=== PATIENT | female | born 1940 | race Caucasian/White ===

== ENCOUNTER 2017-06-10 15:10 | Inpatient (IN) | payer OTHER, SELFPAY ==
[2017-06-10 15:12] VITALS: BP 163/86; PULSE 65; RESP 16; TEMP 36.2; O2SAT 95; BMI 27.4
--- NOTE | 2017-06-10 16:34 | RAD_ITS ---
STUDY: X-RAY - RIGHT HAND REASON FOR EXAM: Female, 76 years old. INFECTION, DISTAL INDEX FINGER TECHNIQUE: 3 view(s) of the hand. COMPARISON: None. FINDINGS: There is prominent soft tissue swelling associated with the distal phalanx of the second digit. There is severe osteoarthritic change in association with the distal interphalangeal joint with prominent osteophytes. I do not identify underlying osseous erosion. No definitive sign of osteomyelitis. The remainder of the interphalangeal joints demonstrate diffuse joint space loss with marginal osteophytes most evident in association with the distal interphalangeal joints of the fourth and fifth digits. At the metacarpal phalangeal joints are preserved. The visualized carpus is unremarkable. The visualized radiocarpal articulation is unremarkable. Vascular calcifications are present. Bony demineralization noted. RAD/Hand Min 3 Views IMPRESSION: Severe osteoarthritic change of the distal interphalangeal joint of the second digit. I do not identify osseous erosion to suggest underlying osteomyelitis though MRI or three-phase bone scan would have greater sensitivity to detection of underlying osteomyelitis. See above. Electronically Signed: Charla Negrete MD at 17:50 EDT Tel , Service support ,
--- NOTE | 2017-06-10 16:36 | ED.VISSUMM ---
- ER Visit Summary Date of Service: 06/10/17 Chief Complaint: Finger infection History of Present Illness: The patient is a 76 F who states that 2 weeks ago she had a break in her right index fingernail. She was making the bed and caught and tore the nail. She remove the nail completely. Since that time she has been doing Betadine and water soaks. She states now the finger is swollen red warm there is a red streak going up her arm. She notes no drainage. She notes the tip is white. She went to the urgent care in the doctor there told her she may have exposed bone and sent her to the emergency room. In December of last year she had a total knee replacement by Dr. Begum. She is a diabetic and has lost several toes to staph infection. She also notes a history of MRSA, rheumatoid arthritis. Physical Examination: Afebrile vital signs are stable Gen: Well-nourished well-developed Head: Normocephalic atraumatic Eyes: Perrl EOMI ENT: TMs clear no rhinorrhea moist mucous membranes Neck: Supple no lymphadenopathy no JVD nontender CVS: Regular rate rhythm no murmurs normal S1-S2 Respiratory: No distress clear to auscultation bilaterally chest nontender Abdomen: Soft nontender nondistended normal bowel sounds no masses Back: Nontender Extremity: Right index finger is swollen. The tip of the finger is white. There is lymphangitic streaking going up the dorsum of the right forearm. There is increased warmth. There is a small eschar right at the tip of the finger. The right knee has a well-healed incision. There is no overlying erythema and the joint is nontender. Skin: Please see finger exam Neuro: alert orientated ?3 CN II-XII intact normal strength sensation reflexes gait cerebellar Psych: Normal affect normal mood Test Results: CBC with a white count 13.4. Creatinine 1.27. Blood cultures were obtained. CRP at 49.5. Wound culture and MRSA by PCR obtained from the wound. Hand films demonstrated no air or obvious osteomyelitis. Emergency Department Course and Treatment: She received a dose of IV vancomycin after cultures. I spoke with Dr. Raya for was to orthopedics covering for Dr. Begum, Dr. Jimenez for plastic surgery, Dr. Mccallum. He will be admitted to internal medicine with Dr. Jimenez consulting. Impression: 1. Right index finger diabetic infection with lymphangitis This note was generated with [employer] dictation software. It may contain incorrect words, spelling, and punctuation that were not noted in review of the chart prior to signing ED Disposition - Plan for ED Patient: Chief Complaint: Wound Referrals: Kelsy Mensah MD [Primary Care Provider] -
[2017-06-10 17:30] LABS: Absolute Lymphocyte Count 3.44 X10^3/ul (0.83-4.51); Absolute Neutrophil Count 8.4 X10^3/uL (2.0-7.7); Basophil# 0.02 X10^3/uL; Basophil% 0.1 % (0-1); Eosinophil# 0.15 X10^3/uL; Eosinophils% 1.1 % (0-5); Hematocrit 41.8 % (37-47); Hemoglobin 14.2 g/dl (12.0-15.0); Lymphocyte # 3.44 X10^3/ul (4.0); Lymphocyte % 25.7 % (19-41); Mean Corpuscular Hgb 29.7 pg (27.0-32.0); Mean Corpuscular Volume 87.4 fL (81-99); Mean Platelet Vol. 10.9 fl (6.2-12.0); Monocyte# 1.36 X10^3/uL; Monocyte% 10.1 % (0-10); Neutrophil # 8.39 X10^3/uL (2.7-7.7); Neutrophil % 62.6 % (47-70); POSITIVE COUNT NO; POSITIVE DIFFERENTIAL NO; POSITIVE MORPHOLOGY NO; Platelet Count 213 K/mm3 (150-450); RBC Distribution Width CV 14.1 % (11.6-14.6); RBC Distribution Width SD 44.9 fl (35.1-43.9); Red Blood Count 4.78 M/mm3 (4.2-5.4); White Blood Count 13.4 K/mm3 (4.4-11.0)
[2017-06-10 17:39] LABS: ALB/GLOB Ratio 0.9 RATIO (0.9-2.4); AST(SGOT) 16 U/L (15-37); Alanine Aminotransfer ALT/SGPT 18 U/L (13-56); Albumin, Serum 3.7 g/dL (3.2-5.0); Alkaline Phosphatase 73 U/L (45-117); Anion Gap 10 (5-15); BUN 20 mg/dL (7-18); BUN/Creat Ratio 15.7 RATIO (10-20); Calcium,Total 9.4 mg/dL (8.5-10.1); Chloride 104 mmol/L (98-107); Creatinine, Serum 1.27 mg/dL (0.55-1.02); EST Glomerular Filtration Rate 43 mL/min (>60); Est Glom Filt Rate - Afr Amer 53 mL/min (>60); Estimated Creatinine Clearance 33.91 ml/min; Globulin 4.3 g/dL (2.2-4.2); Glucose 134 mg/dL (74-106); Potassium 3.9 mmol/L (3.5-5.1); Sodium Level 138 mmol/L (136-145)
[2017-06-10 17:54] LABS: Erythrocyte Sedimentation Rate 45 mm/hr (0-30)
[2017-06-10 18:29] VITALS: BP 192/68; PULSE 61; RESP 14; TEMP 36.8; O2SAT 96
--- NOTE | 2017-06-10 18:29 | ED.RN ---
182-Patient and family member both state that BP elevates when in ED due to nerves and that it always comes down before she leaves. Also states normally takes Atenolol around 1700 hrs.
[2017-06-10 19:17] LABS: M R Staph aureus DNA By PCR Negative (Negative); Probe Check PASS; Staph aureus DNA By PCR NEGATIVE (Negative)
[2017-06-10 19:33] VITALS: BMI 27.5
--- NOTE | 2017-06-10 19:39 | PCM.HP.STD ---
Problem List (1) Cellulitis of right index finger Status: Acute (2) CKD (chronic kidney disease), stage III Status: Chronic (3) CAD (coronary artery disease) Status: Chronic Qualifiers: Coronary Disease-Associated Artery/Lesion type: bypass graft [place] vs. transplanted heart: [place] heart Associated angina: without angina Qualified Code(s): I25.810 - Atherosclerosis of coronary artery bypass graft(s) without angina pectoris (4) Osteoarthritis Status: Chronic Qualifiers: Osteoarthritis location: unspecified site Osteoarthritis type: primary Qualified Code(s): M19.91 - Primary osteoarthritis, unspecified site (5) Hypertension Status: Chronic (6) Peripheral arterial disease Status: Chronic (7) Type 2 diabetes mellitus Status: Chronic History of Present Illness Date of Admission: 06/10/17 Chief Complaint: Right index finger swelling and erythema The patient is a 76 year old F who approximately 10 days ago tore part of her right index finger fingernail on a bed sheet. She clipped it off but there was a wound. Patient was treating it with Betadine. Yesterday it became much more erythematous and swollen that persisted today. 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 Patient presented to the emergency room for concern for cellulitis. Patient was treated with IV vancomycin. Patient had a hand x-ray that showed severe osteoarthritis of the DIP no obvious ostium mellitus was noted. [] Past Medical History Past Medical History (Chronic Problems): Chronic Problems CKD (chronic kidney disease), stage III (Chronic) CAD (coronary artery disease) (Chronic) Osteoarthritis (Chronic) CKD (chronic kidney disease) (Chronic) History of MRSA infection (Chronic) Osteomyelitis of left foot (Chronic) Hypertension (Chronic) Peripheral arterial disease (Chronic) Type 2 diabetes mellitus (Chronic) Rheumatoid arthritis (Chronic) Allergies adhesive Allergy (Verified 12/09/16 10:08) Unknown red skin, uses paper tape and is okay with this atorvastatin calcium [From Lipitor] Allergy (Verified 12/09/16 10:08) Unknown joint pain bacitracin [From Neosporin ([id number])] Allergy (Verified 12/09/16 10:08) Unknown rash bacitracin zinc [From Neosporin ([id number])] Allergy (Verified 12/09/16 10:08) Unknown rash fenofibrate nanocrystallized [From Tricor] Allergy (Verified 12/09/16 10:08) Unknown upset gi or muscle pain fenofibrate,micronized [From Tricor] Allergy (Verified 12/09/16 10:08) Unknown flurbiprofen Allergy (Verified 12/09/16 10:08) Unknown upset stomach gemfibrozil Allergy (Verified 12/09/16 10:08) Unknown upset stomach glipizide [From Glucotrol] Allergy (Verified 12/09/16 10:08) Unknown dizzy, upset gi neomycin sulfate [From Neosporin ([id number])] Allergy (Verified 12/09/16 10:08) Unknown rash polymyxin B [From Neosporin ([id number])] Allergy (Verified 12/09/16 10:08) Unknown rash pravastatin Adverse Reaction (Verified 12/09/16 11:56) Other MUSCLE PAIN Home Medications: Ambulatory Orders Medication Instructions Recorded Amlodipine [Norvasc] 5 mg PO DAILY 08/26/15 Insulin Glargine [Lantus SoloStar 12 units SC QHS 08/26/15 Pen] Lisinopril [Zestril] 20 mg PO DAILY 08/26/15 Metformin HCl [Glucophage] 500 mg PO TIDCM 08/26/15 glyBURIDE [Micronase] 5 mg PO DAILY@0800 08/26/15 Ascorbic Acid [Vitamin C] 500 mg PO DAILY 12/09/16 Atenolol [Tenormin (beta charlie)] 50 mg PO BID 12/09/16 Cholecalciferol (Vitamin D3) 1,000 unit PO DAILY 12/09/16 [Vitamin D3] Cyanocobalamin (Vitamin B-12) 1,000 mcg PO DAILY 12/09/16 [Vitamin B-12] Multivitamin [Multiple Vitamins] 1 each PO DAILY 12/09/16 [place]-3 Fatty Acids/Fish Oil 1 each PO BID 12/09/16 [[place] 3 Fish Oil Softgel] Furosemide [Lasix] 20 mg PO QODAY 12/25/16 Acetaminophen [Tylenol] 1,000 mg PO Q8 #90 tablet 12/26/16 Aspirin 325 mg PO BIDCM #30 tablet 12/26/16 Famotidine [Pepcid] 20 mg PO DAILY #30 tablet 12/26/16 Oxycodone [Oxyir] 5 - 10 mg PO Q4H PRN PRN #80 tablet 12/26/16 Senna/Docusate Sodium [Senokot-S] 2 tablet PO BID #20 tablet 12/26/16 Surgical History: cataract, cholecystectomy, hysterectomy, total knee arthroplasty - Right, - - Foot bunion surgery bilaterally, hammertoe surgery, left carotid endarterectomy, peripheral vascular disease surgery both legs, recent left foot partial TMA. Left great toe amputation. 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 Denies: Head Aches, Sinus Congestion, Sinus Drainage Cardiovascular: Denies: Chest Pain, Palpitations Respiratory: Denies: Cough, Shortness of breath at rest, Sputum production Gastrointestinal: Denies: Abdominal Pain, Nausea, Vomiting Genitourinary: Denies: Dysuria Musculoskeletal: Denies: Joint Pain, Joint Tenderness Skin: Reports: - - Erythema and swelling of the distal right index finger., - - Redness in upper extremities more so on the right and states that she gets this when she gets her blood pressure checked. Patient states that she had a sleeve for gown her blood pressure was checked and but does get this when she does have the blood pressure checks. No itching. Neurological: Reports: - - Paresthesias in her fingers and toes chronically Psychiatric: Denies: Anxiety, Depression Endocrine: Denies: Change in Body Habitus Hematologic/ Lymphatic: Denies: Easy Bruising, Easy Bleeding, Hx of blood clot VTE Information - Inpt Only VTE Present on Admission: No VTE Pharm Prophylaxis ordered?: Yes Patient Problems: Active and Suspected Problems Cellulitis of right index finger (Acute) - Physical Exam General: Alert, Cooperative, No apparent distress HEENT: Atraumatic, Normocephalic Oral: Moist Mucosa, No Gingival or Mucosal Lesions/ Ulcerations Neck: No Nodes, Thyroid Normal Size and Texture Lungs: Clear to auscultation, Normal air movement, No rhonchi, No wheeze Cardiovascular: Regular rate, Regular Rhythm, Normal S1, Normal S2, No murmurs Abdomen: Bowel Sounds Present, Soft, Non Tender, Non-Distended, No Hepato-splenomegaly Extremities: No Calf Tenderness, Edema - The distal right index finger. Skin: - - Erythema and swelling of the distal right index finger with lymphangitis upon the volar aspects of the arm. Slight erythema on bilateral upper extremities that was almost petechial in nature. Seem to be an area of demarcation on the right upper extremity where her gown sleeve was. Patient stated that it developed after her blood pressure cuff inflated and deflated. States that she has had this before. Musculoskeletal: No Tenderness to Palpation of Joints or Extremities, No Muscle Wasting, Arthritic Changes Neurological: Sensory exam intact to light touch and pain, Coordination normal Psych/Mental Status: Normal Affect, Appropriate Vital Signs Temp Pulse Resp BP Pulse Ox 36.8 C 61 14 192/68 H 96 06/10/17 18:29 06/10/17 18:29 06/10/17 18:29 06/10/17 18:29 06/10/17 18:29 Oxygen Delivery Method Room Air Weight: 74.843 kg Body Mass Index (BMI) 27.4 Finger Stick Blood Glucose 235 Laboratory Tests Past 24 Hrs 06/10/17 06/10/17 06/10/17 17:00 17:00 17:22 WBC 13.4 H RBC 4.78 Hgb 14.2 Hct 41.8 MCV 87.4 MCH 29.7 MCHC 34.0 RDW 14.1 RDW Differential 44.9 H Plt Count 213 MPV 10.9 Immature Gran % (Auto) 0.400 Neut % (Auto) 62.6 Lymph % (Auto) 25.7 Mccormick % (Auto) 10.1 H Eos % (Auto) 1.1 Baso % (Auto) 0.1 Absolute Neuts (auto) 8.4 H Absolute Lymphs (auto) 3.44 Total Counted Not Reportable ESR 45 H Sodium 138 Potassium 3.9 Chloride 104 Carbon Dioxide 24.0 Anion Gap 10 BUN 20 H Creatinine 1.27 H Estim Creat Clear Calc 33.91 Est GFR (MDRD) Af Amer 53 L Est GFR (MDRD) Non-Af 43 L BUN/Creatinine Ratio 15.7 Glucose 134 H Calcium 9.4 Total Bilirubin 1.00 AST 16 ALT 18 Alkaline Phosphatase 73 C-React Prot Ext Range 49.50 H Total Protein 8.0 Albumin 3.7 Globulin 4.3 H Albumin/Globulin Ratio 0.9 S.aureus Protein A PCR NEGATIVE MRSA (PCR) Negative Clinical Impression(s) from Imaging Studies Hand X-Ray 06/10/17 16:34 IMPRESSION: Severe osteoarthritic change of the distal interphalangeal joint of the second digit. I do not identify osseous erosion to suggest underlying osteomyelitis though MRI or three-phase bone scan would have greater sensitivity to detection of underlying osteomyelitis. See above. Electronically Signed: Charla Negrete MD at 17:50 EDT Tel , Service support , Assessment/Plan Active and Suspected Problems Cellulitis of right index finger (Acute) 1. Right index finger cellulitis Given the rapid onset, concern is for MRSA, to which patient has had before in her toes. Patient will continue with vancomycin for now. Follow-up cultures when they come back and adjust antibiotics accordingly. Given the significant swelling the patient has a would be concerning for osteomyelitis. I recommended an MRI for the patient to identify that to see if there is osteomyelitis and if surgery would be necessary. Dr. Jimenez, of plastics, has been notified by the ER and I will see the patient in consultation. 2. Chronic kidney disease stage III: Stable at this time. Avoid nephrotoxic agents. 3. Diabetes mellitus type 2 Continue with Levemir, metformin and glyburide. Add moderate dose sliding scale as well. 4. DVT prophylaxis with low molecular weight heparin 5. Advanced care planning: Discussed the patient in regards to aggressiveness of care in regards to acute respiratory failure cardiopulmonary arrest. Patient wishes to be full CODE STATUS and is okay with mechanical ventilation. This note was generated with [employer] dictation software. It may contain incorrect words, spelling, and punctuation that were not noted in checking the note before signing. Code Visit Inpatient E&M: 76318 Init Hosp L3
[2017-06-10 19:47] VITALS: BP 167/63; PULSE 59; RESP 16; O2SAT 97
--- NOTE | 2017-06-10 19:49 | HP.PCM_ITS ---
Problem List (1) Cellulitis of right index finger Status: Acute (2) CKD (chronic kidney disease), stage III Status: Chronic (3) CAD (coronary artery disease) Status: Chronic Qualifiers: Coronary Disease-Associated Artery/Lesion type: bypass graft [place] vs. transplanted heart: [place] heart Associated angina: without angina Qualified Code(s): I25.810 - Atherosclerosis of coronary artery bypass graft(s) without angina pectoris (4) Osteoarthritis Status: Chronic Qualifiers: Osteoarthritis location: unspecified site Osteoarthritis type: primary Qualified Code(s): M19.91 - Primary osteoarthritis, unspecified site (5) Hypertension Status: Chronic (6) Peripheral arterial disease Status: Chronic (7) Type 2 diabetes mellitus Status: Chronic History of Present Illness Date of Admission: 06/10/17 Chief Complaint: Right index finger swelling and erythema The patient is a 76 year old F who approximately 10 days ago tore part of her right index finger fingernail on a bed sheet. She clipped it off but there was a wound. Patient was treating it with Betadine. Yesterday it became much more erythematous and swollen that persisted today. 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 Patient presented to the emergency room for concern for cellulitis. Patient was treated with IV vancomycin. Patient had a hand x-ray that showed severe osteoarthritis of the DIP no obvious ostium mellitus was noted. [] Past Medical History Past Medical History (Chronic Problems): Chronic Problems CKD (chronic kidney disease), stage III (Chronic) CAD (coronary artery disease) (Chronic) Osteoarthritis (Chronic) CKD (chronic kidney disease) (Chronic) History of MRSA infection (Chronic) Osteomyelitis of left foot (Chronic) Hypertension (Chronic) Peripheral arterial disease (Chronic) Type 2 diabetes mellitus (Chronic) Rheumatoid arthritis (Chronic) Allergies adhesive Allergy (Verified 12/09/16 10:08) Unknown red skin, uses paper tape and is okay with this atorvastatin calcium [From Lipitor] Allergy (Verified 12/09/16 10:08) Unknown joint pain bacitracin [From Neosporin ([id number])] Allergy (Verified 12/09/16 10:08) Unknown rash bacitracin zinc [From Neosporin ([id number])] Allergy (Verified 12/09/16 10: 08) Unknown rash fenofibrate nanocrystallized [From Tricor] Allergy (Verified 12/09/16 10:08) Unknown upset gi or muscle pain fenofibrate,micronized [From Tricor] Allergy (Verified 12/09/16 10:08) Unknown flurbiprofen Allergy (Verified 12/09/16 10:08) Unknown upset stomach gemfibrozil Allergy (Verified 12/09/16 10:08) Unknown upset stomach glipizide [From Glucotrol] Allergy (Verified 12/09/16 10:08) Unknown dizzy, upset gi neomycin sulfate [From Neosporin ([id number])] Allergy (Verified 12/09/16 10: 08) Unknown rash polymyxin B [From Neosporin ([id number])] Allergy (Verified 12/09/16 10:08) Unknown rash pravastatin Adverse Reaction (Verified 12/09/16 11:56) Other MUSCLE PAIN Home Medications: Ambulatory Orders Medication Instructions Recorded Amlodipine [Norvasc] 5 mg PO DAILY 08/26/15 Insulin Glargine [Lantus SoloStar 12 units SC QHS 08/26/15 Pen] Lisinopril [Zestril] 20 mg PO DAILY 08/26/15 Metformin HCl [Glucophage] 500 mg PO TIDCM 08/26/15 glyBURIDE [Micronase] 5 mg PO DAILY@0800 08/26/15 Ascorbic Acid [Vitamin C] 500 mg PO DAILY 12/09/16 Atenolol [Tenormin (beta charlie)] 50 mg PO BID 12/09/16 Cholecalciferol (Vitamin D3) 1,000 unit PO DAILY 12/09/16 [Vitamin D3] Cyanocobalamin (Vitamin B-12) 1,000 mcg PO DAILY 12/09/16 [Vitamin B-12] Multivitamin [Multiple Vitamins] 1 each PO DAILY 12/09/16 [place]-3 Fatty Acids/Fish Oil 1 each PO BID 12/09/16 [[place] 3 Fish Oil Softgel] Furosemide [Lasix] 20 mg PO QODAY 12/25/16 Acetaminophen [Tylenol] 1,000 mg PO Q8 #90 tablet 12/26/16 Aspirin 325 mg PO BIDCM #30 tablet 12/26/16 Famotidine [Pepcid] 20 mg PO DAILY #30 tablet 12/26/16 Oxycodone [Oxyir] 5 - 10 mg PO Q4H PRN PRN #80 tablet 12/26/16 Senna/Docusate Sodium [Senokot-S] 2 tablet PO BID #20 tablet 12/26/16 Surgical History: cataract, cholecystectomy, hysterectomy, total knee arthroplasty - Right, - - Foot bunion surgery bilaterally, hammertoe surgery, left carotid endarterectomy, peripheral vascular disease surgery both legs, recent left foot partial TMA. Left great toe amputation. Right third toe amputation Psychiatric History: No pertinent psych hx [employer] History: No pertinent [employer]RA[employer] history Lives: With Family Smoking Status: Never smoker Tobacco Use: Non-smoker Alcohol: None Drugs: None - *Family History Maternal History Items: No pertinent history Paternal History Items: No pertinent history Sibling History Items: No pertinent history Review of Systems Constitutional: Denies: Chills, Fever, Weight Change Eyes: Denies: Blurred vision, Double vision HEENT: Reports: Hearing Changes - Hard of hearing out of the left ear. Denies: Head Aches, Sinus Congestion, Sinus Drainage Cardiovascular: Denies: Chest Pain, Palpitations Respiratory: Denies: Cough, Shortness of breath at rest, Sputum production Gastrointestinal: Denies: Abdominal Pain, Nausea, Vomiting Genitourinary: Denies: Dysuria Musculoskeletal: Denies: Joint Pain, Joint Tenderness Skin: Reports: - - Erythema and swelling of the distal right index finger., - - Redness in upper extremities more so on the right and states that she gets this when she gets her blood pressure checked. Patient states that she had a sleeve for gown her blood pressure was checked and but does get this when she does have the blood pressure checks. No itching. Neurological: Reports: - - Paresthesias in her fingers and toes chronically Psychiatric: Denies: Anxiety, Depression Endocrine: Denies: Change in Body Habitus Hematologic/ Lymphatic: Denies: Easy Bruising, Easy Bleeding, Hx of blood clot VTE Information - Inpt Only VTE Present on Admission: No VTE Pharm Prophylaxis ordered?: Yes Patient Problems: Active and Suspected Problems Cellulitis of right index finger (Acute) - Physical Exam General: Alert, Cooperative, No apparent distress HEENT: Atraumatic, Normocephalic Oral: Moist Mucosa, No Gingival or Mucosal Lesions/ Ulcerations Neck: No Nodes, Thyroid Normal Size and Texture Lungs: Clear to auscultation, Normal air movement, No rhonchi, No wheeze Cardiovascular: Regular rate, Regular Rhythm, Normal S1, Normal S2, No murmurs Abdomen: Bowel Sounds Present, Soft, Non Tender, Non-Distended, No Hepato- splenomegaly Extremities: No Calf Tenderness, Edema - The distal right index finger. Skin: - - Erythema and swelling of the distal right index finger with lymphangitis upon the volar aspects of the arm. Slight erythema on bilateral upper extremities that was almost petechial in nature. Seem to be an area of demarcation on the right upper extremity where her gown sleeve was. Patient stated that it developed after her blood pressure cuff inflated and deflated. States that she has had this before. Musculoskeletal: No Tenderness to Palpation of Joints or Extremities, No Muscle Wasting, Arthritic Changes Neurological: Sensory exam intact to light touch and pain, Coordination normal Psych/Mental Status: Normal Affect, Appropriate Vital Signs Temp Pulse Resp BP Pulse Ox 36.8 C 61 14 192/68 H 96 06/10/17 18:29 06/10/17 18:29 06/10/17 18:29 06/10/17 18:29 06/10/17 18:29 Oxygen Delivery Method Room Air Weight: 74.843 kg Body Mass Index (BMI) 27.4 Finger Stick Blood Glucose 235 Laboratory Tests Past 24 Hrs 06/10/17 06/10/17 06/10/17 17:00 17:00 17:22 WBC 13.4 H RBC 4.78 Hgb 14.2 Hct 41.8 MCV 87.4 MCH 29.7 MCHC 34.0 RDW 14.1 RDW Differential 44.9 H Plt Count 213 MPV 10.9 Immature Gran % (Auto) 0.400 Neut % (Auto) 62.6 Lymph % (Auto) 25.7 Dunn % (Auto) 10.1 H Eos % (Auto) 1.1 Baso % (Auto) 0.1 Absolute Neuts (auto) 8.4 H Absolute Lymphs (auto) 3.44 Total Counted Not Reportable ESR 45 H Sodium 138 Potassium 3.9 Chloride 104 Carbon Dioxide 24.0 Anion Gap 10 BUN 20 H Creatinine 1.27 H Estim Creat Clear Calc 33.91 Est GFR (MDRD) Af Amer 53 L Est GFR (MDRD) Non-Af 43 L BUN/Creatinine Ratio 15.7 Glucose 134 H Calcium 9.4 Total Bilirubin 1.00 AST 16 ALT 18 Alkaline Phosphatase 73 C-React Prot Ext Range 49.50 H Total Protein 8.0 Albumin 3.7 Globulin 4.3 H Albumin/Globulin Ratio 0.9 S.aureus Protein A PCR NEGATIVE MRSA (PCR) Negative Clinical Impression(s) from Imaging Studies Hand X-Ray 06/10/17 16:34 IMPRESSION: Severe osteoarthritic change of the distal interphalangeal joint of the second digit. I do not identify osseous erosion to suggest underlying osteomyelitis though MRI or three-phase bone scan would have greater sensitivity to detection of underlying osteomyelitis. See above. Electronically Signed: Charla Negrete MD at 17:50 EDT Tel , Service support , Assessment/Plan Active and Suspected Problems Cellulitis of right index finger (Acute) 1. Right index finger cellulitis * Given the rapid onset, concern is for MRSA, to which patient has had before in her toes. * Patient will continue with vancomycin for now. Follow-up cultures when they come back and adjust antibiotics accordingly. * Given the significant swelling the patient has a would be concerning for osteomyelitis. I recommended an MRI for the patient to identify that to see if there is osteomyelitis and if surgery would be necessary. * Dr. Jimenez, of plastics, has been notified by the ER and I will see the patient in consultation. 2. Chronic kidney disease stage III: * Stable at this time. Avoid nephrotoxic agents. 3. Diabetes mellitus type 2 * Continue with Levemir, metformin and glyburide. * Add moderate dose sliding scale as well. 4. DVT prophylaxis with low molecular weight heparin 5. Advanced care planning: Discussed the patient in regards to aggressiveness of care in regards to acute respiratory failure cardiopulmonary arrest. Patient wishes to be full CODE STATUS and is okay with mechanical ventilation. This note was generated with [employer] dictation software. It may contain incorrect words, spelling, and punctuation that were not noted in checking the note before signing. Code Visit Inpatient E&M: 62675 Init Hosp L3
[2017-06-10 19:57] VITALS: BMI 27.3
[2017-06-10 20:00] VITALS: BP 182/69; PULSE 60; RESP 16; TEMP 36.5; O2SAT 95
[2017-06-10] MEDS: Atenolol 50 MG Tablet PO (22:50)
[2017-06-10 23:28] VITALS: PULSE 60; RESP 16; O2SAT 95
[2017-06-10 23:45] LABS: Bedside Glucose 273 mg/dL (70-110)
[2017-06-11] VITALS (7 sets, daily range): BP systolic 152–180; BP diastolic 60–106; PULSE 57–61; RESP 16–18; TEMP 36.6–36.8; O2SAT 94–97; BMI 27.3
[2017-06-11] MEDS: Lisinopril 20 MG Tablet PO (05:39)
[2017-06-11] MEDS: amLODIPine 5 MG Tablet PO (05:40)
[2017-06-11] MEDS: Atenolol 50 MG Tablet PO ×2 (05:40→22:22)
[2017-06-11 06:01] LABS: Absolute Lymphocyte Count 2.25 X10^3/ul (0.83-4.51); Absolute Neutrophil Count 5.6 X10^3/uL (2.0-7.7); Basophil# 0.03 X10^3/uL; Basophil% 0.3 % (0-1); Eosinophil# 0.23 X10^3/uL; Eosinophils% 2.4 % (0-5); Hematocrit 38.3 % (37-47); Hemoglobin 13.4 g/dl (12.0-15.0); Lymphocyte # 2.25 X10^3/ul (4.0); Lymphocyte % 23.9 % (19-41); Mean Corpuscular Hgb 30.5 pg (27.0-32.0); Mean Platelet Vol. 10.8 fl (6.2-12.0); Monocyte% 13.8 % (0-10); Neutrophil # 5.55 X10^3/uL (2.7-7.7); Neutrophil % 59.2 % (47-70); Platelet Count 205 K/mm3 (150-450); RBC Distribution Width CV 13.9 % (11.6-14.6); RBC Distribution Width SD 43.7 fl (35.1-43.9); White Blood Count 9.4 K/mm3 (4.4-11.0)
[2017-06-11 06:05] LABS: POSITIVE COUNT NO; POSITIVE DIFFERENTIAL NO; POSITIVE MORPHOLOGY NO
[2017-06-11 06:46] LABS: Bedside Glucose 110 mg/dL (70-110)
--- NOTE | 2017-06-11 07:08 | MRI_ITS ---
STUDY: MRI RIGHT HAND REASON FOR EXAM: Female, 76 years old. RIGHT INDEX FINGER CELLULITIS; SWELLING/REDNESS DISTAL FINGER; TORE FINGERNAIL APPROX 10 DAYS AGO TECHNIQUE: Standardized fat and water weighted pulse sequences were obtained in all 3 orthogonal planes. LOC RIGHT COR T1 COR STIR SAG T2 Ax T1 Screen Save AX STIR COMPARISON: Plain film exam June 10, 2017 FINDINGS: Attention was made to the second digit. As previously noted there is severe osteoarthritic change in association with the distal interphalangeal joint of the first digit. On MRI it appears that there is decreased signal intensity within the bone marrow of the distal phalanx of this digit with increased signal intensity on STIR imaging. There appears diffuse soft tissue swelling. I also note that there is abnormal signal intensity seen in association with the distal phalanx of the fourth digit also noted is decreased in signal intensity on T1-weighted imaging and increased signal intensity on T2-weighted imaging. There appears diffuse soft tissue swelling. There is no evidence of a soft tissue abscess. The remainder the digits demonstrate normal bone marrow signal intensity though diffuse osteoarthritic changes are present with articular surface osteophytes in association with the interphalangeal joints. There also appears a small degenerative subchondral cyst of the head of the first metacarpal. MRI/Upper Ext/No Jt/ wo IMPRESSION: There are bone marrow changes seen associated with the distal phalanx of the second and fourth digits that are compatible with underlying osteomyelitis. Electronically Signed: Charla Negrete MD at 14:29 EDT Tel , Service support ,
[2017-06-11 08:30] LABS: Hemoglobin A1c 7.4 % (4.2-6.3)
[2017-06-11 09:27] LABS: Anion Gap 8 (5-15); BUN 18 mg/dL (7-18); BUN/Creat Ratio 14.5 RATIO (10-20); Calcium,Total 9.2 mg/dL (8.5-10.1); Chloride 106 mmol/L (98-107); Creatinine, Serum 1.24 mg/dL (0.55-1.02); EST Glomerular Filtration Rate 45 mL/min (>60); Est Glom Filt Rate - Afr Amer 54 mL/min (>60); Estimated Creatinine Clearance 34.73 ml/min; Glucose 147 mg/dL (74-106); Potassium 4.5 mmol/L (3.5-5.1); Prealbumin 20.1 mg/dL (20.0-40.0); Sodium Level 136 mmol/L (136-145)
--- NOTE | 2017-06-11 10:14 | PCM.RX.CS ---
Consult Pharmacy has been consulted to manage selected antiobiotic: Vancomycin Type of Consult: New start Suspected Infection: Skin/Soft tissue Prior Doses of Antibiotics Received/Current Regimen: Medications Vancomycin HCl (Vancomycin) 1,000 mg in 200 mls @ 200 mls/hr IV X1 ONE Stop: 06/10/17 17:59 Last Admin: 06/10/17 17:42 Dose: 200 mls/hr Labs: Sodium 136 mmol/L (136-145) 06/11/17 08:48 Potassium 4.5 mmol/L (3.5-5.1) 06/11/17 08:48 Chloride 106 mmol/L (98-107) 06/11/17 08:48 Carbon Dioxide 22.0 mmol/L (21.0-32.0) 06/11/17 08:48 Anion Gap 8 (5-15) 06/11/17 08:48 BUN 18 mg/dL (7-18) 06/11/17 08:48 Creatinine 1.24 mg/dL (0.55-1.02) H 06/11/17 08:48 Est GFR (MDRD) Af Amer 54 mL/min (>60) L 06/11/17 08:48 Est GFR (MDRD) Non-Af 45 mL/min (>60) L 06/11/17 08:48 BUN/Creatinine Ratio 14.5 RATIO (10-20) 06/11/17 08:48 Glucose 147 mg/dL (74-106) H 06/11/17 08:48 Weight used for dosin kg Estimated Creatinine Clearance: 35 mL/min Goal Trough: 10-15 mcg/mL Pharmacy Plan for Drug Dosing: Patient received vancomycin 1000mg IV x1, recommend to continue 1000mg IV q24h. Check prior to 4th dose. Pharmacy Service will continue to monitor and adjust dosing as required. Follow-Up Labs: Trough Vancomycin Labs to be done on [date and time ordered]: 06/13/17 @ 1300
[2017-06-11] MEDS: Senna/Docusate Sodium 1 Tablet 2 TABLET PO ×2 (11:52→22:22)
[2017-06-11] MEDS: Cyanocobalamin 500 MCG Tablet 1000 MCG PO (11:53)
[2017-06-11] MEDS: Ascorbic Acid 500 MG Tablet PO (11:53)
[2017-06-11] MEDS: Multivitamins,Therapeutic Tablet 1 TABLET PO (11:53)
[2017-06-11] MEDS: Enoxaparin 40 MG/0.4 ML Syringe SC (11:56)
[2017-06-11] MEDS: Famotidine 20 MG Tablet PO (11:56)
[2017-06-11] MEDS: Aspirin 325 MG Tablet PO ×2 (11:56→17:24)
--- NOTE | 2017-06-11 11:57 | CASEMGMT ---
RN CHAYO Face to Face with patient for initial transition planning/care coordination assessment. RN CM introduced self and role at [facility]. Patient lyingin bed, alert and oriented, family at bedside. Patient willing to participate in assessment and is able to answer all questions appropriately. Care providers, pharmacy, and demographics verified. See link attached. Patient wishes to discharge home, denies need for home health at this time. Patient states she has no further needs or concerns at this time. CM to follow for discharge planning needs that may arise. Disposition Plan: Patient to discharge home with family support and follow-up plans in place.
[2017-06-11 12:05] LABS: Bedside Glucose 221 mg/dL (70-110)
--- NOTE | 2017-06-11 13:58 | PCM.CONS.GEN ---
Reason for Consult Date of Consultation: 06/11/17 Reason for Consultation: Nonhealing infected diabetic ulcer right index finger tip. REFERRING PHYSICIAN: Dr. Bales. DATA GOVERNANCE CONSULTANT: Dr. Jimenez. History of Present Illness: The patient is a 76 year old F who tore part of her right index finger fingernail on a bed sheet about 2 weeks ago. She clipped it off but there was a wound. Patient was treating it with Betadine. Yesterday it became much more erythematous and swollen that persisted today and she came to the ED for evaluation. 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 In the ED the patient was treated with IV vancomycin. It was noted she had an ulceration at the tip of her right index finger. She is right hand dominant. Patient had a hand x-ray that showed severe osteoarthritis of the DIP and no obvious osteomyelitis was noted. MRI was done which was suspicious for osteomyelitis. I was asked to evaluate this patient for surgical options for treatment. Past Medical History Past Medical History (Chronic Problems): Chronic Problems (Last Updated 06/18/17 @ 11:03 by Rhoda Resendez) CKD (chronic kidney disease), stage III (Chronic) CAD (coronary artery disease) (Chronic) Osteoarthritis (Chronic) CKD (chronic kidney disease) (Chronic) History of MRSA infection (Chronic) Osteomyelitis of left foot (Chronic) Hypertension (Chronic) Peripheral arterial disease (Chronic) Type 2 diabetes mellitus (Chronic) Rheumatoid arthritis (Chronic) Allergies adhesive Allergy (Verified 12/09/16 10:08) Unknown red skin, uses paper tape and is okay with this atorvastatin calcium [From Lipitor] Allergy (Verified 12/09/16 10:08) Unknown joint pain bacitracin [From Neosporin ([id number])] Allergy (Verified 12/09/16 10:08) Unknown rash bacitracin zinc [From Neosporin ([id number])] Allergy (Verified 12/09/16 10:08) Unknown rash fenofibrate nanocrystallized [From Tricor] Allergy (Verified 12/09/16 10:08) Unknown upset gi or muscle pain fenofibrate,micronized [From Tricor] Allergy (Verified 12/09/16 10:08) Unknown flurbiprofen Allergy (Verified 12/09/16 10:08) Unknown upset stomach gemfibrozil Allergy (Verified 12/09/16 10:08) Unknown upset stomach glipizide [From Glucotrol] Allergy (Verified 12/09/16 10:08) Unknown dizzy, upset gi neomycin sulfate [From Neosporin ([id number])] Allergy (Verified 12/09/16 10:08) Unknown rash polymyxin B [From Neosporin ([id number])] Allergy (Verified 12/09/16 10:08) Unknown rash pravastatin Adverse Reaction (Verified 12/09/16 11:56) Other MUSCLE PAIN Current Medications Acetaminophen (Tylenol) 1,000 mg PO Q8H PRN PRN Amlodipine Besylate (Norvasc) 5 mg PO DAILY [facility] Ascorbic Acid (Vitamin C) 500 mg PO DAILY [facility] Aspirin (Aspirin) 325 mg PO BIDCM [facility] Atenolol (Tenormin (Beta Joselito)) 50 mg PO BID [facility] Cholecalciferol (Vitamin D) 1,000 unit PO DAILY [facility] Cyanocobalamin (Vitamin B12) 1,000 mcg PO DAILY [facility] Enoxaparin Sodium (Lovenox) 40 mg SC DAILY@1000 [facility] Famotidine (Pepcid) 20 mg PO DAILY [facility] Furosemide (Lasix) 20 mg PO QODAY [facility] Glucagon () 1 mg IM .X1 PRN Glyburide (Micronase) 5 mg PO DAILY@0800 [facility] Vancomycin HCl (Vancomycin) 1,000 mg in 200 mls @ 200 mls/hr IV Q24H [facility] Insulin Aspart (Novolog Flexpen (Bkc)) 0 units SC TIDAC [facility] Insulin Detemir (Levemir (Bkc)) 12 units SC QHS [facility] Lisinopril (Zestril) 20 mg PO DAILY [facility] Magnesium Hydroxide (Milk Of Magnesia) 30 ml PO DAILY PRN Metformin HCl (Glucophage) 500 mg PO TIDCM [facility] Multivitamins (Multivitamin) 1 tablet PO DAILY@0800 [facility] Ondansetron HCl (Zofran) 4 mg IV Q8H PRN Oxycodone HCl (Oxyir) 5 mg PO Q4H PRN Senna/Docusate Sodium (Senokot-S, Shakira-Colace) 2 tablet PO BID [facility] PAST MEDICAL HISTORY Chronic kidney disease. CAD. Osteoarthritis. MRSA. Osteomyelitis left foot. Hypertension. PAD. Diabetes mellitus. 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 Home Medications: Ambulatory Orders Medication Instructions Recorded Insulin Glargine [Lantus SoloStar 12 units SC QHS 08/26/15 Pen] Lisinopril [Zestril] 20 mg PO DAILY 08/26/15 Metformin HCl [Glucophage] 500 mg PO TIDCM 08/26/15 glyBURIDE [Micronase] 5 mg PO DAILY@0800 08/26/15 Ascorbic Acid [Vitamin C] 500 mg PO DAILY 12/09/16 Atenolol [Tenormin (beta joselito)] 50 mg PO BID 12/09/16 Cholecalciferol (Vitamin D3) 1,000 unit PO DAILY 12/09/16 [Vitamin D3] Cyanocobalamin (Vitamin B-12) 1,000 mcg PO DAILY 12/09/16 [Vitamin B-12] Multivitamin [Multiple Vitamins] 1 ea PO DAILY 12/09/16 [place]-3 Fatty Acids/Fish Oil 1 ea PO BID 12/09/16 [[place] 3 Fish Oil Softgel] Furosemide [Lasix] 20 mg PO QODAY 12/25/16 Acetaminophen [Tylenol] 1,000 mg PO Q8H PRN PRN 06/10/17 Aspirin 81 mg PO 06/11/17 Amlodipine [Norvasc] 10 mg PO DAILY #30 tab 06/13/17 Amoxicillin/Potassium Clav 1 ea PO BID #10 tab 06/13/17 [Augmentin 875-125 Tablet] Doxycycline 100 mg PO BID #10 cap 06/13/17 Oxycodone HCl/Acetaminophen 1 - 2 tab PO 4X/DAY PRN PRN 5 Days 06/13/17 [Percocet 5/325] #40 tab Surgical History: appendectomy, cataract, cholecystectomy, coronary bypass surgery, hysterectomy - with BSO., total knee arthroplasty - Right, tonsillectomy, - - Foot bunion surgery bilaterally, hammertoe surgery, left carotid endarterectomy, peripheral vascular disease surgery both legs with stent on the right. Left great toe amputation. Right third toe amputation. Psychiatric History: No pertinent psych hx USER SUPPORT SPECIALIST History: No pertinent USER SUPPORT SPECIALIST history Lives: With Family Smoking Status: Never smoker Tobacco Use: Non-smoker Alcohol: None Drugs: None - *Family History Maternal History Items: No pertinent history Paternal History Items: No pertinent history Sibling History Items: No pertinent history Review of Systems Comment: Constitutional: Denies: Chills, Fever, Weight Change. Eyes: Denies: Blurred vision, Double vision. 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 Denies: Head Aches, Sinus Congestion, Sinus Drainage. Cardiovascular: Denies: Chest Pain, Palpitations. Respiratory: Denies: Cough, Shortness of breath at rest, Sputum production. Gastrointestinal: Denies: Abdominal Pain, Nausea, Vomiting. Genitourinary: Denies: Dysuria. Musculoskeletal: Denies: Joint Pain, Joint Tenderness. Skin: Reports: - - Erythema and swelling of the distal right index finger., - - Redness in upper extremities more so on the right and states that she gets this when she gets her blood pressure checked. Patient states that she had a sleeve for gown her blood pressure was checked and but does get this when she does have the blood pressure checks. No itching. Neurological: Reports: - - Paresthesias in her fingers and toes chronically. Psychiatric: Denies: Anxiety, Depression. Endocrine: Denies: Change in Body Habitus. Hematologic/ Lymphatic: Denies: Easy Bruising, Easy Bleeding, Hx of blood clot - Physical Exam General: Alert, Cooperative. HEENT: PERRL. EOMI. Oral: Moist Mucosa. Neck: Throat is clear. supple and nontender. No cervical adenopathy. Lungs: Clear to auscultation. Cardiovascular: Regular rate, Regular Rhythm. Abdomen: Soft, Non-Distended. Extremities: No clubbing and no cyanosis. Some swelling at distal tip right index finger. Skin: - - There is an ulceration at tip of right index finger that palpates down to the bone. Nail plate is deformed. Mild tenderness. No purulent drainage noted. The DIP joint is swollen from this localized infection and underlying arthritis. Range of motion intact and nontender. Fingers are warm with good capillary refill. Radial pulses are palpable. No axillary adenopathy. Neurological: CN II - XII grossly intact. Psych/Mental Status: Normal Affect, Appropriate Vital Signs Temp Pulse Resp BP Pulse Ox 97.8 F 57 L 18 160/75 H 94 06/11/17 11:42 06/11/17 11:44 06/11/17 11:42 06/11/17 11:42 06/11/17 11:42 Oxygen Delivery Method Room Air Weight: 164 lb 7.437 oz Body Mass Index (BMI) 27.3 Intake and Output for Last 24 Hours 06/09/17 06/10/17 06/11/17 23:59 23:59 23:59 Intake Total 1200 / 1200 Output Total 750 / 750 Balance 450 / 450 Laboratory Tests Past 24 Hrs 06/11/17 06/11/17 06/11/17 05:28 05:28 08:48 WBC 9.4 RBC 4.40 Hgb 13.4 Hct 38.3 MCV 87.0 MCH 30.5 MCHC 35.0 RDW 13.9 RDW Differential 43.7 Plt Count 205 MPV 10.8 Immature Gran % (Auto) 0.400 Neut % (Auto) 59.2 Lymph % (Auto) 23.9 [place] % (Auto) 13.8 H Eos % (Auto) 2.4 Baso % (Auto) 0.3 Absolute Neuts (auto) 5.6 Absolute Lymphs (auto) 2.25 Total Counted Not Reportable Sodium 136 Potassium 4.5 Chloride 106 Carbon Dioxide 22.0 Anion Gap 8 BUN 18 Creatinine 1.24 H Estim Creat Clear Calc 34.73 Est GFR (MDRD) Af Amer 54 L Est GFR (MDRD) Non-Af 45 L BUN/Creatinine Ratio 14.5 Glucose 147 H Hemoglobin A1c 7.4 H Calcium 9.2 Prealbumin 20.1 POC Glucose 06/11/17 06/11/17 06/10/17 11:47 06:39 22:44 POC Glucose 221 H 110 273 H Diagnostic Data Hand X-Ray 06/10/17 16:34 IMPRESSION: Severe osteoarthritic change of the distal interphalangeal joint of the second digit. I do not identify osseous erosion to suggest underlying osteomyelitis though MRI or three-phase bone scan would have greater sensitivity to detection of underlying osteomyelitis. See above. Electronically Signed: Charla Negrete MD at 17:50 EDT Tel , Service support , Upper Extremity MRI 06/11/17 07:08 IMPRESSION: There are bone marrow changes seen associated with the distal phalanx of the second and fourth digits that are compatible with underlying osteomyelitis. Electronically Signed: Charla Negrete MD at 14:29 EDT Tel , Service support , Assessment/Plan 1. Nonhealing infected diabetic ulcer right index finger tip. 2. Cellulitis right index finger. 3. Osteomyelitis distal phalanx right index finger tip. 4. Diabetes mellitus. 5. History of MRSA. Patient has a nonhealing infected diabetic ulcer right index finger tip. There is increased pain and swelling at the finger tip with vascular changes. The ulcer palpates down to the bone. MRI is suspicious for osteomyelitis. She is currently on Vancomycin. Will add Zosyn until cultures are available from surgery since diabetics can have polymicrobial organism infections. Patient needs operative debridement. Anticipate loss of some distal phalanx bone with the debridement. The surrounding skin is firm and calloused and white indicative of some vascular issues. Trying to save the tip will have increased risk of wound healing problems. Also she has history of arthritis with swollen DIP joint. Trying to preserve length necessitates a two stage operation such as a thenar flap or a cross finger flap. Problem with these flaps is increased risk of further stiffness to the finger after the second stage division and inset of the flap. The thenar flap has a higher risk than the cross finger flap. Patient is not interested in a stiff finger and is more interested in function and not preserving length. Amputation was discussed as a possibility depending on what is found at the time of surgery. 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 At the time of surgery, soft tissue and bone will be sent to Pathology to evaluate for carcinoma as well as for osteomyelitis and to Microbiology for culture. A positive culture may necessitate antibiotic modification. Patient was informed of the risks and complications of the procedure including alternatives to surgery. These were discussed with her personally. She voices understanding and wishes to proceed. Some of the risks and complications that were discussed included but were not inclusive of failure to diagnose including symptom relief, pain, infection, numbness, stiffness, loss of digit, RSD, need for further surgery, contracture, and wound healing problems. Code Visit Charges CPT - 71174 ICD-10 - E11.622, L03.011, M86.141, Z86.14
--- NOTE | 2017-06-11 14:01 | CON.PCM_ITS ---
Reason for Consult Date of Consultation: 06/11/17 Reason for Consultation: Nonhealing infected diabetic ulcer right index finger tip. REFERRING PHYSICIAN: Dr. Bales. DIRECTOR OF FRONT OFFICE: Dr. Jimenez. History of Present Illness: The patient is a 76 year old F who tore part of her right index finger fingernail on a bed sheet about 2 weeks ago. She clipped it off but there was a wound. Patient was treating it with Betadine. Yesterday it became much more erythematous and swollen that persisted today and she came to the ED for evaluation. 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 In the ED the patient was treated with IV vancomycin. It was noted she had an ulceration at the tip of her right index finger. She is right hand dominant. Patient had a hand x-ray that showed severe osteoarthritis of the DIP and no obvious osteomyelitis was noted. MRI was done which was suspicious for osteomyelitis. I was asked to evaluate this patient for surgical options for treatment. Past Medical History Past Medical History (Chronic Problems): Chronic Problems (Last Updated 06/18/17 @ 11:03 by Rhoda Resendez) CKD (chronic kidney disease), stage III (Chronic) CAD (coronary artery disease) (Chronic) Osteoarthritis (Chronic) CKD (chronic kidney disease) (Chronic) History of MRSA infection (Chronic) Osteomyelitis of left foot (Chronic) Hypertension (Chronic) Peripheral arterial disease (Chronic) Type 2 diabetes mellitus (Chronic) Rheumatoid arthritis (Chronic) Allergies adhesive Allergy (Verified 12/09/16 10:08) Unknown red skin, uses paper tape and is okay with this atorvastatin calcium [From Lipitor] Allergy (Verified 12/09/16 10:08) Unknown joint pain bacitracin [From Neosporin ([id number])] Allergy (Verified 12/09/16 10:08) Unknown rash bacitracin zinc [From Neosporin ([id number])] Allergy (Verified 12/09/16 10: 08) Unknown rash fenofibrate nanocrystallized [From Tricor] Allergy (Verified 12/09/16 10:08) Unknown upset gi or muscle pain fenofibrate,micronized [From Tricor] Allergy (Verified 12/09/16 10:08) Unknown flurbiprofen Allergy (Verified 12/09/16 10:08) Unknown upset stomach gemfibrozil Allergy (Verified 12/09/16 10:08) Unknown upset stomach glipizide [From Glucotrol] Allergy (Verified 12/09/16 10:08) Unknown dizzy, upset gi neomycin sulfate [From Neosporin ([id number])] Allergy (Verified 12/09/16 10: 08) Unknown rash polymyxin B [From Neosporin ([id number])] Allergy (Verified 12/09/16 10:08) Unknown rash pravastatin Adverse Reaction (Verified 12/09/16 11:56) Other MUSCLE PAIN Current Medications Acetaminophen (Tylenol) 1,000 mg PO Q8H PRN PRN Amlodipine Besylate (Norvasc) 5 mg PO DAILY [facility] Ascorbic Acid (Vitamin C) 500 mg PO DAILY [facility] Aspirin (Aspirin) 325 mg PO BIDCM [facility] Atenolol (Tenormin (Beta Joselito)) 50 mg PO BID [facility] Cholecalciferol (Vitamin D) 1,000 unit PO DAILY [facility] Cyanocobalamin (Vitamin B12) 1,000 mcg PO DAILY [facility] Enoxaparin Sodium (Lovenox) 40 mg SC DAILY@1000 [facility] Famotidine (Pepcid) 20 mg PO DAILY [facility] Furosemide (Lasix) 20 mg PO QODAY [facility] Glucagon () 1 mg IM .X1 PRN Glyburide (Micronase) 5 mg PO DAILY@0800 [facility] Vancomycin HCl (Vancomycin) 1,000 mg in 200 mls @ 200 mls/hr IV Q24H [facility] Insulin Aspart (Novolog Flexpen ([facility])) 0 units SC TIDAC [facility] Insulin Detemir (Levemir ([facility])) 12 units SC QHS [facility] Lisinopril (Zestril) 20 mg PO DAILY [facility] Magnesium Hydroxide (Milk Of Magnesia) 30 ml PO DAILY PRN Metformin HCl (Glucophage) 500 mg PO TIDCM [facility] Multivitamins (Multivitamin) 1 tablet PO DAILY@0800 [facility] Ondansetron HCl (Zofran) 4 mg IV Q8H PRN Oxycodone HCl (Oxyir) 5 mg PO Q4H PRN Senna/Docusate Sodium (Senokot-S, Shakira-Colace) 2 tablet PO BID [facility] PAST MEDICAL HISTORY Chronic kidney disease. CAD. Osteoarthritis. MRSA. Osteomyelitis left foot. Hypertension. PAD. Diabetes mellitus. 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 Home Medications: Ambulatory Orders Medication Instructions Recorded Insulin Glargine [Lantus SoloStar 12 units SC QHS 08/26/15 Pen] Lisinopril [Zestril] 20 mg PO DAILY 08/26/15 Metformin HCl [Glucophage] 500 mg PO TIDCM 08/26/15 glyBURIDE [Micronase] 5 mg PO DAILY@0800 08/26/15 Ascorbic Acid [Vitamin C] 500 mg PO DAILY 12/09/16 Atenolol [Tenormin (beta joselito)] 50 mg PO BID 12/09/16 Cholecalciferol (Vitamin D3) 1,000 unit PO DAILY 12/09/16 [Vitamin D3] Cyanocobalamin (Vitamin B-12) 1,000 mcg PO DAILY 12/09/16 [Vitamin B-12] Multivitamin [Multiple Vitamins] 1 ea PO DAILY 12/09/16 [place]-3 Fatty Acids/Fish Oil 1 ea PO BID 12/09/16 [[place] 3 Fish Oil Softgel] Furosemide [Lasix] 20 mg PO QODAY 12/25/16 Acetaminophen [Tylenol] 1,000 mg PO Q8H PRN PRN 06/10/17 Aspirin 81 mg PO 06/11/17 Amlodipine [Norvasc] 10 mg PO DAILY #30 tab 06/13/17 Amoxicillin/Potassium Clav 1 ea PO BID #10 tab 06/13/17 [Augmentin 875-125 Tablet] Doxycycline 100 mg PO BID #10 cap 06/13/17 Oxycodone HCl/Acetaminophen 1 - 2 tab PO 4X/DAY PRN PRN 5 Days 06/13/17 [Percocet 5/325] #40 tab Surgical History: appendectomy, cataract, cholecystectomy, coronary bypass surgery, hysterectomy - with BSO., total knee arthroplasty - Right, tonsillectomy, - - Foot bunion surgery bilaterally, hammertoe surgery, left carotid endarterectomy, peripheral vascular disease surgery both legs with stent on the right. Left great toe amputation. Right third toe amputation. 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 Eyes: Denies: Blurred vision, Double vision. 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 Denies: Head Aches, Sinus Congestion, Sinus Drainage. Cardiovascular: Denies: Chest Pain, Palpitations. Respiratory: Denies: Cough, Shortness of breath at rest, Sputum production. Gastrointestinal : Denies: Abdominal Pain, Nausea, Vomiting. Genitourinary: Denies: Dysuria. Musculoskeletal: Denies: Joint Pain, Joint Tenderness. Skin: Reports: - - Erythema and swelling of the distal right index finger., - - Redness in upper extremities more so on the right and states that she gets this when she gets her blood pressure checked. Patient states that she had a sleeve for gown her blood pressure was checked and but does get this when she does have the blood pressure checks. No itching. Neurological: Reports: - - Paresthesias in her fingers and toes chronically. Psychiatric: Denies: Anxiety, Depression. Endocrine: Denies: Change in Body Habitus. Hematologic/ Lymphatic: Denies: Easy Bruising, Easy Bleeding, Hx of blood clot - Physical Exam General: Alert, Cooperative. HEENT: PERRL. EOMI. Oral: Moist Mucosa. Neck: Throat is clear. supple and nontender. No cervical adenopathy. Lungs: Clear to auscultation. Cardiovascular: Regular rate, Regular Rhythm. Abdomen: Soft, Non-Distended. Extremities: No clubbing and no cyanosis. Some swelling at distal tip right index finger. Skin: - - There is an ulceration at tip of right index finger that palpates down to the bone. Nail plate is deformed. Mild tenderness. No purulent drainage noted. The DIP joint is swollen from this localized infection and underlying arthritis. Range of motion intact and nontender. Fingers are warm with good capillary refill. Radial pulses are palpable. No axillary adenopathy. Neurological: CN II - XII grossly intact. Psych/Mental Status: Normal Affect, Appropriate Vital Signs Temp Pulse Resp BP Pulse Ox 97.8 F 57 L 18 160/75 H 94 06/11/17 11:42 06/11/17 11:44 06/11/17 11:42 06/11/17 11:42 06/11/17 11:42 Oxygen Delivery Method Room Air Weight: 164 lb 7.437 oz Body Mass Index (BMI) 27.3 Intake and Output for Last 24 Hours 06/09/17 06/10/17 06/11/17 23:59 23:59 23:59 Intake Total 1200 / 1200 Output Total 750 / 750 Balance 450 / 450 Laboratory Tests Past 24 Hrs 06/11/17 06/11/17 06/11/17 05:28 05:28 08:48 WBC 9.4 RBC 4.40 Hgb 13.4 Hct 38.3 MCV 87.0 MCH 30.5 MCHC 35.0 RDW 13.9 RDW Differential 43.7 Plt Count 205 MPV 10.8 Immature Gran % (Auto) 0.400 Neut % (Auto) 59.2 Lymph % (Auto) 23.9 [place] % (Auto) 13.8 H Eos % (Auto) 2.4 Baso % (Auto) 0.3 Absolute Neuts (auto) 5.6 Absolute Lymphs (auto) 2.25 Total Counted Not Reportable Sodium 136 Potassium 4.5 Chloride 106 Carbon Dioxide 22.0 Anion Gap 8 BUN 18 Creatinine 1.24 H Estim Creat Clear Calc 34.73 Est GFR (MDRD) Af Amer 54 L Est GFR (MDRD) Non-Af 45 L BUN/Creatinine Ratio 14.5 Glucose 147 H Hemoglobin A1c 7.4 H Calcium 9.2 Prealbumin 20.1 POC Glucose 06/11/17 06/11/17 06/10/17 11:47 06:39 22:44 POC Glucose 221 H 110 273 H Diagnostic Data Hand X-Ray 06/10/17 16:34 IMPRESSION: Severe osteoarthritic change of the distal interphalangeal joint of the second digit. I do not identify osseous erosion to suggest underlying osteomyelitis though MRI or three-phase bone scan would have greater sensitivity to detection of underlying osteomyelitis. See above. Electronically Signed: Charla Negrete MD at 17:50 EDT Tel , Service support , Upper Extremity MRI 06/11/17 07:08 IMPRESSION: There are bone marrow changes seen associated with the distal phalanx of the second and fourth digits that are compatible with underlying osteomyelitis. Electronically Signed: Charla Negrete MD at 14:29 EDT Tel , Service support , Assessment/Plan 1. Nonhealing infected diabetic ulcer right index finger tip. 2. Cellulitis right index finger. 3. Osteomyelitis distal phalanx right index finger tip. 4. Diabetes mellitus. 5. History of MRSA. Patient has a nonhealing infected diabetic ulcer right index finger tip. There is increased pain and swelling at the finger tip with vascular changes. The ulcer palpates down to the bone. MRI is suspicious for osteomyelitis. She is currently on Vancomycin. Will add Zosyn until cultures are available from surgery since diabetics can have polymicrobial organism infections. Patient needs operative debridement. Anticipate loss of some distal phalanx bone with the debridement. The surrounding skin is firm and calloused and white indicative of some vascular issues. Trying to save the tip will have increased risk of wound healing problems. Also she has history of arthritis with swollen DIP joint. Trying to preserve length necessitates a two stage operation such as a thenar flap or a cross finger flap. Problem with these flaps is increased risk of further stiffness to the finger after the second stage division and inset of the flap. The thenar flap has a higher risk than the cross finger flap. Patient is not interested in a stiff finger and is more interested in function and not preserving length. Amputation was discussed as a possibility depending on what is found at the time of surgery. 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 At the time of surgery, soft tissue and bone will be sent to Pathology to evaluate for carcinoma as well as for osteomyelitis and to Microbiology for culture. A positive culture may necessitate antibiotic modification. Patient was informed of the risks and complications of the procedure including alternatives to surgery. These were discussed with her personally. She voices understanding and wishes to proceed. Some of the risks and complications that were discussed included but were not inclusive of failure to diagnose including symptom relief, pain, infection, numbness, stiffness, loss of digit, RSD, need for further surgery, contracture, and wound healing problems. Code Visit Charges CPT - 41911 ICD-10 - E11.622, L03.011, M86.141, Z86.14
[2017-06-11] MEDS: 0.9% NaCl Peripheral Flush Adult/Peds IV (14:20)
--- NOTE | 2017-06-11 16:11 | CHAPLAIN ---
Type of Pastoral Visit _x__ Initial Visit ___ Follow-up Visit ___ On-call Visit ___ General Patient Visit ___ Spiritual Assessment ___ Family Conference ___ Bereavement ___ Rapid Response ___ Code Blue ___ Other (describe below) Pastoral Care Referral From _x__ Patient ___ Family ___ Nurse ___ Physician ___ Machine Shop Helper ___ Osteopathic Physician ___ Other (describe below) Sacrament/Intervention _x__ Active listening ___ Anointing ___ Confucianist ___ Bereavement ___ Communion ___ Trish exploration ___ _x__ Life review _x__ Prayer ___ Reconciliation ___ Sacrament of Sick _x__ Supportive presence ___ Wedding ___ Other (describe below) Pastoral Comments
--- NOTE | 2017-06-11 16:39 | NURSING ---
Verified and reviewed all charting of alma sutton
--- NOTE | 2017-06-11 17:46 | PCM.PN.HOSP ---
Patient Problems: Active and Suspected Problems Cellulitis of right index finger (Acute) Subjective: Patient was seen and examined. Denied any fever or chills. Right index finger was dressed. MRI of the finger shows bony changes suggestive of underlying osteomyelitis. Objective: Physical Exam General: Alert, Cooperative, No apparent distress HEENT: Atraumatic, Normocephalic Oral: Moist Mucosa, No Gingival or Mucosal Lesions/ Ulcerations Neck: No Nodes, Thyroid Normal Size and Texture Lungs: Clear to auscultation, Normal air movement, No rhonchi, No wheeze Cardiovascular: Regular rate, Regular Rhythm, Normal S1, Normal S2, No murmurs Abdomen: Bowel Sounds Present, Soft, Non Tender, Non-Distended, No Hepato-splenomegaly Extremities: No Calf Tenderness, Edema - The distal right index finger. Skin: - - Erythema and swelling of the distal right index finger with lymphangitis upon the volar aspects of the arm. Slight erythema on right upper extremities that was almost petechial in nature. Musculoskeletal: No Tenderness to Palpation of Joints or Extremities, No Muscle Wasting, Arthritic Changes Neurological: Sensory exam intact to light touch and pain, Coordination normal Psych/Mental Status: Normal Affect, Appropriate Vitals/I&O's: Vital Signs Temp Pulse Resp BP Pulse Ox 98 F 61 16 152/60 H 97 06/11/17 14:28 06/11/17 14:28 06/11/17 14:28 06/11/17 14:28 06/11/17 14:28 Oxygen Delivery Method Room Air Weight: 74.6 kg Body Mass Index (BMI) 27.3 Intake and Output for Last 24 Hours 06/09/17 06/10/17 06/11/17 23:59 23:59 23:59 Intake Total 1600 / 1600 Output Total 750 / 750 Balance 850 / 850 Laboratory Results 06/10/17 22:44: POC Glucose 273 H 06/11/17 05:28: WBC 9.4, RBC 4.40, Hgb 13.4, Hct 38.3, MCV 87.0, MCH 30.5, MCHC 35.0, RDW 13.9, RDW Differential 43.7, Plt Count 205, MPV 10.8, Immature Gran % (Auto) 0.400, Neut % (Auto) 59.2, Lymph % (Auto) 23.9, [place] % (Auto) 13.8 H, Eos % (Auto) 2.4, Baso % (Auto) 0.3, Absolute Neuts (auto) 5.6, Absolute Lymphs (auto) 2.25, Total Counted Not Reportable 06/11/17 05:28: Hemoglobin A1c 7.4 H 06/11/17 06:39: POC Glucose 110 06/11/17 08:48: Sodium 136, Potassium 4.5, Chloride 106, Carbon Dioxide 22.0, Anion Gap 8, BUN 18, Creatinine 1.24 H, Estim Creat Clear Calc 34.73, Est GFR (MDRD) Af Amer 54 L, Est GFR (MDRD) Non-Af 45 L, BUN/Creatinine Ratio 14.5, Glucose 147 H, Calcium 9.2, Prealbumin 20.1 06/11/17 11:47: POC Glucose 221 H Current Medications Acetaminophen (Tylenol) 1,000 mg PO Q8H PRN PRN Amlodipine Besylate (Norvasc) 5 mg PO DAILY [facility] Last Admin: 06/11/17 05:40 Dose: 5 mg Ascorbic Acid (Vitamin C) 500 mg PO DAILY [facility] Last Admin: 06/11/17 11:53 Dose: 500 mg Aspirin (Aspirin) 325 mg PO BIDCM [facility] Last Admin: 06/11/17 17:24 Dose: 325 mg Atenolol (Tenormin (Beta Joselito)) 50 mg PO BID [facility] Last Admin: 06/11/17 05:40 Dose: 50 mg Cholecalciferol (Vitamin D) 1,000 unit PO DAILY [facility] Last Admin: 06/11/17 11:52 Dose: 1,000 unit Cyanocobalamin (Vitamin B12) 1,000 mcg PO DAILY [facility] Last Admin: 06/11/17 11:53 Dose: 1,000 mcg Dextrose (D50w Syringe) 0 gm IV X1 PRN; Protocol PRN Reason: Hypoglycemia Enoxaparin Sodium (Lovenox) 40 mg SC DAILY@1000 [facility] Last Admin: 06/11/17 11:56 Dose: 40 mg Famotidine (Pepcid) 20 mg PO DAILY [facility] Last Admin: 06/11/17 11:56 Dose: 20 mg Furosemide (Lasix) 20 mg PO QODAY [facility] Glucagon () 1 mg IM .X1 PRN PRN Reason: Hypoglycemia Glyburide (Micronase) 5 mg PO DAILY@0800 [facility] Last Admin: 06/11/17 11:55 Dose: 5 mg Sodium Chloride () 250 mls @ 15 mls/hr IV .[id number] PRN PRN Reason: SALINE FLUSH Vancomycin HCl (Vancomycin) 1,000 mg in 200 mls @ 200 mls/hr IV Q24H [facility] Last Admin: 06/11/17 14:17 Dose: 200 mls/hr Insulin Aspart (Novolog Flexpen ([facility])) 0 units SC TIDAC [facility] PRN Reason: Protocol Last Admin: 06/11/17 17:24 Dose: 1 units Insulin Detemir (Levemir ([facility])) 12 units SC QHS [facility] Last Admin: 06/10/17 23:06 Dose: 12 u Lisinopril (Zestril) 20 mg PO DAILY [facility] Last Admin: 06/11/17 05:39 Dose: 20 mg Magnesium Hydroxide (Milk Of Magnesia) 30 ml PO DAILY PRN PRN PRN Reason: Constipation Metformin HCl (Glucophage) 500 mg PO TIDCM [facility] Last Admin: 06/11/17 17:24 Dose: 500 mg Multivitamins (Multivitamin) 1 tablet PO DAILY@0800 [facility] Last Admin: 06/11/17 11:53 Dose: 1 tablet Ondansetron HCl (Zofran) 4 mg IV Q8H PRN PRN PRN Reason: Nausea Oxycodone HCl (Oxyir) 5 mg PO Q4H PRN PRN PRN Reason: PAIN Senna/Docusate Sodium (Senokot-S, Shakira-Colace) 2 tablet PO BID [facility] Last Admin: 06/11/17 11:52 Dose: 2 tablet Sodium Chloride () 5 - 30 ml IV UD PRN PRN Reason: SALINE FLUSH Last Admin: 06/11/17 14:20 Dose: 10 ml Medical Necessity - Tobacco Use Smoking Status: Never smoker Tobacco Use: Non-smoker Assessment/Plan Active and Suspected Problems Cellulitis of right index finger (Acute) 76-year-old female with past medical history of hypertension, DM, type 2 admitted with right finger cellulitis 1. Right index finger ulcer/cellulitis, with osteomyelitis seen on MRI, on IV vancomycin, will get ID involved, plastic surgery Dr. Jimenez following; discussed with Dr. Jimenez - will send to OR for distal phalangeal amputation, 2. Hypertension, fairly uncontrolled, will continue home regimen 3. Type 2DM, HbA1c is 7.4, BS are fairly controlled, will continue home insulin regimen 4. DVT PPx - Lovenox SC Code Visit Inpatient E&M: 83981 Subs Hosp L2
--- NOTE | 2017-06-11 17:58 | PN_ITS ---
Patient Problems: Active and Suspected Problems Cellulitis of right index finger (Acute) Subjective: Patient was seen and examined. Denied any fever or chills. Right index finger was dressed. MRI of the finger shows bony changes suggestive of underlying osteomyelitis. Objective: Physical Exam General: Alert, Cooperative, No apparent distress HEENT: Atraumatic, Normocephalic Oral: Moist Mucosa, No Gingival or Mucosal Lesions/ Ulcerations Neck: No Nodes, Thyroid Normal Size and Texture Lungs: Clear to auscultation, Normal air movement, No rhonchi, No wheeze Cardiovascular: Regular rate, Regular Rhythm, Normal S1, Normal S2, No murmurs Abdomen: Bowel Sounds Present, Soft, Non Tender, Non-Distended, No Hepato- splenomegaly Extremities: No Calf Tenderness, Edema - The distal right index finger. Skin: - - Erythema and swelling of the distal right index finger with lymphangitis upon the volar aspects of the arm. Slight erythema on right upper extremities that was almost petechial in nature. Musculoskeletal: No Tenderness to Palpation of Joints or Extremities, No Muscle Wasting, Arthritic Changes Neurological: Sensory exam intact to light touch and pain, Coordination normal Psych/Mental Status: Normal Affect, Appropriate Vitals/I&O's: Vital Signs Temp Pulse Resp BP Pulse Ox 98 F 61 16 152/60 H 97 06/11/17 14:28 06/11/17 14:28 06/11/17 14:28 06/11/17 14:28 06/11/17 14:28 Oxygen Delivery Method Room Air Weight: 74.6 kg Body Mass Index (BMI) 27.3 Intake and Output for Last 24 Hours 06/09/17 06/10/17 06/11/17 23:59 23:59 23:59 Intake Total 1600 / 1600 Output Total 750 / 750 Balance 850 / 850 Laboratory Results 06/10/17 22:44: POC Glucose 273 H 06/11/17 05:28: WBC 9.4, RBC 4.40, Hgb 13.4, Hct 38.3, MCV 87.0, MCH 30.5, MCHC 35.0, RDW 13.9, RDW Differential 43.7, Plt Count 205, MPV 10.8, Immature Gran % (Auto) 0.400, Neut % (Auto) 59.2, Lymph % (Auto) 23.9, [place] % (Auto) 13.8 H, Eos % (Auto) 2.4, Baso % (Auto) 0.3, Absolute Neuts (auto) 5.6, Absolute Lymphs (auto) 2.25, Total Counted Not Reportable 06/11/17 05:28: Hemoglobin A1c 7.4 H 06/11/17 06:39: POC Glucose 110 06/11/17 08:48: Sodium 136, Potassium 4.5, Chloride 106, Carbon Dioxide 22.0, Anion Gap 8, BUN 18, Creatinine 1.24 H, Estim Creat Clear Calc 34.73, Est GFR ( MDRD) Af Amer 54 L, Est GFR (MDRD) Non-Af 45 L, BUN/Creatinine Ratio 14.5, Glucose 147 H, Calcium 9.2, Prealbumin 20.1 06/11/17 11:47: POC Glucose 221 H Current Medications Acetaminophen (Tylenol) 1,000 mg PO Q8H PRN PRN Amlodipine Besylate (Norvasc) 5 mg PO DAILY [facility] Last Admin: 06/11/17 05:40 Dose: 5 mg Ascorbic Acid (Vitamin C) 500 mg PO DAILY [facility] Last Admin: 06/11/17 11:53 Dose: 500 mg Aspirin (Aspirin) 325 mg PO BIDCM [facility] Last Admin: 06/11/17 17:24 Dose: 325 mg Atenolol (Tenormin (Beta Joselito)) 50 mg PO BID [facility] Last Admin: 06/11/17 05:40 Dose: 50 mg Cholecalciferol (Vitamin D) 1,000 unit PO DAILY [facility] Last Admin: 06/11/17 11:52 Dose: 1,000 unit Cyanocobalamin (Vitamin B12) 1,000 mcg PO DAILY [facility] Last Admin: 06/11/17 11:53 Dose: 1,000 mcg Dextrose (D50w Syringe) 0 gm IV X1 PRN; Protocol PRN Reason: Hypoglycemia Enoxaparin Sodium (Lovenox) 40 mg SC DAILY@1000 [facility] Last Admin: 06/11/17 11:56 Dose: 40 mg Famotidine (Pepcid) 20 mg PO DAILY [facility] Last Admin: 06/11/17 11:56 Dose: 20 mg Furosemide (Lasix) 20 mg PO QODAY [facility] Glucagon () 1 mg IM .X1 PRN PRN Reason: Hypoglycemia Glyburide (Micronase) 5 mg PO DAILY@0800 [facility] Last Admin: 06/11/17 11:55 Dose: 5 mg Sodium Chloride () 250 mls @ 15 mls/hr IV .[id number] PRN PRN Reason: SALINE FLUSH Vancomycin HCl (Vancomycin) 1,000 mg in 200 mls @ 200 mls/hr IV Q24H [facility] Last Admin: 06/11/17 14:17 Dose: 200 mls/hr Insulin Aspart (Novolog Flexpen ([facility])) 0 units SC TIDAC [facility] PRN Reason: Protocol Last Admin: 06/11/17 17:24 Dose: 1 units Insulin Detemir (Levemir ([facility])) 12 units SC QHS [facility] Last Admin: 06/10/17 23:06 Dose: 12 u Lisinopril (Zestril) 20 mg PO DAILY [facility] Last Admin: 06/11/17 05:39 Dose: 20 mg Magnesium Hydroxide (Milk Of Magnesia) 30 ml PO DAILY PRN PRN PRN Reason: Constipation Metformin HCl (Glucophage) 500 mg PO TIDCM [facility] Last Admin: 06/11/17 17:24 Dose: 500 mg Multivitamins (Multivitamin) 1 tablet PO DAILY@0800 [facility] Last Admin: 06/11/17 11:53 Dose: 1 tablet Ondansetron HCl (Zofran) 4 mg IV Q8H PRN PRN PRN Reason: Nausea Oxycodone HCl (Oxyir) 5 mg PO Q4H PRN PRN PRN Reason: PAIN Senna/Docusate Sodium (Senokot-S, Shakira-Colace) 2 tablet PO BID [facility] Last Admin: 06/11/17 11:52 Dose: 2 tablet Sodium Chloride () 5 - 30 ml IV UD PRN PRN Reason: SALINE FLUSH Last Admin: 06/11/17 14:20 Dose: 10 ml Medical Necessity - Tobacco Use Smoking Status: Never smoker Tobacco Use: Non-smoker Assessment/Plan Active and Suspected Problems Cellulitis of right index finger (Acute) 76-year-old female with past medical history of hypertension, DM, type 2 admitted with right finger cellulitis 1. Right index finger ulcer/cellulitis, with osteomyelitis seen on MRI, on IV vancomycin, will get ID involved, plastic surgery Dr. Jimenez following; discussed with Dr. Jimenez - will send to OR for distal phalangeal amputation, 2. Hypertension, fairly uncontrolled, will continue home regimen 3. Type 2DM, HbA1c is 7.4, BS are fairly controlled, will continue home insulin regimen 4. DVT PPx - Lovenox SC Code Visit Inpatient E&M: 84198 Subs Hosp L2
[2017-06-11 18:06] LABS: Bedside Glucose 189 mg/dL (70-110)
[2017-06-11 22:46] LABS: Bedside Glucose 128 mg/dL (70-110)
--- NOTE | 2017-06-12 | BON_PTH ---
PATIENT: DARREN SANDOVAL LOC: MS3 U#:[id number] AGE/SX: 76/F ROOM: MS311 RE06/10/[address]: Dr. Anabela Butcher MD : [id number] BED: 1 DIS: 06/13/2017 SPEC #: [id number] RECD: 06/12/17 13:03 STATUS: CHLOE RELynette #: [id number] MARIA ELENA: 06/12/17 00:[address]: Anabela Butcher DEPT: SURGICAL PATHOLOGY RECD BY: Garrick Cadroza ENTERED: 06/12/17 13:04 SP TYPE: Bone OTHR DR: MD Dr. Dipak Cuevas DO Dr. James A Slaby, MD Dr. Robert Leininger, MD Tissues: A - Finger, NOS B - Finger, NOS Procedures: Decalcification bone/plaque Surgery Specimen Level III Surgery Specimen Level IV HEADER OPERATION: Surgical preparation right index fingertip with excision PRE-OP DIAGNOSIS: Nonhealing infected diabetic ulcer, right index fingertip with osteomyelitis TISSUE SUBMITTED: A ? Debrided bone, right index finger, B ? Debrided tissue, right index finger MICROSCOPIC DIAGNOSIS A. Debrided bone, right index finger: A piece of bone, negative for acute osteomyelitis. B. Right index finger, amputation: Focal ulceration and acute and chronic inflammation, granulation tissue reaction. Underlying bone with acute osteomyelitis. YUAN:delisa 06/17/17 MICROSCOPIC DESCRIPTION Slides are reviewed. GROSS DESCRIPTION A - Received in fixative is one container labeled with the patient's name and designated debrided bone, right index finger. The specimen consists of a piece of bone measuring 1.5 x 0.6 x 0.5 cm. The entire specimen is submitted in one cassette after decalcification. The specimen will be bisected at the time of embedding. B - Received in fixative is one container labeled with the patient's name and designated debrided tissue, right index finger. The specimen consists of a portion of finger measuring 1.5 x 2 x 1.7 cm. An ulcer is noted at the tip of the finger. The resection margin is inked. Materials Scientist sections are submitted in two cassettes as follows: 1 ? bone after decalcification, 2 - ulcerated area. / YUAN:delisa 06/12/17 TC:2 CPT: 03494, 26124, 14253 x2
[2017-06-12 04:00] VITALS: BP 174/64; PULSE 61; RESP 16; RESP 18; TEMP 36.8; O2SAT 97
--- NOTE | 2017-06-12 05:49 | EKGRS_ITS ---
Test Reason : AM EKG Blood Pressure : / mmHG Vent. Rate : 057 BPM Atrial Rate : 057 BPM P-R Int : 184 ms QRS Dur : 082 ms QT Int : 426 ms P-R-T Axes : 085 043 078 degrees QTc Int : 414 ms Sinus bradycardia Otherwise normal ECG When compared with ECG of 09-DEC-2016 09:57, No significant change was found Confirmed by SARA HUTTON, PERCY ([id number]), news editor ROSS ULRICH ([id number]) on 06/23/2017 2:07:36 PM Referred By: JAC Confirmed By:PERCY RUIZ MD
[2017-06-12 06:51] LABS: Bedside Glucose 132 mg/dL (70-110)
[2017-06-12 07:15] VITALS: BP 208/73; PULSE 56; RESP 16; TEMP 36.4; O2SAT 97
[2017-06-12] MEDS: amLODIPine 5 MG Tablet PO (07:19)
[2017-06-12] MEDS: Atenolol 50 MG Tablet PO ×2 (07:19→21:28)
[2017-06-12] MEDS: Lisinopril 20 MG Tablet PO (07:20)
--- NOTE | 2017-06-12 08:21 | NURSING ---
PT LEFT FOR OR. FAMILY SENT TO WAITING ROOM. REPORT CALLED TO AC.
[2017-06-12] MEDS: Piperacil/Tazobactam 3.375 GM/50 ML ML IV ×3 (09:48→21:29)
[2017-06-12] MEDS: Mupirocin Ointment 22gm Tube 1 APPLIC (10:23)
--- NOTE | 2017-06-12 10:30 | PCM.IMDPSTOP ---
Immediate Post-Op Note Date of Procedure: 06/12/17 Primary Surgeon/Physician: Pepe Jimenez automotive parts interpreter: None Pre-Operative Diagnosis: 1. Nonhealing infected diabetic ulcer right index finger tip. 2. Cellulitis right index finger. 3. Osteomyelitis distal phalanx right index finger tip. 4. Diabetes mellitus. 5. History of MRSA. Post-Operative Diagnosis: Same. Surgery/Procedure Performed:: Surgical preparation right index finger tip with excisional debridement nonhealing infected diabetic ulcer with partial ostectomy for osteomyelitis and amputation through middle phalanx. Description of Surgical Findings:: The patient is a 76 year old F who tore part of her right index finger fingernail on a bed sheet about 2 weeks ago. She clipped it off but there was a wound. Patient was treating it with Betadine. Yesterday it became much more erythematous and swollen that persisted today and she came to the ED for evaluation. 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 In the ED the patient was treated with IV vancomycin. It was noted she had an ulceration at the tip of her right index finger. She is right hand dominant. Patient had a hand x-ray that showed severe osteoarthritis of the DIP and no obvious osteomyelitis was noted. MRI was done which was suspicious for osteomyelitis. Today the patient underwent surgical preparation right index finger tip with excisional debridement nonhealing infected diabetic ulcer with partial ostectomy for osteomyelitis and amputation through middle phalanx. Total tourniquet time - 36 minutes. Estimated Blood Loss: 2 ml. Specimen's removed: 1. Nonhealing infected diabetic ulcer right index finger tip soft tissue to Pathology and Microbiology. 2. Nonhealing infected diabetic ulcer right index finger tip distal phalanx bone to Pathology and Microbiology. Drains: None. Type of Anesthesia:: Local - Marcaine digital metacarpal block per anesthesia. - Admit VTE Documentation VTE Present on Admission: No VTE Mechan Device Prophylaxis: SCD's VTE Pharm Prophylaxis ordered?: Yes
--- NOTE | 2017-06-12 10:36 | PCM.RX.CS ---
Consult Pharmacy has been consulted to manage selected antiobiotic: Vancomycin Type of Consult: Follow-up Suspected Infection: Osteomyelitis Prior Doses of Antibiotics Received/Current Regimen: Medications Vancomycin HCl (Vancomycin) 1,000 mg in 200 mls @ 200 mls/hr IV Q24H [facility] Last Admin: 06/11/17 14:17 Dose: 200 mls/hr Labs: Sodium 136 mmol/L (136-145) 06/11/17 08:48 Potassium 4.5 mmol/L (3.5-5.1) 06/11/17 08:48 Chloride 106 mmol/L (98-107) 06/11/17 08:48 Carbon Dioxide 22.0 mmol/L (21.0-32.0) 06/11/17 08:48 Anion Gap 8 (5-15) 06/11/17 08:48 BUN 18 mg/dL (7-18) 06/11/17 08:48 Creatinine 1.24 mg/dL (0.55-1.02) H 06/11/17 08:48 Est GFR (MDRD) Af Amer 54 mL/min (>60) L 06/11/17 08:48 Est GFR (MDRD) Non-Af 45 mL/min (>60) L 06/11/17 08:48 BUN/Creatinine Ratio 14.5 RATIO (10-20) 06/11/17 08:48 Glucose 147 mg/dL (74-106) H 06/11/17 08:48 Weight used for dosin kg Estimated Creatinine Clearance: 35 mL/min Goal Trough: 15-20 mcg/mL Pharmacy Plan for Drug Dosing: Recommend increased goal trough range for osteomyelitis on MRI. Increase vancomycin 1250mg IV q24h, check trough Friday. Pharmacy Service will continue to monitor and adjust dosing as required. Follow-Up Labs: Trough Vancomycin - 06/14/17 @ 1200
[2017-06-12 11:21] VITALS: BP 165/65; PULSE 55; RESP 16; TEMP 36.1; O2SAT 96
--- NOTE | 2017-06-12 11:31 | PCM.HP.ID ---
Problem List (1) Acute osteomyelitis of right hand including fingers Status: Acute Comment: right index finger tip Reason for Consult: osteo Consulted by: Dr. Butcher History of Present Illness: The patient is a 76 year old F with DM and peripheral neuropathy who presented to ED yesterday with 2 weeks of progressive R 2nd digit ulceration, redness, clear drainage, and swelling. She tore her nail changing a bedsheet at home which started this. No fever, no home abx. Has remote h/o MRSA. Came to ED, started on zosyn, seen by Dr. Jimenez, MRI done, zosyn added, taken to OR this AM for partial amputation. Feeling ok, no pain. Full ROS performed and neg except as noted above. - Medical History Past Medical History (Chronic Problems): Chronic Problems CKD (chronic kidney disease), stage III (Chronic) CAD (coronary artery disease) (Chronic) Osteoarthritis (Chronic) CKD (chronic kidney disease) (Chronic) History of MRSA infection (Chronic) Osteomyelitis of left foot (Chronic) Hypertension (Chronic) Peripheral arterial disease (Chronic) Type 2 diabetes mellitus (Chronic) Rheumatoid arthritis (Chronic) Allergies/Adverse Reactions: Allergies adhesive Allergy (Verified 12/09/16 10:08) Unknown red skin, uses paper tape and is okay with this atorvastatin calcium [From Lipitor] Allergy (Verified 12/09/16 10:08) Unknown joint pain bacitracin [From Neosporin ([id number])] Allergy (Verified 12/09/16 10:08) Unknown rash bacitracin zinc [From Neosporin ([id number])] Allergy (Verified 12/09/16 10:08) Unknown rash fenofibrate nanocrystallized [From Tricor] Allergy (Verified 12/09/16 10:08) Unknown upset gi or muscle pain fenofibrate,micronized [From Tricor] Allergy (Verified 12/09/16 10:08) Unknown flurbiprofen Allergy (Verified 12/09/16 10:08) Unknown upset stomach gemfibrozil Allergy (Verified 12/09/16 10:08) Unknown upset stomach glipizide [From Glucotrol] Allergy (Verified 12/09/16 10:08) Unknown dizzy, upset gi neomycin sulfate [From Neosporin ([id number]-[id number])] Allergy (Verified 12/09/16 10:08) Unknown rash polymyxin B [From Neosporin ([id number]-[id number])] Allergy (Verified 12/09/16 10:08) Unknown rash pravastatin Adverse Reaction (Verified 12/09/16 11:56) Other MUSCLE PAIN Home Medications: Ambulatory Orders Medication Instructions Recorded Amlodipine [Norvasc] 5 mg PO DAILY 08/26/15 Insulin Glargine [Lantus SoloStar 12 units SC QHS 08/26/15 Pen] Lisinopril [Zestril] 20 mg PO DAILY 08/26/15 Metformin HCl [Glucophage] 500 mg PO TIDCM 08/26/15 glyBURIDE [Micronase] 5 mg PO DAILY@0800 08/26/15 Ascorbic Acid [Vitamin C] 500 mg PO DAILY 12/09/16 Atenolol [Tenormin (beta charlie)] 50 mg PO BID 12/09/16 Cholecalciferol (Vitamin D3) 1,000 unit PO DAILY 12/09/16 [Vitamin D3] Cyanocobalamin (Vitamin B-12) 1,000 mcg PO DAILY 12/09/16 [Vitamin B-12] Multivitamin [Multiple Vitamins] 1 each PO DAILY 12/09/16 [place]-3 Fatty Acids/Fish Oil 1 each PO BID 12/09/16 [[place] 3 Fish Oil Softgel] Furosemide [Lasix] 20 mg PO QODAY 12/25/16 Acetaminophen [Tylenol] 1,000 mg PO Q8H PRN PRN 06/10/17 Aspirin 81 mg PO 06/11/17 - Social History Tobacco Use: non-smoker Vital Signs Temp Pulse Resp BP Pulse Ox 97 F L 55 L 16 165/65 H 96 06/12/17 11:21 06/12/17 11:21 06/12/17 11:21 06/12/17 11:21 06/12/17 11:21 Oxygen Delivery Method Room Air Weight: 74.6 kg Body Mass Index (BMI) 27.3 - Other Studies Radiology: [] reviewed Other Studies: [] Route of nutrition/ use of supplements: [] Nutritional Intake: [] IV Site: [] Mosher Catheter: [] - Physical Exam General: Alert, Oriented x3, Cooperative, No apparent distress HEENT: Atraumatic, PERRLA, EOMI Neck: Supple, No Nodes Lungs: Clear to auscultation, Normal air movement Cardiovascular: Regular rate, Regular Rhythm Abdomen: Soft, Non Tender, Non-Distended Extremities: No edema Skin: Ulcer/ Wound - R 2nd finger wrapped IV Site: Peripheral, without redness Neurological: Cranial nerves II-XII grossly intact - Assessment/Plan Antibiotics: [] Assessment/Plan: [] Active and Suspected Problems Acute osteomyelitis of right hand including fingers (Acute) right index finger tip Diabetes with skin ulcer (Acute) nonhealing infected diabetic ulcer right index finger tip Cellulitis of right index finger (Acute) R 2nd finger osteo - now s/p 06/[address] Jimenez. Agree with broad coverage with vanc/zosyn. If surg cx and bx show clear margins, she will be candidate for short course of po abx at discharge. Thank you, will follow.
--- NOTE | 2017-06-12 11:37 | CON.PCM_ITS ---
Problem List (1) Acute osteomyelitis of right hand including fingers Status: Acute Comment: right index finger tip Reason for Consult: osteo Consulted by: Dr. Butcher History of Present Illness: The patient is a 76 year old F with DM and peripheral neuropathy who presented to ED yesterday with 2 weeks of progressive R 2nd digit ulceration, redness, clear drainage, and swelling. She tore her nail changing a bedsheet at home which started this. No fever, no home abx. Has remote h/o MRSA. Came to ED, started on zosyn, seen by Dr. Jimenez, MRI done, zosyn added, taken to OR this AM for partial amputation. Feeling ok, no pain. Full ROS performed and neg except as noted above. - Medical History Past Medical History (Chronic Problems): Chronic Problems CKD (chronic kidney disease), stage III (Chronic) CAD (coronary artery disease) (Chronic) Osteoarthritis (Chronic) CKD (chronic kidney disease) (Chronic) History of MRSA infection (Chronic) Osteomyelitis of left foot (Chronic) Hypertension (Chronic) Peripheral arterial disease (Chronic) Type 2 diabetes mellitus (Chronic) Rheumatoid arthritis (Chronic) Allergies/Adverse Reactions: Allergies adhesive Allergy (Verified 12/09/16 10:08) Unknown red skin, uses paper tape and is okay with this atorvastatin calcium [From Lipitor] Allergy (Verified 12/09/16 10:08) Unknown joint pain bacitracin [From Neosporin (sni-pab-fhljt)] Allergy (Verified 12/09/16 10:08) Unknown rash bacitracin zinc [From Neosporin ([id number]-quu-[id number])] Allergy (Verified 12/09/16 10: 08) Unknown rash fenofibrate nanocrystallized [From Tricor] Allergy (Verified 12/09/16 10:08) Unknown upset gi or muscle pain fenofibrate,micronized [From Tricor] Allergy (Verified 12/09/16 10:08) Unknown flurbiprofen Allergy (Verified 12/09/16 10:08) Unknown upset stomach gemfibrozil Allergy (Verified 12/09/16 10:08) Unknown upset stomach glipizide [From Glucotrol] Allergy (Verified 12/09/16 10:08) Unknown dizzy, upset gi neomycin sulfate [From Neosporin ([id number]-lto-[id number])] Allergy (Verified 12/09/16 10: 08) Unknown rash polymyxin B [From Neosporin ([id number]-hskzu)] Allergy (Verified 12/09/16 10:08) Unknown rash pravastatin Adverse Reaction (Verified 12/09/16 11:56) Other MUSCLE PAIN Home Medications: Ambulatory Orders Medication Instructions Recorded Amlodipine [Norvasc] 5 mg PO DAILY 08/26/15 Insulin Glargine [Lantus SoloStar 12 units SC QHS 08/26/15 Pen] Lisinopril [Zestril] 20 mg PO DAILY 08/26/15 Metformin HCl [Glucophage] 500 mg PO TIDCM 08/26/15 glyBURIDE [Micronase] 5 mg PO DAILY@0800 08/26/15 Ascorbic Acid [Vitamin C] 500 mg PO DAILY 12/09/16 Atenolol [Tenormin (beta charlie)] 50 mg PO BID 12/09/16 Cholecalciferol (Vitamin D3) 1,000 unit PO DAILY 12/09/16 [Vitamin D3] Cyanocobalamin (Vitamin B-12) 1,000 mcg PO DAILY 12/09/16 [Vitamin B-12] Multivitamin [Multiple Vitamins] 1 each PO DAILY 12/09/16 [place] Fatty Acids/Fish Oil 1 each PO BID 12/09/16 [[place] 3 Fish Oil Softgel] Furosemide [Lasix] 20 mg PO QODAY 12/25/16 Acetaminophen [Tylenol] 1,000 mg PO Q8H PRN PRN 06/10/17 Aspirin 81 mg PO 06/11/17 - Social History Tobacco Use: non-smoker Vital Signs Temp Pulse Resp BP Pulse Ox 97 F L 55 L 16 165/65 H 96 06/12/17 11:21 06/12/17 11:21 06/12/17 11:21 06/12/17 11:21 06/12/17 11:21 Oxygen Delivery Method Room Air Weight: 74.6 kg Body Mass Index (BMI) 27.3 - Other Studies Radiology: [] reviewed Other Studies: [] Route of nutrition/ use of supplements: [] Nutritional Intake: [] IV Site: [] Mosher Catheter: [] - Physical Exam General: Alert, Oriented x3, Cooperative, No apparent distress HEENT: Atraumatic, PERRLA, EOMI Neck: Supple, No Nodes Lungs: Clear to auscultation, Normal air movement Cardiovascular: Regular rate, Regular Rhythm Abdomen: Soft, Non Tender, Non-Distended Extremities: No edema Skin: Ulcer/ Wound - R 2nd finger wrapped IV Site: Peripheral, without redness Neurological: Cranial nerves II-XII grossly intact - Assessment/Plan Antibiotics: [] Assessment/Plan: [] Active and Suspected Problems Acute osteomyelitis of right hand including fingers (Acute) right index finger tip Diabetes with skin ulcer (Acute) nonhealing infected diabetic ulcer right index finger tip Cellulitis of right index finger (Acute) R 2nd finger osteo - now s/p 06/[address] Jimenez. Agree with broad coverage with vanc/zosyn. If surg cx and bx show clear margins, she will be candidate for short course of po abx at discharge. Thank you, will follow.
[2017-06-12 12:01] LABS: Bedside Glucose 116 mg/dL (70-110)
[2017-06-12] MEDS: Furosemide 20 MG Tablet PO (12:30)
[2017-06-12] MEDS: Multivitamins,Therapeutic Tablet 1 TABLET PO (12:30)
[2017-06-12] MEDS: Famotidine 20 MG Tablet PO (12:30)
[2017-06-12] MEDS: Senna/Docusate Sodium 1 Tablet 2 TABLET PO (12:31)
[2017-06-12] MEDS: Aspirin 325 MG Tablet PO ×2 (12:31→16:52)
[2017-06-12] MEDS: Ascorbic Acid 500 MG Tablet PO (12:32)
[2017-06-12] MEDS: Cyanocobalamin 500 MCG Tablet 1000 MCG PO (12:32)
[2017-06-12] MEDS: Enoxaparin 40 MG/0.4 ML Syringe SC (12:38)
[2017-06-12 14:15] VITALS: BP 171/81; PULSE 58; RESP 16; TEMP 36.9; O2SAT 98
--- NOTE | 2017-06-12 14:36 | PCM.PN.HOSP ---
Patient Problems: Active and Suspected Problems Acute osteomyelitis of right hand including fingers (Acute) right index finger tip Diabetes with skin ulcer (Acute) nonhealing infected diabetic ulcer right index finger tip Cellulitis of right index finger (Acute) Subjective: Patient was seen and examined. She had right distal index finger amputation done today. Denies fever or chills or SOB. Appreciate plastic surgery and ID consult and recommendations to care. Objective: Physical Exam General: Alert, Cooperative, No apparent distress HEENT: Atraumatic, Normocephalic Oral: Moist Mucosa, No Gingival or Mucosal Lesions/ Ulcerations Neck: No Nodes, Thyroid Normal Size and Texture Lungs: Clear to auscultation, Normal air movement, No rhonchi, No wheeze Cardiovascular: Regular rate, Regular Rhythm, Normal S1, Normal S2, No murmurs Abdomen: Bowel Sounds Present, Soft, Non Tender, Non-Distended, No Hepato-splenomegaly Extremities: No Calf Tenderness, Edema - The distal right index finger. Skin: - - Erythema and swelling of the distal right index finger with lymphangitis upon the volar aspects of the arm. Slight erythema on right upper extremities that was almost petechial in nature. Musculoskeletal: No Tenderness to Palpation of Joints or Extremities, No Muscle Wasting, Arthritic Changes Neurological: Sensory exam intact to light touch and pain, Coordination normal Psych/Mental Status: Normal Affect, Appropriate Vitals/I&O's: Vital Signs Temp Pulse Resp BP Pulse Ox 98.4 F 58 L 16 171/81 H 98 06/12/17 14:15 06/12/17 14:15 06/12/17 14:15 06/12/17 14:15 06/12/17 14:15 Oxygen Delivery Method Room Air Weight: 74.6 kg Body Mass Index (BMI) 27.3 Intake and Output for Last 24 Hours 06/10/17 06/11/17 06/12/17 23:59 23:59 23:59 Intake Total 1600 / 1600 750 / 750 Output Total 750 / 750 1600 / 1600 Balance 850 / 850 -850 / -850 Laboratory Results 06/11/17 17:17: POC Glucose 189 H 06/11/17 22:21: POC Glucose 128 H 06/12/17 06:43: POC Glucose 132 H 06/12/17 11:20: POC Glucose 116 H Current Medications Acetaminophen (Tylenol) 1,000 mg PO Q8H PRN PRN Amlodipine Besylate (Norvasc) 10 mg PO DAILY [facility] Ascorbic Acid (Vitamin C) 500 mg PO DAILY [facility] Last Admin: 06/12/17 12:32 Dose: 500 mg Aspirin (Aspirin) 325 mg PO BIDCM [facility] Last Admin: 06/12/17 12:31 Dose: 325 mg Atenolol (Tenormin (Beta Joselito)) 50 mg PO BID [facility] Last Admin: 06/12/17 07:19 Dose: 50 mg Cholecalciferol (Vitamin D) 1,000 unit PO DAILY [facility] Last Admin: 06/12/17 12:32 Dose: 1,000 unit Cyanocobalamin (Vitamin B12) 1,000 mcg PO DAILY [facility] Last Admin: 06/12/17 12:32 Dose: 1,000 mcg Dextrose (D50w Syringe) 0 gm IV X1 PRN; Protocol PRN Reason: Hypoglycemia Enoxaparin Sodium (Lovenox) 40 mg SC DAILY@1000 [facility] Last Admin: 06/12/17 12:38 Dose: 40 mg Famotidine (Pepcid) 20 mg PO DAILY [facility] Last Admin: 06/12/17 12:30 Dose: 20 mg Furosemide (Lasix) 20 mg PO QODAY [facility] Last Admin: 06/12/17 12:30 Dose: 20 mg Glucagon () 1 mg IM .X1 PRN PRN Reason: Hypoglycemia Glyburide (Micronase) 5 mg PO DAILY@0800 [facility] Last Admin: 06/12/17 12:31 Dose: 5 mg Sodium Chloride () 250 mls @ 15 mls/hr IV .[id number] PRN PRN Reason: SALINE FLUSH Vancomycin HCl 1,250 mg/ (Sodium Chloride) 275 mls @ 183.333 mls/hr IV Q24H [facility] Last Admin: 06/12/17 13:13 Dose: 183.333 mls/hr Piperacillin Sod/Tazobactam Sod (Zosyn) 3.375 gm in 50 mls @ 12.5 mls/hr IV Q8 [facility] Insulin Aspart (Novolog Flexpen (Bkc)) 0 units SC TIDAC [facility] PRN Reason: Protocol Last Admin: 06/12/17 12:32 Dose: Not Given Insulin Detemir (Levemir (Bkc)) 12 units SC QHS [facility] Last Admin: 06/11/17 22:23 Dose: 12 u Lisinopril (Zestril) 20 mg PO DAILY [facility] Last Admin: 06/12/17 07:20 Dose: 20 mg Magnesium Hydroxide (Milk Of Magnesia) 30 ml PO DAILY PRN PRN PRN Reason: Constipation Metformin HCl (Glucophage) 500 mg PO TIDCM [facility] Last Admin: 06/12/17 12:31 Dose: 500 mg Multivitamins (Multivitamin) 1 tablet PO DAILY@0800 [facility] Last Admin: 06/12/17 12:30 Dose: 1 tablet Ondansetron HCl (Zofran) 4 mg IV Q8H PRN PRN PRN Reason: Nausea Oxycodone HCl (Oxyir) 5 mg PO Q4H PRN PRN PRN Reason: PAIN Senna/Docusate Sodium (Senokot-S, Shakira-Colace) 2 tablet PO BID [facility] Last Admin: 06/12/17 12:31 Dose: 2 tablet Sodium Chloride () 5 - 30 ml IV UD PRN PRN Reason: SALINE FLUSH Last Admin: 06/11/17 14:20 Dose: 10 ml Medical Necessity - Tobacco Use Smoking Status: Never smoker Tobacco Use: Non-smoker Assessment/Plan Active and Suspected Problems Acute osteomyelitis of right hand including fingers (Acute) right index finger tip Diabetes with skin ulcer (Acute) nonhealing infected diabetic ulcer right index finger tip Cellulitis of right index finger (Acute) 76-year-old female with past medical history of hypertension, DM, type 2 admitted with right finger cellulitis 1. Right index finger ulcer/osteomyelitis/cellulitis, s/p distal phalangeal amputation, pain is controlled, on IV vancomycin and Zosyn, will continue on same medication, follow-up on pathology. 2. Hypertension, fairly uncontrolled, increase amlodipine to 10 mg p.o. daily, lisinopril 20 mg p.o. daily, atenolol 50 mg p.o. twice daily, continue to monitor vitals closely. 3. Type 2DM, HbA1c is 7.4, BS are fairly controlled, glyburide, metformin, Levemir and insulin sliding scale as well as Accu-Cheks. 4. DVT PPx - Lovenox SC Code Visit Inpatient E&M: 13640 Subs Hosp L2
--- NOTE | 2017-06-12 14:42 | PN_ITS ---
Patient Problems: Active and Suspected Problems Acute osteomyelitis of right hand including fingers (Acute) right index finger tip Diabetes with skin ulcer (Acute) nonhealing infected diabetic ulcer right index finger tip Cellulitis of right index finger (Acute) Subjective: Patient was seen and examined. She had right distal index finger amputation done today. Denies fever or chills or SOB. Appreciate plastic surgery and ID consult and recommendations to care. Objective: Physical Exam General: Alert, Cooperative, No apparent distress HEENT: Atraumatic, Normocephalic Oral: Moist Mucosa, No Gingival or Mucosal Lesions/ Ulcerations Neck: No Nodes, Thyroid Normal Size and Texture Lungs: Clear to auscultation, Normal air movement, No rhonchi, No wheeze Cardiovascular: Regular rate, Regular Rhythm, Normal S1, Normal S2, No murmurs Abdomen: Bowel Sounds Present, Soft, Non Tender, Non-Distended, No Hepato- splenomegaly Extremities: No Calf Tenderness, Edema - The distal right index finger. Skin: - - Erythema and swelling of the distal right index finger with lymphangitis upon the volar aspects of the arm. Slight erythema on right upper extremities that was almost petechial in nature. Musculoskeletal: No Tenderness to Palpation of Joints or Extremities, No Muscle Wasting, Arthritic Changes Neurological: Sensory exam intact to light touch and pain, Coordination normal Psych/Mental Status: Normal Affect, Appropriate Vitals/I&O's: Vital Signs Temp Pulse Resp BP Pulse Ox 98.4 F 58 L 16 171/81 H 98 06/12/17 14:15 06/12/17 14:15 06/12/17 14:15 06/12/17 14:15 06/12/17 14:15 Oxygen Delivery Method Room Air Weight: 74.6 kg Body Mass Index (BMI) 27.3 Intake and Output for Last 24 Hours 06/10/17 06/11/17 06/12/17 23:59 23:59 23:59 Intake Total 1600 / 1600 750 / 750 Output Total 750 / 750 1600 / 1600 Balance 850 / 850 -850 / -850 Laboratory Results 06/11/17 17:17: POC Glucose 189 H 06/11/17 22:21: POC Glucose 128 H 06/12/17 06:43: POC Glucose 132 H 06/12/17 11:20: POC Glucose 116 H Current Medications Acetaminophen (Tylenol) 1,000 mg PO Q8H PRN PRN Amlodipine Besylate (Norvasc) 10 mg PO DAILY [facility] Ascorbic Acid (Vitamin C) 500 mg PO DAILY [facility] Last Admin: 06/12/17 12:32 Dose: 500 mg Aspirin (Aspirin) 325 mg PO BIDCM [facility] Last Admin: 06/12/17 12:31 Dose: 325 mg Atenolol (Tenormin (Beta Joselito)) 50 mg PO BID [facility] Last Admin: 06/12/17 07:19 Dose: 50 mg Cholecalciferol (Vitamin D) 1,000 unit PO DAILY [facility] Last Admin: 06/12/17 12:32 Dose: 1,000 unit Cyanocobalamin (Vitamin B12) 1,000 mcg PO DAILY [facility] Last Admin: 06/12/17 12:32 Dose: 1,000 mcg Dextrose (D50w Syringe) 0 gm IV X1 PRN; Protocol PRN Reason: Hypoglycemia Enoxaparin Sodium (Lovenox) 40 mg SC DAILY@1000 [facility] Last Admin: 06/12/17 12:38 Dose: 40 mg Famotidine (Pepcid) 20 mg PO DAILY [facility] Last Admin: 06/12/17 12:30 Dose: 20 mg Furosemide (Lasix) 20 mg PO QODAY [facility] Last Admin: 06/12/17 12:30 Dose: 20 mg Glucagon () 1 mg IM .X1 PRN PRN Reason: Hypoglycemia Glyburide (Micronase) 5 mg PO DAILY@0800 [facility] Last Admin: 06/12/17 12:31 Dose: 5 mg Sodium Chloride () 250 mls @ 15 mls/hr IV .[id number] PRN PRN Reason: SALINE FLUSH Vancomycin HCl 1,250 mg/ (Sodium Chloride) 275 mls @ 183.333 mls/hr IV Q24H [facility] Last Admin: 06/12/17 13:13 Dose: 183.333 mls/hr Piperacillin Sod/Tazobactam Sod (Zosyn) 3.375 gm in 50 mls @ 12.5 mls/hr IV Q8 [facility] Insulin Aspart (Novolog Flexpen (Bkc)) 0 units SC TIDAC [facility] PRN Reason: Protocol Last Admin: 06/12/17 12:32 Dose: Not Given Insulin Detemir (Levemir (Bkc)) 12 units SC QHS [facility] Last Admin: 06/11/17 22:23 Dose: 12 u Lisinopril (Zestril) 20 mg PO DAILY [facility] Last Admin: 06/12/17 07:20 Dose: 20 mg Magnesium Hydroxide (Milk Of Magnesia) 30 ml PO DAILY PRN PRN PRN Reason: Constipation Metformin HCl (Glucophage) 500 mg PO TIDCM [facility] Last Admin: 06/12/17 12:31 Dose: 500 mg Multivitamins (Multivitamin) 1 tablet PO DAILY@0800 [facility] Last Admin: 06/12/17 12:30 Dose: 1 tablet Ondansetron HCl (Zofran) 4 mg IV Q8H PRN PRN PRN Reason: Nausea Oxycodone HCl (Oxyir) 5 mg PO Q4H PRN PRN PRN Reason: PAIN Senna/Docusate Sodium (Senokot-S, Shakira-Colace) 2 tablet PO BID [facility] Last Admin: 06/12/17 12:31 Dose: 2 tablet Sodium Chloride () 5 - 30 ml IV UD PRN PRN Reason: SALINE FLUSH Last Admin: 06/11/17 14:20 Dose: 10 ml Medical Necessity - Tobacco Use Smoking Status: Never smoker Tobacco Use: Non-smoker Assessment/Plan Active and Suspected Problems Acute osteomyelitis of right hand including fingers (Acute) right index finger tip Diabetes with skin ulcer (Acute) nonhealing infected diabetic ulcer right index finger tip Cellulitis of right index finger (Acute) 76-year-old female with past medical history of hypertension, DM, type 2 admitted with right finger cellulitis 1. Right index finger ulcer/osteomyelitis/cellulitis, s/p distal phalangeal amputation, pain is controlled, on IV vancomycin and Zosyn, will continue on same medication, follow-up on pathology. 2. Hypertension, fairly uncontrolled, increase amlodipine to 10 mg p.o. daily, lisinopril 20 mg p.o. daily, atenolol 50 mg p.o. twice daily, continue to monitor vitals closely. 3. Type 2DM, HbA1c is 7.4, BS are fairly controlled, glyburide, metformin, Levemir and insulin sliding scale as well as Accu-Cheks. 4. DVT PPx - Lovenox SC Code Visit Inpatient E&M: 26678 Subs Hosp L2
[2017-06-12] MEDS: oxyCODONE 5 MG Tablet PO ×2 (15:13→21:34)
[2017-06-12 16:30] LABS: Bedside Glucose 212 mg/dL (70-110)
[2017-06-12 20:00] VITALS: PULSE 56; RESP 16
[2017-06-12 20:15] VITALS: BP 152/74; PULSE 56; RESP 16; TEMP 36.6; O2SAT 96
[2017-06-12 22:01] LABS: Bedside Glucose 149 mg/dL (70-110)
[2017-06-13 02:00] VITALS: PULSE 53; RESP 16
[2017-06-13 06:35] LABS: Hematocrit 41.7 % (37-47); Hemoglobin 14.3 g/dl (12.0-15.0); Mean Corp Hgb Conc 34.3 g/gl (32-36); Mean Corpuscular Volume 87.4 fL (81-99); Mean Platelet Vol. 10.6 fl (6.2-12.0); Platelet Count 232 K/mm3 (150-450); RBC Distribution Width CV 14.1 % (11.6-14.6); RBC Distribution Width SD 44.8 fl (35.1-43.9); Red Blood Count 4.77 M/mm3 (4.2-5.4); White Blood Count 11.2 K/mm3 (4.4-11.0)
[2017-06-13 06:37] LABS: Scan Indicated on CBC? Y/N NO
[2017-06-13 06:43] LABS: Anion Gap 10 (5-15); BUN 22 mg/dL (7-18); Calcium,Total 8.8 mg/dL (8.5-10.1); Chloride 106 mmol/L (98-107); Creatinine, Serum 1.47 mg/dL (0.55-1.02); EST Glomerular Filtration Rate 37 mL/min (>60); Est Glom Filt Rate - Afr Amer 44 mL/min (>60); Glucose 95 mg/dL (74-106); Potassium 4.1 mmol/L (3.5-5.1); Sodium Level 139 mmol/L (136-145)
[2017-06-13 06:52] LABS: Erythrocyte Sedimentation Rate 34 mm/hr (0-30)
[2017-06-13 07:26] LABS: Bedside Glucose 110 mg/dL (70-110)
[2017-06-13 07:27] LABS: Hemoglobin A1c 7.1 % (4.2-6.3)
[2017-06-13] MEDS: Piperacil/Tazobactam 3.375 GM/50 ML ML IV (08:31)
[2017-06-13] MEDS: Famotidine 20 MG Tablet PO (08:31)
[2017-06-13] MEDS: Multivitamins,Therapeutic Tablet 1 TABLET PO (08:32)
[2017-06-13] MEDS: Lisinopril 20 MG Tablet PO (08:32)
[2017-06-13] MEDS: Aspirin 325 MG Tablet PO (08:32)
[2017-06-13] MEDS: Ascorbic Acid 500 MG Tablet PO (08:33)
[2017-06-13] MEDS: Atenolol 50 MG Tablet PO (08:33)
[2017-06-13] MEDS: Cyanocobalamin 500 MCG Tablet 1000 MCG PO (08:33)
[2017-06-13] MEDS: Enoxaparin 40 MG/0.4 ML Syringe SC (08:33)
[2017-06-13] MEDS: Senna/Docusate Sodium 1 Tablet 2 TABLET PO (08:34)
[2017-06-13] MEDS: amLODIPine 10 MG Tablet PO (08:35)
[2017-06-13 08:37] VITALS: BP 125/63; PULSE 55; RESP 16; TEMP 36.3; O2SAT 92
[2017-06-13] MEDS: 0.9% Normal Saline 1,000 ML 100 ML IV (11:10)
[2017-06-13 11:13] VITALS: BP 189/76; PULSE 61; RESP 16; TEMP 36.7; O2SAT 95
[2017-06-13 11:20] LABS: Bedside Glucose 251 mg/dL (70-110)
--- NOTE | 2017-06-13 11:45 | PCM.PN.ID ---
Patient Problems: Active and Suspected Problems Acute osteomyelitis of right hand including fingers (Acute) right index finger tip Diabetes with skin ulcer (Acute) nonhealing infected diabetic ulcer right index finger tip Cellulitis of right index finger (Acute) Subjective: Feeling great, wants to go home, no pain in finger. No fever, no n/v/d. - Physical Exam General: Alert, Cooperative Lungs: Clear to auscultation, Normal air movement Cardiovascular: Regular rate, Regular Rhythm Abdomen: Soft, Non Tender, Non-Distended Skin: Incision - wrapped Vital Signs Temp Pulse Resp BP Pulse Ox 98.1 F 61 16 189/76 H 95 06/13/17 11:13 06/13/17 11:13 06/13/17 11:13 06/13/17 11:13 06/13/17 11:13 Oxygen Delivery Method Room Air Weight: 74.6 kg Body Mass Index (BMI) 27.3 Intake and Output for Last 24 Hours 06/11/17 06/12/17 06/13/17 23:59 23:59 23:59 Intake Total 1600 / 1600 1150 / 1150 1795 / 1795 Output Total 750 / 750 2100 / 2100 1200 / 1200 Balance 850 / 850 -950 / -950 595 / 595 Microbiology Past 72 Hours 06/12/17 Unknown Gram Stain - Final Tissue - Finger Wound Culture - Preliminary Streptococcus group B 06/12/17 Unknown Gram Stain - Final Bone - Right Hand Wound Culture - Preliminary Streptococcus group B Laboratory Tests Past 24 Hrs 06/13/17 06/13/17 06/13/17 06:15 06:15 06:15 WBC 11.2 H RBC 4.77 Hgb 14.3 Hct 41.7 MCV 87.4 MCH 30.0 MCHC 34.3 RDW 14.1 RDW Differential 44.8 H Plt Count 232 MPV 10.6 ESR 34 H Sodium 139 Potassium 4.1 Chloride 106 Carbon Dioxide 23.0 Anion Gap 10 BUN 22 H Creatinine 1.47 H Estim Creat Clear Calc 29.30 Est GFR (MDRD) Af Amer 44 L Est GFR (MDRD) Non-Af 37 L BUN/Creatinine Ratio 15.0 Glucose 95 Hemoglobin A1c 7.1 H Calcium 8.8 C-React Prot Ext Range 20.80 H POC Glucose 06/13/17 06/13/17 06/12/17 11:08 07:00 21:26 POC Glucose 251 H 110 149 H 03/22/18 03/22/18 16:24 11:20 POC Glucose 212 H 116 H Medical Necessity - Tobacco Use Smoking Status: Never smoker Tobacco Use: Non-smoker Route of nutrition/ use of supplements: [] Nutritional Intake: [] IV Site: [] Mosher Catheter: [] - Assessment/Plan Antibiotics: [] Assessment/Plan: [] Active and Suspected Problems Acute osteomyelitis of right hand including fingers (Acute) right index finger tip Diabetes with skin ulcer (Acute) nonhealing infected diabetic ulcer right index finger tip Cellulitis of right index finger (Acute) R 2nd finger osteo - now s/p 06/[address] iJmenez. On broad coverage with vanc/zosyn. Cxs remain neg so far. If she is discharged before cultures are finalized, would recommend her leaving on po doxy 100mg bid and po augmentin 875mg bid for 5 more days. If cxs turn (+), will adjust abx and duration. D/w Dr. Butcher, will follow.
--- NOTE | 2017-06-13 11:55 | OP.PCM_ITS ---
Report of Operation Date of Procedure: 06/12/17 Pre-Operative Diagnosis: 1. Nonhealing infected diabetic ulcer right index finger tip. 2. Cellulitis right index finger. 3. Osteomyelitis distal phalanx right index finger tip. 4. Diabetes mellitus. 5. History of MRSA. Post-Operative Diagnosis: Same. Surgery/Procedure Performed:: Surgical preparation right index finger tip with excisional debridement nonhealing infected diabetic ulcer with partial ostectomy for osteomyelitis and amputation through middle phalanx. Description of Surgical Findings:: The patient is a 76 year old F who tore part of her right index finger fingernail on a bed sheet about 2 weeks ago. She clipped it off but there was a wound. Patient was treating it with Betadine. Yesterday it became much more erythematous and swollen that persisted today and she came to the ED for evaluation. 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 In the ED the patient was treated with IV vancomycin. It was noted she had an ulceration at the tip of her right index finger. She is right hand dominant. Patient had a hand x-ray that showed severe osteoarthritis of the DIP and no obvious osteomyelitis was noted. MRI was done which was suspicious for osteomyelitis. Patient was informed of the risks and complications of the procedure including alternatives to surgery. These were discussed with her personally. She voices understanding and wishes to proceed. Some of the risks and complications that were discussed included but were not inclusive of failure to diagnose including symptom relief, pain, infection, numbness, stiffness, loss of digit, RSD, need for further surgery, contracture, and wound healing problems. Total tourniquet time - 36 minutes. finance mgr: None Type of Anesthesia:: Local - Marcaine digital metacarpal block per anesthesia. Specimen's removed: 1. Nonhealing infected diabetic ulcer right index finger tip soft tissue to Pathology and Microbiology. 2. Nonhealing infected diabetic ulcer right index finger tip distal phalanx bone to Pathology and Microbiology. Drains: None. Estimated Blood Loss (mL): 2 ml. Description of Procedure: In the preop area, anesthesia performed a local digital metacarpal block to her right index finger using Marcaine. Patient was then taken to OR in supine position. Her right hand was prepped and draped in the usual fashion. SCD's were placed for DVT prophylaxis. Perioperative antibiotics were given intravenously. A tourniquet was placed at the base of the right index finger. Using loupe magnification, I probed the ulceration and it extended down to the distal phalanx bone. A partial ostectomy of the distal phalanx was done using a rongeur. Half the bone was sent to Pathology for analysis to evaluate for osteomyelitis. Half the bone was sent to Microbiology for culture. I also debrided the soft tissue ulcer with a scalpel. Half the soft tissue was sent to Microbiology for culture. The rest of the ulcer will be sent with the amputated stump to Pathology. It was decided to proceed with an amputation since most of the distal phalanx bone was involved with the infection and the debridement and the skin of the tip of the finger did not look very viable. Therefore markings were made anteriorly and posteriorly at the level of the middle phalanx. The posterior skin flap was longer to advance anteriorly onto the dorsum of the finger. Because of the severity of her arthritis and the swelling seen at the DIP joint, it was felt a safer level for the amputation would be into the distal aspect of the middle phalanx. Incisions were made down through the extensor tendon dorsally and the flexor tendon volarly until the bone was seen. I freed up the soft tissue off the bone with a periosteal elevator. I then removed the remaining distal phalangeal base to expose the articular surface of the middle phalanx. The articular surface was not very smooth indicative of arthritic changes. I freed up more of the soft tissue off the bone proximally on the middle phalanx in preparation for the osteotomy. Using an oscillating saw, I excised the distal portion of the middle phalanx including the articular surface as the amputation was through the middle phalanx. I used a rasp to smooth out the bony edges. I dissected out the radial and ulnar digital nerves and placed them on stretch. I excised them as the nerves retracted more proximally to minimize neuroma formation at the stump. The wound was irrigated with saline. The posterior skin flap was advanced anteriorly onto the dorsum and secured in multiple layers with 5-0 Monocryl interrupted sutures for the deep dermis. The skin was aproximated with 5-0 Nylon simple interrupted and vertical mattress interrupted sutures. The tourniquet was released afte 36 minutes. No vascular compromise was noted on the skin flaps. Antibiotic ointment was applied to the incision followed by xeroform gauze and 2x2 gauze and secured with a 2 inch taisha wrap. Patient tolerated the procedure well and was sent to PACU in satisfactory condition. Since this surgery required no IV sedation, she was quickly sent back upstairs for further postop care. I anticipate discharge from the hospital tomorrow on oral antibiotics. When the cultures are available, antibiotic modification may be necessary. Will leave the dressing on until seen in the office in a week. Will remove the sutures in 2-3 weeks. After discharge, will encourage range of motion exercises to minimize stiffness. If stiffness occurs, will need to be evaluated at OT for range of motion exercises, strengthening, and edema management. Grafts/Implants Used: None. - Complications None. - Admit VTE Documentation VTE Present on Admission: No VTE Mechan Device Prophylaxis: SCD's VTE Pharm Prophylaxis ordered?: Yes Code Visit Surgery Charges CPT - 49263 ICD-10 - E11.622, L03.011, M86.141, Z86.14
--- NOTE | 2017-06-13 12:05 | PCM.PN.SRG ---
Subjective: Postop #1 Patient is resting comfortably. - Physical Exam General: Alert, Oriented x3 HEENT: PERRLA, EOMI Neck: Supple Lungs: Clear to auscultation Cardiovascular: Regular rate, Regular Rhythm Abdomen: Soft, Non-Distended Skin: - - right index finger dressing is dry. Mild tenderness. Will change the dressing in the office. She will wear a plastic bag over the right hand when showering. Neurological: Cranial nerves II-XII grossly intact Psych/Mental Status: Normal Affect, Appropriate Vital Signs Temp Pulse Resp BP Pulse Ox 98.1 F 61 16 189/76 H 95 06/13/17 11:13 06/13/17 11:13 06/13/17 11:13 06/13/17 11:13 06/13/17 11:13 Oxygen Delivery Method Room Air Weight: 164 lb 7.437 oz Body Mass Index (BMI) 27.3 Intake and Output for Last 24 Hours 06/11/17 06/12/17 06/13/17 23:59 23:59 23:59 Intake Total 1600 / 1600 1150 / 1150 1795 / 1795 Output Total 750 / 750 2100 / 2100 1200 / 1200 Balance 850 / 850 -950 / -950 595 / 595 Microbiology Past 72 Hours 06/12/17 Unknown Gram Stain - Final Tissue - Finger Wound Culture - Preliminary Streptococcus group B 06/12/17 Unknown Gram Stain - Final Bone - Right Hand Wound Culture - Preliminary Streptococcus group B Pathology - pending. Laboratory Tests Past 24 Hrs 06/13/17 06/13/17 06/13/17 06:15 06:15 06:15 WBC 11.2 H RBC 4.77 Hgb 14.3 Hct 41.7 MCV 87.4 MCH 30.0 MCHC 34.3 RDW 14.1 RDW Differential 44.8 H Plt Count 232 MPV 10.6 ESR 34 H Sodium 139 Potassium 4.1 Chloride 106 Carbon Dioxide 23.0 Anion Gap 10 BUN 22 H Creatinine 1.47 H Estim Creat Clear Calc 29.30 Est GFR (MDRD) Af Amer 44 L Est GFR (MDRD) Non-Af 37 L BUN/Creatinine Ratio 15.0 Glucose 95 Hemoglobin A1c 7.1 H Calcium 8.8 C-React Prot Ext Range 20.80 H POC Glucose 06/13/17 06/13/17 06/12/17 11:08 07:00 21:26 POC Glucose 251 H 110 149 H 06/12/17 16:24 POC Glucose 212 H Medical Necessity - Tobacco Use Smoking Status: Never smoker Tobacco Use: Non-smoker Assessment/Plan 1. Nonhealing infected diabetic ulcer right index finger tip. 2. Cellulitis right index finger. 3. Osteomyelitis distal phalanx right index finger tip. 4. Diabetes mellitus. 5. History of MRSA. 6. s/p surgical preparation right index finger tip with excisional debridement nonhealing infected diabetic ulcer with partial ostectomy for osteomyelitis and amputation through middle phalanx. Dressing is dry. She has manageable tenderness. She is anxious to go home. Operative culture shows Streptococcus group B in both the soft tissue and bone. She will be discharged on Doxycycline and Augmentin. Pathology is pending. She will wear a plastic bag over the right hand when showering. She will keep her right hand elevated. Wrote a script for Percocet for pain (40 tabs). Followup office in one week. Will remove the sutures in 2-3 weeks. After dressing removed in the office, will encourage range of motion exercises to minimize stiffness. Depending on her degree of stiffness in her right hand will determine if OT is necessary for range of motion exercises, strengthening and edema management.
--- NOTE | 2017-06-13 12:37 | PCM.DC ---
- Discharge Diagnoses Current Active Problems: Current Active and Chronic Problems Acute osteomyelitis of right hand including fingers (Acute) right index finger tip Diabetes with skin ulcer (Acute) nonhealing infected diabetic ulcer right index finger tip Cellulitis of right index finger (Acute) CKD (chronic kidney disease), stage III (Chronic) CAD (coronary artery disease) (Chronic) Osteoarthritis (Chronic) Reason(s) for Visit for Discharge Instructions: Right index finger swelling and redness You will use the following diet at home:: Calorie/Carbohydrate Controlled (specify 1200, 1400, etc), Cardiac Your food should be the consistency of: Regular Your liquids should be the consistency of: Regular/Thin Discharge Activity: Return to Normal Activity Allergies/Adverse Reactions: Allergies adhesive Allergy (Verified 12/09/16 10:08) Unknown red skin, uses paper tape and is okay with this atorvastatin calcium [From Lipitor] Allergy (Verified 12/09/16 10:08) Unknown joint pain bacitracin [From Neosporin ([id number])] Allergy (Verified 12/09/16 10:08) Unknown rash bacitracin zinc [From Neosporin ([id number])] Allergy (Verified 12/09/16 10:08) Unknown rash fenofibrate nanocrystallized [From Tricor] Allergy (Verified 12/09/16 10:08) Unknown upset gi or muscle pain fenofibrate,micronized [From Tricor] Allergy (Verified 12/09/16 10:08) Unknown flurbiprofen Allergy (Verified 12/09/16 10:08) Unknown upset stomach gemfibrozil Allergy (Verified 12/09/16 10:08) Unknown upset stomach glipizide [From Glucotrol] Allergy (Verified 12/09/16 10:08) Unknown dizzy, upset gi neomycin sulfate [From Neosporin ([id number]-[id number])] Allergy (Verified 12/09/16 10:08) Unknown rash polymyxin B [From Neosporin (wui-pyv-[id number])] Allergy (Verified 12/09/16 10:08) Unknown rash pravastatin Adverse Reaction (Verified 12/09/16 11:56) Other MUSCLE PAIN Medications to take at Discharge Insulin Glargine [Lantus SoloStar Pen] 12 units SC QHS 08/26/15 Lisinopril [Zestril] 20 mg PO DAILY 08/26/15 Metformin HCl [Glucophage] 500 mg PO TIDCM 08/26/15 glyBURIDE [Micronase] 5 mg PO DAILY@0800 08/26/15 Ascorbic Acid [Vitamin C] 500 mg PO DAILY 12/09/16 Atenolol [Tenormin (beta charlie)] 50 mg PO BID 12/09/16 Cholecalciferol (Vitamin D3) [Vitamin D3] 1,000 unit PO DAILY 12/09/16 Cyanocobalamin (Vitamin B-12) [Vitamin B-12] 1,000 mcg PO DAILY 12/09/16 Multivitamin [Multiple Vitamins] 1 each PO DAILY 12/09/16 [place]-3 Fatty Acids/Fish Oil [[place] 3 Fish Oil Softgel] 1 each PO BID 12/09/16 Furosemide [Lasix] 20 mg PO QODAY 12/25/16 Acetaminophen [Tylenol] 1,000 mg PO Q8H PRN PRN 06/10/17 Aspirin 81 mg PO 06/11/17 Amlodipine [Norvasc] 10 mg PO DAILY #30 tab 06/13/17 Amoxicillin/Potassium Clav [Augmentin 875-125 Tablet] 1 ea PO BID #10 tab 06/13/17 Doxycycline 100 mg PO BID #10 cap 06/13/17 Oxycodone HCl/Acetaminophen [Percocet 5/325] 1 - 2 tab PO 4X/DAY PRN PRN 5 Days #40 tab 06/13/17 The following prescriptions were given: Amlodipine [Norvasc] 10 mg PO DAILY #30 tab Oxycodone HCl/Acetaminophen [Percocet 5/325] 1 - 2 tab PO 4X/DAY PRN PRN 5 Days #40 tab PRN Reason: Pain Amoxicillin/Potassium Clav [Augmentin 875-125 Tablet] 1 ea PO BID #10 tab Doxycycline 100 mg PO BID #10 cap Primary Care Physician: Kelsy Mensah MD [Primary Care Provider] - Please follow up with your Primary Care Physician in: within 2 weeks Please Follow Up With: Pepe Jimenez MD When: in 1 week Please Follow Up With: Loki Rico MD When: within 2 weeks Proposed Discharge Date: 06/13/17
--- NOTE | 2017-06-13 12:41 | DCINST_ITS ---
- Discharge Diagnoses Current Active Problems: Current Active and Chronic Problems Acute osteomyelitis of right hand including fingers (Acute) right index finger tip Diabetes with skin ulcer (Acute) nonhealing infected diabetic ulcer right index finger tip Cellulitis of right index finger (Acute) CKD (chronic kidney disease), stage III (Chronic) CAD (coronary artery disease) (Chronic) Osteoarthritis (Chronic) Reason(s) for Visit for Discharge Instructions: Right index finger swelling and redness You will use the following diet at home:: Calorie/Carbohydrate Controlled ( specify 1200, 1400, etc), Cardiac Your food should be the consistency of: Regular Your liquids should be the consistency of: Regular/Thin Discharge Activity: Return to Normal Activity Allergies/Adverse Reactions: Allergies adhesive Allergy (Verified 12/09/16 10:08) Unknown red skin, uses paper tape and is okay with this atorvastatin calcium [From Lipitor] Allergy (Verified 12/09/16 10:08) Unknown joint pain bacitracin [From Neosporin (ars-fwf-ekxwc)] Allergy (Verified 12/09/16 10:08) Unknown rash bacitracin zinc [From Neosporin (czi-qmr-sscax)] Allergy (Verified 12/09/16 10: 08) Unknown rash fenofibrate nanocrystallized [From Tricor] Allergy (Verified 12/09/16 10:08) Unknown upset gi or muscle pain fenofibrate,micronized [From Tricor] Allergy (Verified 12/09/16 10:08) Unknown flurbiprofen Allergy (Verified 12/09/16 10:08) Unknown upset stomach gemfibrozil Allergy (Verified 12/09/16 10:08) Unknown upset stomach glipizide [From Glucotrol] Allergy (Verified 12/09/16 10:08) Unknown dizzy, upset gi neomycin sulfate [From Neosporin (vfj-vke-jqmoc)] Allergy (Verified 12/09/16 10: 08) Unknown rash polymyxin B [From Neosporin ([id number]-eub-kxbij)] Allergy (Verified 12/09/16 10:08) Unknown rash pravastatin Adverse Reaction (Verified 12/09/16 11:56) Other MUSCLE PAIN Medications to take at Discharge Insulin Glargine [Lantus SoloStar Pen] 12 units SC QHS 08/26/15 Lisinopril [Zestril] 20 mg PO DAILY 08/26/15 Metformin HCl [Glucophage] 500 mg PO TIDCM 08/26/15 glyBURIDE [Micronase] 5 mg PO DAILY@0800 08/26/15 Ascorbic Acid [Vitamin C] 500 mg PO DAILY 12/09/16 Atenolol [Tenormin (beta charlie)] 50 mg PO BID 12/09/16 Cholecalciferol (Vitamin D3) [Vitamin D3] 1,000 unit PO DAILY 12/09/16 Cyanocobalamin (Vitamin B-12) [Vitamin B-12] 1,000 mcg PO DAILY 12/09/16 Multivitamin [Multiple Vitamins] 1 each PO DAILY 12/09/16 [place]-3 Fatty Acids/Fish Oil [[place] 3 Fish Oil Softgel] 1 each PO BID 12/09/16 Furosemide [Lasix] 20 mg PO QODAY 12/25/16 Acetaminophen [Tylenol] 1,000 mg PO Q8H PRN PRN 06/10/17 Aspirin 81 mg PO 06/11/17 Amlodipine [Norvasc] 10 mg PO DAILY #30 tab 06/13/17 Amoxicillin/Potassium Clav [Augmentin 875-125 Tablet] 1 ea PO BID #10 tab Doxycycline 100 mg PO BID #10 cap 06/13/17 Oxycodone HCl/Acetaminophen [Percocet 5/325] 1 - 2 tab PO 4X/DAY PRN PRN 5 Days #40 tab 06/13/17 The following prescriptions were given: Amlodipine [Norvasc] 10 mg PO DAILY #30 tab Oxycodone HCl/Acetaminophen [Percocet 5/325] 1 - 2 tab PO 4X/DAY PRN PRN 5 Days #40 tab PRN Reason: Pain Amoxicillin/Potassium Clav [Augmentin 875-125 Tablet] 1 ea PO BID #10 tab Doxycycline 100 mg PO BID #10 cap Primary Care Physician: Kelsy Mensah MD [Primary Care Provider] - Please follow up with your Primary Care Physician in: within 2 weeks Please Follow Up With: Pepe Jimenez MD When: in 1 week Please Follow Up With: Loki Rico MD When: within 2 weeks Proposed Discharge Date: 06/13/17
--- NOTE | 2017-06-13 12:41 | PCM.DC.SUM ---
Discharge Date and Diagnosis Date of Admission: 06/10/17 Date of Discharge: 06/13/17 - Primary Discharge Diagnosis Active and Suspected Problems Acute osteomyelitis of right hand including fingers (Acute) right index finger tip Diabetes with skin ulcer (Acute) nonhealing infected diabetic ulcer right index finger tip Cellulitis of right index finger (Acute) - Secondary Discharge Diagnosis Chronic Problems CKD (chronic kidney disease), stage III (Chronic) CAD (coronary artery disease) (Chronic) Osteoarthritis (Chronic) CKD (chronic kidney disease) (Chronic) History of MRSA infection (Chronic) Osteomyelitis of left foot (Chronic) Hypertension (Chronic) Peripheral arterial disease (Chronic) Type 2 diabetes mellitus (Chronic) Rheumatoid arthritis (Chronic) Hospital Course and Treatment Imaging Results: Clinical Impression(s) from Imaging Studies Hand X-Ray 06/10/17 16:34 IMPRESSION: Severe osteoarthritic change of the distal interphalangeal joint of the second digit. I do not identify osseous erosion to suggest underlying osteomyelitis though MRI or three-phase bone scan would have greater sensitivity to detection of underlying osteomyelitis. See above. Electronically Signed: Charla Negrete MD at 17:50 EDT Tel , Service support , Upper Extremity MRI 06/11/17 07:08 IMPRESSION: There are bone marrow changes seen associated with the distal phalanx of the second and fourth digits that are compatible with underlying osteomyelitis. Electronically Signed: Charla Negrete MD at 14:29 EDT Tel , Service support , Operations: None, - - Transmetatarsal amputation of the left great toe Procedures: None Summary of Care Provided: 76-year-old female with past medical history of hypertension, DM, type 2 admitted with right finger cellulitis 1. Right index finger ulcer/osteomyelitis/cellulitis, MRI positive for distal phalangeal osteomyelitis, s/p distal phalangeal amputation, pain was controlled, managed initially on IV vancomycin and Zosyn, discharged on doxycycline and augmentin. Bone culture grew streptococcus agalactiae and staphylococcus. 2. Hypertension, was initially uncontrolled, amlodipine increased to 10 mg p.o. daily, continued on lisinopril 20 mg p.o. daily, atenolol 50 mg p.o. twice daily, 3. Type 2DM, HbA1c is 7.4, BS controlled on glyburide, metformin, Levemir and insulin sliding scale as well as Accu-Cheks. Discharge Diet: No Restrictions Discharge Activity: Return to Normal Activity Home Medications: Medications to take at Discharge Insulin Glargine [Lantus SoloStar Pen] 12 units SC QHS 08/26/15 Lisinopril [Zestril] 20 mg PO DAILY 08/26/15 Metformin HCl [Glucophage] 500 mg PO TIDCM 08/26/15 glyBURIDE [Micronase] 5 mg PO DAILY@0800 08/26/15 Ascorbic Acid [Vitamin C] 500 mg PO DAILY 12/09/16 Atenolol [Tenormin (beta charlie)] 50 mg PO BID 12/09/16 Cholecalciferol (Vitamin D3) [Vitamin D3] 1,000 unit PO DAILY 12/09/16 Cyanocobalamin (Vitamin B-12) [Vitamin B-12] 1,000 mcg PO DAILY 12/09/16 Multivitamin [Multiple Vitamins] 1 each PO DAILY 12/09/16 [place]-3 Fatty Acids/Fish Oil [[place] 3 Fish Oil Softgel] 1 each PO BID 12/09/16 Furosemide [Lasix] 20 mg PO QODAY 12/25/16 Acetaminophen [Tylenol] 1,000 mg PO Q8H PRN PRN 06/10/17 Aspirin 81 mg PO 06/11/17 Amlodipine [Norvasc] 10 mg PO DAILY #30 tab 06/13/17 Amoxicillin/Potassium Clav [Augmentin 875-125 Tablet] 1 ea PO BID #10 tab 06/13/17 Doxycycline 100 mg PO BID #10 cap 06/13/17 Oxycodone HCl/Acetaminophen [Percocet 5/325] 1 - 2 tab PO 4X/DAY PRN PRN 5 Days #40 tab 06/13/17 Following Prescrptions Were Given to Patient: Amlodipine [Norvasc] 10 mg PO DAILY #30 tab Oxycodone HCl/Acetaminophen [Percocet 5/325] 1 - 2 tab PO 4X/DAY PRN PRN 5 Days #40 tab PRN Reason: Pain Amoxicillin/Potassium Clav [Augmentin 875-125 Tablet] 1 ea PO BID #10 tab Doxycycline 100 mg PO BID #10 cap Primary Care Physician: Kelsy Mensah MD [Primary Care Provider] - Please follow up with your Primary Care Physician in: within 2 weeks Please Follow Up With: Pepe Jimenez MD When: in 1 week Please Follow Up With: Loki Rico MD When: within 2 weeks Disposition: Home Minutes spent on discharge:: 25 Patient Condition:: Stable Medical Necessity - Tobacco Use Smoking Status: Never smoker Tobacco Use: Non-smoker Meaningful Use Info Meaningful Use Diagnoses (Choose all that apply): None applicable Code Visit Inpatient E&M: 99525 Disch Hosp
== END 2017-06-13 13:39 | disposition home or self-care (01) | DRG 988 ==
LOC: ED 16:58 → MS3 19:42
PROVIDERS: Surgery; Emergency Provider Emergency Medicine; Family Provider Internal Medicine; PCP Internal Medicine; Visit Provider Internal Medicine
PROC: 0X6N0Z2 Detachment at Right Index Finger, Mid, Open Approach (ICD-10-PCS; principal; 2017-06-12 08:45)
DX: E11.69 Type 2 diabetes mellitus with other specified complication (principal); M86.141 Other acute osteomyelitis, right hand; L98.499 Non-pressure chronic ulcer of skin of other sites with unspecified severity; E11.22 Type 2 diabetes mellitus with diabetic chronic kidney disease; E11.622 Type 2 diabetes mellitus with other skin ulcer; B95.8 Unspecified staphylococcus as the cause of diseases classified elsewhere; L03.011 Cellulitis of right finger; M06.9 Rheumatoid arthritis, unspecified; N18.3 Chronic kidney disease, stage 3 (moderate); B95.1 Streptococcus, group B, as the cause of diseases classified elsewhere; Z79.4 Long term (current) use of insulin; Z86.14 Personal history of Methicillin resistant Staphylococcus aureus infection; I25.10 Atherosclerotic heart disease of native coronary artery without angina pectoris; Z89.412 Acquired absence of left great toe; Z89.421 Acquired absence of other right toe(s); I12.9 Hypertensive chronic kidney disease with stage 1 through stage 4 chronic kidney disease, or unspecified chronic kidney disease; Z79.899 Other long term (current) drug therapy; I73.9 Peripheral vascular disease, unspecified; S61.310A Laceration without foreign body of right index finger with damage to nail, initial encounter; X58.XXXA Exposure to other specified factors, initial encounter; Y92.009 Unspecified place in unspecified non-institutional (private) residence as the place of occurrence of the external cause
CPT/HCPCS: 36415; 73130; 73218; 80048; 80053; 82962; 83036; 84134; 85025; 85027; 85652; 86140; 87040; 87070; 87075; 87076; 87077; 87102; 87186; 87205; 87206; 87640; 88304; 88305; 88311; 93005; 99284; J7030; J7040; J7050; A4216

== ENCOUNTER → 2017-06-23 09:04 | Outpatient (CLI) | payer OTHER, SELFPAY ==
[2017-06-23 10:14] LABS: Absolute Neutrophil Count 8.5 X10^3/uL (2.0-7.7); Basophil# 0.06 X10^3/uL; Basophil% 0.4 % (0-1); Eosinophil# 0.32 X10^3/uL; Eosinophils% 2.1 % (0-5); Hematocrit 41.5 % (37-47); Hemoglobin 14.2 g/dl (12.0-15.0); Lymphocyte % 30.2 % (19-41); Mean Corp Hgb Conc 34.2 g/gl (32-36); Mean Corpuscular Hgb 30.1 pg (27.0-32.0); Mean Corpuscular Volume 88.1 fL (81-99); Mean Platelet Vol. 10.8 fl (6.2-12.0); Monocyte# 1.34 X10^3/uL; Neutrophil # 8.52 X10^3/uL (2.7-7.7); Neutrophil % 57.2 % (47-70); Platelet Count 300 K/mm3 (150-450); RBC Distribution Width CV 14.5 % (11.6-14.6); RBC Distribution Width SD 46.4 fl (35.1-43.9); Red Blood Count 4.71 M/mm3 (4.2-5.4); White Blood Count 14.9 K/mm3 (4.4-11.0)
[2017-06-23 10:20] LABS: POSITIVE COUNT NO; POSITIVE DIFFERENTIAL NO; POSITIVE MORPHOLOGY NO
[2017-06-23 10:39] LABS: Anion Gap 11 (5-15); BUN 25 mg/dL (7-18); BUN/Creat Ratio 20.8 RATIO (10-20); Calcium,Total 9.2 mg/dL (8.5-10.1); Chloride 108 mmol/L (98-107); EST Glomerular Filtration Rate 46 mL/min (>60); Est Glom Filt Rate - Afr Amer 56 mL/min (>60); Glucose 118 mg/dL (74-106); Potassium 4.7 mmol/L (3.5-5.1); Sodium Level 139 mmol/L (136-145)
== END ==
PROVIDERS: Family Provider Internal Medicine; PCP Internal Medicine; Visit Provider Internal Medicine
DX: N18.9 Chronic kidney disease, unspecified (principal); M86.9 Osteomyelitis, unspecified
CPT/HCPCS: 36415; 80048; 85025

== ENCOUNTER → 2017-11-04 17:48 | Outpatient (CLI) | payer OTHER, SELFPAY ==
[2017-11-04 21:38] LABS: M R Staph aureus DNA By PCR Negative (Negative); Probe Check PASS; Staph aureus DNA By PCR NEGATIVE (Negative)
== END ==
PROVIDERS: Family Provider Internal Medicine; PCP Internal Medicine; Visit Provider Podiatrist
DX: L03.032 Cellulitis of left toe (principal)
CPT/HCPCS: 87070; 87077; 87186; 87205; 87640

== ENCOUNTER 2017-12-05 18:01 | Inpatient (IN) | payer OTHER, SELFPAY ==
[2017-12-05 18:02] VITALS: BP 152/75; PULSE 62; RESP 18; TEMP 37.1; O2SAT 96; BMI 29.0
--- NOTE | 2017-12-05 18:28 | CT_ITS ---
STUDY: CT ABDOMEN AND PELVIS WITH CONTRAST REASON FOR EXAM: Female, 76 years old. Lower abdominal pain. RADIATION DOSAGE (If Supplied By Facility): CTDIvol = ( 18.08 ) mGy, DLP = ( 973.02 ) mGycm TECHNIQUE: Transaxial images were obtained from the dome of the diaphragm to the symphysis pubis without oral contrast. 100 ml of Isovue 300 contrast was administered. Sagittal and coronal images were reconstructed. Individualized dose optimization techniques were used for this CT. COMPARISON: August 26, 2015 FINDINGS: The visualized lung bases are unremarkable. There are coronary artery calcifications present. There is free fluid within the upper abdomen most pronounced within the right upper quadrant. Normal liver. There is non-visualization of the gallbladder, which may be secondary to either contraction or a prior cholecystectomy. Normal spleen. Normal pancreas. Normal bilateral adrenal glands. Normal right kidney. There is left renal atrophy again visualized. There are left renal cysts present. Normal visualized stomach. Normal small intestine. There are multiple colonic diverticula consistent with diverticulosis, most pronounced within the descending and sigmoid colon. There is circumferential wall thickening of the sigmoid colon that is grossly stable since the prior examination and appears to be secondary to its incompletely distended state. There is non-visualization of the appendix. There is diffuse atherosclerotic calcification of the abdominal aorta, without a demonstrated aneurysm. Normal inferior vena cava. Normal retroperitoneum. Normal urinary bladder. There is mild edema within the omentum. There is a small umbilical hernia containing fat. There are diffuse degenerative changes of the visualized lumbar spine. There is a stable grade 1 anterior spondylolisthesis of L4 on L5. CT/Abdomen/Pelvis W IV Cont ONLY IMPRESSION: Colonic diverticulosis. Mild ascites. Atherosclerosis. Degenerative changes. Electronically Signed: Merle Benito MD at 19:40 EDT Tel , Service support ,
[2017-12-05] MEDS: 0.9% Normal Saline 1,000 ML 1000 ML IV (18:31)
--- NOTE | 2017-12-05 18:33 | ED.DCSUM_ITS ---
- ER Visit Summary Date of Service: 12/05/17 Chief Complaint: Abdominal pain with nausea vomiting History of Present Illness: The patient is a 76 F history of insulin-dependent diabetes, coronary disease and diverticulitis. Status post appendectomy, cholecystectomy, hysterectomy and prior four-way bypass. Patient states yesterday she had onset of lower abdominal pain with nausea vomiting. No diarrhea. No dysuria. Low-grade fever at home of 100.3. She is able to keep fluids down. She believes this to be diverticulitis again. Physical Examination: Vital signs stable. Afebrile. She does not look septic or toxic. She does not look significantly dehydrated. H EENT exam unremarkable. Neck nontender. Lungs clear to auscultation bilaterally. Heart regular rhythm no murmur. Abdomen soft nondistended normal bowel sounds no peritoneal signs. She does have bilateral lower quadrant tenderness. She has an umbilical hernia that easily reduces and is not tender. There are no signs of obstruction. She is moving both lower extremities. Back exam nontender. Neurologically she is awake alert. Following commands. Moving all 4 extremities. Test Results: 700. Normal hemoglobin. No bands. Electrolytes show sodium 132. Gap of 10. BUN 27 creatinine 1.36. Has had renal insufficiency in the past. UA normal. CT abdomen and pelvis done with IV contrast only shows colonic diverticulosis. Mild ascites. An umbilical hernia which is seen on exam. And degenerative lumbar arthritis. The do not describe any diverticulitis per the radiologist. There is no perforation. Emergency Department Course and Treatment: Treated with IV fluids, Zofran. She did not want any pain medications at this time. Screening labs along with a CT abdomen and pelvis with IV contrast to be obtained. Treatment Plan: Repeat exam patient feels better with IV fluids. She still has bilateral lower quadrant tenderness. She denies and her female friend at bedside described all of her test results. In light that she is older and has such a high white count. And has continued abdominal pain I do feel she needs to be admitted. She is comfortable with that plan. Currently she has no signs of mesenteric ischemia. I spoke to the hospitalist who is down the ER and will admit her. Disposition: admission Impression: Acute abdominal pain of uncertain etiology Leukocytosis Acute nausea and vomiting History of insulin-dependent diabetes History of prior CABG This note was generated with [employer] software. It may contain incorrect words, spelling, and punctuation that were not noted in review of the chart prior to signing ED Disposition - Plan for ED Patient: Chief Complaint: Nausea/Vomiting Referrals: Kelsy Mensah MD [Primary Care Provider] -
[2017-12-05] MEDS: Ondansetron 4 MG/2 ML Vial IV (18:36)
[2017-12-05] MEDS: Morphine 4 MG/ML Syringe IV (18:36)
[2017-12-05 18:38] LABS: Bacteria 0 SEEN /hpf (None Seen); Mucous, Urine 0 SEEN /hpf (<or=2+)
[2017-12-05 18:43] LABS: Color, Urine Yellow (Yellow); Glucose, Dipstick 100 mg/dl (Normal); Ketone-Dipstick Negative (Negative); Leukocyte Esterase-Dipstick 100 /ul (Negative); Nitrite-Dipstick Negative (Negative); Occult Blood-Urine 10 /ul (Negative); Protein-Dipstick 30 mg/dl (Negative); Specific Gravity, Urine 1.015 (1.002-1.030); Urine Bilirubin Dipstick Negative (Negative); Urine Clarity Clear (Clear); Urine Urobilinogen Normal (Normal)
[2017-12-05 18:58] LABS: Anion Gap 10 (5-15); BUN 27 mg/dL (7-18); BUN/Creat Ratio 19.9 RATIO (10-20); Chloride 99 mmol/L (98-107); Creatinine, Serum 1.36 mg/dL (0.55-1.02); EST Glomerular Filtration Rate 40 mL/min (>60); Est Glom Filt Rate - Afr Amer 49 mL/min (>60); Estimated Creatinine Clearance 30.39 ml/min; Glucose 245 mg/dL (74-106); Potassium 4.2 mmol/L (3.5-5.1); Sodium Level 132 mmol/L (136-145)
[2017-12-05 19:01] LABS: Red Blood Cells-Urine 0-5 SEEN /hpf (0-5); White Blood Cells 0-5 SEEN /hpf (0-5)
[2017-12-05 19:02] LABS: Squamous Epithelial Cells - UA 0-5 SEEN /hpf (5-10)
[2017-12-05 19:08] LABS: Absolute Neutrophil Count 21.8 X10^3/uL (2.0-7.7); Basophil# 0.02 X10^3/uL; Basophil% 0.1 % (0-1); Eosinophil# 0.01 X10^3/uL; Hemoglobin 14.2 g/dl (12.0-15.0); Lymphocyte % 10.8 % (19-41); Mean Corp Hgb Conc 35.5 g/gl (32-36); Mean Corpuscular Hgb 31.2 pg (27.0-32.0); Mean Corpuscular Volume 87.9 fL (81-99); Mean Platelet Vol. 10.6 fl (6.2-12.0); Monocyte# 2.81 X10^3/uL; Monocyte% 10.1 % (0-10); Neutrophil # 21.75 X10^3/uL (2.7-7.7); Neutrophil % 78.5 % (47-70); Platelet Count 239 K/mm3 (150-450); RBC Distribution Width CV 13.3 % (11.6-14.6); RBC Distribution Width SD 42.5 fl (35.1-43.9); Red Blood Count 4.55 M/mm3 (4.2-5.4); White Blood Count 27.7 K/mm3 (4.4-11.0)
[2017-12-05 19:41] LABS: Differential Indicated SCAN CRITERIA MET; POSITIVE COUNT NO; POSITIVE DIFFERENTIAL YES; POSITIVE MORPHOLOGY YES
--- NOTE | 2017-12-05 21:54 | HP.PCM_ITS ---
Problem List (1) Infectious colitis Status: Acute (2) CKD (chronic kidney disease), stage III Status: Chronic (3) Hypertension Status: Chronic History of Present Illness Date of Admission: 12/05/17 Chief Complaint: Abdominal pain, nausea and vomiting ?1 day. The patient is a 76 year old F with a significant history of hypertension, diabetes, osteomyelitis with amputation of the distal parts of right second finger; CAD status post quadruple CABG;previous diverticulitis, appendectomy, hysterectomy, cholecystectomy, who presents with Abdominal pain, nausea, vomiting, anorexia ?1 day. Abdominal pain is predominantly located at her entire lower abdomen with some mild radiation upwards. She rates her pain as 7- 8 on a scale of 1-10. She denies any diarrhea. Patient reports that she is unable to keep anything down except yogurt. She reports a low-grade temperature of 100.3. Past Medical History Past Medical History (Chronic Problems): Chronic Problems (Last Reviewed 12/06/17 @ 03:31 by Wilder Lee MD) CKD (chronic kidney disease), stage III (Chronic) CAD (coronary artery disease) (Chronic) Osteoarthritis (Chronic) CKD (chronic kidney disease) (Chronic) History of MRSA infection (Chronic) Osteomyelitis of left foot (Chronic) Hypertension (Chronic) Peripheral arterial disease (Chronic) Type 2 diabetes mellitus (Chronic) Rheumatoid arthritis (Chronic) Medical History: Medical History (Last Reviewed 12/06/17 @ 03:31 by Wilder Lee MD) Arthritis M19.90 Breast lump in female N63.0 Cataracts, bilateral H26.9 Diabetes E11.9 Gallstones K80.20 Heart failure I50.9 Osteoarthritis M19.90 High blood pressure I10 Allergies adhesive Allergy (Verified 12/05/17 18:04) Unknown red skin, uses paper tape and is okay with this atorvastatin calcium [From Lipitor] Allergy (Verified 12/05/17 18:04) Unknown joint pain bacitracin [From Neosporin ([id number])] Allergy (Verified 12/05/17 18:04) Unknown rash bacitracin zinc [From Neosporin ([id number])] Allergy (Verified 12/05/17 18: 04) Unknown rash fenofibrate nanocrystallized [From Tricor] Allergy (Verified 12/05/17 18:04) Unknown upset gi or muscle pain fenofibrate,micronized [From Tricor] Allergy (Verified 12/05/17 18:04) Unknown flurbiprofen Allergy (Verified 12/05/17 18:04) Unknown upset stomach gemfibrozil Allergy (Verified 12/05/17 18:04) Unknown upset stomach glipizide [From Glucotrol] Allergy (Verified 12/05/17 18:04) Unknown dizzy, upset gi metronidazole Allergy (Verified 12/05/17 18:04) ALLERGY neomycin sulfate [From Neosporin ([id number])] Allergy (Verified 12/05/17 18: 04) Unknown rash polymyxin B [From Neosporin ([id number])] Allergy (Verified 12/05/17 18:04) Unknown rash prednisolone acetate, micronized Allergy (Verified 12/05/17 18:04) ALLERGY simvastatin Allergy (Verified 12/05/17 18:04) ALLERGY tramadol [From Ultram] Allergy (Verified 12/05/17 18:04) ALLERGY pravastatin Adverse Reaction (Verified 12/05/17 18:04) Other MUSCLE PAIN Home Medications: Ambulatory Orders Medication Instructions Recorded Insulin Glargine [Lantus SoloStar 10 - 12 units SC QHS 08/26/15 Pen] Metformin HCl [Glucophage] 500 mg PO TIDCM 08/26/15 glyBURIDE [Micronase] 5 mg PO DAILY@0800 08/26/15 Ascorbic Acid [Vitamin C] 500 mg PO DAILY 12/09/16 Atenolol [Tenormin (beta charlie)] 50 mg PO BID 12/09/16 Cholecalciferol (Vitamin D3) 1,000 unit PO DAILY 12/09/16 [Vitamin D3] Cyanocobalamin (Vitamin B-12) 1,000 mcg PO DAILY 12/09/16 [Vitamin B-12] Multivitamin [Multiple Vitamins] 1 ea PO DAILY 12/09/16 [place]-3 Fatty Acids/Fish Oil 1 cap PO BID 12/09/16 [[place] 3 Fish Oil Softgel] Furosemide [Lasix] 20 mg PO QODAY 12/25/16 Acetaminophen [Tylenol] 1,000 mg PO Q8H PRN PRN 06/10/17 Aspirin 81 mg PO DAILY 06/11/17 Amlodipine [Norvasc] 10 mg PO DAILY #30 tab 06/13/17 Lisinopril 20 mg PO DAILY 12/05/17 Surgical History: Surgical History (Last Reviewed 12/06/17 @ 03:31 by Wilder Lee MD) History of cholecystectomy Z90.49 History of heart bypass surgery Z95.1 History of knee replacement Z96.659 Surgical History: appendectomy, cataract, cholecystectomy, coronary bypass surgery, hysterectomy - with BSO., total knee arthroplasty - Right, tonsillectomy, - - Foot bunion surgery bilaterally, hammertoe surgery, left carotid endarterectomy, peripheral vascular disease surgery both legs with stent on the right. Left great toe amputation. Right third toe amputation. 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 Lives: Spouse/ Significant Other Smoking Status: Never smoker - *Family History Maternal Family History: Family History (Last Updated 06/18/17 @ 11:08 by Rhoda Resendez) Mother Diabetes Father Hypertension CVA (cerebral vascular accident) Brother Lung cancer Sister Breast cancer COPD (chronic obstructive pulmonary disease) History Items: No pertinent history Paternal Family History: Family History (Last Updated 06/18/17 @ 11:08 by Rhoda Resendez) Mother Diabetes Father Hypertension CVA (cerebral vascular accident) Brother Lung cancer Sister Breast cancer COPD (chronic obstructive pulmonary disease) History Items: No pertinent history Sibling Family History: Family History (Last Updated 06/18/17 @ 11:08 by Rhoda Resendez) Mother Diabetes Father Hypertension CVA (cerebral vascular accident) Brother Lung cancer Sister Breast cancer COPD (chronic obstructive pulmonary disease) History Items: No pertinent history Review of Systems Constitutional: Reports: Fever HEENT: Denies: Head Aches, Sinus Congestion, Sinus Drainage Cardiovascular: Denies: Chest Pain, Palpitations Gastrointestinal: Reports: Abdominal Pain, Nausea, Vomiting Genitourinary: Denies: Dysuria Musculoskeletal: Denies: Joint Pain, Joint Tenderness Skin: Denies: Rash, Wounds Neurological: Denies: Numbness, Tingling, Focal weakness Psychiatric: Denies: Anxiety, Depression, Homicidal Ideations, Suicidal Ideations Hematologic/ Lymphatic: Reports: Adenopathy VTE Information - Inpt Only VTE Present on Admission: No VTE Mechan Device Prophylaxis: None VTE Pharm Prophylaxis ordered?: Yes Patient Problems: Active and Suspected Problems (Last Reviewed 12/06/17 @ 03:31 by Wilder Lee MD) Infectious colitis (Acute) - Physical Exam General: Alert, Oriented x3, Cooperative HEENT: Atraumatic, PERRLA, EOMI, Normocephalic Neck: Supple, No JVD, Negative Carotid Bruits Lungs: Clear to auscultation, Normal air movement Cardiovascular: Regular rate, No murmurs Abdomen: Bowel Sounds Present, Soft, Tender - Tender lower abdomen., Hernia - Umbilical Extremities: No edema, Capillary Refill Less than 3 Seconds Skin: No rashes, No breakdown Musculoskeletal: No Tenderness to Palpation of Joints or Extremities Neurological: Cranial nerves II-XII grossly intact Psych/Mental Status: Normal Affect, Appropriate Vital Signs Temp Pulse Resp BP Pulse Ox 98.7 F 62 18 152/75 H 96 12/05/17 18:02 12/05/17 18:02 12/05/17 18:02 12/05/17 18:02 12/05/17 18:02 Oxygen Delivery Method Room Air Weight: 76.793 kg Body Mass Index (BMI) 29.0 Finger Stick Blood Glucose 235 Laboratory Tests Past 24 Hrs 12/05/17 12/05/17 12/05/17 18:30 18:30 18:35 WBC 27.7 H RBC 4.55 Hgb 14.2 Hct 40.0 MCV 87.9 MCH 31.2 MCHC 35.5 RDW 13.3 RDW Differential 42.5 Plt Count 239 MPV 10.6 Immature Gran % (Auto) 0.500 Neut % (Auto) 78.5 H Lymph % (Auto) 10.8 L [place] % (Auto) 10.1 H Eos % (Auto) 0.0 Baso % (Auto) 0.1 Absolute Neuts (auto) 21.8 H Absolute Lymphs (auto) 3.00 Total Counted Not Reportable Differential Comment Diff Path Review May foll Sodium 132 L Potassium 4.2 Chloride 99 Carbon Dioxide 23.0 Anion Gap 10 BUN 27 H Creatinine 1.36 H Estim Creat Clear Calc 30.39 Est GFR (MDRD) Af Amer 49 L Est GFR (MDRD) Non-Af 40 L BUN/Creatinine Ratio 19.9 Glucose 245 H Calcium 9.0 Urine Color Yellow Urine Clarity Clear Urine pH 5.0 Ur Specific [place] 1.015 Urine Protein 30 H Urine Glucose (UA) 100 H Urine Ketones Negative Urine Occult Blood 10 H Urine Nitrite Negative Urine Bilirubin Negative Urine Urobilinogen Normal Ur Leukocyte Esterase 100 H Urine RBC 0-5 SEEN Urine WBC 0-5 SEEN Ur Squamous Epith Cells 0-5 SEEN Urine Bacteria 0 SEEN Urine Mucus 0 SEEN Assessment/Plan All Active Problems (Last Reviewed 12/06/17 @ 03:31 by Wilder Lee MD) Infectious colitis (Acute) Acute osteomyelitis of right hand including fingers (Acute) Diabetes with skin ulcer (Acute) Cellulitis of right index finger (Acute) The patient is a 76 year old F with a significant history of hypertension, diabetes, osteomyelitis with amputation of the distal parts of right second finger; CAD status post quadruple CABG;previous diverticulitis, appendectomy, hysterectomy, cholecystectomy, who presents with Abdominal pain, nausea; vomiting; anorexia, fever and found to have leukocytosis. Probable infectious colitis. Abdominal and pelvic CT does not show diverticulitis. However it shows a colonic diverticulosis. With abdominal symptoms elevated white count is likely the patient is having infectious colitis. The patient is allergic to metronidazole. Invanz started. We will trend white count and BMP. Supportive treatment with IV fluids, antiemetics, and IV narcotics. We will start patient on clear liquids. Please advance as tolerated. Hypertension Blood pressure was within goal at the time of admission. Lisinopril and amlodipine continued Labetalol as needed. Diabetes mellitus Blood glucose not within goal at a time of admission On home metformin; held for risk of lactic acidosis Glyburide; held due to unpredictability in acute setting; especially as patient is on clear liquids Long acting insulin continued Placed on correction scale. DVT prophylaxis with subcutaneous heparin. Code Visit Inpatient E&M: 11690 Init Hosp L3
[2017-12-05 21:57] VITALS: BP 172/61; PULSE 60; RESP 14; O2SAT 90
[2017-12-05 23:25] VITALS: BMI 28.9
[2017-12-05 23:31] VITALS: BP 169/39; PULSE 62; RESP 18; TEMP 37; O2SAT 93
[2017-12-05 23:35] VITALS: O2SAT 88
[2017-12-05 23:38] VITALS: BMI 28.9
[2017-12-05 23:56] LABS: Bedside Glucose 199 mg/dL (70-110)
[2017-12-06] VITALS (10 sets, daily range): BP systolic 142–166; BP diastolic 37–61; PULSE 60–63; RESP 16–20; TEMP 36.8–37.2; O2SAT 88–96
[2017-12-06] MEDS: Morphine 2 MG/ML Syringe IV ×2 (00:23→06:43)
[2017-12-06] MEDS: 0.9% Normal Saline 1,000 ML 75 ML IV (01:06)
[2017-12-06] MEDS: Insulin Lispro 100 UNIT/ML INSULN.PEN SQ ×4 (06:29→21:42)
[2017-12-06 06:51] LABS: Bedside Glucose 182 mg/dL (70-110)
[2017-12-06 07:10] LABS: Absolute Lymphocyte Count 1.74 X10^3/ul (0.83-4.51); Absolute Neutrophil Count 18.6 X10^3/uL (2.0-7.7); Basophil# 0.02 X10^3/uL; Basophil% 0.1 % (0-1); Eosinophil# 0.01 X10^3/uL; Hematocrit 36.3 % (37-47); Hemoglobin 12.6 g/dl (12.0-15.0); Lymphocyte # 1.74 X10^3/ul (4.0); Lymphocyte % 7.6 % (19-41); Mean Corp Hgb Conc 34.7 g/gl (32-36); Mean Corpuscular Hgb 31.3 pg (27.0-32.0); Mean Corpuscular Volume 90.1 fL (81-99); Mean Platelet Vol. 10.9 fl (6.2-12.0); Monocyte# 2.29 X10^3/uL; Monocyte% 10.1 % (0-10); Neutrophil # 18.62 X10^3/uL (2.7-7.7); Neutrophil % 81.8 % (47-70); Platelet Count 173 K/mm3 (150-450); RBC Distribution Width CV 13.4 % (11.6-14.6); Red Blood Count 4.03 M/mm3 (4.2-5.4); White Blood Count 22.8 K/mm3 (4.4-11.0)
[2017-12-06 07:12] LABS: Differential Indicated SCAN CRITERIA MET; POSITIVE COUNT NO; POSITIVE DIFFERENTIAL YES; POSITIVE MORPHOLOGY NO
[2017-12-06 07:29] LABS: Anion Gap 8 (5-15); BUN 23 mg/dL (7-18); Calcium,Total 7.9 mg/dL (8.5-10.1); Chloride 101 mmol/L (98-107); Creatinine, Serum 1.15 mg/dL (0.55-1.02); EST Glomerular Filtration Rate 49 mL/min (>60); Est Glom Filt Rate - Afr Amer 59 mL/min (>60); Estimated Creatinine Clearance 35.94 ml/min; Glucose 180 mg/dL (74-106); Potassium 4.1 mmol/L (3.5-5.1); Sodium Level 133 mmol/L (136-145)
[2017-12-06 08:33] LABS: Differential Comment SCANNED
[2017-12-06] MEDS: Lisinopril 20 MG Tablet PO (08:41)
[2017-12-06] MEDS: Aspirin 81 MG TAB.CHEW PO (08:41)
[2017-12-06] MEDS: amLODIPine 10 MG Tablet PO (08:41)
[2017-12-06] MEDS: Heparin Injection (Vial) 5,000 UNIT/ML VIAL 5000 UNIT SC ×2 (08:41→21:41)
[2017-12-06] MEDS: Atenolol 50 MG Tablet PO ×2 (08:41→21:43)
[2017-12-06 11:35] LABS: Bedside Glucose 265 mg/dL (70-110)
[2017-12-06] MEDS: Ondansetron 4 MG/2 ML Vial IV (13:56)
[2017-12-06] MEDS: 0.9% NaCl Peripheral Flush Adult/Peds IV (13:57)
[2017-12-06 14:21] LABS: Lactic Acid 1.8 mmol/L (0.4-2.0)
--- NOTE | 2017-12-06 15:40 | PCM.PN.HOSP ---
Patient Problems: Active and Suspected Problems (Last Reviewed 12/06/17 @ 03:31 by Wilder Lee MD) Infectious colitis (Acute) Subjective: f/u for severe non specific abdominal symptoms patient seen an examined Still having abdominal pain Vitals/I&O's: Vital Signs Temp Pulse Resp BP Pulse Ox 98.4 F 60 18 147/46 H 93 12/06/17 14:25 12/06/17 15:20 12/06/17 14:25 12/06/17 14:25 12/06/17 15:38 Oxygen Flow Rate (L/min) 1 Oxygen Delivery Method Room Air Weight: 76.385 kg Body Mass Index (BMI) 28.9 Intake and Output for Last 24 Hours 12/04/17 12/05/17 12/06/17 23:59 23:59 23:59 Intake Total 982 / 982 Output Total 200 / 200 Balance 782 / 782 General: Alert, Oriented x3, Cooperative, Lethargic, - - mildly ill looking and in some distress Neck: Supple Lungs: - - non labored Abdomen: Bowel Sounds Present, Soft, Obese, - - mild vague tenderness Skin: No rashes Neurological: Cranial nerves II-XII grossly intact, Neuro grossly intact Psych/Mental Status: Normal Affect Laboratory Results 12/05/17 23:47: POC Glucose 199 H 12/06/17 06:15: WBC 22.8 H, RBC 4.03 L, Hgb 12.6, Hct 36.3 L, MCV 90.1, MCH 31.3, MCHC 34.7, RDW 13.4, RDW Differential 44.0 H, Plt Count 173, MPV 10.9, Immature Gran % (Auto) 0.400, Neut % (Auto) 81.8 H, Lymph % (Auto) 7.6 L, [place] % (Auto) 10.1 H, Eos % (Auto) 0.0, Baso % (Auto) 0.1, Absolute Neuts (auto) 18.6 H, Absolute Lymphs (auto) 1.74, Total Counted Not Reportable, Differential Comment SCANNED 12/06/17 06:15: Sodium 133 L, Potassium 4.1, Chloride 101, Carbon Dioxide 24.0, Anion Gap 8, BUN 23 H, Creatinine 1.15 H, Estim Creat Clear Calc 35.94, Est GFR (MDRD) Af Amer 59 L, Est GFR (MDRD) Non-Af 49 L, BUN/Creatinine Ratio 20.0, Glucose 180 H, Calcium 7.9 L 12/06/17 06:26: POC Glucose 182 H 12/06/17 11:26: POC Glucose 265 H 12/06/17 12:45: Lactic Acid 1.8 Current Medications Acetaminophen (Tylenol) 1,000 mg PO Q8H PRN PRN PRN Reason: PAIN Amlodipine Besylate (Norvasc) 10 mg PO DAILY [facility] Last Admin: 12/06/17 08:41 Dose: 10 mg Aspirin (Aspirin, Baby) 81 mg PO DAILYCM [facility] Last Admin: 12/06/17 08:41 Dose: 81 mg Atenolol (Tenormin (Beta Joselito)) 50 mg PO BID [facility] Last Admin: 12/06/17 08:41 Dose: 50 mg Dextrose (D50w Syringe) 0 gm IV X1 PRN; Protocol PRN Reason: Hypoglycemia Glucagon () 1 mg IM .X1 PRN PRN Reason: Hypoglycemia Heparin Sodium (Porcine) (Heparin Na) 5,000 unit SC Q12 [facility] Last Admin: 12/06/17 08:41 Dose: 5,000 unit Sodium Chloride () 250 mls @ 15 mls/hr IV .[id number] PRN PRN Reason: SALINE FLUSH Cefotetan Disodium 2 gm/ (Dextrose) 100 mls @ 200 mls/hr IV Q12 [facility] Last Admin: 12/06/17 10:09 Dose: 200 mls/hr Insulin Glargine (Lantus (Bkc)) 10 units SC QHS [facility] Last Admin: 12/06/17 01:05 Dose: 10 u Insulin Human Lispro (Humalog Kwikpen (Bkc)) 0 unit SQ ACHS [facility] PRN Reason: Protocol Last Admin: 12/06/17 11:28 Dose: 6 u Labetalol HCl (Trandate) 10 mg IV Q4H PRN PRN PRN Reason: SBP > 160 Last Admin: 12/06/17 04:15 Dose: 10 mg Lisinopril (Zestril) 20 mg PO DAILY [facility] Last Admin: 12/06/17 08:41 Dose: 20 mg Magnesium Hydroxide (Milk Of Magnesia) 30 ml PO DAILY PRN PRN PRN Reason: Constipation Metformin HCl (Glucophage) 500 mg PO BIDCM [facility] Morphine Sulfate () 1 - 2 mg IV Q4H PRN PRN PRN Reason: PAIN Last Admin: 12/06/17 06:43 Dose: 2 mg Nutritional Formula (Lactose Free) (Ensure Enlive) 120 ml PO 4X/DAY [facility] Last Admin: 12/06/17 14:41 Dose: Not Given Ondansetron HCl (Zofran) 4 mg IV Q6H PRN PRN PRN Reason: NAUSEA Last Admin: 12/06/17 13:56 Dose: 4 mg Sodium Chloride () 5 - 30 ml IV UD PRN PRN Reason: SALINE FLUSH Last Admin: 12/06/17 13:57 Dose: 10 ml Zolpidem Tartrate (Ambien (Generic)) 5 mg PO QHS PRN PRN PRN Reason: INSOMNIA Medical Necessity - Tobacco Use Smoking Status: Never smoker Assessment/Plan All Active Problems (Last Reviewed 12/06/17 @ 03:31 by Wilder Lee MD) Infectious colitis (Acute) Acute osteomyelitis of right hand including fingers (Acute) Diabetes with skin ulcer (Acute) Cellulitis of right index finger (Acute) 1. Abdominal pain with nausea. uncertain of cause of symptoms. CT abdomen and pelvis personally viewed. marked calcific atherosclerotic disease of the mesenteric branches of the abdominal aorta noted. Raises suspicion of acute or acute on chronic mesenteric ischemia. Will just keep on Clear liquids and check lactic acid levels 2. HTN. Fair control at this time. Will continue antihypertensives 3. DM2. Will resume metformin but hold glyburide. Code Visit Inpatient E&M: 07737 Subs Hosp L3
--- NOTE | 2017-12-06 15:47 | PN_ITS ---
Patient Problems: Active and Suspected Problems (Last Reviewed 12/06/17 @ 03:31 by Wilder Lee MD) Infectious colitis (Acute) Subjective: f/u for severe non specific abdominal symptoms patient seen an examined Still having abdominal pain Vitals/I&O's: Vital Signs Temp Pulse Resp BP Pulse Ox 98.4 F 60 18 147/46 H 93 12/06/17 14:25 12/06/17 15:20 12/06/17 14:25 12/06/17 14:25 12/06/17 15:38 Oxygen Flow Rate (L/min) 1 Oxygen Delivery Method Room Air Weight: 76.385 kg Body Mass Index (BMI) 28.9 Intake and Output for Last 24 Hours 12/04/17 12/05/17 12/06/17 23:59 23:59 23:59 Intake Total 982 / 982 Output Total 200 / 200 Balance 782 / 782 General: Alert, Oriented x3, Cooperative, Lethargic, - - mildly ill looking and in some distress Neck: Supple Lungs: - - non labored Abdomen: Bowel Sounds Present, Soft, Obese, - - mild vague tenderness Skin: No rashes Neurological: Cranial nerves II-XII grossly intact, Neuro grossly intact Psych/Mental Status: Normal Affect Laboratory Results 12/05/17 23:47: POC Glucose 199 H 12/06/17 06:15: WBC 22.8 H, RBC 4.03 L, Hgb 12.6, Hct 36.3 L, MCV 90.1, MCH 31.3 , MCHC 34.7, RDW 13.4, RDW Differential 44.0 H, Plt Count 173, MPV 10.9, Immature Gran % (Auto) 0.400, Neut % (Auto) 81.8 H, Lymph % (Auto) 7.6 L, [place] % (Auto) 10.1 H, Eos % (Auto) 0.0, Baso % (Auto) 0.1, Absolute Neuts (auto) 18.6 H, Absolute Lymphs (auto) 1.74, Total Counted Not Reportable, Differential Comment SCANNED 12/06/17 06:15: Sodium 133 L, Potassium 4.1, Chloride 101, Carbon Dioxide 24.0, Anion Gap 8, BUN 23 H, Creatinine 1.15 H, Estim Creat Clear Calc 35.94, Est GFR (MDRD) Af Amer 59 L, Est GFR (MDRD) Non-Af 49 L, BUN/Creatinine Ratio 20.0, Glucose 180 H, Calcium 7.9 L 12/06/17 06:26: POC Glucose 182 H 12/06/17 11:26: POC Glucose 265 H 12/06/17 12:45: Lactic Acid 1.8 Current Medications Acetaminophen (Tylenol) 1,000 mg PO Q8H PRN PRN PRN Reason: PAIN Amlodipine Besylate (Norvasc) 10 mg PO DAILY [facility] Last Admin: 12/06/17 08:41 Dose: 10 mg Aspirin (Aspirin, Baby) 81 mg PO DAILYCM [facility] Last Admin: 12/06/17 08:41 Dose: 81 mg Atenolol (Tenormin (Beta Joselito)) 50 mg PO BID [facility] Last Admin: 12/06/17 08:41 Dose: 50 mg Dextrose (D50w Syringe) 0 gm IV X1 PRN; Protocol PRN Reason: Hypoglycemia Glucagon () 1 mg IM .X1 PRN PRN Reason: Hypoglycemia Heparin Sodium (Porcine) (Heparin Na) 5,000 unit SC Q12 [facility] Last Admin: 12/06/17 08:41 Dose: 5,000 unit Sodium Chloride () 250 mls @ 15 mls/hr IV .[id number] PRN PRN Reason: SALINE FLUSH Cefotetan Disodium 2 gm/ (Dextrose) 100 mls @ 200 mls/hr IV Q12 [facility] Last Admin: 12/06/17 10:09 Dose: 200 mls/hr Insulin Glargine (Lantus (Bkc)) 10 units SC QHS [facility] Last Admin: 12/06/17 01:05 Dose: 10 u Insulin Human Lispro (Humalog Kwikpen (Bkc)) 0 unit SQ ACHS [facility] PRN Reason: Protocol Last Admin: 12/06/17 11:28 Dose: 6 u Labetalol HCl (Trandate) 10 mg IV Q4H PRN PRN PRN Reason: SBP > 160 Last Admin: 12/06/17 04:15 Dose: 10 mg Lisinopril (Zestril) 20 mg PO DAILY [facility] Last Admin: 12/06/17 08:41 Dose: 20 mg Magnesium Hydroxide (Milk Of Magnesia) 30 ml PO DAILY PRN PRN PRN Reason: Constipation Metformin HCl (Glucophage) 500 mg PO BIDCM [facility] Morphine Sulfate () 1 - 2 mg IV Q4H PRN PRN PRN Reason: PAIN Last Admin: 12/06/17 06:43 Dose: 2 mg Nutritional Formula (Lactose Free) (Ensure Enlive) 120 ml PO 4X/DAY [facility] Last Admin: 12/06/17 14:41 Dose: Not Given Ondansetron HCl (Zofran) 4 mg IV Q6H PRN PRN PRN Reason: NAUSEA Last Admin: 12/06/17 13:56 Dose: 4 mg Sodium Chloride () 5 - 30 ml IV UD PRN PRN Reason: SALINE FLUSH Last Admin: 12/06/17 13:57 Dose: 10 ml Zolpidem Tartrate (Ambien (Generic)) 5 mg PO QHS PRN PRN PRN Reason: INSOMNIA Medical Necessity - Tobacco Use Smoking Status: Never smoker Assessment/Plan All Active Problems (Last Reviewed 12/06/17 @ 03:31 by Wilder Lee MD) Infectious colitis (Acute) Acute osteomyelitis of right hand including fingers (Acute) Diabetes with skin ulcer (Acute) Cellulitis of right index finger (Acute) 1. Abdominal pain with nausea. uncertain of cause of symptoms. CT abdomen and pelvis personally viewed. marked calcific atherosclerotic disease of the mesenteric branches of the abdominal aorta noted. Raises suspicion of acute or acute on chronic mesenteric ischemia. Will just keep on Clear liquids and check lactic acid levels 2. HTN. Fair control at this time. Will continue antihypertensives 3. DM2. Will resume metformin but hold glyburide. Code Visit Inpatient E&M: 12265 Subs Hosp L3
--- NOTE | 2017-12-06 16:35 | CASEMGMT ---
SEE RN CHAYO ASSESS LINK: D/C PLAN: HOME Intro role to FLOR DOMINGO. Pt resting in bed, awake/alert, and willing to participate in assessment. Pt states she is independent @ home with all ADL's. Pt reports she uses a cane when ambulating long distances only. Pt denies having any questions or needs at this time. Confirmed PCP and pharmacy. Pt states wishes to return home and denies any need for HHC. CM to continue to follow for any discharge planning needs that may arise. Bettina BSN FLOR CM
[2017-12-06 17:21] LABS: Bedside Glucose 212 mg/dL (70-110)
[2017-12-06 21:51] LABS: Bedside Glucose 207 mg/dL (70-110)
[2017-12-07] MEDS: Morphine 2 MG/ML Syringe IV (01:28)
[2017-12-07] MEDS: 0.9% NaCl Peripheral Flush Adult/Peds IV ×5 (01:28→21:16)
[2017-12-07 01:55] VITALS: BP 154/51; PULSE 60; RESP 16; TEMP 36.9; O2SAT 94
[2017-12-07 06:23] LABS: Absolute Lymphocyte Count 1.78 X10^3/ul (0.83-4.51); Absolute Neutrophil Count 17.9 X10^3/uL (2.0-7.7); Basophil# 0.02 X10^3/uL; Basophil% 0.1 % (0-1); Eosinophil# 0.03 X10^3/uL; Eosinophils% 0.1 % (0-5); Hematocrit 35.9 % (37-47); Hemoglobin 12.4 g/dl (12.0-15.0); Lymphocyte # 1.78 X10^3/ul (4.0); Mean Corp Hgb Conc 34.5 g/gl (32-36); Mean Corpuscular Hgb 30.6 pg (27.0-32.0); Mean Corpuscular Volume 88.6 fL (81-99); Mean Platelet Vol. 10.8 fl (6.2-12.0); Monocyte# 2.37 X10^3/uL; Monocyte% 10.6 % (0-10); Neutrophil # 17.91 X10^3/uL (2.7-7.7); Neutrophil % 80.5 % (47-70); Platelet Count 188 K/mm3 (150-450); RBC Distribution Width SD 41.8 fl (35.1-43.9); Red Blood Count 4.05 M/mm3 (4.2-5.4); White Blood Count 22.3 K/mm3 (4.4-11.0)
[2017-12-07 06:29] LABS: Differential Indicated SCAN CRITERIA MET; POSITIVE COUNT NO; POSITIVE DIFFERENTIAL YES; POSITIVE MORPHOLOGY NO
[2017-12-07] MEDS: Insulin Lispro 100 UNIT/ML INSULN.PEN SQ ×3 (06:29→21:22)
[2017-12-07 06:35] LABS: Bedside Glucose 153 mg/dL (70-110)
[2017-12-07 07:54] VITALS: O2SAT 94
[2017-12-07] MEDS: Atenolol 50 MG Tablet PO ×2 (08:10→21:18)
[2017-12-07] MEDS: Lisinopril 20 MG Tablet PO (08:11)
[2017-12-07] MEDS: amLODIPine 10 MG Tablet PO (08:11)
[2017-12-07] MEDS: Heparin Injection (Vial) 5,000 UNIT/ML VIAL 5000 UNIT SC ×2 (08:12→21:17)
[2017-12-07] MEDS: Aspirin 81 MG TAB.CHEW PO (08:12)
[2017-12-07 08:15] VITALS: BP 143/49; PULSE 59; RESP 16; TEMP 36.9; O2SAT 93
[2017-12-07] MEDS: Ondansetron 4 MG/2 ML Vial IV ×2 (12:01→20:07)
[2017-12-07 12:05] LABS: Bedside Glucose 177 mg/dL (70-110)
[2017-12-07 15:10] VITALS: BP 154/48; PULSE 63; RESP 18; TEMP 37.1; O2SAT 93
[2017-12-07] MEDS: Acetaminophen 500 MG Tablet 1000 MG PO (15:14)
--- NOTE | 2017-12-07 15:25 | PCM.PN.HOSP ---
Patient Problems: Active and Suspected Problems (Last Reviewed 12/06/17 @ 03:31 by Wilder Lee MD) Infectious colitis (Acute) Subjective: f/u for unexplained abdominal symptoms Patient seen and examined No real or substantial improvement in symptoms Vitals/I&O's: Vital Signs Temp Pulse Resp BP Pulse Ox 98.8 F 63 18 154/48 H 93 12/07/17 15:10 12/07/17 15:10 12/07/17 15:10 12/07/17 15:10 12/07/17 15:10 Oxygen Flow Rate (L/min) 1 Oxygen Delivery Method Room Air Weight: 76.385 kg Body Mass Index (BMI) 28.9 Intake and Output for Last 24 Hours 12/05/17 12/06/17 12/07/17 23:59 23:59 23:59 Intake Total 982 / 982 805 / 805 Output Total 350 / 350 1325 / 1325 Balance 632 / 632 -520 / -520 General: Alert, Oriented x3, Cooperative, - - mildly ill looking and in mild painful distress HEENT: Atraumatic Oral: Moist Mucosa Neck: Supple Lungs: Clear to auscultation Cardiovascular: Regular rate Abdomen: Obese, Tender Neurological: Cranial nerves II-XII grossly intact, Neuro grossly intact Laboratory Results 12/06/17 17:10: POC Glucose 212 H 12/06/17 21:40: POC Glucose 207 H 12/07/17 05:50: WBC 22.3 H, RBC 4.05 L, Hgb 12.4, Hct 35.9 L, MCV 88.6, MCH 30.6, MCHC 34.5, RDW 13.0, RDW Differential 41.8, Plt Count 188, MPV 10.8, Immature Gran % (Auto) 0.700, Neut % (Auto) 80.5 H, Lymph % (Auto) 8.0 L, Jenkins % (Auto) 10.6 H, Eos % (Auto) 0.1, Baso % (Auto) 0.1, Absolute Neuts (auto) 17.9 H, Absolute Lymphs (auto) 1.78, Total Counted Not Reportable, Diff Path Review July12/07/17 06:27: POC Glucose 153 H 12/07/17 11:53: POC Glucose 177 H Current Medications Acetaminophen (Tylenol) 1,000 mg PO Q8H PRN PRN PRN Reason: PAIN Last Admin: 12/07/17 15:14 Dose: 1,000 mg Amlodipine Besylate (Norvasc) 10 mg PO DAILY [facility] Last Admin: 12/07/17 08:11 Dose: 10 mg Aspirin (Aspirin, Baby) 81 mg PO DAILYCM [facility] Last Admin: 12/07/17 08:12 Dose: 81 mg Atenolol (Tenormin (Beta Joselito)) 50 mg PO BID [facility] Last Admin: 12/07/17 08:10 Dose: 50 mg Dextrose (D50w Syringe) 0 gm IV X1 PRN; Protocol PRN Reason: Hypoglycemia Glucagon () 1 mg IM .X1 PRN PRN Reason: Hypoglycemia Heparin Sodium (Porcine) (Heparin Na) 5,000 unit SC Q12 [facility] Last Admin: 12/07/17 08:12 Dose: 5,000 unit Sodium Chloride () 250 mls @ 15 mls/hr IV .[id number] PRN PRN Reason: SALINE FLUSH Cefotetan Disodium 2 gm/ (Dextrose) 100 mls @ 200 mls/hr IV Q12 [facility] Last Admin: 12/07/17 09:31 Dose: 200 mls/hr Insulin Glargine (Lantus (Bkc)) 10 units SC QHS [facility] Last Admin: 12/06/17 21:42 Dose: 10 u Insulin Human Lispro (Humalog Kwikpen (Bkc)) 0 unit SQ ACHS [facility] PRN Reason: Protocol Last Admin: 12/07/17 11:54 Dose: 2 u Labetalol HCl (Trandate) 10 mg IV Q4H PRN PRN PRN Reason: SBP > 160 Last Admin: 12/06/17 04:15 Dose: 10 mg Lisinopril (Zestril) 20 mg PO DAILY [facility] Last Admin: 12/07/17 08:11 Dose: 20 mg Magnesium Hydroxide (Milk Of Magnesia) 30 ml PO DAILY PRN PRN PRN Reason: Constipation [facility]) [facility] Last Admin: 12/07/17 08:11 Dose: 500 mg Morphine Sulfate () 1 - 2 mg IV Q4H PRN PRN PRN Reason: PAIN Last Admin: 12/07/17 01:28 Dose: 2 mg Nutritional Formula (Lactose Free) (Glucerna Shake) 120 ml PO 4X/DAY [facility] Last Admin: 12/07/17 14:42 Dose: Not Given Ondansetron HCl (Zofran) 4 mg IV Q6H PRN PRN PRN Reason: NAUSEA Last Admin: 12/07/17 12:01 Dose: 4 mg Sodium Chloride () 5 - 30 ml IV UD PRN PRN Reason: SALINE FLUSH Last Admin: 12/07/17 12:01 Dose: 10 ml Zolpidem Tartrate (Ambien (Generic)) 5 mg PO QHS PRN PRN PRN Reason: INSOMNIA Medical Necessity - Tobacco Use Smoking Status: Never smoker Assessment/Plan All Active Problems (Last Reviewed 12/06/17 @ 03:31 by Wilder Lee MD) Infectious colitis (Acute) Acute osteomyelitis of right hand including fingers (Acute) Diabetes with skin ulcer (Acute) Cellulitis of right index finger (Acute) 1. Abdominal pain with nausea. uncertain of cause of symptoms. CT abdomen and pelvis personally viewed. Marked calcific atherosclerotic disease of the mesenteric branches of the abdominal aorta noted. Raises suspicion of acute or acute on chronic mesenteric ischemia. Lactic acid level normal If no improvement in symptoms then go ahead and do CTA of abdomen and pelvis to evaluate patency of mesenteric vessels 2. HTN. Fair control at this time. Will continue antihypertensives 3. DM2. Fair control. Will continue to hold glyburide until oral intake improves. 4. CAD s/p CABG x 4. Stable. Will continue secondary CVD prophylaxis Code Visit Inpatient E&M: 55259 Subs Hosp L2
--- NOTE | 2017-12-07 15:29 | PN_ITS ---
Patient Problems: Active and Suspected Problems (Last Reviewed 12/06/17 @ 03:31 by Wilder Lee MD) Infectious colitis (Acute) Subjective: f/u for unexplained abdominal symptoms Patient seen and examined No real or substantial improvement in symptoms Vitals/I&O's: Vital Signs Temp Pulse Resp BP Pulse Ox 98.8 F 63 18 154/48 H 93 12/07/17 15:10 12/07/17 15:10 12/07/17 15:10 12/07/17 15:10 12/07/17 15:10 Oxygen Flow Rate (L/min) 1 Oxygen Delivery Method Room Air Weight: 76.385 kg Body Mass Index (BMI) 28.9 Intake and Output for Last 24 Hours 12/05/17 12/06/17 12/07/17 23:59 23:59 23:59 Intake Total 982 / 982 805 / 805 Output Total 350 / 350 1325 / 1325 Balance 632 / 632 -520 / -520 General: Alert, Oriented x3, Cooperative, - - mildly ill looking and in mild painful distress HEENT: Atraumatic Oral: Moist Mucosa Neck: Supple Lungs: Clear to auscultation Cardiovascular: Regular rate Abdomen: Obese, Tender Neurological: Cranial nerves II-XII grossly intact, Neuro grossly intact Laboratory Results 12/06/17 17:10: POC Glucose 212 H 12/06/17 21:40: POC Glucose 207 H 12/07/17 05:50: WBC 22.3 H, RBC 4.05 L, Hgb 12.4, Hct 35.9 L, MCV 88.6, MCH 30.6 , MCHC 34.5, RDW 13.0, RDW Differential 41.8, Plt Count 188, MPV 10.8, Immature Gran % (Auto) 0.700, Neut % (Auto) 80.5 H, Lymph % (Auto) 8.0 L, Trimble % (Auto) 10.6 H, Eos % (Auto) 0.1, Baso % (Auto) 0.1, Absolute Neuts (auto) 17.9 H, Absolute Lymphs (auto) 1.78, Total Counted Not Reportable, Diff Path Review July12/07/17 06:27: POC Glucose 153 H 12/07/17 11:53: POC Glucose 177 H Current Medications Acetaminophen (Tylenol) 1,000 mg PO Q8H PRN PRN PRN Reason: PAIN Last Admin: 12/07/17 15:14 Dose: 1,000 mg Amlodipine Besylate (Norvasc) 10 mg PO DAILY [facility] Last Admin: 12/07/17 08:11 Dose: 10 mg Aspirin (Aspirin, Baby) 81 mg PO DAILYCM [facility] Last Admin: 12/07/17 08:12 Dose: 81 mg Atenolol (Tenormin (Beta Joselito)) 50 mg PO BID [facility] Last Admin: 12/07/17 08:10 Dose: 50 mg Dextrose (D50w Syringe) 0 gm IV X1 PRN; Protocol PRN Reason: Hypoglycemia Glucagon () 1 mg IM .X1 PRN PRN Reason: Hypoglycemia Heparin Sodium (Porcine) (Heparin Na) 5,000 unit SC Q12 [facility] Last Admin: 12/07/17 08:12 Dose: 5,000 unit Sodium Chloride () 250 mls @ 15 mls/hr IV .[id number] PRN PRN Reason: SALINE FLUSH Cefotetan Disodium 2 gm/ (Dextrose) 100 mls @ 200 mls/hr IV Q12 [facility] Last Admin: 12/07/17 09:31 Dose: 200 mls/hr Insulin Glargine (Lantus (Bkc)) 10 units SC QHS [facility] Last Admin: 12/06/17 21:42 Dose: 10 u Insulin Human Lispro (Humalog Kwikpen (Bkc)) 0 unit SQ ACHS [facility] PRN Reason: Protocol Last Admin: 12/07/17 11:54 Dose: 2 u Labetalol HCl (Trandate) 10 mg IV Q4H PRN PRN PRN Reason: SBP > 160 Last Admin: 12/06/17 04:15 Dose: 10 mg Lisinopril (Zestril) 20 mg PO DAILY [facility] Last Admin: 12/07/17 08:11 Dose: 20 mg Magnesium Hydroxide (Milk Of Magnesia) 30 ml PO DAILY PRN PRN PRN Reason: Constipation [facility] Last Admin: 12/07/17 08:11 Dose: 500 mg Morphine Sulfate () 1 - 2 mg IV Q4H PRN PRN PRN Reason: PAIN Last Admin: 12/07/17 01:28 Dose: 2 mg Nutritional Formula (Lactose Free) (Glucerna Shake) 120 ml PO 4X/DAY [facility] Last Admin: 12/07/17 14:42 Dose: Not Given Ondansetron HCl (Zofran) 4 mg IV Q6H PRN PRN PRN Reason: NAUSEA Last Admin: 12/07/17 12:01 Dose: 4 mg Sodium Chloride () 5 - 30 ml IV UD PRN PRN Reason: SALINE FLUSH Last Admin: 12/07/17 12:01 Dose: 10 ml Zolpidem Tartrate (Ambien (Generic)) 5 mg PO QHS PRN PRN PRN Reason: INSOMNIA Medical Necessity - Tobacco Use Smoking Status: Never smoker Assessment/Plan All Active Problems (Last Reviewed 12/06/17 @ 03:31 by Wilder Lee MD) Infectious colitis (Acute) Acute osteomyelitis of right hand including fingers (Acute) Diabetes with skin ulcer (Acute) Cellulitis of right index finger (Acute) 1. Abdominal pain with nausea. uncertain of cause of symptoms. CT abdomen and pelvis personally viewed. Marked calcific atherosclerotic disease of the mesenteric branches of the abdominal aorta noted. Raises suspicion of acute or acute on chronic mesenteric ischemia. Lactic acid level normal If no improvement in symptoms then go ahead and do CTA of abdomen and pelvis to evaluate patency of mesenteric vessels 2. HTN. Fair control at this time. Will continue antihypertensives 3. DM2. Fair control. Will continue to hold glyburide until oral intake improves. 4. CAD s/p CABG x 4. Stable. Will continue secondary CVD prophylaxis Code Visit Inpatient E&M: 60391 Subs Hosp L2
[2017-12-07 16:36] LABS: Bedside Glucose 149 mg/dL (70-110)
[2017-12-07 20:18] VITALS: BP 149/64; PULSE 65; RESP 16; TEMP 37.1; O2SAT 93
[2017-12-07] MEDS: Zolpidem Tartrate 5 MG Tablet PO (21:16)
[2017-12-07] MEDS: Glucerna Shake 120 ML LIQUID PO (21:16)
[2017-12-07 21:36] LABS: Bedside Glucose 168 mg/dL (70-110)
[2017-12-08 02:05] VITALS: BP 142/48; PULSE 63; RESP 16; TEMP 36.8; O2SAT 93
[2017-12-08] MEDS: Acetaminophen 500 MG Tablet 1000 MG PO ×2 (02:09→12:11)
[2017-12-08 06:26] LABS: Bedside Glucose 141 mg/dL (70-110)
--- NOTE | 2017-12-08 08:11 | CT_ITS ---
STUDY: CTA OF THE ABDOMINAL AORTA. REASON FOR EXAM: Female, 76 years old. Abdominal pain. Examination was obtained to rule out mesenteric ischemic colitis. RADIATION DOSAGE (If Supplied By Facility): CTDIvol = ( 27.20 ) mGy, DLP = ( 947.55 ) mGycm TECHNIQUE: Axial CT angiography multi-detector data acquisition was obtained from the dome of the liver to the symphysis pubis following intravenous administration of 100 ml of Isovue 370 contrast. Axial images and MIP images were reconstructed from the axial data set. Post-processing of the angiographic images was performed, with multiplanar reformation and 3D reconstruction. Individualized dose optimization techniques were used for this CT. TECHNICAL QUALITY: Good COMPARISON: None. Descriptors of Narrowing: None (0%) Mild (< 50%) Moderate (50-70%) Severe (70-90%) Subtotal/Total Occlusion (90-100%) Non-Evaluable (technically non-diagnostic FINDINGS: There is small left pleural effusion with bibasilar atelectasis and/or infiltrates. Coronary artery calcification. There is evidence of peripancreatic fluid and increased markings in the surrounding fat. Fluid is seen in the deep mesenteric root. This also evidence of a left perinephric stranding and small amount of left perinephric fluid collection. Findings are suggestive of acute pancreatitis. Stable atrophy of the left kidney with a left renal cyst. Enlargement of the left adrenal gland. Abdominal aorta: Atherosclerotic calcification of the abdominal aorta. There is no evidence of aneurysm formation. Celiac and superior mesenteric arteries: Calcific plaque at the origin of the celiac artery with tight stenosis just distal to its origin. Tight stenosis of the superior mesenteric artery origin. Calcification of the splenic artery. Inferior mesenteric artery: Nonvisualized. Right renal artery(arteries): Atherosclerotic plaque at the origin of the right renal artery. Left renal artery(arteries): Atherosclerotic plaque at the origin of the left renal artery. CT/CT ANGIO ABD&PEL W/O&W/DYE IMPRESSION: Small left pleural effusion with bibasilar infiltrates and/or atelectasis worse on the left side. Findings suggestive of acute pancreatitis. Enlargement of the left adrenal gland. Atrophy of left kidney. Atherosclerotic changes of the abdominal aorta and the major visceral branches without evidence of mesenteric ischemia at this time. Electronically Signed: Cuco Manuel MD at 9:32 EDT Tel [phone], Service support ,
[2017-12-08] MEDS: amLODIPine 10 MG Tablet PO (09:18)
[2017-12-08] MEDS: Atenolol 50 MG Tablet PO ×2 (09:18→21:38)
[2017-12-08] MEDS: Aspirin 81 MG TAB.CHEW PO (09:18)
[2017-12-08] MEDS: Lisinopril 20 MG Tablet PO (09:18)
[2017-12-08 09:19] VITALS: BP 141/75; PULSE 61; RESP 18; TEMP 37.2; O2SAT 93
[2017-12-08] MEDS: 0.9% NaCl Peripheral Flush Adult/Peds IV ×2 (10:45→19:52)
[2017-12-08] MEDS: Glucerna Shake 120 ML LIQUID PO (10:47)
[2017-12-08] MEDS: Heparin Injection (Vial) 5,000 UNIT/ML VIAL 5000 UNIT SC (10:49)
[2017-12-08] MEDS: Ondansetron 4 MG/2 ML Vial IV ×2 (12:05→19:52)
[2017-12-08] MEDS: Insulin Lispro 100 UNIT/ML INSULN.PEN SQ ×3 (12:06→21:40)
[2017-12-08 12:31] LABS: Bedside Glucose 199 mg/dL (70-110)
[2017-12-08 12:50] VITALS: O2SAT 92
[2017-12-08 14:43] LABS: Pathologist Review Reviewed
[2017-12-08 14:45] LABS: Pathologist Review Reviewed
--- NOTE | 2017-12-08 15:46 | CHAPLAIN ---
Type of Pastoral Visit _x__ Initial Visit ___ Follow-up Visit ___ On-call Visit ___ General Patient Visit ___ Spiritual Assessment ___ Family Conference ___ Bereavement ___ Rapid Response ___ Code Blue ___ Other (describe below) Pastoral Care Referral From _x__ Patient ___ Family ___ Nurse ___ Physician ___ Control Cabinet Assembler ___ Freezing Machine Operator ___ Other (describe below) Sacrament/Intervention _x__ Active listening ___ Anointing ___ Protestant ___ Bereavement ___ Communion ___ Trish exploration ___ ___ Life review _x__ Prayer ___ Reconciliation ___ Sacrament of Sick ___ Supportive presence ___ Wedding ___ Other (describe below) Pastoral Comments
--- NOTE | 2017-12-08 16:20 | PCM.PN.HOSP ---
Patient Problems: Active and Suspected Problems (Last Reviewed 12/06/17 @ 03:31 by Wilder Lee MD) Infectious colitis (Acute) Subjective: f/u for abdominal pain D/w Dr. Bro for radiology regarding CT findings Patient seen and examined Still feels poorly and abdomen still hurting and still having significant nausea Daughter in the room, met with her and updated Vitals/I&O's: Vital Signs Temp Pulse Resp BP Pulse Ox 99.0 F 61 18 141/75 H 93 12/08/17 09:19 12/08/17 09:19 12/08/17 09:19 12/08/17 09:19 12/08/17 09:19 Oxygen Flow Rate (L/min) 1 Oxygen Delivery Method Room Air Weight: 76.385 kg Body Mass Index (BMI) 28.9 Intake and Output for Last 24 Hours 12/06/17 12/07/17 12/08/17 23:59 23:59 23:59 Intake Total 982 / 982 1844 / 1844 585 / 585 Output Total 350 / 350 2825 / 2825 1400 / 1400 Balance 632 / 632 -981 / -981 -815 / -815 General: Alert, Oriented x3, Cooperative, - - ill looking and in some dsitress HEENT: Atraumatic Oral: Moist Mucosa Neck: Supple Lungs: Clear to auscultation - but diminihed in the bases Cardiovascular: Regular rate, Regular Rhythm, Normal S1, Normal S2, No murmurs, No Ectopic Activity Abdomen: Tender - tenderness in the epigastrium Skin: No rashes Neurological: Cranial nerves II-XII grossly intact, Neuro grossly intact Psych/Mental Status: Normal Affect, Anxious, Alert and oriented to time, place, person, mood and affect Microbiology Past 72 Hours 12/06/17 01:16 Blood Culture (Wb) - Anticubital Right Blood Culture - Preliminary No growth in 48 hours. Laboratory Results 12/07/17 05:50: Diff Path Review Reviewed 12/07/17 16:28: POC Glucose 149 H 12/07/17 21:20: POC Glucose 168 H 12/08/17 06:21: POC Glucose 141 H 12/08/17 12:02: POC Glucose 199 H 12/08/17 15:58: Amylase Pending, Lipase Pending Current Medications Amlodipine Besylate (Norvasc) 10 mg PO DAILY [facility] Last Admin: 12/08/17 09:18 Dose: 10 mg Aspirin (Aspirin, Baby) 81 mg PO DAILYCM [facility] Last Admin: 12/08/17 09:18 Dose: 81 mg Atenolol (Tenormin (Beta Joselito)) 50 mg PO BID [facility] Last Admin: 12/08/17 09:18 Dose: 50 mg Dextrose (D50w Syringe) 0 gm IV X1 PRN; Protocol PRN Reason: Hypoglycemia Glucagon () 1 mg IM .X1 PRN PRN Reason: Hypoglycemia Sodium Chloride () 250 mls @ 15 mls/hr IV .[id number] PRN PRN Reason: SALINE FLUSH Lisinopril (Zestril) 20 mg PO DAILY [facility] Last Admin: 12/08/17 09:18 Dose: 20 mg Magnesium Hydroxide (Milk Of Magnesia) 30 ml PO DAILY PRN PRN PRN Reason: Constipation Ondansetron HCl (Zofran) 4 mg IV Q6H PRN PRN PRN Reason: NAUSEA Last Admin: 12/08/17 12:05 Dose: 4 mg Sodium Chloride () 5 - 30 ml IV UD PRN PRN Reason: SALINE FLUSH Last Admin: 12/08/17 10:45 Dose: 10 ml Zolpidem Tartrate (Ambien (Generic)) 5 mg PO QHS PRN PRN PRN Reason: INSOMNIA Last Admin: 12/07/17 21:16 Dose: 5 mg Medical Necessity - Tobacco Use Smoking Status: Never smoker Assessment/Plan All Active Problems (Last Reviewed 12/06/17 @ 03:31 by Wilder Lee MD) Infectious colitis (Acute) Acute osteomyelitis of right hand including fingers (Acute) Diabetes with skin ulcer (Acute) Cellulitis of right index finger (Acute) 1. Abdominal pain with nausea. Still unable to tolerate orally. CTA showed pancreatic inflammation and peripancreatic fluid. Significant stenosis of the celiac and SMA at their origins but adequate reconstitution of flow distally. D/W Dr. Bro, unlikely to be the cause of her symptoms. Most likely just the Acute Pancreatitis. Lipase never checked. Will order now and treat for Acute pancreatitis. Strict NPO, IVF, antiemetics, analgesics. 2. HTN. Fair control at this time. Will continue antihypertensives 3. DM2. Fair control. Pt will be kept NPO and so will start on D5NS for maintenance. Hold metformin, continue Lantus at slightly higher dose and tehn SSI for coverage while NPO 4. Very diffuse and significant atherosclerotic cardiovascular disease with CAD s/p CABG x 4, carotid artery stenosis s/ endarterectomy, PAD and mesenteric disease as well. Stable. Seems not to be on statin due to allergy. May have to be revisited by her PCP/real estate developer 43 minutes spent in face to face encounter, meeting with family to update and answer questions, reviewing labs and CT data and images and meeting face to face with radiologist to discuss CT Code Visit Inpatient E&M: [id number] Subs Hosp L3
--- NOTE | 2017-12-08 16:26 | PN_ITS ---
Patient Problems: Active and Suspected Problems (Last Reviewed 12/06/17 @ 03:31 by Wilder Lee MD) Infectious colitis (Acute) Subjective: f/u for abdominal pain D/w Dr. Bro for radiology regarding CT findings Patient seen and examined Still feels poorly and abdomen still hurting and still having significant nausea Daughter in the room, met with her and updated Vitals/I&O's: Vital Signs Temp Pulse Resp BP Pulse Ox 99.0 F 61 18 141/75 H 93 12/08/17 09:19 12/08/17 09:19 12/08/17 09:19 12/08/17 09:19 12/08/17 09:19 Oxygen Flow Rate (L/min) 1 Oxygen Delivery Method Room Air Weight: 76.385 kg Body Mass Index (BMI) 28.9 Intake and Output for Last 24 Hours 12/06/17 12/07/17 12/08/17 23:59 23:59 23:59 Intake Total 982 / 982 1844 / 1844 585 / 585 Output Total 350 / 350 2825 / 2825 1400 / 1400 Balance 632 / 632 -981 / -981 -815 / -815 General: Alert, Oriented x3, Cooperative, - - ill looking and in some dsitress HEENT: Atraumatic Oral: Moist Mucosa Neck: Supple Lungs: Clear to auscultation - but diminihed in the bases Cardiovascular: Regular rate, Regular Rhythm, Normal S1, Normal S2, No murmurs, No Ectopic Activity Abdomen: Tender - tenderness in the epigastrium Skin: No rashes Neurological: Cranial nerves II-XII grossly intact, Neuro grossly intact Psych/Mental Status: Normal Affect, Anxious, Alert and oriented to time, place, person, mood and affect Microbiology Past 72 Hours 12/06/17 01:16 Blood Culture (Wb) - Anticubital Right Blood Culture - Preliminary No growth in 48 hours. Laboratory Results 12/07/17 05:50: Diff Path Review Reviewed 12/07/17 16:28: POC Glucose 149 H 12/07/17 21:20: POC Glucose 168 H 12/08/17 06:21: POC Glucose 141 H 12/08/17 12:02: POC Glucose 199 H 12/08/17 15:58: Amylase Pending, Lipase Pending Current Medications Amlodipine Besylate (Norvasc) 10 mg PO DAILY [facility] Last Admin: 12/08/17 09:18 Dose: 10 mg Aspirin (Aspirin, Baby) 81 mg PO DAILYCM [facility] Last Admin: 12/08/17 09:18 Dose: 81 mg Atenolol (Tenormin (Beta Joselito)) 50 mg PO BID [facility] Last Admin: 12/08/17 09:18 Dose: 50 mg Dextrose (D50w Syringe) 0 gm IV X1 PRN; Protocol PRN Reason: Hypoglycemia Glucagon () 1 mg IM .X1 PRN PRN Reason: Hypoglycemia Sodium Chloride () 250 mls @ 15 mls/hr IV .[id number] PRN PRN Reason: SALINE FLUSH Lisinopril (Zestril) 20 mg PO DAILY [facility] Last Admin: 12/08/17 09:18 Dose: 20 mg Magnesium Hydroxide (Milk Of Magnesia) 30 ml PO DAILY PRN PRN PRN Reason: Constipation Ondansetron HCl (Zofran) 4 mg IV Q6H PRN PRN PRN Reason: NAUSEA Last Admin: 12/08/17 12:05 Dose: 4 mg Sodium Chloride () 5 - 30 ml IV UD PRN PRN Reason: SALINE FLUSH Last Admin: 12/08/17 10:45 Dose: 10 ml Zolpidem Tartrate (Ambien (Generic)) 5 mg PO QHS PRN PRN PRN Reason: INSOMNIA Last Admin: 12/07/17 21:16 Dose: 5 mg Medical Necessity - Tobacco Use Smoking Status: Never smoker Assessment/Plan All Active Problems (Last Reviewed 12/06/17 @ 03:31 by Wilder Lee MD) Infectious colitis (Acute) Acute osteomyelitis of right hand including fingers (Acute) Diabetes with skin ulcer (Acute) Cellulitis of right index finger (Acute) 1. Abdominal pain with nausea. Still unable to tolerate orally. CTA showed pancreatic inflammation and peripancreatic fluid. Significant stenosis of the celiac and SMA at their origins but adequate reconstitution of flow distally. D/ W Dr. Bro, unlikely to be the cause of her symptoms. Most likely just the Acute Pancreatitis. Lipase never checked. Will order now and treat for Acute pancreatitis. Strict NPO, IVF, antiemetics, analgesics. 2. HTN. Fair control at this time. Will continue antihypertensives 3. DM2. Fair control. Pt will be kept NPO and so will start on D5NS for maintenance. Hold metformin, continue Lantus at slightly higher dose and tehn SSI for coverage while NPO 4. Very diffuse and significant atherosclerotic cardiovascular disease with CAD s/p CABG x 4, carotid artery stenosis s/ endarterectomy, PAD and mesenteric disease as well. Stable. Seems not to be on statin due to allergy. May have to be revisited by her PCP/buffer machine 43 minutes spent in face to face encounter, meeting with family to update and answer questions, reviewing labs and CT data and images and meeting face to face with radiologist to discuss CT Code Visit Inpatient E&M: [id number] Subs Hosp L3
[2017-12-08 16:45] LABS: Amylase 44 U/L (25-115); Lipase 200 U/L (73-393)
[2017-12-08 16:46] VITALS: BP 155/46; PULSE 62; RESP 18; TEMP 37.2; O2SAT 92
[2017-12-08 18:51] LABS: Bedside Glucose 212 mg/dL (70-110)
[2017-12-08 21:45] LABS: Bedside Glucose 261 mg/dL (70-110)
[2017-12-08] MEDS: Morphine 2 MG/ML Syringe IV (21:47)
[2017-12-08 22:45] VITALS: BP 153/64; PULSE 64; RESP 18; TEMP 37.1; O2SAT 94
[2017-12-09 04:45] VITALS: BP 155/67; PULSE 69; RESP 18; TEMP 37.4; O2SAT 94
[2017-12-09 06:08] LABS: Absolute Lymphocyte Count 1.77 X10^3/ul (0.83-4.51); Absolute Neutrophil Count 17.5 X10^3/uL (2.0-7.7); Basophil# 0.02 X10^3/uL; Basophil% 0.1 % (0-1); Eosinophil# 0.04 X10^3/uL; Eosinophils% 0.2 % (0-5); Hematocrit 34.2 % (37-47); Hemoglobin 11.5 g/dl (12.0-15.0); Lymphocyte # 1.77 X10^3/ul (4.0); Lymphocyte % 7.9 % (19-41); Mean Corp Hgb Conc 33.6 g/gl (32-36); Mean Corpuscular Hgb 29.8 pg (27.0-32.0); Mean Corpuscular Volume 88.6 fL (81-99); Mean Platelet Vol. 10.7 fl (6.2-12.0); Monocyte# 2.94 X10^3/uL; Monocyte% 13.1 % (0-10); Neutrophil # 17.45 X10^3/uL (2.7-7.7); Neutrophil % 77.8 % (47-70); Platelet Count 204 K/mm3 (150-450); RBC Distribution Width CV 13.5 % (11.6-14.6); RBC Distribution Width SD 42.7 fl (35.1-43.9); Red Blood Count 3.86 M/mm3 (4.2-5.4); White Blood Count 22.4 K/mm3 (4.4-11.0)
[2017-12-09 06:09] LABS: Differential Indicated SCAN CRITERIA MET; POSITIVE COUNT NO; POSITIVE DIFFERENTIAL YES; POSITIVE MORPHOLOGY NO
[2017-12-09 06:25] LABS: ALB/GLOB Ratio 0.6 RATIO (0.9-2.4); AST(SGOT) 72 U/L (15-37); Alanine Aminotransfer ALT/SGPT 58 U/L (13-56); Albumin, Serum 2.2 g/dL (3.2-5.0); Alkaline Phosphatase 142 U/L (45-117); Anion Gap 9 (5-15); BUN 16 mg/dL (7-18); Calcium,Total 8.2 mg/dL (8.5-10.1); Chloride 104 mmol/L (98-107); Creatinine, Serum 1.23 mg/dL (0.55-1.02); EST Glomerular Filtration Rate 45 mL/min (>60); Est Glom Filt Rate - Afr Amer 55 mL/min (>60); Globulin 3.8 g/dL (2.2-4.2); Glucose 164 mg/dL (74-106); Potassium 4.3 mmol/L (3.5-5.1); Sodium Level 135 mmol/L (136-145)
[2017-12-09 06:26] LABS: Bedside Glucose 172 mg/dL (70-110)
[2017-12-09 06:44] LABS: Platelet Estimate ADEQUATE (ADEQ); Red Cell Morphology NORM C+C NORMAL (NORM C&C)
[2017-12-09 07:45] VITALS: O2SAT 92
[2017-12-09 08:49] VITALS: BP 121/60; PULSE 61; RESP 18; TEMP 37.1; O2SAT 95
[2017-12-09] MEDS: Enoxaparin 40 MG/0.4 ML Syringe SC (08:57)
[2017-12-09] MEDS: amLODIPine 10 MG Tablet PO (08:58)
[2017-12-09] MEDS: Atenolol 50 MG Tablet PO ×2 (08:58→21:07)
[2017-12-09] MEDS: Lisinopril 20 MG Tablet PO (08:58)
[2017-12-09 11:51] LABS: Bedside Glucose 143 mg/dL (70-110)
[2017-12-09 13:39] LABS: Pathologist Review Reviewed
--- NOTE | 2017-12-09 15:45 | RAD_ITS ---
STUDY: X-RAY CHEST REASON FOR EXAM: Female, 76 years old. Shortness of breath. TECHNIQUE: Single AP portable view of the chest. COMPARISON: Comparison is made with prior study dated August 26, 2015. FINDINGS: There is evidence of vascular congestion and mild CHF. Blunting of both costophrenic angles. Sternal cerclage wires and vascular clips are present from a prior sternotomy and coronary artery bypass graft procedure (CABG). Borderline cardiomegaly. Normal mediastinum and pavel. Normal visualized pulmonary arteries. There is atherosclerotic calcification of the aortic arch with tortuosity. There are diffuse degenerative changes of the visualized thoracic spine. Normal visualized ribs, clavicles, and shoulders. There is no demonstrated abnormality of the visualized soft tissue structures of the upper abdomen. RAD/Chest 1 View (Portable) IMPRESSION: Borderline cardiomegaly and CHF. Electronically Signed: Cuco Manuel MD at 16:04 EDT Tel [phone], Service support ,
[2017-12-09 15:49] VITALS: BP 142/54; PULSE 68; RESP 20; TEMP 37.1; O2SAT 93
--- NOTE | 2017-12-09 16:38 | PCM.CONS.GEN ---
Reason for Consult Date of Consultation: 12/09/17 History of Present Illness: The patient is a 76 year old F admitted 12/05 due to nausea and vomiting. Patient states the nausea and vomiting started at noon then continued and by Friday she did have abdominal pain patient states due to all the nausea and vomiting. Patient states prior to she was eating normally no issues with food no fear of food or any abdominal pain after eating. She was having normal bowel function denies any diarrhea prior to coming in. Patient was treated for possible colitis with meropenem and cefoxitin while she has been in the hospital however her white blood cell count has remained in the 20s unchanged essentially. Patient CT abdomen and pelvis did not show any active colitis showed some diverticulosis and some mild ascites on admit. 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 Patient currently denies any nausea or and has had no further vomiting since she has been admitted. She just states that her abdomen is sore when asked about abdominal pain. She did have some reflux after being started on the IV medication denies any reflux. Past Medical History Past Medical History (Chronic Problems): Chronic Problems (Last Reviewed 12/06/17 @ 03:31 by Wilder Lee MD) CKD (chronic kidney disease), stage III (Chronic) CAD (coronary artery disease) (Chronic) Osteoarthritis (Chronic) CKD (chronic kidney disease) (Chronic) History of MRSA infection (Chronic) Osteomyelitis of left foot (Chronic) Hypertension (Chronic) Peripheral arterial disease (Chronic) Type 2 diabetes mellitus (Chronic) Rheumatoid arthritis (Chronic) Medical History: Medical History (Last Reviewed 12/06/17 @ 03:31 by Wilder Lee MD) Arthritis M19.90 Breast lump in female N63.0 Cataracts, bilateral H26.9 Diabetes E11.9 Gallstones K80.20 Heart failure I50.9 Osteoarthritis M19.90 High blood pressure I10 Allergies adhesive Allergy (Verified 12/05/17 18:04) Unknown red skin, uses paper tape and is okay with this atorvastatin calcium [From Lipitor] Allergy (Verified 12/05/17 18:04) Unknown joint pain bacitracin [From Neosporin ([id number])] Allergy (Verified 12/05/17 18:04) Unknown rash bacitracin zinc [From Neosporin ([id number])] Allergy (Verified 12/05/17 18:04) Unknown rash fenofibrate nanocrystallized [From Tricor] Allergy (Verified 12/05/17 18:04) Unknown upset gi or muscle pain fenofibrate,micronized [From Tricor] Allergy (Verified 12/05/17 18:04) Unknown flurbiprofen Allergy (Verified 12/05/17 18:04) Unknown upset stomach gemfibrozil Allergy (Verified 12/05/17 18:04) Unknown upset stomach glipizide [From Glucotrol] Allergy (Verified 12/05/17 18:04) Unknown dizzy, upset gi metronidazole Allergy (Verified 12/05/17 18:04) ALLERGY neomycin sulfate [From Neosporin ([id number])] Allergy (Verified 12/05/17 18:04) Unknown rash polymyxin B [From Neosporin ([id number])] Allergy (Verified 12/05/17 18:04) Unknown rash prednisolone acetate, micronized Allergy (Verified 12/05/17 18:04) ALLERGY simvastatin Allergy (Verified 12/05/17 18:04) ALLERGY tramadol [From Ultram] Allergy (Verified 12/05/17 18:04) ALLERGY pravastatin Adverse Reaction (Verified 12/05/17 18:04) Other MUSCLE PAIN Home Medications: Ambulatory Orders Medication Instructions Recorded Insulin Glargine [Lantus SoloStar 10 - 12 units SC QHS 08/26/15 Pen] Metformin HCl [Glucophage] 500 mg PO TIDCM 08/26/15 glyBURIDE [Micronase] 5 mg PO DAILY@0800 08/26/15 Ascorbic Acid [Vitamin C] 500 mg PO DAILY 12/09/16 Atenolol [Tenormin (beta charlie)] 50 mg PO BID 12/09/16 Cholecalciferol (Vitamin D3) 1,000 unit PO DAILY 12/09/16 [Vitamin D3] Cyanocobalamin (Vitamin B-12) 1,000 mcg PO DAILY 12/09/16 [Vitamin B-12] Multivitamin [Multiple Vitamins] 1 ea PO DAILY 12/09/16 [place]-3 Fatty Acids/Fish Oil 1 cap PO BID 12/09/16 [[place] 3 Fish Oil Softgel] Furosemide [Lasix] 20 mg PO QODAY 12/25/16 Acetaminophen [Tylenol] 1,000 mg PO Q8H PRN PRN 06/10/17 Aspirin 81 mg PO DAILY 06/11/17 Amlodipine [Norvasc] 10 mg PO DAILY #30 tab 06/13/17 Lisinopril 20 mg PO DAILY 12/05/17 Surgical History: Surgical History (Last Reviewed 12/06/17 @ 03:31 by Wilder Lee MD) History of cholecystectomy Z90.49 History of heart bypass surgery Z95.1 History of knee replacement Z96.659 Surgical History: appendectomy, cataract, cholecystectomy - open, coronary bypass surgery, hysterectomy - with BSO., total knee arthroplasty - Right, tonsillectomy, - - Foot bunion surgery bilaterally, hammertoe surgery, left carotid endarterectomy, peripheral vascular disease surgery both legs with stent on the right. Left great toe amputation. Right third toe amputation. Psychiatric History: No pertinent psych hx [employer] History: No pertinent [employer] history Lives: Spouse/ Significant Other Smoking Status: Never smoker - *Family History Maternal Family History: Family History (Last Updated 06/18/17 @ 11:08 by Rhoda Resendez) Mother Diabetes Father Hypertension CVA (cerebral vascular accident) Brother Lung cancer Sister Breast cancer COPD (chronic obstructive pulmonary disease) History Items: No pertinent history Paternal Family History: Family History (Last Updated 06/18/17 @ 11:08 by Rhoda Resendez) Mother Diabetes Father Hypertension CVA (cerebral vascular accident) Brother Lung cancer Sister Breast cancer COPD (chronic obstructive pulmonary disease) History Items: No pertinent history Sibling Family History: Family History (Last Updated 06/18/17 @ 11:08 by Rhoda Resendez) Mother Diabetes Father Hypertension CVA (cerebral vascular accident) Brother Lung cancer Sister Breast cancer COPD (chronic obstructive pulmonary disease) History Items: No pertinent history Review of Systems Constitutional: Denies: Anorexia, Chills HEENT: Denies: Difficulty Swallowing Cardiovascular: Denies: Chest Pain Respiratory: Denies: Shortness of Breath Gastrointestinal: Reports: Diarrhea. Denies: Nausea, Vomiting Genitourinary: Denies: Dysuria Skin: Denies: Rash Neurological: Denies: Numbness Psychiatric: Denies: Depression Hematologic/ Lymphatic: Denies: Easy Bruising, Easy Bleeding Patient Problems: Active and Suspected Problems (Last Reviewed 12/06/17 @ 03:31 by Wilder Lee MD) Infectious colitis (Acute) - Physical Exam General: Alert, Oriented x3, Cooperative, No apparent distress Cardiovascular: Regular rate Abdomen: Soft, Non Tender - c/o soreness but no change with palpation, Distended - mild Extremities: No clubbing, No cyanosis Skin: No rashes, No breakdown Neurological: Cranial nerves II-XII grossly intact Psych/Mental Status: Normal Affect Vital Signs Temp Pulse Resp BP Pulse Ox 98.7 F 68 20 H 142/54 H 93 12/09/17 15:49 12/09/17 15:49 12/09/17 15:49 12/09/17 15:49 12/09/17 15:49 Oxygen Flow Rate (L/min) 3 Oxygen Delivery Method Nasal Cannula Weight: 168 lb 6.401 oz Body Mass Index (BMI) 28.9 Intake and Output for Last 24 Hours 12/07/17 12/08/17 12/09/17 23:59 23:59 23:59 Intake Total 1844 / 1844 1199 / 1199 1950 / 1950 Output Total 2825 / 2825 2200 / 2200 900 / 900 Balance -981 / -981 -1001 / -1001 1050 / 1050 Microbiology Past 72 Hours 12/06/17 01:16 Blood Culture - Preliminary Blood Culture (Wb) - Anticubital Right No growth in 48 hours. Laboratory Tests Past 24 Hrs 12/08/17 12/09/17 12/09/17 15:58 05:30 05:35 WBC 22.4 H RBC 3.86 L Hgb 11.5 L Hct 34.2 L MCV 88.6 MCH 29.8 MCHC 33.6 RDW 13.5 RDW Differential 42.7 Plt Count 204 MPV 10.7 Immature Gran % (Auto) 0.900 Neut % (Auto) 77.8 H Lymph % (Auto) 7.9 L [place] % (Auto) 13.1 H Eos % (Auto) 0.2 Baso % (Auto) 0.1 Absolute Neuts (auto) 17.5 H Absolute Lymphs (auto) 1.77 Total Counted Not Reportable Differential Comment SEE COMMENT Diff Path Review Reviewed Platelet Estimate ADEQUATE RBC Morphology NORM C+C Sodium 135 L Potassium 4.3 Chloride 104 Carbon Dioxide 22.0 Anion Gap 9 BUN 16 Creatinine 1.23 H Estim Creat Clear Calc 33.60 Est GFR (MDRD) Af Amer 55 L Est GFR (MDRD) Non-Af 45 L BUN/Creatinine Ratio 13.0 Glucose 164 H Calcium 8.2 L Total Bilirubin 1.10 H AST 72 H ALT 58 H Alkaline Phosphatase 142 H Total Protein 6.0 L Albumin 2.2 L Globulin 3.8 Albumin/Globulin Ratio 0.6 L Amylase 44 Lipase 200 POC Glucose 12/09/17 12/09/17 12/08/17 11:45 06:19 21:37 POC Glucose 143 H 172 H 261 H 12/08/17 16:41 POC Glucose 212 H Assessment/Plan All Active Problems (Last Reviewed 12/06/17 @ 03:31 by Wilder Lee MD) Infectious colitis (Acute) Acute osteomyelitis of right hand including fingers (Acute) Diabetes with skin ulcer (Acute) Cellulitis of right index finger (Acute) 76-year-old female with leukocytosis, admitted for nausea and vomiting 1. Reviewed the CT abdomen and pelvis with her daughters as well as the CTA of the abdomen and pelvis. No acute surgical issues in combination with her abdominal exam is benign she does have an umbilical hernia which is easily reducible denies any pain on palpation just soreness that she complains of even prior to palpation. Patient currently denies any nausea vomiting did tolerate her clear diet. Unknown etiology of her leukocytosis-patient's white blood cell count has basically been unchanged even on cefotetan and until yesterday morning. Patient's liver function enzymes are mildly elevated will recheck in a.m. s/p open cholecystectomy >30 years ago. Chest x-ray was ordered due to her new increasing shortness of breath. Discussed with Dr. Santiago, he plans to consult ID. Tammie Orosco M.D. Pager: [phone] [facility] [address] [place] [address], Outpatient Pavilion, [address] [place] [address] Office: [phone] Code Visit Inpatient E&M: 14967 Init Hosp L1
[2017-12-09] MEDS: Insulin Lispro 100 UNIT/ML INSULN.PEN SQ ×2 (16:40→21:07)
--- NOTE | 2017-12-09 16:44 | CON.PCM_ITS ---
Reason for Consult Date of Consultation: 12/09/17 History of Present Illness: The patient is a 76 year old F admitted 12/05 due to nausea and vomiting. Patient states the nausea and vomiting started at noon then continued and by Friday she did have abdominal pain patient states due to all the nausea and vomiting. Patient states prior to she was eating normally no issues with food no fear of food or any abdominal pain after eating. She was having normal bowel function denies any diarrhea prior to coming in. Patient was treated for possible colitis with meropenem and cefoxitin while she has been in the hospital however her white blood cell count has remained in the 20s unchanged essentially. Patient CT abdomen and pelvis did not show any active colitis showed some diverticulosis and some mild ascites on admit. 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 Patient currently denies any nausea or and has had no further vomiting since she has been admitted. She just states that her abdomen is sore when asked about abdominal pain. She did have some reflux after being started on the IV medication denies any reflux. Past Medical History Past Medical History (Chronic Problems): Chronic Problems (Last Reviewed 12/06/17 @ 03:31 by Wilder Lee MD) CKD (chronic kidney disease), stage III (Chronic) CAD (coronary artery disease) (Chronic) Osteoarthritis (Chronic) CKD (chronic kidney disease) (Chronic) History of MRSA infection (Chronic) Osteomyelitis of left foot (Chronic) Hypertension (Chronic) Peripheral arterial disease (Chronic) Type 2 diabetes mellitus (Chronic) Rheumatoid arthritis (Chronic) Medical History: Medical History (Last Reviewed 12/06/17 @ 03:31 by Wilder Lee MD) Arthritis M19.90 Breast lump in female N63.0 Cataracts, bilateral H26.9 Diabetes E11.9 Gallstones K80.20 Heart failure I50.9 Osteoarthritis M19.90 High blood pressure I10 Allergies adhesive Allergy (Verified 12/05/17 18:04) Unknown red skin, uses paper tape and is okay with this atorvastatin calcium [From Lipitor] Allergy (Verified 12/05/17 18:04) Unknown joint pain bacitracin [From Neosporin ([id number])] Allergy (Verified 12/05/17 18:04) Unknown rash bacitracin zinc [From Neosporin ([id number])] Allergy (Verified 12/05/17 18: 04) Unknown rash fenofibrate nanocrystallized [From Tricor] Allergy (Verified 12/05/17 18:04) Unknown upset gi or muscle pain fenofibrate,micronized [From Tricor] Allergy (Verified 12/05/17 18:04) Unknown flurbiprofen Allergy (Verified 12/05/17 18:04) Unknown upset stomach gemfibrozil Allergy (Verified 12/05/17 18:04) Unknown upset stomach glipizide [From Glucotrol] Allergy (Verified 12/05/17 18:04) Unknown dizzy, upset gi metronidazole Allergy (Verified 12/05/17 18:04) ALLERGY neomycin sulfate [From Neosporin ([id number])] Allergy (Verified 12/05/17 18: 04) Unknown rash polymyxin B [From Neosporin ([id number])] Allergy (Verified 12/05/17 18:04) Unknown rash prednisolone acetate, micronized Allergy (Verified 12/05/17 18:04) ALLERGY simvastatin Allergy (Verified 12/05/17 18:04) ALLERGY tramadol [From Ultram] Allergy (Verified 12/05/17 18:04) ALLERGY pravastatin Adverse Reaction (Verified 12/05/17 18:04) Other MUSCLE PAIN Home Medications: Ambulatory Orders Medication Instructions Recorded Insulin Glargine [Lantus SoloStar 10 - 12 units SC QHS 08/26/15 Pen] Metformin HCl [Glucophage] 500 mg PO TIDCM 08/26/15 glyBURIDE [Micronase] 5 mg PO DAILY@0800 08/26/15 Ascorbic Acid [Vitamin C] 500 mg PO DAILY 12/09/16 Atenolol [Tenormin (beta charlie)] 50 mg PO BID 12/09/16 Cholecalciferol (Vitamin D3) 1,000 unit PO DAILY 12/09/16 [Vitamin D3] Cyanocobalamin (Vitamin B-12) 1,000 mcg PO DAILY 12/09/16 [Vitamin B-12] Multivitamin [Multiple Vitamins] 1 ea PO DAILY 12/09/16 [place]-3 Fatty Acids/Fish Oil 1 cap PO BID 12/09/16 [[place] 3 Fish Oil Softgel] Furosemide [Lasix] 20 mg PO QODAY 12/25/16 Acetaminophen [Tylenol] 1,000 mg PO Q8H PRN PRN 06/10/17 Aspirin 81 mg PO DAILY 06/11/17 Amlodipine [Norvasc] 10 mg PO DAILY #30 tab 06/13/17 Lisinopril 20 mg PO DAILY 12/05/17 Surgical History: Surgical History (Last Reviewed 12/06/17 @ 03:31 by Wilder Lee MD) History of cholecystectomy Z90.49 History of heart bypass surgery Z95.1 History of knee replacement Z96.659 Surgical History: appendectomy, cataract, cholecystectomy - open, coronary bypass surgery, hysterectomy - with BSO., total knee arthroplasty - Right, tonsillectomy, - - Foot bunion surgery bilaterally, hammertoe surgery, left carotid endarterectomy, peripheral vascular disease surgery both legs with stent on the right. Left great toe amputation. Right third toe amputation. Psychiatric History: No pertinent psych hx [employer] History: No pertinent [employer] WORK[employer] history Lives: Spouse/ Significant Other Smoking Status: Never smoker - *Family History Maternal Family History: Family History (Last Updated 06/18/17 @ 11:08 by Rhoda Resendez) Mother Diabetes Father Hypertension CVA (cerebral vascular accident) Brother Lung cancer Sister Breast cancer COPD (chronic obstructive pulmonary disease) History Items: No pertinent history Paternal Family History: Family History (Last Updated 06/18/17 @ 11:08 by Rhoda Resendez) Mother Diabetes Father Hypertension CVA (cerebral vascular accident) Brother Lung cancer Sister Breast cancer COPD (chronic obstructive pulmonary disease) History Items: No pertinent history Sibling Family History: Family History (Last Updated 06/18/17 @ 11:08 by Rhoda Resendez) Mother Diabetes Father Hypertension CVA (cerebral vascular accident) Brother Lung cancer Sister Breast cancer COPD (chronic obstructive pulmonary disease) History Items: No pertinent history Review of Systems Constitutional: Denies: Anorexia, Chills HEENT: Denies: Difficulty Swallowing Cardiovascular: Denies: Chest Pain Respiratory: Denies: Shortness of Breath Gastrointestinal: Reports: Diarrhea. Denies: Nausea, Vomiting Genitourinary: Denies: Dysuria Skin: Denies: Rash Neurological: Denies: Numbness Psychiatric: Denies: Depression Hematologic/ Lymphatic: Denies: Easy Bruising, Easy Bleeding Patient Problems: Active and Suspected Problems (Last Reviewed 12/06/17 @ 03:31 by Wilder Lee MD) Infectious colitis (Acute) - Physical Exam General: Alert, Oriented x3, Cooperative, No apparent distress Cardiovascular: Regular rate Abdomen: Soft, Non Tender - c/o soreness but no change with palpation, Distended - mild Extremities: No clubbing, No cyanosis Skin: No rashes, No breakdown Neurological: Cranial nerves II-XII grossly intact Psych/Mental Status: Normal Affect Vital Signs Temp Pulse Resp BP Pulse Ox 98.7 F 68 20 H 142/54 H 93 12/09/17 15:49 12/09/17 15:49 12/09/17 15:49 12/09/17 15:49 12/09/17 15:49 Oxygen Flow Rate (L/min) 3 Oxygen Delivery Method Nasal Cannula Weight: 168 lb 6.401 oz Body Mass Index (BMI) 28.9 Intake and Output for Last 24 Hours 12/07/17 12/08/17 12/09/17 23:59 23:59 23:59 Intake Total 1844 / 1844 1199 / 1199 1950 / 1950 Output Total 2825 / 2825 2200 / 2200 900 / 900 Balance -981 / -981 -1001 / -1001 1050 / 1050 Microbiology Past 72 Hours 12/06/17 01:16 Blood Culture - Preliminary Blood Culture (Wb) - Anticubital Right No growth in 48 hours. Laboratory Tests Past 24 Hrs 12/08/17 12/09/17 12/09/17 15:58 05:30 05:35 WBC 22.4 H RBC 3.86 L Hgb 11.5 L Hct 34.2 L MCV 88.6 MCH 29.8 MCHC 33.6 RDW 13.5 RDW Differential 42.7 Plt Count 204 MPV 10.7 Immature Gran % (Auto) 0.900 Neut % (Auto) 77.8 H Lymph % (Auto) 7.9 L [place] % (Auto) 13.1 H Eos % (Auto) 0.2 Baso % (Auto) 0.1 Absolute Neuts (auto) 17.5 H Absolute Lymphs (auto) 1.77 Total Counted Not Reportable Differential Comment SEE COMMENT Diff Path Review Reviewed Platelet Estimate ADEQUATE RBC Morphology NORM C+C Sodium 135 L Potassium 4.3 Chloride 104 Carbon Dioxide 22.0 Anion Gap 9 BUN 16 Creatinine 1.23 H Estim Creat Clear Calc 33.60 Est GFR (MDRD) Af Amer 55 L Est GFR (MDRD) Non-Af 45 L BUN/Creatinine Ratio 13.0 Glucose 164 H Calcium 8.2 L Total Bilirubin 1.10 H AST 72 H ALT 58 H Alkaline Phosphatase 142 H Total Protein 6.0 L Albumin 2.2 L Globulin 3.8 Albumin/Globulin Ratio 0.6 L Amylase 44 Lipase 200 POC Glucose 12/09/17 12/09/17 12/08/17 11:45 06:19 21:37 POC Glucose 143 H 172 H 261 H 12/08/17 16:41 POC Glucose 212 H Assessment/Plan All Active Problems (Last Reviewed 12/06/17 @ 03:31 by Wilder Lee MD) Infectious colitis (Acute) Acute osteomyelitis of right hand including fingers (Acute) Diabetes with skin ulcer (Acute) Cellulitis of right index finger (Acute) 76-year-old female with leukocytosis, admitted for nausea and vomiting 1. Reviewed the CT abdomen and pelvis with her daughters as well as the CTA of the abdomen and pelvis. No acute surgical issues in combination with her abdominal exam is benign she does have an umbilical hernia which is easily reducible denies any pain on palpation just soreness that she complains of even prior to palpation. Patient currently denies any nausea vomiting did tolerate her clear diet. Unknown etiology of her leukocytosis-patient's white blood cell count has basically been unchanged even on cefotetan and until yesterday morning. Patient 's liver function enzymes are mildly elevated will recheck in a.m. s/p open cholecystectomy >30 years ago. Chest x-ray was ordered due to her new increasing shortness of breath. Discussed with Dr. Santiago, he plans to consult ID. Tammie Orosco M.D. Pager: [phone] [facility] [address] [place] [address], Outpatient Pavilion, [address] [place] [address] Office: [phone] Code Visit Inpatient E&M: 31859 Init Hosp L1
[2017-12-09 16:45] LABS: Bedside Glucose 165 mg/dL (70-110)
[2017-12-09 17:21] LABS: BNP,B-Type NATRIURETIC PEPTIDE 754.6 pg/mL (0-100)
[2017-12-09] MEDS: Furosemide 40 MG/4 ML Vial IV (17:27)
--- NOTE | 2017-12-09 17:58 | PCM.PROGNOTE ---
Patient Problems: Active and Suspected Problems (Last Reviewed 12/06/17 @ 03:31 by Wilder Lee MD) Infectious colitis (Acute) Subjective: Patient was seen and examined today, I reviewed her chart thoroughly and I do not feel she has infectious colitis. I do not understand why the patient's white blood cell count is elevated, I had general surgery see her and they do not feel the patient has colitis or any intra-abdominal infectious process at this time. I will have infectious diseases see the patient tomorrow, general surgery requested the patient be kept on clear liquids for now, she has been complaining of some nausea but overall was able to take clear liquids today without difficulty. Performed a chest x-ray on the patient today which showed evidence of congestive heart failure, patient's beta natruretic peptide was elevated at 754. I decided to give the patient 1 dose of IV Lasix 40 mg, patient is not receiving any IV fluids at this time and I will reassess her tomorrow based on her urine output from the Lasix. Patient is currently not on any antibiotics. - Physical Exam General: Alert, Oriented x3, Cooperative, No apparent distress, Well developed, Well nourished HEENT: Atraumatic, PERRLA, EOMI, Normocephalic Oral: Moist Mucosa Neck: Supple, No Nuchal Rigidity, Trachea Midline, Thyroid Normal Size and Texture Lungs: Clear to auscultation, No rhonchi, No wheeze, Diminished Cardiovascular: Regular rate, Regular Rhythm, Normal S1, Normal S2, No murmurs, No Ectopic Activity, PMI Normal, No rub noted, No Gallop Abdomen: Bowel Sounds Present, Soft, Non Tender, Non-Distended, No hernias noted Extremities: No clubbing, No cyanosis, Capillary Refill Less than 3 Seconds Skin: No rashes, No breakdown Musculoskeletal: No Tenderness to Palpation of Joints or Extremities Neurological: Cranial nerves II-XII grossly intact, Neuro grossly intact, Sensory exam intact to light touch and pain, Coordination normal Psych/Mental Status: Normal Affect, Appropriate, Alert and oriented to time, place, person, mood and affect Vital Signs Temp Pulse Resp BP Pulse Ox 98.7 F 68 20 H 142/54 H 93 12/09/17 15:49 12/09/17 15:49 12/09/17 15:49 12/09/17 15:49 12/09/17 15:49 Oxygen Flow Rate (L/min) 3 Oxygen Delivery Method Nasal Cannula Weight: 76.385 kg Body Mass Index (BMI) 28.9 Intake and Output for Last 24 Hours 12/07/17 12/08/17 12/09/17 23:59 23:59 23:59 Intake Total 1844 / 1844 1199 / 1199 2430 / 2430 Output Total 2825 / 2825 2200 / 2200 900 / 900 Balance -981 / -981 -1001 / -1001 1530 / 1530 Microbiology Past 72 Hours 12/06/17 01:16 Blood Culture - Preliminary Blood Culture (Wb) - Anticubital Right No growth in 48 hours. Laboratory Tests Past 24 Hrs 12/09/17 12/09/17 12/09/17 05:30 05:35 16:31 WBC 22.4 H RBC 3.86 L Hgb 11.5 L Hct 34.2 L MCV 88.6 MCH 29.8 MCHC 33.6 RDW 13.5 RDW Differential 42.7 Plt Count 204 MPV 10.7 Immature Gran % (Auto) 0.900 Neut % (Auto) 77.8 H Lymph % (Auto) 7.9 L [place] % (Auto) 13.1 H Eos % (Auto) 0.2 Baso % (Auto) 0.1 Absolute Neuts (auto) 17.5 H Absolute Lymphs (auto) 1.77 Total Counted Not Reportable Differential Comment SEE COMMENT Diff Path Review Reviewed Platelet Estimate ADEQUATE RBC Morphology NORM C+C Sodium 135 L Potassium 4.3 Chloride 104 Carbon Dioxide 22.0 Anion Gap 9 BUN 16 Creatinine 1.23 H Estim Creat Clear Calc 33.60 Est GFR (MDRD) Af Amer 55 L Est GFR (MDRD) Non-Af 45 L BUN/Creatinine Ratio 13.0 Glucose 164 H Calcium 8.2 L Total Bilirubin 1.10 H AST 72 H ALT 58 H Alkaline Phosphatase 142 H B-Natriuretic Peptide 754.6 H Total Protein 6.0 L Albumin 2.2 L Globulin 3.8 Albumin/Globulin Ratio 0.6 L POC Glucose 12/09/17 12/09/17 12/09/17 16:38 11:45 06:19 POC Glucose 165 H 143 H 172 H 12/08/17 12/08/17 21:37 16:41 POC Glucose 261 H 212 H Medical Necessity - Tobacco Use Smoking Status: Never smoker Assessment/Plan All Active Problems (Last Reviewed 12/06/17 @ 03:31 by Wilder Lee MD) Infectious colitis (Acute) Acute osteomyelitis of right hand including fingers (Acute) Diabetes with skin ulcer (Acute) Cellulitis of right index finger (Acute) #1 leukocytosis-etiology unclear at this point, I will keep the patient off IV antibiotics for now and have infectious diseases see the patient tomorrow #2 nausea and vomiting-possibly secondary to viral gastroenteritis, this has resolved at this point #3 acute congestive heart failure-type unknown, I will order an echocardiogram with the patient tomorrow, patient had received vigorous fluid administration after she was admitted to the hospital this admission, she is no longer receiving any IV fluids. According to the patient's family, patient takes oral Lasix at home is been off of Lasix since admission. #4 type 2 diabetes #5 hypertension #6 hypoxia-secondary to acute congestive heart failure-type unknown, monitor O2 sat, IV Lasix given today I do not believe patient had evidence of pancreatitis during this hospital admission. Code Visit Inpatient E&M: 65171 Subs Hosp L2
[2017-12-09 20:30] VITALS: BP 159/67; PULSE 74; RESP 20; TEMP 36.7; O2SAT 94
[2017-12-09 21:21] LABS: Bedside Glucose 185 mg/dL (70-110)
[2017-12-10] VITALS (7 sets, daily range): BP systolic 132–163; BP diastolic 35–98; PULSE 62–79; RESP 18–20; TEMP 36.6–37.1; O2SAT 81–98
--- NOTE | 2017-12-10 05:55 | ECHOD_ITS ---
Reason For Study: CHF Procedure This was a 2D Doppler, Color Flow transthoracic echocardiogram. Exam performed portable in patient room. Left Ventricle Normal size and thickness. The estimated ejection fraction is 65 %. Stage 2 diastolic dysfunction. No regional wall motion abnormalities noted. Right Ventricle Normal size and thickness. Normal systolic function. Atria The left atrium is mildly enlarged. Normal right atrium. Normal atrial septum. Mitral Valve Mild diffuse mitral valve thickening. Moderate mitral annular calcification extending into the posterior leaflet. Mild (1+) mitral valve insufficiency. Tricuspid Valve Normal tricuspid valve. Mild (1+) tricuspid valve insufficiency. Right ventricular systolic pressure estimated to be 50 mmHg. Moderate pulmonary hypertension. Aortic Valve Trisinus/trileaflet aortic valve. Moderate focal aortic valve thickening. Mild diffuse aortic valve thickening. Moderate restriction of the aortic valve. Mild to moderate aortic stenosis. Peak aortic valve gradient 32 mmHg. Mean aortic valve gradient 18 mmHg. Calculated aortic valve area (continuity equation) is 1.3 cm2. Pulmonic Valve Normal pulmonic valve. Great Vessels Normal aortic root. Mild atherosclerosis of the aortic arch. Normal inferior vena cava. Inferior vena cava collapse with sniff. Pericardium/Pleural No pericardial effusion. MMode/2D Measurements & Calculations LVIDd: 3.5 cm IVSd: 1.1 cm LVOT diam: 2.1 cm LVIDs: 2.5 cm LVPWd: 1.1 cm LVOT area: 3.5 cm2 RVDd: 3.5 cm FS: 29.6 % LA dimension: 4.5 cm LAV(MOD-bp): 80.7 ml LA A4 area: 23.3 cm2 LAV(MOD-bp) Indexed: 44.4 ml/m2 LAV(MOD-sp2): 77.0 ml LAV(MOD-sp4): 77.3 ml RA A4 area: 17.8 cm2 Doppler Measurements & Calculations MV E max elías: 161.9 cm/sec Lat Peak E' Elías: 11.3 cm/sec Med Peak E' Elías: 6.5 cm/sec MV A max elías: 62.4 cm/sec E/E' lat: 14.3 E/E' med: 24.8 MV E/A: 2.6 Ao V2 max: 283.5 cm/sec LV V1 max: 108.8 cm/sec SV(LVOT): 97.1 ml Ao max P.2 mmHg LV V1 max P.7 mmHg Ao V2 mean: 204.6 cm/sec LV V1 mean P.0 mmHg Ao mean P.2 mmHg LV V1 mean: 84.4 cm/sec Ao V2 VTI: 65.0 cm LV V1 VTI: 28.1 cm SANA(I,D): 1.5 cm2 SANA(V,D): 1.3 cm2 PA V2 max: 88.4 cm/sec TR max elías: 302.9 cm/sec TR max P.5 mmHg Interpretation Summary The estimated ejection fraction is 65 %. Stage 2 diastolic dysfunction. The left atrium is mildly enlarged. Mild (1+) mitral valve insufficiency. Mild (1+) tricuspid valve insufficiency. Right ventricular systolic pressure estimated to be 50 mmHg. Moderate pulmonary hypertension. Mild to moderate aortic stenosis with immobile non coronary cusp. There is no comparison study available. Ordering Physician: Blas Pagan Referring Physician: Kelsy Mensah Performed By: Merry Edwards, ALAN, RVT
[2017-12-10 06:15] LABS: Absolute Lymphocyte Count 1.91 X10^3/ul (0.83-4.51); Absolute Neutrophil Count 13.9 X10^3/uL (2.0-7.7); Basophil# 0.04 X10^3/uL; Basophil% 0.2 % (0-1); Eosinophil# 0.14 X10^3/uL; Eosinophils% 0.8 % (0-5); Hematocrit 32.6 % (37-47); Hemoglobin 11.2 g/dl (12.0-15.0); Lymphocyte # 1.91 X10^3/ul (4.0); Lymphocyte % 10.3 % (19-41); Mean Corp Hgb Conc 34.4 g/gl (32-36); Mean Corpuscular Hgb 30.5 pg (27.0-32.0); Mean Corpuscular Volume 88.8 fL (81-99); Mean Platelet Vol. 10.6 fl (6.2-12.0); Monocyte# 2.25 X10^3/uL; Monocyte% 12.2 % (0-10); Neutrophil # 13.89 X10^3/uL (2.7-7.7); Platelet Count 206 K/mm3 (150-450); RBC Distribution Width CV 13.7 % (11.6-14.6); RBC Distribution Width SD 42.6 fl (35.1-43.9); Red Blood Count 3.67 M/mm3 (4.2-5.4); White Blood Count 18.5 K/mm3 (4.4-11.0)
[2017-12-10 06:18] LABS: Differential Indicated SCAN CRITERIA MET; POSITIVE COUNT NO; POSITIVE DIFFERENTIAL YES; POSITIVE MORPHOLOGY NO
[2017-12-10 06:23] LABS: AST(SGOT) 42 U/L (15-37); Alanine Aminotransfer ALT/SGPT 53 U/L (13-56); Alkaline Phosphatase 140 U/L (45-117); Bilirubin, Direct 0.48 mg/dL (0.00-0.30); Globulin 3.9 g/dL (2.2-4.2); Protein, Total 5.9 g/dL (6.4-8.2)
[2017-12-10 06:51] LABS: Bedside Glucose 128 mg/dL (70-110)
--- NOTE | 2017-12-10 09:29 | PCM.PN.SRG ---
Patient Problems: Active and Suspected Problems (Last Reviewed 12/06/17 @ 03:31 by Wilder Lee MD) Infectious colitis (Acute) Subjective: Patient denies abdominal pain complains of just soreness but has been tolerating clears yesterday denies any nausea or vomiting does complain of diarrhea still which started yesterday after being on antibiotics for about 3 days. Patient did inform me that 26 years after having her open cholecystectomy she did have to go to [facility] for an ERCP due to abdominal pain and jaundice however she denies any similar pain to that episode prior to coming in or in the hospital - Physical Exam General: Alert, Oriented x3, Cooperative, No apparent distress Cardiovascular: Regular rate Abdomen: Soft, Non Tender, Non-Distended, Hernia - Umbilical hernia easily reducible Vital Signs Temp Pulse Resp BP Pulse Ox 97.8 F 79 18 163/54 H 95 12/10/17 09:19 12/10/17 09:19 12/10/17 09:19 12/10/17 09:19 12/10/17 09:19 Oxygen Flow Rate (L/min) 3 Oxygen Delivery Method Nasal Cannula Weight: 168 lb 6.401 oz Body Mass Index (BMI) 28.9 Intake and Output for Last 24 Hours 12/08/17 12/09/17 12/10/17 23:59 23:59 23:59 Intake Total 1199 / 1199 2430 / 2430 250 / 250 Output Total 2200 / 2200 1200 / 1200 750 / 750 Balance -1001 / -1001 1230 / 1230 -500 / -500 Microbiology Past 72 Hours 12/06/17 01:16 Blood Culture - Preliminary Blood Culture (Wb) - Anticubital Right No growth in 48 hours. Laboratory Tests Past 24 Hrs 12/09/17 12/09/17 12/10/17 05:30 16:31 05:05 WBC 18.5 H RBC 3.67 L Hgb 11.2 L Hct 32.6 L MCV 88.8 MCH 30.5 MCHC 34.4 RDW 13.7 RDW Differential 42.6 Plt Count 206 MPV 10.6 Immature Gran % (Auto) 1.500 H Neut % (Auto) 75.0 H Lymph % (Auto) 10.3 L [place] % (Auto) 12.2 H Eos % (Auto) 0.8 Baso % (Auto) 0.2 Absolute Neuts (auto) 13.9 H Absolute Lymphs (auto) 1.91 Total Counted Not Reportable Diff Path Review Reviewed July Total Bilirubin Direct Bilirubin AST ALT Alkaline Phosphatase C-React Prot Ext Range B-Natriuretic Peptide 754.6 H Total Protein Albumin Globulin 12/10/17 05:05 WBC RBC Hgb Hct MCV MCH MCHC RDW RDW Differential Plt Count MPV Immature Gran % (Auto) Neut % (Auto) Lymph % (Auto) [place] % (Auto) Eos % (Auto) Baso % (Auto) Absolute Neuts (auto) Absolute Lymphs (auto) Total Counted Diff Path Review Total Bilirubin 1.30 H Direct Bilirubin 0.48 H AST 42 H ALT 53 Alkaline Phosphatase 140 H C-React Prot Ext Range 226.00 H B-Natriuretic Peptide Total Protein 5.9 L Albumin 2.0 L Globulin 3.9 POC Glucose 12/10/17 12/09/17 12/09/17 06:44 21:05 16:38 POC Glucose 128 H 185 H 165 H 12/09/17 11:45 POC Glucose 143 H Medical Necessity - Tobacco Use Smoking Status: Never smoker Assessment/Plan All Active Problems (Last Reviewed 12/06/17 @ 03:31 by Wilder Lee MD) Infectious colitis (Acute) Acute osteomyelitis of right hand including fingers (Acute) Diabetes with skin ulcer (Acute) Cellulitis of right index finger (Acute) 76-year-old female with leukocytosis, admitted for nausea and vomiting, elevated liver functions 1. Still no clear etiology of patient's leukocytosis or nausea and vomiting prior to coming in. Yesterday her liver functions were mildly elevated today the bilirubin is up slightly however the other LFTs are decreased. On her CT it does appear like she does have a dilated common bile duct which could be due to simply having her gallbladder out years ago; however there is no obvious filling defects seen on CT. Currently her liver functions are for the most part improving and she also denies any abdominal pain or nausea and vomiting currently. Also patient states that when she first came in she had nausea and vomiting on and was not until Friday after a lot of vomiting he did she have any abdominal pain. Will continue to monitor the liver functions okay to advance to a full liquid diet. Did also discuss with Dr. Thompson in case she would possibly need an ERCP. Do not think the MRCP would be of much use currently has even if it is negative we would continue to just watch her liver functions. Discussed with Dr. Jack Orosco M.D. Pager: [phone] [facility] [address] [place] [address], [facility], [address] [place] [address] Office: [phone] Code Visit Inpatient E&M: 12471 Subs Hosp L1
--- NOTE | 2017-12-10 09:34 | PN.SURG_ITS ---
Patient Problems: Active and Suspected Problems (Last Reviewed 12/06/17 @ 03:31 by Wilder Lee MD) Infectious colitis (Acute) Subjective: Patient denies abdominal pain complains of just soreness but has been tolerating clears yesterday denies any nausea or vomiting does complain of diarrhea still which started yesterday after being on antibiotics for about 3 days. Patient did inform me that 26 years after having her open cholecystectomy she did have to go to [facility] for an ERCP due to abdominal pain and jaundice however she denies any similar pain to that episode prior to coming in or in the hospital - Physical Exam General: Alert, Oriented x3, Cooperative, No apparent distress Cardiovascular: Regular rate Abdomen: Soft, Non Tender, Non-Distended, Hernia - Umbilical hernia easily reducible Vital Signs Temp Pulse Resp BP Pulse Ox 97.8 F 79 18 163/54 H 95 12/10/17 09:19 12/10/17 09:19 12/10/17 09:19 12/10/17 09:19 12/10/17 09:19 Oxygen Flow Rate (L/min) 3 Oxygen Delivery Method Nasal Cannula Weight: 168 lb 6.401 oz Body Mass Index (BMI) 28.9 Intake and Output for Last 24 Hours 12/08/17 12/09/17 12/10/17 23:59 23:59 23:59 Intake Total 1199 / 1199 2430 / 2430 250 / 250 Output Total 2200 / 2200 1200 / 1200 750 / 750 Balance -1001 / -1001 1230 / 1230 -500 / -500 Microbiology Past 72 Hours 12/06/17 01:16 Blood Culture - Preliminary Blood Culture (Wb) - Anticubital Right No growth in 48 hours. Laboratory Tests Past 24 Hrs 12/09/17 12/09/17 12/10/17 05:30 16:31 05:05 WBC 18.5 H RBC 3.67 L Hgb 11.2 L Hct 32.6 L MCV 88.8 MCH 30.5 MCHC 34.4 RDW 13.7 RDW Differential 42.6 Plt Count 206 MPV 10.6 Immature Gran % (Auto) 1.500 H Neut % (Auto) 75.0 H Lymph % (Auto) 10.3 L [place] % (Auto) 12.2 H Eos % (Auto) 0.8 Baso % (Auto) 0.2 Absolute Neuts (auto) 13.9 H Absolute Lymphs (auto) 1.91 Total Counted Not Reportable Diff Path Review Reviewed July Total Bilirubin Direct Bilirubin AST ALT Alkaline Phosphatase C-React Prot Ext Range B-Natriuretic Peptide 754.6 H Total Protein Albumin Globulin 12/10/17 05:05 WBC RBC Hgb Hct MCV MCH MCHC RDW RDW Differential Plt Count MPV Immature Gran % (Auto) Neut % (Auto) Lymph % (Auto) [place] % (Auto) Eos % (Auto) Baso % (Auto) Absolute Neuts (auto) Absolute Lymphs (auto) Total Counted Diff Path Review Total Bilirubin 1.30 H Direct Bilirubin 0.48 H AST 42 H ALT 53 Alkaline Phosphatase 140 H C-React Prot Ext Range 226.00 H B-Natriuretic Peptide Total Protein 5.9 L Albumin 2.0 L Globulin 3.9 POC Glucose 12/10/17 12/09/17 12/09/17 06:44 21:05 16:38 POC Glucose 128 H 185 H 165 H 12/09/17 11:45 POC Glucose 143 H Medical Necessity - Tobacco Use Smoking Status: Never smoker Assessment/Plan All Active Problems (Last Reviewed 12/06/17 @ 03:31 by Wilder Lee MD) Infectious colitis (Acute) Acute osteomyelitis of right hand including fingers (Acute) Diabetes with skin ulcer (Acute) Cellulitis of right index finger (Acute) 76-year-old female with leukocytosis, admitted for nausea and vomiting, elevated liver functions 1. Still no clear etiology of patient's leukocytosis or nausea and vomiting prior to coming in. Yesterday her liver functions were mildly elevated today the bilirubin is up slightly however the other LFTs are decreased. On her CT it does appear like she does have a dilated common bile duct which could be due to simply having her gallbladder out years ago; however there is no obvious filling defects seen on CT. Currently her liver functions are for the most part improving and she also denies any abdominal pain or nausea and vomiting currently. Also patient states that when she first came in she had nausea and vomiting on and was not until Friday after a lot of vomiting he did she have any abdominal pain. Will continue to monitor the liver functions okay to advance to a full liquid diet. Did also discuss with Dr. Thompson in case she would possibly need an ERCP. Do not think the MRCP would be of much use currently has even if it is negative we would continue to just watch her liver functions. Discussed with Dr. Jack Orosco M.D. Pager: [phone] [facility] [address] [place] [address], [facility], [address] [place] [address] Office: [phone] Code Visit Inpatient E&M: 40369 Subs Hosp L1
[2017-12-10] MEDS: Enoxaparin 40 MG/0.4 ML Syringe SC (10:07)
[2017-12-10] MEDS: amLODIPine 10 MG Tablet PO (10:08)
[2017-12-10] MEDS: Atenolol 50 MG Tablet PO ×2 (10:08→22:09)
[2017-12-10] MEDS: Lisinopril 20 MG Tablet PO (10:08)
[2017-12-10] MEDS: Insulin Lispro 100 UNIT/ML INSULN.PEN SQ ×3 (11:28→22:07)
--- NOTE | 2017-12-10 11:31 | PCM.HP.ID ---
Problem List (1) Infectious colitis Status: Acute Reason for Consult: n/v Consulted by: Dr. Pagan History of Present Illness: The patient is a 76 year old F with recent hand infection who presented 12/05 to ED with acute onset n/v and lower abd cramping pain, no fever or chills. Multiple episodes of emesis. No sick contacts. Some clear sputum. No myalgias. Came to ED, CT done, started on ertapenem then cefotetan for ? colitis. Abx stopped 12/08, feeling better, abd mildly sore still from prior emesis. No issues with hands. Full ROS performed and neg except as noted above. - Medical History Past Medical History (Chronic Problems): Chronic Problems (Last Reviewed 12/06/17 @ 03:31 by Wilder Lee MD) CKD (chronic kidney disease), stage III (Chronic) CAD (coronary artery disease) (Chronic) Osteoarthritis (Chronic) CKD (chronic kidney disease) (Chronic) History of MRSA infection (Chronic) Osteomyelitis of left foot (Chronic) Hypertension (Chronic) Peripheral arterial disease (Chronic) Type 2 diabetes mellitus (Chronic) Rheumatoid arthritis (Chronic) Allergies/Adverse Reactions: Allergies adhesive Allergy (Verified 12/05/17 18:04) Unknown red skin, uses paper tape and is okay with this atorvastatin calcium [From Lipitor] Allergy (Verified 12/05/17 18:04) Unknown joint pain bacitracin [From Neosporin ([id number])] Allergy (Verified 12/05/17 18:04) Unknown rash bacitracin zinc [From Neosporin ([id number])] Allergy (Verified 12/05/17 18:04) Unknown rash fenofibrate nanocrystallized [From Tricor] Allergy (Verified 12/05/17 18:04) Unknown upset gi or muscle pain fenofibrate,micronized [From Tricor] Allergy (Verified 12/05/17 18:04) Unknown flurbiprofen Allergy (Verified 12/05/17 18:04) Unknown upset stomach gemfibrozil Allergy (Verified 12/05/17 18:04) Unknown upset stomach glipizide [From Glucotrol] Allergy (Verified 12/05/17 18:04) Unknown dizzy, upset gi metronidazole Allergy (Verified 12/05/17 18:04) ALLERGY neomycin sulfate [From Neosporin ([id number])] Allergy (Verified 12/05/17 18:04) Unknown rash polymyxin B [From Neosporin ([id number])] Allergy (Verified 12/05/17 18:04) Unknown rash prednisolone acetate, micronized Allergy (Verified 12/05/17 18:04) ALLERGY simvastatin Allergy (Verified 12/05/17 18:04) ALLERGY tramadol [From Ultram] Allergy (Verified 12/05/17 18:04) ALLERGY pravastatin Adverse Reaction (Verified 12/05/17 18:04) Other MUSCLE PAIN Home Medications: Ambulatory Orders Medication Instructions Recorded Insulin Glargine [Lantus SoloStar 10 - 12 units SC QHS 08/26/15 Pen] Metformin HCl [Glucophage] 500 mg PO TIDCM 08/26/15 glyBURIDE [Micronase] 5 mg PO DAILY@0800 08/26/15 Ascorbic Acid [Vitamin C] 500 mg PO DAILY 12/09/16 Atenolol [Tenormin (beta charlie)] 50 mg PO BID 12/09/16 Cholecalciferol (Vitamin D3) 1,000 unit PO DAILY 12/09/16 [Vitamin D3] Cyanocobalamin (Vitamin B-12) 1,000 mcg PO DAILY 12/09/16 [Vitamin B-12] Multivitamin [Multiple Vitamins] 1 ea PO DAILY 12/09/16 [place]-3 Fatty Acids/Fish Oil 1 cap PO BID 12/09/16 [[place] 3 Fish Oil Softgel] Furosemide [Lasix] 20 mg PO QODAY 12/25/16 Acetaminophen [Tylenol] 1,000 mg PO Q8H PRN PRN 06/10/17 Aspirin 81 mg PO DAILY 06/11/17 Amlodipine [Norvasc] 10 mg PO DAILY #30 tab 06/13/17 Lisinopril 20 mg PO DAILY 12/05/17 - Social History Tobacco Use: non-smoker Vital Signs Temp Pulse Resp BP Pulse Ox 97.8 F 79 18 163/54 H 95 12/10/17 09:19 18 09:19 18 09:19 12/10/17 09:19 12/10/17 09:19 Oxygen Flow Rate (L/min) 1 Oxygen Delivery Method Nasal Cannula Weight: 76.385 kg Body Mass Index (BMI) 28.9 Microbiology Past 72 Hours 09/15/18 01:16 Blood Culture - Preliminary Blood Culture (Wb) - Anticubital Right No growth in 48 hours. Laboratory Tests Past 24 Hrs 12/09/17 12/09/17 12/10/17 05:30 16:31 05:05 WBC 18.5 H RBC 3.67 L Hgb 11.2 L Hct 32.6 L MCV 88.8 MCH 30.5 MCHC 34.4 RDW 13.7 RDW Differential 42.6 Plt Count 206 MPV 10.6 Immature Gran % (Auto) 1.500 H Neut % (Auto) 75.0 H Lymph % (Auto) 10.3 L [place] % (Auto) 12.2 H Eos % (Auto) 0.8 Baso % (Auto) 0.2 Absolute Neuts (auto) 13.9 H Absolute Lymphs (auto) 1.91 Total Counted Not Reportable Diff Path Review Reviewed July Total Bilirubin Direct Bilirubin AST ALT Alkaline Phosphatase C-React Prot Ext Range B-Natriuretic Peptide 754.6 H Total Protein Albumin Globulin 12/10/17 05:05 WBC RBC Hgb Hct MCV MCH MCHC RDW RDW Differential Plt Count MPV Immature Gran % (Auto) Neut % (Auto) Lymph % (Auto) [place] % (Auto) Eos % (Auto) Baso % (Auto) Absolute Neuts (auto) Absolute Lymphs (auto) Total Counted Diff Path Review Total Bilirubin 1.30 H Direct Bilirubin 0.48 H AST 42 H ALT 53 Alkaline Phosphatase 140 H C-React Prot Ext Range 226.00 H B-Natriuretic Peptide Total Protein 5.9 L Albumin 2.0 L Globulin 3.9 - Other Studies Radiology: [] reviewed Other Studies: [] Route of nutrition/ use of supplements: [] Nutritional Intake: [] IV Site: [] Mosher Catheter: [] - Physical Exam General: Alert, Oriented x3, Cooperative, No apparent distress HEENT: Atraumatic, PERRLA, EOMI Neck: Supple, No Nodes Lungs: Clear to auscultation, Normal air movement Cardiovascular: Regular rate, Regular Rhythm, Murmur Abdomen: Soft, Non Tender, Non-Distended Extremities: No edema Skin: No rashes IV Site: Peripheral, without redness Musculoskeletal: No Tenderness to Palpation of Joints or Extremities Neurological: Cranial nerves II-XII grossly intact - Assessment/Plan Antibiotics: [] Assessment/Plan: [] Active and Suspected Problems (Last Reviewed 12/06/17 @ 03:31 by Wilder Lee MD) Infectious colitis (Acute) acute gastroenteritis - improved off of abx. No sign of abscess or colitis on CTs. Mild elevated LFTs, improving. Surgery following. Suspect viral cause. Wbc improving. Will follow, thank you.
[2017-12-10 11:35] LABS: Bedside Glucose 242 mg/dL (70-110)
--- NOTE | 2017-12-10 11:35 | CON.PCM_ITS ---
Problem List (1) Infectious colitis Status: Acute Reason for Consult: n/v Consulted by: Dr. Pagan History of Present Illness: The patient is a 76 year old F with recent hand infection who presented 12/05 to ED with acute onset n/v and lower abd cramping pain, no fever or chills. Multiple episodes of emesis. No sick contacts. Some clear sputum. No myalgias. Came to ED, CT done, started on ertapenem then cefotetan for ? colitis. Abx stopped 12/08, feeling better, abd mildly sore still from prior emesis. No issues with hands. Full ROS performed and neg except as noted above. - Medical History Past Medical History (Chronic Problems): Chronic Problems (Last Reviewed 12/06/17 @ 03:31 by Wilder Lee MD) CKD (chronic kidney disease), stage III (Chronic) CAD (coronary artery disease) (Chronic) Osteoarthritis (Chronic) CKD (chronic kidney disease) (Chronic) History of MRSA infection (Chronic) Osteomyelitis of left foot (Chronic) Hypertension (Chronic) Peripheral arterial disease (Chronic) Type 2 diabetes mellitus (Chronic) Rheumatoid arthritis (Chronic) Allergies/Adverse Reactions: Allergies adhesive Allergy (Verified 12/05/17 18:04) Unknown red skin, uses paper tape and is okay with this atorvastatin calcium [From Lipitor] Allergy (Verified 12/05/17 18:04) Unknown joint pain bacitracin [From Neosporin ([id number])] Allergy (Verified 12/05/17 18:04) Unknown rash bacitracin zinc [From Neosporin ([id number])] Allergy (Verified 12/05/17 18: 04) Unknown rash fenofibrate nanocrystallized [From Tricor] Allergy (Verified 12/05/17 18:04) Unknown upset gi or muscle pain fenofibrate,micronized [From Tricor] Allergy (Verified 12/05/17 18:04) Unknown flurbiprofen Allergy (Verified 12/05/17 18:04) Unknown upset stomach gemfibrozil Allergy (Verified 12/05/17 18:04) Unknown upset stomach glipizide [From Glucotrol] Allergy (Verified 12/05/17 18:04) Unknown dizzy, upset gi metronidazole Allergy (Verified 12/05/17 18:04) ALLERGY neomycin sulfate [From Neosporin ([id number]-hgj-gyqit)] Allergy (Verified 12/05/17 18: 04) Unknown rash polymyxin B [From Neosporin (gjw-gnc-[id number])] Allergy (Verified 12/05/17 18:04) Unknown rash prednisolone acetate, micronized Allergy (Verified 12/05/17 18:04) ALLERGY simvastatin Allergy (Verified 12/05/17 18:04) ALLERGY tramadol [From Ultram] Allergy (Verified 12/05/17 18:04) ALLERGY pravastatin Adverse Reaction (Verified 12/05/17 18:04) Other MUSCLE PAIN Home Medications: Ambulatory Orders Medication Instructions Recorded Insulin Glargine [Lantus SoloStar 10 - 12 units SC QHS 08/26/15 Pen] Metformin HCl [Glucophage] 500 mg PO TIDCM 08/26/15 glyBURIDE [Micronase] 5 mg PO DAILY@0800 08/26/15 Ascorbic Acid [Vitamin C] 500 mg PO DAILY 12/09/16 Atenolol [Tenormin (beta charlie)] 50 mg PO BID 12/09/16 Cholecalciferol (Vitamin D3) 1,000 unit PO DAILY 12/09/16 [Vitamin D3] Cyanocobalamin (Vitamin B-12) 1,000 mcg PO DAILY 12/09/16 [Vitamin B-12] Multivitamin [Multiple Vitamins] 1 ea PO DAILY 12/09/16 [place]-3 Fatty Acids/Fish Oil 1 cap PO BID 12/09/16 [[place] 3 Fish Oil Softgel] Furosemide [Lasix] 20 mg PO QODAY 12/25/16 Acetaminophen [Tylenol] 1,000 mg PO Q8H PRN PRN 06/10/17 Aspirin 81 mg PO DAILY 06/11/17 Amlodipine [Norvasc] 10 mg PO DAILY #30 tab 06/13/17 Lisinopril 20 mg PO DAILY 12/05/17 - Social History Tobacco Use: non-smoker Vital Signs Temp Pulse Resp BP Pulse Ox 97.8 F 79 18 163/54 H 95 12/10/17 09:19 18 09:19 18 09:19 12/10/17 09:19 12/10/17 09:19 Oxygen Flow Rate (L/min) 1 Oxygen Delivery Method Nasal Cannula Weight: 76.385 kg Body Mass Index (BMI) 28.9 Microbiology Past 72 Hours 09/15/18 01:16 Blood Culture - Preliminary Blood Culture (Wb) - Anticubital Right No growth in 48 hours. Laboratory Tests Past 24 Hrs 12/09/17 12/09/17 12/10/17 05:30 16:31 05:05 WBC 18.5 H RBC 3.67 L Hgb 11.2 L Hct 32.6 L MCV 88.8 MCH 30.5 MCHC 34.4 RDW 13.7 RDW Differential 42.6 Plt Count 206 MPV 10.6 Immature Gran % (Auto) 1.500 H Neut % (Auto) 75.0 H Lymph % (Auto) 10.3 L [place] % (Auto) 12.2 H Eos % (Auto) 0.8 Baso % (Auto) 0.2 Absolute Neuts (auto) 13.9 H Absolute Lymphs (auto) 1.91 Total Counted Not Reportable Diff Path Review Reviewed July Total Bilirubin Direct Bilirubin AST ALT Alkaline Phosphatase C-React Prot Ext Range B-Natriuretic Peptide 754.6 H Total Protein Albumin Globulin 12/10/17 05:05 WBC RBC Hgb Hct MCV MCH MCHC RDW RDW Differential Plt Count MPV Immature Gran % (Auto) Neut % (Auto) Lymph % (Auto) At[place] % (Auto) Eos % (Auto) Baso % (Auto) Absolute Neuts (auto) Absolute Lymphs (auto) Total Counted Diff Path Review Total Bilirubin 1.30 H Direct Bilirubin 0.48 H AST 42 H ALT 53 Alkaline Phosphatase 140 H C-React Prot Ext Range 226.00 H B-Natriuretic Peptide Total Protein 5.9 L Albumin 2.0 L Globulin 3.9 - Other Studies Radiology: [] reviewed Other Studies: [] Route of nutrition/ use of supplements: [] Nutritional Intake: [] IV Site: [] Mosher Catheter: [] - Physical Exam General: Alert, Oriented x3, Cooperative, No apparent distress HEENT: Atraumatic, PERRLA, EOMI Neck: Supple, No Nodes Lungs: Clear to auscultation, Normal air movement Cardiovascular: Regular rate, Regular Rhythm, Murmur Abdomen: Soft, Non Tender, Non-Distended Extremities: No edema Skin: No rashes IV Site: Peripheral, without redness Musculoskeletal: No Tenderness to Palpation of Joints or Extremities Neurological: Cranial nerves II-XII grossly intact - Assessment/Plan Antibiotics: [] Assessment/Plan: [] Active and Suspected Problems (Last Reviewed 12/06/17 @ 03:31 by Wilder Lee MD) Infectious colitis (Acute) acute gastroenteritis - improved off of abx. No sign of abscess or colitis on CTs. Mild elevated LFTs, improving. Surgery following. Suspect viral cause. Wbc improving. Will follow, thank you.
[2017-12-10] MEDS: Furosemide 40 MG/4 ML Vial IV (12:57)
[2017-12-10] MEDS: 0.9% NaCl Peripheral Flush Adult/Peds IV (12:57)
[2017-12-10 13:51] LABS: Pathologist Review Reviewed
--- NOTE | 2017-12-10 14:38 | RAD_ITS ---
STUDY: X-RAY CHEST REASON FOR EXAM: Female, 76 years old. Shortness of breath, dyspnea TECHNIQUE: Single frontal view COMPARISON: December 09, 2017 FINDINGS: Stable sternotomy wires. The lungs are expanded. Mild axial prominence bilaterally. Mildly prominent size heart. Normal mediastinum and pavel. Slightly prominent central pulmonary arteries. Normal visualized aortic arch and descending thoracic aorta. Degenerative changes of the visualized thoracic spine. Normal visualized ribs, clavicles, and shoulders. There is no demonstrated abnormality of the visualized soft tissue structures of the upper abdomen. RAD/Chest 1 View (Portable) IMPRESSION: Mild cardiomegaly and central pulmonary vascular prominence. Interstitial prominence bilaterally. No significant interval changes. Electronically Signed: Jerzy Loera DO at 18:24 EDT Tel [phone], Service support ,
--- NOTE | 2017-12-10 18:33 | PN_ITS ---
Patient Problems: Active and Suspected Problems (Last Reviewed 12/06/17 @ 03:31 by Wilder Lee MD) Infectious colitis (Acute) Subjective: Patient seen and examined today, her white blood cell count has dropped to 18, 500 today. Infectious diseases saw the patient does not feel that she has an infectious process that requires antibiotic coverage. They feel that the patient probably had gastroenteritis. Patient's echocardiogram today showed evidence of pulmonary hypertension with preserved ejection fraction, I gave the patient another dose of IV Lasix today and I have placed her on Lasix 40 mg daily starting tomorrow. - Physical Exam General: Alert, Oriented x3, Cooperative, No apparent distress, Well developed HEENT: Atraumatic, PERRLA, EOMI, Normocephalic Oral: Moist Mucosa Neck: Supple, No Nuchal Rigidity, Trachea Midline, Thyroid Normal Size and Texture Lungs: Normal air movement, Diminished, Rales - Scattered inspiratory rales are noted at the bases bilaterally Cardiovascular: Regular rate, Regular Rhythm, Normal S1, Normal S2, No murmurs, No Ectopic Activity, PMI Normal, No rub noted, No Gallop Abdomen: Bowel Sounds Present, Soft, Non Tender, Non-Distended Extremities: No clubbing, No cyanosis, No edema, Capillary Refill Less than 3 Seconds Skin: No rashes, No breakdown Musculoskeletal: No Tenderness to Palpation of Joints or Extremities Neurological: Cranial nerves II-XII grossly intact, Neuro grossly intact, Sensory exam intact to light touch and pain, Coordination normal Psych/Mental Status: Normal Affect, Appropriate, Alert and oriented to time, place, person, mood and affect Vital Signs Temp Pulse Resp BP Pulse Ox 98.8 F 68 20 H 151/98 H 93 12/10/17 14:43 12/10/17 14:43 12/10/17 14:43 12/10/17 14:43 12/10/17 14:43 Oxygen Flow Rate (L/min) [ 2 AMBULATION with Oxygen] Oxygen Flow Rate (L/min) 1 Oxygen Delivery Method Room Air Weight: 76.385 kg Body Mass Index (BMI) 28.9 Intake and Output for Last 24 Hours 12/08/17 12/09/17 12/10/17 23:59 23:59 23:59 Intake Total 1199 / 1199 2430 / 2430 950 / 950 Output Total 2200 / 2200 1200 / 1200 2450 / 2450 Balance -1001 / -1001 1230 / 1230 -1500 / -1500 Microbiology Past 72 Hours 12/06/17 01:16 Blood Culture - Preliminary Blood Culture (Wb) - Anticubital Right No growth in 48 hours. Laboratory Tests Past 24 Hrs 12/10/17 12/10/17 05:05 05:05 WBC 18.5 H RBC 3.67 L Hgb 11.2 L Hct 32.6 L MCV 88.8 MCH 30.5 MCHC 34.4 RDW 13.7 RDW Differential 42.6 Plt Count 206 MPV 10.6 Immature Gran % (Auto) 1.500 H Neut % (Auto) 75.0 H Lymph % (Auto) 10.3 L [place] % (Auto) 12.2 H Eos % (Auto) 0.8 Baso % (Auto) 0.2 Absolute Neuts (auto) 13.9 H Absolute Lymphs (auto) 1.91 Total Counted Not Reportable Diff Path Review Reviewed Total Bilirubin 1.30 H Direct Bilirubin 0.48 H AST 42 H ALT 53 Alkaline Phosphatase 140 H C-React Prot Ext Range 226.00 H Total Protein 5.9 L Albumin 2.0 L Globulin 3.9 POC Glucose 12/10/17 12/10/17 12/09/17 11:26 06:44 21:05 POC Glucose 242 H 128 H 185 H Medical Necessity - Tobacco Use Smoking Status: Never smoker Assessment/Plan All Active Problems (Last Reviewed 12/06/17 @ 03:31 by Wilder Lee MD) Infectious colitis (Acute) Acute osteomyelitis of right hand including fingers (Acute) Diabetes with skin ulcer (Acute) Cellulitis of right index finger (Acute) #1 leukocytosis-secondary to gastroenteritis, resolving, CBC will be repeated tomorrow #2 nausea and vomiting-possibly secondary to viral gastroenteritis, this has resolved at this point #3 acute congestive heart [id number] will be placed on Lasix starting tomorrow, an additional dose of IV Lasix was given today #4 type 2 diabetes #5 hypertension #6 hypoxia-secondary to acute diastolic congestive heart failure, this appears to be resolving at this time #7 pulmonary hypertension-patient will be placed on oral Lasix starting tomorrow I do not believe patient had evidence of pancreatitis during this hospital admission. Code Visit Inpatient E&M: 26305 Subs Hosp L2
[2017-12-10 19:01] LABS: Bedside Glucose 175 mg/dL (70-110)
[2017-12-10 22:15] LABS: Bedside Glucose 233 mg/dL (70-110)
[2017-12-11 01:16] LABS: Bedside Glucose 152 mg/dL (70-110)
[2017-12-11 03:20] VITALS: BP 138/52; PULSE 53; RESP 20; TEMP 37.3; O2SAT 96
[2017-12-11 06:45] LABS: Bedside Glucose 143 mg/dL (70-110)
[2017-12-11 07:11] LABS: Hematocrit 32.3 % (37-47); Hemoglobin 11.1 g/dl (12.0-15.0); Mean Corp Hgb Conc 34.4 g/gl (32-36); Mean Corpuscular Hgb 30.2 pg (27.0-32.0); Mean Platelet Vol. 10.3 fl (6.2-12.0); Platelet Count 229 K/mm3 (150-450); RBC Distribution Width CV 13.5 % (11.6-14.6); RBC Distribution Width SD 42.5 fl (35.1-43.9); Red Blood Count 3.67 M/mm3 (4.2-5.4); White Blood Count 14.9 K/mm3 (4.4-11.0)
[2017-12-11 07:14] LABS: Differential Indicated MANUAL DIFF; POSITIVE COUNT YES; POSITIVE DIFFERENTIAL YES; POSITIVE MORPHOLOGY YES
[2017-12-11 07:26] LABS: Anion Gap 10 (5-15); BUN 22 mg/dL (7-18); BUN/Creat Ratio 20.8 RATIO (10-20); Calcium,Total 8.6 mg/dL (8.5-10.1); Chloride 102 mmol/L (98-107); Creatinine, Serum 1.06 mg/dL (0.55-1.02); EST Glomerular Filtration Rate 53 mL/min (>60); Est Glom Filt Rate - Afr Amer 65 mL/min (>60); Estimated Creatinine Clearance 38.99 ml/min; Glucose 138 mg/dL (74-106); Potassium 3.7 mmol/L (3.5-5.1); Sodium Level 136 mmol/L (136-145)
[2017-12-11 07:56] LABS: Eosinophil 1 % (0-5); Lymphocyte 13 % (19-41); Monocyte 17 % (0-10); Neutrophil-Segmented 69 % (47-70); Platelet Estimate ADEQUATE (ADEQ); Total Cells Counted 100 (MANUAL DIFF)
[2017-12-11 07:57] LABS: Red Cell Morphology NORM C+C NORMAL (NORM C&C)
[2017-12-11 07:58] LABS: Absolute Lymphocyte Count 1.94 X10^3/ul (0.83-4.51); Absolute Neutrophil Count 10.3 X10^3/uL (2.0-7.7); Lymphocyte # 1.94 X10^3/ul (4.0)
[2017-12-11 09:31] VITALS: O2SAT 84; O2SAT 92; O2SAT 96
--- NOTE | 2017-12-11 09:35 | PN.SURG_ITS ---
Patient Problems: Active and Suspected Problems (Last Reviewed 12/06/17 @ 03:31 by Wilder Lee MD) Infectious colitis (Acute) Subjective: Patient denies abdominal pain, tolerating regular diet denies any nausea or vomiting - Physical Exam General: Alert, Oriented x3, Cooperative, No apparent distress Abdomen: Soft, Non Tender, Non-Distended, Hernia - Umbilical hernia easily reducible Vital Signs Temp Pulse Resp BP Pulse Ox 99.2 F H 53 L 20 H 138/52 H 96 12/11/17 03:20 12/11/17 03:20 12/11/17 03:20 12/11/17 03:20 12/11/17 03:20 Oxygen Flow Rate (L/min) [ 2 AMBULATION with Oxygen] Oxygen Flow Rate (L/min) 3 Oxygen Delivery Method Nasal Cannula Weight: 168 lb 6.401 oz Body Mass Index (BMI) 28.9 Intake and Output for Last 24 Hours 12/09/17 12/10/17 12/11/17 23:59 23:59 23:59 Intake Total 2430 / 2430 1050 / 1050 50 / 50 Output Total 1200 / 1200 2750 / 2750 550 / 550 Balance 1230 / 1230 -1700 / -1700 -500 / -500 Microbiology Past 72 Hours 12/06/17 01:16 Blood Culture - Final Blood Culture (Wb) - Anticubital Right No growth in 5 days. Laboratory Tests Past 24 Hrs 12/10/17 12/11/17 12/11/17 05:05 06:25 06:25 WBC 14.9 H RBC 3.67 L Hgb 11.1 L Hct 32.3 L MCV 88.0 MCH 30.2 MCHC 34.4 RDW 13.5 RDW Differential 42.5 Plt Count 229 MPV 10.3 Neut % (Auto) Not Reportable Absolute Neuts (auto) 10.3 H Absolute Lymphs (auto) 1.94 Total Counted 100 Neutrophils % (Manual) 69 Lymphocytes % (Manual) 13 L Monocytes % (Manual) 17 H Eosinophils % (Manual) 1 Diff Path Review Reviewed July foll Platelet Estimate ADEQUATE RBC Morphology NORM C+C Sodium 136 Potassium 3.7 Chloride 102 Carbon Dioxide 24.0 Anion Gap 10 BUN 22 H Creatinine 1.06 H Estim Creat Clear Calc 38.99 Est GFR (MDRD) Af Amer 65 Est GFR (MDRD) Non-Af 53 L BUN/Creatinine Ratio 20.8 H Glucose 138 H Calcium 8.6 Total Bilirubin Direct Bilirubin AST ALT Alkaline Phosphatase Total Protein Albumin 12/11/17 06:25 WBC RBC Hgb Hct MCV MCH MCHC RDW RDW Differential Plt Count MPV Neut % (Auto) Absolute Neuts (auto) Absolute Lymphs (auto) Total Counted Neutrophils % (Manual) Lymphocytes % (Manual) Monocytes % (Manual) Eosinophils % (Manual) Diff Path Review Platelet Estimate RBC Morphology Sodium Potassium Chloride Carbon Dioxide Anion Gap BUN Creatinine Estim Creat Clear Calc Est GFR (MDRD) Af Amer Est GFR (MDRD) Non-Af BUN/Creatinine Ratio Glucose Calcium Total Bilirubin Pending Direct Bilirubin Pending AST Pending ALT Pending Alkaline Phosphatase Pending Total Protein Pending Albumin Pending POC Glucose 12/11/17 12/11/17 12/10/17 06:42 01:11 22:05 POC Glucose 143 H 152 H 233 H 12/10/17 12/10/17 16:55 11:26 POC Glucose 175 H 242 H Medical Necessity - Tobacco Use Smoking Status: Never smoker Assessment/Plan All Active Problems (Last Reviewed 12/06/17 @ 03:31 by Wilder Lee MD) Infectious colitis (Acute) Acute osteomyelitis of right hand including fingers (Acute) Diabetes with skin ulcer (Acute) Cellulitis of right index finger (Acute) 76-year-old female with leukocytosis, admitted for nausea and vomiting 1. Patient tolerating regular diet. ID consulted believes this is due to a viral gastroenteritis which has resolved. Patient's leukocytosis also resolving down to 14 today. We will recheck liver functions; however no plans for any surgical intervention. Tammie Orosco M.D. Pager: [phone] [facility] [address] [place] [address], [facility] [address] [place] [address] Office: [phone] Code Visit Inpatient E&M: 47979 Subs Hosp L1
[2017-12-11 09:40] LABS: AST(SGOT) 36 U/L (15-37); Alanine Aminotransfer ALT/SGPT 44 U/L (13-56); Alkaline Phosphatase 149 U/L (45-117); Bilirubin, Direct 0.46 mg/dL (0.00-0.30); Globulin 3.9 g/dL (2.2-4.2); Protein, Total 5.9 g/dL (6.4-8.2)
[2017-12-11 09:43] VITALS: PULSE 63
[2017-12-11 09:49] VITALS: BP 141/40; PULSE 67; RESP 20; TEMP 36.7; O2SAT 96
[2017-12-11] MEDS: Furosemide 40 MG Tablet PO (09:51)
[2017-12-11] MEDS: Enoxaparin 40 MG/0.4 ML Syringe SC (09:51)
[2017-12-11] MEDS: Atenolol 50 MG Tablet PO (09:51)
[2017-12-11] MEDS: amLODIPine 10 MG Tablet PO (09:51)
[2017-12-11] MEDS: Lisinopril 20 MG Tablet PO (09:52)
--- NOTE | 2017-12-11 11:08 | PCM.PN.ID ---
Patient Problems: Active and Suspected Problems (Last Reviewed 12/06/17 @ 03:31 by Wilder Lee MD) Infectious colitis (Acute) Subjective: Feeling better, no n/v/d or abd pain. No fever. - Physical Exam General: Alert, Cooperative, No apparent distress Lungs: Clear to auscultation, Normal air movement Cardiovascular: Regular rate, Regular Rhythm Abdomen: Soft, Non Tender, Non-Distended Skin: No rashes Vital Signs Temp Pulse Resp BP Pulse Ox 98.0 F 67 20 H 141/40 H 96 12/11/17 09:49 12/11/17 09:49 12/11/17 09:49 12/11/17 09:49 12/11/17 09:49 Oxygen Flow Rate (L/min) [ 2 AMBULATION with Oxygen] Oxygen Flow Rate (L/min) 2 Oxygen Delivery Method Nasal Cannula Weight: 76.385 kg Body Mass Index (BMI) 28.9 Intake and Output for Last 24 Hours 12/09/17 12/10/17 12/11/17 23:59 23:59 23:59 Intake Total 2430 / 2430 1050 / 1050 50 / 50 Output Total 1200 / 1200 2750 / 2750 550 / 550 Balance 1230 / 1230 -1700 / -1700 -500 / -500 Microbiology Past 72 Hours 12/06/17 01:16 Blood Culture - Final Blood Culture (Wb) - Anticubital Right No growth in 5 days. Laboratory Tests Past 24 Hrs 12/10/17 12/11/17 12/11/17 05:05 06:25 06:25 WBC 14.9 H RBC 3.67 L Hgb 11.1 L Hct 32.3 L MCV 88.0 MCH 30.2 MCHC 34.4 RDW 13.5 RDW Differential 42.5 Plt Count 229 MPV 10.3 Neut % (Auto) Not Reportable Absolute Neuts (auto) 10.3 H Absolute Lymphs (auto) 1.94 Total Counted 100 Neutrophils % (Manual) 69 Lymphocytes % (Manual) 13 L Monocytes % (Manual) 17 H Eosinophils % (Manual) 1 Diff Path Review Reviewed July foll Platelet Estimate ADEQUATE RBC Morphology NORM C+C Sodium 136 Potassium 3.7 Chloride 102 Carbon Dioxide 24.0 Anion Gap 10 BUN 22 H Creatinine 1.06 H Estim Creat Clear Calc 38.99 Est GFR (MDRD) Af Amer 65 Est GFR (MDRD) Non-Af 53 L BUN/Creatinine Ratio 20.8 H Glucose 138 H Calcium 8.6 Total Bilirubin Direct Bilirubin AST ALT Alkaline Phosphatase Total Protein Albumin Globulin 12/11/17 06:25 WBC RBC Hgb Hct MCV MCH MCHC RDW RDW Differential Plt Count MPV Neut % (Auto) Absolute Neuts (auto) Absolute Lymphs (auto) Total Counted Neutrophils % (Manual) Lymphocytes % (Manual) Monocytes % (Manual) Eosinophils % (Manual) Diff Path Review Platelet Estimate RBC Morphology Sodium Potassium Chloride Carbon Dioxide Anion Gap BUN Creatinine Estim Creat Clear Calc Est GFR (MDRD) Af Amer Est GFR (MDRD) Non-Af BUN/Creatinine Ratio Glucose Calcium Total Bilirubin 1.30 H Direct Bilirubin 0.46 H AST 36 ALT 44 Alkaline Phosphatase 149 H Total Protein 5.9 L Albumin 2.0 L Globulin 3.9 POC Glucose 12/11/17 12/11/17 12/10/17 06:42 01:11 22:05 POC Glucose 143 H 152 H 233 H 12/10/17 12/10/17 16:55 11:26 POC Glucose 175 H 242 H Medical Necessity - Tobacco Use Smoking Status: Never smoker Route of nutrition/ use of supplements: [] Nutritional Intake: [] IV Site: [] Mosher Catheter: [] - Assessment/Plan Antibiotics: [] Assessment/Plan: [] Active and Suspected Problems (Last Reviewed 12/06/17 @ 03:31 by Wilder Lee MD) Infectious colitis (Acute) acute gastroenteritis - improved off of abx. No sign of abscess or colitis on CTs. Mild elevated LFTs, improving. Surgery following. Suspect viral cause. Wbc improving. Ok for d/c home. Will follow
[2017-12-11] MEDS: Insulin Lispro 100 UNIT/ML INSULN.PEN SQ (11:47)
[2017-12-11 11:56] LABS: Bedside Glucose 291 mg/dL (70-110)
[2017-12-11 12:36] LABS: Pathologist Review Reviewed
--- NOTE | 2017-12-11 13:40 | CASEMGMT ---
Addendum entered by Marcelina Burrows 12/11/17 13:52: Phone call to pt's daughter, Kaitlyn Walton, per pt's request. Kaitlyn made aware that [facility] [place] needs called for payment set-up and also a time will need to be arranged with them for oxygen set-up at home. Original Note: Walking O2 test completed and pt requiring Oxygen on discharge. Script obtained from Dr Pagan. Pt states does not have a preference of DME company. Pt is [place] and states she does not have electricity @ home. Will require Liquid O2 tanks. [facility] [place] contacted and states they are available to deliver Liquid stationary tank to pt's home today 12/11/17 and will deliver liquid portable tank to pt's room today prior to discharge. O2 script, demographic sheet, Home O2 qualification Documentation all faxed to [facility] [place] @ [phone]. Erica @ [facility] [place] confirmed she did receive the faxes. Pt made aware she is to contact [facility] [place] for payment and to arrange time of oxygen set-up @ home. CM to follow for further discharge planning needs that may arise. Bettina BSN RN CM
[2017-12-11 14:54] VITALS: BP 149/55; PULSE 72; RESP 18; TEMP 36.7; O2SAT 93
--- NOTE | 2017-12-11 15:15 | PCM.DC ---
- Discharge Diagnoses Current Active Problems: Current Active and Chronic Problems (Last Reviewed 12/06/17 @ 03:31 by Wilder Lee MD) Infectious colitis (Acute) You will use the following diet at home:: Calorie/Carbohydrate Controlled (specify 1200, 1400, etc) - 1800 mandi Your food should be the consistency of: Regular Your liquids should be the consistency of: Regular/Thin Discharge Activity: Return to Normal Activity Weight Bearing Status: Full weight bearing Allergies/Adverse Reactions: Allergies adhesive Allergy (Verified 12/05/17 18:04) Unknown red skin, uses paper tape and is okay with this atorvastatin calcium [From Lipitor] Allergy (Verified 12/05/17 18:04) Unknown joint pain bacitracin [From Neosporin ([id number])] Allergy (Verified 12/05/17 18:04) Unknown rash bacitracin zinc [From Neosporin ([id number])] Allergy (Verified 12/05/17 18:04) Unknown rash fenofibrate nanocrystallized [From Tricor] Allergy (Verified 12/05/17 18:04) Unknown upset gi or muscle pain fenofibrate,micronized [From Tricor] Allergy (Verified 12/05/17 18:04) Unknown flurbiprofen Allergy (Verified 12/05/17 18:04) Unknown upset stomach gemfibrozil Allergy (Verified 12/05/17 18:04) Unknown upset stomach glipizide [From Glucotrol] Allergy (Verified 12/05/17 18:04) Unknown dizzy, upset gi metronidazole Allergy (Verified 12/05/17 18:04) ALLERGY neomycin sulfate [From Neosporin ([id number]-lez-shkyb)] Allergy (Verified 12/05/17 18:04) Unknown rash polymyxin B [From Neosporin ([id number]-[id number]-ejlss)] Allergy (Verified 12/05/17 18:04) Unknown rash prednisolone acetate, micronized Allergy (Verified 12/05/17 18:04) ALLERGY simvastatin Allergy (Verified 12/05/17 18:04) ALLERGY tramadol [From Ultram] Allergy (Verified 12/05/17 18:04) ALLERGY pravastatin Adverse Reaction (Verified 12/05/17 18:04) Other MUSCLE PAIN Medications to take at Discharge Insulin Glargine [Lantus SoloStar Pen] 10 - 12 units SC QHS 08/26/15 Metformin HCl [Glucophage] 500 mg PO TIDCM 08/26/15 glyBURIDE [Micronase] 5 mg PO DAILY@0800 08/26/15 Ascorbic Acid [Vitamin C] 500 mg PO DAILY 12/09/16 Atenolol [Tenormin (beta charlie)] 50 mg PO BID 12/09/16 Cholecalciferol (Vitamin D3) [Vitamin D3] 1,000 unit PO DAILY 12/09/16 Cyanocobalamin (Vitamin B-12) [Vitamin B-12] 1,000 mcg PO DAILY 12/09/16 Multivitamin [Multiple Vitamins] 1 ea PO DAILY 12/09/16 [place]-3 Fatty Acids/Fish Oil [[place] 3 Fish Oil Softgel] 1 cap PO BID 12/09/16 Acetaminophen [Tylenol] 1,000 mg PO Q8H PRN PRN 06/10/17 Aspirin 81 mg PO DAILY 06/11/17 Amlodipine [Norvasc] 10 mg PO DAILY #30 tab 06/13/17 Lisinopril 20 mg PO DAILY 12/05/17 Furosemide [Lasix] 40 mg PO DAILY #30 tab 12/11/17 The following prescriptions were given: Furosemide [Lasix] 40 mg PO DAILY #30 tab Primary Care Physician: Kelsy Mensah MD [Primary Care Provider] - Please follow up with your Primary Care Physician in: in 2-3 weeks Test Results: Test results from this visit will be discussed in further detail at your follow-up appointment, if applicable. Please Follow Up With: Lokesh Gutierrez MD When: in 2 weeks
--- NOTE | 2017-12-11 15:15 | CASEMGMT ---
RN CM NOTE: Pt's daughter, Kaitlyn, here to see pt. Kaitlyn stated she spoke w/[employer], payment was completed, and stated she will be calling [employer] this afternoon/evening to let them know what time pt will be arriving home so they can come out to set up the Home Oxygen tank. Bettina MALONEYN RN CM
--- NOTE | 2017-12-12 17:23 | CASEMGMT ---
FLOR DOMINGO Discharge Follow-up Phone Call: SHAHAB: Dorene Strata: 4 Call Date: 12/12/17 Discharge Date: 12/11/17 Time of Call: 1720 Duration: 3 min Admitting Diagnosis: Acute Colitis FLOR DOMINGO completed follow-up phone call after recent hospitalization. Patient states she is doing somewhat better. Patient states she picked up her prescription without any problems. Patient states she has no questions regarding discharge instruction or follow-up plans. Patient states that her oxygen was delivered with no problems and she has been wearing her oxygen when she sleeping. FLOR DOMINGO reviewed home oxygen qualification testing and patient oxygen level decreased with ambulation. FLOR DOMINGO instructed the patient to make sure she wears her oxygen at 2 lpm while ambulating. Patient voiced understanding.
--- NOTE | 2017-12-14 11:36 | PCM.DC.SUM ---
Discharge Date and Diagnosis Date of Admission: 12/05/17 Date of Discharge: 12/11/17 - Primary Discharge Diagnosis #1 leukocytosis-secondary to gastroenteritis #2 nausea and vomiting-possibly secondary to viral gastroenteritis #3 acute congestive heart failure-diastolic #4 type 2 diabetes #5 hypertension #6 hypoxia-secondary to acute diastolic congestive heart failure #7 pulmonary hypertension I do not believe patient had evidence of pancreatitis during this hospital admission. - Secondary Discharge Diagnosis Chronic Problems (Last Reviewed 12/06/17 @ 03:31 by Wilder Lee MD) CKD (chronic kidney disease), stage III (Chronic) CAD (coronary artery disease) (Chronic) Osteoarthritis (Chronic) CKD (chronic kidney disease) (Chronic) History of MRSA infection (Chronic) Osteomyelitis of left foot (Chronic) Hypertension (Chronic) Peripheral arterial disease (Chronic) Type 2 diabetes mellitus (Chronic) Rheumatoid arthritis (Chronic) Hospital Course and Treatment Operations: None, - - Transmetatarsal amputation of the left great toe Procedures: 2-D Echocardiogram Summary of Care Provided: The patient is a 76 year old F was seen in the emergency room it [facility] with chief complaint of generalized abdominal pain with nausea and vomiting. Workup in the emergency room showed a sodium of 132, BUN of 27, creatinine of 1.36, CT of the abdomen and pelvis was done with IV contrast that showed only colonic diverticulosis and mild ascites with an umbilical hernia. Patient was treated with IV fluids in the emergency room and antiemetics. She was admitted to [place] [address], it was felt by the admitting hospitalist that the patient could have colitis and she was placed on IV antibiotics. This examiner did not think she had colitis and antibiotics were stopped and her white count was followed. Patient did have some hypoxia, it was felt that she had vigorous fluid administration during her hospitalization and that caused some fluid overload. Echocardiogram was obtained which showed a normal EF and it was felt that the patient had a element of diastolic congestive heart failure. She was treated with IV Lasix and improved. She was seen in consultation by infectious diseases who felt that the patient probably had a viral gastroenteritis, patient's white count trended down during her hospitalization. At the time of her discharge on 12/11/17, patient's pulse ox at rest was 92% but dropped to 88% at ambulation. It was felt she needed oxygen at 2 L/min while ambulating, she was expected to use the oxygen during ambulation and was able to use the oxygen. On 12/11/17, patient was seen and examined and felt to be in stable condition for discharge home Discharge Activity: Return to Normal Activity Weight Bearing Status: Full weight bearing Home Medications: Medications to take at Discharge Insulin Glargine [Lantus SoloStar Pen] 10 - 12 units SC QHS 08/26/15 Metformin HCl [Glucophage] 500 mg PO TIDCM 08/26/15 glyBURIDE [Micronase] 5 mg PO DAILY@0800 08/26/15 Ascorbic Acid [Vitamin C] 500 mg PO DAILY 12/09/16 Atenolol [Tenormin (beta charlie)] 50 mg PO BID 12/09/16 Cholecalciferol (Vitamin D3) [Vitamin D3] 1,000 unit PO DAILY 12/09/16 Cyanocobalamin (Vitamin B-12) [Vitamin B-12] 1,000 mcg PO DAILY 12/09/16 Multivitamin [Multiple Vitamins] 1 ea PO DAILY 12/09/16 [place]-3 Fatty Acids/Fish Oil [[place] 3 Fish Oil Softgel] 1 cap PO BID 12/09/16 Acetaminophen [Tylenol] 1,000 mg PO Q8H PRN PRN 06/10/17 Aspirin 81 mg PO DAILY 06/11/17 Amlodipine [Norvasc] 10 mg PO DAILY #30 tab 06/13/17 Lisinopril 20 mg PO DAILY 12/05/17 Furosemide [Lasix] 40 mg PO DAILY #30 tab 12/11/17 Following Prescrptions Were Given to Patient: Furosemide [Lasix] 40 mg PO DAILY #30 tab Primary Care Physician: Kelsy Mensah MD [Primary Care Provider] - Please follow up with your Primary Care Physician in: in 2-3 weeks Please Follow Up With: Lokesh Gutierrze MD When: in 2 weeks Disposition: Home Minutes spent on discharge:: 32 Patient Condition:: Stable Medical Necessity - Tobacco Use Smoking Status: Never smoker Meaningful Use Info Meaningful Use Diagnoses (Choose all that apply): CHF - CHF TRACY/ARB ordered at discharge?: Yes Documented LVEF (%): 65 Code Visit Inpatient E&M: 88885 Disch Hosp
--- NOTE | 2017-12-14 11:40 | DS.PCM_ITS ---
Discharge Date and Diagnosis Date of Admission: 12/05/17 Date of Discharge: 12/11/17 - Primary Discharge Diagnosis #1 leukocytosis-secondary to gastroenteritis #2 nausea and vomiting-possibly secondary to viral gastroenteritis #3 acute congestive heart failure-diastolic #4 type 2 diabetes #5 hypertension #6 hypoxia-secondary to acute diastolic congestive heart failure #7 pulmonary hypertension I do not believe patient had evidence of pancreatitis during this hospital admission. 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 Workup in the emergency room showed a sodium of 132, BUN of 27, creatinine of 1.36, CT of the abdomen and pelvis was done with IV contrast that showed only colonic diverticulosis and mild ascites with an umbilical hernia. Patient was treated with IV fluids in the emergency room and antiemetics. She was admitted to [place] [address], it was felt by the admitting hospitalist that the patient could have colitis and she was placed on IV antibiotics. This examiner did not think she had colitis and antibiotics were stopped and her white count was followed. Patient did have some hypoxia, it was felt that she had vigorous fluid administration during her hospitalization and that caused some fluid overload. Echocardiogram was obtained which showed a normal EF and it was felt that the patient had a element of diastolic congestive heart failure. She was treated with IV Lasix and improved. She was seen in consultation by infectious diseases who felt that the patient probably had a viral gastroenteritis, patient's white count trended down during her hospitalization. At the time of her discharge on 12/11/17, patient's pulse ox at rest was 92% but dropped to 88% at ambulation. It was felt she needed oxygen at 2 L/min while ambulating, she was expected to use the oxygen during ambulation and was able to use the oxygen. On 12/11/17, patient was seen and examined and felt to be in stable condition for discharge home Discharge Activity: Return to Normal Activity Weight Bearing Status: Full weight bearing Home Medications: Medications to take at Discharge Insulin Glargine [Lantus SoloStar Pen] 10 - 12 units SC QHS 08/26/15 Metformin HCl [Glucophage] 500 mg PO TIDCM 08/26/15 glyBURIDE [Micronase] 5 mg PO DAILY@0800 08/26/15 Ascorbic Acid [Vitamin C] 500 mg PO DAILY 12/09/16 Atenolol [Tenormin (beta charlie)] 50 mg PO BID 12/09/16 Cholecalciferol (Vitamin D3) [Vitamin D3] 1,000 unit PO DAILY 12/09/16 Cyanocobalamin (Vitamin B-12) [Vitamin B-12] 1,000 mcg PO DAILY 12/09/16 Multivitamin [Multiple Vitamins] 1 ea PO DAILY 12/09/16 [place]-3 Fatty Acids/Fish Oil [[place] 3 Fish Oil Softgel] 1 cap PO BID 12/09/16 Acetaminophen [Tylenol] 1,000 mg PO Q8H PRN PRN 06/10/17 Aspirin 81 mg PO DAILY 06/11/17 Amlodipine [Norvasc] 10 mg PO DAILY #30 tab 06/13/17 Lisinopril 20 mg PO DAILY 12/05/17 Furosemide [Lasix] 40 mg PO DAILY #30 tab 12/11/17 Following Prescrptions Were Given to Patient: Furosemide [Lasix] 40 mg PO DAILY #30 tab Primary Care Physician: Kelsy Mensah MD [Primary Care Provider] - Please follow up with your Primary Care Physician in: in 2-3 weeks Please Follow Up With: Lokesh Gutierrez MD When: in 2 weeks Disposition: Home Minutes spent on discharge:: 32 Patient Condition:: Stable Medical Necessity - Tobacco Use Smoking Status: Never smoker Meaningful Use Info Meaningful Use Diagnoses (Choose all that apply): CHF - CHF TRACY/ARB ordered at discharge?: Yes Documented LVEF (%): 65 Code Visit Inpatient E&M: 75303 Disch Hosp
== END 2017-12-11 17:05 | disposition home or self-care (01) | DRG 391 ==
LOC: ED 18:53 → MS2 23:11
PROVIDERS: Internal Medicine; Surgery; Admitting Provider Hospitalist; Emergency Provider Emergency Medicine; Family Provider Internal Medicine; PCP Internal Medicine; Visit Provider Internal Medicine
DX: A08.4 Viral intestinal infection, unspecified (principal); I50.31 Acute diastolic (congestive) heart failure; I13.0 Hypertensive heart and chronic kidney disease with heart failure and stage 1 through stage 4 chronic kidney disease, or unspecified chronic kidney disease; I27.20 Pulmonary hypertension, unspecified; E11.22 Type 2 diabetes mellitus with diabetic chronic kidney disease; N18.3 Chronic kidney disease, stage 3 (moderate); I25.10 Atherosclerotic heart disease of native coronary artery without angina pectoris; M19.90 Unspecified osteoarthritis, unspecified site; Z86.14 Personal history of Methicillin resistant Staphylococcus aureus infection; M06.9 Rheumatoid arthritis, unspecified; Z79.84 Long term (current) use of oral hypoglycemic drugs; Z95.1 Presence of aortocoronary bypass graft; Z89.412 Acquired absence of left great toe; Z89.421 Acquired absence of other right toe(s); E11.51 Type 2 diabetes mellitus with diabetic peripheral angiopathy without gangrene; I73.9 Peripheral vascular disease, unspecified; R09.02 Hypoxemia
CPT/HCPCS: 36415; 71045; 74174; 74177; 80048; 80053; 80076; 81001; 82150; 82962; 83605; 83690; 83880; 85025; 86140; 87040; 93306; 97162; 97166; 97530; 97802; 99282; J7030; Q9967; A4216; J1940; J2405

== ENCOUNTER → 2017-12-19 17:20 | Outpatient (CLI) | payer OTHER, SELFPAY | PROVIDERS: Referring Provider Podiatrist; Visit Provider Podiatrist | DX: L03.032 Cellulitis of left toe (principal) | CPT/HCPCS: 87070; 87205 ==

== ENCOUNTER 2020-03-01 22:22 | Inpatient (IN) | payer OTHER, SELFPAY ==
[2020-03-01 22:22] VITALS: BP 160/74; PULSE 65; RESP 18; TEMP 36.6; O2SAT 95; O2SAT 96; BMI 27.4
--- NOTE | 2020-03-01 23:39 | ED.VIS.GEN ---
History of Present Illness Chief Complaint: Wound Informant: Patient Onset: Today Narrative: Patient is a history of diabetic neuropathy. She states tonight when she took her socks and shoes off she noted a wound to her lateral right ankle had not previously been noted. She states that she is a hard time healing any wounds and has had osteomyelitis in the past. She reports a temperature of 100.1 tonight. She denies cough or congestion. She denies vomiting or diarrhea. - Past Medical History (1) CAD (coronary artery disease) Status: Chronic (2) Hypertension Status: Chronic (3) Osteoarthritis Status: Chronic (4) Rheumatoid arthritis Status: Chronic (5) Type 2 diabetes mellitus Status: Chronic Past Medical History - Allergies and Home Meds Allergies/Adverse Reactions: Allergies adhesive Allergy (Verified 12/05/17 18:04) Unknown red skin, uses paper tape and is okay with this atorvastatin calcium [From Lipitor] Allergy (Verified 12/05/17 18:04) Unknown joint pain bacitracin [From Neosporin ([id number])] Allergy (Verified 12/05/17 18:04) Unknown rash bacitracin zinc [From Neosporin ([id number])] Allergy (Verified 12/05/17 18:04) Unknown rash fenofibrate nanocrystallized [From Tricor] Allergy (Verified 12/05/17 18:04) Unknown upset gi or muscle pain fenofibrate,micronized [From Tricor] Allergy (Verified 12/05/17 18:04) Unknown flurbiprofen Allergy (Verified 12/05/17 18:04) Unknown upset stomach gemfibrozil Allergy (Verified 12/05/17 18:04) Unknown upset stomach glipizide [From Glucotrol] Allergy (Verified 12/05/17 18:04) Unknown dizzy, upset gi metronidazole Allergy (Verified 12/05/17 18:04) ALLERGY neomycin sulfate [From Neosporin ([id number])] Allergy (Verified 12/05/17 18:04) Unknown rash polymyxin B [From Neosporin ([id number])] Allergy (Verified 12/05/17 18:04) Unknown rash prednisolone acetate, micronized Allergy (Verified 12/05/17 18:04) ALLERGY simvastatin Allergy (Verified 12/05/17 18:04) ALLERGY tramadol [From Ultram] Allergy (Verified 12/05/17 18:04) ALLERGY pravastatin Adverse Reaction (Verified 12/05/17 18:04) Other MUSCLE PAIN Primary Care Physician: Kelsy Mensah MD [Primary Care Provider] - Prior records reviewed: Yes Surgical History: appendectomy, cataract, cholecystectomy, coronary bypass surgery, hysterectomy, total knee arthroplasty, tonsillectomy, - Smoking Status: Never smoker - Family History Maternal Family History: Family History (Last Updated 06/18/17 @ 11:08 by Rhoda Resendez) Mother Diabetes Father Hypertension CVA (cerebral vascular accident) Brother Lung cancer Sister Breast cancer COPD (chronic obstructive pulmonary disease) Family History: Reports: No pertinent history Paternal Family History: Family History (Last Updated 06/18/17 @ 11:08 by Rhoda Resendez) Mother Diabetes Father Hypertension CVA (cerebral vascular accident) Brother Lung cancer Sister Breast cancer COPD (chronic obstructive pulmonary disease) Family History: Reports: No pertinent history Sibling Family History: Family History (Last Updated 06/18/17 @ 11:08 by Rhoda Resendez) Mother Diabetes Father Hypertension CVA (cerebral vascular accident) Brother Lung cancer Sister Breast cancer COPD (chronic obstructive pulmonary disease) Family History: Reports: No pertinent history Review of Systems General: Reports: Fever - Temperature 100.1 ENT: Denies: Bilateral ear pain Cardiovascular: Denies: Chest pain Respiratory: Denies: Dyspnea, Cough Gastrointestinal: Denies: Abdominal pain Musculoskeletal: Denies: Extremity Pain Skin: Reports: Wounds Hematologic: Denies: Easy bruising, Easy bleeding Allergy: Denies: Uticaria Physical Exam Vital Signs/Narrative: Vital Signs Temp Pulse Resp BP Pulse Ox 03/01/20 22:22 97.8 F 65 18 160/74 H 96 Inital Vital Signs reviewed: Yes General: Well nourished, Well developed Head: Normocephalic ENT: Moist mucous membranes Neck: Supple Cardiovascular: Regular rate, Regular rhythm Respiratory: No distress, CTA bilaterally Abdomen: Soft, Nontender Extremities: - - Patient is a 2 cm diameter ulcer over the lateral malleolus of the right ankle. There is also a 1/2 x 1 cm superficial wound to the proximal fifth metatarsal on the right foot. Mild erythema surrounds the wound of the lateral malleolus. Neurological: Alert, Oriented x3 Psychological: Normal affect Diagnostic/Tx/Re-eval Impressions Ankle X-Ray 03/02/20 00:00 IMPRESSION: Soft tissue swelling overlying the lateral malleolus region. No subcutaneous emphysema. No osseous erosions. Electronically Signed: Niko Hernadez, at 0:57 EST Tel , Service support , Foot X-Ray 03/02/20 00:00 IMPRESSION: No acute fracture or osseous erosion. Electronically Signed: Niko Hernadez, at 1:00 EST Tel , Service support , 03/02/20 00:00 Ankle min 3 Views [RAD] Stat Foot min 3 Views [RAD] Stat Laboratory Results 03/01/20 03/01/20 03/01/20 23:50 23:50 23:50 WBC 12.4 H RBC 4.47 Hgb 13.0 Hct 38.7 MCV 86.6 MCH 29.1 MCHC 33.6 RDW Std Deviation 42.5 RDW Coeff of Monique 13.4 Plt Count 202 MPV 10.6 Immature Gran % (Auto) 1.400 H Neut % (Auto) 61.5 Lymph % (Auto) 17.1 L [place] % (Auto) 18.4 H Eos % (Auto) 1.3 Baso % (Auto) 0.3 Absolute Neuts (auto) 7.7 Absolute Lymphs (auto) 2.12 Nucleated RBC % 0 Differential Comment SCANNED Diff Path Review May foll Sodium 138 Potassium 3.8 Chloride 105 Carbon Dioxide 24.0 Anion Gap 9 BUN 26 H Creatinine 1.32 H Estim Creat Clear Calc 31.10 Est GFR (MDRD) Af Amer 50 L Est GFR (MDRD) Non-Af 41 L BUN/Creatinine Ratio 19.7 Glucose 179 H Lactic Acid 1.7 Calcium 9.1 - Medical Decision Making Blood work is reviewed with the patient. White count is mildly elevated. She has mild chronic renal failure. X-rays per my interpretation reveal no osseous involvement but multiple chronic arthritic changes. Radiologist interpretation is reviewed. Patient is given vancomycin and Zosyn. In light of the size of her diabetic ulcer as well as the mild surrounding cellulitis and her history of difficulty healing these wounds I will recommend hospitalization overnight for IV antibiotics. I suspect podiatry will see her tomorrow to make any further recommendations. ED Disposition - Plan for ED Patient: Disposition: Acute Care Hospital [facility] Diagnosis: Diabetic ankle ulcer, Cellulitis Referrals: Kelsy Mensah MD [Primary Care Provider] -
[2020-03-02] VITALS (10 sets, daily range): BP systolic 146–174; BP diastolic 48–69; PULSE 62–68; RESP 15–20; TEMP 36.9–37.3; O2SAT 86–95; BMI 27.1
--- NOTE | 2020-03-02 | RAD_ITS ---
STUDY: X-RAY - RIGHT FOOT CLINICAL: Female, 79 years old. STATES SHE JUST NOTICED A SORE ON HER RT ANKLE (AREA OF LATERAL MALLEOLUS) -- AREA MARKED ON AP ANKLE VIEW -- PATIENT IS DIABETIC TECHNIQUE: 3 view(s) of the foot. COMPARISON: None. FINDINGS: No acute fracture or osseous erosion. There is hallux valgus. Status post amputation of the distal third toe at the metatarsal phalangeal joint. There is degenerative changes of the midfoot and ankle joint. The soft tissue structures are unremarkable. Questionable dislocation at the second metatarsophalangeal joint. Clinically correlate. RAD/Foot min 3 Views IMPRESSION: No acute fracture or osseous erosion. Electronically Signed: Niko Hernadez, at 1:00 EST Tel , Service support ,
--- NOTE | 2020-03-02 | RAD_ITS ---
STUDY: X-RAY - RIGHT ANKLE REASON FOR EXAM: Female, 79 years old. STATES SHE JUST NOTICED A SORE ON HER RT ANKLE (AREA OF LATERAL MALLEOLUS) -- AREA MARKED ON AP ANKLE VIEW -- PATIENT IS DIABETIC TECHNIQUE: 3 view(s) of the ankle. COMPARISON: None. FINDINGS: There is soft tissue swelling overlying the lateral malleolus. No subcutaneous emphysema visualized. Degenerative changes of the ankle joint. No acute fracture or osseous erosion visualized. There is pes planus. The soft tissue structures are unremarkable. RAD/Ankle min 3 Views IMPRESSION: Soft tissue swelling overlying the lateral malleolus region. No subcutaneous emphysema. No osseous erosions. Electronically Signed: Niko Hernadez, at 0:57 EST Tel , Service support ,
[2020-03-02 00:04] LABS: Absolute Lymphocyte Count 2.12 X10^3/uL (0.83-4.51); Absolute Neutrophil Count 7.7 X10^3/uL (2.0-7.7); Basophil# 0.04 X10^3/uL; Basophil% 0.3 % (0-1); Eosinophil# 0.16 X10^3/uL; Eosinophils% 1.3 % (0-5); Hematocrit 38.7 % (37-47); Lymphocyte # 2.12 X10^3/ul (4.0); Lymphocyte % 17.1 % (19-41); Mean Corp Hgb Conc 33.6 g/dL (32-36); Mean Corpuscular Hgb 29.1 pg (27.0-32.0); Mean Corpuscular Volume 86.6 fL (81-99); Mean Platelet Vol. 10.6 fl (6.2-12.0); Monocyte# 2.29 X10^3/uL; Monocyte% 18.4 % (0-10); NRBC Flagged by Analyzer 0 % (0-5); Neutrophil # 7.65 X10^3/uL (2.7-7.7); Neutrophil % 61.5 % (47-70); POSITIVE DIFFERENTIAL YES; Platelet Count 202 K/mm3 (150-450); RBC Distribution Width CV 13.4 % (11.6-14.6); RBC Distribution Width SD 42.5 fl (35.1-43.9); Red Blood Count 4.47 M/mm3 (4.2-5.4); White Blood Count 12.4 K/mm3 (4.4-11.0)
[2020-03-02 00:15] LABS: Differential Indicated SCAN CRITERIA MET
[2020-03-02 00:21] LABS: Anion Gap 9 (5-15); BUN 26 mg/dL (7-18); BUN/Creat Ratio 19.7 RATIO (10-20); Calcium,Total 9.1 mg/dL (8.5-10.1); Chloride 105 mmol/L (98-107); Creatinine, Serum 1.32 mg/dL (0.55-1.02); EST Glomerular Filtration Rate 41 mL/min (>60); Est Glom Filt Rate - Afr Amer 50 mL/min (>60); Glucose 179 mg/dL (74-106); Potassium 3.8 mmol/L (3.5-5.1); Sodium Level 138 mmol/L (136-145)
[2020-03-02 00:23] LABS: Lactic Acid 1.7 mmol/L (0.4-1.9)
[2020-03-02 00:46] LABS: Differential Comment SCANNED
[2020-03-02] MEDS: Vancomycin IV 1,000 MG/200 ML BAG 200 MG IV (01:03)
--- NOTE | 2020-03-02 02:05 | HP.PCM_ITS ---
Problem List (1) Infectious colitis Status: Inactive (2) Diabetic ankle ulcer Status: Acute (3) Cellulitis Status: Acute (4) Acute osteomyelitis of right hand including fingers Status: Inactive Comment: right index finger tip (5) Diabetes with skin ulcer Status: Inactive Comment: nonhealing infected diabetic ulcer right index finger tip (6) Cellulitis of right index finger Status: Inactive (7) CKD (chronic kidney disease), stage III Status: Chronic (8) CAD (coronary artery disease) Status: Chronic Qualifiers: Coronary Disease-Associated Artery/Lesion type: bypass graft [place] vs. transplanted heart: [place] heart Associated angina: without angina Qualified Code(s): I25.810 - Atherosclerosis of coronary artery bypass graft(s) without angina pectoris (9) Osteoarthritis Status: Chronic Qualifiers: Osteoarthritis location: unspecified site Osteoarthritis type: primary Qualified Code(s): M19.91 - Primary osteoarthritis, unspecified site (10) CKD (chronic kidney disease) Status: Chronic (11) History of MRSA infection Status: Chronic (12) Osteomyelitis of left foot Status: Chronic (13) Hypertension Status: Chronic (14) Peripheral arterial disease Status: Chronic (15) Type 2 diabetes mellitus Status: Chronic (16) Rheumatoid arthritis Status: Chronic History of Present Illness Date of Admission: 03/02/20 Chief Complaint: Ulcer of right ankle The patient is a 79 year old F with a significant history of diabetes; with diabetic nephropathy; diabetic neuropathy; osteomyelitis; MRSA and amputation of fingers who presents to the emergency department with an ulcer on her right ankle. Reportedly she just saw the ulcer few hours before presentation. She reports soreness at the ulcer; as well as swelling and redness around the ulcer. She reported a temperature of 100.1 Fahrenheit at home. In the past patient had osteomyelitis. Past Medical History Past Medical History (Chronic Problems): Chronic Problems (Last Reviewed 03/02/20 @ 02:[address] Wilder Lee MD) CKD (chronic kidney disease), stage III (Chronic) CAD (coronary artery disease) (Chronic) Osteoarthritis (Chronic) CKD (chronic kidney disease) (Chronic) History of MRSA infection (Chronic) Osteomyelitis of left foot (Chronic) Hypertension (Chronic) Peripheral arterial disease (Chronic) Type 2 diabetes mellitus (Chronic) Rheumatoid arthritis (Chronic) Medical History: Medical History (Last Reviewed 03/02/20 @ 02:[address] Wilder Lee MD) Arthritis M19.90 Breast lump in female N63.0 Cataracts, bilateral H26.9 Diabetes E11.9 Gallstones K80.20 Heart failure I50.9 Osteoarthritis M19.90 High blood pressure I10 Allergies adhesive Allergy (Verified 12/05/17 18:04) Unknown red skin, uses paper tape and is okay with this atorvastatin calcium [From Lipitor] Allergy (Verified 12/05/17 18:04) Unknown joint pain bacitracin [From Neosporin ([id number])] Allergy (Verified 12/05/17 18:04) Unknown rash bacitracin zinc [From Neosporin ([id number])] Allergy (Verified 12/05/17 18:04) Unknown rash fenofibrate nanocrystallized [From Tricor] Allergy (Verified 12/05/17 18:04) Unknown upset gi or muscle pain fenofibrate,micronized [From Tricor] Allergy (Verified 12/05/17 18:04) Unknown flurbiprofen Allergy (Verified 12/05/17 18:04) Unknown upset stomach gemfibrozil Allergy (Verified 12/05/17 18:04) Unknown upset stomach glipizide [From Glucotrol] Allergy (Verified 12/05/17 18:04) Unknown dizzy, upset gi metronidazole Allergy (Verified 12/05/17 18:04) ALLERGY neomycin sulfate [From Neosporin ([id number])] Allergy (Verified 12/05/17 18:04) Unknown rash polymyxin B [From Neosporin ([id number])] Allergy (Verified 12/05/17 18:04) Unknown rash prednisolone acetate, micronized Allergy (Verified 12/05/17 18:04) ALLERGY simvastatin Allergy (Verified 12/05/17 18:04) ALLERGY tramadol [From Ultram] Allergy (Verified 12/05/17 18:04) ALLERGY pravastatin Adverse Reaction (Verified 12/05/17 18:04) Other MUSCLE PAIN Home Medications: Ambulatory Orders Medication Instructions Recorded Insulin Glargine [Lantus SoloStar 10 units SC QHS 08/26/15 Pen] glyBURIDE [Micronase] 5 mg PO DAILY@0800 08/26/15 metFORMIN HCl [Glucophage] 500 mg PO TIDCM 08/26/15 Ascorbic Acid [Vitamin C] 500 mg PO DAILY 12/09/16 Atenolol [Tenormin (beta charlie)] 50 mg PO BID 12/09/16 Cholecalciferol (Vitamin D3) 1,000 unit PO DAILY 12/09/16 [Vitamin D3] Cyanocobalamin (Vitamin B-12) 1,000 mcg PO DAILY 12/09/16 [Vitamin B-12] Multivitamin [Multiple Vitamins] 1 ea PO DAILY 12/09/16 Boring-3 Fatty Acids/Fish Oil 1 cap PO BID 12/09/16 [Boring 3 Fish Oil Softgel] Acetaminophen [Tylenol] 1,000 mg PO Q8H PRN PRN 06/10/17 Aspirin 81 mg PO DAILY 06/11/17 Amlodipine [Norvasc] 10 mg PO DAILY #30 tab 06/13/17 Lisinopril 20 mg PO DAILY 12/05/17 Magnesium Oxide [Magox 400] 400 mg PO DAILY 03/01/20 Surgical History: Surgical History (Last Reviewed 03/02/20 @ 02:[address] Wilder Lee MD) History of cholecystectomy Z90.49 History of heart bypass surgery Z95.1 History of knee replacement Z96.659 Surgical History: appendectomy, cataract, cholecystectomy, coronary bypass surgery, hysterectomy, total knee arthroplasty, tonsillectomy, - Psychiatric History: No pertinent psych hx [employer] SAL[employer] History: No pertinent [employer] history Smoking Status: Never smoker - *Family History Maternal Family History: Family History (Last Reviewed 03/02/20 @ 02:[address] Wilder Lee MD) Mother Diabetes Father Hypertension CVA (cerebral vascular accident) Brother Lung cancer Sister Breast cancer COPD (chronic obstructive pulmonary disease) History Items: No pertinent history Paternal Family History: Family History (Last Reviewed 03/02/20 @ 02:[address] Wilder Lee MD) Mother Diabetes Father Hypertension CVA (cerebral vascular accident) Brother Lung cancer Sister Breast cancer COPD (chronic obstructive pulmonary disease) History Items: No pertinent history Sibling Family History: Family History (Last Reviewed 03/02/20 @ 02:[address] Wilder Lee MD) Mother Diabetes Father Hypertension CVA (cerebral vascular accident) Brother Lung cancer Sister Breast cancer COPD (chronic obstructive pulmonary disease) History Items: No pertinent history Review of Systems Constitutional: Reports: Fever. Denies: Chills, Weight Change HEENT: Denies: Head Aches, Sinus Congestion, Sinus Drainage Cardiovascular: Denies: Chest Pain, Palpitations Respiratory: Denies: Cough, Shortness of breath at rest, Sputum production Gastrointestinal: Denies: Abdominal Pain, Nausea, Vomiting Genitourinary: Denies: Dysuria Musculoskeletal: Denies: Joint Pain, Joint Tenderness Skin: Reports: Wounds - Right ankle. Denies: Rash Neurological: Denies: Numbness, Tingling, Focal weakness Psychiatric: Reports: Anxiety. Denies: Depression, Homicidal Ideations, Suicidal Ideations Hematologic/ Lymphatic: Denies: Easy Bruising, Easy Bleeding VTE Information - Inpt Only VTE Present on Admission: No VTE Mechan Device Prophylaxis: SCD's VTE Pharm Prophylaxis ordered?: No Patient Problems: Active and Suspected Problems (Last Reviewed 03/02/20 @ 02:[address] Wilder Lee MD) Diabetic ankle ulcer (Acute) Cellulitis (Acute) - Physical Exam Vitals/I&O's: Vital Signs Temp Pulse Resp BP Pulse Ox 97.8 F 65 18 160/74 H 96 03/01/20 22:22 03/01/20 22:22 03/01/20 22:22 03/01/20 22:22 03/01/20 22:22 Oxygen Delivery Method Room Air Weight: 74.843 kg Body Mass Index (BMI) 27.4 Finger Stick Blood Glucose 235 Intake and Output for Last 24 Hours 02/29/20 03/01/20 03/02/20 23:59 23:59 23:59 Intake Total 100 / 100 Balance 100 / 100 General: Alert, Oriented x3, Cooperative HEENT: Atraumatic, PERRLA, EOMI, Normocephalic Neck: Supple, No JVD, Negative Carotid Bruits Lungs: Clear to auscultation, Normal air movement Cardiovascular: Regular rate, Normal S1, Normal S2, No murmurs Abdomen: Bowel Sounds Present, Soft, Non Tender Extremities: Capillary Refill Less than 3 Seconds, Edema - Edema of right foot and right lower leg. Skin: Ulcer/ Wound - Right ankle with eschar, - - Surrounding erythema of right ankle wound. Musculoskeletal: No Tenderness to Palpation of Joints or Extremities Neurological: Cranial nerves II-XII grossly intact Psych/Mental Status: Normal Affect, Appropriate Laboratory Results 03/01/20 23:50: WBC 12.4 H, RBC 4.47, Hgb 13.0, Hct 38.7, MCV 86.6, MCH 29.1, MCHC 33.6, RDW Std Deviation 42.5, RDW Coeff of Monique 13.4, Plt Count 202, MPV 10.6, Immature Gran % (Auto) 1.400 H, Neut % (Auto) 61.5, Lymph % (Auto) 17.1 L, [place] % (Auto) 18.4 H, Eos % (Auto) 1.3, Baso % (Auto) 0.3, Absolute Neuts (auto) 7.7, Absolute Lymphs (auto) 2.12, Nucleated RBC % 0, Differential Comment MISHA Flores, Diff Path Review July03/01/20 23:50: Sodium 138, Potassium 3.8, Chloride 105, Carbon Dioxide 24.0, Anion Gap 9, BUN 26 H, Creatinine 1.32 H, Estim Creat Clear Calc 31.10, Est GFR (MDRD) Af Amer 50 L, Est GFR (MDRD) Non-Af 41 L, BUN/Creatinine Ratio 19.7, Glucose 179 H, Calcium 9.1 03/01/20 23:50: Lactic Acid 1.7 Assessment/Plan All Active Problems (Last Reviewed 03/02/20 @ 02:[address] Wilder Lee MD) Diabetic ankle ulcer (Acute) Cellulitis (Acute) Infection of diabetic foot ulcer and surrounding cellulitis Vancomycin and Zosyn were given at emergency department. Vancomycin and Zosyn ordered inpatient. Trend CBC and BMP. Consult podiatry. Keep patient n.p.o. While n.p.o. gentle normal saline hydration ordered. ESR and CRP were ordered returned elevated. We will get a follow-up MRI to rule out osteomyelitis Hold aspirin for now. Tylenol for fever. Diabetes mellitus with nephropathy and neuropathy Blood glucose was elevated on presentation. Basal insulin continued. While n.p.o. hold glyburide. Hold metformin the hospital setting. Accu-Chek every 6 hours with correction scale insulin ordered. CKD stage III Likely diabetes contributing. Stable Trend BMP. Hypertension Blood pressure is elevated Amlodipine and lisinopril continued. Atenolol continued. Hydralazine as needed ordered. CAD status post CABG Stable. Aspirin held secondary patient being a surgical candidate. Lisinopril and atenolol continued. DVT prophylaxis SCD for now. No chemical thromboprophylaxis in the setting of possible surgical intervention. Inpatient E&M: 23257 Init Hosp L3
[2020-03-02] MEDS: 0.9% Normal Saline 1,000 ML 75 ML IV (02:27)
[2020-03-02 03:03] LABS: Erythrocyte Sedimentation Rate 56 mm/hr (0-30)
--- NOTE | 2020-03-02 03:10 | MRI_ITS ---
STUDY: MRI RIGHT ANKLE WITHOUT CONTRAST REASON FOR EXAM: Right ankle ulcer, swelling, redness, osteomyelitis. TECHNIQUE: Standardized fat and water weighted pulse sequences were obtained in all 3 orthogonal planes. COMPARISON: Radiographs 03/02/2020. FINDINGS: There is a septated fluid collection deep to the ulcer at the lateral aspect of the ankle (T2 coronal images 16-23) measuring 3.5 x 4.2 cm (AP x length), either soft tissue abscess or ganglion cyst. There is edema in the subcutis adipose space. Normal posterior tibialis tendon. There is a small volume of fluid in the proximal flexor digitorum longus tendon sheath (inversion recovery sagittal image 19). The flexor digitorum longus tendon is morphologically normal. There is a small volume of fluid in the flexor hallucis longus tendon sheath, distal to the sustentaculum ema (inversion recovery sagittal image 18). There is fluid in the retromalleolar and submalleolar peroneal tendon sheath (inversion recovery sagittal images 7-9). The peroneus longus and brevis tendons are morphologically normal. Normal tibialis anterior tendon. Normal extensor hallucis longus tendon. Normal extensor digitorum longus tendons. Normal Achilles tendon and teno-osseous insertion. Normal plantar fascia. There is a plantar calcaneal enthesophyte. There is atrophy with fat replacement of the intrinsic muscles of the rearfoot and midfoot consistent with peripheral neuropathy. Normal distal tibiofibular syndesmotic ligamentous complex. Normal lateral ligamentous complex. There is edema in the sinus tarsi (inversion recovery sagittal images 13, 14). There is bone edema in the medial malleolus and medial talus at the attachment sites of the deltoid ligament with enthesopathy (T2 coronal images 14, 15) without demonstrated deltoid ligament tear. There is neuropathic osteoarthropathy of the hindfoot, midfoot and tarsometatarsal articulations (T1 sagittal images 9-21) with prominent cysts in the calcaneus, mild cystic change of the plantar aspect of the talar body and mild bone edema. There is bone edema in the peripheral aspect of the lateral malleolus (T2 coronal images 17-19) with mild decreased T1 bone marrow signal (T1 axial images 19, 20). MRI/Lower Ext Joint Only (Routine) IMPRESSION: Bone edema in the peripheral aspect of the lateral malleolus with mild decreased T1 bone marrow signal, possibly representing osteomyelitis. Septated fluid collection deep to the ulcer at the lateral aspect of the ankle, either soft tissue abscess or ganglion cyst. 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 Flexor digitorum longus, flexor hallucis longus and peroneal tenosynovitis. Electronically Signed: Severiano Costello MD at 10:04 EST Tel , Service support ,
--- NOTE | 2020-03-02 03:54 | PCM.RX.CS ---
Consult Pharmacy has been consulted to manage selected antiobiotic: Vancomycin Type of Consult: New start Suspected Infection: Skin/Soft tissue Prior Doses of Antibiotics Received/Current Regimen: Medications Medications Vancomycin HCl (Vancomycin) 1,000 mg in 200 mls @ 200 mls/hr IV Q24H [place] to start 03/03/20 0100 Discontinued Medications Vancomycin HCl (Vancomycin) 1,000 mg in 200 mls @ 200 mls/hr IV X1 ONE Stop: 03/02/20 00:44 Last Admin: 03/02/20 02:15 Dose: Infused Documented by: Labs: Sodium 138 mmol/L (136-145) 03/01/20 23:50 Potassium 3.8 mmol/L (3.5-5.1) 03/01/20 23:50 Chloride 105 mmol/L (98-107) 03/01/20 23:50 Carbon Dioxide 24.0 mmol/L (21.0-32.0) 03/01/20 23:50 Anion Gap 9 (5-15) 03/01/20 23:50 BUN 26 mg/dL (7-18) H 03/01/20 23:50 Creatinine 1.32 mg/dL (0.55-1.02) H 03/01/20 23:50 Est GFR (MDRD) Af Amer 50 mL/min (>60) L 03/01/20 23:50 Est GFR (MDRD) Non-Af 41 mL/min (>60) L 03/01/20 23:50 BUN/Creatinine Ratio 19.7 RATIO (10-20) 03/01/20 23:50 Glucose 179 mg/dL (74-106) H 03/01/20 23:50 Weight used for dosin.9 kg Estimated Creatinine Clearance: 31ml/min Goal Trough: 15-20 mcg/mL Pharmacy Plan for Drug Dosing: Pharmacy Service will continue to monitor and adjust dosing as required. Follow-Up Labs: Trough Vancomycin - Draw 30 minutes before 3rd dose due Labs to be done on [date and time ordered]: 03/04/20 0030
[2020-03-02 05:55] LABS: Bedside Glucose 190 mg/dL (70-110)
--- NOTE | 2020-03-02 07:44 | PCS.PANDOC ---
PANDEMIC DOCUMENTATION INITIATED: Date: 03/02/2020 Time: 2842
[2020-03-02 07:52] LABS: Absolute Lymphocyte Count 1.32 X10^3/uL (0.83-4.51); Absolute Neutrophil Count 5.7 X10^3/uL (2.0-7.7); Basophil# 0.04 X10^3/uL; Basophil% 0.5 % (0-1); Eosinophil# 0.14 X10^3/uL; Eosinophils% 1.6 % (0-5); Hematocrit 36.2 % (37-47); Hemoglobin 12.1 g/dL (12.0-15.0); Lymphocyte # 1.32 X10^3/ul (4.0); Mean Corp Hgb Conc 33.4 g/dL (32-36); Mean Corpuscular Hgb 28.9 pg (27.0-32.0); Mean Corpuscular Volume 86.4 fL (81-99); Mean Platelet Vol. 10.7 fl (6.2-12.0); Monocyte# 1.61 X10^3/uL; Monocyte% 18.3 % (0-10); NRBC Flagged by Analyzer 0 % (0-5); Neutrophil # 5.66 X10^3/uL (2.7-7.7); Neutrophil % 64.1 % (47-70); POSITIVE DIFFERENTIAL YES; Platelet Count 200 K/mm3 (150-450); RBC Distribution Width CV 13.4 % (11.6-14.6); RBC Distribution Width SD 42.5 fl (35.1-43.9); Red Blood Count 4.19 M/mm3 (4.2-5.4); White Blood Count 8.8 K/mm3 (4.4-11.0)
[2020-03-02 07:54] LABS: Differential Indicated SCAN CRITERIA MET
--- NOTE | 2020-03-02 08:12 | NURSING ---
pt transported off unit via bed for MRI at this time
[2020-03-02 08:16] LABS: Anion Gap 7 (5-15); BUN 21 mg/dL (7-18); BUN/Creat Ratio 18.1 RATIO (10-20); Calcium,Total 8.7 mg/dL (8.5-10.1); Chloride 107 mmol/L (98-107); Creatinine, Serum 1.16 mg/dL (0.55-1.02); EST Glomerular Filtration Rate 48 mL/min (>60); Est Glom Filt Rate - Afr Amer 58 mL/min (>60); Estimated Creatinine Clearance 35.39 ml/min; Glucose 154 mg/dL (74-106); Potassium 3.8 mmol/L (3.5-5.1); Sodium Level 138 mmol/L (136-145)
[2020-03-02] MEDS: Multivitamins,Therapeutic Tablet 1 TABLET PO (09:55)
[2020-03-02] MEDS: Ascorbic Acid 500 MG Tablet PO (09:55)
[2020-03-02] MEDS: Atenolol 50 MG Tablet PO ×2 (09:55→20:46)
[2020-03-02] MEDS: 0.9% Saline Lock 10 ML Syringe IV (09:55)
[2020-03-02] MEDS: Lisinopril 20 MG Tablet PO (09:55)
[2020-03-02] MEDS: Cyanocobalamin 500 MCG Tablet 1000 MCG PO (09:56)
[2020-03-02] MEDS: amLODIPine 10 MG Tablet PO (09:56)
--- NOTE | 2020-03-02 11:10 | CYST_PTH ---
PATIENT: DARREN SANDOVAL LOC: 3 U#:[id number] AGE/SX: 79/F ROOM: MS317 RE03/02/[address]: Dr. Bin Fields MD : 1940 BED: 1 DIS: 03/04/2020 SPEC #: [id number] RECD: 03/02/20 11:25 STATUS: CHLOE RELynette #: [id number] MARIA ELENA: 03/02/20 11:[address]: Ema Chao DEPT: SURGICAL PATHOLOGY RECD BY: Dorita Rosario ENTERED: 03/02/20 13:09 SP TYPE: Cyst OTHR DR: MD Dr. Bin Cuevas MD Dr. Joseph Agyepong, MD Dr. Kelly Kubiak, DPM Dr. Loki Rico MD Tissues: CYST Procedures: Surgery Specimen Level III Comments: @ Ordering doctor for SUIII edited from to @ by MEET at 03/02/20 1407 @ Submitting doctor edited from to @ by RGOOD at 03/02/20 1407 HEADER OPERATION: Bedside incision and drainage right ankle PRE-OP DIAGNOSIS: Abscess vs cyst right ankle TISSUE SUBMITTED: Ganglion cyst right lateral ankle MICROSCOPIC DIAGNOSIS Ganglion cyst contents, removal: Abundant mucofibrinoid material. Fragments of superficial hyperkeratotic skin. See comment. MACI:delisa 03/03/20 COMMENT Clinical correlation is suggested. MICROSCOPIC DESCRIPTION Slides are reviewed. GROSS DESCRIPTION Received in fixative is one container labeled with the patient's name and designated right ankle. The specimen consists of a piece of thick mucoidy fluid measuring 3.5 x 1.5 x 0.5 cm. Also present in the container is a piece of almazan soft tissue measuring 1 x 0.2 x 0.1 cm. Seed Technician portion of the mucoidy glistening tissue and entire soft tissue is submitted in one cassette. / SJ:delisa 03/02/20 TC:5 CPT: 53793
--- NOTE | 2020-03-02 11:13 | CON.PCM_ITS ---
Problem List (1) Diabetic ankle ulcer Status: Acute (2) Cellulitis Status: Acute (3) Diabetes with skin ulcer Status: Inactive Comment: nonhealing infected diabetic ulcer right index finger tip (4) Peripheral arterial disease Status: Chronic Reason for Consult Date of Consultation: 03/02/20 Reason for Consultation: right ankle wound History of Present Illness: The patient is a 79 year old F who presented to the emergency room overnight for discoloration ulcer and blood noted to the lateral side of her right ankle. Patient states she is diabetic and has not had infections in the past and was concerned. Patient has severe neuropathy and has no feeling in her feet or a nkles. Patient has Charcot deformity and has diabetic shoes with inserts to help with the deformity. The deformity is manageable. Patient also has chronic edema and did not notice any significant change in the size of her foot and ankle recently. Patient states that this happened last night she checks her feet daily at night and it was not there the day previously. Patient denies any nausea fever vomiting chills chest pain shortness of breath elevation in blood glucose. Patient is also hard of hearing. [] Past Medical History Past Medical History (Chronic Problems): Chronic Problems (Last Reviewed 03/02/20 @ 02:[address] Wilder Lee MD) CKD (chronic kidney disease), stage III (Chronic) CAD (coronary artery disease) (Chronic) Osteoarthritis (Chronic) CKD (chronic kidney disease) (Chronic) History of MRSA infection (Chronic) Osteomyelitis of left foot (Chronic) Hypertension (Chronic) Peripheral arterial disease (Chronic) Type 2 diabetes mellitus (Chronic) Rheumatoid arthritis (Chronic) Medical History: Medical History (Last Reviewed 03/02/20 @ 02:[address] Wilder Lee MD) Arthritis M19.90 Breast lump in female N63.0 Cataracts, bilateral H26.9 Diabetes E11.9 Gallstones K80.20 Heart failure I50.9 Osteoarthritis M19.90 High blood pressure I10 Allergies adhesive Allergy (Verified 12/05/17 18:04) Unknown red skin, uses paper tape and is okay with this atorvastatin calcium [From Lipitor] Allergy (Verified 12/05/17 18:04) Unknown joint pain bacitracin [From Neosporin ([id number])] Allergy (Verified 12/05/17 18:04) Unknown rash bacitracin zinc [From Neosporin ([id number])] Allergy (Verified 12/05/17 18:04) Unknown rash fenofibrate nanocrystallized [From Tricor] Allergy (Verified 12/05/17 18:04) Unknown upset gi or muscle pain fenofibrate,micronized [From Tricor] Allergy (Verified 12/05/17 18:04) Unknown flurbiprofen Allergy (Verified 12/05/17 18:04) Unknown upset stomach gemfibrozil Allergy (Verified 12/05/17 18:04) Unknown upset stomach glipizide [From Glucotrol] Allergy (Verified 12/05/17 18:04) Unknown dizzy, upset gi metronidazole Allergy (Verified 12/05/17 18:04) ALLERGY neomycin sulfate [From Neosporin ([id number])] Allergy (Verified 12/05/17 18:04) Unknown rash polymyxin B [From Neosporin ([id number]-qik-puhel)] Allergy (Verified 12/05/17 18:04) Unknown rash prednisolone acetate, micronized Allergy (Verified 12/05/17 18:04) ALLERGY simvastatin Allergy (Verified 12/05/17 18:04) ALLERGY tramadol [From Ultram] Allergy (Verified 12/05/17 18:04) ALLERGY pravastatin Adverse Reaction (Verified 12/05/17 18:04) Other MUSCLE PAIN Home Medications: Ambulatory Orders Medication Instructions Recorded Insulin Glargine [Lantus SoloStar 10 units SC QHS 08/26/15 Pen] glyBURIDE [Micronase] 5 mg PO DAILY@0800 08/26/15 metFORMIN HCl [Glucophage] 500 mg PO TIDCM 08/26/15 Ascorbic Acid [Vitamin C] 500 mg PO DAILY 12/09/16 Atenolol [Tenormin (beta charlie)] 50 mg PO BID 12/09/16 Cholecalciferol (Vitamin D3) 1,000 unit PO DAILY 12/09/16 [Vitamin D3] Cyanocobalamin (Vitamin B-12) 1,000 mcg PO DAILY 12/09/16 [Vitamin B-12] Multivitamin [Multiple Vitamins] 1 ea PO DAILY 12/09/16 [place]-3 Fatty Acids/Fish Oil 1 cap PO BID 12/09/16 [[place] 3 Fish Oil Softgel] Acetaminophen [Tylenol] 1,000 mg PO Q8H PRN PRN 06/10/17 Aspirin 81 mg PO DAILY 06/11/17 Amlodipine [Norvasc] 10 mg PO DAILY #30 tab 06/13/17 Lisinopril 20 mg PO DAILY 12/05/17 Magnesium Oxide [Magox 400] 400 mg PO DAILY 03/01/20 Surgical History: Surgical History (Last Reviewed 03/02/20 @ 02:[address] 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 Wilder Lee MD) Mother Diabetes Father Hypertension CVA (cerebral vascular accident) Brother Lung cancer Sister Breast cancer COPD (chronic obstructive pulmonary disease) History Items: No pertinent history Paternal Family History: Family History (Last Reviewed 03/02/20 @ 02:[address] Wilder Lee MD) Mother Diabetes Father Hypertension CVA (cerebral vascular accident) Brother Lung cancer Sister Breast cancer COPD (chronic obstructive pulmonary disease) History Items: No pertinent history Sibling Family History: Family History (Last Reviewed 03/02/20 @ 02:[address] Wilder Lee MD) Mother Diabetes Father Hypertension CVA (cerebral vascular accident) Brother Lung cancer Sister Breast cancer COPD (chronic obstructive pulmonary disease) History Items: No pertinent history Review of Systems Constitutional: Denies: Chills, Fever HEENT: Reports: Difficulty Hearing Cardiovascular: Reports: Edema. Denies: Chest Pain Respiratory: Denies: Shortness of Breath Musculoskeletal: Reports: - - no pain, charcot foot deformity noted, right 3rd toe amputation Skin: Reports: Wounds - right lateral ankle Neurological: Reports: Numbness, Tingling Patient Problems: Active and Suspected Problems (Last Reviewed 03/02/20 @ 02:[address] Wilder Lee MD) Diabetic ankle ulcer (Acute) Cellulitis (Acute) - Physical Exam Vitals/I&O's: Vital Signs Temp Pulse Resp BP Pulse Ox 99.0 F 65 18 174/49 H 93 03/02/20 08:00 03/02/20 08:00 03/02/20 08:00 03/02/20 08:00 03/02/20 08:00 Oxygen Delivery Method Room Air Weight: 73.936 kg Body Mass Index (BMI) 27.1 Finger Stick Blood Glucose 235 Intake and Output for Last 24 Hours 02/29/20 03/01/20 03/02/20 23:59 23:59 23:59 Intake Total 717.50 / 717.50 Balance 717.50 / 717.50 General: Alert, Oriented x3 HEENT: Atraumatic Extremities: No clubbing, No cyanosis, Capillary Refill Less than 3 Seconds, No Calf Tenderness, Edema - Chronic, Peripheral Pulses Normal, - Skin: Ulcer/ Wound - Right lateral ankle at the level of the malleoli with bloody necrotic tissue overlay. Upon debridement copious amounts of gelatinous fluid and blood consistent with ganglion cyst was expressed, stab incision is approximately 1 cm surrounding tissue is thin and preulcerative which is 3-1/2 x 4 cm, - - Callus tissue noted to plantar lateral aspect of right fifth metatarsal base Musculoskeletal: No Tenderness to Palpation of Joints or Extremities, - - right: charcot Foot deformity, third toe amputation Neurological: - - Absent sensation to light touch and pain to bilateral feet secondary to patient's neuropathy Psych/Mental Status: Normal Affect, Appropriate Laboratory Results 03/01/20 23:50: WBC 12.4 H, RBC 4.47, Hgb 13.0, Hct 38.7, MCV 86.6, MCH 29.1, MCHC 33.6, RDW Std Deviation 42.5, RDW Coeff of Monique 13.4, Plt Count 202, MPV 10.6, Immature Gran % (Auto) 1.400 H, Neut % (Auto) 61.5, Lymph % (Auto) 17.1 L, [place] % (Auto) 18.4 H, Eos % (Auto) 1.3, Baso % (Auto) 0.3, Absolute Neuts (auto) 7.7, Absolute Lymphs (auto) 2.12, Nucleated RBC % 0, Differential Comment SCANNED, Diff Path Review July03/01/20 23:50: Sodium 138, Potassium 3.8, Chloride 105, Carbon Dioxide 24.0, Anion Gap 9, BUN 26 H, Creatinine 1.32 H, Estim Creat Clear Calc 31.10, Est GFR (MDRD) Af Amer 50 L, Est GFR (MDRD) Non-Af 41 L, BUN/Creatinine Ratio 19.7, Glucose 179 H, Calcium 9.1 03/01/20 23:50: Lactic Acid 1.7 03/01/20 23:50: ESR 56 H 03/01/20 23:50: C-React Prot Ext Range 155.00 H 03/02/20 05:50: POC Glucose 190 H 03/02/20 07:42: WBC 8.8, RBC 4.19 L, Hgb 12.1, Hct 36.2 L, MCV 86.4, MCH 28.9, MCHC 33.4, RDW Std Deviation 42.5, RDW Coeff of Monique 13.4, Plt Count 200, MPV 10.7, Immature Gran % (Auto) 0.500, Neut % (Auto) 64.1, Lymph % (Auto) 15.0 L, [place] % (Auto) 18.3 H, Eos % (Auto) 1.6, Baso % (Auto) 0.5, Absolute Neuts (auto) 5.7, Absolute Lymphs (auto) 1.32, Nucleated RBC % 0, Differential Comment COMMENT 03/02/20 07:42: Sodium 138, Potassium 3.8, Chloride 107, Carbon Dioxide 24.0, Anion Gap 7, BUN 21 H, Creatinine 1.16 H, Estim Creat Clear Calc 35.39, Est GFR (MDRD) Af Amer 58 L, Est GFR (MDRD) Non-Af 48 L, BUN/Creatinine Ratio 18.1, Glucose 154 H, Calcium 8.7 Current Medications Acetaminophen (Acetaminophen 500 Mg Tablet) 1,000 mg PO Q8H PRN PRN PRN Reason: Pain Score 1-10 Amlodipine Besylate (Amlodipine 10 Mg Tablet) 10 mg PO DAILY [facility] Last Admin: 03/02/20 09:56 Dose: 10 mg Documented by: Ascorbic Acid (Ascorbic Acid 500 Mg Tablet) 500 mg PO DAILY [facility] Last Admin: 03/02/20 09:55 Dose: 500 mg Documented by: Atenolol (Atenolol 50 Mg Tablet) 50 mg PO BID [facility] Last Admin: 03/02/20 09:55 Dose: 50 mg Documented by: Cholecalciferol (Cholecalciferol (Vit D3) 1,000 Unit (25mcg)) 1,000 unit PO DAILY [facility] Last Admin: 03/02/20 09:56 Dose: 1,000 unit Documented by: Cyanocobalamin (Cyanocobalamin 500 Mcg Tablet) 1,000 mcg PO DAILY [facility] Last Admin: 03/02/20 09:56 Dose: 1,000 mcg Documented by: Dextrose (Dextrose 50%-Water 25 Gm/50 Ml Disp.Syrin) 0 gm IV X1 PRN; Protocol PRN Reason: Hypoglycemia Glucagon (Glucagon 1 Mg/Ml Syringe) 1 mg IM .X1 PRN PRN Reason: Hypoglycemia Hydralazine HCl (Hydralazine 20 Mg/Ml Vial) 5 mg IV Q4H PRN PRN PRN Reason: SBP more than 160 or DBP more than 120 Sodium Chloride () 1,000 mls @ 75 mls/hr IV .[id number] [facility] Stop: 03/02/20 15:29 Last Infusion: 03/02/20 08:00 Dose: 0 mls/hr Documented by: Vancomycin IV Pharmacy to Dose (1 ea/ Sodium Chloride) 500 mls @ 250 mls/hr IV X1 PRN; Protocol PRN Reason: Rx to Dose Piperacillin Sod/Tazobactam (Sod 3.375 gm/ Sodium Chloride) 50 mls @ 12.5 mls/hr IV Q8 [facility] Last Infusion: 03/02/20 09:54 Dose: 12.5 mls/hr Documented by: Vancomycin HCl (Vancomycin) 1,000 mg in 200 mls @ 200 mls/hr IV Q24H [facility] Insulin Glargine (Insulin Glargine 100 Units/Ml Pen) 10 units SC QHS [facility] Insulin Human Lispro (Insulin Lispro 100 Unit/Ml Insuln.Pen) 0 unit SC Q6 [facility]; Protocol Last Admin: 03/02/20 05:55 Dose: Not Given Documented by: Lisinopril (Lisinopril 20 Mg Tablet) 20 mg PO DAILY [facility] Last Admin: 03/02/20 09:55 Dose: 20 mg Documented by: Magnesium Chloride (Magnesium Chloride 64 Mg Delay Rel.Tablet) 128 mg PO DAILY [facility] Last Admin: 03/02/20 10:00 Dose: Not Given Documented by: Melatonin (Melatonin 3 Mg Tablet) 3 mg PO QHS PRN PRN PRN Reason: INSOMNIA Multivitamins (Multivitamins,Therapeutic Tablet) 1 tablet PO DAILYCM [facility] Last Admin: 03/02/20 09:55 Dose: 1 tablet Documented by: Ondansetron HCl (Ondansetron 4 Mg/2 Ml Vial) 4 mg IV Q8H PRN PRN PRN Reason: NAUSEA/VOMITING Senna/Docusate Sodium (Senna/Docusate Sodium 1 Tablet) 2 tablet PO BID PRN PRN PRN Reason: Constipation Sodium Chloride (0.9% Saline Lock 10 Ml Syringe) 10 - 40 ml IV UD PRN PRN Reason: SALINE FLUSH Last Admin: 03/02/20 09:55 Dose: 10 ml Documented by: Assessment/Plan All Active Problems (Last Reviewed 03/02/20 @ 02:[address] Wilder Lee MD) Diabetic ankle ulcer (Acute) Cellulitis (Acute) Right ankle ulcer Ganglion cyst right lateral ankle Cellulitis right lower extremity Charcot foot deformity right foot Diabetes with neuropathy Patient seen and examined at bedside Patient was noted to have fluctuant mass over the lateral aspect of her right ankle with surrounding erythema Patient states that this has been there within the last 24 hours Patient denies any pain if she has complete neuropathy to her feet and ankles MRI was reviewed showing possible cyst or abscess to the lateral right ankle as well as a deltoid tear calcaneal cyst and decreased signal at the peripheral lateral malleolus X-ray was also reviewed showing soft tissue swelling and and Charcot deformity Labs were reviewed showing initial leukocytosis upon admission which has since resolved Bedside I&D was performed after verbal consent was obtained from the patient. This was done with sharp excisional nonselective debridement of the right lateral ankle with a 15 blade into the tissue of fat without incident. I removed devitalized tissue as well as copious amounts of gelatinous fluid consis tent with a ganglion cyst with noted sanguinous drainage. There was no pus expressed. Did not probe to bone. This was tolerated by the patient due to patient's neuropathy postoperative debridement measurements are 1 cm x 0.3 cm x 2.5 cm Site was dressed with 1/4 inch packing, Aquacel silver, 4 x 4's ABD Kerlix and Colten wrap This will need to be continued daily Specimens were sent from the procedure including wound swabs for aerobic and anaerobic as well as the gelatinous fluid pathology. Will follow results Discussed with the patient that it will be importance to relieve pressure from this area. Patient states that she typically sleeps on her right side. I would discouraged her from sleeping this way and if it is unavoidable to consider getting a donut pad to offload the area when on her side. Discussed that the pressure will slow down the healing Patient states that she bleeds easily will need to watch to make sure no hematoma develops into the void from the cyst deficit Weightbearing as tolerated Thank you for the consult Please call if any questions or concerns arise
--- NOTE | 2020-03-02 11:20 | CASEMGMT ---
FLOR DOMINGO Face to Face with patient for initial transition planning/care coordination assessment. RN CM introduced self and role at [facility]. Patient lying in bed, alert and oriented. Patient willing to participate in assessment and is able to answer all questions appropriately. Care providers, pharmacy, and demographics verified. Patient wishes to discharge home, denies need for home health at this time and states daughter can assist with dressing changes. Patient states he has no further needs or concerns at this time. CM to follow for discharge planning needs that may arise. PCP: [place] Specialists: none Preferred Pharmacy: [facility] Insurance: [facility] [place] Prescription Benefit: none Living Will/HPOA: none LNOK: , daughter Living Arrangements: Patient lives with in a single story home with no steps to enter the home. Patient states that her daughter lives across the street and can assist with care. Transportation: [facility] Van or Driving service DME/HHC: Patient states she has shower chair, raised toilet, cane, walker, grab bars, and wheelchair at home. Patient states she also has a glucometer. Disposition Plan: Patient to discharge home with family support and follow-up plans in place. Bridgett FERRERA, RN, CM
[2020-03-02 11:35] LABS: Bedside Glucose 149 mg/dL (70-110)
--- NOTE | 2020-03-02 11:47 | PCM.DC.POD ---
Discharge Activity: Return to Normal Activity Weight Bearing Status: Weight bearing as tolerated Keep extremity elevated above heart level: Left Leg, Right Leg, - - To assist with swelling Call your doctor if your incision/area has: Sudden Increased Bleeding, Increased Pain/ Swelling, Increased Redness, Foul Smelling Discharge Call your doctor if you observe: Fever of 101 or Higher, Shortness of breath, Dizziness, Fainting spells, Uncontrolled pain Change Dressing in (Days):: 1 - Daily dressing changes Additional Dressing/Incision Instructions:: Change quarter inch packing daily covering with Aquacel Ag, 4 x 4's ABDs Kerlix and Colten wrap Allergies/Adverse Reactions: Allergies adhesive Allergy (Verified 12/05/17 18:04) Unknown red skin, uses paper tape and is okay with this atorvastatin calcium [From Lipitor] Allergy (Verified 12/05/17 18:04) Unknown joint pain bacitracin [From Neosporin ([id number])] Allergy (Verified 12/05/17 18:04) Unknown rash bacitracin zinc [From Neosporin ([id number]-aqr-[id number])] Allergy (Verified 12/05/17 18:04) Unknown rash fenofibrate nanocrystallized [From Tricor] Allergy (Verified 12/05/17 18:04) Unknown upset gi or muscle pain fenofibrate,micronized [From Tricor] Allergy (Verified 12/05/17 18:04) Unknown flurbiprofen Allergy (Verified 12/05/17 18:04) Unknown upset stomach gemfibrozil Allergy (Verified 12/05/17 18:04) Unknown upset stomach glipizide [From Glucotrol] Allergy (Verified 12/05/17 18:04) Unknown dizzy, upset gi metronidazole Allergy (Verified 12/05/17 18:04) ALLERGY neomycin sulfate [From Neosporin ([id number])] Allergy (Verified 12/05/17 18:04) Unknown rash polymyxin B [From Neosporin ([id number]-aly-olybb)] Allergy (Verified 12/05/17 18:04) Unknown rash prednisolone acetate, micronized Allergy (Verified 12/05/17 18:04) ALLERGY simvastatin Allergy (Verified 12/05/17 18:04) ALLERGY tramadol [From Ultram] Allergy (Verified 12/05/17 18:04) ALLERGY pravastatin Adverse Reaction (Verified 12/05/17 18:04) Other MUSCLE PAIN Medications to take at Discharge Insulin Glargine [Lantus SoloStar Pen] 10 units SC QHS 08/26/15 glyBURIDE [Micronase] 5 mg PO DAILY@0800 08/26/15 metFORMIN HCl [Glucophage] 500 mg PO TIDCM 08/26/15 Ascorbic Acid [Vitamin C] 500 mg PO DAILY 12/09/16 Atenolol [Tenormin (beta charlie)] 50 mg PO BID 12/09/16 Cholecalciferol (Vitamin D3) [Vitamin D3] 1,000 unit PO DAILY 12/09/16 Cyanocobalamin (Vitamin B-12) [Vitamin B-12] 1,000 mcg PO DAILY 12/09/16 Multivitamin [Multiple Vitamins] 1 ea PO DAILY 12/09/16 [place]-3 Fatty Acids/Fish Oil [[place] 3 Fish Oil Softgel] 1 cap PO BID 12/09/16 Acetaminophen [Tylenol] 1,000 mg PO Q8H PRN PRN 06/10/17 Aspirin 81 mg PO DAILY 06/11/17 Amlodipine [Norvasc] 10 mg PO DAILY #30 tab 06/13/17 Lisinopril 20 mg PO DAILY 12/05/17 Magnesium Oxide [Magox 400] 400 mg PO DAILY 03/01/20 Primary Care Physician: Kelsy Mensah MD [Primary Care Provider] - Test Results: Test results from this visit will be discussed in further detail at your follow-up appointment, if applicable. Please Follow Up With: Ema Chao DPM When: 1 week after discharge
[2020-03-02 12:09] LABS: Pathologist Review Reviewed
--- NOTE | 2020-03-02 12:46 | PN_ITS ---
<Jeovanny Breaux - Last Filed: 03/02/20 12:46> Patient Problems: Active and Suspected Problems (Last Reviewed 03/02/20 @ 02:[address] Wilder Lee MD) Diabetic ankle ulcer (Acute) Cellulitis (Acute) Reason for Visit: Right ankle nonhealing wound Subjective: No pain at the affected area. Pt has significant neuropathy in her feet and feels very little. She denies any inciting trauma. She states she did not know there was any issue until yesterday when she saw blood on her sock. She states she checks her feet daily. She has no fever/chills. She has no nausea/vomiting/diarrhea. 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 Vitals/I&O's: Vital Signs Temp Pulse Resp BP Pulse Ox 99.0 F 65 18 174/49 H 93 03/02/20 08:00 03/02/20 08:00 03/02/20 08:00 03/02/20 08:00 03/02/20 08:00 Oxygen Delivery Method Room Air Weight: 163 lb Body Mass Index (BMI) 27.1 Finger Stick Blood Glucose 235 Intake and Output for Last 24 Hours 02/29/20 03/01/20 03/02/20 23:59 23:59 23:59 Intake Total 717.50 / 717.50 Output Total 250 / 250 Balance 467.50 / 467.50 General: Alert, Oriented x3, Cooperative HEENT: Atraumatic, PERRLA, EOMI, Normocephalic Neck: Supple, No JVD, Negative Carotid Bruits Lungs: Clear to auscultation, Normal air movement Cardiovascular: Regular rate, No murmurs Abdomen: Bowel Sounds Present, Soft, Non Tender Extremities: No edema, Capillary Refill Less than 3 Seconds Skin: No rashes, No breakdown, Ulcer/ Wound - right lateral ankle, black eschar, no drainage. surrounding erythema, warmth, non tender. Musculoskeletal: No Tenderness to Palpation of Joints or Extremities Neurological: Cranial nerves II-XII grossly intact Psych/Mental Status: Normal Affect, Appropriate, Alert and oriented to time, place, person, mood and affect Laboratory Results 03/01/20 23:50: WBC 12.4 H, RBC 4.47, Hgb 13.0, Hct 38.7, MCV 86.6, MCH 29.1, MCHC 33.6, RDW Std Deviation 42.5, RDW Coeff of Monique 13.4, Plt Count 202, MPV 10.6, Immature Gran % (Auto) 1.400 H, Neut % (Auto) 61.5, Lymph % (Auto) 17.1 L, [place] % (Auto) 18.4 H, Eos % (Auto) 1.3, Baso % (Auto) 0.3, Absolute Neuts (auto) 7.7, Absolute Lymphs (auto) 2.12, Nucleated RBC % 0, Differential Comment SCANNED, Diff Path Review Reviewed 03/01/20 23:50: Sodium 138, Potassium 3.8, Chloride 105, Carbon Dioxide 24.0, Anion Gap 9, BUN 26 H, Creatinine 1.32 H, Estim Creat Clear Calc 31.10, Est GFR (MDRD) Af Amer 50 L, Est GFR (MDRD) Non-Af 41 L, BUN/Creatinine Ratio 19.7, Glucose 179 H, Calcium 9.1 03/01/20 23:50: Lactic Acid 1.7 03/01/20 23:50: ESR 56 H 03/01/20 23:50: C-React Prot Ext Range 155.00 H 03/02/20 05:50: POC Glucose 190 H 03/02/20 07:42: WBC 8.8, RBC 4.19 L, Hgb 12.1, Hct 36.2 L, MCV 86.4, MCH 28.9, MCHC 33.4, RDW Std Deviation 42.5, RDW Coeff of Monique 13.4, Plt Count 200, MPV 10.7, Immature Gran % (Auto) 0.500, Neut % (Auto) 64.1, Lymph % (Auto) 15.0 L, [place] % (Auto) 18.3 H, Eos % (Auto) 1.6, Baso % (Auto) 0.5, Absolute Neuts (auto) 5.7, Absolute Lymphs (auto) 1.32, Nucleated RBC % 0, Differential Comment COMMENT 03/02/20 07:42: Sodium 138, Potassium 3.8, Chloride 107, Carbon Dioxide 24.0, Anion Gap 7, BUN 21 H, Creatinine 1.16 H, Estim Creat Clear Calc 35.39, Est GFR (MDRD) Af Amer 58 L, Est GFR (MDRD) Non-Af 48 L, BUN/Creatinine Ratio 18.1, Glucose 154 H, Calcium 8.7 03/02/20 11:26: POC Glucose 149 H Current Medications Acetaminophen (Acetaminophen 500 Mg Tablet) 1,000 mg PO Q8H PRN PRN PRN Reason: Pain Score 1-10 Amlodipine Besylate (Amlodipine 10 Mg Tablet) 10 mg PO DAILY [facility] Last Admin: 03/02/20 09:56 Dose: 10 mg Documented by: Ascorbic Acid (Ascorbic Acid 500 Mg Tablet) 500 mg PO DAILY [facility] Last Admin: 03/02/20 09:55 Dose: 500 mg Documented by: Atenolol (Atenolol 50 Mg Tablet) 50 mg PO BID [facility] Last Admin: 03/02/20 09:55 Dose: 50 mg Documented by: Cholecalciferol (Cholecalciferol (Vit D3) 1,000 Unit (25mcg)) 1,000 unit PO DAILY [facility] Last Admin: 03/02/20 09:56 Dose: 1,000 unit Documented by: Cyanocobalamin (Cyanocobalamin 500 Mcg Tablet) 1,000 mcg PO DAILY [facility] Last Admin: 03/02/20 09:56 Dose: 1,000 mcg Documented by: Dextrose (Dextrose 50%-Water 25 Gm/50 Ml Disp.Syrin) 0 gm IV X1 PRN; Protocol PRN Reason: Hypoglycemia Glucagon (Glucagon 1 Mg/Ml Syringe) 1 mg IM .X1 PRN PRN Reason: Hypoglycemia Hydralazine HCl (Hydralazine 20 Mg/Ml Vial) 5 mg IV Q4H PRN PRN PRN Reason: SBP more than 160 or DBP more than 120 Sodium Chloride () 1,000 mls @ 75 mls/hr IV .[id number] [facility] Stop: 03/02/20 15:29 Last Infusion: 03/02/20 08:00 Dose: 0 mls/hr Documented by: Vancomycin IV Pharmacy to Dose (1 ea/ Sodium Chloride) 500 mls @ 250 mls/hr IV X1 PRN; Protocol PRN Reason: Rx to Dose Piperacillin Sod/Tazobactam (Sod 3.375 gm/ Sodium Chloride) 50 mls @ 12.5 mls/hr IV Q8 [facility] Last Infusion: 03/02/20 09:54 Dose: 12.5 mls/hr Documented by: Vancomycin HCl (Vancomycin) 1,000 mg in 200 mls @ 200 mls/hr IV Q24H [facility] Insulin Glargine (Insulin Glargine 100 Units/Ml Pen) 10 units SC QHS [facility] Insulin Human Lispro (Insulin Lispro 100 Unit/Ml Insuln.Pen) 0 unit SC ACHS [facility]; Protocol Lisinopril (Lisinopril 20 Mg Tablet) 20 mg PO DAILY [facility] Last Admin: 03/02/20 09:55 Dose: 20 mg Documented by: Magnesium Chloride (Magnesium Chloride 64 Mg Delay Rel.Tablet) 128 mg PO DAILY [facility] Last Admin: 03/02/20 10:00 Dose: Not Given Documented by: Melatonin (Melatonin 3 Mg Tablet) 3 mg PO QHS PRN PRN PRN Reason: INSOMNIA Multivitamins (Multivitamins,Therapeutic Tablet) 1 tablet PO DAILYCM [facility] Last Admin: 03/02/20 09:55 Dose: 1 tablet Documented by: Ondansetron HCl (Ondansetron 4 Mg/2 Ml Vial) 4 mg IV Q8H PRN PRN PRN Reason: NAUSEA/VOMITING Senna/Docusate Sodium (Senna/Docusate Sodium 1 Tablet) 2 tablet PO BID PRN PRN PRN Reason: Constipation Sodium Chloride (0.9% Saline Lock 10 Ml Syringe) 10 - 40 ml IV UD PRN PRN Reason: SALINE FLUSH Last Admin: 03/02/20 09:55 Dose: 10 ml Documented by: Medical Necessity - Tobacco Use Smoking Status: Never smoker Assessment/Plan All Active Problems (Last Reviewed 03/02/20 @ 02:[address] Wilder Lee MD) Diabetic ankle ulcer (Acute) Cellulitis (Acute) 1. Suspected osteo right ankle - podiatry following - bedside debridement today. MRI shows possible osteo. Consult to ID. Multiple organisms in the past. Continue Vanc/Zosyn. Afebrile, leukocytosis resolved. ESR 56, CRP 155. -Complicated by DMt2, and PAD hx. -LA negative. -Blood cx pending. -wound cx pending. 2. DMt2 - held metformin, continue insulin lantus / SSI. 3. HTN - poorly controlled. 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 This patient was seen by Jeovanny Breaux PA-C under the supervision of Dr. Fields <[email or web address] E - Last Filed: 03/02/20 13:36> Vitals/I&O's: Vital Signs Temp Pulse Resp BP Pulse Ox 99.0 F 65 18 174/49 H 93 03/02/20 08:00 03/02/20 08:00 03/02/20 08:00 03/02/20 08:00 03/02/20 08:00 Oxygen Delivery Method Room Air Weight: 163 lb Body Mass Index (BMI) 27.1 Finger Stick Blood Glucose 235 Intake and Output for Last 24 Hours 02/29/20 03/01/20 03/02/20 23:59 23:59 23:59 Intake Total 717.50 / 717.50 Output Total 250 / 250 Balance 467.50 / 467.50 Laboratory Results 03/01/20 23:50: WBC 12.4 H, RBC 4.47, Hgb 13.0, Hct 38.7, MCV 86.6, MCH 29.1, MCHC 33.6, RDW Std Deviation 42.5, RDW Coeff of Monique 13.4, Plt Count 202, MPV 10.6, Immature Gran % (Auto) 1.400 H, Neut % (Auto) 61.5, Lymph % (Auto) 17.1 L, [place] % (Auto) 18.4 H, Eos % (Auto) 1.3, Baso % (Auto) 0.3, Absolute Neuts (auto) 7.7, Absolute Lymphs (auto) 2.12, Nucleated RBC % 0, Differential Comment SCANNED, Diff Path Review Reviewed 03/01/20 23:50: Sodium 138, Potassium 3.8, Chloride 105, Carbon Dioxide 24.0, Anion Gap 9, BUN 26 H, Creatinine 1.32 H, Estim Creat Clear Calc 31.10, Est GFR (MDRD) Af Amer 50 L, Est GFR (MDRD) Non-Af 41 L, BUN/Creatinine Ratio 19.7, Glucose 179 H, Calcium 9.1 03/01/20 23:50: Lactic Acid 1.7 03/01/20 23:50: ESR 56 H 03/01/20 23:50: C-React Prot Ext Range 155.00 H 03/02/20 05:50: POC Glucose 190 H 03/02/20 07:42: WBC 8.8, RBC 4.19 L, Hgb 12.1, Hct 36.2 L, MCV 86.4, MCH 28.9, MCHC 33.4, RDW Std Deviation 42.5, RDW Coeff of Monique 13.4, Plt Count 200, MPV 10.7, Immature Gran % (Auto) 0.500, Neut % (Auto) 64.1, Lymph % (Auto) 15.0 L, [place] % (Auto) 18.3 H, Eos % (Auto) 1.6, Baso % (Auto) 0.5, Absolute Neuts (auto) 5.7, Absolute Lymphs (auto) 1.32, Nucleated RBC % 0, Differential Comment COMMENT 03/02/20 07:42: Sodium 138, Potassium 3.8, Chloride 107, Carbon Dioxide 24.0, Anion Gap 7, BUN 21 H, Creatinine 1.16 H, Estim Creat Clear Calc 35.39, Est GFR (MDRD) Af Amer 58 L, Est GFR (MDRD) Non-Af 48 L, BUN/Creatinine Ratio 18.1, Glucose 154 H, Calcium 8.7 03/02/20 11:26: POC Glucose 149 H Current Medications Acetaminophen (Acetaminophen 500 Mg Tablet) 1,000 mg PO Q8H PRN PRN PRN Reason: Pain Score 1-10 Last Admin: 03/02/20 13:14 Dose: 1,000 mg Documented by: Amlodipine Besylate (Amlodipine 10 Mg Tablet) 10 mg PO DAILY [facility] Last Admin: 03/02/20 09:56 Dose: 10 mg Documented by: Ascorbic Acid (Ascorbic Acid 500 Mg Tablet) 500 mg PO DAILY [facility] Last Admin: 03/02/20 09:55 Dose: 500 mg Documented by: Atenolol (Atenolol 50 Mg Tablet) 50 mg PO BID [facility] Last Admin: 03/02/20 09:55 Dose: 50 mg Documented by: Cholecalciferol (Cholecalciferol (Vit D3) 1,000 Unit (25mcg)) 1,000 unit PO DAILY [facility] Last Admin: 03/02/20 09:56 Dose: 1,000 unit Documented by: Cyanocobalamin (Cyanocobalamin 500 Mcg Tablet) 1,000 mcg PO DAILY [facility] Last Admin: 03/02/20 09:56 Dose: 1,000 mcg Documented by: Dextrose (Dextrose 50%-Water 25 Gm/50 Ml Disp.Syrin) 0 gm IV X1 PRN; Protocol PRN Reason: Hypoglycemia Glucagon (Glucagon 1 Mg/Ml Syringe) 1 mg IM .X1 PRN PRN Reason: Hypoglycemia Heparin Sodium (Porcine) (Heparin Injection (Vial) 5,000 Unit/Ml Vial) 5,000 unit SC Q12 [facility] Hydralazine HCl (Hydralazine 20 Mg/Ml Vial) 5 mg IV Q4H PRN PRN PRN Reason: SBP more than 160 or DBP more than 120 Vancomycin IV Pharmacy to Dose (1 ea/ Sodium Chloride) 500 mls @ 250 mls/hr IV X1 PRN; Protocol PRN Reason: Rx to Dose Piperacillin Sod/Tazobactam (Sod 3.375 gm/ Sodium Chloride) 50 mls @ 12.5 mls/hr IV Q8 [facility] Last Infusion: 03/02/20 09:54 Dose: 12.5 mls/hr Documented by: Vancomycin HCl (Vancomycin) 1,000 mg in 200 mls @ 200 mls/hr IV Q24H [facility] Insulin Glargine (Insulin Glargine 100 Units/Ml Pen) 10 units SC QHS [facility] Insulin Human Lispro (Insulin Lispro 100 Unit/Ml Insuln.Pen) 0 unit SC ACHS [facility]; Protocol Lisinopril (Lisinopril 20 Mg Tablet) 40 mg PO DAILY [facility] Magnesium Chloride (Magnesium Chloride 64 Mg Delay Rel.Tablet) 128 mg PO DAILY [facility] Last Admin: 03/02/20 10:00 Dose: Not Given Documented by: Melatonin (Melatonin 3 Mg Tablet) 3 mg PO QHS PRN PRN PRN Reason: INSOMNIA [facility]ivit[facility] ([facility]) [facility] Last Admin: 03/02/20 09:55 Dose: 1 tablet Documented by: Ondansetron HCl (Ondansetron 4 Mg/2 Ml Vial) 4 mg IV Q8H PRN PRN PRN Reason: NAUSEA/VOMITING Senna/Docusate Sodium (Senna/Docusate Sodium 1 Tablet) 2 tablet PO BID PRN PRN PRN Reason: Constipation Sodium Chloride (0.9% Saline Lock 10 Ml Syringe) 10 - 40 ml IV UD PRN PRN Reason: SALINE FLUSH Last Admin: 03/02/20 09:55 Dose: 10 ml Documented by: Assessment/Plan Hospitalist note: I am seeing this patient in conjunction with eJovanny Breaux. I independently seen and examined the patient. Progress note above, laboratory data and imaging studies reviewed and I concur with above treatment plan. Today, patient denied any pain of her right ankle. Denied fever or chills. Blood pressure slight elevated, other vital signs were stable. - Physical Exam General: Alert, Oriented x3, Cooperative, No apparent distress. HEENT: Atraumatic, PERRLA, EOMI. Neck: Supple, No JVD, Negative Carotid Bruits, Trachea Midline, Thyroid Normal. Lungs: Clear to auscultation, Normal air movement, No rhonchi, No wheeze, No rales. Cardiovascular: Regular rate, Regular Rhythm, Normal S1, Normal S2, PMI Normal. Abdomen: Bowel Sounds Present, Soft, Non Tender, Non-Distended, No Hepato- splenomegaly. Extremities: No clubbing, No cyanosis, No edema Skin: No rashes. Right ankle: Blackish care on the lateral aspect of the right ankle, dry, surrounded by mild erythema, no drainage. Neurological: Cranial nerves are intact, neuro grossly intact Assessment and plan: #1 suspected osteomyelitis of the right lateral ankle/cellulitis: Status post bedside debridement. MRI reviewed, possible osteomyelitis. She is on IV vancomycin and Zosyn. She has been afebrile, leukocytosis resolved. Blood and wound cultures pending. Podiatry medicine evaluated the patient recommended no plan for intervention source at this time apart from bedside debridement. Infectious disease consulted. Plan to continue same treatment. #2 other chronic medical problems: Stable, continue current medications as above. This note was generated with [employer] dictation software. It may contain incorrect words, spelling, and punctuation that were not noted in checking the note before signing. Inpatient E&M: 43766 Subs Hosp L2
[2020-03-02] MEDS: Acetaminophen 500 MG Tablet 1000 MG PO (13:14)
[2020-03-02] MEDS: Furosemide 20 MG Tablet PO (15:03)
--- NOTE | 2020-03-02 16:05 | RAD_ITS ---
STUDY: X-RAY CHEST REASON FOR EXAM: Female, 79 years old. Shortness of breath. TECHNIQUE: Single AP portable view of the chest. COMPARISON: Chest, 12/10/2017. FINDINGS: The lungs are well expanded and there is vague ground glass infiltrate in the left perihilar region. The lungs are otherwise unchanged There is no demonstrated pleural abnormality. Sternal cerclage wires are present from a prior sternotomy. The heart is borderline enlarged. Normal mediastinum and pavel. Normal visualized pulmonary arteries. There is atherosclerotic calcification of the aortic arch with tortuosity. No visualized osseous changes. There is no demonstrated abnormality of the visualized soft tissue structures of the upper abdomen. RAD/Chest 1 View (Portable) IMPRESSION: 1. Question left perihilar infiltrate. 2. Borderline cardiomegaly with evidence of median sternotomy. This is unchanged. Electronically Signed: Kalia Rosado DO at 16:47 EST Tel [phone], Service support ,
[2020-03-02] MEDS: Furosemide 40 MG/4 ML Vial IV (16:42)
[2020-03-02 16:55] LABS: BNP,B-Type NATRIURETIC PEPTIDE 675.2 pg/mL (0-100)
[2020-03-02 17:01] LABS: Bedside Glucose 228 mg/dL (70-110)
[2020-03-02] MEDS: Insulin Lispro 100 UNIT/ML INSULN.PEN SC ×2 (17:01→22:05)
[2020-03-02] MEDS: Heparin Injection (Vial) 5,000 UNIT/ML VIAL 5000 UNIT SC (20:45)
[2020-03-02 22:11] LABS: Bedside Glucose 383 mg/dL (70-110)
[2020-03-03] VITALS (8 sets, daily range): BP systolic 154–159; BP diastolic 55–61; PULSE 57–69; RESP 18; TEMP 36.3–37.8; O2SAT 86–94
[2020-03-03] MEDS: Vancomycin IV 1,000 MG/200 ML BAG 200 MG IV (01:21)
[2020-03-03] MEDS: Acetaminophen 500 MG Tablet 1000 MG PO (01:23)
[2020-03-03] MEDS: Insulin Lispro 100 UNIT/ML INSULN.PEN SC ×4 (06:37→20:59)
[2020-03-03 06:41] LABS: Bedside Glucose 223 mg/dL (70-110)
[2020-03-03 07:10] LABS: Absolute Lymphocyte Count 2.02 X10^3/uL (0.83-4.51); Absolute Neutrophil Count 7.3 X10^3/uL (2.0-7.7); Basophil# 0.06 X10^3/uL; Basophil% 0.5 % (0-1); Eosinophil# 0.17 X10^3/uL; Eosinophils% 1.5 % (0-5); Hematocrit 38.7 % (37-47); Hemoglobin 13.1 g/dL (12.0-15.0); Lymphocyte # 2.02 X10^3/ul (4.0); Lymphocyte % 18.1 % (19-41); Mean Corp Hgb Conc 33.9 g/dL (32-36); Mean Corpuscular Hgb 29.4 pg (27.0-32.0); Mean Corpuscular Volume 86.8 fL (81-99); Mean Platelet Vol. 10.5 fl (6.2-12.0); Monocyte# 1.51 X10^3/uL; Monocyte% 13.5 % (0-10); NRBC Flagged by Analyzer 0 % (0-5); Neutrophil # 7.32 X10^3/uL (2.7-7.7); Neutrophil % 65.7 % (47-70); POSITIVE DIFFERENTIAL YES; Platelet Count 219 K/mm3 (150-450); RBC Distribution Width CV 13.2 % (11.6-14.6); RBC Distribution Width SD 41.4 fl (35.1-43.9); Red Blood Count 4.46 M/mm3 (4.2-5.4); White Blood Count 11.2 K/mm3 (4.4-11.0)
[2020-03-03 07:14] LABS: Differential Indicated SCAN CRITERIA MET
[2020-03-03 07:35] LABS: Anion Gap 7 (5-15); BUN 24 mg/dL (7-18); Calcium,Total 8.8 mg/dL (8.5-10.1); Chloride 106 mmol/L (98-107); EST Glomerular Filtration Rate 36 mL/min (>60); Est Glom Filt Rate - Afr Amer 43 mL/min (>60); Estimated Creatinine Clearance 27.37 ml/min; Glucose 217 mg/dL (74-106); Potassium 3.6 mmol/L (3.5-5.1); Sodium Level 138 mmol/L (136-145)
[2020-03-03 07:44] LABS: Differential Comment SCANNED
[2020-03-03] MEDS: Ascorbic Acid 500 MG Tablet PO (09:00)
[2020-03-03] MEDS: Heparin Injection (Vial) 5,000 UNIT/ML VIAL 5000 UNIT SC ×2 (09:00→20:59)
[2020-03-03] MEDS: Atenolol 50 MG Tablet PO ×2 (09:00→20:58)
[2020-03-03] MEDS: Magnesium Chloride 64 MG Delay Rel.Tablet 128 MG PO (09:00)
[2020-03-03] MEDS: amLODIPine 10 MG Tablet PO (09:00)
[2020-03-03] MEDS: Multivitamins,Therapeutic Tablet 1 TABLET PO (09:00)
[2020-03-03] MEDS: Cyanocobalamin 500 MCG Tablet 1000 MCG PO (09:00)
[2020-03-03] MEDS: Lisinopril 40 MG Tablet PO (09:00)
[2020-03-03] MEDS: Furosemide 40 MG/4 ML Vial IV (09:01)
[2020-03-03 10:55] LABS: Bedside Glucose 211 mg/dL (70-110)
--- NOTE | 2020-03-03 12:39 | PN_ITS ---
Patient Problems: Active and Suspected Problems (Last Reviewed 03/02/20 @ 02:[address] Wilder Lee MD) Diabetic ankle ulcer (Acute) Cellulitis (Acute) Subjective: Patient seen and examined bedside. Patient resting comfortably brushing her hair. Patient denies any N/F/V/C/CP/SOB. Patient states her ankle feels better. - Physical Exam Vitals/I&O's: Vital Signs Temp Pulse Resp BP Pulse Ox 97.4 F L 61 18 156/57 H 94 03/03/20 08:53 03/03/20 08:53 03/03/20 08:53 03/03/20 08:53 03/03/20 08:53 Oxygen Flow Rate (L/min) 2 Oxygen Delivery Method Nasal Cannula Weight: 73.936 kg Body Mass Index (BMI) 27.1 Finger Stick Blood Glucose 235 Intake and Output for Last 24 Hours 03/01/20 03/02/20 03/03/20 23:59 23:59 23:59 Intake Total 1066.25 / 1316.25 550 / 550 Output Total 950 / 2800 2250 / 2250 Balance 116.25 / -1483.75 -1700 / -1700 General: Alert, Oriented x3 HEENT: Atraumatic Extremities: No clubbing, No cyanosis, Capillary Refill Less than 3 Seconds, No Calf Tenderness, Diminished Peripheral Pulses, Edema - chronic, right worse than left Skin: Ulcer/ Wound - right lateral wound, predebridement measures 1.0x0.3x1cm, post debridement 2x2x1.1cm. Tendon exposed. Doesn't probe to bone, probes to capsule. Mild serous drainage. No purulence. Erythema resolved. No pain to palpation. 50/50 fibrous/granular. Patient has chronic edema b/l LE Musculoskeletal: No Tenderness to Palpation of Joints or Extremities Neurological: - - absent light touch sensation Psych/Mental Status: Normal Affect, Appropriate, Alert and oriented to time, place, person, mood and affect Microbiology Past 72 Hours 03/02/20 11:00 Cyst - Ankle Gram Stain - Final Laboratory Results 03/02/20 07:42: B-Natriuretic Peptide 675.2 H 03/02/20 16:46: POC Glucose 228 H 03/02/20 22:02: POC Glucose 383 H 03/03/20 06:36: POC Glucose 223 H 03/03/20 06:58: WBC 11.2 H, RBC 4.46, Hgb 13.1, Hct 38.7, MCV 86.8, MCH 29.4, MCHC 33.9, RDW Std Deviation 41.4, RDW Coeff of Monique 13.2, Plt Count 219, MPV 10.5, Immature Gran % (Auto) 0.700, Neut % (Auto) 65.7, Lymph % (Auto) 18.1 L, [place] % (Auto) 13.5 H, Eos % (Auto) 1.5, Baso % (Auto) 0.5, Absolute Neuts (auto) 7.3, Absolute Lymphs (auto) 2.02, Nucleated RBC % 0, Differential Comment SCANNED, Diff Path Review July03/03/20 06:58: Sodium 138, Potassium 3.6, Chloride 106, Carbon Dioxide 25.0, Anion Gap 7, BUN 24 H, Creatinine 1.50 H, Estim Creat Clear Calc 27.37, Est GFR (MDRD) Af Amer 43 L, Est GFR (MDRD) Non-Af 36 L, BUN/Creatinine Ratio 16.0, Glucose 217 H, Calcium 8.8 03/03/20 10:50: POC Glucose 211 H Current Medications Acetaminophen (Acetaminophen 500 Mg Tablet) 1,000 mg PO Q8H PRN PRN PRN Reason: Pain Score 1-10 Last Admin: 03/03/20 01:23 Dose: 1,000 mg Documented by: Amlodipine Besylate (Amlodipine 10 Mg Tablet) 10 mg PO DAILY [facility] Last Admin: 03/03/20 09:00 Dose: 10 mg Documented by: Ascorbic Acid (Ascorbic Acid 500 Mg Tablet) 500 mg PO DAILY [facility] Last Admin: 03/03/20 09:00 Dose: 500 mg Documented by: Atenolol (Atenolol 50 Mg Tablet) 50 mg PO BID [facility] Last Admin: 03/03/20 09:00 Dose: 50 mg Documented by: Cholecalciferol (Cholecalciferol (Vit D3) 1,000 Unit (25mcg)) 1,000 unit PO DAILY [facility] Last Admin: 03/03/20 09:00 Dose: 1,000 unit Documented by: Cyanocobalamin (Cyanocobalamin 500 Mcg Tablet) 1,000 mcg PO DAILY [facility] Last Admin: 03/03/20 09:00 Dose: 1,000 mcg Documented by: Dextrose (Dextrose 50%-Water 25 Gm/50 Ml Disp.Syrin) 0 gm IV X1 PRN; Protocol PRN Reason: Hypoglycemia Furosemide (Furosemide 40 Mg/4 Ml Vial) 40 mg IV BID@1000,1800 [facility] Last Admin: 03/03/20 09:01 Dose: 40 mg Documented by: Glucagon (Glucagon 1 Mg/Ml Syringe) 1 mg IM .X1 PRN PRN Reason: Hypoglycemia Heparin Sodium (Porcine) (Heparin Injection (Vial) 5,000 Unit/Ml Vial) 5,000 unit SC Q12 [facility] Last Admin: 03/03/20 09:00 Dose: 5,000 unit Documented by: Hydralazine HCl (Hydralazine 20 Mg/Ml Vial) 5 mg IV Q4H PRN PRN PRN Reason: SBP more than 160 or DBP more than 120 Vancomycin IV Pharmacy to Dose (1 ea/ Sodium Chloride) 500 mls @ 250 mls/hr IV X1 PRN; Protocol PRN Reason: Rx to Dose Piperacillin Sod/Tazobactam (Sod 3.375 gm/ Sodium Chloride) 50 mls @ 12.5 mls/hr IV Q8 [facility] Last Infusion: 03/03/20 10:33 Dose: Infused Documented by: Vancomycin HCl (Vancomycin) 1,000 mg in 200 mls @ 200 mls/hr IV Q24H [facility] Last Infusion: 03/03/20 02:21 Dose: Infused Documented by: Insulin Glargine (Insulin Glargine 100 Units/Ml Pen) 10 units SC QHS [facility] Last Admin: 03/02/20 22:03 Dose: 10 u Documented by: Insulin Human Lispro (Insulin Lispro 100 Unit/Ml Insuln.Pen) 0 unit SC ACHS [facility]; Protocol Last Admin: 03/03/20 11:52 Dose: 2 units Documented by: Lisinopril (Lisinopril 40 Mg Tablet) 40 mg PO DAILY [facility] Last Admin: 03/03/20 09:00 Dose: 40 mg Documented by: Magnesium Chloride (Magnesium Chloride 64 Mg Delay Rel.Tablet) 128 mg PO DAILY [facility] Last Admin: 03/03/20 09:00 Dose: 128 mg Documented by: Melatonin (Melatonin 3 Mg Tablet) 3 mg PO QHS PRN PRN PRN Reason: INSOMNIA Multivitamins (Multivitamins,Therapeutic Tablet) 1 tablet PO DAILYCM [facility] Last Admin: 03/03/20 09:00 Dose: 1 tablet Documented by: Ondansetron HCl (Ondansetron 4 Mg/2 Ml Vial) 4 mg IV Q8H PRN PRN PRN Reason: NAUSEA/VOMITING Senna/Docusate Sodium (Senna/Docusate Sodium 1 Tablet) 2 tablet PO BID PRN PRN PRN Reason: Constipation Sodium Chloride (0.9% Saline Lock 10 Ml Syringe) 10 - 40 ml IV UD PRN PRN Reason: SALINE FLUSH Last Admin: 03/02/20 09:55 Dose: 10 ml Documented by: Medical Necessity - Tobacco Use Smoking Status: Never smoker Assessment/Plan All Active Problems (Last Reviewed 03/02/20 @ 02:[address] Wilder Lee MD) Diabetic ankle ulcer (Acute) Cellulitis (Acute) Right ankle ulcer Ganglion cyst right lateral ankle Cellulitis right lower extremity Charcot foot deformity right foot Diabetes with neuropathy Patient seen and examined at bedside Patient was noted to have fluctuant mass over the lateral aspect of her right ankle with surrounding erythema Patient states that this has been there within the last 24 hours Patient denies any pain if she has complete neuropathy to her feet and ankles MRI was reviewed showing possible cyst or abscess to the lateral right ankle as well as a deltoid tear calcaneal cyst and decreased signal at the peripheral lateral malleolus X-ray was also reviewed showing soft tissue swelling and and Charcot deformity Labs were reviewed showing initial leukocytosis upon admission which has since resolved Sharp excisional nonselective debridement of right lateral ankle into the level of fat was performed with a #15 blade, pick ups and currette. I removed fibrous, devitalized biolfim and slough. This was tolerated due to patient's neuropathy. This was done without incident. Tendons are visible. Measurements in objective. Continue daily dressing changes Site was dressed with 1/4 inch plain packing, Aquacel silver, 4 x 4's ABD Kerlix and Colten wrap. Colten should go from toes to knee to help with edema Wound doesn't probe to bone and no abscess seen, wound goes to capsule, wound palpated through capsule feels hard, low suspicion of OM Will follow results from bedside procedure Discussed with the patient that it will be importance to relieve pressure from this area. Patient states that she typically sleeps on her right side. I would discouraged her from sleeping this way and if it is unavoidable to consider getting a donut pad to offload the area when on her side. Discussed that the pressure will slow down the healing Patient states that she bleeds easily will need to watch to make sure no hematoma develops into the void from the cyst deficit Weightbearing as tolerated, would recommend decreasing activity level to allow better healing Ok to DC per podiatry Please call if any questions or concerns arise
--- NOTE | 2020-03-03 14:40 | PN_ITS ---
Patient Problems: Active and Suspected Problems (Last Reviewed 03/02/20 @ 02:[address] Wilder Lee MD) Diabetic ankle ulcer (Acute) Cellulitis (Acute) Subjective: Chief complaint: Follow-up after admission for diabetic right ankle ulcer, low suspicion for osteomyelitis, hypoxia. Patient seen and examined. No acute events overnight. She was put on oxygen since yesterday evening and now, she is on 3 L. She denied worsening shortness of breath than usual. She mentioned that at 1 time about 1 year ago, she was given oxygen to go with from the hospital but she used it only once or twice. She denied any worsening shortness of breath he denied cough or sputum production. She was taken off oxygen and her oxygen dropped down to 86%. She was given IV Lasix for possible volume overload. Chest x-ray done and read as questionable left behind infiltrate which I doubt. Patient has been afebrile, blood pressure and heart rate are stable, pulse ox is 94% on 2 L now. - Physical Exam Vitals/I&O's: Vital Signs Temp Pulse Resp BP Pulse Ox 98.5 F 67 18 158/55 H 94 03/03/20 14:34 03/03/20 14:34 03/03/20 14:34 03/03/20 14:34 03/03/20 14:34 Oxygen Flow Rate (L/min) 2 Oxygen Delivery Method Nasal Cannula Weight: 163 lb 0.016 oz Body Mass Index (BMI) 27.1 Finger Stick Blood Glucose 235 Intake and Output for Last 24 Hours 03/01/20 03/02/20 03/03/20 23:59 23:59 23:59 Intake Total 1066.25 / 1316.25 550 / 550 Output Total 950 / 2800 2250 / 2250 Balance 116.25 / -1483.75 -1700 / -1700 General: Alert, Oriented x3, Cooperative, No apparent distress HEENT: Atraumatic, PERRLA, EOMI, Normocephalic Oral: Moist Mucosa, No Gingival or Mucosal Lesions/ Ulcerations Neck: Supple, No JVD, Negative Carotid Bruits, Trachea Midline, Thyroid Normal Size and Texture Lungs: No rhonchi, No wheeze, No rales, Diminished, - - Decreased breath sounds bilateral, otherwise clear. Cardiovascular: Regular rate, Regular Rhythm, Normal S1, Normal S2, PMI Normal Abdomen: Bowel Sounds Present, Soft, Non Tender, Non-Distended, No Hepato- splenomegaly Extremities: No clubbing, No cyanosis, No edema Skin: No rashes, Ulcer/ Wound Lymphatic: No Cervical, Supraclavicular, or Inguinal Adenopathy Neurological: Cranial nerves II-XII grossly intact, Neuro grossly intact Psych/Mental Status: Normal Affect, Appropriate, Alert and oriented to time, place, person, mood and affect Microbiology Past 72 Hours 03/02/20 11:00 Cyst - Ankle Gram Stain - Final 03/02/20 11:00 Cyst - Ankle Wound Culture - Preliminary Staphylococcus aureus Streptococcus agalactiae (B) Laboratory Results 03/02/20 07:42: B-Natriuretic Peptide 675.2 H 03/02/20 16:46: POC Glucose 228 H 03/02/20 22:02: POC Glucose 383 H 03/03/20 06:36: POC Glucose 223 H 03/03/20 06:58: WBC 11.2 H, RBC 4.46, Hgb 13.1, Hct 38.7, MCV 86.8, MCH 29.4, MCHC 33.9, RDW Std Deviation 41.4, RDW Coeff of Monique 13.2, Plt Count 219, MPV 10.5, Immature Gran % (Auto) 0.700, Neut % (Auto) 65.7, Lymph % (Auto) 18.1 L, [place] % (Auto) 13.5 H, Eos % (Auto) 1.5, Baso % (Auto) 0.5, Absolute Neuts (auto) 7.3, Absolute Lymphs (auto) 2.02, Nucleated RBC % 0, Differential Comment SCANNED, Diff Path Review July03/03/20 06:58: Sodium 138, Potassium 3.6, Chloride 106, Carbon Dioxide 25.0, Anion Gap 7, BUN 24 H, Creatinine 1.50 H, Estim Creat Clear Calc 27.37, Est GFR (MDRD) Af Amer 43 L, Est GFR (MDRD) Non-Af 36 L, BUN/Creatinine Ratio 16.0, Glucose 217 H, Calcium 8.8 03/03/20 10:50: POC Glucose 211 H Current Medications Acetaminophen (Acetaminophen 500 Mg Tablet) 1,000 mg PO Q8H PRN PRN PRN Reason: Pain Score 1-10 Last Admin: 03/03/20 01:23 Dose: 1,000 mg Documented by: Amlodipine Besylate (Amlodipine 10 Mg Tablet) 10 mg PO DAILY [facility] Last Admin: 03/03/20 09:00 Dose: 10 mg Documented by: Ascorbic Acid (Ascorbic Acid 500 Mg Tablet) 500 mg PO DAILY [facility] Last Admin: 03/03/20 09:00 Dose: 500 mg Documented by: Atenolol (Atenolol 50 Mg Tablet) 50 mg PO BID [facility] Last Admin: 03/03/20 09:00 Dose: 50 mg Documented by: Cholecalciferol (Cholecalciferol (Vit D3) 1,000 Unit (25mcg)) 1,000 unit PO DAILY [facility] Last Admin: 03/03/20 09:00 Dose: 1,000 unit Documented by: Cyanocobalamin (Cyanocobalamin 500 Mcg Tablet) 1,000 mcg PO DAILY [facility] Last Admin: 03/03/20 09:00 Dose: 1,000 mcg Documented by: Dextrose (Dextrose 50%-Water 25 Gm/50 Ml Disp.Syrin) 0 gm IV X1 PRN; Protocol PRN Reason: Hypoglycemia Furosemide (Furosemide 40 Mg/4 Ml Vial) 40 mg IV BID@1000,1800 [facility] Last Admin: 03/03/20 09:01 Dose: 40 mg Documented by: Glucagon (Glucagon 1 Mg/Ml Syringe) 1 mg IM .X1 PRN PRN Reason: Hypoglycemia Heparin Sodium (Porcine) (Heparin Injection (Vial) 5,000 Unit/Ml Vial) 5,000 unit SC Q12 [facility] Last Admin: 03/03/20 09:00 Dose: 5,000 unit Documented by: Hydralazine HCl (Hydralazine 20 Mg/Ml Vial) 5 mg IV Q4H PRN PRN PRN Reason: SBP more than 160 or DBP more than 120 Insulin Glargine (Insulin Glargine 100 Units/Ml Pen) 10 units SC QHS [facility] Last Admin: 03/02/20 22:03 Dose: 10 u Documented by: Insulin Human Lispro (Insulin Lispro 100 Unit/Ml Insuln.Pen) 0 unit SC ACHS [facility]; Protocol Last Admin: 03/03/20 11:52 Dose: 2 units Documented by: Lisinopril (Lisinopril 40 Mg Tablet) 40 mg PO DAILY [facility] Last Admin: 03/03/20 09:00 Dose: 40 mg Documented by: Magnesium Chloride (Magnesium Chloride 64 Mg Delay Rel.Tablet) 128 mg PO DAILY [facility] Last Admin: 03/03/20 09:00 Dose: 128 mg Documented by: Melatonin (Melatonin 3 Mg Tablet) 3 mg PO QHS PRN PRN PRN Reason: INSOMNIA Multivitamins (Multivitamins,Therapeutic Tablet) 1 tablet PO DAILYCM [facility] Last Admin: 03/03/20 09:00 Dose: 1 tablet Documented by: Ondansetron HCl (Ondansetron 4 Mg/2 Ml Vial) 4 mg IV Q8H PRN PRN PRN Reason: NAUSEA/VOMITING Senna/Docusate Sodium (Senna/Docusate Sodium 1 Tablet) 2 tablet PO BID PRN PRN PRN Reason: Constipation Sodium Chloride (0.9% Saline Lock 10 Ml Syringe) 10 - 40 ml IV UD PRN PRN Reason: SALINE FLUSH Last Admin: 03/02/20 09:55 Dose: 10 ml Documented by: Medical Necessity - Tobacco Use Smoking Status: Never smoker Assessment/Plan All Active Problems (Last Reviewed 03/02/20 @ 02:[address] Wilder Lee MD) Diabetic ankle ulcer (Acute) Cellulitis (Acute) This is a 79 years old female patient presented to the emergency room because of right ankle wound and she was admitted for possible osteomyelitis and she developed hypoxia. #1 diabetic right lateral ankle ulcer with possible surrounding mild cellulitis/low suspicion for osteomyelitis: Status post bedside debridement. MRI reviewed, possible osteomyelitis. She is on IV vancomycin and Zosyn. She has been afebrile, leukocytosis resolved. Wound culture revealed staph aureus, final is pending. Blood cultures pending. Podiatry medicine and infectious disease on the case. Her vital signs are stable, afebrile. Decision was made to stop the antibiotic as per ID. Plan to monitor, anticipate discharge home tomorrow. #2 hypoxia: Overnight, patient required oxygen although she denied worsening shortness of breath. Now, she is on 2 L. Chest x-ray revealed questionable right behind infiltrate which I doubt, I doubt pneumonia. Patient denied cough or sputum production. She received couple dose of IV Lasix for possible volume overload. Plan: Repeat chest x-ray tomorrow, wean off oxygen as tolerated, repeat CBC and BMP tomorrow morning, encourage incentive spirometer. #3 type 2 diabetes mellitus: Blood sugar has been fluctuating. She is on Lantus, sliding scale, glyburide held. #4 stage III chronic kidney disease: Baseline creatinine has been around 1.2 to 1.5 mg/dL. Creatinine went up to 1.5 today, it was 1.1 yesterday. This is because of IV Lasix. Plan to stop IV Lasix, repeat BMP tomorrow morning. #5 hypertension: Blood pressures in the higher side, patient is anxious being in the hospital. Continue with Norvasc, lisinopril and atenolol, p.o. Lasix. Hydralazine as needed #6 peripheral vascular disease: Continue aspirin. #7 DVT prophylaxis: Subcu heparin. This note was generated with [employer] dictation software. It may contain incorrect words, spelling, and punctuation that were not noted in checking the note before signing. Inpatient E&M: 38909 Subs Hosp L2
--- NOTE | 2020-03-03 15:56 | PCM.HP.ID ---
Problem List (1) Diabetic ankle ulcer Status: Acute Reason for Consult: osteo Consulted by: Dr. Fields History of Present Illness: The patient is a 79 year old F with DM, presented with several days R ankle wound with some redness and swelling. No fever, no recent abx. Came to ED, imaging done, started on vanc/zosyn, seen by podiatry and debridement done. Feeling ok today. Full ROS performed and neg except as noted above. - Medical History Past Medical History (Chronic Problems): Chronic Problems (Last Reviewed 03/02/20 @ 02:[address] Wilder Lee MD) CKD (chronic kidney disease), stage III (Chronic) CAD (coronary artery disease) (Chronic) Osteoarthritis (Chronic) CKD (chronic kidney disease) (Chronic) History of MRSA infection (Chronic) Osteomyelitis of left foot (Chronic) Hypertension (Chronic) Peripheral arterial disease (Chronic) Type 2 diabetes mellitus (Chronic) Rheumatoid arthritis (Chronic) Allergies/Adverse Reactions: Allergies adhesive Allergy (Verified 12/05/17 18:04) Unknown red skin, uses paper tape and is okay with this atorvastatin calcium [From Lipitor] Allergy (Verified 12/05/17 18:04) Unknown joint pain bacitracin [From Neosporin ([id number])] Allergy (Verified 12/05/17 18:04) Unknown rash bacitracin zinc [From Neosporin ([id number])] Allergy (Verified 12/05/17 18:04) Unknown rash fenofibrate nanocrystallized [From Tricor] Allergy (Verified 12/05/17 18:04) Unknown upset gi or muscle pain fenofibrate,micronized [From Tricor] Allergy (Verified 12/05/17 18:04) Unknown flurbiprofen Allergy (Verified 12/05/17 18:04) Unknown upset stomach gemfibrozil Allergy (Verified 12/05/17 18:04) Unknown upset stomach glipizide [From Glucotrol] Allergy (Verified 12/05/17 18:04) Unknown dizzy, upset gi metronidazole Allergy (Verified 12/05/17 18:04) ALLERGY neomycin sulfate [From Neosporin ([id number])] Allergy (Verified 12/05/17 18:04) Unknown rash polymyxin B [From Neosporin ([id number])] Allergy (Verified 12/05/17 18:04) Unknown rash prednisolone acetate, micronized Allergy (Verified 12/05/17 18:04) ALLERGY simvastatin Allergy (Verified 12/05/17 18:04) ALLERGY tramadol [From Ultram] Allergy (Verified 12/05/17 18:04) ALLERGY pravastatin Adverse Reaction (Verified 12/05/17 18:04) Other MUSCLE PAIN Home Medications: Ambulatory Orders Medication Instructions Recorded Insulin Glargine [Lantus SoloStar 10 units SC QHS 08/26/15 Pen] glyBURIDE [Micronase] 5 mg PO DAILY@0800 08/26/15 metFORMIN HCl [Glucophage] 500 mg PO TIDCM 08/26/15 Ascorbic Acid [Vitamin C] 500 mg PO DAILY 12/09/16 Atenolol [Tenormin (beta charlie)] 50 mg PO BID 12/09/16 Cholecalciferol (Vitamin D3) 1,000 unit PO DAILY 12/09/16 [Vitamin D3] Cyanocobalamin (Vitamin B-12) 1,000 mcg PO DAILY 12/09/16 [Vitamin B-12] Multivitamin [Multiple Vitamins] 1 ea PO DAILY 12/09/16 [place]-3 Fatty Acids/Fish Oil 1 cap PO BID 12/09/16 [[place] 3 Fish Oil Softgel] Acetaminophen [Tylenol] 1,000 mg PO Q8H PRN PRN 06/10/17 Aspirin 81 mg PO DAILY 06/11/17 Amlodipine [Norvasc] 10 mg PO DAILY #30 tab 06/13/17 Lisinopril 20 mg PO DAILY 12/05/17 Magnesium Oxide [Magox 400] 400 mg PO DAILY 03/01/20 Furosemide [Lasix] 20 mg PO QODAY 03/02/20 - Social History Tobacco Use: non-smoker Vital Signs Temp Pulse Resp BP Pulse Ox 98.5 F 67 18 158/55 H 94 03/03/20 14:34 03/03/20 14:34 03/03/20 14:34 03/03/20 14:34 03/03/20 14:34 Oxygen Flow Rate (L/min) 2 Oxygen Delivery Method Nasal Cannula Weight: 73.936 kg Body Mass Index (BMI) 27.1 Finger Stick Blood Glucose 235 Microbiology Past 72 Hours 03/02/20 11:00 Gram Stain - Final Cyst - Ankle Wound Culture - Preliminary Staphylococcus aureus Streptococcus agalactiae (B) Laboratory Tests Past 24 Hrs 03/02/20 03/03/20 03/03/20 07:42 06:58 06:58 WBC 11.2 H RBC 4.46 Hgb 13.1 Hct 38.7 MCV 86.8 MCH 29.4 MCHC 33.9 RDW Std Deviation 41.4 RDW Coeff of Monique 13.2 Plt Count 219 MPV 10.5 Immature Gran % (Auto) 0.700 Neut % (Auto) 65.7 Lymph % (Auto) 18.1 L [place] % (Auto) 13.5 H Eos % (Auto) 1.5 Baso % (Auto) 0.5 Absolute Neuts (auto) 7.3 Absolute Lymphs (auto) 2.02 Nucleated RBC % 0 Differential Comment SCANNED Diff Path Review May foll Sodium 138 Potassium 3.6 Chloride 106 Carbon Dioxide 25.0 Anion Gap 7 BUN 24 H Creatinine 1.50 H Estim Creat Clear Calc 27.37 Est GFR (MDRD) Af Amer 43 L Est GFR (MDRD) Non-Af 36 L BUN/Creatinine Ratio 16.0 Glucose 217 H Calcium 8.8 B-Natriuretic Peptide 675.2 H - Other Studies Radiology: [] reviewed Other Studies: [] Route of nutrition/ use of supplements: [] Nutritional Intake: [] IV Site: [] Mosher Catheter: [] - Physical Exam General: Alert, Oriented x3, Cooperative, No apparent distress HEENT: Atraumatic, PERRLA, EOMI Neck: Supple, No Nodes Lungs: Clear to auscultation, Normal air movement Cardiovascular: Regular rate, Regular Rhythm Abdomen: Soft, Non Tender, Non-Distended Extremities: No edema Skin: Ulcer/ Wound - R ankle wrapped IV Site: Peripheral, without redness Musculoskeletal: No Tenderness to Palpation of Joints or Extremities Neurological: Cranial nerves II-XII grossly intact - Assessment/Plan Antibiotics: [] Assessment/Plan: [] Active and Suspected Problems (Last Reviewed 03/02/20 @ 02:[address] Wilder Lee MD) Diabetic ankle ulcer (Acute) Cellulitis (Acute) R ankle ulcer with suspected cyst - I&D done by Dr. Chao 03/03. Wound cx now with some staph aureus and strep. No deeper involvement seen. Will stop iv abx. Start po doxy and keflex, plan on discharge on 5 more days. Will follow as needed, thank you, d/w Dr. Fields
[2020-03-03 16:50] LABS: Bedside Glucose 319 mg/dL (70-110)
[2020-03-03] MEDS: Furosemide 20 MG Tablet PO (17:49)
[2020-03-03] MEDS: Doxycycline 100 MG CAPSULE PO (20:58)
[2020-03-03] MEDS: Cephalexin 500 MG Capsule PO (20:58)
[2020-03-03 21:26] LABS: Bedside Glucose 331 mg/dL (70-110)
[2020-03-04 04:21] VITALS: BP 135/53; PULSE 55; RESP 18; TEMP 36.9; O2SAT 96
--- NOTE | 2020-03-04 05:48 | RAD_ITS ---
STUDY: X-RAY CHEST REASON FOR EXAM: Female, 79 years old. hypoxia TECHNIQUE: PA and lateral views of the chest. COMPARISON: 03/02/2020 FINDINGS: Sternal wires and mediastinal surgical clips compatible with prior CABG. There are coarsened interstitial lung markings. Diminished asymmetric opacity adjacent to the left hilum as on the prior study. There is no demonstrated pleural abnormality. Normal size heart. Normal mediastinum and pavel. Normal visualized pulmonary arteries. There is atherosclerotic calcification of the aortic arch with tortuosity. There is demineralization of the osseous structures. Normal visualized ribs, clavicles, and shoulders. There is no demonstrated abnormality of the visualized soft tissue structures of the upper abdomen. RAD/Chest PA and Lateral IMPRESSION: 1. Resolution of left perihilar infiltrate. 2. Suspect chronic interstitial fibrotic changes. Electronically Signed: Cristobal Krishna MD ([place]) at 14:42 EST , Service support ,
[2020-03-04] MEDS: Insulin Lispro 100 UNIT/ML INSULN.PEN SC ×2 (06:22→11:55)
[2020-03-04 06:40] LABS: Bedside Glucose 165 mg/dL (70-110)
[2020-03-04 07:15] VITALS: O2SAT 94
[2020-03-04 08:07] LABS: Absolute Lymphocyte Count 1.87 X10^3/uL (0.83-4.51); Absolute Neutrophil Count 7.3 X10^3/uL (2.0-7.7); Basophil# 0.06 X10^3/uL; Basophil% 0.5 % (0-1); Eosinophil# 0.29 X10^3/uL; Eosinophils% 2.6 % (0-5); Hematocrit 36.3 % (37-47); Hemoglobin 12.3 g/dL (12.0-15.0); Lymphocyte # 1.87 X10^3/ul (4.0); Lymphocyte % 16.9 % (19-41); Mean Corp Hgb Conc 33.9 g/dL (32-36); Mean Corpuscular Hgb 29.2 pg (27.0-32.0); Mean Corpuscular Volume 86.2 fL (81-99); Mean Platelet Vol. 10.7 fl (6.2-12.0); Monocyte# 1.49 X10^3/uL; Monocyte% 13.4 % (0-10); NRBC Flagged by Analyzer 0 % (0-5); Neutrophil # 7.27 X10^3/uL (2.7-7.7); Neutrophil % 65.6 % (47-70); Platelet Count 235 K/mm3 (150-450); RBC Distribution Width CV 13.2 % (11.6-14.6); RBC Distribution Width SD 41.6 fl (35.1-43.9); Red Blood Count 4.21 M/mm3 (4.2-5.4); White Blood Count 11.1 K/mm3 (4.4-11.0)
[2020-03-04 08:31] LABS: Anion Gap 8 (5-15); BUN 42 mg/dL (7-18); BUN/Creat Ratio 32.3 RATIO (10-20); Calcium,Total 8.6 mg/dL (8.5-10.1); Chloride 104 mmol/L (98-107); EST Glomerular Filtration Rate 42 mL/min (>60); Est Glom Filt Rate - Afr Amer 51 mL/min (>60); Estimated Creatinine Clearance 31.58 ml/min; Glucose 160 mg/dL (74-106); Potassium 3.6 mmol/L (3.5-5.1); Sodium Level 137 mmol/L (136-145)
--- NOTE | 2020-03-04 09:01 | PN_ITS ---
Patient Problems: Active and Suspected Problems (Last Reviewed 03/02/20 @ 02:[address] Wilder Lee MD) Diabetic ankle ulcer (Acute) Cellulitis (Acute) - Physical Exam Vitals/I&O's: Vital Signs Temp Pulse Resp BP Pulse Ox 98.4 F 55 L 18 135/53 H 94 03/04/20 04:21 03/04/20 04:21 03/04/20 04:21 03/04/20 04:21 03/04/20 07:15 Oxygen Flow Rate (L/min) 2 Oxygen Delivery Method Nasal Cannula Weight: 73.936 kg Body Mass Index (BMI) 27.1 Finger Stick Blood Glucose 235 Intake and Output for Last 24 Hours 03/02/20 03/03/20 03/04/20 23:59 23:59 23:59 Intake Total 1066.25 / 1316.25 550 / 550 Output Total 950 / 2800 2250 / 2250 250 / 250 Balance 116.25 / -1483.75 -1700 / -1700 -250 / -250 General: Alert, Oriented x3, Cooperative HEENT: Atraumatic Extremities: No clubbing, No cyanosis, Capillary Refill Less than 3 Seconds, No Calf Tenderness, Diminished Peripheral Pulses, Edema Skin: Ulcer/ Wound - Wound to right lateral ankle at level of malleoli, down to tendon and capsule, no purulence expressed, periwound erythema and edema noted but patient has chronic edema as well, mild serous drainage decreased from yesterday, fibrous tissue noted, Musculoskeletal: No Tenderness to Palpation of Joints or Extremities Neurological: - - Absent light touch sensation Psych/Mental Status: Normal Affect, Appropriate Microbiology Past 72 Hours 03/02/20 00:00 Blood Culture (Wb) - No Site/Description Given Blood Culture - Preliminary No growth in 48 hours. 03/01/20 23:50 Blood Culture (Wb) - No Site/Description Given Blood Culture - Preliminary No growth in 48 hours. 03/02/20 11:00 Cyst - Ankle Gram Stain - Final 03/02/20 11:00 Cyst - Ankle Wound Culture - Preliminary Staphylococcus aureus Streptococcus agalactiae (B) Laboratory Results 03/03/20 10:50: POC Glucose 211 H 03/03/20 16:42: POC Glucose 319 H 03/03/20 20:54: POC Glucose 331 H 03/04/20 06:20: POC Glucose 165 H 03/04/20 07:50: WBC 11.1 H, RBC 4.21, Hgb 12.3, Hct 36.3 L, MCV 86.2, MCH 29.2, MCHC 33.9, RDW Std Deviation 41.6, RDW Coeff of Monique 13.2, Plt Count 235, MPV 10.7, Immature Gran % (Auto) 1.000 H, Neut % (Auto) 65.6, Lymph % (Auto) 16.9 L, [place] % (Auto) 13.4 H, Eos % (Auto) 2.6, Baso % (Auto) 0.5, Absolute Neuts (auto) 7.3, Absolute Lymphs (auto) 1.87, Nucleated RBC % 0 03/04/20 07:50: Sodium 137, Potassium 3.6, Chloride 104, Carbon Dioxide 25.0, Anion Gap 8, BUN 42 H, Creatinine 1.30 H, Estim Creat Clear Calc 31.58, Est GFR (MDRD) Af Amer 51 L, Est GFR (MDRD) Non-Af 42 L, BUN/Creatinine Ratio 32.3 H, Glucose 160 H, Calcium 8.6 Current Medications Acetaminophen (Acetaminophen 500 Mg Tablet) 1,000 mg PO Q8H PRN PRN PRN Reason: Pain Score 1-10 Last Admin: 03/03/20 01:23 Dose: 1,000 mg Documented by: Amlodipine Besylate (Amlodipine 10 Mg Tablet) 10 mg PO DAILY [facility] Last Admin: 03/03/20 09:00 Dose: 10 mg Documented by: Ascorbic Acid (Ascorbic Acid 500 Mg Tablet) 500 mg PO DAILY [facility] Last Admin: 03/03/20 09:00 Dose: 500 mg Documented by: Atenolol (Atenolol 50 Mg Tablet) 50 mg PO BID [facility] Last Admin: 03/03/20 20:58 Dose: 50 mg Documented by: Cephalexin (Cephalexin 500 Mg Capsule) 500 mg PO Q12 [facility] Last Admin: 03/03/20 20:58 Dose: 500 mg Documented by: Cholecalciferol (Cholecalciferol (Vit D3) 1,000 Unit (25mcg)) 1,000 unit PO DAILY [facility] Last Admin: 03/03/20 09:00 Dose: 1,000 unit Documented by: Cyanocobalamin (Cyanocobalamin 500 Mcg Tablet) 1,000 mcg PO DAILY [facility] Last Admin: 03/03/20 09:00 Dose: 1,000 mcg Documented by: Dextrose (Dextrose 50%-Water 25 Gm/50 Ml Disp.Syrin) 0 gm IV X1 PRN; Protocol PRN Reason: Hypoglycemia Doxycycline Monohydrate (Doxycycline 100 Mg Capsule) 100 mg PO BID [facility] Last Admin: 03/03/20 20:58 Dose: 100 mg Documented by: Furosemide (Furosemide 40 Mg Tablet) 40 mg PO DAILY [facility] Glucagon (Glucagon 1 Mg/Ml Syringe) 1 mg IM .X1 PRN PRN Reason: Hypoglycemia Heparin Sodium (Porcine) (Heparin Injection (Vial) 5,000 Unit/Ml Vial) 5,000 unit SC Q12 [facility] Last Admin: 03/03/20 20:59 Dose: 5,000 unit Documented by: Hydralazine HCl (Hydralazine 20 Mg/Ml Vial) 5 mg IV Q4H PRN PRN PRN Reason: SBP more than 160 or DBP more than 120 Insulin Glargine (Insulin Glargine 100 Units/Ml Pen) 10 units SC QHS [facility] Last Admin: 03/03/20 20:59 Dose: 10 u Documented by: Insulin Human Lispro (Insulin Lispro 100 Unit/Ml Insuln.Pen) 0 unit SC ACHS [facility]; Protocol Last Admin: 03/04/20 06:22 Dose: 1 units Documented by: Lisinopril (Lisinopril 40 Mg Tablet) 40 mg PO DAILY [facility] Last Admin: 03/03/20 09:00 Dose: 40 mg Documented by: Magnesium Chloride (Magnesium Chloride 64 Mg Delay Rel.Tablet) 128 mg PO DAILY [facility] Last Admin: 03/03/20 09:00 Dose: 128 mg Documented by: Multivitamins ([facility]it[facility],Therapeutic Tablet) [facility] Last Admin: 03/03/20 09:00 Dose: 1 tablet Documented by: Ondansetron HCl (Ondansetron 4 Mg/2 Ml Vial) 4 mg IV Q8H PRN PRN PRN Reason: NAUSEA/VOMITING Senna/Docusate Sodium (Senna/Docusate Sodium 1 Tablet) 2 tablet PO BID PRN PRN PRN Reason: Constipation Sodium Chloride (0.9% Saline Lock 10 Ml Syringe) 10 - 40 ml IV UD PRN PRN Reason: SALINE FLUSH Last Admin: 03/02/20 09:55 Dose: 10 ml Documented by: Zolpidem Tartrate (Zolpidem Tartrate 5 Mg Tablet) 5 mg PO QHS PRN PRN PRN Reason: INSOMNIA Medical Necessity - Tobacco Use Smoking Status: Never smoker Assessment/Plan All Active Problems (Last Reviewed 03/02/20 @ 02:[address] Wilder Lee MD) Diabetic ankle ulcer (Acute) Cellulitis (Acute) Right ankle ulcer Ganglion cyst right lateral ankle Cellulitis right lower extremity Charcot foot deformity right foot Diabetes with neuropathy Patient seen and examined at bedside Patient denies any pain if she has complete neuropathy to her feet and ankles MRI was reviewed showing possible cyst or abscess to the lateral right ankle as well as a deltoid tear calcaneal cyst and decreased signal at the peripheral lateral malleolus X-ray was also reviewed showing soft tissue swelling and and Charcot deformity Labs were reviewed showing initial leukocytosis upon admission which has since resolved Continue daily dressing changes Site was dressed with wet 1/4 inch plain packing, Aquacel silver, 4 x 4's ABD Kerlix and Colten wrap. Colten should go from toes to knee to help with edema Patient states that she has many different compression options at home including custom made compression socks for her chronic edema but she does not wear them often. Discussed with the patient importance of controlling the swelling to help wound healing Discussed with patient the importance of relieving the pressure off of the wound site, proper nutrition, blood sugar control to help facilitate wound healing. Discussed that patient should follow-up regularly for wound evaluations and debridements Wound doesn't probe to bone and no abscess seen, wound goes to capsule with tendons exposed, wound palpated through capsule feels hard, low suspicion of OM Staph and strep growing from cyst cultures, follow ID recommendations for discharge antibiotics Discussed with the patient that it will be importance to relieve pressure from this area. Patient states that she typically sleeps on her right side. I would discouraged her from sleeping this way and if it is unavoidable to consider getting a donut pad to offload the area when on her side. Discussed that the pressure will slow down the healing Patient states that she bleeds easily will need to watch to make sure no hematoma develops into the void from the cyst deficit Weightbearing as tolerated, would recommend decreasing activity level to allow better healing. Discussed with the patient that movement at the ankle will stress the ulcer site and delay healing Ok to DC per podiatry Patient states that her daughter is coming at 2:00 today in order to learn how to do proper wound care. Patient should follow up in office with Dr. Chao in 1 week Please call if any questions or concerns arise
[2020-03-04] MEDS: Multivitamins,Therapeutic Tablet 1 TABLET PO (09:14)
[2020-03-04 09:15] VITALS: BP 143/70; PULSE 61; RESP 18; TEMP 36.6; O2SAT 95
--- NOTE | 2020-03-04 10:22 | PCM.DC ---
- Discharge Diagnoses Current Active Problems: Current Active and Chronic Problems (Last Reviewed 03/02/20 @ 02:[address] Wilder Lee MD) Diabetic ankle ulcer (Acute) Cellulitis (Acute) CKD (chronic kidney disease), stage III (Chronic) CAD (coronary artery disease) (Chronic) Osteoarthritis (Chronic) CKD (chronic kidney disease) (Chronic) History of MRSA infection (Chronic) Osteomyelitis of left foot (Chronic) Hypertension (Chronic) Peripheral arterial disease (Chronic) Type 2 diabetes mellitus (Chronic) Rheumatoid arthritis (Chronic) You will use the following diet at home:: Calorie/Carbohydrate Controlled (specify 1200, 1400, etc) - 1800 mandi., Cardiac Your food should be the consistency of: Regular Discharge Activity: Return to Normal Activity Weight Bearing Status: Weight bearing as tolerated Keep extremity elevated above heart level: Left Leg, Right Leg, - - To assist with swelling Call your doctor if your incision/area has: Sudden Increased Bleeding, Increased Pain/ Swelling, Increased Redness, Foul Smelling Discharge Call your doctor if you observe: Fever of 101 or Higher, Shortness of breath, Dizziness, Fainting spells, Chest pain, Increased palpitations (irregular heartbeat), Uncontrolled pain Change Dressing in (Days):: 1 - Daily dressing changes Additional Dressing/Incision Instructions:: Change quarter inch packing daily covering with Aquacel Ag, 4 x 4's ABDs Kerlix and Colten wrap Instructions: Using Oxygen at Home Allergies/Adverse Reactions: Allergies adhesive Allergy (Verified 12/05/17 18:04) Unknown red skin, uses paper tape and is okay with this atorvastatin calcium [From Lipitor] Allergy (Verified 12/05/17 18:04) Unknown joint pain bacitracin [From Neosporin ([id number])] Allergy (Verified 12/05/17 18:04) Unknown rash bacitracin zinc [From Neosporin ([id number])] Allergy (Verified 12/05/17 18:04) Unknown rash fenofibrate nanocrystallized [From Tricor] Allergy (Verified 12/05/17 18:04) Unknown upset gi or muscle pain fenofibrate,micronized [From Tricor] Allergy (Verified 12/05/17 18:04) Unknown flurbiprofen Allergy (Verified 12/05/17 18:04) Unknown upset stomach gemfibrozil Allergy (Verified 12/05/17 18:04) Unknown upset stomach glipizide [From Glucotrol] Allergy (Verified 12/05/17 18:04) Unknown dizzy, upset gi metronidazole Allergy (Verified 12/05/17 18:04) ALLERGY neomycin sulfate [From Neosporin ([id number])] Allergy (Verified 12/05/17 18:04) Unknown rash polymyxin B [From Neosporin ([id number])] Allergy (Verified 12/05/17 18:04) Unknown rash prednisolone acetate, micronized Allergy (Verified 12/05/17 18:04) ALLERGY simvastatin Allergy (Verified 12/05/17 18:04) ALLERGY tramadol [From Ultram] Allergy (Verified 12/05/17 18:04) ALLERGY pravastatin Adverse Reaction (Verified 12/05/17 18:04) Other MUSCLE PAIN Medications to take at Discharge Insulin Glargine [Lantus SoloStar Pen] 10 units SC QHS 08/26/15 glyBURIDE [Micronase] 5 mg PO DAILY@0800 08/26/15 metFORMIN HCl [Glucophage] 500 mg PO TIDCM 08/26/15 Ascorbic Acid [Vitamin C] 500 mg PO DAILY 12/09/16 Atenolol [Tenormin (beta charlie)] 50 mg PO BID 12/09/16 Cholecalciferol (Vitamin D3) [Vitamin D3] 1,000 unit PO DAILY 12/09/16 Cyanocobalamin (Vitamin B-12) [Vitamin B-12] 1,000 mcg PO DAILY 12/09/16 Multivitamin [Multiple Vitamins] 1 ea PO DAILY 12/09/16 [place]-3 Fatty Acids/Fish Oil [[place] 3 Fish Oil Softgel] 1 cap PO BID 12/09/16 Acetaminophen [Tylenol] 1,000 mg PO Q8H PRN PRN 06/10/17 Aspirin 81 mg PO DAILY 06/11/17 Amlodipine [Norvasc] 10 mg PO DAILY #30 tab 06/13/17 Lisinopril 20 mg PO DAILY 12/05/17 Magnesium Oxide [Magox 400] 400 mg PO DAILY 03/01/20 Furosemide [Lasix] 20 mg PO QODAY 03/02/20 Cephalexin [Keflex] 500 mg PO Q12 #10 cap 03/03/20 Doxycycline 100 mg PO BID #10 cap 03/03/20 The following prescriptions were given: Doxycycline 100 mg PO BID #10 cap Transmission Status: Received by [id number] Cephalexin [Keflex] 500 mg PO Q12 #10 cap Transmission Status: Received by [id number] Primary Care Physician: Kelsy Mensah MD [Primary Care Provider] - Please follow up with your Primary Care Physician in: 1-2 weeks. Test Results: Test results from this visit will be discussed in further detail at your follow-up appointment, if applicable. Please Follow Up With: Ema Chao DPM When: 1 week after discharge
[2020-03-04] MEDS: Magnesium Chloride 64 MG Delay Rel.Tablet 128 MG PO (10:44)
[2020-03-04] MEDS: Doxycycline 100 MG CAPSULE PO (10:44)
[2020-03-04] MEDS: Lisinopril 40 MG Tablet PO (10:44)
[2020-03-04] MEDS: Heparin Injection (Vial) 5,000 UNIT/ML VIAL 5000 UNIT SC (10:44)
[2020-03-04] MEDS: Atenolol 50 MG Tablet PO (10:45)
[2020-03-04] MEDS: Cephalexin 500 MG Capsule PO (10:45)
[2020-03-04] MEDS: Furosemide 40 MG Tablet PO (10:45)
[2020-03-04] MEDS: Ascorbic Acid 500 MG Tablet PO (10:45)
[2020-03-04] MEDS: amLODIPine 10 MG Tablet PO (10:45)
[2020-03-04] MEDS: Cyanocobalamin 500 MCG Tablet 1000 MCG PO (10:45)
[2020-03-04 10:50] VITALS: PULSE 72; O2SAT 96
--- NOTE | 2020-03-04 11:44 | CASEMGMT ---
RN CM Note: call received from Charge nurse re: patient needing home oxygen. Testing not completed yet. Script and packet/green sheet to [facility] for completion with [facility] once testing is completed. Perry MALONEYN RN ACM
--- NOTE | 2020-03-04 12:04 | PCM.DC.SUM ---
Discharge Date and Diagnosis - Problem List Patient Problems: Active and Suspected Problems (Last Reviewed 03/02/20 @ 02:[address] Wilder Lee MD) Diabetic ankle ulcer (Acute) Cellulitis (Acute) Date of Admission: 03/02/20 Date of Discharge: 03/04/20 - Primary Discharge Diagnosis Acute Problems: Active Problems (Last Reviewed 03/02/20 @ 02:[address] Wilder Lee MD) #1 diabetic right lateral ankle ulcer with surrounding mild cellulitis, low suspicion for osteomyelitis, status post bedside debridement. #2 hypoxia, requiring home oxygen. - Secondary Discharge Diagnosis Chronic Problems: Chronic Problems (Last Reviewed 03/02/20 @ 02:[address] Wilder Lee MD) CKD (chronic kidney disease), stage III (Chronic) CAD (coronary artery disease) (Chronic) Osteoarthritis (Chronic) CKD (chronic kidney disease) (Chronic) History of MRSA infection (Chronic) Osteomyelitis of left foot (Chronic) Hypertension (Chronic) Peripheral arterial disease (Chronic) Type 2 diabetes mellitus (Chronic) Rheumatoid arthritis (Chronic) Hospital Course and Treatment Imaging Results: 03/04/20 05:48 CXR [Chest PA and Lateral] [RAD] AM (NON MEDS) Clinical Impression(s) from Imaging Studies Ankle X-Ray 03/02/20 00:00 IMPRESSION: Soft tissue swelling overlying the lateral malleolus region. No subcutaneous emphysema. No osseous erosions. Electronically Signed: Niko Hernadez, at 0:57 EST Tel , Service support , Foot X-Ray 03/02/20 00:00 IMPRESSION: No acute fracture or osseous erosion. Electronically Signed: Niko Hernadez, at 1:00 EST Tel , Service support , Lower Extremity MRI 03/02/20 03:10 IMPRESSION: Bone edema in the peripheral aspect of the lateral malleolus with mild decreased T1 bone marrow signal, possibly representing osteomyelitis. Septated fluid collection deep to the ulcer at the lateral aspect of the ankle, either soft tissue abscess or ganglion cyst. 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 Flexor digitorum longus, flexor hallucis longus and peroneal tenosynovitis. Electronically Signed: Severiano Costello MD at 10:04 EST Tel , Service support , Chest X-Ray 03/02/20 16:05 IMPRESSION: 1. Question left perihilar infiltrate. 2. Borderline cardiomegaly with evidence of median sternotomy. This is unchanged. Electronically Signed: Kalia Rosado DO at 16:47 EST Tel [phone], Service support , Chest X-Ray 03/04/20 05:48 IMPRESSION: 1. Resolution of left perihilar infiltrate. 2. Suspect chronic interstitial fibrotic changes. Electronically Signed: Cristobal Krishna MD ([place]) at 14:42 EST , Service support , Dr. Chao, podiatry medicine. Dr. Rico, infectious disease. Operations: None, - Procedures: - - Bedside debridement of right ankle ulcer. Summary of Care Provided: Patient seen and examined on the day of discharge and appeared to be stable to be discharged home. She denied any worsening shortness of breath though she required oxygen of 2 L. She denied cough or sputum production. She denied fever or chills. Her vital signs are stable. The patient is a 79 year old F presented to the emergency room because of right ankle wound with black eschar, was admitted for evaluation and treatment. She was found to have acute diabetic right lateral ankle ulcer with mild surrounding cellulitis. There was a suspicion that she may have osteomyelitis as well. Patient was treated with IV vancomycin and Zosyn. Podiatry medicine consulted and bedside debridement was performed. MRI of the right foot revealed possible osteomyelitis of the peripheral aspect of the lateral malleolus. Podiatry medicine stated that suspicion of osteomyelitis is very low and there is no indication for surgery at this time. Her routine blood work was unremarkable, there was no significant leukocytosis. ESR and CRP was elevated. Blood culture showed no growth in 48 hours. Wound culture revealed rare staph aureus and Streptococcus agalactiae. Patient remained afebrile throughout the hospital stay. Infectious disease consulted and agreed that patient does not need any surgery at this time. Patient was started on p.o. doxycycline and Keflex. She developed mild hypoxia. First chest x-ray showed questionable left perihilar infiltrate. Patient had no fever, no cough or sputum production. She received 1 dose of IV Lasix. Repeat chest x-ray revealed resolution of the left perihilar haziness which rules out pneumonia. Patient stated that she was given oxygen to go home with around 1 year ago when she was admitted to a different hospital. Her pulse oximeter went down to 87% on room air at rest and she did qualify for home oxygen to be able to ambulate around her house and do her daily activities. Pneumonia ruled out. Patient discharged home in a stable condition, discharged on Keflex and doxycycline for 4 days after discharge, discharged on home oxygen at 2 L, plan is to follow-up with podiatry medicine in 1 week and follow-up with PCP in 1 to 2 weeks. Patient Problems: Active and Suspected Problems (Last Reviewed 03/02/20 @ 02:[address] Wilder Lee MD) Diabetic ankle ulcer (Acute) Cellulitis (Acute) - Physical Exam Vitals/I&O's: Vital Signs Temp Pulse Resp BP Pulse Ox 97.8 F 61 18 143/70 H 95 03/04/20 09:15 03/04/20 09:15 03/04/20 09:15 03/04/20 09:15 03/04/20 09:15 Oxygen Flow Rate (L/min) 2 Oxygen Delivery Method Nasal Cannula Weight: 163 lb 0.016 oz Body Mass Index (BMI) 27.1 Finger Stick Blood Glucose 235 Intake and Output for Last 24 Hours 03/02/20 03/03/20 03/04/20 23:59 23:59 23:59 Intake Total 1066.25 / 1316.25 550 / 550 Output Total 950 / 2800 2250 / 2250 250 / 250 Balance 116.25 / -1483.75 -1700 / -1700 -250 / -250 General: Alert, Oriented x3, Cooperative, No apparent distress HEENT: Atraumatic, PERRLA, EOMI, Normocephalic Oral: Moist Mucosa, No Gingival or Mucosal Lesions/ Ulcerations Neck: Supple, No JVD, Negative Carotid Bruits, Trachea Midline, Thyroid Normal Size and Texture Lungs: Clear to auscultation, Normal air movement, No rhonchi, No wheeze, No rales Cardiovascular: Regular rate, Regular Rhythm, Normal S1, Normal S2, PMI Normal Abdomen: Bowel Sounds Present, Soft, Non Tender, Non-Distended, No Hepato-splenomegaly Extremities: No clubbing, No cyanosis, No edema Skin: No rashes, No breakdown Lymphatic: No Cervical, Supraclavicular, or Inguinal Adenopathy Neurological: Cranial nerves II-XII grossly intact, Neuro grossly intact Psych/Mental Status: Normal Affect, Appropriate Microbiology Past 72 Hours 03/02/20 11:00 Cyst - Ankle Gram Stain - Final 03/02/20 11:00 Cyst - Ankle Wound Culture - Preliminary Staphylococcus aureus Streptococcus agalactiae (B) Gram positive organism 03/02/20 11:00 Cyst - Ankle Anaerobic Culture - Preliminary Checking for anaerobes, further studies to follow. 03/02/20 00:00 Blood Culture (Wb) - No Site/Description Given Blood Culture - Preliminary No growth in 48 hours. 03/01/20 23:50 Blood Culture (Wb) - No Site/Description Given Blood Culture - Preliminary No growth in 48 hours. Laboratory Results 03/03/20 16:42: POC Glucose 319 H 03/03/20 20:54: POC Glucose 331 H 03/04/20 06:20: POC Glucose 165 H 03/04/20 07:50: WBC 11.1 H, RBC 4.21, Hgb 12.3, Hct 36.3 L, MCV 86.2, MCH 29.2, MCHC 33.9, RDW Std Deviation 41.6, RDW Coeff of Monique 13.2, Plt Count 235, MPV 10.7, Immature Gran % (Auto) 1.000 H, Neut % (Auto) 65.6, Lymph % (Auto) 16.9 L, [place] % (Auto) 13.4 H, Eos % (Auto) 2.6, Baso % (Auto) 0.5, Absolute Neuts (auto) 7.3, Absolute Lymphs (auto) 1.87, Nucleated RBC % 0 03/04/20 07:50: Sodium 137, Potassium 3.6, Chloride 104, Carbon Dioxide 25.0, Anion Gap 8, BUN 42 H, Creatinine 1.30 H, Estim Creat Clear Calc 31.58, Est GFR (MDRD) Af Amer 51 L, Est GFR (MDRD) Non-Af 42 L, BUN/Creatinine Ratio 32.3 H, Glucose 160 H, Calcium 8.6 Current Medications Acetaminophen (Acetaminophen 500 Mg Tablet) 1,000 mg PO Q8H PRN PRN PRN Reason: Pain Score 1-10 Last Admin: 03/03/20 01:23 Dose: 1,000 mg Documented by: Amlodipine Besylate (Amlodipine 10 Mg Tablet) 10 mg PO DAILY [facility] Last Admin: 03/04/20 10:45 Dose: 10 mg Documented by: Ascorbic Acid (Ascorbic Acid 500 Mg Tablet) 500 mg PO DAILY [facility] Last Admin: 03/04/20 10:45 Dose: 500 mg Documented by: Atenolol (Atenolol 50 Mg Tablet) 50 mg PO BID [facility] Last Admin: 03/04/20 10:45 Dose: 50 mg Documented by: Cephalexin (Cephalexin 500 Mg Capsule) 500 mg PO Q12 [facility] Last Admin: 03/04/20 10:45 Dose: 500 mg Documented by: Cholecalciferol (Cholecalciferol (Vit D3) 1,000 Unit (25mcg)) 1,000 unit PO DAILY [facility] Last Admin: 03/04/20 10:45 Dose: 1,000 unit Documented by: Cyanocobalamin (Cyanocobalamin 500 Mcg Tablet) 1,000 mcg PO DAILY [facility] Last Admin: 03/04/20 10:45 Dose: 1,000 mcg Documented by: Dextrose (Dextrose 50%-Water 25 Gm/50 Ml Disp.Syrin) 0 gm IV X1 PRN; Protocol PRN Reason: Hypoglycemia Doxycycline Monohydrate (Doxycycline 100 Mg Capsule) 100 mg PO BID [facility] Last Admin: 03/04/20 10:44 Dose: 100 mg Documented by: Furosemide (Furosemide 40 Mg Tablet) 40 mg PO DAILY [facility] Last Admin: 03/04/20 10:45 Dose: 40 mg Documented by: Glucagon (Glucagon 1 Mg/Ml Syringe) 1 mg IM .X1 PRN PRN Reason: Hypoglycemia Heparin Sodium (Porcine) (Heparin Injection (Vial) 5,000 Unit/Ml Vial) 5,000 unit SC Q12 [facility] Last Admin: 03/04/20 10:44 Dose: 5,000 unit Documented by: Hydralazine HCl (Hydralazine 20 Mg/Ml Vial) 5 mg IV Q4H PRN PRN PRN Reason: SBP more than 160 or DBP more than 120 Insulin Glargine (Insulin Glargine 100 Units/Ml Pen) 10 units SC QHS [facility] Last Admin: 03/03/20 20:59 Dose: 10 u Documented by: Insulin Human Lispro (Insulin Lispro 100 Unit/Ml Insuln.Pen) 0 unit SC ACHS [facility]; Protocol Last Admin: 03/04/20 11:55 Dose: 6 units Documented by: Lisinopril (Lisinopril 40 Mg Tablet) 40 mg PO DAILY [facility] Last Admin: 03/04/20 10:44 Dose: 40 mg Documented by: Magnesium Chloride (Magnesium Chloride 64 Mg Delay Rel.Tablet) 128 mg PO DAILY [facility] Last Admin: 03/04/20 10:44 Dose: 128 mg Documented by: Multivitamins ([facility],Therapeutic Tablet) [facility] Last Admin: 03/04/20 09:14 Dose: 1 tablet Documented by: Ondansetron HCl (Ondansetron 4 Mg/2 Ml Vial) 4 mg IV Q8H PRN PRN PRN Reason: NAUSEA/VOMITING Senna/Docusate Sodium (Senna/Docusate Sodium 1 Tablet) 2 tablet PO BID PRN PRN PRN Reason: Constipation Sodium Chloride (0.9% Saline Lock 10 Ml Syringe) 10 - 40 ml IV UD PRN PRN Reason: SALINE FLUSH Last Admin: 03/02/20 09:55 Dose: 10 ml Documented by: Zolpidem Tartrate (Zolpidem Tartrate 5 Mg Tablet) 5 mg PO QHS PRN PRN PRN Reason: INSOMNIA Discharge Activity: Return to Normal Activity Weight Bearing Status: Weight bearing as tolerated Keep extremity elevated above heart level: Left Leg, Right Leg, - - To assist with swelling Call your doctor if your incision/area has: Sudden Increased Bleeding, Increased Pain/ Swelling, Increased Redness, Foul Smelling Discharge Call your doctor if you observe: Fever of 101 or Higher, Shortness of breath, Dizziness, Fainting spells, Chest pain, Increased palpitations (irregular heartbeat), Uncontrolled pain Change Dressing in (Days):: 1 - Daily dressing changes Additional Dressing/Incision Instructions:: Change quarter inch packing daily covering with Aquacel Ag, 4 x 4's ABDs Kerlix and Colten wrap Home Medications: Medications to take at Discharge Insulin Glargine [Lantus SoloStar Pen] 10 units SC QHS 08/26/15 glyBURIDE [Micronase] 5 mg PO DAILY@0800 08/26/15 metFORMIN HCl [Glucophage] 500 mg PO TIDCM 08/26/15 Ascorbic Acid [Vitamin C] 500 mg PO DAILY 12/09/16 Atenolol [Tenormin (beta charlie)] 50 mg PO BID 12/09/16 Cholecalciferol (Vitamin D3) [Vitamin D3] 1,000 unit PO DAILY 12/09/16 Cyanocobalamin (Vitamin B-12) [Vitamin B-12] 1,000 mcg PO DAILY 12/09/16 Multivitamin [Multiple Vitamins] 1 ea PO DAILY 12/09/16 [place]-3 Fatty Acids/Fish Oil [[place] 3 Fish Oil Softgel] 1 cap PO BID 12/09/16 Acetaminophen [Tylenol] 1,000 mg PO Q8H PRN PRN 06/10/17 Aspirin 81 mg PO DAILY 06/11/17 Amlodipine [Norvasc] 10 mg PO DAILY #30 tab 06/13/17 Lisinopril 20 mg PO DAILY 12/05/17 Magnesium Oxide [Magox 400] 400 mg PO DAILY 03/01/20 Furosemide [Lasix] 20 mg PO QODAY 03/02/20 Cephalexin [Keflex] 500 mg PO Q12 #10 cap 03/03/20 Doxycycline 100 mg PO BID #10 cap 03/03/20 Following Prescriptions Were Given to Patient: Doxycycline 100 mg PO BID #10 cap [facility] Cephalexin [Keflex] 500 mg PO Q12 #10 cap [facility] Primary Care Physician: Kelsy Mensah MD [Primary Care Provider] - Please follow up with your Primary Care Physician in: 1-2 weeks. Please Follow Up With: Ema Chao DPM When: 1 week after discharge Patient Instructions: Using Oxygen at Home Disposition: Home Minutes spent on discharge:: 28 Patient Condition:: Stable Medical Necessity - Tobacco Use Smoking Status: Never smoker Meaningful Use Info Meaningful Use Diagnoses (Choose all that apply): None applicable Inpatient E&M: 51056 Disch Hosp
[2020-03-04 12:06] LABS: Bedside Glucose 356 mg/dL (70-110)
--- NOTE | 2020-03-04 13:10 | CASEMGMT ---
RN CM Note: Script and clinicals for oxygen completed. Awaiting oxygen testing when nursing stated patient is refusing home oxygen. Information left with charge nurse in case pt changed her mind. Perry FERRERA RN ACM
[2020-03-04 14:20] VITALS: BP 130/55; PULSE 67; RESP 18; TEMP 36.6; O2SAT 94
[2020-03-06 13:18] LABS: Pathologist Review Reviewed
--- NOTE | 2020-03-06 15:23 | CASEMGMT ---
RN CM Discharge Follow-up Phone Call: SHAHAB: Alisson Strata: 3 Call Date: 03/06/20 Discharge Date: 03/04/20 Time of Call: 1523 Duration: 1 min Admitting Diagnosis: Diabetic ulcer infection with cellulitis RN CM attempted to complete follow-up phone call after recent hospitalization. No answer, voice message left with return contact information.
== END 2020-03-04 16:00 | disposition home or self-care (01) | DRG 623 ==
LOC: ED 03-02 01:05 → MS3 03-02 01:37
PROVIDERS: Physician Assistant; Admitting Provider Hospitalist; Emergency Provider Emergency Medicine; PCP Internal Medicine; Referring Provider Hospitalist; Visit Provider Hospitalist
DX: E11.622 Type 2 diabetes mellitus with other skin ulcer (principal); L03.115 Cellulitis of right lower limb; I13.0 Hypertensive heart and chronic kidney disease with heart failure and stage 1 through stage 4 chronic kidney disease, or unspecified chronic kidney disease; L97.318 Non-pressure chronic ulcer of right ankle with other specified severity; M67.471 Ganglion, right ankle and foot; R09.02 Hypoxemia; E11.610 Type 2 diabetes mellitus with diabetic neuropathic arthropathy; E11.40 Type 2 diabetes mellitus with diabetic neuropathy, unspecified; I25.10 Atherosclerotic heart disease of native coronary artery without angina pectoris; M06.9 Rheumatoid arthritis, unspecified; M19.91 Primary osteoarthritis, unspecified site; Z95.1 Presence of aortocoronary bypass graft; Z86.14 Personal history of Methicillin resistant Staphylococcus aureus infection; Z79.4 Long term (current) use of insulin; Z79.82 Long term (current) use of aspirin; N18.30 Chronic kidney disease, stage 3 unspecified; E11.22 Type 2 diabetes mellitus with diabetic chronic kidney disease; I50.9 Heart failure, unspecified; E11.51 Type 2 diabetes mellitus with diabetic peripheral angiopathy without gangrene; Z87.19 Personal history of other diseases of the digestive system; Z79.899 Other long term (current) drug therapy
CPT/HCPCS: 36415; 71045; 71046; 73610; 73630; 73721; 80048; 82962; 83605; 83880; 85025; 85652; 86140; 87040; 87070; 87075; 87077; 87186; 87205; 88304; 99284; J7030; J7040; A4216; J1940

== ENCOUNTER 2020-07-05 14:12 | Emergency (ER) | payer OTHER, SELFPAY ==
[2020-03-02 02:57] VITALS: BMI 27.1
[2020-07-05 14:13] VITALS: BP 144/56; PULSE 59; RESP 14; TEMP 36.8; O2SAT 96; BMI 26.6
[2020-07-05 14:37] VITALS: BP 144/56; PULSE 59; RESP 14; TEMP 36.8; O2SAT 96
[2020-07-05 15:14] LABS: Absolute Lymphocyte Count 2.39 X10^3/uL (0.83-4.51); Absolute Neutrophil Count 7.1 X10^3/uL (2.0-7.7); Basophil# 0.06 X10^3/uL; Basophil% 0.5 % (0-1); Eosinophil# 0.22 X10^3/uL; Hematocrit 43.3 % (37-47); Hemoglobin 14.5 g/dL (12.0-15.0); Lymphocyte # 2.39 X10^3/ul (0.83-4.51); Lymphocyte % 21.8 % (19-41); Mean Corp Hgb Conc 33.5 g/dL (32-36); Mean Corpuscular Hgb 29.9 pg (27.0-32.0); Mean Corpuscular Volume 89.3 fL (81-99); Mean Platelet Vol. 10.2 fl (6.2-12.0); Monocyte# 1.15 X10^3/uL; Monocyte% 10.5 % (0-10); NRBC Flagged by Analyzer 0 % (0-5); Neutrophil # 7.07 X10^3/uL (2.7-7.7); Neutrophil % 64.7 % (47-70); Platelet Count 274 K/mm3 (150-450); RBC Distribution Width CV 13.2 % (11.6-14.6); Red Blood Count 4.85 M/mm3 (4.2-5.4)
[2020-07-05 15:30] LABS: Anion Gap 8 (5-15); BUN 25 mg/dL (7-18); BUN/Creat Ratio 15.4 RATIO (10-20); Calcium,Total 9.8 mg/dL (8.5-10.1); Chloride 104 mmol/L (98-107); Creatinine, Serum 1.62 mg/dL (0.55-1.02); EST Glomerular Filtration Rate 33 mL/min (>60); Est Glom Filt Rate - Afr Amer 39 mL/min (>60); Estimated Creatinine Clearance 24.32 ml/min; Glucose 255 mg/dL (74-106); Sodium Level 137 mmol/L (136-145)
--- NOTE | 2020-07-05 16:05 | RAD_ITS ---
STUDY: X-RAY - LEFT HAND REASON FOR EXAM: Female, 79 years old.infection/blister to left thumb foreign body TECHNIQUE: 3 view(s) of the hand. COMPARISON: None. FINDINGS: The head/tuft of the distal phalanx of the thumb has been moderately eroded compatible with osteomyelitis. The surrounding soft tissues are moderately swollen. Intraosseous cyst seen in the head of the metacarpal bone of the thumb. No visualized acute fracture. No radiopaque foreign body is seen. Mild to moderate degenerative narrowing and associated changes are present in the IP joints. Atherosclerotic calcifications are present. The bony structures are mildly demineralized. Mild soft tissue swelling is present. Normal radiocarpal articulation. Normal distal radioulnar joint. Normal visualized carpal bones. Normal carpal articulations Normal carpometacarpal articulation of the thumb. RAD/Hand Min 3 Views IMPRESSION: 1. The head/tuft of the distal phalanx of the thumb has been moderately eroded compatible with osteomyelitis. Electronically Signed: Nabor Mancilla MD at 16:21 EDT , Service support ,
[2020-07-05] MEDS: Vancomycin IV 1,000 MG/200 ML BAG 200 MG IV (16:14)
[2020-07-05 16:15] VITALS: BP 159/56; PULSE 58; RESP 18; O2SAT 100
--- NOTE | 2020-07-05 17:16 | ED.DCSUM_ITS ---
- ER Visit Summary Date of Service: 07/05/20 Chief Complaint: [Redness and swelling to left thumb] History of Present Illness: The patient is a 79 F [does the emergency department with redness and swelling to her left thumb. Patient states that she had a burn to the thumb about 2 weeks ago where she burned it on a frying grier. Patient states she initially had a blister but did not think much of it and felt everything was healing well until yesterday. Patient states there was a scab that fell off and she noticed some redness and increased swelling to the finger. She was seen by primary care physician today who ordered an x-ray of the finger and started on Keflex. Patient was called with the results of her x-ray and told that she had osteomyelitis and needed to be seen in the emergency department. Patient denies any fevers or chills or sweats. Patient has history of prior osteomyelitis to the right index finger that required amputation of the distal phalanx about 3 or 4 years ago. Patient is a diabetic and history of hypertension as well as chronic kidney disease and rheumatoid arthritis.] Physical Examination: HEENT-PERRLA, EOMI. Cranial nerves II through XII grossly intact. TMs clear. Mucous membranes moist. No adenopathy. Cardiovascular-regular rate and rhythm without murmur or ectopy Lungs-clear to auscultation, chest wall stable without crepitus or subcu emphysema Abdomen-normoactive bowel sounds, soft, nontender, no rebound or rigidity, no peritoneal signs. Extremities-intact ?4, normal range of motion, normal pulses. Left thumb- patient does have small area of macerated skin over the pulp of the distal phalanx. No abscess or fluctuance noted. No purulent drainage noted. There is some faint erythema to the dorsum of the distal phalanx. Patient has good range of motion flexion extension of the DIP. She does have some generalized edema and swelling of the thumb. No lymphangitic streaking noted.] Test Results: [CBC with differential obtained showed a white count of 11.0, hemoglobin 14.5, hematocrit 43, placed 274. Chemistries unremarkable. BUN 25 and creatinine 1.62. X-ray of the left 3 views obtained showed irregularity of the tuft of the distal phalanx of the thumb consistent with osteomyelitis when interpreted by myself. Radiology in agreement.] Emergency Department Course and Treatment: [IV line established on arrival. Patient was given vancomycin and Unasyn. I discussed case with orthopedic surgeon on-call who recommended consultation with infectious disease specialist as well as hand surgery. I discussed case with Dr. Holcomb who recommended doxycycline and Keflex and follow-up with his office. I will also attempt to contact who has seen the patient for the prior osteomyelitis episode where she had the distal phalanx amputated of the right index finger. I will also attempt again referral for her to [facility] center for evaluation as it is unclear if will be available to see her.] Treatment Plan: [Patient will be referred to infectious disease as well as hand surgery and will be started on Keflex and doxycycline.] Disposition: [Discharged home in stable condition] Impression: [Osteomyelitis of the distal phalanx of the left thumb] This note was generated with [employer] dictation software. It may contain incorrect words, spelling, and punctuation that were not noted in review of the chart prior to signing ED Disposition - Plan for ED Patient: Referrals: Kelsy Mensah MD [Primary Care Provider] -
--- NOTE | 2020-07-05 17:21 | DCINST.ED_ITS ---
ED Disposition - Plan for ED Patient: Instructions: Osteomyelitis Prescriptions: Doxycycline 100 mg PO BID #20 capsule Transmission Status: Pending to [facility] Referrals: Kelsy Mensah MD [Primary Care Provider] - Pepe Jimenez MD [STAFF PHYSICIAN] - 1-2 Days if not improving Loki Rico MD [STAFF PHYSICIAN] - 3-5 Days
[2020-07-05 17:53] VITALS: RESP 16
== END 2020-07-05 17:54 | disposition home or self-care (01) ==
LOC: ED 14:40
PROVIDERS: Emergency Provider Emergency Medicine; PCP Internal Medicine
DX: M86.9 Osteomyelitis, unspecified (principal); T23.012A Burn of unspecified degree of left thumb (nail), initial encounter; X15.8XXA Contact with other hot household appliances, initial encounter; Y93.9 Activity, unspecified; Y92.9 Unspecified place or not applicable; E11.22 Type 2 diabetes mellitus with diabetic chronic kidney disease; I12.9 Hypertensive chronic kidney disease with stage 1 through stage 4 chronic kidney disease, or unspecified chronic kidney disease; M06.9 Rheumatoid arthritis, unspecified; N18.9 Chronic kidney disease, unspecified; Z79.82 Long term (current) use of aspirin; Z79.4 Long term (current) use of insulin; Z79.899 Other long term (current) drug therapy
CPT/HCPCS: 73130; 80048; 85025; 96365; 96368; 99283; J7050; A4216; J0295

== ENCOUNTER → 2020-08-02 | Outpatient (CLI) | payer OTHER, SELFPAY ==
[2020-07-05 14:13] VITALS: BMI 26.6
[2020-08-02 21:20] LABS: M R Staph aureus DNA By PCR Negative (Negative); Probe Check PASS; Staph aureus DNA By PCR NEGATIVE (Negative)
== END | disposition home or self-care (01) ==
PROVIDERS: PCP Internal Medicine; Referring Provider Podiatrist Foot & Ankle Surgery; Visit Provider Podiatrist Foot & Ankle Surgery
DX: L97.519 Non-pressure chronic ulcer of other part of right foot with unspecified severity (principal); L03.90 Cellulitis, unspecified
CPT/HCPCS: 87070; 87077; 87186; 87205; 87640

== ENCOUNTER 2020-09-29 10:23 | Inpatient (IN) | payer OTHER, SELFPAY ==
[2020-09-29 10:25] VITALS: BP 144/60; PULSE 56; RESP 14; TEMP 36.1; O2SAT 97; BMI 25.7
--- NOTE | 2020-09-29 11:09 | EDS_ITS ---
HPI History of Present Illness Chief Complaint: Abscess Informant: patient Narrative Narrative: 79-year-old female sent to the emergency room out of concern for osteomyelitis by her director process improvement Dr. Chao. Patient has a history of peripheral artery disease, diabetes, chronic kidney disease, Charcot foot. She has recently been treated with doxycycline and amoxicillin. The amoxicillin course was not completed by the patient. Patient denies any fevers. She was evaluated in the office today and they noted some exposed bone and sent her to the hospital for further care and admission. [facility] Medical History Arthritis Breast lump in female Cataracts, bilateral Diabetes Gallstones Heart failure High blood pressure Osteoarthritis Home Medications glyburide 5 mg PO DAILY@0800 08/26/15 [History Last Taken 12/05/17] metformin 500 mg PO TIDCM 08/26/15 [History Last Taken 12/05/17] ascorbic acid (vitamin C) 500 mg PO DAILY 12/09/16 [History Last Taken 12/05/17] atenolol 50 mg PO BID 12/09/16 [History Last Taken 12/05/17] cholecalciferol (vitamin D3) 1,000 unit PO DAILY 12/09/16 [History Last Taken 12/05/17] cyanocobalamin (vitamin B-12) 1,000 mcg PO DAILY 12/09/16 [History Last Taken 12/05/17] multivitamin 1 ea PO DAILY 12/09/16 [History Last Taken 12/05/17] omega-3 fatty acids-fish oil 1 cap PO TID 12/09/16 [History Last Taken 12/05/17] aspirin 81 mg PO DAILY 06/11/17 [History Last Taken 12/05/17] amlodipine 10 mg PO DAILY #30 tab 06/13/17 [Rx Last Taken 12/05/17] lisinopril 20 mg PO DAILY 12/05/17 [History Last Taken 12/05/17] magnesium oxide 400 mg PO DAILY 03/01/20 [History Last Taken Unknown] furosemide 20 mg PO DAILY 03/02/20 [History Last Taken 02/29/20] amoxicillin-pot clavulanate 2 tab PO BID 09/29/20 [History Last Taken Unknown] Allergy/AdvReac Type Severity Reaction Status Date / Time adhesive Allergy Unknown Verified 09/29/20 10:25 atorvastatin calcium Allergy Unknown Verified 09/29/20 10:25 [From Lipitor] bacitracin Allergy Unknown Verified 09/29/20 10:25 [From Neosporin ([id number])] bacitracin zinc Allergy Unknown Verified 09/29/20 10:25 [From Neosporin ([id number])] fenofibrate nanocrystallized Allergy Unknown Verified 09/29/20 10:25 [From Tricor] fenofibrate,micronized Allergy Unknown Verified 09/29/20 10:25 [From Tricor] flurbiprofen Allergy Unknown Verified 09/29/20 10:25 gemfibrozil Allergy Unknown Verified 09/29/20 10:25 glipizide [From Glucotrol] Allergy Unknown Verified 09/29/20 10:25 metronidazole Allergy ALLERGY Verified 09/29/20 10:25 neomycin sulfate Allergy Unknown Verified 09/29/20 10:25 [From Neosporin ([id number])] polymyxin B Allergy Unknown Verified 09/29/20 10:25 [From Neosporin ([id number])] prednisolone acetate, Allergy ALLERGY Verified 09/29/20 10:25 micronized simvastatin Allergy ALLERGY Verified 09/29/20 10:25 tramadol [From Ultram] Allergy ALLERGY Verified 09/29/20 10:25 pravastatin AdvReac Other Verified 09/29/20 10:25 Family History Mother Diabetes Father Hypertension CVA (cerebral vascular accident) Brother Lung cancer Sister Breast cancer COPD (chronic obstructive pulmonary disease) Surgical History History of cholecystectomy History of heart bypass surgery History of knee replacement Social History Smoking Status: Never smoker additional social history: USES ASPIRIN ROS ROS ED Constitutional Constitutional ED: Denies chills or weight loss Eyes Eyes: Denies change in vision or diplopia ENT ENT ED: Denies ear pain, rhinorrhea or sore throat Cardiovascular Cardiovascular: Denies chest pain, orthopnea, palpitations or racing heartbeat Respiratory/Chest Respiratory/Chest: Denies cough, dyspnea or orthopnea Gastrointestinal Gastrointestinal: Denies abdominal pain, diarrhea, nausea or vomiting Genitourinary Genitourinary ED: Denies dysuria, hematuria or urinary frequency Musculoskeletal Musculoskeletal: Denies arthralgias or myalgias Integumentary Reports other Details: Chronic wound right ankle new wound right great toe ; Denies abscess or rash Neurologic Neurologic: Denies headache(s) or weakness Psychiatric Psychiatric: Denies anxiety, depression, suicidal ideation or suicidal thoughts Endocrine Endocrinology: Denies polydipsia, polyphagia or polyuria Allergic/Immunologic Allergic/Immunologic ED: Denies mouth swelling, tongue swelling or urticaria EXAM Physical Exam Const Vital Signs: 09/29/20 10:25 Temperature 96.9 F L Temperature Source Temporal Pulse Rate 56 L Respiratory Rate 14 Blood Pressure 144/60 H Blood Pressure Mean 88 Pulse Ox 97 Oxygen Delivery Method Room Air Positive well nourished and well developed General Appearance ED: well developed; Negative for pallor HEENT Reports normocephalic, head/scalp atraumatic and moist mucous membranes Eyes PERRL and EOMs intact bilaterally Neck no lymphadenopathy, supple and no JVD Resp normal respiratory effort and clear to auscultation bilaterally Cardio regular rate, regular rhythm and no murmurs GI normal to inspection, nondistended, normoactive bowel sounds and non-tender Palpation: soft Back/Spine no CVA tenderness and normal ROM Extremity General Extremety ED: Negative for edema or tenderness General Extremity: Negative for edema Neuro oriented x3 and CN's II-XII intact bilaterally Sensorium / Orientation: alert Motor Exam: strength 5/5 throughout Psych mental status grossly normal Mood & Affect: Negative for depressed or tearful Skin Skin Narrative: There is a right lateral ankle wound down to subcutaneous tissue. Measuring approximately 3-1/2 cm. The right great toe demonstrates wound with exposed bone. Wounds are fairly dry. General Skin Exam: Negative for jaundice or pallor MDM MDM MDM Narrative Medical decision making narrative: Anaerobic and aerobic cultures were obtained from both wounds. Blood cultures were obtained. Patient received vancomycin and Zosyn. My interpretation of the plain films of the foot is soft tissue swelling. Charcot foot changes. My interpretation of the plain films of the ankle is ulceration of the lateral malleolus. There is erosive changes along the medial malleolus. Basic blood work showed a white count of 13. Normal lactic acid. Patient received vancomycin and Zosyn. I spoke with the hospitalist who will be admitting. Lab Data Labs: Laboratory Results - last 24 hr 09/29/20 09/29/20 09/29/20 11:15 11:15 11:15 WBC 13.0 H RBC 4.72 Hgb 13.9 Hct 42.1 MCV 89.2 MCH 29.4 MCHC 33.0 RDW Std Deviation 42.4 RDW Coeff of Monique 12.8 Plt Count 264 MPV 10.5 Immature Gran % (Auto) 0.700 Neut % (Auto) 64.4 Lymph % (Auto) 23.0 [place] % (Auto) 10.1 H Eos % (Auto) 1.2 Baso % (Auto) 0.6 Absolute Neuts (auto) 8.4 H Absolute Lymphs (auto) 2.99 Nucleated RBC % 0 PT 12.8 INR 1.0 APTT 41.2 H Sodium 136 Potassium 3.9 Chloride 104 Carbon Dioxide 26.0 Anion Gap 6 BUN 21 H Creatinine 1.13 H Estim Creat Clear Calc 34.86 Est GFR (MDRD) Af Amer 60 Est GFR (MDRD) Non-Af 49 L BUN/Creatinine Ratio 18.6 Glucose 113 H Lactic Acid Calcium 9.5 Total Bilirubin 0.90 AST 16 ALT 14 Alkaline Phosphatase 71 Total Protein 8.0 Albumin 3.4 Globulin 4.6 H Albumin/Globulin Ratio 0.7 L 09/29/20 11:15 WBC RBC Hgb Hct MCV MCH MCHC RDW Std Deviation RDW Coeff of Monique Plt Count MPV Immature Gran % (Auto) Neut % (Auto) Lymph % (Auto) [place] % (Auto) Eos % (Auto) Baso % (Auto) Absolute Neuts (auto) Absolute Lymphs (auto) Nucleated RBC % PT INR APTT Sodium Potassium Chloride Carbon Dioxide Anion Gap BUN Creatinine Estim Creat Clear Calc Est GFR (MDRD) Af Amer Est GFR (MDRD) Non-Af BUN/Creatinine Ratio Glucose Lactic Acid 1.7 Calcium Total Bilirubin AST ALT Alkaline Phosphatase Total Protein Albumin Globulin Albumin/Globulin Ratio Radiography Diagnostic Testing: Radiology Impression Ankle X-Ray 09/29/20 12:20 IMPRESSION: Soft tissue swelling with ulceration overlying the lateral malleolus. Findings in keeping with Charcot''s deformity of the hindfoot and midfoot. Erosive changes along the medial malleolus. Osteomyelitis should BE pulled out. Electronically Signed: Cuco Manuel MD at 12:54 EDT , Service support , Foot X-Ray 09/29/20 12:20 IMPRESSION: Diffuse soft tissue swelling. Charcot''s deformity of the hindfoot and midfoot. Amputation of the third toe. Electronically Signed: Cuco Manuel MD at 12:56 EDT , Service support , Discharge Plan Dx/Rx/DC Orders Clinical Impression: Diabetic foot ulcer, Peripheral arterial disease, Diabetic ankle ulcer Disposition [facility]
[2020-09-29 11:46] LABS: Prothrombin Time (Protime)PT. 12.8 SECONDS (11.7-14.9)
[2020-09-29 11:47] LABS: Partial Thromboplast Time 41.2 Seconds (24.1-36.2)
[2020-09-29 11:50] LABS: Absolute Lymphocyte Count 2.99 X10^3/uL (0.83-4.51); Absolute Neutrophil Count 8.4 X10^3/uL (2.0-7.7); Basophil# 0.08 X10^3/uL; Basophil% 0.6 % (0-1); Eosinophil# 0.16 X10^3/uL; Eosinophils% 1.2 % (0-5); Hematocrit 42.1 % (37-47); Hemoglobin 13.9 g/dL (12.0-15.0); Lymphocyte # 2.99 X10^3/ul (0.83-4.51); Mean Corpuscular Hgb 29.4 pg (27.0-32.0); Mean Corpuscular Volume 89.2 fL (81-99); Mean Platelet Vol. 10.5 fl (6.2-12.0); Monocyte# 1.31 X10^3/uL; Monocyte% 10.1 % (0-10); NRBC Flagged by Analyzer 0 % (0-5); Neutrophil # 8.35 X10^3/uL (2.7-7.7); Neutrophil % 64.4 % (47-70); Platelet Count 264 K/mm3 (150-450); RBC Distribution Width CV 12.8 % (11.6-14.6); RBC Distribution Width SD 42.4 fl (35.1-43.9); Red Blood Count 4.72 M/mm3 (4.2-5.4)
[2020-09-29 11:55] LABS: ALB/GLOB Ratio 0.7 RATIO (0.9-2.4); AST(SGOT) 16 U/L (15-37); Alanine Aminotransfer ALT/SGPT 14 U/L (13-56); Albumin, Serum 3.4 g/dL (3.2-5.0); Alkaline Phosphatase 71 U/L (45-117); Anion Gap 6 (5-15); BUN 21 mg/dL (7-18); BUN/Creat Ratio 18.6 RATIO (10-20); Calcium,Total 9.5 mg/dL (8.5-10.1); Chloride 104 mmol/L (98-107); Creatinine, Serum 1.13 mg/dL (0.55-1.02); EST Glomerular Filtration Rate 49 mL/min (>60); Est Glom Filt Rate - Afr Amer 60 mL/min (>60); Estimated Creatinine Clearance 34.86 ml/min; Globulin 4.6 g/dL (2.2-4.2); Glucose 113 mg/dL (74-106); Potassium 3.9 mmol/L (3.5-5.1); Sodium Level 136 mmol/L (136-145)
[2020-09-29 12:02] LABS: Lactic Acid 1.7 mmol/L (0.4-1.9)
--- NOTE | 2020-09-29 12:20 | RAD_ITS ---
STUDY: X-RAY - RIGHT ANKLE REASON FOR EXAM: Female, 79 years old. Infection TECHNIQUE: 3 view(s) of the ankle. COMPARISON: None. FINDINGS: Erosive changes are seen along the medial malleolus. Diffuse soft tissue swelling with the ulcerated lesion overlying the distal lateral malleolus. Degenerative changes of the distal tibial talar joint. This evidence of a Charcot deformity of the hindfoot and midfoot with disruption of the tarsal articulation and sclerosis. Plantar spurs. RAD/Ankle min 3 Views IMPRESSION: Soft tissue swelling with ulceration overlying the lateral malleolus. Findings in keeping with Charcot''s deformity of the hindfoot and midfoot. Erosive changes along the medial malleolus. Osteomyelitis should BE pulled out. Electronically Signed: Cuco Manuel MD at 12:54 EDT , Service support ,
--- NOTE | 2020-09-29 12:20 | RAD_ITS ---
STUDY: X-RAY - RIGHT FOOT CLINICAL: Female, 79 years old. Infection TECHNIQUE: 3 view(s) of the foot. COMPARISON: Comparison is made with prior study dated 03/02/2020. FINDINGS: There is evidence of a Charcot''s deformity of the hindfoot and midfoot with the sclerosis and destruction of the tarsal articulations. There is demineralization of the metatarsi. Prior amputation of the third toe. There is degenerative arthrosis of the metatarsophalangeal joint of the hallux with a hallux valgus deformity. Prior bunionectomy. Normal second through fifth metatarsophalangeal joints. Normal interphalangeal joints and phalanges of the lesser toes. Diffuse soft tissue swelling. RAD/Foot min 3 Views IMPRESSION: Diffuse soft tissue swelling. Charcot''s deformity of the hindfoot and midfoot. Amputation of the third toe. Electronically Signed: Cuco Manuel MD at 12:56 EDT , Service support ,
--- NOTE | 2020-09-29 13:18 | PCM.HP.STD ---
HPI - General General Date of Admission: 09/29/20 HPI Narrative DARREN SANDOVAL, is a 79 F who presents from [facility] this office secondary to exposed bone in the area of cellulitis on the right. She does have a history of Charcot foot secondary diabetes and was being managed on doxycycline and amoxicillin for her current diabetic foot ulcer. She did complete the doxycycline but did not complete the amoxicillin secondary to upset stomach. She remains afebrile however there was concern for osteomyelitis given the exposed bone and therefore she was sent into the hospital for further IV antibiotics as well as an MRI for further clarification of diagnosis. She did have a creatinine of 1.13 which is around baseline. She has white count of 13 but no other sirs criteria. [facility] Medical History (Updated 09/29/20 @ 14:30 by Julieth Guidry) Arthritis Breast lump in female Cataracts, bilateral Diabetes Diverticulosis Gallstones Heart failure High blood pressure Kidney stones Non-smoker Osteoarthritis Home Medications glyburide 5 mg PO DAILY@0800 08/26/15 [History Last Taken 09/29/20] metformin 500 mg PO TIDCM 08/26/15 [History Last Taken 09/29/20] ascorbic acid (vitamin C) 500 mg PO DAILY 12/09/16 [History Last Taken 09/29/20] atenolol 50 mg PO BID 12/09/16 [History Last Taken 09/29/20] cholecalciferol (vitamin D3) 1,000 unit PO DAILY 12/09/16 [History Last Taken 09/29/20] cyanocobalamin (vitamin B-12) 1,000 mcg PO DAILY 12/09/16 [History Last Taken 09/29/20] multivitamin 1 ea PO DAILY 12/09/16 [History Last Taken 09/29/20] omega-3 fatty acids-fish oil 1 cap PO TID 12/09/16 [History Last Taken 09/29/20] aspirin 81 mg PO DAILY 06/11/17 [History Last Taken 09/29/20] lisinopril 20 mg PO DAILY 12/05/17 [History Last Taken 09/29/20] magnesium oxide 400 mg PO DAILY 03/01/20 [History Last Taken 09/29/20] furosemide 20 mg PO DAILY 03/02/20 [History Last Taken 09/29/20] amlodipine 10 mg PO DAILY 09/29/20 [History Last Taken 09/29/20] Allergy/AdvReac Type Severity Reaction Status Date / Time adhesive Allergy Unknown Verified 09/29/20 10:25 atorvastatin calcium Allergy Unknown Verified 09/29/20 10:25 [From Lipitor] bacitracin Allergy Unknown Verified 09/29/20 10:25 [From Neosporin ([id number])] bacitracin zinc Allergy Unknown Verified 09/29/20 10:25 [From Neosporin ([id number])] fenofibrate nanocrystallized Allergy Unknown Verified 09/29/20 10:25 [From Tricor] fenofibrate,micronized Allergy Unknown Verified 09/29/20 10:25 [From Tricor] flurbiprofen Allergy Unknown Verified 09/29/20 10:25 gemfibrozil Allergy Unknown Verified 09/29/20 10:25 glipizide [From Glucotrol] Allergy Unknown Verified 09/29/20 10:25 metronidazole Allergy ALLERGY Verified 09/29/20 10:25 neomycin sulfate Allergy Unknown Verified 09/29/20 10:25 [From Neosporin ([id number])] polymyxin B Allergy Unknown Verified 09/29/20 10:25 [From Neosporin ([id number])] prednisolone acetate, Allergy ALLERGY Verified 09/29/20 10:25 micronized simvastatin Allergy ALLERGY Verified 09/29/20 10:25 tramadol [From Ultram] Allergy ALLERGY Verified 09/29/20 10:25 pravastatin AdvReac Other Verified 09/29/20 10:25 Family History Mother Diabetes Father Hypertension CVA (cerebral vascular accident) Brother Lung cancer Sister Breast cancer COPD (chronic obstructive pulmonary disease) Surgical History History of cholecystectomy History of heart bypass surgery History of knee replacement Social History Smoking Status: Never smoker additional social history: USES ASPIRIN ROS Constitutional Constitutional: Denies chills, fatigue, fever(s) or malaise Eyes Eyes: Denies blurry vision ENT HEENT: Denies headache(s) or nasal discharge Cardiovascular Cardiovascular: Denies chest pain, dyspnea on exertion or syncope Respiratory/Chest Respiratory/Chest: Denies cough, shortness of breath at rest or shortness of breath with exertion Gastrointestinal Gastrointestinal: Denies constipation, diarrhea, nausea or vomiting Genitourinary Genitourinary: Denies dysuria Integumentary Integumentary: Reports erythema Neurologic Neurologic: Denies focal weakness, numbness or tremor(s) Psychiatric Psychiatric: Denies anxiety or depression Vital Signs Vital Signs Vital Signs: 09/29/20 10:25 Temperature 96.9 F L Temperature Source Temporal Pulse Rate 56 L Respiratory Rate 14 Blood Pressure 144/60 H Blood Pressure Mean 88 Pulse Ox 97 Oxygen Delivery Method Room Air Weight Weight: 150 lb Body Mass Index (BMI) 25.7 Physical Exam Const alert, oriented x3 and no apparent distress General Appearance: cooperative HEENT normocephalic and moist oral mucous membranes Eyes PERRL, EOMs intact bilaterally and conjunctivae normal Neck supple and no JVD Resp normal respiratory effort, no retractions, no use of accessory muscles and clear to auscultation bilaterally Auscultation: Negative for crackles, rales, rhonchi or wheezes Cardio regular rate, regular rhythm, S1 normal heart sound, S2 normal heart sound and no murmurs GI soft to palpation, non-tender and non-distended; Negative for hepatosplenomegaly Extremity no clubbing, cyanosis or edema Skin Skin Narrative: 3cm right lateral ankle wound with exposed subcutaneous tissue, and right great toe ulcer with exposed bone Neuro no focal motor deficits and no sensory deficits noted Psych affect normal Appearance: appropriate Results Lab / Micro Data Result Diagrams: 09/29/20 11:15 09/29/20 11:15 Labs: Laboratory Results - last 24 hr 09/29/20 09/29/20 09/29/20 11:15 11:15 11:15 WBC 13.0 H RBC 4.72 Hgb 13.9 Hct 42.1 MCV 89.2 MCH 29.4 MCHC 33.0 RDW Std Deviation 42.4 RDW Coeff of Monique 12.8 Plt Count 264 MPV 10.5 Immature Gran % (Auto) 0.700 Neut % (Auto) 64.4 Lymph % (Auto) 23.0 [place] % (Auto) 10.1 H Eos % (Auto) 1.2 Baso % (Auto) 0.6 Absolute Neuts (auto) 8.4 H Absolute Lymphs (auto) 2.99 Nucleated RBC % 0 PT 12.8 INR 1.0 APTT 41.2 H Sodium 136 Potassium 3.9 Chloride 104 Carbon Dioxide 26.0 Anion Gap 6 BUN 21 H Creatinine 1.13 H Estim Creat Clear Calc 34.86 Est GFR (MDRD) Af Amer 60 Est GFR (MDRD) Non-Af 49 L BUN/Creatinine Ratio 18.6 Glucose 113 H Lactic Acid Calcium 9.5 Total Bilirubin 0.90 AST 16 ALT 14 Alkaline Phosphatase 71 Total Protein 8.0 Albumin 3.4 Globulin 4.6 H Albumin/Globulin Ratio 0.7 L 09/29/20 11:15 WBC RBC Hgb Hct MCV MCH MCHC RDW Std Deviation RDW Coeff of Monique Plt Count MPV Immature Gran % (Auto) Neut % (Auto) Lymph % (Auto) [place] % (Auto) Eos % (Auto) Baso % (Auto) Absolute Neuts (auto) Absolute Lymphs (auto) Nucleated RBC % PT INR APTT Sodium Potassium Chloride Carbon Dioxide Anion Gap BUN Creatinine Estim Creat Clear Calc Est GFR (MDRD) Af Amer Est GFR (MDRD) Non-Af BUN/Creatinine Ratio Glucose Lactic Acid 1.7 Calcium Total Bilirubin AST ALT Alkaline Phosphatase Total Protein Albumin Globulin Albumin/Globulin Ratio Radiology Impression Ankle X-Ray 09/29/20 12:20 IMPRESSION: Soft tissue swelling with ulceration overlying the lateral malleolus. Findings in keeping with Charcot''s deformity of the hindfoot and midfoot. Erosive changes along the medial malleolus. Osteomyelitis should BE pulled out. Electronically Signed: Cuco Manuel MD at 12:54 EDT , Service support , Foot X-Ray 09/29/20 12:20 IMPRESSION: Diffuse soft tissue swelling. Charcot''s deformity of the hindfoot and midfoot. Amputation of the third toe. Electronically Signed: Cuco Manuel MD at 12:56 EDT , Service support , Assessment & Plan Assessment/Plan (1) Diabetic ankle ulcer: (2) Diabetic foot ulcer: (3) Type 2 diabetes mellitus: PLAN: 1. Diabetic foot and ankle ulcer/Charcot foot/type 2 diabetes/CKD 3a -Consult podiatry -Continue the Vanco and Zosyn -Obtain MRI for evaluation for osteomyelitis if present may need to consult infectious disease for long-term antibiotics versus surgery -We will continue sliding scale insulin and make adjustments as necessary, Accu-Cheks AC at bedtime 2. HTN/HLD/CAD status post CABG -We will continue with her home blood pressure medications -We will continue with her Lasix and her lisinopril -She is allergic to statins and will hold her aspirin in preparation for surgery DVT: SCDs Charges/Coding Visit Charges Inpatient E&M: 04935 Init Hosp L2
[2020-09-29 13:47] VITALS: BP 186/65; PULSE 63; RESP 18; TEMP 36.3; O2SAT 95
--- NOTE | 2020-09-29 13:55 | ART_ITS ---
Reason For Study: Ulcer Procedure A bilateral lower extremity continuous wave Doppler with analog waveform analysis,segmental pressures,and ankle brachial indexes without exercise. Left Segmental Pressures Left brachial= 189mmHg. Left posterior tibial artery = 103mmHg. Left dorsalis pedis artery = 127mmHg. Right Segmental Pressures Right brachial= 198mmHg. Right posterior tibial artery = 83mmHg. Indices The right ankle brachial index by the posterior tibial artery is 0.42. The left ankle brachial index by the posterior tibial artery is 0.52. The left ankle brachial index by the dorsalis pedis is 0.64. VL/Lower Ext Art Exam w/o Exercis Interpretation Summary Technically limited examination. Bandages prohibited right dorsalis pedis arter y waveforms and pressure. No toe pressures were obtained. Current right great toe wound and his tory of left great toe amputation Abnormal right posterior tibial resting ankle-brachial index of 0.42. Doppler w aveform is biphasic. This is consistent with moderately severe to severe arterial occlusive disease Left lower extremity demonstrates a PT and DP ankle-brachial index of 0.52 on 0 .64 with biphasic left posterior tibial and dorsalis pedis Doppler waveforms consistent with mode rately severe arterial occlusive disease Ordering Physician: Moriah Bernal Referring Physician: Kelsy Mensah Performed By: Margarita Chacon RDCS/RVT
--- NOTE | 2020-09-29 13:56 | MRI_ITS ---
STUDY: MRI RIGHT ANKLE WITH AND WITHOUT CONTRAST REASON FOR EXAM: Female, 79 years old. RT ANKLE OSTEOMYELITIS TECHNIQUE: Standarized fat and water weighted pulse sequences were obtained in all 3 orthogonal plane pre and post intravenous administration of IV 15 cc dotarem. COMPARISON: None. FINDINGS: Diffuse skin thickening and edema of the subcutaneous kidneys fat consistent with passive congestion or cellulitis. No loculated fluid collection to suggest abscess. Severe muscular atrophy. There is tenosynovitis of the posterior tibialis tendon sheath with an intrinsic normal tendon. There is tenosynovitis of the flexor digitorum longus tendon sheath, without a tendinosis or tendon tear. There is tenosynovitis of the flexor hallucis longus tendon sheath, with pooling of fluid in the [place] of [place], which may be acting as an entrapping lesion upon the plantar cutaneous nerves. There is a tenosynovitis of the peroneal tendons without a demonstrated tendon tear. Normal tibialis anterior tendon. Normal extensor hallucis longus tendon. Normal extensor digitorum longus tendons. Normal Achilles tendon and teno-osseous insertion. Normal plantar fascia. Normal plantar calcaneal tubercles. Normal intrinsic muscles of the rearfoot. Normal distal tibiofibular syndesmotic ligamentous complex. Normal lateral ligamentous complex. Normal subtalar ligaments and sinus tarsi. Normal deltoid ligamentous complexes. Normal plantar calcaneonavicular (spring) ligament. Severe tibiotalar joint arthrosis with large erosions and stress reaction. Normal talar dome. Severe posterior subtalar joint arthrosis with large erosions and stress reaction. Normal talonavicular articulation. Normal calcaneocuboid articulation. Severe midfoot arthrosis. 2.5 cm cyst of the body the calcaneus. There is no abnormal contrast enhancement. MRI/Lower Ext Joint Only W/WO Cont IMPRESSION: 1. Passive congestion or cellulitis but no abscess. No osteomyelitis. 2. Severe muscular atrophy. 3. Flexor tendon and peroneal tendon tenosynovitis. 4. Severe tibiotalar, posterior subtalar, and midfoot arthrosis with erosions and stress reaction. 5. 2.5 cm cyst of the calcaneus. Electronically Signed: Roel Perez MD at 20:15 EDT Tel , Service support ,
--- NOTE | 2020-09-29 13:56 | MRI_ITS ---
STUDY: MRI RIGHT FOREFOOT WITH AND WITHOUT CONTRAST REASON FOR EXAM: Female, 79 years old. RT FOOT OSTEOMYELITIS TECHNIQUE: Standardized fat and water weighted pulse sequences were obtained in all 3 orthogonal planes, post contrast administration. IV 15 cc dotarem was administered for the contrast portion of the examination. COMPARISON: None. FINDINGS: There is degenerative arthrosis of the metatarsophalangel joint of the hallux. Normal tibial and fibular sesamoids, with normal sesamoids-first metatarsal articulations. Normal interphalangeal joint of the hallux. Normal proximal and distal phalanges of the great toe. Normal medial and lateral heads of the flexor hallucis brevis tendons. Normal flexor and extensor hallucis longus tendons. Normal second through fifth metatarsophalangeal (MTP) joints. Normal interphalangeal joints of the second through fifth toes. Normal proximal, middle and distal phalanges of the second through fifth toes. Status post amputation of the third digit. Normal flexor and extensor tendons of the second through fifth toes. Normal first through fourth intermetatarsal spaces. Normal visualized metatarsi. There is diffuse atrophy of the intrinsic muscles of the forefoot consisten twith a peripheral neuropathy. Dorsal dorsal skin thickening and edema of the subcutaneous fat possibly from passive congestion or cellulitis but no loculated fluid collection to suggest abscess. MRI/Lower Ext No Joint W/WO Cont IMPRESSION: Passive congestion or cellulitis but no abscess or osteomyelitis per Electronically Signed: Roel Perez MD at 20:20 EDT Tel , Service support ,
[2020-09-29 14:20] VITALS: BMI 25.0
--- NOTE | 2020-09-29 15:13 | PCM.RX.CS ---
Consult Pharmacy has been consulted to manage selected antiobiotic: Vancomycin Type of Consult: New start Suspected Infection: Osteomyelitis Prior Doses of Antibiotics Received/Current Regimen: Medications Vancomycin HCl (Vancomycin) 1,000 mg in 200 mls @ 200 mls/hr IV Q24H EMORY to begin 09/30/20 1200 Discontinued Medications Vancomycin HCl 1,750 mg/ (Sodium Chloride) 535 mls @ 250 mls/hr IV X1 ONE Stop: 09/29/20 13:08 Last Admin: 09/29/20 12:31 Dose: 250 mls/hr Documented by: Labs: Sodium 136 mmol/L (136-145) 09/29/20 11:15 Potassium 3.9 mmol/L (3.5-5.1) 09/29/20 11:15 Chloride 104 mmol/L (98-107) 09/29/20 11:15 Carbon Dioxide 26.0 mmol/L (21.0-32.0) 09/29/20 11:15 Anion Gap 6 (5-15) 09/29/20 11:15 BUN 21 mg/dL (7-18) H 09/29/20 11:15 Creatinine 1.13 mg/dL (0.55-1.02) H 09/29/20 11:15 Est GFR (MDRD) Af Amer 60 mL/min (>60) 09/29/20 11:15 Est GFR (MDRD) Non-Af 49 mL/min (>60) L 09/29/20 11:15 BUN/Creatinine Ratio 18.6 RATIO (10-20) 09/29/20 11:15 Glucose 113 mg/dL (74-106) H 09/29/20 11:15 Microbiology: Microbiology 09/29/20 11:00 Wound - Ankle Gram Stain - Final 09/29/20 11:00 Wound - Toe Gram Stain - Final Weight used for dosin.1 kg Estimated Creatinine Clearance: 34.86 Goal Trough: 15-20 mcg/mL Pharmacy Plan for Drug Dosing: Pharmacy Service will continue to monitor and adjust dosing as required. Follow-Up Labs: Trough Vancomycin - draw before 3rd dose Labs to be done on [date and time ordered]: 10/01/20 4176
--- NOTE | 2020-09-29 15:46 | ADUL_ITS ---
Reason For Study: PVD, Ulcer Right Velocities Ext. Iliac Artery, dist = 97 cm./sec. Common Femoral Artery, mid = 100 cm./sec. Supf Femoral Artery, prox = 99 cm./sec. Supf Femoral Artery, mid = 159 cm./sec. Supf Femoral Artery, dist. = 102 cm./sec. Profunda Femoral Artery = 80 cm./sec. Popliteal Artery, prox. = 78 cm./sec. Popliteal Artery, mid = 84 cm./sec. Popliteal Artery, dist = 225 cm./sec. Post. Tibial Artery, prox = 19 cm./sec. Post. Tibial Artery, mid = 25 cm./sec. Post. Tibial Artery, dist = 35 cm./sec. Ant. Tibial Artery, prox = 89 cm./sec. Ant. Tibial Artery, mid = 188 cm./sec. Ant. Tibial Artery, dist = 493 cm./sec. No flow noted Rt PeroA. Procedure Exam performed portable in patient room. VL/US Art Duplex Unilat Lower Ext Interpretation Summary Calcific plaque right mid superficial femoral artery with less than 50% stenosi s. Calcific plaque right distal popliteal artery with greater than 50% stenosis Notably diminished flow right posterior tibial artery Greater than 50% stenosis right mid anterior tibial artery Abnormal elevated distal right anterior tibial artery flow consistent with last re stenosis No flow noted within the right peroneal artery Ordering Physician: Moriah Bernal Referring Physician: Kelsy Mensah Performed By: Margarita hCacon RDCS, RVT
--- NOTE | 2020-09-29 16:21 | PCM.CONS.GEN ---
Assessment & Plan Assessment/Plan (1) Ulcer of right lower extremity with muscle involvement without evidence of necrosis: (2) Ulcer of right foot with necrosis of bone: (3) Cellulitis of right lower limb: (4) Type 2 diabetes mellitus with diabetic polyneuropathy: (5) Other specified peripheral vascular diseases: PLAN: I reviewed and discussed her case today. Clinical documentation from Dr. Chao was [facility]. She already had ulcer debridements performed. She appears to have deep tissue exposure in her ulcer sites with delayed healing and now worsening cellulitis clinical appearance. There is concern for osteomyelitis. Her case is complicated with diabetes, peripheral vascular disease, and chronic kidney disease. The following work up and care recommendations were made: Dressing: Hydrogel and Adaptic to hallux and ankle ulcer sites daily Wash: Soap and water Offload: She already has a surgical shoe that does not apply pressure to the ulcer sites. Vascular: She had abnormal noninvasive vascular studies performed in 2012 and she reports she had lower extremity vascular intervention by Dr. Wilson at [facility] many years ago. I recommend getting some updated vascular studies and GERMAN, PVR, and systolic toe pressures were ordered in addition to arterial duplex Doppler of the right lower extremity. Updated vascular referral will be considered and is likely. Infection: She is afebrile at the time of admission and does have leukocytosis (white blood cell count 13). Sepsis is not apparent at this time. ESR and CRP pending. Cellulitis is also clinically apparent. She was started on renally dosed vancomycin and Zosyn. Wound culture was obtained in clinic and this is pending; mrsa pcr was added in addition to aerobic and anearobic testing. Blood cultures were obtained and this is pending. Imaging: X-rays (3 views of both the ankle and foot) were reviewed with decreased bone density to all osseous structures including the distal phalanx of the hallux could suggest osteomyelitis. There is no soft tissue emphysema or foreign body fractures or dislocations. Additional ankle and foot MRIs were ordered to confirm diagnosis of osteomyelitis which will guide antibiotic for surgical treatment options. This patient is currently opposed to amputation. Pain: Pain medication will be ordered Host factors: Her comorbidities are complicating his case. This patient is at risk for limb loss. A1C pending. I recommend nutritional optimization including Maciej to optimize healing. Medical management per hospitalist is greatly appreciated. I answered all the patient's questions. I answered her family members questions. I will follow her closely while in house. Please do not hesitate to call if you have any questions. Moriah Bernal DPM, [facility] [phone] HPI Consult Data Date of Consult: 09/29/20 HPI Narrative Reason for Consultation: Right ankle and toe ulcer with worsening infection HPI Narrative: DARREN SANDOVAL, is a 79 F presents to the emergency room for worsening right ankle and great toe ulcer. She was previously treated in the outpatient setting with Dr. Chao. She has failed outpatient care including amoxicillin and doxycycline. She is not able to tolerate the amoxicillin due to reported stomach irritation. She has worsening redness and pain. She relates the ankle ulcer has been present since March 2020 and her family member reports that her toe ulcer has been present for approximately 6 weeks. She denies recent injury. She denies claudication however does not walk an extended duration. She has loss of sensation that is consistent with neuropathy and this has been long-term.It is noted she also has a history of right midfoot charcot. [facility] Medical History (Updated 09/29/20 @ 16:[address] Moriah Bernal DPM) Arthritis Breast lump in female Cataracts, bilateral Diabetes Diverticulosis Gallstones Heart failure High blood pressure Kidney stones Non-smoker Osteoarthritis Home Medications glyburide 5 mg PO DAILY@0800 08/26/15 [History Last Taken 09/29/20] metformin 500 mg PO TIDCM 08/26/15 [History Last Taken 09/29/20] ascorbic acid (vitamin C) 500 mg PO DAILY 12/09/16 [History Last Taken 09/29/20] atenolol 50 mg PO BID 12/09/16 [History Last Taken 09/29/20] cholecalciferol (vitamin D3) 1,000 unit PO DAILY 12/09/16 [History Last Taken 09/29/20] cyanocobalamin (vitamin B-12) 1,000 mcg PO DAILY 12/09/16 [History Last Taken 09/29/20] multivitamin 1 ea PO DAILY 12/09/16 [History Last Taken 09/29/20] omega-3 fatty acids-fish oil 1 cap PO TID 12/09/16 [History Last Taken 09/29/20] aspirin 81 mg PO DAILY 06/11/17 [History Last Taken 09/29/20] lisinopril 20 mg PO DAILY 12/05/17 [History Last Taken 09/29/20] magnesium oxide 400 mg PO DAILY 03/01/20 [History Last Taken 09/29/20] furosemide 20 mg PO DAILY 03/02/20 [History Last Taken 09/29/20] amlodipine 10 mg PO DAILY 09/29/20 [History Last Taken 09/29/20] Allergy/AdvReac Type Severity Reaction Status Date / Time adhesive Allergy Unknown Verified 09/29/20 10:25 atorvastatin calcium Allergy Unknown Verified 09/29/20 10:25 [From Lipitor] bacitracin Allergy Unknown Verified 09/29/20 10:25 [From Neosporin ([id number])] bacitracin zinc Allergy Unknown Verified 09/29/20 10:25 [From Neosporin ([id number])] fenofibrate nanocrystallized Allergy Unknown Verified 09/29/20 10:25 [From Tricor] fenofibrate,micronized Allergy Unknown Verified 09/29/20 10:25 [From Tricor] flurbiprofen Allergy Unknown Verified 09/29/20 10:25 gemfibrozil Allergy Unknown Verified 09/29/20 10:25 glipizide [From Glucotrol] Allergy Unknown Verified 09/29/20 10:25 metronidazole Allergy ALLERGY Verified 09/29/20 10:25 neomycin sulfate Allergy Unknown Verified 09/29/20 10:25 [From Neosporin ([id number])] polymyxin B Allergy Unknown Verified 09/29/20 10:25 [From Neosporin ([id number])] prednisolone acetate, Allergy ALLERGY Verified 09/29/20 10:25 micronized simvastatin Allergy ALLERGY Verified 09/29/20 10:25 tramadol [From Ultram] Allergy ALLERGY Verified 09/29/20 10:25 pravastatin AdvReac Other Verified 09/29/20 10:25 Family History Mother Diabetes Father Hypertension CVA (cerebral vascular accident) Brother Lung cancer Sister Breast cancer COPD (chronic obstructive pulmonary disease) Surgical History History of cholecystectomy History of heart bypass surgery History of knee replacement Social History Smoking Status: Never smoker additional social history: USES ASPIRIN ROS Constitutional Constitutional: Denies chills, fatigue or fever(s) ENT HEENT: Reports abnormal hearing Cardiovascular Cardiovascular: Denies abdominal pain Respiratory/Chest Respiratory/Chest: Denies cough Gastrointestinal Gastrointestinal: Denies diarrhea or vomiting Musculoskeletal Musculoskeletal: Reports difficulty walking and extremity pain Integumentary Integumentary: Reports dry skin and wounds Neurologic Neurologic: Reports numbness Psychiatric Psychiatric: Denies depression Physical Exam Const alert and oriented x3 General Appearance: cooperative HEENT normocephalic Extremity Extremity Narrative: No calf tenderness Diminished pulses Muscle wasting noted rocker bottome right foot consistent with prior charcot without laxity or calor or crepitus no bogginess or fluctuance on palpation adjacent to ulcer sites right third toe amputation left hallux/first ray resection/amputation General Extremity: edema and no tenderness to palpation of joints or extremities; Negative for cyanosis Skin Skin Narrative: no purulence, no streaking, no odor. Erythema to right hallux and visualized bone in the wound bed dorsally. Deep tissue exposed to the right lateral ankle ulcer site also including exposed peroneal tendon General Skin Exam: erythema Neuro Neuro Narrative: lack of normal epicritic sensation via light touch is consistent with neuropathy status Psych cooperative and affect normal Lab / Micro Data Result Diagrams: 09/29/20 11:15 09/29/20 11:15 Labs: Laboratory Results - last 24 hr 09/29/20 09/29/20 09/29/20 11:15 11:15 11:15 WBC 13.0 H RBC 4.72 Hgb 13.9 Hct 42.1 MCV 89.2 MCH 29.4 MCHC 33.0 RDW Std Deviation 42.4 RDW Coeff of Monique 12.8 Plt Count 264 MPV 10.5 Immature Gran % (Auto) 0.700 Neut % (Auto) 64.4 Lymph % (Auto) 23.0 [place] % (Auto) 10.1 H Eos % (Auto) 1.2 Baso % (Auto) 0.6 Absolute Neuts (auto) 8.4 H Absolute Lymphs (auto) 2.99 Nucleated RBC % 0 PT 12.8 INR 1.0 APTT 41.2 H Sodium 136 Potassium 3.9 Chloride 104 Carbon Dioxide 26.0 Anion Gap 6 BUN 21 H Creatinine 1.13 H Estim Creat Clear Calc 34.86 Est GFR (MDRD) Af Amer 60 Est GFR (MDRD) Non-Af 49 L BUN/Creatinine Ratio 18.6 Glucose 113 H Lactic Acid Calcium 9.5 Total Bilirubin 0.90 AST 16 ALT 14 Alkaline Phosphatase 71 Total Protein 8.0 Albumin 3.4 Globulin 4.6 H Albumin/Globulin Ratio 0.7 L 09/29/20 11:15 WBC RBC Hgb Hct MCV MCH MCHC RDW Std Deviation RDW Coeff of Monique Plt Count MPV Immature Gran % (Auto) Neut % (Auto) Lymph % (Auto) [place] % (Auto) Eos % (Auto) Baso % (Auto) Absolute Neuts (auto) Absolute Lymphs (auto) Nucleated RBC % PT INR APTT Sodium Potassium Chloride Carbon Dioxide Anion Gap BUN Creatinine Estim Creat Clear Calc Est GFR (MDRD) Af Amer Est GFR (MDRD) Non-Af BUN/Creatinine Ratio Glucose Lactic Acid 1.7 Calcium Total Bilirubin AST ALT Alkaline Phosphatase Total Protein Albumin Globulin Albumin/Globulin Ratio Micro: Microbiology 09/29/20 11:00 Gram Stain - Final Wound - Ankle 09/29/20 11:00 Gram Stain - Final Wound - Toe Radiology Impression Ankle X-Ray 09/29/20 12:20 IMPRESSION: Soft tissue swelling with ulceration overlying the lateral malleolus. Findings in keeping with Charcot''s deformity of the hindfoot and midfoot. Erosive changes along the medial malleolus. Osteomyelitis should BE pulled out. Electronically Signed: Cuco Manuel MD at 12:54 EDT , Service support , Foot X-Ray 09/29/20 12:20 IMPRESSION: Diffuse soft tissue swelling. Charcot''s deformity of the hindfoot and midfoot. Amputation of the third toe. Electronically Signed: Cuco Manuel MD at 12:56 EDT , Service support ,
[2020-09-29 16:46] VITALS: BP 165/58; PULSE 60; RESP 16; TEMP 36.6; O2SAT 97
[2020-09-29 17:25] LABS: Bedside Glucose 186 mg/dL (70-110)
[2020-09-29] MEDS: Glucerna Shake 120 ML LIQUID PO (17:25)
[2020-09-29] MEDS: Insulin Lispro 100 UNIT/ML INSULN.PEN SC ×2 (17:26→21:44)
[2020-09-29 17:57] LABS: Erythrocyte Sedimentation Rate 51 mm/hr (0-30)
[2020-09-29 18:45] LABS: Hemoglobin A1c 5.7 % (3.8-5.6)
[2020-09-29 21:24] VITALS: BP 159/65; PULSE 71; RESP 18; TEMP 37.4; O2SAT 92
[2020-09-29] MEDS: MELATONIN 3 MG TABLET PO (21:46)
[2020-09-29] MEDS: Atenolol 50 MG Tablet PO (21:47)
[2020-09-29] MEDS: Acetaminophen 325 MG Tablet 650 MG PO (21:50)
[2020-09-29 22:00] LABS: Bedside Glucose 187 mg/dL (70-110)
[2020-09-29 22:15] LABS: M R Staph aureus DNA By PCR POSITIVE (Negative); Probe Check PASS; Staph aureus DNA By PCR POSITIVE (Negative)
[2020-09-29 22:16] LABS: M R Staph aureus DNA By PCR POSITIVE (Negative); Probe Check PASS; Staph aureus DNA By PCR POSITIVE (Negative)
[2020-09-30 03:51] VITALS: BP 119/65; PULSE 55; RESP 16; TEMP 36.9; O2SAT 92
[2020-09-30 06:00] LABS: Absolute Lymphocyte Count 1.02 X10^3/uL (0.83-4.51); Absolute Neutrophil Count 7.2 X10^3/uL (2.0-7.7); Basophil# 0.05 X10^3/uL; Basophil% 0.5 % (0-1); Eosinophil# 0.28 X10^3/uL; Eosinophils% 2.9 % (0-5); Hemoglobin 11.8 g/dL (12.0-15.0); Lymphocyte # 1.02 X10^3/ul (0.83-4.51); Lymphocyte % 10.7 % (19-41); Mean Corp Hgb Conc 32.8 g/dL (32-36); Mean Corpuscular Hgb 29.6 pg (27.0-32.0); Mean Corpuscular Volume 90.2 fL (81-99); Mean Platelet Vol. 10.6 fl (6.2-12.0); Monocyte# 0.99 X10^3/uL; Monocyte% 10.3 % (0-10); NRBC Flagged by Analyzer 0 % (0-5); Neutrophil # 7.17 X10^3/uL (2.7-7.7); Platelet Count 209 K/mm3 (150-450); RBC Distribution Width CV 12.9 % (11.6-14.6); RBC Distribution Width SD 42.8 fl (35.1-43.9); Red Blood Count 3.99 M/mm3 (4.2-5.4); White Blood Count 9.6 K/mm3 (4.4-11.0)
[2020-09-30 06:31] LABS: Bedside Glucose 86 mg/dL (70-110)
[2020-09-30 06:39] LABS: Anion Gap 6 (5-15); BUN 25 mg/dL (7-18); BUN/Creat Ratio 20.2 RATIO (10-20); Calcium,Total 8.7 mg/dL (8.5-10.1); Chloride 109 mmol/L (98-107); Creatinine, Serum 1.24 mg/dL (0.55-1.02); EST Glomerular Filtration Rate 44 mL/min (>60); Est Glom Filt Rate - Afr Amer 54 mL/min (>60); Estimated Creatinine Clearance 31.77 ml/min; Glucose 81 mg/dL (74-106); Potassium 4.1 mmol/L (3.5-5.1); Sodium Level 139 mmol/L (136-145)
--- NOTE | 2020-09-30 08:45 | CASEMGMT ---
FLOR DOMINGO Face to Face with patient for initial transition planning/care coordination assessment. RN CM introduced self and role at [facility]. Patient lying in bed, alert and oriented. Patient willing to participate in assessment and is able to answer all questions appropriately. Care providers, pharmacy, and demographics verified. Patient wishes to discharge home, possible HHC for wound care and IV ATBs. Patient states she has no further needs or concerns at this time. CM to follow for discharge planning needs that may arise. PCP: Makenna Specialists: Jeremie Medeiros [facility]: [facility] [employer] or [facility] retail Insurance: [facility] Prescription Benefit: none Living Will/HPOA: none LNOK: and daughter Living Arrangements: Patient lives with , daughter lives across the street. Patient lives in a 1 story home with no steps to enter. Patient states she is independent for self care but daughter helps at time. Daughter assists with wound care. Transportation: [facility] van or daughter DME/HHC: Patient states she has shower chair, raised toilet, cane, walker, and wheelchair at home. Patient states she has previously had [facility] HHC for IV ATBs Disposition Plan: Patient to discharge home with family support and follow-up plans in place. Will monitor for need for HHC at discharge. Brdigett FERRERA, RN, CM
--- NOTE | 2020-09-30 09:30 | PN_ITS ---
Subjective Subjective This 79-year-old female seen bedside for right hallux and ankle ulcers that are chronic in nature. She had MRI completed and not vascular studies completed yet. She denies fever, chill, nausea, vomiting. Her pain is controlled. She reports less redness and swelling this morning. Objective Data Objective Data Vital Signs: Vital Signs Temp Pulse Resp BP Pulse Ox 98.4 F 55 L 16 119/65 92 09/30/20 03:51 09/30/20 03:51 09/30/20 03:51 09/30/20 03:51 09/30/20 03:51 Oxygen Delivery Method Room Air Weight: 66.1 kg Body Mass Index (BMI) 25.0 Intake & Output: Intake and Output for Last 24 Hours 09/28/20 09/29/20 09/30/20 23:59 23:59 23:59 Intake Total 585.0 / 1055.0 520.25 / 520.25 Balance 585.0 / 1055.0 520.25 / 520.25 Lab / Micro Data Result Diagrams: 09/30/20 05:15 09/30/20 05:15 Labs: Laboratory Results - last 24 hr 09/29/20 09/29/20 09/29/20 11:00 11:00 11:15 WBC 13.0 H RBC 4.72 Hgb 13.9 Hct 42.1 MCV 89.2 MCH 29.4 MCHC 33.0 RDW Std Deviation 42.4 RDW Coeff of Monique 12.8 Plt Count 264 MPV 10.5 Immature Gran % (Auto) 0.700 Neut % (Auto) 64.4 Lymph % (Auto) 23.0 Bartholomew % (Auto) 10.1 H Eos % (Auto) 1.2 Baso % (Auto) 0.6 Absolute Neuts (auto) 8.4 H Absolute Lymphs (auto) 2.99 Nucleated RBC % 0 ESR PT INR APTT Sodium Potassium Chloride Carbon Dioxide Anion Gap BUN Creatinine Estim Creat Clear Calc Est GFR (MDRD) Af Amer Est GFR (MDRD) Non-Af BUN/Creatinine Ratio Glucose Hemoglobin A1c Lactic Acid Calcium Total Bilirubin AST ALT Alkaline Phosphatase C-React Prot Ext Range Total Protein Albumin Globulin Albumin/Globulin Ratio S.aureus Protein A PCR POSITIVE H POSITIVE H MRSA (PCR) POSITIVE H POSITIVE H POC Glucose 09/29/20 09/29/20 09/29/20 11:15 11:15 11:15 WBC RBC Hgb Hct MCV MCH MCHC RDW Std Deviation RDW Coeff of Monique Plt Count MPV Immature Gran % (Auto) Neut % (Auto) Lymph % (Auto) Bartholomew % (Auto) Eos % (Auto) Baso % (Auto) Absolute Neuts (auto) Absolute Lymphs (auto) Nucleated RBC % ESR PT 12.8 INR 1.0 APTT 41.2 H Sodium 136 Potassium 3.9 Chloride 104 Carbon Dioxide 26.0 Anion Gap 6 BUN 21 H Creatinine 1.13 H Estim Creat Clear Calc 34.86 Est GFR (MDRD) Af Amer 60 Est GFR (MDRD) Non-Af 49 L BUN/Creatinine Ratio 18.6 Glucose 113 H Hemoglobin A1c Lactic Acid 1.7 Calcium 9.5 Total Bilirubin 0.90 AST 16 ALT 14 Alkaline Phosphatase 71 C-React Prot Ext Range Total Protein 8.0 Albumin 3.4 Globulin 4.6 H Albumin/Globulin Ratio 0.7 L S.aureus Protein A PCR MRSA (PCR) POC Glucose 09/29/20 09/29/20 09/29/20 11:15 11:15 11:15 WBC RBC Hgb Hct MCV MCH MCHC RDW Std Deviation RDW Coeff of Monique Plt Count MPV Immature Gran % (Auto) Neut % (Auto) Lymph % (Auto) Bartholomew % (Auto) Eos % (Auto) Baso % (Auto) Absolute Neuts (auto) Absolute Lymphs (auto) Nucleated RBC % ESR 51 H PT INR APTT Sodium Potassium Chloride Carbon Dioxide Anion Gap BUN Creatinine Estim Creat Clear Calc Est GFR (MDRD) Af Amer Est GFR (MDRD) Non-Af BUN/Creatinine Ratio Glucose Hemoglobin A1c 5.7 H Lactic Acid Calcium Total Bilirubin AST ALT Alkaline Phosphatase C-React Prot Ext Range 41.20 H Total Protein Albumin Globulin Albumin/Globulin Ratio S.aureus Protein A PCR MRSA (PCR) POC Glucose 09/29/20 09/29/20 09/30/20 16:41 21:43 05:15 WBC 9.6 RBC 3.99 L Hgb 11.8 L Hct 36.0 L MCV 90.2 MCH 29.6 MCHC 32.8 RDW Std Deviation 42.8 RDW Coeff of Monique 12.9 Plt Count 209 MPV 10.6 Immature Gran % (Auto) 0.600 Neut % (Auto) 75.0 H Lymph % (Auto) 10.7 L Bartholomew % (Auto) 10.3 H Eos % (Auto) 2.9 Baso % (Auto) 0.5 Absolute Neuts (auto) 7.2 Absolute Lymphs (auto) 1.02 Nucleated RBC % 0 ESR PT INR APTT Sodium Potassium Chloride Carbon Dioxide Anion Gap BUN Creatinine Estim Creat Clear Calc Est GFR (MDRD) Af Amer Est GFR (MDRD) Non-Af BUN/Creatinine Ratio Glucose Hemoglobin A1c Lactic Acid Calcium Total Bilirubin AST ALT Alkaline Phosphatase C-React Prot Ext Range Total Protein Albumin Globulin Albumin/Globulin Ratio S.aureus Protein A PCR MRSA (PCR) POC Glucose 186 H 187 H 09/30/20 09/30/20 05:15 06:24 WBC RBC Hgb Hct MCV MCH MCHC RDW Std Deviation RDW Coeff of Monique Plt Count MPV Immature Gran % (Auto) Neut % (Auto) Lymph % (Auto) Bartholomew % (Auto) Eos % (Auto) Baso % (Auto) Absolute Neuts (auto) Absolute Lymphs (auto) Nucleated RBC % ESR PT INR APTT Sodium 139 Potassium 4.1 Chloride 109 H Carbon Dioxide 24.0 Anion Gap 6 BUN 25 H Creatinine 1.24 H Estim Creat Clear Calc 31.77 Est GFR (MDRD) Af Amer 54 L Est GFR (MDRD) Non-Af 44 L BUN/Creatinine Ratio 20.2 H Glucose 81 Hemoglobin A1c Lactic Acid Calcium 8.7 Total Bilirubin AST ALT Alkaline Phosphatase C-React Prot Ext Range Total Protein Albumin Globulin Albumin/Globulin Ratio S.aureus Protein A PCR MRSA (PCR) POC Glucose 86 Micro: Microbiology 09/29/20 11:00 Wound - Ankle Gram Stain - Final 09/29/20 11:00 Wound - Toe Gram Stain - Final Radiography Diagnostic Testing: Radiology Impression Ankle X-Ray 09/29/20 12:20 IMPRESSION: Soft tissue swelling with ulceration overlying the lateral malleolus. Findings in keeping with Charcot''s deformity of the hindfoot and midfoot. Erosive changes along the medial malleolus. Osteomyelitis should BE pulled out. Electronically Signed: Cuco Manuel MD at 12:54 EDT , Service support , Foot X-Ray 09/29/20 12:20 IMPRESSION: Diffuse soft tissue swelling. Charcot''s deformity of the hindfoot and midfoot. Amputation of the third toe. Electronically Signed: Cuco Manuel MD at 12:56 EDT , Service support , Lower Extremity MRI 09/29/20 13:56 IMPRESSION: Passive congestion or cellulitis but no abscess or osteomyelitis per Electronically Signed: Roel Perez MD at 20:20 EDT Tel , Service support , Lower Extremity MRI 09/29/20 13:56 IMPRESSION: 1. Passive congestion or cellulitis but no abscess. No osteomyelitis. 2. Severe muscular atrophy. 3. Flexor tendon and peroneal tendon tenosynovitis. 4. Severe tibiotalar, posterior subtalar, and midfoot arthrosis with erosions and stress reaction. 5. 2.5 cm cyst of the calcaneus. Electronically Signed: Roel Perez MD at 20:15 EDT Tel , Service support , Physical Exam Const alert and oriented x3 General Appearance: cooperative HEENT normocephalic Extremity Extremity Narrative: No calf tenderness Diminished pulses Muscle wasting noted rocker bottom right foot consistent with prior charcot without laxity or calor or crepitus no bogginess or fluctuance on palpation adjacent to ulcer sites right third toe amputation General Extremity: edema and no tenderness to palpation of joints or extremities; Negative for cyanosis Skin Skin Narrative: no purulence, no streaking, no odor. Decreased erythema and edema. Mild serosanguineous drainage noted on dressings. Neuro Neuro Narrative: lack of normal epicritic sensation via light touch is consistent with neuropathy status Psych cooperative and affect normal Assessment & Plan Assessment/Plan (1) Ulcer of right lower extremity with muscle involvement without evidence of necrosis: (2) Ulcer of right foot with necrosis of bone: (3) Cellulitis of right lower limb: (4) Type 2 diabetes mellitus with diabetic polyneuropathy: (5) Other specified peripheral vascular diseases: PLAN: I reviewed and discussed her case today. Her diagnostic data was reviewed. The following work up and care recommendations were made: Dressing:Adaptic to hallux and ankle ulcer sites daily. This was changed this m [email or web address]. Offload: She already has a surgical shoe that does not apply pressure to the ulcer sites. Vascular: She had abnormal noninvasive vascular studies performed in 2013 and she reports she had lower extremity vascular intervention by Dr. Wilson at [facility] many years ago. I recommend updated vascular studies and GERMAN, PVR, and systolic toe pressures were ordered in addition to arterial duplex Doppler of the right lower extremity. Updated vascular referral will be considered and is likely. Infection: She is afebrile at the time of admission and white blood cell count decreased to 9. MRSA PCR positive to both sites/ulcers. She was started on renally dosed vancomycin and Zosyn. Wound culture was obtained in clinic and this is pendingBlood cultures were obtained and this is pending. Imaging: X-rays (3 views of both the ankle and foot) were reviewed with decreased bone density to all osseous structures including the distal phalanx of the hallux could suggest osteomyelitis. There is no soft tissue emphysema or foreign body fractures or dislocations. Additional ankle and foot MRIs were ordered and it does not appear abscess or osteomyelitis is present. Pain: Pain medication will be ordered Host factors: Her comorbidities are complicating his case. This patient is at risk for limb loss. I recommend nutritional optimization including Maciej to optimize healing. Medical management per hospitalist is greatly appreciated. I answered all the patient's questions. I will follow her closely while in house. Please do not hesitate to call if you have any questions. Discussed case with Dr. Lei. Moriah Bernal DPM, [facility] [phone]
[2020-09-30] MEDS: amLODIPine 10 MG Tablet PO (09:39)
[2020-09-30] MEDS: Atenolol 50 MG Tablet PO ×2 (09:39→21:07)
[2020-09-30] MEDS: Furosemide 20 MG Tablet PO (09:39)
[2020-09-30] MEDS: Lisinopril 20 MG Tablet PO (09:39)
[2020-09-30] MEDS: Ascorbic Acid 500 MG Tablet PO (09:40)
[2020-09-30] MEDS: Glucerna Shake 120 ML LIQUID PO ×3 (09:45→17:15)
[2020-09-30 09:46] VITALS: BP 135/48; PULSE 66; RESP 18; TEMP 36.7; O2SAT 96
--- NOTE | 2020-09-30 09:58 | NURSING ---
Dr. Jerry in room at this time performing dressing change.
--- NOTE | 2020-09-30 10:19 | PN.HOSP_ITS ---
Subjective Subjective Doing well, no issues overnight. Denies any extremity pain. Unfortunately we will have to wait to monitor he had vascular studies as they were not able to be completed yesterday, MRSA screen is positive Objective Data Objective Data Vital Signs: Vital Signs Temp Pulse Resp BP Pulse Ox 98.1 F 66 18 135/48 H 96 09/30/20 09:46 09/30/20 09:46 09/30/20 09:46 09/30/20 09:46 09/30/20 09:46 Oxygen Delivery Method Room Air Weight: 145 lb 11.609 oz Body Mass Index (BMI) 25.0 Intake & Output: Intake and Output for Last 24 Hours 09/29/20 09/30/20 10/01/20 03:59 03:59 03:59 Intake Total 1105.0 / 1105.0 0.25 / 0.25 Balance 1105.0 / 1105.0 0.25 / 0.25 Lab / Micro Data Result Diagrams: 09/30/20 05:15 09/30/20 05:15 Labs: Laboratory Results - last 24 hr 09/29/20 09/29/20 09/29/20 11:00 11:00 11:15 WBC 13.0 H RBC 4.72 Hgb 13.9 Hct 42.1 MCV 89.2 MCH 29.4 MCHC 33.0 RDW Std Deviation 42.4 RDW Coeff of Monique 12.8 Plt Count 264 MPV 10.5 Immature Gran % (Auto) 0.700 Neut % (Auto) 64.4 Lymph % (Auto) 23.0 [place] % (Auto) 10.1 H Eos % (Auto) 1.2 Baso % (Auto) 0.6 Absolute Neuts (auto) 8.4 H Absolute Lymphs (auto) 2.99 Nucleated RBC % 0 ESR PT INR APTT Sodium Potassium Chloride Carbon Dioxide Anion Gap BUN Creatinine Estim Creat Clear Calc Est GFR (MDRD) Af Amer Est GFR (MDRD) Non-Af BUN/Creatinine Ratio Glucose Hemoglobin A1c Lactic Acid Calcium Total Bilirubin AST ALT Alkaline Phosphatase C-React Prot Ext Range Total Protein Albumin Globulin Albumin/Globulin Ratio S.aureus Protein A PCR POSITIVE H POSITIVE H MRSA (PCR) POSITIVE H POSITIVE H POC Glucose 09/29/20 09/29/20 09/29/20 11:15 11:15 11:15 WBC RBC Hgb Hct MCV MCH MCHC RDW Std Deviation RDW Coeff of Monique Plt Count MPV Immature Gran % (Auto) Neut % (Auto) Lymph % (Auto) [place] % (Auto) Eos % (Auto) Baso % (Auto) Absolute Neuts (auto) Absolute Lymphs (auto) Nucleated RBC % ESR PT 12.8 INR 1.0 APTT 41.2 H Sodium 136 Potassium 3.9 Chloride 104 Carbon Dioxide 26.0 Anion Gap 6 BUN 21 H Creatinine 1.13 H Estim Creat Clear Calc 34.86 Est GFR (MDRD) Af Amer 60 Est GFR (MDRD) Non-Af 49 L BUN/Creatinine Ratio 18.6 Glucose 113 H Hemoglobin A1c Lactic Acid 1.7 Calcium 9.5 Total Bilirubin 0.90 AST 16 ALT 14 Alkaline Phosphatase 71 C-React Prot Ext Range Total Protein 8.0 Albumin 3.4 Globulin 4.6 H Albumin/Globulin Ratio 0.7 L S.aureus Protein A PCR MRSA (PCR) POC Glucose 09/29/20 09/29/20 09/29/20 11:15 11:15 11:15 WBC RBC Hgb Hct MCV MCH MCHC RDW Std Deviation RDW Coeff of Monique Plt Count MPV Immature Gran % (Auto) Neut % (Auto) Lymph % (Auto) [place] % (Auto) Eos % (Auto) Baso % (Auto) Absolute Neuts (auto) Absolute Lymphs (auto) Nucleated RBC % ESR 51 H PT INR APTT Sodium Potassium Chloride Carbon Dioxide Anion Gap BUN Creatinine Estim Creat Clear Calc Est GFR (MDRD) Af Amer Est GFR (MDRD) Non-Af BUN/Creatinine Ratio Glucose Hemoglobin A1c 5.7 H Lactic Acid Calcium Total Bilirubin AST ALT Alkaline Phosphatase C-React Prot Ext Range 41.20 H Total Protein Albumin Globulin Albumin/Globulin Ratio S.aureus Protein A PCR MRSA (PCR) POC Glucose 09/29/20 09/29/20 09/30/20 16:41 21:43 05:15 WBC 9.6 RBC 3.99 L Hgb 11.8 L Hct 36.0 L MCV 90.2 MCH 29.6 MCHC 32.8 RDW Std Deviation 42.8 RDW Coeff of Monique 12.9 Plt Count 209 MPV 10.6 Immature Gran % (Auto) 0.600 Neut % (Auto) 75.0 H Lymph % (Auto) 10.7 L [place] % (Auto) 10.3 H Eos % (Auto) 2.9 Baso % (Auto) 0.5 Absolute Neuts (auto) 7.2 Absolute Lymphs (auto) 1.02 Nucleated RBC % 0 ESR PT INR APTT Sodium Potassium Chloride Carbon Dioxide Anion Gap BUN Creatinine Estim Creat Clear Calc Est GFR (MDRD) Af Amer Est GFR (MDRD) Non-Af BUN/Creatinine Ratio Glucose Hemoglobin A1c Lactic Acid Calcium Total Bilirubin AST ALT Alkaline Phosphatase C-React Prot Ext Range Total Protein Albumin Globulin Albumin/Globulin Ratio S.aureus Protein A PCR MRSA (PCR) POC Glucose 186 H 187 H 09/30/20 09/30/20 05:15 06:24 WBC RBC Hgb Hct MCV MCH MCHC RDW Std Deviation RDW Coeff of Monique Plt Count MPV Immature Gran % (Auto) Neut % (Auto) Lymph % (Auto) [place] % (Auto) Eos % (Auto) Baso % (Auto) Absolute Neuts (auto) Absolute Lymphs (auto) Nucleated RBC % ESR PT INR APTT Sodium 139 Potassium 4.1 Chloride 109 H Carbon Dioxide 24.0 Anion Gap 6 BUN 25 H Creatinine 1.24 H Estim Creat Clear Calc 31.77 Est GFR (MDRD) Af Amer 54 L Est GFR (MDRD) Non-Af 44 L BUN/Creatinine Ratio 20.2 H Glucose 81 Hemoglobin A1c Lactic Acid Calcium 8.7 Total Bilirubin AST ALT Alkaline Phosphatase C-React Prot Ext Range Total Protein Albumin Globulin Albumin/Globulin Ratio S.aureus Protein A PCR MRSA (PCR) POC Glucose 86 Micro: Microbiology 09/29/20 11:00 Wound - Ankle Gram Stain - Final 09/29/20 11:00 Wound - Toe Gram Stain - Final Radiography Diagnostic Testing: Radiology Impression Ankle X-Ray 09/29/20 12:20 IMPRESSION: Soft tissue swelling with ulceration overlying the lateral malleolus. Findings in keeping with Charcot''s deformity of the hindfoot and midfoot. Erosive changes along the medial malleolus. Osteomyelitis should BE pulled out. Electronically Signed: Cuco Manuel MD at 12:54 EDT , Service support , Foot X-Ray 09/29/20 12:20 IMPRESSION: Diffuse soft tissue swelling. Charcot''s deformity of the hindfoot and midfoot. Amputation of the third toe. Electronically Signed: Cuco Manuel MD at 12:56 EDT , Service support , Lower Extremity MRI 09/29/20 13:56 IMPRESSION: Passive congestion or cellulitis but no abscess or osteomyelitis per Electronically Signed: Roel Perez MD at 20:20 EDT Tel , Service support , Lower Extremity MRI 09/29/20 13:56 IMPRESSION: 1. Passive congestion or cellulitis but no abscess. No osteomyelitis. 2. Severe muscular atrophy. 3. Flexor tendon and peroneal tendon tenosynovitis. 4. Severe tibiotalar, posterior subtalar, and midfoot arthrosis with erosions and stress reaction. 5. 2.5 cm cyst of the calcaneus. Electronically Signed: Roel Perez MD at 20:15 EDT Tel , Service support , Physical Exam Const alert, oriented x3 and no apparent distress General Appearance: cooperative HEENT normocephalic and moist oral mucous membranes Eyes PERRL, EOMs intact bilaterally and conjunctivae normal Neck supple and no JVD Resp normal respiratory effort, no retractions, no use of accessory muscles and clear to auscultation bilaterally Auscultation: Negative for crackles, rales, rhonchi or wheezes Cardio regular rate, regular rhythm, S1 normal heart sound, S2 normal heart sound and no murmurs GI soft to palpation, non-tender and non-distended; Negative for hepatosplenomegaly Extremity no clubbing, cyanosis or edema Skin no rashes or lesions noted Skin Narrative: 3cm right lateral ankle wound with exposed subcutaneous tissue, and right great toe ulcer with exposed bone Neuro no focal motor deficits and no sensory deficits noted Psych affect normal Appearance: appropriate Assessment & Plan Assessment/Plan (1) Diabetic ankle ulcer: (2) Diabetic foot ulcer: (3) Type 2 diabetes mellitus: PLAN: 1. Diabetic foot and ankle ulcer/Charcot foot/type 2 diabetes/CKD 3a -Consult podiatry -Continue the Vanco and Zosyn, cultures pending -MRI is negative for osteomyelitis in either the ankle or the toe -We will continue sliding scale insulin and make adjustments as necessary, Accu- Cheks AC at bedtime 2. HTN/HLD/CAD status post CABG -We will continue with her home blood pressure medications -We will continue with her Lasix and her lisinopril -She is allergic to statins and will hold her aspirin in preparation for surgery DVT: SCDs Charges/Coding Visit Charges Inpatient E&M: 71504 Subs Hosp L2
[2020-09-30] MEDS: Vancomycin IV 1,000 MG/200 ML BAG 200 MG IV (11:58)
[2020-09-30] MEDS: Insulin Lispro 100 UNIT/ML INSULN.PEN SC ×2 (12:07→21:10)
[2020-09-30] MEDS: Aspirin 81 MG TAB.CHEW PO (12:08)
[2020-09-30 12:16] LABS: Bedside Glucose 230 mg/dL (70-110)
[2020-09-30 15:24] VITALS: BP 145/51; PULSE 63; RESP 16; TEMP 37.4; O2SAT 95
[2020-09-30 17:21] LABS: Bedside Glucose 149 mg/dL (70-110)
[2020-09-30 20:03] VITALS: BP 151/50; PULSE 66; RESP 16; TEMP 36.9; O2SAT 94
[2020-09-30] MEDS: MELATONIN 3 MG TABLET PO (21:07)
[2020-09-30] MEDS: Acetaminophen 325 MG Tablet 650 MG PO (21:07)
[2020-09-30 21:21] LABS: Bedside Glucose 241 mg/dL (70-110)
[2020-10-01 02:18] VITALS: BP 148/56; PULSE 56; RESP 16; TEMP 36.6; O2SAT 93
[2020-10-01] MEDS: Insulin Lispro 100 UNIT/ML INSULN.PEN SC ×4 (06:30→21:09)
[2020-10-01 06:35] LABS: Bedside Glucose 173 mg/dL (70-110)
[2020-10-01 06:40] LABS: Anion Gap 9 (5-15); BUN 34 mg/dL (7-18); BUN/Creat Ratio 21.2 RATIO (10-20); Calcium,Total 8.7 mg/dL (8.5-10.1); Chloride 108 mmol/L (98-107); EST Glomerular Filtration Rate 33 mL/min (>60); Est Glom Filt Rate - Afr Amer 40 mL/min (>60); Estimated Creatinine Clearance 24.62 ml/min; Glucose 157 mg/dL (74-106); Potassium 3.9 mmol/L (3.5-5.1); Sodium Level 139 mmol/L (136-145)
--- NOTE | 2020-10-01 07:33 | PCM.PROGNOTE ---
Subjective Subjective This 79-year-old female seen bedside for right hallux and ankle ulcers that are chronic in nature. She denies foot pain. She denies fever, chill, nausea, vomiting. She denies limb redness. Objective Data Objective Data Vital Signs: Vital Signs Temp Pulse Resp BP Pulse Ox 97.9 F 56 L 16 148/56 H 93 10/01/20 02:18 10/01/20 02:18 10/01/20 02:18 10/01/20 02:18 10/01/20 02:18 Oxygen Delivery Method Room Air Weight: 66.1 kg Body Mass Index (BMI) 25.0 Intake & Output: Intake and Output for Last 24 Hours 09/29/20 09/30/20 10/01/20 23:59 23:59 23:59 Intake Total 585.0 / 1055.0 1661.75 / 1961.75 665.5 / 665.5 Output Total 700 / 1200 850 / 850 Balance 585.0 / 1055.0 961.75 / 761.75 -184.5 / -184.5 Lab / Micro Data Result Diagrams: 09/30/20 05:15 10/01/20 05:11 Labs: Laboratory Results - last 24 hr 09/30/20 09/30/20 09/30/20 12:06 17:12 21:10 Sodium Potassium Chloride Carbon Dioxide Anion Gap BUN Creatinine Estim Creat Clear Calc Est GFR (MDRD) Af Amer Est GFR (MDRD) Non-Af BUN/Creatinine Ratio Glucose Calcium POC Glucose 230 H 149 H 241 H 10/01/20 10/01/20 05:11 06:29 Sodium 139 Potassium 3.9 Chloride 108 H Carbon Dioxide 22.0 Anion Gap 9 BUN 34 H Creatinine 1.60 H Estim Creat Clear Calc 24.62 Est GFR (MDRD) Af Amer 40 L Est GFR (MDRD) Non-Af 33 L BUN/Creatinine Ratio 21.2 H Glucose 157 H Calcium 8.7 POC Glucose 173 H Micro: Microbiology 09/29/20 11:00 Wound - Toe Gram Stain - Final 09/29/20 11:00 Wound - Toe Wound Culture - Preliminary Staphylococcus aureus 09/29/20 11:00 Wound - Ankle Gram Stain - Final 09/29/20 11:00 Wound - Ankle Wound Culture - Preliminary Staphylococcus aureus Physical Exam Const alert and oriented x3 General Appearance: cooperative HEENT normocephalic Extremity Extremity Narrative: No calf tenderness Diminished pulses Muscle wasting noted rocker bottom right foot consistent with prior charcot without laxity or calor or crepitus no bogginess or fluctuance on palpation adjacent to ulcer sites right third toe amputation decreased right limb lower edema right lower extremity compartments are soft to palpate General Extremity: edema and no tenderness to palpation of joints or extremities; Negative for cyanosis Skin Skin Narrative: no purulence, no streaking, no odor. resolved erythema and edema. Mild serosanguineous drainage noted on dressings. General Skin Exam: erythema Neuro Neuro Narrative: lack of normal epicritic sensation via light touch is consistent with neuropathy status Psych cooperative and affect normal Assessment & Plan Assessment/Plan (1) Ulcer of right lower extremity with muscle involvement without evidence of necrosis: (2) Ulcer of right foot with necrosis of bone: (3) Cellulitis of right lower limb: (4) Type 2 diabetes mellitus with diabetic polyneuropathy: (5) Other specified peripheral vascular diseases: PLAN: I reviewed and discussed her case today. Her diagnostic data was reviewed. She is afebrile and vitals are stable. The following work up and care recommendations were made: Dressing:Adaptic to hallux and ankle ulcer sites daily. This was changed this morning. Offload: She already has a surgical shoe that does not apply pressure to the ulcer sites. Vascular: She had abnormal noninvasive vascular studies performed in 2012 and she reports she had lower extremity vascular intervention by Dr. Wilson at [facility] many years ago. I recommend updated vascular studies and GERMAN, PVR, and systolic toe pressures were ordered in addition to arterial duplex Doppler of the right lower extremity. Updated vascular referral will be considered and is likely. Infection: She is afebrile at the time of admission and white blood cell count decreased and pending this AM, ESR 51, CRP 41.2. MRSA PCR positive to both sites/ulcers. She was started on renally dosed vancomycin and Zosyn. Wound culture was obtained in clinic and this is pending. Blood cultures were obtained and this is pending. Imaging: X-rays (3 views of both the ankle and foot) were reviewed with decreased bone density to all osseous structures including the distal phalanx of the hallux could suggest osteomyelitis. There is no soft tissue emphysema or foreign body fractures or dislocations. Additional ankle and foot MRIs were ordered and it does not appear abscess or osteomyelitis is present. Pain: Pain medication will be ordered Host factors: Her comorbidities are complicating his case. A1C noted at 5.7%. This patient is at risk for limb loss. I recommend nutritional optimization including Maciej to optimize healing. Medical management per hospitalist is greatly appreciated. I answered all the patient's questions. I will follow her closely while in house. Please do not hesitate to call if you have any questions. Moriah Bernal DPM, [facility] [phone]
[2020-10-01 08:15] VITALS: BP 147/49; PULSE 64; RESP 18; TEMP 36.6; O2SAT 96
[2020-10-01] MEDS: Glucerna Shake 120 ML LIQUID PO ×3 (08:34→17:12)
[2020-10-01] MEDS: 0.9% Normal Saline 1,000 ML 75 ML IV ×2 (08:34→21:06)
[2020-10-01] MEDS: Furosemide 20 MG Tablet PO (08:35)
[2020-10-01] MEDS: Aspirin 81 MG TAB.CHEW PO (08:35)
[2020-10-01] MEDS: Ascorbic Acid 500 MG Tablet PO (08:36)
--- NOTE | 2020-10-01 09:53 | PN.HOSP_ITS ---
Subjective Subjective No issues overnight, doing well. Objective Data Objective Data Vital Signs: Vital Signs Temp Pulse Resp BP Pulse Ox 98 F 64 18 147/49 H 96 10/01/20 08:15 10/01/20 08:15 10/01/20 08:15 10/01/20 08:15 10/01/20 08:15 Oxygen Delivery Method Room Air Weight: 145 lb 11.609 oz Body Mass Index (BMI) 25.0 Intake & Output: Intake and Output for Last 24 Hours 09/30/20 10/01/20 10/02/20 03:59 03:59 03:59 Intake Total 1105.0 / 1105.0 1491.75 / 1491.75 315.5 / 315.5 Output Total 1200 / 1200 350 / 350 Balance 1105.0 / 1105.0 291.75 / 291.75 -34.5 / -34.5 Lab / Micro Data Result Diagrams: 09/30/20 05:15 10/01/20 05:11 Labs: Laboratory Results - last 24 hr 09/30/20 09/30/20 09/30/20 12:06 17:12 21:10 Sodium Potassium Chloride Carbon Dioxide Anion Gap BUN Creatinine Estim Creat Clear Calc Est GFR (MDRD) Af Amer Est GFR (MDRD) Non-Af BUN/Creatinine Ratio Glucose Calcium POC Glucose 230 H 149 H 241 H 10/01/20 10/01/20 05:11 06:29 Sodium 139 Potassium 3.9 Chloride 108 H Carbon Dioxide 22.0 Anion Gap 9 BUN 34 H Creatinine 1.60 H Estim Creat Clear Calc 24.62 Est GFR (MDRD) Af Amer 40 L Est GFR (MDRD) Non-Af 33 L BUN/Creatinine Ratio 21.2 H Glucose 157 H Calcium 8.7 POC Glucose 173 H Micro: Microbiology 09/29/20 11:00 Wound - Toe Gram Stain - Final 09/29/20 11:00 Wound - Toe Wound Culture - Final Meth. resistant Staph. aureus 09/29/20 11:00 Wound - Ankle Gram Stain - Final 09/29/20 11:00 Wound - Ankle Wound Culture - Preliminary Meth. resistant Staph. aureus GPC Poss Enterococcus sp 09/29/20 11:15 Blood Culture (Wb) - Anticubital Left Blood Culture - Preliminary No growth in 48 hours. 09/29/20 11:35 Blood Culture (Wb) - Anticubital Right Blood Culture - Preliminary No growth in 48 hours. Physical Exam Const alert, oriented x3 and no apparent distress General Appearance: cooperative HEENT normocephalic and moist oral mucous membranes Eyes PERRL, EOMs intact bilaterally and conjunctivae normal Neck supple and no JVD Resp normal respiratory effort, no retractions, no use of accessory muscles and clear to auscultation bilaterally Auscultation: Negative for crackles, rales, rhonchi or wheezes Cardio regular rate, regular rhythm, S1 normal heart sound, S2 normal heart sound and no murmurs GI soft to palpation, non-tender and non-distended; Negative for hepatosplenomegaly Extremity no clubbing, cyanosis or edema Skin no rashes or lesions noted Skin Narrative: 3cm right lateral ankle wound with exposed subcutaneous tissue, and right great toe ulcer with exposed bone Neuro no focal motor deficits and no sensory deficits noted Psych affect normal Appearance: appropriate Assessment & Plan Assessment/Plan (1) Diabetic ankle ulcer: (2) Diabetic foot ulcer: (3) Type 2 diabetes mellitus: PLAN: 1. Diabetic foot and ankle ulcer/Charcot foot/type 2 diabetes/CKD 3a -Consult podiatry -Continue the Vanco and Zosyn, cultures pending -MRI is negative for osteomyelitis in either the ankle or the toe -We will continue sliding scale insulin and make adjustments as necessary, Accu- Cheks AC at bedtime 2. HTN/HLD/CAD status post CABG -We will continue with her home blood pressure medications -We will continue with her lisinopril, and will hold her Lasix today and start her on some IV fluids secondary to a rise in her creatinine -She is allergic to statins and will hold her aspirin in preparation for surgery DVT: SCDs Charges/Coding Visit Charges Inpatient E&M: 69686 Subs Hosp L2
[2020-10-01] MEDS: Lisinopril 20 MG Tablet PO (11:21)
[2020-10-01] MEDS: Atenolol 50 MG Tablet PO ×2 (11:21→20:22)
[2020-10-01] MEDS: amLODIPine 10 MG Tablet PO (11:21)
[2020-10-01 11:30] LABS: Bedside Glucose 322 mg/dL (70-110)
--- NOTE | 2020-10-01 13:40 | NURSING ---
This Nurse is aware of Vanco Trough and that it is 17.0 which is high. Not going to give Vancomycin IV at this time.
[2020-10-01 14:50] VITALS: BP 137/52; PULSE 61; RESP 18; TEMP 37.2; O2SAT 95
--- NOTE | 2020-10-01 14:58 | PCM.RX.CS ---
Consult Pharmacy has been consulted to manage selected antiobiotic: Vancomycin Type of Consult: Follow-up Prior Doses of Antibiotics Received/Current Regimen: Medications Vancomycin HCl (Vancomycin) 1,000 mg in 200 mls @ 200 mls/hr IV Q24H EMORY Last Admin: 09/30/20 13:01 Dose: Infused Documented by: Labs: Sodium 139 mmol/L (136-145) 10/01/20 05:11 Potassium 3.9 mmol/L (3.5-5.1) 10/01/20 05:11 Chloride 108 mmol/L (98-107) H 10/01/20 05:11 Carbon Dioxide 22.0 mmol/L (21.0-32.0) 10/01/20 05:11 Anion Gap 9 (5-15) 10/01/20 05:11 BUN 34 mg/dL (7-18) H 10/01/20 05:11 Creatinine 1.60 mg/dL (0.55-1.02) H 10/01/20 05:11 Est GFR (MDRD) Af Amer 40 mL/min (>60) L 10/01/20 05:11 Est GFR (MDRD) Non-Af 33 mL/min (>60) L 10/01/20 05:11 BUN/Creatinine Ratio 21.2 RATIO (10-20) H 10/01/20 05:11 Glucose 157 mg/dL (74-106) H 10/01/20 05:11 Vancomycin Trough 17.0 ug/mL (5.0-15.0) H 10/01/20 11:45 Microbiology: Microbiology 09/29/20 11:00 Wound - Toe Gram Stain - Final 09/29/20 11:00 Wound - Toe Wound Culture - Final Meth. resistant Staph. aureus 09/29/20 11:00 Wound - Ankle Gram Stain - Final 09/29/20 11:00 Wound - Ankle Wound Culture - Preliminary Meth. resistant Staph. aureus GPC Poss Enterococcus sp 09/29/20 11:15 Blood Culture (Wb) - Anticubital Left Blood Culture - Preliminary No growth in 48 hours. 09/29/20 11:35 Blood Culture (Wb) - Anticubital Right Blood Culture - Preliminary No growth in 48 hours. Goal Trough: 15-20 mcg/mL Pharmacy Plan for Drug Dosing: Trough within goal. Trough level is fairly high for just a couple of doses and SCr elevated from baseline so recommend to check after 2 more doses. Pharmacy Service will continue to monitor and adjust dosing as required. Follow-Up Labs: Trough Vancomycin - 10/03 @ 1138
[2020-10-01 17:21] LABS: Bedside Glucose 222 mg/dL (70-110)
[2020-10-01] MEDS: Vancomycin IV 1,000 MG/200 ML BAG 200 MG IV (18:43)
[2020-10-01 20:11] VITALS: BP 157/62; PULSE 60; RESP 16; TEMP 37.3; O2SAT 93
[2020-10-01] MEDS: Docusate Sodium 100 MG Capsule PO (21:09)
[2020-10-01] MEDS: MELATONIN 3 MG TABLET PO (21:12)
[2020-10-01] MEDS: Acetaminophen 325 MG Tablet 650 MG PO (21:12)
[2020-10-01 21:15] LABS: Bedside Glucose 255 mg/dL (70-110)
[2020-10-02 02:47] VITALS: BP 151/51; PULSE 55; RESP 16; TEMP 36.6; O2SAT 94
[2020-10-02 06:13] LABS: Anion Gap 8 (5-15); BUN 33 mg/dL (7-18); BUN/Creat Ratio 23.2 RATIO (10-20); Calcium,Total 8.5 mg/dL (8.5-10.1); Chloride 110 mmol/L (98-107); Creatinine, Serum 1.42 mg/dL (0.55-1.02); EST Glomerular Filtration Rate 38 mL/min (>60); Est Glom Filt Rate - Afr Amer 46 mL/min (>60); Estimated Creatinine Clearance 27.74 ml/min; Glucose 173 mg/dL (74-106); Potassium 4.5 mmol/L (3.5-5.1); Sodium Level 135 mmol/L (136-145)
[2020-10-02] MEDS: Insulin Lispro 100 UNIT/ML INSULN.PEN SC ×4 (06:35→22:13)
[2020-10-02 06:40] LABS: Bedside Glucose 177 mg/dL (70-110)
[2020-10-02 08:44] VITALS: BP 166/64; PULSE 56; RESP 16; TEMP 36.6; O2SAT 96
[2020-10-02] MEDS: Atenolol 50 MG Tablet PO ×2 (08:56→22:17)
[2020-10-02] MEDS: Lisinopril 20 MG Tablet PO (08:57)
[2020-10-02] MEDS: Aspirin 81 MG TAB.CHEW PO (08:57)
[2020-10-02] MEDS: amLODIPine 10 MG Tablet PO (08:57)
[2020-10-02] MEDS: Docusate Sodium 100 MG Capsule PO ×2 (08:57→22:17)
[2020-10-02] MEDS: Glucerna Shake 120 ML LIQUID PO ×2 (08:57→12:22)
[2020-10-02] MEDS: Ascorbic Acid 500 MG Tablet PO (09:01)
--- NOTE | 2020-10-02 11:25 | PN.HOSP_ITS ---
Subjective Subjective Well, awaiting vascular studies. She is growing MRSA and Enterococcus, will consult infectious disease for antibiotic recommendations. Objective Data Objective Data Vital Signs: Vital Signs Temp Pulse Resp BP Pulse Ox 97.8 F 56 L 16 166/64 H 96 10/02/20 08:44 10/02/20 08:44 10/02/20 08:44 10/02/20 08:44 10/02/20 08:44 Oxygen Delivery Method Room Air Weight: 145 lb 11.609 oz Body Mass Index (BMI) 25.0 Intake & Output: Intake and Output for Last 24 Hours 10/01/20 10/02/20 10/03/20 03:59 03:59 03:59 Intake Total 1491.75 / 1491.75 2610.50 / 2610.50 350 / 350 Output Total 1200 / 1200 2700 / 2700 800 / 800 Balance 291.75 / 291.75 -89.50 / -89.50 -450 / -450 Lab / Micro Data Result Diagrams: 09/30/20 05:15 10/02/20 05:22 Labs: Laboratory Results - last 24 hr 10/01/20 11:19: POC Glucose 322 H 10/01/20 11:45: Vancomycin Trough 17.0 H 10/01/20 17:07: POC Glucose 222 H 10/01/20 21:05: POC Glucose 255 H 10/02/20 05:22: Sodium 135 L, Potassium 4.5, Chloride 110 H, Carbon Dioxide 17.0 L, Anion Gap 8, BUN 33 H, Creatinine 1.42 H, Estim Creat Clear Calc 27.74, Est GFR (MDRD) Af Amer 46 L, Est GFR (MDRD) Non-Af 38 L, BUN/Creatinine Ratio 23.2 H , Glucose 173 H, Calcium 8.5 10/02/20 06:34: POC Glucose 177 H Micro: Microbiology 09/29/20 11:00 Wound - Ankle Gram Stain - Final 09/29/20 11:00 Wound - Ankle Wound Culture - Final Meth. resistant Staph. aureus Enterococcus faecalis 09/29/20 11:00 Wound - Toe Gram Stain - Final 09/29/20 11:00 Wound - Toe Wound Culture - Final Meth. resistant Staph. aureus 09/29/20 11:15 Blood Culture (Wb) - Anticubital Left Blood Culture - Preliminary No growth in 48 hours. 09/29/20 11:35 Blood Culture (Wb) - Anticubital Right Blood Culture - Preliminary No growth in 48 hours. Physical Exam Const alert, oriented x3 and no apparent distress General Appearance: cooperative HEENT normocephalic and moist oral mucous membranes Eyes PERRL, EOMs intact bilaterally and conjunctivae normal Neck supple and no JVD Resp normal respiratory effort, no retractions, no use of accessory muscles and clear to auscultation bilaterally Auscultation: Negative for crackles, rales, rhonchi or wheezes Cardio regular rate, regular rhythm, S1 normal heart sound, S2 normal heart sound and no murmurs GI soft to palpation, non-tender and non-distended; Negative for hepatosplenomegaly Extremity no clubbing, cyanosis or edema Skin no rashes or lesions noted Skin Narrative: 3cm right lateral ankle wound with exposed subcutaneous tissue, and right great toe ulcer with exposed bone Neuro no focal motor deficits and no sensory deficits noted Psych affect normal Appearance: appropriate Assessment & Plan Assessment/Plan (1) Diabetic ankle ulcer: (2) Diabetic foot ulcer: (3) Type 2 diabetes mellitus: PLAN: 1. Diabetic foot and ankle ulcer/Charcot foot/type 2 diabetes/CKD 3a -Consult podiatry -Continue the Vanco, Culture is with MRSA and Enterococcus sensitive to ampicillin -Consult ID for antibiotic recommendations -MRI is negative for osteomyelitis in either the ankle or the toe -We will continue sliding scale insulin and make adjustments as necessary, Accu- Cheks AC at bedtime 2. HTN/HLD/CAD status post CABG -We will continue with her home blood pressure medications -We will continue with her lisinopril, and will hold her Lasix today and start her on some IV fluids secondary to a rise in her creatinine -She is allergic to statins and will hold her aspirin in preparation for surgery DVT: SCDs Charges/Coding Visit Charges Inpatient E&M: 48422 Subs Hosp L2
--- NOTE | 2020-10-02 11:37 | PN_ITS ---
Subjective Subjective Patient was seen this morning for follow up on right foot/ankle ulcerations. Patient resting in bed. Had lower extremity vascular studies today. No new complaints. Objective Data Objective Data Vital Signs: Vital Signs Temp Pulse Resp BP Pulse Ox 97.8 F 56 L 16 166/64 H 96 10/02/20 08:44 10/02/20 08:44 10/02/20 08:44 10/02/20 08:44 10/02/20 08:44 Oxygen Delivery Method Room Air Weight: 66.1 kg Body Mass Index (BMI) 25.0 Intake & Output: Intake and Output for Last 24 Hours 09/30/20 10/01/20 10/02/20 23:59 23:59 23:59 Intake Total 1661.75 / 1961.75 2610.50 / 2910.50 700 / 700 Output Total 700 / 1200 2250 / 3200 1750 / 1750 Balance 961.75 / 761.75 360.50 / -289.50 -1050 / -1050 Lab / Micro Data Result Diagrams: 09/30/20 05:15 10/02/20 05:22 Labs: Laboratory Results - last 24 hr 10/01/20 11:45: Vancomycin Trough 17.0 H 10/01/20 17:07: POC Glucose 222 H 10/01/20 21:05: POC Glucose 255 H 10/02/20 05:22: Sodium 135 L, Potassium 4.5, Chloride 110 H, Carbon Dioxide 17.0 L, Anion Gap 8, BUN 33 H, Creatinine 1.42 H, Estim Creat Clear Calc 27.74, Est GFR (MDRD) Af Amer 46 L, Est GFR (MDRD) Non-Af 38 L, BUN/Creatinine Ratio 23.2 H , Glucose 173 H, Calcium 8.5 10/02/20 06:34: POC Glucose 177 H Micro: Microbiology 09/29/20 11:00 Wound - Ankle Gram Stain - Final 09/29/20 11:00 Wound - Ankle Wound Culture - Final Meth. resistant Staph. aureus Enterococcus faecalis 09/29/20 11:00 Wound - Toe Gram Stain - Final 09/29/20 11:00 Wound - Toe Wound Culture - Final Meth. resistant Staph. aureus 09/29/20 11:15 Blood Culture (Wb) - Anticubital Left Blood Culture - Preliminary No growth in 48 hours. 09/29/20 11:35 Blood Culture (Wb) - Anticubital Right Blood Culture - Preliminary No growth in 48 hours. Physical Exam Const alert and oriented x3 General Appearance: cooperative HEENT normocephalic Extremity Extremity Narrative: Right foot/ankle: Ulceration to the lateral ankle and also to the dorsal 1st toe, down to subcutaneous tissue, there is significantly less erythema and cellulitis resolving well, there is some granular tissue to lateral malleolus ulcer with some dry fibrotic tissue, there is dry fibrotic/eschar to the dorsal right 1st toe ulcer site, there is no probe to bone, no purulence, no fluctuance, no crepitus, no maloder, no streaking, no visible abscess present. There are no open lesions to the left foot or ankle. There is a very small dry superficial blister to the plantar left foot sub 2nd met head with no evidence of infection. No POP or pain on ROM to the foot or ankle bilateral. Contracture of lesser toes- chronic. Skin General Skin Exam: erythema Neuro Neuro Narrative: significantly decreased sensation to feet bilateral. Psych cooperative and affect normal Assessment & Plan Assessment/Plan (1) Ulcer of right lower extremity with muscle involvement without evidence of necrosis: (2) Ulcer of right foot with necrosis of bone: (3) Cellulitis of right lower limb: (4) Type 2 diabetes mellitus with diabetic polyneuropathy: (5) Other specified peripheral vascular diseases: PLAN: Re-evaluation performed. Ulcerations to right foot/ankle stable at this time, cellulitis improving. MRI negative for osteomyelitis. Cultures reviewed and patient on antibiotic therapy - wound cultures with MRSA and entercoccus faecalis, blood cultures with no growth so far - patient on IV vancomycin - ID specialist will be consulted. Dressing: Adaptic to hallux and ankle ulcer sites daily. This was changed this morning. Keep ulcerations offloaded at all times: She already has a surgical shoe that does not apply pressure to the ulcer sites. Ordered offloading foam boots for patient to wear when at rest. Vascular: Updated vascular studies of the lower extremities obtained today - PAD noted and vascular specialist, Dr. Wilson will be consulted today. Nutritional optimization including Maciej to optimize healing has been recommended. Medical management per hospitalist is greatly appreciated. Also of note there is a small superficial dry blister sub left 2nd met head with no open lesion or evidence of infection - at this time recommended she use her offloading diabetic shoe and insert (keep offloaded at all times) and this be monitored closely for any open lesion or signs/symptom of infection. Podiatry will continue to follow.
[2020-10-02 12:31] LABS: Bedside Glucose 286 mg/dL (70-110)
--- NOTE | 2020-10-02 13:27 | PCM.CONS.GEN ---
Assessment & Plan Assessment/Plan (1) Cellulitis of right lower limb: PLAN: Infected DM ulcer. D/w Dr. Walton and reviewed notes, no clear evidence of exposed bone, but tendon is exposed. Wound cx with mrsa and enterococcus. Vascular has been consulted. Cont vanc for now. Plan on 2 week course po linezolid 600mg bid at discharge. Goal will be for 4 weeks of abx total for this. ID followup in 2 weeks. Will follow, thank you, d/w Dr. Lei (2) Type 2 diabetes mellitus with diabetic polyneuropathy: (3) Other specified peripheral vascular diseases: HPI Consult Data Date of Consult: 10/02/20 HPI Narrative HPI Narrative: DARREN SANDOVAL, is a 79 F with PAD and DM neuropathy, presented with worsening R foot/ankle ulcers. [facility] Recently on doxy and amoxicillin but could not tolerate amox due to upset stomach. Reports foot ulcers since March. No fever, some redness and drainage. No pain in foot. Came to ED, admitted on vanc/zosyn, abx now narrowed to vanc. Feeling better. Has not gotten covid vaccine. Full ROS performed and neg except as noted above. [facility] Medical History (Updated 09/29/20 @ 16:[address] Moriah Bernal, EU[facility]) Arthritis Breast lump in female Cataracts, bilateral Diabetes Diverticulosis Gallstones Heart failure High blood pressure Kidney stones Non-smoker Osteoarthritis Home Medications glyburide 5 mg PO DAILY@0800 08/26/15 [History Last Taken 09/29/20] metformin 500 mg PO TIDCM 08/26/15 [History Last Taken 09/29/20] ascorbic acid (vitamin C) 500 mg PO DAILY 12/09/16 [History Last Taken 09/29/20] atenolol 50 mg PO BID 12/09/16 [History Last Taken 09/29/20] cholecalciferol (vitamin D3) 1,000 unit PO DAILY 12/09/16 [History Last Taken 09/29/20] cyanocobalamin (vitamin B-12) 1,000 mcg PO DAILY 12/09/16 [History Last Taken 09/29/20] multivitamin 1 ea PO DAILY 12/09/16 [History Last Taken 09/29/20] omega-3 fatty acids-fish oil 1 cap PO TID 12/09/16 [History Last Taken 09/29/20] aspirin 81 mg PO DAILY 06/11/17 [History Last Taken 09/29/20] lisinopril 20 mg PO DAILY 12/05/17 [History Last Taken 09/29/20] magnesium oxide 400 mg PO DAILY 03/01/20 [History Last Taken 09/29/20] furosemide 20 mg PO DAILY 03/02/20 [History Last Taken 09/29/20] amlodipine 10 mg PO DAILY 09/29/20 [History Last Taken 09/29/20] Allergy/AdvReac Type Severity Reaction Status Date / Time adhesive Allergy Unknown Verified 09/29/20 10:25 atorvastatin calcium Allergy Unknown Verified 09/29/20 10:25 [From Lipitor] bacitracin Allergy Unknown Verified 09/29/20 10:25 [From Neosporin ([id number])] bacitracin zinc Allergy Unknown Verified 09/29/20 10:25 [From Neosporin ([id number])] fenofibrate nanocrystallized Allergy Unknown Verified 09/29/20 10:25 [From Tricor] fenofibrate,micronized Allergy Unknown Verified 09/29/20 10:25 [From Tricor] flurbiprofen Allergy Unknown Verified 09/29/20 10:25 gemfibrozil Allergy Unknown Verified 09/29/20 10:25 glipizide [From Glucotrol] Allergy Unknown Verified 09/29/20 10:25 metronidazole Allergy ALLERGY Verified 09/29/20 10:25 neomycin sulfate Allergy Unknown Verified 09/29/20 10:25 [From Neosporin ([id number])] polymyxin B Allergy Unknown Verified 09/29/20 10:25 [From Neosporin ([id number])] prednisolone acetate, Allergy ALLERGY Verified 09/29/20 10:25 micronized simvastatin Allergy ALLERGY Verified 09/29/20 10:25 tramadol [From Ultram] Allergy ALLERGY Verified 09/29/20 10:25 pravastatin AdvReac Other Verified 09/29/20 10:25 Family History Mother Diabetes Father Hypertension CVA (cerebral vascular accident) Brother Lung cancer Sister Breast cancer COPD (chronic obstructive pulmonary disease) Surgical History History of cholecystectomy History of heart bypass surgery History of knee replacement Social History Smoking Status: Never smoker additional social history: USES ASPIRIN Physical Exam Const alert, oriented x3 and no apparent distress General Appearance: cooperative HEENT normocephalic and head/scalp atraumatic Eyes PERRL and EOMs intact bilaterally Neck supple and No nodes Resp normal air movement and clear to auscultation bilaterally Cardio regular rate and regular rhythm GI normal to inspection, nondistended, normoactive bowel sounds Extremity General Extremity: edema Skin Skin Narrative: RLE wrapped Neuro CN's II-XII intact bilaterally Lab / Micro Data Result Diagrams: 09/30/20 05:15 10/02/20 05:22 Labs: Laboratory Results - last 24 hr 10/01/20 17:07: POC Glucose 222 H 10/01/20 21:05: POC Glucose 255 H 10/02/20 05:22: Sodium 135 L, Potassium 4.5, Chloride 110 H, Carbon Dioxide 17.0 L, Anion Gap 8, BUN 33 H, Creatinine 1.42 H, Estim Creat Clear Calc 27.74, Est GFR (MDRD) Af Amer 46 L, Est GFR (MDRD) Non-Af 38 L, BUN/Creatinine Ratio 23.2 H, Glucose 173 H, Calcium 8.5 10/02/20 06:34: POC Glucose 177 H 10/02/20 12:11: POC Glucose 286 H Micro: Microbiology 09/29/20 11:00 Wound - Ankle Gram Stain - Final 09/29/20 11:00 Wound - Ankle Wound Culture - Final Meth. resistant Staph. aureus Enterococcus faecalis 09/29/20 11:00 Wound - Ankle Anaerobic Culture - Preliminary Checking for anaerobes, further studies to follow. 09/29/20 11:00 Wound - Toe Gram Stain - Final 09/29/20 11:00 Wound - Toe Wound Culture - Final Meth. resistant Staph. aureus 09/29/20 11:00 Wound - Toe Anaerobic Culture - Final No anaerobic bacteria isolated.
--- NOTE | 2020-10-02 13:43 | CON.PCM_ITS ---
Assessment & Plan Assessment/Plan (1) Peripheral arterial disease: PLAN: Will discuss patient with Dr. Wilson. An abdominal pelvic arteriogram with right lower extremity intervention was discussed with the patient. She is agreeable to proceed with the proposed procedure if indicated. Patient has had the opportunity to ask and have questions answered. Patient verbally understands and agrees with the plan. Patient is aware that the procedure may or may not be performed during this hospitalization. She is ambulatory with a walker which will aid in recovery following her procedure. She also has a history of chronic renal disease which will also be taken into consideration during the procedure. She is on Metformin as an outpatient. Thank you for allowing us to participate in this patient's care. HPI Consult Data Date of Consult: 10/02/20 HPI Narrative HPI Narrative: DARREN SANDOVAL, is a 79 F who presents with two non-healing right foot wounds. Patient states her right ankle/foot started swelling in February 2020. She was hospitalized at that time and given IV antibiotic for cellulitis. She had also noted ankle seepage around February which developed into a lateral ankle and dorsal 1st toe wound. She has been following with foot and ankle specialist here in [place]. She notes her two daughters have been changing her dressings daily. Her last appointment with her paid search manager, Dr. Chao, was last Friday. She was sent from their office to the [place] ED with concern of osteomyelitis. She has failed outpatient antibiotic treatment with doxycycline and amoxicillin. Patient stated she never took the amoxicillin due to stomach irritation. Her culture in the hospital demonstrates MRSA and enterococcus faecalis. Patient is on Vanco IV. Infectious disease is being consulted. Patient denies any bleeding from her wounds. She notes they area dry wounds. Patient has a history of multiple amputations. She had a left great toe amputation, 3rd toe on the right foot amputation, and partial right amputation of right index finger. Patient has a history of PAD, diabetes, HTN, CKD III, Charcot foot, hyperlipidemia. She notes her diabetes is well controlled. Her last Hgb A1C was 6.0 on 08/02/20. She notes her last cholesterol level was around the same time. Her LDL was elevated however the remaining of her cholesterol was normal. She was attempted to be placed on a statin medication however she could not tolerate due to muscle aches. She notes being on an 81 mg ASA. She is able to walk on flat ground as long as possible without any claudication symptoms. She notes her arthritis typically stops her from walking. She notes history of CABG x 4 in 2016 at [facility]. She does not currently have a gas appliance installer as Dr. Gutierrez has retired and she has not established with another gas appliance installer. She denies previous myocardial infarction, chest pain, shortness or breath. She is not a smoker. She denies previous personal history of COVID or being around any family with COVID. She has not had her vaccination. She is well known to Dr. Wilson. He has completed bilateral lower extremity angioplasty in 2012 and 2013. Left carotid endarterectomy in 2013. Previous colonoscopy for diverticulitis in 2014. Left breast biopsy previously in 2011, which had a benign outcome. Patient's previous right lower extremity arteriogram was on 07/06/[address] Shahrzad trevino which demonstrated multisegmental arterial occlusive disease. Intervention was performed on the right anterior tibial with a 3 x 210 mm NanoCross angioplasty. Successful inline flow via right tibialis anterior with now resumption of palpable right dorsalis pedis pulse. Occluded right peroneal and posterior tibial were noted. Patient also had a left lower extremity arteriogram on 09/20/[address] Wilson. Findings included multisegmental disease with occlusion of the left posterior tibial artery, segmental occlusion of stenosis left anterior tibial artery and severe stenosis and short segment occlusion left peroneal artery. A left anterior tibial 3 x 80 mm and 3.5 x 210 mm NanoCross angioplasty and a left peroneal 3 x 80 mm and 3.5 x 210 mm NanoCross angioplasty was performed. Patient had vascular studies today which demonstrated right PT 0.42 and left PT 0.52 compared to her previous study in 2013 which demonstrated right PT 1.10 and left PT 1.02. Dr. Mensah is the patient's PCP. [facility] Medical History (Updated 09/29/20 @ 16:[address] Moriah Bernal DPM) Arthritis Breast lump in female Cataracts, bilateral Diabetes Diverticulosis Gallstones Heart failure High blood pressure Kidney stones Non-smoker Osteoarthritis Home Medications glyburide 5 mg PO DAILY@0800 08/26/15 [History Last Taken 09/29/20] metformin 500 mg PO TIDCM 08/26/15 [History Last Taken 09/29/20] ascorbic acid (vitamin C) 500 mg PO DAILY 12/09/16 [History Last Taken 09/29/20] atenolol 50 mg PO BID 12/09/16 [History Last Taken 09/29/20] cholecalciferol (vitamin D3) 1,000 unit PO DAILY 12/09/16 [History Last Taken 09/29/20] cyanocobalamin (vitamin B-12) 1,000 mcg PO DAILY 12/09/16 [History Last Taken 09/29/20] multivitamin 1 ea PO DAILY 12/09/16 [History Last Taken 09/29/20] omega-3 fatty acids-fish oil 1 cap PO TID 12/09/16 [History Last Taken 09/29/20] aspirin 81 mg PO DAILY 06/11/17 [History Last Taken 09/29/20] lisinopril 20 mg PO DAILY 12/05/17 [History Last Taken 09/29/20] magnesium oxide 400 mg PO DAILY 03/01/20 [History Last Taken 09/29/20] furosemide 20 mg PO DAILY 03/02/20 [History Last Taken 09/29/20] amlodipine 10 mg PO DAILY 09/29/20 [History Last Taken 09/29/20] Allergy/AdvReac Type Severity Reaction Status Date / Time adhesive Allergy Unknown Verified 09/29/20 10:25 atorvastatin calcium Allergy Unknown Verified 09/29/20 10:25 [From Lipitor] bacitracin Allergy Unknown Verified 09/29/20 10:25 [From Neosporin ([id number])] bacitracin zinc Allergy Unknown Verified 09/29/20 10:25 [From Neosporin ([id number])] fenofibrate nanocrystallized Allergy Unknown Verified 09/29/20 10:25 [From Tricor] fenofibrate,micronized Allergy Unknown Verified 09/29/20 10:25 [From Tricor] flurbiprofen Allergy Unknown Verified 09/29/20 10:25 gemfibrozil Allergy Unknown Verified 09/29/20 10:25 glipizide [From Glucotrol] Allergy Unknown Verified 09/29/20 10:25 metronidazole Allergy ALLERGY Verified 09/29/20 10:25 neomycin sulfate Allergy Unknown Verified 09/29/20 10:25 [From Neosporin ([id number])] polymyxin B Allergy Unknown Verified 09/29/20 10:25 [From Neosporin ([id number])] prednisolone acetate, Allergy ALLERGY Verified 09/29/20 10:25 micronized simvastatin Allergy ALLERGY Verified 09/29/20 10:25 tramadol [From Ultram] Allergy ALLERGY Verified 09/29/20 10:25 pravastatin AdvReac Other Verified 09/29/20 10:25 Family History Mother Diabetes Father Hypertension CVA (cerebral vascular accident) Brother Lung cancer Sister Breast cancer COPD (chronic obstructive pulmonary disease) Surgical History History of cholecystectomy History of heart bypass surgery History of knee replacement Social History Smoking Status: Never smoker additional social history: USES ASPIRIN ROS Constitutional Constitutional: Reports systems reviewed and no addt'l complaints, except as documented Eyes Eyes: Reports systems reviewed and no addt'l complaints, except as documented ENT HEENT: Reports systems reviewed and no addt'l complaints, except as documented Cardiovascular Cardiovascular: Reports systems reviewed and no addt'l complaints, except as documented Respiratory/Chest Respiratory/Chest: Reports systems reviewed and no addt'l complaints, except as documented Gastrointestinal Gastrointestinal: Reports constipation and weight changes Genitourinary Genitourinary: Reports systems reviewed and no addt'l complaints, except as documented Musculoskeletal Musculoskeletal: Reports systems reviewed and no addt'l complaints, except as documented Integumentary Integumentary: Reports systems reviewed and no addt'l complaints, except as documented Neurologic Neurologic: Reports systems reviewed and no addt'l complaints, except as documented Psychiatric Psychiatric: Reports systems reviewed and no addt'l complaints, except as documented Endocrine Endocrinology: Reports systems reviewed and no addt'l complaints, except as documented Hematologic/Lymphatic Hematologic/Lymphatic: Reports systems reviewed and no addt'l complaints, except as documented Allergic/Immunologic Allergic/Immunologic: Reports systems reviewed and no addt'l complaints, except as documented Physical Exam Const General Appearance: cooperative, comfortable, well kempt and well developed HEENT normocephalic and head/scalp atraumatic Eyes PERRL and EOMs intact bilaterally Neck full ROM and no lymphadenopathy Lymph Lymphatic: no lymphadenopathy noted Chest inspection of chest normal Resp normal respiratory effort, normal air movement and clear to auscultation bilaterally Cardio regular rate and regular rhythm Bruits: Negative for carotid bruit or femoral bruit GI non-tender and non-distended Auscultation: normoactive bowel sounds Palpation: soft and hernia umbilical (easily reducible ) no CVA tenderness Back/Spine normal ROM and normal to inspection Extremity Peripheral Pulses: Yes brachial pulses present bilateral 2+, radial pulses present bilateral 2+, femoral pulses present bilateral 2+, popliteal pulses present bilateral 2+, posterior tibial pulses present bilateral (0) and dorsalis pedis pulses present bilateral (0) Skin Wound Narrative: Right foot- wrapped with Kerlix. Right lateral ulcer, dry wound. Dorsum of first toe with dry wound. Erythema noted of the foot. No active bleeding noted. No erythema spreading up the leg. Lab / Micro Data Result Diagrams: 09/30/20 05:15 10/02/20 05:22 Labs: Laboratory Results - last 24 hr 10/01/20 17:07: POC Glucose 222 H 10/01/20 21:05: POC Glucose 255 H 10/02/20 05:22: Sodium 135 L, Potassium 4.5, Chloride 110 H, Carbon Dioxide 17.0 L, Anion Gap 8, BUN 33 H, Creatinine 1.42 H, Estim Creat Clear Calc 27.74, Est GFR (MDRD) Af Amer 46 L, Est GFR (MDRD) Non-Af 38 L, BUN/Creatinine Ratio 23.2 H , Glucose 173 H, Calcium 8.5 10/02/20 06:34: POC Glucose 177 H 10/02/20 12:11: POC Glucose 286 H Micro: Microbiology 09/29/20 11:00 Wound - Ankle Gram Stain - Final 09/29/20 11:00 Wound - Ankle Wound Culture - Final Meth. resistant Staph. aureus Enterococcus faecalis 09/29/20 11:00 Wound - Ankle Anaerobic Culture - Preliminary Checking for anaerobes, further studies to follow. 09/29/20 11:00 Wound - Toe Gram Stain - Final 09/29/20 11:00 Wound - Toe Wound Culture - Final Meth. resistant Staph. aureus 09/29/20 11:00 Wound - Toe Anaerobic Culture - Final No anaerobic bacteria isolated. Charges/Coding Visit Charges Office Visits / Consults: 67861 IP Consult L3
--- NOTE | 2020-10-02 14:11 | CASEMGMT ---
FLOR DOMINGO NOTE: Per Dr Rico, plan for pt to d/c home on Linezolid 600 mg po BID x 2 wks. Call placed to Nolan @ [facility]. Fisher will be $60.56. FLOR DOMINGO to room to discuss discharge planning. Pt made aware of cost of Linezolid and states this is affordable. Pt's daughter, Kaitlyn, is at bedside. Discussed dressing changes and option of HHC. Pt/dtr both decline need for HHC, as Kaitlyn states she has been doing dressing changes for pt for about 7 months and states is willing/able to continue to do this. Pt also has several other family members who are supportive and able to help as needed. They deny other needs/concerns re: discharge planning at this time. Pt also screened with [facility] Palliative Care Screening Tool at this time for strata 3, pt did not meet criteria. Bettina FERRERA RN CM
[2020-10-02 14:45] VITALS: BP 164/57; PULSE 59; RESP 16; TEMP 37.2; O2SAT 95
[2020-10-02] MEDS: Vancomycin IV 1,000 MG/200 ML BAG 200 MG IV (14:58)
[2020-10-02 17:06] LABS: Bedside Glucose 345 mg/dL (70-110)
[2020-10-02] MEDS: 0.9% Normal Saline 1,000 ML 75 ML IV (17:45)
[2020-10-02 22:08] VITALS: BP 161/65; PULSE 61; RESP 17; TEMP 36.7; O2SAT 94
[2020-10-02] MEDS: Acetaminophen 325 MG Tablet 650 MG PO (22:17)
[2020-10-02 22:21] LABS: Bedside Glucose 277 mg/dL (70-110)
[2020-10-03 02:25] VITALS: BP 162/66; PULSE 56; RESP 16; TEMP 36.7; O2SAT 95
[2020-10-03] MEDS: 0.9% Normal Saline 1,000 ML 75 ML IV (06:26)
[2020-10-03] MEDS: Insulin Lispro 100 UNIT/ML INSULN.PEN SC ×2 (06:29→11:24)
[2020-10-03 06:35] LABS: Bedside Glucose 220 mg/dL (70-110)
[2020-10-03 07:11] LABS: Anion Gap 7 (5-15); BUN 23 mg/dL (7-18); BUN/Creat Ratio 21.7 RATIO (10-20); Calcium,Total 8.7 mg/dL (8.5-10.1); Chloride 109 mmol/L (98-107); Creatinine, Serum 1.06 mg/dL (0.55-1.02); EST Glomerular Filtration Rate 53 mL/min (>60); Est Glom Filt Rate - Afr Amer 64 mL/min (>60); Estimated Creatinine Clearance 37.16 ml/min; Glucose 209 mg/dL (74-106); Potassium 4.1 mmol/L (3.5-5.1); Sodium Level 139 mmol/L (136-145)
[2020-10-03] MEDS: Aspirin 81 MG TAB.CHEW PO (08:52)
[2020-10-03] MEDS: Glucerna Shake 120 ML LIQUID PO ×2 (08:52→11:24)
[2020-10-03] MEDS: Docusate Sodium 100 MG Capsule PO (08:53)
[2020-10-03] MEDS: Atenolol 50 MG Tablet PO (08:53)
[2020-10-03] MEDS: Lisinopril 20 MG Tablet PO (08:53)
[2020-10-03] MEDS: amLODIPine 10 MG Tablet PO (08:53)
[2020-10-03] MEDS: Ascorbic Acid 500 MG Tablet PO (08:53)
--- NOTE | 2020-10-03 09:22 | NURSING ---
wound photo: right lateral ankle
--- NOTE | 2020-10-03 09:22 | NURSING ---
wound photo: right great toe
[2020-10-03 09:41] VITALS: BP 168/64; PULSE 60; RESP 18; TEMP 36.7; O2SAT 94
--- NOTE | 2020-10-03 10:36 | PN.SURG_ITS ---
Subjective Subjective Evaluated patient resting comfortably in bed. She denies any concerns at this time. Objective Data Objective Data Vital Signs: Vital Signs Temp Pulse Resp BP Pulse Ox 98.1 F 60 18 168/64 H 94 10/03/20 09:41 10/03/20 09:41 10/03/20 09:41 10/03/20 09:41 10/03/20 09:41 Oxygen Delivery Method Room Air Weight: 145 lb 11.609 oz Body Mass Index (BMI) 25.0 Intake & Output: Intake and Output for Last 24 Hours 10/01/20 10/02/20 10/03/20 23:59 23:59 23:59 Intake Total 2610.50 / 2910.50 2531.75 / 2531.75 1901.25 / 1901.25 Output Total 2250 / 3200 3200 / 3200 1999 / 1999 Balance 360.50 / -289.50 -668.25 / -668.25 -98.75 / -98.75 Lab / Micro Data Result Diagrams: 09/30/20 05:15 10/03/20 06:00 Labs: Laboratory Results - last 24 hr 10/02/20 12:11: POC Glucose 286 H 10/02/20 16:56: POC Glucose 345 H 10/02/20 22:12: POC Glucose 277 H 10/03/20 06:00: Sodium 139, Potassium 4.1, Chloride 109 H, Carbon Dioxide 23.0, Anion Gap 7, BUN 23 H, Creatinine 1.06 H, Estim Creat Clear Calc 37.16, Est GFR (MDRD) Af Amer 64, Est GFR (MDRD) Non-Af 53 L, BUN/Creatinine Ratio 21.7 H, Glucose 209 H, Calcium 8.7 10/03/20 06:28: POC Glucose 220 H Micro: Microbiology 09/29/20 11:00 Wound - Ankle Gram Stain - Final 09/29/20 11:00 Wound - Ankle Wound Culture - Final Meth. resistant Staph. aureus Enterococcus faecalis 09/29/20 11:00 Wound - Ankle Anaerobic Culture - Final No anaerobic bacteria isolated. 09/29/20 11:00 Wound - Toe Gram Stain - Final 09/29/20 11:00 Wound - Toe Wound Culture - Final Meth. resistant Staph. aureus 09/29/20 11:00 Wound - Toe Anaerobic Culture - Final No anaerobic bacteria isolated. 09/29/20 11:15 Blood Culture (Wb) - Anticubital Left Blood Culture - Preliminary No growth in 48 hours. 09/29/20 11:35 Blood Culture (Wb) - Anticubital Right Blood Culture - Preliminary No growth in 48 hours. Radiography Diagnostic Testing: Radiology Impression Extremity Arterial Study 09/29/20 13:55 Interpretation Summary Technically limited examination. Bandages prohibited right dorsalis pedis artery waveforms and pressure. No toe pressures were obtained. Current right great toe wound and history of left great toe amputation Abnormal right posterior tibial resting ankle-brachial index of 0.42. Doppler waveform is biphasic. 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 Calcific plaque right distal popliteal artery with greater than 50% stenosis Notably diminished flow right posterior tibial artery Greater than 50% stenosis right mid anterior tibial artery Abnormal elevated distal right anterior tibial artery flow consistent with severe stenosis No flow noted within the right peroneal artery Ordering Physician: Moriah Bernal Referring Physician: Kelsy Mensah Performed By: Margarita Chacon, ALAN, RVT Assessment & Plan Assessment/Plan (1) Peripheral arterial disease: PLAN: Patient is planning to be discharged today Dr. Wilson will plan to perform an abdominal pelvic arteriogram with right lower extremity intervention on , 10/05 at 10:30 AM. Patient to arrive at 9:00 AM for the procedure. Patient has had the opportunity to ask and have questions answered. Patient verbally understands and agrees with the plan. Charges/Coding Visit Charges Inpatient E&M: 84057 Init Hosp L1
--- NOTE | 2020-10-03 11:10 | PCM.DC ---
Discharge Instructions Diet Discharge Diet: 1800 Calorie Control Diet Activity Discharge Activity: Use Walker Weight Bearing Status: Partial weight bearing (use walker) Follow Up Care Test Results: Test results from this visit will be discussed in further detail at your follow-up appointment, if applicable. Discharge Plan Admission Admit Date/Time: 09/29/20 13:14 Primary Reason for Your Visit: cellulitis right foot Attending Provider: Blas Pagan Primary Care Provider: Kelsy Mensah Consulting Providers: Moriah Bernal ; Loki Rico ; Loki Wilson Instructions Additional Instructions / Restrictions: Wash foot with soap and water; do not soak. Change dressing daily to right great toe and ankle ulcer with hydrogel and adaptic. Continue to wear right foot surgical shoe. Resume Lantus 10 units SQ daily-monitor blood sugars closely Discharge Orders/Prescriptions Prescriptions: New linezolid [Zyvox] 600 mg tablet 600 mg PO BID Qty: 28 RF: 0 Continued metformin 500 MG tablet 500 mg PO TIDCM RF: 0 glyburide 5 MG tablet 5 mg PO DAILY@0800 RF: 0 multivitamin 1 EACH tablet 1 ea PO DAILY RF: 0 cyanocobalamin (vitamin B-12) 1,000 MCG tablet 1,000 mcg PO DAILY RF: 0 ascorbic acid (vitamin C) 500 MG tablet 500 mg PO DAILY RF: 0 atenolol 50 MG tablet 50 mg PO BID RF: 0 cholecalciferol (vitamin D3) 1,000 UNIT capsule 1,000 unit PO DAILY RF: 0 omega-3 fatty acids-fish oil 1 EACH capsule,delayed release(DR/EC) 1 cap PO TID RF: 0 aspirin 81 MG tablet,chewable 81 mg PO DAILY RF: 0 lisinopril 20 MG tablet 20 mg PO DAILY RF: 0 magnesium oxide 400 MG tablet 400 mg PO DAILY RF: 0 furosemide 20 MG tablet 20 mg PO DAILY RF: 0 amlodipine 10 MG tablet 10 mg PO DAILY RF: 0 Referrals / Follow Up: Kelsy Mensah MD [Primary Care Provider] - Within 1 Month Ema Chao DPM [STAFF PHYSICIAN] - ([facility] Chao. Call to schedule [phone]. You need an appointment this Friday) Loki Rico MD [STAFF PHYSICIAN] - Within 2 Weeks Disposition Disposition (needs filled in before D/C Order can be placed): Home, Self Care
[2020-10-03] MEDS: Vancomycin IV 1,000 MG/200 ML BAG 200 MG IV (11:16)
[2020-10-03 11:33] VITALS: BP 131/79; PULSE 72; RESP 18; TEMP 36.6; O2SAT 94
[2020-10-03 13:31] LABS: Bedside Glucose 424 mg/dL (70-110)
[2020-10-03 13:31] LABS: Bedside Glucose 431 mg/dL (70-110)
--- NOTE | 2020-10-03 14:08 | PHA.DC.MC ---
Pharmacy Service has performed discharge medication reconciliation and counseling for this patient. 1. LINEZOLID 600MG PO BID X 14 DAYS The patient's discharge medication list was reviewed for discrepancies and discrepancies were resolved. Home Medications glyburide 5 mg PO DAILY@0800 08/26/15 metformin 500 mg PO TIDCM 08/26/15 ascorbic acid (vitamin C) 500 mg PO DAILY 12/09/16 atenolol 50 mg PO BID 12/09/16 cholecalciferol (vitamin D3) 1,000 unit PO DAILY 12/09/16 cyanocobalamin (vitamin B-12) 1,000 mcg PO DAILY 12/09/16 multivitamin 1 ea PO DAILY 12/09/16 omega-3 fatty acids-fish oil 1 cap PO TID 12/09/16 aspirin 81 mg PO DAILY 06/11/17 lisinopril 20 mg PO DAILY 12/05/17 magnesium oxide 400 mg PO DAILY 03/01/20 furosemide 20 mg PO DAILY 03/02/20 amlodipine 10 mg PO DAILY 09/29/20 linezolid [Zyvox] 600 mg PO BID #28 tab 10/02/20 The patient was counseled on the following discharge medications and changes in medications for homegoing were reviewed. The Reason for Use, instructions for use, and potential side effects were reviewed for all new medications. The patient's questions regarding all of their medications were answered. The patient was able to verbally demonstrate an understanding of their discharge medications.
--- NOTE | 2020-10-04 14:58 | CASEMGMT ---
FLOR DOMINGO Discharge Follow-up Phone Call: SHAHAB: Dorene Strata: 3 Call Date: 10/04/20 Discharge Date: 10/03/20 Time of Call: 1455 Duration: 3 min Admitting Diagnosis: Osteomyelitis FLOR DOMINGO completed the follow-up phone call after recent hospitalization. Patient states she is doing well and daughter assisting with care. Patient had no questions regarding discharge instructions. Patient was able to fill prescriptions without any issues. Patient has follow-up appts scheduled. Patient had no further questions or concerns at this time.
--- NOTE | 2020-10-05 08:28 | PCM.DC.SUM ---
Providers Date of Admission: 09/29/20 Date of Discharge: 10/03/20 Primary Care Physician: Dr. Kelsy Mensah MD Consultations 09/29/20 15:46 Consult: Onc/Wound/recyclable materials sorter Routine Comment: 09/29/20 17:26 Consult: Podiatry Routine Consulting Provider: Moriah Bernal Reason for Consult: right foot infection EMERGENT Consult: No MD Notified: Yes Date Notified: 09/29/20 Time Notified: 17:27 Method of Notification: Verbal 10/02/20 10:24 Consult: Infectious Disease Routine Consulting Provider: Loki Rico Reason for Consult: MRSA dm ulcer no osteo EMERGENT Consult: Yes MD Notified: Yes Date Notified: 10/02/20 Time Notified: 10:24 Method of Notification: Answering Service 10/02/20 11:57 Consult: Vascular Surgery Routine Consulting Provider: Loki Wilson Reason for Consult: peripheral vascular disease / non healing ulcers EMERGENT Consult: No MD Notified: Yes Date Notified: 10/02/20 Time Notified: 11:58 Method of Notification: Verbal- spoke with OR derek Reason For Visit: OSTEOMYELITIS AND EXPOSED BONE WITH INFECTION Diagnosis Discharge Diagnosis (1) Peripheral arterial disease: Status: Chronic Code(s): I73.9 - Peripheral vascular disease, unspecified Plan: Discharged diagnosis: #1 cellulitis of the right foot from MRSA and Enterococcus #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 #4 essential hypertension #5 coronary artery disease #6 peripheral vascular disease secondary to type 2 diabetes Medications at Discharge Home Medications glyburide 5 mg PO DAILY@0800 08/26/15 metformin 500 mg PO TIDCM 08/26/15 ascorbic acid (vitamin C) 500 mg PO DAILY 12/09/16 atenolol 50 mg PO BID 12/09/16 cholecalciferol (vitamin D3) 1,000 unit PO DAILY 12/09/16 cyanocobalamin (vitamin B-12) 1,000 mcg PO DAILY 12/09/16 multivitamin 1 ea PO DAILY 12/09/16 omega-3 fatty acids-fish oil 1 cap PO TID 12/09/16 aspirin 81 mg PO DAILY 06/11/17 lisinopril 20 mg PO DAILY 12/05/17 magnesium oxide 400 mg PO DAILY 03/01/20 furosemide 20 mg PO DAILY 03/02/20 amlodipine 10 mg PO DAILY 09/29/20 linezolid [Zyvox] 600 mg PO BID #28 tab 10/02/20 Hospital Course Operations None Procedures None Summary of Care Provided Minutes Spent on Discharge: 31 Hospital Course: This 79-year-old white female was seen in the emergency room at [facility] after being sent in by her call worker due to concerns of right foot cellulitis and exposed bone over the patient's right great toe. 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 Patient was admitted to [place] [address] for cellulitis of the right foot with concerns of osteomyelitis, she was seen in consultation by podiatry, general surgery, and infectious diseases. Cultures of the right foot wound grew out MRSA and Enterococcus, MRI of the foot which was obtained did not show evidence of osteomyelitis however. Patient improved during her hospital stay, she was seen by PT and OT. On 10/03/2020, patient was seen and examined: On examination she appeared in good health and spirits, she does not appear to be in any distress. Vital signs as documented. Skin warm and dry and without overt rashes. Neck without JVD, thyroid appears normal, trachea is midline, neck is supple. Lungs clear, normal air movement was noted. Heart exam notable for regular rhythm, normal sounds and absence of murmurs, rubs or gallops. Abdomen unremarkable and without evidence of organomegaly, masses, or abdominal aortic enlargement, bowel sounds are present in all 4 quadrants, no abdominal tenderness was noted. Extremities-patient's right lower leg was wrapped with surgical dressing, this was not removed for examination of the right foot and ankle area, no cyanosis was noted, no clubbing was noted. Neuro: Cranial nerves II through XII are grossly intact, no focal motor deficits were noted, sensation to light touch and pinprick is intact, motor exam 5/5 throughout. Psych: Patient is alert and oriented x3, she does not appear anxious or depressed, she does not appear agitated. On 10/03/2020, patient was seen and examined and felt to be stable for discharge home. Weight / BMI Weight Weight: 66.1 kg Body Mass Index (BMI) 25.0 ABG / Lab / Microbiology Data Result Diagrams: 09/30/20 05:15 10/03/20 06:00 Microbiology: Microbiology 09/29/20 11:35 Blood Culture (Wb) - Anticubital Right Blood Culture - Final No growth in 5 days. 09/29/20 11:15 Blood Culture (Wb) - Anticubital Left Blood Culture - Final No growth in 5 days. 09/29/20 11:00 Wound - Ankle Gram Stain - Final 09/29/20 11:00 Wound - Ankle Wound Culture - Final Meth. resistant Staph. aureus Enterococcus faecalis 09/29/20 11:00 Wound - Ankle Anaerobic Culture - Final No anaerobic bacteria isolated. 09/29/20 11:00 Wound - Toe Gram Stain - Final 09/29/20 11:00 Wound - Toe Wound Culture - Final Meth. resistant Staph. aureus 09/29/20 11:00 Wound - Toe Anaerobic Culture - Final No anaerobic bacteria isolated. D/C Instructions Discharge Diet: 1800 Calorie Control Diet Weight Bearing Status: Partial weight bearing (use walker) Meaningful Use Info Meaningful Use Diagnoses (Choose all that apply): None applicable Discharge Plan Admission Admit Date/Time: 09/29/20 13:14 Primary Reason for Your Visit: cellulitis right foot Attending Provider: Blas Pagan Primary Care Provider: Kelsy Mensah Consulting Providers: Moriah Bernal ; Loki Rico ; Loki Wilson Instructions Additional Instructions / Restrictions: Wash foot with soap and water; do not soak. Change dressing daily to right great toe and ankle ulcer with hydrogel and adaptic. Continue to wear right foot surgical shoe. Resume Lantus 10 units SQ daily-monitor blood sugars closely Discharge Orders/Prescriptions Prescriptions: New linezolid [Zyvox] 600 mg tablet 600 mg PO BID Qty: 28 RF: 0 Continued metformin 500 MG tablet 500 mg PO TIDCM RF: 0 glyburide 5 MG tablet 5 mg PO DAILY@0800 RF: 0 multivitamin 1 EACH tablet 1 ea PO DAILY RF: 0 cyanocobalamin (vitamin B-12) 1,000 MCG tablet 1,000 mcg PO DAILY RF: 0 ascorbic acid (vitamin C) 500 MG tablet 500 mg PO DAILY RF: 0 atenolol 50 MG tablet 50 mg PO BID RF: 0 cholecalciferol (vitamin D3) 1,000 UNIT capsule 1,000 unit PO DAILY RF: 0 omega-3 fatty acids-fish oil 1 EACH capsule,delayed release(DR/EC) 1 cap PO TID RF: 0 aspirin 81 MG tablet,chewable 81 mg PO DAILY RF: 0 lisinopril 20 MG tablet 20 mg PO DAILY RF: 0 magnesium oxide 400 MG tablet 400 mg PO DAILY RF: 0 furosemide 20 MG tablet 20 mg PO DAILY RF: 0 amlodipine 10 MG tablet 10 mg PO DAILY RF: 0 Referrals / Follow Up: Kelsy Mensah MD [Primary Care Provider] - Within 1 Month (YOU ALREADY HAVE APPOINTMENT SCHEDULED OCTOBER 20 2020 WITH DOCTOR [facility]. YOU ARE TO KEEP THIS APPOINTMENT.) Ema Chao DPM [STAFF PHYSICIAN] - ([facility] with Dr[facility] Chao. [facility] CALL THE PATIENT TO SCHEDULE APPOINTMENT.) Loki Rico MD [STAFF PHYSICIAN] - Within 2 Weeks Disposition Disposition (needs filled in before D/C Order can be placed): Home, Self Care Charges/Coding Visit Charges Inpatient E&M: 64836 Disch Hosp
== END 2020-10-03 14:40 | disposition home or self-care (01) | DRG 638 ==
LOC: ED 11:29 → MS3 13:21
PROVIDERS: Podiatrist; Admitting Provider Family Medicine; Emergency Provider Emergency Medicine; PCP Internal Medicine; Visit Provider Internal Medicine
DX: E11.621 Type 2 diabetes mellitus with foot ulcer (principal); L03.115 Cellulitis of right lower limb; L97.915 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 without evidence of necrosis; L97.514 Non-pressure chronic ulcer of other part of right foot with necrosis of bone; S90.425A Blister (nonthermal), left lesser toe(s), initial encounter; X58.XXXA Exposure to other specified factors, initial encounter; B95.62 Methicillin resistant Staphylococcus aureus infection as the cause of diseases classified elsewhere; B95.2 Enterococcus as the cause of diseases classified elsewhere; Z79.899 Other long term (current) drug therapy; E11.22 Type 2 diabetes mellitus with diabetic chronic kidney disease; I12.9 Hypertensive chronic kidney disease with stage 1 through stage 4 chronic kidney disease, or unspecified chronic kidney disease; N18.31 Chronic kidney disease, stage 3a; E11.42 Type 2 diabetes mellitus with diabetic polyneuropathy; E11.610 Type 2 diabetes mellitus with diabetic neuropathic arthropathy; E11.51 Type 2 diabetes mellitus with diabetic peripheral angiopathy without gangrene; E11.69 Type 2 diabetes mellitus with other specified complication; E78.5 Hyperlipidemia, unspecified; I25.10 Atherosclerotic heart disease of native coronary artery without angina pectoris; M19.90 Unspecified osteoarthritis, unspecified site; Z86.73 Personal history of transient ischemic attack (TIA), and cerebral infarction without residual deficits; E11.36 Type 2 diabetes mellitus with diabetic cataract; Z87.19 Personal history of other diseases of the digestive system; Z87.442 Personal history of urinary calculi; Z79.84 Long term (current) use of oral hypoglycemic drugs; Z79.82 Long term (current) use of aspirin; Z95.1 Presence of aortocoronary bypass graft; Z89.412 Acquired absence of left great toe; Z89.421 Acquired absence of other right toe(s); Z89.021 Acquired absence of right finger(s)
CPT/HCPCS: 36415; 73610; 73630; 73720; 73723; 80048; 80053; 80202; 82962; 83036; 83605; 85025; 85610; 85652; 85730; 86140; 87040; 87070; 87075; 87077; 87186; 87205; 87640; 93923; 93926; 97162; 97166; 97802; 99284; A9575; J7030; J7040; J7050; A4216

== ENCOUNTER 2020-10-05 08:11 | Day surgery (SDC) | payer SELFPAY, OTHER ==
--- NOTE | 2020-10-05 10:59 | PCM.HP.BLA ---
History and Physical Date of Admission: 10/05/20 Assessment & Plan Assessment/Plan (1) Peripheral arterial disease: PLAN: Will discuss patient with Dr. Wilson. An abdominal pelvic arteriogram with right lower extremity intervention was discussed with the patient. She is agreeable to proceed with the proposed procedure if indicated. Patient has had the opportunity to ask and have questions answered. Patient verbally understands and agrees with the plan. Patient is aware that the procedure may or may not be performed during this hospitalization. She is ambulatory with a walker which will aid in recovery following her procedure. She also has a history of chronic renal disease which will also be taken into consideration during the procedure. She is on Metformin as an outpatient. Thank you for allowing us to participate in this patient's care. HPI Consult Data Date of Consult: 10/02/20 HPI Narrative HPI Narrative: DARREN SANDOVAL, is a 79 F who presents with two non-healing right foot wounds. Patient states her right ankle/foot started swelling in February 2020. She was hospitalized at that time and given IV antibiotic for cellulitis. She had also noted ankle seepage around February which developed into a lateral ankle and dorsal 1st toe wound. She has been following with foot and ankle specialist here in [place]. She notes her two daughters have been changing her dressings daily. Her last appointment with her box inspector, Dr. Chao, was last Friday. She was sent from their office to the [place] ED with concern of osteomyelitis. She has failed outpatient antibiotic treatment with doxycycline and amoxicillin. Patient stated she never took the amoxicillin due to stomach irritation. Her culture in the hospital demonstrates MRSA and enterococcus faecalis. Patient is on Vanco IV. Infectious disease is being consulted. Patient denies any bleeding from her wounds. She notes they area dry wounds. Patient has a history of multiple amputations. She had a left great toe amputation, 3rd toe on the right foot amputation, and partial right amputation of right index finger. Patient has a history of PAD, diabetes, HTN, CKD III, Charcot foot, hyperlipidemia. She notes her diabetes is well controlled. Her last Hgb A1C was 6.0 on 08/02/20. She notes her last cholesterol level was around the same time. Her LDL was elevated however the remaining of her cholesterol was normal. She was attempted to be placed on a statin medication however she could not tolerate due to muscle aches. She notes being on an 81 mg ASA. She is able to walk on flat ground as long as possible without any claudication symptoms. She notes her arthritis typically stops her from walking. She notes history of CABG x 4 in 2016 at [facility]. She does not currently have a metal sander and finisher as Dr. Gutierrez has retired and she has not established with another metal sander and finisher. She denies previous myocardial infarction, chest pain, shortness or breath. She is not a smoker. She denies previous personal history of COVID or being around any family with COVID. She has not had her vaccination. She is well known to Dr. Wilson. He has completed bilateral lower extremity angioplasty in 2012 and 2013. Left carotid endarterectomy in 2013. Previous colonoscopy for diverticulitis in 2014. Left breast biopsy previously in 2011, which had a benign outcome. Patient's previous right lower extremity arteriogram was on 07/06/[address] Wilson which demonstrated multisegmental arterial occlusive disease. Intervention was performed on the right anterior tibial with a 3 x 210 mm NanoCross angioplasty. Successful inline flow via right tibialis anterior with now resumption of palpable right dorsalis pedis pulse. Occluded right peroneal and posterior tibial were noted. Patient also had a left lower extremity arteriogram on 09/20/[address] Wilson. Findings included multisegmental disease with occlusion of the left posterior tibial artery, segmental occlusion of stenosis left anterior tibial artery and severe stenosis and short segment occlusion left peroneal artery. A left anterior tibial 3 x 80 mm and 3.5 x 210 mm NanoCross angioplasty and a left peroneal 3 x 80 mm and 3.5 x 210 mm NanoCross angioplasty was performed. Patient had vascular studies today which demonstrated right PT 0.42 and left PT 0.52 compared to her previous study in 2013 which demonstrated right PT 1.10 and left PT 1.02. Dr. Mensah is the patient's PCP. [facility] Medical History (Updated 09/29/20 @ 16:[address] Moriah Bernal, EUSEBIO) Arthritis Breast lump in female Cataracts, bilateral Diabetes Diverticulosis Gallstones Heart failure High blood pressure Kidney stones Non-smoker Osteoarthritis Home Medications glyburide 5 mg PO DAILY@0800 08/26/15 [History Last Taken 09/29/20] metformin 500 mg PO TIDCM 06/04/16 [History Last Taken 09/29/20] ascorbic acid (vitamin C) 500 mg PO DAILY 12/09/16 [History Last Taken 09/29/20] atenolol 50 mg PO BID 12/09/16 [History Last Taken 09/29/20] cholecalciferol (vitamin D3) 1,000 unit PO DAILY 12/09/16 [History Last Taken 09/29/20] cyanocobalamin (vitamin B-12) 1,000 mcg PO DAILY 12/09/16 [History Last Taken 09/29/20] multivitamin 1 ea PO DAILY 12/09/16 [History Last Taken 09/29/20] omega-3 fatty acids-fish oil 1 cap PO TID 12/09/16 [History Last Taken 09/29/20] aspirin 81 mg PO DAILY 06/11/17 [History Last Taken 09/29/20] lisinopril 20 mg PO DAILY 12/05/17 [History Last Taken 09/29/20] magnesium oxide 400 mg PO DAILY 03/01/20 [History Last Taken 09/29/20] furosemide 20 mg PO DAILY 03/02/20 [History Last Taken 09/29/20] amlodipine 10 mg PO DAILY 09/29/20 [History Last Taken 09/29/20] Allergy/AdvReac Type Severity Reaction Status Date / Time adhesive Allergy Unknown Verified 09/29/20 10:25 atorvastatin calcium Allergy Unknown Verified 09/29/20 10:25 [From Lipitor] bacitracin Allergy Unknown Verified 09/29/20 10:25 [From Neosporin ([id number])] bacitracin zinc Allergy Unknown Verified 09/29/20 10:25 [From Neosporin ([id number])] fenofibrate nanocrystallized Allergy Unknown Verified 09/29/20 10:25 [From Tricor] fenofibrate,micronized Allergy Unknown Verified 09/29/20 10:25 [From Tricor] flurbiprofen Allergy Unknown Verified 09/29/20 10:25 gemfibrozil Allergy Unknown Verified 09/29/20 10:25 glipizide [From Glucotrol] Allergy Unknown Verified 09/29/20 10:25 metronidazole Allergy ALLERGY Verified 09/29/20 10:25 neomycin sulfate Allergy Unknown Verified 09/29/20 10:25 [From Neosporin ([id number])] polymyxin B Allergy Unknown Verified 09/29/20 10:25 [From Neosporin ([id number])] prednisolone acetate, Allergy ALLERGY Verified 09/29/20 10:25 micronized simvastatin Allergy ALLERGY Verified 09/29/20 10:25 tramadol [From Ultram] Allergy ALLERGY Verified 09/29/20 10:25 pravastatin AdvReac Other Verified 09/29/20 10:25 Family History Mother Diabetes Father Hypertension CVA (cerebral vascular accident) Brother Lung cancer Sister Breast cancer COPD (chronic obstructive pulmonary disease) Surgical History History of cholecystectomy History of heart bypass surgery History of knee replacement Social History Smoking Status: Never smoker additional social history: USES ASPIRIN ROS Constitutional Constitutional: Reports systems reviewed and no addt'l complaints, except as documented Eyes Eyes: Reports systems reviewed and no addt'l complaints, except as documented ENT HEENT: Reports systems reviewed and no addt'l complaints, except as documented Cardiovascular Cardiovascular: Reports systems reviewed and no addt'l complaints, except as documented Respiratory/Chest Respiratory/Chest: Reports systems reviewed and no addt'l complaints, except as documented Gastrointestinal Gastrointestinal: Reports constipation and weight changes Genitourinary Genitourinary: Reports systems reviewed and no addt'l complaints, except as documented Musculoskeletal Musculoskeletal: Reports systems reviewed and no addt'l complaints, except as documented Integumentary Integumentary: Reports systems reviewed and no addt'l complaints, except as documented Neurologic Neurologic: Reports systems reviewed and no addt'l complaints, except as documented Psychiatric Psychiatric: Reports systems reviewed and no addt'l complaints, except as documented Endocrine Endocrinology: Reports systems reviewed and no addt'l complaints, except as documented Hematologic/Lymphatic Hematologic/Lymphatic: Reports systems reviewed and no addt'l complaints, except as documented Allergic/Immunologic Allergic/Immunologic: Reports systems reviewed and no addt'l complaints, except as documented Physical Exam Const General Appearance: cooperative, comfortable, well kempt and well developed HEENT normocephalic and head/scalp atraumatic Eyes PERRL and EOMs intact bilaterally Neck full ROM and no lymphadenopathy Lymph Lymphatic: no lymphadenopathy noted Chest inspection of chest normal Resp normal respiratory effort, normal air movement and clear to auscultation bilaterally Cardio regular rate and regular rhythm Bruits: Negative for carotid bruit or femoral bruit GI non-tender and non-distended Auscultation: normoactive bowel sounds Palpation: soft and hernia umbilical (easily reducible ) no CVA tenderness Back/Spine normal ROM and normal to inspection Extremity Peripheral Pulses: Yes brachial pulses present bilateral 2+, radial pulses present bilateral 2+, femoral pulses present bilateral 2+, popliteal pulses present bilateral 2+, posterior tibial pulses present bilateral (0) and dorsalis pedis pulses present bilateral (0) Skin Wound Narrative: Right foot- wrapped with Kerlix. Right lateral ulcer, dry wound. Dorsum of first toe with dry wound. Erythema noted of the foot. No active bleeding noted. No erythema spreading up the leg. Lab / Micro Data Result Diagrams: 09/30/20 05:15 document embedded image 10/02/20 05:22 document embedded image Labs:Laboratory Results - last 24 hr 10/01/20 17:07: POC Glucose 222 H 10/01/20 21:05: POC Glucose 255 H 10/02/20 05:22: Sodium 135 L, Potassium 4.5, Chloride 110 H, Carbon Dioxide 17.0 L, Anion Gap 8, BUN 33 H, Creatinine 1.42 H, Estim Creat Clear Calc 27.74, Est GFR (MDRD) Af Amer 46 L, Est GFR (MDRD) Non-Af 38 L, BUN/Creatinine Ratio 23.2 H, Glucose 173 H, Calcium 8.5 10/02/20 06:34: POC Glucose 177 H 10/02/20 12:11: POC Glucose 286 H Micro:Microbiology 09/29/20 11:00 Wound - Ankle Gram Stain - Final 09/29/20 11:00 Wound - Ankle Wound Culture - Final Meth. resistant Staph. aureus Enterococcus faecalis 09/29/20 11:00 Wound - Ankle Anaerobic Culture - Preliminary Checking for anaerobes, further studies to follow. 09/29/20 11:00 Wound - Toe Gram Stain - Final 09/29/20 11:00 Wound - Toe Wound Culture - Final Meth. resistant Staph. aureus 09/29/20 11:00 Wound - Toe Anaerobic Culture - Final No anaerobic bacteria isolated. Charges/Coding Visit Charges Office Visits / Consults: 82189 IP Consult L3 10/02/20 0253 <Electronically signed by Cristina ECHEVERRIA PA-C> Cosigner Signature (if applicable): CC: EUSEBIO Bernal; Dr. Kelsy Mensah MD; Dr. Loki Wilson MD; Dr. Loki Rico MD ~Signed ADDENDUM by Dr. Loki Wilson MD on 10/02/20 at 1809 Addendum I concur with the evaluation and assessment performed by Cristina Puri PA-C. The patient suggest to me that she previously has had a stent placed in her lower extremity. I do not see evidence of that on my previous interventions. As noted my most recent invention with her right lower extremity was July 06, 2012. I gained access that time to the left common femoral artery and then performed a contralateral right lower extremity arteriogram. There was clinically stent occlusive disease of the infrageniculate area on the right with occlusion of the right peroneal and posterior tibial and severe disease of the right anterior tibial artery. I was able to place a Balkan sheath and then a glide catheter and a commuter pilot 150 wire. The glide catheter was removed and a quick cross catheter was placed. I was then able to place a 3 x 210 mm Emily cross balloon. Fortunately at the end the procedure she had a 2+ palpable right dorsalis pedis pulse. I suspect that she needs a similar intervention. My recorded history she has been having troubles for I guess the past 7 or 8 months. By report her right foot cellulitis is responding to conservative treatment. With that in mind I will need to discuss with my director of entertainment possible options. At the moment it does not appear that the Friday that we would have time. I do appreciate the opportunity of assisting with her surgical care and see how we can assist her. Loki Wilson M.D., F.A.C.S. I have re-examined the patient. There are no clinical changes since date of exam.
--- NOTE | 2020-10-05 12:57 | OP.PCM_ITS ---
Problems Associated Problem List Diagnoses (1) Other specified peripheral vascular diseases: (2) Cellulitis of right lower limb: (3) Ulcer of right foot with necrosis of bone: Report of Operation Date of Procedure: 10/05/20 Pre-Operative Diagnosis: Peripheral arterial occlusive disease with ischemic right foot Post-Operative Diagnosis: Same plus segmental stenosis right anterior tibial artery with occlusion of the right peroneal and posterior tibial arteries Surgery/Procedure Performed:: Abdominal pelvic right lower extremity arteriogram with right anterior tibial 2 to 2.5 mm tapered 210 mm Emily cross balloon and 3 x 120 mm Emily cross balloon angioplasty Description of Surgical Findings:: Timeout and informed consent was obtained. 79-year-old female was taken to the special procedures lab and placed upon the table. Bilateral groins were sterilely prepped and draped. Under ultrasound guidance the left common femoral artery was identified. Under ultrasound guidance 2% lidocaine was instilled and under ultrasound guidance a micropuncture needle was inserted micropuncture wire inserted and a micropuncture sheath inserted. 035 J-wire was used to exchanged out for a 5 Chinese sheath. Using an 035 angled Glidewire a universal flush catheter was placed in the abdominal aorta and AP aortogram was obtained. Then using the Glidewire access was gained to the proximal right superficial femoral artery and static views of the right lower extremity were obtained. I then exchanged out for a stiff Glidewire. The flush catheter was removed. The 5 Chinese short sheath was removed and a 5 Chinese 80 cm sheath was placed. Then I used the floppy Glidewire and 4 Chinese glide cath and attempt to access the orifice of the anterior tibial which I was able to do but I could not get the Glidewire to advance so then exchanged out for a pilot control operator 150 wire and used a 035 quick cross catheter and was able to gain access to the right anterior tibial artery with the a pilot control operator wire. The quick cross catheter was removed and I placed a 2.5 to 2 mm tapered 210 mm Emily cross balloon. There was placed all the way down to the ankle mortise and balloon angioplasty up to 14 jennie pressure the entire length of the right anterior tibial artery was performed. I then remove that balloon and reinserted a 3 x 120 mm Emily cross balloon and performed repeat angioplasty of the anterior tibial. Final hand-injection now demonstrated dramatic improvement in 3 critical areas of stenosis involving the anterior tibial now with free flow down to the foot. No apparent complications. It is of note that once the long sheath was inserted the patient received 7000's of heparin then based upon ACT measurements during the procedure she received another 1000 units. At the completion of the case the sheath was withdrawn a short 5 Chinese sheath were inserted. A minx device for a 5 mm sheath was then applied pressure was held but that seemed to fail and she seemed to have bleeding so simple direct pressure was held on the 5 Chinese puncture site. Counts correct blood loss minimal she tolerated procedure well the right lower extremity appeared to be viable at the completion. There appeared to be a Doppler DP signal. Images demonstrate patent abdominal aorta bilateral common iliacs bilateral external iliacs the right superficial femoral space and the right popliteal is blocked by right total knee that appears to be easily patent. The right posterior tibial and peroneal are occluded. The right anterior tibial had severe stenosis at its origin with in the proximal third and at the distal third. Subsequent to the angioplasty there is now straight intact inline flow throughout the right anterior tibial. Impression successfully treated clinically significant stenoses x3 of the right anterior tibial. Inline flow to the proximal foot achieved. Loki Wilson M.D., F.A.C.S. Surgeon: Loki Wilson Type of Anesthesia: IV Sedation and Local
--- NOTE | 2020-10-05 15:28 | PCM.PN.SRG ---
Subjective Subjective No particular complaints. States that the right toe is becoming sore suggesting that is getting more blood flow Objective Data Objective Data Vital Signs: Weight: 146 lb Body Mass Index (BMI) 25.0 Physical Exam Extremity Extremity Narrative: 2+ palpable right dorsalis pedis pulse. Left groin supple and nontender Assessment & Plan Assessment/Plan (1) Peripheral arterial disease: PLAN: Good progress. I anticipate discharge after appropriate bedrest. Loki Wilson M.D., F.A.C.S.
[2020-10-05 15:30] VITALS: BP 156/74; PULSE 54; RESP 18; TEMP 36.7; O2SAT 96
[2020-10-05] MEDS: 0.9% Normal Saline 1,000 ML 100 ML IV (15:53)
[2020-10-05] MEDS: Acetaminophen 325 MG Tablet PO (16:22)
[2020-10-05 16:26] VITALS: BP 161/76; PULSE 55; RESP 18; TEMP 36.3; O2SAT 94
[2020-10-05 17:30] VITALS: BP 145/65; PULSE 56; RESP 18; TEMP 36.4; O2SAT 94
[2020-10-05 18:22] VITALS: BP 142/66; PULSE 58; RESP 18; TEMP 36.4; O2SAT 95
== END 2020-10-05 15:28 | disposition home or self-care (01) ==
LOC: CLSP 08:13 → PCU 15:09
PROVIDERS: PCP Internal Medicine; Referring Provider Surgery; Visit Provider Surgery
DX: E11.51 Type 2 diabetes mellitus with diabetic peripheral angiopathy without gangrene (principal); E11.621 Type 2 diabetes mellitus with foot ulcer; L97.514 Non-pressure chronic ulcer of other part of right foot with necrosis of bone; E11.22 Type 2 diabetes mellitus with diabetic chronic kidney disease; I13.0 Hypertensive heart and chronic kidney disease with heart failure and stage 1 through stage 4 chronic kidney disease, or unspecified chronic kidney disease; N18.30 Chronic kidney disease, stage 3 unspecified; I50.9 Heart failure, unspecified; L03.115 Cellulitis of right lower limb; E11.610 Type 2 diabetes mellitus with diabetic neuropathic arthropathy; M19.90 Unspecified osteoarthritis, unspecified site; E78.5 Hyperlipidemia, unspecified; Z87.19 Personal history of other diseases of the digestive system; Z87.442 Personal history of urinary calculi; Z79.82 Long term (current) use of aspirin; Z79.84 Long term (current) use of oral hypoglycemic drugs; Z79.899 Other long term (current) drug therapy
CPT/HCPCS: 36200; 36245; 37228; 75625; 75710; 76937; 99152; 99153; C1760; J7030; J7040; C1725; C1769; C1887; C1894

== ENCOUNTER 2020-10-17 10:45 | Outpatient (RCR) | payer OTHER, SELFPAY ==
[2020-10-11 14:18] VITALS: BP 178/58; PULSE 61; RESP 16; BMI 24.9
--- NOTE | 2020-10-11 15:29 | PN.PCM_ITS ---
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 She was recently seen at [facility] with a hospitalization for cellulitis further disease work-up. She was discharged on 10-05-20. She had subsequent imaging that ruled out osteomyelitis and it was identified that she had pronounced peripheral vascular disease. Since her discharge home she has had vascular intervention and spiritism by Dr. Wilson. Has been changing the dressing with hydrogel and Adaptic. She denies odor or redness. She denies fever, chill, nausea, vomiting, diarrhea. Objective Data Objective Data Vital Signs: Vital Signs Pulse Resp BP 61 16 178/58 H 10/11/20 14:18 10/11/20 14:18 10/11/20 14:18 Oxygen Delivery Method Room Air Weight: 65.771 kg Body Mass Index (BMI) 24.9 Physical Exam Const alert and oriented x3 General Appearance: cooperative HEENT normocephalic Extremity Extremity Narrative: Right foot/ankle: Ulceration to the lateral ankle and also to the dorsal 1st toe, down to subcutaneous tissue and bone at hallux site (white and firm). no purulence, no fluctuance, no crepitus, no maloder, no strea juliet, no visible abscess present, no erythema noted. Contracture of lesser toes- chronic. Diminished palpable pulses. No bogginess or fluctuance to the right lower extremity. Skin General Skin Exam: erythema Neuro Neuro Narrative: significantly decreased sensation to feet bilateral. Psych cooperative and affect normal Debridement Note Debridement Note Post-Debridement Measurements and Additional Note: Post-Debridement Measurements/Treatment IRLANDA - Nurse 1 - General Ulcer Assessment Start: 10/11/20 13:57 Freq: Status: Active Protocol: MISSY Activity Type Activity Date Activity User E-Sign Co-Sign Detail Recorded Client Recorded Date Recorded By Document 10/11/20 14:18 [facility] [id number] 10/11/20 14:34 [facility] 10/11/20 14:18 - Today's Visit Information Type of service Initial Visit Arrival Mode Wheelchair Transfer Assistance Other Transfer Assist (Other) [email or web address] Accompanied by daughter Patient Identification Verified (Name & Yes ) Patient Requires Transmission-Based No Precautions Height and Weight Height 5 ft 4 in Weight 65.771 kg Weight in Pounds 145.0 lbs Weight Measurement Method Estimated by Patient Body Mass Index (BMI) 24.9 BMI Classification Normal BSA - Shana 1.71 Vital Signs Pulse Rate (60-100) 61 Pulse Location Monitor Respiratory Rate (12-18) 16 Respiratory rate source Observation Oxygen Delivery Method Room Air Blood Pressure (90/60-120/80) 178/58 H Blood Pressure Mean (mm Hg) 98 Source Monitor Position Sitting Blood Pressure Location Right Arm History Since Last Visit- (Skip if this is Patient's initial visit) Left Footwear Surgical Shoe with pressure relief insole Right Footwear Surgical Shoe with pressure relief insole Pain Scale: 0-10 Numeric Is Patient Pain Free? Yes Communication Assessment Preferred language Scottish Deliverer Pharmacy Required No Able to Read Yes Able to Write Yes Communication Tools None Right Hearing Abillity Hard of Hearing Left Hearing Abillity Hard of Hearing Visual Assistive Devices Glasses Teaching Assessment Preferences Verbal,Written, Audio/Visual, Demonstration Barriers to Learning Hearing Impairment Readiness To Learn Excellent Willingness to Engage in Self Management High Activies Readiness to Engage in Self Management High Activities Anxiety Level Calm Cooperation Cooperative Perception Coherent Interest in Health Problem Asks Questions Education Importance Acknowledges Need Does Patient Smoke tobacco or other No substances Smoking Status Never smoker Is Patient Diabetic Yes Functional Assessment Recent Decline in Ability to Perform Denies Any Declines 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 Cultural/Yazdanism Needs that may affect Yes: jailene Treatment Plan Teaching: Wound Center *Welcome to the Wound Center -Person Taught Patient,Family -Teaching Method Demonstration -Response to teaching Verbalize understanding Welcome to the Wound Care Center English FOURNIER - Nurse 1 - General Ulcer Measurement Start: 10/11/20 13:57 Freq: Status: Active Protocol: Activity Type Activity Date Activity User E-Sign Co-Sign Detail Recorded Client Recorded Date Recorded By Document 10/11/20 14:18 [facility] [id number] 10/11/20 14:34 [facility] 10/11/20 14:18 Wound Center Nurse 1 #2- R LAT ANKLE -Combined with other wound No -Current Size (cm) - Length 2 -Current Size (cm) - Width 2.6 -Current Size (cm) - Depth 0.4 -Total Square Cm 5.2 -Date of Last Picture (Recall this 10/11/20 field) -Photo Taken Yes -Epithelialization None Present -Tunneling No -Undermining/Tunneling No -Circular Undermining No -Exudate Amt Small -Exudate Type Serosanguineous -Wound Margin Thickened & Rolled Under -Granulation Amt Small (1-33%) -Granulation Quality Red -Slough/Fibrin Yes -Necrosis Amt Large (67-100%) -Necrotic Tissue Type Adherent Slough -Texture (Shakira-wound Skin Appearance) Assessed, Scarring -Moisture (Shakira-wound Skin Appearance) Assessed,Dry/ Scaly -Color (Shakira-wound Skin Appearance) Assessed -Temperature (Shakira-wound Skin No Abnormality Appearance) (Pt Warm) -Tenderness on Palpation (Shakira-wound No Skin Appearance) -Ulcer Cleansing SOAPY WATER -Foul Odor after Cleansing No -Anesthetic Used 5% Lidocaine Gel #1- R HALLUX CLUSTER -Combined with other wound No -Current Size (cm) - Length 4.5 -Current Size (cm) - Width 1.3 -Current Size (cm) - Depth 0.2 -Total Square Cm 5.85 -Date of Last Picture (Recall this 10/11/20 field) -Photo Taken Yes -Epithelialization None Present -Tunneling No -Undermining/Tunneling No -Circular Undermining No -Exudate Amt Medium -Exudate Type Serosanguineous -Wound Margin Distinct, Outline Attached -Granulation Amt Medium (34-66%) -Granulation Quality Red -Slough/Fibrin Yes -Necrosis Amt Medium (34-66%) -Necrotic Tissue Type Eschar -Texture (Shakira-wound Skin Appearance) Assessed, Scarring -Moisture (Shakira-wound Skin Appearance) Assessed -Color (Shakira-wound Skin Appearance) Assessed -Temperature (Shakira-wound Skin No Abnormality Appearance) (Pt Warm) -Tenderness on Palpation (Shakira-wound No Skin Appearance) -Ulcer Cleansing SOAPY WATER -Foul Odor after Cleansing No -Anesthetic Used 5% Lidocaine Gel Lower Limb Edema Present Yes Right Calf (cm) 32.9 Right Ankle (cm) 24 Left Calf (cm) 34.3 Left Ankle (cm) 21.9 WC - Nurse 2 - General Ulcer CM Notes Start: 10/11/20 13:57 Freq: Status: Active Protocol: Activity Type Activity Date Activity User E-Sign Co-Sign Detail Recorded Client Recorded Date Recorded By Document 10/11/20 14:56 JF [id number] 10/11/20 15:02 JF 10/11/20 14:56 Wound Center Nurse 2 #2- R LAT ANKLE -Time 14:56 -Correct Patient Yes -Correct Side, Site, Position Yes -Correct Procedure Yes -Procedure Performed Yes -Type of Procedure Debridement -Clinical Debridement Subcutaneous -Tissue Removed Subcutaneous -Post Debridement (cm) - Length 2 -Post Debridement (cm) - Width 2.7 -Post Debridement (cm) - Depth 0.4 -Total Square (Post) (cm) 5.4 -Area of Debridement (cm) - Length 2 -Area of Debridement (cm) - Width 2.7 -Total Square (Area) (cm) 5.4 -Tunneling No -Undermining/Tunneling No -Circular Undermining No -Wound/Ulcer Outcome Not Healed -Ulcer Cleansing Rinsed/ Irrigated with Saline -Foul Odor after Cleansing No -Bioengineered Tissue No -Bleeding Controlled with Pressure -Offloading Yes -Type of Offloading Surgical Shoe -Treatment Response Procedure Tolerated Well -Debridement - Subq, 1st 20sq cm Yes #1- R HALLUX CLUSTER -Time 14:57 -Correct Patient Yes -Correct Side, Site, Position Yes -Correct Procedure Yes -Procedure Performed Yes -Type of Procedure Debridement -Clinical Debridement Subcutaneous -Tissue Removed Subcutaneous -Post Debridement (cm) - Length 4.5 -Post Debridement (cm) - Width 1.4 -Post Debridement (cm) - Depth 0.2 -Total Square (Post) (cm) 6.30 -Area of Debridement (cm) - Length 4.5 -Area of Debridement (cm) - Width 1.4 -Total Square (Area) (cm) 6.30 -Tunneling No -Undermining/Tunneling No -Circular Undermining No -Wound/Ulcer Outcome Not Healed -Ulcer Cleansing Rinsed/ Irrigated with Saline -Foul Odor after Cleansing No -Bioengineered Tissue No -Bleeding Controlled with Pressure -Offloading Yes -Type of Offloading Surgical Shoe -Treatment Response Procedure Tolerated Well -Debridement - Subq, 1st 20sq cm No Pain Scale: 0-10 Numeric Is Patient Pain Free? Yes WC - Nurse 3 - General Ulcer D/C NN Start: 10/11/20 13:57 Freq: Status: Active Protocol: Activity Type Activity Date Activity User E-Sign Co-Sign Detail Recorded Client Recorded Date Recorded By Document 10/11/20 15:12 MT [id number] 10/11/20 15:14 MT Edit Result 10/11/20 15:12 MT (1) [id number] 10/11/20 15:14 MT (1) #2- R LAT ANKLE - Other Dressing ADAPTIC => ADAPTIC,COLTEN 10/11/20 15:12 Wound Care Nurse 3 #2- R LAT ANKLE -Ulcer Cleansing Rinsed/ Irrigated with Saline -Foul Odor after Cleansing No -Primary Dressing Applied C Hydrogel ($) -Other Dressing ADAPTIC,COLTEN -Primary Dressing Covered/Secured with Dry Gauze,Dry Gauze & Roll Gauze,Secured with Tape #1- R HALLUX CLUSTER -Ulcer Cleansing Rinsed/ Irrigated with Saline -Foul Odor after Cleansing No -Primary Dressing Applied C Hydrogel ($) -Primary Dressing Covered/Secured with Dry Gauze & Roll Gauze, Secured with Tape -Other Covering ADAPTIC Wound debrided: right lower extremity distal hallux and lateral ankle Wound Grade/Stage: 2 Type of Debridement: Excisional debridement Anesthesia Used: 4% Lidocaine Solution Depth: in the subcutaneous layer Percentage of wound debrided: 100 Instrument Used: #15 blade Tissue Removed: fibrous, devitalized subcutaneous, biofilm, slough Severity: Fat Layer Exposed Amount of bleeding with debridement: Mild Bleeding Controlled with: Pressure Patient tolerated procedure: Patient tolerated procedure well Assessment/Plan Assessment/Plan (1) Type 2 diabetes mellitus with diabetic polyneuropathy: CODE(S): E11.42 - Type 2 diabetes mellitus with diabetic polyneuropathy (2) Other specified peripheral vascular diseases: CODE(S): I73.89 - Other specified peripheral vascular diseases (3) Ulcer of right lower extremity with muscle involvement without evidence of necrosis: CODE(S): L97.915 - 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 without evidence of necrosis (4) Ulcer of right foot with bone involvement without evidence of necrosis: CODE(S): L97.516 - Non-pressure chronic ulcer of other part of right foot with bone involvement without evidence of necrosis (5) Unspecified protein-calorie malnutrition: CODE(S): E46 - Unspecified protein-calorie malnutrition (6) Delayed wound healing: CODE(S): T14.8XXD - Other injury of unspecified body region, subsequent encounter PLAN: I reviewed and discussed her case today. Chart review from her most recent hospital admission, recent surgical intervention, diagnostic data were reviewed. Debridement was performed today as noted in the clinical panel to all of the ulcer sites. The following work up and care recommendations were made: Dressing: To change dressing daily with hydrogel. Wash: Soap and water Tissue growth optimization: I recommend application of a wound advanced healing product such as epi fix. The benefits, indications and anticipated management were reviewed. This is medically necessary for limb salvage and would be expected to speed up the healing process. It is noted she is currently on the shade and will take this information back to the group to see if she can get this approved. If she is not able to proceed forward with this I would consider Santyl application. Offload: To continue with offloading surgical shoe Vascular: She has impaired vascular status and had vascular surgery intervention on 10-05-[address] Wilson as the following: Abdominal right lower extremity arteriogram with right anterior tibial balloon angioplasty with improved perfusion. To follow-up as scheduled. Edema: It is okay to wear an Colten wrap and intermittently elevate Infection: Her cellulitis has resolved. She had an MRI performed on 09-29-20 which did not confirm diagnosis of osteomyelitis. She was seen by infectious disease specialist, Dr. Rico during her last hospital admission and there was a goal set for 4 weeks of linezolid. She will follow-up in the outpatient setting. Her prior cultures demonstrated MRSA and Enterococcus faecalis. During her last hospital admission her blood cultures were negative. Serial labs will be followed. Pain: This is controlled today. Host factors: Her comorbidities are noted and this may contribute to delayed healing. I recommend nutritional supplementation with Maciej to optimize healing. She understands she is still at risk for limb loss and delays in healing. I answered all the patient's questions. To return to the wound healing center in 1-2 weeks, or call sooner if the patient has any questions or concerns. Note: Yub speech recognition pocketed spring machine operator software was used to create portions of this document. Sound-alike and misspelled words, as well as other pocketed spring machine operator errors may be contained in the documentation. The medical decision making level is low. There is noted low risk of morbidity after considering this treatment plan and diagnostic data. The medical decision making level is limited based on data including the review of prior external notes, review of a prior test, or ordering a test. The problems addressed require a low medical decision making level which includes two or more minor problems, a stable chronic illness, or an acute uncomplicated illness or injury.
[2020-10-17 11:04] VITALS: BP 152/65; PULSE 67; RESP 18; TEMP 36.3; BMI 24.9
--- NOTE | 2020-10-17 12:16 | PN.PCM_ITS ---
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 She was recently seen at [facility] with a hospitalization for cellulitis further disease work-up. She was discharged on 10-05-20. She had subsequent imaging that ruled out osteomyelitis and it was identified that she had pronounced peripheral vascular disease. Since her discharge home she has had vascular intervention and voodoo by Dr. Wilson. Has been changing the dressing with hydrogel and Adaptic. She denies odor or redness. She denies fever, chill, nausea, vomiting, diarrhea. Progress of Wound: Stable with continued distal phalanx bone exposure to hallux Subjective Subjective Patient seen and examined resting comfortably. Patient denies any new pedal complaints. Patient denies any nausea, fever, chills, chest pain, shortness of breath, cough, streaking, purulence, vomiting. Objective Data Objective Data Vital Signs: Vital Signs Temp Pulse Resp BP 97.3 F L 67 18 152/65 H 10/17/20 11:04 10/17/20 11:04 10/17/20 11:04 10/17/20 11:04 Oxygen Delivery Method Room Air Weight: 65.771 kg Body Mass Index (BMI) 24.9 Physical Exam Extremity Extremity Narrative: Right foot/ankle: Ulceration to the lateral ankle and also to the dorsal 1st toe, down to subcutaneous tissue and bone at hallux site (white and firm) and done to muscle lateral ankle. no purulence, no fluctuance, no crepitus, no maloder, no streaking, no visible abscess present, no erythema noted. Contracture of lesser toes- chronic. Callus noted to tuft of left second toe palpable DP and PT pulses bilateral. No bogginess or fluctuance to the right lower extremity. Has planus with some rocker-bottom type foot changes noted. Neuro Neuro Narrative: significantly decreased sensation to feet bilateral. Debridement Note Debridement Note Post-Debridement Measurements and Additional Note: Post-Debridement Measurements/Treatment IRLANDA - Nurse 1 - General Ulcer Assessment Start: 10/11/20 13:57 Freq: Status: Active Protocol: LOWEXT Activity Type Activity Date Activity User E-Sign Co-Sign Detail Recorded Client Recorded Date Recorded By Document 10/11/20 14:18 [facility] [id number] 10/11/20 14:34 [facility] Document 10/17/20 11:04 DL Desktop 10/17/20 11:11 DL 10/11/20 10/17/20 14:18 11:04 WC - Today's Visit Information Type of service Initial Visit Follow-up Visit (Physician/CIVIL ENGINEERING PROFESSIONAL ) Arrival Mode Wheelchair Ambulatory Transfer Assistance Other None Transfer Assist (Other) [email or web address] Accompanied by daughter Patient Identification Verified (Name & Yes Yes ) Patient Requires Transmission-Based No No Precautions Finger Stick Blood Sugar(mg/dl) (if 68 indicated): Blood Sugar Stated by Patient Height and Weight Height 5 ft 4 in Weight 65.771 kg Weight in Pounds 145.0 lbs Weight Measurement Method Estimated by Patient Body Mass Index (BMI) 24.9 24.9 BMI Classification Normal Normal BSA - Shana 1.71 Temperature (97.8 F-99.1 F) 97.3 F L Temperature Source Temporal Vital Signs Pulse Rate (60-100) 61 67 Pulse Location Monitor Monitor Respiratory Rate (12-18) 16 18 Respiratory rate source Observation Observation Oxygen Delivery Method Room Air Blood Pressure (90/60-120/80) 178/58 H 152/65 H Blood Pressure Mean (mm Hg) 98 94 Source Monitor Monitor Position Sitting Blood Pressure Location Right Arm Have you changed medications since your No last visit? Any new allergies or adverse reactions No Had a fall/change in ADL's that may No increase risk of falls Signs or symptoms of abuse and/or No neglect since last visit Have you been in the hospital since your No last visit? Has dressing in place as prescribed Yes Has compression in place as prescribed Yes Has offloadiing in place as prescribed Yes Experienced any changes in pain level or No management History Since Last Visit- (Skip if this is Patient's initial visit) Left Footwear Surgical Shoe Surgical Shoe with pressure with pressure relief insole relief insole Right Footwear Surgical Shoe Surgical Shoe with pressure with pressure relief insole relief insole Pain Scale: 0-10 Numeric Is Patient Pain Free? Yes Yes Communication Assessment Preferred language [place] Loss Prevention Manager Required No Able to Read Yes Able to Write Yes Communication Tools None Right Hearing Abillity Hard of Hearing Left Hearing Abillity Hard of Hearing Visual Assistive Devices Glasses Teaching Assessment Preferences Verbal,Written, Audio/Visual, Demonstration Barriers to Learning Hearing Impairment Readiness To Learn Excellent Willingness to Engage in Self Management High Activies Readiness to Engage in Self Management High Activities Anxiety Level Calm Cooperation Cooperative Perception Coherent Interest in Health Problem Asks Questions Education Importance Acknowledges Need Does Patient Smoke tobacco or other No substances Smoking Status Never smoker Is Patient Diabetic Yes Functional Assessment Recent Decline in Ability to Perform Denies Any Declines Culture/Sikhism/Curriculum Consultant Cultural/Sikhism Needs that may affect Yes: jailene Treatment Plan Teaching: Wound Center *Welcome to the Wound Center -Person Taught Patient,Family -Teaching Method Demonstration -Response to teaching Verbalize understanding Welcome to the Wound Care Center [place] WC - Nurse 1 - General Ulcer Measurement Start: 10/11/20 13:57 Freq: Status: Active Protocol: Activity Type Activity Date Activity User E-Sign Co-Sign Detail Recorded Client Recorded Date Recorded By Document 10/11/20 14:18 [facility] [id number] 10/11/20 14:34 [facility] Document 10/17/20 11:04 DL Desktop 10/17/20 11:11 DL 10/11/20 10/17/20 14:18 11:04 Wound Center Nurse 1 #2- R LAT ANKLE -Combined with other wound No -Current Size (cm) - Length 2 2.2 -Current Size (cm) - Width 2.6 2.7 -Current Size (cm) - Depth 0.4 0.3 -Total Square Cm 5.2 5.94 -Date of Last Picture (Recall this 10/11/20 field) -Photo Taken Yes No -Epithelialization None Present -Tunneling No -Undermining/Tunneling No -Circular Undermining No -Exudate Amt Small Medium -Exudate Type Serosanguineous Serosanguineous -Wound Margin Thickened & Distinct, Rolled Under Outline Attached -Granulation Amt Small (1-33%) Small (1-33%) -Granulation Quality Red [place] -Slough/Fibrin Yes -Necrosis Amt Large (67-100%) Large (67-100%) -Necrotic Tissue Type Adherent Slough Eschar -Structure Exposed N/A -Texture (Shakira-wound Skin Appearance) Assessed, Scarring Scarring -Moisture (Shakira-wound Skin Appearance) Assessed,Dry/ No Abnormality Scaly -Color (Shakira-wound Skin Appearance) Assessed Rubor -Temperature (Shakira-wound Skin No Abnormality No Abnormality Appearance) (Pt Warm) (Pt Warm) -Tenderness on Palpation (Shakira-wound No Skin Appearance) -Ulcer Cleansing SOAPY WATER Wound Cleanser -Foul Odor after Cleansing No No -Anesthetic Used 5% Lidocaine 4% Lidocaine Gel Solution #1- R HALLUX CLUSTER -Combined with other wound No -Current Size (cm) - Length 4.5 2 -Current Size (cm) - Width 1.3 2 -Current Size (cm) - Depth 0.2 0.3 -Total Square Cm 5.85 4 -Date of Last Picture (Recall this 10/11/20 field) -Photo Taken Yes No -Epithelialization None Present -Tunneling No -Undermining/Tunneling No -Circular Undermining No -Exudate Amt Medium Medium -Exudate Type Serosanguineous Serosanguineous -Wound Margin Distinct, Distinct, Outline Outline Attached Attached -Granulation Amt Medium (34-66%) Small (1-33%) -Granulation Quality Red -Slough/Fibrin Yes -Necrosis Amt Medium (34-66%) Large (67-100%) -Necrotic Tissue Type Eschar Adherent Slough -Structure Exposed Bone,N/A -Texture (Shakira-wound Skin Appearance) Assessed, Scarring Scarring -Moisture (Shakria-wound Skin Appearance) Assessed Dry/Scaly -Color (Shakira-wound Skin Appearance) Assessed No Abnormality -Temperature (Shakira-wound Skin No Abnormality No Abnormality Appearance) (Pt Warm) (Pt Warm) -Tenderness on Palpation (Shakira-wound No No Skin Appearance) -Ulcer Cleansing SOAPY WATER Wound Cleanser -Foul Odor after Cleansing No No -Anesthetic Used 5% Lidocaine 4% Lidocaine Gel Solution Lower Limb Edema Present Yes Right Calf (cm) 32.9 Right Ankle (cm) 24 Left Calf (cm) 34.3 Left Ankle (cm) 21.9 WC - Nurse 2 - General Ulcer CM Notes Start: 10/11/20 13:57 Freq: Status: Active Protocol: Activity Type Activity Date Activity User E-Sign Co-Sign Detail Recorded Client Recorded Date Recorded By Document 10/11/20 14:56 [facility] [id number] 10/11/20 15:02 JF Document 10/17/20 11:31 [facility] [id number] 10/17/20 11:38 JF Edit Result 10/17/20 11:31 JF (1) [id number] 10/17/20 11:50 JF (1) #2- R LAT ANKLE - Clinical Debridement Subcutaneous => Muscle / Fascia - Tissue Removed Subcutaneous => Muscle - Debridement - Subq, 1st 20sq cm Yes => No - Debridement - Muscle / Fascia, 1st => Yes 20sq cm #1- R HALLUX CLUSTER - Clinical Debridement Subcutaneous => Muscle / Fascia - Tissue Removed Subcutaneous => Muscle - Debridement - Muscle / Fascia, 1st => No 20sq cm 10/11/20 10/17/20 14:56 11:31 Wound Center Nurse 2 #2- R LAT ANKLE -Time 14:56 11:32 -Correct Patient Yes Yes -Correct Side, Site, Position Yes Yes -Correct Procedure Yes Yes -Procedure Performed Yes Yes -Type of Procedure Debridement Debridement -Clinical Debridement Subcutaneous Muscle / Fascia -Tissue Removed Subcutaneous Muscle -Post Debridement (cm) - Length 2 2.5 -Post Debridement (cm) - Width 2.7 2.5 -Post Debridement (cm) - Depth 0.4 0.2 -Total Square (Post) (cm) 5.4 6.25 -Area of Debridement (cm) - Length 2 2.5 -Area of Debridement (cm) - Width 2.7 2.5 -Total Square (Area) (cm) 5.4 6.25 -Tunneling No No -Undermining/Tunneling No No -Circular Undermining No No -Wound/Ulcer Outcome Not Healed Not Healed -Ulcer Cleansing Rinsed/ Rinsed/ Irrigated with Irrigated with Saline Saline -Foul Odor after Cleansing No No -Bioengineered Tissue No No -Bleeding Controlled with Pressure Pressure -Offloading Yes Yes -Type of Offloading Surgical Shoe Surgical Shoe -Treatment Response Procedure Procedure Tolerated Well Tolerated Well -Debridement - Subq, 1st 20sq cm Yes No -Debridement - Muscle / Fascia, 1st Yes 20sq cm #1- R HALLUX CLUSTER -Time 14:57 11:32 -Correct Patient Yes Yes -Correct Side, Site, Position Yes Yes -Correct Procedure Yes Yes -Procedure Performed Yes Yes -Type of Procedure Debridement Debridement -Clinical Debridement Subcutaneous Muscle / Fascia -Tissue Removed Subcutaneous Muscle -Post Debridement (cm) - Length 4.5 1.7 -Post Debridement (cm) - Width 1.4 1.5 -Post Debridement (cm) - Depth 0.2 0.3 -Total Square (Post) (cm) 6.30 2.55 -Area of Debridement (cm) - Length 4.5 1.7 -Area of Debridement (cm) - Width 1.4 1.5 -Total Square (Area) (cm) 6.30 2.55 -Tunneling No No -Undermining/Tunneling No No -Circular Undermining No No -Wound/Ulcer Outcome Not Healed Not Healed -Ulcer Cleansing Rinsed/ Rinsed/ Irrigated with Irrigated with Saline Saline -Foul Odor after Cleansing No No -Bioengineered Tissue No No -Bleeding Controlled with Pressure Pressure -Offloading Yes Yes -Type of Offloading Surgical Shoe Surgical Shoe -Treatment Response Procedure Procedure Tolerated Well Tolerated Well -Debridement - Subq, 1st 20sq cm No No -Debridement - Muscle / Fascia, 1st No 20sq cm Pain Scale: 0-10 Numeric Is Patient Pain Free? Yes Yes - Nurse 3 - General Ulcer D/C NN Start: 10/11/20 13:57 Freq: Status: Active Protocol: Activity Type Activity Date Activity User E-Sign Co-Sign Detail Recorded Client Recorded Date Recorded By Document 10/11/20 15:12 MT [id number] 10/11/20 15:14 MT Edit Result 10/11/20 15:12 MT (1) [id number] 10/11/20 15:14 MT Document 10/17/20 11:38 JF [id number] 10/17/20 11:39 JF (1) #2- R LAT ANKLE - Other Dressing ADAPTIC => ADAPTIC,COLTEN 10/11/20 10/17/20 15:12 11:38 Wound Care Nurse 3 #2- R LAT ANKLE -Ulcer Cleansing Rinsed/ Rinsed/ Irrigated with Irrigated with Saline Saline -Foul Odor after Cleansing No No -Primary Dressing Applied C Hydrogel ($) C Hydrogel ($), NonAdherent Contact Layer -Other Dressing ADAPTIC,COLTEN -Primary Dressing Covered/Secured with Dry Gauze,Dry Dry Gauze & Gauze & Roll Roll Gauze, Gauze,Secured Secured with with Tape Tape #1- R HALLUX CLUSTER -Ulcer Cleansing Rinsed/ Rinsed/ Irrigated with Irrigated with Saline Saline -Foul Odor after Cleansing No No -Primary Dressing Applied C Hydrogel ($) C Hydrogel ($), NonAdherent Contact Layer -Primary Dressing Covered/Secured with Dry Gauze & Dry Gauze & Roll Gauze, Roll Gauze Secured with Tape -Other Covering ADAPTIC Right -Compression Wrap Colten Wrap Pain Scale: 0-10 Numeric Is Patient Pain Free? Yes WC - Visit Discharge Discharge Condition Stable Ambulatory Status Wheelchair Transportation Private Auto Accompanied by daughter Medication Reconcilliation completed & Yes provided to patient/care provider Clinical Summary of Care Provided Yes Wound debrided: Hallux dorsal Laterality: Right Wound Grade/Stage: Rosario 2 Type of Debridement: Excisional debridement Anesthesia Used: 4% Lidocaine Solution Depth: to bone (Debrided to muscle) Percentage of wound debrided: 100 Instrument Used: 3mm curette Tissue Removed: includes fibrous, devitalized, biofilm, callus and slough tissue Severity: Necrosis of Bone (Bone appears healthy but is exposed) Amount of bleeding with debridement: Mild Bleeding Controlled with: Pressure Patient tolerated procedure: Patient tolerated procedure well Additional Wound Wound debrided: Lateral ankle Laterality: Right Wound Grade/Stage: Rosario 2 Type of Debridement: Excisional debridement Anesthesia Used: 4% Lidocaine Solution Depth: to muscle Percentage of wound debrided: 100 Instrument Used: 3mm curette Tissue Removed: Includes fibrous, devitalized, biofilm, callus and slough tissue Severity: Necrosis of Muscle Amount of bleeding with debridement: Mild Bleeding Controlled with: Pressure Patient tolerated procedure: Patient tolerated procedure well Assessment/Plan Assessment/Plan (1) Type 2 diabetes mellitus with diabetic polyneuropathy: CODE(S): E11.42 - Type 2 diabetes mellitus with diabetic polyneuropathy (2) Other specified peripheral vascular diseases: CODE(S): I73.89 - Other specified peripheral vascular diseases (3) Ulcer of right lower extremity with muscle involvement without evidence of necrosis: CODE(S): L97.915 - 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 without evidence of necrosis (4) Ulcer of right foot with bone involvement without evidence of necrosis: CODE(S): L97.516 - Non-pressure chronic ulcer of other part of right foot with bone involvement without evidence of necrosis (5) Unspecified protein-calorie malnutrition: CODE(S): E46 - Unspecified protein-calorie malnutrition (6) Delayed wound healing: CODE(S): T14.8XXD - Other injury of unspecified body region, subsequent encounter PLAN: Patient seen and evaluated with daughter present I reviewed and discussed her case today. Chart review from her most recent hospital admission, recent surgical intervention, diagnostic data were reviewed. Debridement was performed today as noted in the clinical panel to all of the ulcer sites. The following work up and care recommendations were made: Dressing: To change dressing daily with hydrogel, Adaptic, dry sterile dressing. Wash: Soap and water before each dressing change Tissue growth optimization: I recommend application of a wound advanced healing product such as epi fix. The benefits, indications and anticipated management were reviewed. This is medically necessary for limb salvage and would be expected to speed up the healing process. It is noted she is currently on the shade and will take this information back to the group to see if she can get this approved. If she is not able to proceed forward with this I would consider Santyl application. Patient is awaiting specific pricing information prior to making decision of going forward with a skin graft. Offload: To continue with offloading surgical shoe Vascular: She has impaired vascular status and had vascular surgery intervention on 10-05-[address] Wilson as the following: Abdominal right lower extremity arteriogram with right anterior tibial balloon angioplasty with improved perfusion. To follow-up as scheduled. Edema: It is okay to wear an Colten wrap and intermittently elevate Infection: Her cellulitis has resolved. She had an MRI performed on 09-29-20 which did not confirm diagnosis of osteomyelitis. She was seen by infectious disease specialist, Dr. Rico during her last hospital admission and there was a goal set for 4 weeks of linezolid. She will follow-up in the outpatient setting. Her prior cultures demonstrated MRSA and Enterococcus faecalis. During her last hospital admission her blood cultures were negative. Serial labs will be followed. Pain: This is controlled today. Host factors: Her comorbidities are noted and this may contribute to delayed healing. I recommend nutritional supplementation with Maciej to optimize he aling. She understands she is still at risk for limb loss and delays in healing. I answered all the patient's questions. To return to the wound healing center in 1-2 weeks, or call sooner if the patient has any questions or concerns. Note: [employer] speech recognition poultry barn manager software was used to create portions of this document. Sound-alike and misspelled words, as well as other poultry barn manager errors may be contained in the documentation.
== END 2020-10-21 23:59 ==
LOC: WC 10:45
PROVIDERS: PCP Internal Medicine; Visit Provider Podiatrist Foot & Ankle Surgery
DX: E11.621 Type 2 diabetes mellitus with foot ulcer (principal); L97.516 Non-pressure chronic ulcer of other part of right foot with bone involvement without evidence of necrosis; L97.313 Non-pressure chronic ulcer of right ankle with necrosis of muscle; E11.51 Type 2 diabetes mellitus with diabetic peripheral angiopathy without gangrene; E11.42 Type 2 diabetes mellitus with diabetic polyneuropathy; R60.0 Localized edema; M20.5X9 Other deformities of toe(s) (acquired), unspecified foot; L84 Corns and callosities; Z79.84 Long term (current) use of oral hypoglycemic drugs; Z79.82 Long term (current) use of aspirin; Z79.899 Other long term (current) drug therapy; Z86.14 Personal history of Methicillin resistant Staphylococcus aureus infection
CPT/HCPCS: 11042; 11043; 99213; G0463

== ENCOUNTER 2020-11-01 15:37 | Inpatient (IN) | payer OTHER, SELFPAY ==
[2020-10-24 11:22] VITALS: BMI 24.9
[2020-11-01] VITALS (9 sets, daily range): BP systolic 118–161; BP diastolic 49–109; PULSE 64–90; RESP 16–22; TEMP 36.8–37.8; O2SAT 93–98; BMI 25.2; BMI 25.8
--- NOTE | 2020-11-01 15:59 | EKG12_ITS ---
Test Reason : WOUND Blood Pressure : / mmHG Vent. Rate : 069 BPM Atrial Rate : 069 BPM P-R Int : 160 ms QRS Dur : 088 ms QT Int : 406 ms P-R-T Axes : 077 060 072 degrees QTc Int : 435 ms Normal sinus rhythm Nonspecific ST abnormality Abnormal ECG Confirmed by ELADIO HUTTON, JOSELUIS ([id number]), assistant production editor PRIYANKA VUONG ([id number]) on 11/03/2020 10:04:55 A M Referred By: HERBERT Confirmed By:ULYSSES HENDRICKS MD
--- NOTE | 2020-11-01 16:08 | EX.ED.DYSGE1 ---
HPI History of Present Illness Chief Complaint: Wound Informant: patient and family Onset/Context/Timing Onset: Yesterday Context: Sudden Onset Timing: Continuous Quality: Infected right great toe and medial side of right foot Location: Infection right foot and great toe Current Severity: Moderate Maximum Severity: Moderate Worsened by: Nothing specific Relieved by: Nothing Associated Symptoms Associated Symptoms: Polyuria, polydipsia, Narrative Narrative: Patient is a 79-year-old woman with history of type 2 diabetes, peripheral arterial disease who was admitted in September for diabetic foot infection. She had a 5-day stay. She was discharged to home on oral antibiotics. She noted that the toe had drainage and there was redness of the foot. She resumed antibiotic she was prescribed with last admission. She was seen by podiatry, Dr. Ema Chao. She was sent to the emergency room. Patient does report night sweats over the past couple of days. Blood sugar this morning was 88. She does have symptoms of hyperglycemia. She denies pain. She does have history of Charcot foot. Prior similar symptoms: Yes Recent Illness/Hospitalization: Yes [facility] Medical History Arthritis Breast lump in female Cataracts, bilateral Diabetes Diverticulosis Gallstones Heart failure High blood pressure Kidney stones Non-smoker Osteoarthritis Ulcer of right foot with necrosis of bone Home Medications glyburide 5 mg PO DAILY@0800 08/26/15 [History Last Taken 09/29/20] metformin 500 mg PO TIDCM 08/26/15 [History Last Taken 10/03/20] ascorbic acid (vitamin C) 500 mg PO DAILY 12/09/16 [History Last Taken 09/29/20] atenolol 50 mg PO BID 12/09/16 [History Last Taken 10/05/20] cholecalciferol (vitamin D3) 1,000 unit PO DAILY 12/09/16 [History Last Taken 09/29/20] cyanocobalamin (vitamin B-12) 1,000 mcg PO DAILY 12/09/16 [History Last Taken 09/29/20] multivitamin 1 ea PO DAILY 12/09/16 [History Last Taken 09/29/20] omega-3 fatty acids-fish oil 1 cap PO TID 12/09/16 [History Last Taken 09/29/20] aspirin 81 mg PO DAILY 06/11/17 [History Last Taken 09/29/20] lisinopril 20 mg PO DAILY 12/05/17 [History Last Taken 10/05/20] magnesium oxide 400 mg PO DAILY 03/01/20 [History Last Taken 09/29/20] furosemide 20 mg PO DAILY 03/02/20 [History Last Taken 09/29/20] amlodipine 10 mg PO DAILY 09/29/20 [History Last Taken 10/05/20] linezolid [Zyvox] 600 mg PO BID #28 tab 10/02/20 [Rx Last Taken Unknown] Allergy/AdvReac Type Severity Reaction Status Date / Time adhesive Allergy Unknown Verified 11/01/20 15:39 atorvastatin calcium Allergy Unknown Verified 11/01/20 15:39 [From Lipitor] bacitracin Allergy Unknown Verified 11/01/20 15:39 [From Neosporin ([id number])] bacitracin zinc Allergy Unknown Verified 11/01/20 15:39 [From Neosporin ([id number])] fenofibrate nanocrystallized Allergy Unknown Verified 11/01/20 15:39 [From Tricor] fenofibrate,micronized Allergy Unknown Verified 11/01/20 15:39 [From Tricor] flurbiprofen Allergy Unknown Verified 11/01/20 15:39 gemfibrozil Allergy Unknown Verified 11/01/20 15:39 glipizide [From Glucotrol] Allergy Unknown Verified 11/01/20 15:39 metronidazole Allergy ALLERGY Verified 11/01/20 15:39 neomycin sulfate Allergy Unknown Verified 11/01/20 15:39 [From Neosporin ([id number])] polymyxin B Allergy Unknown Verified 11/01/20 15:39 [From Neosporin ([id number])] prednisolone acetate, Allergy ALLERGY Verified 11/01/20 15:39 micronized simvastatin Allergy ALLERGY Verified 11/01/20 15:39 tramadol [From Ultram] Allergy ALLERGY Verified 11/01/20 15:39 amoxicillin [From Augmentin] AdvReac Nausea/Vom/ Verified 11/01/20 15:39 Diarrhea clavulanic acid AdvReac Nausea/Vom/ Verified 11/01/20 15:39 [From Augmentin] Diarrhea pravastatin AdvReac Other Verified 11/01/20 15:39 Family History Mother Diabetes Father Hypertension CVA (cerebral vascular accident) Brother Lung cancer Sister Breast cancer COPD (chronic obstructive pulmonary disease) Surgical History History of cholecystectomy History of heart bypass surgery History of knee replacement Social History (Updated 11/01/20 @ 16:[address] Fredo Charles MD) household members: family housing: house Smoking Status: Never smoker alcohol intake: current alcohol intake frequency: other substance use type: does not use additional social history: USES ASPIRIN ROS ROS ED Constitutional Constitutional ED: Reports fever(s), subjective, sweats and weight loss; Denies chills Eyes Eyes: Reports blurry vision; Denies change in vision or diplopia ENT ENT ED: Denies ear pain, rhinorrhea or sore throat Cardiovascular Cardiovascular: Denies chest pain, orthopnea or palpitations Respiratory/Chest Respiratory/Chest: Denies cough, dyspnea, dyspnea on exertion or orthopnea Gastrointestinal Gastrointestinal: Denies abdominal pain, nausea or vomiting Genitourinary Genitourinary ED: Denies dysuria, hematuria or urinary frequency Musculoskeletal Musculoskeletal: Reports arthralgias and myalgias; Denies neck pain Integumentary Reports abscess and rash Neurologic Neurologic: Denies paresthesias or weakness Endocrine Endocrinology: Reports polydipsia and polyuria; Denies polyphagia Allergic/Immunologic Allergic/Immunologic ED: Denies mouth swelling or urticaria EXAM Physical Exam Const Vital Signs: 11/01/20 15:37 11/01/20 16:18 Temperature 98.2 F Temperature Source Oral Pulse Rate 64 68 Respiratory Rate 16 22 H Blood Pressure 135/109 H 159/61 H Blood Pressure Mean 117 93 Pulse Ox 98 97 Oxygen Delivery Method Room Air Room Air Positive well nourished, well developed and obese General Appearance ED: well developed Nutritional Appearance: obese HEENT Reports moist mucous membranes HEENT Narrative: Head is atraumatic normocephalic. Ears are normal. Nares patent. Neck no lymphadenopathy, supple and no JVD Resp normal respiratory effort and clear to auscultation bilaterally Cardio regular rate, regular rhythm, S1 normal heart sound, S2 normal heart sound and no murmurs GI normal to inspection, nondistended, normoactive bowel sounds and non-tender Palpation: soft Back/Spine no CVA tenderness Extremity Negative for normal to inspection Extremity Narrative: Patient has evidence of Charcot foot right foot. There is cellulitis involving the medial aspect of the foot and great toe. There is pallor to the great toe. The DP and PT pulse are not palpable. General Extremety ED: Yes edema and tenderness General Extremity: edema Neuro oriented x3, CN's II-XII intact bilaterally and No no sensory deficits noted Sensorium / Orientation: alert Motor Exam: strength 5/5 throughout Psych mental status grossly normal Skin No no rashes or lesions noted and No no wounds Skin Narrative: Described under extremity portion of the document MDM MDM MDM Narrative Medical decision making narrative: Patient with diabetic foot infection. She also has history of peripheral arterial disease. With prior history of MRSA she was treated with Zosyn and vancomycin. Her allergy to amoxicillin is not an allergy. Sepsis order set was initiated. Repeat labs were obtained to assess blood sugar, anion gap and electrolytes as well as renal function to determine proper dosing of vancomycin. CBC was obtained to assess white count as well as lactate to determine patient has organ dysfunction as well as comprehensive metabolic panel to determine if there is evidence of endorgan dysfunction compared to prior labs. X-ray was obtained to evaluate for osteomyelitis. She does have a history of osteomyelitis. Lab Data Attestation: I reviewed the patient's lab results. Lab results narrative: Patient's lab indicates patient has severe sepsis with organ dysfunction. X-ray of the great toe reveals periosteal elevation medial side of the distal phalanx consistent/suggestive of osteomyelitis. Labs: Laboratory Results - last 24 hr 11/01/20 11/01/20 11/01/20 16:15 16:15 16:15 WBC 18.0 H RBC 4.15 L Hgb 12.4 Hct 37.4 MCV 90.1 MCH 29.9 MCHC 33.2 RDW Std Deviation 45.8 H RDW Coeff of Monique 14.2 Plt Count 347 MPV 10.1 Immature Gran % (Auto) 0.500 Neut % (Auto) 75.5 H Lymph % (Auto) 13.6 L [place] % (Auto) 9.2 Eos % (Auto) 0.8 Baso % (Auto) 0.4 Absolute Neuts (auto) 13.6 H Absolute Lymphs (auto) 2.44 Nucleated RBC % 0 Differential Comment Diff Path Review May foll Platelet Estimate ADEQUATE RBC Morphology NORM C+C PT 13.8 INR 1.1 APTT 49.8 H Sodium 137 Potassium 4.4 Chloride 103 Carbon Dioxide 27.0 Anion Gap 7 BUN 49 H Creatinine 1.67 H Estim Creat Clear Calc 23.59 Est GFR (MDRD) Af Amer 38 L Est GFR (MDRD) Non-Af 31 L BUN/Creatinine Ratio 29.3 H Glucose 156 H Lactic Acid Calcium 9.8 Total Bilirubin 0.70 AST 26 ALT 31 Alkaline Phosphatase 92 Total Protein 8.8 H Albumin 3.3 Globulin 5.5 H Albumin/Globulin Ratio 0.6 L 11/01/20 16:15 WBC RBC Hgb Hct MCV MCH MCHC RDW Std Deviation RDW Coeff of Monique Plt Count MPV Immature Gran % (Auto) Neut % (Auto) Lymph % (Auto) [place] % (Auto) Eos % (Auto) Baso % (Auto) Absolute Neuts (auto) Absolute Lymphs (auto) Nucleated RBC % Differential Comment Diff Path Review Platelet Estimate RBC Morphology PT INR APTT Sodium Potassium Chloride Carbon Dioxide Anion Gap BUN Creatinine Estim Creat Clear Calc Est GFR (MDRD) Af Amer Est GFR (MDRD) Non-Af BUN/Creatinine Ratio Glucose Lactic Acid 3.1 H* Calcium Total Bilirubin AST ALT Alkaline Phosphatase Total Protein Albumin Globulin Albumin/Globulin Ratio Radiography Chest X-Ray - ED: Read by ED Physician (3 view x-ray of the right foot reveals evidence of Charcot's foot and periosteal elevation medial aspect of the distal phalanx right great toe consistent with osteomyelitis.) EKG Initial EKG: Attestation: I personally reviewed and interpreted this EKG as follows: Interpretation: Sinus Rhythm (Ventricular rate is 69. AK interval is 160 ms. QRS duration 88 ms. QT duration 406 ms. There is artifact with the computer is reading is nonspecific ST-T wave changes.) Critical Care Time Critical Care Time: Yes Critical care time (excluding procedures): 30-74 minutes (33 minutes), Including time spent: (Obtaining history, physical exam, documentation, review of prior records, interpretation of x-ray, laboratory studies and initiation of therapy), Discussing w/Patient &/or Family/Partition Assembler, Discussing w/Consultants and Arranging Admission or Transfer Discharge Plan Triage Chief Complaint: Wound ED Provider: Fredo Charles Dx/Rx/DC Orders Clinical Impression: Severe sepsis with acute organ dysfunction, Osteomyelitis of great toe of right foot, Cellulitis of foot, right, Controlled type 2 diabetes mellitus with hyperglycemia Prescriptions: No Action metformin 500 MG tablet 500 mg PO TIDCM RF: 0 glyburide 5 MG tablet 5 mg PO DAILY@0800 RF: 0 multivitamin 1 EACH tablet 1 ea PO DAILY RF: 0 cyanocobalamin (vitamin B-12) 1,000 MCG tablet 1,000 mcg PO DAILY RF: 0 ascorbic acid (vitamin C) 500 MG tablet 500 mg PO DAILY RF: 0 atenolol 50 MG tablet 50 mg PO BID RF: 0 cholecalciferol (vitamin D3) 1,000 UNIT capsule 1,000 unit PO DAILY RF: 0 omega-3 fatty acids-fish oil 1 EACH capsule,delayed release(DR/EC) 1 cap PO TID RF: 0 aspirin 81 MG tablet,chewable 81 mg PO DAILY RF: 0 lisinopril 20 MG tablet 20 mg PO DAILY RF: 0 magnesium oxide 400 MG tablet 400 mg PO DAILY RF: 0 furosemide 20 MG tablet 20 mg PO DAILY RF: 0 amlodipine 10 MG tablet 10 mg PO DAILY RF: 0 linezolid [Zyvox] 600 mg tablet 600 mg PO BID Qty: 28 RF: 0 Primary Care Provider: Kelsy Mensah Referrals: Kelsy Mensah MD [Primary Care Provider] - Disposition Disposition: Acute Care [facility]
[2020-11-01 16:30] LABS: Absolute Lymphocyte Count 2.44 X10^3/uL (0.83-4.51); Absolute Neutrophil Count 13.6 X10^3/uL (2.0-7.7); Basophil# 0.07 X10^3/uL; Basophil% 0.4 % (0-1); Eosinophil# 0.15 X10^3/uL; Eosinophils% 0.8 % (0-5); Hematocrit 37.4 % (37-47); Hemoglobin 12.4 g/dL (12.0-15.0); Lymphocyte # 2.44 X10^3/ul (0.83-4.51); Lymphocyte % 13.6 % (19-41); Mean Corp Hgb Conc 33.2 g/dL (32-36); Mean Corpuscular Hgb 29.9 pg (27.0-32.0); Mean Corpuscular Volume 90.1 fL (81-99); Mean Platelet Vol. 10.1 fl (6.2-12.0); Monocyte# 1.65 X10^3/uL; Monocyte% 9.2 % (0-10); NRBC Flagged by Analyzer 0 % (0-5); Neutrophil # 13.57 X10^3/uL (2.7-7.7); Neutrophil % 75.5 % (47-70); POSITIVE DIFFERENTIAL YES; Platelet Count 347 K/mm3 (150-450); RBC Distribution Width CV 14.2 % (11.6-14.6); RBC Distribution Width SD 45.8 fl (35.1-43.9); Red Blood Count 4.15 M/mm3 (4.2-5.4)
[2020-11-01] MEDS: 0.9% Normal Saline 1,000 ML 250 ML IV (16:35)
[2020-11-01 16:43] LABS: International Normalized Ratio 1.1; Partial Thromboplast Time 49.8 Seconds (24.1-36.2); Prothrombin Time (Protime)PT. 13.8 SECONDS (11.7-14.9)
[2020-11-01 16:51] LABS: Differential Indicated SCAN CRITERIA MET
[2020-11-01 16:52] LABS: Platelet Estimate ADEQUATE (ADEQ); Red Cell Morphology NORM C+C NORMAL (NORM C&C)
[2020-11-01 16:53] LABS: ALB/GLOB Ratio 0.6 RATIO (0.9-2.4); AST(SGOT) 26 U/L (15-37); Alanine Aminotransfer ALT/SGPT 31 U/L (13-56); Albumin, Serum 3.3 g/dL (3.2-5.0); Alkaline Phosphatase 92 U/L (45-117); Anion Gap 7 (5-15); BUN 49 mg/dL (7-18); BUN/Creat Ratio 29.3 RATIO (10-20); Calcium,Total 9.8 mg/dL (8.5-10.1); Chloride 103 mmol/L (98-107); Creatinine, Serum 1.67 mg/dL (0.55-1.02); EST Glomerular Filtration Rate 31 mL/min (>60); Est Glom Filt Rate - Afr Amer 38 mL/min (>60); Estimated Creatinine Clearance 23.59 ml/min; Globulin 5.5 g/dL (2.2-4.2); Glucose 156 mg/dL (74-106); Potassium 4.4 mmol/L (3.5-5.1); Protein, Total 8.8 g/dL (6.4-8.2); Sodium Level 137 mmol/L (136-145)
[2020-11-01 16:59] LABS: Lactic Acid 3.1 mmol/L (0.4-1.9)
--- NOTE | 2020-11-01 17:00 | RAD_ITS ---
STUDY: X-RAY - RIGHT FOOT CLINICAL: Female, 79 years old. Injury/Pain TECHNIQUE: 3 view(s) of the foot. COMPARISON: 09/29/2020 FINDINGS: No definite change. 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 Complete loss of plantar arch. 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 Diffusely heterogeneous density throughout the bones. This makes it very difficult to exclude osteolytic lesions. In particular, possible osteolysis involving the distal phalanx first toe. Osteomyelitis is not excluded. RAD/Foot min 3 Views IMPRESSION: Cannot exclude osteomyelitis especially of the first distal phalanx. Stable severe neuropathic joint changes. Electronically Signed: Demian Shrestha MD at 17:21 EDT , Service support ,
--- NOTE | 2020-11-01 17:25 | HP.PCM_ITS ---
Documented by User: KARUNA Omalley 11/01/20 17:52 HPI - General General Date of Admission: 11/01/20 Date of Service: 11/01/20 Chief Complaint: Foot wound HPI Narrative DARREN SANDOVAL, is a 79 F who presents from the wound center for a nonhealing wound with failed outpatient antibiotic therapy. Patient states that she was admitted last month for a diabetic foot infection and discharged home on oral anti biotics. She has been following at the wound center since then and Dr. Chao was concerned that there was no improvement in her wound. Patient is noted to have 2 wounds to her right foot including the right great toe as well of the lateral aspect of the right ankle. Patient denies fever, chills, shortness of breath, chest pain, nausea, vomiting. Patient reports night sweats. [facility] Medical History Arthritis Breast lump in female Cataracts, bilateral Diabetes Diverticulosis Gallstones Heart failure High blood pressure Kidney stones Non-smoker Osteoarthritis Ulcer of right foot with necrosis of bone Home Medications glyburide 5 mg PO DAILY@0800 08/26/15 [History Last Taken 11/01/20] metformin 500 mg PO TIDCM 08/26/15 [History Last Taken 11/01/20] ascorbic acid (vitamin C) 500 mg PO DAILY@1200 12/09/16 [History Last Taken 10/22 04/13] atenolol 50 mg PO BID 12/09/16 [History Last Taken 11/01/20] cholecalciferol (vitamin D3) 1,000 unit PO DAILY@1200 12/09/16 [History Last Taken 11/01/20] cyanocobalamin (vitamin B-12) 1,000 mcg PO DAILY@1200 12/09/16 [History Last Taken 11/01/20] multivitamin 1 ea PO DAILY@1200 12/09/16 [History Last Taken 11/01/20] omega-3 fatty acids-fish oil 1 cap PO BID 12/09/16 [History Last Taken 11/01/20] aspirin 81 mg PO DAILY 06/11/17 [History Last Taken 11/01/20] lisinopril 20 mg PO DAILY 12/05/17 [History Last Taken 11/01/20] magnesium oxide 400 mg PO DAILY@1200 03/01/20 [History Last Taken 11/01/20] furosemide 20 mg PO DAILY 03/02/20 [History Last Taken 10/31/20] amlodipine 10 mg PO DAILY 09/29/20 [History Last Taken 11/01/20] linezolid [Zyvox] 600 mg PO BID 11/01/20 [History Last Taken 11/01/20] Allergy/AdvReac Type Severity Reaction Status Date / Time adhesive Allergy Unknown Verified 11/01/20 15:39 atorvastatin calcium Allergy Unknown Verified 11/01/20 15:39 [From Lipitor] bacitracin Allergy Unknown Verified 11/01/20 15:39 [From Neosporin ([id number])] bacitracin zinc Allergy Unknown Verified 11/01/20 15:39 [From Neosporin ([id number])] fenofibrate nanocrystallized Allergy Unknown Verified 11/01/20 15:39 [From Tricor] fenofibrate,micronized Allergy Unknown Verified 11/01/20 15:39 [From Tricor] flurbiprofen Allergy Unknown Verified 11/01/20 15:39 gemfibrozil Allergy Unknown Verified 11/01/20 15:39 glipizide [From Glucotrol] Allergy Unknown Verified 11/01/20 15:39 metronidazole Allergy ALLERGY Verified 11/01/20 15:39 neomycin sulfate Allergy Unknown Verified 11/01/20 15:39 [From Neosporin ([id number])] polymyxin B Allergy Unknown Verified 11/01/20 15:39 [From Neosporin ([id number]-huu-imcni)] prednisolone acetate, Allergy ALLERGY Verified 11/01/20 15:39 micronized simvastatin Allergy ALLERGY Verified 11/01/20 15:39 tramadol [From Ultram] Allergy ALLERGY Verified 11/01/20 15:39 amoxicillin [From Augmentin] AdvReac Nausea/Vom/ Verified 11/01/20 15:39 Diarrhea clavulanic acid AdvReac Nausea/Vom/ Verified 11/01/20 15:39 [From Augmentin] Diarrhea pravastatin AdvReac Other Verified 11/01/20 15:39 Family History Mother Diabetes Father Hypertension CVA (cerebral vascular accident) Brother Lung cancer Sister Breast cancer COPD (chronic obstructive pulmonary disease) Surgical History History of cholecystectomy History of heart bypass surgery History of knee replacement Social History household members: family housing: house Smoking Status: Never smoker alcohol intake: current alcohol intake frequency: other substance use type: does not use additional social history: USES ASPIRIN ROS Constitutional Constitutional: Reports fever(s) and night sweats; Denies anorexia, chills or weakness Cardiovascular Cardiovascular: Denies chest pain, edema or palpitations Respiratory/Chest Respiratory/Chest: Denies cough, shortness of breath at rest or shortness of breath with exertion Gastrointestinal Gastrointestinal: Denies abdominal pain, constipation, diarrhea, nausea or vomiting Genitourinary Genitourinary: Denies dysuria Musculoskeletal Musculoskeletal: Reports extremity pain; Denies back pain, joint pain, joint stiffness or joint swelling Integumentary Integumentary: Reports wounds Neurologic Neurologic: Denies abnormal gait, abnormal speech, confusion, dizziness or focal weakness Psychiatric Psychiatric: Denies anxiety or depression Endocrine Endocrinology: Reports polydipsia and polyuria; Denies change in body appearance Hematologic/Lymphatic Hematologic/Lymphatic: Denies easy bleeding or easy bruising Vital Signs Vital Signs Vital Signs: 11/01/20 15:37 11/01/20 16:18 Temperature 98.2 F Temperature Source Oral Pulse Rate 64 68 Respiratory Rate 16 22 H Blood Pressure 135/109 H 159/61 H Blood Pressure Mean 117 93 Pulse Ox 98 97 Oxygen Delivery Method Room Air Room Air Weight Weight: 147 lb Body Mass Index (BMI) 25.2 Physical Exam Const alert, oriented x3 and no apparent distress General Appearance: cooperative HEENT normocephalic and head/scalp atraumatic Eyes conjunctivae normal and no scleral icterus Neck supple and no JVD General: trachea midline Resp normal respiratory effort, normal air movement and clear to auscultation bilaterally Cardio regular rate, regular rhythm, S1 normal heart sound and S2 normal heart sound GI normal to inspection, nondistended, normoactive bowel sounds, soft to palpation and non-tender Extremity normal capillary refill and no clubbing, cyanosis or edema Right Lower Extremity: foot and digits Positive for inspection (Wounds noted to right great toe and lateral aspect of the right ankle) and neurovascular exam (Patient has decreased sensation to touch) Skin Wounds: wounds noted size, drainage purulent, margins surrounding erythema, open and surrounding erythema Neuro no focal motor deficits and no sensory deficits noted Speech: speech normal Motor Exam: Negative for general weakness Psych thought process normal, cooperative and affect normal Appearance: appropriate Results Lab / Micro Data Result Diagrams: 11/01/20 16:15 11/01/20 16:15 Labs: Laboratory Results - last 24 hr 11/01/20 16:15: WBC 18.0 H, RBC 4.15 L, Hgb 12.4, Hct 37.4, MCV 90.1, MCH 29.9, MCHC 33.2, RDW Std Deviation 45.8 H, RDW Coeff of Monique 14.2, Plt Count 347, MPV 10.1, Immature Gran % (Auto) 0.500, Neut % (Auto) 75.5 H, Lymph % (Auto) 13.6 L, Swain % (Auto) 9.2, Eos % (Auto) 0.8, Baso % (Auto) 0.4, Absolute Neuts (auto) 13.6 H, Absolute Lymphs (auto) 2.44, Nucleated RBC % 0, Differential Comment , Diff Path Review May foll, Platelet Estimate ADEQUATE, RBC Morphology NORM C+C 11/01/20 16:15: PT 13.8, INR 1.1, APTT 49.8 H 11/01/20 16:15: Sodium 137, Potassium 4.4, Chloride 103, Carbon Dioxide 27.0, Anion Gap 7, BUN 49 H, Creatinine 1.67 H, Estim Creat Clear Calc 23.59, Est GFR (MDRD) Af Amer 38 L, Est GFR (MDRD) Non-Af 31 L, BUN/Creatinine Ratio 29.3 H, Glucose 156 H, Calcium 9.8, Total Bilirubin 0.70, AST 26, ALT 31, Alkaline Phosphatase 92, Total Protein 8.8 H, Albumin 3.3, Globulin 5.5 H, Albumin/Globulin Ratio 0.6 L 11/01/20 16:15: Lactic Acid 3.1 H* Radiology Impression Foot X-Ray 11/01/20 17:00 IMPRESSION: Cannot exclude osteomyelitis especially of the first distal phalanx. Stable severe neuropathic joint changes. Electronically Signed: Demian Shrestha MD at 17:21 EDT , Service support , Assessment & Plan Assessment/Plan (1) Severe sepsis with acute organ dysfunction: (2) Osteomyelitis of great toe of right foot: PLAN: 1. Osteomyelitis of the great toe of right foot -Admit to PCU for cardiac monitoring -Continue IV vancomycin and Zosyn, first dose given in ER. Patient has been receiving p.o. linezolid with no improvement to wound. -Repeat wound cultures and MRSA wound -Obtain hemoglobin A1c, sed rate, CRP, magnesium. -CBC and CMP ordered daily -Consult infectious disease -Consult podiatry, patient follows with Dr. Chao, Dr. Bernal covering, ER physician discussed case with Dr. Bernal. -Consult wound nurse -Consult dietitian for education and support, patient uncontrolled diabetic -Will keep patient n.p.o. after midnight for possible surgical intervention -Elevate right lower extremity -PT and OT to eval and treat 2. Severe sepsis with acute organ dysfunction -Secondary to #1 -At baseline patient has chronic kidney disease stage IIIa. current BUN 49, creatinine 1.67, GFR 38. -CMP ordered daily, trend 3. Diabetes mellitus type 2 -Patient is not well controlled at home, history of multiple foot wounds. -AC at bedtime blood sugars with sliding scale insulin ordered -Due to acute kidney injury will hold Metformin and glyburide at this time 4. Hypertension -Continue home medication regimen including Norvasc, atenolol, furosemide, lisinopril. -As needed hydralazine ordered DVT prophylaxis-SCDs This patient was seen by KARUNA Omalley under the supervision of Dr. Blanchard. Documented by User: Dr. Alondra Blanchard MD 11/01/20 17:53 HPI - General General Date of Admission: 11/01/20 [facility] Medical History Arthritis Breast lump in female Cataracts, bilateral Diabetes Diverticulosis Gallstones Heart failure High blood pressure Kidney stones Non-smoker Osteoarthritis Ulcer of right foot with necrosis of bone Home Medications glyburide 5 mg PO DAILY@0800 08/26/15 [History Last Taken 11/01/20] metformin 500 mg PO TIDCM 08/26/15 [History Last Taken 11/01/20] ascorbic acid (vitamin C) 500 mg PO DAILY@1200 12/09/16 [History Last Taken 11/01/20] atenolol 50 mg PO BID 12/09/16 [History Last Taken 11/01/20] cholecalciferol (vitamin D3) 1,000 unit PO DAILY@1200 12/09/16 [History Last Taken 11/01/20] cyanocobalamin (vitamin B-12) 1,000 mcg PO DAILY@1200 12/09/16 [History Last Taken 11/01/20] multivitamin 1 ea PO DAILY@1200 12/09/16 [History Last Taken 11/01/20] omega-3 fatty acids-fish oil 1 cap PO BID 12/09/16 [History Last Taken 11/01/20] aspirin 81 mg PO DAILY 06/11/17 [History Last Taken 11/01/20] lisinopril 20 mg PO DAILY 12/05/17 [History Last Taken 11/01/20] magnesium oxide 400 mg PO DAILY@1200 03/01/20 [History Last Taken 11/01/20] furosemide 20 mg PO DAILY 03/02/20 [History Last Taken 10/31/20] amlodipine 10 mg PO DAILY 09/29/20 [History Last Taken 11/01/20] linezolid [Zyvox] 600 mg PO BID 11/01/20 [History Last Taken 11/01/20] Allergy/AdvReac Type Severity Reaction Status Date / Time adhesive Allergy Unknown Verified 11/01/20 15:39 atorvastatin calcium Allergy Unknown Verified 11/01/20 15:39 [From Lipitor] bacitracin Allergy Unknown Verified 11/01/20 15:39 [From Neosporin ([id number])] bacitracin zinc Allergy Unknown Verified 11/01/20 15:39 [From Neosporin ([id number]-jpy-[id number])] fenofibrate nanocrystallized Allergy Unknown Verified 11/01/20 15:39 [From Tricor] fenofibrate,micronized Allergy Unknown Verified 11/01/20 15:39 [From Tricor] flurbiprofen Allergy Unknown Verified 11/01/20 15:39 gemfibrozil Allergy Unknown Verified 11/01/20 15:39 glipizide [From Glucotrol] Allergy Unknown Verified 11/01/20 15:39 metronidazole Allergy ALLERGY Verified 11/01/20 15:39 neomycin sulfate Allergy Unknown Verified 11/01/20 15:39 [From Neosporin ([id number])] polymyxin B Allergy Unknown Verified 11/01/20 15:39 [From Neosporin ([id number])] prednisolone acetate, Allergy ALLERGY Verified 11/01/20 15:39 micronized simvastatin Allergy ALLERGY Verified 11/01/20 15:39 tramadol [From Ultram] Allergy ALLERGY Verified 11/01/20 15:39 amoxicillin [From Augmentin] AdvReac Nausea/Vom/ Verified 11/01/20 15:39 Diarrhea clavulanic acid AdvReac Nausea/Vom/ Verified 11/01/20 15:39 [From Augmentin] Diarrhea pravastatin AdvReac Other Verified 11/01/20 15:39 Family History Mother Diabetes Father Hypertension CVA (cerebral vascular accident) Brother Lung cancer Sister Breast cancer COPD (chronic obstructive pulmonary disease) Surgical History History of cholecystectomy History of heart bypass surgery History of knee replacement Social History household members: family housing: house Smoking Status: Never smoker alcohol intake: current alcohol intake frequency: other substance use type: does not use additional social history: USES ASPIRIN Results Lab / Micro Data Result Diagrams: 11/01/20 16:15 11/01/20 16:15
[2020-11-01 17:37] LABS: Erythrocyte Sedimentation Rate 68 mm/hr (0-30)
[2020-11-01 17:42] LABS: Magnesium 2.5 mg/dL (1.6-2.6)
[2020-11-01 18:10] LABS: Hemoglobin A1c 6.1 % (3.8-5.6)
[2020-11-01 19:04] LABS: M R Staph aureus DNA By PCR POSITIVE (Negative); Probe Check PASS; Staph aureus DNA By PCR POSITIVE (Negative)
--- NOTE | 2020-11-01 19:05 | PCM.RX.CS ---
Consult Pharmacy has been consulted to manage selected antiobiotic: Vancomycin Type of Consult: New start Suspected Infection: Skin/Soft tissue Labs: Sodium 137 mmol/L (136-145) 11/01/20 16:15 Potassium 4.4 mmol/L (3.5-5.1) 11/01/20 16:15 Chloride 103 mmol/L (98-107) 11/01/20 16:15 Carbon Dioxide 27.0 mmol/L (21.0-32.0) 11/01/20 16:15 Anion Gap 7 (5-15) 11/01/20 16:15 BUN 49 mg/dL (7-18) H 11/01/20 16:15 Creatinine 1.67 mg/dL (0.55-1.02) H 11/01/20 16:15 Est GFR (MDRD) Af Amer 38 mL/min (>60) L 11/01/20 16:15 Est GFR (MDRD) Non-Af 31 mL/min (>60) L 11/01/20 16:15 BUN/Creatinine Ratio 29.3 RATIO (10-20) H 11/01/20 16:15 Glucose 156 mg/dL (74-106) H 11/01/20 16:15 Goal Trough: 15-20 mcg/mL Pharmacy Plan for Drug Dosing: NEW START IV VANCOMYCIN Consulting Physician: Dr. Blanchard Indication: Diabetic foot infection Goal Trough: 15-20 SrCr: 1.67 CrCl: 24 mL/min Comments: 1750mg IV x1 loading dose ordered and administered in ED 11/01/20 @1731 Vancomcyin Dose: 500mg IV Q24hr to start 11/02/20 @1700 Pending Level: 11/03/20 @1630, prior to 3rd total dose per protocol Pharmacy Service will continue to monitor and adjust dosing as required.
[2020-11-01 20:18] LABS: Bacteria 0 SEEN /hpf (None Seen); Mucous, Urine 0 SEEN /hpf (<or=2+); Red Blood Cells-Urine 0 SEEN /hpf (0-5)
[2020-11-01 20:20] LABS: Color, Urine Yellow (Yellow); Glucose, Dipstick Normal (Normal); Ketone-Dipstick Negative (Negative); Leukocyte Esterase-Dipstick 100 /ul (Negative); Nitrite-Dipstick Negative (Negative); Occult Blood-Urine Negative /ul (Negative); Protein-Dipstick 15 mg/dl (Negative); Urine Bilirubin Dipstick Negative (Negative); Urine Clarity Clear (Clear); Urine Urobilinogen Normal (Normal); Urine pH 6.5 (5.0 - 8.0)
[2020-11-01 20:25] LABS: White Blood Cells 0-5 SEEN /hpf (0-5)
[2020-11-01 20:26] LABS: Squamous Epithelial Cells - UA 0-5 SEEN /hpf (5-10)
[2020-11-01 20:26] LABS: Reflex Lactate? Y
--- NOTE | 2020-11-01 20:41 | PCM.CONS.GEN ---
Assessment & Plan Assessment/Plan (1) Severe sepsis with acute organ dysfunction: (2) Osteomyelitis of great toe of right foot: (3) Cellulitis of foot, right: (4) Delayed wound healing: (5) Unspecified protein-calorie malnutrition: QUALIFIERS: Protein-calorie malnutrition severity: unspecified severity Qualified Code(s): E46 - Unspecified protein-calorie malnutrition (6) Type 2 diabetes mellitus with diabetic polyneuropathy: QUALIFIERS: Diabetes mellitus usp insulin use: unspecified superintendent container terminal insulin use status Qualified Code(s): E11.42 - Type 2 diabetes mellitus with diabetic polyneuropathy (7) Peripheral arterial disease: (8) CKD (chronic kidney disease): (9) Ulcer of right lower extremity with muscle involvement without evidence of necrosis: PLAN: I reviewed and discussed her case today. She was seen in the outpatient setting late this afternoon by infectious disease specialist who recommended hospital admission. I also saw the patient at this time. It appears she has progressive worsening with a right foot infection and sepsis. The following work up and care recommendations were made: Infection: She has systemic and local infection. She has failed outpatient oral antibiotic management with linezolid. She has elevated white blood cell count of 18, ESR 68, C-reactive protein 131, lactic acid 3.1. She demonstrates sepsis. Additional labs were ordered. MRSA PCR was positive. Blood cultures pending. Additional wound aerobic and anaerobic culture results are pending. She was started on fluids and broad-spectrum IV antibiotics (vancomycin and Zosyn). Infectious disease on consultation greatly appreciated. Her hallux no longer appear salvageable and there appears to be proximal infection to the medial forefoot this is secondary to infection and also cyanosis related to her vascular disease. She has failed antibiotics in the outpatient setting and now has a nonsalvageable hallux at best. I recommend hallux amputation with additional incision and drainage pending intraoperative findings. She is n.p.o. at this time and will be added on pending operating room availability within the next day. Okay to continue aspirin. Imaging: Foot x-rays were reviewed (3 views) without soft tissue emphysema, foreign body, hallux charcot evidence or tony osseous destruction. There is some rare fraction irregular trabecular pattern to the tuft of the distal phalanx I am suspecting osteomyelitis chronicity of ulcer and ongoing exposed bone and anterior adjacent tissue. Vessel calcifications are also noted She is at risk for limb loss and further systemic deterioration due to this condition. She will be scheduled for operating room intervention. Preoperative indications, planned procedure, benefits, risk, anticipated healing time and management were reviewed. The patient understands and elects proceed with surgery at this time. No guarantees were made. The patient understands risk and complications include but are not limited to following: pain, swelling, scarring, need for further surgery, tendon contracture, transfer lesion, hardware failure, arthritis, need for further surgery, delayed or nonhealing, infection, blood clot, allergic reaction, loss of limb, function, or life. The informed surgical limb and consent will need to be signed. I answered all the patient's questions. Dressing: Betadine wet-to-dry gauze Wash: Soap and water Offload: Continue surgical shoe Vascular: Recent abdominal pelvic arteriogram with recent intervention with Dr. Wilson this past 10/05/2020. Edema: Continue Colten wrap application and periodic leg Pain: Controlled secondary to neuropathy Host factors: She is uncontrolled diabetes with neuropathy (A1c that was last checked was actually 6.1%), chronic kidney disease and other comorbidities that are contributing to her delayed healing. Medical management per hospitalist services greatly appreciated and noted. I also recommend nutritional supplementation optimize healing and this is been ordered. I answered all the patient's questions. I will follow her closely while in house. Thank you for the consultation. Please do not hesitate to call if you have any questions. Moriah Bernal DPM, [facility] [phone] HPI Consult Data Date of Consult: 11/01/20 HPI Narrative HPI Narrative: DARREN SANDOVAL, is a 79 F with multiple comorbidities who was admitted earlier this evening for sepsis and infected nonhealing right hallux ulcer. It is noted she also has a lateral ankle ulcer. She has been followed at the wound healing center mainly with Dr. Chao. She had recent notable vascular intervention. She has had some redness to the toes that have progressed over the past day and a half and when seen by infectious disease specialist in the clinical setting this afternoon, she was advised to report to the hospital for admission. This patient denies pain. She actually denies fever, chill, nausea, vomiting. She is fatigued. The redness location and intensity has progressed since Friday. She denies odor. She was seen with her family member present late this afternoon. [facility] Medical History Arthritis Breast lump in female Cataracts, bilateral Diabetes Diverticulosis Gallstones Heart failure High blood pressure Kidney stones Non-smoker Osteoarthritis Ulcer of right foot with necrosis of bone Home Medications glyburide 5 mg PO DAILY@0800 08/26/15 [History Last Taken 11/01/20] metformin 500 mg PO TIDCM 08/26/15 [History Last Taken 11/01/20] ascorbic acid (vitamin C) 500 mg PO DAILY@1200 12/09/16 [History Last Taken 11/01/20] atenolol 50 mg PO BID 12/09/16 [History Last Taken 11/01/20] cholecalciferol (vitamin D3) 1,000 unit PO DAILY@1200 12/09/16 [History Last Taken 11/01/20] cyanocobalamin (vitamin B-12) 1,000 mcg PO DAILY@1200 12/09/16 [History Last Taken 11/01/20] multivitamin 1 ea PO DAILY@1200 12/09/16 [History Last Taken 11/01/20] omega-3 fatty acids-fish oil 1 cap PO BID 12/09/16 [History Last Taken 11/01/20] aspirin 81 mg PO DAILY 06/11/17 [History Last Taken 11/01/20] lisinopril 20 mg PO DAILY 12/05/17 [History Last Taken 11/01/20] magnesium oxide 400 mg PO DAILY@1200 03/01/20 [History Last Taken 11/01/20] furosemide 20 mg PO DAILY 03/02/20 [History Last Taken 10/31/20] amlodipine 10 mg PO DAILY 09/29/20 [History Last Taken 11/01/20] linezolid [Zyvox] 600 mg PO BID 11/01/20 [History Last Taken 11/01/20] Allergy/AdvReac Type Severity Reaction Status Date / Time adhesive Allergy Unknown Verified 11/01/20 15:39 atorvastatin calcium Allergy Unknown Verified 11/01/20 15:39 [From Lipitor] bacitracin Allergy Unknown Verified 11/01/20 15:39 [From Neosporin ([id number])] bacitracin zinc Allergy Unknown Verified 11/01/20 15:39 [From Neosporin ([id number])] fenofibrate nanocrystallized Allergy Unknown Verified 11/01/20 15:39 [From Tricor] fenofibrate,micronized Allergy Unknown Verified 11/01/20 15:39 [From Tricor] flurbiprofen Allergy Unknown Verified 11/01/20 15:39 gemfibrozil Allergy Unknown Verified 11/01/20 15:39 glipizide [From Glucotrol] Allergy Unknown Verified 11/01/20 15:39 metronidazole Allergy ALLERGY Verified 11/01/20 15:39 neomycin sulfate Allergy Unknown Verified 11/01/20 15:39 [From Neosporin ([id number])] polymyxin B Allergy Unknown Verified 11/01/20 15:39 [From Neosporin ([id number])] prednisolone acetate, Allergy ALLERGY Verified 11/01/20 15:39 micronized simvastatin Allergy ALLERGY Verified 11/01/20 15:39 tramadol [From Ultram] Allergy ALLERGY Verified 11/01/20 15:39 amoxicillin [From Augmentin] AdvReac Nausea/Vom/ Verified 11/01/20 15:39 Diarrhea clavulanic acid AdvReac Nausea/Vom/ Verified 11/01/20 15:39 [From Augmentin] Diarrhea pravastatin AdvReac Other Verified 11/01/20 15:39 Family History Mother Diabetes Father Hypertension CVA (cerebral vascular accident) Brother Lung cancer Sister Breast cancer COPD (chronic obstructive pulmonary disease) Surgical History History of cholecystectomy History of heart bypass surgery History of knee replacement Social History household members: family housing: house Smoking Status: Never smoker alcohol intake: current alcohol intake frequency: other substance use type: does not use additional social history: USES ASPIRIN ROS Constitutional Constitutional: Reports fever(s), night sweats and weight loss; Denies anorexia, chills or weakness ENT HEENT: Denies sore throat Cardiovascular Cardiovascular: Denies chest pain, edema, orthopnea or palpitations Respiratory/Chest Respiratory/Chest: Denies cough, dyspnea or shortness of breath at rest Gastrointestinal Gastrointestinal: Denies abdominal pain, diarrhea, nausea or vomiting Genitourinary Genitourinary: Denies dysuria Musculoskeletal Musculoskeletal: Reports arthralgias, extremity pain and myalgias; Denies back pain, joint pain, joint stiffness, joint swelling or neck pain Integumentary Integumentary: Reports wounds Neurologic Neurologic: Reports abnormal gait and paresthesias Psychiatric Psychiatric: Denies anxiety or depression Endocrine Endocrinology: Reports polydipsia and polyuria; Denies polyphagia Hematologic/Lymphatic Hematologic/Lymphatic: Denies easy bleeding or easy bruising Allergic/Immunologic Allergic/Immunologic: Denies urticaria Physical Exam Const alert and oriented x3 General Appearance: cooperative HEENT normocephalic Extremity Extremity Narrative: No calf tenderness Diminished pulses Muscle wasting noted lower extremity edema noted negative navas and everton sign right General Extremity: edema and no tenderness to palpation of joints or extremities; Negative for cyanosis Skin Skin Narrative: Her skin is very hairless and atrophic. There is skin discontinuity to the distal hallux with exposed bone and intense erythema to the dorsal hallux extending onto the medial forefoot. There is no bogginess or fluctuance on palpation. The hallux also has a cyanotic appearance and is cool to touch compared to the other toes which have capillary refill time of between 3 and 4 seconds. This hallux does not appear salvageable there is concern of proximal fracture and progression. There is no interdigital maceration or other foot ulcers. Lateral ankle ulcer noted. General Skin Exam: Negative for erythema Neuro Neuro Narrative: lack of normal epicritic sensation via light touch is consistent with neuropathy status Psych cooperative and affect normal Lab / Micro Data Result Diagrams: 11/01/20 16:15 11/01/20 16:15 Labs: Laboratory Results - last 24 hr 11/01/20 16:15: WBC 18.0 H, RBC 4.15 L, Hgb 12.4, Hct 37.4, MCV 90.1, MCH 29.9, MCHC 33.2, RDW Std Deviation 45.8 H, RDW Coeff of Monique 14.2, Plt Count 347, MPV 10.1, Immature Gran % (Auto) 0.500, Neut % (Auto) 75.5 H, Lymph % (Auto) 13.6 L, [place] % (Auto) 9.2, Eos % (Auto) 0.8, Baso % (Auto) 0.4, Absolute Neuts (auto) 13.6 H, Absolute Lymphs (auto) 2.44, Nucleated RBC % 0, Differential Comment , Diff Path Review July, Platelet Estimate ADEQUATE, RBC Morphology NORM C+C 11/01/20 16:15: PT 13.8, INR 1.1, APTT 49.8 H 11/01/20 16:15: Sodium 137, Potassium 4.4, Chloride 103, Carbon Dioxide 27.0, Anion Gap 7, BUN 49 H, Creatinine 1.67 H, Estim Creat Clear Calc 23.59, Est GFR (MDRD) Af Amer 38 L, Est GFR (MDRD) Non-Af 31 L, BUN/Creatinine Ratio 29.3 H, Glucose 156 H, Calcium 9.8, Total Bilirubin 0.70, AST 26, ALT 31, Alkaline Phosphatase 92, Total Protein 8.8 H, Albumin 3.3, Globulin 5.5 H, Albumin/Globulin Ratio 0.6 L 11/01/20 16:15: Lactic Acid 3.1 H* 11/01/20 16:18: ESR 68 H 11/01/20 16:18: Magnesium 2.5, C-React Prot Ext Range 131.00 H 11/01/20 16:18: Hemoglobin A1c 6.1 H 11/01/20 17:35: S.aureus Protein A PCR POSITIVE H, MRSA (PCR) POSITIVE H 11/01/20 20:10: Urine Color Yellow, Urine Clarity Clear, Urine pH 6.5, Ur Specific [place] 1.010, Urine Protein 15 H, Urine Glucose (UA) Normal, Urine Ketones Negative, Urine Occult Blood Negative, Urine Nitrite Negative, Urine Bilirubin Negative, Urine Urobilinogen Normal, Ur Leukocyte Esterase 100 H, Urine RBC 0 SEEN, Urine WBC 0-5 SEEN, Ur Squamous Epith Cells 0-5 SEEN, Urine Bacteria 0 SEEN, Urine Mucus 0 SEEN Radiology Impression Foot X-Ray 11/01/20 17:00 IMPRESSION: Cannot exclude osteomyelitis especially of the first distal phalanx. Stable severe neuropathic joint changes. Electronically Signed: Demian Shrestha MD at 17:21 EDT , Service support ,
[2020-11-01] MEDS: Atenolol 50 MG Tablet PO (20:50)
[2020-11-01] MEDS: Acetaminophen 325 MG Tablet 650 MG PO (21:59)
[2020-11-01] MEDS: Insulin Lispro 100 UNIT/ML INSULN.PEN SC (22:00)
[2020-11-01] MEDS: Temazepam 15 MG Capsule PO (22:00)
[2020-11-01] MEDS: Ondansetron 4 MG/2 ML Vial IV (22:13)
--- NOTE | 2020-11-01 22:13 | NURSING ---
pt nauseated, zofran given
[2020-11-01 22:26] LABS: Lactic Acid 3.2 mmol/L (0.4-1.9)
[2020-11-01 22:41] LABS: Bedside Glucose 266 mg/dL (70-110)
--- NOTE | 2020-11-01 22:54 | NURSING ---
lactic 3.2, cyrus coin machine supervisor notified, cxr ordered
--- NOTE | 2020-11-01 22:56 | RAD_ITS ---
STUDY: X-RAY CHEST REASON FOR EXAM: Female, 79 years old. SOB TECHNIQUE: Single AP portable view of the chest. COMPARISON: 03/04/2020 FINDINGS: Normal lung volumes. Possible minimal pulmonary opacities in the mid and lower lung elder bilaterally, especially on the left. Findings are nonspecific and represent areas of multifocal infiltrate. CT scan recommended. No definite effusions. There is no demonstrated pleural abnormality. Normal size heart. Previous CABG. Normal mediastinum and pavel. Normal visualized pulmonary arteries. Normal visualized aortic arch and descending thoracic aorta. Normal visualized thoracic spine. Normal visualized ribs, clavicles, and shoulders. There is no demonstrated abnormality of the visualized soft tissue structures of the upper abdomen. RAD/Chest 1 View (Portable) IMPRESSION: Cannot exclude minimal pulmonary opacities especially on the left which could represent multifocal infiltrates. If clinically indicated, repeat scan recommended. Electronically Signed: Demian Shrestha MD at 23:52 EDT , Service support ,
[2020-11-02] VITALS (23 sets, daily range): BP systolic 125–175; BP diastolic 48–88; PULSE 59–83; RESP 16–84; TEMP 36.5–37.7; O2SAT 88–96; BMI 26.4
[2020-11-02] MEDS: 0.9% Normal Saline 1,000 ML 100 ML IV (04:10)
--- NOTE | 2020-11-02 06:32 | PCM.PROGNOTE ---
Subjective Subjective 79-year-old female with multiple comorbidities was seen bedside for right foot infection including hallux ulcer lateral ankle ulcer. She relates she had fever, chills, and night sweats. She denies nausea or vomiting. She denies pain. She is amendable to proceed with surgical intervention. Objective Data Objective Data Vital Signs: Vital Signs Temp Pulse Resp BP Pulse Ox 98.2 F 61 16 128/50 H 94 11/02/20 04:00 11/02/20 05:00 11/02/20 04:00 11/02/20 04:00 11/02/20 04:00 Oxygen Flow Rate (L/min) 3 Oxygen Delivery Method Nasal Cannula Weight: 69.7 kg Body Mass Index (BMI) 25.8 Intake & Output: Intake and Output for Last 24 Hours 10/31/20 11/01/20 11/02/20 23:59 23:59 23:59 Intake Total 1635 / 1635 50 / 50 Balance 1635 / 1635 50 / 50 Lab / Micro Data Result Diagrams: 11/02/20 07:00 11/02/20 07:00 Labs: Laboratory Results - last 24 hr 11/01/20 16:15: WBC 18.0 H, RBC 4.15 L, Hgb 12.4, Hct 37.4, MCV 90.1, MCH 29.9, MCHC 33.2, RDW Std Deviation 45.8 H, RDW Coeff of Monique 14.2, Plt Count 347, MPV 10.1, Immature Gran % (Auto) 0.500, Neut % (Auto) 75.5 H, Lymph % (Auto) 13.6 L, [place] % (Auto) 9.2, Eos % (Auto) 0.8, Baso % (Auto) 0.4, Absolute Neuts (auto) 13.6 H, Absolute Lymphs (auto) 2.44, Nucleated RBC % 0, Differential Comment , Diff Path Review May foll, Platelet Estimate ADEQUATE, RBC Morphology NORM C+C 11/01/20 16:15: PT 13.8, INR 1.1, APTT 49.8 H 11/01/20 16:15: Sodium 137, Potassium 4.4, Chloride 103, Carbon Dioxide 27.0, Anion Gap 7, BUN 49 H, Creatinine 1.67 H, Estim Creat Clear Calc 23.59, Est GFR (MDRD) Af Amer 38 L, Est GFR (MDRD) Non-Af 31 L, BUN/Creatinine Ratio 29.3 H, Glucose 156 H, Calcium 9.8, Total Bilirubin 0.70, AST 26, ALT 31, Alkaline Phosphatase 92, Total Protein 8.8 H, Albumin 3.3, Globulin 5.5 H, Albumin/Globulin Ratio 0.6 L 11/01/20 16:15: Lactic Acid 3.1 H* 11/01/20 16:18: ESR 68 H 11/01/20 16:18: Magnesium 2.5, C-React Prot Ext Range 131.00 H 11/01/20 16:18: Hemoglobin A1c 6.1 H 11/01/20 17:35: S.aureus Protein A PCR POSITIVE H, MRSA (PCR) POSITIVE H 11/01/20 20:10: Urine Color Yellow, Urine Clarity Clear, Urine pH 6.5, Ur Specific [place] 1.010, Urine Protein 15 H, Urine Glucose (UA) Normal, Urine Ketones Negative, Urine Occult Blood Negative, Urine Nitrite Negative, Urine Bilirubin Negative, Urine Urobilinogen Normal, Ur Leukocyte Esterase 100 H, Urine RBC 0 SEEN, Urine WBC 0-5 SEEN, Ur Squamous Epith Cells 0-5 SEEN, Urine Bacteria 0 SEEN, Urine Mucus 0 SEEN 11/01/20 21:30: Lactic Acid 3.2 H* 11/01/20 21:53: POC Glucose 266 H Radiography Diagnostic Testing: Radiology Impression Foot X-Ray 11/01/20 17:00 IMPRESSION: Cannot exclude osteomyelitis especially of the first distal phalanx. Stable severe neuropathic joint changes. Electronically Signed: Demian Shrestha MD at 17:21 EDT , Service support , Chest X-Ray 11/01/20 22:56 IMPRESSION: Cannot exclude minimal pulmonary opacities especially on the left which could represent multifocal infiltrates. If clinically indicated, repeat scan recommended. Electronically Signed: Demian Shrestha MD at 23:52 EDT , Service support , Physical Exam Const alert and oriented x3 General Appearance: cooperative HEENT normocephalic Extremity Extremity Narrative: No calf tenderness Diminished pulses Muscle wasting noted lower extremity edema noted negative navas and everton sign right Compartments of the right lower extremity remain soft to palpate General Extremity: edema and no tenderness to palpation of joints or extremities; Negative for cyanosis Skin Skin Narrative: Her skin is very hairless and atrophic. There is skin discontinuity to the distal hallux with exposed bone and intense erythema to the dorsal hallux extending onto the medial forefoot. There is no bogginess or fluctuance on palpation. The hallux also has a cyanotic appearance and is cool to touch compared to the other toes which have capillary refill time of between 3 and 4 seconds. This hallux does not appear salvageable there is concern of proximal fracture and progression. There is no interdigital maceration or other foot ulcers. Lateral ankle ulcer noted with granular fibrous tissue. There is no adjacent erythema purulence or eschar noted at this site. No lymphangitic streaking noted either to this limb. General Skin Exam: Negative for erythema Neuro Neuro Narrative: lack of normal epicritic sensation via light touch is consistent with neuropathy status Psych cooperative and affect normal Assessment & Plan Assessment/Plan (1) Severe sepsis with acute organ dysfunction: (2) Osteomyelitis of great toe of right foot: (3) Cellulitis of foot, right: (4) Delayed wound healing: (5) Unspecified protein-calorie malnutrition: QUALIFIERS: Protein-calorie malnutrition severity: unspecified severity Qualified Code(s): E46 - Unspecified protein-calorie malnutrition (6) Type 2 diabetes mellitus with diabetic polyneuropathy: QUALIFIERS: Diabetes mellitus parts counterman insulin use: unspecified parts counterman insulin use status Qualified Code(s): E11.42 - Type 2 diabetes mellitus with diabetic polyneuropathy (7) Peripheral arterial disease: (8) CKD (chronic kidney disease): (9) Ulcer of right lower extremity with muscle involvement without evidence of necrosis: PLAN: I reviewed and discussed her case this morning. The following work up and care recommendations were made: Infection: She has systemic and local infection. She has failed outpatient oral antibiotic management with linezolid. She has elevated white blood cell count of 18, ESR 68, C-reactive protein 131, lactic acid 3.1. She demonstrates sepsis. Updated morning labs are pending. MRSA PCR was positive. Blood cultures pending. Additional wound aerobic and anaerobic culture results are pending. She was started on fluids and broad-spectrum IV antibiotics (vancomycin and Zosyn). Infectious disease on consultation greatly appreciated. Her hallux no longer appears salvageable and there appears to be proximal infection to the medial forefoot this is secondary to infection and also cyanosis related to her vascular disease. She has failed antibiotics in the outpatient setting and now has a nonsalvageable hallux at best. I recommend right hallux amputation with possible first ray resection and incision and drainage and also debridement of right ankle ulcer. She is n.p.o. at this time and is tentatively added onto the surgery schedule at 14:30 today okay to continue aspirin. Anticipated anesthesia is MAC and local. Preoperative indications, planned procedure, benefits, risk, anticipated healing time and management were reviewed. The patient understands and elects proceed with surgery at this time. No guarantees were made. The patient understands risk and complications include but are not limited to following: pain, swelling, scarring, need for further surgery, tendon contracture, transfer lesion, hardware failure, arthritis, need for further surgery, delayed or nonhealing, infection, blood clot, allergic reaction, loss of limb, function, or life. The informed surgical limb and consent will need to be signed. I answered all the patient's questions. Surgical limb and consent will be signed. Dressing: Change this morning with Betadine wet-to-dry gauze Wash: Soap and water Offload: Continue surgical shoe Vascular: Recent abdominal pelvic arteriogram with recent intervention with Dr. Wilson this past 10/05/2020. Edema: Continue Colten wrap application and periodic leg Pain: Controlled secondary to neuropathy Host factors: She is uncontrolled diabetes with neuropathy (A1c that was last checked was actually 6.1%), chronic kidney disease and other comorbidities that are contributing to her delayed healing. Medical management per hospitalist services greatly appreciated and noted. I also recommend nutritional supplementation optimize healing and this is been ordered. I answered all the patient's questions. I will follow her closely while in house. Please do not hesitate to call if you have any questions. Moriah Bernal DPM, [facility] [phone]
[2020-11-02 07:22] LABS: Absolute Lymphocyte Count 0.92 X10^3/uL (0.83-4.51); Absolute Neutrophil Count 10.2 X10^3/uL (2.0-7.7); Basophil# 0.05 X10^3/uL; Basophil% 0.4 % (0-1); Eosinophil# 0.09 X10^3/uL; Eosinophils% 0.7 % (0-5); Hematocrit 33.7 % (37-47); Hemoglobin 10.7 g/dL (12.0-15.0); Lymphocyte # 0.92 X10^3/ul (0.83-4.51); Lymphocyte % 7.7 % (19-41); Mean Corp Hgb Conc 31.8 g/dL (32-36); Mean Corpuscular Hgb 29.6 pg (27.0-32.0); Mean Corpuscular Volume 93.1 fL (81-99); Mean Platelet Vol. 10.3 fl (6.2-12.0); Monocyte# 0.64 X10^3/uL; Monocyte% 5.3 % (0-10); NRBC Flagged by Analyzer 0 % (0-5); Neutrophil # 10.24 X10^3/uL (2.7-7.7); Neutrophil % 85.3 % (47-70); Platelet Count 251 K/mm3 (150-450); RBC Distribution Width CV 14.3 % (11.6-14.6); RBC Distribution Width SD 48.2 fl (35.1-43.9); Red Blood Count 3.62 M/mm3 (4.2-5.4)
[2020-11-02 07:26] LABS: Bedside Glucose 150 mg/dL (70-110)
[2020-11-02 07:49] LABS: ALB/GLOB Ratio 0.5 RATIO (0.9-2.4); AST(SGOT) 30 U/L (15-37); Alanine Aminotransfer ALT/SGPT 34 U/L (13-56); Albumin, Serum 2.5 g/dL (3.2-5.0); Alkaline Phosphatase 81 U/L (45-117); Anion Gap 10 (5-15); BUN 45 mg/dL (7-18); BUN/Creat Ratio 32.4 RATIO (10-20); Calcium,Total 8.6 mg/dL (8.5-10.1); Chloride 108 mmol/L (98-107); Creatinine, Serum 1.39 mg/dL (0.55-1.02); EST Glomerular Filtration Rate 39 mL/min (>60); Est Glom Filt Rate - Afr Amer 47 mL/min (>60); Estimated Creatinine Clearance 28.34 ml/min; Globulin 4.7 g/dL (2.2-4.2); Glucose 168 mg/dL (74-106); Potassium 4.4 mmol/L (3.5-5.1); Protein, Total 7.2 g/dL (6.4-8.2); Sodium Level 140 mmol/L (136-145)
--- NOTE | 2020-11-02 07:55 | NURSING ---
This nurse is aware that morning blood sugar is 150
[2020-11-02 08:43] LABS: Hemoglobin A1c 6.2 % (3.8-5.6)
--- NOTE | 2020-11-02 09:24 | NURSING ---
Decreased IVf to 60ml/hr at this time per Serjio Owen verbal order.
[2020-11-02 10:53] LABS: Pathologist Review Reviewed
[2020-11-02] MEDS: 0.9% Saline Lock 10 ML Syringe IV (11:25)
[2020-11-02] MEDS: Furosemide 20 MG Tablet PO (11:30)
[2020-11-02] MEDS: Atenolol 50 MG Tablet PO ×2 (11:31→22:43)
[2020-11-02] MEDS: Lisinopril 20 MG Tablet PO (11:31)
[2020-11-02] MEDS: amLODIPine 10 MG Tablet PO (11:31)
--- NOTE | 2020-11-02 11:49 | PN.HOSP_ITS ---
Documented by User: Anabel Storey NP, [employer] RESUR[employer]ACER-C 11/02/20 12:02 Subjective Subjective Patient seen and examined. Denies fever, chills. Denies pain. Plan for OR this afternoon for right hallux amputation with possible first ray resection and I&D of right ankle ulcer. Objective Data Objective Data Vital Signs: Vital Signs Temp Pulse Resp BP Pulse Ox 97.7 F L 60 20 H 160/55 H 93 11/02/20 08:55 11/02/20 11:38 11/02/20 08:55 11/02/20 11:38 11/02/20 08:55 Oxygen Flow Rate (L/min) 1 Oxygen Delivery Method Nasal Cannula Weight: 153 lb 10.595 oz Body Mass Index (BMI) 25.8 Intake & Output: Intake and Output for Last 24 Hours 10/31/20 11/01/20 11/02/20 23:59 23:59 23:59 Intake Total 1635 / 1635 643.33 / 643.33 Balance 1635 / 1635 643.33 / 643.33 Lab / Micro Data Result Diagrams: 11/02/20 07:00 11/02/20 07:00 Labs: Laboratory Results - last 24 hr 11/01/20 16:15: WBC 18.0 H, RBC 4.15 L, Hgb 12.4, Hct 37.4, MCV 90.1, MCH 29.9, MCHC 33.2, RDW Std Deviation 45.8 H, RDW Coeff of Monique 14.2, Plt Count 347, MPV 10.1, Immature Gran % (Auto) 0.500, Neut % (Auto) 75.5 H, Lymph % (Auto) 13.6 L, Ralls % (Auto) 9.2, Eos % (Auto) 0.8, Baso % (Auto) 0.4, Absolute Neuts (auto) 13.6 H, Absolute Lymphs (auto) 2.44, Nucleated RBC % 0, Differential Comment , Diff Path Review Reviewed, Platelet Estimate ADEQUATE, RBC Morphology NORM C+C 11/01/20 16:15: PT 13.8, INR 1.1, APTT 49.8 H 11/01/20 16:15: Sodium 137, Potassium 4.4, Chloride 103, Carbon Dioxide 27.0, Anion Gap 7, BUN 49 H, Creatinine 1.67 H, Estim Creat Clear Calc 23.59, Est GFR (MDRD) Af Amer 38 L, Est GFR (MDRD) Non-Af 31 L, BUN/Creatinine Ratio 29.3 H, Glucose 156 H, Calcium 9.8, Total Bilirubin 0.70, AST 26, ALT 31, Alkaline Phosphatase 92, Total Protein 8.8 H, Albumin 3.3, Globulin 5.5 H, Albumin/Globulin Ratio 0.6 L 11/01/20 16:15: Lactic Acid 3.1 H* 11/01/20 16:18: ESR 68 H 11/01/20 16:18: Magnesium 2.5, C-React Prot Ext Range 131.00 H 11/01/20 16:18: Hemoglobin A1c 6.1 H 11/01/20 17:35: S.aureus Protein A PCR POSITIVE H, MRSA (PCR) POSITIVE H 11/01/20 20:10: Urine Color Yellow, Urine Clarity Clear, Urine pH 6.5, Ur Specific [place] 1.010, Urine Protein 15 H, Urine Glucose (UA) Normal, Urine Ketones Negative, Urine Occult Blood Negative, Urine Nitrite Negative, Urine Bilirubin Negative, Urine Urobilinogen Normal, Ur Leukocyte Esterase 100 H, Urine RBC 0 SEEN, Urine WBC 0-5 SEEN, Ur Squamous Epith Cells 0-5 SEEN, Urine Bacteria 0 SEEN, Urine Mucus 0 SEEN 11/01/20 21:30: Lactic Acid 3.2 H* 11/01/20 21:53: POC Glucose 266 H 11/02/20 07:00: WBC 12.0 H, RBC 3.62 L, Hgb 10.7 L, Hct 33.7 L, MCV 93.1, MCH 29.6, MCHC 31.8 L, RDW Std Deviation 48.2 H, RDW Coeff of Monique 14.3, Plt Count 251, MPV 10.3, Immature Gran % (Auto) 0.600, Neut % (Auto) 85.3 H, Lymph % (Auto) 7.7 L, Ralls % (Auto) 5.3, Eos % (Auto) 0.7, Baso % (Auto) 0.4, Absolute Neuts (auto) 10.2 H, Absolute Lymphs (auto) 0.92, Nucleated RBC % 0 11/02/20 07:00: Sodium 140, Potassium 4.4, Chloride 108 H, Carbon Dioxide 22.0, Anion Gap 10, BUN 45 H, Creatinine 1.39 H, Estim Creat Clear Calc 28.34, Est GFR (MDRD) Af Amer 47 L, Est GFR (MDRD) Non-Af 39 L, BUN/Creatinine Ratio 32.4 H, Glucose 168 H, Calcium 8.6, Total Bilirubin 1.00, AST 30, ALT 34, Alkaline Phosphatase 81, Total Protein 7.2, Albumin 2.5 L, Globulin 4.7 H, Albumin/Globulin Ratio 0.5 L 11/02/20 07:00: Hemoglobin A1c 6.2 H 11/02/20 07:15: POC Glucose 150 H Micro: Microbiology 11/02/20 09:38 Mucosa - Nasopharyngeal SARS-CoV-2 Antigen (Rapid) - Final Radiography Diagnostic Testing: Radiology Impression Foot X-Ray 11/01/20 17:00 IMPRESSION: Cannot exclude osteomyelitis especially of the first distal phalanx. Stable severe neuropathic joint changes. Electronically Signed: Demian Shrestha MD at 17:21 EDT , Service support , Chest X-Ray 11/01/20 22:56 IMPRESSION: Cannot exclude minimal pulmonary opacities especially on the left which could represent multifocal infiltrates. If clinically indicated, repeat scan recommended. Electronically Signed: Demian Shrestha MD at 23:52 EDT , Service support , Physical Exam Const alert, oriented x3 and no apparent distress Orientation / Consciousness: awake, oriented to person, oriented to place and oriented to time HEENT normocephalic and moist oral mucous membranes Eyes PERRL, EOMs intact bilaterally and conjunctivae normal Neck no lymphadenopathy Resp normal respiratory effort and clear to auscultation bilaterally Cardio regular rate, regular rhythm and no murmurs Peripheral Pulses: pulses 2+ throughout GI normal to inspection, nondistended, normoactive bowel sounds, non-tender and non-distended Extremity normal to inspection Skin no rashes or lesions noted Skin Narrative: Right foot wound, dressing intact Lesions: no lesions Rashes: no rashes Trauma: no lacerations or abrasions Neuro CN's II-XII intact bilaterally, no focal motor deficits, no sensory deficits noted and deep tendon reflexes 2+ bilaterally Psych mental status grossly normal and affect normal Assessment & Plan Assessment/Plan (1) Severe sepsis with acute organ dysfunction: (2) Osteomyelitis of great toe of right foot: PLAN: 1. Acute severe sepsis with organ dysfunction secondary to acute right lower extremity great toe and lateral ankle infected diabetic wound with associated right great toe acute osteomyelitis, complicated by underlying charcot foot-podiatry following. Plan for right hallux amputation with possible first ray resection and I&D of right ankle ulcer. IV vancomycin and IV Zosyn. ID and podiatry following. Cultures pending. Wound RN consult. PT/OT. 2. Type 2 diabetes [id number] with sliding scale insulin. Oral regimen on hold. Hemoglobin A1c 6.2%. 3. Chronic kidney disease stage IIIa-stable, trend BMP. 4. CAD with history of CABG-continue aspirin, atenolol, Lasix, lisinopril. 5. PVD/PAD-history of recent angioplasty. Continue aspirin. Continue outpatient follow-up with vascular surgery. 6. Hyperlipidemia-statin allergy. 7. Hypertension-stable, continue current regimen. DVT prophylaxis-SCDs, began pharmacologic prophylaxis postoperatively when okay per podiatry This patient was seen by Anabel Storey NP-C under the supervision of Dr. Nj. Documented by User: Dr. Jillian Nj DO 11/02/20 13:53 Subjective Subjective Patient was seen in conjunction with Anabel Storey NP. The following is r epresentation my independent history and physical examination. Please see below for any addendum to the above. Patient states that she is aware she needs to go to surgery. She states she has been fighting this infection in her foot since approximately February. She states Dr. Bernal explained everything well has no questions at this time. Objective Data Lab / Micro Data Result Diagrams: 11/02/20 07:00 11/02/20 07:00 Physical Exam Const alert, oriented x3 and no apparent distress Constitutional Narrative: Elderly white female sitting up in bed, appears well, nontoxic Exam Limitations: no limitations Resp normal respiratory effort, no retractions, no use of accessory muscles and clear to auscultation bilaterally Auscultation: Negative for crackles, rales, rhonchi or wheezes Cardio regular rate, regular rhythm, S1 normal heart sound, S2 normal heart sound, no murmurs, no rub, no gallops, no clicks and no JVD GI normal to inspection, nondistended, normoactive bowel sounds, soft to palpation, non-tender and non-distended; Negative for hepatosplenomegaly Extremity no clubbing, cyanosis or edema Extremity Narrative: Right lower extremity wrapped in Colten bandage with dressing intact beneath Peripheral Pulses: Yes pulses 2+ throughout Neuro oriented x3, CN's II-XII intact bilaterally, moves all extremities, no focal mot or deficits and No no sensory deficits noted Neuro Narrative: Bilateral lower extremity neuropathy Sensorium / Orientation: awake and alert Speech: speech normal Assessment & Plan Assessment/Plan (1) Severe sepsis with acute organ dysfunction: (2) Osteomyelitis of great toe of right foot: (3) Controlled type 2 diabetes mellitus with hyperglycemia: PLAN: Assessment: Acute severe sepsis with organ dysfunction secondary to acute right great toe and lateral ankle infected diabetic foot wound/OM Leukocytosis Lactic acidosis ALEISHA on CKD stage IIIa Anemia-acute -Suspect dilutional related to fluid replacement [id number] CAD status post CABG PVD/PAD Hyperlipidemia Hypertension Vitamin D deficiency Plan: -Hemoglobin A1c is 6.2 -OR today for amputation per podiatry -Continue IV antibiotics -Continue IV fluids -Renal function is improving and moving closer to baseline -Continue SCDs and start heparin tomorrow if okay with surgery -PT/OT consult pending -Wound care consult pending Charges/Coding Visit Charges Inpatient E&M: 10687 Subs Hosp L2
--- NOTE | 2020-11-02 12:00 | RAD_ITS ---
STUDY: X-RAY RIGHT FOOT, FIRST TOE REASON FOR EXAM: Female, 79 years old. AMPUTATION TOE, HALLUX, ETC. -- MINI C-ARM @ 1300PM TECHNIQUE: 3 C-arm view(s) of the toe were obtained. 4 seconds fluoroscopy time. COMPARISON: 11/01/2020. FINDINGS: Status post resection of the first digit. Correlate with procedure note. Electronically Signed: Demian Shrestha MD at 16:43 EDT , Service support , RAD/Toe(s) Min 2 Views
[2020-11-02] MEDS: 0.9% Normal Saline 1,000 ML 60 ML IV ×2 (12:26→15:31)
--- NOTE | 2020-11-02 12:31 | NURSING ---
off the floor at this time. Tia from OR transport came to get pt via bed.
[2020-11-02 12:56] LABS: Bedside Glucose 97 mg/dL (70-110)
[2020-11-02] MEDS: Bupivacaine Mpf 0.5% 30 ML VIAL (13:00)
--- NOTE | 2020-11-02 13:00 | AMP_PTH ---
PATIENT: DARREN SANDOVAL LOC: [facility] U#:[id number] AGE/SX: 79/F ROOM: [facility] RE11/01/[address]: Dr. Dipak Bales DO : 1940 BED: 1 DIS: 11/07/2020 SPEC #: [id number] RECD: 11/02/20 14:40 STATUS: CHLOE REQ #: [id number] MARIA ELENA: 11/02/20 13:[address]: Moriah Bernal DEPT: SURGICAL PATHOLOGY RECD BY: Santa Mims ENTERED: 11/03/20 08:24 SP TYPE: Amputation OTHR DR: MD Dr. Kelsy Ledbetter MD Dr. Jeanna Fascione, DPM Dr. Ema Chao, DPM DO Dr. Loki Lucio MD Tissues: A - Toe, NOS C - Bone of foot, NOS Procedures: Decalcification bone/plaque Surgery Specimen Level IV Comments: @ Ordering doctor for DEC edited from to DR.JFASCI Jersey DSOUZA at 11/03/20923 @ Ordering doctor for SUIII edited from to @ by MEET at 11/03/20923 @ Ordering doctor for SUIV edited from to @ sima DSOUZA at 11/03/20923 @ Submitting doctor edited from to DR.JFASCI [place] DSOUZA at 11/03/20923 HEADER OPERATION: Amputation toe, hallux, ulcer debridement PRE-OP DIAGNOSIS: Severe sepsis with acute organ dysfunction; osteomyelitis of great toe of right foot; cellulitis of right foot TISSUE SUBMITTED: A ? Right great toe, B ? Clearance fragment, right MICROSCOPIC DIAGNOSIS A. Right great toe, amputation: Skin and soft tissue with ulceration and associated acute and chronic inflammation and abscess formation. Bone with acute osteomyelitis. B. Clearance fragment bone, right great toe, biopsy: No evidence of osteomyelitis. AM:delisa 11/08/2020 MICROSCOPIC DESCRIPTION Slides are reviewed. GROSS DESCRIPTION A - Received in fixative is one container labeled with the patient's name and designated right great toe. The specimen consists of two irregular fragments. One fragment consists entirely of almazan bone measuring 4 x 2 x 1.8 cm. The second fragment consists of a toe with attached skin, bone and soft tissue and a deformed nail. This fragment measures 4.8 cm in length and 2.7 cm in diameter. The deformed nail appears to contain an area of ulceration measuring 1.5 x 1 x 0.8 cm. A longitudinal section of toe with ulcerated area, bone and soft tissue is submitted in two cassettes after decalcification. The margin of resection is inked in blue ink. B - Received in fixative is one container labeled with the patient's name and designated clearance fragment right toe. The specimen consists of an irregular fragment of almazan bone measuring 0.6 x 0.5 x 0.3 cm. The specimen is submitted in its entirety after decalcification. / AM:delisa 11/03/20 TC:2 CPT: 34645 x2, 21509 x2
[2020-11-02] MEDS: Lidocaine 1% (30 ml sdv) 30 ML Vial (13:20)
--- NOTE | 2020-11-02 14:02 | OP.PCM_ITS ---
Problems Associated Problem List Diagnoses (1) Severe sepsis with acute organ dysfunction: (2) Osteomyelitis of great toe of right foot: (3) Cellulitis of foot, right: (4) Delayed wound healing: (5) Type 2 diabetes mellitus with diabetic polyneuropathy: (6) Ulcer of right lower extremity with muscle involvement without evidence of necrosis: Report of Operation Date of Procedure: 11/02/20 Pre-Operative Diagnosis: osteomyelitis and cellulitis of right hallux with ulcer right lateral ankle ulcer Post-Operative Diagnosis: osteomyelitis and cellulitis of right hallux with ulcer right lateral ankle ulcer Surgery/Procedure Performed:: right hallux amputation right subcutaneous excisional debridement of lateral ankle ulcer Description of Surgical Findings:: Hemostasis: No tourniquet utilized, anatomic dissection Materials: 3-0 Vicryl and 3-0 and 2-0 nylon and Adaptic Complications: None Specimens sent a pending Findings: No infection or necrosis after the level of amputation or ulcer debridement The patient tolerated the procedure and anesthesia well. The patient was transported to the PACU with vital signs stable and vascular status intact to the surgical limb. To ice and elevate for pain and inflammation management. Postoperative x-rays were reviewed prior to leaving the operating room. Three standard xray views of the right foot were obtained which demonstrated adequate hallux amputation without acute injuries, soft tissue emphysema, or foreign body. Postoperative orders were entered electronically. Surgeon: Moriah Bernal automobile assembler: None (Anabel Stewart DPM, PGY2) Type of Anesthesia: Local (Preoperative: Right first ray block and lateral infiltrative ankle ulcer injection, 17 cc of one-to-one mixture of 1% lidocaine plain and 0.5% Marcaine plain) and MAC Specimen's removed: 1. Right hallux sent to microbiology (aerobic, anaerobic, acid-fast, fungal) 2. Right hallux sent to pathology 3. Right foot clearance fragment sent to microbiology (aerobic, anaerobic, acid-fast, fungal) 4. Right foot clearance fragment sent to pathology Estimated Blood Loss (mL): < 50 mL Description of Procedure: Indications: This is a 79-year-old female with significant past medical history of diabetes with neuropathy, peripheral vascular disease, hypertension, chronic kidney disease, coronary artery disease, history of colitis presents with continued nonhealing right lateral ankle ulcer and also right hallux ulcer now with suspected osteomyelitis and non salveagable status. Her case is complicated with recent sepsis development. She was admitted yesterday and placed on IV antibiotics. She has failed a basic and advanced wound healing treatment plan in the outpatient setting including offloading, wound debridement, various wound care product application, and nutritional supplementation recommendations. She also had recent vascular surgery on 10-05-20 which included proximal and distal anterior tibial angioplasty with balloon placement. She has had ongoing delays in healing and had recent redness development over the past couple of days in which she failed oral antibiotics (linezolid). Clinically, erythema is intense and extends to the medial forefoot. There is no purulence. Plan right hallux appears cyanotic with a distal eschar and exposed bone. The lateral right ankle ulcer is fibrous and granular with no longer any exposed bone or muscle. She samson s difficult to palpate pulses and has lower extremity edema that is consistent prior exams. Her left hallux and not appear salvageable. Upon admission her white blood cell count was 18 and her lactic acid was over 3. Preoperative H&P were reviewed including her diagnostic data. There is no gross abnormalities noted with labs. Preoperative indications, planned procedure, benefits, risk, anticipated healing time and management were reviewed. The patient understands and elects proceed with surgery at this time. No guarantees were made. The patient understands risk and complications include but are not limited to following: pain, swelling, scarring, need for further surgery, tendon contracture, arthritis, need for further surgery, delayed or nonhealing, infection, blood clot, allergic reaction, loss of limb, function, or life. The informed surgical limb and consent was signed. I answered all the patient's questions. Procedure in detail: The patient was transported to the operating room via cart and placed on the operating table in supine position. Final verification the patient, surgery, limb designation was performed via the timeout procedure. The patient is already receiving IV vancomycin and Zosyn on the medical floor. Infectious disease on consultation. She has also recently had vascular surgery intervention in the outpatient setting including buddhism of the anterior tibial artery. The anesthesia team initiated MAC anesthesia. The podiatry team administered the local anesthetic to the right lower extremity as noted. No tourniquet was utilized. The right lower extremity was prepped and draped in the usual aseptic manner. Surgery proceeded as the following: Attention was first directed to the medial right forefoot in which a fishmouth incision was made around the first metatarsophalangeal joint extending into the hallux down to bone. No touch technique and careful dissection was performed to create a full-thickness flap and to disarticulate the hallux at the metatarsophalangeal joint level. Specimen is removed and sent to both microbiology and pathology. This was next copiously irrigated with normal saline and any exposed tendons were pulled to length and devitalized tissue was debrided from the wound which was minimal. It is noted there was no purulence, necrosis or infection noted at this level and there was healthy bleeding tissue. There is no adjacent bogginess, fluctuance, or abscess formation suspected. There was no pulsatile bleeding and pressure was maintained with pressure. Copious saline irrigation was performed at this time. Next, clean instrumentation, adjacent drapery and gloves were applied. A clearance fragment was obtained from the first metatarsal head and was also sent to microbiology pathology. Deep closure was performed with minimal Vicryl suture use. The skin was next reapproximated with nylon suture utilizing simple and horizontal mattress techniques. Capillary refill time was less than 3 seconds to the adjacent amputation stump borders and also to the remaining digits on the right foot. Next, attention was directed to the lateral ankle wound was a 15 blade scalpel was used to subcutaneously debride the ulcer in an excisional manner. The predebridement measurement was 1.7 x 2.3 x 0.4 cm and the post debridement measurement was 1.9 x 2.5 x 0.5 cm. There is no exposed bone or tendon in the ulcer nor was there any purulence, eschar or necrosis. Pressure was applied to maintain hemostasis. Postoperative x-rays were reviewed as noted. A postoperative dressing consisting of Adaptic soaked in Betadine was applied to each site and this was further covered with gauze, an abdominal pad, Kerlix and an Colten wrap applied in a noncompressive manner. After procedure: The patient tolerated the procedure and anesthesia well. The patient was transported to the PACU with vital signs stable and vascular status intact to the surgical limb. To ice and elevate for pain and inflammation management. She will maintain a nonweightbearing status to the right lower extremity in the upcoming days. She will continue on antibiotics under the management of infectious disease. Her intraoperative and preoperative microbiology and pathology specimen findings are pending. It is noted she also had a previous blood culture obtained and these final results are pending as well. We will con eusebio to follow her closely while in house. Postoperative orders were entered electronically and she was transferred back to the medical surgical floor. Moriah Bernal DPM, [facility] Foot & Ankle [place] Grafts/Implants Used: none Complications none Admit VTE Documentation VTE Present on Admission: No VTE Mechan Device Prophylaxis: SCD's VTE Pharm Prophylaxis ordered?: Yes
--- NOTE | 2020-11-02 14:18 | CASEMGMT ---
Palliative screening tool completed for Lace/Strata 3. Patient meets criteria for palliative consult. Hospitalist update, no referral at this time.
--- NOTE | 2020-11-02 14:28 | SUR.PHASEI ---
1420 PACU BP DID NOT CYCLE CORRECTLY,
--- NOTE | 2020-11-02 14:35 | CASEMGMT ---
Readmission chart review: Pt was admitted 09/29-10/03/20 for Osteo/exposed bone w/ infection on MS3. MRI's were negative for osteo at that time and pt was placed on po linezolid. Pt/family declined [facility] at discharge. Pt was seen in wound clinic on 10/24/20. Pt returned to [facility] ED on 11/01/20 by wound clinic for infected toe.
--- NOTE | 2020-11-02 15:00 | CASEMGMT ---
Readmission chart review: Pt was admitted 09/29-10/03/20 for Osteo/exposed bone w/ infection on MS3. MRI's were negative for osteo at that time and pt was placed on po linezolid. Pt/family declined [facility] at discharge and plan was for daughter to daily dressing changes. Pt was seen in wound clinic on 10/24/20. Pt returned to [facility] ED on 11/01/20 by wound clinic for infected toe and failed OP antibx. Pt taken to OR by Dr. Bernal 11/02/20 for amputation. CM to follow for any discharge planning/needs. Ernestina RAY CM
--- NOTE | 2020-11-02 16:05 | PCM.CONS.GEN ---
Assessment & Plan Assessment/Plan (1) Osteomyelitis of great toe of right foot: PLAN: OR planned, on vanc/zosyn. Cx pending. Encouraged her to get covid vaccine. Will follow, thank you (2) Cellulitis of foot, right: (3) Type 2 diabetes mellitus with diabetic polyneuropathy: QUALIFIERS: Diabetes mellitus buttermaker continuous churn insulin use: unspecified fci insulin use status Qualified Code(s): E11.42 - Type 2 diabetes mellitus with diabetic polyneuropathy HPI Consult Data Date of Consult: 11/02/20 HPI Narrative HPI Narrative: DARREN SANDOVAL, is a 79 F who presented with about a week of worsening R foot redness, ulceration, drainage. Minimal pain due to neuropathy. Recently on linezolid after admission for foot/ankle infection. Worsened off abx, restarted on 10/30. No fever, no n/v/d. Has not gotten covid vaccine. Seen in clinic by me yesterday, recommended she go to ED. Admitted with lactic acidosis, podiatry eval, and started on vanc/zosyn. Feeling ok today, OR planned. Full ROS performed and neg except as noted above. [facility] Medical History Arthritis Breast lump in female Cataracts, bilateral Diabetes Diverticulosis Gallstones Heart failure High blood pressure Kidney stones Non-smoker Osteoarthritis Ulcer of right foot with necrosis of bone Home Medications glyburide 5 mg PO DAILY@0800 08/26/15 [History Last Taken 11/01/20] metformin 500 mg PO TIDCM 08/26/15 [History Last Taken 11/01/20] ascorbic acid (vitamin C) 500 mg PO DAILY@1200 12/09/16 [History Last Taken 11/01/20] atenolol 50 mg PO BID 12/09/16 [History Last Taken 11/01/20] cholecalciferol (vitamin D3) 1,000 unit PO DAILY@1200 12/09/16 [History Last Taken 11/01/20] cyanocobalamin (vitamin B-12) 1,000 mcg PO DAILY@1200 12/09/16 [History Last Taken 11/01/20] multivitamin 1 ea PO DAILY@1200 12/09/16 [History Last Taken 11/01/20] omega-3 fatty acids-fish oil 1 cap PO BID 12/09/16 [History Last Taken 11/01/20] aspirin 81 mg PO DAILY 06/11/17 [History Last Taken 11/01/20] lisinopril 20 mg PO DAILY 12/05/17 [History Last Taken 11/01/20] magnesium oxide 400 mg PO DAILY@1200 03/01/20 [History Last Taken 11/01/20] furosemide 20 mg PO DAILY 03/02/20 [History Last Taken 10/31/20] amlodipine 10 mg PO DAILY 09/29/20 [History Last Taken 11/01/20] linezolid [Zyvox] 600 mg PO BID 11/01/20 [History Last Taken 11/01/20] Allergy/AdvReac Type Severity Reaction Status Date / Time adhesive Allergy Unknown Verified 11/01/20 15:39 atorvastatin calcium Allergy Unknown Verified 11/01/20 15:39 [From Lipitor] bacitracin Allergy Unknown Verified 11/01/20 15:39 [From Neosporin ([id number])] bacitracin zinc Allergy Unknown Verified 11/01/20 15:39 [From Neosporin ([id number])] fenofibrate nanocrystallized Allergy Unknown Verified 11/01/20 15:39 [From Tricor] fenofibrate,micronized Allergy Unknown Verified 11/01/20 15:39 [From Tricor] flurbiprofen Allergy Unknown Verified 11/01/20 15:39 gemfibrozil Allergy Unknown Verified 11/01/20 15:39 glipizide [From Glucotrol] Allergy Unknown Verified 11/01/20 15:39 metronidazole Allergy ALLERGY Verified 11/01/20 15:39 neomycin sulfate Allergy Unknown Verified 11/01/20 15:39 [From Neosporin ([id number])] polymyxin B Allergy Unknown Verified 11/01/20 15:39 [From Neosporin ([id number])] prednisolone acetate, Allergy ALLERGY Verified 11/01/20 15:39 micronized simvastatin Allergy ALLERGY Verified 11/01/20 15:39 tramadol [From Ultram] Allergy ALLERGY Verified 11/01/20 15:39 amoxicillin [From Augmentin] AdvReac Nausea/Vom/ Verified 11/01/20 15:39 Diarrhea clavulanic acid AdvReac Nausea/Vom/ Verified 11/01/20 15:39 [From Augmentin] Diarrhea pravastatin AdvReac Other Verified 11/01/20 15:39 Family History Mother Diabetes Father Hypertension CVA (cerebral vascular accident) Brother Lung cancer Sister Breast cancer COPD (chronic obstructive pulmonary disease) Surgical History History of cholecystectomy History of heart bypass surgery History of knee replacement Social History household members: family housing: house Smoking Status: Never smoker alcohol intake: current alcohol intake frequency: other substance use type: does not use additional social history: USES [employer] Physical Exam Const alert and no apparent distress General Appearance: cooperative HEENT normocephalic and head/scalp atraumatic Eyes PERRL and EOMs intact bilaterally Neck supple and No nodes Lymph Lymphatic: no lymphadenopathy noted Resp normal air movement and clear to auscultation bilaterally Cardio regular rate and regular rhythm GI normal to inspection, nondistended, normoactive bowel sounds Extremity no clubbing, cyanosis or edema Skin Skin Narrative: R foot with cellulitis, hallux discoloration, ulceration Neuro CN's II-XII intact bilaterally Medical Records Data Medical Nutrition Assessment Dietitian: Nutrition Therapy Diagnosis Start: 11/02/20 13:02 Freq: Status: Active Protocol: Document 11/02/20 12:42 AG (Rec: 11/02/20 13:43 [id number]) Nutrition Malnutrition Evidence of Malnutrition Exists No Intake Problem Increased Nutrient Needs (specify) Etiology (protein) r/t nonhealing wounds Signs/Symptoms as evidenced by R maleolus and R great toe/foot wound Status Active Problem Recommendation Dietitian Recommendations/Changes 1600 calorie controlled diet when medically indicated; Maciej BID for wound healing when indicated. Lab / Micro Data Result Diagrams: 11/02/20 07:00 11/02/20 07:00 Labs: Laboratory Results - last 24 hr 11/01/20 16:15: WBC 18.0 H, RBC 4.15 L, Hgb 12.4, Hct 37.4, MCV 90.1, MCH 29.9, MCHC 33.2, RDW Std Deviation 45.8 H, RDW Coeff of Monique 14.2, Plt Count 347, MPV 10.1, Immature Gran % (Auto) 0.500, Neut % (Auto) 75.5 H, Lymph % (Auto) 13.6 L, [place] % (Auto) 9.2, Eos % (Auto) 0.8, Baso % (Auto) 0.4, Absolute Neuts (auto) 13.6 H, Absolute Lymphs (auto) 2.44, Nucleated RBC % 0, Differential Comment , Diff Path Review Reviewed, Platelet Estimate ADEQUATE, RBC Morphology NORM C+C 11/01/20 16:15: PT 13.8, INR 1.1, APTT 49.8 H 11/01/20 16:15: Sodium 137, Potassium 4.4, Chloride 103, Carbon Dioxide 27.0, Anion Gap 7, BUN 49 H, Creatinine 1.67 H, Estim Creat Clear Calc 23.59, Est GFR (MDRD) Af Amer 38 L, Est GFR (MDRD) Non-Af 31 L, BUN/Creatinine Ratio 29.3 H, Glucose 156 H, Calcium 9.8, Total Bilirubin 0.70, AST 26, ALT 31, Alkaline Phosphatase 92, Total Protein 8.8 H, Albumin 3.3, Globulin 5.5 H, Albumin/Globulin Ratio 0.6 L 11/01/20 16:15: Lactic Acid 3.1 H* 11/01/20 16:18: ESR 68 H 11/01/20 16:18: Magnesium 2.5, C-React Prot Ext Range 131.00 H 11/01/20 16:18: Hemoglobin A1c 6.1 H 11/01/20 17:35: S.aureus Protein A PCR POSITIVE H, MRSA (PCR) POSITIVE H 11/01/20 20:10: Urine Color Yellow, Urine Clarity Clear, Urine pH 6.5, Ur Specific [place] 1.010, Urine Protein 15 H, Urine Glucose (UA) Normal, Urine Ketones Negative, Urine Occult Blood Negative, Urine Nitrite Negative, Urine Bilirubin Negative, Urine Urobilinogen Normal, Ur Leukocyte Esterase 100 H, Urine RBC 0 SEEN, Urine WBC 0-5 SEEN, Ur Squamous Epith Cells 0-5 SEEN, Urine Bacteria 0 SEEN, Urine Mucus 0 SEEN 11/01/20 21:30: Lactic Acid 3.2 H* 11/01/20 21:53: POC Glucose 266 H 11/02/20 07:00: WBC 12.0 H, RBC 3.62 L, Hgb 10.7 L, Hct 33.7 L, MCV 93.1, MCH 29.6, MCHC 31.8 L, RDW Std Deviation 48.2 H, RDW Coeff of Monique 14.3, Plt Count 251, MPV 10.3, Immature Gran % (Auto) 0.600, Neut % (Auto) 85.3 H, Lymph % (Auto) 7.7 L, [place] % (Auto) 5.3, Eos % (Auto) 0.7, Baso % (Auto) 0.4, Absolute Neuts (auto) 10.2 H, Absolute Lymphs (auto) 0.92, Nucleated RBC % 0 11/02/20 07:00: Sodium 140, Potassium 4.4, Chloride 108 H, Carbon Dioxide 22.0, Anion Gap 10, BUN 45 H, Creatinine 1.39 H, Estim Creat Clear Calc 28.34, Est GFR (MDRD) Af Amer 47 L, Est GFR (MDRD) Non-Af 39 L, BUN/Creatinine Ratio 32.4 H, Glucose 168 H, Calcium 8.6, Total Bilirubin 1.00, AST 30, ALT 34, Alkaline Phosphatase 81, Total Protein 7.2, Albumin 2.5 L, Globulin 4.7 H, Albumin/Globulin Ratio 0.5 L 11/02/20 07:00: Hemoglobin A1c 6.2 H 11/02/20 07:15: POC Glucose 150 H 11/02/20 12:22: POC Glucose 97 Micro: Microbiology 11/01/20 16:18 Blood Culture (Wb) - Anticubital Left Bacteria Detection (PCR) - Final Meth. resistant Staph. aureus 11/01/20 16:18 Blood Culture (Wb) - Anticubital Left Blood Culture - Preliminary Meth. resistant Staph. aureus 11/02/20 09:38 Mucosa - Nasopharyngeal SARS-CoV-2 Antigen (Rapid) - Final Radiology Impression Foot X-Ray 11/01/20 17:00 IMPRESSION: Cannot exclude osteomyelitis especially of the first distal phalanx. Stable severe neuropathic joint changes. Electronically Signed: Demian Shrestha MD at 17:21 EDT , Service support , Chest X-Ray 11/01/20 22:56 IMPRESSION: Cannot exclude minimal pulmonary opacities especially on the left which could represent multifocal infiltrates. If clinically indicated, repeat scan recommended. Electronically Signed: Demian Shrestha MD at 23:52 EDT , Service support ,
--- NOTE | 2020-11-02 16:19 | RAD_ITS ---
STUDY: X-RAY CHEST REASON FOR EXAM: Female, 79 years old. need for increased o2 TECHNIQUE: Single AP portable view of the chest. COMPARISON: 11/01/2020. FINDINGS: There is hyperinflation of the lungs consistent with chronic obstructive lung disease (COPD). Increasing ill-defined patchy and hazy bilateral pulmonary opacities, worse in the mid left lung. No effusions. There is no demonstrated pleural abnormality. Normal size heart. Previous CABG. Normal mediastinum and pavel. Normal visualized pulmonary arteries. Normal visualized aortic arch and descending thoracic aorta. There are diffuse degenerative changes of the visualized thoracic spine. Normal visualized ribs, clavicles, and shoulders. There is no demonstrated abnormality of the visualized soft tissue structures of the upper abdomen. RAD/Chest 1 View (Portable) IMPRESSION: Increasing ill-defined patchy and hazy bilateral pulmonary opacities, worse in the mid left lung. Electronically Signed: Demian Shrestha MD at 17:23 EDT , Service support ,
--- NOTE | 2020-11-02 16:20 | NURSING ---
This nurse had to increase o2 to 5L NC to get to 92%. Also has crackles to posterior lungs, see shift assessment intervention. This nurse informed Quita Storey NP and orders to turn off IVF and get portable chest xray. Pt is eating jello and drinking water and broth. up to bsc to void as well.
[2020-11-02 16:50] LABS: Bedside Glucose 135 mg/dL (70-110)
[2020-11-02] MEDS: Vancomycin IV 500 MG/100 ML BAG 100 MG IV (20:40)
[2020-11-02] MEDS: Temazepam 15 MG Capsule PO (22:42)
[2020-11-02] MEDS: Acetaminophen 325 MG Tablet 650 MG PO (22:42)
[2020-11-02] MEDS: Insulin Lispro 100 UNIT/ML INSULN.PEN SC (22:46)
[2020-11-03] VITALS (21 sets, daily range): BP systolic 149–164; BP diastolic 60–69; PULSE 58–70; RESP 12–26; TEMP 36.6–37.2; O2SAT 88–100
[2020-11-03] MEDS: Albuterol 2.5 MG/3 ML VIAL.NEB. INHALATION (05:04)
[2020-11-03] MEDS: Furosemide 40 MG/4 ML Vial IV ×2 (06:34→17:35)
[2020-11-03] MEDS: Insulin Lispro 100 UNIT/ML INSULN.PEN SC ×4 (06:42→22:57)
[2020-11-03 06:56] LABS: Bedside Glucose 174 mg/dL (70-110)
[2020-11-03 06:59] LABS: Absolute Lymphocyte Count 1.66 X10^3/uL (0.83-4.51); Absolute Neutrophil Count 12.5 X10^3/uL (2.0-7.7); Basophil# 0.05 X10^3/uL; Basophil% 0.3 % (0-1); Eosinophil# 0.42 X10^3/uL; Eosinophils% 2.6 % (0-5); Hematocrit 35.3 % (37-47); Hemoglobin 11.1 g/dL (12.0-15.0); Lymphocyte # 1.66 X10^3/ul (0.83-4.51); Lymphocyte % 10.2 % (19-41); Mean Corp Hgb Conc 31.4 g/dL (32-36); Mean Corpuscular Hgb 29.4 pg (27.0-32.0); Mean Corpuscular Volume 93.4 fL (81-99); Mean Platelet Vol. 10.2 fl (6.2-12.0); Monocyte% 9.2 % (0-10); NRBC Flagged by Analyzer 0 % (0-5); Neutrophil # 12.51 X10^3/uL (2.7-7.7); Platelet Count 241 K/mm3 (150-450); RBC Distribution Width CV 14.3 % (11.6-14.6); Red Blood Count 3.78 M/mm3 (4.2-5.4); White Blood Count 16.3 K/mm3 (4.4-11.0)
[2020-11-03 07:10] LABS: Bedside Glucose 390 mg/dL (70-110)
[2020-11-03 07:10] LABS: Bedside Glucose 343 mg/dL (70-110)
[2020-11-03 07:26] LABS: Anion Gap 6 (5-15); BUN 36 mg/dL (7-18); BUN/Creat Ratio 25.5 RATIO (10-20); Calcium,Total 8.8 mg/dL (8.5-10.1); Chloride 107 mmol/L (98-107); Creatinine, Serum 1.41 mg/dL (0.55-1.02); EST Glomerular Filtration Rate 38 mL/min (>60); Est Glom Filt Rate - Afr Amer 46 mL/min (>60); Estimated Creatinine Clearance 27.94 ml/min; Glucose 213 mg/dL (74-106); Potassium 4.6 mmol/L (3.5-5.1); Sodium Level 135 mmol/L (136-145)
--- NOTE | 2020-11-03 08:46 | CT_ITS ---
EXAM: CT CHEST WITHOUT INTRAVENOUS CONTRAST CLINICAL INDICATION: Hypoxia. TECHNIQUE: Helically acquired images were obtained of the chest without intravenous contrast. This CT exam was performed using one or more of the following dose reduction techniques: automated exposure control, adjustment of the mA and/or kV according to patient size, and/or use of iterative reconstruction technique. This report was created using [employer] report generation technology. COMPARISON: CTA abdomen and pelvis with and without contrast 12/08/2017. FINDINGS: ARTIFACTS: Breathing motion artifacts. LUNGS AND PLEURAL SPACES: Partial consolidation with air bronchograms in the posterior lung bases, left greater than right. Multifocal groundglass opacities in both lungs are nonspecific. Moderate bilateral posterior pleural fluid, left more than right. No mass. HEART: Extensive calcifications of all 3 coronary arteries. Normal cardiac size. Normal pericardium. Heart size is normal. MEDIASTINUM: Unremarkable. No mediastinal or hilar adenopathy. Esophagus is unremarkable. No hiatal hernia. THYROID: Unremarkable. No thyroid lesions. BONES/JOINTS: Unremarkable. Sternal wires from prior CABG procedure. No suspicious lytic or blastic abnormality. VASCULATURE: Moderate amount of atherosclerotic calcifications of the aortic cusps. Scattered atherosclerotic calcifications along the thoracic aorta. No aortic aneurysm. CT/Chest without Contrast IMPRESSION: 1. Pneumonia in both lungs, partial consolidation with air bronchograms in the posterior lung bases and multifocal nonspecific groundglass capacities in the upper lobes. 2. Limited study due to extensive breathing motion artifacts. 3. Moderate bilateral posterior pleural fluid, left more than right. Electronically Signed: Lars Moss MD at 9:36 EDT , Service support ,
[2020-11-03] MEDS: Magnesium Chloride 64 MG Delay Rel.Tablet 128 MG PO (08:47)
[2020-11-03] MEDS: Aspirin 81 MG TAB.CHEW PO (08:47)
[2020-11-03] MEDS: Lisinopril 20 MG Tablet PO (08:47)
[2020-11-03] MEDS: Multivitamins,Therapeutic Tablet 1 TABLET PO (08:47)
--- NOTE | 2020-11-03 08:47 | ECHOCS_ITS ---
Reason For Study: Valvular heart disease Procedure This was a 2D Doppler, Color Flow transthoracic echocardiogram. The study was technically difficult. Contrast injection was performed. Exam performed portable in patient room. Left Ventricle Normal LV size. Mild concentric left ventricular hypertrophy. Left ventricular systolic function is normal. The estimated ejection fraction is 55 %. No regional wall motion abnormalities noted. Right Ventricle Normal RV size. Normal systolic function. Atria The left atrium is mildly enlarged. Normal right atrium. No doppler evidence for ASD. Mitral Valve There is mild mitral annular calcification. Extension of the mitral annular calcification onto the posterior mitral valve leaflet. The mitral papillary muscle appears thickened and/or calcified. Mild mitral valve stenosis. Mild (1+) mitral valve insufficiency. Tricuspid Valve Normal tricuspid valve. Mild to moderate (1-2+) tricuspid valve insufficiency. Right ventricular systolic pressure estimated to be 51 mmHg. Aortic Valve The aortic valve is not well visualized. The aortic valve was not well visualized, however, based upon the 2D echocardiographic images obtained there appears to be thickening and calcification and partial restriction of the aortic valve leaflets. Mild to moderate aortic stenosis. Pulmonic Valve The pulmonic valve is not well visualized. Great Vessels The aortic root is not well visualized. Pericardium/Pleural No pericardial effusion. Medication Diluted definity 2ml given slow IV push to enhance endocardial definition. MMode/2D Measurements & Calculations LVIDd: 4.2 cm IVSd: 1.3 cm LVOT diam: 2.1 cm LVIDs: 3.2 cm LVPWd: 1.4 cm FS: 22.5 % LVOT area: 3.5 cm2 Ao root diam: 3.1 cm LAV(MOD-bp): 69.2 ml LA A4 area: 22.0 cm2 LA dimension: 3.9 cm LAV(MOD-bp) Indexed: 39.9 ml/m2 LAV(MOD-sp2): 69.8 ml LAV(MOD-sp4): 62.8 ml RA A4 area: 18.3 cm2 Time Measurements MV dec time: 0.22 sec Doppler Measurements & Calculations MV E max elías: 165.0 cm/sec Lat Peak E' Elías: 4.6 cm/sec Med Peak E' Elías: 3.1 cm/sec MV A max elías: 41.5 cm/sec E/E' lat: 36.0 E/E' med: 53.3 MV E/A: 4.0 MV V2 max: 195.5 cm/sec MV P1/2t max elías: 198.4 cm/sec Ao V2 max: 262.8 cm/sec MV max P.3 mmHg MV P1/2t: 78.0 msec Ao max P.6 mmHg MV V2 mean: 84.1 cm/sec MV dec slope: 744.5 cm/sec2 Ao V2 mean: 177.2 cm/sec MV mean P.9 mmHg Ao mean P.4 mmHg MV V2 VTI: 49.3 cm MVA(P1/2t): 2.8 cm2 Ao V2 VTI: 65.9 cm MVA(VTI): 1.4 cm2 SANA(I,D): 1.1 cm2 SANA(V,D): 1.0 cm2 LV V1 max: 75.9 cm/sec SV(LVOT): 70.3 ml PA V2 max: 69.3 cm/sec LV V1 max P.3 mmHg LV V1 mean P.4 mmHg LV V1 mean: 56.2 cm/sec LV V1 VTI: 20.3 cm TR max elías: 346.1 cm/sec TR max P.9 mmHg ECHO/Echo Complete W/ Contrast Interpretation Summary The study was technically difficult. Contrast injection was performed. Left ventricular systolic function is normal. The estimated ejection fraction is 55 %. Mild concentric left ventricular hypertrophy. The left atrium is mildly enlarged. There is mild mitral annular calcification. Extension of the mitral annular calcification onto the posterior mitral valve l eaflet. The mitral papillary muscle appears thickened and/or calcified. Mild mitral valve stenosis. Mild (1+) mitral valve insufficiency. Mild to moderate (1-2+) tricuspid valve insufficiency. The aortic valve was not well visualized, however, based upon the 2D echocardio graphic images obtained there appears to be thickening and calcification and partial restricti on of the aortic valve leaflets. Mild to moderate aortic stenosis. Right ventricular systolic pressure estimated to be 51 mmHg. Transmitral diastolic flow velocities suggest diastolic dysfunction (pseudonorm al pattern). Ordering Physician: Anabel Storey Referring Physician: Kelsy Mensah Performed By: Miki Valles RCS
[2020-11-03] MEDS: amLODIPine 10 MG Tablet PO (08:48)
[2020-11-03] MEDS: Cholecalciferol (VIT D3) 25 MCG TABLET (1,000 UNITS) PO (08:48)
[2020-11-03] MEDS: Atenolol 50 MG Tablet PO ×2 (08:48→22:28)
[2020-11-03] MEDS: Ascorbic Acid 500 MG Tablet PO (08:48)
[2020-11-03] MEDS: Cyanocobalamin 500 MCG Tablet 1000 MCG PO (08:48)
--- NOTE | 2020-11-03 10:08 | PN_ITS ---
Subjective Subjective This 79-year-old female with multiple comorbidities was seen bedside this morning postoperative day #1 right hallux amputation and lateral right ankle ulcer debridement secondary to cellulitis and sepsis. Her pain to her foot and ankle are controlled. She denies fever, chill, nausea, vomiting. She relates she just got back from CT scan and also had plans to have an updated echocardiogram. Objective Data Objective Data Vital Signs: Vital Signs Temp Pulse Resp BP Pulse Ox 98.4 F 70 20 H 149/60 H 93 11/03/20 08:37 11/03/20 08:37 11/03/20 08:37 11/03/20 08:37 11/03/20 08:37 Oxygen Flow Rate (L/min) 13 Oxygen Delivery Method Nasal Cannula Weight: 68.6 kg Body Mass Index (BMI) 26.4 Intake & Output: Intake and Output for Last 24 Hours 11/01/20 11/02/20 11/03/20 23:59 23:59 23:59 Intake Total 1635 / 1635 1909.33 / 1909.33 300 / 300 Output Total 1000 / 1000 400 / 400 Balance 1635 / 1635 909.33 / 909.33 -100 / -100 Medical Nutrition Assessment Dietitian: Nutrition Therapy Diagnosis Start: 11/02/20 13:02 Freq: Status: Active Protocol: Document 11/02/20 12:42 AG (Rec: 11/02/20 13:43 AG [id number]) Nutrition Malnutrition Evidence of Malnutrition Exists No Intake Problem Increased Nutrient Needs (specify) Etiology (protein) r/t nonhealing wounds Signs/Symptoms as evidenced by R maleolus and R great toe/foot wound Status Active Problem Recommendation Dietitian Recommendations/Changes 1600 calorie controlled diet when medically indicated; Maciej BID for wound healing when indicated. Lab / Micro Data Result Diagrams: 11/03/20 06:25 11/03/20 06:25 Labs: Laboratory Results - last 24 hr 11/01/20 16:15: Diff Path Review Reviewed 11/02/20 12:22: POC Glucose 97 11/02/20 16:18: POC Glucose 135 H 11/02/20 22:45: POC Glucose 390 H 11/02/20 22:48: POC Glucose 343 H 11/03/20 06:25: WBC 16.3 H, RBC 3.78 L, Hgb 11.1 L, Hct 35.3 L, MCV 93.4, MCH 29.4, MCHC 31.4 L, RDW Std Deviation 48.0 H, RDW Coeff of Monique 14.3, Plt Count 241, MPV 10.2, Immature Gran % (Auto) 0.700, Neut % (Auto) 77.0 H, Lymph % (Auto) 10.2 L, [place] % (Auto) 9.2, Eos % (Auto) 2.6, Baso % (Auto) 0.3, Absolute Neuts (auto) 12.5 H, Absolute Lymphs (auto) 1.66, Nucleated RBC % 0 11/03/20 06:25: Sodium 135 L, Potassium 4.6, Chloride 107, Carbon Dioxide 22.0, Anion Gap 6, BUN 36 H, Creatinine 1.41 H, Estim Creat Clear Calc 27.94, Est GFR (MDRD) Af Amer 46 L, Est GFR (MDRD) Non-Af 38 L, BUN/Creatinine Ratio 25.5 H, Glucose 213 H, Calcium 8.8 11/03/20 06:41: POC Glucose 174 H Micro: Microbiology 11/01/20 16:25 Blood Culture (Wb) - Left Hand Blood Culture - Preliminary 11/01/20 16:18 Blood Culture (Wb) - Anticubital Left Bacteria Detection (PCR) - Final Meth. resistant Staph. aureus 11/01/20 16:18 Blood Culture (Wb) - Anticubital Left Blood Culture - Preliminary Meth. resistant Staph. aureus 11/02/20 09:38 Mucosa - Nasopharyngeal SARS-CoV-2 Antigen (Rapid) - Final Radiography Diagnostic Testing: Radiology Impression Toe X-Ray 11/02/20 12:00 Chest X-Ray 11/02/20 16:19 IMPRESSION: Increasing ill-defined patchy and hazy bilateral pulmonary opacities, worse in the mid left lung. Electronically Signed: Demian Shrestha MD at 17:23 EDT , Service support , Chest CT 11/03/20 08:46 IMPRESSION: 1. Pneumonia in both lungs, partial consolidation with air bronchograms in the posterior lung bases and multifocal nonspecific groundglass capacities in the upper lobes. 2. Limited study due to extensive breathing motion artifacts. 3. Moderate bilateral posterior pleural fluid, left more than right. Electronically Signed: Lars Moss MD at 9:36 EDT , Service support , Physical Exam Const alert and oriented x3 General Appearance: cooperative HEENT normocephalic Extremity Extremity Narrative: No calf tenderness Diminished pulses Muscle wasting noted lower extremity edema noted negative navas and everton sign right Compartments of the right lower extremity remain soft to palpate General Extremity: edema and no tenderness to palpation of joints or ext remities; Negative for cyanosis Skin Skin Narrative: Her skin is very hairless and atrophic. Status post hallux a mputation is well aligned with sutures intact without eschar or tony necrosis. Capillary refill time next to both amputation borders are less than 3 seconds and this will be monitored for continued viability. There is no gapping or maceration. Her erythema and edema to the foot have completely resolved. There is no purulence on expression. The lateral right ankle ulcer that was debrided is also healthy with granular and less than 25% fibrous base. There is no exposed bone or tendon nor is there any odor or local signs of infection to the site. minimal discomfort to palpate the surgical sites. General Skin Exam: Negative for erythema Neuro Neuro Narrative: lack of normal epicritic sensation via light touch is consistent with neuropathy status Psych cooperative and affect normal Assessment & Plan Assessment/Plan (1) Severe sepsis with acute organ dysfunction: (2) Osteomyelitis of great toe of right foot: (3) Cellulitis of foot, right: (4) Delayed wound healing: (5) Type 2 diabetes mellitus with diabetic polyneuropathy: QUALIFIERS: Diabetes mellitus director long term care insulin use: unspecified custodial insulin use status Qualified Code(s): E11.42 - Type 2 diabetes mellitus with diabetic polyneuropathy (6) Ulcer of right lower extremity with muscle involvement without evidence of n ecrosis: PLAN: I reviewed and discussed her case this morning. The following work up and care recommendations were made: Infection: She had decreased white blood cell count yesterday now it is elevated again (16.3). Her vitals are stable and she is afebrile. Overall she appears clinically stable and there is resolved erythema and edema to the right foot including the surgical sites. Intraoperatively after the amputation was performed there were no signs of infection, necrosis or devitalized tissue. There was healthy bleeding tissue noted as well. Preoperative wound cultures demonstrated multiorganism growth including MRSA and even prior Enterococcus faecalis. Blood cultures with MRSA bacterial growth noted. Intraoperative microbiology and pathology specimens were sent. After copious irrigation, clearance fragments were sent to microbiology and pathology as well. She continues on broad-spectrum IV antibiotics (vancomycin and Zosyn). Postoperative x-rays were reviewed yesterday which demonstrated adequate amputation without acute injuries, soft tissue emphysema, or foreign body retention or adjacent osseous destruction. Infectious disease on consultation and is greatly appreciated. Dressing: Changed this morning with Betadine and Adaptic to both sites with additional gauze and Kerlix Offload: Continue surgical shoe. To hang ankle and foot over stacked blankets or pillows to float the ulcer and surgical site in the air to avoid direct pressure to these fragile sites. Vascular: Recent abdominal pelvic arteriogram with recent intervention with Dr. Wilson this past 10/05/2020 which included angioplasties of the proximal and di stal anterior tibial artery with additional balloon placement. Edema: Continue Colten wrap application and applied to leg this morning Pain: Controlled secondary to neuropathy Host factors: Her diabetes with neuropathy is noted (A1c that was last checked was actually 6.1%), chronic kidney disease and other comorbidities that are contributing to her delayed healing. Medical management per hospitalist services greatly appreciated and noted. I also recommend nutritional supplementation optimize healing and this is been ordered. DVT prophylaxis: SCD contralateral limb and it is also okay to restart any additional prophylactic medication from a surgical standpoint. I answered all the patient's questions. This case was briefly discussed with hospitalist this morning, Dr. Nj. Additional diagnostic tests and workup noted. I will follow her closely while in house. Please do not hesitate to call if you have any questions. Moriah Bernal DPM, [facility] [phone]
[2020-11-03 13:01] LABS: Bedside Glucose 304 mg/dL (70-110)
--- NOTE | 2020-11-03 13:57 | PCM.PN.HOSP ---
Documented by User: Anabel Storey NP, FREELANCE DESIGNER-C 11/03/20 14:08 Subjective Subjective Patient seen and examined. Denies significant shortness of breath however appears dyspneic at rest. Denies cough, fever, chills. Denies pain. Objective Data Objective Data Vital Signs: Vital Signs Temp Pulse Resp BP Pulse Ox 98.4 F 64 20 H 149/60 H 91 11/03/20 08:37 11/03/20 12:00 11/03/20 08:37 11/03/20 08:37 11/03/20 10:41 Oxygen Flow Rate (L/min) 14 Oxygen Delivery Method Nasal Cannula Weight: 151 lb 3.794 oz Body Mass Index (BMI) 26.4 Intake & Output: Intake and Output for Last 24 Hours 11/01/20 11/02/20 11/03/20 23:59 23:59 23:59 Intake Total 1635 / 1635 1909.33 / 1909.33 350 / 350 Output Total 1000 / 1000 400 / 400 Balance 1635 / 1635 909.33 / 909.33 -50 / -50 Medical Nutrition Assessment Dietitian: Nutrition Therapy Diagnosis Start: 11/02/20 13:02 Freq: Status: Active Protocol: Document 11/02/20 12:42 AG (Rec: 11/02/20 13:43 AG [id number]) Nutrition Malnutrition Evidence of Malnutrition Exists No Intake Problem Increased Nutrient Needs (specify) Etiology (protein) r/t nonhealing wounds Signs/Symptoms as evidenced by R maleolus and R great toe/foot wound Status Active Problem Recommendation Dietitian Recommendations/Changes 1600 calorie controlled diet when medically indicated; Maciej BID for wound healing when indicated. Lab / Micro Data Result Diagrams: 11/03/20 06:25 11/03/20 06:25 Labs: Laboratory Results - last 24 hr 11/02/20 16:18: POC Glucose 135 H 11/02/20 22:45: POC Glucose 390 H 11/02/20 22:48: POC Glucose 343 H 11/03/20 06:25: WBC 16.3 H, RBC 3.78 L, Hgb 11.1 L, Hct 35.3 L, MCV 93.4, MCH 29.4, MCHC 31.4 L, RDW Std Deviation 48.0 H, RDW Coeff of Monique 14.3, Plt Count 241, MPV 10.2, Immature Gran % (Auto) 0.700, Neut % (Auto) 77.0 H, Lymph % (Auto) 10.2 L, [place] % (Auto) 9.2, Eos % (Auto) 2.6, Baso % (Auto) 0.3, Absolute Neuts (auto) 12.5 H, Absolute Lymphs (auto) 1.66, Nucleated RBC % 0 11/03/20 06:25: Sodium 135 L, Potassium 4.6, Chloride 107, Carbon Dioxide 22.0, Anion Gap 6, BUN 36 H, Creatinine 1.41 H, Estim Creat Clear Calc 27.94, Est GFR (MDRD) Af Amer 46 L, Est GFR (MDRD) Non-Af 38 L, BUN/Creatinine Ratio 25.5 H, Glucose 213 H, Calcium 8.8 11/03/20 06:41: POC Glucose 174 H 11/03/20 10:45: COVID-19 (KONRAD) Not Detected 11/03/20 12:50: POC Glucose 304 H Micro: Microbiology 11/02/20 Unknown Bone - Toe Wound Culture - Preliminary No growth-Final to follow 11/02/20 Unknown Bone - Toe Wound Culture - Preliminary Staphylococcus aureus 11/01/20 16:25 Blood Culture (Wb) - Left Hand Blood Culture - Preliminary 11/01/20 16:18 Blood Culture (Wb) - Anticubital Left Bacteria Detection (PCR) - Final Meth. resistant Staph. aureus 11/01/20 16:18 Blood Culture (Wb) - Anticubital Left Blood Culture - Preliminary Meth. resistant Staph. aureus 11/02/20 09:38 Mucosa - Nasopharyngeal SARS-CoV-2 Antigen (Rapid) - Final Radiography Diagnostic Testing: Radiology Impression Toe X-Ray 11/02/20 12:00 Chest X-Ray 11/02/20 16:19 IMPRESSION: Increasing ill-defined patchy and hazy bilateral pulmonary opacities, worse in the mid left lung. Electronically Signed: Demian Shrestha MD at 17:23 EDT , Service support , Chest CT 11/03/20 08:46 IMPRESSION: 1. Pneumonia in both lungs, partial consolidation with air bronchograms in the posterior lung bases and multifocal nonspecific groundglass capacities in the upper lobes. 2. Limited study due to extensive breathing motion artifacts. 3. Moderate bilateral posterior pleural fluid, left more than right. Electronically Signed: Lars Moss MD at 9:36 EDT , Service support , Physical Exam Const alert, oriented x3 and no apparent distress Orientation / Consciousness: awake, oriented to person, oriented to place and oriented to time HEENT normocephalic and moist oral mucous membranes Eyes PERRL, EOMs intact bilaterally and conjunctivae normal Neck no lymphadenopathy Resp Resp Narrative: Appears tachypneic Auscultation: crackles bilateral base Cardio regular rate, regular rhythm and no murmurs Peripheral Pulses: pulses 2+ throughout GI normal to inspection, nondistended, normoactive bowel sounds, non-tender and non-distended Extremity normal to inspection Skin no rashes or lesions noted Skin Narrative: Right foot postoperative dressing intact. Lesions: no lesions Rashes: no rashes Trauma: no lacerations or abrasions Neuro CN's II-XII intact bilaterally, no focal motor deficits, no sensory deficits noted and deep tendon reflexes 2+ bilaterally Psych mental status grossly normal and affect normal Assessment & Plan Assessment/Plan (1) Severe sepsis with acute organ dysfunction: PLAN: 1. Acute severe sepsis with organ dysfunction secondary to acute right lower extremity great toe and lateral ankle infected diabetic wound with associated right great toe acute osteomyelitis, complicated by underlying charcot foot-podiatry following. 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 IV vancomycin and IV Zosyn. ID and podiatry following. Postoperative cultures pending. Wound RN consult. PT/OT. 2. Acute hypoxic respiratory failure secondary to acute on chronic heart failure with preserved ejection fraction-echocardiogram November 2017 demonstrated an EF of 65%, stage II diastolic dysfunction, mild to moderate aortic stenosis. IV Lasix. Repeat echocardiogram. CT of chest appears consistent with failure. Enzymes series ordered. Obtain ABG. 3. Type 2 diabetes [id number] with sliding scale insulin. Oral regimen on hold. Hemoglobin A1c 6.2%. 4. Chronic kidney disease stage IIIa-stable, trend BMP. 5. CAD with history of CABG-continue aspirin, atenolol, Lasix, lisinopril. 6. PVD/PAD-history of recent angioplasty. Continue aspirin. Continue outpatient follow-up with vascular surgery. 7. Hyperlipidemia-statin allergy. 8. Hypertension-stable, continue current regimen. DVT prophylaxis-SCDs, heparin subcu This patient was seen by SABR[facility] under the supervision of Dr. Nj. Documented by User: Dr. Jillian Nj DO 11/03/20 14:52 Subjective Subjective This patient was seen in conjunction with Anabel Storey NP. The following represents my independent history and physical examination. Please see below for addendum. Patient had some respiratory distress overnight and is now on increased supplemental oxygen. She is not O2 dependent at home. She has diuresed well thus far. Patient denies significant respiratory distress although she appears to be tachypneic and has dyspnea with conversation. Objective Data Lab / Micro Data Result Diagrams: 11/03/20 06:25 11/03/20 06:25 Physical Exam Const alert, oriented x3 and no apparent distress Constitutional Narrative: Elderly white female sitting up in bed, nursing at bedside, some mild respiratory distress patient denies any significant Exam Limitations: no limitations Nutritional Appearance: overweight HEENT head/scalp atraumatic Head and Scalp: normocephalic Eyes PERRL, EOMs intact bilaterally and conjunctivae normal Neck no lymphadenopathy and supple Neck Narrative: Trachea midline Resp no retractions and no use of accessory muscles Resp Narrative: Bibasilar crackles, dyspnea with conversation and at rest Auscultation: crackles; Negative for rales, rhonchi or wheezes Cardio regular rate, regular rhythm, S1 normal heart sound, S2 normal heart sound, no rub, no gallops, no clicks and no JVD; Negative for no murmurs Cardio Narrative: 3 out of 6 systolic murmur noted GI normal to inspection, nondistended, normoactive bowel sounds, soft to palpation, non-tender and non-distended Extremity no clubbing, cyanosis or edema Extremity Narrative: Right distal lower extremity with dressing in place Peripheral Pulses: Yes pulses 2+ throughout Skin no rashes or lesions noted, no wounds, skin turgor normal, no jaundice, no petechiae and no mottling Neuro oriented x3, CN's II-XII intact bilaterally, moves all extremities and no focal motor deficits Neuro Narrative: Peripheral neuropathy Sensorium / Orientation: awake and alert Speech: speech normal Psych affect normal Assessment & Plan Assessment/Plan (1) Osteomyelitis of great toe of right foot: (2) Acute respiratory failure with hypoxia: PLAN: Assessment: Acute severe sepsis with organ dysfunction secondary to acute right great toe and lateral ankle infected diabetic foot wound/OM Acute hypoxic respiratory failure Mild to moderate aortic stenosis Leukocytosis Lactic acidosis ALEISHA on CKD stage IIIa Anemia-acute -Suspect dilutional related to fluid replacement [id number] CAD status post CABG PVD/PAD Hyperlipidemia Hypertension Vitamin D deficiency Plan: -Await ID recommendations for antibiotics -Lasix given will repeat dose this evening -CT shows bilateral groundglass appearance -Covid negative rapid and PCR -Echo pending -Increase lisinopril to 30 mg daily -Cardiac enzymes cycled -Check BNP Charges/Coding Visit Charges Inpatient E&M: 39024 [facility] Hosp L3
[2020-11-03 15:01] LABS: Allen Test Positive; Base Excess -4 mmol/L (-2 to +2); Bicarbonate 19.9 mmol/L (22-26); Blood Gas Specimen Type ART; O2 Delivery Device Cannula; PO2 53 mmHG (75-100); SITE R Radial; SO2 89 % (95-99); Total Carbon Dioxide 21 mmol/L; pCO2 29.6 mmHg (35-45); pH 7.44 (7.35-7.45)
--- NOTE | 2020-11-03 15:07 | NURSING ---
PSN in room to obtain ABG, pt's breathing noted to be more labored at this time. Remains on 14L NC, sats low 90's. Page sent to Dr Nj with update. New order received for BiPap. PSN in room now to place pt on unit. Sats currently 95% on 14L NC. Family at bedside.
[2020-11-03 15:12] LABS: Troponin-I HS 28.8 pg/mL (3.0-53.7)
--- NOTE | 2020-11-03 15:29 | PCM.PN.ID ---
Physical Exam Narrative Feeling better, no fever, no new joint pain Const alert General Appearance: cooperative Resp normal air movement and clear to auscultation bilaterally Cardio regular rate and regular rhythm Heart Sounds: murmur GI normal to inspection, nondistended, normoactive bowel sounds Skin Skin Narrative: leg wrapped ID ID: Route of nutrition/ use of supplements: [] Nutritional Intake: [] IV Site: [] Mosher Catheter: [] Assessment & Plan Assessment/Plan (1) Osteomyelitis of great toe of right foot: PLAN: Complicated by MRSA bacteremia per pcr. Will check repeat bcx and TTE. OR 11/[address] Bernal, on vanc/zosyn. Cx pending. Encouraged her to get covid vaccine. Will follow (2) Cellulitis of foot, right: (3) Type 2 diabetes mellitus with diabetic polyneuropathy: QUALIFIERS: Diabetes mellitus termite inspector insulin use: unspecified termite inspector insulin use status Qualified Code(s): E11.42 - Type 2 diabetes mellitus with diabetic polyneuropathy
[2020-11-03 17:05] LABS: Troponin-I HS 26.8 pg/mL (3.0-53.7)
[2020-11-03 17:21] LABS: Vancomycin, Trough Level 15.8 ug/mL (5.0-15.0)
[2020-11-03] MEDS: Heparin Injection (Vial) 5,000 UNIT/ML VIAL 5000 UNIT SC ×2 (17:35→22:28)
[2020-11-03] MEDS: Vancomycin IV 500 MG/100 ML BAG 100 MG IV (17:49)
[2020-11-03 18:00] LABS: Bedside Glucose 342 mg/dL (70-110)
--- NOTE | 2020-11-03 18:46 | PCM.RX.CS ---
Consult Pharmacy has been consulted to manage selected antiobiotic: Vancomycin Type of Consult: Follow-up Labs: Sodium 135 mmol/L (136-145) L 11/03/20 06:25 Potassium 4.6 mmol/L (3.5-5.1) 11/03/20 06:25 Chloride 107 mmol/L (98-107) 11/03/20 06:25 Carbon Dioxide 22.0 mmol/L (21.0-32.0) 11/03/20 06:25 Anion Gap 6 (5-15) 11/03/20 06:25 BUN 36 mg/dL (7-18) H 11/03/20 06:25 Creatinine 1.41 mg/dL (0.55-1.02) H 11/03/20 06:25 Est GFR (MDRD) Af Amer 46 mL/min (>60) L 11/03/20 06:25 Est GFR (MDRD) Non-Af 38 mL/min (>60) L 11/03/20 06:25 BUN/Creatinine Ratio 25.5 RATIO (10-20) H 11/03/20 06:25 Glucose 213 mg/dL (74-106) H 11/03/20 06:25 Vancomycin Trough 15.8 ug/mL (5.0-15.0) H 11/03/20 16:19 Microbiology: Microbiology 11/02/20 Unknown Bone - Toe Gram Stain - Final 11/02/20 Unknown Bone - Toe Wound Culture - Preliminary Staphylococcus aureus 11/02/20 Unknown Bone - Toe Gram Stain - Final 11/02/20 Unknown Bone - Toe Wound Culture - Preliminary No growth-Final to follow 11/01/20 16:25 Blood Culture (Wb) - Left Hand Blood Culture - Preliminary 11/01/20 16:18 Blood Culture (Wb) - Anticubital Left Bacteria Detection (PCR) - Final Meth. resistant Staph. aureus 11/01/20 16:18 Blood Culture (Wb) - Anticubital Left Blood Culture - Preliminary Meth. resistant Staph. aureus 11/02/20 09:38 Mucosa - Nasopharyngeal SARS-CoV-2 Antigen (Rapid) - Final Goal Trough: 15-20 mcg/mL Pharmacy Plan for Drug Dosing: VANCOMYCIN LEVEL RECEIVED Current Vancomycin Dose: 500MG IV Q24H Number of Doses Received: 3 (2 PRIOR TO TROUGH DRAW) Vancomycin Level: 15.8 Hours Since Last Dose: ~22HR Renal Function: 1.41 Renal Function Trend: STABLE Lab/Micro: BCx growing MRSA, Bone Cx growing Staph (No sens data yet) Vancomycin Plan/Comments: Patient had a trough drawn which resulted in a value of 15.8 (drawn appropriately, goal 15-20). Patient is within goal range. Will continue the current dose and check a trough in another 2 days to assess dosing at that time. Pending Level: 11/05/20 @1630 Pharmacy Service will continue to monitor and adjust dosing as required.
[2020-11-03 22:12] LABS: Troponin-I HS 25.2 pg/mL (3.0-53.7)
[2020-11-03] MEDS: Acetaminophen 325 MG Tablet 650 MG PO (22:28)
[2020-11-03] MEDS: Temazepam 15 MG Capsule PO (22:28)
[2020-11-03 23:45] LABS: Bedside Glucose 456 mg/dL (70-110)
[2020-11-04] VITALS (17 sets, daily range): BP systolic 122–146; BP diastolic 45–61; PULSE 52–68; RESP 18–24; TEMP 36.3–37.9; O2SAT 92–99
[2020-11-04] MEDS: Insulin Lispro 100 UNIT/ML INSULN.PEN SC ×4 (06:38→21:56)
--- NOTE | 2020-11-04 06:57 | CPS ---
PT REFUSED BIPAP AFTER 7PM. IT HURT HER FOREHEAD AND HER NOSE AND STUFFED UP HER NOSE BADLY. PT TOLERATED VENTURI MASK WELL.
[2020-11-04 07:06] LABS: Bedside Glucose 194 mg/dL (70-110)
--- NOTE | 2020-11-04 07:47 | PCM.PROGNOTE ---
Subjective Subjective This 79-year-old female with multiple comorbidities was seen bedside this morning postoperative day #2 right hallux amputation and lateral right ankle ulcer debridement secondary to cellulitis and sepsis. She denies fever, chill, nausea, vomiting. Her foot and ankle pain is unchanged and overall controlled. Objective Data Objective Data Vital Signs: Vital Signs Temp Pulse Resp BP Pulse Ox 98.3 F 55 L 20 H 133/45 H 99 11/04/20 04:30 11/04/20 06:59 11/04/20 04:30 11/04/20 04:30 11/04/20 04:30 Oxygen Flow Rate (L/min) 13 Oxygen Delivery Method Simple Mask Weight: 68.6 kg Body Mass Index (BMI) 26.4 Intake & Output: Intake and Output for Last 24 Hours 11/02/20 11/03/20 11/04/20 23:59 23:59 23:59 Intake Total 1909.33 / 1909.33 1150 / 1150 50 / 50 Output Total 1000 / 1000 1600 / 1600 250 / 250 Balance 909.33 / 909.33 -450 / -450 -200 / -200 Medical Nutrition Assessment Dietitian: Nutrition Therapy Diagnosis Start: 11/02/20 13:02 Freq: Status: Active Protocol: Document 11/02/20 12:42 AG (Rec: 11/02/20 13:43 AG [id number]) Nutrition Malnutrition Evidence of Malnutrition Exists No Intake Problem Increased Nutrient Needs (specify) Etiology (protein) r/t nonhealing wounds Signs/Symptoms as evidenced by R maleolus and R great toe/foot wound Status Active Problem Recommendation Dietitian Recommendations/Changes 1600 calorie controlled diet when medically indicated; Maciej BID for wound healing when indicated. Lab / Micro Data Result Diagrams: 11/03/20 06:25 11/03/20 06:25 Labs: Laboratory Results - last 24 hr 11/03/20 10:45: COVID-19 (KONRAD) Not Detected 11/03/20 12:50: POC Glucose 304 H 11/03/20 14:30: Troponin I High Sens 28.8 11/03/20 16:19: Vancomycin Trough 15.8 H 11/03/20 16:19: Troponin I High Sens 26.8 11/03/20 17:31: POC Glucose 342 H 11/03/20 20:30: Troponin I High Sens 25.2 11/03/20 22:31: POC Glucose 456 H* 11/04/20 06:37: POC Glucose 194 H Micro: Microbiology 11/01/20 16:18 Blood Culture (Wb) - Anticubital Left Bacteria Detection (PCR) - Final Meth. resistant Staph. aureus 11/01/20 16:18 Blood Culture (Wb) - Anticubital Left Blood Culture - Final Meth. resistant Staph. aureus 11/01/20 16:25 Blood Culture (Wb) - Left Hand Blood Culture - Preliminary 11/02/20 Unknown Bone - Toe Gram Stain - Final 11/02/20 Unknown Bone - Toe Wound Culture - Preliminary Staphylococcus aureus 11/02/20 Unknown Bone - Toe Gram Stain - Final 11/02/20 Unknown Bone - Toe Wound Culture - Preliminary No growth-Final to follow 11/02/20 09:38 Mucosa - Nasopharyngeal SARS-CoV-2 Antigen (Rapid) - Final ABG Data ABG results: ABG 11/03/20 14:55 Specimen Type ART Sample Site R Radial pH 7.44 Bicarbonate Actual 19.9 L Total CO2 21 Base Excess -4 L O2 Saturation 89 L ABG pCO2 29.6 L ABG pO2 53 L Gunnar Test Positive O2 Delivery Device Cannula Liter Flow 14.0 Radiography Diagnostic Testing: Radiology Impression Chest CT 11/03/20 08:46 IMPRESSION: 1. Pneumonia in both lungs, partial consolidation with air bronchograms in the posterior lung bases and multifocal nonspecific groundglass capacities in the upper lobes. 2. Limited study due to extensive breathing motion artifacts. 3. Moderate bilateral posterior pleural fluid, left more than right. Electronically Signed: Lars Moss MD at 9:36 EDT , Service support , Echocardiogram 11/03/20 08:47 Interpretation Summary The study was technically difficult. Contrast injection was performed. Left ventricular systolic function is normal. The estimated ejection fraction is 55 %. Mild concentric left ventricular hypertrophy. The left atrium is mildly enlarged. There is mild mitral annular calcification. Extension of the mitral annular calcification onto the posterior mitral valve leaflet. The mitral papillary muscle appears thickened and/or calcified. Mild mitral valve stenosis. Mild (1+) mitral valve insufficiency. Mild to moderate (1-2+) tricuspid valve insufficiency. The aortic valve was not well visualized, however, based upon the 2D echocardiographic images obtained there appears to be thickening and calcification and partial restriction of the aortic valve leaflets. Mild to moderate aortic stenosis. Right ventricular systolic pressure estimated to be 51 mmHg. Transmitral diastolic flow velocities suggest diastolic dysfunction (pseudonormal pattern). Ordering Physician: Anabel Storey Referring Physician: Kelsy Mensah Performed By: Miki Valles RCS Physical Exam Const alert and oriented x3 General Appearance: cooperative HEENT normocephalic Extremity Extremity Narrative: No calf tenderness Diminished pulses Muscle wasting noted lower extremity edema noted negative navas and everton sign right Compartments of the right lower extremity remain soft to palpate General Extremity: edema and no tenderness to palpation of joints or extremities; Negative for cyanosis Skin Skin Narrative: Her skin is very hairless and atrophic. Status post hallux amputation is well aligned with sutures intact without eschar or tony necrosis. Capillary refill time next to both amputation borders are less than 3 seconds and this will be monitored for continued viability. Minimal dusky progression to distal most aspect. There is no gapping or maceration. Her erythema and edema to the foot have completely resolved. There is no purulence on expression. The lateral right ankle ulcer that was debrided is also healthy with granular and less than 25% fibrous base. There is no exposed bone or tendon nor is there any odor or local signs of infection to the site. minimal discomfort to palpate the surgical sites. General Skin Exam: Negative for erythema Neuro Neuro Narrative: lack of normal epicritic sensation via light touch is consistent with neuropathy status Psych cooperative and affect normal Assessment & Plan Assessment/Plan (1) Severe sepsis with acute organ dysfunction: (2) Osteomyelitis of great toe of right foot: (3) Cellulitis of foot, right: (4) Delayed wound healing: (5) Type 2 diabetes mellitus with diabetic polyneuropathy: QUALIFIERS: Diabetes mellitus termite treater helper insulin use: unspecified skilled nursing insulin use status Qualified Code(s): E11.42 - Type 2 diabetes mellitus with diabetic polyneuropathy (6) Ulcer of right lower extremity with muscle involvement without evidence of necrosis: PLAN: I reviewed and discussed her case this morning. The following work up and care recommendations were made: Infection: Ongoing leukocytosis noted. Her vitals are stable and she is afebrile. Overall she appears clinically stable and there is resolved erythema and edema to the right foot including the surgical sites. Intraoperatively after the amputation was performed there were no signs of infection, necrosis or devitalized tissue. There was healthy bleeding tissue noted as well. Preoperative wound cultures demonstrated multiorganism growth including MRSA and even prior Enterococcus faecalis. Blood cultures with MRSA bacterial growth noted. Intraoperative microbiology and pathology specimens were sent including clearance fragment (no growth so far). After copious irrigation, clearance fragments were sent to microbiology and pathology as well. She continues on broad-spectrum IV antibiotics (vancomycin and Zosyn). Postoperative x-rays were reviewed yesterday which demonstrated adequate amputation without acute injuries, soft tissue emphysema, or foreign body retention or adjacent osseous destruction. Infectious disease on consultation and is greatly appreciated. Dressing: Changed this morning with Betadine and Adaptic to both sites with additional gauze and Kerlix Offload: Continue surgical shoe. To float ankle and foot over stacked blankets or pillows to float the ulcer and surgical site in the air to avoid direct pressure to these fragile sites. Vascular: Recent abdominal pelvic arteriogram with recent intervention with Dr. Wilson this past 10/05/2020 which included angioplasties of the proximal and distal anterior tibial artery with additional balloon placement. Edema: Continue Colten wrap application and applied to leg this morning Pain: Controlled secondary to neuropathy Host factors: Her diabetes with neuropathy is noted (A1c that was last checked was actually 6.1%), chronic kidney disease and other comorbidities that are contributing to her delayed healing. Medical management per hospitalist services greatly appreciated and noted. I also recommend nutritional supplementation optimize healing and this is been ordered. DVT prophylaxis: SCD contralateral limb and it is also okay to restart any additional prophylactic medication from a surgical standpoint. I answered all the patient's questions. Ok to d/c from a surgical standpoint. It is noted she is still in treatment for bacteremia and cultures are still pending. Updated echo with 55% EF noted. I will follow her closely while in house. Please do not hesitate to call if you have any questions. Moriah Bernal DPM, [facility] [phone]
[2020-11-04] MEDS: Aspirin 81 MG TAB.CHEW PO (08:06)
[2020-11-04] MEDS: Multivitamins,Therapeutic Tablet 1 TABLET PO (08:06)
[2020-11-04 08:52] LABS: Absolute Neutrophil Count 7.9 X10^3/uL (2.0-7.7); Basophil# 0.04 X10^3/uL; Basophil% 0.4 % (0-1); Eosinophil# 0.38 X10^3/uL; Eosinophils% 3.4 % (0-5); Hematocrit 29.8 % (37-47); Hemoglobin 9.6 g/dL (12.0-15.0); Lymphocyte % 15.1 % (19-41); Mean Corp Hgb Conc 32.2 g/dL (32-36); Mean Corpuscular Hgb 29.6 pg (27.0-32.0); Mean Platelet Vol. 10.4 fl (6.2-12.0); Monocyte# 1.13 X10^3/uL; Monocyte% 10.1 % (0-10); NRBC Flagged by Analyzer 0 % (0-5); Neutrophil % 70.2 % (47-70); Platelet Count 196 K/mm3 (150-450); RBC Distribution Width CV 14.3 % (11.6-14.6); Red Blood Count 3.24 M/mm3 (4.2-5.4); White Blood Count 11.2 K/mm3 (4.4-11.0)
[2020-11-04 09:14] LABS: Anion Gap 6 (5-15); BUN 46 mg/dL (7-18); BUN/Creat Ratio 28.6 RATIO (10-20); Calcium,Total 8.9 mg/dL (8.5-10.1); Chloride 105 mmol/L (98-107); Creatinine, Serum 1.61 mg/dL (0.55-1.02); EST Glomerular Filtration Rate 33 mL/min (>60); Est Glom Filt Rate - Afr Amer 40 mL/min (>60); Estimated Creatinine Clearance 24.47 ml/min; Glucose 179 mg/dL (74-106); Sodium Level 133 mmol/L (136-145)
[2020-11-04 09:29] LABS: BNP,B-Type NATRIURETIC PEPTIDE 621.7 pg/mL (0-100)
[2020-11-04] MEDS: Heparin Injection (Vial) 5,000 UNIT/ML VIAL 5000 UNIT SC ×2 (09:48→21:34)
[2020-11-04] MEDS: Furosemide 40 MG/4 ML Vial IV (09:49)
[2020-11-04] MEDS: Magnesium Chloride 64 MG Delay Rel.Tablet 128 MG PO (09:49)
[2020-11-04] MEDS: Ascorbic Acid 500 MG Tablet PO (09:50)
[2020-11-04] MEDS: Cholecalciferol (VIT D3) 25 MCG TABLET (1,000 UNITS) PO (09:50)
[2020-11-04] MEDS: Atenolol 50 MG Tablet PO ×2 (09:50→21:34)
[2020-11-04] MEDS: amLODIPine 10 MG Tablet PO (09:51)
[2020-11-04] MEDS: Cyanocobalamin 500 MCG Tablet 1000 MCG PO (09:51)
[2020-11-04] MEDS: Lisinopril 10 MG Tablet 30 MG PO (09:52)
[2020-11-04 11:46] LABS: Bedside Glucose 232 mg/dL (70-110)
--- NOTE | 2020-11-04 11:47 | PN.HOSP_ITS ---
Documented by User: Anabel Storey NP, [employer] 11/04/20 11:56 Subjective Subjective Patient seen and examined. Reports she feels improved today, reports improvement in breathing. Denies fever, chills. Denies pain. Objective Data Objective Data Vital Signs: Vital Signs Temp Pulse Resp BP Pulse Ox 98.0 F 60 20 H 129/47 H 98 11/04/20 10:17 11/04/20 10:17 11/04/20 10:17 11/04/20 10:17 11/04/20 10:17 Oxygen Flow Rate (L/min) 8 Oxygen Delivery Method Nasal Cannula Weight: 165 lb 2.02 oz Body Mass Index (BMI) 26.4 Intake & Output: Intake and Output for Last 24 Hours 11/02/20 11/03/20 11/04/20 23:59 23:59 23:59 Intake Total 1909.33 / 1909.33 1150 / 1150 50 / 50 Output Total 1000 / 1000 1600 / 1600 250 / 250 Balance 909.33 / 909.33 -450 / -450 -200 / -200 Medical Nutrition Assessment Dietitian: Nutrition Therapy Diagnosis Start: 11/02/20 13:02 Freq: Status: Active Protocol: Document 11/02/20 12:42 AG (Rec: 11/02/20 13:43 AG [id number]) Nutrition Malnutrition Evidence of Malnutrition Exists No Intake Problem Increased Nutrient Needs (specify) Etiology (protein) r/t nonhealing wounds Signs/Symptoms as evidenced by R maleolus and R great toe/foot wound Status Active Problem Recommendation Dietitian Recommendations/Changes 1600 calorie controlled diet when medically indicated; Maciej BID for wound healing when indicated. Lab / Micro Data Result Diagrams: 11/04/20 08:28 11/04/20 08:28 Labs: Laboratory Results - last 24 hr 11/03/20 10:45: COVID-19 ([facility]RAD) Not Detected 11/03/20 12:50: POC Glucose 304 H 11/03/20 14:30: Troponin I High Sens 28.8 11/03/20 16:19: Vancomycin Trough 15.8 H 11/03/20 16:19: Troponin I High Sens 26.8 11/03/20 17:31: POC Glucose 342 H 11/03/20 20:30: Troponin I High Sens 25.2 11/03/20 22:31: POC Glucose 456 H* 11/04/20 06:37: POC Glucose 194 H 11/04/20 08:28: WBC 11.2 H, RBC 3.24 L, Hgb 9.6 L, Hct 29.8 L, MCV 92.0, MCH 29.6, MCHC 32.2, RDW Std Deviation 48.0 H, RDW Coeff of Monique 14.3, Plt Count 196, MPV 10.4, Immature Gran % (Auto) 0.800, Neut % (Auto) 70.2 H, Lymph % (Auto) 15.1 L, [place] % (Auto) 10.1 H, Eos % (Auto) 3.4, Baso % (Auto) 0.4, Absolute Neuts (auto) 7.9 H, Absolute Lymphs (auto) 1.70, Nucleated RBC % 0 11/04/20 08:28: Sodium 133 L, Potassium 4.0, Chloride 105, Carbon Dioxide 22.0, Anion Gap 6, BUN 46 H, Creatinine 1.61 H, Estim Creat Clear Calc 24.47, Est GFR (MDRD) Af Amer 40 L, Est GFR (MDRD) Non-Af 33 L, BUN/Creatinine Ratio 28.6 H, Glucose 179 H, Calcium 8.9 11/04/20 08:28: B-Natriuretic Peptide 621.7 H 11/04/20 11:40: POC Glucose 232 H Micro: Microbiology 11/02/20 Unknown Bone - Toe Gram Stain - Final 11/02/20 Unknown Bone - Toe Wound Culture - Final Meth. resistant Staph. aureus 11/01/20 16:18 Blood Culture (Wb) - Anticubital Left Bacteria Detection (PCR) - Final Meth. resistant Staph. aureus 11/01/20 16:18 Blood Culture (Wb) - Anticubital Left Blood Culture - Final Meth. resistant Staph. aureus 11/01/20 16:25 Blood Culture (Wb) - Left Hand Blood Culture - Preliminary 11/02/20 Unknown Bone - Toe Gram Stain - Final 11/02/20 Unknown Bone - Toe Wound Culture - Preliminary No growth-Final to follow 11/02/20 09:38 Mucosa - Nasopharyngeal SARS-CoV-2 Antigen (Rapid) - Final ABG Data ABG results: ABG 11/03/20 14:55 Specimen Type ART Sample Site R Radial pH 7.44 Bicarbonate Actual 19.9 L Total CO2 21 Base Excess -4 L O2 Saturation 89 L ABG pCO2 29.6 L ABG pO2 53 L Gunnar Test Positive O2 Delivery Device Cannula Liter Flow 14.0 Radiography Diagnostic Testing: Radiology Impression Echocardiogram 11/03/20 08:47 Interpretation Summary The study was technically difficult. Contrast injection was performed. Left ventricular systolic function is normal. The estimated ejection fraction is 55 %. Mild concentric left ventricular hypertrophy. The left atrium is mildly enlarged. There is mild mitral annular calcification. Extension of the mitral annular calcification onto the posterior mitral valve leaflet. The mitral papillary muscle appears thickened and/or calcified. Mild mitral valve stenosis. Mild (1+) mitral valve insufficiency. Mild to moderate (1-2+) tricuspid valve insufficiency. The aortic valve was not well visualized, however, based upon the 2D echocardiographic images obtained there appears to be thickening and calcification and partial restriction of the aortic valve leaflets. Mild to moderate aortic stenosis. Right ventricular systolic pressure estimated to be 51 mmHg. Transmitral diastolic flow velocities suggest diastolic dysfunction (pseudonormal pattern). Ordering Physician: Anabel Storey Referring Physician: Kelsy Mensah Performed By: Miki Valles RCS Physical Exam Const alert, oriented x3 and no apparent distress Orientation / Consciousness: awake, oriented to person, oriented to place and oriented to time HEENT normocephalic and moist oral mucous membranes Eyes PERRL, EOMs intact bilaterally and conjunctivae normal Neck no lymphadenopathy Resp clear to auscultation bilaterally Auscultation: diminished lung sounds Cardio regular rate, regular rhythm and no murmurs Peripheral Pulses: pulses 2+ throughout GI normal to inspection, nondistended, normoactive bowel sounds, non-tender and non-distended Extremity normal to inspection Skin no rashes or lesions noted Skin Narrative: Right foot postoperative dressing intact. Lesions: no lesions Rashes: no rashes Trauma: no lacerations or abrasions Neuro CN's II-XII intact bilaterally, no focal motor deficits, no sensory deficits noted and deep tendon reflexes 2+ bilaterally Psych mental status grossly normal and affect normal Assessment & Plan Assessment/Plan (1) Severe sepsis with acute organ dysfunction: PLAN: 1. Acute severe sepsis with organ dysfunction secondary to acute right lower extremity great toe and lateral ankle infected diabetic wound with associated right great toe acute osteomyelitis, complicated by MRSA bacteremia- underlying charcot foot. Podiatry following. 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 IV vancomycin and IV Zosyn. ID and podiatry following. Postoperative cultures pending. Wound RN consult. PT/OT. Bone culture of toe growing MRSA. Blood culture positive MRSA. Repeat cultures pending. Echo completed with no noted growth. 2. Acute hypoxic respiratory failure secondary to acute on chronic heart failur e with preserved ejection fraction-BNP 621. Echocardiogram November 2017 demonstrated an EF of 65%, stage II diastolic dysfunction, mild to moderate aortic stenosis. IV Lasix. Repeat echocardiogram demonstrates an EF of 55%, mild mitral valve stenosis, mild to moderate tricuspid valve insufficiency, mild to moderate aortic stenosis, RVSP estimated be [address] of chest appears consistent with failure. Continue BiPAP nightly. 3. Type 2 diabetes [id number] with sliding scale insulin. Oral regimen on hold. Hemoglobin A1c 6.2%. 4. Chronic kidney disease stage IIIa-stable, trend BMP. 5. CAD with history of CABG-continue aspirin, atenolol, Lasix, lisinopril. 6. PVD/PAD-history of recent angioplasty. Continue aspirin. Continue outpatient follow-up with vascular surgery. 7. Hyperlipidemia-statin allergy. 8. Hypertension-stable, continue current regimen. DVT prophylaxis-SCDs, heparin subcu This patient was seen by KARUNA Oh under the supervision of Dr. Nj. Documented by User: Dr. Jillian Nj DO 11/04/20 16:00 Subjective Subjective This patient was seen in conjunction with Anabel Storey NP. The following is representation my independent history and physical examination. Please see below for any addendum to the above. Patient denies any issues at this time. Upon walking into the room she is off her oxygen and sats are 82% on room air. We quickly replaced her oxygen with nasal cannula and was 6 L she bumped up to 98%. She denies any subjective shortness of breath. Objective Data Lab / Micro Data Result Diagrams: 11/04/20 08:28 11/04/20 08:28 Physical Exam Const alert, oriented x3 and no apparent distress Constitutional Narrative: Elderly white female sitting up in bed eating breakfast, appears calm no dyspnea, no signs of respiratory distress, nontoxic Exam Limitations: no limitations HEENT moist oral mucous membranes and oropharynx normal Head and Scalp: normocephalic Mouth: oral and palatal mucosa normal Eyes PERRL, EOMs intact bilaterally and conjunctivae normal Neck no lymphadenopathy and supple Neck Narrative: Trachea midline Resp normal respiratory effort, no retractions and no use of accessory muscles Resp Narrative: Diminished bases bilaterally no crackles Auscultation: Negative for crackles, rales, rhonchi or wheezes Cardio regular rate, regular rhythm, S1 normal heart sound, S2 normal heart sound, no murmurs, no rub, no gallops, no clicks and no JVD GI normal to inspection, nondistended, normoactive bowel sounds, soft to palpation, non-tender and non-distended Extremity normal to inspection and no clubbing, cyanosis or edema Extremity Narrative: Trace bilateral lower extremity edema General Extremity: edema Peripheral Pulses: Yes pulses 2+ throughout Skin no rashes or lesions noted, no wounds, skin turgor normal, no jaundice, no petechiae and no mottling Neuro oriented x3, CN's II-XII intact bilaterally, moves all extremities and no focal motor deficits Neuro Narrative: Generalized weakness Sensorium / Orientation: awake and alert Speech: speech normal Psych affect normal Assessment & Plan Assessment/Plan (1) Severe sepsis with acute organ dysfunction: (2) Acute respiratory failure with hypoxia: (3) MRSA bacteremia: (4) Osteomyelitis of great toe of right foot: PLAN: Assessment: Acute severe sepsis with organ dysfunction secondary to acute right great toe and lateral ankle infected diabetic foot wound/OM Acute hypoxic respiratory failure MRSA bacteremia HFpEF-decompensated Atelectasis Mild to moderate aortic stenosis Leukocytosis Lactic acidosis ALEISHA on CKD stage IIIa Anemia-acute -Suspect dilutional related to fluid replacement [id number] CAD status post CABG PVD/PAD Hyperlipidemia Hypertension Vitamin D deficiency Plan: -BNP was elevated -We will continue diuresis reduced to 40 mg IV push daily -Respiratory status has improved -Echo showed a normal EF with LVH and right ventricular systolic pressure of 51 -Suspect the patient has untreated sleep apnea -Continue BiPAP as patient tolerates at night while hospitalized -Commend outpatient polysomnography -Continue antibiotics -Wean O2 as able--> patient has been weaned to 6 L today -No signs of valvular involvement with regards to MRSA bacteremia -Keep blood cultures are pending for clearance -Antibiotics per ID -May need PICC placement prior to discharge for long-term IV antibiotics Charges/Coding Visit Charges Inpatient E&M: [id number] [facility] L3
[2020-11-04] MEDS: 0.9% Saline Lock 10 ML Syringe IV (15:17)
[2020-11-04 16:45] LABS: Bedside Glucose 409 mg/dL (70-110)
[2020-11-04] MEDS: Vancomycin IV 500 MG/100 ML BAG 100 MG IV (18:37)
--- NOTE | 2020-11-04 18:55 | NURSING ---
Charting by student nurse Jeanette Rodriguez reviewed by this RN
--- NOTE | 2020-11-04 19:43 | CPS ---
Patient refusing BiPAP for tonight. Would like to wear ventri mask overnight. SENIOR ACCOUNT DIRECTOR explained to patient we can try this, but if her oxygen needs increase then BiPAP may be necessary. Patient understands and will wear BiPAP if needed.
[2020-11-04] MEDS: Temazepam 15 MG Capsule PO (21:34)
[2020-11-04] MEDS: Acetaminophen 325 MG Tablet 650 MG PO (21:34)
[2020-11-05] VITALS (13 sets, daily range): BP systolic 124–154; BP diastolic 50–62; PULSE 50–67; RESP 19–20; TEMP 36.5–37.1; O2SAT 92–99
[2020-11-05 06:36] LABS: Absolute Lymphocyte Count 1.73 X10^3/uL (0.83-4.51); Basophil# 0.04 X10^3/uL; Basophil% 0.4 % (0-1); Eosinophil# 0.42 X10^3/uL; Eosinophils% 4.7 % (0-5); Hematocrit 30.2 % (37-47); Hemoglobin 9.9 g/dL (12.0-15.0); Lymphocyte # 1.73 X10^3/ul (0.83-4.51); Lymphocyte % 19.2 % (19-41); Mean Corp Hgb Conc 32.8 g/dL (32-36); Mean Corpuscular Hgb 29.7 pg (27.0-32.0); Mean Corpuscular Volume 90.7 fL (81-99); Mean Platelet Vol. 10.4 fl (6.2-12.0); Monocyte# 0.79 X10^3/uL; Monocyte% 8.8 % (0-10); NRBC Flagged by Analyzer 0 % (0-5); Neutrophil # 5.95 X10^3/uL (2.7-7.7); Neutrophil % 65.9 % (47-70); Platelet Count 215 K/mm3 (150-450); RBC Distribution Width CV 14.3 % (11.6-14.6); Red Blood Count 3.33 M/mm3 (4.2-5.4)
[2020-11-05 07:07] LABS: Anion Gap 8 (5-15); BUN 43 mg/dL (7-18); BUN/Creat Ratio 24.4 RATIO (10-20); Calcium,Total 8.7 mg/dL (8.5-10.1); Chloride 105 mmol/L (98-107); Creatinine, Serum 1.76 mg/dL (0.55-1.02); EST Glomerular Filtration Rate 30 mL/min (>60); Est Glom Filt Rate - Afr Amer 36 mL/min (>60); Estimated Creatinine Clearance 22.38 ml/min; Glucose 189 mg/dL (74-106); Potassium 3.8 mmol/L (3.5-5.1); Sodium Level 135 mmol/L (136-145)
[2020-11-05 07:10] LABS: Bedside Glucose 474 mg/dL (70-110)
[2020-11-05 07:10] LABS: Bedside Glucose 476 mg/dL (70-110)
[2020-11-05] MEDS: Insulin Lispro 100 UNIT/ML INSULN.PEN SC ×4 (08:14→22:49)
[2020-11-05] MEDS: Insulin Lispro 100 UNIT/ML INSULN.PEN 15 UNIT SC (08:14)
[2020-11-05] MEDS: Aspirin 81 MG TAB.CHEW PO (08:25)
[2020-11-05] MEDS: Ascorbic Acid 500 MG Tablet PO (08:25)
[2020-11-05] MEDS: Cyanocobalamin 500 MCG Tablet 1000 MCG PO (08:25)
[2020-11-05] MEDS: Magnesium Chloride 64 MG Delay Rel.Tablet 128 MG PO (08:25)
[2020-11-05] MEDS: Multivitamins,Therapeutic Tablet 1 TABLET PO (08:25)
[2020-11-05] MEDS: Atenolol 50 MG Tablet PO ×2 (08:26→22:13)
[2020-11-05] MEDS: amLODIPine 10 MG Tablet PO (08:26)
[2020-11-05] MEDS: Cholecalciferol (VIT D3) 25 MCG TABLET (1,000 UNITS) PO (08:26)
[2020-11-05] MEDS: Heparin Injection (Vial) 5,000 UNIT/ML VIAL 5000 UNIT SC ×2 (08:27→22:12)
[2020-11-05] MEDS: Lisinopril 10 MG Tablet 30 MG PO (08:27)
[2020-11-05 10:36] LABS: Bedside Glucose 174 mg/dL (70-110)
--- NOTE | 2020-11-05 10:54 | PCM.PROGNOTE ---
Subjective Subjective This 79-year-old female with multiple comorbidities was seen bedside this morning postoperative day #3 right hallux amputation and lateral right ankle ulcer debridement secondary to cellulitis and sepsis. She denies fever, chill, nausea, vomiting. Denies foot pain. Objective Data Objective Data Vital Signs: Vital Signs Temp Pulse Resp BP Pulse Ox 98.4 F 57 L 19 H 154/61 H 92 11/05/20 08:20 11/05/20 08:20 11/05/20 08:20 11/05/20 08:20 11/05/20 10:40 Oxygen Flow Rate (L/min) 1 Oxygen Delivery Method Nasal Cannula Weight: 72.4 kg Body Mass Index (BMI) 26.4 Intake & Output: Intake and Output for Last 24 Hours 11/03/20 11/04/20 11/05/20 23:59 23:59 23:59 Intake Total 1150 / 1150 250 / 250 100 / 100 Output Total 1600 / 1600 1150 / 1150 450 / 450 Balance -450 / -450 -900 / -900 -350 / -350 Medical Nutrition Assessment Dietitian: Nutrition Therapy Diagnosis Start: 11/02/20 13:02 Freq: Status: Active Protocol: Document 11/02/20 12:42 AG (Rec: 11/02/20 13:43 AG [id number]) Nutrition Malnutrition Evidence of Malnutrition Exists No Intake Problem Increased Nutrient Needs (specify) Etiology (protein) r/t nonhealing wounds Signs/Symptoms as evidenced by R maleolus and R great toe/foot wound Status Active Problem Recommendation Dietitian Recommendations/Changes 1600 calorie controlled diet when medically indicated; Maciej BID for wound healing when indicated. Lab / Micro Data Result Diagrams: 11/05/20 05:18 11/05/20 05:18 Labs: Laboratory Results - last 24 hr 11/04/20 11:40: POC Glucose 232 H 11/04/20 16:16: POC Glucose 409 H 11/04/20 21:26: POC Glucose 474 H* 11/04/20 21:39: POC Glucose 476 H* 11/05/20 05:18: WBC 9.0, RBC 3.33 L, Hgb 9.9 L, Hct 30.2 L, MCV 90.7, MCH 29.7, MCHC 32.8, RDW Std Deviation 47.0 H, RDW Coeff of Monique 14.3, Plt Count 215, MPV 10.4, Immature Gran % (Auto) 1.000 H, Neut % (Auto) 65.9, Lymph % (Auto) 19.2, [place] % (Auto) 8.8, Eos % (Auto) 4.7, Baso % (Auto) 0.4, Absolute Neuts (auto) 6.0, Absolute Lymphs (auto) 1.73, Nucleated RBC % 0 11/05/20 05:18: Sodium 135 L, Potassium 3.8, Chloride 105, Carbon Dioxide 22.0, Anion Gap 8, BUN 43 H, Creatinine 1.76 H, Estim Creat Clear Calc 22.38, Est GFR (MDRD) Af Amer 36 L, Est GFR (MDRD) Non-Af 30 L, BUN/Creatinine Ratio 24.4 H, Glucose 189 H, Calcium 8.7 11/05/20 08:13: POC Glucose 174 H Micro: Microbiology 11/02/20 Unknown Bone - Toe Gram Stain - Final 11/02/20 Unknown Bone - Toe Wound Culture - Final No growth aerobically. 11/02/20 Unknown Bone - Toe Gram Stain - Final 11/02/20 Unknown Bone - Toe Wound Culture - Final Meth. resistant Staph. aureus 11/01/20 16:18 Blood Culture (Wb) - Anticubital Left Bacteria Detection (PCR) - Final Meth. resistant Staph. aureus 11/01/20 16:18 Blood Culture (Wb) - Anticubital Left Blood Culture - Final Meth. resistant Staph. aureus 11/01/20 16:25 Blood Culture (Wb) - Left Hand Blood Culture - Preliminary 11/02/20 09:38 Mucosa - Nasopharyngeal SARS-CoV-2 Antigen (Rapid) - Final Physical Exam Const alert and oriented x3 General Appearance: cooperative HEENT normocephalic Extremity Extremity Narrative: No calf tenderness Diminished pulses Muscle wasting noted lower extremity edema noted negative navas and everton sign right Compartments of the right lower extremity remain soft to palpate General Extremity: edema and no tenderness to palpation of joints or extremities; Negative for cyanosis Skin Skin Narrative: Her skin is very hairless and atrophic. Status post hallux amputation is well aligned with sutures intact without eschar or tony necrosis. Capillary refill time next to both amputation borders are less than 3 seconds and this will be monitored for continued viability. Minimal dusky progression to distal most aspect; unchanged from yesterday. There is no gapping or maceration. Her erythema and edema to the foot have completely resolved. There is no purulence on expression. The lateral right ankle ulcer that was debrided is also healthy with granular and less than 25% fibrous base. There is no exposed bone or tendon nor is there any odor or local signs of infection to the site. minimal discomfort to palpate the surgical sites. 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 The following work up and care recommendations were made: Infection: Cytosis resolved with white blood cell count 9.0 this morning. Her vitals are stable and she is afebrile. Overall she appears clinically stable and there is resolved erythema and edema to the right foot including the surgical sites. Intraoperatively after the amputation was performed there were no signs of infection, necrosis or devitalized tissue. There was healthy bleeding tissue noted as well. Preoperative wound cultures demonstrated multiorganism growth including MRSA and even prior Enterococcus faecalis. Blood cultures with MRSA bacterial growth noted. Repeat blood culture negative so far. Intraoperative microbiology and pathology specimens were sent including clearance fragment (no growth so far). After copious irrigation, clearance fragments were sent to microbiology and pathology as well. She continues on broad-spectrum IV antibiotics (vancomycin and Zosyn). Infectious disease on consultation and is greatly appreciated. Dressing: Changed this morning. To continue with dry dressing to the amputation site and Santyl nickel thickness and gauze to the lateral right ankle; order will be confirmed in computer. Offload: Continue surgical shoe. To float ankle and foot over stacked blankets or pillows to float the ulcer and surgical site in the air to avoid direct pressure to these fragile sites. Vascular: Recent abdominal pelvic arteriogram with recent intervention with Dr. Wilson this past 10/05/2020 which included angioplasties of the proximal and distal anterior tibial artery with additional balloon placement. Edema: Continue Colten wrap application and applied to leg this morning Pain: Controlled secondary to neuropathy Host factors: Her diabetes with neuropathy is noted (A1c that was last checked was actually 6.1%), chronic kidney disease and other comorbidities that are contributing to her delayed healing. Medical management per hospitalist services greatly appreciated and noted. I also recommend nutritional supplementation optimize healing and this is been ordered. DVT prophylaxis: SCD contralateral limb and it is also okay to restart any additional prophylactic medication from a surgical standpoint. I answered all the patient's questions. Ok to d/c from a surgical standpoint. It is noted she is still in treatment for bacteremia and cultures are still pending. Updated echo noted. I will follow her closely while in house. Please do not hesitate to call if you have any questions. Moriah Bernal DPM, FACFAS [facility] [phone]
--- NOTE | 2020-11-05 11:12 | PCM.PN.HOSP ---
Documented by User: Anabel Storey NP, CONTROL ROOM OPERATOR-C 11/05/20 11:23 Subjective Subjective Patient seen and examined. Continues to report improvement in breathing. Denies fever, chills. Denies other symptoms or complaints. Awaiting repeat blood cultures. Objective Data Objective Data Vital Signs: Vital Signs Temp Pulse Resp BP Pulse Ox 98.4 F 57 L 19 H 154/61 H 92 11/05/20 08:20 11/05/20 08:20 11/05/20 08:20 11/05/20 08:20 11/05/20 10:40 Oxygen Flow Rate (L/min) 1 Oxygen Delivery Method Nasal Cannula Weight: 159 lb 9.835 oz Body Mass Index (BMI) 26.4 Intake & Output: Intake and Output for Last 24 Hours 11/03/20 11/04/20 11/05/20 23:59 23:59 23:59 Intake Total 1150 / 1150 250 / 250 100 / 100 Output Total 1600 / 1600 1150 / 1150 450 / 450 Balance -450 / -450 -900 / -900 -350 / -350 Medical Nutrition Assessment Dietitian: Nutrition Therapy Diagnosis Start: 11/02/20 13:02 Freq: Status: Active Protocol: Document 11/02/20 12:42 AG (Rec: 11/02/20 13:43 AG [id number]) Nutrition Malnutrition Evidence of Malnutrition Exists No Intake Problem Increased Nutrient Needs (specify) Etiology (protein) r/t nonhealing wounds Signs/Symptoms as evidenced by R maleolus and R great toe/foot wound Status Active Problem Recommendation Dietitian Recommendations/Changes 1600 calorie controlled diet when medically indicated; Maciej BID for wound healing when indicated. Lab / Micro Data Result Diagrams: 11/05/20 05:18 11/05/20 05:18 Labs: Laboratory Results - last 24 hr 11/04/20 11:40: POC Glucose 232 H 11/04/20 16:16: POC Glucose 409 H 11/04/20 21:26: POC Glucose 474 H* 11/04/20 21:39: POC Glucose 476 H* 11/05/20 05:18: WBC 9.0, RBC 3.33 L, Hgb 9.9 L, Hct 30.2 L, MCV 90.7, MCH 29.7, MCHC 32.8, RDW Std Deviation 47.0 H, RDW Coeff of Monique 14.3, Plt Count 215, MPV 10.4, Immature Gran % (Auto) 1.000 H, Neut % (Auto) 65.9, Lymph % (Auto) 19.2, [place] % (Auto) 8.8, Eos % (Auto) 4.7, Baso % (Auto) 0.4, Absolute Neuts (auto) 6.0, Absolute Lymphs (auto) 1.73, Nucleated RBC % 0 11/05/20 05:18: Sodium 135 L, Potassium 3.8, Chloride 105, Carbon Dioxide 22.0, Anion Gap 8, BUN 43 H, Creatinine 1.76 H, Estim Creat Clear Calc 22.38, Est GFR (MDRD) Af Amer 36 L, Est GFR (MDRD) Non-Af 30 L, BUN/Creatinine Ratio 24.4 H, Glucose 189 H, Calcium 8.7 11/05/20 08:13: POC Glucose 174 H Micro: Microbiology 11/02/20 Unknown Bone - Toe Gram Stain - Final 11/02/20 Unknown Bone - Toe Wound Culture - Final No growth aerobically. 11/02/20 Unknown Bone - Toe Gram Stain - Final 11/02/20 Unknown Bone - Toe Wound Culture - Final Meth. resistant Staph. aureus 11/01/20 16:18 Blood Culture (Wb) - Anticubital Left Bacteria Detection (PCR) - Final Meth. resistant Staph. aureus 11/01/20 16:18 Blood Culture (Wb) - Anticubital Left Blood Culture - Final Meth. resistant Staph. aureus 11/01/20 16:25 Blood Culture (Wb) - Left Hand Blood Culture - Preliminary 11/02/20 09:38 Mucosa - Nasopharyngeal SARS-CoV-2 Antigen (Rapid) - Final Physical Exam Const alert, oriented x3 and no apparent distress Orientation / Consciousness: awake, oriented to person, oriented to place and oriented to time HEENT normocephalic and moist oral mucous membranes Eyes PERRL, EOMs intact bilaterally and conjunctivae normal Neck no lymphadenopathy Resp clear to auscultation bilaterally Auscultation: diminished lung sounds Cardio regular rate, regular rhythm and no murmurs Peripheral Pulses: pulses 2+ throughout GI normal to inspection, nondistended, normoactive bowel sounds, non-tender and non-distended Extremity normal to inspection Skin no rashes or lesions noted Skin Narrative: Right foot postoperative dressing intact. Lesions: no lesions Rashes: no rashes Trauma: no lacerations or abrasions Neuro CN's II-XII intact bilaterally, no focal motor deficits, no sensory deficits noted and deep tendon reflexes 2+ bilaterally Psych mental status grossly normal and affect normal Assessment & Plan Assessment/Plan (1) Severe sepsis with acute organ dysfunction: PLAN: 1. Acute severe sepsis with organ dysfunction secondary to acute right lower extremity great toe and lateral ankle infected diabetic wound with associated right great toe acute osteomyelitis, complicated by MRSA bacteremia-underlying charcot foot. Podiatry following. 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 IV vancomycin and IV Zosyn. ID and podiatry following. Postoperative cultures pending. Wound RN consult. PT/OT. Bone culture of toe growing MRSA. Blood culture positive MRSA. Repeat cultures pending. Echo completed with no noted growth. 2. Acute hypoxic respiratory failure secondary to acute on chronic heart failure with preserved ejection fraction-BNP 621. Echocardiogram November 2017 demonstrated an EF of 65%, stage II diastolic dysfunction, mild to moderate aortic stenosis. Repeat echocardiogram demonstrates an EF of 55%, mild mitral valve stenosis, mild to moderate tricuspid valve insufficiency, mild to moderate aortic stenosis, RVSP estimated be [address] of chest appears consistent with failure. Continue BiPAP nightly. Further IV Lasix discontinued. Ambulatory pulse ox prior to discharge. Patient is now on 1 L nasal cannula. Can likely be weaned off of oxygen. 3. Type 2 diabetes [id number] with sliding scale insulin. Oral regimen on hold. Hemoglobin A1c 6.2%. 4. Chronic kidney disease stage IIIa-stable, trend BMP. 5. CAD with history of CABG-continue aspirin, atenolol, Lasix, lisinopril. 6. PVD/PAD-history of recent angioplasty. Continue aspirin. Continue outpatient follow-up with vascular surgery. 7. Hyperlipidemia-statin allergy. 8. Hypertension-stable, continue current regimen. DVT prophylaxis-SCDs, heparin subcu Discharge plan: Await repeat blood cultures and ID follow-up. This patient was seen by KARUNA Oh under the supervision of Dr. Nj. Documented by User: Dr. Jillian Nj DO 11/05/20 12:31 Subjective Subjective Patient was seen in conjunction with Anabel Storey NP. The following is representation my independent history of his exam. Please see below for addendum to the above. Patient reports that she is feeling much better. Denies any shortness of breath. Is anxious to go home as soon as possible. Would very much like to leave tomorrow if able. Objective Data Lab / Micro Data Result Diagrams: 11/05/20 05:18 11/05/20 05:18 Physical Exam Const alert, oriented x3 and no apparent distress Constitutional Narrative: Elderly white female sitting up in bed eating breakfast, appears well, nontoxic, no shortness of breath Exam Limitations: no limitations Resp normal respiratory effort, no retractions, no use of accessory muscles and clear to auscultation bilaterally Cardio regular rate, regular rhythm, S1 normal heart sound, S2 normal heart sound, no murmurs, no rub, no gallops, no clicks and no JVD GI normal to inspection, nondistended, normoactive bowel sounds, soft to palpation, non-tender and non-distended Extremity no clubbing, cyanosis or edema Extremity Narrative: Right lower extremity wrapped with Colten bandage and dressing intact, no drainage on dressing Skin skin turgor normal, no jaundice, no petechiae and no mottling Neuro oriented x3, CN's II-XII intact bilaterally, moves all extremities and no focal motor deficits Sensorium / Orientation: awake and alert Speech: speech normal Psych affect normal Psych Narrative: Extremely pleasant Assessment & Plan Assessment/Plan (1) Severe sepsis with acute organ dysfunction: (2) MRSA bacteremia: (3) Acute respiratory failure with hypoxia: (4) Osteomyelitis of great toe of right foot: PLAN: Assessment: Acute severe sepsis with organ dysfunction secondary to acute right great toe and lateral ankle infected diabetic foot wound/OM Acute hypoxic respiratory failure MRSA bacteremia HFpEF-compensated Atelectasis Mild to moderate aortic stenosis Leukocytosis Lactic acidosis ALEISHA on CKD stage IIIa Anemia-acute -Suspect dilutional related to fluid replacement [id number] CAD status post CABG PVD/PAD Hyperlipidemia Hypertension Vitamin D deficiency Plan: -Slight bump in renal function--> will discontinue IV Lasix for today and monitor -Much improved oxygenation and O2 supplementation has been decreased to 1 L nasal cannula with an SPO2 of 92 to 96%. -Continue to wean as able -Continue BiPAP at night -Hemoglobin remained stable -Clearance blood cultures drawn on 11/04/2020 are pending -Continue Vanco and Zosyn and await infectious disease input for recommendations of antibiotics at discharge -Probable discharge in the next 24 to 48 hours to home with family depending on infectious disease recommendations Charges/Coding Visit Charges Inpatient E&M: 98998 Subs Hosp L2
[2020-11-05 12:01] LABS: Bedside Glucose 250 mg/dL (70-110)
[2020-11-05] MEDS: Menthol/Lanolin/Calamine/Znox 113 GM Tube 1 APPLIC TOPICAL ×2 (14:53→22:10)
[2020-11-05] MEDS: Glucerna Shake 120 ML LIQUID PO ×3 (14:53→22:10)
[2020-11-05 17:31] LABS: Vancomycin, Trough Level 14.8 ug/mL (5.0-15.0)
[2020-11-05] MEDS: Vancomycin IV 500 MG/100 ML BAG 100 MG IV (17:48)
[2020-11-05] MEDS: 0.9% Saline Lock 10 ML Syringe IV (17:49)
[2020-11-05 18:01] LABS: Bedside Glucose 252 mg/dL (70-110)
--- NOTE | 2020-11-05 18:35 | PCM.RX.CS ---
Consult Pharmacy has been consulted to manage selected antiobiotic: Vancomycin Type of Consult: Follow-up Suspected Infection: Skin/Soft tissue Prior Doses of Antibiotics Received/Current Regimen: Currently on 500mg iv q24h. Labs: Sodium 135 mmol/L (136-145) L 11/05/20 05:18 Potassium 3.8 mmol/L (3.5-5.1) 11/05/20 05:18 Chloride 105 mmol/L (98-107) 11/05/20 05:18 Carbon Dioxide 22.0 mmol/L (21.0-32.0) 11/05/20 05:18 Anion Gap 8 (5-15) 11/05/20 05:18 BUN 43 mg/dL (7-18) H 11/05/20 05:18 Creatinine 1.76 mg/dL (0.55-1.02) H 11/05/20 05:18 Est GFR (MDRD) Af Amer 36 mL/min (>60) L 11/05/20 05:18 Est GFR (MDRD) Non-Af 30 mL/min (>60) L 11/05/20 05:18 BUN/Creatinine Ratio 24.4 RATIO (10-20) H 11/05/20 05:18 Glucose 189 mg/dL (74-106) H 11/05/20 05:18 Vancomycin Trough 14.8 ug/mL (5.0-15.0) 11/05/20 16:47 Microbiology: Microbiology 11/02/20 Unknown Bone - Toe Gram Stain - Final 11/02/20 Unknown Bone - Toe Wound Culture - Final No growth aerobically. 11/02/20 Unknown Bone - Toe Gram Stain - Final 11/02/20 Unknown Bone - Toe Wound Culture - Final Meth. resistant Staph. aureus 11/01/20 16:18 Blood Culture (Wb) - Anticubital Left Bacteria Detection (PCR) - Final Meth. resistant Staph. aureus 11/01/20 16:18 Blood Culture (Wb) - Anticubital Left Blood Culture - Final Meth. resistant Staph. aureus 11/01/20 16:25 Blood Culture (Wb) - Left Hand Blood Culture - Preliminary 11/02/20 09:38 Mucosa - Nasopharyngeal SARS-CoV-2 Antigen (Rapid) - Final Weight used for dosin.4 kg Estimated Creatinine Clearance: 22ml/min Goal Trough: 15-20 mcg/mL Pharmacy Plan for Drug Dosing: Today's trough was 14.8 (goal 15-20 mcg/ml). Renal Cr changed from 1.61 to 1.76. Will continue same dose and frequency with a repeat trough level in two days on 11.07.20. Pharmacy Service will continue to monitor and adjust dosing as required. Follow-Up Labs: Trough Vancomycin - 11.07.20@1630 before 1700 dose
[2020-11-05] MEDS: Temazepam 15 MG Capsule PO (22:11)
[2020-11-05] MEDS: Acetaminophen 325 MG Tablet 650 MG PO (22:11)
[2020-11-06] VITALS (11 sets, daily range): BP systolic 141–159; BP diastolic 52–58; PULSE 51–62; RESP 18–20; TEMP 35.7–37.4; O2SAT 94–100
--- NOTE | 2020-11-06 00:18 | CPS ---
Pt. doesn't wish to wear PAP tonight. Pt. is on 3L nasal cannula with appropriate oxygen saturation. Pt.'s breathing is doing fine at this time; no signs of distress or discomfort.
[2020-11-06] MEDS: Menthol/Lanolin/Calamine/Znox 113 GM Tube 1 APPLIC TOPICAL ×3 (04:53→22:26)
[2020-11-06 07:15] LABS: Absolute Lymphocyte Count 2.01 X10^3/uL (0.83-4.51); Absolute Neutrophil Count 7.1 X10^3/uL (2.0-7.7); Basophil# 0.07 X10^3/uL; Basophil% 0.6 % (0-1); Eosinophil# 0.55 X10^3/uL; Hematocrit 35.5 % (37-47); Hemoglobin 11.7 g/dL (12.0-15.0); Lymphocyte # 2.01 X10^3/ul (0.83-4.51); Lymphocyte % 18.4 % (19-41); Mean Corpuscular Hgb 29.5 pg (27.0-32.0); Mean Corpuscular Volume 89.4 fL (81-99); Mean Platelet Vol. 10.4 fl (6.2-12.0); Monocyte# 1.01 X10^3/uL; Monocyte% 9.2 % (0-10); NRBC Flagged by Analyzer 0 % (0-5); Neutrophil # 7.05 X10^3/uL (2.7-7.7); Neutrophil % 64.6 % (47-70); Platelet Count 213 K/mm3 (150-450); RBC Distribution Width CV 14.2 % (11.6-14.6); RBC Distribution Width SD 46.3 fl (35.1-43.9); Red Blood Count 3.97 M/mm3 (4.2-5.4); White Blood Count 10.9 K/mm3 (4.4-11.0)
[2020-11-06 07:32] LABS: Anion Gap 4 (5-15); BUN 40 mg/dL (7-18); BUN/Creat Ratio 27.8 RATIO (10-20); Calcium,Total 9.4 mg/dL (8.5-10.1); Chloride 108 mmol/L (98-107); Creatinine, Serum 1.44 mg/dL (0.55-1.02); EST Glomerular Filtration Rate 37 mL/min (>60); Est Glom Filt Rate - Afr Amer 45 mL/min (>60); Estimated Creatinine Clearance 27.36 ml/min; Glucose 216 mg/dL (74-106); Potassium 4.1 mmol/L (3.5-5.1); Sodium Level 135 mmol/L (136-145)
--- NOTE | 2020-11-06 08:14 | PN_ITS ---
Subjective Subjective Patient denies any nausea fever vomiting chills chest pain shortness of breath. She relates her pain is well controlled. Is no new pedal complaints Objective Data Objective Data Vital Signs: Vital Signs Temp Pulse Resp BP Pulse Ox 97.7 F L 53 L 20 H 141/55 H 97 11/06/20 03:25 11/06/20 03:25 11/06/20 03:25 11/06/20 03:25 11/06/20 03:25 Oxygen Flow Rate (L/min) 3 Oxygen Delivery Method Nasal Cannula Weight: 72.5 kg Body Mass Index (BMI) 26.4 Intake & Output: Intake and Output for Last 24 Hours 11/04/20 11/05/20 11/06/20 23:59 23:59 23:59 Intake Total 250 / 250 950 / 950 50 / 50 Output Total 1150 / 1150 850 / 850 Balance -900 / -900 100 / 100 50 / 50 Medical Nutrition Assessment Dietitian: Nutrition Therapy Diagnosis Start: 11/02/20 13:02 Freq: Status: Active Protocol: Document 11/02/20 12:42 AG (Rec: 11/02/20 13:43 [id number]) Nutrition Malnutrition Evidence of Malnutrition Exists No Intake Problem Increased Nutrient Needs (specify) Etiology (protein) r/t nonhealing wounds Signs/Symptoms as evidenced by R maleolus and R great toe/foot wound Status Active Problem Recommendation Dietitian Recommendations/Changes 1600 calorie controlled diet when medically indicated; Maciej BID for wound healing when indicated. Lab / Micro Data Result Diagrams: 11/06/20 06:44 11/06/20 06:44 Labs: Laboratory Results - last 24 hr 11/05/20 08:13: POC Glucose 174 H 11/05/20 11:32: POC Glucose 250 H 11/05/20 16:47: Vancomycin Trough 14.8 11/05/20 17:12: POC Glucose 252 H 11/06/20 06:44: WBC 10.9, RBC 3.97 L, Hgb 11.7 L, Hct 35.5 L, MCV 89.4, MCH 29.5, MCHC 33.0, RDW Std Deviation 46.3 H, RDW Coeff of Monique 14.2, Plt Count 213, MPV 10.4, Immature Gran % (Auto) 2.200 H, Neut % (Auto) 64.6, Lymph % (Auto) 18.4 L, [place] % (Auto) 9.2, Eos % (Auto) 5.0, Baso % (Auto) 0.6, Absolute Neuts (auto) 7.1, Absolute Lymphs (auto) 2.01, Nucleated RBC % 0 11/06/20 06:44: Sodium 135 L, Potassium 4.1, Chloride 108 H, Carbon Dioxide 23.0, Anion Gap 4 L, BUN 40 H, Creatinine 1.44 H, Estim Creat Clear Calc 27.36, Est GFR (MDRD) Af Amer 45 L, Est GFR (MDRD) Non-Af 37 L, BUN/Creatinine Ratio 27.8 H, Glucose 216 H, Calcium 9.4 Micro: Microbiology 11/04/20 09:15 Blood Culture (Wb) - Anticubital Right Blood Culture - Pre liminary No growth in 48 hours. 11/02/20 Unknown Bone - Toe Gram Stain - Final 11/02/20 Unknown Bone - Toe Wound Culture - Final No growth aerobically. 11/02/20 Unknown Bone - Toe Gram Stain - Final 11/02/20 Unknown Bone - Toe Wound Culture - Final Meth. resistant Staph. aureus 11/01/20 16:18 Blood Culture (Wb) - Anticubital Left Bacteria Detection (PCR) - Final Meth. resistant Staph. aureus 11/01/20 16:18 Blood Culture (Wb) - Anticubital Left Blood Culture - Final Meth. resistant Staph. aureus 11/01/20 16:25 Blood Culture (Wb) - Left Hand Blood Culture - Preliminary 11/02/20 09:38 Mucosa - Nasopharyngeal SARS-CoV-2 Antigen (Rapid) - Final Physical Exam Const alert and oriented x3 General Appearance: cooperative HEENT normocephalic Extremity Extremity Narrative: No calf tenderness Diminished pulses Muscle wasting noted lower extremity edema noted negative navas and veerton sign right Compartments of the right lower extremity remain soft to palpate Chronic Charcot deformity noted right foot General Extremity: edema and no tenderness to palpation of joints or extremities; Negative for cyanosis Skin Skin Narrative: Her skin is very hairless and atrophic. Status post right hallux amputation is well aligned with sutures intact without eschar or tony necrosis. Capillary refill time next to both amputation borders are less than 3 seconds and this will be monitored for continued viability. Minimal dusky pro gression to distal most aspect. There is no gapping or maceration. Her erythema and edema to the foot have completely resolved. There is no purulence on expression. The lateral right ankle ulcer that was debrided is also healthy with granular and less than 25% fibrous base. There is no exposed bone or tendon nor is there any odor or local signs of infection to the site. no discomfort to palpate the surgical sites. General Skin Exam: Negative for erythema Neuro Neuro Narrative: lack of normal epicritic sensation via light touch is consistent with neuropathy status Psych cooperative and affect normal Assessment & Plan Assessment/Plan (1) Severe sepsis with acute organ dysfunction: (2) Osteomyelitis of great toe of right foot: (3) Cellulitis of foot, right: (4) Delayed wound healing: (5) Type 2 diabetes mellitus with diabetic polyneuropathy: QUALIFIERS: Diabetes mellitus termite exterminator insulin use: unspecified termite exterminator insulin use status Qualified Code(s): E11.42 - Type 2 diabetes yung litus with diabetic polyneuropathy (6) Ulcer of right lower extremity with muscle involvement without evidence of necrosis: PLAN: I reviewed and discussed her case this morning. The following work up and care recommendations were made: Infection: Cytosis resolved. Her vitals are stable and she is afebrile. Overall she appears clinically stable. Preoperative wound cultures demonstrated multiorganism growth including MRSA and even prior Enterococcus faecalis. Blood cultures with MRSA bacterial growth noted. Repeat blood culture negative so far. Intraoperative microbiology and pathology specimens were sent including clearance fragment (no growth so far). After copious irrigation, clearance fragments were sent to microbiology and pathology as well. Infectious disease on consultation and is greatly appreciated. Dressing: Changed this morning. To continue with dry dressing to the amputation site and Santyl nickel thickness and gauze to the lateral right ankle Offload: Continue surgical shoe. To float ankle and foot over stacked blankets or pillows to float the ulcer and surgical site in the air to avoid direct pressure to these fragile sites. Vascular: Recent abdominal pelvic arteriogram with recent intervention with Dr. Wilson this past 10/05/2020 which included angioplasties of the proximal and distal anterior tibial artery with additional balloon placement. Edema: Continue Colten wrap application and applied to leg this morning Pain: Controlled secondary to neuropathy Host factors: Her diabetes with neuropathy is noted (A1c that was last checked was actually 6.1%), chronic kidney disease and other comorbidities that are contributing to her delayed healing. Medical management per hospitalist services greatly appreciated and noted. I also recommend nutritional supplementation optimize healing and this is been ordered. DVT prophylaxis: SCD contralateral limb and it is also okay to restart any additional prophylactic medication from a surgical standpoint. I answered all the patient's questions. Ok to d/c from a surgical standpoint. It is noted she is still in treatment for bacteremia and cultures are still pending. Updated echo noted. I will follow her closely while in house. Please do not hesitate to call if you have any questions. To follow-up with Dr. Bernal at the wound care center upon discharge.
[2020-11-06] MEDS: Insulin Lispro 100 UNIT/ML INSULN.PEN SC ×2 (08:16→11:28)
[2020-11-06] MEDS: Insulin Lispro 100 UNIT/ML INSULN.PEN 20 UNIT SC ×3 (08:16→17:57)
[2020-11-06] MEDS: Aspirin 81 MG TAB.CHEW PO (08:17)
[2020-11-06] MEDS: Multivitamins,Therapeutic Tablet 1 TABLET PO (08:17)
[2020-11-06 08:26] LABS: Bedside Glucose 212 mg/dL (70-110)
--- NOTE | 2020-11-06 08:29 | NURSING ---
wound photo: right foot
--- NOTE | 2020-11-06 08:30 | NURSING ---
wound photo: right lateral ankle
[2020-11-06] MEDS: Magnesium Chloride 64 MG Delay Rel.Tablet 128 MG PO (10:55)
[2020-11-06] MEDS: Cholecalciferol (VIT D3) 25 MCG TABLET (1,000 UNITS) PO (10:55)
[2020-11-06] MEDS: Cyanocobalamin 500 MCG Tablet 1000 MCG PO (10:55)
[2020-11-06] MEDS: Ascorbic Acid 500 MG Tablet PO (10:55)
[2020-11-06] MEDS: Heparin Injection (Vial) 5,000 UNIT/ML VIAL 5000 UNIT SC ×2 (10:55→22:24)
[2020-11-06] MEDS: amLODIPine 10 MG Tablet PO (10:55)
[2020-11-06] MEDS: Lisinopril 10 MG Tablet 30 MG PO (10:56)
[2020-11-06] MEDS: Atenolol 50 MG Tablet PO ×2 (10:56→22:25)
[2020-11-06 11:41] LABS: Bedside Glucose 240 mg/dL (70-110)
--- NOTE | 2020-11-06 12:13 | CASEMGMT ---
Addendum entered by Bridgett Castellanos 11/06/20 12:42: Pt states does have solar panels at home for some electric, if needed. Ernestina RAY CM Original Note: This RN CM to room to discuss d/c plan with pt. Pt declines need for any HHC/OP therapy and states she has a daughter who lives with her who will complete dressing changes and assist with ADL's. Also, pt states has another daughter who comes to help. Pt states has the equipment she needs at home and really does not want to go home with oxygen at discharge. Pt is 98% on 2L at this time and will be tested for home oxygen. Pt voices no further concerns/needs. CM to follow. Ernestina RAY CM
--- NOTE | 2020-11-06 14:00 | CASEMGMT ---
Addendum entered by Bridgett Castellanos 11/06/20 14:40: Call back from Lis at [facility] and she states they can accept pt. Ernestina RAY CM Original Note: Per Dr. Rico, pt to be set up with PICC line and 6 weeks of Vancomycin 500mg IV every 24 hours. Pt is aware and call to [facility], to see if there is a preference for Infusion company. Call back from Nadiya and per [facility], there is no preference. Referral faxed to [facility]. Pt was provided a list of [facility] providers including quality and resource use data and consistent with the patient?s preferred geographic region, medical needs, and insurance network. Pt states [facility] at this time if they come to her home. Call to [facility] and per Lis, they do go to [place] and she will call this RN CM back with whether they can accept pt or not. Start of care will likely be 11/08/20 if all infusion supplies can be set up and pt could discharge tomorrow. Pt updated on all, voices understanding and CM to follow. Pt states her daughter should be able to be taught iv antibx infusion. Ernestina RAY CM
--- NOTE | 2020-11-06 14:04 | PN.HOSP_ITS ---
Documented by User: Anabel Storey CAVING GUIDE, CAVING GUIDE-C 11/06/20 14:10 Subjective Subjective Patient seen and examined. Denies fever, chills. Denies shortness of breath. ID recommending PICC line with outpatient antibiotics, awaiting set up. Objective Data Objective Data Vital Signs: Vital Signs Temp Pulse Resp BP Pulse Ox 96.3 F L 57 L 20 H 147/55 H 98 11/06/20 09:15 11/06/20 12:01 11/06/20 09:15 11/06/20 09:15 11/06/20 09:47 Oxygen Flow Rate (L/min) 3 Oxygen Delivery Method Nasal Cannula Weight: 159 lb 13.362 oz Body Mass Index (BMI) 26.4 Intake & Output: Intake and Output for Last 24 Hours 11/04/20 11/05/20 11/06/20 23:59 23:59 23:59 Intake Total 250 / 250 950 / 950 100 / 100 Output Total 1150 / 1150 850 / 850 Balance -900 / -900 100 / 100 100 / 100 Medical Nutrition Assessment Dietitian: Malnutrition Criteria Met Start: 11/02/20 13:02 Freq: Status: Active Protocol: Document 11/02/20 12:42 AG (Rec: 11/02/20 13:43 AG [id number]) Nutrition Malnutrition Evidence of Malnutrition Exists No Intake Problem Increased Nutrient Needs (specify) Etiology (protein) r/t nonhealing wounds Signs/Symptoms as evidenced by R maleolus and R great toe/foot wound Status Active Problem Recommendation Dietitian Recommendations/Changes 1600 calorie controlled diet when medically indicated; Maciej BID for wound healing when indicated. Lab / Micro Data Result Diagrams: 11/06/20 06:44 11/06/20 06:44 Labs: Laboratory Results - last 24 hr 11/05/20 16:47: Vancomycin Trough 14.8 11/05/20 17:12: POC Glucose 252 H 11/06/20 06:44: WBC 10.9, RBC 3.97 L, Hgb 11.7 L, Hct 35.5 L, MCV 89.4, MCH 29.5, MCHC 33.0, RDW Std Deviation 46.3 H, RDW Coeff of Monique 14.2, Plt Count 213, MPV 10.4, Immature Gran % (Auto) 2.200 H, Neut % (Auto) 64.6, Lymph % (Auto) 18.4 L, [place] % (Auto) 9.2, Eos % (Auto) 5.0, Baso % (Auto) 0.6, Absolute Neuts (auto) 7.1, Absolute Lymphs (auto) 2.01, Nucleated RBC % 0 11/06/20 06:44: Sodium 135 L, Potassium 4.1, Chloride 108 H, Carbon Dioxide 23.0, Anion Gap 4 L, BUN 40 H, Creatinine 1.44 H, Estim Creat Clear Calc 27.36, Est GFR (MDRD) Af Amer 45 L, Est GFR (MDRD) Non-Af 37 L, BUN/Creatinine Ratio 27.8 H, Glucose 216 H, Calcium 9.4 11/06/20 08:12: POC Glucose 212 H 11/06/20 11:26: POC Glucose 240 H Micro: Microbiology 11/02/20 Unknown Bone - Toe Gram Stain - Final 11/02/20 Unknown Bone - Toe Wound Culture - Final No growth aerobically. 11/02/20 Unknown Bone - Toe Anaerobic Culture - Preliminary No growth in 48 hours. 11/02/20 Unknown Bone - Toe Gram Stain - Final 11/02/20 Unknown Bone - Toe Wound Culture - Final Meth. resistant Staph. aureus 11/02/20 Unknown Bone - Toe Anaerobic Culture - Preliminary No growth in 48 hours. 11/04/20 09:15 Blood Culture (Wb) - Anticubital Right Blood Culture - Preliminary No growth in 48 hours. 11/01/20 16:18 Blood Culture (Wb) - Anticubital Left Bacteria Detection (PC R) - Final Meth. resistant Staph. aureus 11/01/20 16:18 Blood Culture (Wb) - Anticubital Left Blood Culture - Final Meth. resistant Staph. aureus 11/01/20 16:25 Blood Culture (Wb) - Left Hand Blood Culture - Preliminary 11/02/20 09:38 Mucosa - Nasopharyngeal SARS-CoV-2 Antigen (Rapid) - Final Physical Exam Const alert, oriented x3 and no apparent distress Orientation / Consciousness: awake, oriented to person, oriented to place and oriented to time HEENT normocephalic and moist oral mucous membranes Eyes PERRL, EOMs intact bilaterally and conjunctivae normal Neck no lymphadenopathy Resp clear to auscultation bilaterally Auscultation: diminished lung sounds Cardio regular rate, regular rhythm and no murmurs Peripheral Pulses: pulses 2+ throughout GI normal to inspection, nondistended, normoactive bowel sounds, non-tender and non-distended Extremity normal to inspection Skin no rashes or lesions noted Skin Narrative: Right foot dressing intact. Lesions: no lesions Rashes: no rashes Trauma: no lacerations or abrasions Neuro CN's II-XII intact bilaterally, no focal motor deficits, no sensory deficits noted and deep tendon reflexes 2+ bilaterally Psych mental status grossly normal and affect normal Assessment & Plan Assessment/Plan (1) Severe sepsis with acute organ dysfunction: PLAN: 1. Acute severe sepsis with organ dysfunction secondary to acute right lower extremity great toe and lateral ankle infected diabetic wound with associated right great toe acute osteomyelitis, complicated by MRSA bacteremia- underlying charcot foot. Podiatry following. 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 IV vancomycin. ID and podiatry following. Postoperative cultures pending. Wound RN consult. PT/OT. Bone culture of toe growing MRSA. Blood culture pos itive MRSA. Repeat blood culture shows no growth. Echo completed with no noted growth. Plan for PICC line placement with IV vanc at discharge per ID recommendations. Awaiting PICC placement and antibiotic setup. 2. Acute hypoxic respiratory failure secondary to acute on chronic heart failure with preserved ejection fraction-BNP 621. Echocardiogram November 2017 demonstrated an EF of 65%, stage II diastolic dysfunction, mild to moderate aortic stenosis. Repeat echocardiogram demonstrates an EF of 55%, mild mitral valve stenosis, mild to moderate tricuspid valve insufficiency, mild to moderate aortic stenosis, RVSP estimated be [address] of chest appears consistent with failure. Continue BiPAP nightly. Further IV Lasix discontinued. Ambulatory pulse ox prior to discharge. 3. Type 2 diabetes [id number]-[id number] with sliding scale insulin. Oral regimen on hold. Hemoglobin A1c 6.2%. 4. Chronic kidney disease stage IIIa-stable, trend BMP. 5. CAD with history of CABG-continue aspirin, atenolol, Lasix, lisinopril. 6. PVD/PAD-history of recent angioplasty. Continue aspirin. Continue outpatient follow-up with vascular surgery. 7. Hyperlipidemia-statin allergy. 8. Hypertension-stable, continue current regimen. DVT prophylaxis-SCDs, heparin subcu Discharge plan: Await PICC line/Home antibiotic set up. This patient was seen by KARUNA Oh under the supervision of Dr. Bales. Documented by User: Dr. Dipak Bales DO 11/06/20 16:49 Subjective Subjective Feels well. No acute complaints Objective Data Lab / Micro Data Result Diagrams: 11/06/20 06:44 11/06/20 06:44 Physical Exam Const alert HEENT head/scalp atraumatic and moist oral mucous membranes Head and Scalp: normocephalic Resp normal respiratory effort, no retractions, no use of accessory muscles and clear to auscultation bilaterally Cardio regular rate, regular rhythm, S1 normal heart sound and S2 normal heart sound GI normal to inspection, nondistended, normoactive bowel sounds, non-tender and non-distended Assessment & Plan Assessment/Plan (1) MRSA bacteremia: PLAN: Patient seen and examined independently. Data and vitals reviewed. I agree with the above note by the nurse practitioner. 1. Sepsis: Secondary to MRSA bacteremia and right lower extremity diabetic wound and osteomyelitis. Patient will need a PICC line and vancomycin. Anticipated length of treatment will be 6 weeks. 2. Acute hypoxic respiratory failure: Secondary to CHF exacerbation. Wean oxygen as tolerated. Currently on 3 L nasal cannula. 3. Acute heart failure with preserved ejection fraction EF 55%. Charges/Coding Visit Charges Inpatient E&M: 53266 Subs Hosp L2
[2020-11-06] MEDS: Furosemide 40 MG Tablet PO (14:15)
--- NOTE | 2020-11-06 15:35 | PCM.PN.ID ---
Physical Exam Narrative Feeling ok, no fever, no n/v/d. Const alert General Appearance: cooperative Resp normal air movement and clear to auscultation bilaterally Cardio regular rate and regular rhythm GI normal to inspection, nondistended, normoactive bowel sounds Skin Skin Narrative: foot wrapped ID ID: Route of nutrition/ use of supplements: [] Nutritional Intake: [] IV Site: [] Mosher Catheter: [] Assessment & Plan Assessment/Plan (1) Osteomyelitis of great toe of right foot: PLAN: Complicated by MRSA bacteremia. OR 11/[address] Bernal, on vanc/zosyn. Encouraged her to get covid vaccine. Bcx rapidly cleared, TTE neg. Will order picc and 6 weeks iv vanc, stop date 12/14/20. Will follow, d/w primary team. ID followup in 2-3 weeks. (2) Cellulitis of foot, right: (3) Type 2 diabetes mellitus with diabetic polyneuropathy: QUALIFIERS: Diabetes mellitus [employer] insulin use: unspecified snf insulin use status Qualified Code(s): E11.42 - Type 2 diabetes mellitus with diabetic polyneuropathy
--- NOTE | 2020-11-06 17:55 | RAD_ITS ---
STUDY: X-RAY CHEST REASON FOR EXAM: Female, 79 years old. PICC LINE PLACEMENT TECHNIQUE: Single AP portable view of the chest. COMPARISON: 11/02/2020 FINDINGS: Interval placement of left upper extremity PICC with tip of catheter overlying the distal superior vena cava proximal to 6 cm from the cavoatrial cavoatrial junction. Status post median sternotomy. Decrease in alveolar opacity in the left lung consistent with improved left-sided pneumonia. There is no demonstrated pleural abnormality. Normal size heart. Normal mediastinum and pavel. Normal visualized pulmonary arteries. Normal visualized aortic arch and descending thoracic aorta. Normal visualized thoracic spine. Normal visualized ribs, clavicles, and shoulders. There is no demonstrated abnormality of the visualized soft tissue structures of the upper abdomen. RAD/CXR for Line Placement IMPRESSION: 1. Interval placement of left upper extremity PICC with tip of catheter overlying the distal superior vena cava. 2. Improved left-sided pneumonia. Electronically Signed: Roel Perez MD at 18:10 EDT Tel , Service support ,
[2020-11-06 18:11] LABS: Bedside Glucose 123 mg/dL (70-110)
[2020-11-06] MEDS: Vancomycin IV 500 MG/100 ML BAG 100 MG IV (18:29)
--- NOTE | 2020-11-06 19:45 | NURSING ---
Emergency pandemic charting started at 194
[2020-11-06] MEDS: Temazepam 15 MG Capsule PO (22:30)
[2020-11-06] MEDS: Acetaminophen 325 MG Tablet 650 MG PO (22:30)
[2020-11-06 23:15] LABS: Bedside Glucose 148 mg/dL (70-110)
[2020-11-07] VITALS (8 sets, daily range): BP systolic 144–151; BP diastolic 52–59; PULSE 47–61; RESP 18–20; TEMP 36.4–36.7; O2SAT 93–100
[2020-11-07 05:24] LABS: Absolute Lymphocyte Count 2.76 X10^3/uL (0.83-4.51); Basophil% 0.8 % (0-1); Eosinophil# 0.54 X10^3/uL; Eosinophils% 4.5 % (0-5); Hematocrit 32.6 % (37-47); Hemoglobin 10.8 g/dL (12.0-15.0); Lymphocyte # 2.76 X10^3/ul (0.83-4.51); Lymphocyte % 23.1 % (19-41); Mean Corp Hgb Conc 33.1 g/dL (32-36); Mean Corpuscular Hgb 29.8 pg (27.0-32.0); Mean Corpuscular Volume 90.1 fL (81-99); Monocyte# 1.12 X10^3/uL; Monocyte% 9.4 % (0-10); NRBC Flagged by Analyzer 0 % (0-5); Neutrophil % 58.4 % (47-70); Platelet Count 253 K/mm3 (150-450); RBC Distribution Width CV 14.6 % (11.6-14.6); RBC Distribution Width SD 47.5 fl (35.1-43.9); Red Blood Count 3.62 M/mm3 (4.2-5.4)
[2020-11-07 05:40] LABS: Anion Gap 7 (5-15); BUN 48 mg/dL (7-18); BUN/Creat Ratio 34.5 RATIO (10-20); Calcium,Total 9.6 mg/dL (8.5-10.1); Chloride 106 mmol/L (98-107); Creatinine, Serum 1.39 mg/dL (0.55-1.02); EST Glomerular Filtration Rate 39 mL/min (>60); Est Glom Filt Rate - Afr Amer 47 mL/min (>60); Estimated Creatinine Clearance 28.34 ml/min; Glucose 94 mg/dL (74-106); Sodium Level 137 mmol/L (136-145)
[2020-11-07] MEDS: Menthol/Lanolin/Calamine/Znox 113 GM Tube 1 APPLIC TOPICAL ×2 (06:00→13:42)
[2020-11-07 07:44] LABS: Bedside Glucose 459 mg/dL (70-110)
[2020-11-07 07:44] LABS: Bedside Glucose 464 mg/dL (70-110)
[2020-11-07 09:22] LABS: Bedside Glucose 98 mg/dL (70-110)
--- NOTE | 2020-11-07 09:45 | CASEMGMT ---
Addendum entered by Bridgett Castellanos 11/07/20 12:20: Pt/daughter, Kaitlyn, updated on all, voice understanding and will someone pick them up at 1830. Pt/daughter voice no further questions/concerns/needs. Ernestina RAY CM Addendum entered by Bridgett Castellanos 11/07/20 10:49: Call back from Lis at [facility] and she states pt has been all set up thru [facility] for antibx infusion/supplies. Lis is aware that [facility] has been set up, voices understanding. Pt's dose last night was started around 1830. This FLOR DOMINGO checked with [facility] pharmacist, and she states Vancomycin can be given a little before 1700 as long as trough drawn before med given and Yeni RAY updated on all, voices understanding. Lis at [facility] updated on when med to be given, voices understanding. Also, call to Dr. Bernal to see when she would like to see pt in wound center and Hima, her nurse, states she would like to see pt in wound center next friday. Appt set up for pt 11/15/20 at 0930 in wound center and placed in pt's discharge at this time. This RN CM to update pt/daughter on all so they can get transportation set up for home tonight and appt next Friday. Message left with Lis at [facility] in regards to med times and [facility]. Ernestina RAY CM Original Note: Call to [facility] and per Lis Ron is working on pt's infusion/supplies. Lis will call this RN CHAYO back as soon as she is off the phone with another call. CM to follow. Ernestina RAY CM
[2020-11-07] MEDS: Heparin Injection (Vial) 5,000 UNIT/ML VIAL 5000 UNIT SC (09:55)
[2020-11-07] MEDS: Magnesium Chloride 64 MG Delay Rel.Tablet 128 MG PO (09:56)
[2020-11-07] MEDS: amLODIPine 10 MG Tablet PO (09:56)
[2020-11-07] MEDS: Ascorbic Acid 500 MG Tablet PO (09:56)
[2020-11-07] MEDS: Aspirin 81 MG TAB.CHEW PO (09:56)
[2020-11-07] MEDS: Cyanocobalamin 500 MCG Tablet 1000 MCG PO (09:56)
[2020-11-07] MEDS: Atenolol 50 MG Tablet PO (09:56)
[2020-11-07] MEDS: Furosemide 40 MG Tablet PO (09:56)
[2020-11-07] MEDS: Lisinopril 10 MG Tablet 30 MG PO (09:56)
[2020-11-07] MEDS: Multivitamins,Therapeutic Tablet 1 TABLET PO (09:57)
[2020-11-07] MEDS: Cholecalciferol (VIT D3) 25 MCG TABLET (1,000 UNITS) PO (09:57)
[2020-11-07] MEDS: Collagenase 30gm Tube 1 APPLIC TOPICAL (11:30)
--- NOTE | 2020-11-07 11:54 | PCM.DC ---
Discharge Instructions Diet Discharge Diet: Carb Control Diet Activity Discharge Activity: Return to Normal Activity Dressing / Incision Call your doctor if you observe: Fever of 101 or Higher, Shortness of breath, Dizziness and Chest pain Discharge Plan Admission Admit Date/Time: 11/01/20 17:15 Primary Reason for Your Visit: Right foot wound/infection Attending Provider: Dipak Bales Primary Care Provider: Kelsy Mensah Consulting Providers: Moriah Bernal ; Ema Chao ; Loki Rico Instructions Additional Instructions / Restrictions: Change dressing with dry gauze to hallux amputation site right foot daily. Apply santyl nickel thickness to lateral ankle wound daily. Okay to wash right ankle with antibacterial soap and water during dressing changes; to avoid soaking. To hang ankle and foot of the right lower extremity over stacked pillows and blankets to float the ulcer site in the air to reduce pressure. To wear surgical shoe for minimal ambulation and to put weight mainly on the heel. Discharge Orders/Prescriptions Prescriptions: New vancomycin HCl in water 100 mg/mL solution 500 mg IV Q24H 38 Days Qty: 114 RF: 0 furosemide 40 mg Tablet 40 mg PO DAILY Qty: 30 RF: 0 lisinopril 10 mg Tablet 30 mg PO DAILY Qty: 30 RF: 0 Continued metformin 500 MG tablet 500 mg PO TIDCM RF: 0 glyburide 5 MG tablet 5 mg PO DAILY@0800 RF: 0 multivitamin 1 EACH tablet 1 ea PO DAILY@1200 RF: 0 cyanocobalamin (vitamin B-12) 1,000 MCG tablet 1,000 mcg PO DAILY@1200 RF: 0 ascorbic acid (vitamin C) 500 MG tablet 500 mg PO DAILY@1200 RF: 0 atenolol 50 MG tablet 50 mg PO BID RF: 0 cholecalciferol (vitamin D3) 1,000 UNIT capsule 1,000 unit PO DAILY@1200 RF: 0 omega-3 fatty acids-fish oil 1 EACH capsule,delayed release(DR/EC) 1 cap PO BID RF: 0 aspirin 81 MG tablet,chewable 81 mg PO DAILY RF: 0 magnesium oxide 400 MG tablet 400 mg PO DAILY@1200 RF: 0 amlodipine 10 MG tablet 10 mg PO DAILY RF: 0 Discontinued lisinopril 20 MG tablet 20 mg PO DAILY RF: 0 furosemide 20 MG tablet 20 mg PO DAILY RF: 0 linezolid [Zyvox] 600 mg tablet 600 mg PO BID RF: 0 Referrals / Follow Up: Kelsy Mensah MD [Primary Care Provider] - In 1 Week Moriah Bernal DPM [STAFF PHYSICIAN] - 11/15/20 9:30 am (To follow up at [facility] center (not [facility]). ) Loki Rico MD [STAFF PHYSICIAN] - Within 2 Weeks Disposition Disposition (needs filled in before D/C Order can be placed): Home Health Service
--- NOTE | 2020-11-07 12:08 | PCM.DC.SUM ---
Documented by User: Anabel Storey NP, NUMERICAL CONTROL MACHINE MACHINIST-C 11/07/20 12:17 Providers Date of Admission: 11/01/20 Date of Discharge: 11/07/20 Primary Care Physician: Dr. Kelsy Mensah MD Consultations 11/01/20 17:12 Consult: Podiatry Routine Consulting Provider: Moriah Bernal Reason for Consult: Diabetic foot infection with osteomyelitis EMERGENT Consult: No MD Notified: Yes Date Notified: 11/01/20 Time Notified: 17:13 Method of Notification: Verbal 11/01/20 18:12 Consult: Infectious Disease Routine Consulting Provider: Loki Rico Reason for Consult: Diabetic foot infection, re-admission, was on linezolid. EMERGENT Consult: No MD Notified: Yes Date Notified: 11/01/20 Time Notified: 17:11 Method of Notification: Answering Service Consult: Onc/Wound/steel chipper Routine Comment: Consult: Podiatry Routine Consulting Provider: Ema Chao Reason for Consult: Diabetic foot infection, worsening EMERGENT Consult: No MD Notified: Yes Date Notified: 11/01/20 Time Notified: 17:11 Method of Notification: called per ED. Reason For Visit: SEVERE SEPSIS,DIABETIC FOOT INFECTION,POSS OSTEOMY Diagnosis Discharge Diagnosis (1) MRSA bacteremia: Status: Acute Code(s): R78.81 - Bacteremia; B95.62 - Methicillin resistant Staphylococcus aureus infection as the cause of diseases classified elsewhere Medications at Discharge Home Medications glyburide 5 mg PO DAILY@0800 08/26/15 metformin 500 mg PO TIDCM 08/26/15 ascorbic acid (vitamin C) 500 mg PO DAILY@119912/09/16 atenolol 50 mg PO BID 12/09/16 cholecalciferol (vitamin D3) 1,000 unit PO DAILY@119912/09/16 cyanocobalamin (vitamin B-12) 1,000 mcg PO DAILY@119912/09/16 multivitamin 1 ea PO DAILY@119912/09/16 omega-3 fatty acids-fish oil 1 cap PO BID 12/09/16 aspirin 81 mg PO DAILY 06/11/17 magnesium oxide 400 mg PO DAILY@1200 03/01/20 amlodipine 10 mg PO DAILY 09/29/20 vancomycin HCl in water 500 mg IV Q24H 38 Days #114 vial 11/06/20 furosemide 40 mg PO DAILY #30 tab 11/07/20 lisinopril 30 mg PO DAILY #30 tab 11/07/20 Hospital Course Operations - (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 1. Acute severe sepsis with organ dysfunction secondary to acute right lower extremity great toe and lateral ankle infected diabetic wound with associated right great toe acute osteomyelitis, complicated by MRSA bacteremia-underlying charcot foot. Podiatry consulted during admission. 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 Bone culture of toe growing MRSA. Blood culture positive MRSA. Repeat blood culture shows no growth. Echo completed with no noted growth. Plan for PICC line placement with IV vanc at discharge per ID recommendations with stop date 12/14/2020. Continue dressing changes as ordered by podiatry. Patient has follow-up with podiatry in 1 week. Follow-up with ID in 2 weeks. Follow-up with PCP in 1 week. 2. Acute hypoxic respiratory failure secondary to acute on chronic heart failure with preserved ejection fraction-BNP 621. Echocardiogram November 2017 demonstrated an EF of 65%, stage II diastolic dysfunction, mild to moderate aortic stenosis. Repeat echocardiogram demonstrates an EF of 55%, mild mitral valve stenosis, mild to moderate tricuspid valve insufficiency, mild to moderate aortic stenosis, RVSP estimated be [address] of chest appears consistent with failure. Further IV Lasix during admission discontinued. Home Lasix increased to 40 mg daily. Suspect patient may have underlying EN as well, recommend outpatient sleep study which can be arranged by primary care provider. 3. Type 2 diabetes mellitus- Hemoglobin A1c 6.2%. Continue home oral regimen. 4. Chronic kidney disease stage IIIa-stable. 5. CAD with history of CABG-continue aspirin, atenolol, Lasix, lisinopril. 6. PVD/PAD-history of recent angioplasty. Continue aspirin. Continue outpatient follow-up with vascular surgery. 7. Hyperlipidemia-statin allergy. 8. Hypertension-stable, continue current regimen. Lisinopril increased to 30 mg daily. Physical Exam Const alert, oriented x3 and no apparent distress Orientation / Consciousness: awake, oriented to person, oriented to place and oriented to time HEENT normocephalic and moist oral mucous membranes Eyes PERRL, EOMs intact bilaterally and conjunctivae normal Neck no lymphadenopathy Resp clear to auscultation bilaterally Auscultation: diminished lung sounds Cardio regular rate, regular rhythm and no murmurs Peripheral Pulses: pulses 2+ throughout GI normal to inspection, nondistended, normoactive bowel sounds, non-tender and non-distended Extremity normal to inspection Skin no rashes or lesions noted Skin Narrative: Right foot dressing intact. Lesions: no lesions Rashes: no rashes Trauma: no lacerations or abrasions Neuro CN's II-XII intact bilaterally, no focal motor deficits, no sensory deficits noted and deep tendon reflexes 2+ bilaterally Psych mental status grossly normal and affect normal Patient seen and examined prior to discharge. Physical assessment as noted above. Patient is stable for discharge with follow up recommendations as noted above. This patient was seen by KARUNA Oh under the supervision of Dr. Bales. Medical Records Data Medical Nutrition Assessment Dietitian: Malnutrition Criteria Met Start: 11/02/20 13:02 Freq: Status: Active Protocol: Document 11/02/20 12:42 AG (Rec: 11/02/20 13:43 [id number]) Nutrition Malnutrition Evidence of Malnutrition Exists No Intake Problem Increased Nutrient Needs (specify) Etiology (protein) r/t nonhealing wounds Signs/Symptoms as evidenced by R maleolus and R great toe/foot wound Status Active Problem Recommendation Dietitian Recommendations/Changes 1600 calorie controlled diet when medically indicated; Maciej BID for wound healing when indicated. Weight / BMI Weight Weight: 154 lb 8.705 oz Body Mass Index (BMI) 26.4 ABG / Lab / Microbiology Data Result Diagrams: 11/07/20 05:08 11/07/20 05:08 Laboratory: Laboratory Results - last 24 hr 11/05/20 22:06: POC Glucose 459 H* 11/05/20 22:08: POC Glucose 464 H* 11/06/20 17:54: POC Glucose 123 H 11/06/20 22:21: POC Glucose 148 H 11/07/20 05:08: WBC 12.0 H, RBC 3.62 L, Hgb 10.8 L, Hct 32.6 L, MCV 90.1, MCH 29.8, MCHC 33.1, RDW Std Deviation 47.5 H, RDW Coeff of Monique 14.6, Plt Count 253, MPV 10.0, Immature Gran % (Auto) 3.800 H, Neut % (Auto) 58.4, Lymph % (Auto) 23.1, [place] % (Auto) 9.4, Eos % (Auto) 4.5, Baso % (Auto) 0.8, Absolute Neuts (auto) 7.0, Absolute Lymphs (auto) 2.76, Nucleated RBC % 0 11/07/20 05:08: Sodium 137, Potassium 4.0, Chloride 106, Carbon Dioxide 24.0, Anion Gap 7, BUN 48 H, Creatinine 1.39 H, Estim Creat Clear Calc 28.34, Est GFR (MDRD) Af Amer 47 L, Est GFR (MDRD) Non-Af 39 L, BUN/Creatinine Ratio 34.5 H, Glucose 94, Calcium 9.6 11/07/20 08:14: POC Glucose 98 Microbiology: Microbiology 11/02/20 Unknown Bone - Toe Gram Stain - Final 11/02/20 Unknown Bone - Toe Wound Culture - Final No growth aerobically. 11/02/20 Unknown Bone - Toe Anaerobic Culture - Final No growth in 5 days. 11/02/20 Unknown Bone - Toe Gram Stain - Final 11/02/20 Unknown Bone - Toe Wound Culture - Final Meth. resistant Staph. aureus 11/02/20 Unknown Bone - Toe Anaerobic Culture - Final No anaerobic bacteria isolated. 11/01/20 16:25 Blood Culture (Wb) - Left Hand Blood Culture - Final Staphylococcus aureus 11/01/20 16:18 Blood Culture (Wb) - Anticubital Left Bacteria Detection (PCR) - Final Meth. resistant Staph. aureus 11/01/20 16:18 Blood Culture (Wb) - Anticubital Left Blood Culture - Final Meth. resistant Staph. aureus 11/04/20 09:15 Blood Culture (Wb) - Anticubital Right Blood Culture - Preliminary No growth in 48 hours. 11/02/20 09:38 Mucosa - Nasopharyngeal SARS-CoV-2 Antigen (Rapid) - Final Radiography Diagnostic Testing: Radiology Impression Chest X-Ray 11/06/20 17:55 IMPRESSION: 1. Interval placement of left upper extremity PICC with tip of catheter overlying the distal superior vena cava. 2. Improved left-sided pneumonia. Electronically Signed: Roel Perez MD at 18:10 EDT Tel , Service support , D/C Instructions Discharge Diet: Carb Control Diet Call your doctor if you observe: Fever of 101 or Higher, Shortness of breath, Dizziness and Chest pain Meaningful Use Info Meaningful Use Diagnoses (Choose all that apply): None applicable Discharge Plan Admission Admit Date/Time: 11/01/20 17:15 Primary Reason for Your Visit: Right foot wound/infection Attending Provider: Dipak Bales Primary Care Provider: Kelsy Mensah Consulting Providers: Moriah Bernal ; Ema Chao ; Loki Rico Instructions Additional Instructions / Restrictions: Change dressing with dry gauze to hallux amputation site right foot daily. Apply santyl nickel thickness to lateral ankle wound daily. Okay to wash right ankle with antibacterial soap and water during dressing changes; to avoid soaking. To hang ankle and foot of the right lower extremity over stacked pillows and blankets to float the ulcer site in the air to reduce pressure. To wear surgical shoe for minimal ambulation and to put weight mainly on the heel. Discharge Orders/Prescriptions Prescriptions: New vancomycin HCl in water 100 mg/mL solution 500 mg IV Q24H 38 Days Qty: 114 RF: 0 furosemide 40 mg Tablet 40 mg PO DAILY Qty: 30 RF: 0 lisinopril 10 mg Tablet 30 mg PO DAILY Qty: 30 RF: 0 Continued metformin 500 MG tablet 500 mg PO TIDCM RF: 0 glyburide 5 MG tablet 5 mg PO DAILY@0800 RF: 0 multivitamin 1 EACH tablet 1 ea PO DAILY@1200 RF: 0 cyanocobalamin (vitamin B-12) 1,000 MCG tablet 1,000 mcg PO DAILY@1200 RF: 0 ascorbic acid (vitamin C) 500 MG tablet 500 mg PO DAILY@1200 RF: 0 atenolol 50 MG tablet 50 mg PO BID RF: 0 cholecalciferol (vitamin D3) 1,000 UNIT capsule 1,000 unit PO DAILY@1200 RF: 0 omega-3 fatty acids-fish oil 1 EACH capsule,delayed release(DR/EC) 1 cap PO BID RF: 0 aspirin 81 MG tablet,chewable 81 mg PO DAILY RF: 0 magnesium oxide 400 MG tablet 400 mg PO DAILY@1200 RF: 0 amlodipine 10 MG tablet 10 mg PO DAILY RF: 0 Discontinued lisinopril 20 MG tablet 20 mg PO DAILY RF: 0 furosemide 20 MG tablet 20 mg PO DAILY RF: 0 linezolid [Zyvox] 600 mg tablet 600 mg PO BID RF: 0 Referrals / Follow Up: Kelsy Mensah MD [Primary Care Provider] - In 1 Week (Please call for an appointment ) Moriah Bernal DPM [STAFF PHYSICIAN] - 11/15/20 9:30 am (To follow up at [facility] (not [facility] ) Loki Rico MD [STAFF PHYSICIAN] - Within 2 Weeks (The office will be calling you later on this evening for an appointment. ) Disposition Disposition (needs filled in before D/C Order can be placed): Home Health Service Documented by User: Dr. Dipak Bales DO 11/07/20 14:42 Providers Date of Admission: 11/01/20 Reason For Visit: SEVERE SEPSIS,DIABETIC FOOT INFECTION,POSS OSTEOMY Medications at Discharge Home Medications glyburide 5 mg PO DAILY@0800 08/26/15 metformin 500 mg PO TIDCM 08/26/15 ascorbic acid (vitamin C) 500 mg PO DAILY@119912/09/16 atenolol 50 mg PO BID 12/09/16 cholecalciferol (vitamin D3) 1,000 unit PO DAILY@119912/09/16 cyanocobalamin (vitamin B-12) 1,000 mcg PO DAILY@119912/09/16 multivitamin 1 ea PO DAILY@119912/09/16 omega-3 fatty acids-fish oil 1 cap PO BID 12/09/16 aspirin 81 mg PO DAILY 06/11/17 magnesium oxide 400 mg PO DAILY@1200 03/01/20 amlodipine 10 mg PO DAILY 09/29/20 vancomycin HCl in water 500 mg IV Q24H 38 Days #114 vial 11/06/20 furosemide 40 mg PO DAILY #30 tab 11/07/20 lisinopril 30 mg PO DAILY #30 tab 11/07/20 ABG / Lab / Microbiology Data Result Diagrams: 11/07/20 05:08 11/07/20 05:08 Discharge Plan Admission Admit Date/Time: 11/01/20 17:15 Primary Reason for Your Visit: Right foot wound/infection Attending Provider: Dipak Bales Primary Care Provider: Kelsy Mensah Consulting Providers: Moriah Bernal ; Ema Chao ; Loki Rico Instructions Additional Instructions / Restrictions: Change dressing with dry gauze to hallux amputation site right foot daily. Apply santyl nickel thickness to lateral ankle wound daily. Okay to wash right ankle with antibacterial soap and water during dressing changes; to avoid soaking. To hang ankle and foot of the right lower extremity over stacked pillows and blankets to float the ulcer site in the air to reduce pressure. To wear surgical shoe for minimal ambulation and to put weight mainly on the heel. Discharge Orders/Prescriptions Prescriptions: New vancomycin HCl in water 100 mg/mL solution 500 mg IV Q24H 38 Days Qty: 114 RF: 0 furosemide 40 mg Tablet 40 mg PO DAILY Qty: 30 RF: 0 lisinopril 10 mg Tablet 30 mg PO DAILY Qty: 30 RF: 0 Continued metformin 500 MG tablet 500 mg PO TIDCM RF: 0 glyburide 5 MG tablet 5 mg PO DAILY@0800 RF: 0 multivitamin 1 EACH tablet 1 ea PO DAILY@1200 RF: 0 cyanocobalamin (vitamin B-12) 1,000 MCG tablet 1,000 mcg PO DAILY@1200 RF: 0 ascorbic acid (vitamin C) 500 MG tablet 500 mg PO DAILY@1200 RF: 0 atenolol 50 MG tablet 50 mg PO BID RF: 0 cholecalciferol (vitamin D3) 1,000 UNIT capsule 1,000 unit PO DAILY@1200 RF: 0 omega-3 fatty acids-fish oil 1 EACH capsule,delayed release(DR/EC) 1 cap PO BID RF: 0 aspirin 81 MG tablet,chewable 81 mg PO DAILY RF: 0 magnesium oxide 400 MG tablet 400 mg PO DAILY@1200 RF: 0 amlodipine 10 MG tablet 10 mg PO DAILY RF: 0 Discontinued lisinopril 20 MG tablet 20 mg PO DAILY RF: 0 furosemide 20 MG tablet 20 mg PO DAILY RF: 0 linezolid [Zyvox] 600 mg tablet 600 mg PO BID RF: 0 Referrals / Follow Up: Kelsy Mensah MD [Primary Care Provider] - In 1 Week (Please call for an appointment ) Moriah Bernal DPM [STAFF PHYSICIAN] - 11/15/20 9:30 am (To follow up at [facility] center (not [facility]). ) Loki Rico MD [STAFF PHYSICIAN] - Within 2 Weeks (The office will be calling you later on this evening for an appointment. ) Disposition Disposition (needs filled in before D/C Order can be placed): Home Health Service Charges/Coding Addendum Addendum: Patient seen and examined independently. Data and vitals reviewed. I agree with the above note by the nurse practitioner. 79-year-old female presents with sepsis secondary to MRSA bacteremia and right lower extremity diabetic foot wound and osteomyelitis. Patient underwent a right hallux amputation on the with right subcutaneous excisional debridement of the lateral ankle ulcer. Patient's course was complicated by respiratory failure secondary to acute heart failure preserved ejection fraction. Patient did receive IV furosemide but is currently improved and is tolerating room air. Upon discharge patient will require IV vancomycin with a stop date on 12/14/2020. Physical exam: Patient is no acute distress and afebrile. Lungs are clear to auscultation bilaterally. Heart rate is regular rate and rhythm plus S1-S2 with a murmurs gallops or rubs. Visit Charges Inpatient E&M: 89374 Disch Hosp
[2020-11-07] MEDS: Insulin Lispro 100 UNIT/ML INSULN.PEN SC ×2 (12:11→16:46)
[2020-11-07] MEDS: Insulin Lispro 100 UNIT/ML INSULN.PEN 20 UNIT SC ×2 (12:11→16:46)
[2020-11-07 12:20] LABS: Bedside Glucose 327 mg/dL (70-110)
--- NOTE | 2020-11-07 13:55 | CASEMGMT ---
PICC documentation faxed to [facility] and [facility]. Ernestina RAY CM
[2020-11-07] MEDS: Vancomycin IV 500 MG/100 ML BAG 100 MG IV (16:42)
[2020-11-07] MEDS: 0.9% Saline Lock 10 ML Syringe IV ×2 (16:43→18:13)
[2020-11-07 16:55] LABS: Bedside Glucose 151 mg/dL (70-110)
[2020-11-07 17:57] LABS: Vancomycin, Trough Level 15.3 ug/mL (5.0-15.0)
--- NOTE | 2020-11-08 15:35 | CASEMGMT ---
ALDEN DC F/U Call DC Date: 11/07/20 DC Diagnosis: MRSA Bacteremia DC Disposition: Home with IV Abx and [facility] Lace/Strata: 1 06/25 Called patient listed cell phone, patient answered. Introduced self and role. Patient unsure when nurse is supposed to come out today. [facility] was called and told was on the way at 1400 but not there and has not heard anything. [facility] medication has not been delivered yet but per dtr that is there with patient, medication is on its way now. Called Lis at [facility], [facility] medication will be delivered by 1400 and nurse will be there between [id number]. Called patient back and updated of above. Patient states feeling pretty good. Denies any other issues, concerns, or questions with [facility], medications or follow up. Thanked patient for choosing [facility] for care and phone conversation was ended. ALDEN Moya
== END 2020-11-07 18:39 | disposition home health service (06) | DRG 853 ==
LOC: ED 17:11 → PCU 17:29
PROVIDERS: Internal Medicine; Nurse Practitioner Family; Podiatrist; Admitting Provider Family Medicine; Emergency Provider Emergency Medicine; PCP Internal Medicine
PROC: 0Y6P0Z0 Detachment at Right 1st Toe, Complete, Open Approach (ICD-10-PCS; principal; 2020-11-02 12:45)
DX: A41.02 Sepsis due to Methicillin resistant Staphylococcus aureus (principal); I50.33 Acute on chronic diastolic (congestive) heart failure; J96.01 Acute respiratory failure with hypoxia; I13.0 Hypertensive heart and chronic kidney disease with heart failure and stage 1 through stage 4 chronic kidney disease, or unspecified chronic kidney disease; M86.171 Other acute osteomyelitis, right ankle and foot; L03.115 Cellulitis of right lower limb; L97.315 Non-pressure chronic ulcer of right ankle with muscle involvement without evidence of necrosis; N17.9 Acute kidney failure, unspecified; E11.22 Type 2 diabetes mellitus with diabetic chronic kidney disease; E11.42 Type 2 diabetes mellitus with diabetic polyneuropathy; E11.51 Type 2 diabetes mellitus with diabetic peripheral angiopathy without gangrene; E11.621 Type 2 diabetes mellitus with foot ulcer; E11.628 Type 2 diabetes mellitus with other skin complications; E11.65 Type 2 diabetes mellitus with hyperglycemia; E11.69 Type 2 diabetes mellitus with other specified complication; E11.610 Type 2 diabetes mellitus with diabetic neuropathic arthropathy; E55.9 Vitamin D deficiency, unspecified; E78.5 Hyperlipidemia, unspecified; I25.10 Atherosclerotic heart disease of native coronary artery without angina pectoris; I27.20 Pulmonary hypertension, unspecified; E11.36 Type 2 diabetes mellitus with diabetic cataract; I35.0 Nonrheumatic aortic (valve) stenosis; J44.9 Chronic obstructive pulmonary disease, unspecified; L97.514 Non-pressure chronic ulcer of other part of right foot with necrosis of bone; M19.90 Unspecified osteoarthritis, unspecified site; N18.31 Chronic kidney disease, stage 3a; R65.20 Severe sepsis without septic shock; Z87.442 Personal history of urinary calculi; Z87.19 Personal history of other diseases of the digestive system; Z95.1 Presence of aortocoronary bypass graft; Z79.4 Long term (current) use of insulin; Z79.82 Long term (current) use of aspirin; Z79.899 Other long term (current) drug therapy
CPT/HCPCS: 36415; 36569; 36600; 71045; 71250; 73630; 73660; 76000; 80048; 80053; 80202; 81001; 82803; 82962; 83036; 83605; 83735; 83880; 84484; 85025; 85610; 85652; 85730; 86140; 87015; 87040; 87070; 87075; 87077; 87102; 87116; 87149; 87176; 87186; 87205; 87206; 87426; 87635; 87640; 88304; 88305; 88311; 93005; 93306; 94002; 94640; 94762; 97110; 97162; 97166; 97530; 97535; 97802; 97803; 99251; 99285; J7030; J7040; J7050; Q9957; U0005; A4216; C8929; G0463; J1940; J2405; J3490; U0003

== ENCOUNTER 2020-11-15 09:30 | Outpatient (RCR) | payer OTHER, SELFPAY ==
[2020-10-18 06:29] VITALS: BMI 24.9
[2020-10-22 00:39] VITALS: BP 152/65; PULSE 67; RESP 18; TEMP 36.3
[2020-10-24 11:22] VITALS: BP 129/66; PULSE 59; RESP 20; TEMP 36.5; BMI 24.9
--- NOTE | 2020-10-24 13:06 | PN.PCM_ITS ---
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 She was recently seen at [facility] with a hospitalization for cellulitis further disease work-up. She was discharged on 10-05-20. She had subsequent imaging that ruled out osteomyelitis and it was identified that she had pronounced peripheral vascular disease. Since her discharge home she has had vascular intervention and yazdanism by Dr. Wilson. Has been changing the dressing with hydrogel and Adaptic. She denies odor or redness. She denies fever, chill, nausea, vomiting, diarrhea. Progress of Wound: Unchanged Subjective Subjective Patient seen and examined resting comfortably. Patient denies any new pedal complaints. Patient denies any nausea, fever, chills, chest pain, shortness of breath, cough, streaking, purulence, vomiting. Objective Data Objective Data Vital Signs: Vital Signs Temp Pulse Resp BP 97.7 F L 59 L 20 H 129/66 H 10/24/20 11:22 10/24/20 11:22 10/24/20 11:22 10/24/20 11:22 Weight: 65.771 kg Body Mass Index (BMI) 24.9 Physical Exam Narrative Derm Extremity Narrative: Right foot/ankle: Ulceration to the lateral ankle and also to the dorsal 1st toe, down to subcutaneous tissue at ankle and bone at hallux site (white and firm). no purulence, no fluctuance, no crepitus, no maloder, no streaking, no visible abscess present, no erythema noted. MSK Contracture of lesser toes- chronic. Callus noted to tuft of left second toe. Has planus with some rocker-bottom type foot changes noted. Toe amputation noted. Vasc palpable DP and PT pulses bilateral. No bogginess or fluctuance to the right lower extremity. Neuro Neuro Narrative: significantly decreased sensation to feet bilateral. Debridement Note Debridement Note Post-Debridement Measurements and Additional Note: Post-Debridement Measurements/Treatment IRLANDA - Nurse 1 - General Ulcer Assessment Start: 10/24/20 11:19 Freq: Status: Active Protocol: ANGELICAEXAicha Activity Type Activity Date Activity User E-Sign Co-Sign Detail Recorded Client Recorded Date Recorded By Document 10/24/20 11:22 DL [id number] 10/24/20 11:33 10/24/20 11:22 WC - Today's Visit Information Type of service Follow-up Visit (Physician/NUCLEAR MEDICINE SPECIALIST ) Arrival Mode Ambulatory, Wheelchair Transfer Assistance None Patient Identification Verified (Name & Yes ) Patient Requires Transmission-Based No Precautions Finger Stick Blood Sugar(mg/dl) (if 78 indicated): Blood Sugar Stated by Patient Height and Weight Body Mass Index (BMI) 24.9 BMI Classification Normal Vital Signs Temperature (97.8 F-99.1 F) 97.7 F L Temperature Source Temporal Pulse Rate (60-100) 59 L Pulse Location Monitor Respiratory Rate (12-18) 20 H Respiratory rate source Observation Blood Pressure (90/60-120/80) 129/66 H Blood Pressure Mean (mm Hg) 87 Source Monitor History Since Last Visit- (Skip if this is Patient's initial visit) Have you changed medications since your No last visit? Any new allergies or adverse reactions No Had a fall/change in ADL's that may No increase risk of falls Signs or symptoms of abuse and/or No neglect since last visit Have you been in the hospital since your No last visit? Has dressing in place as prescribed Yes Has compression in place as prescribed Yes Has offloadiing in place as prescribed Yes Experienced any changes in pain level or No management Right Footwear Surgical Shoe with pressure relief insole Pain Scale: 0-10 Numeric Is Patient Pain Free? Yes - Nurse 1 - General Ulcer Measurement Start: 10/24/20 11:19 Freq: Status: Active Protocol: Activity Type Activity Date Activity User E-Sign Co-Sign Detail Recorded Client Recorded Date Recorded By Document 10/24/20 11:22 DL [id number] 10/24/20 11:33 DL 10/24/20 11:22 Wound Center Nurse 1 #2- R LAT ANKLE -Current Size (cm) - Length 2.7 -Current Size (cm) - Width 2.6 -Current Size (cm) - Depth 0.3 -Total Square Cm 7.02 -Photo Taken No -Exudate Amt Medium -Exudate Type Serosanguineous -Wound Margin Distinct, Outline Attached -Granulation Amt Medium (34-66%) -Granulation Quality Zwingle,Red -Necrosis Amt Medium (34-66%) -Necrotic Tissue Type Adherent Slough -Structure Exposed N/A -Texture (Shakira-wound Skin Appearance) Localized Edema ,Scarring -Moisture (Shakira-wound Skin Appearance) Maceration -Color (Shakira-wound Skin Appearance) Rubor -Temperature (Shakira-wound Skin No Abnormality Appearance) (Pt Warm) -Tenderness on Palpation (Shakira-wound No Skin Appearance) -Ulcer Cleansing Wound Cleanser -Foul Odor after Cleansing No -Anesthetic Used 4% Lidocaine Solution #1- R HALLUX CLUSTER -Current Size (cm) - Length 2 -Current Size (cm) - Width 1.7 -Current Size (cm) - Depth 0.3 -Total Square Cm 3.4 -Photo Taken No -Exudate Amt Medium -Exudate Type Serosanguineous -Wound Margin Distinct, Outline Attached -Granulation Amt Small (1-33%) -Granulation Quality Zwingle -Necrosis Amt Large (67-100%) -Necrotic Tissue Type Adherent Slough -Structure Exposed Bone -Texture (Shakira-wound Skin Appearance) Localized Edema ,Scarring -Moisture (Shakira-wound Skin Appearance) No Abnormality -Color (Shakira-wound Skin Appearance) Erythema -Temperature (Shakira-wound Skin No Abnormality Appearance) (Pt Warm) -Tenderness on Palpation (Shakira-wound No Skin Appearance) -Ulcer Cleansing Wound Cleanser -Foul Odor after Cleansing Yes, Due to Product Use -Anesthetic Used 4% Lidocaine Solution Right Calf (cm) 31 Right Ankle (cm) 22.3 WC - Nurse 2 - General Ulcer CM Notes Start: 10/24/20 11:19 Freq: Status: Active Protocol: Activity Type Activity Date Activity User E-Sign Co-Sign Detail Recorded Client Recorded Date Recorded By Document 10/24/20 11:53 KYRA [id number] 10/24/20 12:06 KYRA 10/24/20 11:53 Wound Center Nurse 2 #2- R LAT ANKLE -Time 11:56 -Correct Patient Yes -Correct Side, Site, Position Yes -Correct Procedure Yes -Procedure Performed Yes -Type of Procedure Debridement -Clinical Debridement Subcutaneous -Tissue Removed Subcutaneous -Post Debridement (cm) - Length 2.5 -Post Debridement (cm) - Width 3 -Post Debridement (cm) - Depth 0.2 -Total Square (Post) (cm) 7.5 -Area of Debridement (cm) - Length 2.5 -Area of Debridement (cm) - Width 3 -Total Square (Area) (cm) 7.5 -Tunneling No -Undermining/Tunneling No -Circular Undermining No -Wound/Ulcer Outcome Not Healed -Ulcer Cleansing Rinsed/ Irrigated with Saline -Foul Odor after Cleansing No -Bioengineered Tissue No -Bleeding Controlled with Pressure -Offloading Yes -Type of Offloading Surgical Shoe -Treatment Response Procedure Tolerated Well -Debridement - Subq, 1st 20sq cm Yes #1- R HALLUX CLUSTER -Time 12:05 -Correct Patient Yes -Correct Side, Site, Position Yes -Correct Procedure Yes -Procedure Performed Yes -Type of Procedure Debridement -Clinical Debridement Subcutaneous -Tissue Removed Subcutaneous -Post Debridement (cm) - Length 1.5 -Post Debridement (cm) - Width 1.6 -Post Debridement (cm) - Depth 0.4 -Total Square (Post) (cm) 2.40 -Area of Debridement (cm) - Length 1.5 -Area of Debridement (cm) - Width 1.6 -Total Square (Area) (cm) 2.40 -Tunneling No -Circular Undermining No -Wound/Ulcer Outcome Not Healed -Ulcer Cleansing Rinsed/ Irrigated with Saline -Foul Odor after Cleansing No -Bioengineered Tissue No -Bleeding Controlled with Pressure -Offloading Yes -Type of Offloading Camwalker -Treatment Response Procedure Not Tolerated Well -Debridement - Subq, 1st 20sq cm No Pain Scale: 0-10 Numeric Is Patient Pain Free? Yes WC - Nurse 3 - General Ulcer D/C NN Start: 10/24/20 11:19 Freq: Status: Active Protocol: Activity Type Activity Date Activity User E-Sign Co-Sign Detail Recorded Client Recorded Date Recorded By Document 10/24/20 12:28 MW [id number] 10/24/20 12:28 MW 10/24/20 12:28 Wound Care Nurse 3 #2- R LAT ANKLE -Ulcer Cleansing Rinsed/ Irrigated with Saline -Foul Odor after Cleansing No -Negative Pressure Wound Therapy N/A -Primary Dressing Applied C Hydrogel ($), NonAdherent Contact Layer -Primary Dressing Covered/Secured with Dry Gauze & Roll Gauze, Secured with Tape #1- R HALLUX CLUSTER -Ulcer Cleansing Rinsed/ Irrigated with Saline -Foul Odor after Cleansing No -Negative Pressure Wound Therapy N/A -Primary Dressing Applied NonAdherent Contact Layer -Other Dressing c.hydrogel -Primary Dressing Covered/Secured with Dry Gauze, Secured with Tape Treatment Response Procedure Tolerated Well Pain Scale: 0-10 Numeric Is Patient Pain Free? Yes Teaching: Wound Center Dressing Your Wound -Person Taught Patient,Family -Teaching Method Discussion, Demonstration -Response to teaching Verbalize understanding WC - Visit Discharge Discharge Condition Stable Ambulatory Status Wheelchair Transportation Private Auto Accompanied by daughter Medication Reconcilliation completed & No provided to patient/care provider Clinical Summary of Care Provided Yes Wound debrided: Lateral ankle Laterality: Right Wound Grade/Stage: Rosario 1 Type of Debridement: Excisional debridement Anesthesia Used: 4% Lidocaine Solution Depth: in the subcutaneous layer Percentage of wound debrided: 100 Instrument Used: 3mm curette Tissue Removed: includes fibrous, devitalized, biofilm, callus and slough tissue Severity: Fat Layer Exposed Amount of bleeding with debridement: Mild Bleeding Controlled with: Pressure Patient tolerated procedure: Patient tolerated procedure well Additional Wound Wound debrided: Dorsal hallux Laterality: Right Wound Grade/Stage: Rosario 2 Type of Debridement: Excisional debridement Anesthesia Used: 4% Lidocaine Solution Depth: to bone (Debrided to subcu) Percentage of wound debrided: 100 Instrument Used: 3mm curette Tissue Removed: Includes fibrous, devitalized, biofilm, callus and slough tissue Severity: Fat Layer Exposed (Distal phalanx easily visible) Amount of bleeding with debridement: Mild Bleeding Controlled with: Pressure Patient tolerated procedure: Patient tolerated procedure well Assessment/Plan Assessment/Plan (1) Ulcer of right lower extremity with muscle involvement without evidence of necrosis: CODE(S): L97.915 - 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 without evidence of necrosis (2) Ulcer of right foot with bone involvement without evidence of necrosis: CODE(S): L97.516 - Non-pressure chronic ulcer of other part of right foot with bone involvement without evidence of necrosis (3) Other specified peripheral vascular diseases: CODE(S): I73.89 - Other specified peripheral vascular diseases (4) Type 2 diabetes mellitus with diabetic polyneuropathy: CODE(S): E11.42 - Type 2 diabetes mellitus with diabetic polyneuropathy QUALIFIERS: Diabetes mellitus stripper cutter machine insulin use: unspecified stripper cutter machine insulin use status Qualified Code(s): E11.42 - Type 2 diabetes mellitus with diabetic polyneuropathy (5) Delayed wound healing: CODE(S): T14.8XXD - Other injury of unspecified body region, subsequent encounter (6) Unspecified protein-calorie malnutrition: CODE(S): E46 - Unspecified protein-calorie malnutrition QUALIFIERS: Protein-calorie malnutrition severity: unspecified severity Qualified Code(s): E46 - Unspecified protein-calorie malnutrition PLAN: Patient seen and evaluated with daughter present I reviewed and discussed her case today. Chart review from her most recent hospital admission, recent surgical intervention, diagnostic data were reviewed. Debridement was performed today as noted in the clinical panel to all of the ulcer sites after verbal consent was obtained. The following work up and care recommendations were made: Dressing: To change dressing daily with hydrogel, Adaptic, dry sterile dressing. Wash: Soap and water before each dressing change Offload: To continue with offloading surgical shoe Vascular: She has impaired vascular status and had vascular surgery intervention on 10-05-[address] Wilson as the following: Abdominal right lower extremity arteriogram with right anterior tibial balloon angioplasty with improved perfusion. To follow-up as scheduled. Edema: It is okay to wear an Colten wrap and intermittently elevate Infection: Her cellulitis has resolved. She had an MRI performed on 09-29-20 which did not confirm diagnosis of osteomyelitis. She was seen by infectious disease specialist, Dr. Rico during her last hospital admission and there was a goal set for 4 weeks of linezolid. She will follow-up in the outpatient setting. Her prior cultures demonstrated MRSA and Enterococcus faecalis. During her last hospital admission her blood cultures were negative. Pain: This is controlled today. Host factors: Her comorbidities are noted and this may contribute to delayed healing. I recommend nutritional supplementation with Maciej to optimize healing. Patient noted to be Yarsanism and has had contact with Nadiya the Yarsanism lesion person at the hospital. This was done in order to obtain pricing for various advanced wound care options including skin grafting. Patient was looking at getting an epi fix graft to the lateral ankle ulceration. Also discussed TheraSkin for dorsal hallux ulceration. Also discussed with the patient and daughter at length that the longer these wounds are open the higher the chance for infection. Discussed that the bone to her toe ulceration has about 30% next of total bone exposed. Discussed that this will be difficult to get to cover up with our advanced wound care options. Discussed with him at length the option of doing a partial toe amputation in order to speed up healing options. Patient is very concerned about cost. Discussed that we can talk with Nadiya to get pricing for all these options. Discussed that even though surgery might cost more if could potentially be a faster road to recovery. Discussed with the patient all the risks, benefits, alternatives, complications of each of these options. Patient would like to get the pricing options before considering moving forward with any of these options. We will send all relevant codes to Nadiya for pricing. If patient makes a decision she is to contact the office so we can start moving forward with whatever option she chooses. She understands she is still at risk for limb loss and delays in healing. I answered all the patient's questions. To return to the wound healing center in 1-2 weeks, or call sooner if the patient has any questions or concerns. Note: [employer] speech recognition lunch wagon operator software was used to create portions of this document. Sound-alike and misspelled words, as well as other lunch wagon operator errors may be contained in the documentation. 20 to 29 minutes was spent on this encounter. This included both face to face and non face to face care, which includes but not limited to time preparing for the visit (which includes but not limited to reviewing medical record, any pertinent paperwork, as well as previous imaging and/or test results), reviewing/obtaining the noted history, performing the noted examination, counseling and providing education to the patient as well as to patient's family and/or patient caregivers per patient request. This also includes ordering any medication(s), test(s), and/or procedure(s) as indicated and as documented in the medical record, interpreting / sharing this information when indicated (and with patient's permission) as documented, communicating with other healthcare providers as needed/as requested, the time documenting information in the medical record, as well as any further care coordination.
--- NOTE | 2020-10-31 07:40 | WC ---
Patient's daughter Kaitlyn called in on Friday concerned that her mom's toe ulcer is getting more red. There is no increase pain or odor or fevers. Patient has completed her previous antibiotic. Notified Dr Chao who will call in her an Antibiotic to [facility]. Reviewed with the daughter that if sypmtoms get worse to report to ER. She verbalized understanding.
[2020-11-15 09:41] VITALS: BP 139/62; PULSE 60; RESP 18; TEMP 36.6; BMI 24.9
--- NOTE | 2020-11-15 09:44 | WC ---
R hallux post op site incision well aproximated and sutures intact
--- NOTE | 2020-11-15 10:56 | PCM.WC.PN ---
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 She changes the surgical site with adaptic and the open ulcer site with santyl as advised. She already had vascular intervention and voodoo by Dr. Wilson; additional intervention is not planned. She denies odor or redness. She denies fever, chill, nausea, vomiting, diarrhea. Progress of Wound: stable improved lateral ankle ulcer Objective Data Objective Data Vital Signs: Vital Signs Temp Pulse Resp BP 97.8 F 60 18 139/62 H 11/15/20 09:41 11/15/20 09:41 11/15/20 09:41 11/15/20 09:41 Weight: 65.771 kg Body Mass Index (BMI) 24.9 Physical Exam Narrative Derm Extremity Narrative: Right foot/ankle: Ulceration to the lateral ankle down to subcutaneous tissue at ankle ; no exposed bone or tendon. no purulence, no fluctuance, no crepitus, no maloder, no streaking, no visible abscess present, no erythema noted. This was hallux amputation site with sutures intact without gapping, necrosis or drainage. MSK Contracture of lesser toes- chronic. Toe amputation noted. Vasc palpable DP and PT pulses bilateral. No bogginess or fluctuance to the right lower extremity. Neuro Neuro Narrative: significantly decreased sensation to feet bilateral. Debridement Note Debridement Note Post-Debridement Measurements and Additional Note: Post-Debridement Measurements/Treatment - Nurse 1 - General Ulcer Assessment Start: 10/24/20 11:19 Freq: Status: Active Protocol: [email or web address] Activity Type Activity Date Activity User E-Sign Co-Sign Detail Recorded Client Recorded Date Recorded By Document 10/24/20 11:22 DL [id number] 10/24/20 11:33 DL Document 11/15/20 09:41 RB [id number] 11/15/20 09:44 RB 10/24/20 11/15/20 11:22 09:41 - Today's Visit Information Type of service Follow-up Visit Follow-up Visit (Physician/[employer] CLIPPER (Physician/[employer]IPPER ) ) Arrival Mode Ambulatory, Wheelchair Wheelchair Transfer Assistance None Manual Patient Identification Verified (Name & Yes Yes ) Patient Requires Transmission-Based No No Precautions Finger Stick Blood Sugar(mg/dl) (if 78 indicated): Blood Sugar Stated by Patient Height and Weight Body Mass Index (BMI) 24.9 24.9 BMI Classification Normal Normal Vital Signs Temperature (97.8 F-99.1 F) 97.7 F L 97.8 F Temperature Source Temporal Temporal Pulse Rate (60-100) 59 L 60 Pulse Location Monitor Monitor Respiratory Rate (12-18) 20 H 18 Respiratory rate source Observation Observation Blood Pressure (90/60-120/80) 129/66 H 139/62 H Blood Pressure Mean (mm Hg) 87 87 Source Monitor Monitor Blood Pressure Location Left Arm History Since Last Visit- (Skip if this is Patient's initial visit) Have you changed medications since your No No last visit? Any new allergies or adverse reactions No No Had a fall/change in ADL's that may No No increase risk of falls Signs or symptoms of abuse and/or No No neglect since last visit Have you been in the hospital since your No No last visit? Has dressing in place as prescribed Yes Yes Has compression in place as prescribed Yes Yes Has offloadiing in place as prescribed Yes Yes Experienced any changes in pain level or No management Left Footwear Surgical Shoe with pressure relief insole Right Footwear Surgical Shoe Surgical Shoe with pressure with pressure relief insole relief insole Pain Scale: 0-10 Numeric Is Patient Pain Free? Yes WC - Nurse 1 - General Ulcer Measurement Start: 10/24/20 11:19 Freq: Status: Active Protocol: Activity Type Activity Date Activity User E-Sign Co-Sign Detail Recorded Client Recorded Date Recorded By Document 10/24/20 11:22 DL [id number] 10/24/20 11:33 DL Document 11/15/20 09:41 RB [id number] 11/15/20 09:44 RB 10/24/20 11/15/20 11:22 09:41 Wound Center Nurse 1 #2- R LAT ANKLE -Combined with other wound No -Current Size (cm) - Length 2.7 2 -Current Size (cm) - Width 2.6 2 -Current Size (cm) - Depth 0.3 0.1 -Total Square Cm 7.02 4 -Photo Taken No -Tunneling No -Undermining/Tunneling No -Circular Undermining No -Exudate Amt Medium Medium -Exudate Type Serosanguineous Serosanguineous -Wound Margin Distinct, Flat & Intact Outline Attached -Granulation Amt Medium (34-66%) Medium (34-66%) -Granulation Quality [place],Red [place] -Slough/Fibrin Yes -Necrosis Amt Medium (34-66%) Small (1-33%) -Necrotic Tissue Type Adherent Slough Adherent Slough -Structure Exposed N/A N/A -Texture (Shakira-wound Skin Appearance) Localized Edema Assessed ,Scarring -Moisture (Shakira-wound Skin Appearance) Maceration Assessed -Color (Shakira-wound Skin Appearance) Rubor Assessed -Temperature (Shakira-wound Skin No Abnormality No Abnormality Appearance) (Pt Warm) (Pt Warm) -Tenderness on Palpation (Shakira-wound No Skin Appearance) -Ulcer Cleansing Wound Cleanser Wound Cleanser -Foul Odor after Cleansing No No -Anesthetic Used 4% Lidocaine 4% Lidocaine Solution Solution #1- R HALLUX post op -Combined with other wound No -Current Size (cm) - Length 2 0.1 -Current Size (cm) - Width 1.7 0.1 -Current Size (cm) - Depth 0.3 0.1 -Total Square Cm 3.4 0.01 -Photo Taken No -Tunneling No -Undermining/Tunneling No -Circular Undermining No -Exudate Amt Medium None Present -Exudate Type Serosanguineous -Wound Margin Distinct, Distinct, Outline Outline Attached Attached -Granulation Amt Small (1-33%) Medium (34-66%) -Granulation Quality [place] -Slough/Fibrin Yes -Necrosis Amt Large (67-100%) Medium (34-66%) -Necrotic Tissue Type Adherent Slough Adherent Slough -Structure Exposed Bone N/A -Texture (Shakira-wound Skin Appearance) Localized Edema Assessed ,Scarring -Moisture (Shakira-wound Skin Appearance) No Abnormality Assessed -Color (Shakira-wound Skin Appearance) Erythema Assessed -Temperature (Shakira-wound Skin No Abnormality No Abnormality Appearance) (Pt Warm) (Pt Warm) -Tenderness on Palpation (Shakira-wound No No Skin Appearance) -Ulcer Cleansing Wound Cleanser Wound Cleanser -Foul Odor after Cleansing Yes, Due to No Product Use -Anesthetic Used 4% Lidocaine 4% Lidocaine Solution Solution Right Calf (cm) 31 Right Ankle (cm) 22.3 11/15/20 09:44 Wound Center by Anai Zamora post op site incision well aproximated and sutures intact Initialized on 11/15/20 09:44 - END OF NOTE WC - Nurse 2 - General Ulcer CM Notes Start: 10/24/20 11:19 Freq: Status: Active Protocol: Activity Type Activity Date Activity User E-Sign Co-Sign Detail Recorded Client Recorded Date Recorded By Document 10/24/20 11:53 [id number] 10/24/20 12:06 Document 11/15/20 10:14 [id number] 11/15/20 10:17 10/24/20 11/15/20 11:53 10:14 Wound Center Nurse 2 #2- R LAT ANKLE -Time 11:56 10:14 -Correct Patient Yes Yes -Correct Side, Site, Position Yes Yes -Correct Procedure Yes Yes -Procedure Performed Yes Yes -Type of Procedure Debridement Debridement -Clinical Debridement Subcutaneous Subcutaneous -Tissue Removed Subcutaneous Subcutaneous -Post Debridement (cm) - Length 2.5 1.8 -Post Debridement (cm) - Width 3 2.5 -Post Debridement (cm) - Depth 0.2 0.2 -Total Square (Post) (cm) 7.5 4.50 -Area of Debridement (cm) - Length 2.5 1.8 -Area of Debridement (cm) - Width 3 2.5 -Total Square (Area) (cm) 7.5 4.50 -Tunneling No No -Undermining/Tunneling No No -Circular Undermining No No -Wound/Ulcer Outcome Not Healed Not Healed -Ulcer Cleansing Rinsed/ Rinsed/ Irrigated with Irrigated with Saline Saline -Foul Odor after Cleansing No No -Bioengineered Tissue No No -Bleeding Controlled with Pressure Pressure -Offloading Yes No -Type of Offloading Surgical Shoe -Treatment Response Procedure Procedure Tolerated Well Tolerated Well -Debridement - Subq, 1st 20sq cm Yes Yes #1- R HALLUX post op -Time 12:05 -Correct Patient Yes No -Correct Side, Site, Position Yes No -Correct Procedure Yes No -Procedure Performed Yes No -Type of Procedure Debridement -Clinical Debridement Subcutaneous -Tissue Removed Subcutaneous -Post Debridement (cm) - Length 1.5 -Post Debridement (cm) - Width 1.6 -Post Debridement (cm) - Depth 0.4 -Total Square (Post) (cm) 2.40 -Area of Debridement (cm) - Length 1.5 -Area of Debridement (cm) - Width 1.6 -Total Square (Area) (cm) 2.40 -Tunneling No -Circular Undermining No -Wound/Ulcer Outcome Not Healed Not Healed -Ulcer Cleansing Rinsed/ Irrigated with Saline -Foul Odor after Cleansing No -Bioengineered Tissue No -Bleeding Controlled with Pressure -Offloading Yes -Type of Offloading Camwalker -Treatment Response Procedure Not Tolerated Well -Debridement - Subq, 1st 20sq cm No Pain Scale: 0-10 Numeric Is Patient Pain Free? Yes Yes - Nurse 3 - General Ulcer D/C NN Start: 10/24/20 11:19 Freq: Status: Active Protocol: Activity Type Activity Date Activity User E-Sign Co-Sign Detail Recorded Client Recorded Date Recorded By Document 10/24/20 12:28 MW [id number] 10/24/20 12:28 MW Document 11/15/20 10:33 DL [id number] 11/15/20 10:34 DL 10/24/20 11/15/20 12:28 10:33 Wound Care Nurse 3 #2- R LAT ANKLE -Ulcer Cleansing Rinsed/ Rinsed/ Irrigated with Irrigated with Saline Saline -Foul Odor after Cleansing No No -Negative Pressure Wound Therapy N/A -Primary Dressing Applied C Hydrogel ($), NonAdherent Contact Layer -Other Dressing hydrogel -Primary Dressing Covered/Secured with Dry Gauze & Dry Gauze & Roll Gauze, Roll Gauze, Secured with Secured with Tape Tape #1- R HALLUX post op -Ulcer Cleansing Rinsed/ Irrigated with Saline -Foul Odor after Cleansing No No -Negative Pressure Wound Therapy N/A -Primary Dressing Applied NonAdherent Contact Layer -Other Dressing c.hydrogel betadine -Primary Dressing Covered/Secured with Dry Gauze, Dry Gauze & Secured with Roll Gauze Tape Treatment Response Procedure Procedure Tolerated Well Tolerated Well Pain Scale: 0-10 Numeric Is Patient Pain Free? Yes Yes Teaching: Wound Center Dressing Your Wound -Person Taught Patient,Family -Teaching Method Discussion, Demonstration -Response to teaching Verbalize understanding WC - Visit Discharge Discharge Condition Stable Stable Ambulatory Status Wheelchair Ambulatory, Wheelchair Transportation Private Auto Private Auto Accompanied by daughter Medication Reconcilliation completed & No provided to patient/care provider Clinical Summary of Care Provided Yes Wound debrided: lateral ankle Laterality: Right Wound Grade/Stage: 2 Type of Debridement: Excisional debridement Anesthesia Used: 5% Lidocaine Gel Depth: in the subcutaneous layer Percentage of wound debrided: 100 Instrument Used: #15 blade Tissue Removed: fibrous, devitalized subcutaneous, biofilm,slough Severity: Fat Layer Exposed Amount of bleeding with debridement: Mild Bleeding Controlled with: Pressure Patient tolerated procedure: Patient tolerated procedure well Assessment/Plan Assessment/Plan (1) Ulcer of right lower extremity with muscle involvement without evidence of necrosis: CODE(S): L97.915 - 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 without evidence of necrosis (2) Ulcer of right foot with bone involvement without evidence of necrosis: CODE(S): L97.516 - Non-pressure chronic ulcer of other part of right foot with bone involvement without evidence of necrosis (3) Other specified peripheral vascular diseases: CODE(S): I73.89 - Other specified peripheral vascular diseases (4) Type 2 diabetes mellitus with diabetic polyneuropathy: CODE(S): E11.42 - Type 2 diabetes mellitus with diabetic polyneuropathy QUALIFIERS: Diabetes mellitus custodial insulin use: unspecified termite renewal inspector insulin use status Qualified Code(s): E11.42 - Type 2 diabetes mellitus with diabetic polyneuropathy (5) Delayed wound healing: CODE(S): T14.8XXD - Other injury of unspecified body region, subsequent encounter (6) Unspecified protein-calorie malnutrition: CODE(S): E46 - Unspecified protein-calorie malnutrition QUALIFIERS: Protein-calorie malnutrition severity: unspecified severity Qualified Code(s): E46 - Unspecified protein-calorie malnutrition (7) Osteomyelitis of left foot: CODE(S): M86.9 - Osteomyelitis, unspecified PLAN: Patient seen and evaluated with daughter present I reviewed and discussed her case today. Chart review from her most recent hospital admission, recent surgical intervention, diagnostic data were reviewed. Debridement was performed today as noted in the clinical panel to all of the ulcer site after verbal consent was obtained. The following work up and care recommendations were made: Dressing: To change dressing daily with santyl applied nickel thickness daily to ankle and betadine gauze to hallux amputation site (right) Wash: Soap and water before each dressing change Offload: To continue with offloading surgical shoe Suture removal will be considered within the next 1 to 2 weeks. Vascular: She has impaired vascular status and had vascular surgery intervention on 10-05-[address] Wilson as the following: Abdominal right lower extremity arteriogram with right anterior tibial balloon angioplasty with improved perfusion. To follow-up as scheduled. Edema: It is okay to wear an [place] wrap and intermittently elevate Infection: Her cellulitis has resolved. She had an MRI performed on 09-29-20 which did not confirm diagnosis of osteomyelitis. She was seen by infectious disease specialist, Dr. Rico during her last hospital admission and there was a goal set for 4 weeks of linezolid. She will follow-up in the outpatient setting. Her prior cultures demonstrated MRSA and Enterococcus faecalis. During her last hospital admission her blood cultures were negative. Diagnostic data from surgery on 11-02-20: Clearance fragments that were sent to pathology microbiology were negative for osteomyelitis or bacterial growth. Most recent blood cultures are also negative Pain: This is controlled today. Host factors: Her comorbidities are noted and this may contribute to delayed healing. I recommend nutritional supplementation with Maciej to optimize healing. She understands she is still at risk for limb loss and delays in healing. I answered all the patient's questions. To return to the wound healing center in 1-2 weeks, or call sooner if the patient has any questions or concerns. Note: [employer] speech recognition parole agent software was used to create portions of this document. Sound-alike and misspelled words, as well as other parole agent errors may be contained in the documentation.
== END 2020-11-21 23:59 ==
LOC: WC 09:30
PROVIDERS: PCP Internal Medicine; Visit Provider Podiatrist Foot & Ankle Surgery
DX: E11.621 Type 2 diabetes mellitus with foot ulcer (principal); L97.516 Non-pressure chronic ulcer of other part of right foot with bone involvement without evidence of necrosis; E11.69 Type 2 diabetes mellitus with other specified complication; M86.9 Osteomyelitis, unspecified; E11.622 Type 2 diabetes mellitus with other skin ulcer; L97.312 Non-pressure chronic ulcer of right ankle with fat layer exposed; E11.51 Type 2 diabetes mellitus with diabetic peripheral angiopathy without gangrene; E11.42 Type 2 diabetes mellitus with diabetic polyneuropathy; L84 Corns and callosities; Z79.84 Long term (current) use of oral hypoglycemic drugs; Z79.82 Long term (current) use of aspirin; Z79.899 Other long term (current) drug therapy; Z89.411 Acquired absence of right great toe
CPT/HCPCS: 11042

== ENCOUNTER 2020-11-20 16:56 | Outpatient (RCR) | payer OTHER, SELFPAY ==
[2020-11-13 17:13] LABS: Hematocrit 34.2 % (37-47); Hemoglobin 11.1 g/dL (12.0-15.0); Mean Corp Hgb Conc 32.5 g/dL (32-36); Mean Corpuscular Hgb 29.8 pg (27.0-32.0); Mean Corpuscular Volume 91.7 fL (81-99); Mean Platelet Vol. 10.5 fl (6.2-12.0); Platelet Count 299 K/mm3 (150-450); RBC Distribution Width CV 16.1 % (11.6-14.6); RBC Distribution Width SD 52.9 fl (35.1-43.9); Red Blood Count 3.73 M/mm3 (4.2-5.4)
[2020-11-13 17:19] LABS: Erythrocyte Sedimentation Rate 62 mm/hr (0-30)
[2020-11-13 17:26] LABS: Anion Gap 9 (5-15); BUN 79 mg/dL (7-18); BUN/Creat Ratio 42.5 RATIO (10-20); Calcium,Total 9.3 mg/dL (8.5-10.1); Chloride 103 mmol/L (98-107); Creatinine, Serum 1.86 mg/dL (0.55-1.02); EST Glomerular Filtration Rate 28 mL/min (>60); Est Glom Filt Rate - Afr Amer 34 mL/min (>60); Glucose 104 mg/dL (74-106); Potassium 4.3 mmol/L (3.5-5.1); Sodium Level 138 mmol/L (136-145)
[2020-11-13 17:28] LABS: Vancomycin, Trough Level 18.3 ug/mL (5.0-15.0)
[2020-11-20 17:52] LABS: Hematocrit 36.6 % (37-47); Hemoglobin 11.8 g/dL (12.0-15.0); Mean Corp Hgb Conc 32.2 g/dL (32-36); Mean Corpuscular Hgb 30.2 pg (27.0-32.0); Mean Corpuscular Volume 93.6 fL (81-99); Platelet Count 284 K/mm3 (150-450); RBC Distribution Width CV 15.7 % (11.6-14.6); RBC Distribution Width SD 53.5 fl (35.1-43.9); Red Blood Count 3.91 M/mm3 (4.2-5.4); White Blood Count 10.6 K/mm3 (4.4-11.0)
[2020-11-20 18:03] LABS: Erythrocyte Sedimentation Rate 37 mm/hr (0-30)
[2020-11-20 18:18] LABS: Anion Gap 6 (5-15); BUN 86 mg/dL (7-18); BUN/Creat Ratio 41.5 RATIO (10-20); Calcium,Total 9.9 mg/dL (8.5-10.1); Chloride 103 mmol/L (98-107); Creatinine, Serum 2.07 mg/dL (0.55-1.02); EST Glomerular Filtration Rate 25 mL/min (>60); Est Glom Filt Rate - Afr Amer 30 mL/min (>60); Glucose 74 mg/dL (74-106); Potassium 4.1 mmol/L (3.5-5.1); Sodium Level 138 mmol/L (136-145)
[2020-11-20 18:20] LABS: Vancomycin, Trough Level 20.8 ug/mL (5.0-15.0)
== END 2020-11-20 18:00 | disposition home or self-care (01) ==
LOC: HHLAB 16:56
PROVIDERS: PCP Internal Medicine; Referring Provider Internal Medicine Infectious Disease; Visit Provider Internal Medicine
DX: E11.9 Type 2 diabetes mellitus without complications (principal)
CPT/HCPCS: 80048; 80202; 85027; 85652

== ENCOUNTER 2020-12-11 16:43 | Outpatient (RCR) | payer OTHER, SELFPAY ==
[2020-11-29 18:01] LABS: Hematocrit 36.9 % (37-47); Mean Corp Hgb Conc 32.5 g/dL (32-36); Mean Corpuscular Hgb 29.9 pg (27.0-32.0); Mean Platelet Vol. 11.2 fl (6.2-12.0); Platelet Count 208 K/mm3 (150-450); RBC Distribution Width CV 14.9 % (11.6-14.6); RBC Distribution Width SD 50.5 fl (35.1-43.9); Red Blood Count 4.01 M/mm3 (4.2-5.4); White Blood Count 11.6 K/mm3 (4.4-11.0)
[2020-11-29 18:12] LABS: Erythrocyte Sedimentation Rate 29 mm/hr (0-30)
[2020-11-29 18:26] LABS: Anion Gap 7 (5-15); BUN 80 mg/dL (7-18); BUN/Creat Ratio 46.2 RATIO (10-20); Calcium,Total 9.7 mg/dL (8.5-10.1); Chloride 106 mmol/L (98-107); Creatinine, Serum 1.73 mg/dL (0.55-1.02); EST Glomerular Filtration Rate 30 mL/min (>60); Est Glom Filt Rate - Afr Amer 37 mL/min (>60); Glucose 156 mg/dL (74-106); Potassium 4.2 mmol/L (3.5-5.1); Sodium Level 139 mmol/L (136-145); Vancomycin, Trough Level 12.6 ug/mL (5.0-15.0)
[2020-12-05 17:18] LABS: Hematocrit 37.7 % (37-47); Hemoglobin 12.1 g/dL (12.0-15.0); Mean Corp Hgb Conc 32.1 g/dL (32-36); Mean Corpuscular Hgb 29.6 pg (27.0-32.0); Mean Corpuscular Volume 92.2 fL (81-99); Mean Platelet Vol. 10.8 fl (6.2-12.0); Platelet Count 181 K/mm3 (150-450); RBC Distribution Width CV 14.3 % (11.6-14.6); RBC Distribution Width SD 48.7 fl (35.1-43.9); Red Blood Count 4.09 M/mm3 (4.2-5.4); White Blood Count 12.7 K/mm3 (4.4-11.0)
[2020-12-05 17:25] LABS: Anion Gap 10 (5-15); BUN 75 mg/dL (7-18); BUN/Creat Ratio 44.4 RATIO (10-20); Calcium,Total 9.9 mg/dL (8.5-10.1); Chloride 104 mmol/L (98-107); Creatinine, Serum 1.69 mg/dL (0.55-1.02); EST Glomerular Filtration Rate 31 mL/min (>60); Est Glom Filt Rate - Afr Amer 37 mL/min (>60); Glucose 146 mg/dL (74-106); Potassium 3.8 mmol/L (3.5-5.1); Sodium Level 141 mmol/L (136-145)
[2020-12-05 17:26] LABS: Vancomycin, Trough Level 11.4 ug/mL (5.0-15.0)
[2020-12-05 17:47] LABS: Erythrocyte Sedimentation Rate 29 mm/hr (0-30)
[2020-12-11 17:09] LABS: Anion Gap 10 (5-15); BUN 85 mg/dL (7-18); BUN/Creat Ratio 54.1 RATIO (10-20); Calcium,Total 9.5 mg/dL (8.5-10.1); Chloride 102 mmol/L (98-107); Creatinine, Serum 1.57 mg/dL (0.55-1.02); EST Glomerular Filtration Rate 34 mL/min (>60); Est Glom Filt Rate - Afr Amer 41 mL/min (>60); Glucose 159 mg/dL (74-106); Potassium 3.9 mmol/L (3.5-5.1); Sodium Level 138 mmol/L (136-145)
[2020-12-11 17:15] LABS: Vancomycin, Trough Level 11.5 ug/mL (5.0-15.0)
[2020-12-11 17:36] LABS: Erythrocyte Sedimentation Rate 29 mm/hr (0-30); Hemoglobin 12.2 g/dL (12.0-15.0); Mean Corpuscular Volume 91.1 fL (81-99); Mean Platelet Vol. 11.2 fl (6.2-12.0); Platelet Count 196 K/mm3 (150-450); RBC Distribution Width SD 47.6 fl (35.1-43.9); Red Blood Count 4.06 M/mm3 (4.2-5.4); White Blood Count 10.1 K/mm3 (4.4-11.0)
== END 2020-12-12 18:00 | disposition home or self-care (01) ==
LOC: HHLAB 16:43
PROVIDERS: PCP Internal Medicine; Referring Provider Internal Medicine Infectious Disease; Visit Provider Internal Medicine
DX: E11.9 Type 2 diabetes mellitus without complications (principal)
CPT/HCPCS: 80048; 80202; 85027; 85652

== ENCOUNTER 2020-12-13 10:30 | Outpatient (RCR) | payer OTHER, SELFPAY ==
[2020-11-22 00:40] VITALS: BP 139/62; PULSE 60; RESP 18; TEMP 36.6; BMI 24.9
[2020-11-22 15:11] VITALS: BP 153/44; PULSE 57; RESP 18; TEMP 36.1; BMI 24.9
--- NOTE | 2020-11-22 15:17 | WC ---
right hallux incision well approximated and sutures intact
--- NOTE | 2020-11-22 16:14 | PCM.PN.ID ---
Physical Exam Narrative Feeling better, foot improving, no issues with picc, no fever, no n/v/d. Const alert General Appearance: cooperative Resp normal air movement and clear to auscultation bilaterally Cardio regular rate and regular rhythm GI normal to inspection, nondistended, normoactive bowel sounds Skin Skin Narrative: foot wounds improving ID ID: Route of nutrition/ use of supplements: [] Nutritional Intake: [] IV Site: [] Mosher Catheter: [] Assessment & Plan Assessment/Plan (1) MRSA bacteremia: (2) Osteomyelitis of great toe of right foot: PLAN: Complicated by MRSA bacteremia. OR 11/02/[address] Bernal. Bcx rapidly cleared, TTE neg. Discharged with picc and 6 weeks iv vanc, stop date 12/14/20. Foot improving, adjusting vanc dose. will follow as needed
--- NOTE | 2020-11-22 17:26 | PN.PCM_ITS ---
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 She changes the surgical site with gauze, and the open ulcer site with santyl as advised. She already had vascular intervention and hindu by Dr. Wilson; additional intervention is not planned. She denies odor or redness. She denies fever, chill, nausea, vomiting, diarrhea. She also saw infectious disease specialist today as well. Progress of Wound: improving Objective Data Objective Data Vital Signs: Vital Signs Temp Pulse Resp BP 97 F L 57 L 18 153/44 H 11/22/20 15:11 11/22/20 15:11 11/22/20 15:11 11/22/20 15:11 Weight: 65.771 kg Body Mass Index (BMI) 24.9 Physical Exam Narrative Derm Extremity Narrative: Right foot/ankle: Ulceration to the lateral ankle down to subcutaneous tissue at ankle ; no exposed bone or tendon. no purulence, no fluctuance, no crepitus, no maloder, no streaking, no visible abscess present, no erythema noted. This was hallux amputation site with sutures intact without gapping, necrosis or drainage. MSK Contracture of lesser toes- chronic. Toe amputation noted. Vasc palpable DP and PT pulses bilateral. No bogginess or fluctuance to the right lower extremity. Neuro Neuro Narrative: significantly decreased sensation to feet bilateral. Const alert and oriented x3 Debridement Note Debridement Note Wound debrided: lateral right ankle Wound Grade/Stage: 1 Type of Debridement: Excisional debridement Anesthesia Used: 4% Lidocaine Solution Depth: in the subcutaneous layer Percentage of wound debrided: 100 Instrument Used: #15 blade Tissue Removed: fibrous, devitalized subcutaneous, biofilm, slough Severity: Fat Layer Exposed Amount of bleeding with debridement: Mild Bleeding Controlled with: Pressure Patient tolerated procedure: Patient tolerated procedure well Post-Debridement Measurements and Additional Note: Post-Debridement Measurements/Treatment IRLANDA - Nurse 1 - General Ulcer Assessment Start: 11/22/20 15:10 Freq: Status: Active Protocol: MISSY Activity Type Activity Date Activity User E-Sign Co-Sign Detail Recorded Client Recorded Date Recorded By Document 11/22/20 15:11 GRACIE [id number] 11/22/20 15:19 11/22/20 15:11 WC - Today's Visit Information Type of service Follow-up Visit (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/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 ) Arrival Mode Wheelchair Transfer Assistance None Patient Identification Verified (Name & Yes ) Patient Requires Transmission-Based No Precautions Height and Weight Body Mass Index (BMI) 24.9 BMI Classification Normal Vital Signs Temperature (97.8 F-99.1 F) 97 F L Temperature Source Temporal Pulse Rate (60-100) 57 L Pulse Location Monitor Respiratory Rate (12-18) 18 Respiratory rate source Observation Blood Pressure (90/60-120/80) 153/44 H Blood Pressure Mean (mm Hg) 80 Source Monitor Position Semi-Fowlers Blood Pressure Location Left Arm History Since Last Visit- (Skip if this is Patient's initial visit) Have you changed medications since your No last visit? Any new allergies or adverse reactions No Had a fall/change in ADL's that may No increase risk of falls Signs or symptoms of abuse and/or No neglect since last visit Have you been in the hospital since your No last visit? Has dressing in place as prescribed Yes Has compression in place as prescribed No Has offloadiing in place as prescribed Yes Experienced any changes in pain level or No management Left Footwear Surgical Shoe with pressure relief insole Right Footwear Surgical Shoe with pressure relief insole Pain Scale: 0-10 Numeric Is Patient Pain Free? Yes - Nurse 1 - General Ulcer Measurement Start: 11/22/20 15:10 Freq: Status: Active Protocol: Activity Type Activity Date Activity User E-Sign Co-Sign Detail Recorded Client Recorded Date Recorded By Document 11/22/20 15:11 GRACIE [id number] 11/22/20 15:19 GRACIE 11/22/20 15:11 Wound Center Nurse 1 #2- R LAT ANKLE -Combined with other wound No -Current Size (cm) - Length 1.3 -Current Size (cm) - Width 2.3 -Current Size (cm) - Depth 0.1 -Total Square Cm 2.99 -Tunneling No -Undermining/Tunneling No -Circular Undermining No -Exudate Amt Medium -Exudate Type Serosanguineous -Wound Margin Distinct, Outline Attached -Granulation Amt Medium (34-66%) -Granulation [place] -Slough/Fibrin Yes -Necrosis Amt Medium (34-66%) -Necrotic Tissue Type Adherent Slough -Structure Exposed N/A -Texture (Shakira-wound Skin Appearance) Assessed, Scarring -Moisture (Shakira-wound Skin Appearance) Assessed -Color (Shakira-wound Skin Appearance) Assessed -Temperature (Shakira-wound Skin No Abnormality Appearance) (Pt Warm) -Tenderness on Palpation (Shakira-wound No Skin Appearance) -Ulcer Cleansing Wound Cleanser -Foul Odor after Cleansing No -Anesthetic Used 4% Lidocaine Solution 11/22/20 15:17 Wound Center by Anai Zamora right hallux incision well approximated and sutures intact Initialized on 11/22/20 15:17 - END OF NOTE WC - Nurse 2 - General Ulcer CM Notes Start: 11/22/20 15:10 Freq: Status: Active Protocol: Activity Type Activity Date Activity User E-Sign Co-Sign Detail Recorded Client Recorded Date Recorded By Document 11/22/20 15:37 KYRA [id number] 11/22/20 15:40 KYRA 11/22/20 15:37 Wound Center Nurse 2 -Time 15:38 -Correct Patient Yes -Correct Side, Site, Position Yes -Correct Procedure Yes -Procedure Performed Yes -Type of Procedure Debridement -Clinical Debridement Subcutaneous -Tissue Removed Subcutaneous -Post Debridement (cm) - Length 1.8 -Post Debridement (cm) - Width 2.5 -Post Debridement (cm) - Depth 0.2 -Total Square (Post) (cm) 4.50 -Area of Debridement (cm) - Length 1.8 -Area of Debridement (cm) - Width 2.5 -Total Square (Area) (cm) 4.50 -Tunneling No -Undermining/Tunneling No -Wound/Ulcer Outcome Not Healed -Ulcer Cleansing Rinsed/ Irrigated with Saline -Foul Odor after Cleansing No -Bioengineered Tissue No -Bleeding Controlled with Pressure -Offloading No -Treatment Response Procedure Tolerated Well -Debridement - Subq, 1st 20sq cm Yes #1- R HALLUX CLUSTER -Correct Patient No -Correct Side, Site, Position No -Correct Procedure No -Procedure Performed No -Wound/Ulcer Outcome Amputation Pain Scale: 0-10 Numeric Is Patient Pain Free? Yes IRLANDA - Nurse 3 - General Ulcer D/C NN Start: 11/22/20 15:10 Freq: Status: Active Protocol: Activity Type Activity Date Activity User E-Sign Co-Sign Detail Recorded Client Recorded Date Recorded By Document 11/22/20 15:52 RB [id number] 11/22/20 15:53 RB 11/22/20 15:52 Wound Care Nurse 3 #2- R LAT ANKLE -Ulcer Cleansing Rinsed/ Irrigated with Saline -Other Dressing hydrogel -Primary Dressing Covered/Secured with Dry Gauze,Dry Gauze & Roll Gauze,Secured with Tape Right -Other colten Treatment Response Procedure Tolerated Well Pain Scale: 0-10 Numeric Is Patient Pain Free? 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 involvement without evidence of necrosis (3) Other specified peripheral vascular diseases: CODE(S): I73.89 - Other specified peripheral vascular diseases (4) Type 2 diabetes mellitus with diabetic polyneuropathy: CODE(S): E11.42 - Type 2 diabetes mellitus with diabetic polyneuropathy QUALIFIERS: Diabetes mellitus long line teamster insulin use: unspecified nursing home insulin use status Qualified Code(s): E11.42 - Type 2 diabetes mellitus with diabetic polyneuropathy (5) Delayed wound healing: CODE(S): T14.8XXD - Other injury of unspecified body region, subsequent encounter (6) Unspecified protein-calorie malnutrition: CODE(S): E46 - Unspecified protein-calorie malnutrition QUALIFIERS: Protein-calorie malnutrition severity: unspecified severity Qualified Code(s): E46 - Unspecified protein-calorie malnutrition (7) Osteomyelitis of left foot: CODE(S): M86.9 - Osteomyelitis, unspecified PLAN: Patient seen and evaluated with daughter present I reviewed and discussed her case today. Chart review from her most recent hospital admission, recent surgical intervention, diagnostic data were reviewed. Debridement was performed today as noted in the clinical panel to all of the ulcer site after verbal consent was obtained. The following work up and care recommendations were made: Dressing: To change dressing daily with santyl applied nickel thickness daily to ankle and gauze to hallux amputation site (right). Suture removal be performed next week. Wash: Soap and water before each dressing change Offload: To continue with offloading surgical shoe to keep pressure off of the amputation site and lateral ankle Vascular: She has impaired vascular status and had vascular surgery intervention on 10-05-[address] Wilson as the following: Abdominal right lower extremity arteriogram with right anterior tibial balloon angioplasty with improved perfusion. To follow-up as scheduled. Edema: It is okay to wear an [place] wrap and intermittently elevate Infection: Her cellulitis has resolved. She had an MRI performed on 09-29-20 which did not confirm diagnosis of osteomyelitis. To complete IV antibiotics with a stop date of 12-14-20. She saw Dr. Rico this afternoon who updated her antibiotic dosing. She was reassured no local signs of infection are noted. Diagnostic data from surgery on 11-02-20: Clearance fragments that were sent to pathology and microbiology which were negative for osteomyelitis or bacterial growth, respectively. Most recent blood cultures are also negative Pain: This is controlled today. Host factors: Her comorbidities are noted and this may contribute to delayed healing. I recommend nutritional supplementation with Maciej to optimize healing. She understands she is still at risk for limb loss and delays in healing. I answered all the patient's questions. To return to the wound healing center in 1 week, or call sooner if the patient has any questions or concerns. Note: [employer] speech recognition card painter software was used to create portions of this document. Sound-alike and misspelled words, as well as other card painter errors may be contained in the documentation.
[2020-11-29 11:02] VITALS: BP 127/65; PULSE 66; RESP 17; TEMP 36.4; BMI 24.9
--- NOTE | 2020-11-29 12:08 | PCM.WC.PN ---
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 She changes the surgical site with gauze, and the open ulcer site with santyl as advised. Home health has been assisting with this. She already had vascular intervention and anabaptist by Dr. Wilson; additional intervention is not planned. She denies odor or redness. She denies fever, chill, nausea, vomiting, diarrhea. She is ready for suture removal at her hallux amputation site today. Progress of Wound: improving Objective Data Objective Data Vital Signs: Vital Signs Temp Pulse Resp BP 97.5 F L 66 17 127/65 H 11/29/20 11:02 11/29/20 11:02 11/29/20 11:02 11/29/20 11:02 Weight: 65.771 kg Body Mass Index (BMI) 24.9 Physical Exam Narrative Derm Extremity Narrative: Right foot/ankle: Ulceration to the lateral ankle down to subcutaneous tissue at ankle ; no exposed bone or tendon. Improvement in granulation tissue with reduced ulcer depth. No purulence, no fluctuance, no crepitus, no maloder, no streaking, no visible abscess present, no erythema noted. This was hallux amputation site with sutures intact without gapping, necrosis or drainage. Upon removal of the sutures there is a small skin discontinuity to the distalmost aspect with granular base and no deep probing or underlying necrosis or purulence on expression. MSK Contracture of lesser toes- chronic. Toe amputation noted. Vasc palpable DP and PT pulses bilateral. No bogginess or fluctuance to the right lower extremity. Neuro Neuro Narrative: significantly decreased sensation to feet bilateral. Const alert and oriented x3 Debridement Note Debridement Note Wound debrided: Lateral right ankle and distal hallux amputation site Wound Grade/Stage: 1 Type of Debridement: Excisional debridement Anesthesia Used: 4% Lidocaine Solution Depth: in the subcutaneous layer Percentage of wound debrided: 100 Instrument Used: #15 blade Tissue Removed: fibrous, devitalized subcutaneous, biofilm, slough Severity: Fat Layer Exposed Amount of bleeding with debridement: Mild Bleeding Controlled with: Pressure Patient tolerated procedure: Patient tolerated procedure well Post-Debridement Measurements and Additional Note: Post-Debridement Measurements/Treatment - Nurse 1 - General Ulcer Assessment Start: 11/22/20 15:10 Freq: Status: Active Protocol: MISSY Activity Type Activity Date Activity User E-Sign Co-Sign Detail Recorded Client Recorded Date Recorded By Document 11/22/20 15:11 RB [id number] 11/22/20 15:19 RB Document 11/29/20 11:02 BM [id number] 11/29/20 11:08 [facility] 11/22/20 11/29/20 15:11 11:02 - Today's Visit Information Type of service Follow-up Visit Follow-up Visit (Physician/AIRPLANE PATROLLER (Physician/AIRPLANE PATROLLER ) ) Arrival Mode Wheelchair Wheelchair Transfer Assistance None None Patient Identification Verified (Name & Yes Yes ) Patient Requires Transmission-Based No No Precautions Safety Precautions NA Finger Stick Blood Sugar(mg/dl) (if 95 indicated): Blood Sugar Stated by Patient Height and Weight Body Mass Index (BMI) 24.9 24.9 BMI Classification Normal Normal Vital Signs Temperature (97.8 F-99.1 F) 97 F L 97.5 F L Temperature Source Temporal Temporal Pulse Rate (60-100) 57 L 66 Pulse Location Monitor Monitor Respiratory Rate (12-18) 18 17 Respiratory rate source Observation Observation Blood Pressure (90/60-120/80) 153/44 H 127/65 H Blood Pressure Mean (mm Hg) 80 85 Source Monitor Monitor Position Semi-Fowlers Sitting Blood Pressure Location Left Arm Right Arm History Since Last Visit- (Skip if this is Patient's initial visit) Have you changed medications since your No No last visit? Any new allergies or adverse reactions No No Had a fall/change in ADL's that may No No increase risk of falls Signs or symptoms of abuse and/or No No neglect since last visit Have you been in the hospital since your No No last visit? Has dressing in place as prescribed Yes Yes Has compression in place as prescribed No Yes Has offloadiing in place as prescribed Yes Yes Experienced any changes in pain level or No No management Left Footwear Surgical Shoe Surgical Shoe with pressure with pressure relief insole relief insole Right Footwear Surgical Shoe Regular Shoe with pressure relief insole Pain Scale: 0-10 Numeric Is Patient Pain Free? Yes Yes - Nurse 1 - General Ulcer Measurement Start: 11/22/20 15:10 Freq: Status: Active Protocol: Activity Type Activity Date Activity User E-Sign Co-Sign Detail Recorded Client Recorded Date Recorded By Document 11/22/20 15:11 RB [id number] 11/22/20 15:19 RB Document 11/29/20 11:02 [facility] [id number] 11/29/20 11:08 [facility] 11/22/20 11/29/20 15:11 11:02 Wound Center Nurse 1 # RIGHT GREAT TOE AMP SITE -Current Size (cm) - Length 0.1 -Current Size (cm) - Width 0.1 -Current Size (cm) - Depth 0.1 -Total Square Cm 0.01 -Exudate Amt None Present -Wound Margin Distinct, Outline Attached -Slough/Fibrin No -Necrosis Amt None Present (0 %) -Texture (Shakira-wound Skin Appearance) Assessed -Moisture (Shakira-wound Skin Appearance) Assessed -Color (Shakira-wound Skin Appearance) Assessed -Temperature (Shakira-wound Skin No Abnormality Appearance) (Pt Warm) -Ulcer Cleansing Rinsed/ Irrigated with Saline -Foul Odor after Cleansing No -Anesthetic Used 4% Lidocaine Solution #2- R LAT ANKLE -Combined with other wound No -Current Size (cm) - Length 1.3 1 -Current Size (cm) - Width 2.3 2 -Current Size (cm) - Depth 0.1 0.1 -Total Square Cm 2.99 2 -Tunneling No -Undermining/Tunneling No Yes -Undermining/Tunneling Starts (O'clock 12 ) -Undermining/Tunneling Ends (O'clock) 2 -Maximum Distance (cm) 0.2 -Circular Undermining No -Exudate Amt Medium Medium -Exudate Type Serosanguineous Serosanguineous -Wound Margin Distinct, Distinct, Outline Outline Attached Attached -Granulation Amt Medium (34-66%) Medium (34-66%) -Granulation Quality [place] Hyper- granulation -Slough/Fibrin Yes Yes -Necrosis Amt Medium (34-66%) Medium (34-66%) -Necrotic Tissue Type Adherent Slough Adherent Slough -Structure Exposed N/A -Texture (Shakira-wound Skin Appearance) Assessed, Assessed Scarring -Moisture (Shakira-wound Skin Appearance) Assessed -Color (Shakira-wound Skin Appearance) Assessed Assessed -Temperature (Shakira-wound Skin No Abnormality Appearance) (Pt Warm) -Tenderness on Palpation (Shakira-wound No No Skin Appearance) -Ulcer Cleansing Wound Cleanser Rinsed/ Irrigated with Saline -Foul Odor after Cleansing No No -Anesthetic Used 4% Lidocaine 4% Lidocaine Solution Solution Right Calf (cm) 31.4 Right Ankle (cm) 21.1 11/22/20 15:17 Wound Center by Anai Zamora right hallux incision well approximated and sutures intact Initialized on 11/22/20 15:17 - END OF NOTE WC - Nurse 2 - General Ulcer CM Notes Start: 11/22/20 15:10 Freq: Status: Active Protocol: Activity Type Activity Date Activity User E-Sign Co-Sign Detail Recorded Client Recorded Date Recorded By Document 11/22/20 15:37 KYRA [id number] 11/22/20 15:40 JF Document 11/29/20 11:15 JF [id number] 11/29/20 11:22 11/22/20 11/29/20 15:37 11:15 Wound Center Nurse 2 # RIGHT GREAT TOE AMP SITE -Time 11:18 -Correct Patient Yes -Correct Side, Site, Position Yes -Correct Procedure Yes -Procedure Performed Yes -Type of Procedure Debridement -Clinical Debridement Subcutaneous -Tissue Removed Subcutaneous -Post Debridement (cm) - Length 0.2 -Post Debridement (cm) - Width 0.8 -Post Debridement (cm) - Depth 0.1 -Total Square (Post) (cm) 0.16 -Area of Debridement (cm) - Length 0.2 -Area of Debridement (cm) - Width 0.8 -Total Square (Area) (cm) 0.16 -Tunneling No -Undermining/Tunneling No -Circular Undermining No -Wound/Ulcer Outcome Not Healed -Bioengineered Tissue No -Bleeding Controlled with Pressure -Offloading Yes -Type of Offloading Surgical Shoe -Treatment Response Procedure Tolerated Well -Debridement - Subq, 1st 20sq cm No #2- R LAT ANKLE -Time 15:38 11:20 -Correct Patient Yes Yes -Correct Side, Site, Position Yes Yes -Correct Procedure Yes Yes -Procedure Performed Yes Yes -Type of Procedure Debridement Debridement -Clinical Debridement Subcutaneous Subcutaneous -Tissue Removed Subcutaneous Subcutaneous -Post Debridement (cm) - Length 1.8 1.4 -Post Debridement (cm) - Width 2.5 2 -Post Debridement (cm) - Depth 0.2 0.2 -Total Square (Post) (cm) 4.50 2.8 -Area of Debridement (cm) - Length 1.8 1.4 -Area of Debridement (cm) - Width 2.5 2 -Total Square (Area) (cm) 4.50 2.8 -Tunneling No No -Undermining/Tunneling No No -Circular Undermining No -Wound/Ulcer Outcome Not Healed Not Healed -Ulcer Cleansing Rinsed/ Rinsed/ Irrigated with Irrigated with Saline Saline -Foul Odor after Cleansing No No -Bioengineered Tissue No No -Bleeding Controlled with Pressure Pressure -Offloading No Yes -Type of Offloading Surgical Shoe -Treatment Response Procedure Procedure Tolerated Well Tolerated Well -Debridement - Subq, 1st 20sq cm Yes Yes #1- R HALLUX CLUSTER -Correct Patient No -Correct Side, Site, Position No -Correct Procedure No -Procedure Performed No -Wound/Ulcer Outcome Amputation Pain Scale: 0-10 Numeric Is Patient Pain Free? Yes Yes - Nurse 3 - General Ulcer D/C NN Start: 11/22/20 15:10 Freq: Status: Active Protocol: Activity Type Activity Date Activity User E-Sign Co-Sign Detail Recorded Client Recorded Date Recorded By Document 11/22/20 15:52 [id number] 11/22/20 15:53 Document 11/29/20 11:28 [facility] [id number] 11/29/20 11:29 [facility] 11/22/20 11/29/20 15:52 11:28 Wound Care Nurse 3 # RIGHT GREAT TOE AMP SITE -Ulcer Cleansing Rinsed/ Irrigated with Saline -Foul Odor after Cleansing No -Other Dressing HYDROGEL -Primary Dressing Covered/Secured with Dry Gauze, Secured with Tape -Other Covering DRSG PER ML ORTHOPEDIC DESIGNER #2- R LAT ANKLE -Ulcer Cleansing Rinsed/ Rinsed/ Irrigated with Irrigated with Saline Saline -Foul Odor after Cleansing No -Other Dressing hydrogel HYDROGEL -Primary Dressing Covered/Secured with Dry Gauze,Dry Dry Gauze, Gauze & Roll Secured with Gauze,Secured Tape with Tape -Other Covering DRSG PER ML ORTHOPEDIC DESIGNER Right -Compression Wrap Colten Wrap -Other colten Treatment Response Procedure Procedure Tolerated Well Tolerated Well Pain Scale: 0-10 Numeric Is Patient Pain Free? Yes - Visit Discharge Discharge Condition Stable Stable Ambulatory Status Wheelchair Wheelchair Transportation Private Auto Private Auto Medication Reconcilliation completed & No provided to patient/care provider Clinical Summary of Care Provided Yes Assessment/Plan Assessment/Plan (1) Ulcer of right lower extremity with muscle involvement without evidence of necrosis: CODE(S): L97.915 - 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 without evidence of necrosis (2) Other specified peripheral vascular diseases: CODE(S): I73.89 - Other specified peripheral vascular diseases (3) Type 2 diabetes mellitus with diabetic polyneuropathy: CODE(S): E11.42 - Type 2 diabetes mellitus with diabetic polyneuropathy QUALIFIERS: Diabetes mellitus group home insulin use: unspecified group home insulin use status Qualified Code(s): E11.42 - Type 2 diabetes mellitus with diabetic polyneuropathy (4) Delayed wound healing: CODE(S): T14.8XXD - Other injury of unspecified body region, subsequent encounter (5) Unspecified protein-calorie malnutrition: CODE(S): E46 - Unspecified protein-calorie malnutrition QUALIFIERS: Protein-calorie malnutrition severity: unspecified severity Qualified Code(s): E46 - Unspecified protein-calorie malnutrition (6) Osteomyelitis of right foot: CODE(S): M86.9 - Osteomyelitis, unspecified (7) Chronic ulcer of right foot with fat layer exposed: CODE(S): L97.512 - Non-pressure chronic ulcer of other part of right foot with fat layer exposed (8) Chronic ulcer of right leg with fat layer exposed: CODE(S): L97.912 - Non-pressure chronic ulcer of unspecified part of right lower leg with fat layer exposed (9) Type 2 diabetes mellitus with diabetic polyneuropathy: CODE(S): E11.42 - Type 2 diabetes mellitus with diabetic polyneuropathy (10) Rheumatoid arthritis: CODE(S): M06.9 - Rheumatoid arthritis, unspecified PLAN: Patient seen and evaluated with daughter present I reviewed and discussed her case today. Chart review from her most recent hospital admission, recent surgical intervention, diagnostic data were reviewed. Debridement was performed today as noted in the clinical panel to all of the ulcer site after verbal consent was obtained. Her sutures were also removed to the right foot. The following work up and care recommendations were made: Dressing: To change dressing daily with santyl applied nickel thickness daily to ankle and hydrogel/Adaptic to hallux amputation site (right). Wash: Soap and water before each dressing change Offload: To continue with offloading surgical shoe to keep pressure off of the amputation site and lateral ankle Vascular: She has impaired vascular status and had vascular surgery intervention on 10-05-[address] Wilson as the following: Abdominal right lower extremity arteriogram with right anterior tibial balloon angioplasty with improved perfusion. To follow-up as scheduled. Edema: It is okay to wear an Colten wrap and intermittently elevate Infection: Her cellulitis has resolved. She had an MRI performed on 09-29-20 which did not confirm diagnosis of osteomyelitis. To complete IV antibiotics with a stop date of 12-14-20. She saw Dr. Rico this afternoon who updated her antibiotic dosing. She was reassured no local signs of infection are noted. Diagnostic data from surgery on 11-02-20: Clearance fragments that were sent to pathology and microbiology which were negative for osteomyelitis or bacterial growth, respectively. Most recent blood cultures are also negative Pain: This is controlled today. Host factors: Her comorbidities are noted and this may contribute to delayed healing. I recommend nutritional supplementation with Maciej to optimize healing. She understands she is still at risk for limb loss and delays in healing. I answered all the patient's questions. To return to the wound healing center in 2 weeks, or call sooner if the patient has any questions or concerns. Note: [facility] speech recognition legal project manager software was used to create portions of this document. Sound-alike and misspelled words, as well as other legal project manager errors may be contained in the documentation.
[2020-12-13 10:19] VITALS: BP 138/63; PULSE 60; RESP 18; TEMP 36.1; BMI 24.9
--- NOTE | 2020-12-13 20:31 | PCM.WC.PN ---
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 She changes the surgical site with gauze, and the open ulcer site with santyl as advised. Home health has been assisting with this. She already had vascular intervention and religion by Dr. Wilson; additional intervention is not planned. She denies odor or redness. She denies fever, chill, nausea, vomiting, diarrhea. She had her sutures removed at her hallux amputation site during her last visit and denies drainage; she thinks this surgical site has healed. Progress of Wound: improving Objective Data Objective Data Vital Signs: Vital Signs Temp Pulse Resp BP 97 F L 60 18 138/63 H 12/13/20 10:19 12/13/20 10:19 12/13/20 10:19 12/13/20 10:19 Weight: 65.771 kg Body Mass Index (BMI) 24.9 Physical Exam Narrative Derm Extremity Narrative: Right foot/ankle: Ulceration to the lateral ankle down to subcutaneous tissue at ankle ; no exposed bone or tendon. Improvement in granulation tissue with reduced ulcer depth. No purulence, no fluctuance, no crepitus, no maloder, no streaking, no visible abscess present, no erythema noted. This was hallux amputation site has fully healed and there is full epithelialization without drainage MSK Contracture of lesser toes- chronic. Toe amputation noted. Vasc palpable DP and PT pulses bilateral. No bogginess or fluctuance to the right lower extremity. Neuro Neuro Narrative: significantly decreased sensation to feet bilateral. Const alert and oriented x3 Debridement Note Debridement Note Wound debrided: lateral right ankle Wound Grade/Stage: 1 Type of Debridement: Excisional debridement Anesthesia Used: 4% Lidocaine Solution Depth: in the subcutaneous layer Percentage of wound debrided: 100 Instrument Used: #15 blade Tissue Removed: fibrous, devitalized subcutaneous, biofilm, slough Severity: Fat Layer Exposed Amount of bleeding with debridement: Mild Bleeding Controlled with: Pressure Patient tolerated procedure: Patient tolerated procedure well Post-Debridement Measurements and Additional Note: Post-Debridement Measurements/Treatment WC - Nurse 1 - General Ulcer Assessment Start: 11/22/20 15:10 Freq: Status: Active Protocol: WC.LOWEXT Activity Type Activity Date Activity User E-Sign Co-Sign Detail Recorded Client Recorded Date Recorded By Document 11/22/20 15:11 RB [id number] 11/22/20 15:19 RB Document 11/29/20 11:02 BM [id number] 11/29/20 11:08 BM Document 12/13/20 10:19 RB [id number] 12/13/20 10:30 RB 11/22/20 11/29/20 12/13/20 15:11 11:02 10:19 - Today's Visit Information Type of service Follow-up Visit Follow-up Visit Follow-up Visit (Physician/HOIST CYLINDER LOADER (Physician/HOIST CYLINDER LOADER (Physician/HOIST CYLINDER LOADER ) ) ) Arrival Mode Wheelchair Wheelchair Ambulatory Transfer Assistance None None None Patient Identification Verified (Name & Yes Yes Yes ) Patient Requires Transmission-Based No No No Precautions Safety Precautions NA Finger Stick Blood Sugar(mg/dl) (if 95 indicated): Blood Sugar Stated by Patient Height and Weight Body Mass Index (BMI) 24.9 24.9 24.9 BMI Classification Normal Normal Normal Vital Signs Temperature (97.8 F-99.1 F) 97 F L 97.5 F L 97 F L Temperature Source Temporal Temporal Temporal Pulse Rate (60-100) 57 L 66 60 Pulse Location Monitor Monitor Monitor Respiratory Rate (12-18) 18 17 18 Respiratory rate source Observation Observation Observation Blood Pressure (90/60-120/80) 153/44 H 127/65 H 138/63 H Blood Pressure Mean (mm Hg) 80 85 88 Source Monitor Monitor Monitor Position Semi-Fowlers Sitting Semi-Fowlers Blood Pressure Location Left Arm Right Arm Left Arm History Since Last Visit- (Skip if this is Patient's initial visit) Have you changed medications since your No No No last visit? Any new allergies or adverse reactions No No No Had a fall/change in ADL's that may No No No increase risk of falls Signs or symptoms of abuse and/or No No No neglect since last visit Have you been in the hospital since your No No No last visit? Has dressing in place as prescribed Yes Yes Yes Has compression in place as prescribed No Yes Yes Has offloadiing in place as prescribed Yes Yes No Experienced any changes in pain level or No No No management Left Footwear Surgical Shoe Surgical Shoe with pressure with pressure relief insole relief insole Right Footwear Surgical Shoe Regular Shoe with pressure relief insole Pain Scale: 0-10 Numeric Is Patient Pain Free? Yes Yes WC - Nurse 1 - General Ulcer Measurement Start: 11/22/20 15:10 Freq: Status: Active Protocol: Activity Type Activity Date Activity User E-Sign Co-Sign Detail Recorded Client Recorded Date Recorded By Document 11/22/20 15:11 RB [id number] 11/22/20 15:19 RB Document 11/29/20 11:02 [facility] [id number] 11/29/20 11:08 [facility] Document 12/13/20 10:19 RB [id number] 12/13/20 10:30 RB 11/22/20 11/29/20 12/13/20 15:11 11:02 10:19 Wound Center Nurse 1 # RIGHT GREAT TOE AMP SITE -Combined with other wound No -Current Size (cm) - Length 0.1 0.1 -Current Size (cm) - Width 0.1 0.1 -Current Size (cm) - Depth 0.1 0.1 -Total Square Cm 0.01 0.01 -Tunneling No -Undermining/Tunneling No -Circular Undermining No -Exudate Amt None Present None Present -Wound Margin Distinct, Flat & Intact Outline Attached -Granulation Amt Medium (34-66%) -Granulation Quality [place] -Slough/Fibrin No Yes -Necrosis Amt None Present (0 Small (1-33%) %) -Necrotic Tissue Type Adherent Slough -Structure Exposed N/A -Texture (Shakira-wound Skin Appearance) Assessed Assessed, Scarring -Moisture (Shakira-wound Skin Appearance) Assessed Assessed -Color (Shakira-wound Skin Appearance) Assessed Assessed -Temperature (Shakira-wound Skin No Abnormality No Abnormality Appearance) (Pt Warm) (Pt Warm) -Tenderness on Palpation (Shakira-wound No Skin Appearance) -Ulcer Cleansing Rinsed/ Wound Cleanser Irrigated with Saline -Foul Odor after Cleansing No No -Anesthetic Used 4% Lidocaine 4% Lidocaine Solution Solution #2- R LAT ANKLE -Combined with other wound No No -Current Size (cm) - Length 1.3 1 1.5 -Current Size (cm) - Width 2.3 2 1 -Current Size (cm) - Depth 0.1 0.1 0.1 -Total Square Cm 2.99 2 1.5 -Tunneling No No -Undermining/Tunneling No Yes No -Undermining/Tunneling Starts (O'clock 12 ) -Undermining/Tunneling Ends (O'clock) 2 -Maximum Distance (cm) 0.2 -Circular Undermining No No -Exudate Amt Medium Medium Medium -Exudate Type Serosanguineous Serosanguineous Serosanguineous -Wound Margin Distinct, Distinct, Distinct, Outline Outline Outline Attached Attached Attached -Granulation Amt Medium (34-66%) Medium (34-66%) Medium (34-66%) -Granulation Quality [place] Hyper- [place] granulation -Slough/Fibrin Yes Yes Yes -Necrosis Amt Medium (34-66%) Medium (34-66%) Small (1-33%) -Necrotic Tissue Type Adherent Slough Adherent Slough Adherent Slough -Structure Exposed N/A N/A -Texture (Shakira-wound Skin Appearance) Assessed, Assessed Assessed, Scarring Scarring -Moisture (Shakira-wound Skin Appearance) Assessed Assessed -Color (Shakira-wound Skin Appearance) Assessed Assessed Assessed -Temperature (Shakira-wound Skin No Abnormality No Abnormality Appearance) (Pt Warm) (Pt Warm) -Tenderness on Palpation (Shakira-wound No No No Skin Appearance) -Ulcer Cleansing Wound Cleanser Rinsed/ Wound Cleanser Irrigated with Saline -Foul Odor after Cleansing No No No -Anesthetic Used 4% Lidocaine 4% Lidocaine 4% Lidocaine Solution Solution Solution Right Calf (cm) 31.4 Right Ankle (cm) 21.1 11/22/20 15:17 Wound Center by Anai Zamora right hallux incision well approximated and sutures intact Initialized on 11/22/20 15:17 - END OF NOTE WC - Nurse 2 - General Ulcer CM Notes Start: 11/22/20 15:10 Freq: Status: Active Protocol: Activity Type Activity Date Activity User E-Sign Co-Sign Detail Recorded Client Recorded Date Recorded By Document 11/22/20 15:37 KYRA [id number] 11/22/20 15:40 Document 11/29/20 11:15 JF [id number] 11/29/20 11:22 Document 12/13/20 10:49 KYRA [id number] 12/13/20 10:52 11/22/20 11/29/20 12/13/20 15:37 11:15 10:49 Wound Center Nurse 2 # RIGHT GREAT TOE AMP SITE -Time 11:18 -Correct Patient Yes No -Correct Side, Site, Position Yes No -Correct Procedure Yes No -Procedure Performed Yes No -Type of Procedure Debridement -Clinical Debridement Subcutaneous -Tissue Removed Subcutaneous -Post Debridement (cm) - Length 0.2 0 -Post Debridement (cm) - Width 0.8 0 -Post Debridement (cm) - Depth 0.1 0 -Total Square (Post) (cm) 0.16 0 -Area of Debridement (cm) - Length 0.2 0 -Area of Debridement (cm) - Width 0.8 0 -Total Square (Area) (cm) 0.16 0 -Tunneling No -Undermining/Tunneling No -Circular Undermining No -Wound/Ulcer Outcome Not Healed Healed- Epithelialized -Bioengineered Tissue No -Bleeding Controlled with Pressure -Offloading Yes -Type of Offloading Surgical Shoe -Treatment Response Procedure Tolerated Well -Debridement - Subq, 1st 20sq cm No #2- R LAT ANKLE -Time 15:38 11:20 10:50 -Correct Patient Yes Yes Yes -Correct Side, Site, Position Yes Yes Yes -Correct Procedure Yes Yes Yes -Procedure Performed Yes Yes Yes -Type of Procedure Debridement Debridement Debridement -Clinical Debridement Subcutaneous Subcutaneous Subcutaneous -Tissue Removed Subcutaneous Subcutaneous Dermis -Post Debridement (cm) - Length 1.8 1.4 1.3 -Post Debridement (cm) - Width 2.5 2 1.8 -Post Debridement (cm) - Depth 0.2 0.2 0.2 -Total Square (Post) (cm) 4.50 2.8 2.34 -Area of Debridement (cm) - Length 1.8 1.4 1.3 -Area of Debridement (cm) - Width 2.5 2 1.8 -Total Square (Area) (cm) 4.50 2.8 2.34 -Tunneling No No No -Undermining/Tunneling No No No -Circular Undermining No No -Wound/Ulcer Outcome Not Healed Not Healed Healed- Surgical Closure -Ulcer Cleansing Rinsed/ Rinsed/ Irrigated with Irrigated with Saline Saline -Foul Odor after Cleansing No No No -Bioengineered Tissue No No No -Bleeding Controlled with Pressure Pressure Pressure -Offloading No Yes Yes -Type of Offloading Surgical Shoe Surgical Shoe -Treatment Response Procedure Procedure Procedure Tolerated Well Tolerated Well Tolerated Well -Debridement - Subq, 1st 20sq cm Yes Yes Yes #1- R HALLUX CLUSTER -Correct Patient No -Correct Side, Site, Position No -Correct Procedure No -Procedure Performed No -Wound/Ulcer Outcome Amputation Pain Scale: 0-10 Numeric Is Patient Pain Free? Yes Yes - Nurse 3 - General Ulcer D/C NN Start: 11/22/20 15:10 Freq: Status: Active Protocol: Activity Type Activity Date Activity User E-Sign Co-Sign Detail Recorded Client Recorded Date Recorded By Document 11/22/20 15:52 RB [id number] 11/22/20 15:53 RB Document 11/29/20 11:28 BM [id number] 11/29/20 11:29 BM Document 12/13/20 11:07 DL [id number] 12/13/20 11:08 DL 11/22/20 11/29/20 12/13/20 15:52 11:28 11:07 Wound Care Nurse 3 # RIGHT GREAT TOE AMP SITE -Ulcer Cleansing Rinsed/ Irrigated with Saline -Foul Odor after Cleansing No -Other Dressing HYDROGEL -Primary Dressing Covered/Secured with Dry Gauze, Secured with Tape -Other Covering DRSG PER ML IMMIGRATION COORDINATOR #2- R LAT ANKLE -Ulcer Cleansing Rinsed/ Rinsed/ Rinsed/ Irrigated with Irrigated with Irrigated with Saline Saline Saline -Foul Odor after Cleansing No No -Other Dressing hydrogel HYDROGEL hydrogel -Primary Dressing Covered/Secured with Dry Gauze,Dry Dry Gauze, Dry Gauze & Gauze & Roll Secured with Roll Gauze, Gauze,Secured Tape Secured with with Tape Tape -Other Covering DRSG PER ML IMMIGRATION COORDINATOR Right -Compression Wrap Colten Wrap -Other colten colten Treatment Response Procedure Procedure Procedure Tolerated Well Tolerated Well Tolerated Well Pain Scale: 0-10 Numeric Is Patient Pain Free? Yes Yes - Visit Discharge Discharge Condition Stable Stable Stable Ambulatory Status Wheelchair Wheelchair Wheelchair Transportation Private Auto Private Auto Private Auto Medication Reconcilliation completed & No provided to patient/care provider Clinical Summary of Care Provided Yes Notes: pt to resume Santyl at home Assessment/Plan Assessment/Plan (1) Ulcer of right lower extremity with muscle involvement without evidence of necrosis: CODE(S): L97.915 - 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 without evidence of necrosis (2) Other specified peripheral vascular diseases: CODE(S): I73.89 - Other specified peripheral vascular diseases (3) Type 2 diabetes mellitus with diabetic polyneuropathy: CODE(S): E11.42 - Type 2 diabetes mellitus with diabetic polyneuropathy QUALIFIERS: Diabetes mellitus usp insulin use: unspecified usp insulin use status Qualified Code(s): E11.42 - Type 2 diabetes mellitus with diabetic polyneuropathy (4) Delayed wound healing: CODE(S): T14.8XXD - Other injury of unspecified body region, subsequent encounter (5) Unspecified protein-calorie malnutrition: CODE(S): E46 - Unspecified protein-calorie malnutrition QUALIFIERS: Protein-calorie malnutrition severity: unspecified severity Qualified Code(s): E46 - Unspecified protein-calorie malnutrition (6) Osteomyelitis of right foot: CODE(S): M86.9 - Osteomyelitis, unspecified (7) 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 Chart review from her most recent hospital admission, recent surgical intervention, diagnostic data were reviewed. Debridement was performed today as noted in the clinical panel to all of the ulcer site after verbal consent was obtained. her surgical site was healed and she no longer requires a dressing. The following work up and care recommendations were made: Dressing: To change dressing daily with santyl applied nickel thickness daily to ankle. Wash: Soap and water before each dressing change Offload: To continue with offloading surgical shoe to keep pressure off of the amputation site and lateral ankle Vascular: She has impaired vascular status and had vascular surgery intervention on 10-05-[address] Wilson as the following: Abdominal right lower extremity arteriogram with right anterior tibial balloon angioplasty with improved perfusion. To follow-up as scheduled. Edema: It is okay to wear an Colten wrap and intermittently elevate Infection: Her cellulitis has resolved. She had an MRI performed on 09-29-20 which did not confirm diagnosis of osteomyelitis. To complete IV antibiotics with a stop date of 12-14-20. She was reassured no local signs of infection are noted. I do not recommend additional antibiotics. She was scheduled to get her PICC line removed tomorrow. Diagnostic data from surgery on 11-02-20: Clearance fragments that were sent to pathology and microbiology which were negative for osteomyelitis or bacterial growth, respectively. Most recent blood cultures are also negative Pain: This is controlled today. Host factors: Her comorbidities are noted and this may contribute to delayed healing. I recommend nutritional supplementation with Maciej to optimize healing. She understands she is still at risk for limb loss and delays in healing. I answered all the patient's questions. To return to the wound healing center in 2 weeks, or call sooner if the patient has any questions or concerns. Note: [employer] speech recognition splitting machine feeder software was used to create portions of this document. Sound-alike and misspelled words, as well as other splitting machine feeder errors may be contained in the documentation.
== END 2020-12-21 23:59 ==
LOC: WC 10:30
PROVIDERS: PCP Internal Medicine; Visit Provider Podiatrist Foot & Ankle Surgery
DX: E11.622 Type 2 diabetes mellitus with other skin ulcer (principal); L97.312 Non-pressure chronic ulcer of right ankle with fat layer exposed; E11.69 Type 2 diabetes mellitus with other specified complication; M86.8X7 Other osteomyelitis, ankle and foot; R78.81 Bacteremia; B95.62 Methicillin resistant Staphylococcus aureus infection as the cause of diseases classified elsewhere; Z89.411 Acquired absence of right great toe; E11.51 Type 2 diabetes mellitus with diabetic peripheral angiopathy without gangrene; E11.42 Type 2 diabetes mellitus with diabetic polyneuropathy; M06.9 Rheumatoid arthritis, unspecified
CPT/HCPCS: 11042

== ENCOUNTER 2021-01-10 09:30 | Outpatient (RCR) | payer OTHER, SELFPAY ==
[2020-12-22 00:31] VITALS: BP 138/63; PULSE 60; RESP 18; TEMP 36.1; BMI 24.9
[2020-12-27 08:57] VITALS: BP 144/49; PULSE 61; RESP 18; TEMP 36.2; BMI 24.9
--- NOTE | 2020-12-27 10:24 | PCM.WC.PN ---
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 She changes the surgical site with gauze, and the open ulcer site with santyl as advised. She already had vascular intervention and yazidism by Dr. Wilson; additional intervention is not planned. She denies odor or redness. She denies fever, chill, nausea, vomiting, diarrhea. Progress of Wound: Improved Objective Data Objective Data Vital Signs: Vital Signs Temp Pulse Resp BP 97.1 F L 61 18 144/49 H 12/27/20 08:57 12/27/20 08:57 12/27/20 08:57 12/27/20 08:57 Weight: 65.771 kg Body Mass Index (BMI) 24.9 Physical Exam Narrative Derm Extremity Narrative: Right foot/ankle: Ulceration to the lateral ankle down to subcutaneous tissue at ankle ; no exposed bone or tendon. Improvement in granulation tissue with reduced ulcer depth. No purulence, no fluctuance, no crepitus, no maloder, no streaking, no visible abscess present, no erythema noted. This was hallux amputation site has fully healed and there is full epithelialization without drainage MSK Contracture of lesser toes- chronic. Toe amputation noted. Vasc palpable DP and PT pulses bilateral. No bogginess or fluctuance to the right lower extremity. Neuro Neuro Narrative: significantly decreased sensation to feet bilateral. Const alert and oriented x3 Debridement Note Debridement Note Wound debrided: Lateral right ankle Wound Grade/Stage: Two Type of Debridement: Excisional debridement Anesthesia Used: 4% Lidocaine Solution Depth: in the subcutaneous layer Percentage of wound debrided: 100 Instrument Used: #15 blade Tissue Removed: fibrous, devitalized subcutaneous, biofilm, slough Severity: Fat Layer Exposed Amount of bleeding with debridement: Mild Bleeding Controlled with: Pressure Patient tolerated procedure: Patient tolerated procedure well Post-Debridement Measurements and Additional Note: Post-Debridement Measurements/Treatment IRLANDA - Nurse 1 - General Ulcer Assessment Start: 12/27/20 08:56 Freq: Status: Active Protocol: MISSY Activity Type Activity Date Activity User E-Sign Co-Sign Detail Recorded Client Recorded Date Recorded By Document 12/27/20 08:57 DL Desktop 12/27/20 09:02 DL 12/27/20 08:57 WC - Today's Visit Information Type of service Follow-up Visit (Physician/VALVE GRINDER ) Arrival Mode Ambulatory, Wheelchair Transfer Assistance None Patient Identification Verified (Name & Yes ) Finger Stick Blood Sugar(mg/dl) (if 106 indicated): Blood Sugar Stated by Patient Height and Weight Body Mass Index (BMI) 24.9 BMI Classification Normal Vital Signs Temperature (97.8 F-99.1 F) 97.1 F L Temperature Source Temporal Pulse Rate (60-100) 61 Pulse Location Monitor Respiratory Rate (12-18) 18 Respiratory rate source Observation Blood Pressure (90/60-120/80) 144/49 H Blood Pressure Mean (mm Hg) 80 Source Monitor History Since Last Visit- (Skip if this is Patient's initial visit) Have you changed medications since your No last visit? Any new allergies or adverse reactions No Had a fall/change in ADL's that may No increase risk of falls Signs or symptoms of abuse and/or No neglect since last visit Have you been in the hospital since your No last visit? Has dressing in place as prescribed Yes Has compression in place as prescribed Yes Has offloadiing in place as prescribed Yes Experienced any changes in pain level or No management Left Footwear Surgical Shoe with pressure relief insole Right Footwear Surgical Shoe with pressure relief insole Pain Scale: 0-10 Numeric Is Patient Pain Free? Yes - Nurse 1 - General Ulcer Measurement Start: 12/27/20 08:56 Freq: Status: Active Protocol: Activity Type Activity Date Activity User E-Sign Co-Sign Detail Recorded Client Recorded Date Recorded By Document 12/27/20 08:57 JANAE Desktop 12/27/20 09:02 DL 12/27/20 08:57 Wound Center Nurse 1 #2- R LAT ANKLE -Current Size (cm) - Length 0.7 -Current Size (cm) - Width 1.4 -Current Size (cm) - Depth 0.1 -Total Square Cm 0.98 -Photo Taken No -Exudate Amt Small -Exudate Type Serosanguineous -Wound Margin Distinct, Outline Attached -Granulation Amt Large (67-100%) -Granulation Quality [place],Red -Necrosis Amt Small (1-33%) -Necrotic Tissue Type Adherent Slough -Structure Exposed N/A -Texture (Shakira-wound Skin Appearance) Scarring -Moisture (Shakira-wound Skin Appearance) No Abnormality -Color (Shakira-wound Skin Appearance) No Abnormality -Temperature (Shakira-wound Skin No Abnormality Appearance) (Pt Warm) -Tenderness on Palpation (Shakira-wound No Skin Appearance) -Ulcer Cleansing Rinsed/ Irrigated with Saline -Foul Odor after Cleansing No -Anesthetic Used 5% Lidocaine Gel Right Calf (cm) 31.1 Right Ankle (cm) 25 WC - Nurse 2 - General Ulcer CM Notes Start: 12/27/20 08:56 Freq: Status: Active Protocol: Activity Type Activity Date Activity User E-Sign Co-Sign Detail Recorded Client Recorded Date Recorded By Document 12/27/20 09:43 JF [id number] 12/27/20 09:47 JF 12/27/20 09:43 Wound Center Nurse 2 #2- R LAT ANKLE -Time 09:44 -Correct Patient Yes -Correct Side, Site, Position Yes -Correct Procedure Yes -Procedure Performed Yes -Type of Procedure Debridement -Clinical Debridement Subcutaneous -Tissue Removed Subcutaneous -Post Debridement (cm) - Length 0.8 -Post Debridement (cm) - Width 1.5 -Post Debridement (cm) - Depth 0.1 -Total Square (Post) (cm) 1.20 -Area of Debridement (cm) - Length 0.8 -Area of Debridement (cm) - Width 1.5 -Total Square (Area) (cm) 1.20 -Tunneling No -Undermining/Tunneling No -Circular Undermining No -Wound/Ulcer Outcome Not Healed -Ulcer Cleansing Rinsed/ Irrigated with Saline -Foul Odor after Cleansing No -Bioengineered Tissue No -Bleeding Controlled with Pressure -Offloading Yes -Type of Offloading Surgical Shoe -Treatment Response Procedure Tolerated Well -Debridement - Subq, 1st 20sq cm Yes Pain Scale: 0-10 Numeric Is Patient Pain Free? Yes - Nurse 3 - General Ulcer D/C NN Start: 12/27/20 08:56 Freq: Status: Active Protocol: Activity Type Activity Date Activity User E-Sign Co-Sign Detail Recorded Client Recorded Date Recorded By Document 12/27/20 09:51 RB [id number] 12/27/20 09:51 RB 12/27/20 09:51 Wound Care Nurse 3 #2- R LAT ANKLE -Ulcer Cleansing Rinsed/ Irrigated with Saline -Other Dressing hydrogel -Primary Dressing Covered/Secured with Dry Gauze,Dry Gauze & Roll Gauze,Secured with Tape -Other Covering colten Treatment Response Procedure Tolerated Well Pain Scale: 0-10 Numeric Is Patient Pain Free? 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 without evidence of necrosis (2) Other specified peripheral vascular diseases: CODE(S): I73.89 - Other specified peripheral vascular diseases (3) Type 2 diabetes mellitus with diabetic polyneuropathy: CODE(S): E11.42 - Type 2 diabetes mellitus with diabetic polyneuropathy QUALIFIERS: Diabetes mellitus correction insulin use: unspecified correction insulin use status Qualified Code(s): E11.42 - Type 2 diabetes mellitus with diabetic polyneuropathy (4) Delayed wound healing: CODE(S): T14.8XXD - Other injury of unspecified body region, subsequent encounter (5) Unspecified protein-calorie malnutrition: CODE(S): E46 - Unspecified protein-calorie malnutrition QUALIFIERS: Protein-calorie malnutrition severity: unspecified severity Qualified Code(s): E46 - Unspecified protein-calorie malnutrition (6) Osteomyelitis of right foot: CODE(S): M86.9 - Osteomyelitis, unspecified (7) 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 Her surgical site was healed and she no longer requires a dressing. The following work up and care recommendations were made: Dressing: To change dressing daily with santyl applied nickel thickness daily to ankle. Wash: Soap and water before each dressing change Offload: To continue with offloading surgical shoe to keep pressure off of the amputation site and lateral ankle Vascular: She has impaired vascular status and had vascular surgery intervention on 10-05-[address] Wilson as the following: Abdominal right lower extremity arteriogram with right anterior tibial balloon angioplasty with improved perfusion. To follow-up as scheduled. Edema: It is okay to wear an Colten wrap and intermittently elevate Infection: Her cellulitis has resolved. She had an MRI performed on 09-29-20 which did not confirm diagnosis of osteomyelitis. To complete IV antibiotics with a stop date of 12-14-20. She was reassured no local signs of infection are noted. I do not recommend additional antibiotics. She was scheduled to get her PICC line removed tomorrow. Diagnostic data from surgery on 11-02-20: Clearance fragments that were sent to pathology and microbiology which were negative for osteomyelitis or bacterial growth, respectively. Most recent blood cultures are also negative Pain: This is controlled today. Host factors: Her comorbidities are noted and this may contribute to delayed healing. I recommend nutritional supplementation with Maciej to optimize healing. She understands she is still at risk for limb loss and delays in healing. I answered all the patient's questions. To return to the wound healing center in 2 weeks, or call sooner if the patient has any questions or concerns. Note: [employer] speech recognition binder lockstitch software was used to create portions of this document. Sound-alike and misspelled words, as well as other binder lockstitch errors may be contained in the documentation.
[2021-01-10 09:11] VITALS: BP 147/54; PULSE 57; RESP 16; TEMP 36.4; BMI 24.9
--- NOTE | 2021-01-10 10:51 | PCM.WC.PN ---
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 She changes the surgical site with gauze, and the open ulcer site with santyl as advised. She already had vascular intervention and gnosticism by Dr. Wilson; additional intervention is not planned. She denies odor or redness. She denies fever, chill, nausea, vomiting, diarrhea. Progress of Wound: Improved ulcer base, increased size noted Objective Data Objective Data Vital Signs: Vital Signs Temp Pulse Resp BP 97.6 F L 57 L 16 147/54 H 01/10/21 09:11 01/10/21 09:11 01/10/21 09:11 01/10/21 09:11 Oxygen Delivery Method Room Air Weight: 65.771 kg Body Mass Index (BMI) 24.9 Physical Exam Narrative Derm Extremity Narrative: Right foot/ankle: Ulceration to the lateral ankle down to subcutaneous tissue at ankle ; no exposed bone or tendon. Improvement in granulation tissue with reduced ulcer depth. slight increased size noted. No purulence, no fluctuance, no crepitus, no maloder, no streaking, no visible abscess present, no erythema noted. This was hallux amputation site has fully healed and there is full epithelialization without drainage MSK Contracture of lesser toes- chronic. Toe amputation noted. Vasc palpable DP and PT pulses bilateral. No bogginess or fluctuance to the right lower extremity. Neuro Neuro Narrative: significantly decreased sensation to feet bilateral. Debridement Note Debridement Note Wound debrided: lateral right ankle Wound Grade/Stage: 1 Type of Debridement: Excisional debridement Anesthesia Used: 4% Lidocaine Solution Depth: in the subcutaneous layer Percentage of wound debrided: 100 Instrument Used: #15 blade Tissue Removed: fibrous, devitalized subcutaneous, biofilm, slough Severity: Fat Layer Exposed Amount of bleeding with debridement: Mild Bleeding Controlled with: Pressure Patient tolerated procedure: Patient tolerated procedure well Post-Debridement Measurements and Additional Note: Post-Debridement Measurements/Treatment IRLANDA - Nurse 1 - General Ulcer Assessment Start: 12/27/20 08:56 Freq: Status: Active Protocol: MISSY Activity Type Activity Date Activity User E-Sign Co-Sign Detail Recorded Client Recorded Date Recorded By Document 12/27/20 08:57 DL Desktop 12/27/20 09:02 DL Document 01/10/21 09:11 [facility] [id number] 01/10/21 09:19 [facility] 12/27/20 01/10/21 08:57 09:11 - Today's Visit Information Type of service Follow-up Visit Follow-up Visit (Physician/REPAIR ELECTRIC MOTOR ASSEMBLER (Physician/REPAIR ELECTRIC MOTOR ASSEMBLER ) ) Arrival Mode Ambulatory, Wheelchair Wheelchair Transfer Assistance None Other Transfer Assist (Other) stand by Patient Identification Verified (Name & Yes Yes ) Patient Requires Transmission-Based No Precautions Finger Stick Blood Sugar(mg/dl) (if 106 indicated): Blood Sugar Stated by Patient Height and Weight Body Mass Index (BMI) 24.9 24.9 BMI Classification Normal Normal Vital Signs Temperature (97.8 F-99.1 F) 97.1 F L 97.6 F L Temperature Source Temporal Temporal Pulse Rate (60-100) 61 57 L Pulse Location Monitor Monitor Respiratory Rate (12-18) 18 16 Respiratory rate source Observation Observation Oxygen Delivery Method Room Air Blood Pressure (90/60-120/80) 144/49 H 147/54 H Blood Pressure Mean (mm Hg) 80 85 Source Monitor Monitor Position Sitting Blood Pressure Location Left Arm History Since Last Visit- (Skip if this is Patient's initial visit) Have you changed medications since your No No last visit? Any new allergies or adverse reactions No No Had a fall/change in ADL's that may No No increase risk of falls Signs or symptoms of abuse and/or No No neglect since last visit Have you been in the hospital since your No No last visit? Has dressing in place as prescribed Yes Yes Has compression in place as prescribed Yes Yes Has offloadiing in place as prescribed Yes Yes Experienced any changes in pain level or No No management Left Footwear Surgical Shoe Regular Shoe with pressure relief insole Right Footwear Surgical Shoe Surgical Shoe with pressure with pressure relief insole relief insole Pain Scale: 0-10 Numeric Is Patient Pain Free? Yes Yes - Nurse 1 - General Ulcer Measurement Start: 12/27/20 08:56 Freq: Status: Active Protocol: Activity Type Activity Date Activity User E-Sign Co-Sign Detail Recorded Client Recorded Date Recorded By Document 12/27/20 08:57 DL Desktop 12/27/20 09:02 DL Document 01/10/21 09:11 [facility] [id number] 01/10/21 09:19 BM 12/27/20 01/10/21 08:57 09:11 Wound Center Nurse 1 #2- R LAT ANKLE -Combined with other wound No -Current Size (cm) - Length 0.7 2.3 -Current Size (cm) - Width 1.4 1.2 -Current Size (cm) - Depth 0.1 0.1 -Total Square Cm 0.98 2.76 -Photo Taken No No -Epithelialization Small 1-33% -Tunneling No -Undermining/Tunneling No -Circular Undermining No -Exudate Amt Small Medium -Exudate Type Serosanguineous Serosanguineous -Wound Margin Distinct, Flat & Intact Outline Attached -Granulation Amt Large (67-100%) Medium (34-66%) -Granulation Quality [place],Red Red -Slough/Fibrin Yes -Necrosis Amt Small (1-33%) Medium (34-66%) -Necrotic Tissue Type Adherent Slough Adherent Slough -Structure Exposed N/A -Texture (Shakira-wound Skin Appearance) Scarring Assessed, Scarring -Moisture (Shakira-wound Skin Appearance) No Abnormality Assessed -Color (Shakira-wound Skin Appearance) No Abnormality Assessed, Erythema -Temperature (Shakira-wound Skin No Abnormality No Abnormality Appearance) (Pt Warm) (Pt Warm) -Tenderness on Palpation (Shakira-wound No Yes Skin Appearance) -Ulcer Cleansing Rinsed/ Rinsed/ Irrigated with Irrigated with Saline Saline -Foul Odor after Cleansing No No -Anesthetic Used 5% Lidocaine 5% Lidocaine Gel Gel Lower Limb Edema Present Yes Right Calf (cm) 31.1 32.7 Right Ankle (cm) 25 23 - Nurse 2 - General Ulcer CM Notes Start: 12/27/20 08:56 Freq: Status: Active Protocol: Activity Type Activity Date Activity User E-Sign Co-Sign Detail Recorded Client Recorded Date Recorded By Document 12/27/20 09:43 [facility] [id number] 12/27/20 09:47 JF Document 01/10/21 09:31 [facility] [id number] 01/10/21 09:33 JF Edit Result 01/10/21 09:31 JF (1) [id number] 01/10/21 09:34 JF (1) #2- R LAT ANKLE - Post Debridement (cm) - Width 1.3 => 1 - Total Square (Post) (cm) 2.99 => 2.3 - Area of Debridement (cm) - Width 1.3 => 1 - Total Square (Area) (cm) 2.99 => 2.3 12/27/20 01/10/21 09:43 09:31 Wound Center Nurse 2 #2- R LAT ANKLE -Time 09:44 09:31 -Correct Patient Yes Yes -Correct Side, Site, Position Yes Yes -Correct Procedure Yes Yes -Procedure Performed Yes Yes -Type of Procedure Debridement Debridement -Clinical Debridement Subcutaneous Subcutaneous -Tissue Removed Subcutaneous Subcutaneous -Post Debridement (cm) - Length 0.8 2.3 -Post Debridement (cm) - Width 1.5 1 -Post Debridement (cm) - Depth 0.1 0.1 -Total Square (Post) (cm) 1.20 2.3 -Area of Debridement (cm) - Length 0.8 2.3 -Area of Debridement (cm) - Width 1.5 1 -Total Square (Area) (cm) 1.20 2.3 -Tunneling No No -Undermining/Tunneling No No -Circular Undermining No No -Wound/Ulcer Outcome Not Healed Not Healed -Ulcer Cleansing Rinsed/ Rinsed/ Irrigated with Irrigated with Saline Saline -Foul Odor after Cleansing No No -Bioengineered Tissue No No -Bleeding Controlled with Pressure Pressure -Offloading Yes No -Type of Offloading Surgical Shoe -Treatment Response Procedure Procedure Tolerated Well Tolerated Well -Debridement - Subq, 1st 20sq cm Yes Yes Pain Scale: 0-10 Numeric Is Patient Pain Free? Yes - Nurse 3 - General Ulcer D/C NN Start: 12/27/20 08:56 Freq: Status: Active Protocol: Activity Type Activity Date Activity User E-Sign Co-Sign Detail Recorded Client Recorded Date Recorded By Document 12/27/20 09:51 RB [id number] 12/27/20 09:51 RB Document 01/10/21 09:40 [facility] [id number] 01/10/21 09:41 [facility] 12/27/20 01/10/21 09:51 09:40 Wound Care Nurse 3 #2- R LAT ANKLE -Ulcer Cleansing Rinsed/ Rinsed/ Irrigated with Irrigated with Saline Saline -Foul Odor after Cleansing No -Primary Dressing Applied Other -Other Dressing hydrogel hydrogel -Primary Dressing Covered/Secured with Dry Gauze,Dry Dry Gauze, Gauze & Roll Secured with Gauze,Secured Tape with Tape -Other Covering colten Right -Compression Wrap Colten Wrap Treatment Response Procedure Procedure Tolerated Well Tolerated Well Pain Scale: 0-10 Numeric Is Patient Pain Free? Yes Yes WC - Visit Discharge Discharge Condition Stable Stable Ambulatory Status Wheelchair Wheelchair Transportation Private Auto Private Auto Accompanied by lida in [facility] Medication Reconcilliation completed & No provided to patient/care provider Clinical Summary of Care Provided Yes Assessment/Plan Assessment/Plan (1) Ulcer of right lower extremity with muscle involvement without evidence of necrosis: CODE(S): L97.915 - 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 without evidence of necrosis (2) Other specified peripheral vascular diseases: CODE(S): I73.89 - Other specified peripheral vascular diseases (3) Type 2 diabetes mellitus with diabetic polyneuropathy: CODE(S): E11.42 - Type 2 diabetes mellitus with diabetic polyneuropathy QUALIFIERS: Diabetes mellitus long-term insulin use: unspecified long-term insulin use status Qualified Code(s): E11.42 - Type 2 diabetes mellitus with diabetic polyneuropathy (4) Delayed wound healing: CODE(S): T14.8XXD - Other injury of unspecified body region, subsequent encounter (5) Unspecified protein-calorie malnutrition: CODE(S): E46 - Unspecified protein-calorie malnutrition QUALIFIERS: Protein-calorie malnutrition severity: unspecified severity Qualified Code(s): E46 - Unspecified protein-calorie malnutrition (6) Chronic ulcer of right leg with fat layer exposed: CODE(S): L97.912 - Non-pressure chronic ulcer of unspecified part of right lower leg with fat layer exposed (7) Rheumatoid arthritis: CODE(S): M06.9 - Rheumatoid arthritis, unspecified PLAN: Patient seen and evaluated with daughter present I reviewed and discussed her case today. Dressing: To change dressing daily with santyl applied nickel thickness daily to ankle. Wash: Soap and water before each dressing change Offload: To continue with offloading surgical shoe to keep pressure off of the amputation site and lateral ankle Vascular: She has impaired vascular status and had vascular surgery intervention on 10-05-[address] Wilson as the following: Abdominal right lower extremity arteriogram with right anterior tibial balloon angioplasty with improved perfusion. To follow-up as scheduled. Edema: It is okay to wear an Colten wrap and intermittently elevate Infection: Her cellulitis has resolved. She had an MRI performed on 09-29-20 which did not confirm diagnosis of osteomyelitis. To complete IV antibiotics with a stop date of 12-14-20. She was reassured no local signs of infection are noted. I do not recommend additional antibiotics. She was scheduled to get her PICC line removed tomorrow. Diagnostic data from surgery on 11-02-20: Clearance fragments that were sent to pathology and microbiology which were negative for osteomyelitis or bacterial growth, respectively. Most recent blood cultures are also negative Pain: This is controlled today. Host factors: Her comorbidities are noted and this may contribute to delayed healing. I recommend nutritional supplementation with Maciej to optimize healing. She understands she is still at risk for limb loss and delays in healing. I answered all the patient's questions. To return to the wound healing center in 2 weeks, or call sooner if the patient has any questions or concerns. Note: [employer] speech recognition mirror installer software was used to create portions of this document. Sound-alike and misspelled words, as well as other mirror installer errors may be contained in the documentation.
== END 2021-01-21 23:59 ==
LOC: WC 09:30
PROVIDERS: PCP Internal Medicine; Visit Provider Podiatrist
DX: E11.622 Type 2 diabetes mellitus with other skin ulcer (principal); L97.312 Non-pressure chronic ulcer of right ankle with fat layer exposed; E11.51 Type 2 diabetes mellitus with diabetic peripheral angiopathy without gangrene; E11.42 Type 2 diabetes mellitus with diabetic polyneuropathy; M06.9 Rheumatoid arthritis, unspecified; Z79.84 Long term (current) use of oral hypoglycemic drugs; Z79.82 Long term (current) use of aspirin; Z79.899 Other long term (current) drug therapy; Z89.411 Acquired absence of right great toe
CPT/HCPCS: 11042

== ENCOUNTER 2021-02-14 09:45 | Outpatient (RCR) | payer OTHER, SELFPAY ==
[2021-01-22 00:25] VITALS: BP 147/54; PULSE 57; RESP 16; TEMP 36.4; BMI 24.9
[2021-01-24 09:47] VITALS: BP 146/66; PULSE 56; RESP 20; TEMP 36.4; BMI 24.9
--- NOTE | 2021-01-24 10:32 | PCM.WC.PN ---
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 She changes the surgical site with gauze, and the open ulcer site with santyl as advised. She already had vascular intervention and mormon by Dr. Wilson; additional intervention is not planned. She denies odor or redness. She denies fever, chill, nausea, vomiting, diarrhea. She is difficulty coming to the wound center every 1 to 2 weeks and request longer follow-up. This is very taxing for her and contributes to excessive fatigue. Progress of Wound: Stable Objective Data Objective Data Vital Signs: Vital Signs Temp Pulse Resp BP 97.5 F L 56 L 20 H 146/66 H 01/24/21 09:47 01/24/21 09:47 01/24/21 09:47 01/24/21 09:47 Weight: 65.771 kg Body Mass Index (BMI) 24.9 Physical Exam Narrative Derm Extremity Narrative: Right foot/ankle: Ulceration to the lateral ankle down to subcutaneous tissue at ankle ; no exposed bone or tendon. Improvement in granulation tissue with reduced ulcer depth. Granular base without ulcer size increase. No purulence, no fluctuance, no crepitus, no maloder, no streaking, no visible abscess present, no erythema noted. This was hallux amputation site has fully healed and there is full epithelialization without drainage MSK Contracture of lesser toes- chronic. Toe amputation noted. Vasc palpable DP and PT pulses bilateral. No bogginess or fluctuance to the right lower extremity. Neuro Neuro Narrative: significantly decreased sensation to feet bilateral. Debridement Note Debridement Note Wound debrided: Right ankle Wound Grade/Stage: 1 Type of Debridement: Excisional debridement Anesthesia Used: 4% Lidocaine Solution Depth: in the subcutaneous layer Percentage of wound debrided: 100 Instrument Used: #15 blade Tissue Removed: fibrous, devitalized subcutaneous, biofilm, slough Severity: Fat Layer Exposed Amount of bleeding with debridement: Mild Bleeding Controlled with: Pressure Patient tolerated procedure: Patient tolerated procedure well Post-Debridement Measurements and Additional Note: Post-Debridement Measurements/Treatment WC - Nurse 1 - General Ulcer Assessment Start: 01/24/21 09:47 Freq: Status: Active Protocol: MISSY Activity Type Activity Date Activity User E-Sign Co-Sign Detail Recorded Client Recorded Date Recorded By Document 01/24/21 09:47 DL [id number] 01/24/21 09:51 DL 01/24/21 09:47 WC - Today's Visit Information Type of service Follow-up Visit (Physician/RIGHT OF WAY SUPERVISOR ) Arrival Mode Wheelchair Transfer Assistance Manual Transfer Assist (Other) x1 Finger Stick Blood Sugar(mg/dl) (if 110 indicated): Blood Sugar Stated by Patient Height and Weight Body Mass Index (BMI) 24.9 BMI Classification Normal Vital Signs Temperature (97.8 F-99.1 F) 97.5 F L Temperature Source Temporal Pulse Rate (60-100) 56 L Pulse Location Monitor Respiratory Rate (12-18) 20 H Respiratory rate source Observation Blood Pressure (90/60-120/80) 146/66 H Blood Pressure Mean (mm Hg) 92 Source Monitor History Since Last Visit- (Skip if this is Patient's initial visit) Have you changed medications since your No last visit? Any new allergies or adverse reactions No Had a fall/change in ADL's that may No increase risk of falls Signs or symptoms of abuse and/or No neglect since last visit Have you been in the hospital since your No last visit? Has dressing in place as prescribed Yes Has compression in place as prescribed Yes Has offloadiing in place as prescribed Yes Experienced any changes in pain level or No management Right Footwear Surgical Shoe with pressure relief insole Pain Scale: 0-10 Numeric Is Patient Pain Free? No - Nurse 1 - General Ulcer Measurement Start: 01/24/21 09:47 Freq: Status: Active Protocol: Activity Type Activity Date Activity User E-Sign Co-Sign Detail Recorded Client Recorded Date Recorded By Document 01/24/21 09:47 DL [id number] 01/24/21 09:51 DL 01/24/21 09:47 Wound Center Nurse 1 #2- R LAT ANKLE -Current Size (cm) - Length 0.9 -Current Size (cm) - Width 1.8 -Current Size (cm) - Depth 0.2 -Total Square Cm 1.62 -Photo Taken No -Exudate Amt Small -Exudate Type Serosanguineous -Wound Margin Thickened -Granulation Amt Large (67-100%) -Granulation Quality Pale,[place] -Necrosis Amt Small (1-33%) -Necrotic Tissue Type Adherent Slough -Structure Exposed N/A -Texture (Shakira-wound Skin Appearance) Scarring -Moisture (Shakira-wound Skin Appearance) Dry/Scaly -Color (Shakira-wound Skin Appearance) Rubor -Temperature (Shakira-wound Skin No Abnormality Appearance) (Pt Warm) -Ulcer Cleansing Rinsed/ Irrigated with Saline -Foul Odor after Cleansing No -Anesthetic Used 4% Lidocaine Solution WC - Nurse 2 - General Ulcer CM Notes Start: 01/24/21 09:47 Freq: Status: Active Protocol: Activity Type Activity Date Activity User E-Sign Co-Sign Detail Recorded Client Recorded Date Recorded By Document 01/24/21 10:01 [email or web address] [id number] 01/24/21 10:04 KYRA 01/24/21 10:01 Wound Center Nurse 2 -Time 10:01 -Correct Patient Yes -Correct Side, Site, Position Yes -Correct Procedure Yes -Procedure Performed Yes -Type of Procedure Debridement -Clinical Debridement Subcutaneous -Tissue Removed Subcutaneous -Post Debridement (cm) - Length 1.3 -Post Debridement (cm) - Width 1.5 -Post Debridement (cm) - Depth 0.2 -Total Square (Post) (cm) 1.95 -Area of Debridement (cm) - Length 1.3 -Area of Debridement (cm) - Width 1.5 -Total Square (Area) (cm) 1.95 -Tunneling No -Undermining/Tunneling No -Circular Undermining No -Wound/Ulcer Outcome Not Healed -Ulcer Cleansing Rinsed/ Irrigated with Saline -Foul Odor after Cleansing No -Bioengineered Tissue No -Bleeding Controlled with Pressure -Offloading Yes -Type of Offloading Surgical Shoe -Treatment Response Procedure Tolerated Well -Debridement - Subq, 1st 20sq cm Yes Pain Scale: 0-10 Numeric Is Patient Pain Free? Yes - Nurse 3 - General Ulcer D/C NN Start: 01/24/21 09:47 Freq: Status: Active Protocol: Activity Type Activity Date Activity User E-Sign Co-Sign Detail Recorded Client Recorded Date Recorded By Document 01/24/21 10:17 RB [id number] 01/24/21 10:18 RB 01/24/21 10:17 Wound Care Nurse 3 #2- R LAT ANKLE -Ulcer Cleansing Rinsed/ Irrigated with Saline -Other Dressing hydrogel -Primary Dressing Covered/Secured with Dry Gauze,Dry Gauze & Roll Gauze,Secured with Tape Right -Tubular Bandage Single Layer -Size of Tubigrip Used Size D -Size D ($) 1 Treatment Response Procedure Tolerated Well Pain Scale: 0-10 Numeric Is Patient Pain Free? 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 without evidence of necrosis (2) Other specified peripheral vascular diseases: CODE(S): I73.89 - Other specified peripheral vascular diseases (3) Type 2 diabetes mellitus with diabetic polyneuropathy: CODE(S): E11.42 - Type 2 diabetes mellitus with diabetic polyneuropathy QUALIFIERS: Diabetes mellitus long term care pharmacist insulin use: unspecified long term care pharmacist insulin use status Qualified Code(s): E11.42 - Type 2 diabetes mellitus with diabetic polyneuropathy (4) Delayed wound healing: CODE(S): T14.8XXD - Other injury of unspecified body region, subsequent encounter (5) Unspecified protein-calorie malnutrition: CODE(S): E46 - Unspecified protein-calorie malnutrition QUALIFIERS: Protein-calorie malnutrition severity: unspecified severity Qualified Code(s): E46 - Unspecified protein-calorie malnutrition (6) Chronic ulcer of right leg with fat layer exposed: CODE(S): L97.912 - Non-pressure chronic ulcer of unspecified part of right lower leg with fat layer exposed (7) Rheumatoid arthritis: CODE(S): M06.9 - Rheumatoid arthritis, unspecified PLAN: Patient seen and evaluated with daughter present I reviewed and discussed her case today. Dressing: To change dressing daily with santyl applied nickel thickness daily to ankle. Wash: Soap and water before each dressing change Offload: To continue with offloading surgical shoe to keep pressure off of the amputation site and lateral ankle Vascular: She has impaired vascular status and had vascular surgery intervention on 10-05-[address] Wilson as the following: Abdominal right lower extremity arteriogram with right anterior tibial balloon angioplasty with improved perfusion. To follow-up as scheduled. Edema: It is okay to wear an Colten wrap and intermittently elevate Infection: Her cellulitis has resolved. She had an MRI performed on 09-29-20 which did not confirm diagnosis of osteomyelitis. To complete IV antibiotics with a stop date of 12-14-20. She was reassured no local signs of infection are noted. I do not recommend additional antibiotics. She was scheduled to get her PICC line removed tomorrow. Diagnostic data from surgery on 11-02-20: Clearance fragments that were sent to pathology and microbiology which were negative for osteomyelitis or bacterial growth, respectively. Most recent blood cultures are also negative Pain: This is controlled today. Host factors: Her comorbidities are noted and this may contribute to delayed healing. I recommend nutritional supplementation with Maciej to optimize healing. She understands she is still at risk for limb loss and delays in healing. I answered all the patient's questions. To return to the wound healing center in 3 weeks, or call sooner if the patient has any questions or concerns. She is unable to follow-up sooner. Note: [employer] speech recognition director financial services software was used to create portions of this document. Sound-alike and misspelled words, as well as other director financial services errors may be contained in the documentation.
[2021-02-14 09:02] VITALS: BP 156/62; PULSE 59; RESP 18; TEMP 36.1; BMI 24.9
--- NOTE | 2021-02-14 13:04 | PCM.WC.PN ---
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 She changes the surgical site with gauze, and the open ulcer site with hydrogel as advised. She already had vascular intervention and lutheran by Dr. Wilson; additional intervention is not planned. She denies odor or redness. She denies fever, chill, nausea, vomiting, diarrhea. She is difficulty coming to the wound center every 1 to 2 weeks and request longer follow-up. This is very taxing for her and contributes to excessive fatigue. She denies fever, chill, nausea, vomiting. Progress of Wound: Improving Objective Data Objective Data Vital Signs: Vital Signs Temp Pulse Resp BP 97 F L 59 L 18 156/62 H 02/14/21 09:02 02/14/21 09:02 02/14/21 09:02 02/14/21 09:02 Oxygen Delivery Method Room Air Weight: 65.771 kg Body Mass Index (BMI) 24.9 Physical Exam Narrative Derm Extremity Narrative: Right foot/ankle: Ulceration to the lateral ankle down to subcutaneous tissue at ankle ; no exposed bone or tendon. Improvement in granulation tissue with reduced ulcer depth. Granular base without ulcer size increase. No purulence, no fluctuance, no crepitus, no maloder, no streaking, no visible abscess present, no erythema noted. This was hallux amputation site has fully healed and there is full epithelialization without drainage MSK Contracture of lesser toes- chronic. Toe amputation noted. Vasc palpable DP and PT pulses bilateral. No bogginess or fluctuance to the right lower extremity. Neuro Neuro Narrative: significantly decreased sensation to feet bilateral. Debridement Note Debridement Note Wound debrided: Right ankle Wound Grade/Stage: 1 Type of Debridement: Excisional debridement Anesthesia Used: 4% Lidocaine Solution Depth: in the subcutaneous layer Percentage of wound debrided: 100 Instrument Used: #15 blade Tissue Removed: fibrous, devitalized subcutaneous, biofilm, slough Severity: Fat Layer Exposed Amount of bleeding with debridement: Mild Bleeding Controlled with: Pressure Patient tolerated procedure: Patient tolerated procedure well Post-Debridement Measurements and Additional Note: Post-Debridement Measurements/Treatment WC - Nurse 1 - General Ulcer Assessment Start: 01/24/21 09:47 Freq: Status: Active Protocol: [email or web address].BRUCE Activity Type Activity Date Activity User E-Sign Co-Sign Detail Recorded Client Recorded Date Recorded By Document 01/24/21 09:47 DL [id number] 01/24/21 09:51 DL Document 02/14/21 09:02 PR [id number] 02/14/21 09:04 MT 01/24/21 02/14/21 09:47 09:02 WC - Today's Visit Information Type of service Follow-up Visit (Physician/SURFACE GRINDER TENDER ) Arrival Mode Wheelchair Transfer Assistance Manual Transfer Assist (Other) x1 Finger Stick Blood Sugar(mg/dl) (if 110 103 indicated): Blood Sugar Stated by Patient Height and Weight Body Mass Index (BMI) 24.9 24.9 BMI Classification Normal Normal Vital Signs Temperature (97.8 F-99.1 F) 97.5 F L 97 F L Temperature Source Temporal Temporal Pulse Rate (60-100) 56 L 59 L Pulse Location Monitor Monitor Respiratory Rate (12-18) 20 H 18 Respiratory rate source Observation Observation Oxygen Delivery Method Room Air Blood Pressure (90/60-120/80) 146/66 H 156/62 H Blood Pressure Mean (mm Hg) 92 93 Source Monitor Monitor Position Semi-Fowlers Blood Pressure Location Right Arm History Since Last Visit- (Skip if this is Patient's initial visit) Have you changed medications since your No last visit? Any new allergies or adverse reactions No Had a fall/change in ADL's that may No increase risk of falls Signs or symptoms of abuse and/or No neglect since last visit Have you been in the hospital since your No last visit? Has dressing in place as prescribed Yes Yes Has compression in place as prescribed Yes Yes Has offloadiing in place as prescribed Yes Yes Experienced any changes in pain level or No Yes management Right Footwear Surgical Shoe with pressure relief insole Pain Scale: 0-10 Numeric Is Patient Pain Free? No IRLANDA - Nurse 1 - General Ulcer Measurement Start: 01/24/21 09:47 Freq: Status: Active Protocol: Activity Type Activity Date Activity User E-Sign Co-Sign Detail Recorded Client Recorded Date Recorded By Document 01/24/21 09:47 DL [id number] 01/24/21 09:51 DL Document 02/14/21 09:02 PR [id number] 02/14/21 09:04 PR 01/24/21 02/14/21 09:47 09:02 Wound Center Nurse 1 #2- R LAT ANKLE -Current Size (cm) - Length 0.9 1.1 -Current Size (cm) - Width 1.8 2.0 -Current Size (cm) - Depth 0.2 0.2 -Total Square Cm 1.62 2.20 -Photo Taken No -Exudate Amt Small Small -Exudate Type Serosanguineous Serosanguineous -Wound Margin Thickened Thickened & Rolled Under -Granulation Amt Large (67-100%) Large (67-100%) -Granulation Quality Pale,[place] Pale,[place] -Slough/Fibrin No -Necrosis Amt Small (1-33%) -Necrotic Tissue Type Adherent Slough -Structure Exposed N/A -Texture (Shakira-wound Skin Appearance) Scarring Assessed -Moisture (Shakira-wound Skin Appearance) Dry/Scaly Assessed -Color (Shakira-wound Skin Appearance) Rubor Assessed -Temperature (Shakira-wound Skin No Abnormality No Abnormality Appearance) (Pt Warm) (Pt Warm) -Tenderness on Palpation (Shakira-wound No Skin Appearance) -Ulcer Cleansing Rinsed/ Rinsed/ Irrigated with Irrigated with Saline Saline -Foul Odor after Cleansing No No -Anesthetic Used 4% Lidocaine 5% Lidocaine Solution Gel Lower Limb Edema Present Yes Right Calf (cm) 32.7 Right Ankle (cm) 23 WC - Nurse 2 - General Ulcer CM Notes Start: 01/24/21 09:47 Freq: Status: Active Protocol: Activity Type Activity Date Activity User E-Sign Co-Sign Detail Recorded Client Recorded Date Recorded By Document 01/24/21 10:01 [id number] 01/24/21 10:04 Document 02/14/21 09:30 [id number] 02/14/21 09:34 01/24/21 02/14/21 10:01 09:30 Wound Center Nurse 2 #2- R LAT ANKLE -Time 10:01 09:30 -Correct Patient Yes Yes -Correct Side, Site, Position Yes Yes -Correct Procedure Yes Yes -Procedure Performed Yes Yes -Type of Procedure Debridement Debridement -Clinical Debridement Subcutaneous Subcutaneous -Tissue Removed Subcutaneous Subcutaneous -Post Debridement (cm) - Length 1.3 0.9 -Post Debridement (cm) - Width 1.5 1.6 -Post Debridement (cm) - Depth 0.2 0.2 -Total Square (Post) (cm) 1.95 1.44 -Area of Debridement (cm) - Length 1.3 0.9 -Area of Debridement (cm) - Width 1.5 1.6 -Total Square (Area) (cm) 1.95 1.44 -Tunneling No No -Undermining/Tunneling No No -Circular Undermining No No -Wound/Ulcer Outcome Not Healed Not Healed -Ulcer Cleansing Rinsed/ Rinsed/ Irrigated with Irrigated with Saline Saline -Foul Odor after Cleansing No No -Bioengineered Tissue No No -Bleeding Controlled with Pressure Pressure -Offloading Yes No -Type of Offloading Surgical Shoe -Treatment Response Procedure Procedure Tolerated Well Tolerated Well -Debridement - Subq, 1st 20sq cm Yes Yes Pain Scale: 0-10 Numeric Is Patient Pain Free? Yes Yes - Nurse 3 - General Ulcer D/C NN Start: 01/24/21 09:47 Freq: Status: Active Protocol: Activity Type Activity Date Activity User E-Sign Co-Sign Detail Recorded Client Recorded Date Recorded By Document 01/24/21 10:17 [id number] 01/24/21 10:18 RB Document 02/14/21 09:51 RB [id number] 02/14/21 09:52 RB 01/24/21 02/14/21 10:17 09:51 Wound Care Nurse 3 #2- R LAT ANKLE -Ulcer Cleansing Rinsed/ Rinsed/ Irrigated with Irrigated with Saline Saline -Primary Dressing Applied Promogran Yuli Matter -Other Dressing hydrogel -Primary Dressing Covered/Secured with Dry Gauze,Dry Dry Gauze,Dry Gauze & Roll Gauze & Roll Gauze,Secured Gauze,Secured with Tape with Tape -Promogran Yuli Matter 2 Right -Tubular Bandage Single Layer -Size of Tubigrip Used Size D -Size D ($) 1 -Other colten Treatment Response Procedure Procedure Tolerated Well Tolerated Well Pain Scale: 0-10 Numeric Is Patient Pain Free? Yes Yes - Visit Discharge Discharge Condition Stable Stable Ambulatory Status Wheelchair Wheelchair Transportation Private Auto Private Auto Medication Reconcilliation completed & No No provided to patient/care provider Clinical Summary of Care Provided Yes Yes Assessment/Plan Assessment/Plan (1) Ulcer of right lower extremity with muscle involvement without evidence of necrosis: CODE(S): L97.915 - 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 without evidence of necrosis (2) Other specified peripheral vascular diseases: CODE(S): I73.89 - Other specified peripheral vascular diseases (3) Type 2 diabetes mellitus with diabetic polyneuropathy: CODE(S): E11.42 - Type 2 diabetes mellitus with diabetic polyneuropathy QUALIFIERS: Diabetes mellitus alf insulin use: unspecified alf insulin use status Qualified Code(s): E11.42 - Type 2 diabetes mellitus with diabetic polyneuropathy (4) Delayed wound healing: CODE(S): T14.8XXD - Other injury of unspecified body region, subsequent encounter (5) Unspecified protein-calorie malnutrition: CODE(S): E46 - Unspecified protein-calorie malnutrition QUALIFIERS: Protein-calorie malnutrition severity: unspecified severity Qualified Code(s): E46 - Unspecified protein-calorie malnutrition (6) Chronic ulcer of right leg with fat layer exposed: CODE(S): L97.912 - Non-pressure chronic ulcer of unspecified part of right lower leg with fat layer exposed (7) Rheumatoid arthritis: CODE(S): M06.9 - Rheumatoid arthritis, unspecified PLAN: Patient seen and evaluated with daughter present I reviewed and discussed her case today. Dressing: To change dressing daily with yuli to ankle wound. ok to use Yuli before follow-up. Wash: Soap and water before each dressing change Offload: To continue with offloading surgical shoe to keep pressure off of the amputation site and lateral ankle Vascular: She has impaired vascular status and had vascular surgery intervention on 10-05-[address] Wilson as the following: Abdominal right lower extremity arteriogram with right anterior tibial balloon angioplasty with improved perfusion. To follow-up as scheduled. Edema: It is okay to wear an Colten wrap and intermittently elevate Infection: Her cellulitis has resolved. She had an MRI performed on 09-29-20 which did not confirm diagnosis of osteomyelitis. To complete IV antibiotics with a stop date of 12-14-20. She was reassured no local signs of infection are noted. I do not recommend additional antibiotics. She was scheduled to get her PICC line removed tomorrow. Diagnostic data from surgery on 11-02-20: Clearance fragments that were sent to pathology and microbiology which were negative for osteomyelitis or bacterial growth, respectively. Most recent blood cultures are also negative Pain: This is controlled today. Host factors: Her comorbidities are noted and this may contribute to delayed healing. I recommend nutritional supplementation with Maciej to optimize healing. She understands she is still at risk for limb loss and delays in healing. I answered all the patient's questions. To return to the wound healing center in 3 weeks, or call sooner if the patient has any questions or concerns. She is unable to follow-up sooner. Note: [employer] speech recognition highway painter helper software was used to create portions of this document. Sound-alike and misspelled words, as well as other highway painter helper errors may be contained in the documentation.
== END 2021-02-20 23:59 ==
LOC: WC 09:45
PROVIDERS: PCP Internal Medicine; Visit Provider Podiatrist
DX: L97.312 Non-pressure chronic ulcer of right ankle with fat layer exposed (principal); E11.42 Type 2 diabetes mellitus with diabetic polyneuropathy; M06.9 Rheumatoid arthritis, unspecified; Z79.82 Long term (current) use of aspirin; Z79.4 Long term (current) use of insulin; Z79.899 Other long term (current) drug therapy; Z89.411 Acquired absence of right great toe
CPT/HCPCS: 11042

== ENCOUNTER 2021-03-07 09:45 | Outpatient (RCR) | payer OTHER, SELFPAY ==
[2021-02-21 00:29] VITALS: BP 156/62; PULSE 59; RESP 18; TEMP 36.1; BMI 24.9
[2021-03-07 09:52] VITALS: BP 140/73; PULSE 59; RESP 18; TEMP 36; BMI 24.9
--- NOTE | 2021-03-07 11:00 | PCM.WC.PN ---
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 She changes the surgical site with gauze, and the open ulcer site with hydrogel as advised. She already had vascular intervention and latter-day by Dr. Wilson; additional intervention is not planned. She denies odor or redness. She denies fever, chill, nausea, vomiting, diarrhea. She is difficulty coming to the wound center every 1 to 2 weeks and request longer follow-up. This is very taxing for her and contributes to excessive fatigue. She denies fever, chill, nausea, vomiting. Progress of Wound: improving Objective Data Objective Data Vital Signs: Vital Signs Temp Pulse Resp BP 96.8 F L 59 L 18 140/73 H 03/07/21 09:52 03/07/21 09:52 03/07/21 09:52 03/07/21 09:52 Weight: 65.771 kg Body Mass Index (BMI) 24.9 Physical Exam Const alert and oriented x3 General Appearance: cooperative HEENT normocephalic Extremity Extremity Narrative: No calf tenderness Diminished pulses Muscle wasting noted General Extremity: edema and no tenderness to palpation of joints or extremities; Negative for cyanosis Skin Skin Narrative: no purulence, no streaking, no odor, no infection General Skin Exam: Negative for erythema Neuro Neuro Narrative: lack of normal epicritic sensation via light touch is consistent with neuropathy status Psych cooperative and affect normal Debridement Note Debridement Note Wound debrided: lateral right ankle Wound Grade/Stage: 1 Type of Debridement: Excisional debridement Anesthesia Used: 4% Lidocaine Solution Depth: in the subcutaneous layer Percentage of wound debrided: 100 Instrument Used: #15 blade Tissue Removed: fibrous, devitalized subcutaneous, biofilm, slough Severity: Fat Layer Exposed Amount of bleeding with debridement: Mild Bleeding Controlled with: Pressure Patient tolerated procedure: Patient tolerated procedure well Post-Debridement Measurements and Additional Note: Post-Debridement Measurements/Treatment WC - Nurse 1 - General Ulcer Assessment Start: 03/07/21 09:51 Freq: Status: Active Protocol: MISSY Activity Type Activity Date Activity User E-Sign Co-Sign Detail Recorded Client Recorded Date Recorded By Document 03/07/21 09:52 DL [id number] 03/07/21 09:59 DL 03/07/21 09:52 WC - Today's Visit Information Type of service 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 ) Arrival Mode Wheelchair Transfer Assistance Manual Transfer Assist (Other) x1 Patient Identification Verified (Name & Yes ) Finger Stick Blood Sugar(mg/dl) (if 103 indicated): Blood Sugar Stated by Patient Height and Weight Body Mass Index (BMI) 24.9 BMI Classification Normal Vital Signs Temperature (97.8 F-99.1 F) 96.8 F L Temperature Source Temporal Pulse Rate (60-100) 59 L Pulse Location Monitor Respiratory Rate (12-18) 18 Respiratory rate source Observation Blood Pressure (90/60-120/80) 140/73 H Blood Pressure Mean (mm Hg) 95 Source Monitor History Since Last Visit- (Skip if this is Patient's initial visit) Have you changed medications since your No last visit? Any new allergies or adverse reactions No Had a fall/change in ADL's that may No increase risk of falls Signs or symptoms of abuse and/or No neglect since last visit Have you been in the hospital since your No last visit? Has dressing in place as prescribed Yes Has compression in place as prescribed Yes Has offloadiing in place as prescribed Yes Experienced any changes in pain level or No management Right Footwear Surgical Shoe with pressure relief insole Pain Scale: 0-10 Numeric Is Patient Pain Free? Yes - Nurse 1 - General Ulcer Measurement Start: 03/07/21 09:51 Freq: Status: Active Protocol: Activity Type Activity Date Activity User E-Sign Co-Sign Detail Recorded Client Recorded Date Recorded By Document 03/07/21 09:52 [id number] 03/07/21 09:59 DL 03/07/21 09:52 Wound Center Nurse 1 #2- R LAT ANKLE -Current Size (cm) - Length 0.6 -Current Size (cm) - Width 1.3 -Current Size (cm) - Depth 0.1 -Total Square Cm 0.78 -Photo Taken No -Exudate Amt Small -Exudate Type Serosanguineous -Wound Margin Distinct, Outline Attached -Granulation Amt Large (67-100%) -Granulation Quality [place] -Necrosis Amt Small (1-33%) -Necrotic Tissue Type Adherent Slough -Structure Exposed N/A -Texture (Shakira-wound Skin Appearance) Scarring -Moisture (Shakira-wound Skin Appearance) No Abnormality -Color (Shakira-wound Skin Appearance) No Abnormality -Temperature (Shakira-wound Skin No Abnormality Appearance) (Pt Warm) -Tenderness on Palpation (Shakira-wound No Skin Appearance) -Ulcer Cleansing Soap and Water -Foul Odor after Cleansing Yes -Anesthetic Used 5% Lidocaine Gel Right Calf (cm) 31 Right Ankle (cm) 21.5 WC - Nurse 2 - General Ulcer CM Notes Start: 03/07/21 09:51 Freq: Status: Active Protocol: Activity Type Activity Date Activity User E-Sign Co-Sign Detail Recorded Client Recorded Date Recorded By Document 03/07/21 10:04 KYRA [id number] 03/07/21 10:06 KYRA 03/07/21 10:04 Wound Center Nurse 2 #2- R LAT ANKLE -Time 10:05 -Correct Patient Yes -Correct Side, Site, Position Yes -Correct Procedure Yes -Procedure Performed Yes -Type of Procedure Debridement -Clinical Debridement Subcutaneous -Tissue Removed Subcutaneous -Post Debridement (cm) - Length 0.7 -Post Debridement (cm) - Width 1.5 -Post Debridement (cm) - Depth 0.2 -Total Square (Post) (cm) 1.05 -Area of Debridement (cm) - Length 0.7 -Area of Debridement (cm) - Width 1.5 -Total Square (Area) (cm) 1.05 -Tunneling No -Undermining/Tunneling No -Circular Undermining No -Wound/Ulcer Outcome Not Healed -Ulcer Cleansing Rinsed/ Irrigated with Saline -Foul Odor after Cleansing No -Bioengineered Tissue No -Bleeding Controlled with Pressure -Offloading Yes -Type of Offloading Surgical Shoe -Treatment Response Procedure Tolerated Well -Debridement - Subq, 1st 20sq cm Yes Pain Scale: 0-10 Numeric Is Patient Pain Free? Yes IRLANDA - Nurse 3 - General Ulcer D/C NN Start: 03/07/21 09:51 Freq: Status: Active Protocol: Activity Type Activity Date Activity User E-Sign Co-Sign Detail Recorded Client Recorded Date Recorded By Document 03/07/21 10:18 GRACIE [id number] 03/07/21 10:19 RB 03/07/21 10:18 Wound Care Nurse 3 #2- R LAT ANKLE -Ulcer Cleansing Wound Cleanser -Primary Dressing Applied C Hydrogel ($) -Primary Dressing Covered/Secured with Dry Gauze,Dry Gauze & Roll Gauze,Secured with Tape Right -Other colten Treatment Response Procedure Tolerated Well Pain Scale: 0-10 Numeric Is Patient Pain Free? Yes WC - Visit Discharge Discharge Condition Stable Ambulatory Status Wheelchair Transportation Private Auto Medication Reconcilliation completed & No provided to patient/care provider Clinical Summary of Care Provided Yes Assessment/Plan Assessment/Plan (1) Chronic ulcer of right leg with fat layer exposed: CODE(S): L97.912 - Non-pressure chronic ulcer of unspecified part of right lower leg with fat layer exposed (2) Other specified peripheral vascular diseases: CODE(S): I73.89 - Other specified peripheral vascular diseases (3) Type 2 diabetes mellitus with diabetic polyneuropathy: CODE(S): E11.42 - Type 2 diabetes mellitus with diabetic polyneuropathy QUALIFIERS: Diabetes mellitus shelter insulin use: unspecified salvage determiner insulin use status Qualified Code(s): E11.42 - Type 2 diabetes mellitus with diabetic polyneuropathy (4) Delayed wound healing: CODE(S): T14.8XXD - Other injury of unspecified body region, subsequent encounter (5) Unspecified protein-calorie malnutrition: CODE(S): E46 - Unspecified protein-calorie malnutrition QUALIFIERS: Protein-calorie malnutrition severity: unspecified severity Qualified Code(s): E46 - Unspecified protein-calorie malnutrition (6) Rheumatoid arthritis: CODE(S): M06.9 - Rheumatoid arthritis, unspecified PLAN: Patient seen and evaluated with daughter present I reviewed and discussed her case today. Dressing: To change dressing daily with santyl or yuli to ankle wound. ok to use Yuli before follow-up. Wash: Soap and water before each dressing change Offload: To continue with offloading surgical shoe to keep pressure off of the amputation site and lateral ankle Vascular: She has impaired vascular status and had vascular surgery intervention on 10-05-[address] Wilson as the following: Abdominal right lower extremity arteriogram with right anterior tibial balloon angioplasty with improved perfusion. To follow-up as scheduled. Edema: It is okay to wear an Colten wrap and intermittently elevate Infection: Her cellulitis has resolved. She had an MRI performed on 09-29-20 which did not confirm diagnosis of osteomyelitis. To complete IV antibiotics with a stop date of 12-14-20. She was reassured no local signs of infection are noted. I do not recommend additional antibiotics. She was scheduled to get her PICC line removed tomorrow. Diagnostic data from surgery on 11-02-20: Clearance fragments that were sent to pathology and microbiology which were negative for osteomyelitis or bacterial growth, respectively. Most recent blood cultures are also negative Pain: This is controlled today. Host factors: Her comorbidities are noted and this may contribute to delayed healing. I recommend nutritional supplementation with Maciej to optimize healing. She understands she is still at risk for limb loss and delays in healing. I answered all the patient's questions. To return to the wound healing center in 3 weeks, or call sooner if the patient has any questions or concerns. She is unable to follow-up sooner. Note: [employer] speech recognition color strainer software was used to create portions of this document. Sound-alike and misspelled words, as well as other color strainer errors may be contained in the documentation.
== END 2021-03-23 23:59 ==
LOC: WC 09:45
PROVIDERS: PCP Internal Medicine; Visit Provider Podiatrist
DX: L97.312 Non-pressure chronic ulcer of right ankle with fat layer exposed (principal); E11.42 Type 2 diabetes mellitus with diabetic polyneuropathy; M06.9 Rheumatoid arthritis, unspecified; Z79.84 Long term (current) use of oral hypoglycemic drugs; Z79.82 Long term (current) use of aspirin; Z79.899 Other long term (current) drug therapy; Z89.411 Acquired absence of right great toe
CPT/HCPCS: 11042

== ENCOUNTER 2021-04-18 09:45 | Outpatient (RCR) | payer OTHER, SELFPAY ==
[2021-03-24 00:28] VITALS: BP 140/73; PULSE 59; RESP 18; TEMP 36; BMI 24.9
[2021-03-28 09:46] VITALS: BP 152/66; PULSE 52; RESP 18; TEMP 36.3; BMI 24.9
--- NOTE | 2021-03-28 22:27 | PN.PCM_ITS ---
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 She changes the surgical site with gauze, and the open ulcer site with hydrogel as advised. She already had vascular intervention and adventist by Dr. Wilson; additional intervention is not planned. She denies odor or redness. She denies fever, chill, nausea, vomiting, diarrhea. She is difficulty coming to the wound center every 1 to 2 weeks and request longer follow-up. This is very taxing for her and contributes to excessive fatigue. She denies fever, chill, nausea, vomiting. Progress of Wound: improving Objective Data Objective Data Vital Signs: Vital Signs Temp Pulse Resp BP 97.4 F L 52 L 18 152/66 H 03/28/21 09:46 03/28/21 09:46 03/28/21 09:46 03/28/21 09:46 Weight: 65.771 kg Body Mass Index (BMI) 24.9 Physical Exam Const alert and oriented x3 General Appearance: cooperative HEENT normocephalic Extremity Extremity Narrative: No calf tenderness Diminished pulses Muscle wasting noted General Extremity: edema and no tenderness to palpation of joints or extremities; Negative for cyanosis Skin Skin Narrative: no purulence, no streaking, no odor, no infection. Granular base at open amputation site with reduced size. There is no skin island between the distal and the plantar ulcer sites. There is no longer any exposed bone or tendon. The remaining retention sutures were removed today. General Skin Exam: Negative for erythema Neuro Neuro Narrative: lack of normal epicritic sensation via light touch is consistent with neuropathy status Psych cooperative and affect normal Debridement Note Debridement Note Wound debrided: right foot Wound Grade/Stage: 3 Type of Debridement: Excisional debridement Anesthesia Used: 4% Lidocaine Solution Depth: in the subcutaneous layer Percentage of wound debrided: 100 Instrument Used: #15 blade Tissue Removed: fibrous, devitalized subcutaneous, biofilm, slough Severity: Fat Layer Exposed Amount of bleeding with debridement: Mild Bleeding Controlled with: Pressure Patient tolerated procedure: Patient tolerated procedure well Post-Debridement Measurements and Additional Note: Post-Debridement Measurements/Treatment WC - Nurse 1 - General Ulcer Assessment Start: 03/28/21 09:45 Freq: Status: Active Protocol: MISSY Activity Type Activity Date Activity User E-Sign Co-Sign Detail Recorded Client Recorded Date Recorded By Document 03/28/21 09:46 DL [id number] 03/28/21 09:49 DL 03/28/21 09:46 - Today's Visit Information Type of service 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 ) Arrival Mode Ambulatory, Wheelchair Transfer Assistance None Patient Identification Verified (Name & Yes ) Patient Requires Transmission-Based No Precautions Finger Stick Blood Sugar(mg/dl) (if 106 indicated): Blood Sugar Stated by Patient Height and Weight Body Mass Index (BMI) 24.9 BMI Classification Normal Vital Signs Temperature (97.8 F-99.1 F) 97.4 F L Temperature Source Temporal Pulse Rate (60-100) 52 L Pulse Location Monitor Respiratory Rate (12-18) 18 Respiratory rate source Observation Blood Pressure (90/60-120/80) 152/66 H Blood Pressure Mean (mm Hg) 94 Source Monitor History Since Last Visit- (Skip if this is Patient's initial visit) Have you changed medications since your No last visit? Any new allergies or adverse reactions No Had a fall/change in ADL's that may No increase risk of falls Signs or symptoms of abuse and/or No neglect since last visit Have you been in the hospital since your No last visit? Has dressing in place as prescribed Yes Has compression in place as prescribed Yes Has offloadiing in place as prescribed N/A Experienced any changes in pain level or No management Pain Scale: 0-10 Numeric Is Patient Pain Free? Yes - Nurse 1 - General Ulcer Measurement Start: 03/28/21 09:45 Freq: Status: Active Protocol: Activity Type Activity Date Activity User E-Sign Co-Sign Detail Recorded Client Recorded Date Recorded By Document 03/28/21 09:46 DL [id number] 03/28/21 09:49 DL 03/28/21 09:46 Wound Center Nurse 1 #2- R LAT ANKLE -Current Size (cm) - Length 0.1 -Current Size (cm) - Width 0.1 -Current Size (cm) - Depth 0.1 -Total Square Cm 0.01 -Photo Taken No -Exudate Amt Small -Wound Margin Distinct, Outline Attached -Granulation Amt Large (67-100%) -Granulation Quality Pale,[place] -Necrosis Amt None Present (0 %) -Structure Exposed N/A -Texture (Shakira-wound Skin Appearance) Scarring -Moisture (Shakira-wound Skin Appearance) No Abnormality -Color (Shakira-wound Skin Appearance) No Abnormality -Temperature (Shakira-wound Skin No Abnormality Appearance) (Pt Warm) -Tenderness on Palpation (Shakira-wound No Skin Appearance) -Ulcer Cleansing Soap and Water -Foul Odor after Cleansing No -Anesthetic Used 5% Lidocaine Gel WC - Nurse 2 - General Ulcer CM Notes Start: 03/28/21 09:45 Freq: Status: Active Protocol: Activity Type Activity Date Activity User E-Sign Co-Sign Detail Recorded Client Recorded Date Recorded By Document 03/28/21 10:13 KYRA [id number] 03/28/21 10:15 JF 03/28/21 10:13 Wound Center Nurse 2 -Time 10:14 -Correct Patient Yes -Correct Side, Site, Position Yes -Correct Procedure Yes -Procedure Performed Yes -Type of Procedure Debridement -Clinical Debridement Subcutaneous -Tissue Removed Subcutaneous -Post Debridement (cm) - Length 0.8 -Post Debridement (cm) - Width 0.9 -Post Debridement (cm) - Depth 0.2 -Total Square (Post) (cm) 0.72 -Area of Debridement (cm) - Length 0.8 -Area of Debridement (cm) - Width 0.9 -Total Square (Area) (cm) 0.72 -Tunneling No -Undermining/Tunneling No -Circular Undermining No -Wound/Ulcer Outcome Not Healed -Ulcer Cleansing Rinsed/ Irrigated with Saline -Foul Odor after Cleansing No -Bioengineered Tissue No -Bleeding Controlled with Pressure -Offloading Yes -Type of Offloading Surgical Shoe -Treatment Response Procedure Tolerated Well -Debridement - Subq, 1st 20sq cm Yes Pain Scale: 0-10 Numeric Is Patient Pain Free? Yes IRLANDA - Nurse 3 - General Ulcer D/C NN Start: 03/28/21 09:45 Freq: Status: Active Protocol: Activity Type Activity Date Activity User E-Sign Co-Sign Detail Recorded Client Recorded Date Recorded By Document 03/28/21 10:21 DL [id number] 03/28/21 10:21 DL 03/28/21 10:21 Wound Care Nurse 3 #2- R LAT ANKLE -Ulcer Cleansing Rinsed/ Irrigated with Saline -Foul Odor after Cleansing No -Negative Pressure Wound Therapy N/A -Primary Dressing Applied C Hydrogel ($) Right -Lotion applied to leg before No compression wrap -Compression Wrap Colten Wrap WC - Visit Discharge Discharge Condition Stable Ambulatory Status Ambulatory Transportation Private Auto Medication Reconcilliation completed & No provided to patient/care provider Clinical Summary of Care Provided Yes Assessment/Plan Assessment/Plan (1) Other specified peripheral vascular diseases: CODE(S): I73.89 - Other specified peripheral vascular diseases (2) Type 2 diabetes mellitus with diabetic polyneuropathy: CODE(S): E11.42 - Type 2 diabetes mellitus with diabetic polyneuropathy QUALIFIERS: Diabetes mellitus assisted insulin use: unspecified l migue term insulin use status Qualified Code(s): E11.42 - Type 2 diabetes mellitus with diabetic polyneuropathy (3) Delayed wound healing: CODE(S): T14.8XXD - Other injury of unspecified body region, subsequent encounter (4) Unspecified protein-calorie malnutrition: CODE(S): E46 - Unspecified protein-calorie malnutrition QUALIFIERS: Protein-calorie malnutrition severity: unspecified severity Qualified Code(s): E46 - Unspecified protein-calorie malnutrition (5) Rheumatoid arthritis: CODE(S): M06.9 - Rheumatoid arthritis, unspecified (6) Ulcer of right foot with bone involvement without evidence of necrosis: CODE(S): L97.516 - Non-pressure chronic ulcer of other part of right foot with bone involvement without evidence of necrosis PLAN: Patient seen and evaluated with daughter present I reviewed and discussed her case today. Dressing: To change dressing daily with santyl or yuli to ankle wound. ok to use Yuli before follow-up. Wash: Soap and water before each dressing change Offload: To continue with offloading surgical shoe to keep pressure off of the amputation site and lateral ankle Vascular: She has impaired vascular status and had vascular surgery intervention on 10-05-[address] Wilson as the following: Abdominal right lower extremity arteriogram with right anterior tibial balloon angioplasty with improved perfusion. To follow-up as scheduled. Edema: It is okay to wear an Colten wrap and intermittently elevate Infection: Her cellulitis has resolved. She had an MRI performed on 09-29-20 which did not confirm diagnosis of osteomyelitis. To complete IV antibiotics with a stop date of 12-14-20. She was reassured no local signs of infection are noted. I do not recommend additional antibiotics. She was scheduled to get her PICC line removed tomorrow. Diagnostic data from surgery on 11-02-20: Clearance fragments that were sent to pathology and microbiology which were negative for osteomyelitis or bacterial growth, respectively. Most recent blood cultures are also negative Pain: This is controlled today. Host factors: Her comorbidities are noted and this may contribute to delayed healing. I recommend nutritional supplementation with Maciej to optimize healing. She understands she is still at risk for limb loss and delays in healing. I answered all the patient's questions. To return to the wound healing center in 3 weeks, or call sooner if the patient has any questions or concerns. She is unable to follow-up sooner. Note: [facility] speech recognition talent acquisition specialist software was used to create portions of this document. Sound-alike and misspelled words, as well as other talent acquisition specialist errors may be contained in the documentation.
[2021-04-18 09:38] VITALS: BP 163/66; PULSE 56; RESP 16; TEMP 36.2; BMI 24.9
--- NOTE | 2021-04-18 10:26 | PN.PCM_ITS ---
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 She changes the surgical site with gauze, and the open ulcer site with hydrogel as advised. She already had vascular intervention and hoahaoism by Dr. Wilson; additional intervention is not planned. She denies odor or redness. She denies fever, chill, nausea, vomiting, diarrhea. She is difficulty coming to the wound center every 1 to 2 weeks and request longer follow-up. This is very taxing for her and contributes to excessive fatigue. She denies fever, chill, nausea, vomiting. she asks for help safely trimming her toenails today that she cannot perform on her own. She has history of bilateral partial foot amputations. Progress of Wound: improving Objective Data Objective Data Vital Signs: Vital Signs Temp Pulse Resp BP 97.1 F L 56 L 16 163/66 H 04/18/21 09:38 04/18/21 09:38 04/18/21 09:38 04/18/21 09:38 Oxygen Delivery Method Room Air Weight: 65.771 kg Body Mass Index (BMI) 24.9 Physical Exam Extremity Extremity Narrative: No calf tenderness Diminished pulses Muscle wasting noted Skin Skin Narrative: no purulence, no streaking, no odor, no infection. Granular base lateral ankle over malleoli site. There is no longer any exposed bone or tendon. nail long thick dystrophic with subungual debris bilateral 3,4,5 without additional ulcers or infections Neuro Neuro Narrative: lack of normal epicritic sensation via light touch is consistent with neuropathy status Debridement Note Debridement Note Wound debrided: lateral right ankle Wound Grade/Stage: 1 Type of Debridement: Excisional debridement Anesthesia Used: 4% Lidocaine Solution Depth: in the subcutaneous layer Percentage of wound debrided: 100 Instrument Used: #15 blade Tissue Removed: fibrous, devitalized subcutaneous, biofilm, slough Severity: Fat Layer Exposed Amount of bleeding with debridement: Mild Bleeding Controlled with: Pressure Patient tolerated procedure: Patient tolerated procedure well Post-Debridement Measurements and Additional Note: Post-Debridement Measurements/Treatment WC - Nurse 1 - General Ulcer Assessment Start: 03/28/21 09:45 Freq: Status: Active Protocol: WC.LOWEXT Activity Type Activity Date Activity User E-Sign Co-Sign Detail Recorded Client Recorded Date Recorded By Document 03/28/21 09:46 DL [id number] 03/28/21 09:49 DL Document 04/18/21 09:38 [facility] [id number] 04/18/21 09:48 BMF 03/28/21 04/18/21 09:46 09:38 WC - Today's Visit Information Type of service Follow-up Visit Follow-up Visit (Physician/DAYTIME CAREGIVER (Physician/DAYTIME CAREGIVER ) ) Arrival Mode Ambulatory, Ambulatory,Cane Wheelchair Transfer Assistance None None Patient Identification Verified (Name & Yes Yes ) Patient Requires Transmission-Based No Precautions Finger Stick Blood Sugar(mg/dl) (if 106 indicated): Blood Sugar Stated by Patient Height and Weight Body Mass Index (BMI) 24.9 24.9 BMI Classification Normal Normal Vital Signs Temperature (97.8 F-99.1 F) 97.4 F L 97.1 F L Temperature Source Temporal Temporal Pulse Rate (60-100) 52 L 56 L Pulse Location Monitor Monitor Respiratory Rate (12-18) 18 16 Respiratory rate source Observation Observation Oxygen Delivery Method Room Air Blood Pressure (90/60-120/80) 152/66 H 163/66 H Blood Pressure Mean (mm Hg) 94 98 Source Monitor Monitor Position Sitting Blood Pressure Location Right Arm Comment pt checks her bp at home often & states its always wnl History Since Last Visit- (Skip if this is Patient's initial visit) Have you changed medications since your No No last visit? Any new allergies or adverse reactions No No Had a fall/change in ADL's that may No No increase risk of falls Signs or symptoms of abuse and/or No No neglect since last visit Have you been in the hospital since your No No last visit? Has dressing in place as prescribed Yes Yes Has compression in place as prescribed Yes Yes Has offloadiing in place as prescribed N/A N/A Experienced any changes in pain level or No No management Left Footwear Regular Shoe Right Footwear Surgical Shoe with pressure relief insole Pain Scale: 0-10 Numeric Is Patient Pain Free? Yes Yes - Nurse 1 - General Ulcer Measurement Start: 03/28/21 09:45 Freq: Status: Active Protocol: Activity Type Activity Date Activity User E-Sign Co-Sign Detail Recorded Client Recorded Date Recorded By Document 03/28/21 09:46 DL [id number] 03/28/21 09:49 DL Document 04/18/21 09:38 [facility] [id number] 04/18/21 09:48 [facility] 03/28/21 04/18/21 09:46 09:38 Wound Center Nurse 1 #2- R LAT ANKLE -Combined with other wound No -Current Size (cm) - Length 0.1 1.5 -Current Size (cm) - Width 0.1 1.8 -Current Size (cm) - Depth 0.1 0.1 -Total Square Cm 0.01 2.70 -Photo Taken No No -Epithelialization None Present -Tunneling No -Undermining/Tunneling No -Circular Undermining No -Exudate Amt Small Small -Exudate Type Serous -Wound Margin Distinct, Distinct, Outline Outline Attached Attached -Granulation Amt Large (67-100%) None Present (0 %) -Granulation Quality Pale,[place] -Slough/Fibrin Yes -Necrosis Amt None Present (0 Large (67-100%) %) -Necrotic Tissue Type Eschar -Structure Exposed N/A -Texture (Shakira-wound Skin Appearance) Scarring Assessed, Scarring -Moisture (Shakira-wound Skin Appearance) No Abnormality Assessed,Dry/ Scaly -Color (Shakira-wound Skin Appearance) No Abnormality Assessed -Temperature (Shakira-wound Skin No Abnormality No Abnormality Appearance) (Pt Warm) (Pt Warm) -Tenderness on Palpation (Shakira-wound No No Skin Appearance) -Ulcer Cleansing Soap and Water Rinsed/ Irrigated with Saline -Foul Odor after Cleansing No No -Anesthetic Used 5% Lidocaine 5% Lidocaine Gel Gel Lower Limb Edema Present Yes Right Calf (cm) 33 Right Ankle (cm) 22.6 WC - Nurse 2 - General Ulcer CM Notes Start: 03/28/21 09:45 Freq: Status: Active Protocol: Activity Type Activity Date Activity User E-Sign Co-Sign Detail Recorded Client Recorded Date Recorded By Document 03/28/21 10:13 [id number] 03/28/21 10:15 JF Document 04/18/21 09:51 [id number] 04/18/21 09:54 03/28/21 04/18/21 10:13 09:51 Wound Center Nurse 2 #2- R LAT ANKLE -Time 10:14 09:52 -Correct Patient Yes Yes -Correct Side, Site, Position Yes Yes -Correct Procedure Yes Yes -Procedure Performed Yes Yes -Type of Procedure Debridement Debridement -Clinical Debridement Subcutaneous Subcutaneous -Tissue Removed Subcutaneous Subcutaneous -Post Debridement (cm) - Length 0.8 0.9 -Post Debridement (cm) - Width 0.9 1.5 -Post Debridement (cm) - Depth 0.2 0.2 -Total Square (Post) (cm) 0.72 1.35 -Area of Debridement (cm) - Length 0.8 0.9 -Area of Debridement (cm) - Width 0.9 1.5 -Total Square (Area) (cm) 0.72 1.35 -Tunneling No No -Undermining/Tunneling No No -Circular Undermining No No -Wound/Ulcer Outcome Not Healed Not Healed -Ulcer Cleansing Rinsed/ Rinsed/ Irrigated with Irrigated with Saline Saline -Foul Odor after Cleansing No No -Bioengineered Tissue No No -Bleeding Controlled with Pressure Pressure -Offloading Yes No -Type of Offloading Surgical Shoe -Treatment Response Procedure Procedure Tolerated Well Tolerated Well -Debridement - Subq, 1st 20sq cm Yes Yes Pain Scale: 0-10 Numeric Is Patient Pain Free? Yes Yes - Nurse 3 - General Ulcer D/C NN Start: 03/28/21 09:45 Freq: Status: Active Protocol: Activity Type Activity Date Activity User E-Sign Co-Sign Detail Recorded Client Recorded Date Recorded By Document 03/28/21 10:21 [id number] 03/28/21 10:21 DL Document 04/18/21 10:01 [id number] 04/18/21 10:01 03/28/21 04/18/21 10:21 10:01 Wound Care Nurse 3 #2- R LAT ANKLE -Ulcer Cleansing Rinsed/ Rinsed/ Irrigated with Irrigated with Saline Saline -Foul Odor after Cleansing No No -Negative Pressure Wound Therapy N/A -Primary Dressing Applied C Hydrogel ($) C Hydrogel ($) -Primary Dressing Covered/Secured with Dry Gauze & Roll Gauze, Secured with Tape Right -Lotion applied to leg before No compression wrap -Compression Wrap Colten Wrap Colten Wrap Pain Scale: 0-10 Numeric Is Patient Pain Free? Yes WC - Visit Discharge Discharge Condition Stable Stable Ambulatory Status Ambulatory Ambulatory,Cane Transportation Private Auto Private Auto Medication Reconcilliation completed & No Yes provided to patient/care provider Clinical Summary of Care Provided Yes Yes Assessment/Plan Assessment/Plan (1) Other specified peripheral vascular diseases: CODE(S): I73.89 - Other specified peripheral vascular diseases (2) Type 2 diabetes mellitus with diabetic polyneuropathy: CODE(S): E11.42 - Type 2 diabetes mellitus with diabetic polyneuropathy QUALIFIERS: Diabetes mellitus snf insulin use: unspecified snf insulin use status Qualified Code(s): E11.42 - Type 2 diabetes mellitus with diabetic polyneuropathy (3) Delayed wound healing: CODE(S): T14.8XXD - Other injury of unspecified body region, subsequent encounter (4) Unspecified protein-calorie malnutrition: CODE(S): E46 - Unspecified protein-calorie malnutrition QUALIFIERS: Protein-calorie malnutrition severity: unspecified severity Qualified Code(s): E46 - Unspecified protein-calorie malnutrition (5) Rheumatoid arthritis: CODE(S): M06.9 - Rheumatoid arthritis, unspecified (6) Tinea unguium: CODE(S): B35.1 - Tinea unguium (7) Chronic ulcer of right leg with fat layer exposed: CODE(S): L97.912 - Non-pressure chronic ulcer of unspecified part of right lower leg with fat layer exposed PLAN: Patient seen and evaluated with daughter present I reviewed and discussed her case today. Dressing: To change dressing daily with santyl. Wash: Soap and water before each dressing change Offload: To continue with offloading surgical shoe to keep pressure off of the amputation site and lateral ankle Vascular: She has impaired vascular status and had vascular surgery intervention on 10-05-[address] Wilson as the following: Abdominal right lower extremity arteriogram with right anterior tibial balloon angioplasty with improved perfusion. To follow-up as scheduled. Edema: It is okay to wear an Colten wrap and intermittently elevate Infection: Her cellulitis has resolved. She had an MRI performed on 09-29-20 which did not confirm diagnosis of osteomyelitis. To complete IV antibiotics with a stop date of 12-14-20. She was reassured no local signs of infection are noted. I do not recommend additional antibiotics. She was scheduled to get her PICC line removed tomorrow. Diagnostic data from surgery on 11-02-20: Clearance fragments that were sent to pathology and microbiology which were negative for osteomyelitis or bacterial growth, respectively. Most recent blood cultures are also negative Pain: This is controlled today. Host factors: Her comorbidities are noted and this may contribute to delayed healing. I recommend nutritional supplementation with Maciej to optimize healing. She understands she is still at risk for limb loss and delays in healing. I answered all the patient's questions. To return to the wound healing center in 3 weeks, or call sooner if the patient has any questions or concerns. She is unable to follow-up sooner. The etiology of thickened toenails was briefly reviewed including fungus or microtrauma. The nails were debrided with a nail nipper after verbal consent was obtained without incident; bilateral 3, 4, 5. The nails were debrided in length and thickness to reduce pressure, potential fungal load, and to prevent wound formation. The patient tolerated this well. The patient elects proceed with palliative care only at this time with the nails and will hold off on further work-up. Note: [employer] speech recognition tin container straightener software was used to create portions of this document. Sound-alike and misspelled words, as well as other tin container straightener errors may be contained in the documentation.
== END 2021-04-23 23:59 ==
LOC: WC 09:45
PROVIDERS: PCP Internal Medicine; Visit Provider Podiatrist
DX: E11.622 Type 2 diabetes mellitus with other skin ulcer (principal); E11.51 Type 2 diabetes mellitus with diabetic peripheral angiopathy without gangrene; L97.312 Non-pressure chronic ulcer of right ankle with fat layer exposed; M06.9 Rheumatoid arthritis, unspecified; E11.42 Type 2 diabetes mellitus with diabetic polyneuropathy; B35.1 Tinea unguium; Z79.82 Long term (current) use of aspirin; Z79.84 Long term (current) use of oral hypoglycemic drugs; Z79.899 Other long term (current) drug therapy
CPT/HCPCS: 11042

== ENCOUNTER 2021-05-09 09:30 | Outpatient (RCR) | payer OTHER, SELFPAY ==
[2021-04-24 00:36] VITALS: BP 163/66; PULSE 56; RESP 16; TEMP 36.2; BMI 24.9
[2021-05-09 09:05] VITALS: BP 132/48; PULSE 61; RESP 18; TEMP 35.8; BMI 24.9
--- NOTE | 2021-05-09 10:46 | PCM.WC.PN ---
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 She changes the surgical site with gauze, and the open ulcer site with hydrogel as advised. She already had vascular intervention and zoroastrian by Dr. Wilson; additional intervention is not planned. She denies odor or redness. She denies fever, chill, nausea, vomiting, diarrhea. She is difficulty coming to the wound center every 1 to 2 weeks and request longer follow-up. This is very taxing for her and contributes to excessive fatigue. She denies fever, chill, nausea, vomiting. She has history of bilateral partial foot amputations. Progress of Wound: improving Objective Data Objective Data Vital Signs: Vital Signs Temp Pulse Resp BP 96.5 F L 61 18 132/48 H 05/09/21 09:05 05/09/21 09:05 05/09/21 09:05 05/09/21 09:05 Weight: 65.771 kg Body Mass Index (BMI) 24.9 Physical Exam Extremity Extremity Narrative: No calf tenderness Diminished pulses Muscle wasting noted Skin Skin Narrative: no purulence, no streaking, no odor, no infection. Granular base lateral ankle over malleoli site with significant size reduction and depth reduction also. There is no longer any exposed bone or tendon. Neuro Neuro Narrative: lack of normal epicritic sensation via light touch is consistent with neuropathy status Debridement Note Debridement Note Wound debrided: Lateral right ankle Wound Grade/Stage: 1 Type of Debridement: Excisional debridement Anesthesia Used: 4% Lidocaine Solution Depth: in the subcutaneous layer Percentage of wound debrided: 100 Instrument Used: #15 blade Tissue Removed: fibrous, devitalized subcutaneous, biofilm, slough Severity: Fat Layer Exposed Amount of bleeding with debridement: Mild Bleeding Controlled with: Pressure Patient tolerated procedure: Patient tolerated procedure well Post-Debridement Measurements and Additional Note: Post-Debridement Measurements/Treatment IRLANDA - Nurse 1 - General Ulcer Assessment Start: 05/09/21 09:05 Freq: Status: Active Protocol: MISSY Activity Type Activity Date Activity User E-Sign Co-Sign Detail Recorded Client Recorded Date Recorded By Document 05/09/21 09:05 JANAE [id number] 05/09/21 09:12 DL 05/09/21 09:05 WC - Today's Visit Information Type of service Follow-up Visit (Physician/EMBOSSING PRESS OPERATOR APPRENTICE ) Arrival Mode Ambulatory Transfer Assistance None Patient Identification Verified (Name & Yes ) Finger Stick Blood Sugar(mg/dl) (if 106 indicated): Blood Sugar Stated by Patient Height and Weight Body Mass Index (BMI) 24.9 BMI Classification Normal Vital Signs Temperature (97.8 F-99.1 F) 96.5 F L Temperature Source Temporal Pulse Rate (60-100) 61 Pulse Location Monitor Respiratory Rate (12-18) 18 Respiratory rate source Observation Blood Pressure (90/60-120/80) 132/48 H Blood Pressure Mean (mm Hg) 76 Source Monitor History Since Last Visit- (Skip if this is Patient's initial visit) Have you changed medications since your No last visit? Any new allergies or adverse reactions No Had a fall/change in ADL's that may No increase risk of falls Signs or symptoms of abuse and/or No neglect since last visit Have you been in the hospital since your No last visit? Has dressing in place as prescribed Yes Has compression in place as prescribed Yes Has offloadiing in place as prescribed Yes Experienced any changes in pain level or No management Right Footwear Surgical Shoe with pressure relief insole Pain Scale: 0-10 Numeric Is Patient Pain Free? Yes WC - Nurse 1 - General Ulcer Measurement Start: 05/09/21 09:05 Freq: Status: Active Protocol: Activity Type Activity Date Activity User E-Sign Co-Sign Detail Recorded Client Recorded Date Recorded By Document 05/09/21 09:05 [id number] 05/09/21 09:12 05/09/21 09:05 Wound Center Nurse 1 #2- R LAT ANKLE -Current Size (cm) - Length 0.7 -Current Size (cm) - Width 1.4 -Current Size (cm) - Depth 0.1 -Total Square Cm 0.98 -Photo Taken Yes -Exudate Amt Small -Exudate Type Serosanguineous -Wound Margin Distinct, Outline Attached -Granulation Amt None Present (0 %) -Necrosis Amt Large (67-100%) -Necrotic Tissue Type Adherent Slough -Structure Exposed N/A -Texture (Shakira-wound Skin Appearance) Localized Edema ,Scarring -Moisture (Shakira-wound Skin Appearance) No Abnormality -Color (Shakira-wound Skin Appearance) No Abnormality -Temperature (Shakira-wound Skin No Abnormality Appearance) (Pt Warm) -Tenderness on Palpation (Shakira-wound No Skin Appearance) -Ulcer Cleansing Rinsed/ Irrigated with Saline -Foul Odor after Cleansing No -Anesthetic Used 4% Lidocaine Solution Right Calf (cm) 31 Right Ankle (cm) 22.3 WC - Nurse 2 - General Ulcer CM Notes Start: 05/09/21 09:05 Freq: Status: Active Protocol: Activity Type Activity Date Activity User E-Sign Co-Sign Detail Recorded Client Recorded Date Recorded By Document 05/09/21 09:32 KYRA [id number] 05/09/21 09:34 KYRA 05/09/21 09:32 Wound Center Nurse 2 #2- R LAT ANKLE -Time 09:33 -Correct Patient Yes -Correct Side, Site, Position Yes -Procedure Performed Yes -Type of Procedure Debridement -Clinical Debridement Subcutaneous -Tissue Removed Subcutaneous -Post Debridement (cm) - Length 0.3 -Post Debridement (cm) - Width 0.3 -Post Debridement (cm) - Depth 0.1 -Total Square (Post) (cm) 0.09 -Area of Debridement (cm) - Length 0.3 -Area of Debridement (cm) - Width 0.3 -Total Square (Area) (cm) 0.09 -Tunneling No -Undermining/Tunneling No -Circular Undermining No -Wound/Ulcer Outcome Not Healed -Ulcer Cleansing Rinsed/ Irrigated with Saline -Foul Odor after Cleansing No -Bioengineered Tissue No -Bleeding Controlled with Pressure -Offloading No -Treatment Response Procedure Tolerated Well -Debridement - Subq, 1st 20sq cm Yes Pain Scale: 0-10 Numeric Is Patient Pain Free? Yes - Nurse 3 - General Ulcer D/C NN Start: 05/09/21 09:05 Freq: Status: Active Protocol: Activity Type Activity Date Activity User E-Sign Co-Sign Detail Recorded Client Recorded Date Recorded By Document 05/09/21 09:47 RB [id number] 05/09/21 09:48 RB 05/09/21 09:47 Wound Care Nurse 3 #2- R LAT ANKLE -Other Dressing hydrogel, gauze , colten -Primary Dressing Covered/Secured with Dry Gauze,Dry Gauze & Roll Gauze,Secured with Tape Pain Scale: 0-10 Numeric Is Patient Pain Free? Yes WC - Visit Discharge Discharge Condition Stable Ambulatory Status Ambulatory,Cane Transportation Private Auto Medication Reconcilliation completed & No provided to patient/care provider Clinical Summary of Care Provided Yes Assessment/Plan Assessment/Plan (1) Other specified peripheral vascular diseases: CODE(S): I73.89 - Other specified peripheral vascular diseases (2) Type 2 diabetes mellitus with diabetic polyneuropathy: CODE(S): E11.42 - Type 2 diabetes mellitus with diabetic polyneuropathy QUALIFIERS: Diabetes mellitus manager intermediate insulin use: unspecified long-term insulin use status Qualified Code(s): E11.42 - Type 2 diabetes mellitus with diabetic polyneuropathy (3) Delayed wound healing: CODE(S): T14.8XXD - Other injury of unspecified body region, subsequent encounter (4) Unspecified protein-calorie malnutrition: CODE(S): E46 - Unspecified protein-calorie malnutrition QUALIFIERS: Protein-calorie malnutrition severity: unspecified severity Qualified Code(s): E46 - Unspecified protein-calorie malnutrition (5) Rheumatoid arthritis: CODE(S): M06.9 - Rheumatoid arthritis, unspecified (6) Chronic ulcer of right leg with fat layer exposed: CODE(S): L97.912 - Non-pressure chronic ulcer of unspecified part of right lower leg with fat layer exposed PLAN: Patient seen and evaluated with daughter present I reviewed and discussed her case today. Dressing: To change dressing daily with santyl. Wash: Soap and water before each dressing change Offload: To continue with offloading surgical shoe. Vascular: She has impaired vascular status and had vascular surgery intervention on 10-05-[address] Wilson as the following: Abdominal right lower extremity arteriogram with right anterior tibial balloon angioplasty with improved perfusion. To follow-up as scheduled. Edema: It is okay to wear an Colten wrap and intermittently elevate Infection: Her cellulitis has resolved. She had an MRI performed on 09-29-20 which did not confirm diagnosis of osteomyelitis. To complete IV antibiotics with a stop date of 12-14-20. She was reassured no local signs of infection are noted. I do not recommend additional antibiotics. She was scheduled to get her PICC line removed tomorrow. Diagnostic data from surgery on 8-12-21: Clearance fragments that were sent to pathology and microbiology which were negative for osteomyelitis or bacterial growth, respectively. Most recent blood cultures are also negative Pain: This is controlled today. Host factors: Her comorbidities are noted and this may contribute to delayed healing. I recommend nutritional supplementation with Maciej to optimize healing. She understands she is still at risk for limb loss and delays in healing. I answered all the patient's questions. To return to the wound healing center in 3 weeks, or call sooner if the patient has any questions or concerns. She is unable to follow-up sooner. This patient elects proceed with palliative care only at this time with the nails and will hold off on further work-up. Note: [employer] speech recognition event marketing representative software was used to create portions of this document. Sound-alike and misspelled words, as well as other event marketing representative errors may be contained in the documentation.
== END 2021-05-21 23:59 | disposition home or self-care (01) ==
LOC: WC 09:30
PROVIDERS: PCP Internal Medicine; Visit Provider Podiatrist
DX: E11.622 Type 2 diabetes mellitus with other skin ulcer (principal); E11.51 Type 2 diabetes mellitus with diabetic peripheral angiopathy without gangrene; L97.312 Non-pressure chronic ulcer of right ankle with fat layer exposed; M06.9 Rheumatoid arthritis, unspecified; E11.42 Type 2 diabetes mellitus with diabetic polyneuropathy; Z79.82 Long term (current) use of aspirin; Z79.84 Long term (current) use of oral hypoglycemic drugs; Z79.899 Other long term (current) drug therapy
CPT/HCPCS: 11042

== ENCOUNTER 2021-05-23 14:49 | Emergency (ER) | payer OTHER, SELFPAY ==
[2021-05-23 14:51] VITALS: BP 141/77; PULSE 59; RESP 18; TEMP 37.1; O2SAT 98; BMI 29.1
--- NOTE | 2021-05-23 15:10 | EX.ED.DYSGE1 ---
HPI History of Present Illness Chief Complaint: General Illness Informant: patient Onset/Context/Timing Onset: Yesterday Narrative Narrative: Presents here with daughter reporting concerns for possible stools coming out of vagina after bowel movement today. States liquid brown. Nonbloody. Denies pain in the area. Yesterday states noted yellow liquid x2 episodes. She has had a total hysterectomy in the past. She was told history of diverticulitis with diverticulosis on colonoscopy performed by Dr. Wilson in the past. Reports 2 weeks ago had a urinary tract infection treated urgent care with a week of antibiotics. Denies current urine symptoms. Denies any pain. Did not contact anybody. Her daughter states just came here due to experiences in the past being sent to the emergency department. Prior similar symptoms: No PFSH PFSH Medical History Arthritis Breast lump in female Cataracts, bilateral CKD (chronic kidney disease) Controlled type 2 diabetes mellitus with hyperglycemia Delayed wound healing Diabetes Diverticulosis Gallstones Heart failure High blood pressure Kidney stones Non-smoker Osteoarthritis Peripheral arterial disease Type 2 diabetes mellitus with diabetic polyneuropathy Ulcer of right foot with necrosis of bone Ulcer of right lower extremity with muscle involvement without evidence of necrosis Unspecified protein-calorie malnutrition Home Medications glyburide 5 mg PO DAILY@0800 08/26/15 [History Last Taken 11/01/20] metformin 500 mg PO TIDCM 08/26/15 [History Last Taken 11/01/20] ascorbic acid (vitamin C) 500 mg PO DAILY@1200 12/09/16 [History Last Taken 11/01/20] atenolol 50 mg PO BID 12/09/16 [History Last Taken 11/01/20] cholecalciferol (vitamin D3) 1,000 unit PO DAILY@1200 12/09/16 [History Last Taken 11/01/20] cyanocobalamin (vitamin B-12) 1,000 mcg PO DAILY@1200 12/09/16 [History Last Taken 11/01/20] multivitamin 1 ea PO DAILY@1200 12/09/16 [History Last Taken 11/01/20] omega-3 fatty acids-fish oil 1 cap PO BID 12/09/16 [History Last Taken 11/01/20] aspirin 81 mg PO DAILY 06/11/17 [History Last Taken 11/01/20] magnesium oxide 400 mg PO DAILY@1200 03/01/20 [History Last Taken 11/01/20] amlodipine 10 mg PO DAILY 09/29/20 [History Last Taken 11/01/20] vancomycin HCl in water 500 mg IV Q24H 38 Days #114 vial 11/06/20 [Rx Last Taken Unknown] furosemide 40 mg PO DAILY #30 tab 11/07/20 [Rx Last Taken Unknown] lisinopril 30 mg PO DAILY #30 tab 11/07/20 [Rx Last Taken Unknown] clindamycin HCl 300 mg PO BID #14 cap 05/23/21 [Rx Last Taken Unknown] Allergy/AdvReac Type Severity Reaction Status Date / Time adhesive Allergy Unknown Verified 05/23/21 14:52 bacitracin zinc Allergy Rash Verified 05/23/21 14:52 [From Neosporin ([id number])] metronidazole Allergy ALLERGY Verified 05/23/21 14:52 neomycin sulfate Allergy Rash Verified 05/23/21 14:52 [From Neosporin ([id number])] polymyxin B Allergy Rash Verified 05/23/21 14:52 [From Neosporin ([id number])] prednisolone acetate, Allergy ALLERGY Verified 05/23/21 14:52 micronized simvastatin Allergy ALLERGY Verified 05/23/21 14:52 tramadol [From Ultram] Allergy ALLERGY Verified 05/23/21 14:52 amoxicillin [From Augmentin] AdvReac Nausea/Vom/ Verified 05/23/21 14:52 Diarrhea atorvastatin calcium AdvReac Pain in Verified 05/23/21 14:52 [From Lipitor] joints clavulanic acid AdvReac Nausea/Vom/ Verified 05/23/21 14:52 [From Augmentin] Diarrhea fenofibrate nanocrystallized AdvReac Upset Verified 05/23/21 14:52 [From Tricor] Stomach flurbiprofen AdvReac Upset Verified 05/23/21 14:52 Stomach gemfibrozil AdvReac Upset Verified 05/23/21 14:52 Stomach glipizide [From Glucotrol] AdvReac Upset Verified 05/23/21 14:52 Stomach pravastatin AdvReac Pain in Verified 05/23/21 14:52 joints Family History Mother Diabetes Father Hypertension CVA (cerebral vascular accident) Brother Lung cancer Sister Breast cancer COPD (chronic obstructive pulmonary disease) Surgical History History of cholecystectomy History of heart bypass surgery History of knee replacement Social History household members: family housing: house Smoking Status: Never smoker alcohol intake: current alcohol intake frequency: other substance use type: does not use additional social history: USES ASPIRIN ROS ROS ED Constitutional Constitutional ED: Denies chills, fever(s) or sweats Eyes Eyes: Denies change in vision ENT ENT ED: Denies dysphagia or sore throat Cardiovascular Cardiovascular: Denies chest pain, leg edema, palpitations or racing heartbeat Respiratory/Chest Respiratory/Chest: Denies cough, dyspnea or dyspnea on exertion Gastrointestinal Gastrointestinal: Denies abdominal pain, diarrhea, nausea or vomiting Genitourinary Genitourinary ED: Reports other Details: Concerns for stools from vagina ; Denies dysuria, hematuria or urinary frequency Musculoskeletal Musculoskeletal: Denies back pain, extremity pain or neck pain Integumentary Denies rash or wounds Neurologic Neurologic: Denies headache(s), paresthesias or weakness EXAM Physical Exam Const Vital Signs: 05/23/21 14:51 Temperature 98.7 F Temperature Source Temporal Pulse Rate 59 L Respiratory Rate 18 Blood Pressure 141/77 H Blood Pressure Mean 98 Pulse Ox 98 Oxygen Delivery Method Room Air Positive well nourished and well developed General Appearance ED: well developed and NAD HEENT Reports moist mucous membranes normocephalic and atraumatic Eyes PERRL, EOMs intact bilaterally and conjunctivae normal General Eye ED: Yes normal appearance of both eyes Neck no lymphadenopathy and supple General: Negative for tenderness Chest Wall Chest: Negative for tenderness Resp normal respiratory effort and normal air movement Effort and Inspection: symmetric chest movement; Negative for respiratory distress Cardio regular rate, regular rhythm and no murmurs Peripheral Pulses: pulses 2+ throughout GI normal to inspection, nondistended, normoactive bowel sounds and non-tender Palpation: Negative for guarding or rebound tenderness present Narrative: Nursing present for assistance. There was milky discharge external vaginal, speculum examination continued milky discharge intravaginally up in the region of her cervix which has been removed. I did not appreciate any stools. Cultures were obtained from a wound standpoint additional GC chlamydia obtained and sent. Back/Spine no CVA tenderness and no thoracic nor lumbar tenderness Extremity normal to inspection General Extremety ED: Negative for edema or tenderness General Extremity: Negative for edema Neuro oriented x3 and no sensory deficits noted Sensorium / Orientation: awake and alert Skin no rashes or lesions noted and no wounds MDM MDM MDM Narrative Medical decision making narrative: Initial history had concerns for possible colovaginal fistula reporting stool concerns. However speculum examination notes milky discharge which is similar color to her pad that she brought in. There was no wet prep available to send out however I did send out for STD screening along with a wound culture in the region due to milky discharge for further evaluation. Clinically more concerns for bacterial vaginosis. Patient states she is not sexually active. With new discharge and drainage will give follow-up with gynecology. She is allergic to Flagyl therefore clindamycin was started for 7 days. Follow-up was given. All questions answered. Discharge Plan Triage Chief Complaint: General Illness ED Provider: Luis Lazo Dx/Rx/DC Orders Clinical Impression: Discharge from the vagina, Bacterial vaginosis Instructions: Bacterial Vaginosis Prescriptions: New clindamycin HCl 300 mg capsule 300 mg PO BID Qty: 14 RF: 0 No Action metformin 500 MG tablet 500 mg PO TIDCM RF: 0 glyburide 5 MG tablet 5 mg PO DAILY@0800 RF: 0 multivitamin 1 EACH tablet 1 ea PO DAILY@1200 RF: 0 cyanocobalamin (vitamin B-12) 1,000 MCG tablet 1,000 mcg PO DAILY@1200 RF: 0 ascorbic acid (vitamin C) 500 MG tablet 500 mg PO DAILY@1200 RF: 0 atenolol 50 MG tablet 50 mg PO BID RF: 0 cholecalciferol (vitamin D3) 1,000 UNIT capsule 1,000 unit PO DAILY@1200 RF: 0 omega-3 fatty acids-fish oil 1 EACH capsule,delayed release(DR/EC) 1 cap PO BID RF: 0 aspirin 81 MG tablet,chewable 81 mg PO DAILY RF: 0 magnesium oxide 400 MG tablet 400 mg PO DAILY@1200 RF: 0 amlodipine 10 MG tablet 10 mg PO DAILY RF: 0 vancomycin HCl in water 100 mg/mL solution 500 mg IV Q24H 38 Days Qty: 114 RF: 0 furosemide 40 mg Tablet 40 mg PO DAILY Qty: 30 RF: 0 lisinopril 10 mg Tablet 30 mg PO DAILY Qty: 30 RF: 0 Primary Care Provider: Kelsy Mensah Referrals: Kelsy Mensah MD [Primary Care Provider] - Tiffanie Humphries MD [STAFF PHYSICIAN] - 3-5 Days Activity Restrictions/Additional Instructions: No stool was found in your vaginal canal for concerns of fistula at this time. Copious milky discharge noted. Wound culture, female screening sent. No wet prep available in the ED for testing however clinical concerns for bacterial vaginosis. Take the antibiotic as prescribed. Follow-up with gynecology. Disposition Disposition: Home, Self Care Discharge Date/Time: 05/23/21 16:04
[2021-05-23] MEDS: Clindamycin HCl 150 MG Capsule 300 MG PO (16:01)
== END 2021-05-23 16:04 | disposition home or self-care (01) ==
PROVIDERS: Emergency Provider Emergency Medicine; PCP Internal Medicine; Visit Provider Emergency Medicine
DX: N76.0 Acute vaginitis (principal); E11.51 Type 2 diabetes mellitus with diabetic peripheral angiopathy without gangrene; E11.22 Type 2 diabetes mellitus with diabetic chronic kidney disease; E11.36 Type 2 diabetes mellitus with diabetic cataract; E11.42 Type 2 diabetes mellitus with diabetic polyneuropathy; N89.8 Other specified noninflammatory disorders of vagina; Z87.19 Personal history of other diseases of the digestive system; M19.90 Unspecified osteoarthritis, unspecified site; N18.9 Chronic kidney disease, unspecified; Z87.442 Personal history of urinary calculi; Z79.82 Long term (current) use of aspirin; Z79.84 Long term (current) use of oral hypoglycemic drugs; Z79.899 Other long term (current) drug therapy; Z90.49 Acquired absence of other specified parts of digestive tract; Z11.3 Encounter for screening for infections with a predominantly sexual mode of transmission
CPT/HCPCS: 87070; 87205; 87491; 99282

== ENCOUNTER 2021-05-30 08:00 | Outpatient (RCR) | payer OTHER, SELFPAY ==
[2021-05-22 00:29] VITALS: BP 132/48; PULSE 61; RESP 18; TEMP 35.8; BMI 24.9
[2021-05-30 08:06] VITALS: BP 140/47; PULSE 62; RESP 20; TEMP 35.9; BMI 24.9
--- NOTE | 2021-05-30 08:25 | PCM.WC.PN ---
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 She changes the surgical site with gauze, and the open ulcer site with hydrogel as advised. She already had vascular intervention and protestant by Dr. Wilson; additional intervention is not planned. She denies odor or redness. She is difficulty coming to the wound center every 1 to 2 weeks and request longer follow-up. This is very taxing for her and contributes to excessive fatigue. She denies fever, chill, nausea, vomiting. She has history of bilateral partial foot amputations. Her family member reports there have been no drainage for over a week. Progress of Wound: healed Objective Data Objective Data Vital Signs: Vital Signs Temp Pulse Resp BP 96.6 F L 62 20 H 140/47 H 05/30/21 08:06 05/30/21 08:06 05/30/21 08:06 05/30/21 08:06 Weight: 65.771 kg Body Mass Index (BMI) 24.9 Physical Exam Extremity Extremity Narrative: No calf tenderness Diminished pulses Muscle wasting noted Skin Skin Narrative: no purulence, no streaking, no odor, no infection. healed lateral ankle with full epithelialization Neuro Neuro Narrative: lack of normal epicritic sensation via light touch is consistent with neuropathy status Debridement Note Debridement Note Post-Debridement Measurements and Additional Note: Post-Debridement Measurements/Treatment - Nurse 1 - General Ulcer Assessment Start: 05/30/21 08:05 Freq: Status: Active Protocol: MISSY Activity Type Activity Date Activity User E-Sign Co-Sign Detail Recorded Client Recorded Date Recorded By Document 05/30/21 08:06 [email or web address] [id number] 05/30/21 08:12 DL 05/30/21 08:06 - Today's Visit Information Type of service Follow-up Visit (Physician/FANS CLERK ) Arrival Mode Ambulatory Transfer Assistance None Patient Identification Verified (Name & Yes ) Patient Requires Transmission-Based No Precautions Height and Weight Body Mass Index (BMI) 24.9 BMI Classification Normal Vital Signs Temperature (97.8 F-99.1 F) 96.6 F L Temperature Source Temporal Pulse Rate (60-100) 62 Respiratory Rate (12-18) 20 H Respiratory rate source Observation Blood Pressure (90/60-120/80) 140/47 H Blood Pressure Mean (mm Hg) 78 Source Monitor History Since Last Visit- (Skip if this is Patient's initial visit) Have you changed medications since your No last visit? Any new allergies or adverse reactions No Had a fall/change in ADL's that may No increase risk of falls Signs or symptoms of abuse and/or No neglect since last visit Have you been in the hospital since your No last visit? Has dressing in place as prescribed Yes Has compression in place as prescribed Yes Has offloadiing in place as prescribed Yes Experienced any changes in pain level or No management Right Footwear Surgical Shoe with pressure relief insole Pain Scale: 0-10 Numeric Is Patient Pain Free? Yes WC - Nurse 1 - General Ulcer Measurement Start: 05/30/21 08:05 Freq: Status: Active Protocol: Activity Type Activity Date Activity User E-Sign Co-Sign Detail Recorded Client Recorded Date Recorded By Document 05/30/21 08:06 DL [id number] 05/30/21 08:12 DL 05/30/21 08:06 Wound Center Nurse 1 #2- R LAT ANKLE -Current Size (cm) - Length 0.1 -Current Size (cm) - Width 0.1 -Current Size (cm) - Depth 0.1 -Total Square Cm 0.01 -Photo Taken Yes -Exudate Amt None Present -Wound Margin Flat & Intact -Granulation Amt Large (67-100%) -Granulation Quality [employer] -Necrosis Amt None Present (0 %) -Structure Exposed N/A -Texture (Shakira-wound Skin Appearance) Localized Edema ,Scarring -Moisture (Shakira-wound Skin Appearance) Dry/Scaly -Color (Shakira-wound Skin Appearance) No Abnormality -Temperature (Shakira-wound Skin No Abnormality Appearance) (Pt Warm) -Tenderness on Palpation (Shakira-wound No Skin Appearance) -Ulcer Cleansing Soap and Water -Foul Odor after Cleansing No -Anesthetic Used 4% Lidocaine Solution IRLANDA - Nurse 2 - General Ulcer CM Notes Start: 05/30/21 08:05 Freq: Status: Active Protocol: Activity Type Activity Date Activity User E-Sign Co-Sign Detail Recorded Client Recorded Date Recorded By Document 05/30/21 08:23 KYRA [id number] 05/30/21 08:24 05/30/21 08:23 Wound Center Nurse 2 -Correct Patient No -Correct Side, Site, Position No -Correct Procedure No -Procedure Performed No -Post Debridement (cm) - Length 0 -Post Debridement (cm) - Width 0 -Post Debridement (cm) - Depth 0 -Total Square (Post) (cm) 0 -Area of Debridement (cm) - Length 0 -Area of Debridement (cm) - Width 0 -Total Square (Area) (cm) 0 -Wound/Ulcer Outcome Healed- Epithelialized Pain Scale: 0-10 Numeric Is Patient Pain Free? Yes - Nurse 3 - General Ulcer D/C NN Start: 05/30/21 08:05 Freq: Status: Active Protocol: Activity Type Activity Date Activity User E-Sign Co-Sign Detail Recorded Client Recorded Date Recorded By Document 05/30/21 08:24 [id number] 05/30/21 08:25 05/30/21 08:24 Is Patient Pain Free? Yes - Visit Discharge Discharge Condition Stable Ambulatory Status Ambulatory,Cane Transportation Private Auto Accompanied by daughter Medication Reconcilliation completed & No provided to patient/care provider Clinical Summary of Care Provided Yes Notes: Applied dry gauze to healed area and an colten wrap. Assessment/Plan Assessment/Plan (1) Other specified peripheral vascular diseases: CODE(S): I73.89 - Other specified peripheral vascular diseases (2) Type 2 diabetes mellitus with diabetic polyneuropathy: CODE(S): E11.42 - Type 2 diabetes mellitus with diabetic polyneuropathy QUALIFIERS: Diabetes mellitus prison insulin use: unspecified prison insulin use status Qualified Code(s): E11.42 - Type 2 diabetes mellitus with diabetic polyneuropathy (3) Delayed wound healing: CODE(S): T14.8XXD - Other injury of unspecified body region, subsequent encounter (4) Unspecified protein-calorie malnutrition: CODE(S): E46 - Unspecified protein-calorie malnutrition QUALIFIERS: Protein-calorie malnutrition severity: unspecified severity Qualified Code(s): E46 - Unspecified protein-calorie malnutrition (5) Rheumatoid arthritis: CODE(S): M06.9 - Rheumatoid arthritis, unspecified (6) Chronic ulcer of right leg with fat layer exposed: CODE(S): L97.912 - Non-pressure chronic ulcer of unspecified part of right lower leg with fat layer exposed PLAN: Patient seen and evaluated with daughter present. the ulcer is healed I reviewed and discussed her case today. Dressing: Dry gauze for additional week. If there is still no drainage it is okay to discontinue all dressings because the site is healed. Wash: Soap and water before each dressing change Offload: To continue with offloading surgical shoe. To transition back to athletic sneakers longer this does not apply direct pressure to the recently healed wound that there are residual skin is still remodeling. Vascular: She has impaired vascular status and had vascular surgery intervention on 10-05-[address] Wilson as the following: Abdominal right lower extremity arteriogram with right anterior tibial balloon angioplasty with improved perfusion. To follow-up as scheduled. Edema: It is okay to wear an Colten wrap and intermittently elevate Infection: not present Pain: This is controlled today. d/c from wound center at this time. I answered all the patient's questions. To lotion lower extremities to maintain good skin integrity. 20 minutes was spent on this encounter. This included face to face and non face to face care including preparing for the visit, reviewing the history, performing the exam, counseling and providing education to the patient, family, or caregiver, ordering medications/test/ procedures if indicated as documented, communicating with other healthcare providers, documenting information in the medical record, interpreting / sharing this information when indicated as documented, and care coordination. Note: [employer] speech recognition book store associate software was used to create portions of this document. Sound-alike and misspelled words, as well as other book store associate errors may be contained in the documentation.
== END 2021-06-04 08:57 | disposition home or self-care (01) ==
LOC: WC 08:00
PROVIDERS: PCP Internal Medicine; Visit Provider Podiatrist
DX: Z09 Encounter for follow-up examination after completed treatment for conditions other than malignant neoplasm (principal); E11.51 Type 2 diabetes mellitus with diabetic peripheral angiopathy without gangrene; M06.9 Rheumatoid arthritis, unspecified; E11.42 Type 2 diabetes mellitus with diabetic polyneuropathy; Z79.82 Long term (current) use of aspirin; Z79.84 Long term (current) use of oral hypoglycemic drugs; Z79.899 Other long term (current) drug therapy
CPT/HCPCS: 99212; G0463

== ENCOUNTER 2021-05-30 10:25 | Outpatient (CLI) | payer SELFPAY, OTHER ==
--- NOTE | 2021-05-30 10:33 | CT_ITS ---
STUDY: CT ABDOMEN AND PELVIS WITH CONTRAST REASON FOR EXAM: Female, 80 years old. RUPTURED DIVERTICULAR ABSCESS. Brown discharge from the vagina. RADIATION DOSAGE (If Supplied By Facility): CTDIvol = ( 18.99 ) mGy, DLP = ( 1580.69 ) mGycm TECHNIQUE: Transaxial images were obtained from the dome of the diaphragm to the symphysis pubis with oral contrast. Oral and amp; IV Gastrografin and amp; 100mL Isovue-300 was administered. Sagittal and coronal images were reconstructed. Individualized dose optimization techniques were used for this CT. COMPARISON: Comparison is made with prior study dated 12/05/2017. FINDINGS: The visualized lung bases are unremarkable. Coronary artery calcification. There is decreased attenuation of the liver consistent with steatosis. The patient is status post cholecystectomy. Normal spleen. Normal pancreas. Normal bilateral adrenal glands. Normal right kidney. There is severe cortical atrophy of the left kidney, consistent with chronic medical renal disease. Multiple small left renal cysts. Normal visualized stomach. Normal small intestine. There is diverticulosis, with thickening of the colon wall, and pericolonic inflammation changes consistent with acute diverticulitis. A large amount of fecal material is seen in the colon. There are surgical clips in the region of the appendix consistent with a prior appendectomy. There is diffuse atherosclerotic calcification of the abdominal aorta and its major visceral branches, without a demonstrated aneurysm. Normal inferior vena cava. Normal retroperitoneum. An air-fluid level is seen within the urinary bladder. This is suggestive of a colovesical fistula. There is absence of the uterus consistent with a prior hysterectomy. Normal abdominal wall. There are diffuse degenerative changes of the visualized lumbar spine. Grade 1 anterior listhesis of L4 on L5 without spondylolysis. CT/Abdomen/Pelvis WITH Contrast IMPRESSION: Mild degree of sigmoid diverticulitis. No evidence of pericolonic abscess. Air fluid level in the urinary bladder. Colovesical fistula should be ruled out. Electronically Signed: Cuco Manuel MD at 13:06 EST ,
[2021-05-30 12:31] LABS: CREATININE FINGERSTICK 1.4 mg/dL (0.55-1.02)
[2021-05-30 13:00] LABS: Hemoglobin 13.2 g/dL (12.0-15.0); Mean Corp Hgb Conc 34.7 g/dL (32-36); Mean Corpuscular Hgb 30.2 pg (27.0-32.0); Mean Platelet Vol. 9.9 fl (6.2-12.0); Platelet Count 316 K/mm3 (150-450); RBC Distribution Width SD 47.7 fl (35.1-43.9); Red Blood Count 4.37 M/mm3 (4.2-5.4); White Blood Count 17.1 K/mm3 (4.4-11.0)
[2021-05-30 13:13] LABS: Anion Gap 8 (5-15); BUN 30 mg/dL (7-18); BUN/Creat Ratio 22.6 RATIO (10-20); Calcium,Total 9.7 mg/dL (8.5-10.1); Chloride 98 mmol/L (98-107); Creatinine, Serum 1.33 mg/dL (0.55-1.02); EST Glomerular Filtration Rate 41 mL/min (>60); Est Glom Filt Rate - Afr Amer 49 mL/min (>60); Glucose 144 mg/dL (74-106); Sodium Level 131 mmol/L (136-145)
== END 2021-05-30 23:59 | disposition home or self-care (01) ==
PROVIDERS: PCP Internal Medicine; Visit Provider Obstetrics & Gynecology
DX: K57.80 Diverticulitis of intestine, part unspecified, with perforation and abscess without bleeding (principal)
CPT/HCPCS: 36415; 74177; 80048; 85027; Q9967

== ENCOUNTER 2021-05-31 10:34 | Outpatient (CLI) | payer SELFPAY, OTHER ==
[2021-05-31 11:44] LABS: Mucous, Urine 0 SEEN /hpf (<or=2+); Red Blood Cells-Urine 0 SEEN /hpf (0-5)
[2021-05-31 11:49] LABS: Color, Urine Yellow (Yellow); Glucose, Dipstick Normal (Normal); Ketone-Dipstick Negative (Negative); Leukocyte Esterase-Dipstick 100 /ul (Negative); Nitrite-Dipstick Positive (Negative); Occult Blood-Urine 10 /ul (Negative); Protein-Dipstick 15 mg/dl (Negative); Urine Bilirubin Dipstick Negative (Negative); Urine Clarity Clear (Clear); Urine Urobilinogen Normal (Normal)
[2021-05-31 11:57] LABS: Bacteria 3+ /hpf (None Seen); Squamous Epithelial Cells - UA 0-5 SEEN /hpf (5-10); White Blood Cells 10-25 SEEN /hpf (0-5)
--- NOTE | 2021-05-31 12:26 | VDLE_ITS ---
Reason For Study: Pain RIGHT LEFT GSV is normal. GSV is normal. CFV is compressible, spontaneous, phasic, CFV is compressible, spontaneous, phasic, competent and demonstrates normal competent, and demonstrates normal augmentation. augmentation. FV is compressible, spontaneous, phasic, FV is compressible, spontaneous, phasic, competent and demonstrates normal competent and demonstrates normal augmentation. augmentation. POP V is compressible, spontaneous, phasic, POP V is compressible, spontaneous, phasic, competent and demonstrates normal competent and demonstrates normal augmentation. augmentation. T/P Trunk is compressible. T/P Trunk is compressible. PTV is compressible. PTV is compressible. RT PerV is compressible. LT PerV is compressible. Procedure This is a venous duplex using B-mode, color flow and spectral Doppler. Exam performed in department. A preliminary report was called and/or faxed to [facility]. VL/Venous Duplex US - Jb Extrem Interpretation Summary No evidence for acute deep venous thrombosis bilateral lower extremities Surgically harvested bilateral great saphenous veins Ordering Physician: Cristina Puri Referring Physician: Kelsy Mensah Performed By: Bridgett Nguyen RVT
== END 2021-05-31 23:59 | disposition home or self-care (01) ==
PROVIDERS: PCP Internal Medicine; Referring Provider Physician Assistant; Visit Provider Physician Assistant
DX: M79.604 Pain in right leg (principal); N32.1 Vesicointestinal fistula; R10.9 Unspecified abdominal pain; M79.605 Pain in left leg; R30.0 Dysuria
CPT/HCPCS: 81001; 93970; J7120

== ENCOUNTER 2021-06-01 07:25 | Emergency (ER) | payer OTHER, SELFPAY ==
[2021-06-01 07:26] VITALS: BP 135/116; PULSE 58; RESP 16; TEMP 35.8; O2SAT 97; BMI 25.7
--- NOTE | 2021-06-01 08:01 | RAD_ITS ---
STUDY: X-RAY - ABDOMEN/PELVIS REASON FOR EXAM: Female, 80 years old. Constipation ??? TECHNIQUE: Single AP view of the abdomen / pelvis. COMPARISON: None. FINDINGS: Normal visualized lung bases. There is an abundance of fecal material throughout the colon. The visualized liver, spleen and kidneys are grossly normal in size and morphology. Normal soft tissue structures. There are diffuse degenerative changes of the visualized lumbar spine. RAD/Abdomen Single View IMPRESSION: Large amount of fecal material is seen in the colon. Electronically Signed: Cuco Manuel MD at 9:25 EST ,
--- NOTE | 2021-06-01 08:02 | ED.VIS.GI ---
HPI HPI - GI History of Present Illness Chief Complaint: Nausea/Vomiting Informant: patient and friend Abdominal Pain/Flank Pain Onset: Today Nausea/Vomiting/Emesis GI Symptom: Positive for Nausea and Vomiting Diarrhea/Melena/Hematochezia GI Symptom: Negative for Diarrhea, Melena and Hematochezia Associated Symptoms Associated Symptoms: Negative for Dysuria, Frequency, Hematuria and Urgency Narrative Narrative: 80-year-old female started a bowel prep yesterday for colonoscopy today. She is being worked up for possible colovesical fistula. With the bowel prep she was not having much bowel movement. Today started having nausea and vomiting. She did recently have a CAT scan and after the CAT scan and drinking oral contrast she had a significant bowel movement on Friday or . She denies any fever or abdominal pain. States her nausea is resolving. Prior similar symptoms: No Recent Illness/Hospitalization: No PFSH PFS Medical History (Updated 06/01/21 @ 09:[address] Tha Lock MD) Abdominal pain Arthritis Back pain Bilateral leg pain Breast lump in female Cardiology follow-up encounter Cataracts, bilateral CKD (chronic kidney disease) Colovesical fistula Controlled type 2 diabetes mellitus with hyperglycemia Delayed wound healing Diabetes Dietary restriction Diverticulosis Heart failure High blood pressure High cholesterol History of diverticulitis History of echocardiogram History of edema History of heart attack Kidney stones Loss of hearing Non-smoker Open wound Osteoarthritis Peripheral arterial disease Rheumatoid arthritis Shortness of breath on exertion Type 2 diabetes mellitus with diabetic polyneuropathy Ulcer of right foot with necrosis of bone Ulcer of right lower extremity with muscle involvement without evidence of necrosis Unspecified protein-calorie malnutrition Wears glasses Home Medications glyburide 5 mg PO DAILY@0800 08/26/15 [History Last Taken 11/01/20] metformin 500 mg PO TIDCM 08/26/15 [History Last Taken 11/01/20] ascorbic acid (vitamin C) 500 mg PO DAILY@1200 12/09/16 [History Last Taken 11/01/20] atenolol 50 mg PO BID 12/09/16 [History Last Taken 11/01/20] cholecalciferol (vitamin D3) 1,000 unit PO DAILY@1200 12/09/16 [History Last Taken 11/01/20] cyanocobalamin (vitamin B-12) 1,000 mcg PO DAILY@1200 12/09/16 [History Last Taken 11/01/20] multivitamin 1 ea PO DAILY@1200 12/09/16 [History Last Taken 11/01/20] omega-3 fatty acids-fish oil 1 cap PO BID 12/09/16 [History Last Taken 05/31/21] aspirin 81 mg PO DAILY 06/11/17 [History Last Taken 05/31/21] magnesium oxide 400 mg PO DAILY@1200 03/01/20 [History Last Taken 11/01/20] amlodipine 10 mg PO DAILY 09/29/20 [History Last Taken 11/01/20] clindamycin HCl 300 mg capsule 300 mg PO TID 2 Days #6 cap 05/31/21 [Rx Last Taken Unknown] furosemide 40 mg PO DAILY 05/31/21 [History Last Taken Unknown] lisinopril 30 mg PO DAILY 05/31/21 [History Last Taken Unknown] Allergy/AdvReac Type Severity Reaction Status Date / Time adhesive Allergy Unknown Verified 06/01/21 07:28 bacitracin zinc Allergy Rash Verified 06/01/21 07:28 [From Neosporin ([id number])] metronidazole Allergy ALLERGY Verified 06/01/21 07:28 neomycin sulfate Allergy Rash Verified 06/01/21 07:28 [From Neosporin ([id number])] polymyxin B Allergy Rash Verified 06/01/21 07:28 [From Neosporin ([id number])] prednisolone acetate, Allergy ALLERGY Verified 06/01/21 07:28 micronized simvastatin Allergy ALLERGY Verified 06/01/21 07:28 tramadol [From Ultram] Allergy ALLERGY Verified 06/01/21 07:28 amoxicillin [From Augmentin] AdvReac Nausea/Vom/ Verified 06/01/21 07:28 Diarrhea atorvastatin calcium AdvReac Pain in Verified 06/01/21 07:28 [From Lipitor] joints clavulanic acid AdvReac Nausea/Vom/ Verified 06/01/21 07:28 [From Augmentin] Diarrhea fenofibrate nanocrystallized AdvReac Upset Verified 06/01/21 07:28 [From Tricor] Stomach flurbiprofen AdvReac Upset Verified 06/01/21 07:28 Stomach gemfibrozil AdvReac Upset Verified 06/01/21 07:28 Stomach glipizide [From Glucotrol] AdvReac Upset Verified 06/01/21 07:28 Stomach pravastatin AdvReac Pain in Verified 06/01/21 07:28 joints Family History Mother Diabetes Father Hypertension CVA (cerebral vascular accident) Brother Lung cancer Sister Breast cancer COPD (chronic obstructive pulmonary disease) Surgical History History of appendectomy History of cholecystectomy History of heart bypass surgery History of knee replacement Hx of colonoscopy S/P hysterectomy Social History household members: family housing: house Smoking Status: Never smoker alcohol intake: current alcohol intake frequency: other substance use type: does not use additional social history: USES [employer]IR[employer] ROS ROS ED ROS Narrative Nausea and vomiting. Review of Systems ROS Unobtainable: Denies due to encephalopathy Constitutional Constitutional ED: Denies fever(s) ENT ENT ED: Denies ear pain Cardiovascular Cardiovascular: Denies chest pain Respiratory/Chest Respiratory/Chest: Denies cough or dyspnea Gastrointestinal Gastrointestinal: Reports nausea and vomiting; Denies abdominal pain or diarrhea Genitourinary Genitourinary ED: Denies dysuria Musculoskeletal Musculoskeletal: Denies myalgias Integumentary Denies rash Neurologic Neurologic: Denies headache(s) Psychiatric Psychiatric: Denies depression Endocrine Endocrinology: Denies polyuria Hematologic/Lymphatic Hematologic/Lymphatic: Denies easy bruising Allergic/Immunologic Allergic/Immunologic ED: Denies urticaria EXAM Physical Exam Narrative Exam Narrative: 80-year-old no acute distress vital signs are stable. Her initial blood pressure is elevated 135/116. That will be rechecked. H EENT exam unremarkable. Metric members. Lungs are clear. Heart regular rhythm rate about 60. Abdomen soft nondistended normal bowel sounds no peritoneal signs. No signs of obstruction. Patient moving all 4 extremities. Nontender. Neurologically she is awake and alert. Const Vital Signs: 06/01/21 07:26 06/01/21 08:57 Temperature 96.4 F L 98.7 F Temperature Source Temporal Temporal Pulse Rate 58 L 64 Respiratory Rate 16 20 H Blood Pressure 135/116 H 149/79 H Blood Pressure Mean 122 102 Pulse Ox 97 97 Oxygen Delivery Method Room Air Room Air Positive well nourished and well developed; Negative for obese, cachectic, contractures or unkempt General Appearance ED: well developed and NAD; Negative for unkempt, cachectic, contractures or pallor Nutritional Appearance: Negative for cachectic or obese HEENT Reports moist mucous membranes normocephalic and atraumatic; Negative for trauma Eyes PERRL and EOMs intact bilaterally Neck no lymphadenopathy, supple and no JVD General: Negative for tenderness Resp normal respiratory effort and clear to auscultation bilaterally Auscultation: Negative for rales, rhonchi or wheezes Cardio regular rate, regular rhythm, S1 normal heart sound, S2 normal heart sound and no murmurs GI non-tender, non-distended and no masses Auscultation: normoactive bowel sounds Palpation: soft; Negative for tender, guarding or rigid Back/Spine no CVA tenderness General Back: Negative for CVA tenderness Cervical Spine: Negative for cervical spine tenderness Thoracic Spine / Upper Back: Negative for thoracic spinal tenderness Extremity full ROM General Extremety ED: Negative for edema or tenderness General Extremity: Negative for edema Neuro moves all extremities Sensorium / Orientation: alert, oriented to person, oriented to place and oriented to time; Negative for orientation impaired, confused, lethargic or stuporous Motor Exam: strength 5/5 throughout Psych mental status grossly normal and thought process normal Appearance: Negative for unkempt Attitude: No agitated Mood & Affect: Negative for depressed or tearful Skin no wounds General Skin Exam: Negative for jaundice or pallor Lesions: no lesions Rashes: no rashes MDM MDM MDM Narrative Medical decision making narrative: 80-year-old with nausea and vomiting prepping for colonoscopy. Exam benign. Screening labs are being obtained. A KUB to see if there is much stool present in her bowel. Repeat Kenny patient is doing well at 9:30 AM. I discussed with her and her 2 female friends at bedside her test results. She will be taken down when time to have her schedule colonoscopy today. All discussed all test results with Dr. Wilson. She has had no recent fevers. And she has felt fine. Patient was on recent antibiotics for UTI. She will be sent down to colonoscopy at this time. They will most likely do enemas prior to the procedure to clean out the rectal stool. Lab Data Attestation: I reviewed the patient's lab results. Lab results narrative: CBC shows a 17.7 white count previously has been that high recently. H&H of 13 and 37. Electrolytes show sodium 133. Gap is 7. BUN 25 creatinine 1.26. Glucose 127. Liver enzymes unremarkable other than alk phos of 134. Abdominal film showed some stool in the rectum but otherwise was unremarkable. Labs: Laboratory Results - last 24 hr 06/01/21 06/01/21 08:42 08:42 WBC 17.7 H RBC 4.40 Hgb 13.3 Hct 37.1 MCV 84.3 MCH 30.2 MCHC 35.8 RDW Std Deviation 46.5 H RDW Coeff of Monique 15.2 H Plt Count 298 MPV 10.3 Immature Gran % (Auto) 1.000 H Neut % (Auto) 70.8 H Lymph % (Auto) 17.5 L [place] % (Auto) 9.9 Eos % (Auto) 0.3 Baso % (Auto) 0.5 Absolute Neuts (auto) 12.6 H Absolute Lymphs (auto) 3.10 Nucleated RBC % 0 Sodium 133 L Potassium 4.8 Chloride 102 Carbon Dioxide 24.0 Anion Gap 7 BUN 25 H Creatinine 1.26 H Estim Creat Clear Calc 30.75 Est GFR (MDRD) Af Amer 53 L Est GFR (MDRD) Non-Af 43 L BUN/Creatinine Ratio 19.8 Glucose 127 H Calcium 8.9 Total Bilirubin 1.00 AST 49 H ALT 31 Alkaline Phosphatase 134 H Total Protein 8.0 Albumin 3.2 Globulin 4.8 H Albumin/Globulin Ratio 0.7 L Radiography Diagnostic Testing: Clinical Impression(s) from Imaging Studies KUB X-Ray 06/01/21 08:01 IMPRESSION: Large amount of fecal material is seen in the colon. Electronically Signed: Cuco Manuel MD at 9:25 EST , KUB single view interpreted by myself shows rectal stool but otherwise unremarkable. Increased bowel gas in a transverse colon. Discharge Plan Triage Chief Complaint: Nausea/Vomiting ED Provider: Tha Lock Dx/Rx/DC Orders Clinical Impression: Leukocytosis, Constipation Instructions: ED Vomiting (Adult) Prescriptions: No Action clindamycin HCl 300 mg capsule 300 mg PO TID 2 Days Qty: 6 RF: 0 metformin 500 MG tablet 500 mg PO TIDCM RF: 0 glyburide 5 MG tablet 5 mg PO DAILY@0800 RF: 0 multivitamin 1 EACH tablet 1 ea PO DAILY@1200 RF: 0 cyanocobalamin (vitamin B-12) 1,000 MCG tablet 1,000 mcg PO DAILY@1200 RF: 0 ascorbic acid (vitamin C) 500 MG tablet 500 mg PO DAILY@1200 RF: 0 atenolol 50 MG tablet 50 mg PO BID RF: 0 cholecalciferol (vitamin D3) 1,000 UNIT capsule 1,000 unit PO DAILY@1200 RF: 0 omega-3 fatty acids-fish oil 1 EACH capsule,delayed release(DR/EC) 1 cap PO BID RF: 0 aspirin 81 MG tablet,chewable 81 mg PO DAILY RF: 0 magnesium oxide 400 MG tablet 400 mg PO DAILY@1200 RF: 0 amlodipine 10 MG tablet 10 mg PO DAILY RF: 0 furosemide 40 mg tablet 40 mg PO DAILY RF: 0 lisinopril 10 mg tablet 30 mg PO DAILY RF: 0 Primary Care Provider: Kelsy Mensah Referrals: Kelsy Mensah MD [Primary Care Provider] - Loki Wilson MD [STAFF PHYSICIAN] - [facility] appointment Disposition Disposition: Home, Self Care
[2021-06-01 08:57] VITALS: BP 149/79; PULSE 64; RESP 20; TEMP 37.1; O2SAT 97
[2021-06-01 09:03] LABS: Absolute Neutrophil Count 12.6 X10^3/uL (2.0-7.7); Basophil# 0.08 X10^3/uL; Basophil% 0.5 % (0-1); Eosinophil# 0.05 X10^3/uL; Eosinophils% 0.3 % (0-5); Hematocrit 37.1 % (37-47); Hemoglobin 13.3 g/dL (12.0-15.0); Lymphocyte % 17.5 % (19-41); Mean Corp Hgb Conc 35.8 g/dL (32-36); Mean Corpuscular Hgb 30.2 pg (27.0-32.0); Mean Corpuscular Volume 84.3 fL (81-99); Mean Platelet Vol. 10.3 fl (6.2-12.0); Monocyte# 1.75 X10^3/uL; Monocyte% 9.9 % (0-10); NRBC Flagged by Analyzer 0 % (0-5); Neutrophil # 12.58 X10^3/uL (2.7-7.7); Neutrophil % 70.8 % (47-70); POSITIVE DIFFERENTIAL YES; Platelet Count 298 K/mm3 (150-450); RBC Distribution Width CV 15.2 % (11.6-14.6); RBC Distribution Width SD 46.5 fl (35.1-43.9); White Blood Count 17.7 K/mm3 (4.4-11.0)
[2021-06-01 09:07] LABS: Differential Indicated SCAN CRITERIA MET
[2021-06-01 09:20] LABS: ALB/GLOB Ratio 0.7 RATIO (0.9-2.4); AST(SGOT) 49 U/L (15-37); Alanine Aminotransfer ALT/SGPT 31 U/L (13-56); Albumin, Serum 3.2 g/dL (3.2-5.0); Alkaline Phosphatase 134 U/L (45-117); Anion Gap 7 (5-15); BUN 25 mg/dL (7-18); BUN/Creat Ratio 19.8 RATIO (10-20); Calcium,Total 8.9 mg/dL (8.5-10.1); Chloride 102 mmol/L (98-107); Creatinine, Serum 1.26 mg/dL (0.55-1.02); EST Glomerular Filtration Rate 43 mL/min (>60); Est Glom Filt Rate - Afr Amer 53 mL/min (>60); Estimated Creatinine Clearance 30.75 ml/min; Globulin 4.8 g/dL (2.2-4.2); Glucose 127 mg/dL (74-106); Potassium 4.8 mmol/L (3.5-5.1); Sodium Level 133 mmol/L (136-145)
[2021-06-01 09:41] VITALS: BP 128/90; PULSE 58; RESP 18; O2SAT 97
--- NOTE | 2021-06-01 10:03 | ED.RN ---
PER DR DOLAN, NO ENEMA TO BE GIVEN IN THE ED. 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
[2021-06-04 12:42] LABS: Pathologist Review Reviewed
== END 2021-06-01 10:12 | disposition home or self-care (01) ==
PROVIDERS: Emergency Provider Emergency Medicine; PCP Internal Medicine; Visit Provider Emergency Medicine
DX: K59.00 Constipation, unspecified (principal); E11.51 Type 2 diabetes mellitus with diabetic peripheral angiopathy without gangrene; M06.9 Rheumatoid arthritis, unspecified; I50.9 Heart failure, unspecified; I13.0 Hypertensive heart and chronic kidney disease with heart failure and stage 1 through stage 4 chronic kidney disease, or unspecified chronic kidney disease; E11.42 Type 2 diabetes mellitus with diabetic polyneuropathy; E11.22 Type 2 diabetes mellitus with diabetic chronic kidney disease; E11.36 Type 2 diabetes mellitus with diabetic cataract; R11.2 Nausea with vomiting, unspecified; N18.9 Chronic kidney disease, unspecified; E78.00 Pure hypercholesterolemia, unspecified; H26.9 Unspecified cataract; I25.2 Old myocardial infarction; Z87.442 Personal history of urinary calculi; Z87.19 Personal history of other diseases of the digestive system; Z79.82 Long term (current) use of aspirin; Z79.899 Other long term (current) drug therapy; Z79.84 Long term (current) use of oral hypoglycemic drugs; Z87.440 Personal history of urinary (tract) infections
CPT/HCPCS: 99283; 74018; 80053; 85025; J7030; A4216

== ENCOUNTER 2021-06-01 10:25 | Day surgery (SDC) | payer SELFPAY, OTHER ==
[2021-05-31 16:43] LABS: Magnesium 2.1 mg/dL (1.6-2.6)
[2021-06-01] VITALS (7 sets, daily range): BP systolic 106–146; BP diastolic 39–54; PULSE 56–66; RESP 18; TEMP 36.2–36.7; O2SAT 92–100; BMI 25.7
--- NOTE | 2021-06-01 11:41 | HP.PCM_ITS ---
History and Physical Date of Admission: 06/01/21 Intake Visit Reasons: dfiscuss surgery, abn CT Chief Complaint: abn CT Manpower Development Specialist Required: No Is patient in pain?: Yes (low abdomen) Allergies adhesive Allergy (Verified 05/31/21 14:41) Unknown bacitracin zinc [From Neosporin ([id number])] Allergy (Verified 05/31/21 14:41) Rash metronidazole Allergy (Verified 05/31/21 14:41) ALLERGY neomycin sulfate [From Neosporin ([id number])] Allergy (Verified 05/31/21 14:41) Rash polymyxin B [From Neosporin ([id number])] Allergy (Verified 05/31/21 14:41) Rash prednisolone acetate, micronized Allergy (Verified 05/31/21 14:41) ALLERGY simvastatin Allergy (Verified 05/31/21 14:41) ALLERGY tramadol [From Ultram] Allergy (Verified 05/31/21 14:41) ALLERGY amoxicillin [From Augmentin] Adverse Reaction (Verified 05/31/21 14:41) Nausea/Vom/Diarrhea atorvastatin calcium [From Lipitor] Adverse Reaction (Verified 05/31/21 14:41) Pain in joints clavulanic acid [From Augmentin] Adverse Reaction (Verified 05/31/21 14:41) Nausea/Vom/Diarrhea fenofibrate nanocrystallized [From Tricor] Adverse Reaction (Verified 05/31/21 14:41) Upset Stomach flurbiprofen Adverse Reaction (Verified 05/31/21 14:41) Upset Stomach gemfibrozil Adverse Reaction (Verified 05/31/21 14:41) Upset Stomach glipizide [From Glucotrol] Adverse Reaction (Verified 05/31/21 14:41) Upset Stomach pravastatin Adverse Reaction (Verified 05/31/21 14:41) Pain in joints Medications glyburide 5 mg PO DAILY@0800 08/26/15 [History Confirmed 05/31/21] metformin 500 mg PO TIDCM 08/26/15 [History Confirmed 05/31/21] ascorbic acid (vitamin C) 500 mg PO DAILY@1200 12/09/16 [History Confirmed 05/31/21] atenolol 50 mg PO BID 12/09/16 [History Confirmed 05/31/21] cholecalciferol (vitamin D3) 1,000 unit PO DAILY@1200 09/18/17 [History Confirmed 05/31/21] cyanocobalamin (vitamin B-12) 1,000 mcg PO DAILY@1200 12/09/16 [History Confirmed 05/31/21] multivitamin 1 ea PO DAILY@1200 12/09/16 [History Confirmed 05/31/21] omega-3 fatty acids-fish oil 1 cap PO BID 12/09/16 [History Confirmed 05/31/21] aspirin 81 mg PO DAILY 06/11/17 [History Confirmed 05/31/21] magnesium oxide 400 mg PO DAILY@1200 03/01/20 [History Confirmed 05/31/21] amlodipine 10 mg PO DAILY 09/29/20 [History Confirmed 05/31/21] clindamycin HCl 300 mg capsule 300 mg PO TID 2 Days #6 cap 05/31/21 [Rx Confirmed 05/31/21] furosemide 40 mg PO DAILY 05/31/21 [History Confirmed 05/31/21] lisinopril 30 mg PO DAILY 05/31/21 [History Confirmed 05/31/21] [facility] Medical History (Updated 05/31/21 @ 15:43 by Cristina ECHEVERRIA, PA-C) Abdominal pain Arthritis Back pain Bilateral leg pain Breast lump in female Cardiology follow-up encounter Cataracts, bilateral CKD (chronic kidney disease) Colovesical fistula Controlled type 2 diabetes mellitus with hyperglycemia Delayed wound healing Diabetes Dietary restriction Diverticulosis Heart failure High blood pressure High cholesterol History of diverticulitis History of echocardiogram History of edema History of heart attack Kidney stones Loss of hearing Non-smoker Open wound Osteoarthritis Peripheral arterial disease Rheumatoid arthritis Shortness of breath on exertion Type 2 diabetes mellitus with diabetic polyneuropathy Ulcer of right foot with necrosis of bone Ulcer of right lower extremity with muscle involvement without evidence of necrosis Unspecified protein-calorie malnutrition Wears glasses Surgical History (Updated 05/31/21 @ 15:20 by Alexa Arita) History of cholecystectomy History of heart bypass surgery History of knee replacement Hx of colonoscopy S/P hysterectomy Family History Mother Diabetes Father Hypertension CVA (cerebral vascular accident) Brother Lung cancer Sister Breast cancer COPD (chronic obstructive pulmonary disease) Social History household members: family housing: house Smoking Status: Never smoker alcohol intake: current alcohol intake frequency: other substance use type: does not use additional social history: USES ASPIRIN HPI HPI HPI: DARREN SANDOVAL, is a 80 F who presents to the office today for abnormal CT scan and vaginal discharge. Patient stated she was treated 3 weeks ago for a urinary tract infection. She was placed on antibiotics by her PCP. She completed those and continued to have symptoms with urination. She was placed on an additional week of antibiotics after being evaluated by [facility] urgent care for continued UTI. After 2 weeks of antibiotics, patient had a bowel movement and noticed what appeared to be stool seepage from her vagina. She presented to the ED on 05/23 due to the vaginal discharged. She had a culture completed and was treated for bacterial vaginosis as the drainage appeared more milky in character. She was placed on 1 weeks worth of clindamycin and recommended to follow-up with her SYSTEMS MANAGEMENT CONSULTANT. I received a phone call yesterday from Dr. Humphries, SYSTEMS MANAGEMENT CONSULTANT, who noted purulent fluid within the vagina during speculum evaluation. She suspected a perforated diverticulum. CT scan of the abdomen/pelvis was ordered an demonstrated mild degree of sigmoid diverticulitis. No evidence of abscess. Air fluid level in the urinary bladder. Colovesical fistula should be ruled out. Patient notes having lower abdominal cramping discomfort. No severe amount of pain. She denies fever, nausea, vomiting. She notes her appetite has been normal. She notes having normal bowel movements for her, which is fluctuating between constipation and soft stools. She notes approximately an unintentional 15 pound weight loss over the last 2 years. She denies having any flatus through her vagina prior to 1 week ago. She notes previous open cholecystectomy, total hysterectomy in regards to abdominal surgeries. She states she has been hospital once for diverticulitis approximately 5 years ago. She notes her last colonoscopy was approximately [address] Wilson at [facility] surgery center. She notes cardiac bypass x 4 vessels approximately 5 years ago. She notes history of CHF. She denies being hospitalized with CHF previously. She is currently on aspirin. She denies having a pacemaker/defibrillator. She is a non-insulin dependent diabetic. She is maintained on Metformin and Glyburide. She denies pulmonary disease. Patient's WBC is 17.1 from 05/30/21. Patient was recently discharged from the wound center following a right hallux amputation. Patient has had previous lower extremity arterial intervention and carotid endarterectomy, left side by Dr. Wilson. ROS General General: Yes fatigue; No weight change, appetite, colon cancer, breast cancer or weakness HEENT HEENT: No difficulty swallowing, eye injury, eye surgery, swollen glands or hoarseness Endo Endocrine: Yes diabetes mellitus; No thyroid disease, thyroid cancer, Hair loss, heat intolerance or cold intolerance Skin Skin: No rash or changing moles Breast Breast: No left breast lump, right breast lump, nipple discharge, breast pain, abnormal mammogram, abnormal US or breast enlargement Musc Musculoskeletal: Yes arthritis and rheumatoid arthritis; No back problems, gout or joint pain Cardio Cardiovascular: Yes high blood pressure, heart attack and heart stent; No murmur, pacemaker, heart disease, atrial fibrillation, palpitations, shortness of breat with exertion or chest pain Psych Psychiatric: No depression, anxiety or hearing voices Resp Respiratory: Yes shortness of breath, No sleep apnea, No cough, No COPD, No asthma, No emphysema and No wheezing Gastro Gastrointestinal: No abdominal pain, No nausea or vomiting, No diarrhea, No constipation, No blood in stool, No acid reflux, No hemorrhoids, No ulcers, No gallbladder problem and No black,tarry stools Jabier Hematologic: No blood thinners, No blood disorders, No bleeding, No anemia and No blood clots Neuro Neurologic: No system reviewed and no additional complaints, except as documented, No as per HPI, No abnormal gait, No abnormal hearing, No abnormal movements, No abnormal speech, No behavioral changes, No burning sensations, No confusion, No convulsions, No disequilibrium, No dizziness, No localized weakness, No frequent falls, No headache(s), No lack of coordination, No loss of vision, No memory loss, No numbness, No other visual disturbances, No radicular pain, No restless legs, No sensory deficit, No syncope, No tingling, No tremor(s), No weakness and No other Exam Const General: cooperative, healthy appearing, comfortable and no acute distress [facility] Head: normal to inspection Eyes General: appearance normal, both eyes and all related structures Neck Neck: normal visual inspection Neck mass: No Resp Effort & Inspection: normal respiratory effort Auscultation: clear to auscultation bilaterally Cardio Rate: regular rate Rhythm: regular rhythm GI Inspection: scar (nicely healed incision in the RUQ) Palpation: soft, hernia umbilical (easily reducible ) and mass (palpable in the LLQ) Auscultation: normal bowel sounds Musc Cervical Spine: normal cervical lordosis Skin General: no rashes or lesions noted Neuro General: no focal motor deficits and CN's II-XI intact bilaterally Extrem Other: NO edema noted of the left lower extremity. Right lower extremity wrapped with mor wrap and surgical boot intact following her appointment yesterday with the wound center. Psych Appearance: grossly normal Affect: normal affect Assessment and Plan Assessment and Plan (1) Colovesical fistula: Status: Acute Orders: Orders: Urinalysis, Complete Today Plan - Cristina ECHEVERRIA PA-C: Dr. Wilson has also evaluated this patient. PAtient's symptoms correlate with a colovesical fistula. At this time, unsure of how many openings are associated with this communication. Patient does note lower abdominal cramping. She is noted to have a mass of the left lower abdomen, unsure if this is due to inflammation or colon mass. Dr. Wilson would like to perform a colonoscopy with possible biopsies of the colon tomorrow under MAC sedation. We will utilize Golytely due to the urgency of the procedure and timeframe of having the patient cleaned out. She will also need a straight cath UA to more specifically d etermine if patient continues to have a urinary tract infection. Dr. Wilson has also offered a laparoscopic possible conversion to open laparoscopic left hemicolectomy/sigmoid colectomy with possible colostomy creation on Friday, 06/04. Patient will have PAT today. Patient does have a white count, however appears very content. We have explained to the patient that proceeding with the proposed procedures now, will increase the possibility of a speedy recovery and potential decrease the risk of a colostomy. Patient is aware that waiting may only increase her chances of an emergency surgery and potential development of sepsis. Patient and her daughters are agreeable to the proposed procedures. Patient will be scheduled as an ERAS colectomy procedure. Clindamycin will be used for antibiotic prep. Kurt liaison has met with the patient to discuss financial packages. Lori, our crew scheduler, has extensively explained the pre- op preparation and provided the patient and her daughters with the appropriate information. Patient will plan to prep with Miralax on Friday the day prior to the colectomy. Patient and her daughters have had the opportunity to ask and have questions answered. Patient verbally understands and agrees with the plan. (2) Abdominal pain: Status: Acute Qualifiers: Abdominal location: lower abdomen, unspecified Qualified Code(s): R10.30 - Lower abdominal pain, unspecified Plan - Cristina ECHEVERRIA PA-C: Proceed with colonoscopy tomorrow (3) Bilateral leg pain: Status: Acute Orders: Orders: Venous Duplex US - Jb Extrem Today Plan - Cristina ECHEVERRIA PA-C: Obtain bilateral lower extremity duplex to rule blood clots. Plan Details Other Medications: New: clindamycin HCl administer with large glass of water. 300 mg PO TID 2 days 6 caps 0RF urinary tract infection Discontinued: clindamycin HCl Discontinued Reason: Order Changed 300 mg PO BID 14 caps 0RF Other Orders: Orders: Colonoscopy Today Urinalysis, Complete Today R30.0 Urinalysis, Complete Today R10.9 Coding Level of Care Code 46360 Diagnoses Colovesical fistula N32.1 Abdominal pain R10.30 Abdominal location: lower abdomen, unspecified Bilateral leg pain M79.604; M79.605 05/31/21 1603<Electronically signed by Cristian ECHEVERRIA PA-C> June 01, 2021 The patient presented to the emergency room with a complaint of nausea and vomiting secondary to the bowel prep. She was evaluated by Dr. Lock. No acute abdominal findings identified. Abdominal x-rays did not suggest obstruct ion. There was some residual stool in the rectum. White blood cell count remains at 17,000 similar to 2 days prior. At this point I felt it was pertinent to attempt to proceed with a colonoscopy. Enemas will be provided. Anticipate then trying to proceed with a colonoscopy to identify benign or malignant process. Loki Wilson M.D., F.A.C.S.
--- NOTE | 2021-06-01 12:29 | OP.CCLET_ITS ---
06/01/2021 Kelsy Mensah [address] [id number] Re : Colonoscopy procedure for Anabelle Vargas Dear Dr. Mensah This procedure was performed on Tuesday, June 01, 2021. My impressions and recommendations are as follows: Impressions : - Preparation of the colon was inadequate. - Hemorrhoids found on perianal exam. - Diverticulosis in the sigmoid colon. - Stool in the entire examined colon. - No specimens collected. Recommendations : - Discharge patient to home. - Clear liquid diet. - Continue present medications. - Repeat colonoscopy in 3 months for surveillance. - Segmental resection in 2 days. My findings are described in the full procedure note, which is enclosed. If I can be of further assistance, please feel free to contact me at Doctor phone number(s): Work: . Sincerely, Loki Wilson MD 06/01/2021 12:28:37 PM This report has been signed electronically.
--- NOTE | 2021-06-01 12:29 | OP.COLON_ITS ---
Patient Name: Anabelle Vargas Procedure Date: 06/01/2021 11:30 AM Date of : 1940 Age: 80 Procedure: Colonoscopy Indications: Diverticulitis Providers: Loki Wilson MD Medicines: See the Anesthesia note for documentation of the administered medications Patient Profile: Last Colonoscopy: date unknown. Complications: No immediate complications. Procedure: Pre-Anesthesia Assessment: - Prior to the procedure, a History and Physical was performed, and patient medications and allergies were reviewed. The patient's tolerance of previous anesthesia was also reviewed. The risks and benefits of the procedure and the sedation options and risks were discussed with the patient. All questions were answered, and informed consent was obtained. Prior Anticoagulants: The patient has taken no previous anticoagulant or antiplatelet agents. ASA Grade Assessment: III - A patient with severe systemic disease. After reviewing the risks and benefits, the patient was deemed in satisfactory condition to undergo the procedure. After I obtained informed consent, the scope was passed under direct vision. Throughout the procedure, the patient's blood pressure, pulse, and oxygen saturations were monitored continuously. The pediatric colonoscope was introduced through the anus and advanced to the transverse colon. The colonoscopy was extremely difficult due to inadequate bowel prep. The patient tolerated the procedure well. The quality of the bowel preparation was inadequate. Scope In: 12:00:13 PM Scope Out: 12:11:58 PM Total Procedure Duration Time 0 hours 11 minutes 45 seconds Findings: Hemorrhoids were found on perianal exam. Multiple diverticula were found in the sigmoid colon. A large amount of stool was found in the entire colon, precluding visualization. Impression: - Preparation of the colon was inadequate. - Hemorrhoids found on perianal exam. - Diverticulosis in the sigmoid colon. - Stool in the entire examined colon. - No specimens collected. Recommendation: - Discharge patient to home. - Clear liquid diet. - Continue present medications. - Repeat colonoscopy in 3 months for surveillance. - Segmental resection in 2 days. Procedure Code(s): --- Professional --- 36111, 53, Colonoscopy, flexible; diagnostic, including collection of specimen(s) by brushing or washing, when performed (separate procedure) Diagnosis Code(s): --- Professional --- K64.9, Unspecified hemorrhoids K57.32, Diverticulitis of large intestine without perforation or abscess without bleeding K57.30, Diverticulosis of large intestine without perforation or abscess without bleeding CPT copyright 2017 [employer]. All rights reserved. The codes documented in this report are preliminary and upon supervisor of way review may be revised to meet current compliance requirements. Loki Wilson MD 06/01/2021 12:28:37 PM This report has been signed electronically. Number of Addenda: 0 Note Initiated On: 06/01/2021 11:30 AM
== END 2021-06-01 23:59 | disposition home or self-care (01) ==
LOC: EN 10:29 → AC 10:30
PROVIDERS: Anesthesiology; PCP Internal Medicine; Referring Provider Internal Medicine; Visit Provider Surgery
PROC: 0DJD8ZZ Inspection of Lower Intestinal Tract, Via Natural or Artificial Opening Endoscopic (ICD-10-PCS; CPT 45378; principal; 2021-06-01 11:40)
DX: K57.32 Diverticulitis of large intestine without perforation or abscess without bleeding (principal); E11.51 Type 2 diabetes mellitus with diabetic peripheral angiopathy without gangrene; M06.9 Rheumatoid arthritis, unspecified; I50.9 Heart failure, unspecified; I13.0 Hypertensive heart and chronic kidney disease with heart failure and stage 1 through stage 4 chronic kidney disease, or unspecified chronic kidney disease; E11.22 Type 2 diabetes mellitus with diabetic chronic kidney disease; E11.42 Type 2 diabetes mellitus with diabetic polyneuropathy; E11.36 Type 2 diabetes mellitus with diabetic cataract; N32.1 Vesicointestinal fistula; K64.9 Unspecified hemorrhoids; E78.00 Pure hypercholesterolemia, unspecified; Z79.84 Long term (current) use of oral hypoglycemic drugs; N18.9 Chronic kidney disease, unspecified; Z79.899 Other long term (current) drug therapy; Z79.82 Long term (current) use of aspirin; I25.2 Old myocardial infarction; Z90.49 Acquired absence of other specified parts of digestive tract; Z87.440 Personal history of urinary (tract) infections; Z95.1 Presence of aortocoronary bypass graft; Z87.442 Personal history of urinary calculi
CPT/HCPCS: 45378; 74018; 80053; 83036; 83735; 85025; 87426; 99283; J7030; A4216; J2405

== ENCOUNTER 2021-06-04 09:35 | Inpatient (IN) | payer SELFPAY ==
--- NOTE | 2021-05-31 10:47 | EKG12_ITS ---
Test Reason : PRE OP Blood Pressure : / mmHG Vent. Rate : 055 BPM Atrial Rate : 055 BPM P-R Int : 174 ms QRS Dur : 086 ms QT Int : 462 ms P-R-T Axes : 083 073 105 degrees QTc Int : 441 ms Sinus bradycardia Nonspecific ST abnormality Abnormal ECG Confirmed by SARA HUTTON, PERCY ([id number]), editor house organ PRIYANKA VUONG ([id number]) on 06/01/2021 7:53:36 AM Referred By: MILA Confirmed By:PERCY RUIZ MD
[2021-06-04] VITALS (23 sets, daily range): BP systolic 76–158; BP diastolic 43–58; PULSE 46–57; RESP 16–20; TEMP 35.3–36.6; O2SAT 92–100; BMI 26.4; BMI 27.8
--- NOTE | 2021-06-04 | COL_PTH ---
PATIENT: DARREN SANDOVAL LOC: [facility] U#:[id number] AGE/SX: 80/F ROOM: [facility] RE06/04/[address]: Dr. Paulina Evans MD : 1940 BED: 1 DIS: 06/11/2021 SPEC #: [id number] RECD: 06/05/21 07:13 STATUS: CHLOE LYNN #: [id number] MARIA ELENA: 06/04/21 00:[address]: Loki Wilson DEPT: SURGICAL PATHOLOGY RECD BY: Garrick Cardoza ENTERED: 06/05/21 10:46 SP TYPE: COLON OTHR DR: MD Dr. Kelsy Acosta MD Tissues: A - Colon, NOS B - Colon Donuts C - Colon Donuts Procedures: Surgery Specimen Level IV Surgery Specimen Level V HEADER OPERATION: ERAS, open sigmoid colectomy, low anterior resection PRE-OP DIAGNOSIS: Colovesical fistula, abdominal pain TISSUE SUBMITTED: A ? Sigmoid colon, B ? Distal colon ring, C ? Proximal colon ring MICROSCOPIC DIAGNOSIS A. Sigmoid colon, segmental resection: Diverticular disease of colon with focal rupture and associated microabscess formation. Benign lymph node with no pathologic change. B. Distal mucosal donut, excision: No pathologic change. C. Proximal colonic donut, excision: No pathologic change. AM:delisa 06/07/2021 MICROSCOPIC DESCRIPTION Slides are reviewed. GROSS DESCRIPTION A - Received in fixative is one container labeled with the patient's name and designated sigmoid colon. The specimen consists of a 25.8 cm segment of bowel with adherent attached fibrofatty tissue. No gross perforations are identified. Serial sections reveal a number of diverticula. None of these appear to have perforated through the bowel wall. Blood Bank Technologist sections are submitted in five cassettes as follows: 14 ? diverticula, 5 ? pericolic soft tissue with possible lymph node. B - Received in fixative is one container labeled with the patient's name and designated distal colon ring. The specimen consists of an elongated fragment of glistening mucosa with attached almazan soft tissue measuring 6 x 2 x 0.8 cm. No mass lesions are identified. Blood Bank Technologist sections are submitted in one cassette. C - Received in fixative is one container labeled with the patient's name and designated proximal colon ring. The specimen consists of a almazan mucosal donut measuring 2.8 x 2 x 1 cm. No mass lesions are identified. Blood Bank Technologist sections are submitted in one cassette. / AM:delisa 06/06/2021 TC:2 CPT: 84067 x2, 41405
[2021-06-04 10:15] LABS: Absolute Lymphocyte Count 2.64 X10^3/uL (0.83-4.51); Absolute Neutrophil Count 8.7 X10^3/uL (2.0-7.7); Basophil# 0.04 X10^3/uL; Basophil% 0.3 % (0-1); Eosinophil# 0.11 X10^3/uL; Eosinophils% 0.8 % (0-5); Hematocrit 38.2 % (37-47); Hemoglobin 13.3 g/dL (12.0-15.0); Lymphocyte # 2.64 X10^3/ul (0.83-4.51); Lymphocyte % 20.3 % (19-41); Mean Corp Hgb Conc 34.8 g/dL (32-36); Mean Corpuscular Hgb 29.6 pg (27.0-32.0); Mean Corpuscular Volume 84.9 fL (81-99); Mean Platelet Vol. 9.8 fl (6.2-12.0); Monocyte# 1.43 X10^3/uL; NRBC Flagged by Analyzer 0 % (0-5); Neutrophil % 66.8 % (47-70); Platelet Count 313 K/mm3 (150-450); RBC Distribution Width CV 14.8 % (11.6-14.6); RBC Distribution Width SD 46.1 fl (35.1-43.9)
[2021-06-04] MEDS: Gabapentin 600 MG Tablet PO (10:22)
[2021-06-04] MEDS: Acetaminophen 500 MG Tablet 1000 MG PO (10:22)
[2021-06-04] MEDS: Lactated Ringers 1,000 ML 40 ML IV (10:22)
[2021-06-04] MEDS: Insulin Lispro 100 UNIT/ML INSULN.PEN SC (10:24)
[2021-06-04 10:30] LABS: Bedside Glucose 272 mg/dL (74-106)
[2021-06-04 10:52] LABS: Anion Gap 8 (5-15); BUN 16 mg/dL (7-18); Calcium,Total 8.3 mg/dL (8.5-10.1); Chloride 96 mmol/L (98-107); Creatinine, Serum 1.33 mg/dL (0.55-1.02); EST Glomerular Filtration Rate 41 mL/min (>60); Est Glom Filt Rate - Afr Amer 49 mL/min (>60); Estimated Creatinine Clearance 29.13 ml/min; Glucose 268 mg/dL (74-106); Magnesium 2.4 mg/dL (1.6-2.6); Potassium 3.3 mmol/L (3.5-5.1); Sodium Level 126 mmol/L (136-145)
[2021-06-04 12:17] LABS: Hemoglobin A1c 5.9 % (3.8-5.6)
--- NOTE | 2021-06-04 12:20 | PCM.HP.BLA ---
History and Physical Date of Admission: 06/04/21 History and Physical Intake Visit Reasons: dfiscuss surgery, abn CT Chief Complaint: abn CT Senior Cobol Developer Required: No Is patient in pain?: Yes (low abdomen) Allergies adhesive Allergy (Verified 05/31/21 14:41) Unknown bacitracin zinc [From Neosporin ([id number])] Allergy (Verified 05/31/21 14:41) Rash metronidazole Allergy (Verified 05/31/21 14:41) ALLERGY neomycin sulfate [From Neosporin ([id number])] Allergy (Verified 05/31/21 14:41) Rash polymyxin B [From Neosporin ([id number])] Allergy (Verified 05/31/21 14:41) Rash prednisolone acetate, micronized Allergy (Verified 05/31/21 14:41) ALLERGY simvastatin Allergy (Verified 05/31/21 14:41) ALLERGY tramadol [From Ultram] Allergy (Verified 05/31/21 14:41) ALLERGY amoxicillin [From Augmentin] Adverse Reaction (Verified 05/31/21 14:41) Nausea/Vom/Diarrhea atorvastatin calcium [From Lipitor] Adverse Reaction (Verified 05/31/21 14:41) Pain in joints clavulanic acid [From Augmentin] Adverse Reaction (Verified 05/31/21 14:41) Nausea/Vom/Diarrhea fenofibrate nanocrystallized [From Tricor] Adverse Reaction (Verified 05/31/21 14:41) Upset Stomach flurbiprofen Adverse Reaction (Verified 05/31/21 14:41) Upset Stomach gemfibrozil Adverse Reaction (Verified 05/31/21 14:41) Upset Stomach glipizide [From Glucotrol] Adverse Reaction (Verified 05/31/21 14:41) Upset Stomach pravastatin Adverse Reaction (Verified 05/31/21 14:41) Pain in joints Medications glyburide 5 mg PO DAILY@0800 08/26/15 [History Confirmed 05/31/21] metformin 500 mg PO TIDCM 08/26/15 [History Confirmed 05/31/21] ascorbic acid (vitamin C) 500 mg PO DAILY@1200 12/09/16 [History Confirmed 05/31/21] atenolol 50 mg PO BID 12/09/16 [History Confirmed 05/31/21] cholecalciferol (vitamin D3) 1,000 unit PO DAILY@1200 12/09/16 [History Confirmed 05/31/21] cyanocobalamin (vitamin B-12) 1,000 mcg PO DAILY@1200 12/09/16 [History Confirmed 05/31/21] multivitamin 1 ea PO DAILY@1200 12/09/16 [History Confirmed 05/31/21] omega-3 fatty acids-fish oil 1 cap PO BID 12/09/16 [History Confirmed 05/31/21] aspirin 81 mg PO DAILY 06/11/17 [History Confirmed 05/31/21] magnesium oxide 400 mg PO DAILY@1200 03/01/20 [History Confirmed 05/31/21] amlodipine 10 mg PO DAILY 09/29/20 [History Confirmed 05/31/21] clindamycin HCl 300 mg capsule 300 mg PO TID 2 Days #6 cap 05/31/21 [Rx Confirmed 05/31/21] furosemide 40 mg PO DAILY 05/31/21 [History Confirmed 05/31/21] lisinopril 30 mg PO DAILY 05/31/21 [History Confirmed 05/31/21] [facility] Medical History (Updated 05/31/21 @ 15:43 by Cristina ECHEVERRIA, PA-C) Abdominal pain Arthritis Back pain Bilateral leg pain Breast lump in female Cardiology follow-up encounter Cataracts, bilateral CKD (chronic kidney disease) Colovesical fistula Controlled type 2 diabetes mellitus with hyperglycemia Delayed wound healing Diabetes Dietary restriction Diverticulosis Heart failure High blood pressure High cholesterol History of diverticulitis History of echocardiogram History of edema History of heart attack Kidney stones Loss of hearing Non-smoker Open wound Osteoarthritis Peripheral arterial disease Rheumatoid arthritis Shortness of breath on exertion Type 2 diabetes mellitus with diabetic polyneuropathy Ulcer of right foot with necrosis of bone Ulcer of right lower extremity with muscle involvement without evidence of necrosis Unspecified protein-calorie malnutrition Wears glasses Surgical History (Updated 05/31/21 @ 15:20 by Alexa Arita) History of cholecystectomy History of heart bypass surgery History of knee replacement Hx of colonoscopy S/P hysterectomy Family History Mother Diabetes Father Hypertension CVA (cerebral vascular accident) Brother Lung cancer Sister Breast cancer COPD (chronic obstructive pulmonary disease) Social History household members: family housing: house Smoking Status: Never smoker alcohol intake: current alcohol intake frequency: other substance use type: does not use additional social history: USES ASPIRIN HPI HPI HPI: DARREN SANDOVAL, is a 80 F who presents to the office today for abnormal CT scan and vaginal discharge. Patient stated she was treated 3 weeks ago for a urinary tract infection. She was placed on antibiotics by her PCP. She completed those and continued to have symptoms with urination. She was placed on an additional week of antibiotics after being evaluated by [facility] urgent care for continued UTI. After 2 weeks of antibiotics, patient had a bowel movement and noticed what appeared to be stool seepage from her vagina. She presented to the ED on 05/23 due to the vaginal discharged. She had a culture completed and was treated for bacterial vaginosis as the drainage appeared more milky in character. She was placed on 1 weeks worth of clindamycin and recommended to follow-up with her OPTOMECHANICAL ENGINEER. I received a phone call yesterday from Dr. Humphries, OPTOMECHANICAL ENGINEER, who noted purulent fluid within the vagina during speculum evaluation. She suspected a perforated diverticulum. CT scan of the abdomen/pelvis was ordered an demonstrated mild degree of sigmoid diverticulitis. No evidence of abscess. Air fluid level in the urinary bladder. Colovesical fistula should be ruled out. Patient notes having lower abdominal cramping discomfort. No severe amount of pain. She denies fever, nausea, vomiting. She notes her appetite has been normal. She notes having normal bowel movements for her, which is fluctuating between constipation and soft stools. She notes approximately an unintentional 15 pound weight loss over the last 2 years. She denies having any flatus through her vagina prior to 1 week ago. She notes previous open cholecystectomy, total hysterectomy in regards to abdominal surgeries. She states she has been hospital once for diverticulitis approximately 5 years ago. She notes her last colonoscopy was approximately [address] Wilson at [facility] surgery center. She notes cardiac bypass x 4 vessels approximately 5 years ago. She notes history of CHF. She denies being hospitalized with CHF previously. She is currently on aspirin. She denies having a pacemaker/defibrillator. She is a non-insulin dependent diabetic. She is maintained on Metformin and Glyburide. She denies pulmonary disease. Patient's WBC is 17.1 from 05/30/21. Patient was recently discharged from the wound center following a right hallux amputation. Patient has had previous lower extremity arterial intervention and carotid endarterectomy, left side by Dr. Wilson. ROS General General: Yes fatigue; No weight change, appetite, colon cancer, breast cancer or weakness HEENT HEENT: No difficulty swallowing, eye injury, eye surgery, swollen glands or hoarseness Endo Endocrine: Yes diabetes mellitus; No thyroid disease, thyroid cancer, Hair loss, heat intolerance or cold intolerance Skin Skin: No rash or changing moles Breast Breast: No left breast lump, right breast lump, nipple discharge, breast pain, abnormal mammogram, abnormal US or breast enlargement Musc Musculoskeletal: Yes arthritis and rheumatoid arthritis; No back problems, gout or joint pain Cardio Cardiovascular: Yes high blood pressure, heart attack and heart stent; No murmur, pacemaker, heart disease, atrial fibrillation, palpitations, shortness of breat with exertion or chest pain Psych Psychiatric: No depression, anxiety or hearing voices Resp Respiratory: Yes shortness of breath, No sleep apnea, No cough, No COPD, No asthma, No emphysema and No wheezing Gastro Gastrointestinal: No abdominal pain, No nausea or vomiting, No diarrhea, No constipation, No blood in stool, No acid reflux, No hemorrhoids, No ulcers, No gallbladder problem and No black,tarry stools Jabier Hematologic: No blood thinners, No blood disorders, No bleeding, No anemia and No blood clots Neuro Neurologic: No system reviewed and no additional complaints, except as documented, No as per HPI, No abnormal gait, No abnormal hearing, No abnormal movements, No abnormal speech, No behavioral changes, No burning sensations, No confusion, No convulsions, No disequilibrium, No dizziness, No localized weakness, No frequent falls, No headache(s), No lack of coordination, No loss of vision, No memory loss, No numbness, No other visual disturbances, No radicular pain, No restless legs, No sensory deficit, No syncope, No tingling, No tremor(s), No weakness and No other Exam Const General: cooperative, healthy appearing, comfortable and no acute distress [facility] Head: normal to inspection Eyes General: appearance normal, both eyes and all related structures Neck Neck: normal visual inspection Neck mass: No Resp Effort & Inspection: normal respiratory effort Auscultation: clear to auscultation bilaterally Cardio Rate: regular rate Rhythm: regular rhythm GI Inspection: scar (nicely healed incision in the RUQ) Palpation: soft, hernia umbilical (easily reducible ) and mass (palpable in the LLQ) Auscultation: normal bowel sounds Musc Cervical Spine: normal cervical lordosis Skin General: no rashes or lesions noted Neuro General: no focal motor deficits and CN's II-XI intact bilaterally Extrem Other: NO edema noted of the left lower extremity. Right lower extremity wrapped with mor wrap and surgical boot intact following her appointment yesterday with the wound center. Psych Appearance: grossly normal Affect: normal affect Assessment and Plan Assessment and Plan (1) Colovesical fistula: Status: Acute Orders: Orders: Urinalysis, Complete Today Plan - Cristina ECHEVERRIA PA-C: Dr. Wilson has also evaluated this patient. PAtient's symptoms correlate with a colovesical fistula. At this time, unsure of how many openings are associated with this communication. Patient does note lower abdominal cramping. She is noted to have a mass of the left lower abdomen, unsure if this is due to inflammation or colon mass. Dr. Wilson would like to perform a colonoscopy with possible biopsies of the colon tomorrow under MAC sedation. We will utilize Golytely due to the urgency of the procedure and timeframe of having the patient cleaned out. She will also need a straight cath UA to more specifically determine if patient continues to have a urinary tract infection. Dr. Wilson has also offered a laparoscopic possible conversion to open laparoscopic left hemicolectomy/sigmoid colectomy with possible colostomy creation on Friday, 06/04. Patient will have PAT today. Patient does have a white count, however appears very content. We have explained to the patient that proceeding with the proposed procedures now, will increase the possibility of a speedy recovery and potential decrease the risk of a colostomy. Patient is aware that waiting may only increase her chances of an emergency surgery and potential development of sepsis. Patient and her daughters are agreeable to the proposed procedures. Patient will be scheduled as an ERAS colectomy procedure. Clindamycin will be used for antibiotic prep. Kurt liaison has met with the patient to discuss financial packages. Lori, our site auditor, has extensively explained the pre-op preparation and provided the patient and her daughters with the appropriate information. Patient will plan to prep with Miralax on Friday the day prior to the colectomy. Patient and her daughters have had the opportunity to ask and have questions answered. Patient verbally understands and agrees with the plan. (2) Abdominal pain: Status: Acute Qualifiers: Abdominal location: lower abdomen, unspecified Qualified Code(s): R10.30 - Lower abdominal pain, unspecified Plan - Cristina ECHEVERRIA PA-C: Proceed with colonoscopy tomorrow (3) Bilateral leg pain: Status: Acute Orders: Orders: Venous Duplex US - Jb Extrem Today Plan - Cristina ECHEVERRIA PA-C: Obtain bilateral lower extremity duplex to rule blood clots. Plan Details Other Medications: New: clindamycin HCl administer with large glass of water. 300 mg PO TID 2 days 6 caps 0RF urinary tract infection Discontinued: clindamycin HCl Discontinued Reason: Order Changed 300 mg PO BID 14 caps 0RF Other Orders: Orders: Colonoscopy Today Urinalysis, Complete Today R30.0 Urinalysis, Complete Today R10.9 Coding Level of Care Code 61116 Diagnoses Colovesical fistula N32.1 Abdominal pain R10.30 Abdominal location: lower abdomen, unspecified Bilateral leg pain M79.604; M79.605 05/31/21 1603<Electronically signed by Cristina ECHEVERRIA PA-C> June 01, 2021 The patient presented to the emergency room with a complaint of nausea and vomiting secondary to the bowel prep. She was evaluated by Dr. Lock. No acute abdominal findings identified. Abdominal x-rays did not suggest obstruction. There was some residual stool in the rectum. White blood cell count remains at 17,000 similar to 2 days prior. At this point I felt it was pertinent to attempt to proceed with a colonoscopy. Enemas will be provided. Anticipate then trying to proceed with a colonoscopy to identify benign or malignant process. Loki Wilson M.D., F.A.C.S. On June 01, 2021 at the [facility] I attempted a colonoscopy. Unfortunately the patient had not been able to tolerate her GoLYTELY bowel prep and took very little. There is a significant amount of solid and liquid stool. I could not complete the colonoscopy. However I was able to engage the left colon. I was able to identify significant diverticular disease. I did not see anything that appeared to be malignant. The patient is elderly and having significant difficulty taking oral preps and oral antibiotic. I have elected to keep the patient on clear liquids then over the weekend and continue a ongoing gentle prep using MiraLAX. She went through a enhanced recovery program. Her oral antibiotics and treating the colovaginal fistula and urinary tract infection were continued. She presents now for hopeful plan definitive surgery. I anticipate initiating it laparoscopically though understand that this could require conversion to a hand-assisted or open approach. Anticipate disconnecting what is felt likely to be a colovaginal fistula and then hopefully been able to do a primary resection of the sigmoid colon/low anterior resection with primary anastomosis. The patient is aware that a diverting colostomy or ileostomy may be required. She has had an opportunity to ask and have questions answered. We will pursue as needed. Loki Wilson M.D., F.A.C.S.
--- NOTE | 2021-06-04 15:30 | CON.PCM.UR_ITS ---
Assessment & Plan Assessment/Plan (1) Intraoperative ureteral injury: HPI Consult Data Date of Consult: 06/04/21 HPI Narrative HPI Narrative: DARREN SANDOVAL, is a 80 F who who was in the operating room and I was called in to see the patient regarding a potential complication to the left ureter she was undergoing a very complex procedure and had a colovaginal and colovesical fistula. [facility] Medical History (Updated 06/04/21 @ 16:[address] Roberto Hobson MD) Abdominal pain Arthritis Back pain Bilateral leg pain Breast lump in female Cardiology follow-up encounter Cataracts, bilateral CKD (chronic kidney disease) Colovesical fistula Controlled type 2 diabetes mellitus with hyperglycemia Delayed wound healing Diabetes Dietary restriction Diverticulosis Heart failure High blood pressure High cholesterol History of diverticulitis History of echocardiogram History of edema History of heart attack Kidney stones Loss of hearing Non-smoker Open wound Osteoarthritis Peripheral arterial disease Rheumatoid arthritis Shortness of breath on exertion Type 2 diabetes mellitus with diabetic polyneuropathy Ulcer of right foot with necrosis of bone Ulcer of right lower extremity with muscle involvement without evidence of necrosis Unspecified protein-calorie malnutrition Wears glasses Home Medications glyburide 5 mg PO DAILY@0800 08/26/15 [History Last Taken 11/01/20] metformin 500 mg PO TIDCM 08/26/15 [History Last Taken 11/01/20] ascorbic acid (vitamin C) 500 mg PO DAILY@1200 12/09/16 [History Last Taken 11/01/20] atenolol 50 mg PO BID 12/09/16 [History Last Taken 11/01/20] cholecalciferol (vitamin D3) 1,000 unit PO DAILY@1200 12/09/16 [History Last Taken 11/01/20] cyanocobalamin (vitamin B-12) 1,000 mcg PO DAILY@1200 12/09/16 [History Last Taken 11/01/20] multivitamin 1 ea PO DAILY@1200 12/09/16 [History Last Taken 11/01/20] omega-3 fatty acids-fish oil 1 cap PO BID 12/09/16 [History Last Taken 05/31/21] aspirin 81 mg PO DAILY 06/11/17 [History Last Taken 05/31/21] magnesium oxide 400 mg PO DAILY@1200 03/01/20 [History Last Taken 11/01/20] amlodipine 10 mg PO DAILY 09/29/20 [History Last Taken 11/01/20] furosemide 40 mg PO DAILY 05/31/21 [History Last Taken Unknown] lisinopril 30 mg PO DAILY 05/31/21 [History Last Taken Unknown] Allergy/AdvReac Type Severity Reaction Status Date / Time adhesive Allergy Unknown Verified 06/04/21 10:15 bacitracin zinc Allergy Rash Verified 06/04/21 10:15 [From Neosporin ([id number])] metronidazole Allergy ALLERGY Verified 06/04/21 10:15 neomycin sulfate Allergy Rash Verified 06/04/21 10:15 [From Neosporin ([id number])] polymyxin B Allergy Rash Verified 06/04/21 10:15 [From Neosporin ([id number]-cxcxm)] prednisolone acetate, Allergy ALLERGY Verified 06/04/21 10:15 micronized simvastatin Allergy ALLERGY Verified 06/04/21 10:15 tramadol [From Ultram] Allergy ALLERGY Verified 06/04/21 10:15 amoxicillin [From Augmentin] AdvReac Nausea/Vom/ Verified 06/04/21 10:15 Diarrhea atorvastatin calcium AdvReac Pain in Verified 06/04/21 10:15 [From Lipitor] joints clavulanic acid AdvReac Nausea/Vom/ Verified 06/04/21 10:15 [From Augmentin] Diarrhea fenofibrate nanocrystallized AdvReac Upset Verified 06/04/21 10:15 [From Tricor] Stomach flurbiprofen AdvReac Upset Verified 06/04/21 10:15 Stomach gemfibrozil AdvReac Upset Verified 06/04/21 10:15 Stomach glipizide [From Glucotrol] AdvReac Upset Verified 06/04/21 10:15 Stomach pravastatin AdvReac Pain in Verified 06/04/21 10:15 joints Family History Mother Diabetes Father Hypertension CVA (cerebral vascular accident) Brother Lung cancer Sister Breast cancer COPD (chronic obstructive pulmonary disease) Surgical History History of appendectomy History of cholecystectomy History of heart bypass surgery History of knee replacement Hx of colonoscopy S/P hysterectomy Social History household members: family housing: house Smoking Status: Never smoker alcohol intake: current alcohol intake frequency: other substance use type: does not use additional social history: USES ASPIRIN Physical Exam Const alert and oriented x3 General Appearance: cooperative HEENT normocephalic, head/scalp atraumatic, EAC's normal and TM's normal bilaterally Eyes PERRL and EOMs intact bilaterally Pupil: sluggish Neck no lymphadenopathy, supple and no JVD General: trachea midline Lymph Lymphatic: no lymphadenopathy noted, lymphedema and lymphadenopathy Resp normal respiratory effort, normal air movement and clear to auscultation bilaterally Cardio regular rate, regular rhythm and peripheral pulses 2+ throughout GI soft to palpation, non-tender and non-distended Extremity normal capillary refill and no clubbing, cyanosis or edema General Extremity: no tenderness to palpation of joints or extremities Skin no rashes or lesions noted General Skin Exam: turgor normal Lesions: no lesions Rashes: no rashes Neuro CN's II-XII intact bilaterally Speech: speech normal Motor Exam: strength 5/5 throughout; Negative for general weakness Psych thought process normal, cooperative and affect normal Appearance: appropriate Lab / Micro Data Result Diagrams: 06/04/21 10:04 06/04/21 10:04 Labs: Laboratory Results - last 24 hr 06/04/21 10:04: Sodium 126 L, Potassium 3.3 L, Chloride 96 L, Carbon Dioxide 22.0, Anion Gap 8, BUN 16, Creatinine 1.33 H, Estim Creat Clear Calc 29.13, Est GFR (MDRD) Af Amer 49 L, Est GFR (MDRD) Non-Af 41 L, BUN/Creatinine Ratio 12.0, Glucose 268 H, Calcium 8.3 L, Magnesium 2.4 06/04/21 10:04: Hemoglobin A1c 5.9 H 06/04/21 10:04: WBC 13.0 H, RBC 4.50, Hgb 13.3, Hct 38.2, MCV 84.9, MCH 29.6, MCHC 34.8, RDW Std Deviation 46.1 H, RDW Coeff of Monique 14.8 H, Plt Count 313, MPV 9.8, Immature Gran % (Auto) 0.800, Neut % (Auto) 66.8, Lymph % (Auto) 20.3, Barry % (Auto) 11.0 H, Eos % (Auto) 0.8, Baso % (Auto) 0.3, Absolute Neuts (auto) 8.7 H, Absolute Lymphs (auto) 2.64, Nucleated RBC % 0 06/04/21 10:10: POC Glucose 272 H
[2021-06-04] MEDS: Lubricating Jelly 60 GM Tube 30 GM (16:07)
--- NOTE | 2021-06-04 16:47 | PCM.OPRPT ---
Report of Operation Date of Procedure: 06/04/21 Pre-Operative Diagnosis: Left ureteral injury partial Post-Operative Diagnosis: Same Surgery/Procedure Performed:: Cystoscopy and left stent placement and right ureteral catheter placement and repair of partial left ureteral injury Description of Surgical Findings:: This is an 80-year-old female who is undergoing a complex repair with a colovesical and colovaginal fistula and the colon was adherent to both the organs which was removed by the surgeon during the dissection the surgeon had identified the left ureter and also had identified a partial injury to the left ureter, I was called into assist with this case. On arrival the patient abdomen was already opened with a lower midline incision retractors were already in place and a structure that was running from the bladder to the retroperitoneum was shown to me definitely was the ureter was peristalsing and perfect color and then inspection of the ureter there was a tiny less than 2 mm or 3 mm muscular injury but not through and through to the ureter itself you could cut his see through the mucosal layer but it was not a through and through injury. So because of this I recommended we place a stent on the left side to make sure this heals so the patient catheter was removed went into the bladder with the cystoscope identified the left ureteral orifice advanced a wire up and then put a stent on the left side we also placed a ureteral catheter on the right side to assist with identifying the right ureter so that it would not be injured. After the stent was in place and I inspected the abdomen you could see very small injury to the ureter so using a 4 oh tapered needle with 4-0 Vicryl stitch was placed to reapproximate the muscle this was placed very loosely not tight to avoid a stricture at the site. After this was placed speaking with the general surgeon he will continue with his case she will need a stent in the LAD at this to heal and she can follow-up in my office after her discharge from the hospital I will see her in the hospital as well for follow-up and then will probably remove the stent about a month or so. Surgeon: boubacar Type of Anesthesia: General Drains: stent left,, U cath right Admit VTE Documentation VTE Present on Admission: No VTE Mechan Device Prophylaxis: SCD's VTE Pharm Prophylaxis ordered?: No
[2021-06-04] MEDS: Lactated Ringers 1,000 ML 120 ML IV (17:30)
[2021-06-04] MEDS: BUPIVACAINE LIPOSOME/PF 20 ML VIAL OPERA.SITE (17:32)
[2021-06-04] MEDS: 0.9% Normal Saline (Pres. free 10 ML Vial (17:33)
[2021-06-04] MEDS: Bupivacaine 0.25% 30 ML Vial (17:33)
--- NOTE | 2021-06-04 17:37 | OP.PCM_ITS ---
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 Left ureteral stenting with anterior wall repair per Dr. Hobson Description of Surgical Findings:: Timeout informed consent was obtained. 80-ye ar-old female was taken down from placement table underwent general trach intubation esthesia cefotetan 2 g were given intravenously. She was placed on a low lithotomy position. She had become grossly distended over the weekend. The transverse colon was grossly visualized and this was consistent with the patient and family's comments that she ceased to be able to pass gas. She underwent intubation and carefully an NG tube was placed and placed to suction. She was placed in the low lithotomy position. Mosher catheter was placed a small amount of 30 yellow urine emanated there from. The abdomen was sterilely prepped and draped a vertical midline incision from the umbilicus down to pubis was eventually made. 1 hour of lysis of adhesions and followed due to extensive adhesions of omentum and small bowel to the anterior abdominal wall and pelvis. Tedious careful dissection was required there were dense adhesions making freeing the small bowel very difficult. Finally was able to free the terminal ileum. Then identified a colonic mass with what appeared to be stricture and obstruction. This was densely adherent to the urinary bladder and vaginal cuff. Carefully dissected that free. I used a lot of finger dissection. Upon finally making maneuver to elevate the colon became apparent that the left ureter had come up with the inflamed mass small alicja was made in the anterior portion of that not full-thickness Dr Amanda roldan inspected it put a temporary right ureteral catheter and put a left ureteral stent 10 placed a simple suture in the partial wall thickness of the left ureter. No additional treatment was felt to be indicated. Finally was able to free the sigmoid colon from the vaginal cuff. I placed a candycane stapler with 2 firings transected the rectum. Both ureters were intact. I then dissected free the mesentery to the colon which was densely calcified I placed hemolock clips were appropriate. Elevated the left pericolic gutter to get length. The descending colon was grossly distended. At this point I elected to attempt a primary anastomosis with small bowel diversion. Because of the positioning I did not feel that the and the colostomy would be reversible. So I transected the colon aspirated liquid stool placed whip suture of 2-0 Prolene placed a 33 mm circular anvil the rectum and then irrigated it was then water tested with a rigid sigmoidoscope no air leaks in the anvil inserted per anorectum under direct visualization that was connected to the anvil and then the 2 were approximated stapler was fired and donuts were inspected noted be completely intact. However due to the gross distention of the colon and age of the patient and calcified vessels I would like to do a loop ileostomy. The office was copious irrigated. Left lower quadrant stab incision was created a 15 round HUGH drain was placed into the pelvic area it was shortened in length. It was secured to skin with 3-0 nylon. Then made a stoma in the right lower quadrant except circularly excised and skin subtenons tissue then making a transverse incision bringing the stoma out using a red rubber catheter partially mesher that using simple sutures of 4-0 Vicryl. Then I opened the stoma and matured that directly with 4-0 Vicryl. The midline wound was treated with a running #1 PDS in interrupted [id number]-jv-monod of 0 Nurolon. Skin edges were only partially approximated with interrupted 4-0 Monocryl sutures at significant spacing. Saline wet-to-dry dressings applied. Sponge and instrument and needle counts were reported to the surgeon to be correct Blood loss 200 cc. Specimens include the sigmoid colon and rectum. Drains 15 round HUGH through left lower quadrant stab incision. The patient was taken to the recovery room in satisfactory addition. It is of note that I did use a solution of 1% lidocaine and 0.5% Marcaine and Exparel as I had planned a bilateral tap block as initially I thought I could do this laparoscopically but that was before the patient presented with gross abdominal distention and colonic obstruction. So then the procedure as best I could visualize I instilled local into the transversus abdominis plane on both sides of the wound and then placed further local into the wound itself in the subcutaneous tissues. Loki Wilson M.D., F.A.C.S. Surgeon: Loki Wilson Type of Anesthesia: General and Local
--- NOTE | 2021-06-04 17:57 | RAD_ITS ---
INDICATION: post surgery EXAMINATION/TECHNIQUE: X-RAY - XR Chest 1 View COMPARISON: 11/01/2020. FINDINGS: Small amount of right middle and lower lobe aspiration. Chronic interstitial lung changes. Bibasilar atelectasis. Tortuous and calcified thoracic aorta. The heart is not enlarged. Interval placement of NG tube with tip in the stomach. Questionable trace right pleural effusion. No pneumothorax. Degenerative changes of the thoracic spine and shoulders. RAD/Chest 1 View (Portable) IMPRESSION: New small amount of right middle and lower lobe aspiration. Interval placement of NG tube with tip in the stomach. Questionable trace right pleural effusion. Chronic interstitial lung changes. Electronically Signed: Niko Zepeda MD at 18:54 EDT ,
--- NOTE | 2021-06-04 17:59 | PN.HOSP_ITS ---
Documented by User: Anabel Storey MATCHER OFFBEARER, MATCHER OFFBEARER-C 06/04/21 18:20 Subjective Subjective Patient seen and examined. Hospitalist services consulted for medical management. Patient in PACU following OR for colovesical fistula. Patient drowsy. Appears comfortable. Vitals stable. Objective Data Objective Data Vital Signs: Vital Signs Temp Pulse Resp BP Pulse Ox 97.9 F 49 L 16 158/52 H 98 06/04/21 10:17 06/04/21 10:17 06/04/21 10:17 06/04/21 10:17 06/04/21 10:17 Oxygen Delivery Method Room Air Weight: 154 lb 5.177 oz Body Mass Index (BMI) 26.4 Intake & Output: Intake and Output for Last 24 Hours 06/02/21 06/03/21 06/04/21 22:59 23:59 23:59 Intake Total 100 / 100 Balance 100 / 100 Lab / Micro Data Result Diagrams: 06/04/21 18:25 06/04/21 18:25 Labs: Laboratory Results - last 24 hr 06/04/21 10:04: Sodium 126 L, Potassium 3.3 L, Chloride 96 L, Carbon Dioxide 22.0, Anion Gap 8, BUN 16, Creatinine 1.33 H, Estim Creat Clear Calc 29.13, Est GFR (MDRD) Af Amer 49 L, Est GFR (MDRD) Non-Af 41 L, BUN/Creatinine Ratio 12.0, Glucose 268 H, Calcium 8.3 L, Magnesium 2.4 06/04/21 10:04: Hemoglobin A1c 5.9 H 06/04/21 10:04: WBC 13.0 H, RBC 4.50, Hgb 13.3, Hct 38.2, MCV 84.9, MCH 29.6, MCHC 34.8, RDW Std Deviation 46.1 H, RDW Coeff of Monique 14.8 H, Plt Count 313, MPV 9.8, Immature Gran % (Auto) 0.800, Neut % (Auto) 66.8, Lymph % (Auto) 20.3, [place] % (Auto) 11.0 H, Eos % (Auto) 0.8, Baso % (Auto) 0.3, Absolute Neuts (auto) 8.7 H, Absolute Lymphs (auto) 2.64, Nucleated RBC % 0 06/04/21 10:10: POC Glucose 272 H Physical Exam Const oriented x3 and no apparent distress Constitutional Narrative: Drowsy Orientation / Consciousness: oriented to person, oriented to place and oriented to time HEENT normocephalic Mouth: dry mucous membranes Eyes PERRL, EOMs intact bilaterally and conjunctivae normal Neck no lymphadenopathy Resp clear to auscultation bilaterally Auscultation: diminished lung sounds Cardio regular rate, regular rhythm and no murmurs Peripheral Pulses: pulses 2+ throughout GI normal to inspection, nondistended, normoactive bowel sounds, non-tender and non-distended GI Narrative: Ileostomy in place Extremity normal to inspection Skin no rashes or lesions noted Lesions: no lesions Rashes: no rashes Trauma: no lacerations or abrasions Neuro CN's II-XII intact bilaterally, no focal motor deficits, no sensory deficits noted and deep tendon reflexes 2+ bilaterally Psych mental status grossly normal and affect normal Assessment & Plan Assessment/Plan (1) Colon obstruction: PLAN: 1. Colovesical fistula, partial colonic obstruction-management per surgery. Status post OR 06/04/2021 with exploratory laparotomy with lysis of extensive adhesions with subsequent low anterior resection of the colon with primary anastomosis and diverting right lower quadrant ileostomy. Left ureteral stenting with anterior wall repair per urology. 2. Chronic heart failure with preserved ejection fraction-echocardiogram 10/2020 with EF 55%, RVSP estimated to be 51 mmHg. Continue home medication regimen. 3. Type 2 diabetes [id number] with sliding scale insulin. Hold oral regimen. 4. Chronic kidney disease stage IIIa-stable, trend BMP. 5. CAD with history of CABG-continue aspirin, atenolol, Lasix, lisinopril. 6. PVD/PAD-history of angioplasty. Continue aspirin. Continue outpatient follow-up with vascular surgery. 7. Hyperlipidemia-statin allergy. 8. Hypertension-stable, continue current regimen. DVT prophylaxis- per surgery This patient was seen by KARUNA Oh under the supervision of Dr. Pagan. Time spent examining patient, reviewing data and subsequent management of care: 14 Minutes Documented by User: Dr. Blas Pagan, DO 06/04/21 19:59 Objective Data Lab / Micro Data Result Diagrams: 06/04/21 18:25 06/04/21 18:25 Charges/Coding Addendum Addendum: Patient was seen and examined today independently of Anabel Storey, the hospitalist service was consulted to see the patient for postop care, she underwent a diverting ileostomy today due to bowel obstruction and rectovaginal fistula. Patient has multiple medical problems including type 2 diabetes, coronary artery disease, and chronic kidney disease stage IIIb. Patient was seen in PACU, she does not appear to be in any distress at this time. On examination she appeared her stated age, she does not appear to be in any distress. Vital signs as documented. Skin warm and dry and without overt rashes. Neck without JVD, thyroid appears normal, trachea is midline, neck is supple. Lungs clear, normal air movement was noted. Heart exam notable for regular rhythm, normal sounds and absence of murmurs, rubs or gallops. Abdomen-a diverting ileostomy was noted to be present. Extremities nonedematous, no cy anosis was noted, no clubbing was noted. Neuro: Cranial nerves II through XII are grossly intact, no focal motor deficits were noted, sensation to light touch and pinprick is intact, motor exam 5/5 throughout. Psych: Patient is alert and oriented x3, she does not appear anxious or depressed, she does not appear agitated. Impression: #1 type 2 diabetes-sliding scale insulin will be used to cover the patient's glucose readings, patient's glyburide and metformin will be held at this time #2 chronic kidney disease stage IIIb-labs will be monitored, patient will be given IV fluids due to poor urine output at this time #3 coronary artery disease-patient will remain on her home medications, this is stable at this time #4 essential hypertension-patient is on amlodipine, lisinopril, and atenolol- patient is currently n.p.o., it may be necessary to administer IV blood pressure medications if needed, at this time the patient's blood pressure is low. #5 hypokalemia-labs will be monitored, patient is presently n.p.o., I have reviewed Anabel Storey's progress note including her medical a ssessment and plan of care and with the above additions endorse it. Total clinical time spent by myself addressing the patient's medical issues, reviewing the patient's medical record, and coordinating with her caregivers: 22 minutes Visit Charges Inpatient E&M: 69229 Subs Hosp L3
[2021-06-04 18:40] LABS: Hematocrit 34.4 % (37-47); Hemoglobin 11.9 g/dL (12.0-15.0); Mean Corp Hgb Conc 34.6 g/dL (32-36); Mean Corpuscular Volume 86.6 fL (81-99); Mean Platelet Vol. 9.8 fl (6.2-12.0); Platelet Count 260 K/mm3 (150-450); RBC Distribution Width CV 14.9 % (11.6-14.6); RBC Distribution Width SD 47.5 fl (35.1-43.9); Red Blood Count 3.97 M/mm3 (4.2-5.4); White Blood Count 21.1 K/mm3 (4.4-11.0)
[2021-06-04 18:51] LABS: Bedside Glucose 208 mg/dL (74-106)
[2021-06-04 18:51] LABS: Anion Gap 6 (5-15); BUN 15 mg/dL (7-18); BUN/Creat Ratio 10.2 RATIO (10-20); Calcium,Total 7.7 mg/dL (8.5-10.1); Chloride 104 mmol/L (98-107); Creatinine, Serum 1.47 mg/dL (0.55-1.02); EST Glomerular Filtration Rate 36 mL/min (>60); Est Glom Filt Rate - Afr Amer 44 mL/min (>60); Estimated Creatinine Clearance 26.36 ml/min; Glucose 176 mg/dL (74-106); Potassium 3.4 mmol/L (3.5-5.1); Sodium Level 132 mmol/L (136-145)
[2021-06-04] MEDS: 0.9% Normal Saline 1,000 ML 999 ML IV (22:11)
[2021-06-04 22:31] LABS: Bedside Glucose 144 mg/dL (74-106)
--- NOTE | 2021-06-04 22:46 | NURSING ---
Pt is lethargic, answers when spoken too. Resting with eyes closed currently. Not getting pt out of bed at this time due to drowsiness and recent low BP. Bolus infusing currently.
[2021-06-05] VITALS (44 sets, daily range): BP systolic 70–129; BP diastolic 39–63; PULSE 55–95; RESP 13–25; TEMP 35.7–36.6; O2SAT 90–100
[2021-06-05] MEDS: Lactated Ringers 1,000 ML 120 ML IV (01:50)
--- NOTE | 2021-06-05 02:59 | RAD_ITS ---
STUDY: X-RAY CHEST REASON FOR EXAM: Female, 80 years old. IV FLUID BOLUSES RECEIVED TECHNIQUE: Single AP portable view of the chest. COMPARISON: 06/05/2021. 06/04/2021. FINDINGS: The enteric tube courses inferior to the left diaphragm, its tip is not included or visualized. There are superimposed monitor leads. The aeration has worsened since previous examination with hazy opacification in the bilateral perihilar and basilar lung parenchyma without focal consolidation. There are areas of hyperinflation suggestive of post obstruction, stable mild elevation right hemidiaphragm. There is no demonstrated pleural abnormality. Sternal cerclage wires are present from a prior sternotomy. Normal mediastinum and pavel. Normal visualized pulmonary arteries. There is atherosclerotic calcification of the aortic arch with tortuosity. The spine and upper abdominal soft tissues are obscured. RAD/Chest 1 View IMPRESSION: Worsening of aeration bilateral lower lung parenchyma likely superimposed on COPD/chronic interstitial lung disease suggestive of an inflammatory or infectious etiology. Electronically Signed: Toshia Donald MD at 6:50 EDT Reading Location ID and State: , Service support ,
--- NOTE | 2021-06-05 03:00 | RAD_ITS ---
STUDY: X-RAY - ABDOMEN/PELVIS REASON FOR EXAM: Female, 80 years old. POST OP ABDOMINAL SURGERY TECHNIQUE: Two AP supine views of the abdomen and pelvis. COMPARISON: None. FINDINGS: NG tube is seen in good position, its tip is in the gastric lumen. There is an unremarkable bowel gas pattern. There is no demonstrated free abdominal air. The visualized liver, spleen and kidneys are grossly normal in size and morphology. Normal soft tissue structures. Normal visualized osseous structures. RAD/Abdomen Single View (Portable) IMPRESSION: NG tube is seen in good position, its tip is in the gastric lumen. Electronically Signed: Willis Olivares MD at 5:26 EDT ,
--- NOTE | 2021-06-05 04:23 | NURSING ---
0300: Lab called regarding STAT T&S as well as pharmacy about sending 0100 antibiotic. Both lab and pharmacy are working on labs and sending the antibiotic, and are running late d/t downtime.
--- NOTE | 2021-06-05 04:29 | PCM.PN.SRG ---
Subjective Subjective Patient is very fatigued. Falls back asleep almost instantly. Just claims that she aches all over. No specific abdominal pain. Objective Data Objective Data Vital Signs: Vital Signs Temp Pulse Resp BP Pulse Ox 96.2 F L 57 L 16 95/48 L 97 06/05/21 03:30 06/05/21 03:30 06/05/21 03:30 06/05/21 04:00 06/05/21 03:30 Oxygen Flow Rate (L/min) 2 Oxygen Delivery Method Nasal Cannula Weight: 162 lb 4.163 oz Body Mass Index (BMI) 27.8 Intake & Output: Intake and Output for Last 24 Hours 06/03/21 06/04/21 06/05/21 23:59 23:59 23:59 Intake Total 3600 / 3600 1610 / 1610 Output Total 400 / 450 150 / 150 Balance 3200 / 3150 1460 / 1460 Lab / Micro Data Result Diagrams: 06/04/21 18:25 06/04/21 18:25 Labs: Laboratory Results - last 24 hr 06/04/21 10:04: Sodium 126 L, Potassium 3.3 L, Chloride 96 L, Carbon Dioxide 22.0, Anion Gap 8, BUN 16, Creatinine 1.33 H, Estim Creat Clear Calc 29.13, Est GFR (MDRD) Af Amer 49 L, Est GFR (MDRD) Non-Af 41 L, BUN/Creatinine Ratio 12.0, Glucose 268 H, Calcium 8.3 L, Magnesium 2.4 06/04/21 10:04: Hemoglobin A1c 5.9 H 06/04/21 10:04: WBC 13.0 H, RBC 4.50, Hgb 13.3, Hct 38.2, MCV 84.9, MCH 29.6, MCHC 34.8, RDW Std Deviation 46.1 H, RDW Coeff of Monique 14.8 H, Plt Count 313, MPV 9.8, Immature Gran % (Auto) 0.800, Neut % (Auto) 66.8, Lymph % (Auto) 20.3, [place] % (Auto) 11.0 H, Eos % (Auto) 0.8, Baso % (Auto) 0.3, Absolute Neuts (auto) 8.7 H, Absolute Lymphs (auto) 2.64, Nucleated RBC % 0 06/04/21 10:10: POC Glucose 272 H 06/04/21 18:25: WBC 21.1 H, RBC 3.97 L, Hgb 11.9 L, Hct 34.4 L, MCV 86.6, MCH 30.0, MCHC 34.6, RDW Std Deviation 47.5 H, RDW Coeff of Monique 14.9 H, Plt Count 260, MPV 9.8 06/04/21 18:25: Sodium 132 L, Potassium 3.4 L, Chloride 104, Carbon Dioxide 22.0, Anion Gap 6, BUN 15, Creatinine 1.47 H, Estim Creat Clear Calc 26.36, Est GFR (MDRD) Af Amer 44 L, Est GFR (MDRD) Non-Af 36 L, BUN/Creatinine Ratio 10.2, Glucose 176 H, Calcium 7.7 L 06/04/21 18:47: POC Glucose 208 H 06/04/21 22:14: POC Glucose 144 H Radiography Diagnostic Testing: Radiology Impression Chest X-Ray 06/04/21 17:57 IMPRESSION: New small amount of right middle and lower lobe aspiration. Interval placement of NG tube with tip in the stomach. Questionable trace right pleural effusion. Chronic interstitial lung changes. Electronically Signed: Niko Zepeda MD at 18:54 EDT , Physical Exam Narrative Patient appears pale. Does not appear uncomfortable no acute distress. Resp Resp Narrative: Lungs are still clear in the apices, diminished in the bases, reasonable respiratory excursion. Cardio Cardio Narrative: Patient is still bradycardic. GI GI Narrative: Distended, quiet, nontender, HUGH draining serosanguineous material. Narrative: Urine output appears minimal dark and cloudy Extremity Extremity Narrative: Edema of the hands noted. Assessment & Plan Assessment/Plan (1) Colon obstruction: (2) Diverticulitis large intestine: QUALIFIERS: Diverticulitis bleeding: without bleeding Diverticulitis complication: with abscess Qualified Code(s): K57.20 - Diverticulitis of large intestine with perforation and abscess without bleeding (3) Colovaginal fistula: PLAN: 80-year-old female. She is required significant amount of crystalloid for pressure support. Chest x-ray now demonstrating interstitial pattern. Blood pressure only now is slowly recovering. Her morning BMP is still pending. Patient appears to have been over medicated preoperatively with multiple antihypertensives. As the effects of those medications salima her blood pressure should improve. With the disruption of her colovaginal fistula and abscess she most certainly had bacteremia and has an anticipated leukocytosis. She has recently been treated with several courses of antibiotics for suspected urinary tract infection and of course preoperatively she was on antibiotics once the colovaginal fistula was identified. She is allergic to amoxicillin and metronidazole. Current antibiotic is cefotetan with broad range coverage. I am awaiting her morning BMP. Hemoglobin currently is 9.7 consistent with the over 4.5 L of crystalloid that she is received. She did not lose much blood during the procedure I do not have any current evidence of postoperative bleeding. If her pulmonary conditions worsens then she will require potential transfer to the ICU for pharmacologic pressure support. For the moment I would leave the IV fluids running at 120 cc an hour hoping for urine response which is been very minimal. The patient presented to the hospital extraordinarily fatigued. Will encourage patient mobilization absolutely as soon as she tolerates. I will hold off on pharmacologic DVT prophylaxis due to her risk features and current ongoing complex problems. Sequential venous compression devices were initiated preoperatively. I appreciate hospitalist assistance. Loki Wilson M.D., F.A.C.S.
[2021-06-05] MEDS: 0.9% Saline Lock 10 ML Syringe IV ×2 (04:54→08:44)
[2021-06-05 05:07] LABS: Hematocrit 28.2 % (37-47); Hemoglobin 9.5 g/dL (12.0-15.0); Mean Corp Hgb Conc 33.7 g/dL (32-36); Mean Corpuscular Hgb 29.8 pg (27.0-32.0); Mean Corpuscular Volume 88.4 fL (81-99); Mean Platelet Vol. 10.1 fl (6.2-12.0); POSITIVE DIFFERENTIAL YES; Platelet Count 210 K/mm3 (150-450); RBC Distribution Width CV 15.2 % (11.6-14.6); RBC Distribution Width SD 48.7 fl (35.1-43.9); Red Blood Count 3.19 M/mm3 (4.2-5.4); White Blood Count 27.5 K/mm3 (4.4-11.0)
[2021-06-05 05:10] LABS: Scan Indicated on CBC? Y/N NO
[2021-06-05 05:54] LABS: Anion Gap 7 (5-15); BUN 17 mg/dL (7-18); BUN/Creat Ratio 13.3 RATIO (10-20); Calcium,Total 6.9 mg/dL (8.5-10.1); Chloride 107 mmol/L (98-107); Creatinine, Serum 1.28 mg/dL (0.55-1.02); EST Glomerular Filtration Rate 43 mL/min (>60); Est Glom Filt Rate - Afr Amer 52 mL/min (>60); Estimated Creatinine Clearance 30.27 ml/min; Glucose 140 mg/dL (74-106); Potassium 3.1 mmol/L (3.5-5.1); Sodium Level 134 mmol/L (136-145)
--- NOTE | 2021-06-05 07:11 | NURSING ---
Gave report to Rhonda Hawkins RN. Took pt and belongings up to ICU room 3 and assisted w/ getting pt settled. Samantha MASTER BARBER spoke w/ daughter Xochilt on phone regarding tx to ICU. Xochilt requesting more information regarding ICU tx, gave information to PECAN CLEANER to call her w/ an update once she gets settled.
[2021-06-05 07:43] LABS: Hematocrit 27.7 % (37-47); Hemoglobin 9.7 g/dL (12.0-15.0)
[2021-06-05 08:02] LABS: Bedside Glucose 137 mg/dL (74-106)
[2021-06-05 08:26] LABS: Lactic Acid 1.7 mmol/L (0.4-1.9)
[2021-06-05] MEDS: Lactated Ringers 1,000 ML 150 ML IV (08:43)
[2021-06-05] MEDS: Potassium Chloride 10mEq/100mL 10 MEQ/100 ML IV.SOLN. 100 MEQ IV BOLUS ×4 (08:44→12:27)
--- NOTE | 2021-06-05 09:20 | CON.PCM.CC_ITS ---
Assessment & Plan Assessment/Plan (1) Colovaginal fistula: (2) Colon obstruction: (3) Type 2 diabetes mellitus: (4) CKD (chronic kidney disease), stage III: QUALIFIERS: Chronic kidney disease stage 3 subtype: stage 3a (GFR 45-59) Qualified Code(s): N18.31 - Chronic kidney disease, stage 3a PLAN: RECOMMENDATIONS: 1. Fluid boluses as tolerated by oxygenation 2. Place central line for labs and potential pressors 3. Keep oxygen saturations between 90 and 95% 4. Recheck electrolytes and H&H in 8 hours 5. Continue antibiotics as ordered IMPRESSIONS: 1. Colonic obstruction/colovesical fistula status post open laparotomy with ileostomy POD #1 Patient continues to have significant HUGH drainage and leukocytosis. There was some concern for significant atherosclerotic disease of abdominal vessels, so will attempt to avoid pressors if possible. Patient will continue to receive fluid boluses as necessary, but if oxygen is required, pressors will need to be initiated. Patient with decent urine output at this time. Patient is on a ntibiotics. Patient has had instrumentation recently and may have an element of bacteremia. Previous echocardiogram did show preserved ejection fraction. Patient will likely have a central line placed later this morning to facilitate intervention if necessary. Review of imaging does not show any significant free air. Patient does not have an acute abdomen at this time. 2. 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 Patient's oxygenation is doing well at this time. Anticipate significant third spacing, but as long as oxygen is not required patient will likely do okay and diurese af ter acute systemic inflammatory response is resolved. 3. Hypotension Unclear etiology. Patient has had several surgical interventions recently. Patient is also on antihypertensives at baseline. These have been held. Patient is not tachycardic with hypotension, but this may be secondary to atenolol. Sepsis would be a concern. Cultures have been ordered. Patient is on antibiotics. 4. PVD/PAD/CAD/hyperlipidemia/hypertension/type 2 diabetes mellitus/CKD stage IIIa/hypokalemia Complicates care, management, recovery and prognosis. Electrolyte repletion has been ordered. Antihypertensive regimen has been held secondary to problem #3. Patient has not tolerated statins in the past. Patient does have a history of angioplasty. If pressors are required, patient will be at risk for ischemic complications. Will attempt to use fluid boluses as possible TIME: 32 minutes critical care time spent addressing patient's hypotension, CHF, PVD, recent surgery, review of all data and collaboration with care team HPI Consult Data Date of Consult: 06/05/21 HPI Narrative HPI Narrative: DARREN SANDOVAL is an 80 F, with past medical history listed below, who presented to [facility] on 06/04/[address] CT of the abdomen. Patient had complained of a vaginal discharge was treated 3 weeks prior to presentation with antibiotics for presumed UTI. This did not clear promptly and patient additionally noted some stool to be seeping from the vagina, so there was some concern for a colovesicular fistula. Patient did have a previous open cholecystectomy and total hysterectomy in the past. Patient also has extensive coronary history with a quadruple bypass 5 years ago. Patient was ultimately admitted and underwent a colonoscopy. During colonoscopy, patient was noted to have chronic diverticulitis with fistula formation. Patient then went for an exploratory laparotomy with lysis of adhesions, resection of the colon with primary anastomosis and diverting right lower quadrant ileostomy. Patient also received temporary right ureteral stent, left ureteral stent and anterior wall repair per Dr. Hobson. Patient was transferred back to the floor after reported relatively benign surgical course and acute blood loss of approximately 200 cc. While in the PCU overnight, patient has had marginal blood pressures. Patient has been noted to have consistent drainage of the HUGH drain of approximately 50 cc of serosanguineous fluid every hour. Patient reports some abdominal discomfort, but no nausea or vomiting. Patient does have an NG in place and is tolerating this well. Patient is not reporting any chest pain. No significant bleeding has been noted out of the HUGH drain or NG. Patient reports she does have a pale complexion at baseline. Patient has received antibiotics and there is been no signs of neck, lip or tongue swelling. No rashes have been noted. Patient is currently on room air and tolerating well. Blood pressures have been marginal. Surgery had reported that there was concern for calcification of abdominal arteries and that ischemic colitis would be a concern if pressors were required. Patient has received an additional fluid bolus and tolerated this well. Patient does have multiple allergies Review of systems otherwise negative from a constitutional, HEENT, respiratory, cardiovascular, GI, genitourinary, musculoskeletal, skin, neurologic, psychiatric and hematologic system unless stated above. [facility] Medical History Abdominal pain Arthritis Back pain Bilateral leg pain Breast lump in female Cardiology follow-up encounter Cataracts, bilateral CKD (chronic kidney disease) Colovesical fistula Controlled type 2 diabetes mellitus with hyperglycemia Delayed wound healing Diabetes Dietary restriction Diverticulosis Heart failure High blood pressure High cholesterol History of diverticulitis History of echocardiogram History of edema History of heart attack Kidney stones Loss of hearing Non-smoker Open wound Osteoarthritis Peripheral arterial disease Rheumatoid arthritis Shortness of breath on exertion Type 2 diabetes mellitus with diabetic polyneuropathy Ulcer of right foot with necrosis of bone Ulcer of right lower extremity with muscle involvement without evidence of necrosis Unspecified protein-calorie malnutrition Wears glasses Home Medications glyburide 5 mg PO DAILY@0800 08/26/15 [History Last Taken 11/01/20] metformin 500 mg PO TIDCM 08/26/15 [History Last Taken 11/01/20] ascorbic acid (vitamin C) 500 mg PO DAILY@1200 12/09/16 [History Last Taken 11/01/20] atenolol 50 mg PO BID 12/09/16 [History Last Taken 11/01/20] cholecalciferol (vitamin D3) 1,000 unit PO DAILY@1200 12/09/16 [History Last Taken 11/01/20] cyanocobalamin (vitamin B-12) 1,000 mcg PO DAILY@1200 12/09/16 [History Last Ta jose 11/01/20] multivitamin 1 ea PO DAILY@1200 12/09/16 [History Last Taken 11/01/20] omega-3 fatty acids-fish oil 1 cap PO BID 12/09/16 [History Last Taken 05/31/21] aspirin 81 mg PO DAILY 06/11/17 [History Last Taken 05/31/21] magnesium oxide 400 mg PO DAILY@1200 03/01/20 [History Last Taken 11/01/20] amlodipine 10 mg PO DAILY 09/29/20 [History Last Taken 11/01/20] furosemide 40 mg PO DAILY 05/31/21 [History Last Taken Unknown] lisinopril 30 mg PO DAILY 05/31/21 [History Last Taken Unknown] Allergy/AdvReac Type Severity Reaction Status Date / Time adhesive Allergy Unknown Verified 06/04/21 10:15 bacitracin zinc Allergy Rash Verified 06/04/21 10:15 [From Neosporin ([id number])] metronidazole Allergy ALLERGY Verified 06/04/21 10:15 neomycin sulfate Allergy Rash Verified 06/04/21 10:15 [From Neosporin ([id number])] polymyxin B Allergy Rash Verified 06/04/21 10:15 [From Neosporin ([id number])] prednisolone acetate, Allergy ALLERGY Verified 06/04/21 10:15 micronized simvastatin Allergy ALLERGY Verified 06/04/21 10:15 tramadol [From Ultram] Allergy ALLERGY Verified 06/04/21 10:15 amoxicillin [From Augmentin] AdvReac Nausea/Vom/ Verified 06/04/21 10:15 Diarrhea atorvastatin calcium AdvReac Pain in Verified 06/04/21 10:15 [From Lipitor] joints clavulanic acid AdvReac Nausea/Vom/ Verified 06/04/21 10:15 [From Augmentin] Diarrhea fenofibrate nanocrystallized AdvReac Upset Verified 06/04/21 10:15 [From Tricor] Stomach flurbiprofen AdvReac Upset Verified 06/04/21 10:15 Stomach gemfibrozil AdvReac Upset Verified 06/04/21 10:15 Stomach glipizide [From Glucotrol] AdvReac Upset Verified 06/04/21 10:15 Stomach pravastatin AdvReac Pain in Verified 06/04/21 10:15 joints Family History Mother Diabetes Father Hypertension CVA (cerebral vascular accident) Brother Lung cancer Sister Breast cancer COPD (chronic obstructive pulmonary disease) Surgical History History of appendectomy History of cholecystectomy History of heart bypass surgery History of knee replacement Hx of colonoscopy S/P hysterectomy Social History household members: family housing: house Smoking Status: Never smoker alcohol intake: current alcohol intake frequency: other substance use type: does not use additional social history: USES ASPIRIN ROS ROS Narrative See HPI Physical Exam Const oriented x3 and no apparent distress Constitutional Narrative: Drowsy, but opens eyes and interacts appropriately Orientation / Consciousness: oriented to person, oriented to place and oriented to time HEENT normocephalic HEENT Narrative: NG in place Mouth: dry mucous membranes Eyes PERRL, EOMs intact bilaterally and conjunctivae normal Neck no lymphadenopathy Chest inspection of chest normal Chest: symmetrical chest wall rise; Negative for crepitus Resp clear to auscultation bilaterally Auscultation: diminished lung sounds; Negative for rales, rhonchi or wheezes Cardio regular rate, regular rhythm and no murmurs Peripheral Pulses: pulses 2+ throughout GI non-distended GI Narrative: Ileostomy clean, dry and intact. HUGH drain with serosanguineous fluid Palpation: soft and tender; Negative for guarding or rigid Extremity normal to inspection and no clubbing, cyanosis or edema Skin no rashes or lesions noted Lesions: no lesions Rashes: no rashes Trauma: no lacerations or abrasions Neuro CN's II-XII intact bilaterally, no focal motor deficits, no sensory deficits noted and deep tendon reflexes 2+ bilaterally Psych mental status grossly normal and affect normal Lab / Micro Data Result Diagrams: 06/05/21 04:36 06/05/21 04:36 Labs: Laboratory Results - last 24 hr 06/04/21 10:04: Sodium 126 L, Potassium 3.3 L, Chloride 96 L, Carbon Dioxide 22.0, Anion Gap 8, BUN 16, Creatinine 1.33 H, Estim Creat Clear Calc 29.13, Est GFR (MDRD) Af Amer 49 L, Est GFR (MDRD) Non-Af 41 L, BUN/Creatinine Ratio 12.0, Glucose 268 H, Calcium 8.3 L, Magnesium 2.4 06/04/21 10:04: Hemoglobin A1c 5.9 H 06/04/21 10:04: WBC 13.0 H, RBC 4.50, Hgb 13.3, Hct 38.2, MCV 84.9, MCH 29.6, MCHC 34.8, RDW Std Deviation 46.1 H, RDW Coeff of Monique 14.8 H, Plt Count 313, MPV 9.8, Immature Gran % (Auto) 0.800, Neut % (Auto) 66.8, Lymph % (Auto) 20.3, [place] % (Auto) 11.0 H, Eos % (Auto) 0.8, Baso % (Auto) 0.3, Absolute Neuts (auto) 8.7 H, Absolute Lymphs (auto) 2.64, Nucleated RBC % 0 06/04/21 10:10: POC Glucose 272 H 06/04/21 18:25: WBC 21.1 H, RBC 3.97 L, Hgb 11.9 L, Hct 34.4 L, MCV 86.6, MCH 30.0, MCHC 34.6, RDW Std Deviation 47.5 H, RDW Coeff of Monique 14.9 H, Plt Count 260, MPV 9.8 06/04/21 18:25: Sodium 132 L, Potassium 3.4 L, Chloride 104, Carbon Dioxide 22.0, Anion Gap 6, BUN 15, Creatinine 1.47 H, Estim Creat Clear Calc 26.36, Est GFR (MDRD) Af Amer 44 L, Est GFR (MDRD) Non-Af 36 L, BUN/Creatinine Ratio 10.2, Glucose 176 H, Calcium 7.7 L 06/04/21 18:47: POC Glucose 208 H 06/04/21 22:14: POC Glucose 144 H 06/05/21 00:10: Hgb 9.7 L, Hct 27.7 L 06/05/21 04:36: WBC 27.5 H, RBC 3.19 L, Hgb 9.5 L, Hct 28.2 L, MCV 88.4, MCH 29.8, MCHC 33.7, RDW Std Deviation 48.7 H, RDW Coeff of Monique 15.2 H, Plt Count 210, MPV 10.1 06/05/21 04:36: Sodium 134 L, Potassium 3.1 L, Chloride 107, Carbon Dioxide 20.0 L, Anion Gap 7, BUN 17, Creatinine 1.28 H, Estim Creat Clear Calc 30.27, Est GFR (MDRD) Af Amer 52 L, Est GFR (MDRD) Non-Af 43 L, BUN/Creatinine Ratio 13.3, Glucose 140 H, Calcium 6.9 L 06/05/21 04:36: Blood Type A POSITIVE, Antibody Screen NEGATIVE, Crossmatch See Detail 06/05/21 06:44: POC Glucose 137 H 06/05/21 07:50: Lactic Acid 1.7 Micro: Microbiology 06/04/21 Unknown Pelvic Abcess Gram Stain - Final Radiology Impression Chest X-Ray 06/04/21 17:57 IMPRESSION: New small amount of right middle and lower lobe aspiration. Interval placement of NG tube with tip in the stomach. Questionable trace right pleural effusion. Chronic interstitial lung changes. Electronically Signed: Niko Zepeda MD at 18:54 EDT , Chest X-Ray 06/05/21 02:59 IMPRESSION: Worsening of aeration bilateral lower lung parenchyma likely superimposed on COPD/chronic interstitial lung disease suggestive of an inflammatory or infectious etiology. Electronically Signed: Toshia Donald MD at 6:50 EDT , KUB X-Ray 06/05/21 03:00 IMPRESSION: NG tube is seen in good position, its tip is in the gastric lumen. Electronically Signed: Willis Olivares MD at 5:26 EDT , Charges/Coding Procedures Hospitalists Procedures: [id number] [facility] 1st Hr
--- NOTE | 2021-06-05 10:43 | WOUNDNOTE ---
Discussed ostomy care with and daughter Xochilt. oXchilt states that her sister Kaitlyn is the one who will be doing most of the care as she lives in the same house. plan is for Kaitlyn to come in for ostomy appliance change on 06/07/21. dicussed with FLOR Mena may need to make an exception to the visiting restrictions in this case.
--- NOTE | 2021-06-05 10:53 | PCM.HOSP.N ---
Hospitalist Note Patient transferred to ICU. CCM consulted. Will follow peripherally while in ICU.
[2021-06-05 11:26] LABS: Bedside Glucose 133 mg/dL (74-106)
--- NOTE | 2021-06-05 11:42 | NURSING ---
Erica Linda, at bedside for central line placement.
--- NOTE | 2021-06-05 11:48 | WOUNDNOTE ---
wound photo: abdomen
--- NOTE | 2021-06-05 11:57 | RAD_ITS ---
STUDY: X-RAY CHEST REASON FOR EXAM: Female, 80 years old. central line placement TECHNIQUE: Single AP portable view of the chest. COMPARISON: 06/04/2021 FINDINGS: Interval placement right ventricular deep venous alignment of the catheter overlying the superior vena cava and no pneumothorax. Nasogastric tube which is unchanged. Status post median sternotomy. The lungs are clear and expanded. There is no demonstrated pleural abnormality. Normal size heart. Normal mediastinum and pavel. Normal visualized pulmonary arteries. Normal visualized aortic arch and descending thoracic aorta. Normal visualized thoracic spine. Normal visualized ribs, clavicles, and shoulders. There is no demonstrated abnormality of the visualized soft tissue structures of the upper abdomen. RAD/CXR for Line Placement IMPRESSION: 1. Interval placement of right internal jugular deep venous alignment of the catheter overlying the superior vena cava no pneumothorax. 2. Nasogastric tube which is unchanged. 3. No active pulmonary disease. Electronically Signed: Roel Perez MD at 13:08 EDT ,
--- NOTE | 2021-06-05 12:06 | PCM.OP.BLANK ---
Operative Report Date of Procedure: 06/05/21 Central line placement procedure note Indication: IV access/hemodynamic instability/vasoactive medications Procedure: A time-out was completed to verify correct patient, indication, medication allergies, procedure, coagulation studies, informed consent signed, and equipment needed. The patient was placed in the supine position for a central line placement to the rt IJ vein. The patients rt neck was prepped using chlorhexidine and a full body sterile drape was applied. 1% lidocaine was used to anesthetize the surrounding skin. A 7fr 16 cm blue guard triple lumen catheter introduced into the internal jugular vein using the modified Seldinger technique with the assistance of ultrasound. The catheter was threaded smoothly over the guidewire, the guidewire was removed easily, nonpulsatile blood returned. All ports were aspirated of air and flushed with sterile saline. The catheter was sutured in place and covered with an occlusive dressing impregnated with chlorhexidine. Post-procedure: The patient tolerated the procedure well. Vital signs remained stable. EBL 3cc. No complications. Chest X Ray ordered to confirm tip placement and the absence of pneumothorax. Procedures Hospitalists Procedures: [id number] Insert Non-tunnel CV Cath
[2021-06-05 14:38] LABS: Hematocrit 25.7 % (37-47); Hemoglobin 8.7 g/dL (12.0-15.0)
[2021-06-05 14:58] LABS: Anion Gap 6 (5-15); BUN 17 mg/dL (7-18); BUN/Creat Ratio 11.3 RATIO (10-20); Calcium,Total 6.9 mg/dL (8.5-10.1); Chloride 106 mmol/L (98-107); EST Glomerular Filtration Rate 36 mL/min (>60); Est Glom Filt Rate - Afr Amer 43 mL/min (>60); Estimated Creatinine Clearance 25.83 ml/min; Glucose 138 mg/dL (74-106); Potassium 3.8 mmol/L (3.5-5.1); Sodium Level 133 mmol/L (136-145)
--- NOTE | 2021-06-05 15:04 | CASEMGMT ---
FLOR DOMINGO Assessment: Face to Face with pt for initial transition planning/care coordination assessment. FLOR DOMINGO introduced self and role at [facility], pt voices understanding and consents to assessment. Pt is A/O x4 and answers all questions appropriately at this time. Pt sitting up in chair in no distress. Care providers, pharmacy, and demographics verified/updated. Pt states the [phone] phone number goes to a building phone that is shared with the neighbors. [phone] is her daughter's phone that she lives with. Admitting Dx: Colovaginal fistula PCP:Makenna Specialists: Pt had for cardio but has not seen anyone since he retired; Katie, gen surgeon; Dolores, pod Preferred Pharmacy: [facility] Retail Insurance: [facility] Package Plan, Kurt Aid Prescription Benefit: no LW/HPOA: Pt denies having a LW/DPOA and denies need for info regarding AD. LNOK: Kaitlyn Walton, nito; Xochilt Noble dtr Living Arrangements: Pt lives with dtr Kaitlyn and her in a single story house with no steps to enter. Pt states there is a separate part of the house above the garage that is entered from the garage but she does not use it. Pt reports she is I in ADL's prior to hospitalization and uses a cane. Transportation: Pt nito Lemon provides transportation. DME/HHC/SNF: Pt has a cane, walker, w/c, walk in tub and grab bars in the bathroom. Pt has a BGM with supplies. She states she checks her blood sugar twice daily. Pt has had [facility] in the past and denies SNF stays. Pt had her great toe amputated in Oct on her right foot d/t nonhealing ulcer. She states she was just released from the [facility] last week as her ankle wound has healed. Pt states no further concerns/needs. CM to follow. Advised pt to ask CM if any further question/concerns/needs arise, voices understanding. Pt Goal: TBD pending course of stay Plan: TBD pending course of stay
--- NOTE | 2021-06-05 15:32 | CHAPLAIN ---
Type of Pastoral Visit _x__ Initial Visit ___ Follow-up Visit ___ On-call Visit ___ General Patient Visit ___ Spiritual Assessment ___ Family Conference ___ Bereavement ___ Rapid Response ___ Code Blue ___ Other (describe below) Pastoral Care Referral From ___ Patient ___ Family _x__ Nurse ___ Physician ___ Relationship Banker ___ Grain Commodity Manager _x__ Other (describe below) Sacrament/Intervention _x__ Active listening ___ Anointing ___ Muslim ___ Bereavement ___ Communion ___ Trish exploration ___ ___ Life review _x__ Prayer ___ Reconciliation ___ Sacrament of Sick _x__ Supportive presence ___ Wedding ___ Other (describe below) Pastoral Comments Rn and Kurt Liaison request visit for this patient; pt is sitting up in chair but napping; pt awakes easily and can answer questions; pt is not concerned or worried as she expresses thanks for her daughters who care for her needs; pt says I am 80 and have lived a blessed life; pt does welcome prayer support and would welcome support for family when they are back to visit
[2021-06-05 17:26] LABS: Bedside Glucose 123 mg/dL (74-106)
[2021-06-05] MEDS: Menthol/Lanolin/Calamine/Znox 113 GM Tube 1 APPLIC TOPICAL ×2 (17:26→20:19)
[2021-06-05] MEDS: Acetaminophen 650 MG/20 ML UDC 1000 MG GT ×2 (17:28→23:53)
[2021-06-05] MEDS: Lactated Ringers 500 ML 999 ML IV (18:08)
[2021-06-05] MEDS: Insulin Lispro 100 UNIT/ML INSULN.PEN SC (20:26)
[2021-06-05 20:36] LABS: Bedside Glucose 167 mg/dL (74-106)
[2021-06-06] VITALS (46 sets, daily range): BP systolic 77–125; BP diastolic 40–81; PULSE 65–87; RESP 13–22; TEMP 36.3–37.1; O2SAT 92–100
[2021-06-06] MEDS: Acetaminophen 650 MG/20 ML UDC 1000 MG GT (05:11)
[2021-06-06] MEDS: Menthol/Lanolin/Calamine/Znox 113 GM Tube 1 APPLIC TOPICAL ×3 (05:11→21:10)
[2021-06-06 05:15] LABS: Absolute Lymphocyte Count 3.61 X10^3/uL (0.83-4.51); Absolute Neutrophil Count 17.1 X10^3/uL (2.0-7.7); Basophil# 0.03 X10^3/uL; Basophil% 0.1 % (0-1); Eosinophil# 0.13 X10^3/uL; Eosinophils% 0.5 % (0-5); Hemoglobin 9.5 g/dL (12.0-15.0); Lymphocyte # 3.61 X10^3/ul (0.83-4.51); Lymphocyte % 14.8 % (19-41); Mean Corp Hgb Conc 35.2 g/dL (32-36); Mean Corpuscular Hgb 30.4 pg (27.0-32.0); Mean Corpuscular Volume 86.5 fL (81-99); Mean Platelet Vol. 9.8 fl (6.2-12.0); Monocyte# 3.26 X10^3/uL; Monocyte% 13.4 % (0-10); NRBC Flagged by Analyzer 0 % (0-5); Neutrophil # 17.09 X10^3/uL (2.7-7.7); Neutrophil % 70.3 % (47-70); POSITIVE DIFFERENTIAL YES; Platelet Count 281 K/mm3 (150-450); RBC Distribution Width CV 15.9 % (11.6-14.6); RBC Distribution Width SD 49.5 fl (35.1-43.9); Red Blood Count 3.12 M/mm3 (4.2-5.4); White Blood Count 24.4 K/mm3 (4.4-11.0)
[2021-06-06 05:18] LABS: Differential Indicated SCAN CRITERIA MET
[2021-06-06 05:28] LABS: Anion Gap 6 (5-15); BUN 19 mg/dL (7-18); BUN/Creat Ratio 12.7 RATIO (10-20); Calcium,Total 7.1 mg/dL (8.5-10.1); Chloride 108 mmol/L (98-107); EST Glomerular Filtration Rate 36 mL/min (>60); Est Glom Filt Rate - Afr Amer 43 mL/min (>60); Estimated Creatinine Clearance 25.83 ml/min; Glucose 162 mg/dL (74-106); Sodium Level 137 mmol/L (136-145)
--- NOTE | 2021-06-06 05:39 | PCM.PN.SRG ---
Subjective Subjective Patient states that she feels much stronger. She has evacuated much of her preop bowel prep that was within her colon which was obstructed by her diverticular disease and colovaginal inflammation. She states that she hears and feels bowel activity. No nausea. Her pain is easily controlled with Tylenol. Objective Data Objective Data Vital Signs: Vital Signs Temp Pulse Resp BP Pulse Ox 98.1 F 75 17 106/59 L 100 06/06/21 04:00 06/06/21 04:00 06/06/21 04:00 06/06/21 04:00 06/06/21 04:00 Oxygen Flow Rate (L/min) 2 Oxygen Delivery Method Nasal Cannula Weight: 162 lb 0.636 oz Body Mass Index (BMI) 27.8 Intake & Output: Intake and Output for Last 24 Hours 06/04/21 06/05/21 06/06/21 23:59 23:59 23:59 Intake Total 3600 / 3600 4934.77 / 4944.17 293.0 / 293.0 Output Total 400 / 450 1425 / 1425 Balance 3200 / 3150 3509.77 / 3519.17 293.0 / 293.0 Lab / Micro Data Result Diagrams: 06/06/21 05:10 06/06/21 05:10 Labs: Laboratory Results - last 24 hr 06/05/21 00:10: Hgb 9.7 L, Hct 27.7 L 06/05/21 04:36: Sodium 134 L, Potassium 3.1 L, Chloride 107, Carbon Dioxide 20.0 L, Anion Gap 7, BUN 17, Creatinine 1.28 H, Estim Creat Clear Calc 30.27, Est GFR (MDRD) Af Amer 52 L, Est GFR (MDRD) Non-Af 43 L, BUN/Creatinine Ratio 13.3, Glucose 140 H, Calcium 6.9 L 06/05/21 04:36: Blood Type A POSITIVE, Antibody Screen NEGATIVE, Crossmatch See Detail 06/05/21 06:44: POC Glucose 137 H 06/05/21 07:50: Lactic Acid 1.7 06/05/21 11:11: POC Glucose 133 H 06/05/21 14:25: Hgb 8.7 L, Hct 25.7 L 06/05/21 14:25: Sodium 133 L, Potassium 3.8, Chloride 106, Carbon Dioxide 21.0, Anion Gap 6, BUN 17, Creatinine 1.50 H, Estim Creat Clear Calc 25.83, Est GFR (MDRD) Af Amer 43 L, Est GFR (MDRD) Non-Af 36 L, BUN/Creatinine Ratio 11.3, Glucose 138 H, Calcium 6.9 L 06/05/21 17:18: POC Glucose 123 H 06/05/21 20:21: POC Glucose 167 H 06/06/21 05:10: WBC 24.4 H, RBC 3.12 L, Hgb 9.5 L, Hct 27.0 L, MCV 86.5, MCH 30.4, MCHC 35.2, RDW Std Deviation 49.5 H, RDW Coeff of [place] 15.9 H, Plt Count 281, MPV 9.8, Immature Gran % (Auto) 0.900, Neut % (Auto) 70.3 H, Lymph % (Auto) 14.8 L, [place] % (Auto) 13.4 H, Eos % (Auto) 0.5, Baso % (Auto) 0.1, Absolute Neuts (auto) 17.1 H, Absolute Lymphs (auto) 3.61, Nucleated RBC % 0 06/06/21 05:10: Sodium 137, Potassium 3.0 L, Chloride 108 H, Carbon Dioxide 23.0, Anion Gap 6, BUN 19 H, Creatinine 1.50 H, Estim Creat Clear Calc 25.83, Est GFR (MDRD) Af Amer 43 L, Est GFR (MDRD) Non-Af 36 L, BUN/Creatinine Ratio 12.7, Glucose 162 H, Calcium 7.1 L Micro: Microbiology 06/04/21 Unknown Pelvic Abcess Gram Stain - Final 06/04/21 Unknown Pelvic Abcess Wound Culture - Preliminary Gram negative ryan Radiography Diagnostic Testing: Radiology Impression Chest X-Ray 06/05/21 02:59 IMPRESSION: Worsening of aeration bilateral lower lung parenchyma likely superimposed on COPD/chronic interstitial lung disease suggestive of an inflammatory or infectious etiology. Electronically Signed: Toshia Donald MD at 6:50 EDT Reading Location ID and State: , Service support , KUB X-Ray 06/05/21 03:00 IMPRESSION: NG tube is seen in good position, its tip is in the gastric lumen. Electronically Signed: Willis Olivares MD at 5:26 EDT , Chest X-Ray 06/05/21 11:57 IMPRESSION: 1. Interval placement of right internal jugular deep venous alignment of the catheter overlying the superior vena cava no pneumothorax. 2. Nasogastric tube which is unchanged. 3. No active pulmonary disease. Electronically Signed: Roel Perez MD at 13:08 EDT , Physical Exam Narrative Patient is very much alert. Much more so than yesterday. She appears slightly rested. She is in good spirits. Const no apparent distress Resp normal respiratory effort Cardio regular rate GI GI Narrative: Soft, notably decompressed over preoperatively and perioperatively. Ileostomy viable right lower quadrant. Copious serosanguineous drainage within the HUGH left lower quadrant. Bowel sounds present. Nontender Extremity General Extremity: edema Assessment & Plan Assessment/Plan (1) Colovaginal fistula: (2) Colon obstruction: (3) Diverticulitis large intestine: QUALIFIERS: Diverticulitis bleeding: without bleeding Diverticulitis complication: with abscess Qualified Code(s): K57.20 - Diverticulitis of large intestine with perforation and abscess without bleeding PLAN: At this point in her postoperative course she will start to mobilize significant amount of her third space fluids. I will assist with potassium replacement and provide extraordinarily small dose of furosemide in order to further stimulate diuresis. Her third space fluids will place her at increased risk for increased venous return and right atrial stretch and atrial fibrillation and CHF. The patient's peripheral IV fluids have been ceased. She did require the initiation of Levophed for blood pressure support. Ileostomy is not yet functioning however NG tube return appears benign. We will remove the ngt and start clear liquids and nutritional supplement. Physical therapy consult to assist with patient mobilization as she tolerates. Discharge planning should be initiated Hemoglobin is stable and simply reflects hemodilution. Blood loss during surgery was quite minimal and there is been no evidence of postoperative loss. Urine output is starting to clear and improve. Loki Wilson M.D., F.A.C.S.
[2021-06-06 05:58] LABS: Differential Comment SCANNED
[2021-06-06] MEDS: Potassium Chloride 20mEq/100mL 20 MEQ/100 ML IV.SOLN. 100 MEQ IV BOLUS ×2 (06:28→08:03)
--- NOTE | 2021-06-06 06:45 | NURSING ---
0630- NG removed. Patient tolerated very well. Denies any further needs at this time. Will continue to monitor.
[2021-06-06] MEDS: TITRATION PARAMETER CHANGE 1 EACH IV (08:05)
[2021-06-06 08:11] LABS: Bedside Glucose 143 mg/dL (74-106)
--- NOTE | 2021-06-06 08:27 | PCM.PN.INT ---
Assessment & Plan Assessment/Plan (1) Colovaginal fistula: (2) Colon obstruction: (3) Type 2 diabetes mellitus: (4) CKD (chronic kidney disease), stage III: QUALIFIERS: Chronic kidney disease stage 3 subtype: stage 3a (GFR 45-59) Qualified Code(s): N18.31 - Chronic kidney disease, stage 3a PLAN: RECOMMENDATIONS: 1. Hold on diuretics while on pressors 2. Aggressive potassium repletion 3. Keep oxygen saturations between 90 and 95% 4. Possibly recheck K later today 5. Continue antibiotics as ordered IMPRESSIONS: 1. Colonic obstruction/colovesical fistula status post open laparotomy with ileostomy POD #2 Patient continues to have significant HUGH drainage and leukocytosis. There was some concern for significant atherosclerotic disease of abdominal vessels, so will attempted to avoid pressors. Patient's physical exam is appears to be much improved compared to previous. Patient's HUGH drainage is much improved compared to yesterday. Patient did have decent urine output overnight. NG has been removed by surgery and patient appears to be tolerating this well. 2. 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 Patient's oxygenation is doing well at this time. Anticipate significant third spacing, but as long as oxygen is not required patient will likely do okay and diurese after acute systemic inflammatory response is resolved. 3. Sepsis secondary to problem #1 Patient appears to be doing well at this time. Patient blood pressure has been doing well on low-dose pressors. We will continue to wean off. We will hold on diuretics for now. Patient may need a change in antibiotic regimen pending sensitivities, but appears to be improving on the current regimen. 4. PVD/PAD/CAD/hyperlipidemia/hypertension/type 2 diabetes mellitus/CKD stage IIIa/hypokalemia Complicates care, management, recovery and prognosis. Electrolyte repletion has been ordered. Antihypertensive regimen has been held secondary to problem #3. Likely reinitiate antihypertensives in a stepwise fashion once off pressors. Patient has not tolerated statins in the past. Patient does have a history of angioplasty. No findings suggestive of ischemic complications despite pressors. TIME: 31 minutes critical care time spent addressing patient's hypotension, CHF, PVD, recent surgery, review of all data and collaboration with care team Subjective Subjective Patient did not respond to a fluid bolus yesterday and ultimately had to be started on Levophed. Patient did well overnight with no acute issues. Patient states her pain is better today. Patient did have a bowel movement. Nursing is reporting decreased HUGH drain volume. Patient did have her NG removed this morning. Patient is back on room air. Objective Data Objective Data Vital Signs: Vital Signs Temp Pulse Resp BP Pulse Ox 36.9 C 76 17 115/60 97 06/06/21 08:00 06/06/21 08:00 06/06/21 08:00 06/06/21 08:00 06/06/21 08:00 Oxygen Flow Rate (L/min) 2 Oxygen Delivery Method Room Air Weight: 73.5 kg Body Mass Index (BMI) 27.8 Intake & Output: Intake and Output for Last 24 Hours 06/04/21 06/05/21 06/06/21 23:59 23:59 23:59 Intake Total 3600 / 3600 4934.77 / 4944.17 574.6 / 574.6 Output Total 400 / 450 1425 / 1425 550 / 550 Balance 3200 / 3150 3509.77 / 3519.17 24.6 / 24.6 Lab / Micro Data Result Diagrams: 06/06/21 05:10 06/06/21 05:10 Labs: Laboratory Results - last 24 hr 06/05/21 11:11: POC Glucose 133 H 06/05/21 14:25: Hgb 8.7 L, Hct 25.7 L 06/05/21 14:25: Sodium 133 L, Potassium 3.8, Chloride 106, Carbon Dioxide 21.0, Anion Gap 6, BUN 17, Creatinine 1.50 H, Estim Creat Clear Calc 25.83, Est GFR (MDRD) Af Amer 43 L, Est GFR (MDRD) Non-Af 36 L, BUN/Creatinine Ratio 11.3, Glucose 138 H, Calcium 6.9 L 06/05/21 17:18: POC Glucose 123 H 06/05/21 20:21: POC Glucose 167 H 06/06/21 05:10: WBC 24.4 H, RBC 3.12 L, Hgb 9.5 L, Hct 27.0 L, MCV 86.5, MCH 30.4, MCHC 35.2, RDW Std Deviation 49.5 H, RDW Coeff of Monique 15.9 H, Plt Count 281, MPV 9.8, Immature Gran % (Auto) 0.900, Neut % (Auto) 70.3 H, Lymph % (Auto) 14.8 L, [place] % (Auto) 13.4 H, Eos % (Auto) 0.5, Baso % (Auto) 0.1, Absolute Neuts (auto) 17.1 H, Absolute Lymphs (auto) 3.61, Nucleated RBC % 0, Differential Comment SCANNED, Diff Path Review May foll 06/06/21 05:10: Sodium 137, Potassium 3.0 L, Chloride 108 H, Carbon Dioxide 23.0, Anion Gap 6, BUN 19 H, Creatinine 1.50 H, Estim Creat Clear Calc 25.83, Est GFR (MDRD) Af Amer 43 L, Est GFR (MDRD) Non-Af 36 L, BUN/Creatinine Ratio 12.7, Glucose 162 H, Calcium 7.1 L 06/06/21 08:00: POC Glucose 143 H Micro: Microbiology 06/04/21 Unknown Pelvic Abcess Gram Stain - Final 06/04/21 Unknown Pelvic Abcess Wound Culture - Preliminary GNR lactose street inspector GNR Poss Pseudomonas sp Radiography Diagnostic Testing: Radiology Impression Chest X-Ray 06/05/21 02:59 IMPRESSION: Worsening of aeration bilateral lower lung parenchyma likely superimposed on COPD/chronic interstitial lung disease suggestive of an inflammatory or infectious etiology. Electronically Signed: Toshia Donald MD at 6:50 EDT , KUB X-Ray 06/05/21 03:00 IMPRESSION: NG tube is seen in good position, its tip is in the gastric lumen. Electronically Signed: Willis Olivares MD at 5:26 EDT , Chest X-Ray 06/05/21 11:57 IMPRESSION: 1. Interval placement of right internal jugular deep venous alignment of the catheter overlying the superior vena cava no pneumothorax. 2. Nasogastric tube which is unchanged. 3. No active pulmonary disease. Electronically Signed: Roel Perez MD at 13:08 EDT , Physical Exam Const alert, oriented x3 and no apparent distress Orientation / Consciousness: oriented to person, oriented to place and oriented to time HEENT normocephalic HEENT Narrative: NG in place Mouth: dry mucous membranes Eyes PERRL, EOMs intact bilaterally and conjunctivae normal Neck no lymphadenopathy Chest inspection of chest normal Chest: symmetrical chest wall rise; Negative for crepitus Resp clear to auscultation bilaterally Auscultation: diminished lung sounds; Negative for rales, rhonchi or wheezes Cardio regular rate, regular rhythm, no murmurs, no rub and no gallops Peripheral Pulses: pulses 2+ throughout GI non-distended GI Narrative: Ileostomy clean, dry and intact. HUGH drain with serosanguineous fluid Palpation: soft and tender; Negative for guarding or rigid Extremity normal to inspection and no clubbing, cyanosis or edema Skin no rashes or lesions noted Lesions: no lesions Rashes: no rashes Trauma: no lacerations or abrasions Neuro CN's II-XII intact bilaterally, no focal motor deficits, no sensory deficits noted and deep tendon reflexes 2+ bilaterally Psych mental status grossly normal and affect normal Charges/Coding Procedures Hospitalists Procedures: 69428 Critial Care 1st Hr
[2021-06-06] MEDS: Ensure Clear 120 ML Liquid PO ×4 (09:28→21:10)
[2021-06-06] MEDS: Potassium Chloride Oral Tablet 20 MEQ PO ×2 (09:29→16:40)
[2021-06-06] MEDS: Insulin Lispro 100 UNIT/ML INSULN.PEN SC ×3 (11:24→21:11)
[2021-06-06 11:26] LABS: Bedside Glucose 294 mg/dL (74-106)
[2021-06-06] MEDS: 0.9% Saline Lock 10 ML Syringe IV (11:31)
[2021-06-06] MEDS: Acetaminophen 500 MG Tablet 1000 MG PO ×2 (11:34→17:55)
[2021-06-06 11:47] LABS: Potassium 3.4 mmol/L (3.5-5.1)
[2021-06-06] MEDS: Clindamycin 600 MG/50 ML BAG 100 MG IV ×2 (13:44→21:11)
--- NOTE | 2021-06-06 15:03 | WOUNDNOTE ---
Dressing to midline abdomen changed. there was minimal drainage noted on the old dressing. incision cleansed and dried. no redness noted. placed Adaptic along the incision and covered with dry dressing. HUGH dressing changed as well. both daughters present in room [facility] and [facility]. Both daughters plan to come for ostomy teaching tomorrow at 1300. educated daughters on emptying the ostomy appliance. plan to change the flange and pouch tomorrow. pt has 200 cc's liquid brown/green stool. pt tolerated well. daughters very appreciative of care.
[2021-06-06 16:51] LABS: Bedside Glucose 268 mg/dL (74-106)
[2021-06-06 21:31] LABS: Bedside Glucose 165 mg/dL (74-106)
[2021-06-07] VITALS (33 sets, daily range): BP systolic 93–144; BP diastolic 41–73; PULSE 69–107; RESP 14–24; TEMP 36.3–36.6; O2SAT 91–100
[2021-06-07] MEDS: Acetaminophen 500 MG Tablet 1000 MG PO ×4 (00:09→17:42)
--- NOTE | 2021-06-07 05:31 | PCM.PN.SRG ---
Subjective Subjective Patient states that she slept well. No significant pain She is feeling hungry Her spirits are very strong this morning. She states that her abdomen is markedly decompressed over preoperatively. She is happy that she is starting to see wrinkles in her hands again as her third space fluid is being mobilized Objective Data Objective Data Vital Signs: Vital Signs Temp Pulse Resp BP Pulse Ox 97.4 F L 74 18 108/48 L 98 06/07/21 00:00 06/07/21 03:00 06/07/21 03:00 06/07/21 03:00 06/07/21 03:00 Oxygen Flow Rate (L/min) 2 Oxygen Delivery Method Room Air Weight: 162 lb 0.636 oz Body Mass Index (BMI) 27.8 Intake & Output: Intake and Output for Last 24 Hours 06/05/21 06/06/21 06/07/21 23:59 23:59 23:59 Intake Total 4934.77 / 4944.17 1375.38 / 1677.28 407.6 / 407.6 Output Total 1425 / 1425 2485 / 2635 150 / 150 Balance 3509.77 / 3519.17 -1109.62 / -957.72 257.6 / 257.6 Lab / Micro Data Result Diagrams: 06/06/21 05:10 06/06/21 11:30 Labs: Laboratory Results - last 24 hr 06/06/21 05:10: Differential Comment SCANNED, Diff Path Review July06/06/21 08:00: POC Glucose 143 H 06/06/21 11:19: POC Glucose 294 H 06/06/21 11:30: Potassium 3.4 L 06/06/21 16:38: POC Glucose 268 H 06/06/21 21:09: POC Glucose 165 H Micro: Microbiology 06/04/21 Unknown Pelvic Abcess Gram Stain - Final 06/04/21 Unknown Pelvic Abcess Wound Culture - Preliminary GNR lactose border measurer and cutter GNR Poss Pseudomonas sp Physical Exam Const no apparent distress Resp normal respiratory effort and clear to auscultation bilaterally Cardio regular rate and regular rhythm Cardio Narrative: Heart rate significantly increased from preoperatively where she was heavily beta blocked down. GI GI Narrative: Soft, nontender, ileostomy healthy and functioning, HUGH drain demonstrating serosanguineous fluid very benign in appearance. Large volume. Assessment & Plan Assessment/Plan (1) Colovaginal fistula: (2) Colon obstruction: (3) Diverticulitis large intestine: QUALIFIERS: Diverticulitis bleeding: without bleeding Diverticulitis complication: with abscess Qualified Code(s): K57.20 - Diverticulitis of large intestine with perforation and abscess without bleeding PLAN: Patient is making very strong progress. Blood pressure support still on Levophed but based upon her overall progress 1 would anticipate likely weaning to off today. Bowel function appears to be returning. HUGH drain simply draining copious third space serosanguineous fluid. No evidence for enteric leak or purulence We will advance to diabetic diet. Possible delayed primary wound closure today Intraoperative wound cultures: GNR lactose border measurer and cutter, GNR Poss Pseudomonas sp anaerobic analysis still pending. Patient still on cefotetan and clindamycin. The patient is anticipating returning to her home with ileostomy and wound management assisted by a daughter
[2021-06-07] MEDS: Menthol/Lanolin/Calamine/Znox 113 GM Tube 1 APPLIC TOPICAL ×3 (05:40→21:31)
[2021-06-07] MEDS: Clindamycin 600 MG/50 ML BAG 100 MG IV (05:40)
--- NOTE | 2021-06-07 05:40 | PCM.DC ---
Discharge Instructions Diet Discharge Diet: Light diet - advance as tolerated and 1600 Calorie Control Diet Activity Discharge Activity: May Not Drive (For 5 to 7 days) and May Shower Weight Bearing Status: Full weight bearing Dressing / Incision Call your doctor if your incision/area has: Continuous Slow Oozing, Sudden Increased Bleeding and Increased Pain/ Swelling Call your doctor if you observe: Fever of 101 or Higher Suture Line Care: Avoid Pulling/Pushing Additional Dressing/Incision Instructions:: Ileostomy care as per instructions. You may shower over your midline wound. Pat dry and then apply dry gauze dressings as needed to protect the incision Follow Up Care Please Follow Up With: Loki Wilson MD When: Please call [phone] for office follow-up June 14, 2021 Test Results: Test results from this visit will be discussed in further detail at your follow-up appointment, if applicable. Ileostomy care as directed Left lower wound site if not draining can be left open or covered with a simple Band-Aid Discharge Plan Admission Admit Date/Time: 06/04/21 09:35 Attending Provider: Paulina Evans Primary Care Provider: Kelsy Mensah Consulting Providers: Loki Wilson Discharge Orders/Prescriptions Prescriptions: No Action metformin 500 MG tablet 500 mg PO TIDCM RF: 0 glyburide 5 MG tablet 5 mg PO DAILY@0800 RF: 0 multivitamin 1 EACH tablet 1 ea PO DAILY@1200 RF: 0 cyanocobalamin (vitamin B-12) 1,000 MCG tablet 1,000 mcg PO DAILY@1200 RF: 0 ascorbic acid (vitamin C) 500 MG tablet 500 mg PO DAILY@1200 RF: 0 atenolol 50 MG tablet 50 mg PO BID RF: 0 cholecalciferol (vitamin D3) 1,000 UNIT capsule 1,000 unit PO DAILY@1200 RF: 0 omega-3 fatty acids-fish oil 1 EACH capsule,delayed release(DR/EC) 1 cap PO BID RF: 0 aspirin 81 MG tablet,chewable 81 mg PO DAILY RF: 0 magnesium oxide 400 MG tablet 400 mg PO DAILY@1200 RF: 0 amlodipine 10 MG tablet 10 mg PO DAILY RF: 0 furosemide 40 mg tablet 40 mg PO DAILY RF: 0 lisinopril 10 mg tablet 30 mg PO DAILY RF: 0
[2021-06-07 05:55] LABS: Absolute Lymphocyte Count 2.55 X10^3/uL (0.83-4.51); Absolute Neutrophil Count 12.4 X10^3/uL (2.0-7.7); Basophil# 0.06 X10^3/uL; Basophil% 0.4 % (0-1); Eosinophil# 0.34 X10^3/uL; Hematocrit 26.7 % (37-47); Hemoglobin 9.2 g/dL (12.0-15.0); Lymphocyte # 2.55 X10^3/ul (0.83-4.51); Lymphocyte % 15.2 % (19-41); Mean Corp Hgb Conc 34.5 g/dL (32-36); Mean Corpuscular Hgb 30.3 pg (27.0-32.0); Mean Corpuscular Volume 87.8 fL (81-99); Mean Platelet Vol. 10.3 fl (6.2-12.0); Monocyte# 1.26 X10^3/uL; Monocyte% 7.5 % (0-10); NRBC Flagged by Analyzer 0 % (0-5); Neutrophil # 12.43 X10^3/uL (2.7-7.7); Neutrophil % 73.9 % (47-70); Platelet Count 218 K/mm3 (150-450); RBC Distribution Width CV 16.5 % (11.6-14.6); RBC Distribution Width SD 52.4 fl (35.1-43.9); Red Blood Count 3.04 M/mm3 (4.2-5.4); White Blood Count 16.8 K/mm3 (4.4-11.0)
[2021-06-07 06:14] LABS: Anion Gap 6 (5-15); BUN 17 mg/dL (7-18); Calcium,Total 7.5 mg/dL (8.5-10.1); Chloride 112 mmol/L (98-107); Creatinine, Serum 1.31 mg/dL (0.55-1.02); EST Glomerular Filtration Rate 42 mL/min (>60); Est Glom Filt Rate - Afr Amer 50 mL/min (>60); Estimated Creatinine Clearance 29.58 ml/min; Glucose 161 mg/dL (74-106); Potassium 3.3 mmol/L (3.5-5.1); Sodium Level 138 mmol/L (136-145)
--- NOTE | 2021-06-07 07:02 | PN.CC_ITS ---
Assessment & Plan Assessment/Plan (1) Colovaginal fistula: (2) Colon obstruction: (3) Type 2 diabetes mellitus: (4) CKD (chronic kidney disease), stage III: QUALIFIERS: Chronic kidney disease stage 3 subtype: stage 3a (GFR 45-59) Qualified Code(s): N18.31 - Chronic kidney disease, stage 3a PLAN: RECOMMENDATIONS: 1. Potentially reinitiate diuretics later tonight or tomorrow 2. Continue p.o. potassium repletion 3. Keep oxygen saturations between 90 and 95% 4. Possibly leave the intensive care unit later today 5. Continue antibiotics as ordered 6. Will sign off from a critical care perspective the patient remains off of Levophed for the next 24 hours IMPRESSIONS: 1. Colonic obstruction/colovesical fistula status post open laparotomy with ileostomy POD #3 Patient continues to have minimal HUGH drainage and leukocytosis. There was some concern for significant atherosclerotic disease of abdominal vessels, so will attempted to avoid pressors. Patient's physical exam is appears to be much improved compared to previous. Patient's HUGH drainage is much improved compared to yesterday. Patient did have decent urine output overnight. NG has been removed by surgery and patient appears to be tolerating this well. 2. 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 Patient's oxygenation is doing well at this time. Anticipate significant third spacing, but as long as oxygen is not required patient will likely do okay and diurese after acute systemic inflammatory response is resolved. Likely challenge with Lasix later today versus tomorrow 3. Sepsis secondary to problem #1 Patient appears to be doing well at this time. Patient blood pressure has been doing well on low-dose pressors. We will continue to wean off. We will hold on diuretics for now. Patient may need a change in antibiotic regimen pending sensitivities, but appears to be improving on the current regimen. 4. PVD/PAD/CAD/hyperlipidemia/hypertension/type 2 diabetes mellitus/CKD stage IIIa/hypokalemia Complicates care, management, recovery and prognosis. Electrolyte repletion has been ordered. Antihypertensive regimen has been held secondary to problem #3. Likely reinitiate antihypertensives in a stepwise fashion once off pressors and tolerating diuretics. Patient has not tolerated statins in the past. Patient does have a history of angioplasty. No findings suggestive of ischemic complications despite pressors. Subjective Subjective Patient subjectively feels improved compared to yesterday. Patient was able to be taken off of Levophed this morning and is tolerating it well. Patient is r eporting less abdominal pain. Patient was able to move around yesterday and has remained on room air. No fevers have been reported. HUGH drainage has been improving. Objective Data Objective Data Vital Signs: Vital Signs Temp Pulse Resp BP Pulse Ox 36.3 C L 83 16 121/51 H 97 06/07/21 00:00 06/07/21 06:00 06/07/21 06:00 06/07/21 06:30 06/07/21 06:00 Oxygen Flow Rate (L/min) 2 Oxygen Delivery Method Room Air Weight: 73.5 kg Body Mass Index (BMI) 27.8 Intake & Output: Intake and Output for Last 24 Hours 06/05/21 06/06/21 06/07/21 23:59 23:59 23:59 Intake Total 4934.77 / 4944.17 1375.38 / 1677.28 462.35 / 462.35 Output Total 1425 / 1425 2485 / 2635 700 / 700 Balance 3509.77 / 3519.17 -1109.62 / -957.72 -237.65 / -237.65 Lab / Micro Data Result Diagrams: 06/07/21 05:40 06/07/21 05:40 Labs: Laboratory Results - last 24 hr 06/06/21 08:00: POC Glucose 143 H 06/06/21 11:19: POC Glucose 294 H 06/06/21 11:30: Potassium 3.4 L 06/06/21 16:38: POC Glucose 268 H 06/06/21 21:09: POC Glucose 165 H 06/07/21 05:40: WBC 16.8 H, RBC 3.04 L, Hgb 9.2 L, Hct 26.7 L, MCV 87.8, MCH 30.3, MCHC 34.5, RDW Std Deviation 52.4 H, RDW Coeff of [place] 16.5 H, Plt Count 218, MPV 10.3, Immature Gran % (Auto) 1.000 H, Neut % (Auto) 73.9 H, Lymph % (Auto) 15.2 L, [place] % (Auto) 7.5, Eos % (Auto) 2.0, Baso % (Auto) 0.4, Absolute Neuts (auto) 12.4 H, Absolute Lymphs (auto) 2.55, Nucleated RBC % 0 06/07/21 05:40: Sodium 138, Potassium 3.3 L, Chloride 112 H, Carbon Dioxide 20.0 L, Anion Gap 6, BUN 17, Creatinine 1.31 H, Estim Creat Clear Calc 29.58, Est GFR (MDRD) Af Amer 50 L, Est GFR (MDRD) Non-Af 42 L, BUN/Creatinine Ratio 13.0, Glucose 161 H, Calcium 7.5 L Micro: Microbiology 06/04/21 Unknown Pelvic Abcess Gram Stain - Final 06/04/21 Unknown Pelvic Abcess Wound Culture - Preliminary GNR lactose international operations manager GNR Poss Pseudomonas sp Physical Exam Const alert, oriented x3 and no apparent distress Orientation / Consciousness: oriented to person, oriented to place and oriented to time HEENT normocephalic HEENT Narrative: NG has been removed Mouth: oral and palatal mucosa normal and tongue normal Eyes PERRL, EOMs intact bilaterally and conjunctivae normal Neck no lymphadenopathy Chest inspection of chest normal Chest: symmetrical chest wall rise; Negative for crepitus Resp clear to auscultation bilaterally Auscultation: diminished lung sounds; Negative for rales, rhonchi or wheezes Cardio regular rate, regular rhythm, no murmurs, no rub and no gallops Peripheral Pulses: pulses 2+ throughout GI non-distended GI Narrative: Ileostomy clean, dry and intact. HUGH drain with serosanguineous fluid Palpation: soft and tender periumbilical (Mild and only with palpation); Negative for guarding or rigid Extremity normal to inspection and no clubbing, cyanosis or edema Skin no rashes or lesions noted Lesions: no lesions Rashes: no rashes Trauma: no lacerations or abrasions Neuro CN's II-XII intact bilaterally, no focal motor deficits, no sensory deficits noted and deep tendon reflexes 2+ bilaterally Psych mental status grossly normal and affect normal Charges/Coding Visit Charges Inpatient E&M: 99908 Subs Hosp L3
[2021-06-07 07:46] LABS: Bedside Glucose 164 mg/dL (74-106)
[2021-06-07] MEDS: Insulin Lispro 100 UNIT/ML INSULN.PEN SC ×4 (07:48→21:35)
[2021-06-07] MEDS: Potassium Chloride Oral Tablet 20 MEQ PO ×3 (08:43→16:38)
[2021-06-07] MEDS: Piperacil/Tazobactam 3.375 GM Q8 PREMIX IV ×2 (10:33→21:30)
[2021-06-07 11:36] LABS: Bedside Glucose 338 mg/dL (74-106)
--- NOTE | 2021-06-07 13:49 | WOUNDNOTE ---
JUWAN Evans had been on for secondary wound closure of the abdominal incision. pt tolerated well. see progress note.
--- NOTE | 2021-06-07 13:51 | WOUNDNOTE ---
Ileostomy appliance changed with daughters Xochilt and Kaitlyn. removed the appliance. stoma sits just above the skin level. stoma is pink and moist. measures approx 1. peristomal skin is intact. there was a small amount of liquid brown stool in the appliance. pt did have a leak in the appliance so there was moderate stool in the attends. cleansed skin with warm water. pat dry. applied a new 2 piece [place] appliance with a small amount of stoma paste. pt tolerated well. patient also had a large amount of mucous from the rectum. pericare provided and new attends place. Reviewed ostomy booklet with daughters, including signs of dehydration, etc. Pt has [facility] so will not need a script for supplies. List of supplies given to daughters to order. both very appreciative of care and aware to ask questions if needed.
--- NOTE | 2021-06-07 14:07 | PN_ITS ---
Progress Note Delayed primary closure was completed at bedside today. Procedure note Procedure: Delayed primary closure of midline abdominal wound Permit: Procedure, benefits, risks (include those of bleeding, infection, injury, anesthesia, and allergic reaction), and alternatives explained to the patient who voiced understanding of the information. Their questions were sought and answered. Patient agreed to proceed with the delayed primary closure of midline abdominal wound. Indication: Approximate midline incision Physician: Cristina Puri PA-C [place] Worker: Verito Blanco RN Description: Patient placed supine in bed. Area prepped with Betadine and draped in a sterile fashion. Local anesthetic administered with 1% lidocaine. 10 cc was injected total. Remaining open areas were well approximated with simple 3-0 Nylon sutures down the entire incision. Incision was cleansed with saline and gauze dressing was applied. Patient tolerated the procedure well. Complications: None Disposition: Patient alert and oriented. No discomfort during the procedure except for the initial lidocaine injection. Assessment & Plan Assessment/Plan (1) Delayed postoperative wound closure: PLAN: Patient will need to have Nylon sutures removed in 7-10 days in our office. Visit Charges Inpatient E&M: 64178 [facility] L1 (no charge)
[2021-06-07 14:08] LABS: Pathologist Review Reviewed
[2021-06-07] MEDS: Furosemide 20 MG/2 ML VIAL IV (14:13)
[2021-06-07] MEDS: 0.9% Saline Lock 10 ML Syringe IV (14:13)
--- NOTE | 2021-06-07 15:10 | CASEMGMT ---
FLOR DOMINGO NOTE: FLOR CM to room to talk w/pt and 2 daughters, Kaitlyn and Xochilt, who are at bedside to discuss discharge planning. Pt and daughters wish for pt to return home. Discussed option of HHC for nursing and therapy. head resident nurse, Verito, has been in w/pt and daughters today to do ostomy teaching. Kaitlyn and Xochilt both state they feel she did a great job w/educating them on ostomy care and they feel comfortable with providing this care for patient @ home. Kaitlyn states she will be in another day for further/ongoing education and does not feel at this time that SN will be needed in the home. Pt states she also does not feel therapy thru HHC will be necessary, stating that Kaitlyn gives her therapy. Kaitlyn states pt has had HHC for therapy in the past and confirms that she has been taught exercises to do with her mom and that she plans to continue to do this when pt returns home. Pt and daughters made aware if, once pt returns home, if they decide later they would like HHC, to notify pt's PCP, as HHC can be set up through PCP's office. They voice understanding. Pt and daughters deny having any other discharge planning needs at this time. They were made aware to ask for CM if any further questions, concerns, or discharge planning needs arise. They voice understanding. Bettina FERRERA RN, CM
[2021-06-07 16:51] LABS: Bedside Glucose 274 mg/dL (74-106)
[2021-06-07] MEDS: Atenolol 50 MG Tablet PO (21:30)
[2021-06-08] VITALS (25 sets, daily range): BP systolic 99–142; BP diastolic 48–92; PULSE 75–101; RESP 16–25; TEMP 36.2–36.8; O2SAT 94–100
[2021-06-08] MEDS: Acetaminophen 500 MG Tablet 1000 MG PO ×3 (00:13→12:32)
[2021-06-08] MEDS: Ondansetron 4 MG/2 ML Vial IV ×2 (03:19→21:15)
[2021-06-08 03:58] LABS: Absolute Lymphocyte Count 2.47 X10^3/uL (0.83-4.51); Absolute Neutrophil Count 13.6 X10^3/uL (2.0-7.7); Basophil# 0.06 X10^3/uL; Basophil% 0.3 % (0-1); Eosinophil# 0.38 X10^3/uL; Eosinophils% 2.1 % (0-5); Hemoglobin 9.7 g/dL (12.0-15.0); Lymphocyte # 2.47 X10^3/ul (0.83-4.51); Lymphocyte % 13.6 % (19-41); Mean Corp Hgb Conc 34.6 g/dL (32-36); Mean Corpuscular Hgb 30.1 pg (27.0-32.0); Monocyte# 1.36 X10^3/uL; Monocyte% 7.5 % (0-10); NRBC Flagged by Analyzer 0 % (0-5); Neutrophil # 13.64 X10^3/uL (2.7-7.7); Neutrophil % 75.4 % (47-70); Platelet Count 268 K/mm3 (150-450); RBC Distribution Width SD 53.5 fl (35.1-43.9); Red Blood Count 3.22 M/mm3 (4.2-5.4); White Blood Count 18.1 K/mm3 (4.4-11.0)
[2021-06-08 04:13] LABS: Anion Gap 3 (5-15); BUN 19 mg/dL (7-18); Calcium,Total 7.9 mg/dL (8.5-10.1); Chloride 110 mmol/L (98-107); Creatinine, Serum 1.27 mg/dL (0.55-1.02); EST Glomerular Filtration Rate 43 mL/min (>60); Est Glom Filt Rate - Afr Amer 52 mL/min (>60); Estimated Creatinine Clearance 30.51 ml/min; Glucose 282 mg/dL (74-106); Potassium 4.2 mmol/L (3.5-5.1); Sodium Level 138 mmol/L (136-145)
[2021-06-08 05:36] LABS: Bedside Glucose 303 mg/dL (74-106)
--- NOTE | 2021-06-08 05:41 | RAD_ITS ---
STUDY: X-RAY CHEST REASON FOR EXAM: Female, 80 years old. tachypnea TECHNIQUE: AP portable upright COMPARISON: None. FINDINGS: There are postsurgical changes of a median sternotomy procedure. There is a right IJ catheter with the tip in the superior vena cava There are surgical clips at the left side of the neck The lungs are clear and expanded. There is no demonstrated pleural abnormality. Normal size heart. Normal mediastinum and pavel. Normal visualized pulmonary arteries. Normal visualized aortic arch and descending thoracic aorta. Normal visualized thoracic spine. Normal visualized ribs, clavicles, and shoulders. There is no demonstrated abnormality of the visualized soft tissue structures of the upper abdomen. RAD/Chest 1 View (Portable) IMPRESSION: No acute abnormality. Electronically Signed: Thaddeus London MD at 7:07 EDT ,
--- NOTE | 2021-06-08 05:41 | RAD_ITS ---
STUDY: X-RAY - ABDOMEN/PELVIS REASON FOR EXAM: Female, 80 years old. abdominal distention TECHNIQUE: AP portable supine COMPARISON: None. FINDINGS: Normal visualized lung bases. There are dilated loops of air-containing bowel in the left mid abdomen and left flank . There is no demonstrated free abdominal air. There is a left ureteral stent. The visualized liver, spleen and kidneys are grossly normal in size and morphology. Normal soft tissue structures. Normal visualized osseous structures. RAD/Abdomen Single View (Portable) IMPRESSION: There are dilated loops of bowel in the left flank. There is left ureteral stent. Electronically Signed: Thaddeus London MD at 7:05 EDT ,
[2021-06-08] MEDS: Piperacil/Tazobactam 3.375 GM Q8 PREMIX IV ×3 (05:42→21:16)
[2021-06-08] MEDS: Menthol/Lanolin/Calamine/Znox 113 GM Tube 1 APPLIC TOPICAL ×3 (05:42→21:15)
--- NOTE | 2021-06-08 05:43 | PN.SURG_ITS ---
Subjective Subjective Patient states she had a very uncomfortable night. Complains that she is distended not did not tolerate a regular diet. States that she has had some liquid per rectum. Objective Data Objective Data Vital Signs: Vital Signs Temp Pulse Resp BP Pulse Ox 97.2 F L 95 22 H 120/56 L 94 06/08/21 00:00 06/08/21 05:00 06/08/21 05:00 06/08/21 05:00 06/08/21 05:00 Oxygen Flow Rate (L/min) 2 Oxygen Delivery Method Room Air Weight: 167 lb 12.348 oz Body Mass Index (BMI) 27.8 Intake & Output: Intake and Output for Last 24 Hours 06/06/21 06/07/21 06/08/21 23:59 23:59 23:59 Intake Total 1375.38 / 1677.28 1012.35 / 1012.35 50 / 50 Output Total 2485 / 2635 3180 / 3180 110 / 110 Balance -1109.62 / -957.72 -2167.65 / -2167.65 -60 / -60 Lab / Micro Data Result Diagrams: 06/08/21 03:50 06/08/21 03:50 Labs: Laboratory Results - last 24 hr 06/06/21 05:10: Diff Path Review Reviewed 06/07/21 05:40: WBC 16.8 H, RBC 3.04 L, Hgb 9.2 L, Hct 26.7 L, MCV 87.8, MCH 30.3, MCHC 34.5, RDW Std Deviation 52.4 H, RDW Coeff of Monique 16.5 H, Plt Count 218, MPV 10.3, Immature Gran % (Auto) 1.000 H, Neut % (Auto) 73.9 H, Lymph % (Auto) 15.2 L, [place] % (Auto) 7.5, Eos % (Auto) 2.0, Baso % (Auto) 0.4, Absolute Neuts (auto) 12.4 H, Absolute Lymphs (auto) 2.55, Nucleated RBC % 0 06/07/21 05:40: Sodium 138, Potassium 3.3 L, Chloride 112 H, Carbon Dioxide 20.0 L, Anion Gap 6, BUN 17, Creatinine 1.31 H, Estim Creat Clear Calc 29.58, Est GFR (MDRD) Af Amer 50 L, Est GFR (MDRD) Non-Af 42 L, BUN/Creatinine Ratio 13.0, Glucose 161 H, Calcium 7.5 L 06/07/21 07:40: POC Glucose 164 H 06/07/21 11:27: POC Glucose 338 H 06/07/21 16:36: POC Glucose 274 H 06/07/21 21:34: POC Glucose 303 H 06/08/21 03:50: WBC 18.1 H, RBC 3.22 L, Hgb 9.7 L, Hct 28.0 L, MCV 87.0, MCH 30.1, MCHC 34.6, RDW Std Deviation 53.5 H, RDW Coeff of Monique 17.0 H, Plt Count 268, MPV 10.0, Immature Gran % (Auto) 1.100 H, Neut % (Auto) 75.4 H, Lymph % (Auto) 13.6 L, [place] % (Auto) 7.5, Eos % (Auto) 2.1, Baso % (Auto) 0.3, Absolute Neuts (auto) 13.6 H, Absolute Lymphs (auto) 2.47, Nucleated RBC % 0 06/08/21 03:50: Sodium 138, Potassium 4.2, Chloride 110 H, Carbon Dioxide 25.0, Anion Gap 3 L, BUN 19 H, Creatinine 1.27 H, Estim Creat Clear Calc 30.51, Est GFR (MDRD) Af Amer 52 L, Est GFR (MDRD) Non-Af 43 L, BUN/Creatinine Ratio 15.0, Glucose 282 H, Calcium 7.9 L Micro: Microbiology 06/04/21 Unknown Pelvic Abcess Gram Stain - Final 06/04/21 Unknown Pelvic Abcess Wound Culture - Preliminary Escherichia coli Pseudomonas aeroginosa 06/04/21 Unknown Pelvic Abcess Anaerobic Culture - Preliminary 06/05/21 07:50 Blood Culture (Wb) - Right Wrist Blood Culture - Preliminary No growth in 48 hours. 06/05/21 08:05 Blood Culture (Wb) - Anticubital Right Blood Culture - Preliminary No growth in 48 hours. Physical Exam Narrative Patient is much more unsettled than yesterday. Abdomen is distended. Resp Resp Narrative: Increased respiratory rate: Clear in the apices GI GI Narrative: Soft but distended, gas and liquid within the ileostomy bag. HUGH drain now almost completely serous material no signs of feculent material or odor Assessment & Plan Assessment/Plan (1) Colovaginal fistula: (2) Colon obstruction: (3) Diverticulitis large intestine: QUALIFIERS: Diverticulitis bleeding: without bleeding Diverticulitis complication: with abscess Qualified Code(s): K57.20 - Diverticulitis of large intestine with perforation and abscess without bleeding PLAN: Patient did not tolerate diet advancement. Now uncomfortable with abdominal distention and tachypnea. White count is slightly elevated. HUGH drain appears very benign. Patient comments about liquid per rectum. Need to mobilize patient. Over an hour of adhesiolysis was performed in the abdomen with significant amount of upon the terminal small bowel. Findings consistent with ileus/partial small bowel obstruction. WBC slightly elevated. BUN slightly elevated. We will need to observe for ongoing abdominal infection or occult source. Patient is certainly at high risk for pulmonary embolism. We will drop back to clear liquids and is no carbonation. Will obtain chest x- ray and abdominal films. I was can remove the HUGH drain but will leave that for the moment. Patient needs to mobilize. Loki Wilson M.D., F.A.C.S.
[2021-06-08] MEDS: Insulin Lispro 100 UNIT/ML INSULN.PEN SC ×4 (06:19→21:24)
[2021-06-08 06:25] LABS: Bedside Glucose 334 mg/dL (74-106)
--- NOTE | 2021-06-08 10:00 | CASEMGMT ---
FLOR DOMINGO NOTE: Pt states she is interested in completed HPOA, and would like her daughter, Kaitlyn, to be HPOA, stating she is the one who takes care of her mostly. Rica RANDALL, made aware. Bettina FERRERA RN CM
[2021-06-08 12:06] LABS: Bedside Glucose 290 mg/dL (74-106)
[2021-06-08] MEDS: Atenolol 50 MG Tablet PO ×2 (12:31→21:15)
[2021-06-08] MEDS: Lactated Ringers 1,000 ML 50 ML IV (12:37)
--- NOTE | 2021-06-08 13:08 | PCM.PN.HOSP ---
Subjective Subjective No flatus. Feels well overall. Objective Data Objective Data Vital Signs: Vital Signs Temp Pulse Resp BP Pulse Ox 36.2 C L 94 20 H 118/66 96 06/08/21 00:00 06/08/21 07:00 06/08/21 07:00 06/08/21 07:00 06/08/21 07:00 Oxygen Flow Rate (L/min) 2 Oxygen Delivery Method Room Air Weight: 76.1 kg Body Mass Index (BMI) 27.8 Intake & Output: Intake and Output for Last 24 Hours 06/06/21 06/07/21 06/08/21 23:59 23:59 23:59 Intake Total 1375.38 / 1677.28 1012.35 / 1012.35 210 / 210 Output Total 2485 / 2635 3180 / 3180 890 / 890 Balance -1109.62 / -957.72 -2167.65 / -2167.65 -680 / -680 Lab / Micro Data Result Diagrams: 06/08/21 03:50 06/08/21 03:50 Labs: Laboratory Results - last 24 hr 06/05/21 04:36: Crossmatch See Detail 06/06/21 05:10: Diff Path Review Reviewed 06/07/21 16:36: POC Glucose 274 H 06/07/21 21:34: POC Glucose 303 H 06/08/21 03:50: WBC 18.1 H, RBC 3.22 L, Hgb 9.7 L, Hct 28.0 L, MCV 87.0, MCH 30.1, MCHC 34.6, RDW Std Deviation 53.5 H, RDW Coeff of Monique 17.0 H, Plt Count 268, MPV 10.0, Immature Gran % (Auto) 1.100 H, Neut % (Auto) 75.4 H, Lymph % (Auto) 13.6 L, [place] % (Auto) 7.5, Eos % (Auto) 2.1, Baso % (Auto) 0.3, Absolute Neuts (auto) 13.6 H, Absolute Lymphs (auto) 2.47, Nucleated RBC % 0 06/08/21 03:50: Sodium 138, Potassium 4.2, Chloride 110 H, Carbon Dioxide 25.0, Anion Gap 3 L, BUN 19 H, Creatinine 1.27 H, Estim Creat Clear Calc 30.51, Est GFR (MDRD) Af Amer 52 L, Est GFR (MDRD) Non-Af 43 L, BUN/Creatinine Ratio 15.0, Glucose 282 H, Calcium 7.9 L 06/08/21 06:18: POC Glucose 334 H 06/08/21 11:50: POC Glucose 290 H Micro: Microbiology 06/04/21 Unknown Pelvic Abcess Gram Stain - Final 06/04/21 Unknown Pelvic Abcess Wound Culture - Preliminary Escherichia coli Pseudomonas aeroginosa 06/05/21 07:50 Blood Culture (Wb) - Right Wrist Blood Culture - Preliminary No growth in 48 hours. 06/05/21 08:05 Blood Culture (Wb) - Anticubital Right Blood Culture - Preliminary No growth in 48 hours. Radiography Diagnostic Testing: Radiology Impression Chest X-Ray 06/08/21 05:41 IMPRESSION: No acute abnormality. Electronically Signed: Thaddeus London MD at 7:07 EDT Reading Location ID and State: [facility] / [place] Tel , Service support , KUB X-Ray 06/08/21 05:41 IMPRESSION: There are dilated loops of bowel in the left flank. There is left ureteral stent. Electronically Signed: Thaddeus London MD at 7:05 EDT , Physical Exam Const alert and no apparent distress Resp normal respiratory effort, no retractions, no use of accessory muscles and clear to auscultation bilaterally Cardio regular rate, regular rhythm, S1 normal heart sound and S2 normal heart sound GI soft to palpation GI Narrative: high-pitched bowel sounds. Skin no rashes or lesions noted Neuro Sensorium / Orientation: awake and alert Assessment & Plan Assessment/Plan (1) Colon obstruction: (2) Septic shock: PLAN: 1. Septic shock pressors weaned off 2/2 pelvic abscess + cultures for E. coli and P aeroginosa on Pip/tazo off pressors 2. Colovesical fistula, partial colonic obstruction-management per surgery. Status post OR 06/04/2021 with exploratory laparotomy with lysis of extensive adhesions with subsequent low anterior resection of the colon with primary anastomosis and diverting right lower quadrant ileostomy. Left ureteral stenting with anterior wall repair per urology. Ileus NPO 3. Chronic heart failure with preserved ejection fraction-echocardiogram 10/2020 with EF 55%, RVSP estimated to be 51 mmHg. Furosemide on hold 4. Type 2 diabetes mellitus- Uncontrolled Accu-Cheks with sliding scale insulin. Hold oral regimen. add low-dose Basal 4. Chronic kidney disease stage IIIa- stable, trend BMP. 5. CAD with history of CABG- stable 6. PVD/PAD-history of angioplasty. Continue aspirin. Continue outpatient follow-up with vascular surgery. 7. Hyperlipidemia-statin allergy. 8. Hypertension-stable, continue current regimen. DVT prophylaxis- per surgery Charges/Coding Visit Charges Inpatient E&M: 81049 Subs Hosp L2
--- NOTE | 2021-06-08 13:50 | CASEMGMT ---
Social Work SW received referral for advance directives. SW met with pt and discussed HCPOA. Pt does not wish to complete at this time as she would prefer to speak to her dgt prior to making a decision. TONIA Rack card and information left with pt. SW is available should pt change her mind. VIKTORIA Benitez
--- NOTE | 2021-06-08 15:38 | NURSING ---
education re chronic illness deferrred till acute illness resolving
[2021-06-08] MEDS: 0.9% Saline Lock 10 ML Syringe IV (17:33)
[2021-06-08 17:41] LABS: Bedside Glucose 198 mg/dL (74-106)
[2021-06-08] MEDS: Ensure Clear 120 ML Liquid PO (21:15)
[2021-06-08 21:36] LABS: Bedside Glucose 160 mg/dL (74-106)
[2021-06-09] VITALS (14 sets, daily range): BP systolic 121–149; BP diastolic 47–64; PULSE 70–93; RESP 15–22; TEMP 36.5–36.8; O2SAT 97–100
[2021-06-09 05:07] LABS: Absolute Lymphocyte Count 2.65 X10^3/uL (0.83-4.51); Absolute Neutrophil Count 10.6 X10^3/uL (2.0-7.7); Basophil# 0.08 X10^3/uL; Basophil% 0.5 % (0-1); Eosinophil# 0.56 X10^3/uL; Eosinophils% 3.7 % (0-5); Hematocrit 27.5 % (37-47); Hemoglobin 9.3 g/dL (12.0-15.0); Lymphocyte # 2.65 X10^3/ul (0.83-4.51); Lymphocyte % 17.3 % (19-41); Mean Corp Hgb Conc 33.8 g/dL (32-36); Mean Corpuscular Volume 88.7 fL (81-99); Mean Platelet Vol. 9.6 fl (6.2-12.0); Monocyte# 1.17 X10^3/uL; Monocyte% 7.6 % (0-10); NRBC Flagged by Analyzer 0 % (0-5); Neutrophil # 10.61 X10^3/uL (2.7-7.7); Neutrophil % 69.4 % (47-70); Platelet Count 254 K/mm3 (150-450); RBC Distribution Width CV 17.5 % (11.6-14.6); RBC Distribution Width SD 56.8 fl (35.1-43.9); White Blood Count 15.3 K/mm3 (4.4-11.0)
[2021-06-09] MEDS: Menthol/Lanolin/Calamine/Znox 113 GM Tube 1 APPLIC TOPICAL ×2 (05:20→13:05)
[2021-06-09] MEDS: Piperacil/Tazobactam 3.375 GM Q8 PREMIX IV ×3 (05:20→22:34)
[2021-06-09 05:30] LABS: Anion Gap 3 (5-15); BUN 17 mg/dL (7-18); BUN/Creat Ratio 16.8 RATIO (10-20); Calcium,Total 7.8 mg/dL (8.5-10.1); Chloride 112 mmol/L (98-107); Creatinine, Serum 1.01 mg/dL (0.55-1.02); EST Glomerular Filtration Rate 56 mL/min (>60); Est Glom Filt Rate - Afr Amer 68 mL/min (>60); Estimated Creatinine Clearance 38.36 ml/min; Glucose 202 mg/dL (74-106); Potassium 4.5 mmol/L (3.5-5.1); Sodium Level 138 mmol/L (136-145)
--- NOTE | 2021-06-09 06:33 | PN.SURG_ITS ---
Subjective Subjective Patient is feeling markedly improved today. Last night she states she had a lot of rumbling in grumbling and passing of gas and stool through her ileostomy. Her nausea has resolved. She has been mobilized many times which is assisted with her recovery. Objective Data Objective Data Vital Signs: Vital Signs Temp Pulse Resp BP Pulse Ox 98.2 F 93 16 149/61 H 99 06/09/21 04:00 06/09/21 04:00 06/09/21 04:00 06/09/21 04:00 06/09/21 04:00 Oxygen Flow Rate (L/min) 2 Oxygen Delivery Method Room Air Weight: 158 lb 4.67 oz Body Mass Index (BMI) 27.8 Intake & Output: Intake and Output for Last 24 Hours 06/07/21 06/08/21 06/09/21 23:59 23:59 23:59 Intake Total 1012.35 / 1012.35 692.5 / 812.5 572.5 / 572.5 Output Total 3180 / 3180 1150 / 1545 1065 / 1065 Balance -2167.65 / -2167.65 -457.5 / -732.5 -492.5 / -492.5 Lab / Micro Data Result Diagrams: 06/09/21 05:00 06/09/21 05:00 Labs: Laboratory Results - last 24 hr 06/05/21 04:36: Crossmatch See Detail 06/08/21 11:50: POC Glucose 290 H 06/08/21 17:32: POC Glucose 198 H 06/08/21 21:22: POC Glucose 160 H 06/09/21 05:00: WBC 15.3 H, RBC 3.10 L, Hgb 9.3 L, Hct 27.5 L, MCV 88.7, MCH 30.0, MCHC 33.8, RDW Std Deviation 56.8 H, RDW Coeff of Monique 17.5 H, Plt Count 254, MPV 9.6, Immature Gran % (Auto) 1.500 H, Neut % (Auto) 69.4, Lymph % (Auto) 17.3 L, [place] % (Auto) 7.6, Eos % (Auto) 3.7, Baso % (Auto) 0.5, Absolute Neuts (auto) 10.6 H, Absolute Lymphs (auto) 2.65, Nucleated RBC % 0 06/09/21 05:00: Sodium 138, Potassium 4.5, Chloride 112 H, Carbon Dioxide 23.0, Anion Gap 3 L, BUN 17, Creatinine 1.01, Estim Creat Clear Calc 38.36, Est GFR (MDRD) Af Amer 68, Est GFR (MDRD) Non-Af 56 L, BUN/Creatinine Ratio 16.8, Glucose 202 H, Calcium 7.8 L Micro: Microbiology 06/04/21 Unknown Pelvic Abcess Gram Stain - Final 06/04/21 Unknown Pelvic Abcess Wound Culture - Preliminary Escherichia coli Pseudomonas aeroginosa 06/05/21 07:50 Blood Culture (Wb) - Right Wrist Blood Culture - Preliminary No growth in 48 hours. 06/05/21 08:05 Blood Culture (Wb) - Anticubital Right Blood Culture - Preliminary No growth in 48 hours. Radiography Diagnostic Testing: Radiology Impression Chest X-Ray 06/08/21 05:41 IMPRESSION: No acute abnormality. Electronically Signed: Thaddeus London MD at 7:07 EDT Reading Location ID and State: [facility] / [place] Tel , Service support , KUB X-Ray 06/08/21 05:41 IMPRESSION: There are dilated loops of bowel in the left flank. There is left ureteral stent. Electronically Signed: Thaddeus London MD at 7:05 EDT , Physical Exam Const oriented x3 and no apparent distress Resp normal respiratory effort Cardio regular rate and regular rhythm GI GI Narrative: Abdomen soft, nontender, distended, midline wound is clean and approximated with no drainage, ileostomy right lower quadrant is functioning with stool and gas, HUGH drain is leaking around the drain and draining significant amount of serosanguineous material. Assessment & Plan Assessment/Plan (1) Colovaginal fistula: (2) Colon obstruction: PLAN: Patient is making significant progress. HUGH drain left lower quadrant was removed and I placed a U suture of 3-0 nylon after using 2 cc of 1% lidocaine as a local anesthetic. Sterile dressings were applied. I do anticipate ongoing drainage. Mosher catheter will be removed. The patient clearly had evidence of a colovaginal fistula. This felt that this was likely causing the cross- contamination and the severe urinary tract infection. Will reinitiate clear liquids and advance as tolerate. At this point likely anticipating a discharge on Friday. Patient is still on Zosyn. Peripheral IV access has been exhausted and she still has a right central line. I will leave that for the IV Zosyn administra tion. Loki Wilson M.D., F.A.C.S.
--- NOTE | 2021-06-09 07:21 | NURSING ---
0610: at bedside, all procedures explained to pt. HUGH sutures removed and then drain pulled. Lidocaine solution injected locally by and then incision sutured closed w/cross-stitch. cleansed area, applied skin prep and then gauze drsg, secured by paper tape. tore down abd drsg, stated that it could remain [employer] as long as ileostomy remained w/good seal. ordered for F/C to be removed as well.
--- NOTE | 2021-06-09 07:28 | NURSING ---
0640: F/C removed as per orders, pt assisted up to BSC; bath given, linens changed. Pt asked to return to bed to rest a bit more. Pt very appreciative of all nursing care.
[2021-06-09] MEDS: Insulin Lispro 100 UNIT/ML INSULN.PEN SC ×4 (08:32→22:37)
[2021-06-09] MEDS: Atenolol 50 MG Tablet PO ×2 (08:34→22:51)
[2021-06-09] MEDS: Ensure Clear 120 ML Liquid PO ×4 (08:34→22:40)
[2021-06-09] MEDS: Pantoprazole Sodium 20 MG Tablet PO (08:37)
[2021-06-09 08:41] LABS: Bedside Glucose 188 mg/dL (74-106)
--- NOTE | 2021-06-09 12:32 | CASEMGMT ---
SW Note Referral Source: Hospice and Advanced Directives Referral Source: FLOR RANDALL was advised by Bridgett Agrawal that patient wants to complete advanced directives and that family wants hospice. TONIA spoke to reconciling clerk Aleks who said that they made referral and faxed referral packet to [facility]. SW met with patient and her 2 daughters in the room. Daughters had said that they were undetermined as to what the plan at discharge would be for patient. Family declined list of SNF in [facility] but took list for [facility] SNF's. SW reviewed Advanced Directives. Patient declined Living Will. Patient listed her 2 daughters as HCPOA and reported that she wanted no additional agents. SW made copy for patient, 2 daughters and chart of the HCPOA. SW explained the HCPOA and Living Will to patient and she verbalilzed understanding. SW also offered any opportunity to patient and her daughter for questions. All questions were answered. Plan: To be determined. HCPOA completed and copies given to family. Maria Esther CHAVEZ
--- NOTE | 2021-06-09 12:45 | PCM.PN.HOSP ---
Subjective Subjective Abdomen feeling better. Positive flatus. Objective Data Objective Data Vital Signs: Vital Signs Temp Pulse Resp BP Pulse Ox 36.8 C 82 18 125/59 H 100 06/09/21 08:00 06/09/21 08:00 06/09/21 08:00 06/09/21 08:00 06/09/21 08:00 Oxygen Flow Rate (L/min) 2 Oxygen Delivery Method Room Air Weight: 71.8 kg Body Mass Index (BMI) 27.8 Intake & Output: Intake and Output for Last 24 Hours 06/07/21 06/08/21 06/09/21 23:59 23:59 23:59 Intake Total 1012.35 / 1012.35 692.5 / 812.5 675.5 / 675.5 Output Total 3180 / 3180 1150 / 1545 1065 / 1065 Balance -2167.65 / -2167.65 -457.5 / -732.5 -389.5 / -389.5 Lab / Micro Data Result Diagrams: 06/09/21 05:00 06/09/21 05:00 Labs: Laboratory Results - last 24 hr 06/08/21 17:32: POC Glucose 198 H 06/08/21 21:22: POC Glucose 160 H 06/09/21 05:00: WBC 15.3 H, RBC 3.10 L, Hgb 9.3 L, Hct 27.5 L, MCV 88.7, MCH 30.0, MCHC 33.8, RDW Std Deviation 56.8 H, RDW Coeff of Monique 17.5 H, Plt Count 254, MPV 9.6, Immature Gran % (Auto) 1.500 H, Neut % (Auto) 69.4, Lymph % (Auto) 17.3 L, [place] % (Auto) 7.6, Eos % (Auto) 3.7, Baso % (Auto) 0.5, Absolute Neuts (auto) 10.6 H, Absolute Lymphs (auto) 2.65, Nucleated RBC % 0 06/09/21 05:00: Sodium 138, Potassium 4.5, Chloride 112 H, Carbon Dioxide 23.0, Anion Gap 3 L, BUN 17, Creatinine 1.01, Estim Creat Clear Calc 38.36, Est GFR (MDRD) Af Amer 68, Est GFR (MDRD) Non-Af 56 L, BUN/Creatinine Ratio 16.8, Glucose 202 H, Calcium 7.8 L 06/09/21 08:32: POC Glucose 188 H Micro: Microbiology 06/04/21 Unknown Pelvic Abcess Gram Stain - Final 06/04/21 Unknown Pelvic Abcess Wound Culture - Final Escherichia coli Pseudomonas aeroginosa 06/05/21 07:50 Blood Culture (Wb) - Right Wrist Blood Culture - Preliminary No growth in 48 hours. 06/05/21 08:05 Blood Culture (Wb) - Anticubital Right Blood Culture - Preliminary No growth in 48 hours. Physical Exam Const alert and no apparent distress Resp normal respiratory effort, no retractions, no use of accessory muscles and clear to auscultation bilaterally Cardio regular rate, regular rhythm, S1 normal heart sound and S2 normal heart sound GI normal to inspection, nondistended, normoactive bowel sounds and soft to palpation GI Narrative: Hypoactive bowel sounds Extremity normal to inspection Assessment & Plan Assessment/Plan (1) Colon obstruction: (2) Septic shock: PLAN: 1. Septic shock pressors weaned off 04/25 pelvic abscess + cultures for E. coli and P aeroginosa on Pip/tazo June 07 off pressors Consider infectious disease consultation for long-term recommendations. 2. Colovesical fistula, partial colonic obstruction-management per surgery. Status post OR 06/04/2021 with exploratory laparotomy with lysis of extensive adhesions with subsequent low anterior resection of the colon with primary anastomosis and diverting right lower quadrant ileostomy. Left ureteral stenting with anterior wall repair per urology. Ileus clinically improving Diet advance 3. Chronic heart failure with preserved ejection fraction-echocardiogram 10/2020 with EF 55%, RVSP estimated to be 51 mmHg. Furosemide on hold 4. Type 2 diabetes mellitus- Uncontrolled Accu-Cheks with sliding scale insulin. Hold oral regimen. add low-dose Basal 4. Chronic kidney disease stage IIIa- stable, trend BMP. 5. CAD with history of CABG- stable 6. PVD/PAD-history of angioplasty. Continue aspirin. Continue outpatient follow-up with vascular surgery. 7. Hyperlipidemia-statin allergy. 8. Hypertension-stable, continue current regimen. DVT prophylaxis- per surgery Charges/Coding Visit Charges Inpatient E&M: 16765 Subs Hosp L2
--- NOTE | 2021-06-09 13:14 | CASEMGMT ---
SW Note Referral Source: RN CM Referral Reason: Discharge planning SW met with patient and her 2 daughters. SW reviewed Advanced Directives. Patient w
[2021-06-09 13:25] LABS: Bedside Glucose 249 mg/dL (74-106)
--- NOTE | 2021-06-09 13:39 | CASEMGMT ---
Addendum entered by Maria Esther Adams 06/09/21 13:45: Original of Advanced Directive given to patient and 2 copies to daughter and 1 copy to chart. Patient given SNF list for [facility]. TONIA sent email to Leny advising patient wants to go to TCU. Maria Esther CHAVEZ Original Note: TONIA Note Referral Source: RN CHAYO Referral Reason: Advanced Directives SW met with patient and her 2 daughters in the room. SW reviewed Advanced Directives and patient and her family were educated on HCPOA and Living Will. Patient choose to complete HCPOA but not Living Will. This [employer] Store General Manager and RN witnessed patient's signature. Patient listed her 2 daughters as agents for HCPOA. SW discussed discharge planning. Daughters said that they are concerned if they can manage patient at home when discharged. SW provided list of SNF's in [facility]. Family inquired about financial assistance. Family said that patient's has Medicare however patient has no insurance. Family said that patient had applied for Medicaid in the past but denied and the situation in the home and income has not changed. Family also said that they had home health in the past. Family inquired about SNF prices. SW explained that they would be best to contact the SNF and inquire about prices. Family said that their first choice would be TCU for patient. Family said that they will call on Friday and talk to Kurt Hearn Liaison about pricing. SW agreed to make referral for TCU. Plan: To be determined. Family is interested in TCU. Maria Esther CHAVEZ
[2021-06-09 17:21] LABS: Bedside Glucose 286 mg/dL (74-106)
[2021-06-10] VITALS (7 sets, daily range): BP systolic 124–136; BP diastolic 51–60; PULSE 67–79; RESP 16–18; TEMP 36.3–36.6; O2SAT 98–99
[2021-06-10 00:11] LABS: Bedside Glucose 303 mg/dL (74-106)
[2021-06-10 05:27] LABS: Absolute Lymphocyte Count 3.01 X10^3/uL (0.83-4.51); Absolute Neutrophil Count 6.1 X10^3/uL (2.0-7.7); Basophil# 0.06 X10^3/uL; Basophil% 0.5 % (0-1); Eosinophil# 0.61 X10^3/uL; Eosinophils% 5.5 % (0-5); Hematocrit 25.7 % (37-47); Hemoglobin 8.7 g/dL (12.0-15.0); Lymphocyte # 3.01 X10^3/ul (0.83-4.51); Lymphocyte % 26.9 % (19-41); Mean Corp Hgb Conc 33.9 g/dL (32-36); Mean Corpuscular Hgb 29.6 pg (27.0-32.0); Mean Corpuscular Volume 87.4 fL (81-99); Mean Platelet Vol. 9.4 fl (6.2-12.0); Monocyte# 1.15 X10^3/uL; Monocyte% 10.3 % (0-10); NRBC Flagged by Analyzer 0 % (0-5); Neutrophil # 6.05 X10^3/uL (2.7-7.7); Neutrophil % 54.1 % (47-70); Platelet Count 245 K/mm3 (150-450); RBC Distribution Width CV 16.9 % (11.6-14.6); RBC Distribution Width SD 53.6 fl (35.1-43.9); Red Blood Count 2.94 M/mm3 (4.2-5.4); White Blood Count 11.2 K/mm3 (4.4-11.0)
[2021-06-10] MEDS: 0.9% Saline Lock 10 ML Syringe IV (05:40)
[2021-06-10] MEDS: Piperacil/Tazobactam 3.375 GM Q8 PREMIX IV ×3 (05:40→22:23)
[2021-06-10] MEDS: Menthol/Lanolin/Calamine/Znox 113 GM Tube 1 APPLIC TOPICAL ×3 (05:44→22:09)
[2021-06-10] MEDS: Insulin Lispro 100 UNIT/ML INSULN.PEN SC ×4 (06:41→22:17)
[2021-06-10 06:46] LABS: Bedside Glucose 162 mg/dL (74-106)
[2021-06-10] MEDS: Ensure Clear 120 ML Liquid PO ×3 (08:23→22:20)
[2021-06-10] MEDS: Atenolol 50 MG Tablet PO ×2 (08:24→22:20)
[2021-06-10] MEDS: Pantoprazole Sodium 20 MG Tablet PO (08:24)
--- NOTE | 2021-06-10 08:52 | PN.SURG_ITS ---
Subjective Subjective Patient reports he is passing stool and tolerating a diet with no abdominal pain Objective Data Objective Data Vital Signs: Vital Signs Temp Pulse Resp BP Pulse Ox 97.8 F 70 18 131/54 H 98 06/10/21 08:05 06/10/21 08:05 06/10/21 08:05 06/10/21 08:05 06/10/21 08:05 Oxygen Flow Rate (L/min) 2 Oxygen Delivery Method Room Air Weight: 155 lb 6.814 oz Body Mass Index (BMI) 27.8 Intake & Output: Intake and Output for Last 24 Hours 06/08/21 06/09/21 06/10/21 23:59 23:59 23:59 Intake Total 692.5 / 812.5 725.5 / 725.5 50 / 50 Output Total 1150 / 1545 1365 / 1615 250 / 250 Balance -457.5 / -732.5 -639.5 / -889.5 -200 / -200 Lab / Micro Data Result Diagrams: 06/10/21 05:20 06/09/21 05:00 Labs: Laboratory Results - last 24 hr 06/09/21 13:01: POC Glucose 249 H 06/09/21 17:05: POC Glucose 286 H 06/09/21 22:11: POC Glucose 303 H 06/10/21 05:20: WBC 11.2 H, RBC 2.94 L, Hgb 8.7 L, Hct 25.7 L, MCV 87.4, MCH 29.6, MCHC 33.9, RDW Std Deviation 53.6 H, RDW Coeff of Monique 16.9 H, Plt Count 245, MPV 9.4, Immature Gran % (Auto) 2.700 H, Neut % (Auto) 54.1, Lymph % (Auto) 26.9, [place] % (Auto) 10.3 H, Eos % (Auto) 5.5 H, Baso % (Auto) 0.5, Absolute Neuts (auto) 6.1, Absolute Lymphs (auto) 3.01, Nucleated RBC % 0 06/10/21 06:38: POC Glucose 162 H Micro: Microbiology 06/05/21 08:05 Blood Culture (Wb) - Anticubital Right Blood Culture - Final No growth in 5 days. 06/05/21 07:50 Blood Culture (Wb) - Right Wrist Blood Culture - Final No growth in 5 days. 06/04/21 Unknown Pelvic Abcess Gram Stain - Final 06/04/21 Unknown Pelvic Abcess Wound Culture - Final Escherichia coli Pseudomonas aeroginosa Physical Exam Const oriented x3 and no apparent distress Resp normal respiratory effort Cardio regular rate GI soft to palpation and non-tender Assessment & Plan Assessment/Plan (1) Colovaginal fistula: PLAN: Patient seems to be doing well. She has stool in her ileostomy bag and she is tolerating a diet. Her white count is returned normal and she is feeling well. Likely discharge tomorrow. Continue antibiotics. Benito Thompson MD Pager: [facility] [address] [place] [address], [address] [place] [address] Office:
--- NOTE | 2021-06-10 10:01 | NURSING ---
Patient's daughter provided this RN with a handwritten note reinforcing she does not feel that she and her sister are capable for caring for the patient at home upon discharge. I reassured her that we are aware and looking at SNF placement. Note placed on paper chart.
[2021-06-10 11:36] LABS: Bedside Glucose 369 mg/dL (74-106)
--- NOTE | 2021-06-10 11:43 | PN.HOSP_ITS ---
Subjective Subjective Patient seen and examined. She has no active complaints and feels better today. She was able to tolerate a diet. Review of systems is otherwise negative, she has remained hemodynamically stable. Objective Data Objective Data Vital Signs: Vital Signs Temp Pulse Resp BP Pulse Ox 97.8 F 70 18 131/54 H 98 06/10/21 08:05 06/10/21 08:05 06/10/21 08:05 06/10/21 08:05 06/10/21 08:05 Oxygen Flow Rate (L/min) 2 Oxygen Delivery Method Room Air Weight: 155 lb 6.814 oz Body Mass Index (BMI) 27.8 Intake & Output: Intake and Output for Last 24 Hours 06/08/21 06/09/21 06/10/21 23:59 23:59 23:59 Intake Total 692.5 / 812.5 725.5 / 725.5 50 / 50 Output Total 1150 / 1545 1365 / 1615 400 / 400 Balance -457.5 / -732.5 -639.5 / -889.5 -350 / -350 Lab / Micro Data Result Diagrams: 06/10/21 05:20 06/09/21 05:00 Labs: Laboratory Results - last 24 hr 06/09/21 13:01: POC Glucose 249 H 06/09/21 17:05: POC Glucose 286 H 06/09/21 22:11: POC Glucose 303 H 06/10/21 05:20: WBC 11.2 H, RBC 2.94 L, Hgb 8.7 L, Hct 25.7 L, MCV 87.4, MCH 29.6, MCHC 33.9, RDW Std Deviation 53.6 H, RDW Coeff of Monique 16.9 H, Plt Count 245, MPV 9.4, Immature Gran % (Auto) 2.700 H, Neut % (Auto) 54.1, Lymph % (Auto) 26.9, [place] % (Auto) 10.3 H, Eos % (Auto) 5.5 H, Baso % (Auto) 0.5, Absolute Neuts (auto) 6.1, Absolute Lymphs (auto) 3.01, Nucleated RBC % 0 06/10/21 06:38: POC Glucose 162 H 06/10/21 11:17: POC Glucose 369 H Micro: Microbiology 06/05/21 08:05 Blood Culture (Wb) - Anticubital Right Blood Culture - Final No growth in 5 days. 06/05/21 07:50 Blood Culture (Wb) - Right Wrist Blood Culture - Final No growth in 5 days. 06/04/21 Unknown Pelvic Abcess Gram Stain - Final 06/04/21 Unknown Pelvic Abcess Wound Culture - Final Escherichia coli Pseudomonas aeroginosa Physical Exam Const alert, oriented x3 and no apparent distress Exam Limitations: no limitations HEENT head/scalp atraumatic HEENT Narrative: Looks very pale Head and Scalp: normocephalic Mouth: dry mucous membranes Resp normal respiratory effort, no retractions, no use of accessory muscles and clear to auscultation bilaterally Cardio regular rate, regular rhythm, S1 normal heart sound, S2 normal heart sound and no murmurs GI GI Narrative: abdomen distended, has colostomy bag in place; audible bowel sounds Extremity normal to inspection, full ROM and no clubbing, cyanosis or edema Peripheral Pulses: Yes pulses 2+ throughout Skin no rashes or lesions noted Neuro oriented x3, CN's II-XII intact bilaterally and moves all extremities Sensorium / Orientation: awake Psych affect normal Assessment & Plan Assessment/Plan (1) Septic shock: (2) Colovaginal fistula: (3) Delayed postoperative wound closure: PLAN: #Septic shock * resolved. 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 Accuchecks ACHS. On carmen meds. On Lantus 8 units nightly. #CKD stage IIIa; stable. Trend BMP #CAD s/p CABG * on aspirin * #PAD: s/o angioplasty. on aspirin. To follow up [facility] vascular surgery on outpatient basis Hyperlipidemia: Not on statin on account of history of allergies. #Hypertension: On atenolol. amlodipine and lisinopril on hold GI prophylaxis: PPI DVT prophylaxis: SCDs Charges/Coding Visit Charges Inpatient E&M: 48686 Subs Hosp L2
[2021-06-10 16:36] LABS: Bedside Glucose 260 mg/dL (74-106)
[2021-06-11] VITALS (9 sets, daily range): BP systolic 121–144; BP diastolic 57–65; PULSE 65–80; RESP 16–18; TEMP 36.2–36.6; O2SAT 96–100
[2021-06-11 00:36] LABS: Bedside Glucose 308 mg/dL (74-106)
[2021-06-11 05:50] LABS: Absolute Lymphocyte Count 2.85 X10^3/uL (0.83-4.51); Absolute Neutrophil Count 4.3 X10^3/uL (2.0-7.7); Basophil# 0.06 X10^3/uL; Basophil% 0.6 % (0-1); Eosinophil# 0.48 X10^3/uL; Eosinophils% 5.1 % (0-5); Hematocrit 24.8 % (37-47); Hemoglobin 8.7 g/dL (12.0-15.0); Lymphocyte # 2.85 X10^3/ul (0.83-4.51); Lymphocyte % 30.1 % (19-41); Mean Corp Hgb Conc 35.1 g/dL (32-36); Mean Corpuscular Hgb 30.4 pg (27.0-32.0); Mean Corpuscular Volume 86.7 fL (81-99); Mean Platelet Vol. 9.5 fl (6.2-12.0); Monocyte# 1.32 X10^3/uL; NRBC Flagged by Analyzer 0 % (0-5); Neutrophil # 4.34 X10^3/uL (2.7-7.7); Neutrophil % 45.9 % (47-70); Platelet Count 240 K/mm3 (150-450); RBC Distribution Width CV 16.6 % (11.6-14.6); RBC Distribution Width SD 51.3 fl (35.1-43.9); Red Blood Count 2.86 M/mm3 (4.2-5.4); White Blood Count 9.5 K/mm3 (4.4-11.0)
[2021-06-11] MEDS: 0.9% Saline Lock 10 ML Syringe IV (06:23)
[2021-06-11] MEDS: Piperacil/Tazobactam 3.375 GM Q8 PREMIX IV ×2 (06:23→13:30)
--- NOTE | 2021-06-11 06:23 | VDLE_ITS ---
Reason For Study: Swelling RIGHT LEFT CFV is compressible, spontaneous, phasic, CFV is compressible, spontaneous, phasic, competent and demonstrates normal competent, and demonstrates normal augmentation. augmentation. FV is compressible, spontaneous, phasic, FV is compressible, spontaneous, phasic, competent and demonstrates normal competent and demonstrates normal augmentation. augmentation. POP V is compressible, spontaneous, phasic, POP V is compressible, spontaneous, phasic, competent and demonstrates normal competent and demonstrates normal augmentation. augmentation. T/P Trunk is compressible. T/P Trunk is compressible. PTV is compressible. PTV is compressible. RT PerV is compressible. LT PerV is compressible. Rt GSV harvested for CABG. Lt GSV harvested for CABG. Procedure This is a venous duplex using B-mode, color flow and spectral Doppler. Exam performed portable in patient room. A preliminary report was called and/or faxed to Cathie RAY. VL/Venous Duplex US - Jb Extrem Interpretation Summary No evidence for acute deep venous thrombosis bilateral lower extremities. Surgically removed bilateral great saphenous veins Ordering Physician: Loki Wilson Referring Physician: Kelsy Mensah Performed By: Margarita Chacon, ALAN, RVT
--- NOTE | 2021-06-11 06:23 | PN.SURG_ITS ---
Subjective Subjective She continues to feel better. Copious stool and flatus in her ileostomy bag. Very minimal per rectum. Her primary concern is bilateral leg swelling. She thinks that this is secondary to her not being on her furosemide therapy. She is anxious to go home Objective Data Objective Data Vital Signs: Vital Signs Temp Pulse Resp BP Pulse Ox 97.9 F 73 16 138/65 H 97 06/11/21 02:05 06/11/21 03:00 06/11/21 02:05 06/11/21 02:05 06/11/21 02:05 Oxygen Flow Rate (L/min) 2 Oxygen Delivery Method Room Air Weight: 157 lb 3.033 oz Body Mass Index (BMI) 27.8 Intake & Output: Intake and Output for Last 24 Hours 06/09/21 06/10/21 06/11/21 23:59 23:59 23:59 Intake Total 725.5 / 725.5 150 / 150 50 / 50 Output Total 1365 / 1615 400 / 700 300 / 300 Balance -639.5 / -889.5 -250 / -550 -250 / -250 Lab / Micro Data Result Diagrams: 06/11/21 05:40 06/09/21 05:00 Labs: Laboratory Results - last 24 hr 06/10/21 06:38: POC Glucose 162 H 06/10/21 11:17: POC Glucose 369 H 06/10/21 16:22: POC Glucose 260 H 06/10/21 22:14: POC Glucose 308 H 06/11/21 05:40: WBC 9.5, RBC 2.86 L, Hgb 8.7 L, Hct 24.8 L, MCV 86.7, MCH 30.4, MCHC 35.1, RDW Std Deviation 51.3 H, RDW Coeff of Monique 16.6 H, Plt Count 240, MPV 9.5, Immature Gran % (Auto) 4.300 H, Neut % (Auto) 45.9 L, Lymph % (Auto) 30.1, [place] % (Auto) 14.0 H, Eos % (Auto) 5.1 H, Baso % (Auto) 0.6, Absolute Neuts (auto) 4.3, Absolute Lymphs (auto) 2.85, Nucleated RBC % 0 Micro: Microbiology 06/05/21 08:05 Blood Culture (Wb) - Anticubital Right Blood Culture - Final No growth in 5 days. 06/05/21 07:50 Blood Culture (Wb) - Right Wrist Blood Culture - Final No growth in 5 days. 06/04/21 Unknown Pelvic Abcess Gram Stain - Final 06/04/21 Unknown Pelvic Abcess Wound Culture - Final Escherichia coli Pseudomonas aeroginosa Physical Exam GI GI Narrative: Soft, mildly distended, nontender, midline wound approximated clean and dry, left lower quadrant drain site clean and dry, ileostomy right lower quadrant functioning Extremity Extremity Narrative: Bilateral lower extremity have 1-2+ pitting edema Assessment & Plan Assessment/Plan (1) Leg swelling: PLAN: Patient's bilateral lower extremity swelling may indeed be due to lack of diuretic therapy. We will obtain venous duplex imaging. The patient otherwise is ready for discharge today. She will need to be reviewed by the hospitalist service for h ome-going medication recommendations The patient's white blood cell count is completely normalized. I will not be prescribing home-going antibiotics. She is voiding well. She will have a follow-up appoint with in 2 weeks for follow-up of her left ureteral stent. She needs to have a follow-up with general surgery myself June 14, 2021 to review her ongoing progress in her abdominal midline wound. At this time I am still anticipating approximately a 3-month period of healing and recovery prior to takedown of her ileostomy The patient is aware that her final pathology was consistent with benign diverticular disease Loki Wilson M.D., F.A.C.S.
[2021-06-11] MEDS: Menthol/Lanolin/Calamine/Znox 113 GM Tube 1 APPLIC TOPICAL ×2 (06:24→13:23)
[2021-06-11] MEDS: Insulin Lispro 100 UNIT/ML INSULN.PEN SC ×2 (06:27→13:34)
[2021-06-11 06:36] LABS: Bedside Glucose 194 mg/dL (74-106)
--- NOTE | 2021-06-11 07:30 | PN.HOSP_ITS ---
Subjective Subjective Patient seen and examined. She has no active complaint today. She is concerned about her lower extremity swelling. She denies any nausea, vomiting, shortness of breath or any other symptoms. Review of systems otherwise negative. She has remained hemodynamically stable otherwise. Objective Data Objective Data Vital Signs: Vital Signs Temp Pulse Resp BP Pulse Ox 97.9 F 73 16 138/65 H 96 06/11/21 02:05 06/11/21 03:00 06/11/21 02:05 06/11/21 02:05 06/11/21 07:26 Oxygen Flow Rate (L/min) 2 Oxygen Delivery Method Room Air Weight: 157 lb 3.033 oz Body Mass Index (BMI) 27.8 Intake & Output: Intake and Output for Last 24 Hours 06/09/21 06/10/21 06/11/21 23:59 23:59 23:59 Intake Total 725.5 / 725.5 150 / 150 50 / 50 Output Total 1365 / 1615 400 / 700 300 / 300 Balance -639.5 / -889.5 -250 / -550 -250 / -250 Lab / Micro Data Result Diagrams: 06/11/21 05:40 06/09/21 05:00 Labs: Laboratory Results - last 24 hr 06/10/21 11:17: POC Glucose 369 H 06/10/21 16:22: POC Glucose 260 H 06/10/21 22:14: POC Glucose 308 H 06/11/21 05:40: WBC 9.5, RBC 2.86 L, Hgb 8.7 L, Hct 24.8 L, MCV 86.7, MCH 30.4, MCHC 35.1, RDW Std Deviation 51.3 H, RDW Coeff of Monique 16.6 H, Plt Count 240, MPV 9.5, Immature Gran % (Auto) 4.300 H, Neut % (Auto) 45.9 L, Lymph % (Auto) 30.1, [place] % (Auto) 14.0 H, Eos % (Auto) 5.1 H, Baso % (Auto) 0.6, Absolute Neuts (auto) 4.3, Absolute Lymphs (auto) 2.85, Nucleated RBC % 0 06/11/21 06:26: POC Glucose 194 H Micro: Microbiology 06/05/21 08:05 Blood Culture (Wb) - Anticubital Right Blood Culture - Final No growth in 5 days. 06/05/21 07:50 Blood Culture (Wb) - Right Wrist Blood Culture - Final No growth in 5 days. 06/04/21 Unknown Pelvic Abcess Gram Stain - Final 06/04/21 Unknown Pelvic Abcess Wound Culture - Final Escherichia coli Pseudomonas aeroginosa Physical Exam Const alert, oriented x3 and no apparent distress Constitutional Narrative: Drowsy Orientation / Consciousness: oriented to person, oriented to place and oriented to time Exam Limitations: no limitations HEENT normocephalic and head/scalp atraumatic Head and Scalp: normocephalic Eyes PERRL, EOMs intact bilaterally and conjunctivae normal Neck no lymphadenopathy Resp normal respiratory effort, no retractions, no use of accessory muscles and clear to auscultation bilaterally Auscultation: diminished lung sounds Cardio regular rate, regular rhythm, S1 normal heart sound, S2 normal heart sound and no murmurs Peripheral Pulses: pulses 2+ throughout GI normal to inspection, nondistended, normoactive bowel sounds, soft to palpation, non-tender and non-distended GI Narrative: abdomen distended, has colostomy bag in place; audible bowel sounds Extremity normal to inspection and full ROM Extremity Narrative: 1+ bipedal pitting edema Peripheral Pulses: Yes pulses 2+ throughout Skin no rashes or lesions noted Lesions: no lesions Rashes: no rashes Trauma: no lacerations or abrasions Neuro oriented x3, CN's II-XII intact bilaterally, moves all extremities, no focal motor deficits, no sensory deficits noted and deep tendon reflexes 2+ bilaterally Sensorium / Orientation: awake and alert Psych mental status grossly normal and affect normal Assessment & Plan Assessment/Plan (1) Septic shock: (2) Colovaginal fistula: (3) Delayed postoperative wound closure: PLAN: #Septic shock * resolved. 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 Will resume lasix. Duplex also being done today to assess for DVT * #Type 2 diabetes mellitus: on ISS. Accuchecks ACHS. On carmen meds. On Lantus 8 units nightly. #CKD stage IIIa; stable. Trend BMP #CAD s/p CABG * on aspirin * #PAD: s/o angioplasty. on aspirin. To follow up [facility] vascular surgery on outpatient basis Hyperlipidemia: Not on statin on account of history of allergies. #Hypertension: On atenolol. amlodipine and lisinopril on hold GI prophylaxis: PPI DVT prophylaxis: SCDs Disposition: ok for dc for hospitalist standpoint Charges/Coding Visit Charges Inpatient E&M: 25834 Subs Hosp L2
--- NOTE | 2021-06-11 09:57 | WOUNDNOTE ---
Pt sitting up in chair. states she has been feeling well and has been up ambulating. states she ambulated the halls 4 times on Friday. pt states the plan is for discharge home today. This nurse plans to do more teaching with daughters Kaley today for ostomy appliance change. Pt states she will let this nurse know when daughters arrive. There is a note on the front of the chart from the daughters requesting that the patient not be discharged home and both feel that patient could benefit from a stay at a [place] [facility] care facility prior to going home. patient requests to go home and states she is getting around well and eating well. will talk with daughters once they arrive today. Ostomy appliance emptied for approx 250cc's soft unformed brown stool. pt denies further need at this time.
[2021-06-11] MEDS: Atenolol 50 MG Tablet PO (10:03)
[2021-06-11] MEDS: Pantoprazole Sodium 20 MG Tablet PO (10:03)
--- NOTE | 2021-06-11 10:08 | CASEMGMT ---
TONIA reviewed a note on patient's chart that indicated family is not able to take care of patient at home. TONIA also noted the SW on Friday spoke to the daughters and they told her they cannot care for patient. SW met with patient and asked her about this. She said she is going home. Patient asked SW to please call her daughter Zacarias. Kaitlyn called in to [facility] and TONIA spoke with her. Kaitlyn said the plans have changed and they are going to try and take patient home. TONIA let her know patient is ready today. Kaitlyn asked that someone call her when it is okay to pick pulling machine tender patient. TONIA spoke with patient again and let her know about conversation SW had with Kaitlyn. TONIA also let RN know that plan is home and Kaitlyn asked that she notify her when patient can get picked up. Plan: Home with family. Tyesha JENSEN
--- NOTE | 2021-06-11 11:24 | CASEMGMT ---
Addendum entered by Bridgett Varghese 06/11/21 11:27: FLOR DOMINGO received call back from [facility] and they are able to accept the patient with start of care planned for tomorrow. FLOR DOMINGO pinedo and updated daughter Kaitlyn. Kaitlyn had no further questions or concerns at this time. Original Note: FLOR DOMINGO updated that patient will be going home at discharge. FLOR DOMINGO called daughter Kaitlyn to inquire if they would like [facility] at discharge. Kaitlyn stated she would like [facility] and prefers [facility]. FLOR DOMINGO called and made referral to [facility], awaiting call back. CM will continue to follow this patient and plan for a safe discharge.
--- NOTE | 2021-06-11 12:34 | PCM.DC.SUM ---
Providers Date of Admission: 06/04/21 Primary Care Physician: Dr. Kelsy Mensah MD Consultations 06/04/21 18:03 Consult: Hospitalist NOW Consulting Provider: Loki Wilson Reason for Consult: Medical management EMERGENT Consult: Yes MD Notified: Yes Date Notified: 06/04/21 Time Notified: 17:51 Method of Notification: Provider Initiated Method of Consult:: In-Person 06/04/21 18:03 Consult: Onc/Wound/lead based paint technician Routine Comment: Reason for Consult:: Midline wound partial closure, diverting ileostomy Reason For Visit: Pre-Surgical Testing Diagnosis Discharge Diagnosis (1) Septic shock: Status: Acute Code(s): A41.9 - Sepsis, unspecified organism; R65.21 - Severe sepsis with septic shock (2) Colovaginal fistula: Status: Acute Code(s): N82.4 - Other female intestinal-genital tract fistulae (3) Delayed postoperative wound closure: Status: Acute Code(s): Z48.1 - Encounter for planned postprocedural wound closure Medications at Discharge Home Medications glyburide 5 mg PO DAILY@0800 08/26/15 metformin 500 mg PO TIDCM 08/26/15 ascorbic acid (vitamin C) 500 mg PO DAILY@1200 12/09/16 atenolol 50 mg PO BID 12/09/16 cholecalciferol (vitamin D3) 1,000 unit PO DAILY@1200 12/09/16 cyanocobalamin (vitamin B-12) 1,000 mcg PO DAILY@1200 12/09/16 multivitamin 1 ea PO DAILY@119912/09/16 omega-3 fatty acids-fish oil 1 cap PO BID 12/09/16 aspirin 81 mg PO DAILY 06/11/17 magnesium oxide 400 mg PO DAILY@1200 03/01/20 amlodipine 10 mg PO DAILY 09/29/20 furosemide 40 mg PO DAILY 05/31/21 lisinopril 30 mg PO DAILY 05/31/21 Hospital Course Operations colectomy (Exploratory laparotomy with lysis of extensive adhesions of over 1 hour with subsequent low anterior resection of the colon with primary anastomosis and diverting right lower quadrant ileostomy Temporary right ureteral stenting. Left ureteral stenting with anterior wall repair per Dr. 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 Dr. Wilson performed a Exploratory laparotomy with lysis of extensive adhesions of over 1 hour with subsequent low anterior resection of the colon with primary anastomosis and diverting right lower quadrant ileostomy Temporary right ureteral stenting. Left ureteral stenting with anterior wall repair per Dr. Hobson on 06/04/21. Patient tolerated the procedure well. Immediately post-operatively, patient remained stable. Overnight, patient was noted to have hypotension secondary to potentially being overmedicated with hypertensives preoperatively and septic shock from the fistula formation with abscess. Patient was provided with 4.5 liters of fluid overnight. Her blood pressure unfortunately did not recover, requiring transfer to ICU on POD #1. Patient was gently placed on Levophed to assist with her blood pressure on POD #1. Patient's vessels were noted to be calcified during the procedure and caution with Levophed was taken into consideration not to cause ischemic colitis. POD #2, patient appeared to be recovering well. She noted more energy and overall felt improved. She had noted liquid stool within her ileostomy. She had also noted multiple bowel movements from her rectum over night. POD #3, patient had been discontinued off of Levophed. She had a delayed primary closure completed at bedside of her midline incision and tolerated this well. She was transferred out of ICU to a step down unit on POD #5. POD #5, HUGH drain was removed. Mosher catheter was removed. Patient was started on transitional diet and was tolerating this well. Zosyn was continued as cultures returned from surgery as E Coli and pseudomonas. POD #7, patient was discharged having copious amounts of stool and flatus in her ileostomy bag. Very little out her rectum. She has denies abdominal pain/discomfort. She was tolerating her diet well without nausea, vomiting. She was concerned of bilateral lower extremity edema. DVT study was ordered and was negative for lower extremity blood clots. She had her furosemide held during her hospitalization due to her blood pressure. Patient was placed back on her furosemide at discharge. She was also noted to have hyperglycemia on day of discharge, which was corrected by the hospitalist and recommended the patient follow-up with her primary care physician as an outpatient. Weight / BMI Weight Weight: 157 lb 3.033 oz Body Mass Index (BMI) 27.8 ABG / Lab / Microbiology Data Result Diagrams: 06/11/21 05:40 06/09/21 05:00 Laboratory: Laboratory Results - last 24 hr 06/10/21 16:22: POC Glucose 260 H 06/10/21 22:14: POC Glucose 308 H 06/11/21 05:40: WBC 9.5, RBC 2.86 L, Hgb 8.7 L, Hct 24.8 L, MCV 86.7, MCH 30.4, MCHC 35.1, RDW Std Deviation 51.3 H, RDW Coeff of Monique 16.6 H, Plt Count 240, MPV 9.5, Immature Gran % (Auto) 4.300 H, Neut % (Auto) 45.9 L, Lymph % (Auto) 30.1, Thomas % (Auto) 14.0 H, Eos % (Auto) 5.1 H, Baso % (Auto) 0.6, Absolute Neuts (auto) 4.3, Absolute Lymphs (auto) 2.85, Nucleated RBC % 0 06/11/21 06:26: POC Glucose 194 H Microbiology: Microbiology 06/05/21 08:05 Blood Culture (Wb) - Anticubital Right Blood Culture - Final No growth in 5 days. 06/05/21 07:50 Blood Culture (Wb) - Right Wrist Blood Culture - Final No growth in 5 days. 06/04/21 Unknown Pelvic Abcess Gram Stain - Final 06/04/21 Unknown Pelvic Abcess Wound Culture - Final Escherichia coli Pseudomonas aeroginosa Radiography Diagnostic Testing: Radiology Impression Venous Doppler Study 06/11/21 06:23 Interpretation Summary No evidence for acute deep venous thrombosis bilateral lower extremities. Surgically removed bilateral great saphenous veins Ordering Physician: Loki Wilson Referring Physician: Kelsy Mensah Performed By: Margarita Chacon, RDCS, RVT D/C Instructions Discharge Diet: Light diet - advance as tolerated and 1600 Calorie Control Diet Weight Bearing Status: Full weight bearing Call your doctor if your incision/area has: Continuous Slow Oozing, Sudden Increased Bleeding and Increased Pain/ Swelling Call your doctor if you observe: Fever of 101 or Higher Suture Line Care: Avoid Pulling/Pushing Additional Dressing/Incision Instructions: Ileostomy care as per instructions. You may shower over your midline wound. Pat dry and then apply dry gauze dressings as needed to protect the incision Please Follow Up With: Loki Wilson MD When: Please call [phone] for office follow-up June 14, 2021 Meaningful Use Info Meaningful Use Diagnoses (Choose all that apply): None applicable Discharge Plan Admission Admit Date/Time: 06/04/21 09:35 Attending Provider: Paulina Evans Primary Care Provider: Kelsy Mensah Consulting Providers: Loki Wilson Discharge Orders/Prescriptions Prescriptions: Continued metformin 500 MG tablet 500 mg PO TIDCM RF: 0 glyburide 5 MG tablet 5 mg PO DAILY@0800 RF: 0 multivitamin 1 EACH tablet 1 ea PO DAILY@1200 RF: 0 cyanocobalamin (vitamin B-12) 1,000 MCG tablet 1,000 mcg PO DAILY@1200 RF: 0 ascorbic acid (vitamin C) 500 MG tablet 500 mg PO DAILY@1200 RF: 0 atenolol 50 MG tablet 50 mg PO BID RF: 0 cholecalciferol (vitamin D3) 1,000 UNIT capsule 1,000 unit PO DAILY@1200 RF: 0 omega-3 fatty acids-fish oil 1 EACH capsule,delayed release(DR/EC) 1 cap PO BID RF: 0 aspirin 81 MG tablet,chewable 81 mg PO DAILY RF: 0 magnesium oxide 400 MG tablet 400 mg PO DAILY@1200 RF: 0 amlodipine 10 MG tablet 10 mg PO DAILY RF: 0 furosemide 40 mg tablet 40 mg PO DAILY RF: 0 lisinopril 10 mg tablet 30 mg PO DAILY RF: 0 Referrals / Follow Up: Kelsy Mensah MD [Primary Care Provider] - Disposition Disposition (needs filled in before D/C Order can be placed): Home Health Service Charges/Coding Visit Charges Inpatient E&M: 51753 Disch Hosp (post-op)
[2021-06-11 14:16] LABS: Bedside Glucose 484 mg/dL (74-106)
[2021-06-11 14:16] LABS: Bedside Glucose > 500 mg/dL (74-106)
--- NOTE | 2021-06-11 14:40 | WOUNDNOTE ---
This nurse did more ostomy teaching with daughters Xochilt and Kaitlyn. removed the ostomy appliance. stoma remains pink and moist. sits just above the skin level. stoma size remains the same. pattern cut out for the daughters. did educate both daughters that the stoma size can change for the next 6-7 weeks so they may need to adjust the size of the opening. peristomal skin is intact. cleansed the skin with warm water. pat dry. after flange opening was cut to size, the backing was removed, stoma paste applied, and the flange was placed around the stoma. the pouch was snapped in place. both daughters state yes I think we can do that. You make it look very easy. Pt will also have home health for a while to perform more teaching with the family. a step by step print out of how to change the appliance sent with daughters as well. patient will be sent home with 3 appliances and Kaitlyn states she ordered the supplies for home as well. patient and daughters appreciative of care and deny further questions.
[2021-06-11 14:41] LABS: Bedside Glucose 448 mg/dL (74-106)
[2021-06-11] MEDS: Insulin Lispro 100 UNIT/ML INSULN.PEN 15 UNIT SC (14:57)
[2021-06-11 16:05] LABS: Bedside Glucose 281 mg/dL (74-106)
== END 2021-06-11 17:28 | disposition home health service (06) | DRG 329 ==
LOC: ACINP 09:38 → PCU 18:34 → ICU 06-05 09:07 → PCU 06-09 10:47
PROVIDERS: Anesthesiology; Hospitalist; Internal Medicine Critical Care Medicine; Nurse Practitioner Family; Admitting Provider Surgery; PCP Internal Medicine; Referring Provider Surgery; Visit Provider Student in an Organized Health Care Education/Training Program
PROC: 0DTN0ZZ Resection of Sigmoid Colon, Open Approach (ICD-10-PCS; CPT 44204; principal; 2021-06-04 11:20)
DX: K56.609 Unspecified intestinal obstruction, unspecified as to partial versus complete obstruction (principal); R65.21 Severe sepsis with septic shock; A41.9 Sepsis, unspecified organism; N73.0 Acute parametritis and pelvic cellulitis; I13.0 Hypertensive heart and chronic kidney disease with heart failure and stage 1 through stage 4 chronic kidney disease, or unspecified chronic kidney disease; I50.32 Chronic diastolic (congestive) heart failure; K57.32 Diverticulitis of large intestine without perforation or abscess without bleeding; N99.71 Accidental puncture and laceration of a genitourinary system organ or structure during a genitourinary system procedure; N32.1 Vesicointestinal fistula; N82.3 Fistula of vagina to large intestine; I27.20 Pulmonary hypertension, unspecified; E11.22 Type 2 diabetes mellitus with diabetic chronic kidney disease; B96.20 Unspecified Escherichia coli [E. coli] as the cause of diseases classified elsewhere; I95.9 Hypotension, unspecified; E11.51 Type 2 diabetes mellitus with diabetic peripheral angiopathy without gangrene; M06.9 Rheumatoid arthritis, unspecified; N18.31 Chronic kidney disease, stage 3a; K56.7 Ileus, unspecified; F41.9 Anxiety disorder, unspecified; E78.00 Pure hypercholesterolemia, unspecified; M19.90 Unspecified osteoarthritis, unspecified site; I25.2 Old myocardial infarction; E87.6 Hypokalemia; I25.10 Atherosclerotic heart disease of native coronary artery without angina pectoris; Z48.1 Encounter for planned postprocedural wound closure; Z87.19 Personal history of other diseases of the digestive system; Z87.442 Personal history of urinary calculi; Z90.49 Acquired absence of other specified parts of digestive tract; Z87.440 Personal history of urinary (tract) infections; Z95.1 Presence of aortocoronary bypass graft; Z79.82 Long term (current) use of aspirin; Z79.84 Long term (current) use of oral hypoglycemic drugs; Z79.899 Other long term (current) drug therapy; Y92.234 Operating room of hospital as the place of occurrence of the external cause; K66.0 Peritoneal adhesions (postprocedural) (postinfection)
CPT/HCPCS: 36415; 71045; 74018; 80048; 82962; 83036; 83605; 83735; 84132; 85014; 85018; 85025; 85027; 86850; 86900; 86901; 86902; 86920; 86922; 87040; 87070; 87075; 87077; 87184; 87186; 87205; 88304; 88305; 88307; 93005; 93970; 97110; 97163; 97166; 97530; 97535; 97803; 99251; J7030; J7040; J7050; J7120; A4216; C1751; C1760; C1769; C2617; G0463; J1940; J2405; J3490

== ENCOUNTER 2021-07-18 08:33 | Inpatient (IN) | payer OTHER, SELFPAY ==
[2021-07-18] VITALS (13 sets, daily range): BP systolic 124–147; BP diastolic 42–109; PULSE 25–86; RESP 10–22; TEMP 35.7–37; O2SAT 96–100; BMI 23.1; BMI 23.7
--- NOTE | 2021-07-18 08:38 | EKG12_ITS ---
Test Reason : VARUN Blood Pressure : / mmHG Vent. Rate : 029 BPM Atrial Rate : 094 BPM P-R Int : 000 ms QRS Dur : 122 ms QT Int : 576 ms P-R-T Axes : 000 065 054 degrees QTc Int : 400 ms Idioventricular rhythm Abnormal ECG Confirmed by DASHAWN HUTTON, MCKENNA ([id number]), editor at large PRIYANKA VUONG ([id number]) on 07/20/2021 10:15:47 AM Referred By: PAULA Confirmed By:MCKENNA TAMEZ MD
[2021-07-18] MEDS: 0.9% Normal Saline 1,000 ML 1000 ML IV (08:43)
[2021-07-18 08:45] LABS: Absolute Lymphocyte Count 3.66 X10^3/uL (0.83-4.51); Absolute Neutrophil Count 13.9 X10^3/uL (2.0-7.7); Basophil# 0.04 X10^3/uL; Basophil% 0.2 % (0-1); Eosinophil# 0.01 X10^3/uL; Eosinophils% 0.1 % (0-5); Hematocrit 32.7 % (37-47); Hemoglobin 11.5 g/dL (12.0-15.0); Lymphocyte # 3.66 X10^3/ul (0.83-4.51); Lymphocyte % 20.2 % (19-41); Mean Corp Hgb Conc 35.2 g/dL (32-36); Mean Corpuscular Hgb 29.9 pg (27.0-32.0); Mean Corpuscular Volume 85.2 fL (81-99); Mean Platelet Vol. 10.4 fl (6.2-12.0); Monocyte# 0.42 X10^3/uL; Monocyte% 2.3 % (0-10); NRBC Flagged by Analyzer 0 % (0-5); Neutrophil % 76.8 % (47-70); Platelet Count 322 K/mm3 (150-450); RBC Distribution Width SD 46.7 fl (35.1-43.9); Red Blood Count 3.84 M/mm3 (4.2-5.4); White Blood Count 18.1 K/mm3 (4.4-11.0)
[2021-07-18] MEDS: Metoclopramide 10 MG/2 ML Vial 5 MG IV (09:02)
[2021-07-18] MEDS: 0.9% Normal Saline 1,000 ML 999 ML IV (09:02)
[2021-07-18 09:07] LABS: AST(SGOT) 13 U/L (15-37); Alanine Aminotransfer ALT/SGPT 17 U/L (13-56); Albumin, Serum 3.4 g/dL (3.2-5.0); Alkaline Phosphatase 68 U/L (45-117); Anion Gap 16 (5-15); BUN 158 mg/dL (7-18); Bilirubin, Direct 0.17 mg/dL (0.00-0.30); Calcium,Total 9.8 mg/dL (8.5-10.1); Chloride 95 mmol/L (98-107); Creatinine, Serum 8.32 mg/dL (0.55-1.02); EST Glomerular Filtration Rate 5 mL/min (>60); Est Glom Filt Rate - Afr Amer 6 mL/min (>60); Estimated Creatinine Clearance 4.66 ml/min; Globulin 5.2 g/dL (2.2-4.2); Glucose 200 mg/dL (74-106); Lipase 3138 U/L (73-393); Potassium 8.8 mmol/L (3.5-5.1); Protein, Total 8.6 g/dL (6.4-8.2); Sodium Level 127 mmol/L (136-145); Troponin-I HS 4 pg/mL (3.0-54.0)
[2021-07-18] MEDS: Dextrose 10%-Water 250 ML 999 ML IV ×2 (09:15→16:10)
[2021-07-18] MEDS: Insulin Lispro 10 UNIT in Syringe 0 ML 6 UNIT IV ×2 (09:34→16:09)
[2021-07-18] MEDS: Calcium Gluconate IV 3 GM in Syringe 1 EACH IV (09:34)
[2021-07-18] MEDS: 0.9% Normal Saline 1,000 ML 200 ML IV ×2 (10:35→16:10)
--- NOTE | 2021-07-18 12:05 | EDS_ITS ---
HPI History of Present Illness Chief Complaint: Nausea/Vomiting Informant: patient, family and EMS Onset/Context/Timing Onset: Yesterday Narrative Narrative: Patient presents via EMS secondary to nausea, vomiting, and weakness. On arrival EMS notes that the patient's heart rate has been dropping into the 20s during transport. Patient reports developing nausea and vomiting yesterday. She is not able to keep anything down. No fever. No significant abdominal pain. Patient was admitted approximately 6 weeks ago with abdominal pain. She was found to have a colonic vaginal fistula that was repaired surgically. She was treated for septic shock. [facility] Medical History Abdominal pain Arthritis Back pain Bilateral leg pain Breast lump in female Cardiology follow-up encounter Cataracts, bilateral CKD (chronic kidney disease) Colovaginal fistula Colovesical fistula Controlled type 2 diabetes mellitus with hyperglycemia Delayed wound healing Diabetes Dietary restriction Diverticulitis large intestine Diverticulosis Heart failure High blood pressure High cholesterol History of diverticulitis History of echocardiogram History of edema History of heart attack Ileostomy in place Kidney stones Loss of hearing Non-smoker Open wound Osteoarthritis Peripheral arterial disease Rheumatoid arthritis Shortness of breath on exertion Type 2 diabetes mellitus with diabetic polyneuropathy Ulcer of right foot with necrosis of bone Ulcer of right lower extremity with muscle involvement without evidence of necrosis Unspecified protein-calorie malnutrition Wears glasses Home Medications glyburide 5 mg PO DAILY@0800 08/26/15 [History Last Taken 11/01/20] metformin 500 mg PO TIDCM 08/26/15 [History Last Taken 11/01/20] ascorbic acid (vitamin C) 500 mg PO DAILY@1200 12/09/16 [History Last Taken 11/01/20] atenolol 50 mg PO BID 12/09/16 [History Last Taken 11/01/20] cholecalciferol (vitamin D3) 1,000 unit PO DAILY@1200 12/09/16 [History Last Taken 11/01/20] cyanocobalamin (vitamin B-12) 1,000 mcg PO DAILY@1200 12/09/16 [History Last Taken 11/01/20] multivitamin 1 ea PO DAILY@1200 12/09/16 [History Last Taken 11/01/20] omega-3 fatty acids-fish oil 1 cap PO BID 12/09/16 [History Last Taken 05/31/21] aspirin 81 mg PO DAILY 06/11/17 [History Last Taken 05/31/21] magnesium oxide 400 mg PO DAILY@1200 03/01/20 [History Last Taken 11/01/20] amlodipine 10 mg PO DAILY 09/29/20 [History Last Taken 11/01/20] furosemide 40 mg PO DAILY 05/31/21 [History Last Taken Unknown] lisinopril 30 mg PO DAILY 05/31/21 [History Last Taken Unknown] Allergy/AdvReac Type Severity Reaction Status Date / Time adhesive Allergy Unknown Verified 07/18/21 08:45 bacitracin zinc Allergy Rash Verified 07/18/21 08:45 [From Neosporin ([id number])] metronidazole Allergy ALLERGY Verified 07/18/21 08:45 neomycin sulfate Allergy Rash Verified 07/18/21 08:45 [From Neosporin ([id number])] polymyxin B Allergy Rash Verified 07/18/21 08:45 [From Neosporin ([id number])] prednisolone acetate, Allergy ALLERGY Verified 07/18/21 08:45 micronized simvastatin Allergy ALLERGY Verified 07/18/21 08:45 tramadol [From Ultram] Allergy ALLERGY Verified 07/18/21 08:45 amoxicillin [From Augmentin] AdvReac Nausea/Vom/ Verified 07/18/21 08:45 Diarrhea atorvastatin calcium AdvReac Pain in Verified 07/18/21 08:45 [From Lipitor] joints clavulanic acid AdvReac Nausea/Vom/ Verified 07/18/21 08:45 [From Augmentin] Diarrhea fenofibrate nanocrystallized AdvReac Upset Verified 07/18/21 08:45 [From Tricor] Stomach flurbiprofen AdvReac Upset Verified 07/18/21 08:45 Stomach gemfibrozil AdvReac Upset Verified 07/18/21 08:45 Stomach glipizide [From Glucotrol] AdvReac Upset Verified 07/18/21 08:45 Stomach pravastatin AdvReac Pain in Verified 07/18/21 08:45 joints Family History Mother Diabetes Father Hypertension CVA (cerebral vascular accident) Brother Lung cancer Sister Breast cancer COPD (chronic obstructive pulmonary disease) Surgical History History of appendectomy History of cholecystectomy History of heart bypass surgery History of knee replacement History of partial colectomy (~05/2021) Hx of colonoscopy S/P hysterectomy Social History household members: family housing: house Smoking Status: Never smoker alcohol intake: current alcohol intake frequency: other substance use type: does not use additional social history: USES ASPIRIN ROS ROS ED Constitutional Constitutional ED: Denies chills or fever(s) Eyes Eyes: Denies change in vision ENT ENT ED: Denies sore throat Cardiovascular Cardiovascular: Denies chest pain Respiratory/Chest Respiratory/Chest: Denies cough or dyspnea Gastrointestinal Gastrointestinal: Reports nausea and vomiting; Denies diarrhea Genitourinary Genitourinary ED: Denies dysuria Musculoskeletal Musculoskeletal: Denies back pain Integumentary Denies rash Neurologic Neurologic: Denies headache(s) or weakness Allergic/Immunologic Allergic/Immunologic ED: Denies urticaria EXAM Physical Exam Const Vital Signs: 07/18/21 08:34 07/18/21 08:54 07/18/21 08:56 Temperature 96.2 F L Temperature Source Oral Pulse Rate 29 L 52 L Respiratory Rate 10 L 18 Respiratory Effort Normal Non-Labored Respiratory Pattern Normal Blood Pressure 126/42 H Blood Pressure Mean 70 Pulse Ox 99 99 Oxygen Delivery Method Room Air Room Air 07/18/21 09:33 07/18/21 09:47 07/18/21 11:00 Temperature Temperature Source Pulse Rate 25 L 29 L 64 Respiratory Rate 17 17 16 Respiratory Effort Respiratory Pattern Normal Blood Pressure 140/46 H 147/53 H Blood Pressure Mean 77 84 Pulse Ox 97 99 Oxygen Delivery Method Room Air Room Air 07/18/21 12:00 Temperature Temperature Source Pulse Rate 55 L Respiratory Rate 17 Respiratory Effort Respiratory Pattern Blood Pressure 133/54 H Blood Pressure Mean 80 Pulse Ox 99 Oxygen Delivery Method Positive cachectic General Appearance ED: cachectic and pallor Nutritional Appearance: cachectic HEENT Reports moist mucous membranes Eyes PERRL and EOMs intact bilaterally Neck supple Chest Wall inspection of chest normal and palpation of chest normal Resp normal respiratory effort and clear to auscultation bilaterally Cardio Rate: bradycardia GI non-tender Auscultation: hypoactive bowel sounds Palpation: soft Extremity normal to inspection Neuro oriented x3 Sensorium / Orientation: alert Skin General Skin Exam: pallor MDM MDM MDM Narrative Medical decision making narrative: Patient's heart rate 29 on desk monitor on arrival to the emergency room. Crash cart placed at bedside and defibrillator pads placed on the patient. IV fluids initiated. Lab Data Attestation: I reviewed the patient's lab results. Labs: Laboratory Results - last 24 hr 07/18/21 07/18/21 08:38 08:38 WBC 18.1 H RBC 3.84 L Hgb 11.5 L Hct 32.7 L MCV 85.2 MCH 29.9 MCHC 35.2 RDW Std Deviation 46.7 H RDW Coeff of Monique 15.0 H Plt Count 322 MPV 10.4 Immature Gran % (Auto) 0.400 Neut % (Auto) 76.8 H Lymph % (Auto) 20.2 Reynolds % (Auto) 2.3 Eos % (Auto) 0.1 Baso % (Auto) 0.2 Absolute Neuts (auto) 13.9 H Absolute Lymphs (auto) 3.66 Nucleated RBC % 0 Sodium 127 L Potassium 8.8 H* Chloride 95 L Carbon Dioxide 16.0 L Anion Gap 16 H BUN 158 H* Creatinine 8.32 H* Estim Creat Clear Calc 4.66 Est GFR (MDRD) Af Amer 6 L Est GFR (MDRD) Non-Af 5 L BUN/Creatinine Ratio 19.0 Glucose 200 H Calcium 9.8 Total Bilirubin 0.60 Direct Bilirubin 0.17 AST 13 L ALT 17 Alkaline Phosphatase 68 Troponin I High Sens 4 Total Protein 8.6 H Albumin 3.4 Globulin 5.2 H Lipase 3138 H EKG Initial EKG: Interpretation: Junctional (Junctional escape rhythm at [address] change.) Treatment and Re-Evaluation Narrative: Patient's heart rate improved into the high 30s with IV fluids. As lab work is returning potassium is noted to be 8.8 with a BUN of 158 and creatinine of 8.32. Lipase is 3000. CBC was a white count of 18.1 and hemoglobin 11.5. Patient is given calcium, albuterol, insulin, glucose. At this time patient's heart rate is in the 50s to 60s. Blood pressure has been stable between 110 and 130s systolic. I sent initial EKG Dr. Wells and spoke with him. We do not have anyone here this week for can place a permanent pacemaker if needed. I spoke with the family and recommended transfer as pacemaker placement may be necessary. We also discussed the possibility of temporary dialysis if her kidneys do not improve. There was significant debate [id number] between the patient and her 2 daughters about what care they would like. Patient initially agreed with pacemaker placement, however then told her daughters that she does not want any surgery of any kind. At this point they would like to stay here at [place] and be treated medically. They understand that we do not have the capability of placing a permanent pacemaker if this should be warranted. Critical Care Time Critical Care Time: Yes Critical care time (excluding procedures): 30-74 minutes (45 minutes), Including time spent:, Discussing w/Patient &/or Family/Girls Swimming Coach, Discussing w/Consultants, Arranging Admission or Transfer and Performing Direct Patient Care at Bedside Discharge Plan Dx/Rx/DC Orders Clinical Impression: Acute hyperkalemia, Renal failure, Bradycardia Disposition Disposition: Acute Care Hospital [facility]
--- NOTE | 2021-07-18 12:15 | CT_ITS ---
STUDY: CT ABDOMEN AND PELVIS WITHOUT CONTRAST REASON FOR EXAM: Female, 80 years old. Leukocytosis vomiting and recent surgery RADIATION DOSAGE (If Supplied By Facility): CTDIvol = ( 6.98 ) mGy, DLP = ( 318.47 ) mGycm TECHNIQUE: Transaxial images were obtained from the dome of the diaphragm to the symphysis pubis without oral contrast, and without intravenous contrast. Sagittal and coronal images were reconstructed. Individualized dose optimization techniques were used for this CT. COMPARISON: 30 May 2021 FINDINGS: Lung bases are emphysematous with mildly coarsened interstitial markings, possibly mild pulmonary edema. Coronary arteries are severely diseased with bypass. There are no pleural effusions. Liver is mildly/moderately cirrhotic. There is no ascites. Gallbladder is surgically removed. . Normal gallbladder and extrahepatic biliary system. Normal spleen. Normal pancreas. Normal bilateral adrenal glands. Left kidney is end-stage atrophic with a presumed 1 cm lower pole cyst. Right kidney is normal size. There is no hydronephrosis or urinary calculi. There is right lower quadrant colostomy. There is midline laparotomy incision related granulation/inflammation tissue in the anterior abdominal wall without abscess or fluid collection. Aorta is normal caliber with severe atherosclerosis. Normal urinary bladder. Uterus is surgically removed. There is hydrostatic presacral edema there is anasarca. Normal abdominal wall. There are degenerative changes in the spine with L4-L5 grade 1 anterolisthesis and moderate thecal sac stenosis. CT/Abdomen/Pelvis without Cont IMPRESSION: 1. No acute abnormality. 2. Midline lower abdominal laparotomy incision infiltration, possibly wound related infection. No abscess. 3. Cirrhosis, no ascites. 4. Severe atherosclerosis, coronary artery disease. Electronically Signed: Ese Geiger MD at 14:22 EDT ,
--- NOTE | 2021-07-18 12:45 | RAD_ITS ---
STUDY: X-RAY CHEST REASON FOR EXAM: Female, 80 years old. cp TECHNIQUE: Frontal portable view of the chest COMPARISON: 08 June 2021 FINDINGS: Lungs are mildly hyperinflated. There is asymmetric lung density due to patient rotation to the left. Heart size is normal. There is no pulmonary edema, pneumothorax or pleural effusions. There are sternotomy wires. There are surgical clips in the left lower neck, possibly endarterectomy related. Skeleton is intact. There is no gas under the diaphragms. RAD/Chest 1 View (Portable) IMPRESSION: No acute chest disease. Coronary bypass. Electronically Signed: Ese Geiger MD at 13:54 EDT ,
--- NOTE | 2021-07-18 12:50 | HP.PCM.HOS_ITS ---
HPI - General General Date of Admission: 07/18/21 Date of Service: 07/18/21 Chief Complaint: Nausea and vomiting HPI Narrative DARREN SANDOVAL, is a 80 F who presents with a 2 days nausea and vomiting. Prior to that, for couple days, patient was not eating much. Patient is having loose watery stools in her ostomy. Denies any abdominal pain. But just was not feeling well so EMS was contacted. Patient was noted to have bradycardia in the 20s. Patient was brought to the emergency room and was noted to have a potassium of 8.8, the sample did not appear to be hemolyzed, and a creatinine of 8.32, patient's last creatinine was from June 09 and was 1.01 at that time. In the emergency room, patient received IV fluids, 3 g of calcium gluconate, albuterol inhalation, and IV insulin and dextrose. Patient's heart rhythm has converted to sinus bradycardia. The emergency room physician reached out to Dr. Wells, of cardiology, who recommended transfer to a tertiary facility for possible pacemaker placement. The patient and the family, after numerous conversations with emergency room physician as well as myself did not want her to be transferred but did relate to me that they would like for her to stay here so they could see the physician who does the pacemakers when he returns. I explained to them both that her potentially being on transcutaneous pacing for several days would not be appropriate though I do not feel that she needs it at this point in time. I reiterated to the patient as well as her family that if it became necessary if she would want a pacemaker and the patient said no. The family informed me that they were concerned about transfer up to a larger institution like in [place] because of the inconvenience of travel. [facility] Medical History Abdominal pain Arthritis Back pain Bilateral leg pain Breast lump in female Cardiology follow-up encounter Cataracts, bilateral CKD (chronic kidney disease) Colovaginal fistula Colovesical fistula Controlled type 2 diabetes mellitus with hyperglycemia Delayed wound healing Diabetes Dietary restriction Diverticulitis large intestine Diverticulosis Heart failure High blood pressure High cholesterol History of diverticulitis History of echocardiogram History of edema History of heart attack Ileostomy in place Kidney stones Loss of hearing Non-smoker Open wound Osteoarthritis Peripheral arterial disease Rheumatoid arthritis Shortness of breath on exertion Type 2 diabetes mellitus with diabetic polyneuropathy Ulcer of right foot with necrosis of bone Ulcer of right lower extremity with muscle involvement without evidence of necrosis Unspecified protein-calorie malnutrition Wears glasses Home Medications glyburide 5 mg PO DAILY@0800 08/26/15 [History Last Taken 11/01/20] metformin 500 mg PO TIDCM 08/26/15 [History Last Taken 11/01/20] ascorbic acid (vitamin C) 500 mg PO DAILY@1200 12/09/16 [History Last Taken 11/01/20] atenolol 50 mg PO BID 12/09/16 [History Last Taken 11/01/20] cholecalciferol (vitamin D3) 1,000 unit PO DAILY@1200 12/09/16 [History Last Taken 11/01/20] cyanocobalamin (vitamin B-12) 1,000 mcg PO DAILY@1200 12/09/16 [History Last Taken 11/01/20] multivitamin 1 ea PO DAILY@1200 12/09/16 [History Last Taken 11/01/20] omega-3 fatty acids-fish oil 1 cap PO BID 12/09/16 [History Last Taken 05/31/21] aspirin 81 mg PO DAILY 06/11/17 [History Last Taken 05/31/21] magnesium oxide 400 mg PO DAILY@1200 03/01/20 [History Last Taken 11/01/20] amlodipine 10 mg PO DAILY 09/29/20 [History Last Taken 11/01/20] furosemide 40 mg PO DAILY 05/31/21 [History Last Taken Unknown] lisinopril 30 mg PO DAILY 05/31/21 [History Last Taken Unknown] Allergy/AdvReac Type Severity Reaction Status Date / Time adhesive Allergy Unknown Verified 07/18/21 08:45 bacitracin zinc Allergy Rash Verified 07/18/21 08:45 [From Neosporin ([id number])] metronidazole Allergy ALLERGY Verified 07/18/21 08:45 neomycin sulfate Allergy Rash Verified 07/18/21 08:45 [From Neosporin ([id number])] polymyxin B Allergy Rash Verified 07/18/21 08:45 [From Neosporin ([id number])] prednisolone acetate, Allergy ALLERGY Verified 07/18/21 08:45 micronized simvastatin Allergy ALLERGY Verified 07/18/21 08:45 tramadol [From Ultram] Allergy ALLERGY Verified 07/18/21 08:45 amoxicillin [From Augmentin] AdvReac Nausea/Vom/ Verified 07/18/21 08:45 Diarrhea atorvastatin calcium AdvReac Pain in Verified 07/18/21 08:45 [From Lipitor] joints clavulanic acid AdvReac Nausea/Vom/ Verified 07/18/21 08:45 [From Augmentin] Diarrhea fenofibrate nanocrystallized AdvReac Upset Verified 07/18/21 08:45 [From Tricor] Stomach flurbiprofen AdvReac Upset Verified 07/18/21 08:45 Stomach gemfibrozil AdvReac Upset Verified 07/18/21 08:45 Stomach glipizide [From Glucotrol] AdvReac Upset Verified 07/18/21 08:45 Stomach pravastatin AdvReac Pain in Verified 07/18/21 08:45 joints Family History Mother Diabetes Father Hypertension CVA (cerebral vascular accident) Brother Lung cancer Sister Breast cancer COPD (chronic obstructive pulmonary disease) Surgical History History of appendectomy History of cholecystectomy History of heart bypass surgery History of knee replacement History of partial colectomy (~05/2021) Hx of colonoscopy S/P hysterectomy Social History household members: family housing: house Smoking Status: Never smoker alcohol intake: current alcohol intake frequency: other substance use type: does not use additional social history: USES ASPIRIN ROS ROS Narrative No fever chills. No chest pain or palpitations. All review of systems were negative except as mentioned above in the history of present illness and the other review of systems. Vital Signs Vital Signs Vital Signs: 07/18/21 08:34 07/18/21 08:54 07/18/21 08:56 Temperature 35.7 C L Temperature Source Oral Pulse Rate 29 L 52 L Respiratory Rate 10 L 18 Respiratory Effort Normal Non-Labored Respiratory Pattern Normal Blood Pressure 126/42 H Blood Pressure Mean 70 Pulse Ox 99 99 Oxygen Delivery Method Room Air Room Air 07/18/21 09:33 07/18/21 09:47 07/18/21 11:00 Temperature Temperature Source Pulse Rate 25 L 29 L 64 Respiratory Rate 17 17 16 Respiratory Effort Respiratory Pattern Normal Blood Pressure 140/46 H 147/53 H Blood Pressure Mean 77 84 Pulse Ox 97 99 Oxygen Delivery Method Room Air Room Air 07/18/21 12:00 Temperature Temperature Source Pulse Rate 55 L Respiratory Rate 17 Respiratory Effort Respiratory Pattern Blood Pressure 133/54 H Blood Pressure Mean 80 Pulse Ox 99 Oxygen Delivery Method Weight Weight: 61.1 kg Body Mass Index (BMI) 23.1 Physical Exam Const alert Constitutional Narrative: Appears remarkably good despite her laboratory abnormalities. General Appearance: cooperative HEENT normocephalic, head/scalp atraumatic and moist oral mucous membranes Resp normal respiratory effort, no retractions, no use of accessory muscles and clear to auscultation bilaterally Cardio regular rate, regular rhythm, S1 normal heart sound and S2 normal heart sound GI normal to inspection, nondistended, normoactive bowel sounds, soft to palpation, non-tender and non-distended GI Narrative: Ostomy in the right lower quadrant with liquid brown stool. Extremity normal to inspection Skin no rashes or lesions noted and no wounds Neuro oriented x3 Sensorium / Orientation: awake and alert Psych affect normal Results Lab / Micro Data Attestation: I reviewed the patient's lab results. Result Diagrams: 07/18/21 08:38 07/18/21 08:38 Labs: Laboratory Results - last 24 hr 07/18/21 08:38: WBC 18.1 H, RBC 3.84 L, Hgb 11.5 L, Hct 32.7 L, MCV 85.2, MCH 29.9, MCHC 35.2, RDW Std Deviation 46.7 H, RDW Coeff of Monique 15.0 H, Plt Count 322, MPV 10.4, Immature Gran % (Auto) 0.400, Neut % (Auto) 76.8 H, Lymph % (Auto) 20.2, Grayson % (Auto) 2.3, Eos % (Auto) 0.1, Baso % (Auto) 0.2, Absolute Neuts (auto) 13.9 H, Absolute Lymphs (auto) 3.66, Nucleated RBC % 0 07/18/21 08:38: Sodium 127 L, Potassium 8.8 H*, Chloride 95 L, Carbon Dioxide 16.0 L, Anion Gap 16 H, BUN 158 H*, Creatinine 8.32 H*, Estim Creat Clear Calc 4.66, Est GFR (MDRD) Af Amer 6 L, Est GFR (MDRD) Non-Af 5 L, BUN/Creatinine Ratio 19.0, Glucose 200 H, Calcium 9.8, Total Bilirubin 0.60, Direct Bilirubin 0.17, AST 13 L, ALT 17, Alkaline Phosphatase 68, Troponin I High Sens 4, Total Protein 8.6 H, Albumin 3.4, Globulin 5.2 H, Lipase 3138 H EKG Initial EKG: Attestation: I personally reviewed and interpreted this EKG as follows: Prior EKG tracings: available for review EKG Rhythm Intrepretation: Junctional (Bradycardia) Assessment & Plan Assessment/Plan (1) Renal failure: QUALIFIERS: Renal failure chronicity: acute Acute renal failure type: unspecified Qualified Code(s): N17.9 - Acute kidney failure, unspecified (2) Acute hyperkalemia: (3) Bradycardia: PLAN: 1. Junctional bradycardia * Secondary to severe hyperkalemia * Appears to be resolved at this time as patient appears to be normal sinus rhythm on telemetry * Treat the underlying process, which would be the hyperkalemia * Repeat EKG * Patient and family not desiring a pacemaker at this time. Mental necessary feel is necessary though as she is sinus bradycardia but I could not rule out the possibility that this junctional bradycardia could potentially recur again. The initial family concern was inconvenience of travel as they are [employer] and it is cumbersome for them to travel any distance but I explained to them that if it did become necessary and if they did want it that the patient should be transferred and they should let us know now. I told them that to have the patient on transcutaneous pacing for an indeterminate period of time would not be appropriate. They expressed understanding and they and the patient do not want a pacemaker, at least at this time. * Consult cardiology 2. Severe hyperkalemia * Not hemolyzed on the sample * Patient received calcium, albuterol and IV insulin and dextrose * Recheck potassium and if still high will give Kayexalate 3. Acute kidney injury * Suspect prerenal as well as a component of ATN given the traumatic severity * Cannot rule out postobstructive at this time so we will check an ultrasound * discussed with Dr. Barfield, who will see the patient in consultation * Repeat lab work to see if has been any improvement. * Additionally, check urine studies 4. Intractable nausea and vomiting * Given the patient's recent surgery for a colovesicular fistula and renal stenting will CAT scan has been ordered * Zofran as needed * N.p.o. for now 5. VTE prophylaxis with subcu heparin Advance care planning: Spent additional 20 minutes discussing with patient and family about advanced directives. When details about CPR and also initially discussed the incongruity with doing CPR and some of the does not want a pacemaker. Patient was adamant she did not want a pacemaker but was unsure about CPR. Told them that we would leave her at full CODE STATUS unless they told us otherwise. Did discuss going details about what is involved with CPR and life support if she were to survive CPR. Roughly 10 to 15 minutes after I left the room they had notified staff that they did not want the patient to have CPR. Therefore the patient will be DNR Comfort Care arrest. Initial plan was to put the patient in the ICU because of potential risk of cardiac arrhythmia a nd need for CPR but will put the patient in the progressive care unit as she is currently hemodynamically stable. Charges/Coding Visit Charges Inpatient E&M: 80062 Init Hosp L3 Procedures Hospitalists Procedures: 16450 Advncd Care Plan 30 Min
--- NOTE | 2021-07-18 12:56 | EKG12_ITS ---
Test Reason : Blood Pressure : / mmHG Vent. Rate : 068 BPM Atrial Rate : 041 BPM P-R Int : 000 ms QRS Dur : 088 ms QT Int : 398 ms P-R-T Axes : 000 055 056 degrees QTc Int : 423 ms Atrial fibrillation Low voltage QRS Abnormal ECG Confirmed by DASHAWN HUTTON, MCKENNA ([id number]), editorial intern PRIYANKA VUONG ([id number]) on 07/20/2021 10:34:50 AM Referred By: Confirmed By:MCKENNA TAMEZ MD
--- NOTE | 2021-07-18 14:05 | US_ITS ---
STUDY: RENAL ULTRASOUND - COMPLETE REASON FOR EXAM: Female, 80 years old. ALEISHA TECHNIQUE: Ultrasound evaluation of the kidneys was performed with real-time and static lindsay-scale imaging. COMPARISON: None. FINDINGS: RIGHT KIDNEY: Normal location of the right kidney, which is normal in size. The right kidney measures 10.2 x 5.4 cm. There is a normal cortex of the right kidney. The renal cortex measures 1.3 cm. There is no right renal mass or cyst. There are no right renal calculi. There is no right hydronephrosis. DISTAL RIGHT URETER: There is non-visualization of the distal right ureter. There is no demonstrated right ureterovesical junction calculus. There is no demonstrated right ureteral jet. LEFT KIDNEY: with mild renal atrophy. The left kidney measures 7.1 x 2.6 cm. There is diffuse thinning of the renal cortex. The renal cortex measures .32 cm. Cyst measures 14 mm. There are other cysts. These are simple cysts. No follow-up required. There are no left renal calculi. There is no left hydronephrosis. DISTAL LEFT URETER: There is non-visualization of the distal left ureter. There is no demonstrated left ureterovesical junction calculus. There is no demonstrated left ureteral jet. AORTA: There is obscuration of the abdominal aorta by overlying bowel gas I.V.C.: The IVC is obscured. BLADDER: The distended urinary bladder has a volume of 65 ml. There is a normal wall thickness of the distended urinary bladder. There is no demonstrated mass within the urinary bladder. There are no demonstrated bladder calculi. US/Kidney and Bladder IMPRESSION: Left cortical thinning and atrophy suggesting medical renal disease Electronically Signed: Otis Baldwin MD at 18:57 EDT ,
--- NOTE | 2021-07-18 14:05 | ECHOD_ITS ---
Reason For Study: Bradycardia Procedure This was a 2D Doppler, Color Flow transthoracic echocardiogram. Exam performed portable in patient room. Left Ventricle Normal LV size. Left ventricular systolic function is normal. The estimated ejection fraction is 65 %. Unable to assess diastolic dysfunction. No regional wall motion abnormalities noted. Right Ventricle Normal RV size. Normal systolic function. Atria The left atrium is moderately enlarged. The right atrium is mildly enlarged. No doppler evidence for ASD. Mitral Valve There is moderate mitral annular calcification. Extension mitral annular calcification onto the base of the posterior mitral valve leaflet. Anterior leaflet diffuse mitral valve thickening. The mitral papillary muscle appears thickened and/or calcified. Mild-Moderate (1-2+) mitral valve insufficiency. Tricuspid Valve Normal tricuspid valve. Moderate (2+) tricuspid valve insufficiency. Right ventricular systolic pressure estimated to be 54 mmHg. Aortic Valve The aortic valve is not well visualized, however, there appears to be diffuse thickening, calcification, and partial restriction. Mild to moderate aortic stenosis. Pulmonic Valve The pulmonic valve is not well visualized. Trivial pulmonic valve insufficiency. Great Vessels The aortic root is not well visualized. Pericardium/Pleural No pericardial effusion. MMode/2D Measurements & Calculations LVOT diam: 2.0 cm LAV(MOD-bp): 73.0 ml LA A4 area: 23.4 cm2 LVOT area: 3.0 cm2 LAV(MOD-bp) Indexed: 43.7 ml/m2 LAV(MOD-sp2): 69.9 ml LAV(MOD-sp4): 75.6 ml RA A4 area: 15.6 cm2 Doppler Measurements & Calculations MV E max elías: 150.7 cm/sec Lat Peak E' Elías: 9.7 cm/sec Ao V2 max: 268.2 cm/sec E/E' lat: 15.5 Ao max P.8 mmHg Ao V2 mean: 180.9 cm/sec Ao mean P.8 mmHg Ao V2 VTI: 68.6 cm SANA(I,D): 1.1 cm2 SANA(V,D): 1.2 cm2 LV V1 max: 105.7 cm/sec MR max elías: 511.8 cm/sec SV(LVOT): 76.9 ml LV V1 max P.5 mmHg MR max P.8 mmHg LV V1 mean P.4 mmHg LV V1 mean: 72.0 cm/sec LV V1 VTI: 25.4 cm TR max elías: 355.7 cm/sec TR max P.6 mmHg ECHO/Echo Complete Interpretation Summary Left ventricular systolic function is normal. The estimated ejection fraction is 65 %. The left atrium is moderately enlarged. The right atrium is mildly enlarged. There is moderate mitral annular calcification. Extension mitral annular calcification onto the base of the posterior mitral va lve leaflet. Anterior leaflet diffuse mitral valve thickening. The mitral papillary muscle appears thickened and/or calcified. Mild-Moderate (1-2+) mitral valve insufficiency. Moderate (2+) tricuspid valve insufficiency. The aortic valve is not well visualized, however, there appears to be diffuse t hickening, calcification, and partial restriction. Mild to moderate aortic stenosis. Trivial pulmonic valve insufficiency. Right ventricular systolic pressure estimated to be 54 mmHg c/w pulmonary hyper tension. Unable to assess diastolic dysfunction. Ordering Physician: Dipak Bales Referring Physician: Kelsy Mensah Performed By: Miki Valles RCS
[2021-07-18 14:55] LABS: Anion Gap 13 (5-15); BUN 164 mg/dL (7-18); BUN/Creat Ratio 20.9 RATIO (10-20); Calcium,Total 9.7 mg/dL (8.5-10.1); Chloride 101 mmol/L (98-107); Creatinine, Serum 7.84 mg/dL (0.55-1.02); EST Glomerular Filtration Rate 5 mL/min (>60); Est Glom Filt Rate - Afr Amer 6 mL/min (>60); Estimated Creatinine Clearance 4.94 ml/min; Glucose 276 mg/dL (74-106); Potassium 7.8 mmol/L (3.5-5.1); Sodium Level 129 mmol/L (136-145); Troponin-I HS 9 pg/mL (3.0-54.0)
[2021-07-18] MEDS: Atropine Sulfate 1 MG/10 ML Syringe IV (14:57)
[2021-07-18] MEDS: 0.9% Saline Lock 10 ML Syringe IV ×2 (15:41→21:10)
[2021-07-18] MEDS: Ondansetron 4 MG/2 ML Vial IV (15:41)
[2021-07-18 16:00] LABS: Bacteria 0 SEEN /hpf (None Seen); Mucous, Urine 0 SEEN /hpf (<or=2+); Red Blood Cells-Urine 0 SEEN /hpf (0-5); Squamous Epithelial Cells - UA 0 SEEN /hpf (5-10); White Blood Cells 0 SEEN /hpf (0-5)
[2021-07-18] MEDS: Calcium Gluconate 1 GM/10 ML Vial IVP (16:09)
[2021-07-18 16:11] LABS: Color, Urine Yellow (Yellow); Glucose, Dipstick Normal (Normal); Ketone-Dipstick Negative (Negative); Leukocyte Esterase-Dipstick Negative /ul (Negative); Nitrite-Dipstick Negative (Negative); Occult Blood-Urine Negative /ul (Negative); Protein-Dipstick 30 mg/dl (Negative); Urine Bilirubin Dipstick Negative (Negative); Urine Clarity Clear (Clear); Urine Urobilinogen Normal (Normal)
[2021-07-18 16:12] LABS: Protein, Urine (Random) 62.1 mg/dL (<11.9)
[2021-07-18] MEDS: Albuterol 2.5 MG/3 ML VIAL.NEB. INHALATION (16:20)
[2021-07-18] MEDS: Sodium Polystyrene Sulfonate 15 GM/60 ML UDC 30 GM PO (16:23)
[2021-07-18] MEDS: Sodium Bicarbonate 8.4% 50 ML Syringe 50 MEQ IV ×2 (16:56→16:57)
--- NOTE | 2021-07-18 19:20 | CON.PCM.CA_ITS ---
Assessment & Plan Assessment/Plan (1) Bradycardia: PLAN: The patient has been found to have evidence of an underlying j unctional bradycardia. The etiology may be secondary to the patient's acute renal failure and hyper kalemia. At the moment the patient has been undergoing evaluation care by the [facility] emergency department staff, the hospital staff, and nephrology with respect to her electrolyte disturbances and attempting to manage this medically. She is being considered for dialysis and attempt to also bring her electrolytes under better control. The hope is that if her electrolytes come under better control so will her cardiac rate and rhythm. The patient's underlying cardiac rate and rhythm have been discussed with the patient with her daughters present. They have been informed that if the patient's cardiac rate and rhythm do not improve despite medical measures and potentially dialysis therapy and the patient does need to consider proceeding with permanent pacemaker placement which, as noted above the present time cannot be performed locally, would require the patient to be transferred to a tertiary care center. They have been informed that only a temporary transvenous pacemaker could be placed here, however, if that were to occur the recommendation would be made to transfer the patient to a tertiary care center with plans for permanent pacemaker support. At the present time the patient states that at her age with her multiple medical conditions she does not want to proceed with a permanent pacemaker and thus would not see the reason to proceed with any temporary pacemaker support. (2) CAD (coronary artery disease): QUALIFIERS: Coronary Disease-Associated Artery/Lesion type: bypass graft [place] vs. transplanted heart: [place] heart Associated angina: without angina Qualified Code(s): I25.810 - Atherosclerosis of coronary artery bypass graft(s) without angina pectoris PLAN: The patient has a history of CAD. The details are unknown. An attempt will be made to retrieve records for continuity of care. In the meantime she can continue medical therapy taken into consideration adjustments needed for her renal insufficiency and her hyperkalemia. (3) S/P CABG (coronary artery bypass graft): PLAN: The patient states she has had CABG performed in the past. Again the details are unknown. An attempt will be made to retrieve medical records for continuity of care. (4) HLD (hyperlipidemia): PLAN: The patient has a history of hyperlipidemia. It appears based upon her medical record she has not been on lipid-lowering therapy with agents such as statins as they are listed on her allergy list based upon concerns of myalgias and joint discomfort. (5) Hypertension: PLAN: The patient's blood pressure will need to be monitored. She can continue medical therapy taking into consideration the need to avoid rate limiting agents as well as agents that would negatively interact with her renal insufficiency. (6) Type 2 diabetes mellitus: PLAN: The patient will continue evaluation care per internal medicine. (7) Renal failure: QUALIFIERS: Renal failure chronicity: acute Acute renal failure type: unspecified Qualified Code(s): N17.9 - Acute kidney failure, unspecified PLAN: The patient is being evaluated by nephrology. The decision on hemodialysis is pending. (8) Acute hyperkalemia: PLAN: The patient does have acute hyperkalemia which may be secondary to her acute renal insufficiency which may be secondary to what appears to be poor oral intake and dehydration. At the present time she is continuing medical therapy under the direction of internal medicine and nephrology to assist with bringing her potassium level under better control. Hopefully if her potassium level comes under better control her cardiac rhythm will improve. Addt'l Comments The above was discussed at length with the patient and her 2 daughters. They acknowledge the aforementioned information. The patient states she will consider her options, however, at this time she will only agree to proceed with conservative medical therapy and potentially temporary hemodialysis if needed. Again she does not want a proceed with any form of pacemaker placement. She also requested to be a DNR. The patient's case has been discussed and reviewed with Dr. Chao of the [facility] ED staff and Dr. Bales the [facility] hospital staff. This note was generated using a voice recognition system and there may be incorrect words, spelling or punctuation that were not noted when reviewing the office note prior to saving. HPI Consult Data Date of Consult: 07/18/21 HPI Narrative HPI Narrative: DARREN SANDOVAL, is a 80 year old white female who presents for cardiovascular consultation based upon concerns of underlying junctional bradycardia in the setting of a history of underlying CAD status post CABG as well as acute renal failure and hyperkalemia superimposed upon multiple comorbidities including hyperlipidemia, hypertension, diabetes mellitus, and recent abdominal/urologic surgical procedures. According to the patient with her daughter is present she states that this past Friday she was not feeling well, was not taking good oral intake, became very weak and collapsed in her daughter's arms, but did not seek medical care at that time. Since that time she has been progressively deteriorating with less oral intake and feeling weaker. Yesterday there was concerns of the patient progressed to the point of having ongoing nausea and emesis. Thus she presented to the [facility] emergency department this day. She was found to be in an underlying junctional bradycardia and also found to have acute renal insufficiency with a markedly elevated creatinine level and acute hyperkalemia. The patient denies ongoing chest discomfort. She denies any acute shortness of breath or dyspnea nor has she had obvious orthopnea or PND or worsening peripheral pitting edema. She does not believe there is been a loss of consciousness episode. In the emergency department a recommendation was made for the patient to be transferred to a tertiary care center for further evaluation and care including the ability if needed to place a permanent pacemaker, which at the present time cannot be performed at [facility], however, the patient and the family initially agreed, an attempt was made to find a tertiary care center that was able to accept the patient which was unsuccessful, and then the patient decided she did not want to be transferred and would rather remain at [facility] with conservative medical management. At that time she appar ently requested to be a DNR patient and did not want to consider options such as pacemaker support or hemodialysis to assist with her acute renal failure and hyperkalemia. She was eventually transferred to the PCU for further evaluation and care. Since being in the PCU she has stated that she would continue conservative medical therapy and would consider temporary dialysis if need be to correct her underlying renal insufficiency and electrolyte abnormalities but did not want a proceed with any type of pacemaker placement which with respect to a permanent pacemaker would require the patient to be transferred to tertiary care facility as this cannot be performed locally at this time as noted above. The patient has undergone cardiac enzyme levels which have been negative. Her ECG demonstrated what appeared to be a junctional bradycardia with a septal MA pattern of indeterminate age. She also underwent a transthoracic echocardiogram. The results are noted below. 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 The patient has been evaluated by nephrology. She is initiating medical therapy to assist with her hyperkalemia. Appears a decision to proceed with hemodialysis is pending at this time. [facility] Medical History (Updated 07/18/21 @ 19:[address] Lincoln Wells MD) Abdominal pain Arthritis Back pain Bilateral leg pain Breast lump in female Cardiology follow-up encounter Cataracts, bilateral CKD (chronic kidney disease) Colovaginal fistula Colovesical fistula Controlled type 2 diabetes mellitus with hyperglycemia Delayed wound healing Diabetes Dietary restriction Diverticulitis large intestine Diverticulosis Heart failure High blood pressure High cholesterol History of diverticulitis History of echocardiogram History of edema History of heart attack HLD (hyperlipidemia) Ileostomy in place Kidney stones Loss of hearing Non-smoker Open wound Osteoarthritis Peripheral arterial disease Rheumatoid arthritis Shortness of breath on exertion Type 2 diabetes mellitus with diabetic polyneuropathy Ulcer of right foot with necrosis of bone Ulcer of right lower extremity with muscle involvement without evidence of necrosis Unspecified protein-calorie malnutrition Wears glasses Home Medications glyburide 2.5 mg PO QODAY 08/26/15 [History Last Taken 07/16/21] metformin 500 mg PO TIDCM 08/26/15 [History Last Taken 07/17/21] ascorbic acid (vitamin C) 500 mg PO DAILY@1200 12/09/16 [History Last Taken 07/17/21] atenolol 50 mg PO BID 12/09/16 [History Last Taken 07/17/21] cholecalciferol (vitamin D3) 1,000 unit PO DAILY@1200 12/09/16 [History Last Taken 07/17/21] cyanocobalamin (vitamin B-12) 1,000 mcg PO DAILY@1200 12/09/16 [History Last Taken 07/17/21] multivitamin 1 ea PO DAILY@1200 12/09/16 [History Last Taken 07/17/21] omega-3 fatty acids-fish oil 1 cap PO BID 12/09/16 [History Last Taken 07/17/21] aspirin 81 mg PO DAILY 06/11/17 [History Last Taken 07/17/21] magnesium oxide 400 mg PO DAILY@1200 03/01/20 [History Last Taken 07/17/21] furosemide 40 mg PO QODAY 05/31/21 [History Last Taken 07/16/21] amlodipine 10 mg PO DAILY 07/18/21 [History Last Taken 07/17/21] lisinopril 20 mg PO DAILY 07/18/21 [History Last Taken 07/17/21] Allergy/AdvReac Type Severity Reaction Status Date / Time adhesive Allergy Unknown Verified 07/18/21 08:45 bacitracin zinc Allergy Rash Verified 07/18/21 08:45 [From Neosporin ([id number])] metronidazole Allergy ALLERGY Verified 07/18/21 08:45 neomycin sulfate Allergy Rash Verified 07/18/21 08:45 [From Neosporin ([id number])] polymyxin B Allergy Rash Verified 07/18/21 08:45 [From Neosporin ([id number])] prednisolone acetate, Allergy ALLERGY Verified 07/18/21 08:45 micronized simvastatin Allergy ALLERGY Verified 07/18/21 08:45 tramadol [From Ultram] Allergy ALLERGY Verified 07/18/21 08:45 amoxicillin [From Augmentin] AdvReac Nausea/Vom/ Verified 07/18/21 08:45 Diarrhea atorvastatin calcium AdvReac Pain in Verified 07/18/21 08:45 [From Lipitor] joints clavulanic acid AdvReac Nausea/Vom/ Verified 07/18/21 08:45 [From Augmentin] Diarrhea fenofibrate nanocrystallized AdvReac Upset Verified 07/18/21 08:45 [From Tricor] Stomach flurbiprofen AdvReac Upset Verified 07/18/21 08:45 Stomach gemfibrozil AdvReac Upset Verified 07/18/21 08:45 Stomach glipizide [From Glucotrol] AdvReac Upset Verified 07/18/21 08:45 Stomach pravastatin AdvReac Pain in Verified 07/18/21 08:45 joints Family History Mother Diabetes Father Hypertension CVA (cerebral vascular accident) Brother Lung cancer Sister Breast cancer COPD (chronic obstructive pulmonary disease) Surgical History (Updated 07/18/21 @ 19:[address] Lincoln Wells MD) History of appendectomy History of cholecystectomy History of heart bypass surgery History of knee replacement History of partial colectomy (~05/2021) Hx of colonoscopy S/P CABG (coronary artery bypass graft) S/P hysterectomy Social History household members: family housing: house Smoking Status: Never smoker alcohol intake: current alcohol intake frequency: other substance use type: does not use additional social history: USES ASPIRIN ROS Constitutional Constitutional: Reports fatigue and malaise Eyes Eyes: Reports as per HPI ENT HEENT: Reports as per HPI Cardiovascular Cardiovascular: Reports fatigue and slow heart rate Respiratory/Chest Respiratory/Chest: Reports as per HPI Gastrointestinal Gastrointestinal: Reports nausea and vomiting Genitourinary Genitourinary: Reports as per HPI Musculoskeletal Musculoskeletal: Reports as per HPI Integumentary Integumentary: Reports as per HPI Neurologic Neurologic: Reports as per HPI Psychiatric Psychiatric: Reports as per HPI Physical Exam Const alert and oriented x3 Orientation / Consciousness: awake HEENT normocephalic, head/scalp atraumatic and hearing grossly normal bilaterally Eyes PERRL, EOMs intact bilaterally, conjunctivae normal and no scleral icterus Neck full ROM, supple and no JVD Resp clear to auscultation bilaterally Cardio regular rhythm, S1 normal heart sound and S2 normal heart sound Rate: bradycardia Heart Sounds: murmur systolic II/ soft mid left sternal border, LVOT and sternal notch GI normal to inspection, nondistended, normoactive bowel sounds Extremity no pedal edema Skin no rashes or lesions noted Neuro oriented x3, moves all extremities, no focal motor deficits and no sensory deficits noted Psych mental status grossly normal Risk Stratification Risk Stratification Applicable: No Objective Data Vital Signs: Vital Signs Temp Pulse Resp BP Pulse Ox 97.6 F L 32 L 20 H 132/76 H 96 07/18/21 14:15 07/18/21 16:31 07/18/21 16:31 07/18/21 14:15 07/18/21 14:15 Oxygen Delivery Method Room Air Weight: 138 lb 3.677 oz Body Mass Index (BMI) 23.7 Intake & Output: Intake and Output for Last 24 Hours 07/16/21 07/17/21 07/18/21 23:59 23:59 23:59 Intake Total 3740 / 3740 Output Total 160 / 160 Balance 3580 / 3580 Lab / Micro Data Result Diagrams: 07/18/21 08:38 07/18/21 14:20 Labs: Laboratory Results - last 24 hr 07/18/21 08:38: WBC 18.1 H, RBC 3.84 L, Hgb 11.5 L, Hct 32.7 L, MCV 85.2, MCH 29.9, MCHC 35.2, RDW Std Deviation 46.7 H, RDW Coeff of Monique 15.0 H, Plt Count 322, MPV 10.4, Immature Gran % (Auto) 0.400, Neut % (Auto) 76.8 H, Lymph % (Auto) 20.2, [place] % (Auto) 2.3, Eos % (Auto) 0.1, Baso % (Auto) 0.2, Absolute Neuts (auto) 13.9 H, Absolute Lymphs (auto) 3.66, Nucleated RBC % 0 07/18/21 08:38: Sodium 127 L, Potassium 8.8 H*, Chloride 95 L, Carbon Dioxide 16.0 L, Anion Gap 16 H, BUN 158 H*, Creatinine 8.32 H*, Estim Creat Clear Calc 4 .66, Est GFR (MDRD) Af Amer 6 L, Est GFR (MDRD) Non-Af 5 L, BUN/Creatinine Ratio 19.0, Glucose 200 H, Calcium 9.8, Total Bilirubin 0.60, Direct Bilirubin 0.17, AST 13 L, ALT 17, Alkaline Phosphatase 68, Troponin I High Sens 4, Total Protein 8.6 H, Albumin 3.4, Globulin 5.2 H, Lipase 3138 H 07/18/21 14:20: Sodium 129 L, Potassium 7.8 H*, Chloride 101, Carbon Dioxide 15.0 L, Anion Gap 13, BUN 164 H*, Creatinine 7.84 H*, Estim Creat Clear Calc 4.94, Est GFR (MDRD) Af Amer 6 L, Est GFR (MDRD) Non-Af 5 L, BUN/Creatinine Ratio 20.9 H, Glucose 276 H, Calcium 9.7, Troponin I High Sens 9 07/18/21 15:50: Urine Color Yellow, Urine Clarity Clear, Urine pH 5.0, Ur Specific [place] 1.020, Urine Protein 30 H, Urine Glucose (UA) Normal, Urine Ketones Negative, Urine Occult Blood Negative, Urine Nitrite Negative, Urine Bilirubin Negative, Urine Urobilinogen Normal, Ur Leukocyte Esterase Negative, Urine RBC 0 SEEN, Urine WBC 0 SEEN, Ur Squamous Epith Cells 0 SEEN, Urine Bacteria 0 SEEN, Urine Mucus 0 SEEN 07/18/21 15:50: U Random Total Protein 62.1 H, Urine Creatinine 136.00 Cardiology Labs/Tests 07/18/21 08:38: WBC 18.1 H, RBC 3.84 L, Hgb 11.5 L, Hct 32.7 L, MCV 85.2, MCH 29 .9, MCHC 35.2, Plt Count 322, MPV 10.4, Immature Gran % (Auto) 0.400, Neut % (Auto) 76.8 H, Lymph % (Auto) 20.2, [place] % (Auto) 2.3, Eos % (Auto) 0.1, Baso % (Auto) 0.2, Absolute Neuts (auto) 13.9 H, Nucleated RBC % 0 07/18/21 08:38: Sodium 127 L, Potassium 8.8 H*, Chloride 95 L, Carbon Dioxide 16.0 L, Anion Gap 16 H, BUN 158 H*, Creatinine 8.32 H*, Est GFR (MDRD) Af Amer 6 L, Est GFR (MDRD) Non-Af 5 L, BUN/Creatinine Ratio 19.0, Glucose 200 H, Calcium 9.8, Total Bilirubin 0.60, Direct Bilirubin 0.17 07/18/21 14:20: Sodium 129 L, Potassium 7.8 H*, Chloride 101, Carbon Dioxide 15.0 L, Anion Gap 13, BUN 164 H*, Creatinine 7.84 H*, Est GFR (MDRD) Af Amer 6 L , Est GFR (MDRD) Non-Af 5 L, BUN/Creatinine Ratio 20.9 H, Glucose 276 H, Calcium 9.7 07/18/21 15:50: Urine Color Yellow, Urine Clarity Clear, Urine pH 5.0, Ur Specific [place] 1.020, Urine Protein 30 H, Urine Glucose (UA) Normal, Urine Ketones Negative, Urine Occult Blood Negative, Urine Nitrite Negative, Urine Bilirubin Negative, Urine Urobilinogen Normal, Ur Leukocyte Esterase Negative, Urine RBC 0 SEEN, Urine WBC 0 SEEN Rhythm: Junctional bradycardia EKG: As noted above ECHO: As noted below Stress Test: 11-19-2013 PHARMACOLOGIC MYOCARDIAL PERFUSION STRESS TEST REASON FOR EVALUATION: This is a 72-year-old lady with a history of chest pain. BASELINE INFORMATION: Baseline EKG demonstrated normal sinus rhythm with a rate of 62 beats per m inute. No acute noted. Resting blood pressure is 178/76. STRESS TEST: 0.4 mg of regadenoson was infused per usual protocol followed by rapid intravenous saline flush injection. Continuous EKG monitoring was performed. The patient maintained sinus rhythm throughout the recording. The maximum heart rate attained was 71 beats per minute, which was 47% of maximum predicted heart rate. At rest, there were no ST or T-wave changes noted to suggest abnormal flow reserve. At peak infusion, no ST or T-wave changes were noted to suggest abnormal flow reserve. Resting blood pressure was 178/76 with a final blood pressure of 160/68. MYOCARDIAL PERFUSION PROTOCOL: At rest 11 mCi of technetium 99 Sestamibi was injected at rest. 0.4 mg of regadenoson was infused per usual protocol. At peak infusion, technetium with Sestamibi was injected at stress doses. Stress and rest images were reconstru cted and compared in the short axis, vertical long, and horizontal long axes. Gated images were also obtained. PERFUSION SPECT ANALYSIS: Review of the images demonstrate normal uptake of tracer noted in all areas of the myocardium with mild reduction in the mid anterior wall. This is present on the stress and resting images. The resting images demonstrated a similar pattern. No reversibility was noted to suggest ischemia. GATED SPECT ANALYSIS: The gated ejection fraction is noted to be abnormal between 55% to 60%. CONCLUSION: 1. Normal pharmacologic myocardial perfusion stress test. 2. Preserved ejection fraction. Radiography Diagnostic Testing: Radiology Impression Abdomen/Pelvis CT 07/18/21 12:15 IMPRESSION: 1. No acute abnormality. 2. Midline lower abdominal laparotomy incision infiltration, possibly wound related infection. No abscess. 3. Cirrhosis, no ascites. 4. Severe atherosclerosis, coronary artery disease. Electronically Signed: Ese Geiger MD at 14:22 EDT , Chest X-Ray 07/18/21 12:45 IMPRESSION: No acute chest disease. Coronary bypass. Electronically Signed: Ese Geiger MD at 13:54 EDT , Echocardiogram 07/18/21 14:05 Interpretation Summary Left ventricular systolic function is normal. The estimated ejection fraction is 65 %. The left atrium is moderately enlarged. The right atrium is mildly enlarged. There is moderate mitral annular calcification. Extension mitral annular calcification onto the base of the posterior mitral valve leaflet. Anterior leaflet diffuse mitral valve thickening. The mitral papillary muscle appears thickened and/or calcified. Mild-Moderate (1-2+) mitral valve insufficiency. Moderate (2+) tricuspid valve insufficiency. The aortic valve is not well visualized, however, there appears to be diffuse thickening, calcification, and partial restriction. Mild to moderate aortic stenosis. Trivial pulmonic valve insufficiency. Right ventricular systolic pressure estimated to be 54 mmHg c/w pulmonary hy pertension. Unable to assess diastolic dysfunction. Ordering Physician: Dipak Bales Referring Physician: Kelsy Mensah Performed By: Miki Valles RCS Renal Ultrasound 07/18/21 14:05 IMPRESSION: Left cortical thinning and atrophy suggesting medical renal disease Electronically Signed: Otis Baldwin MD at 18:57 EDT ,
[2021-07-18 19:50] LABS: Anion Gap 14 (5-15); BUN 150 mg/dL (7-18); BUN/Creat Ratio 19.3 RATIO (10-20); Calcium,Total 9.7 mg/dL (8.5-10.1); Chloride 100 mmol/L (98-107); Creatinine, Serum 7.78 mg/dL (0.55-1.02); EST Glomerular Filtration Rate 5 mL/min (>60); Est Glom Filt Rate - Afr Amer 6 mL/min (>60); Estimated Creatinine Clearance 4.98 ml/min; Glucose 299 mg/dL (74-106); Potassium 7.2 mmol/L (3.5-5.1); Sodium Level 132 mmol/L (136-145)
[2021-07-18] MEDS: Heparin Injection (Vial) 5,000 UNIT/ML VIAL 5000 UNIT SC (21:06)
[2021-07-18] MEDS: Insulin Lispro 100 UNIT/ML INSULN.PEN SC (21:10)
[2021-07-18 21:11] LABS: Bedside Glucose 295 mg/dL (74-106)
--- NOTE | 2021-07-18 21:51 | CON.PCM.RE_ITS ---
Assessment & Plan Assessment/Plan (1) Acute hyperkalemia: PLAN: IV bicarb push and drip has received other meds already insulin - sliding scale since she is hyperglycemic (2) Renal failure: QUALIFIERS: Renal failure chronicity: acute Acute renal failure type: unspecified Qualified Code(s): N17.9 - Acute kidney failure, unspecified PLAN: cr was close to normal last month. CT abd no hydronephrosis. Likely volume depletion. discussed with patient and family. they would like to do only medical management for now HPI Consult Data Date of Consult: 07/18/21 HPI Narrative HPI Narrative: DARREN SANDOVAL, is a 80 F who presents to hospital with generalized weakness, bradycardia. renal consulted for ALEISHA. had normal cr last month. she was here last month for abdomen surgery. apparently has increased stomal output, decreased urine output. has significant hyperkalemia [facility] Medical History (Updated 07/18/21 @ 19:[address] Lincoln Wells MD) Abdominal pain Arthritis Back pain Bilateral leg pain Breast lump in female Cardiology follow-up encounter Cataracts, bilateral CKD (chronic kidney disease) Colovaginal fistula Colovesical fistula Controlled type 2 diabetes mellitus with hyperglycemia Delayed wound healing Diabetes Dietary restriction Diverticulitis large intestine Diverticulosis Heart failure High blood pressure High cholesterol History of diverticulitis History of echocardiogram History of edema History of heart attack HLD (hyperlipidemia) Ileostomy in place Kidney stones Loss of hearing Non-smoker Open wound Osteoarthritis Peripheral arterial disease Rheumatoid arthritis Shortness of breath on exertion Type 2 diabetes mellitus with diabetic polyneuropathy Ulcer of right foot with necrosis of bone Ulcer of right lower extremity with muscle involvement without evidence of necrosis Unspecified protein-calorie malnutrition Wears glasses Home Medications glyburide 2.5 mg PO QODAY 08/26/15 [History Last Taken 07/16/21] metformin 500 mg PO TIDCM 08/26/15 [History Last Taken 07/17/21] ascorbic acid (vitamin C) 500 mg PO DAILY@1200 12/09/16 [History Last Taken 07/17/21] atenolol 50 mg PO BID 12/09/16 [History Last Taken 07/17/21] cholecalciferol (vitamin D3) 1,000 unit PO DAILY@1200 12/09/16 [History Last Taken 07/17/21] cyanocobalamin (vitamin B-12) 1,000 mcg PO DAILY@1200 12/09/16 [History Last Taken 07/17/21] multivitamin 1 ea PO DAILY@1200 12/09/16 [History Last Taken 07/17/21] omega-3 fatty acids-fish oil 1 cap PO BID 12/09/16 [History Last Taken 07/17/21] aspirin 81 mg PO DAILY 06/11/17 [History Last Taken 07/17/21] magnesium oxide 400 mg PO DAILY@1200 03/01/20 [History Last Taken 07/17/21] furosemide 40 mg PO QODAY 05/31/21 [History Last Taken 07/16/21] amlodipine 10 mg PO DAILY 07/18/21 [History Last Taken 07/17/21] lisinopril 20 mg PO DAILY 07/18/21 [History Last Taken 07/17/21] Allergy/AdvReac Type Severity Reaction Status Date / Time adhesive Allergy Unknown Verified 07/18/21 08:45 bacitracin zinc Allergy Rash Verified 07/18/21 08:45 [From Neosporin ([id number])] metronidazole Allergy ALLERGY Verified 07/18/21 08:45 neomycin sulfate Allergy Rash Verified 07/18/21 08:45 [From Neosporin ([id number])] polymyxin B Allergy Rash Verified 07/18/21 08:45 [From Neosporin ([id number])] prednisolone acetate, Allergy ALLERGY Verified 07/18/21 08:45 micronized simvastatin Allergy ALLERGY Verified 07/18/21 08:45 tramadol [From Ultram] Allergy ALLERGY Verified 07/18/21 08:45 amoxicillin [From Augmentin] AdvReac Nausea/Vom/ Verified 07/18/21 08:45 Diarrhea atorvastatin calcium AdvReac Pain in Verified 07/18/21 08:45 [From Lipitor] joints clavulanic acid AdvReac Nausea/Vom/ Verified 07/18/21 08:45 [From Augmentin] Diarrhea fenofibrate nanocrystallized AdvReac Upset Verified 07/18/21 08:45 [From Tricor] Stomach flurbiprofen AdvReac Upset Verified 07/18/21 08:45 Stomach gemfibrozil AdvReac Upset Verified 07/18/21 08:45 Stomach glipizide [From Glucotrol] AdvReac Upset Verified 07/18/21 08:45 Stomach pravastatin AdvReac Pain in Verified 07/18/21 08:45 joints Family History Mother Diabetes Father Hypertension CVA (cerebral vascular accident) Brother Lung cancer Sister Breast cancer COPD (chronic obstructive pulmonary disease) Surgical History (Updated 07/18/21 @ 19:[address] Lincoln Wells MD) History of appendectomy History of cholecystectomy History of heart bypass surgery History of knee replacement History of partial colectomy (~05/2021) Hx of colonoscopy S/P CABG (coronary artery bypass graft) S/P hysterectomy Social History household members: family housing: house Smoking Status: Never smoker alcohol intake: current alcohol intake frequency: other substance use type: does not use additional social history: USES ASPIRIN ROS ROS Narrative negative except above Physical Exam Narrative Alert awake oriented x 3 no obvious distress no pallor no icterus no JVD s1s2 no murmurs lungs clear abdomen soft no organomegaly no edema Lab / Micro Data Result Diagrams: 07/18/21 08:38 07/18/21 18:43 Labs: Laboratory Results - last 24 hr 07/18/21 08:38: WBC 18.1 H, RBC 3.84 L, Hgb 11.5 L, Hct 32.7 L, MCV 85.2, MCH 2 9.9, MCHC 35.2, RDW Std Deviation 46.7 H, RDW Coeff of Monique 15.0 H, Plt Count 322, MPV 10.4, Immature Gran % (Auto) 0.400, Neut % (Auto) 76.8 H, Lymph % (Auto) 20.2, [place] % (Auto) 2.3, Eos % (Auto) 0.1, Baso % (Auto) 0.2, Absolute Neuts (auto) 13.9 H, Absolute Lymphs (auto) 3.66, Nucleated RBC % 0 07/18/21 08:38: Sodium 127 L, Potassium 8.8 H*, Chloride 95 L, Carbon Dioxide 16.0 L, Anion Gap 16 H, BUN 158 H*, Creatinine 8.32 H*, Estim Creat Clear Calc 4.66, Est GFR (MDRD) Af Amer 6 L, Est GFR (MDRD) Non-Af 5 L, BUN/Creatinine Ratio 19.0, Glucose 200 H, Calcium 9.8, Total Bilirubin 0.60, Direct Bilirubin 0.17, AST 13 L, ALT 17, Alkaline Phosphatase 68, Troponin I High Sens 4, Total Protein 8.6 H, Albumin 3.4, Globulin 5.2 H, Lipase 3138 H 07/18/21 14:20: Sodium 129 L, Potassium 7.8 H*, Chloride 101, Carbon Dioxide 15.0 L, Anion Gap 13, BUN 164 H*, Creatinine 7.84 H*, Estim Creat Clear Calc 4.94, Est GFR (MDRD) Af Amer 6 L, Est GFR (MDRD) Non-Af 5 L, BUN/Creatinine Ratio 20.9 H, Glucose 276 H, Calcium 9.7, Troponin I High Sens 9 07/18/21 15:50: Urine Color Yellow, Urine Clarity Clear, Urine pH 5.0, Ur Specific [place] 1.020, Urine Protein 30 H, Urine Glucose (UA) Normal, Urine Ketones Negative, Urine Occult Blood Negative, Urine Nitrite Negative, Urine Bilirubin Negative, Urine Urobilinogen Normal, Ur Leukocyte Esterase Negative, Urine RBC 0 SEEN, Urine WBC 0 SEEN, Ur Squamous Epith Cells 0 SEEN, Urine Bacteria 0 SEEN, Urine Mucus 0 SEEN 07/18/21 15:50: U Random Total Protein 62.1 H, Urine Creatinine 136.00 07/18/21 18:43: Sodium 132 L, Potassium 7.2 H*, Chloride 100, Carbon Dioxide 18.0 L, Anion Gap 14, BUN 150 H*, Creatinine 7.78 H*, Estim Creat Clear Calc 4.98, Est GFR (MDRD) Af Amer 6 L, Est GFR (MDRD) Non-Af 5 L, BUN/Creatinine Ratio 19.3, Glucose 299 H, Calcium 9.7 07/18/21 21:05: POC Glucose 295 H Radiology Impression Abdomen/Pelvis CT 07/18/21 12:15 IMPRESSION: 1. No acute abnormality. 2. Midline lower abdominal laparotomy incision infiltration, possibly wound related infection. No abscess. 3. Cirrhosis, no ascites. 4. Severe atherosclerosis, coronary artery disease. Electronically Signed: Ese Geiger MD at 14:22 EDT , Chest X-Ray 07/18/21 12:45 IMPRESSION: No acute chest disease. Coronary bypass. Electronically Signed: Ese Geiger MD at 13:54 EDT , Echocardiogram 07/18/21 14:05 Interpretation Summary Left ventricular systolic function is normal. The estimated ejection fraction is 65 %. The left atrium is moderately enlarged. The right atrium is mildly enlarged. There is moderate mitral annular calcification. Extension mitral annular calcification onto the base of the posterior mitral valve leaflet. Anterior leaflet diffuse mitral valve thickening. The mitral papillary muscle appears thickened and/or calcified. Mild-Moderate (1-2+) mitral valve insufficiency. Moderate (2+) tricuspid valve insufficiency. The aortic valve is not well visualized, however, there appears to be diffuse thickening, calcification, and partial restriction. Mild to moderate aortic stenosis. Trivial pulmonic valve insufficiency. Right ventricular systolic pressure estimated to be 54 mmHg c/w pulmonary hypertension. Unable to assess diastolic dysfunction. Ordering Physician: Dipak Bales Referring Physician: Kelsy Mensah Performed By: Miki Valles RCS Renal Ultrasound 07/18/21 14:05 IMPRESSION: Left cortical thinning and atrophy suggesting medical renal disease Electronically Signed: Otis Baldwin MD at 18:57 EDT ,
[2021-07-19] VITALS (10 sets, daily range): BP systolic 114–132; BP diastolic 43–72; PULSE 63–85; RESP 12–18; TEMP 36.6–36.8; O2SAT 93–98
--- NOTE | 2021-07-19 05:55 | EKG12_ITS ---
Test Reason : Blood Pressure : / mmHG Vent. Rate : 031 BPM Atrial Rate : 025 BPM P-R Int : 000 ms QRS Dur : 086 ms QT Int : 528 ms P-R-T Axes : 000 062 080 degrees QTc Int : 379 ms Junctional bradycardia Low voltage QRS Septal infarct , age undetermined , cannot be excluded Abnormal ECG Confirmed by DASHAWN HUTTON, MCKENNA ([id number]), technical editor PRIYANKA VUONG ([id number]) on 07/20/2021 10:36:54 AM Referred By: DERRICK Confirmed By:MCKENNA TAMEZ MD
[2021-07-19 06:03] LABS: Absolute Lymphocyte Count 2.36 X10^3/uL (0.83-4.51); Absolute Neutrophil Count 5.4 X10^3/uL (2.0-7.7); Basophil# 0.02 X10^3/uL; Basophil% 0.2 % (0-1); Eosinophil# 0.01 X10^3/uL; Eosinophils% 0.1 % (0-5); Hematocrit 28.4 % (37-47); Hemoglobin 9.7 g/dL (12.0-15.0); Lymphocyte # 2.36 X10^3/ul (0.83-4.51); Lymphocyte % 27.1 % (19-41); Mean Corp Hgb Conc 34.2 g/dL (32-36); Mean Corpuscular Hgb 29.7 pg (27.0-32.0); Mean Corpuscular Volume 86.9 fL (81-99); Mean Platelet Vol. 10.4 fl (6.2-12.0); Monocyte# 0.94 X10^3/uL; Monocyte% 10.8 % (0-10); NRBC Flagged by Analyzer 0 % (0-5); Neutrophil # 5.35 X10^3/uL (2.7-7.7); Neutrophil % 61.5 % (47-70); Platelet Count 176 K/mm3 (150-450); RBC Distribution Width CV 14.9 % (11.6-14.6); RBC Distribution Width SD 47.8 fl (35.1-43.9); Red Blood Count 3.27 M/mm3 (4.2-5.4); White Blood Count 8.7 K/mm3 (4.4-11.0)
[2021-07-19 06:33] LABS: Anion Gap 13 (5-15); BUN 144 mg/dL (7-18); BUN/Creat Ratio 20.2 RATIO (10-20); Chloride 97 mmol/L (98-107); Creatinine, Serum 7.13 mg/dL (0.55-1.02); EST Glomerular Filtration Rate 6 mL/min (>60); Est Glom Filt Rate - Afr Amer 7 mL/min (>60); Estimated Creatinine Clearance 5.43 ml/min; Glucose 254 mg/dL (74-106); Potassium 5.8 mmol/L (3.5-5.1); Sodium Level 134 mmol/L (136-145)
[2021-07-19] MEDS: Insulin Lispro 100 UNIT/ML INSULN.PEN SC ×4 (06:46→21:50)
[2021-07-19 06:50] LABS: Bedside Glucose 255 mg/dL (74-106)
--- NOTE | 2021-07-19 07:37 | PN.CARD_ITS ---
Subjective Subjective The patient is awake and alert. She states she feels somewhat better compared to her arrival at the hospital. She denies ongoing chest discomfort or difficulty breathing at this time. She states she has had no additional nausea/emesis. She feels that her urinary output has increased. Objective Data Vital Signs: Vital Signs Temp Pulse Resp BP Pulse Ox 98.3 F 73 16 122/43 H 95 07/19/21 03:00 07/19/21 03:00 07/19/21 03:00 07/19/21 03:00 07/19/21 03:00 Oxygen Delivery Method Room Air Weight: 137 lb 5.568 oz Body Mass Index (BMI) 23.7 Intake & Output: Intake and Output for Last 24 Hours 07/17/21 07/18/21 07/19/21 23:59 23:59 23:59 Intake Total 3740 / 3800 1210 / 1210 Output Total 160 / 1610 1650 / 1650 Balance 3580 / 2190 -440 / -440 Lab / Micro Data Result Diagrams: 07/19/21 04:59 07/19/21 04:59 Labs: Laboratory Results - last 24 hr 07/18/21 08:38: WBC 18.1 H, RBC 3.84 L, Hgb 11.5 L, Hct 32.7 L, MCV 85.2, MCH 29.9, MCHC 35.2, RDW Std Deviation 46.7 H, RDW Coeff of Monique 15.0 H, Plt Count 322, MPV 10.4, Immature Gran % (Auto) 0.400, Neut % (Auto) 76.8 H, Lymph % (Auto) 20.2, [place] % (Auto) 2.3, Eos % (Auto) 0.1, Baso % (Auto) 0.2, Absolute Neuts (auto) 13.9 H, Absolute Lymphs (auto) 3.66, Nucleated RBC % 0 07/18/21 08:38: Sodium 127 L, Potassium 8.8 H*, Chloride 95 L, Carbon Dioxide 16.0 L, Anion Gap 16 H, BUN 158 H*, Creatinine 8.32 H*, Estim Creat Clear Calc 4.66, Est GFR (MDRD) Af Amer 6 L, Est GFR (MDRD) Non-Af 5 L, BUN/Creatinine Ratio 19.0, Glucose 200 H, Calcium 9.8, Total Bilirubin 0.60, Direct Bilirubin 0.17, AST 13 L, ALT 17, Alkaline Phosphatase 68, Troponin I High Sens 4, Total Protein 8.6 H, Albumin 3.4, Globulin 5.2 H, Lipase 3138 H 07/18/21 14:20: Sodium 129 L, Potassium 7.8 H*, Chloride 101, Carbon Dioxide 15.0 L, Anion Gap 13, BUN 164 H*, Creatinine 7.84 H*, Estim Creat Clear Calc 4.94, Est GFR (MDRD) Af Amer 6 L, Est GFR (MDRD) Non-Af 5 L, BUN/Creatinine Ratio 20.9 H, Glucose 276 H, Calcium 9.7, Troponin I High Sens 9 07/18/21 15:50: Urine Color Yellow, Urine Clarity Clear, Urine pH 5.0, Ur Specific [place] 1.020, Urine Protein 30 H, Urine Glucose (UA) Normal, Urine Ketones Negative, Urine Occult Blood Negative, Urine Nitrite Negative, Urine Bilirubin Negative, Urine Urobilinogen Normal, Ur Leukocyte Esterase Negative, Urine RBC 0 SEEN, Urine WBC 0 SEEN, Ur Squamous Epith Cells 0 SEEN, Urine Bacteria 0 SEEN, Urine Mucus 0 SEEN 07/18/21 15:50: U Random Total Protein 62.1 H, Urine Creatinine 136.00 07/18/21 18:43: Sodium 132 L, Potassium 7.2 H*, Chloride 100, Carbon Dioxide 18.0 L, Anion Gap 14, BUN 150 H*, Creatinine 7.78 H*, Estim Creat Clear Calc 4.98, Est GFR (MDRD) Af Amer 6 L, Est GFR (MDRD) Non-Af 5 L, BUN/Creatinine Ratio 19.3, Glucose 299 H, Calcium 9.7 07/18/21 21:05: POC Glucose 295 H 07/19/21 04:59: WBC 8.7, RBC 3.27 L, Hgb 9.7 L, Hct 28.4 L, MCV 86.9, MCH 29.7, MCHC 34.2, RDW Std Deviation 47.8 H, RDW Coeff of Monique 14.9 H, Plt Count 176, MPV 10.4, Immature Gran % (Auto) 0.300, Neut % (Auto) 61.5, Lymph % (Auto) 27.1, [place] % (Auto) 10.8 H, Eos % (Auto) 0.1, Baso % (Auto) 0.2, Absolute Neuts (auto) 5.4, Absolute Lymphs (auto) 2.36, Nucleated RBC % 0 07/19/21 04:59: Sodium 134 L, Potassium 5.8 H, Chloride 97 L, Carbon Dioxide 24.0, Anion Gap 13, BUN 144 H*, Creatinine 7.13 H, Estim Creat Clear Calc 5.43, Est GFR (MDRD) Af Amer 7 L, Est GFR (MDRD) Non-Af 6 L, BUN/Creatinine Ratio 20.2 H, Glucose 254 H, Calcium 9.0 07/19/21 06:44: POC Glucose 255 H Cardiology Labs/Tests 07/18/21 08:38: WBC 18.1 H, RBC 3.84 L, Hgb 11.5 L, Hct 32.7 L, MCV 85.2, MCH 29.9, MCHC 35.2, Plt Count 322, MPV 10.4, Immature Gran % (Auto) 0.400, Neut % (Auto) 76.8 H, Lymph % (Auto) 20.2, [place] % (Auto) 2.3, Eos % (Auto) 0.1, Baso % (Auto) 0.2, Absolute Neuts (auto) 13.9 H, Nucleated RBC % 0 07/18/21 08:38: Sodium 127 L, Potassium 8.8 H*, Chloride 95 L, Carbon Dioxide 16.0 L, Anion Gap 16 H, BUN 158 H*, Creatinine 8.32 H*, Est GFR (MDRD) Af Amer 6 L, Est GFR (MDRD) Non-Af 5 L, BUN/Creatinine Ratio 19.0, Glucose 200 H, Calcium 9.8, Total Bilirubin 0.60, Direct Bilirubin 0.17 07/18/21 14:20: Sodium 129 L, Potassium 7.8 H*, Chloride 101, Carbon Dioxide 15.0 L, Anion Gap 13, BUN 164 H*, Creatinine 7.84 H*, Est GFR (MDRD) Af Amer 6 L , Est GFR (MDRD) Non-Af 5 L, BUN/Creatinine Ratio 20.9 H, Glucose 276 H, Calcium 9.7 07/18/21 15:50: Urine Color Yellow, Urine Clarity Clear, Urine pH 5.0, Ur Specific [place] 1.020, Urine Protein 30 H, Urine Glucose (UA) Normal, Urine Ketones Negative, Urine Occult Blood Negative, Urine Nitrite Negative, Urine Bilirubin Negative, Urine Urobilinogen Normal, Ur Leukocyte Esterase Negative, Urine RBC 0 SEEN, Urine WBC 0 SEEN 07/18/21 18:43: Sodium 132 L, Potassium 7.2 H*, Chloride 100, Carbon Dioxide 18.0 L, Anion Gap 14, BUN 150 H*, Creatinine 7.78 H*, Est GFR (MDRD) Af Amer 6 L , Est GFR (MDRD) Non-Af 5 L, BUN/Creatinine Ratio 19.3, Glucose 299 H, Calcium 9.7 07/19/21 04:59: WBC 8.7, RBC 3.27 L, Hgb 9.7 L, Hct 28.4 L, MCV 86.9, MCH 29.7, MCHC 34.2, Plt Count 176, MPV 10.4, Immature Gran % (Auto) 0.300, Neut % (Auto) 61.5, Lymph % (Auto) 27.1, [place] % (Auto) 10.8 H, Eos % (Auto) 0.1, Baso % (Auto) 0.2, Absolute Neuts (auto) 5.4, Nucleated RBC % 0 07/19/21 04:59: Sodium 134 L, Potassium 5.8 H, Chloride 97 L, Carbon Dioxide 24.0, Anion Gap 13, BUN 144 H*, Creatinine 7.13 H, Est GFR (MDRD) Af Amer 7 L, Est GFR (MDRD) Non-Af 6 L, BUN/Creatinine Ratio 20.2 H, Glucose 254 H, Calcium 9.0 Rhythm: Atrial fibrillation with controlled ventricular response EKG: Atrial fibrillation Radiography Diagnostic Testing: Radiology Impression Abdomen/Pelvis CT 07/18/21 12:15 IMPRESSION: 1. No acute abnormality. 2. Midline lower abdominal laparotomy incision infiltration, possibly wound related infection. No abscess. 3. Cirrhosis, no ascites. 4. Severe atherosclerosis, coronary artery disease. Electronically Signed: Ese Geiger MD at 14:22 EDT , Chest X-Ray 07/18/21 12:45 IMPRESSION: No acute chest disease. Coronary bypass. Electronically Signed: Ese Geiger MD at 13:54 EDT , Echocardiogram 07/18/21 14:05 Interpretation Summary Left ventricular systolic function is normal. The estimated ejection fraction is 65 %. The left atrium is moderately enlarged. The right atrium is mildly enlarged. There is moderate mitral annular calcification. Extension mitral annular calcification onto the base of the posterior mitral valve leaflet. Anterior leaflet diffuse mitral valve thickening. The mitral papillary muscle appears thickened and/or calcified. Mild-Moderate (1-2+) mitral valve insufficiency. Moderate (2+) tricuspid valve insufficiency. The aortic valve is not well visualized, however, there appears to be diffuse thickening, calcification, and partial restriction. Mild to moderate aortic stenosis. Trivial pulmonic valve insufficiency. Right ventricular systolic pressure estimated to be 54 mmHg c/w pulmonary hypertension. Unable to assess diastolic dysfunction. Ordering Physician: Dipak Bales Referring Physician: Kelsy Mensah Performed By: Miki Valles RCS Renal Ultrasound 07/18/21 14:05 IMPRESSION: Left cortical thinning and atrophy suggesting medical renal disease Electronically Signed: Otis Baldwin MD at 18:57 EDT , Physical Exam Const alert and oriented x3 Orientation / Consciousness: awake HEENT normocephalic, head/scalp atraumatic and hearing grossly normal bilaterally Eyes PERRL, EOMs intact bilaterally, conjunctivae normal and no scleral icterus Neck full ROM, supple and no JVD Resp clear to auscultation bilaterally Cardio S1 normal heart sound and S2 normal heart sound Rhythm: abnormal rhythm irregularly irregular Heart Sounds: murmur systolic II/ soft mid left sternal border, LVOT and sternal notch GI normal to inspection, nondistended, normoactive bowel sounds Extremity no pedal edema Skin no rashes or lesions noted Neuro oriented x3, moves all extremities, no focal motor deficits and no sensory deficits noted Psych mental status grossly normal Assessment & Plan Assessment/Plan (1) Bradycardia: PLAN: The patient has been found to have evidence of an underlying junctional bradycardia. The etiology may be secondary to the patient's acute renal failure and hyperkalemia. The patient has been treated medically for her renal failure and hyperkalemia. Her creatinine level and potassium level are somewhat improved. It has now been noted the patient cardiac rhythm has altered and she is currently now in atrial fibrillation with a controlled ventricular response. As her ventricular response is controlled she does not appear to require rate limiting medications at this time. If she remains in atrial fibrillation she will need to be considered for long- term oral systemic anticoagulant therapy to minimize the risk of thromboembolic events. (2) CAD (coronary artery disease): QUALIFIERS: Coronary Disease-Associated Artery/Lesion type: bypass graft [place] vs. transplanted heart: [place] heart Associated angina: without angina Qualified Code(s): I25.810 - Atherosclerosis of coronary artery bypass graft(s) without angina pectoris PLAN: The patient has a history of CAD. The details are unknown. An attempt will be made to retrieve records for continuity of care. In the meantime she can continue medical therapy taken into consideration adjustments needed for her renal insufficiency and her hyperkalemia. (3) S/P CABG (coronary artery bypass graft): PLAN: The patient states she has had CABG performed in the past. Again the details are unknown. An attempt will be made to retrieve medical records for continuity of care. (4) HLD (hyperlipidemia): PLAN: The patient has a history of hyperlipidemia. It appears based upon her medical record she has not been on lipid-lowering therapy with agents such as statins as they are listed on her allergy list based upon concerns of myalgias and joint discomfort. (5) Hypertension: PLAN: The patient's blood pressure will need to be monitored. She can continue medical therapy taking into consideration the need to avoid rate limiting agents as well as agents that would negatively interact with her renal insufficiency. (6) Type 2 diabetes mellitus: PLAN: The patient will continue evaluation care per internal medicine. (7) Renal failure: QUALIFIERS: Renal failure chronicity: acute Acute renal failure type: unspecified Qualified Code(s): N17.9 - Acute kidney failure, unspecified PLAN: The patient is being evaluated by nephrology. The decision on hemodialysis is pending. (8) Acute hyperkalemia: PLAN: The patient does have acute hyperkalemia which may be secondary to her acute renal insufficiency which may be secondary to what appears to be poor oral intake and dehydration. At the present time she is continuing medical therapy under the direction of internal medicine and nephrology to assist with bringing her potassium level under better control. Her potassium levels have improved somewhat. Addt'l Comments The patient's case was discussed and reviewed with her. She continues to reiterate that she does not want to proceed with additional noninvasive or invasive cardiovascular procedures. This note was generated using a voice recognition system and there may be incorrect words, spelling or punctuation that were not noted when reviewing the office note prior to saving. Procedure Criteria Type of Procedure Procedure Type: Elective Elective Risks - COVID COVID Risk Discussion: The surgeon/proceduralist and patient have discussed in detail the risk of exposure to and/or potential harm posed by the COVID-19 virus with having a surgery/procedure at this time versus the risk of delaying the surgery/procedure. It is not possible to know either the risk of delaying the surgery or procedure or chance of getting an infection with perfect accuracy, but a joint decision was made between the patient and the surgeon/proceduralist to proceed at this time with the scheduled surgery/procedure as indicated on the consent form.
[2021-07-19] MEDS: Heparin Injection (Vial) 5,000 UNIT/ML VIAL 5000 UNIT SC ×2 (08:20→21:50)
--- NOTE | 2021-07-19 10:32 | PN.HOSP_ITS ---
Documented by User: Feliciano ECHEVERRIA 07/19/21 11:04 Subjective Subjective Patient is a 80-year-old female comfortably resting in bed, alert and orient x3. Patient denies development of any new symptoms overnight. Does not appear in acute distress. Objective Data Objective Data Vital Signs: Vital Signs Temp Pulse Resp BP Pulse Ox 98.2 F 71 12 114/55 L 97 07/19/21 08:00 07/19/21 08:00 07/19/21 08:00 07/19/21 08:00 07/19/21 08:00 Oxygen Delivery Method Room Air Weight: 137 lb 5.568 oz Body Mass Index (BMI) 23.7 Intake & Output: Intake and Output for Last 24 Hours 07/17/21 07/18/21 07/19/21 23:59 23:59 23:59 Intake Total 3740 / 3800 2360 / 2360 Output Total 160 / 1610 1650 / 1650 Balance 3580 / 2190 710 / 710 Lab / Micro Data Result Diagrams: 07/19/21 04:59 07/19/21 04:59 Labs: Laboratory Results - last 24 hr 07/18/21 14:20: Sodium 129 L, Potassium 7.8 H*, Chloride 101, Carbon Dioxide 15.0 L, Anion Gap 13, BUN 164 H*, Creatinine 7.84 H*, Estim Creat Clear Calc 4.94, Est GFR (MDRD) Af Amer 6 L, Est GFR (MDRD) Non-Af 5 L, BUN/Creatinine Ratio 20.9 H, Glucose 276 H, Calcium 9.7, Troponin I High Sens 9 07/18/21 15:50: Urine Color Yellow, Urine Clarity Clear, Urine pH 5.0, Ur Specific [place] 1.020, Urine Protein 30 H, Urine Glucose (UA) Normal, Urine Ketones Negative, Urine Occult Blood Negative, Urine Nitrite Negative, Urine Bilirubin Negative, Urine Urobilinogen Normal, Ur Leukocyte Esterase Negative, Urine RBC 0 SEEN, Urine WBC 0 SEEN, Ur Squamous Epith Cells 0 SEEN, Urine Bacteria 0 SEEN, Urine Mucus 0 SEEN 07/18/21 15:50: U Random Total Protein 62.1 H, Urine Creatinine 136.00 07/18/21 18:43: Sodium 132 L, Potassium 7.2 H*, Chloride 100, Carbon Dioxide 18.0 L, Anion Gap 14, BUN 150 H*, Creatinine 7.78 H*, Estim Creat Clear Calc 4.98, Est GFR (MDRD) Af Amer 6 L, Est GFR (MDRD) Non-Af 5 L, BUN/Creatinine Ratio 19.3, Glucose 299 H, Calcium 9.7 07/18/21 21:05: POC Glucose 295 H 07/19/21 04:59: WBC 8.7, RBC 3.27 L, Hgb 9.7 L, Hct 28.4 L, MCV 86.9, MCH 29.7, MCHC 34.2, RDW Std Deviation 47.8 H, RDW Coeff of Monique 14.9 H, Plt Count 176, MPV 10.4, Immature Gran % (Auto) 0.300, Neut % (Auto) 61.5, Lymph % (Auto) 27.1, [place] % (Auto) 10.8 H, Eos % (Auto) 0.1, Baso % (Auto) 0.2, Absolute Neuts (auto) 5.4, Absolute Lymphs (auto) 2.36, Nucleated RBC % 0 07/19/21 04:59: Sodium 134 L, Potassium 5.8 H, Chloride 97 L, Carbon Dioxide 24.0, Anion Gap 13, BUN 144 H*, Creatinine 7.13 H, Estim Creat Clear Calc 5.43, Est GFR (MDRD) Af Amer 7 L, Est GFR (MDRD) Non-Af 6 L, BUN/Creatinine Ratio 20.2 H, Glucose 254 H, Calcium 9.0 07/19/21 06:44: POC Glucose 255 H Radiography Diagnostic Testing: Radiology Impression Abdomen/Pelvis CT 07/18/21 12:15 IMPRESSION: 1. No acute abnormality. 2. Midline lower abdominal laparotomy incision infiltration, possibly wound related infection. No abscess. 3. Cirrhosis, no ascites. 4. Severe atherosclerosis, coronary artery disease. Electronically Signed: Ese Geiger MD at 14:22 EDT , Chest X-Ray 07/18/21 12:45 IMPRESSION: No acute chest disease. Coronary bypass. Electronically Signed: Ese Geiger MD at 13:54 EDT , Echocardiogram 07/18/21 14:05 Interpretation Summary Left ventricular systolic function is normal. The estimated ejection fraction is 65 %. The left atrium is moderately enlarged. The right atrium is mildly enlarged. There is moderate mitral annular calcification. Extension mitral annular calcification onto the base of the posterior mitral valve leaflet. Anterior leaflet diffuse mitral valve thickening. The mitral papillary muscle appears thickened and/or calcified. Mild-Moderate (1-2+) mitral valve insufficiency. Moderate (2+) tricuspid valve insufficiency. The aortic valve is not well visualized, however, there appears to be diffuse thickening, calcification, and partial restriction. Mild to moderate aortic stenosis. Trivial pulmonic valve insufficiency. Right ventricular systolic pressure estimated to be 54 mmHg c/w pulmonary hypertension. Unable to assess diastolic dysfunction. Ordering Physician: Dipak Bales Referring Physician: Kelys Mensah Performed By: Miki Valles RCS Renal Ultrasound 07/18/21 14:05 IMPRESSION: Left cortical thinning and atrophy suggesting medical renal disease Electronically Signed: Otis Baldwin MD at 18:57 EDT , Physical Exam Const alert, oriented x3 and no apparent distress HEENT head/scalp atraumatic and moist oral mucous membranes Head and Scalp: normocephalic Eyes PERRL, EOMs intact bilaterally and conjunctivae normal Neck no lymphadenopathy, supple and no JVD Resp normal respiratory effort, no retractions and no use of accessory muscles Cardio regular rate, regular rhythm and no JVD GI normal to inspection, nondistended, normoactive bowel sounds, soft to palpation and non-tender Extremity normal to inspection, full ROM and no clubbing, cyanosis or edema Skin no rashes or lesions noted, no wounds and skin turgor normal Neuro CN's II-XII intact bilaterally Psych affect normal Assessment & Plan Assessment/Plan (1) Renal failure: QUALIFIERS: Acute renal failure type: unspecified Renal failure chronicity: acute Qualified Code(s): N17.9 - Acute kidney failure, unspecified (2) Bradycardia: (3) Acute hyperkalemia: PLAN: Day 1 Discharge planning: Current plan is for patient to discharge home when medically ready. 1) junctional bradycardia Possibly related to patient's acute renal failure and hyperkalemia seen on admission. Patient now with atrial fibrillation, although rate is controlled. Patient and family not interested in pacemaker placement at this time, cardiology following. 2) hyperkalemia Creatinine currently 5.8, improved from admission. Nephrology following, recommendations are continue with IV bicarb. Patient given Kayexalate this morning, will continue to monitor. 3) acute kidney injury Creatinine currently 7.1, improved from admission. CT of the abdomen revealed no hydronephrosis. Nephrology following. We will continue with fluids and bicarb. Continue to monitor BMP. 4) CAD/HLD/HTN Status post CABG, not on statin regimen given allergy. DVT prophylaxis - Heparin. Patient seen by Feliciano Mercado PA-C, under the supervision of Dr. Bales. Time spent on patient care: 10 minutes. Documented by User: Dr. Dipak Bales, 07/19/21 12:01 Subjective Subjective Feels better today. No further nausea and vomiting. Objective Data Lab / Micro Data Result Diagrams: 07/19/21 04:59 07/19/21 04:59 Physical Exam Const alert and no apparent distress Resp normal respiratory effort, no retractions, no use of accessory muscles and clear to auscultation bilaterally Cardio regular rate, regular rhythm, S1 normal heart sound and S2 normal heart sound GI normal to inspection, nondistended, normoactive bowel sounds, soft to palpation, non-tender and non-distended Psych affect normal Assessment & Plan Assessment/Plan (1) Renal failure: QUALIFIERS: Acute renal failure type: unspecified Renal failure chronicity: acute Qualified Code(s): N17.9 - Acute kidney failure, unspecified (2) Bradycardia: (3) Acute hyperkalemia: PLAN: Pt seen and examined independently data reviewed. I agree with the above PA note. 1. Junctional bradycardia Resolved. No further events with correction of hyperkalemia Secondary to severe hyperkalemia Appears to be resolved at this time as patient appears to be normal sinus rhythm on telemetry Treat the underlying process, which would be the hyperkalemia Repeat EKG Cardiology input appreciated. No indication for pacemaker (which she did not want anyway) 2. Severe hyperkalemia Improved Not hemolyzed on the sample Patient received calcium, albuterol and IV insulin and dextrose Recheck potassium and if still high will give Kayexalate 3. Acute kidney injury FEUrea 2.4% Suspect prerenal as well as a component of ATN given the traumatic severity Renal US unremarkable High-output for ostomy. On Bicarb gtt 4. Intractable nausea and vomiting resolved may have been due to uremia. Zofran as needed CT abd/pelvis unremarkable 5. VTE prophylaxis with subcu heparin Charges/Coding Visit Charges Inpatient E&M: 06896 Subs Hosp L3
[2021-07-19 11:50] LABS: Bedside Glucose 332 mg/dL (74-106)
--- NOTE | 2021-07-19 13:20 | CASEMGMT ---
FLOR DOMINGO assessment: Face to Face with patient for initial transition planning/care coordination assessment. FLOR DOMINGO introduced self and role at [facility], pt voices understanding and consents to assessment. Pt is sitting up in bed in no distress on room air. Pt is A/Ox4 and answers all questions appropriately. Pt's daughter, Xochilt, is at bedside during assessment. Care providers, pharmacy, and demographics verified. Presentation: N/V, HR 29 on arrival Admitting dx: Hyperkalemia, bradycardia, renal failure PCP: Makenna Specialists: Katie, surgeon; Radhaone, pod; Jazlyn, uro Preferred Pharmacy: [facility] Insurance: [employer] Prescription Benefit: Self pay Living Will/HPOA: Pt has HPOA on file at [facility]. Pt's daughter, Kaitlyn Walton, is HPOA. LNOK: Kaitlyn Walton, daughter/HPOA; Xochilt Aide, daughter Living Arrangements: Pt lives with her daughter, Kaitlyn, and Kaitlyn's in 1 story home with no steps in and states no concerns at home. Pt states was independent with ADL's prior to admission. Transportation: Pt states her daughter, Xochilt, drives or she takes [facility] van and states no transportation concerns. DME/HHC: Pt has the following DME: cane, walker, w/c, grab bars, glucometer, and walk in tub. Pt states no need for any further DME. Pt has had [facility] and [facility] therapy in the past but has not been to SNF. Pt/daughter state no concerns with pt going home at time of discharge. Pt is retired. Pt does not smoke cigarettes or drink ETOH. Pt states no further concerns/needs. CM to follow for any further discharge planning/needs. Advised pt to ask for CM if any further questions/concerns/needs arise, voices understanding. Pt goal: Home Plan[place]
--- NOTE | 2021-07-19 15:22 | PCM.PN.REN ---
Subjective Subjective no new complaints. Feels better. Colostomy output has increased. Urine output is better. BUN and creatinine are better. Acidosis resolved. Potassium was down to 5.8. She is now in atrial fibrillation with normal ventricular response. Bradycardia is resolved. Objective Data Objective Data Vital Signs: Vital Signs Temp Pulse Resp BP Pulse Ox 98.2 F 66 16 132/65 H 94 07/19/21 13:17 07/19/21 13:17 07/19/21 13:17 07/19/21 13:17 07/19/21 13:17 Oxygen Delivery Method Room Air Weight: 62.3 kg Body Mass Index (BMI) 23.7 Intake & Output: Intake and Output for Last 24 Hours 07/17/21 07/18/21 07/19/21 23:59 23:59 23:59 Intake Total 3740 / 3800 2880 / 2880 Output Total 160 / 1610 1850 / 1850 Balance 3580 / 2190 1030 / 1030 Lab / Micro Data Result Diagrams: 07/19/21 04:59 07/19/21 04:59 Labs: Laboratory Results - last 24 hr 07/18/21 15:50: Urine Color Yellow, Urine Clarity Clear, Urine pH 5.0, Ur Specific [place] 1.020, Urine Protein 30 H, Urine Glucose (UA) Normal, Urine Ketones Negative, Urine Occult Blood Negative, Urine Nitrite Negative, Urine Bilirubin Negative, Urine Urobilinogen Normal, Ur Leukocyte Esterase Negative, Urine RBC 0 SEEN, Urine WBC 0 SEEN, Ur Squamous Epith Cells 0 SEEN, Urine Bacteria 0 SEEN, Urine Mucus 0 SEEN 07/18/21 15:50: U Random Total Protein 62.1 H, Urine Creatinine 136.00 07/18/21 18:43: Sodium 132 L, Potassium 7.2 H*, Chloride 100, Carbon Dioxide 18.0 L, Anion Gap 14, BUN 150 H*, Creatinine 7.78 H*, Estim Creat Clear Calc 4.98, Est GFR (MDRD) Af Amer 6 L, Est GFR (MDRD) Non-Af 5 L, BUN/Creatinine Ratio 19.3, Glucose 299 H, Calcium 9.7 07/18/21 21:05: POC Glucose 295 H 07/19/21 04:59: WBC 8.7, RBC 3.27 L, Hgb 9.7 L, Hct 28.4 L, MCV 86.9, MCH 29.7, MCHC 34.2, RDW Std Deviation 47.8 H, RDW Coeff of Monique 14.9 H, Plt Count 176, MPV 10.4, Immature Gran % (Auto) 0.300, Neut % (Auto) 61.5, Lymph % (Auto) 27.1, [place] % (Auto) 10.8 H, Eos % (Auto) 0.1, Baso % (Auto) 0.2, Absolute Neuts (auto) 5.4, Absolute Lymphs (auto) 2.36, Nucleated RBC % 0 07/19/21 04:59: Sodium 134 L, Potassium 5.8 H, Chloride 97 L, Carbon Dioxide 24.0, Anion Gap 13, BUN 144 H*, Creatinine 7.13 H, Estim Creat Clear Calc 5.43, Est GFR (MDRD) Af Amer 7 L, Est GFR (MDRD) Non-Af 6 L, BUN/Creatinine Ratio 20.2 H, Glucose 254 H, Calcium 9.0 07/19/21 06:44: POC Glucose 255 H 07/19/21 11:42: POC Glucose 332 H Micro: Microbiology 07/18/21 15:50 Urine, Catheterized Urine Culture - Preliminary GPC Poss Enterococcus sp Radiography Diagnostic Testing: Radiology Impression Echocardiogram 07/18/21 14:05 Interpretation Summary Left ventricular systolic function is normal. The estimated ejection fraction is 65 %. The left atrium is moderately enlarged. The right atrium is mildly enlarged. There is moderate mitral annular calcification. Extension mitral annular calcification onto the base of the posterior mitral valve leaflet. Anterior leaflet diffuse mitral valve thickening. The mitral papillary muscle appears thickened and/or calcified. Mild-Moderate (1-2+) mitral valve insufficiency. Moderate (2+) tricuspid valve insufficiency. The aortic valve is not well visualized, however, there appears to be diffuse thickening, calcification, and partial restriction. Mild to moderate aortic stenosis. Trivial pulmonic valve insufficiency. Right ventricular systolic pressure estimated to be 54 mmHg c/w pulmonary hypertension. Unable to assess diastolic dysfunction. Ordering Physician: Dipak Bales Referring Physician: Kelsy Mensah Performed By: Miki Valles RCS Renal Ultrasound 07/18/21 14:05 IMPRESSION: Left cortical thinning and atrophy suggesting medical renal disease Electronically Signed: Otis Baldwin MD at 18:57 EDT Reading Location ID and State: [facility] / [place] , Service support , Physical Exam Narrative Alert awake oriented x 3 no obvious distress no pallor no icterus no JVD s1s2 no murmurs lungs clear abdomen soft no organomegaly no edema no cyanosis Assessment & Plan Assessment/Plan (1) Acute hyperkalemia: PLAN: likely related to acute renal failure, acidosis. Potassium levels have improved significantly. When he currently is resolved. She is now in atrial fibrillation with controlled ventricular response. Discussed with family at bedside. (2) Renal failure: QUALIFIERS: Renal failure chronicity: acute Acute renal failure type: unspecified Qualified Code(s): N17.9 - Acute kidney failure, unspecified PLAN: cr was close to normal last month. CT abd no hydronephrosis. Likely volume depletion. urine output is better. BUN and creatinine are better. Fractional excretion of urea is fairly low. Likely volume depletion related to colostomy output and Lasix use. Maintain fluids for now. No indications for dialysis today.
--- NOTE | 2021-07-19 15:25 | CHAPLAIN ---
Type of Pastoral Visit _x__ Initial Visit ___ Follow-up Visit ___ On-call Visit ___ General Patient Visit ___ Spiritual Assessment ___ Family Conference ___ Bereavement ___ Rapid Response ___ Code Blue ___ Other (describe below) Pastoral Care Referral From _x__ Patient ___ Family ___ Nurse ___ Physician ___ Screwmaker Automatic ___ Supervisor Pumping ___ Other (describe below) Sacrament/Intervention _x__ Active listening ___ Anointing ___ Scientologist ___ Bereavement ___ Communion ___ Trish exploration ___ ___ Life review ___ Prayer ___ Reconciliation ___ Sacrament of Sick _x__ Supportive presence ___ Wedding ___ Other (describe below) Pastoral Comments patient remembers this wearing apparel folder from a previous admission and gives update on her condition; pt accepts presence but states her prayers have been answered and she is going home tomorrow after a good report; pt has family support
[2021-07-19 17:00] LABS: Bedside Glucose 270 mg/dL (74-106)
[2021-07-19 21:11] LABS: Bedside Glucose 238 mg/dL (74-106)
[2021-07-20] VITALS (9 sets, daily range): BP systolic 113–141; BP diastolic 62–81; PULSE 70–95; RESP 16; TEMP 36.4–36.6; O2SAT 93–99
[2021-07-20 04:52] LABS: Absolute Neutrophil Count 3.4 X10^3/uL (2.0-7.7); Basophil# 0.05 X10^3/uL; Basophil% 0.8 % (0-1); Eosinophil# 0.05 X10^3/uL; Eosinophils% 0.8 % (0-5); Hematocrit 28.3 % (37-47); Hemoglobin 9.6 g/dL (12.0-15.0); Lymphocyte % 31.8 % (19-41); Mean Corp Hgb Conc 33.9 g/dL (32-36); Mean Corpuscular Hgb 29.4 pg (27.0-32.0); Mean Corpuscular Volume 86.5 fL (81-99); Mean Platelet Vol. 10.2 fl (6.2-12.0); Monocyte# 0.96 X10^3/uL; Monocyte% 14.5 % (0-10); NRBC Flagged by Analyzer 0 % (0-5); Neutrophil # 3.43 X10^3/uL (2.7-7.7); Neutrophil % 51.8 % (47-70); Platelet Count 147 K/mm3 (150-450); RBC Distribution Width CV 14.9 % (11.6-14.6); RBC Distribution Width SD 47.7 fl (35.1-43.9); Red Blood Count 3.27 M/mm3 (4.2-5.4); White Blood Count 6.6 K/mm3 (4.4-11.0)
[2021-07-20 05:30] LABS: Anion Gap 8 (5-15); BUN 112 mg/dL (7-18); BUN/Creat Ratio 20.3 RATIO (10-20); Chloride 93 mmol/L (98-107); Creatinine, Serum 5.52 mg/dL (0.55-1.02); EST Glomerular Filtration Rate 8 mL/min (>60); Est Glom Filt Rate - Afr Amer 10 mL/min (>60); Estimated Creatinine Clearance 7.02 ml/min; Glucose 241 mg/dL (74-106); Potassium 4.4 mmol/L (3.5-5.1); Sodium Level 135 mmol/L (136-145)
[2021-07-20] MEDS: Insulin Lispro 100 UNIT/ML INSULN.PEN SC ×4 (06:56→21:09)
[2021-07-20 07:00] LABS: Bedside Glucose 237 mg/dL (74-106)
[2021-07-20] MEDS: Heparin Injection (Vial) 5,000 UNIT/ML VIAL 5000 UNIT SC ×2 (08:59→21:12)
--- NOTE | 2021-07-20 09:01 | PN.CARD_ITS ---
Subjective Subjective The patient states she is feeling better overall. She denies any ongoing palpitations, chest discomfort or difficulty breathing. Objective Data Vital Signs: Vital Signs Temp Pulse Resp BP Pulse Ox 97.6 F L 80 16 115/81 H 93 07/20/21 08:52 07/20/21 08:52 07/20/21 08:52 07/20/21 08:52 07/20/21 08:52 Oxygen Delivery Method Room Air Weight: 141 lb 15.643 oz Body Mass Index (BMI) 23.7 Intake & Output: Intake and Output for Last 24 Hours 07/18/21 07/19/21 07/20/21 23:59 23:59 23:59 Intake Total 3740 / 3800 5592.5 / 5592.5 1122.5 / 1122.5 Output Total 160 / 1610 1850 / 1850 Balance 3580 / 2190 3742.5 / 3742.5 1122.5 / 1122.5 Lab / Micro Data Result Diagrams: 07/20/21 04:44 07/20/21 04:44 Labs: Laboratory Results - last 24 hr 07/19/21 11:42: POC Glucose 332 H 07/19/21 16:51: POC Glucose 270 H 07/19/21 21:01: POC Glucose 238 H 07/20/21 04:44: WBC 6.6, RBC 3.27 L, Hgb 9.6 L, Hct 28.3 L, MCV 86.5, MCH 29.4, MCHC 33.9, RDW Std Deviation 47.7 H, RDW Coeff of Monique 14.9 H, Plt Count 147 L, MPV 10.2, Immature Gran % (Auto) 0.300, Neut % (Auto) 51.8, Lymph % (Auto) 31.8, [place] % (Auto) 14.5 H, Eos % (Auto) 0.8, Baso % (Auto) 0.8, Absolute Neuts (auto) 3.4, Absolute Lymphs (auto) 2.10, Nucleated RBC % 0 07/20/21 04:44: Sodium 135 L, Potassium 4.4, Chloride 93 L, Carbon Dioxide 34.0 H, Anion Gap 8, BUN 112 H*, Creatinine 5.52 H, Estim Creat Clear Calc 7.02, Est GFR (MDRD) Af Amer 10 L, Est GFR (MDRD) Non-Af 8 L, BUN/Creatinine Ratio 20.3 H, Glucose 241 H, Calcium 8.0 L 07/20/21 06:55: POC Glucose 237 H Micro: Microbiology 07/18/21 15:50 Urine, Catheterized Urine Culture - Preliminary GPC Poss Enterococcus sp Cardiology Labs/Tests 07/20/21 04:44: WBC 6.6, RBC 3.27 L, Hgb 9.6 L, Hct 28.3 L, MCV 86.5, MCH 29.4, MCHC 33.9, Plt Count 147 L, MPV 10.2, Immature Gran % (Auto) 0.300, Neut % (Auto) 51.8, Lymph % (Auto) 31.8, [place] % (Auto) 14.5 H, Eos % (Auto) 0.8, Baso % (Auto) 0.8, Absolute Neuts (auto) 3.4, Nucleated RBC % 0 07/20/21 04:44: Sodium 135 L, Potassium 4.4, Chloride 93 L, Carbon Dioxide 34.0 H, Anion Gap 8, BUN 112 H*, Creatinine 5.52 H, Est GFR (MDRD) Af Amer 10 L, Est GFR (MDRD) Non-Af 8 L, BUN/Creatinine Ratio 20.3 H, Glucose 241 H, Calcium 8.0 L Rhythm: Atrial fibrillation with controlled ventricular response Physical Exam Const alert and oriented x3 Orientation / Consciousness: awake HEENT normocephalic, head/scalp atraumatic and hearing grossly normal bilaterally Eyes PERRL, EOMs intact bilaterally, conjunctivae normal and no scleral icterus Neck full ROM, supple and no JVD Resp clear to auscultation bilaterally Cardio S1 normal heart sound and S2 normal heart sound Rate: bradycardia Rhythm: abnormal rhythm irregularly irregular Heart Sounds: murmur systolic II/ soft mid left sternal border, LVOT and sternal notch GI normal to inspection, nondistended, normoactive bowel sounds Extremity no pedal edema Skin no rashes or lesions noted Neuro oriented x3, moves all extremities, no focal motor deficits and no sensory deficits noted Psych mental status grossly normal Assessment & Plan Assessment/Plan (1) Bradycardia: PLAN: The patient has been found to have evidence of an underlying junctional bradycardia. The etiology may be secondary to the patient's acute renal failure and hyperkalemia. The patient has been treated medically for her renal failure and hyperkalemia. Her creatinine level and potassium level are somewhat improved. It has now been noted the patient cardiac rhythm has altered and she is currently now in atrial fibrillation with a controlled ventricular response. As her ventricular response is controlled she does not appear to require rate limiting medications at this time, and there would be hesitancy in proceeding with such based upon her fluctuating renal status and the current concerns of recurrent marked bradycardia. If she remains in atrial fibrillation she will need to be considered for long- term oral systemic anticoagulant therapy to minimize the risk of thromboembolic events. (2) CAD (coronary artery disease): QUALIFIERS: Coronary Disease-Associated Artery/Lesion type: bypass graft [place] vs. transplanted heart: teller heart Associated angina: without angina Qualified Code(s): I25.810 - Atherosclerosis of coronary artery bypass graft(s) without angina pectoris PLAN: The patient has a history of CAD. The details are unknown. An attempt will be made to retrieve records for continuity of care. In the meantime she can continue medical therapy taken into consideration adjustments needed for her renal insufficiency and her hyperkalemia. (3) S/P CABG (coronary artery bypass graft): PLAN: The patient states she has had CABG performed in the past. Again the details are unknown. An attempt will be made to retrieve medical records for continuity of care. (4) HLD (hyperlipidemia): PLAN: The patient has a history of hyperlipidemia. It appears based upon her medical record she has not been on lipid-lowering therapy with agents such as statins as they are listed on her allergy list based upon concerns of myalgias and joint discomfort. (5) Hypertension: PLAN: The patient's blood pressure will need to be monitored. She can continue medical therapy taking into consideration the need to avoid rate limiting agents as well as agents that would negatively interact with her renal insufficiency. (6) Type 2 diabetes mellitus: PLAN: The patient will continue evaluation care per internal medicine. (7) Renal failure: QUALIFIERS: Renal failure chronicity: acute Acute renal failure type: unspecified Qualified Code(s): N17.9 - Acute kidney failure, unspecified PLAN: The patient is being evaluated by nephrology. It appears with medical management that her creatinine has improved as well as her potassium level however her BUN level has increased. (8) Acute hyperkalemia: PLAN: The patient does have acute hyperkalemia which may be secondary to her acute renal insufficiency which may be secondary to what appears to be poor oral intake and dehydration. At the present time she is continuing medical therapy under the direction of internal medicine and nephrology to assist with bringing her potassium level under better control. Her potassium levels have improved. Addt'l Comments Overall, the patient, if her cardiac rate remains stable, and if her renal function improves, and if her electrolytes remain stable, will eventually need to be restarted on appropriate cardiovascular medical therapy for her cardiac conditions taking into consideration the avoidance of medications, especially if her renal function will fluctuate, that may negatively impact her underlying cardiac rate. This note was generated using a voice recognition system and there may be incorrect words, spelling or punctuation that were not noted when reviewing the office note prior to saving.
--- NOTE | 2021-07-20 10:29 | PCM.PN.REN ---
Subjective Subjective Following for acute kidney injury and hyperkalemia. The patient denies chest pain or shortness of breath. Appetite has improved. There is no edema. Objective Data Objective Data Vital Signs: Vital Signs Temp Pulse Resp BP Pulse Ox 97.6 F L 80 16 115/81 H 93 07/20/21 08:52 07/20/21 08:52 07/20/21 08:52 07/20/21 08:52 07/20/21 08:52 Oxygen Delivery Method Room Air Weight: 64.4 kg Body Mass Index (BMI) 23.7 Intake & Output: Intake and Output for Last 24 Hours 07/18/21 07/19/21 07/20/21 23:59 23:59 23:59 Intake Total 3740 / 3800 5592.5 / 5592.5 1122.5 / 1122.5 Output Total 160 / 1610 1850 / 1850 Balance 3580 / 2190 3742.5 / 3742.5 1122.5 / 1122.5 Lab / Micro Data Result Diagrams: 07/20/21 04:44 07/20/21 04:44 Labs: Laboratory Results - last 24 hr 07/19/21 11:42: POC Glucose 332 H 07/19/21 16:51: POC Glucose 270 H 07/19/21 21:01: POC Glucose 238 H 07/20/21 04:44: WBC 6.6, RBC 3.27 L, Hgb 9.6 L, Hct 28.3 L, MCV 86.5, MCH 29.4, MCHC 33.9, RDW Std Deviation 47.7 H, RDW Coeff of Monique 14.9 H, Plt Count 147 L, MPV 10.2, Immature Gran % (Auto) 0.300, Neut % (Auto) 51.8, Lymph % (Auto) 31.8, [place] % (Auto) 14.5 H, Eos % (Auto) 0.8, Baso % (Auto) 0.8, Absolute Neuts (auto) 3.4, Absolute Lymphs (auto) 2.10, Nucleated RBC % 0 07/20/21 04:44: Sodium 135 L, Potassium 4.4, Chloride 93 L, Carbon Dioxide 34.0 H, Anion Gap 8, BUN 112 H*, Creatinine 5.52 H, Estim Creat Clear Calc 7.02, Est GFR (MDRD) Af Amer 10 L, Est GFR (MDRD) Non-Af 8 L, BUN/Creatinine Ratio 20.3 H, Glucose 241 H, Calcium 8.0 L 07/20/21 06:55: POC Glucose 237 H Micro: Microbiology 07/18/21 15:50 Urine, Catheterized Urine Culture - Preliminary GPC Poss Enterococcus sp Physical Exam Narrative General: Alert awake oriented x 3, no obvious distress Skin: No pallor no icterus Neck: No JVD Heart: Irregularly irregular s1s2, no murmurs Lungs: Clear to auscultation bilaterally Abdomen: Soft, nontender, no guarding, no organomegaly Extremity: No edema, no cyanosis Assessment & Plan Assessment/Plan (1) ALEISHA (acute kidney injury): PLAN: - ALEISHA is likely due to ischemic ATN from volume depletion in the setting of concurrent use of TRACY inhibitor and furosemide. -Renal function has been improving with volume expansion. -Serum creatinine peaked at 8.32 mg/dL on 07/18/2021 and is down to 5.52 mg/dL today. -Since her renal functions improving with better appetite, I will stop IV fluid. -Recheck renal function again tomorrow. If renal function continues to improve, the patient can be discharged from my standpoint with outpatient follow-up of renal function. -Since the patient does not look volume overloaded, I would hold Lasix for now. -Continue to hold lisinopril for now until serum creatinine falls below 2.00 mg/dL. (2) Chronic kidney disease, stage 3b: PLAN: - Baseline serum creatinine is 1.3 to 1.5 mg/dL. (3) Acute hyperkalemia: PLAN: -Resolved. -Potassium level peaked at 8.8 mmol/L on 07/18/2021. Potassium level is 4.4 mmol/L today. -Continue to hold lisinopril until serum creatinine falls below 2.00 mg/dL. (4) Metabolic acidosis: PLAN: - Acidosis was likely due to increased ostomy output along with ALEISHA. -Serum bicarbonate level has improved with sodium bicarbonate drip. -Since bicarbonate level is now above 30 mmol/L, I will stop sodium bicarbonate drip. -Encouraged patient to push oral intake since we are stopping IV fluid altogether. (5) Hypertension: PLAN: - BP is well controlled without antihypertensives. -She is off of lisinopril, atenolol, and amlodipine. -If blood pressure rises above 130/80 consistently, amlodipine can be restarted. Would hold lisinopril and furosemide for now.
[2021-07-20 11:35] LABS: Bedside Glucose 382 mg/dL (74-106)
--- NOTE | 2021-07-20 11:40 | PCM.PN.HOSP ---
Documented by User: Feliciano ECHEVERRIA 07/20/21 11:48 Subjective Subjective Patient is an 80-year-old female comfortably resting in a chair, alert and orient x3. Patient denies development of any new symptoms overnight. Does not appear in acute distress. Objective Data Objective Data Vital Signs: Vital Signs Temp Pulse Resp BP Pulse Ox 97.6 F L 80 16 115/81 H 93 07/20/21 08:52 07/20/21 08:52 07/20/21 08:52 07/20/21 08:52 07/20/21 08:52 Oxygen Delivery Method Room Air Weight: 141 lb 15.643 oz Body Mass Index (BMI) 23.7 Intake & Output: Intake and Output for Last 24 Hours 07/18/21 07/19/21 07/20/21 23:59 23:59 23:59 Intake Total 3740 / 3800 5592.5 / 5592.5 1747.5 / 1747.5 Output Total 160 / 1610 1850 / 1850 Balance 3580 / 2190 3742.5 / 3742.5 1747.5 / 1747.5 Lab / Micro Data Result Diagrams: 07/20/21 04:44 07/20/21 04:44 Labs: Laboratory Results - last 24 hr 07/19/21 11:42: POC Glucose 332 H 07/19/21 16:51: POC Glucose 270 H 07/19/21 21:01: POC Glucose 238 H 07/20/21 04:44: WBC 6.6, RBC 3.27 L, Hgb 9.6 L, Hct 28.3 L, MCV 86.5, MCH 29.4, MCHC 33.9, RDW Std Deviation 47.7 H, RDW Coeff of Monique 14.9 H, Plt Count 147 L, MPV 10.2, Immature Gran % (Auto) 0.300, Neut % (Auto) 51.8, Lymph % (Auto) 31.8, [place] % (Auto) 14.5 H, Eos % (Auto) 0.8, Baso % (Auto) 0.8, Absolute Neuts (auto) 3.4, Absolute Lymphs (auto) 2.10, Nucleated RBC % 0 07/20/21 04:44: Sodium 135 L, Potassium 4.4, Chloride 93 L, Carbon Dioxide 34.0 H, Anion Gap 8, BUN 112 H*, Creatinine 5.52 H, Estim Creat Clear Calc 7.02, Est GFR (MDRD) Af Amer 10 L, Est GFR (MDRD) Non-Af 8 L, BUN/Creatinine Ratio 20.3 H, Glucose 241 H, Calcium 8.0 L 07/20/21 06:55: POC Glucose 237 H 07/20/21 11:28: POC Glucose 382 H Micro: Microbiology 07/18/21 15:50 Urine, Catheterized Urine Culture - Preliminary GPC Poss Enterococcus sp Physical Exam Const alert, oriented x3 and no apparent distress HEENT head/scalp atraumatic and moist oral mucous membranes Head and Scalp: normocephalic Eyes PERRL, EOMs intact bilaterally and conjunctivae normal Neck no lymphadenopathy, supple and no JVD Resp normal respiratory effort, no retractions and no use of accessory muscles Cardio regular rate, regular rhythm and no JVD GI normal to inspection, nondistended, normoactive bowel sounds Extremity normal to inspection, full ROM and no clubbing, cyanosis or edema Skin no rashes or lesions noted, no wounds and skin turgor normal Neuro CN's II-XII intact bilaterally Psych affect normal Assessment & Plan Assessment/Plan (1) Acute hyperkalemia: (2) Renal failure: QUALIFIERS: Acute renal failure type: unspecified Renal failure chronicity: acute Qualified Code(s): N17.9 - Acute kidney failure, unspecified (3) Bradycardia: PLAN: Day 2 Discharge planning: Current plan is for patient to discharge home when medically ready. 1) junctional bradycardia Possibly related to patient's acute renal failure and hyperkalemia seen on admission. Patient now with atrial fibrillation, although rate is controlled. Patient and family not interested in pacemaker placement at this time, cardiology following. 2) acute kidney injury Creatinine continues to improve, currently 5.5. CT of the abdomen revealed no hydronephrosis. Nephrology following: Recommendations are to discontinue IV fluids as well as IV bicarbonate given that patient is eating and drinking well and renal function continues to improve. Continue to hold Lasix and lisinopril. 3) hyperkalemia Resolved, creatinine currently 4.4. We will continue to monitor. 4) CAD/HLD/HTN Status post CABG, not on statin regimen given allergy. Will resume home cardiovascular regimen on discharge when renal function has improved. DVT prophylaxis - Heparin. Patient seen by Feliciano Mercado PA-C, under the supervision of Dr. Bales. Time spent on patient care: 9 minutes. Documented by User: Dr. Dipak Bales, DO 07/20/21 16:16 Subjective Subjective Feels well. Wants to go home. Objective Data Lab / Micro Data Result Diagrams: 07/20/21 04:44 07/20/21 04:44 Physical Exam Const alert, no apparent distress and average body habitus Resp normal respiratory effort, no retractions, no use of accessory muscles and clear to auscultation bilaterally Cardio regular rate, regular rhythm, S1 normal heart sound and S2 normal heart sound GI normal to inspection, nondistended, normoactive bowel sounds, soft to palpation, non-tender and non-distended Extremity normal to inspection and full ROM Assessment & Plan Assessment/Plan (1) Bradycardia: (2) Metabolic acidosis: (3) ALEISHA (acute kidney injury): (4) Afib: PLAN: Pt seen and examined independently data reviewed. I agree with the above PA note. 1. Junctional bradycardia Resolved. No further events with correction of hyperkalemia Secondary to severe hyperkalemia Appears to be resolved at this time as patient appears to be normal sinus rhythm on telemetry Treat the underlying process, which would be the hyperkalemia Repeat EKG Cardiology input appreciated. No indication for pacemaker (which she did not want anyway) 2. Severe hyperkalemia Improved Not hemolyzed on the sample Patient received calcium, albuterol and IV insulin and dextrose Recheck potassium and if still high will give Kayexalate 3. Acute kidney injury FEUrea 2.4% Suspect prerenal as well as a component of ATN given the traumatic severity Renal US unremarkable High-output for ostomy. AMANDA Geiger, DC HCO3 gtt today and observe labs in AM. 4. Intractable nausea and vomiting resolved may have been due to uremia. Zofran as needed CT abd/pelvis unremarkable 5. afib rate-controlled monitor will initiate anticoagulation if persists 6. VTE prophylaxis with subcu heparin 7. Disposition: tentative plan for home 07/21 Charges/Coding Visit Charges Inpatient E&M: 46140 Subs Hosp L2
[2021-07-20 16:26] LABS: Bedside Glucose 228 mg/dL (74-106)
[2021-07-20 22:45] LABS: Bedside Glucose 233 mg/dL (74-106)
[2021-07-21 03:00] VITALS: PULSE 74
[2021-07-21 03:14] VITALS: BP 110/59; PULSE 76; RESP 18; TEMP 36.4; O2SAT 95
[2021-07-21 05:09] LABS: Anion Gap 8 (5-15); BUN 83 mg/dL (7-18); BUN/Creat Ratio 19.7 RATIO (10-20); Calcium,Total 8.4 mg/dL (8.5-10.1); Chloride 98 mmol/L (98-107); Creatinine, Serum 4.21 mg/dL (0.55-1.02); EST Glomerular Filtration Rate 11 mL/min (>60); Est Glom Filt Rate - Afr Amer 13 mL/min (>60); Glucose 154 mg/dL (74-106); Potassium 3.5 mmol/L (3.5-5.1); Sodium Level 135 mmol/L (136-145)
[2021-07-21] MEDS: Insulin Lispro 100 UNIT/ML INSULN.PEN SC ×2 (06:44→11:25)
[2021-07-21 06:51] LABS: Bedside Glucose 162 mg/dL (74-106)
[2021-07-21 07:59] VITALS: PULSE 79
[2021-07-21 09:15] VITALS: BP 122/64; PULSE 68; RESP 18; TEMP 35.7; O2SAT 100
[2021-07-21] MEDS: Heparin Injection (Vial) 5,000 UNIT/ML VIAL 5000 UNIT SC (09:16)
--- NOTE | 2021-07-21 10:49 | PCM.DC ---
Discharge Instructions Diet Discharge Diet: No restrictions Activity Discharge Activity: Return to Normal Activity Weight Bearing Status: Weight bearing as tolerated Dressing / Incision Call your doctor if you observe: Fever of 101 or Higher, Numbness or Tingling, Shortness of breath, Dizziness, Chest pain, Increased palpitations (irregular heartbeat) and Calf discomfort Follow Up Care Please Follow Up With: Primary care provider When: Within the next two weeks. Test Results: Test results from this visit will be discussed in further detail at your follow-up appointment, if applicable. Discharge Plan Admission Admit Date/Time: 07/18/21 12:37 Primary Reason for Your Visit: Bradycardia Attending Provider: Dipak Bales Primary Care Provider: Kelsy Mensah Consulting Providers: Lincoln Wells ; Deonte Barfield Discharge Orders/Prescriptions Prescriptions: New Eliquis 2.5 mg tablet 2.5 mg PO BID Qty: 60 RF: 0 Continued metformin 500 MG tablet 500 mg PO TIDCM RF: 0 glyburide 5 MG tablet 2.5 mg PO QODAY RF: 0 multivitamin 1 EACH tablet 1 ea PO DAILY@1200 RF: 0 cyanocobalamin (vitamin B-12) 1,000 MCG tablet 1,000 mcg PO DAILY@1200 RF: 0 ascorbic acid (vitamin C) 500 MG tablet 500 mg PO DAILY@1200 RF: 0 cholecalciferol (vitamin D3) 1,000 UNIT capsule 1,000 unit PO DAILY@1200 RF: 0 omega-3 fatty acids-fish oil 1 EACH capsule,delayed release(DR/EC) 1 cap PO BID RF: 0 aspirin 81 MG tablet,chewable 81 mg PO DAILY RF: 0 magnesium oxide 400 MG tablet 400 mg PO DAILY@1200 RF: 0 amlodipine 5 mg tablet 10 mg PO DAILY RF: 0 Held atenolol 50 MG tablet 50 mg PO BID RF: 0 Hold Instructions: Hold until told to resume by your [facility] [employer] [facility]. furosemide 40 mg tablet 40 mg PO QODAY RF: 0 Hold Instructions: Hold until told to resume by your [facility]. lisinopril 20 mg tablet 20 mg PO DAILY RF: 0 Hold Instructions: Hold until told to resume by your [facility]. Referrals / Follow Up: Kelsy Mensah MD [Primary Care Provider] - Within 2 Weeks Deonte Barfield MD [STAFF PHYSICIAN] - In 1 Week (Follow up within the next 1-2 weeks, or at earliest possible appointment. ) Lincoln Wells MD [STAFF PHYSICIAN] - In 1 Week (Follow up within the next 1-2 weeks, or at earliest possible appointment. ) Disposition Disposition (needs filled in before D/C Order can be placed): Home, Self Care
--- NOTE | 2021-07-21 11:04 | PN.CARD_ITS ---
Subjective Subjective The patient appears to be feeling better overall. She denies any ongoing chest discomfort, difficulty breathing, or obvious palpitations at this time. Objective Data Vital Signs: Vital Signs Temp Pulse Resp BP Pulse Ox 97.6 F L 76 18 110/59 L 95 07/21/21 03:14 07/21/21 03:14 07/21/21 03:14 07/21/21 03:14 07/21/21 03:14 Oxygen Delivery Method Room Air Weight: 115 lb 8.356 oz Body Mass Index (BMI) 23.7 Intake & Output: Intake and Output for Last 24 Hours 07/19/21 07/20/21 07/21/21 23:59 23:59 23:59 Intake Total 5592.5 / 5592.5 2867.5 / 3107.5 540 / 540 Output Total 1850 / 1850 1150 / 1975 1425 / 1425 Balance 3742.5 / 3742.5 1717.5 / 1132.5 -885 / -885 Lab / Micro Data Result Diagrams: 07/20/21 04:44 07/21/21 03:52 Labs: Laboratory Results - last 24 hr 07/20/21 11:28: POC Glucose 382 H 07/20/21 16:10: POC Glucose 228 H 07/20/21 21:08: POC Glucose 233 H 07/21/21 03:52: Sodium 135 L, Potassium 3.5, Chloride 98, Carbon Dioxide 29.0, Anion Gap 8, BUN 83 H, Creatinine 4.21 H, Estim Creat Clear Calc 9.20, Est GFR (MDRD) Af Amer 13 L, Est GFR (MDRD) Non-Af 11 L, BUN/Creatinine Ratio 19.7, Glucose 154 H, Calcium 8.4 L 07/21/21 06:43: POC Glucose 162 H Micro: Microbiology 07/18/21 15:50 Urine, Catheterized Urine Culture - Final Enterococcus faecalis Cardiology Labs/Tests 07/21/21 03:52: Sodium 135 L, Potassium 3.5, Chloride 98, Carbon Dioxide 29.0, Anion Gap 8, BUN 83 H, Creatinine 4.21 H, Est GFR (MDRD) Af Amer 13 L, Est GFR (MDRD) Non-Af 11 L, BUN/Creatinine Ratio 19.7, Glucose 154 H, Calcium 8.4 L Rhythm: Atrial fibrillation with controlled ventricular response Physical Exam Const alert and oriented x3 Orientation / Consciousness: awake HEENT normocephalic, head/scalp atraumatic and hearing grossly normal bilaterally Eyes PERRL, EOMs intact bilaterally, conjunctivae normal and no scleral icterus Neck full ROM, supple and no JVD Resp clear to auscultation bilaterally Cardio S1 normal heart sound and S2 normal heart sound Rate: bradycardia Rhythm: abnormal rhythm irregularly irregular Heart Sounds: murmur systolic II/ soft mid left sternal border, LVOT and sternal notch GI normal to inspection, nondistended, normoactive bowel sounds Extremity no pedal edema Skin no rashes or lesions noted Neuro oriented x3, moves all extremities, no focal motor deficits and no sensory deficits noted Psych mental status grossly normal Assessment & Plan Assessment/Plan (1) Bradycardia: PLAN: The patient has been found to have evidence of an underlying junctional bradycardia. The etiology may be secondary to the patient's acute renal failure and hyperkalemia. The patient has been treated medically for her renal failure and hyperkalemia. Her creatinine level and potassium level are somewhat improved. It has now been noted the patient cardiac rhythm has altered and she is currently now in atrial fibrillation with a controlled ventricular response. As her ventricular response is controlled she does not appear to require rate limiting medications at this time, and there would be hesitancy in proceeding with such based upon her fluctuating renal status and the current concerns of recurrent marked bradycardia. If she remains in atrial fibrillation she will need to be considered for long- term oral systemic anticoagulant therapy to minimize the risk of thromboembolic events. This could include agents such as apixaban at 2.5 mg p.o. twice daily. (2) CAD (coronary artery disease): QUALIFIERS: Coronary Disease-Associated Artery/Lesion type: bypass graft [place] vs. transplanted heart: [place] heart Associated angina: without angina Qualified Code(s): I25.810 - Atherosclerosis of coronary artery bypass graft(s) without angina pectoris PLAN: The patient has a history of CAD. The details are unknown. An attempt will be made to retrieve records for continuity of care. In the meantime she can continue medical therapy taken into consideration adjustments needed for her renal insufficiency and her hyperkalemia. (3) S/P CABG (coronary artery bypass graft): PLAN: The patient states she has had CABG performed in the past. Again the details are unknown. An attempt will be made to retrieve medical records for continuity of care. (4) HLD (hyperlipidemia): PLAN: The patient has a history of hyperlipidemia. It appears based upon her medical record she has not been on lipid-lowering therapy with agents such as statins as they are listed on her allergy list based upon concerns of myalgias and joint discomfort. (5) Hypertension: PLAN: The patient's blood pressure will need to be monitored. She can continue medical therapy taking into consideration the need to avoid rate limiting agents as well as agents that would negatively interact with her renal insufficiency. (6) Type 2 diabetes mellitus: PLAN: The patient will continue evaluation care per internal medicine. (7) Renal failure: QUALIFIERS: Renal failure chronicity: acute Acute renal failure type: unspecified Qualified Code(s): N17.9 - Acute kidney failure, unspecified PLAN: The patient is being evaluated by nephrology. It appears with medical management that her creatinine has improved. She will continue to be followed by nephrology. (8) Acute hyperkalemia: PLAN: The patient does have acute hyperkalemia which may be secondary to her acute renal insufficiency which may be secondary to what appears to be poor oral intake and dehydration. Her potassium levels have improved. Addt'l Comments At the present time the patient appears to be symptomatically improved. Her cardiac rhythm has improved from her previous bradycardia dysrhythmias with an idioventricular rhythm and junctional rhythm to atrial fibrillation with controlled ventricular response as her renal function and potassium levels have improved. At the moment she request continued conservative medical management. Thus, she will continue medical therapy with respect to her underlying cardiovascular condition as she tolerates. There is caution with respect to resuming any rate limiting medication based upon concerns of the patient having recurrent bradycardia dysrhythmias. However, she should be considered for anticoagulant therapy based upon her underlying atrial fibrillation with adjustment of dose based upon her renal insufficiency. She did appear to be in agreement with continued outpatient cardiovascular follow-up, nephrology follow- up, and primary care follow-up. The patient's case was discussed and reviewed with Dr. Bales and the [facility] staff. This note was generated using a voice recognition system and there may be incorrect words, spelling or punctuation that were not noted when reviewing the office note prior to saving. Procedure Criteria Type of Procedure Procedure Type: Elective Elective Risks - COVID COVID Risk Discussion: The surgeon/proceduralist and patient have discussed in detail the risk of exposure to and/or potential harm posed by the COVID-19 virus with having a surgery/procedure at this time versus the risk of delaying the surgery/procedure. It is not possible to know either the risk of delaying the surgery or procedure or chance of getting an infection with perfect accuracy, but a joint decision was made between the patient and the surgeon/proceduralist to proceed at this time with the scheduled surgery/procedure as indicated on the consent form.
--- NOTE | 2021-07-21 11:26 | CASEMGMT ---
Pt dc'd on Eliquis. TC to [facility], spoke with [employer], they have applied the savings card for zero copay. Going forward cost would be $602.21. Will notify pt.
--- NOTE | 2021-07-21 11:30 | CASEMGMT ---
FLOR CM in to pt room. Made patient aware of savings card applied to eliquis and cost to her if needs refill. She is aware to notify her physician at follow up if this is not affordable to her to see if there can be changes made. Pt denies further needs at this time.
[2021-07-21 11:40] LABS: Bedside Glucose 245 mg/dL (74-106)
[2021-07-21 11:54] VITALS: PULSE 85
--- NOTE | 2021-07-21 12:26 | PCM.DC.SUM ---
Documented by User: Feliciano ECHEVERRIA 07/21/21 12:34 Providers Date of Admission: 07/18/21 Date of Discharge: 07/21/21 Primary Care Physician: Dr. Kelsy Mensah MD Consultations 07/18/21 14:05 Consult: Cardiology Routine Consulting Provider: Lincoln Wells Reason for Consult: junctional bradycardia EMERGENT Consult: No Notified: Yes Date Notified: 07/18/21 Time Notified: 12:50 Method of Notification: ED Physician Initiated Consult: Nephrology Routine Consulting Provider: Deonte Barfield Reason for Consult: ALEISHA EMERGENT Consult: No Notified: Yes Date Notified: 07/18/21 Time Notified: 12:47 Method of Notification: Verbal Reason For Visit: HYPERKALEMIA Diagnosis Discharge Diagnosis (1) Bradycardia: Status: Acute Code(s): R00.1 - Bradycardia, unspecified (2) CAD (coronary artery disease): Status: Chronic Code(s): I25.10 - Atherosclerotic heart disease of [place] coronary artery without angina pectoris Qualifiers: Associated angina: without angina Coronary Disease-Associated Artery/Lesion type: bypass graft [place] vs. transplanted heart: [place] heart Qualified Code(s): I25.810 - Atherosclerosis of coronary artery bypass graft(s) without angina pectoris (3) S/P CABG (coronary artery bypass graft): Status: Acute Code(s): Z95.1 - Presence of aortocoronary bypass graft (4) HLD (hyperlipidemia): Status: Acute Code(s): E78.5 - Hyperlipidemia, unspecified (5) Hypertension: Status: Chronic Code(s): I10 - Essential (primary) hypertension (6) Type 2 diabetes mellitus: Status: Chronic Code(s): E11.9 - Type 2 diabetes mellitus without complications (7) Renal failure: Status: Acute Code(s): N19 - Unspecified kidney failure Qualifiers: Acute renal failure type: unspecified Renal failure chronicity: acute Qualified Code(s): N17.9 - Acute kidney failure, unspecified (8) Acute hyperkalemia: Status: Acute Code(s): E87.5 - Hyperkalemia Medications at Discharge Home Medications glyburide 2.5 mg PO QODAY 08/26/15 metformin 500 mg PO TIDCM 08/26/15 ascorbic acid (vitamin C) 500 mg PO DAILY@1200 12/09/16 atenolol 50 mg PO BID 12/09/16 cholecalciferol (vitamin D3) 1,000 unit PO DAILY@1200 12/09/16 cyanocobalamin (vitamin B-12) 1,000 mcg PO DAILY@1200 12/09/16 multivitamin 1 ea PO DAILY@1200 12/09/16 omega-3 fatty acids-fish oil 1 cap PO BID 12/09/16 aspirin 81 mg PO DAILY 06/11/17 magnesium oxide 400 mg PO DAILY@1200 03/01/20 furosemide 40 mg PO QODAY 05/31/21 amlodipine 10 mg PO DAILY 07/18/21 lisinopril 20 mg PO DAILY 07/18/21 apixaban [Eliquis] 2.5 mg PO BID #60 tab 07/21/21 Hospital Course Summary of Care Provided Minutes Spent on Discharge: 20 Hospital Course: Patient is an 80-year-old female who was admitted to [facility] on 07/18/2021 for evaluation and management of abnormal labs with bradycardia. Hospital course and management as below. 1) junctional bradycardia Possibly related to patient's acute renal failure and hyperkalemia seen on admission. Patient now with atrial fibrillation, although rate is controlled. Patient and family not interested in pacemaker placement at this time. We will hold patient's atenolol on discharge, patient is to follow-up with Dr. Wells within the next 1 to 2 weeks. 2) new onset atrial fibrillation Patient developed atrial fibrillation throughout the course of admission, although rate was controlled. We will hold home atenolol given #1, however initiate Eliquis at 2.5 mg p.o. twice daily given patient's age and renal function. Patient is to follow-up with Dr. Wells as above. 3) acute kidney injury Creatinine continues to improve, currently 4.2. CT of the abdomen revealed no hydronephrosis. Nephrology followed throughout admission. Believes patient's ALEISHA was a result of ischemic ATN through volume depletion due to overly aggressive hypertensive management with concurrent TRACY inhibitor and Lasix. Patient was given IV fluids and bicarb while creatinine continue to improve. We will hold Lasix and TRACY inhibitor and patient is to follow-up with nephrology on discharge. 3) hyperkalemia Resolved, creatinine currently 3.5. We will continue to monitor. 4) CAD/HLD/HTN Hold Lasix, lisinopril and atenolol as above. Follow-up with cardiology as above. Patient seen by Feliciano Mercado PA-C, under the supervision of Dr. Bales. Time spent on patient care: 20 minutes. Physical Exam Narrative Patient is an 80-year-old female comfortably resting in bed, alert and orient x3. Patient denies development of any new symptoms overnight. Does not appear in acute distress. Const alert, oriented x3 and no apparent distress HEENT normocephalic, head/scalp atraumatic and hearing grossly normal bilaterally Eyes PERRL, EOMs intact bilaterally and conjunctivae normal Neck no lymphadenopathy, supple and no JVD Resp normal respiratory effort, no retractions and no use of accessory muscles Cardio regular rate, regular rhythm and no JVD GI normal to inspection, nondistended, normoactive bowel sounds and non-tender Extremity normal to inspection, full ROM and no clubbing, cyanosis or edema Skin no rashes or lesions noted, no wounds and skin turgor normal Neuro CN's II-XII intact bilaterally Psych affect normal Weight / BMI Weight Weight: 115 lb 8.356 oz Body Mass Index (BMI) 23.7 ABG / Lab / Microbiology Data Result Diagrams: 07/20/21 04:44 07/21/21 03:52 Laboratory: Laboratory Results - last 24 hr 07/20/21 16:10: POC Glucose 228 H 07/20/21 21:08: POC Glucose 233 H 07/21/21 03:52: Sodium 135 L, Potassium 3.5, Chloride 98, Carbon Dioxide 29.0, Anion Gap 8, BUN 83 H, Creatinine 4.21 H, Estim Creat Clear Calc 9.20, Est GFR (MDRD) Af Amer 13 L, Est GFR (MDRD) Non-Af 11 L, BUN/Creatinine Ratio 19.7, Glucose 154 H, Calcium 8.4 L 07/21/21 06:43: POC Glucose 162 H 07/21/21 11:24: POC Glucose 245 H Microbiology: Microbiology 07/18/21 15:50 Urine, Catheterized Urine Culture - Final Enterococcus faecalis D/C Instructions Discharge Diet: No restrictions Weight Bearing Status: Weight bearing as tolerated Call your doctor if you observe: Fever of 101 or Higher, Numbness or Tingling, Shortness of breath, Dizziness, Chest pain, Increased palpitations (irregular heartbeat) and Calf discomfort Please Follow Up With: Primary care provider When: Within the next two weeks. Meaningful Use Info Meaningful Use Diagnoses (Choose all that apply): None applicable Discharge Plan Admission Admit Date/Time: 07/18/21 12:37 Primary Reason for Your Visit: Bradycardia Attending Provider: Dipak Bales Primary Care Provider: Kelsy Mensah Consulting Providers: Lincoln Wells ; Deonte Barfield Discharge Orders/Prescriptions Prescriptions: New Eliquis 2.5 mg tablet 2.5 mg PO BID Qty: 60 RF: 0 Continued metformin 500 MG tablet 500 mg PO TIDCM RF: 0 glyburide 5 MG tablet 2.5 mg PO QODAY RF: 0 multivitamin 1 EACH tablet 1 ea PO DAILY@1200 RF: 0 cyanocobalamin (vitamin B-12) 1,000 MCG tablet 1,000 mcg PO DAILY@1200 RF: 0 ascorbic acid (vitamin C) 500 MG tablet 500 mg PO DAILY@1200 RF: 0 cholecalciferol (vitamin D3) 1,000 UNIT capsule 1,000 unit PO DAILY@1200 RF: 0 omega-3 fatty acids-fish oil 1 EACH capsule,delayed release(DR/EC) 1 cap PO BID RF: 0 aspirin 81 MG tablet,chewable 81 mg PO DAILY RF: 0 magnesium oxide 400 MG tablet 400 mg PO DAILY@1200 RF: 0 amlodipine 5 mg tablet 10 mg PO DAILY RF: 0 Held atenolol 50 MG tablet 50 mg PO BID RF: 0 Hold Instructions: Hold until told to resume by your Risk Tech. furosemide 40 mg tablet 40 mg PO QODAY RF: 0 Hold Instructions: Hold until told to resume by your Commercial Escrow Assistant. lisinopril 20 mg tablet 20 mg PO DAILY RF: 0 Hold Instructions: Hold until told to resume by your Commercial Escrow Assistant. Referrals / Follow Up: Kelsy Mensah MD [Primary Care Provider] - Within 2 Weeks Deonte Barfield MD [STAFF PHYSICIAN] - In 1 Week (Follow up within the next 1-2 weeks, or at earliest possible appointment. ) Lincoln Wells MD [STAFF PHYSICIAN] - In 1 Week (Follow up within the next 1-2 weeks, or at earliest possible appointment. ) Disposition Disposition (needs filled in before D/C Order can be placed): Home, Self Care Documented by User: Dr. Dipak Bales DO 07/21/21 13:01 Providers Date of Admission: 07/18/21 Reason For Visit: HYPERKALEMIA Medications at Discharge Home Medications glyburide 2.5 mg PO QODAY 08/26/15 metformin 500 mg PO TIDCM 08/26/15 ascorbic acid (vitamin C) 500 mg PO DAILY@1200 12/09/16 atenolol 50 mg PO BID 12/09/16 cholecalciferol (vitamin D3) 1,000 unit PO DAILY@1200 12/09/16 cyanocobalamin (vitamin B-12) 1,000 mcg PO DAILY@1200 12/09/16 multivitamin 1 ea PO DAILY@1200 12/09/16 omega-3 fatty acids-fish oil 1 cap PO BID 12/09/16 aspirin 81 mg PO DAILY 06/11/17 magnesium oxide 400 mg PO DAILY@1200 03/01/20 furosemide 40 mg PO QODAY 05/31/21 amlodipine 10 mg PO DAILY 07/18/21 lisinopril 20 mg PO DAILY 07/18/21 apixaban [Eliquis] 2.5 mg PO BID #60 tab 07/21/21 Hospital Course Operations None Procedures None Summary of Care Provided Minutes Spent on Discharge: 32 Hospital Course: Patient seen and examined independently. Data and vitals reviewed. I agree with the above note by the physician switchboard operator assistant. 1. Junctional bradycardia Resolved. No further events with correction of hyperkalemia Secondary to severe hyperkalemia Appears to be resolved at this time as patient appears to be normal sinus rhythm on telemetry Treat the underlying process, which would be the hyperkalemia Repeat EKG Cardiology input appreciated. No indication for pacemaker (which she did not want anyway) 2. Severe hyperkalemia Improved Not hemolyzed on the sample Patient received calcium, albuterol and IV insulin and dextrose Recheck potassium and if still high will give Kayexalate 3. Acute kidney injury FEUrea 2.4% Suspect prerenal as well as a component of ATN given the traumatic severity Renal US unremarkable High-output for ostomy. DW Dr. Geiger, EMY HCO3 gtt today and observe labs in AM. 4. Intractable nausea and vomiting resolved may have been due to uremia. Zofran as needed CT abd/pelvis unremarkable 5. afib rate-controlled monitor ongoing start apixaban Physical Exam Resp normal respiratory effort, no retractions, no use of accessory muscles and clear to auscultation bilaterally Cardio regular rate, regular rhythm, S1 normal heart sound and S2 normal heart sound GI normal to inspection, nondistended, normoactive bowel sounds, soft to palpation and non-tender Extremity normal to inspection ABG / Lab / Microbiology Data Result Diagrams: 07/20/21 04:44 07/21/21 03:52 Discharge Plan Admission Admit Date/Time: 07/18/21 12:37 Primary Reason for Your Visit: Bradycardia Attending Provider: Dipak Bales Primary Care Provider: Kelsy Mensah Consulting Providers: Lincoln Wells ; Deonte Barfield Discharge Orders/Prescriptions Prescriptions: New Eliquis 2.5 mg tablet 2.5 mg PO BID Qty: 60 RF: 0 Continued metformin 500 MG tablet 500 mg PO TIDCM RF: 0 glyburide 5 MG tablet 2.5 mg PO QODAY RF: 0 multivitamin 1 EACH tablet 1 ea PO DAILY@1200 RF: 0 cyanocobalamin (vitamin B-12) 1,000 MCG tablet 1,000 mcg PO DAILY@1200 RF: 0 ascorbic acid (vitamin C) 500 MG tablet 500 mg PO DAILY@1200 RF: 0 cholecalciferol (vitamin D3) 1,000 UNIT capsule 1,000 unit PO DAILY@1200 RF: 0 omega-3 fatty acids-fish oil 1 EACH capsule,delayed release(DR/EC) 1 cap PO BID RF: 0 aspirin 81 MG tablet,chewable 81 mg PO DAILY RF: 0 magnesium oxide 400 MG tablet 400 mg PO DAILY@1200 RF: 0 amlodipine 5 mg tablet 10 mg PO DAILY RF: 0 Held atenolol 50 MG tablet 50 mg PO BID RF: 0 Hold Instructions: Hold until told to resume by your Risk Tech. furosemide 40 mg tablet 40 mg PO QODAY RF: 0 Hold Instructions: Hold until told to resume by your Commercial Escrow Assistant. lisinopril 20 mg tablet 20 mg PO DAILY RF: 0 Hold Instructions: Hold until told to resume by your Commercial Escrow Assistant. Referrals / Follow Up: Kelsy Mensah MD [Primary Care Provider] - Within 2 Weeks Deonte Barfield MD [STAFF PHYSICIAN] - In 1 Week (Follow up within the next 1-2 weeks, or at earliest possible appointment. ) Lincoln Wells MD [STAFF PHYSICIAN] - In 1 Week (Follow up within the next 1-2 weeks, or at earliest possible appointment. ) Disposition Disposition (needs filled in before D/C Order can be placed): Home, Self Care Charges/Coding Visit Charges Inpatient E&M: 80119 Disch Hosp
== END 2021-07-21 13:46 | disposition home or self-care (01) | DRG 640 ==
LOC: ED 12:17 → PCU 07-19 08:41
PROVIDERS: Physician Assistant; Emergency Provider Emergency Medicine; PCP Internal Medicine
DX: E87.5 Hyperkalemia (principal); N17.0 Acute kidney failure with tubular necrosis; E11.42 Type 2 diabetes mellitus with diabetic polyneuropathy; E11.51 Type 2 diabetes mellitus with diabetic peripheral angiopathy without gangrene; I48.91 Unspecified atrial fibrillation; E11.22 Type 2 diabetes mellitus with diabetic chronic kidney disease; M06.9 Rheumatoid arthritis, unspecified; N18.32 Chronic kidney disease, stage 3b; I12.9 Hypertensive chronic kidney disease with stage 1 through stage 4 chronic kidney disease, or unspecified chronic kidney disease; I25.2 Old myocardial infarction; M19.90 Unspecified osteoarthritis, unspecified site; R00.1 Bradycardia, unspecified; I25.10 Atherosclerotic heart disease of native coronary artery without angina pectoris; E78.5 Hyperlipidemia, unspecified; E87.1 Hypo-osmolality and hyponatremia; Z87.19 Personal history of other diseases of the digestive system; Z87.442 Personal history of urinary calculi; Z79.84 Long term (current) use of oral hypoglycemic drugs; Z79.82 Long term (current) use of aspirin; Z79.899 Other long term (current) drug therapy; Z95.1 Presence of aortocoronary bypass graft; Z66 Do not resuscitate; R01.1 Cardiac murmur, unspecified
CPT/HCPCS: 36415; 71045; 74176; 76770; 80048; 80076; 81001; 82570; 82962; 83690; 84156; 84484; 85025; 87077; 87086; 87088; 87186; 93005; 93306; 94640; 94762; 97110; 97162; 97166; 97530; 97535; 97802; 99285; J7030; Q9957; A4216; J0610; J2405

== ENCOUNTER → 2021-07-26 | Outpatient (CLI) | payer OTHER, SELFPAY ==
[2021-07-26 11:28] LABS: Absolute Lymphocyte Count 3.22 X10^3/uL (0.83-4.51); Absolute Neutrophil Count 7.2 X10^3/uL (2.0-7.7); Basophil# 0.05 X10^3/uL; Basophil% 0.4 % (0-1); Eosinophil# 0.32 X10^3/uL; Eosinophils% 2.7 % (0-5); Hematocrit 33.9 % (37-47); Hemoglobin 11.8 g/dL (12.0-15.0); Lymphocyte # 3.22 X10^3/ul (0.83-4.51); Lymphocyte % 26.9 % (19-41); Mean Corp Hgb Conc 34.8 g/dL (32-36); Mean Corpuscular Hgb 29.6 pg (27.0-32.0); Mean Corpuscular Volume 85.2 fL (81-99); Mean Platelet Vol. 10.6 fl (6.2-12.0); Monocyte# 1.14 X10^3/uL; Monocyte% 9.5 % (0-10); NRBC Flagged by Analyzer 0 % (0-5); Neutrophil # 7.17 X10^3/uL (2.7-7.7); Platelet Count 226 K/mm3 (150-450); RBC Distribution Width CV 13.9 % (11.6-14.6); RBC Distribution Width SD 43.1 fl (35.1-43.9); Red Blood Count 3.98 M/mm3 (4.2-5.4)
== END | disposition home or self-care (01) ==
LOC: LABSPEC 11:09 → LAB 11:15
PROVIDERS: PCP Internal Medicine; Visit Provider Nurse Practitioner Gerontology
DX: R53.83 Other fatigue (principal)
CPT/HCPCS: 36415; 85025

== ENCOUNTER 2021-07-28 09:03 | Emergency (ER) | payer OTHER, SELFPAY ==
[2021-07-28 09:04] VITALS: BP 121/61; PULSE 43; RESP 18; TEMP 36.6; O2SAT 100; BMI 23.6
[2021-07-28] MEDS: 0.9% Normal Saline 1,000 ML 1000 ML IV (09:46)
[2021-07-28] MEDS: Ondansetron 4 MG/2 ML Vial IV (09:46)
[2021-07-28] MEDS: Morphine 4 MG/ML Syringe IV (09:46)
[2021-07-28 09:47] LABS: Absolute Lymphocyte Count 2.51 X10^3/uL (0.83-4.51); Absolute Neutrophil Count 5.6 X10^3/uL (2.0-7.7); Basophil# 0.03 X10^3/uL; Basophil% 0.3 % (0-1); Eosinophil# 0.16 X10^3/uL; Eosinophils% 1.7 % (0-5); Hematocrit 33.7 % (37-47); Hemoglobin 11.8 g/dL (12.0-15.0); Lymphocyte # 2.51 X10^3/ul (0.83-4.51); Lymphocyte % 27.1 % (19-41); Mean Corpuscular Hgb 29.4 pg (27.0-32.0); Mean Platelet Vol. 10.9 fl (6.2-12.0); Monocyte# 0.95 X10^3/uL; Monocyte% 10.3 % (0-10); NRBC Flagged by Analyzer 0 % (0-5); Neutrophil # 5.58 X10^3/uL (2.7-7.7); Neutrophil % 60.3 % (47-70); Platelet Count 203 K/mm3 (150-450); RBC Distribution Width SD 43.5 fl (35.1-43.9); Red Blood Count 4.01 M/mm3 (4.2-5.4); White Blood Count 9.3 K/mm3 (4.4-11.0)
--- NOTE | 2021-07-28 09:53 | EDS_ITS ---
HPI History of Present Illness Chief Complaint: Abn Labs Informant: patient and family Narrative Narrative: 8-year-old female brought in by family for nausea and abdominal discomfort. Patient describes her abdominal discomfort as burning abdominal pain associated with nausea. She was recently in the hospital with bradycardia atrial fibrillation and ALEISHA. Daughter states that they declined dialysis and pacemaker the last admission. They saw renal on Friday and it was recommended that because her kidneys are only functioning at 9% that she be brought to the hospital. Family states that they did not bring her to the hospital yesterday but brought her in today because they cannot have her laying around in pain. They are interested in hospice and tell me that hospice informed them that it would be at least a half a day before they could come out. The patient and her family are still not interested in dialysis and would like to know more about hospice/palliative care. [facility] Medical History Abdominal pain Arthritis Back pain Bilateral leg pain Breast lump in female Cardiology follow-up encounter Cataracts, bilateral CKD (chronic kidney disease) Colovaginal fistula Colovesical fistula Controlled type 2 diabetes mellitus with hyperglycemia Delayed wound healing Diabetes Dietary restriction Diverticulitis large intestine Diverticulosis Heart failure High blood pressure High cholesterol History of diverticulitis History of echocardiogram History of edema History of heart attack HLD (hyperlipidemia) Ileostomy in place Kidney stones Loss of hearing Non-smoker Open wound Osteoarthritis Peripheral arterial disease Rheumatoid arthritis Shortness of breath on exertion Type 2 diabetes mellitus with diabetic polyneuropathy Ulcer of right foot with necrosis of bone Ulcer of right lower extremity with muscle involvement without evidence of necrosis Unspecified protein-calorie malnutrition Wears glasses Home Medications metformin 500 mg PO TIDCM 08/26/15 [History Last Taken 07/17/21] ascorbic acid (vitamin C) 500 mg PO DAILY@1200 12/09/16 [History Last Taken 07/17/21] cholecalciferol (vitamin D3) 1,000 unit PO DAILY@1200 12/09/16 [History Last Taken 07/17/21] cyanocobalamin (vitamin B-12) 1,000 mcg PO DAILY@1200 12/09/16 [History Last Taken 07/17/21] multivitamin 1 ea PO DAILY@1200 12/09/16 [History Last Taken 07/17/21] omega-3 fatty acids-fish oil 1 cap PO BID 12/09/16 [History Last Taken 07/17/21] magnesium oxide 400 mg PO DAILY@1200 03/01/20 [History Last Taken 07/17/21] amlodipine 10 mg PO DAILY 07/18/21 [History Last Taken 07/17/21] apixaban [Eliquis] 2.5 mg PO BID #60 tab 07/21/21 [Rx Last Taken Unknown] glyburide 5 mg tablet 5 mg PO DAILY tab 07/26/21 [History Last Taken Unknown] ondansetron 4 mg PO Q6H PRN PRN #15 tab 07/28/21 [Rx Last Taken Unknown] oxycodone 5 mg PO Q6H PRN 5 Days #20 cap 07/28/21 [Rx Last Taken Unknown] Allergy/AdvReac Type Severity Reaction Status Date / Time adhesive Allergy Unknown Verified 07/28/21 09:07 bacitracin zinc Allergy Rash Verified 07/28/21 09:07 [From Neosporin ([id number])] metronidazole Allergy ALLERGY Verified 07/28/21 09:07 neomycin sulfate Allergy Rash Verified 07/28/21 09:07 [From Neosporin ([id number])] polymyxin B Allergy Rash Verified 07/28/21 09:07 [From Neosporin ([id number])] prednisolone acetate, Allergy ALLERGY Verified 07/28/21 09:07 micronized simvastatin Allergy ALLERGY Verified 07/28/21 09:07 tramadol [From Ultram] Allergy ALLERGY Verified 07/28/21 09:07 amoxicillin [From Augmentin] AdvReac Nausea/Vom/ Verified 07/28/21 09:07 Diarrhea atorvastatin calcium AdvReac Pain in Verified 07/28/21 09:07 [From Lipitor] joints clavulanic acid AdvReac Nausea/Vom/ Verified 07/28/21 09:07 [From Augmentin] Diarrhea fenofibrate nanocrystallized AdvReac Upset Verified 07/28/21 09:07 [From Tricor] Stomach flurbiprofen AdvReac Upset Verified 07/28/21 09:07 Stomach gemfibrozil AdvReac Upset Verified 07/28/21 09:07 Stomach glipizide [From Glucotrol] AdvReac Upset Verified 07/28/21 09:07 Stomach pravastatin AdvReac Pain in Verified 07/28/21 09:07 joints Family History Mother Diabetes Father Hypertension CVA (cerebral vascular accident) Brother Lung cancer Sister Breast cancer COPD (chronic obstructive pulmonary disease) Surgical History History of appendectomy History of cholecystectomy History of heart bypass surgery History of knee replacement History of partial colectomy (~05/2021) Hx of colonoscopy S/P CABG (coronary artery bypass graft) S/P hysterectomy Social History household members: family housing: house Smoking Status: Never smoker alcohol intake: current alcohol intake frequency: other substance use type: does not use additional social history: USES ASPIRIN ROS ROS ED Constitutional Constitutional ED: Denies chills or weight loss Eyes Eyes: Denies change in vision or diplopia ENT ENT ED: Denies ear pain, rhinorrhea or sore throat Cardiovascular Cardiovascular: Denies chest pain, orthopnea, palpitations or racing heartbeat Respiratory/Chest Respiratory/Chest: Denies cough, dyspnea or orthopnea Gastrointestinal Gastrointestinal: Reports abdominal pain, diarrhea, nausea and vomiting Genitourinary Genitourinary ED: Denies dysuria, hematuria or urinary frequency Musculoskeletal Musculoskeletal: Denies arthralgias or myalgias Integumentary Denies abscess or rash Neurologic Neurologic: Denies headache(s) or weakness Psychiatric Psychiatric: Denies anxiety, depression, suicidal ideation or suicidal thoughts Endocrine Endocrinology: Denies polydipsia, polyphagia or polyuria Allergic/Immunologic Allergic/Immunologic ED: Denies mouth swelling, tongue swelling or urticaria EXAM Physical Exam Const Vital Signs: 07/28/21 09:04 07/28/21 09:28 07/28/21 10:55 Temperature 98 F Temperature Source Temporal Pulse Rate 43 L 69 Respiratory Rate 18 14 Respiratory Effort Normal Respiratory Pattern Normal Blood Pressure 121/61 H 123/59 H Blood Pressure Mean 81 80 Pulse Ox 100 99 Oxygen Delivery Method Room Air Room Air Positive well nourished and well developed General Appearance ED: well developed HEENT Reports normocephalic, head/scalp atraumatic, TM's clear and moist mucous membranes Negative for trauma Tympanic Membrane ED: Yes TM's clear Eyes PERRL and EOMs intact bilaterally Neck no lymphadenopathy, supple and no JVD Resp normal respiratory effort and clear to auscultation bilaterally Cardio regular rate, regular rhythm and no murmurs GI normal to inspection, nondistended, normoactive bowel sounds and non-tender GI Narrative: Colostomy bag is present Palpation: soft Back/Spine no CVA tenderness and normal ROM Extremity normal to inspection General Extremety ED: Negative for edema General Extremity: Negative for edema Neuro oriented x3 and CN's II-XII intact bilaterally Sensorium / Orientation: alert Motor Exam: strength 5/5 throughout Psych mental status grossly normal Mood & Affect: Negative for depressed or tearful Skin no rashes or lesions noted and no wounds MDM MDM MDM Narrative Medical decision making narrative: Creatinine today is 3.96 with a BUN of 87. Patient received a dose of morphine and IV fluids and is resting comfortable. I spoke with hospice and made a referral. I will write for the patient to have pain and nausea medicine at home. Family understands the plan and is in agreement with it. Lab Data Attestation: I reviewed the patient's lab results. Labs: Laboratory Results - last 24 hr 07/28/21 07/28/21 09:20 09:20 WBC 9.3 RBC 4.01 L Hgb 11.8 L Hct 33.7 L MCV 84.0 MCH 29.4 MCHC 35.0 RDW Std Deviation 43.5 RDW Coeff of Monique 14.0 Plt Count 203 MPV 10.9 Immature Gran % (Auto) 0.300 Neut % (Auto) 60.3 Lymph % (Auto) 27.1 [place] % (Auto) 10.3 H Eos % (Auto) 1.7 Baso % (Auto) 0.3 Absolute Neuts (auto) 5.6 Absolute Lymphs (auto) 2.51 Nucleated RBC % 0 Sodium 121 L Potassium 5.6 H Chloride 89 L Carbon Dioxide 23.0 Anion Gap 9 BUN 87 H Creatinine 3.96 H Estim Creat Clear Calc 9.78 Est GFR (MDRD) Af Amer 14 L Est GFR (MDRD) Non-Af 12 L BUN/Creatinine Ratio 22.0 H Glucose 156 H Calcium 9.1 Total Bilirubin 0.70 AST 17 ALT 16 Alkaline Phosphatase 73 Total Protein 8.0 Albumin 3.3 Globulin 4.7 H Albumin/Globulin Ratio 0.7 L Discharge Plan Triage Chief Complaint: Abn Labs ED Provider: Harrison Colindres Dx/Rx/DC Orders Clinical Impression: Renal failure (ARF), acute on chronic, Type 2 diabetes mellitus with diabetic polyneuropathy, Abdominal pain Instructions: Starting Hospice Prescriptions: New oxycodone 5 mg capsule 5 mg PO Q6H PRN (Reason: pain) 5 Days Qty: 20 RF: 0 ondansetron [ondansetron] 4 MG tablet 4 mg PO Q6H PRN PRN (Reason: Nausea) Qty: 15 RF: 0 No Action metformin 500 MG tablet 500 mg PO TIDCM RF: 0 glyburide 5 mg tablet 5 mg PO DAILY RF: 0 multivitamin 1 EACH tablet 1 ea PO DAILY@1200 RF: 0 cyanocobalamin (vitamin B-12) 1,000 MCG tablet 1,000 mcg PO DAILY@1200 RF: 0 ascorbic acid (vitamin C) 500 MG tablet 500 mg PO DAILY@1200 RF: 0 cholecalciferol (vitamin D3) 1,000 UNIT capsule 1,000 unit PO DAILY@1200 RF: 0 omega-3 fatty acids-fish oil 1 EACH capsule,delayed release(DR/EC) 1 cap PO BID RF: 0 magnesium oxide 400 MG tablet 400 mg PO DAILY@1200 RF: 0 amlodipine 5 mg tablet 10 mg PO DAILY RF: 0 Eliquis 2.5 mg tablet 2.5 mg PO BID Qty: 60 RF: 0 Primary Care Provider: Kelsy Mensah Referrals: Kelsy Mensah MD [Primary Care Provider] - Disposition Disposition: Home, Self Care
[2021-07-28 10:02] LABS: ALB/GLOB Ratio 0.7 RATIO (0.9-2.4); AST(SGOT) 17 U/L (15-37); Alanine Aminotransfer ALT/SGPT 16 U/L (13-56); Albumin, Serum 3.3 g/dL (3.2-5.0); Alkaline Phosphatase 73 U/L (45-117); Anion Gap 9 (5-15); BUN 87 mg/dL (7-18); Calcium,Total 9.1 mg/dL (8.5-10.1); Chloride 89 mmol/L (98-107); Creatinine, Serum 3.96 mg/dL (0.55-1.02); EST Glomerular Filtration Rate 12 mL/min (>60); Est Glom Filt Rate - Afr Amer 14 mL/min (>60); Estimated Creatinine Clearance 9.78 ml/min; Globulin 4.7 g/dL (2.2-4.2); Glucose 156 mg/dL (74-106); Potassium 5.6 mmol/L (3.5-5.1); Sodium Level 121 mmol/L (136-145)
[2021-07-28 10:55] VITALS: BP 123/59; PULSE 69; RESP 14; O2SAT 99
[2021-07-28 12:14] VITALS: RESP 14
== END 2021-07-28 12:14 | disposition home or self-care (01) ==
PROVIDERS: Emergency Provider Emergency Medicine; PCP Internal Medicine; Visit Provider Emergency Medicine
DX: N17.9 Acute kidney failure, unspecified (principal); E11.51 Type 2 diabetes mellitus with diabetic peripheral angiopathy without gangrene; M06.9 Rheumatoid arthritis, unspecified; I13.0 Hypertensive heart and chronic kidney disease with heart failure and stage 1 through stage 4 chronic kidney disease, or unspecified chronic kidney disease; I50.9 Heart failure, unspecified; E11.22 Type 2 diabetes mellitus with diabetic chronic kidney disease; E11.42 Type 2 diabetes mellitus with diabetic polyneuropathy; N18.9 Chronic kidney disease, unspecified; M19.90 Unspecified osteoarthritis, unspecified site; H26.9 Unspecified cataract; E78.00 Pure hypercholesterolemia, unspecified; Z87.19 Personal history of other diseases of the digestive system; I25.2 Old myocardial infarction; Z87.442 Personal history of urinary calculi; Z79.899 Other long term (current) drug therapy; Z79.84 Long term (current) use of oral hypoglycemic drugs; Z79.01 Long term (current) use of anticoagulants; Z95.1 Presence of aortocoronary bypass graft
CPT/HCPCS: 80053; 85025; 96361; 96374; 96375; 99283; J7030; J2405

== ENCOUNTER → 2021-10-23 | Outpatient (CLI) | payer OTHER, SELFPAY ==
[2021-10-23 15:38] LABS: Cholesterol 170 mg/dL (200); High Density Lipoprotein 54 mg/dL; Magnesium 1.9 mg/dL (1.6-2.6); Triglycerides 108 mg/dL; Very Low Density Lipoprotein 22 mg/dL (5-40)
== END | disposition home or self-care (01) ==
LOC: LAB 14:37
PROVIDERS: PCP Internal Medicine; Visit Provider Internal Medicine
DX: E78.5 Hyperlipidemia, unspecified (principal); E11.22 Type 2 diabetes mellitus with diabetic chronic kidney disease; N18.32 Chronic kidney disease, stage 3b; E83.42 Hypomagnesemia; I12.9 Hypertensive chronic kidney disease with stage 1 through stage 4 chronic kidney disease, or unspecified chronic kidney disease
CPT/HCPCS: 36415; 80061; 83735

== ENCOUNTER → 2021-11-13 | Outpatient (CLI) | payer OTHER, SELFPAY ==
[2021-11-13 13:29] LABS: Absolute Lymphocyte Count 2.87 X10^3/uL (0.83-4.51); Basophil# 0.08 X10^3/uL; Basophil% 0.8 % (0-1); Eosinophil# 0.16 X10^3/uL; Eosinophils% 1.5 % (0-5); Hematocrit 35.3 % (37-47); Lymphocyte # 2.87 X10^3/ul (0.83-4.51); Lymphocyte % 27.7 % (19-41); Mean Corpuscular Hgb 30.3 pg (27.0-32.0); Mean Corpuscular Volume 89.1 fL (81-99); Mean Platelet Vol. 10.7 fl (6.2-12.0); Monocyte# 1.09 X10^3/uL; Monocyte% 10.5 % (0-10); NRBC Flagged by Analyzer 0 % (0-5); Neutrophil # 5.96 X10^3/uL (2.7-7.7); Neutrophil % 57.7 % (47-70); Platelet Count 165 K/mm3 (150-450); RBC Distribution Width CV 13.5 % (11.6-14.6); Red Blood Count 3.96 M/mm3 (4.2-5.4); White Blood Count 10.4 K/mm3 (4.4-11.0)
[2021-11-13 13:58] LABS: ALB/GLOB Ratio 0.7 RATIO (0.9-2.4); AST(SGOT) 28 U/L (15-37); Alanine Aminotransfer ALT/SGPT 30 U/L (13-56); Alkaline Phosphatase 107 U/L (45-117); Anion Gap 8 (5-15); BUN 33 mg/dL (7-18); BUN/Creat Ratio 20.2 RATIO (10-20); Calcium,Total 8.9 mg/dL (8.5-10.1); Chloride 105 mmol/L (98-107); Creatinine, Serum 1.63 mg/dL (0.55-1.02); EST Glomerular Filtration Rate 32 mL/min (>60); Est Glom Filt Rate - Afr Amer 39 mL/min (>60); Globulin 4.1 g/dL (2.2-4.2); Glucose 334 mg/dL (74-106); Potassium 4.6 mmol/L (3.5-5.1); Protein, Total 7.1 g/dL (6.4-8.2); Sodium Level 134 mmol/L (136-145)
[2021-11-13 14:54] LABS: Hemoglobin A1c 9.7 % (3.8-5.6)
== END | disposition home or self-care (01) ==
LOC: LAB 13:04
PROVIDERS: PCP Internal Medicine; Referring Provider Nurse Practitioner; Visit Provider Nurse Practitioner
DX: E11.22 Type 2 diabetes mellitus with diabetic chronic kidney disease (principal); N18.32 Chronic kidney disease, stage 3b; I12.9 Hypertensive chronic kidney disease with stage 1 through stage 4 chronic kidney disease, or unspecified chronic kidney disease; E78.5 Hyperlipidemia, unspecified
CPT/HCPCS: 36415; 80053; 83036; 85025

== ENCOUNTER 2022-07-04 12:55 | Emergency (ER) | payer OTHER, SELFPAY ==
[2022-07-04 12:56] VITALS: BP 165/92; PULSE 103; RESP 16; TEMP 36.3; O2SAT 100
[2022-07-04 13:07] VITALS: BP 196/97; PULSE 95; RESP 17; O2SAT 100
[2022-07-04 13:09] VITALS: BMI 29.8
--- NOTE | 2022-07-04 13:14 | RAD_ITS ---
STUDY: X-RAY CHEST REASON FOR EXAM: Female, 81 years old. chest pain TECHNIQUE: Single AP portable view of the chest. COMPARISON: 07/18/2021 FINDINGS: EKG leads overlie the chest Lungs are expanded with chronic interstitial changes, no superimposed acute pulmonary process. Sternal cerclage wires and vascular clips are present from a prior sternotomy and coronary artery bypass graft procedure (CABG). Normal mediastinum and pavel. Normal visualized pulmonary arteries. Normal visualized aortic arch and descending thoracic aorta. There are diffuse degenerative changes of the visualized thoracic spine. There is degenerative osteoarthritis of the bilateral shoulders. There is no demonstrated abnormality of the visualized soft tissue structures of the upper abdomen. RAD/Chest 1 View (Portable) IMPRESSION: Chronic interstitial changes, no superimposed acute pulmonary process Electronically Signed: Aubrey Brothers MD at 13:41 EDT ,
--- NOTE | 2022-07-04 13:14 | EKG12_ITS ---
Test Reason : PALPATATIONS Blood Pressure : / mmHG Vent. Rate : 097 BPM Atrial Rate : 000 BPM P-R Int : 000 ms QRS Dur : 084 ms QT Int : 362 ms P-R-T Axes : 000 063 125 degrees QTc Int : 459 ms Atrial fibrillation Septal infarct , age undetermined Abnormal ECG Confirmed by YENI LLOYD ([id number]), loan expeditor PRIYANKA VUONG ([id number]) on 07/09/2022 7:44:14 AM Referred By: DR. DOLAN Confirmed By:YENI LLOYD
[2022-07-04 13:28] VITALS: O2SAT 96
[2022-07-04 13:34] LABS: Absolute Lymphocyte Count 2.63 X10^3/uL (0.83-4.51); Absolute Neutrophil Count 6.7 X10^3/uL (2.0-7.7); Basophil# 0.08 X10^3/uL; Basophil% 0.8 % (0-1); Eosinophils% 1.9 % (0-5); Hematocrit 46.4 % (37-47); Hemoglobin 15.6 g/dL (12.0-15.0); Lymphocyte # 2.63 X10^3/ul (0.83-4.51); Lymphocyte % 24.9 % (19-41); Mean Corp Hgb Conc 33.6 g/dL (32-36); Mean Corpuscular Volume 89.2 fL (81-99); Mean Platelet Vol. 10.8 fl (6.2-12.0); Monocyte# 0.95 X10^3/uL; NRBC Flagged by Analyzer 0 % (0-5); Neutrophil # 6.65 X10^3/uL (2.7-7.7); Neutrophil % 62.8 % (47-70); Platelet Count 169 K/mm3 (150-450); RBC Distribution Width SD 42.5 fl (35.1-43.9); White Blood Count 10.6 K/mm3 (4.4-11.0)
--- NOTE | 2022-07-04 13:49 | EDS_ITS ---
HPI History of Present Illness Chief Complaint: Palpitations Detail of Chief Complaint: Sent in from primary care physician's office for new onset A-fib. Informant: patient and family Narrative Narrative: 81-year-old female history of diabetes and chronic kidney disease. Has a colostomy. Prior quadruple bypass 7 years ago. Today she was in her primary care physician's office just for a checkup and to get her medications refilled they realize she was in A-fib and sent her to the ER for further evaluation. She has no complaints. No chest pain or shortness of breath. Denies any recent illness or hospitalization. She did not even know she is having an irregular heartbeat. Prior Similar Symptoms: No Recent Illness/Hospitalization: No CVD Risk Factors: Positive for Diabetes PE Risk Factors: Negative for Recent Travel/Surgery, Recent Immobilization, Prior DVT or PE, Cancer or OCP + Smoking + >/=35 TAD Risk Factors: Negative for Marfan's Syndrome PFSH PFSH Medical History Abdominal pain Arthritis Back pain Bilateral leg pain Breast lump in female Cardiology follow-up encounter Cataracts, bilateral CKD (chronic kidney disease) Colovaginal fistula Colovesical fistula Controlled type 2 diabetes mellitus with hyperglycemia Delayed wound healing Diabetes Dietary restriction Diverticulitis large intestine Diverticulosis Heart failure High blood pressure High cholesterol History of diverticulitis History of echocardiogram History of edema History of heart attack HLD (hyperlipidemia) Ileostomy in place Kidney stones Loss of hearing Non-smoker Open wound Osteoarthritis Peripheral arterial disease Rheumatoid arthritis Shortness of breath on exertion Type 2 diabetes mellitus with diabetic polyneuropathy Ulcer of right foot with necrosis of bone Ulcer of right lower extremity with muscle involvement without evidence of necrosis Unspecified protein-calorie malnutrition Wears glasses Home Medications acetaminophen 650 mg rectal suppository 650 mg KS Q6H 10/15/21 [History Last Taken Unknown] insulin glargine 100 unit/mL (3 mL) subcutaneous pen (Lantus Solostar U-100 Insulin) 10 unit subcut QPM 10/15/21 [History Last Taken Unknown] glyburide 5 mg tablet 5 mg PO DAILY 07/04/22 [History Last Taken Unknown] Allergy/AdvReac Type Severity Reaction Status Date / Time adhesive Allergy Unknown Verified 07/04/22 12:58 bacitracin zinc Allergy Rash Verified 07/04/22 12:58 [From Neosporin ([id number])] metronidazole Allergy ALLERGY Verified 07/04/22 12:58 neomycin sulfate Allergy Rash Verified 07/04/22 12:58 [From Neosporin ([id number])] polymyxin B Allergy Rash Verified 07/04/22 12:58 [From Neosporin ([id number])] prednisolone acetate, Allergy ALLERGY Verified 07/04/22 12:58 micronized simvastatin Allergy ALLERGY Verified 07/04/22 12:58 tramadol [From Ultram] Allergy ALLERGY Verified 07/04/22 12:58 amoxicillin [From Augmentin] AdvReac Nausea/Vom/ Verified 07/04/22 12:58 Diarrhea atorvastatin calcium AdvReac Pain in Verified 07/04/22 12:58 [From Lipitor] joints clavulanic acid AdvReac Nausea/Vom/ Verified 07/04/22 12:58 [From Augmentin] Diarrhea fenofibrate nanocrystallized AdvReac Upset Verified 07/04/22 12:58 [From Tricor] Stomach flurbiprofen AdvReac Upset Verified 07/04/22 12:58 Stomach gemfibrozil AdvReac Upset Verified 07/04/22 12:58 Stomach glipizide [From Glucotrol] AdvReac Upset Verified 07/04/22 12:58 Stomach pravastatin AdvReac Pain in Verified 07/04/22 12:58 joints Family History Mother Diabetes Father Hypertension CVA (cerebral vascular accident) Brother Lung cancer Sister Breast cancer COPD (chronic obstructive pulmonary disease) Surgical History History of appendectomy History of cholecystectomy History of heart bypass surgery History of knee replacement History of partial colectomy (~05/2021) Hx of colonoscopy S/P CABG (coronary artery bypass graft) S/P hysterectomy Social History household members: family housing: house Smoking Status: Never smoker alcohol intake: current alcohol intake frequency: other substance use type: does not use additional social history: USES [employer] ROS ROS ED ROS Narrative Denies recent illness. Review of Systems ROS Unobtainable: Denies due to encephalopathy Constitutional Constitutional ED: Denies chills or fever(s) Eyes Eyes: Reports none ENT ENT ED: Denies ear pain Cardiovascular Cardiovascular: Denies chest pain, palpitations or racing heartbeat Respiratory/Chest Respiratory/Chest: Denies cough or dyspnea Gastrointestinal Gastrointestinal: Denies abdominal pain Genitourinary Genitourinary ED: Denies dysuria or hematuria Musculoskeletal Musculoskeletal: Denies arthralgias Integumentary Denies abscess Neurologic Neurologic: Denies headache(s) Psychiatric Psychiatric: Denies anxiety or depression Endocrine Endocrinology: Denies cold intolerance Hematologic/Lymphatic Hematologic/Lymphatic: Denies easy bleeding Allergic/Immunologic Allergic/Immunologic ED: Denies mouth swelling EXAM Physical Exam Narrative Exam Narrative: 81-year-old female no acute distress. Vital signs are stable she is afebrile she does not look septic or toxic. Sitting up in bed. Clinically looks well. Family members in the room. Pulse ox 100% on room air no signs hypoxia. H EENT exam unremarkable. Moist extremities. Neck nontender no JVD. No lymphadenopathy. Lungs clear to auscultation bilaterally. Heart irregular irregular rate about 97 no murmur. Chest wall nontender. Well-healed sternotomy scar from years ago. Abdomen soft nontender. Colostomy bag right lower quadrant. Nondistended. No peritoneal signs. Moving all 4 extremities. Calves are nontender without edema. Neurologically she is awake and alert. Answering questions following commands. Const Vital Signs: 07/04/22 12:56 07/04/22 13:07 07/04/22 13:10 Temperature 97.3 F L Temperature Source Temporal Pulse Rate 103 H 95 Respiratory Rate 16 17 Respiratory Effort Normal Blood Pressure 165/92 H 196/97 H Blood Pressure Mean 116 130 Pulse Ox 100 100 Oxygen Delivery Method Room Air Room Air 07/04/22 13:28 07/04/22 14:38 Temperature Temperature Source Pulse Rate 89 Respiratory Rate 16 Respiratory Effort Blood Pressure 193/95 H Blood Pressure Mean 127 Pulse Ox 96 99 Oxygen Delivery Method Room Air Room Air Positive well nourished and well developed; Negative for cachectic, contractures or unkempt General Appearance ED: well developed and NAD; Negative for unkempt, cachectic, contractures or pallor Nutritional Appearance: Negative for cachectic HEENT Reports moist mucous membranes normocephalic and atraumatic; Negative for trauma or tenderness Eyes PERRL and EOMs intact bilaterally General Eye ED: Negative for pale conjunctiva or scleral icterus Neck no lymphadenopathy, supple and no JVD General: Negative for tenderness Chest Wall inspection of chest normal and palpation of chest normal Chest: Negative for tenderness Resp normal respiratory effort and clear to auscultation bilaterally Effort and Inspection: Negative for respiratory distress Auscultation: Negative for rales, rhonchi or wheezes Cardio no murmurs; Negative for regular rate or regular rhythm Rhythm: abnormal rhythm GI normal to inspection, nondistended, normoactive bowel sounds, soft to palpation, non-tender, non-distended and no masses; Negative for hepatosplenomegaly Auscultation: Negative for hyperactive bowel sounds Palpation: Negative for splenomegaly, mass or other Back/Spine no CVA tenderness and no thoracic nor lumbar tenderness General Back: Negative for CVA tenderness Cervical Spine: Negative for cervical spine tenderness Extremity normal to inspection General Extremety ED: Negative for edema General Extremity: Negative for edema Neuro oriented x3 and CN's II-XII intact bilaterally Sensorium / Orientation: awake, alert, oriented to person, oriented to place and oriented to time; Negative for confused or lethargic Motor Exam: strength 5/5 throughout Psych mental status grossly normal Appearance: Negative for unkempt Attitude: No agitated Mood & Affect: Negative for depressed, anxious or tearful Skin no rashes or lesions noted and no wounds General Skin Exam: Negative for jaundice or pallor Rashes: No rashes noted Trauma: Negative for abrasion or laceration MDM MDM MDM Narrative Medical decision making narrative: [id number] today was in the doctor's office and they found that she was in new onset A-fib. She has had no symptoms. No complaints. No palpitations, chest pain or shortness of breath. We have no idea how long she has been in this. She does have a history of a prior quadruple bypass 7 years ago. They sent her in for evaluation. Clinically she looks well. She will undergo a cardiac work-up. Currently her rates in the 90s and controlled. Repeat exam patient is doing well at 2:32 PM. I have a primary care physician on page. I discussed the test results with patient and family. I spoke to her primary care physician Dr. Jean-Baptiste. Were not can start any new medications at this time. She will follow-up with her as an outpatient and/or cardiology as needed. Patient knows to return if feeling worse. She is stable her heart rates been in the 90s. History & Record Review Discussion w/independent historian: Patient and Family Lab Data Attestation: I reviewed the patient's lab results. Lab results narrative: CBC shows a white count of 10 H&H of 15 and 46. Platelets 169. Chest x-ray unremarkable. Chemistries are unremarkable. Gap of 8. BUN 25 creatinine 1.32. Glucose 279 and she has a history of diabetes. Troponin is normal at 12. TSH is normal at 2.3. Labs: Laboratory Results - last 24 hr 07/04/22 07/04/22 13:25 13:25 WBC 10.6 RBC 5.20 Hgb 15.6 H Hct 46.4 MCV 89.2 MCH 30.0 MCHC 33.6 RDW Std Deviation 42.5 RDW Coeff of Monique 13.0 Plt Count 169 MPV 10.8 Immature Gran % (Auto) 0.600 Neut % (Auto) 62.8 Lymph % (Auto) 24.9 [place] % (Auto) 9.0 Eos % (Auto) 1.9 Baso % (Auto) 0.8 Absolute Neuts (auto) 6.7 Absolute Lymphs (auto) 2.63 Nucleated RBC % 0 Sodium 135 L Potassium 3.6 Chloride 104 Carbon Dioxide 23.0 Anion Gap 8 BUN 25 H Creatinine 1.32 H Estim Creat Clear Calc 26.44 Est GFR (MDRD) Af Amer 50 L Est GFR (MDRD) Non-Af 41 L BUN/Creatinine Ratio 18.9 Glucose 279 H Calcium 9.3 Troponin I High Sens 12 TSH 2.30 Radiography Chest X-Ray - ED: 1 View, Read by ED Physician, Read by Radiologist, Normal, Heart, Lungs, Mediastinum, Bony Structures, No Acute Disease and Chronic Changes Diagnostic Testing: Clinical Impression(s) from Imaging Studies Chest X-Ray 07/04/22 13:14 IMPRESSION: Chronic interstitial changes, no superimposed acute pulmonary process Electronically Signed: Aubrey Brothers MD at 13:41 EDT , Chest x-ray, portable, single view interpreted both by myself and radiologist shows no acute abnormality. Rhythm Strip Rhythm Strip: A-fib Rate: 97 Ectopy: None EKG Initial EKG: Attestation: I personally reviewed and interpreted this EKG as follows: Interpretation: Atrial Fibrillation Comments: A-fib rate of 97 no acute signs of TN or ischemia. Discharge Plan Triage Chief Complaint: Palpitations ED Provider: Tha Lock Dx/Rx/DC Orders Clinical Impression: Atrial fibrillation, new onset, History of coronary artery disease, Hx of CABG, History of diabetes mellitus, History of chronic kidney disease Instructions: AFib Prescriptions: No Action acetaminophen 650 mg suppository 650 mg KS Q6H insulin glargine [Lantus Solostar U-100 Insulin] 100 unit/mL (3 mL) insulin pen 10 unit subcut QPM glyburide 5 mg Tablet 5 mg PO DAILY Primary Care Provider: Юлия Jean-Baptiste Referrals: Юлия Jean-Baptiste, DO [Primary Care Provider] - 1 Week Machelle Ramirez MD [Med Staff - Active Staff] - As soon as possible Activity Restrictions/Additional Instructions: Follow-up with your primary care physician and a solar mechanical engineer. You have new onset A-fib which is an irregular heartbeat. You may have had this for some time and did not know it. You may go in and out of this. They can decide if they want start you on any medication for it. Disposition Disposition: Home, Self Care
[2022-07-04 13:58] LABS: Anion Gap 8 (5-15); BUN 25 mg/dL (7-18); BUN/Creat Ratio 18.9 RATIO (10-20); Calcium,Total 9.3 mg/dL (8.5-10.1); Chloride 104 mmol/L (98-107); Creatinine, Serum 1.32 mg/dL (0.55-1.02); EST Glomerular Filtration Rate 41 mL/min (>60); Est Glom Filt Rate - Afr Amer 50 mL/min (>60); Estimated Creatinine Clearance 26.44 ml/min; Glucose 279 mg/dL (74-106); Potassium 3.6 mmol/L (3.5-5.1); Sodium Level 135 mmol/L (136-145); Troponin-I HS 12 pg/mL (3.0-54.0)
[2022-07-04 14:38] VITALS: BP 193/95; PULSE 89; RESP 16; O2SAT 99
== END 2022-07-04 15:41 | disposition home or self-care (01) ==
PROVIDERS: Emergency Provider Emergency Medicine; PCP Family Medicine; Visit Provider Emergency Medicine
DX: I48.91 Unspecified atrial fibrillation (principal); E11.51 Type 2 diabetes mellitus with diabetic peripheral angiopathy without gangrene; Z93.3 Colostomy status; I50.9 Heart failure, unspecified; E11.42 Type 2 diabetes mellitus with diabetic polyneuropathy; E11.22 Type 2 diabetes mellitus with diabetic chronic kidney disease; Z79.4 Long term (current) use of insulin; I25.10 Atherosclerotic heart disease of native coronary artery without angina pectoris; N18.9 Chronic kidney disease, unspecified; Z95.1 Presence of aortocoronary bypass graft; Z79.82 Long term (current) use of aspirin; Z79.899 Other long term (current) drug therapy
CPT/HCPCS: 71045; 80048; 84443; 84484; 85025; 93005; 99283; A4216

== ENCOUNTER 2022-08-11 13:24 | Inpatient (IN) | payer OTHER, SELFPAY ==
[2022-08-11] VITALS (10 sets, daily range): BP systolic 141–223; BP diastolic 71–138; PULSE 72–108; RESP 15–18; TEMP 36.3–36.6; O2SAT 95–100; BMI 29.4; BMI 29.7; BMI 26.0
--- NOTE | 2022-08-11 13:30 | EKG12_ITS ---
Test Reason : Blood Pressure : / mmHG Vent. Rate : 101 BPM Atrial Rate : 000 BPM P-R Int : 000 ms QRS Dur : 086 ms QT Int : 296 ms P-R-T Axes : 000 050 240 degrees QTc Int : 383 ms Atrial fibrillation with rapid ventricular response with premature ventricular or aberrantly conducte d complexes ST & T wave abnormality, consider inferior ischemia Abnormal ECG Confirmed by SARA HUTTON, PERCY ([id number]), silk folder PRIYNAKA VUONG ([id number]) on 08/12/2022 10:14:58 AM Referred By: [place] Confirmed By:PERCY RUIZ MD
--- NOTE | 2022-08-11 13:30 | CT_ITS ---
We are attempting to reach an attending provider to discuss findings. An addendum with communication details will be sent when the communication is complete. EXAM: CT HEAD WITHOUT INTRAVENOUS CONTRAST CLINICAL INDICATION: Neuro deficit, acute, stroke suspected TECHNIQUE: Multiple axial images were obtained of the head without intravenous contrast. This CT exam was performed using one or more of the following dose reduction techniques: automated exposure control, adjustment of the mA and/or kV according to patient size, and/or use of iterative reconstruction technique. COMPARISON: No relevant prior studies available. FINDINGS: BRAIN AND EXTRA-AXIAL SPACES: Normal. No intra- or extra-axial hemorrhage. No acute infarct. No intracranial mass or mass effect. There is preservation of the ocasio/white matter interface. Posterior fossa structures are unremarkable. Ventricles are appropriate for age. No hydrocephalus. Basal cisterns are patent. BONES/JOINTS: No suspicious lytic or blastic abnormality. SINUSES: No acute sinusitis. MASTOID AIR CELLS: Normal. Clear. ORBITS: Visualized globes, extraocular muscles, optic nerves and retrobulbar fat appear unremarkable. CT/STROKE Brain/Head without Cont IMPRESSION: 1. No acute intracranial abnormality. 2. Senescent changes. Aspect score 10 Electronically Signed: Jerrell Perez MD at 13:59 EDT ,
--- NOTE | 2022-08-11 13:30 | RAD_ITS ---
EXAM: XR CHEST, 1 VIEW CLINICAL INDICATION: Neuro deficit, acute, stroke suspected TECHNIQUE: Frontal view of the chest. COMPARISON: XR Chest dated 07/04/2022 FINDINGS: LUNGS AND PLEURAL SPACES: Normal. No consolidation or edema. No pneumothorax. No effusion. HEART: Normal heart size. MEDIASTINUM: No mediastinal or hilar mass. BONES/JOINTS: Sternotomy wires remain in place. RAD/Chest 1 View IMPRESSION: No acute cardiopulmonary abnormality. No interval change. Electronically Signed: Jerrell Perez MD at 14:53 EDT ,
--- NOTE | 2022-08-11 13:31 | CT_ITS ---
INDICATION: Neuro deficit, acute, stroke suspected EXAMINATION: CTA HEAD - CTA Head and Neck W/ Contrast Injection (and W/O Contrast Images if performed) TECHNIQUE: [place]/head CT angiogram protocol was performed following IV contrast. Routine carotid CT angiogram protocol was performed without and with IV contrast. NASCET criteria using the distal ICAs for comparison were used for evaluation of stenoses. 3D reconstructions were reviewed of the CT angiogram head and neck. A radiation dose optimization technique was used for this scan. IV Contrast dosage and agent: 100 cc [id number] COMPARISON: None. FINDINGS: --Anterior cerebral circulation: ACAs: No significant stenosis at the visualized segments. ACOM: Not identified. MCAs: Mild stenosis of the distal portion of the M1 segment of both MCAs without distal vessel occlusion. --Posterior cerebral circulation: PCOMs: Not present womens volleyball coach: Occlusion of the distal portion of the P1 segment of the right MASKING MACHINE FEEDER. Distal branches appear to fill via collaterals. BASILAR ARTERY: No significant stenosis. --Carotid and vertebral circulation: AORTIC ARCH AND BRANCHES: Normal anatomy, patent. RIGHT CCA: No occlusion, significant stenosis or dissection. RIGHT ICA: Prominent calcific plaquing along the proximal cervical portion of the right ICA with approximately 50% stenosis. Cavernous portion is densely calcified. LEFT CCA: No occlusion, significant stenosis or dissection. LEFT ICA: No occlusion, significant stenosis or dissection. Cavernous portion is densely calcified. RIGHT VERTEBRAL ARTERY: No occlusion, significant stenosis or dissection. LEFT VERTEBRAL ARTERY: No occlusion, significant stenosis or dissection. NECK SOFT TISSUES: Unremarkable. LUNG APICES: Clear. BONES: Unremarkable. CT/STROKE CTA Head AND Neck W/Con IMPRESSION: Occlusion of the right MASKING MACHINE FEEDER P1 segment. Noncritical stenoses of the distal M1 segment of both MCAs. No peripheral branch occlusion. Less than 70% stenosis of the proximal cervical portion of the right ICA. N.B. : The above Results were Read Back by Jerrell Perez MD to Dante Malhotra MD, and understanding confirmed on 08/11/2022 14:11:56 (ET). Electronically Signed: Jerrell Perez MD at 14:21 EDT ,
--- NOTE | 2022-08-11 13:31 | ED.VIS.STROK ---
HPI History of Present Illness Chief Complaint: Stroke Alert Informant: patient and family Onset/Context/Timing Onset: Today (929) Context: Gradual Onset Timing: Continuous Narrative Narrative: Patient presenting with stroke symptoms to triage with a family member, nurse and I together called a stroke alert. [facility] this morning at 930 she started having symptoms, she later estimates it was somewhere 930-10:00, she confirms that last known well definitely no earlier than 0915. She started having slurred speech, numbness in the left side of her lower face and lip, followed by numbness in her left arm and leg and weakness in the arm and leg. All of that persist since she has a headache as well. No history of this. She takes no blood thinners. No recent fall or injury. No recent illness. [facility] Medical History Abdominal pain Arthritis Back pain Bilateral leg pain Breast lump in female Cardiology follow-up encounter Cataracts, bilateral CKD (chronic kidney disease) Colovaginal fistula Colovesical fistula Controlled type 2 diabetes mellitus with hyperglycemia Delayed wound healing Diabetes Dietary restriction Diverticulitis large intestine Diverticulosis Heart failure High blood pressure High cholesterol History of diverticulitis History of echocardiogram History of edema History of heart attack HLD (hyperlipidemia) Ileostomy in place Kidney stones Loss of hearing Non-smoker Open wound Osteoarthritis Peripheral arterial disease Rheumatoid arthritis Shortness of breath on exertion Type 2 diabetes mellitus with diabetic polyneuropathy Ulcer of right foot with necrosis of bone Ulcer of right lower extremity with muscle involvement without evidence of necrosis Unspecified protein-calorie malnutrition Wears glasses Home Medications insulin glargine 100 unit/mL (3 mL) subcutaneous pen (Lantus Solostar U-100 Insulin) 12 unit subcut QPM 10/15/21 [History Last Taken Unknown] glyburide 5 mg tablet 2.5 mg PO DAILY 07/04/22 [History Last Taken Unknown] Allergy/AdvReac Type Severity Reaction Status Date / Time adhesive Allergy Unknown Verified 08/11/22 13:33 bacitracin zinc Allergy Rash Verified 08/11/22 13:33 [From Neosporin ([id number])] metronidazole Allergy ALLERGY Verified 08/11/22 13:33 neomycin sulfate Allergy Rash Verified 08/11/22 13:33 [From Neosporin ([id number])] polymyxin B Allergy Rash Verified 08/11/22 13:33 [From Neosporin ([id number])] prednisolone acetate, Allergy ALLERGY Verified 08/11/22 13:33 micronized simvastatin Allergy ALLERGY Verified 08/11/22 13:33 tramadol [From Ultram] Allergy ALLERGY Verified 08/11/22 13:33 amoxicillin [From Augmentin] AdvReac Nausea/Vom/ Verified 08/11/22 13:33 Diarrhea atorvastatin calcium AdvReac Pain in Verified 08/11/22 13:33 [From Lipitor] joints clavulanic acid AdvReac Nausea/Vom/ Verified 08/11/22 13:33 [From Augmentin] Diarrhea fenofibrate nanocrystallized AdvReac Upset Verified 08/11/22 13:33 [From Tricor] Stomach flurbiprofen AdvReac Upset Verified 08/11/22 13:33 Stomach gemfibrozil AdvReac Upset Verified 08/11/22 13:33 Stomach glipizide [From Glucotrol] AdvReac Upset Verified 08/11/22 13:33 Stomach pravastatin AdvReac Pain in Verified 08/11/22 13:33 joints Family History Mother Diabetes Father Hypertension CVA (cerebral vascular accident) Brother Lung cancer Sister Breast cancer COPD (chronic obstructive pulmonary disease) Surgical History History of appendectomy History of cholecystectomy History of heart bypass surgery History of knee replacement History of partial colectomy (~05/2021) Hx of colonoscopy S/P CABG (coronary artery bypass graft) S/P hysterectomy Social History household members: family housing: house Smoking Status: Never smoker alcohol intake: current alcohol intake frequency: other substance use type: does not use additional social history: USES ASPIRIN ROS ROS ED Constitutional Constitutional ED: Denies chills or fever(s) Eyes Eyes: Reports blurry vision; Denies change in vision or diplopia ENT ENT ED: Denies rhinorrhea or sore throat Cardiovascular Cardiovascular: Denies chest pain or palpitations Respiratory/Chest Respiratory/Chest: Denies cough or dyspnea Gastrointestinal Gastrointestinal: Denies abdominal pain, diarrhea, nausea or vomiting Genitourinary Genitourinary ED: Denies dysuria or hematuria Musculoskeletal Musculoskeletal: Denies back pain or neck pain Integumentary Denies abscess or rash Neurologic Neurologic: Reports abnormal speech, headache(s), paresthesias and weakness Psychiatric Psychiatric: Denies anxiety or suicidal thoughts EXAM Physical Exam Const Vital Signs: 08/11/22 13:33 08/11/22 13:43 08/11/22 13:59 Temperature 97.7 F L 97.7 F L Temperature Source Temporal Temporal Pulse Rate 96 96 Respiratory Rate 18 18 Blood Pressure 143/113 H 143/113 H Blood Pressure Mean 123 123 Pulse Ox 97 97 Oxygen Delivery Method Room Air Room Air Room Air 08/11/22 14:15 08/11/22 14:45 08/11/22 15:15 Temperature Temperature Source Pulse Rate 104 H 108 H 81 Respiratory Rate 17 17 15 Blood Pressure 223/138 H 217/125 H 179/112 H Blood Pressure Mean 166 155 134 Pulse Ox 98 100 100 Oxygen Delivery Method Room Air Room Air Room Air Positive well nourished and well developed General Appearance ED: well developed and NAD HEENT Reports moist mucous membranes normocephalic and atraumatic Eyes PERRL and EOMs intact bilaterally Neck full ROM and supple Resp normal respiratory effort and clear to auscultation bilaterally Cardio regular rate, regular rhythm and no murmurs GI non-tender and non-distended Auscultation: normoactive bowel sounds Palpation: soft Back/Spine no CVA tenderness General Back: other FROM Extremity normal to inspection General Extremety ED: Negative for edema, pulses abnormal or tenderness General Extremity: Negative for edema or pulses abnormal Neuro oriented x3 Sensorium / Orientation: awake and alert Psych mental status grossly normal Skin no rashes or lesions noted and no wounds NIHSS NIHSS Initial: 1a Level of Consciousness: 0 1b LOC Questions (Score 2 if aphasic/stupor): 0 1c LOC Commands (Only score 1st attempt): 0 2 Best Gaze (If aphasic, use reflexive mvmts.): 0 3 Visual: 0 4 Facial Palsy: 1 5 Motor Arm Right (UN = amputation/fusion): 0 5 Motor Arm Left: 0 6 Motor Leg Right: 0 6 Motor Leg Left: 3 7 Limb ataxia (Only + if out of proportion): 0 8 Sensory (Aphasia/stupor=0 or 1, coma=2): 1 9 Best Language: 1 10 Dysarthria (mute, coma=2, intubated=UN): 1 11 Extinction and Inattention (only scored if +): 0 Total Score: 7 MDM MDM MDM Narrative Medical decision making narrative: Stroke alert called from triage, patient went directly to CT, we placed an IV prior to obtain CTA simultaneously and she came back to the room. Her exam is unchanged. See the attached NIHSS. Her EKG appears to show atrial fibrillation, she did not mention that but looking in her EMR she does appear to have a history of that. She is not anticoagulated or on antiantiplatelet medicines. I discussed this with her and family, they states she was on an anticoagulant but they removed that and other medications about a year ago when her kidneys failed. Plain CT is reported to be negative, this was called to me by the radiologist at 1357, stroke neurology had not yet been diarrhea at this point. I am not comfortable initiating treatment with thrombolytics with 3 minutes left in the window. By the time I discussed with stroke neurology there are in agreement with that, and I also discussed with her the CT angiography results. She is suspicious that this indicates a P1 LVO that could be causing this ischemic stroke, and recommends giving aspirin, Plavix 300 mg, and transferring the patient emergently by helicopter to [facility]. I discussed this at length with the patient and her family including her healthcare POA. She does not want to go to [place], does not want to fly in a helicopter, and when offered if she wants to go there for perfusion scanning to review risks and benefits and/or if a procedure would be recommended, she states no she would not want to undergo thrombectomy at all even if recommended and wants to stay here for stroke care. They all understand the risks and benefits of all the decisions, we talked about these multiple options and they prefer to stay here. Discussed with [facility]. History & Record Review Discussion w/independent historian: Patient and Family Lab Data Attestation: I reviewed the patient's lab results. Labs: Laboratory Results - last 24 hr 08/11/22 08/11/22 08/11/22 13:28 13:40 13:40 WBC 10.5 RBC 5.57 H Hgb 16.5 H Hct 49.8 H MCV 89.4 MCH 29.6 MCHC 33.1 RDW Std Deviation 42.2 RDW Coeff of Monique 12.9 Plt Count 198 MPV 10.3 Immature Gran % (Auto) 0.600 Neut % (Auto) 80.9 H Lymph % (Auto) 12.9 L [place] % (Auto) 4.9 Eos % (Auto) 0.2 Baso % (Auto) 0.5 Absolute Neuts (auto) 8.5 H Absolute Lymphs (auto) 1.36 Nucleated RBC % 0 PT 13.6 INR 1.0 APTT 43.9 H Sodium Potassium Chloride Carbon Dioxide Anion Gap BUN Creatinine Estim Creat Clear Calc Est GFR (MDRD) Af Amer Est GFR (MDRD) Non-Af BUN/Creatinine Ratio Glucose Calcium Troponin I High Sens POC Glucose 335 H 08/11/22 13:40 WBC RBC Hgb Hct MCV MCH MCHC RDW Std Deviation RDW Coeff of Monique Plt Count MPV Immature Gran % (Auto) Neut % (Auto) Lymph % (Auto) [place] % (Auto) Eos % (Auto) Baso % (Auto) Absolute Neuts (auto) Absolute Lymphs (auto) Nucleated RBC % PT INR APTT Sodium 133 L Potassium 4.1 Chloride 99 Carbon Dioxide 25.0 Anion Gap 9 BUN 25 H Creatinine 1.43 H Estim Creat Clear Calc 24.40 Est GFR (MDRD) Af Amer 45 L Est GFR (MDRD) Non-Af 37 L BUN/Creatinine Ratio 17.5 Glucose 322 H Calcium 10.0 Troponin I High Sens 12 POC Glucose Radiography Chest X-Ray - ED: 1 View, Read by ED Physician, No Acute Disease and No Infiltrates Diagnostic Testing: Clinical Impression(s) from Imaging Studies Brain CT 08/11/22 13:30 IMPRESSION: 1. No acute intracranial abnormality. 2. Senescent changes. Aspect score 10 Electronically Signed: Jerrell Perez MD at 13:59 EDT , ADDENDUM: 08/11/22 [id number] IMPRESSION: 1. No acute intracranial abnormality. 2. Senescent changes. Aspect score 10 N.B. : The above Results were Read Back by Jerrell Perez MD to Roscoe Howell MD, and understanding confirmed on 08/11/2022 14:00:44 (ET). Electronically Signed: Jerrell Perez MD at 13:59 EDT , Chest X-Ray 08/11/22 13:30 IMPRESSION: No acute cardiopulmonary abnormality. No interval change. Electronically Signed: Jerrell Perez MD at 14:53 EDT , Head/Neck CTA 08/11/22 13:31 IMPRESSION: Occlusion of the right FLY WINDER P1 segment. Noncritical stenoses of the distal M1 segment of both MCAs. No peripheral branch occlusion. Less than 70% stenosis of the proximal cervical portion of the right ICA. N.B. : The above Results were Read Back by Jerrell Perez MD to Dante Malhotra MD, and understanding confirmed on 08/11/2022 14:11:56 (ET). Electronically Signed: Jerrell Perez MD at 14:21 EDT , ADDENDUM: 08/11/22 1428 IMPRESSION: Occlusion of the right FLY WINDER P1 segment. Noncritical stenoses of the distal M1 segment of both MCAs. No peripheral branch occlusion. Less than 70% stenosis of the proximal cervical portion of the right ICA. N.B. : The above Results were Read Back by Jerrell Perez MD to Dante Malhotra MD, and understanding confirmed on 08/11/2022 14:11:56 (ET). Electronically Signed: Jerrell Perez MD at 14:21 EDT , My interpretation of the CT agrees with that of the radiologist. Rhythm Strip Rhythm Strip: A-fib Rate: 100 Ectopy: None EKG Initial EKG: Attestation: I personally reviewed and interpreted this EKG as follows: Interpretation: No Acute Injury Pattern, Atrial Fibrillation and Non-Specific ST Changes Prior EKG tracings: available for review Prior: Unchanged Management Discussion w/another healthcare provider: Hospitalist, Crematorium Operator and Radiologist Stroke Documentation Questions Stroke Team Activated: Yes Was Patient considered for Endovascular Intervention?: Yes-CTA +,PT transferred for further eval of endovascular intervention IV Thrombolytic Administered: No (Outside window of 4.5-hour) Critical Care Time Critical Care Time: Yes Critical care time (excluding procedures): 30-74 minutes (35 min), Including time spent:, Discussing w/Patient &/or Family/Access Service Representative, Discussing w/Consultants, Arranging Admission or Transfer and Performing Direct Patient Care at Bedside Discharge Plan Dx/Rx/DC Orders Clinical Impression: Acute ischemic stroke, Chronic atrial fibrillation Disposition Disposition: Acute Care Hospital [facility] Discharge Date/Time: 08/11/22 15:35
[2022-08-11 13:47] LABS: Absolute Lymphocyte Count 1.36 X10^3/uL (0.83-4.51); Absolute Neutrophil Count 8.5 X10^3/uL (2.0-7.7); Basophil# 0.05 X10^3/uL; Basophil% 0.5 % (0-1); Eosinophil# 0.02 X10^3/uL; Eosinophils% 0.2 % (0-5); Hematocrit 49.8 % (37-47); Hemoglobin 16.5 g/dL (12.0-15.0); Lymphocyte # 1.36 X10^3/ul (0.83-4.51); Lymphocyte % 12.9 % (19-41); Mean Corp Hgb Conc 33.1 g/dL (32-36); Mean Corpuscular Hgb 29.6 pg (27.0-32.0); Mean Corpuscular Volume 89.4 fL (81-99); Mean Platelet Vol. 10.3 fl (6.2-12.0); Monocyte# 0.52 X10^3/uL; Monocyte% 4.9 % (0-10); NRBC Flagged by Analyzer 0 % (0-5); Neutrophil # 8.52 X10^3/uL (2.7-7.7); Neutrophil % 80.9 % (47-70); Platelet Count 198 K/mm3 (150-450); RBC Distribution Width CV 12.9 % (11.6-14.6); RBC Distribution Width SD 42.2 fl (35.1-43.9); Red Blood Count 5.57 M/mm3 (4.2-5.4); White Blood Count 10.5 K/mm3 (4.4-11.0)
[2022-08-11 13:51] LABS: Bedside Glucose 335 mg/dL (74-106)
[2022-08-11 13:56] LABS: Prothrombin Time (Protime)PT. 13.6 SECONDS (11.7-14.9)
[2022-08-11 13:57] LABS: Partial Thromboplast Time 43.9 Seconds (24.1-36.2)
[2022-08-11 14:04] LABS: Anion Gap 9 (5-15); BUN 25 mg/dL (7-18); BUN/Creat Ratio 17.5 RATIO (10-20); Chloride 99 mmol/L (98-107); Creatinine, Serum 1.43 mg/dL (0.55-1.02); EST Glomerular Filtration Rate 37 mL/min (>60); Est Glom Filt Rate - Afr Amer 45 mL/min (>60); Glucose 322 mg/dL (74-106); Potassium 4.1 mmol/L (3.5-5.1); Sodium Level 133 mmol/L (136-145); Troponin-I HS 12 pg/mL (3.0-54.0)
[2022-08-11] MEDS: Labetalol (Prefilled) 20 MG/4 ML IV (15:05)
[2022-08-11] MEDS: Clopidogrel Bisulfate 300 MG Tablet PO (15:23)
[2022-08-11] MEDS: Aspirin 81 MG TAB.CHEW 324 MG PO (15:23)
--- NOTE | 2022-08-11 15:33 | HP.PCM.HOS_ITS ---
[facility] - General General Date of Admission: 08/11/22 Date of Service: 08/11/22 Chief Complaint: left sided weakness. HPI Narrative DARREN SANDOVAL, is a 81 F who presents with left sided weakness. Started around 0930. She didn't let family know until after lunch. She was then sent to the ED and underwent a CVA work up. CTA of the head and neck showed an occlusion of the right IV RN P1 segment. By the time it was determined that patient had a CVA, she had 3 minutes left in her tenecteplase window, but given her HTN and multiple medical comorbidities, it was not administered in ED. [facility] teleneurology recommended transfer for evaluation of thrombectomy. Patient and family declined transfer. Patient has been hospice about 1 year ago, but overall got better and is now involved in palliative care. [facility] Medical History Abdominal pain Arthritis Back pain Bilateral leg pain Breast lump in female Cardiology follow-up encounter Cataracts, bilateral CKD (chronic kidney disease) Colovaginal fistula Colovesical fistula Controlled type 2 diabetes mellitus with hyperglycemia Delayed wound healing Diabetes Dietary restriction Diverticulitis large intestine Diverticulosis Heart failure High blood pressure High cholesterol History of diverticulitis History of echocardiogram History of edema History of heart attack HLD (hyperlipidemia) Ileostomy in place Kidney stones Loss of hearing Non-smoker Open wound Osteoarthritis Peripheral arterial disease Rheumatoid arthritis Shortness of breath on exertion Type 2 diabetes mellitus with diabetic polyneuropathy Ulcer of right foot with necrosis of bone Ulcer of right lower extremity with muscle involvement without evidence of necrosis Unspecified protein-calorie malnutrition Wears glasses Home Medications insulin glargine 100 unit/mL (3 mL) subcutaneous pen (Lantus Solostar U-100 Insulin) 12 unit subcut QPM 10/15/21 [History Last Taken Unknown] glyburide 5 mg tablet 2.5 mg PO DAILY 07/04/22 [History Last Taken Unknown] Allergy/AdvReac Type Severity Reaction Status Date / Time adhesive Allergy Unknown Verified 08/11/22 13:33 bacitracin zinc Allergy Rash Verified 08/11/22 13:33 [From Neosporin ([id number])] metronidazole Allergy ALLERGY Verified 08/11/22 13:33 neomycin sulfate Allergy Rash Verified 08/11/22 13:33 [From Neosporin ([id number])] polymyxin B Allergy Rash Verified 08/11/22 13:33 [From Neosporin ([id number])] prednisolone acetate, Allergy ALLERGY Verified 08/11/22 13:33 micronized simvastatin Allergy ALLERGY Verified 08/11/22 13:33 tramadol [From Ultram] Allergy ALLERGY Verified 08/11/22 13:33 amoxicillin [From Augmentin] AdvReac Nausea/Vom/ Verified 08/11/22 13:33 Diarrhea atorvastatin calcium AdvReac Pain in Verified 08/11/22 13:33 [From Lipitor] joints clavulanic acid AdvReac Nausea/Vom/ Verified 08/11/22 13:33 [From Augmentin] Diarrhea fenofibrate nanocrystallized AdvReac Upset Verified 08/11/22 13:33 [From Tricor] Stomach flurbiprofen AdvReac Upset Verified 08/11/22 13:33 Stomach gemfibrozil AdvReac Upset Verified 08/11/22 13:33 Stomach glipizide [From Glucotrol] AdvReac Upset Verified 08/11/22 13:33 Stomach pravastatin AdvReac Pain in Verified 08/11/22 13:33 joints Family History Mother Diabetes Father Hypertension CVA (cerebral vascular accident) Brother Lung cancer Sister Breast cancer COPD (chronic obstructive pulmonary disease) Surgical History History of appendectomy History of cholecystectomy History of heart bypass surgery History of knee replacement History of partial colectomy (~05/2021) Hx of colonoscopy S/P CABG (coronary artery bypass graft) S/P hysterectomy Social History household members: family housing: house Smoking Status: Never smoker alcohol intake: current alcohol intake frequency: other substance use type: does not use additional social history: USES ASPIRIN ROS ROS Narrative Has a colostomy in right lower quadrant and from prior abdominal surgery does have some leaking wounds. Headache. No blurred vision. All review of systems were negative except as mentioned above in the history of present illness and the other review of systems. Vital Signs Vital Signs Vital Signs: 08/11/22 13:33 08/11/22 13:43 08/11/22 13:59 Temperature 36.5 C L 36.5 C L Temperature Source Temporal Temporal Pulse Rate 96 96 Respiratory Rate 18 18 Blood Pressure 143/113 H 143/113 H Blood Pressure Mean 123 123 Pulse Ox 97 97 Oxygen Delivery Method Room Air Room Air Room Air 08/11/22 14:15 08/11/22 14:45 Temperature Temperature Source Pulse Rate 104 H 108 H Respiratory Rate 17 17 Blood Pressure 223/138 H 217/125 H Blood Pressure Mean 166 155 Pulse Ox 98 100 Oxygen Delivery Method Room Air Room Air Weight Weight: 73.7 kg Body Mass Index (BMI) 29.7 Physical Exam Const alert and no apparent distress HEENT normocephalic, head/scalp atraumatic, hearing grossly normal bilaterally and moist oral mucous membranes Eyes PERRL Neck no lymphadenopathy Resp normal respiratory effort, no retractions, no use of accessory muscles and clear to auscultation bilaterally Cardio regular rate, regular rhythm, S1 normal heart sound and S2 normal heart sound GI normal to inspection, nondistended, normoactive bowel sounds, soft to palpation, non-tender and non-distended GI Narrative: Colostomy right lower quadrant. Lower abdominal wound with superficial ulceration. Does have another superficial ulceration on her suprapubic region. Extremity normal to inspection, full ROM and no clubbing, cyanosis or edema Extremity Narrative: Bilateral resection of great toes. Does have chronic changes to her distal fingers on both hands. Neuro oriented x3 and CN's II-XII intact bilaterally Neuro Narrative: Mo strength 5-5 in right upper and right lower extremity. 4-5 in the left upper and left lower extremity. Sensorium / Orientation: awake and alert Psych affect normal Results Lab / Micro Data Attestation: I reviewed the patient's lab results. Result Diagrams: 08/11/22 13:40 08/11/22 13:40 Labs: Laboratory Results - last 24 hr 08/11/22 13:28: POC Glucose 335 H 08/11/22 13:40: WBC 10.5, RBC 5.57 H, Hgb 16.5 H, Hct 49.8 H, MCV 89.4, MCH 29.6, MCHC 33.1, RDW Std Deviation 42.2, RDW Coeff of Monique 12.9, Plt Count 198, MPV 10.3, Immature Gran % (Auto) 0.600, Neut % (Auto) 80.9 H, Lymph % (Auto) 12.9 L, [place] % (Auto) 4.9, Eos % (Auto) 0.2, Baso % (Auto) 0.5, Absolute Neuts (auto) 8.5 H, Absolute Lymphs (auto) 1.36, Nucleated RBC % 0 08/11/22 13:40: PT 13.6, INR 1.0, APTT 43.9 H 08/11/22 13:40: Sodium 133 L, Potassium 4.1, Chloride 99, Carbon Dioxide 25.0, Anion Gap 9, BUN 25 H, Creatinine 1.43 H, Estim Creat Clear Calc 24.40, Est GFR (MDRD) Af Amer 45 L, Est GFR (MDRD) Non-Af 37 L, BUN/Creatinine Ratio 17.5, Glucose 322 H, Calcium 10.0, Troponin I High Sens 12 Rhythm Strip Rhythm Strip: A-fib Rate: 100 Ectopy: None EKG Initial EKG: Attestation: I personally reviewed and interpreted this EKG as follows: Prior EKG tracings: available for review EKG Rhythm Intrepretation: Atrial Fibrillation Radiology Impression Brain CT 08/11/22 13:30 IMPRESSION: 1. No acute intracranial abnormality. 2. Senescent changes. Aspect score 10 Electronically Signed: Jerrell Perez MD at 13:59 EDT Reading Location ID and State: [facility] / [place] Tel , Service support , ADDENDUM: 08/11/22 1407 IMPRESSION: 1. No acute intracranial abnormality. 2. Senescent changes. Aspect score 10 N.B. : The above Results were Read Back by Jerrell Perez MD to Roscoe Howell MD, and understanding confirmed on 08/11/2022 14:00:44 (ET). Electronically Signed: Jerrell Perez MD at 13:59 EDT , Chest X-Ray 08/11/22 13:30 IMPRESSION: No acute cardiopulmonary abnormality. No interval change. Electronically Signed: Jerrell Perez MD at 14:53 EDT , Head/Neck CTA 08/11/22 13:31 IMPRESSION: Occlusion of the right IV RN P1 segment. Noncritical stenoses of the distal M1 segment of both MCAs. No peripheral branch occlusion. Less than 70% stenosis of the proximal cervical portion of the right ICA. N.B. : The above Results were Read Back by Jerrell Perez MD to Dante Malhotra MD, and understanding confirmed on 08/11/2022 14:11:56 (ET). Electronically Signed: Jerrell Perez MD at 14:21 EDT , ADDENDUM: 08/11/22 1428 IMPRESSION: Occlusion of the right IV RN P1 segment. Noncritical stenoses of the distal M1 segment of both MCAs. No peripheral branch occlusion. Less than 70% stenosis of the proximal cervical portion of the right ICA. N.B. : The above Results were Read Back by Jerrell Perez MD to Dante Malhotra MD, and understanding confirmed on 08/11/2022 14:11:56 (ET). Electronically Signed: Jerrell Perez MD at 14:21 EDT , Assessment & Plan Assessment/Plan (1) Acute ischemic stroke: PLAN: Onset was at 0930 but did not let family know until few hours later. Patient did not receive tenecteplase as she was nearly out the window and her blood pressure was not optimized at that time. Patient and family declining t ransfer to [facility] for evaluation for thrombectomy. They decided that because of the patient's overall fair performance status and she was just recently in hospice about a year ago but did overall get better. They understand that that could be more definitive treatment than what we would be able to provide here. [place] [facility] did recommend loading with clopidogrel and giving her aspirin. Patient does have known history of atrial fibrillation but had been taken off all her medications at some point. Unclear if that was done while she was in hospice and just not resumed. Plan for now: * MRI of the brain * Echocardiogram * lipid panel * Physical, occupational and speech therapy * Continue with aspirin and clopidogrel * After testing is completed would recommend consulting [facility] (2) Hypertensive urgency: PLAN: This may be due to the patient's stroke For the next 24 hours, will allow permissive hypertension PLAN: Plan Chronic conditions * Atrial fibrillation: Patient had been taken off anticoagulation at some point and not resumed. Given the stroke, will not resume at this time. * Diabetes mellitus type 2: Insulin-dependent. Continue with glargine. Start sliding scale insulin. Check an A1c * Chronic draining abdominal wounds: Family has been dressing this at home. We will consult the wound nurse. * Chronic kidney disease stage IIIb. Appears to be stable. Monitor. * Coronary artery disease status post CABG: Currently stable * Rheumatoid arthritis: Patient has chronic changes on her hands. Unclear patient has some underlying Raynaud's. VTE prophylaxis: SCDs for now. CODE STATUS: Addressed with the patient. Patient wished to be DNR Comfort Care arrest with intubation. Charges/Coding Visit Charges Inpatient E&M: 77649 Init Hosp L3
[2022-08-11 16:08] LABS: Troponin-I HS 23 pg/mL (3.0-54.0)
--- NOTE | 2022-08-11 16:30 | ECHOD_ITS ---
Reason For Study: TIA/CVA Procedure This was a 2D Doppler, Color Flow transthoracic echocardiogram. Exam performed in department. Left Ventricle Normal LV size. Left ventricular systolic function is normal. The estimated ejection fraction is 55 %. No regional wall motion abnormalities noted. Right Ventricle Normal RV size. Normal systolic function. Atria The left atrium is mildly enlarged. Normal right atrium. Bubble contrast study negative for right to left interatrial shunt. Mitral Valve There is mild to moderate mitral annular calcification. Trivial eccentric mitral valve insufficiency. Tricuspid Valve Normal tricuspid valve. Mild tricuspid valve insufficiency. Pulmonic Valve Normal pulmonic valve. Pericardium/Pleural No pericardial effusion. Medication Performed a rapid injection of agitated mix of 9 cc saline and 1cc air to assess for atrial septal defect. MMode/2D Measurements & Calculations LVOT diam: 2.0 cm Ao root diam: 3.4 cm LAV(MOD-bp): 75.8 ml LVOT area: 3.0 cm2 LAV(MOD-bp) Indexed: 44.8 ml/m2 LAV(MOD-sp2): 57.2 ml LAV(MOD-sp4): 85.1 ml LVAd ap4: 17.4 cm2 SV(MOD-sp4): 20.0 ml SV(sp4-el): 20.1 ml LVLd ap4: 6.7 cm EDV(MOD-sp4): 38.5 ml EDV(sp4-el): 38.6 ml LVAs ap4: 11.6 cm2 LVLs ap4: 6.2 cm ESV(MOD-sp4): 18.5 ml ESV(sp4-el): 18.5 ml EF(MOD-sp4): 51.9 % EF(sp4-el): 52.0 % LA A4 area: 25.1 cm2 RA A4 area: 14.7 cm2 Doppler Measurements & Calculations MV E max melissa: 124.0 cm/sec Ao V2 max: 227.4 cm/sec LV V1 max: 175.8 cm/sec Ao max P.1 mmHg LV V1 max P.4 mmHg Ao V2 mean: 163.2 cm/sec LV V1 mean P.1 mmHg Ao mean P.2 mmHg LV V1 mean: 125.7 cm/sec Ao V2 VTI: 53.7 cm LV V1 VTI: 45.3 cm AV (velocity ratio): 0.84 SANA(I,D): 2.6 cm2 SANA(V,D): 2.3 cm2 MR max melissa: 434.6 cm/sec SV(LVOT): 137.4 ml MR max P.6 mmHg ECHO/Echo Complete Interpretation Summary Normal LV size. Left ventricular systolic function is normal. The estimated ejection fraction is 55 %. The left atrium is mildly enlarged. Bubble contrast study negative for right to left interatrial shunt. Ordering Physician: Dipak Bales Referring Physician: OREN PRINGLE Performed By: Ambika Werner RCS
[2022-08-11] MEDS: 0.9% Normal Saline 1,000 ML 150 ML IV (16:51)
[2022-08-11] MEDS: Insulin Lispro 100 UNIT/ML INSULN.PEN SC (17:11)
[2022-08-11 17:26] LABS: Bedside Glucose 271 mg/dL (74-106)
[2022-08-11] MEDS: Acetaminophen 325 MG Tablet 650 MG PO (17:44)
[2022-08-11] MEDS: Insulin Glargine-YFGN 100 UNIT/ML Pen 12 UNIT SC (20:23)
[2022-08-11 21:40] LABS: Bedside Glucose 299 mg/dL (74-106)
[2022-08-12 03:50] VITALS: BP 193/98; PULSE 73; RESP 16; TEMP 36.5; O2SAT 99
[2022-08-12 07:02] LABS: Anion Gap 7 (5-15); BUN 25 mg/dL (7-18); BUN/Creat Ratio 19.5 RATIO (10-20); Chloride 108 mmol/L (98-107); Cholesterol 156 mg/dL (200); Creatinine, Serum 1.28 mg/dL (0.55-1.02); EST Glomerular Filtration Rate 43 mL/min (>60); Est Glom Filt Rate - Afr Amer 51 mL/min (>60); Estimated Creatinine Clearance 28.51 ml/min; Glucose 212 mg/dL (74-106); High Density Lipoprotein 54 mg/dL; Potassium 3.6 mmol/L (3.5-5.1); Sodium Level 139 mmol/L (136-145); Triglycerides 78 mg/dL; Very Low Density Lipoprotein 16 mg/dL (5-40)
[2022-08-12 07:11] LABS: Bedside Glucose 143 mg/dL (74-106)
--- NOTE | 2022-08-12 07:34 | PN.HOSP_ITS ---
Reason for Visit Reason for Visit: Diagnoses Hypertensive urgency (08/11/22) Cerebral infarction, unspecified (08/11/22) Subjective Subjective Feeling well. Still with left sided weakness. Objective Data Objective Data Vital Signs: Vital Signs Temp Pulse Resp BP Pulse Ox O2 Del Method 36.5 C L 73 16 193/98 H 99 Room Air 08/12/22 03:50 08/12/22 03:50 08/12/22 03:50 08/12/22 03:50 08/12/22 03:50 08/12/22 03:50 Oxygen Delivery Method Room Air Weight: 66.633 kg Body Mass Index (BMI) 26.0 Intake & Output: Intake and Output for Last 24 Hours 08/10/22 08/11/22 08/12/22 23:59 23:59 23:59 Intake Total 1380 / 1380 Output Total 1175 / 1175 675 / 675 Balance 205 / 205 -675 / -675 Lab / Micro Data Result Diagrams: 08/11/22 13:40 08/12/22 05:30 Labs: Laboratory Results - last 24 hr 08/11/22 13:28: POC Glucose 335 H 08/11/22 13:40: WBC 10.5, RBC 5.57 H, Hgb 16.5 H, Hct 49.8 H, MCV 89.4, MCH 29.6, MCHC 33.1, RDW Std Deviation 42.2, RDW Coeff of Monique 12.9, Plt Count 198, MPV 10.3, Immature Gran % (Auto) 0.600, Neut % (Auto) 80.9 H, Lymph % (Auto) 12.9 L, Fannin % (Auto) 4.9, Eos % (Auto) 0.2, Baso % (Auto) 0.5, Absolute Neuts (auto) 8.5 H, Absolute Lymphs (auto) 1.36, Nucleated RBC % 0 08/11/22 13:40: PT 13.6, INR 1.0, APTT 43.9 H 08/11/22 13:40: Sodium 133 L, Potassium 4.1, Chloride 99, Carbon Dioxide 25.0, Anion Gap 9, BUN 25 H, Creatinine 1.43 H, Estim Creat Clear Calc 24.40, Est GFR (MDRD) Af Amer 45 L, Est GFR (MDRD) Non-Af 37 L, BUN/Creatinine Ratio 17.5, Glucose 322 H, Calcium 10.0, Troponin I High Sens 12 08/11/22 15:43: Troponin I High Sens 23 08/11/22 16:50: POC Glucose 271 H 08/11/22 20:16: POC Glucose 299 H 08/12/22 05:30: Sodium 139, Potassium 3.6, Chloride 108 H, Carbon Dioxide 24.0, Anion Gap 7, BUN 25 H, Creatinine 1.28 H, Estim Creat Clear Calc 28.51, Est GFR (MDRD) Af Amer 51 L, Est GFR (MDRD) Non-Af 43 L, BUN/Creatinine Ratio 19.5, Glucose 212 H, Calcium 9.0, Triglycerides 78, Cholesterol 156, LDL Cholesterol 86, VLDL Cholesterol 16, HDL Cholesterol 54 08/12/22 06:34: POC Glucose 143 H Radiography Diagnostic Testing: Radiology Impression Brain CT 08/11/22 13:30 IMPRESSION: 1. No acute intracranial abnormality. 2. Senescent changes. Aspect score 10 Electronically Signed: Jerrell Perez MD at 13:59 EDT , ADDENDUM: 08/11/22 1407 IMPRESSION: 1. No acute intracranial abnormality. 2. Senescent changes. Aspect score 10 N.B. : The above Results were Read Back by Jerrell Perez MD to Roscoe Howell MD, and understanding confirmed on 08/11/2022 14:00:44 (ET). Electronically Signed: Jerrell Perez MD at 13:59 EDT , Chest X-Ray 08/11/22 13:30 IMPRESSION: No acute cardiopulmonary abnormality. No interval change. Electronically Signed: Jerrell Perez MD at 14:53 EDT , Head/Neck CTA 08/11/22 13:31 IMPRESSION: Occlusion of the right INVESTOR RELATIONS ASSOCIATE P1 segment. Noncritical stenoses of the distal M1 segment of both MCAs. No peripheral branch occlusion. Less than 70% stenosis of the proximal cervical portion of the right ICA. N.B. : The above Results were Read Back by Jerrell Perez MD to Dante Malhotra MD, and understanding confirmed on 08/11/2022 14:11:56 (ET). Electronically Signed: Jerrell Perez MD at 14:21 EDT , ADDENDUM: 08/11/22 1428 IMPRESSION: Occlusion of the right INVESTOR RELATIONS ASSOCIATE P1 segment. Noncritical stenoses of the distal M1 segment of both MCAs. No peripheral branch occlusion. Less than 70% stenosis of the proximal cervical portion of the right ICA. N.B. : The above Results were Read Back by Jerrell Perez MD to Dante Malhotra MD, and understanding confirmed on 08/11/2022 14:11:56 (ET). Electronically Signed: Jerrell Perez MD at 14:21 EDT , Rhythm Strip Rhythm Strip: A-fib Rate: 100 Ectopy: None Physical Exam Const alert and no apparent distress HEENT head/scalp atraumatic and moist oral mucous membranes Extremity normal to inspection Neuro Neuro Narrative: MS 07/26 in RUE RLE. / in [place] LLE. Assessment & Plan Assessment/Plan (1) Acute ischemic stroke: PLAN: Onset was at 0930 on 08/11, but did not let family know until few hours later. Patient did not receive tenecteplase as she was nearly out the window and her blood pressure was not optimized at that time. Patient and family declining transfer to [facility] for evaluation for thrombectomy. They decided that because of the patient's overall fair performance status and she was just recently in hospice about a year ago but did overall get better. They understand that that could be more definitive treatment than what we would be able to provide here. [place] [facility] did recommend loading with clopidogrel and giving her aspirin. Patient does have known history of atrial fibrillation but had been taken off all her medications at some point. Unclear if that was done while she was in hospice and just not resumed. Plan for now: * MRI of the brain: multiple small right INVESTOR RELATIONS ASSOCIATE territorial infarcts * Echocardiogram * lipid panel * Physical, occupational and speech therapy * Continue with aspirin and clopidogrel * After testing is completed would recommend consulting [facility] teleneurology (2) Hypertensive urgency: PLAN: This may be due to the patient's stroke For the next 24 hours, will allow permissive hypertension PLAN: Plan Chronic conditions * Atrial fibrillation: Patient had been taken off anticoagulation at some point and not resumed. Given the stroke, will not resume at this time. * Diabetes mellitus type 2: Insulin-dependent. Continue with glargine. Start sliding scale insulin. Check an A1c * Chronic draining abdominal wounds: Family has been dressing this at home. We will consult the wound nurse. * Chronic kidney disease stage IIIb. Appears to be stable. Monitor. * Coronary artery disease status post CABG: Currently stable * Rheumatoid arthritis: Patient has chronic changes on her hands. Unclear patient has some underlying Raynaud's. VTE prophylaxis: SCDs for now. CODE STATUS: Addressed with the patient. Patient wished to be DNR Comfort Care arrest with intubation. Charges/Coding Visit Charges Inpatient E&M: 67570 Subs Hosp L2
[2022-08-12 07:50] VITALS: BP 166/82; PULSE 84; RESP 14; TEMP 36.2; O2SAT 99
[2022-08-12] MEDS: Clopidogrel Bisulfate 75 MG Tablet PO (08:23)
[2022-08-12] MEDS: Aspirin 81 MG TAB.CHEW PO (08:24)
[2022-08-12 08:48] LABS: Hemoglobin A1c 8.3 % (3.8-5.6)
--- NOTE | 2022-08-12 09:00 | MRI_ITS ---
We are attempting to reach an attending provider to discuss findings. An addendum with communication details will be sent when the communication is complete. STUDY: MRI BRAIN WITHOUT CONTRAST REASON FOR EXAM: Female, 81 years old. CVA TECHNIQUE: Standardized multiplanar fat and water weighted pulse sequences were obtained. COMPARISON: Head CT dated August 11, 2022 FINDINGS: Multiple small acute right LOCK AND DAM OPERATOR territorial infarcts are present including mild to moderate infarction of the anterior and peripheral aspect of the right thalamic lobe, mild infarction of the cortex and medial and anterior region of the right temporal lobe, as well as some tiny acute infarcts in the parasagittal/medial aspect of the right occipital lobe. A tiny acute infarct is also present in the posterior aspect of the right cerebellar lobe. There is mild cerebral atrophy with widening of the extra-axial spaces and ventricular dilatation. There are a limited number of small white matter hyperintensities, distributed throughout the deep white matter tracts of the cerebral hemispheres, consistent with mild chronic white matter ischemic changes. Normal T2* images of the brain without demonstrated susceptibility artifact. There is no demonstrated hemosiderin stain. Normal bilateral basal ganglia. There is no extra-axial fluid accumulation. Normal flow voids within the major intracranial circulation suggesting patency by spin echo criteria. Normal sella turcica, pituitary gland, infundibular stalk, optic chiasm and hypothalamus. Normal tectal plate and pineal gland. Normal midbrain, shobha and medulla. Normal remaining aspects of the cerebellum. Normal basal cisterns. Normal bilateral temporal bones. Normal bilateral internal auditory canals. No demonstrated orbital abnormality, within the constraints of a routine brain study. Normal visualized paranasal sinuses. Normal calvarium and skull base. Normal visualized soft tissue structures. Normal visualized upper cervical spine. MRI/Brain without Contrast IMPRESSION: Multiple acute right LOCK AND DAM OPERATOR territorial infarcts most pronounced in the right thalamic lobe. 1. Multiple small acute right LOCK AND DAM OPERATOR territorial infarcts are present including mild to moderate infarction of the anterior and peripheral aspect of the right thalamic lobe, mild infarction of the cortex and medial and anterior region of the right temporal lobe, as well as some tiny acute infarcts in the parasagittal/medial aspect of the right occipital lobe. 2. A tiny acute infarct is also present in the posterior aspect of the right cerebellar lobe Electronically Signed: Nabor Mancilla MD at 10:23 EDT ,
--- NOTE | 2022-08-12 10:10 | NURSING ---
NIHSS late due to patient being off the floor for MRI.
--- NOTE | 2022-08-12 10:59 | CASEMGMT ---
Social Work Pt's Power of Credit Card Control Clerk for Healthcare, w/Living Will provision initialed, is scanned into the summary tab of pt's echart. Pt has daughter Kaitlyn Walton listed as healthcare POA. JOO Nichols
--- NOTE | 2022-08-12 11:00 | CASEMGMT ---
RN CM Face to Face with patient for initial transition planning/care coordination assessment. RN CM introduced self and role at [facility]. Patient lying in bed, alert and oriented, daughter at bedside. Patient willing to participate in assessment and is able to answer all questions appropriately. Care providers, pharmacy, and demographics verified. Patient wishes to discharge home but is willing to go to SNF if she is unable to walk with daughters assistance, will monitor progress with therapy. Patient states she has no further needs or concerns at this time. CM to follow for discharge planning needs that may arise. PCP: [facility] Specialists: none Preferred Pharmacy: [facility] Insurance: [facility] Prescription Benefit: none Living Will/HPOA: yes, daughter Kaitlyn Walton LNOK: daughters Living Arrangements: Patient lives with daughter in a single story home with no steps to enter. Patient states she was independent at home prior to hospitalization. Transportation: Driving [employer] DME/HHC: Patient has shower chair, BSC, cane, walker, wheelchair. Patient has had [facility] in the past. Will monitor progress with therapy Disposition Plan: TBD, anticipate HHC vs SNF. Bridgett MALONEYN, RN, CM
[2022-08-12] MEDS: Insulin Lispro 100 UNIT/ML INSULN.PEN SC ×2 (11:18→16:03)
--- NOTE | 2022-08-12 11:20 | CASEMGMT ---
Social Work SW met w/pt in room, completed PHQ-9 w/pt, daughter present. Pt scored a 1 on being fidgety or moving more slowly, described that she was having stroke symptoms that were causing this, just before she came into the hospital. Pt denies any depressive symptoms. However, pt did mention that her has some dementia and it is frustrating. SW offered support to pt. SW provided resources to pt and daughter in the room for the [employer]. No further needs anticipated at this time, SW available should any additional SW needs arise. JOO Nichols
[2022-08-12 11:40] LABS: Bedside Glucose 221 mg/dL (74-106)
[2022-08-12 11:50] VITALS: BP 156/86; PULSE 98; RESP 16; TEMP 36.2; O2SAT 99
--- NOTE | 2022-08-12 13:18 | CASEMGMT ---
Therapy notified SW that patient needs to go somewhere for rehab. Therapy felt [facility] would be good for patient. SW went to patient's room. Introduced self and role at [facility]. SW let them know therapy is recommending patient go somewhere for rehab. They were agreeable. SW let them know SW will bring a list of facilities. Tyesha Carrasco RESEARCH EXECUTIVE CAMILA
--- NOTE | 2022-08-12 13:46 | CASEMGMT ---
SW provided a list of correction facility providers including quality and resource use data and consistent with patient?s preferred geographic region, medical needs, and insurance network were provided from the [employer] Guide. Patient's daughter said she would prefer [facility] because it is close and she could ride her bike. SW will work on referral. TONIA asked d/c vp ad products and planning Candice to please send a referral to [facility]. Tyesha Carrasco DIRECT MARKETING EXECUTIVE CAMILA
--- NOTE | 2022-08-12 13:52 | CASEMGMT ---
Discharge Planning Referral made to [facility] via [facility]. Candice Escalera
[2022-08-12 14:29] VITALS: BMI 26.0
--- NOTE | 2022-08-12 14:56 | WOUNDNOTE ---
wound photo: abdomen
[2022-08-12 15:50] VITALS: BP 185/101; PULSE 82; RESP 14; TEMP 37; O2SAT 100
[2022-08-12 16:56] VITALS: BMI 26.0
[2022-08-12 18:10] LABS: Bedside Glucose 274 mg/dL (74-106)
[2022-08-12 19:57] VITALS: O2SAT 99
[2022-08-12] MEDS: Insulin Glargine-YFGN 100 UNIT/ML Pen 12 UNIT SC (20:48)
[2022-08-12 20:56] VITALS: BMI 26.0
[2022-08-12 21:11] LABS: Bedside Glucose 289 mg/dL (74-106)
[2022-08-12 22:23] VITALS: BP 166/81; PULSE 99; RESP 16; TEMP 36.6; O2SAT 96
[2022-08-13 03:32] VITALS: BP 166/74; PULSE 97; RESP 16; TEMP 36.3; O2SAT 97
[2022-08-13 03:36] VITALS: O2SAT 98
[2022-08-13] MEDS: Insulin Lispro 100 UNIT/ML INSULN.PEN SC ×3 (06:22→16:06)
[2022-08-13 07:01] LABS: Bedside Glucose 202 mg/dL (74-106)
[2022-08-13 07:39] VITALS: O2SAT 95
--- NOTE | 2022-08-13 08:07 | PN.HOSP_ITS ---
Reason for Visit Reason for Visit: Diagnoses Hypertensive urgency (08/11/22) Cerebral infarction, unspecified (08/11/22) Subjective Subjective Still with left sided weakness. Objective Data Objective Data Vital Signs: Vital Signs Temp Pulse Resp BP Pulse Ox O2 Del Method 36.3 C L 97 16 166/74 H 95 Room Air 08/13/22 03:32 08/13/22 03:32 08/13/22 03:32 08/13/22 03:32 08/13/22 07:39 08/13/22 07:39 Oxygen Delivery Method Room Air Weight: 73.7 kg Body Mass Index (BMI) 26.0 Intake & Output: Intake and Output for Last 24 Hours 08/11/22 08/12/22 08/13/22 23:59 23:59 23:59 Intake Total 1380 / 1380 990 / 990 60 / 60 Output Total 1175 / 1175 1725 / 1725 700 / 700 Balance 205 / 205 -735 / -735 -640 / -640 Lab / Micro Data Result Diagrams: 08/11/22 13:40 08/12/22 05:30 Labs: Laboratory Results - last 24 hr 08/12/22 05:30: Hemoglobin A1c 8.3 H 08/12/22 11:17: POC Glucose 221 H 08/12/22 16:00: POC Glucose 274 H 08/12/22 20:47: POC Glucose 289 H 08/13/22 06:21: POC Glucose 202 H Radiography Diagnostic Testing: Radiology Impression Echocardiogram 08/11/22 16:30 Interpretation Summary Normal LV size. Left ventricular systolic function is normal. The estimated ejection fraction is 55 %. The left atrium is mildly enlarged. Bubble contrast study negative for right to left interatrial shunt. Ordering Physician: Dipak Bales Referring Physician: OREN PRINGLE Performed By: Ambika Werner RCS Brain MRI 08/12/22 09:00 IMPRESSION: Multiple acute right PRACTICING DERMATOLOGIST territorial infarcts most pronounced in the right thalamic lobe. 1. Multiple small acute right PRACTICING DERMATOLOGIST territorial infarcts are present including mild to moderate infarction of the anterior and peripheral aspect of the right thalamic lobe, mild infarction of the cortex and medial and anterior region of the right temporal lobe, as well as some tiny acute infarcts in the parasagittal/medial aspect of the right occipital lobe. 2. A tiny acute infarct is also present in the posterior aspect of the right cerebellar lobe Electronically Signed: Nabor Mancilla MD at 10:23 EDT , ADDENDUM: 08/12/22 1038 IMPRESSION: Multiple acute right PRACTICING DERMATOLOGIST territorial infarcts most pronounced in the right thalamic lobe. 1. Multiple small acute right PRACTICING DERMATOLOGIST territorial infarcts are present including mild to moderate infarction of the anterior and peripheral aspect of the right thalamic lobe, mild infarction of the cortex and medial and anterior region of the right temporal lobe, as well as some tiny acute infarcts in the parasagittal/medial aspect of the right occipital lobe. 2. A tiny acute infarct is also present in the posterior aspect of the right cerebellar lobe N.B. : The above Results were Read Back by Nabor Mancilla MD to Dipak Bales DO, and understanding confirmed on 08/12/2022 10:31:31 (ET). Electronically Signed: Nabor Mancilla MD at 10:23 EDT , Rhythm Strip Rhythm Strip: A-fib Rate: 100 Ectopy: None Physical Exam Const alert and no apparent distress HEENT head/scalp atraumatic and moist oral mucous membranes Neuro Neuro Narrative: MS 4/5 in LUE and LLE. Psych affect normal Assessment & Plan Assessment/Plan (1) Acute ischemic stroke: PLAN: Onset was at 0930 on 08/11, but did not let family know until few hours later. Patient did not receive tenecteplase as she was nearly out the window and her blood pressure was not optimized at that time. Patient and family declining transfer to [facility] for evaluation for thrombectomy. They decided that because of the patient's overall fair performance status and she was just recently in hospice about a year ago but did overall get better. They understand that that could be more definitive treatment than what we would be able to provide here. [place] [facility] did recommend loading with clopidogrel and giv ing her aspirin. Patient does have known history of atrial fibrillation but had been taken off all her medications at some point. Unclear if that was done while she was in hospice and just not resumed. Plan for now: * MRI of the brain: multiple small right PRACTICING DERMATOLOGIST territorial infarcts * Echocardiogram: EF 55% * lipid panel * Physical, occupational and speech therapy * Continue with aspirin and clopidogrel * DW [facility] neurology. Wait 5 days before restarting anticoagulation, then discontinue asa and clopidogrel (08/19) (2) Hypertensive urgency: PLAN: This may be due to the patient's stroke Completed 24 hours of permissive HTN Start treatment with amlodpine PLAN: Plan Chronic conditions * Atrial fibrillation: Patient had been taken off anticoagulation at some point and not resumed. Given the stroke, will not resume at this time. * Diabetes mellitus type 2: Insulin-dependent. Continue with glargine. Start sliding scale insulin. Check an A1c * Chronic draining abdominal wounds: Family has been dressing this at home. We will consult the wound nurse. * Chronic kidney disease stage IIIb. Appears to be stable. Monitor. * Coronary artery disease status post CABG: Currently stable * Rheumatoid arthritis: Patient has chronic changes on her hands. Unclear patient has some underlying Raynaud's. VTE prophylaxis: SCDs for now. CODE STATUS: Addressed with the patient. Patient wished to be DNR Comfort Care arrest with intubation. Charges/Coding Visit Charges Inpatient E&M: 62800 Subs Hosp L2
[2022-08-13 09:01] VITALS: BP 170/78; PULSE 89; RESP 16; TEMP 36.5; O2SAT 97
[2022-08-13] MEDS: Aspirin 81 MG TAB.CHEW PO (09:09)
[2022-08-13] MEDS: amLODIPine 5 MG Tablet PO (09:09)
[2022-08-13] MEDS: Clopidogrel Bisulfate 75 MG Tablet PO (09:09)
--- NOTE | 2022-08-13 09:30 | CASEMGMT ---
SW asked patient and her daughter if patient is active with Palliative Care. Neither of them knew what Palliative Care was and did not think patient was active with Palliative. Tyesha Carrasco PLANER CHAIN OFFBEARER CAMILA
--- NOTE | 2022-08-13 09:31 | CASEMGMT ---
Discharge Planning Wound note sent to [facility] via [facility] as requested along with confirmation that patient is not currently receiving Palliative services. Candice Escalera
[2022-08-13 11:28] VITALS: O2SAT 97
[2022-08-13 12:30] LABS: Bedside Glucose 305 mg/dL (74-106)
[2022-08-13 12:32] VITALS: BMI 26.0
--- NOTE | 2022-08-13 12:50 | CASEMGMT ---
[facility] accepted patient. TONIA notified patient and her daughter Xochilt. Xochilt asked about transportation and SW let her know [facility] can set up wheelchair van. Xochilt asked if she could transport patient. SW checked with PRINCIPLE SOFTWARE ENGINEER and she feels patient could get in and out of a vehicle with assistance. TONIA let Xochilt know this information. TONIA called patient's other daughter Kaitlyn and let her know about [facility] accepting patient. TONIA gave Kaitlyn the phone number for Mira at [facility] to discuss finances. Kaitlyn said she will also follow up with the religion. TONIA notified RN and physician. Tyesha Carrasco ROOFING PLANT SUPERVISOR CAMILA
--- NOTE | 2022-08-13 13:08 | PCM.TXEXTCAR ---
Diet Diet Order/Speech Therapy: 08/11/22 16:31 Diet: Cardiac: Calorie-Controlled Food consistency:: Regular Liquid Consistency:: Regular/Thin Dietary Modifications:: Consistent Carbohydrate Diet Comments: Meats cut small bite size, Sup @ meals, sips 1 at a time, Family ok to sup How many daily calories?: 1800 calorie Routine Orders/Code Status Routine Lab Work: CBC and BMP Code Status: DNRCC-A Wound(s) mid abdomen: Wound Type: nonhealing wound Dressing Change: dry dressing Therapies Weight Bearing: Full weight bearing Physical Therapy: Eval and Treat Occupational Therapy: Eval and Treat Problem/Diagnosis (1) Acute ischemic stroke: Status: Acute Code(s): I63.9 - Cerebral infarction, unspecified Plan: Onset was at 0930 on 08/11, but did not let family know until few hours later. Patient did not receive tenecteplase as she was nearly out the window and her blood pressure was not optimized at that time. Patient and family declining transfer to [facility] for evaluation for thrombectomy. They decided that because of the patient's overall fair performance status and she was just recently in hospice about a year ago but did overall get better. They understand that that could be more definitive treatment than what we would be able to provide here. [place] [facility] did recommend loading with clopidogrel and giving her aspirin. Patient does have known history of atrial fibrillation but had been taken off all her medications at some point. Unclear if that was done while she was in hospice and just not resumed. Plan for now: MRI of the brain: multiple small right SEWER INSPECTOR territorial infarcts Echocardiogram: EF 55% lipid panel Physical, occupational and speech therapy Continue with aspirin and clopidogrel [facility] neurology. Wait 5 days before restarting anticoagulation, then discontinue asa and clopidogrel (08/19) (2) Hypertensive urgency: Status: Acute Code(s): I16.0 - Hypertensive urgency Plan: This may be due to the patient's stroke Completed 24 hours of permissive HTN Start treatment with amlodpine Plan Chronic conditions Atrial fibrillation: Patient had been taken off anticoagulation at some point and not resumed. Given the stroke, will not resume at this time. Diabetes mellitus type 2: Insulin-dependent. Continue with glargine. Start sliding scale insulin. Check an A1c Chronic draining abdominal wounds: Family has been dressing this at home. We will consult the wound nurse. Chronic kidney disease stage IIIb. Appears to be stable. Monitor. Coronary artery disease status post CABG: Currently stable Rheumatoid arthritis: Patient has chronic changes on her hands. Unclear patient has some underlying Raynaud's. VTE prophylaxis: SCDs for now. CODE STATUS: Addressed with the patient. Patient wished to be DNR Comfort Care arrest with intubation. Allergies/Procedures Done in Hospital Allergies adhesive Allergy (Verified 08/11/22 13:33) Unknown red skin, uses paper tape and is okay with this bacitracin zinc [From Neosporin ([id number])] Allergy (Verified 08/11/22 13:33) Rash metronidazole Allergy (Verified 08/11/22 13:33) ALLERGY neomycin sulfate [From Neosporin ([id number])] Allergy (Verified 08/11/22 13:33) Rash polymyxin B [From Neosporin ([id number])] Allergy (Verified 08/11/22 13:33) Rash prednisolone acetate, micronized Allergy (Verified 08/11/22 13:33) ALLERGY simvastatin Allergy (Verified 08/11/22 13:33) ALLERGY tramadol [From Ultram] Allergy (Verified 08/11/22 13:33) ALLERGY amoxicillin [From Augmentin] Adverse Reaction (Verified 08/11/22 13:33) Nausea/Vom/Diarrhea atorvastatin calcium [From Lipitor] Adverse Reaction (Verified 08/11/22 13:33) Pain in joints clavulanic acid [From Augmentin] Adverse Reaction (Verified 08/11/22 13:33) Nausea/Vom/Diarrhea fenofibrate nanocrystallized [From Tricor] Adverse Reaction (Verified 08/11/22 13:33) Upset Stomach upset gi or muscle pain flurbiprofen Adverse Reaction (Verified 08/11/22 13:33) Upset Stomach upset stomach gemfibrozil Adverse Reaction (Verified 08/11/22 13:33) Upset Stomach glipizide [From Glucotrol] Adverse Reaction (Verified 08/11/22 13:33) Upset Stomach dizzy pravastatin Adverse Reaction (Verified 08/11/22 13:33) Pain in joints Procedures: 2-D Echocardiogram Type of Care/Length of Stay Estimated LOS: Convalescent Care Less Than 30 days Type of Care Needed: Skilled Rehab Potential: Good Prognosis: Good Additional Orders/Day of Discharge Day of Discharge: 08/13/22 Dietary and Speech Recommendations Dietitian Recommendations/Changes: Continue 1800 calorie/consistent carbohydrate; cardiac diet. ONS not needed at this time; will offer if PO regresses at meals. Texture/consistency as per PROCESS ASSISTANT. Discharge Plan Admission Admit Date/Time: 08/11/22 15:22 Primary Reason for Your Visit: Stroke Attending Provider: Dipak Bales Primary Care Provider: Юлия Jean-Baptiste Discharge Orders/Prescriptions Prescriptions: New acetaminophen 325 mg Tablet 650 mg PO Q6H PRN PRN (Reason: Pain 1-10 Or Fever>100.7) Qty: 0 0RF amlodipine 5 mg Tablet 5 mg PO DAILY Qty: 0 0RF aspirin 81 mg Tablet,Chewable 81 mg PO BREAKFAST Qty: 4 0RF Rx Instructions: Last dose on 08/17 clopidogrel 75 mg Tablet 75 mg PO DAILY Qty: 4 0RF Rx Instructions: last dose on 08/17 apixaban 5 mg tablet 5 mg PO BID Qty: 30 0RF Rx Instructions: start 08/18/2022. Continued glyburide 5 mg Tablet 2.5 mg PO DAILY Changed insulin glargine [Lantus Solostar U-100 Insulin] 100 unit/mL (3 mL) insulin pen 20 unit subcut QPM Qty: 15 0RF Referrals / Follow Up: [facility] [Provider Group] - Within 1 Month Юлия Jean-Baptiste DO [Primary Care Provider] - Within 2 Weeks Disposition Disposition (needs filled in before D/C Order can be placed): Nursing Home Facility
--- NOTE | 2022-08-13 13:19 | DS.PCM_ITS ---
Providers Date of Admission: 08/11/22 Primary Care Physician: Юлия Jean-Baptiste DO Consultations 08/11/22 16:30 Consult: Onc/Wound/straw hat plunger operator Routine Comment: Reason For Visit: CVA Diagnosis Discharge Diagnosis (1) Acute ischemic stroke: Status: Acute Code(s): I63.9 - Cerebral infarction, unspecified Plan: Onset was at 0930 on 08/11, but did not let family know until few hours later. Patient did not receive tenecteplase as she was nearly out the window and her bl ood pressure was not optimized at that time. Patient and family declining transfer to [facility] for evaluation for thrombectomy. They decided that because of the patient's overall fair performance status and she was just recently in hospice about a year ago but did overall get better. They understand that that could be more definitive treatment than what we would be able to provide here. [place] [facility] did recommend loading with clopidogrel and giving her aspirin. Patient does have known history of atrial fibrillation but had been taken off all her medications at some point. Unclear if that was done while she was in hospice and just not resumed. Plan for now: * MRI of the brain: multiple small right GAUGER CHIEF territorial infarcts * Echocardiogram: EF 55% * lipid panel * Physical, occupational and speech therapy * Continue with aspirin and clopidogrel * [facility] neurology. Wait 5 days before restarting anticoagulation, then discontinue asa and clopidogrel (08/17, apixaban 5 BID on 08/18) (2) Hypertensive urgency: Status: Acute Code(s): I16.0 - Hypertensive urgency Plan: This may be due to the patient's stroke Completed 24 hours of permissive HTN Start treatment with amlodpine Plan Chronic conditions * Atrial fibrillation: Patient had been taken off anticoagulation at some point and not resumed. Given the stroke, will not resume at this time. * Diabetes mellitus type 2: Insulin-dependent. Continue with glargine. Start sliding scale insulin. Check an A1c. Increase glargine to 20 * Chronic draining abdominal wounds: Family has been dressing this at home. We will consult the wound nurse. * Chronic kidney disease stage IIIb. Appears to be stable. Monitor. * Coronary artery disease status post CABG: Currently stable * Rheumatoid arthritis: Patient has chronic changes on her hands. Unclear p atient has some underlying Raynaud's. VTE prophylaxis: SCDs for now. CODE STATUS: Addressed with the patient. Patient wished to be DNR Comfort Care arrest with intubation. Medications at Discharge Home Medications glyburide 5 mg tablet 2.5 mg PO DAILY 07/04/22 acetaminophen 325 mg tablet 650 mg PO Q6H PRN PRN Pain 1-10 Or Fever>100.7 #0 tabs 08/13/22 amlodipine 5 mg tablet 5 mg PO DAILY #0 tabs 08/13/22 apixaban 5 mg tablet 5 mg PO BID #30 tabs 08/13/22 aspirin 81 mg chewable tablet 81 mg PO BREAKFAST #4 tabs 08/13/22 clopidogrel 75 mg tablet 75 mg PO DAILY #4 tabs 08/13/22 insulin glargine 100 unit/mL (3 mL) subcutaneous pen (Lantus Solostar U-100 Insulin) 20 unit (0.2 mL) subcut QPM #15 mL 08/13/22 insulin lispro 100 unit/mL subcutaneous pen (Humalog KwikPen (U-100) Insulin) See Protocol subcut TIDAC #0 mL 08/13/22 Hospital Course Operations None Procedures 2-D Echocardiogram Summary of Care Provided Minutes Spent on Discharge: 32 Weight / BMI Weight Weight: 73.7 kg Body Mass Index (BMI) 26.0 ABG / Lab / Microbiology Data Result Diagrams: 08/11/22 13:40 08/12/22 05:30 Laboratory: Laboratory Results - last 24 hr 08/12/22 16:00: POC Glucose 274 H 08/12/22 20:47: POC Glucose 289 H 08/13/22 06:21: POC Glucose 202 H 08/13/22 12:01: POC Glucose 305 H Meaningful Use Info Meaningful Use Diagnoses (Choose all that apply): Ischemic CVA CVA Therapy Assessed for PT,OT and/or ST?: Yes Ischemic Stroke Antithrombotic order at d/c?: Yes Dx of Atrial fib/flutter?: Yes Anticoagulant at discharge?: No Reason anticoagulant not ordered: Medical Contraindication Statins at discharge?: No Reason Statin not ordered: Drug Allergy Primary Dx Acute Ischemic CVA?: Yes Discharge Plan Admission Admit Date/Time: 08/11/22 15:22 Primary Reason for Your Visit: Stroke Attending Provider: Dipak Bales Primary Care Provider: Юлия Jean-Baptiste Discharge Orders/Prescriptions Prescriptions: New acetaminophen 325 mg Tablet 650 mg PO Q6H PRN PRN (Reason: Pain 1-10 Or Fever>100.7) Qty: 0 0RF amlodipine 5 mg Tablet 5 mg PO DAILY Qty: 0 0RF aspirin 81 mg Tablet,Chewable 81 mg PO BREAKFAST Qty: 4 0RF Rx Instructions: Last dose on 08/17 clopidogrel 75 mg Tablet 75 mg PO DAILY Qty: 4 0RF Rx Instructions: last dose on 08/17 apixaban 5 mg tablet 5 mg PO BID Qty: 30 0RF Rx Instructions: start 08/18/2022. insulin lispro [Humalog KwikPen Insulin] 100 unit/mL Insulin Pen See Protocol subcut TIDAC Qty: 0 0RF Protocol: 3. Sliding Scale Insulin Med Dosing Condition: 150-189 mg/dl = 1 unit Condition: 190-229 mg/dl = 2 units Condition: 230-269 mg/dl = 3 units Condition: 270-309 mg/dl = 4 units Condition: 310-349 mg/dl = 5 units Condition: 350-399 mg/dl = 6 units Condition: 400-449 mg/dl = 7 units Condition: Greater than 449 call physician Protocol Text: - Use for Total Daily Dose of Insulin 37-55 units - Obsese, infected, or steroid patients MEDIUM DOSING ALGORITHIM Continued glyburide 5 mg Tablet 2.5 mg PO DAILY Changed insulin glargine [Lantus Solostar U-100 Insulin] 100 unit/mL (3 mL) insulin pen 20 unit subcut QPM Qty: 15 0RF Referrals / Follow Up: [facility] [Provider Group] - Within 1 Month Юлия Jean-Baptiste DO [Primary Care Provider] - Within 2 Weeks Disposition Disposition (needs filled in before D/C Order can be placed): Senior Care Facility Charges/Coding Visit Charges Inpatient E&M: 24884 Disch Hosp >30min
--- NOTE | 2022-08-13 13:26 | CASEMGMT ---
Discharge Planning Discharge orders sent to [facility] via [employer]. Candice Escalera
--- NOTE | 2022-08-13 14:25 | PHA.DC.MR ---
Pharmacy Service has performed discharge medication reconciliation for this patient. The patient's discharge medication list was reviewed for discrepancies and discrepancies were resolved. Home Medications glyburide 5 mg tablet 2.5 mg PO DAILY 07/04/22 acetaminophen 325 mg tablet 650 mg PO Q6H PRN PRN Pain 1-10 Or Fever>100.7 #0 tabs 08/13/22 amlodipine 5 mg tablet 5 mg PO DAILY #0 tabs 08/13/22 apixaban 5 mg tablet 5 mg PO BID #30 tabs 08/13/22 aspirin 81 mg chewable tablet 81 mg PO BREAKFAST #4 tabs 08/13/22 clopidogrel 75 mg tablet 75 mg PO DAILY #4 tabs 08/13/22 insulin glargine 100 unit/mL (3 mL) subcutaneous pen (Lantus Solostar U-100 Insulin) 20 unit (0.2 mL) subcut QPM #15 mL 08/13/22 insulin lispro 100 unit/mL subcutaneous pen (Humalog KwikPen (U-100) Insulin) See Protocol subcut TIDAC #0 mL 08/13/22
--- NOTE | 2022-08-13 15:38 | CASEMGMT ---
Discharge Planning Covid results and discharge time sent to [facility] via [facility]. Candice Escalera
[2022-08-13 15:53] VITALS: BP 152/77; PULSE 82; RESP 16; TEMP 36.7; O2SAT 95
--- NOTE | 2022-08-13 16:39 | NURSING ---
Report called to Mary Tate LPN at [phone].
[2022-08-13 17:46] LABS: Bedside Glucose 270 mg/dL (74-106)
[2022-08-15 13:28] LABS: Bedside Glucose 116 mg/dL (74-106)
== END 2022-08-13 16:32 | disposition skilled nursing facility (03) | DRG 65 ==
LOC: ED 14:53 → PCU 15:43
PROVIDERS: Emergency Provider Emergency Medicine; PCP Family Medicine
DX: I63.9 Cerebral infarction, unspecified (principal); I48.20 Chronic atrial fibrillation, unspecified; E11.22 Type 2 diabetes mellitus with diabetic chronic kidney disease; E11.42 Type 2 diabetes mellitus with diabetic polyneuropathy; N18.32 Chronic kidney disease, stage 3b; Z79.4 Long term (current) use of insulin; E11.51 Type 2 diabetes mellitus with diabetic peripheral angiopathy without gangrene; Z93.3 Colostomy status; M06.9 Rheumatoid arthritis, unspecified; E78.00 Pure hypercholesterolemia, unspecified; I73.00 Raynaud's syndrome without gangrene; I16.0 Hypertensive urgency; I25.10 Atherosclerotic heart disease of native coronary artery without angina pectoris; Z79.82 Long term (current) use of aspirin; Z79.02 Long term (current) use of antithrombotics/antiplatelets; Z66 Do not resuscitate; Z95.1 Presence of aortocoronary bypass graft
CPT/HCPCS: 36415; 70450; 70496; 70498; 70551; 71045; 80048; 80061; 82962; 83036; 84484; 85025; 85610; 85730; 87426; 92610; 93005; 93306; 94762; 97116; 97162; 97166; 97530; 97802; 99285; J7030; Q9957; Q9967; A4216

== ENCOUNTER 2023-02-20 09:42 | Inpatient (IN) | payer OTHER, SELFPAY ==
[2023-02-20] VITALS (9 sets, daily range): BP systolic 155–189; BP diastolic 83–124; PULSE 90–115; RESP 16–20; TEMP 36.3–37.6; O2SAT 95–100; BMI 32.1; BMI 29.5
--- NOTE | 2023-02-20 09:54 | EKG12_ITS ---
Test Reason : Blood Pressure : / mmHG Vent. Rate : 102 BPM Atrial Rate : 097 BPM P-R Int : 000 ms QRS Dur : 090 ms QT Int : 352 ms P-R-T Axes : 000 031 152 degrees QTc Int : 458 ms Atrial fibrillation with premature ventricular or aberrantly conducted complexes Nonspecific ST and T wave abnormality Abnormal ECG Confirmed by SARA HUTTON, PERCY ([id number]), video news editor ALEX BUSTOS ([id number]) on 02/21/2023 9:29:14 AM Referred By: KELSI Confirmed By:PERCY RUIZ MD
--- NOTE | 2023-02-20 10:00 | EDS_ITS ---
HPI History of Present Illness Chief Complaint: Lower Extremity Injury Informant: patient, family and other (asl interpreter) Narrative Narrative: Chronic wounds of both great toes, and diabetic neuropathy so she has no pain. She had a routine follow-up with Dr. Munoz at podiatry office today, and he sent her over to be admitted because she needs operative management of at least the left one, which has exposed bone at this time. Patient states she has not been feeling poorly or had any fevers or chills, there is always some scant drainage from the wounds. Also has a history of what family believes is an ileostomy due to a bowel obstruction from adhesions, she also has a hernia in the midline which was repaired but is still an issue, there are some wounds caudal to this that family points out and there is a stitch exposed. Occasional drainage but it is not bothering her. Dr. Wilson was her surgeon. [facility] Medical History Abdominal pain Acute ischemic stroke Arthritis Back pain Bilateral leg pain Breast lump in female Cardiology follow-up encounter Cataracts, bilateral Chronic atrial fibrillation CKD (chronic kidney disease) Colovaginal fistula Colovesical fistula Controlled type 2 diabetes mellitus with hyperglycemia Delayed wound healing Diabetes Dietary restriction Diverticulitis large intestine Diverticulosis Heart failure High blood pressure High cholesterol History of diverticulitis History of echocardiogram History of edema History of heart attack HLD (hyperlipidemia) Ileostomy in place Kidney stones Loss of hearing Non-smoker Open wound Osteoarthritis Peripheral arterial disease Rheumatoid arthritis Shortness of breath on exertion Type 2 diabetes mellitus with diabetic polyneuropathy Ulcer of right foot with necrosis of bone Ulcer of right lower extremity with muscle involvement without evidence of necrosis Unspecified protein-calorie malnutrition Wears glasses Home Medications glyburide 5 mg tablet 2.5 mg PO DAILY 07/04/22 [History Last Taken Unknown] acetaminophen 325 mg tablet 650 mg (2 x 325 mg) PO Q6H PRN PRN Pain 1-10 Or Fever>100.7 #0 tabs 08/13/22 [Rx Last Taken Unknown] amlodipine 5 mg tablet 5 mg PO DAILY #0 tabs 08/13/22 [Rx Last Taken Unknown] apixaban 5 mg tablet 5 mg PO BID #30 tabs 08/13/22 [Rx Last Taken Unknown] insulin glargine 100 unit/mL (3 mL) subcutaneous pen (Lantus Solostar U-100 Insulin) 20 unit (0.2 mL) subcut QPM #15 mL 08/13/22 [Rx Last Taken Unknown] insulin lispro 100 unit/mL subcutaneous pen (Humalog KwikPen (U-100) Insulin) See Protocol subcut TIDAC #0 mL 08/13/22 [Rx Last Taken Unknown] Allergy/AdvReac Type Severity Reaction Status Date / Time adhesive Allergy Unknown Verified 08/11/22 13:33 bacitracin zinc Allergy Rash Verified 08/11/22 13:33 [From Neosporin ([id number])] metronidazole Allergy ALLERGY Verified 08/11/22 13:33 neomycin sulfate Allergy Rash Verified 08/11/22 13:33 [From Neosporin ([id number])] polymyxin B Allergy Rash Verified 08/11/22 13:33 [From Neosporin ([id number])] prednisolone acetate, Allergy ALLERGY Verified 08/11/22 13:33 micronized simvastatin Allergy ALLERGY Verified 08/11/22 13:33 tramadol [From Ultram] Allergy ALLERGY Verified 08/11/22 13:33 amoxicillin [From Augmentin] AdvReac Nausea/Vom/ Verified 08/11/22 13:33 Diarrhea atorvastatin calcium AdvReac Pain in Verified 08/11/22 13:33 [From Lipitor] joints clavulanic acid AdvReac Nausea/Vom/ Verified 08/11/22 13:33 [From Augmentin] Diarrhea fenofibrate nanocrystallized AdvReac Upset Verified 08/11/22 13:33 [From Tricor] Stomach flurbiprofen AdvReac Upset Verified 08/11/22 13:33 Stomach gemfibrozil AdvReac Upset Verified 08/11/22 13:33 Stomach glipizide [From Glucotrol] AdvReac Upset Verified 08/11/22 13:33 Stomach pravastatin AdvReac Pain in Verified 08/11/22 13:33 joints Family History Mother Diabetes Father Hypertension CVA (cerebral vascular accident) Brother Lung cancer Sister Breast cancer COPD (chronic obstructive pulmonary disease) Surgical History History of appendectomy History of cholecystectomy History of heart bypass surgery History of knee replacement History of partial colectomy (~05/2021) Hx of colonoscopy S/P CABG (coronary artery bypass graft) S/P hysterectomy Social History (Updated 02/20/23 @ 10:29 by Susan Castro) household members: family housing: group home Smoking Status: Never smoker alcohol intake: current alcohol intake frequency: other substance use type: does not use additional social history: USES ASPIRIN ROS ROS ED Constitutional Constitutional ED: Denies chills or fever(s) Eyes Eyes: Denies change in vision or diplopia ENT ENT ED: Denies rhinorrhea or sore throat Cardiovascular Cardiovascular: Denies chest pain or palpitations Respiratory/Chest Respiratory/Chest: Denies cough or dyspnea Gastrointestinal Gastrointestinal: Denies abdominal pain, diarrhea, nausea or vomiting Genitourinary Genitourinary ED: Denies dysuria or hematuria Musculoskeletal Musculoskeletal: Denies back pain or neck pain Integumentary Reports wounds; Denies abscess or rash Neurologic Neurologic: Reports paresthesias RLE and LLE; Denies headache(s) or weakness Psychiatric Psychiatric: Denies anxiety or suicidal thoughts EXAM Physical Exam Const Vital Signs: 02/20/23 09:43 Temperature 97.5 F L Temperature Source Temporal Pulse Rate 115 H Respiratory Rate 20 H Blood Pressure 167/124 H Blood Pressure Mean 138 Pulse Ox 100 Oxygen Delivery Method Room Air Positive well nourished and well developed General Appearance ED: well developed and NAD HEENT Reports moist mucous membranes normocephalic and atraumatic Eyes PERRL and EOMs intact bilaterally Neck full ROM and supple Resp normal respiratory effort and clear to auscultation bilaterally Cardio regular rate and regular rhythm Rate: tachycardic GI non-tender and non-distended GI Narrative: Large lower abdominal ventral hernia and surgical scar, reduces spontaneously when patient relaxes her abdominal musculature. 2 small wounds caudal to this, separate from each other, no signs of cellulitis, tenderness, or active discharge. Auscultation: normoactive bowel sounds Palpation: soft Back/Spine no CVA tenderness General Back: other FROM Extremity Extremity Narrative: Nontender ulcerated wounds at the tibial aspect of tips of both second toes, the left one is eroded more and there is bone palpable. No significant active bleeding or discharge to suggest an abscess. Nontender but insensate. Status post amputation of both great toes. General Extremety ED: Negative for edema, pulses abnormal or tenderness General Extremity: Negative for edema or pulses abnormal Neuro oriented x3 and CN's II-XII intact bilaterally Neuro Narrative: Insensate feet Sensorium / Orientation: awake and alert Motor Exam: strength 5/5 throughout Psych mental status grossly normal Skin no rashes or lesions noted Skin Narrative: Wounds on both great toes see above. No other rashes. MDM MDM MDM Narrative Medical decision making narrative: No obvious radiographic signs of osteomyelitis to the affected toes, 3 views of R foot on my interpretation, but on my interpretation of 3 views of the left foot, she appears to have some erosion of the distal phalanx of the second toe consistent with osteomyelitis. Status post transtarsal amputation toe #1 bilaterally. She has a leukocytosis, elevated CRP, empiric Invanz ordered given her allergy to penicillins, and discussed with Dr. Munoz podiatry and hospitalist. Lab Data Attestation: I reviewed the patient's lab results. Labs: Laboratory Results - last 24 hr 02/20/23 10:25 WBC 14.3 H RBC 5.52 H Hgb 16.2 H Hct 49.0 H MCV 88.8 MCH 29.3 MCHC 33.1 RDW Std Deviation 44.8 H RDW Coeff of Monique 13.9 Plt Count 238 MPV 11.0 Immature Gran % (Auto) 1.000 H Neut % (Auto) 62.3 Lymph % (Auto) 24.8 [place] % (Auto) 9.9 Eos % (Auto) 1.2 Baso % (Auto) 0.8 Absolute Neuts (auto) 8.9 H Absolute Lymphs (auto) 3.54 Nucleated RBC % 0 Sodium 133 L Potassium 4.1 Chloride 105 Carbon Dioxide 22.0 Anion Gap 6 BUN 21 H Creatinine 1.51 H Est GFR (MDRD) Af Amer 42 L Est GFR (MDRD) Non-Af 35 L BUN/Creatinine Ratio 13.9 Glucose 331 H Calcium 9.3 C-React Prot Ext Range 38.40 H Radiography Diagnostic Testing: Clinical Impression(s) from Imaging Studies Foot X-Ray 02/20/23 10:04 IMPRESSION: Charcot deformity of the midfoot. Prior amputation of the great toe and third toe. Diffuse soft tissue swelling. Electronically Signed: Cuco Manuel MD at 11:13 EST , Foot X-Ray 02/20/23 10:06 IMPRESSION: Soft tissue swelling. Vascular calcification. Prior amputation of the mid and distal portion of the first metatarsal and great toe. Erosive changes seen in the distal portion of the distal pharynx of the second toe with overlying soft tissue swelling suggestive of osteomyelitis. Electronically Signed: Cuco Manuel MD at 11:11 EST , Rhythm Strip Rhythm Strip: A-fib Rate: 100 Ectopy: None EKG Initial EKG: Attestation: I personally reviewed and interpreted this EKG as follows: Interpretation: No Acute Injury Pattern and Atrial Fibrillation (102) Prior EKG tracings: available for review Prior: Unchanged Management Discussion w/another healthcare provider: Hospitalist and Laundry Machine Operator (Alexander) Discharge Plan Triage Chief Complaint: Lower Extremity Injury ED Provider: Dante Malhotra Dx/Rx/DC Orders Clinical Impression: Osteomyelitis of second toe of left foot, Type 2 diabetes mellitus with right d iabetic foot infection, Afib Prescriptions: No Action glyburide 5 mg Tablet 2.5 mg PO DAILY acetaminophen 325 mg Tablet 650 mg PO Q6H PRN PRN (Reason: Pain 1-10 Or Fever>100.7) Qty: 0 0RF amlodipine 5 mg Tablet 5 mg PO DAILY Qty: 0 0RF apixaban 5 mg tablet 5 mg PO BID Qty: 30 0RF Rx Instructions: start 08/18/2022. insulin glargine [Lantus Solostar U-100 Insulin] 100 unit/mL (3 mL) insulin pen 20 unit subcut QPM Qty: 15 0RF insulin lispro [Humalog KwikPen Insulin] 100 unit/mL Insulin Pen See Protocol subcut TIDAC Qty: 0 0RF Protocol: 3. Sliding Scale Insulin Med Dosing Condition: 150-189 mg/dl = 1 unit Condition: 190-229 mg/dl = 2 units Condition: 230-269 mg/dl = 3 units Condition: 270-309 mg/dl = 4 units Condition: 310-349 mg/dl = 5 units Condition: 350-399 mg/dl = 6 units Condition: 400-449 mg/dl = 7 units Condition: Greater than 449 call physician Protocol Text: - Use for Total Daily Dose of Insulin 37-55 units - Obsese, infected, or steroid patients MEDIUM DOSING ALGORITHIM Primary Care Provider: Юлия Jean-Baptiste Referrals: Юлия Jean-Baptiste, [Primary Care Provider] - Disposition Disposition: Acute Care Hospital [facility]
--- NOTE | 2023-02-20 10:04 | RAD_ITS ---
STUDY: X-RAY - RIGHT FOOT CLINICAL: Female, 82 years old. Infection great toes TECHNIQUE: 3 view(s) of the foot. COMPARISON: Comparison is made with prior study dated November 01, 2020. FINDINGS: There is a plantar calcaneal spur. Charcot deformity of the midfoot with flattening of the arch. Normal metatarsi. Prior amputation of the great toe as well as the phalanges of the third toe. Normal second through fifth metatarsophalangeal joints. Normal interphalangeal joints and phalanges of the lesser toes. Diffuse soft tissue swelling. Vascular calcification. RAD/Foot min 3 Views IMPRESSION: Charcot deformity of the midfoot. Prior amputation of the great toe and third toe. Diffuse soft tissue swelling. Electronically Signed: Cuco Manuel MD at 11:13 EST ,
--- NOTE | 2023-02-20 10:06 | RAD_ITS ---
STUDY: X-RAY - LEFT FOOT CLINICAL: Female, 82 years old. INFECTION GREAT TOES TECHNIQUE: 3 view(s) of the foot. COMPARISON: None. FINDINGS: There is a plantar calcaneal spur. Normal visualized subtalar, talonavicular, calcaneocuboid, tarsal and tarsometatarsal articulations. The patient is status post resection of the mid and distal portion of the first metatarsal and first toe. Degenerative changes of the second and third metacarpal tarsal phalangeal joints. There is evidence of a erosion of the tip of the distal phalanx of the second toe. Osteomyelitis should be ruled out. Soft tissue swelling. Vascular calcification. RAD/Foot min 3 Views IMPRESSION: Soft tissue swelling. Vascular calcification. Prior amputation of the mid and distal portion of the first metatarsal and great toe. Erosive changes seen in the distal portion of the distal pharynx of the second toe with overlying soft tissue swelling suggestive of osteomyelitis. Electronically Signed: Cuco Manuel MD at 11:11 EST ,
[2023-02-20 10:33] LABS: Absolute Lymphocyte Count 3.54 X10^3/uL (0.83-4.51); Absolute Neutrophil Count 8.9 X10^3/uL (2.0-7.7); Basophil# 0.12 X10^3/uL; Basophil% 0.8 % (0-1); Eosinophil# 0.17 X10^3/uL; Eosinophils% 1.2 % (0-5); Hemoglobin 16.2 g/dL (12.0-15.0); Lymphocyte # 3.54 X10^3/ul (0.83-4.51); Lymphocyte % 24.8 % (19-41); Mean Corp Hgb Conc 33.1 g/dL (32-36); Mean Corpuscular Hgb 29.3 pg (27.0-32.0); Mean Corpuscular Volume 88.8 fL (81-99); Monocyte# 1.41 X10^3/uL; Monocyte% 9.9 % (0-10); NRBC Flagged by Analyzer 0 % (0-5); Neutrophil # 8.87 X10^3/uL (2.7-7.7); Neutrophil % 62.3 % (47-70); Platelet Count 238 K/mm3 (150-450); RBC Distribution Width CV 13.9 % (11.6-14.6); RBC Distribution Width SD 44.8 fl (35.1-43.9); Red Blood Count 5.52 M/mm3 (4.2-5.4); White Blood Count 14.3 K/mm3 (4.4-11.0)
[2023-02-20 10:50] LABS: Anion Gap 6 (5-15); BUN 21 mg/dL (7-18); BUN/Creat Ratio 13.9 RATIO (10-20); Calcium,Total 9.3 mg/dL (8.5-10.1); Chloride 105 mmol/L (98-107); Creatinine, Serum 1.51 mg/dL (0.55-1.02); EST Glomerular Filtration Rate 35 mL/min (>60); Est Glom Filt Rate - Afr Amer 42 mL/min (>60); Glucose 331 mg/dL (74-106); Potassium 4.1 mmol/L (3.5-5.1); Sodium Level 133 mmol/L (136-145)
[2023-02-20] MEDS: 0.9% Normal Saline (1000mL) 1,000 ML 80 ML IV ×2 (10:58→21:49)
[2023-02-20] MEDS: Ertapenem Sod 1 GM in 0.9% Normal Saline (50mL MB+) 50 ML IV (10:58)
--- NOTE | 2023-02-20 13:09 | ART_ITS ---
Reason For Study: Ulcer Procedure A bilateral lower extremity continuous wave Doppler with analog waveform analysis,segmental pressures,and ankle brachial indexes without exercise. Left Segmental Pressures Left thigh = >254mmHg. Left calf = 118mmHg. Left posterior tibial artery = 85mmHg. Left dorsalis pedis artery = 117mmHg. The left dorsalis pedis waveforms are monophasic. The left posterior tibial artery waveforms are monophasic. Right Segmental Pressures Right brachial= 219mmHg. Right calf = >254mmHg. Right posterior tibial artery = 150mmHg. Right dorsalis pedis artery = 187mmHg. The right dorsalis pedis waveforms are biphasic. The right posterior tibial artery waveforms are monophasic. Indices The right ankle brachial index by the dorsalis pedis is 0.85. The right ankle brachial index by the posterior tibial artery is 0.68. The left ankle brachial index by the dorsalis pedis is 0.53. The left ankle brachial index by the posterior tibial artery is 0.39. VL/Lower Ext Art Exam w/o Exercis Interpretation Summary Technically difficult examination due to limitation of areas that can be studie d. Right posterior tibial and dorsalis pedis ankle-brachial indices are abnormal a t 0.68 and 0.85 respectively with monophasic and biphasic Doppler waveforms consistent with mod erately severe arterial occlusive disease. Abnormal left lower extremity posterior tibialis and dorsalis pedis ankle-brach ial indices of 0.39 and 0.53 respectively with monophasic waveforms at each site consistent with se melonie arterial occlusive disease. Ordering Physician: Joshua Munoz Referring Physician: Юлия Jean-Baptiste Performed By: Bridgett Nguyen RVT
[2023-02-20 13:59] LABS: Erythrocyte Sedimentation Rate 64 mm/hr (0-30); Polychromasia 14.3
--- NOTE | 2023-02-20 14:54 | WOUNDNOTE ---
wound photo: right 2nd toe
--- NOTE | 2023-02-20 14:54 | WOUNDNOTE ---
wound photo: left 2nd toe
--- NOTE | 2023-02-20 14:55 | WOUNDNOTE ---
wound photo: abdomen
--- NOTE | 2023-02-20 15:56 | PCM.PN.BLA ---
Assessment & Plan Assessment/Plan (1) Granulation of wound bed: (2) Spitting suture: QUALIFIERS: Encounter type: initial encounter Qualified Code(s): T81.30XA - Disruption of wound, unspecified, initial encounter PLAN: Plan Patient was admitted for diabetic foot infection. Patient is seeing Verito, wound/ostomy nurse, due to the patient having a colostomy. Patient was noted to have a spitting suture at her midline incision, inferior aspect. I went ahead and trimmed the suture and removed the entire suture. I treated this area with silver nitrate. Patient has an area superior to this area on the midline incision. This area has been treated previously by Dr. Wilson. Removing Nurolon suture material and treated with cautery. Patient was also using Silvadene to this area. She was last evaluated in our office on 11/13/21. The superior hypergranulated area was probed at bedside which lead to some bleeding and small blood clots expressed. This was also treated with silver nitrate and pressure dressing was applied. PAtient may follow-up with our office as an outpatient once discharged. Visit Charges Inpatient E&M: 19555 Init Hosp L1
--- NOTE | 2023-02-20 16:10 | BON_PTH ---
PATIENT: DARREN SANDOVAL LOC: [facility]3 U#:[id number] AGE/SX: 82/F ROOM: PA318 RE02/20/[address]: Dr. Jillian Nj DO : 1940 BED: 1 DIS: 02/24/2023 SPEC #: [id number] RECD: 02/21/23 08:20 STATUS: CHLOE RELynette #: [id number] MARIA ELENA: 02/20/23 16:[address]: Jillian Nj DEPT: SURGICAL PATHOLOGY RECD BY: Dorita Rosario ENTERED: 02/21/23 09:39 SP TYPE: Bone OTHR DR: Dr. Joshua Munoz, DPM DO Dr. Blas Burnette DO Tissues: A - Toe, NOS B - Toe, NOS Procedures: Decalcification bone/plaque Surgery Specimen Level IV HEADER OPERATION: Amputation toe second digit left and second digit right PRE-OP DIAGNOSIS: Osteomyelitis right second toe, osteomyelitis left second toe TISSUE SUBMITTED: A - Bone left second toe, B - Bone right second toe MICROSCOPIC DIAGNOSIS A. Bone left second toe, biopsy: A piece of bone with acute osteomyelitis. B. Bone right second toe, biopsy: A piece of bone with mild chronic inflammation and reactive changes. SJ:delisa 02/26/2023 MICROSCOPIC DESCRIPTION Slides are reviewed. GROSS DESCRIPTION A - Received in fixative is one container labeled with the patient's name and designated Bone left second toe. The specimen consists of an elongated fragment of almazan bone measuring 2.3 x 0.6 x 0.2 cm. The specimen is totally submitted in one cassette after decalcification. B - Received in fixative is one container labeled with the patient's name and designated Bone right second toe. The specimen consists of an irregular fragment of almazan-white bone measuring 1.5 x 1.0 x 0.8 cm. The specimen is sectioned and totally submitted in one cassette after decalcification. / AM:delisa 02/24/2023 TC:2 CPT: 32170 x2, 63049 x2
--- NOTE | 2023-02-20 16:30 | HP.PCM.HOS_ITS ---
HPI - General General Date of Admission: 02/20/23 Date of Service: 02/20/23 Chief Complaint: Neuropathic bilateral second toe infection HPI Narrative DARREN SANDOVAL, is a 82 F who presents to the emergency room at [facility] after being sent in for evaluation of bilateral second toe infections by her evp head of [facility] [employer] Dr. Munoz, he felt that the patient should be admitted to the hospital for further treatment including surgical debridement/amputation of the toes. Lab was obtained in the emergency room and it revealed an elevated white blood cell count of 14.3, hemoglobin was 16.2, creatinine was elevated at 1.51, BUN was 21, and sodium was 133. Patient's glucose was 331. C-reactive protein was 38.4. X-ray of the right foot showed a Charcot deformity of the midfoot with prior amputation of the great toe and third toe, there is noted to be diffuse soft tissue swelling. X-ray of the left foot showed soft tissue swelling, there is prior amputation of the mid and distal portion of the first metatarsal and great toe, erosive changes are seen in the distal portion of the distal phalanx of the second toe with overlying soft tissue swelling suggestive of osteomyelitis. Lower extremity arterial studies were performed, there was noted to be right posterior tibial and dorsalis pedis ankle-brachial indexes that are abnormal at 0.68 and 0.85 respectively consistent with moderately severe arterial occlusive disease. Left lower extremity posterior tibialis and dorsalis pedis ankle- brachial index is 0.39 and 0.53 respectively are consistent with severe arterial occlusive disease. Patient was given IV Invanz in the emergency room, patient will be admitted to [place] [address] and be seen by podiatry in consultation, most likely she will undergo some sort of surgical procedure night or tonight or tomorrow. According to the patient's daughter who was present at the time of my examination, patient does not ambulate at assisted living. [facility] Medical History Abdominal pain Acute ischemic stroke Arthritis Back pain Bilateral leg pain Breast lump in female Cardiology follow-up encounter Cataracts, bilateral Chronic atrial fibrillation CKD (chronic kidney disease) Colovaginal fistula Colovesical fistula Controlled type 2 diabetes mellitus with hyperglycemia Delayed wound healing Diabetes Dietary restriction Diverticulitis large intestine Diverticulosis Heart failure High blood pressure High cholesterol History of diverticulitis History of echocardiogram History of edema History of heart attack HLD (hyperlipidemia) Ileostomy in place Kidney stones Loss of hearing Non-smoker Open wound Osteoarthritis Peripheral arterial disease Rheumatoid arthritis Shortness of breath on exertion Type 2 diabetes mellitus with diabetic polyneuropathy Ulcer of right foot with necrosis of bone Ulcer of right lower extremity with muscle involvement without evidence of necrosis Unspecified protein-calorie malnutrition Wears glasses Home Medications glyburide 5 mg tablet 2.5 mg PO DAILY 07/04/22 [History Last Taken Unknown] acetaminophen 325 mg tablet 650 mg (2 x 325 mg) PO Q6H PRN PRN Pain 1-10 Or Fever>100.7 #0 tabs 08/13/22 [Rx Last Taken Unknown] amlodipine 5 mg tablet 5 mg PO DAILY #0 tabs 08/13/22 [Rx Last Taken Unknown] apixaban 5 mg tablet 5 mg PO BID #30 tabs 08/13/22 [Rx Last Taken Unknown] insulin glargine 100 unit/mL (3 mL) subcutaneous pen (Lantus Solostar U-100 Insulin) 20 unit (0.2 mL) subcut QPM #15 mL 08/13/22 [Rx Last Taken Unknown] insulin lispro 100 unit/mL subcutaneous pen (Humalog KwikPen (U-100) Insulin) See Protocol subcut TIDAC #0 mL 08/13/22 [Rx Last Taken Unknown] Allergy/AdvReac Type Severity Reaction Status Date / Time adhesive Allergy Unknown Verified 08/11/22 13:33 bacitracin zinc Allergy Rash Verified 08/11/22 13:33 [From Neosporin ([id number])] metronidazole Allergy ALLERGY Verified 08/11/22 13:33 neomycin sulfate Allergy Rash Verified 08/11/22 13:33 [From Neosporin ([id number])] polymyxin B Allergy Rash Verified 08/11/22 13:33 [From Neosporin ([id number])] prednisolone acetate, Allergy ALLERGY Verified 08/11/22 13:33 micronized simvastatin Allergy ALLERGY Verified 08/11/22 13:33 tramadol [From Ultram] Allergy ALLERGY Verified 08/11/22 13:33 amoxicillin [From Augmentin] AdvReac Nausea/Vom/ Verified 08/11/22 13:33 Diarrhea atorvastatin calcium AdvReac Pain in Verified 08/11/22 13:33 [From Lipitor] joints clavulanic acid AdvReac Nausea/Vom/ Verified 08/11/22 13:33 [From Augmentin] Diarrhea fenofibrate nanocrystallized AdvReac Upset Verified 08/11/22 13:33 [From Tricor] Stomach flurbiprofen AdvReac Upset Verified 08/11/22 13:33 Stomach gemfibrozil AdvReac Upset Verified 08/11/22 13:33 Stomach glipizide [From Glucotrol] AdvReac Upset Verified 08/11/22 13:33 Stomach pravastatin AdvReac Pain in Verified 08/11/22 13:33 joints Family History Mother Diabetes Father Hypertension CVA (cerebral vascular accident) Brother Lung cancer Sister Breast cancer COPD (chronic obstructive pulmonary disease) Surgical History History of appendectomy History of cholecystectomy History of heart bypass surgery History of knee replacement History of partial colectomy (~05/2021) Hx of colonoscopy S/P CABG (coronary artery bypass graft) S/P hysterectomy Social History (Updated 02/20/23 @ 10:29 by Susan Castro) household members: family housing: snf Smoking Status: Never smoker alcohol intake: current alcohol intake frequency: other substance use type: does not use additional social history: USES [employer] ROS ROS Narrative Review of systems was unobtainable secondary to patient's dementia Review of Systems ROS Unobtainable: due to mental condition Vital Signs Vital Signs Vital Signs: 02/20/23 09:43 02/20/23 11:23 02/20/23 12:08 Temperature 97.5 F L 98.3 F 98.2 F Temperature Source Temporal Temporal Temporal Pulse Rate 115 H 104 H 100 Respiratory Rate 20 H 16 16 Blood Pressure 167/124 H 173/98 H 189/119 H Blood Pressure Mean 138 123 142 Blood Pressure Source Blood Pressure Position Blood Pressure Location Pulse Ox 100 97 97 Oxygen Delivery Method Room Air Room Air Room Air 02/20/23 12:08 02/20/23 12:09 02/20/23 14:07 Temperature 97.6 F L Temperature Source Oral Pulse Rate 100 100 91 Respiratory Rate 16 16 18 Blood Pressure 189/119 H 189/119 H 180/83 H Blood Pressure Mean 142 142 115 Blood Pressure Source Monitor Blood Pressure Position Semi-Fowlers Blood Pressure Location Left Arm Pulse Ox 97 96 99 Oxygen Delivery Method Room Air Room Air Weight Weight: 78.075 kg Body Mass Index (BMI) 29.5 Physical Exam Const alert and no apparent distress Constitutional Narrative: Patient is confused, she is pleasant, she follows some commands General Appearance: cooperative, well kempt and well developed Orientation / Consciousness: awake and confused HEENT normocephalic, head/scalp atraumatic, hearing grossly normal bilaterally and moist oral mucous membranes Eyes PERRL, EOMs intact bilaterally and conjunctivae normal Neck supple, no JVD, thyroid normal and no carotid bruits General: trachea midline Resp normal respiratory effort, no retractions, no use of accessory muscles and clear to auscultation bilaterally Auscultation: Negative for rales, rhonchi or wheezes Cardio S1 normal heart sound, S2 normal heart sound, no murmurs, no rub and no gallops Cardio Narrative: Heart rate and rhythm is irregular GI GI Narrative: There are several scars noted over the anterior abdominal wall on the midline Extremity Extremity Narrative: There is noted to be severe redness and edema of the patient's second toes bilaterally, the tip of the patient's left second toe appears to show bone, there are previous amputated areas of toes on both feet noted. There is a Charcot deformity of the right foot noted Neuro CN's II-XII intact bilaterally Neuro Narrative: Patient is confused, she does not carry on a conversation with this examiner Sensorium / Orientation: awake and alert Speech: speech normal Psych affect normal Results Lab / Micro Data 02/20/23 10:25 02/20/23 10:25 Labs: Laboratory Results - last 24 hr 02/20/23 10:25: WBC 14.3 H, RBC 5.52 H, Hgb 16.2 H, Hct 49.0 H, MCV 88.8, MCH 29.3, MCHC 33.1, RDW Std Deviation 44.8 H, RDW Coeff of Monique 13.9, Plt Count 238, MPV 11.0, Immature Gran % (Auto) 1.000 H, Neut % (Auto) 62.3, Lymph % (Auto) 24.8, Maverick % (Auto) 9.9, Eos % (Auto) 1.2, Baso % (Auto) 0.8, Absolute Neuts (auto) 8.9 H, Absolute Lymphs (auto) 3.54, Nucleated RBC % 0, Polychromasia 14.3, ESR 64 H, Sodium 133 L, Potassium 4.1, Chloride 105, Carbon Dioxide 22.0, Anion Gap 6, BUN 21 H, Creatinine 1.51 H, Est GFR (MDRD) Af Amer 42 L, Est GFR (MDRD) Non-Af 35 L, BUN/Creatinine Ratio 13.9, Glucose 331 H, Calcium 9.3, C- React Prot Ext Range 38.40 H Rhythm Strip Rhythm Strip: A-fib Rate: 100 Ectopy: None Imagaing Radiology Impression Foot X-Ray 02/20/23 10:04 IMPRESSION: Charcot deformity of the midfoot. Prior amputation of the great toe and third toe. Diffuse soft tissue swelling. Electronically Signed: Cuco Manuel MD at 11:13 EST , Foot X-Ray 02/20/23 10:06 IMPRESSION: Soft tissue swelling. Vascular calcification. Prior amputation of the mid and distal portion of the first metatarsal and great toe. Erosive changes seen in the distal portion of the distal pharynx of the second toe with overlying soft tissue swelling suggestive of osteomyelitis. Electronically Signed: Cuco Manuel MD at 11:11 EST , Extremity Arterial Study 02/20/23 13:09 Interpretation Summary Technically difficult examination due to limitation of areas that can be studied. Right posterior tibial and dorsalis pedis ankle-brachial indices are abnormal at 0.68 and 0.85 respectively with monophasic and biphasic Doppler waveforms consistent with moderately severe arterial occlusive disease. Abnormal left lower extremity posterior tibialis and dorsalis pedis ankle- brachial indices of 0.39 and 0.53 respectively with monophasic waveforms at each site consistent with severe arterial occlusive disease. Ordering Physician: Joshua Munoz Referring Physician: Юлия Jean-Baptiste Performed By: Bridgett Nguyen RVT Assessment & Plan Assessment/Plan (1) Osteomyelitis of second toe of left foot: PLAN: Plan 1. Bilateral second toe neuropathic infections-patient was admitted to [place] [address], she will be seen in consultation by podiatry, according to nursing, cultures of the patient's toes were obtained by podiatry today in their office. It is unknown whether the patient will go to surgery tonight or tomorrow. Patient was placed on meropenem on admission. 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 #8 chronic kidney disease stage IIIb secondary to type 2 diabetes-labs will be monitored as needed, complicates care, medical course, recovery, and prognosis Total clinical time spent by myself addressing the patient's medical issues, reviewing all of her data, and collaborating with patient's care team: 75 minute s Charges/Coding Visit Charges Inpatient E&M: 09437 Init Hosp L3
[2023-02-20 16:59] LABS: Bedside Glucose 185 mg/dL (74-106)
[2023-02-20] MEDS: Insulin Lispro 100 UNIT/ML INSULN.PEN SC ×2 (16:59→21:46)
[2023-02-20] MEDS: amLODIPine 5 MG Tablet PO (17:31)
--- NOTE | 2023-02-20 18:10 | NURSING ---
Pt brought to surgery via bed at this time.
--- NOTE | 2023-02-20 18:11 | CON.PCM_ITS ---
Assessment & Plan Assessment/Plan (1) Non-pressure chronic ulcer of other part of left foot with necrosis of bone: PLAN: Patient was examined evaluated. All findings were discussed with the patient. All questions were answered to the patient's satisfaction. Patient was seen in the office today had excisional debridement of the full- thickness ulceration down to bone with culture taken. Culture is pending. Noninvasive vascular studies were taken today in the hospital after admission. -Lower extremity arterial studies were performed, there was noted to be right posterior tibial and dorsalis pedis ankle-brachial indexes that are abnormal at 0.68 and 0.85 respectively consistent with moderately severe arterial occlusive disease. Left lower extremity posterior tibialis and dorsalis pedis ankle- brachial index is 0.39 and 0.53 respectively are consistent with severe arterial occlusive disease. -Recommend vascular consult. Information was updated to the vascular surgeons physician wet process assistant head miller. Due to the nature of the patient's worsening bone infection to the left foot and concern for underlying bone infection to the right foot. Had deemed necessary to take the patient to the operating room today to perform second digit amputation to bilateral foot with advance skin flap closure. Vascular will be involved in getting perfusion down to the operative area. All risk and benefits were discussed with the patient in great detail. She is understanding and would like to move forward with surgery. The case will be under local anesthesia, today, 02/20/2023 as an add-on case. Please reach out to Dr. Munoz with any questions or concerns. Thank you for the consultation! (2) Dry gangrene: (3) Osteomyelitis of second toe of left foot: (4) Diabetes mellitus with diabetic polyneuropathy: (5) Peripheral arterial disease: PLAN: Lower extremity arterial studies were performed, there was noted to be right posterior tibial and dorsalis pedis ankle-brachial indexes that are abnormal at 0.68 and 0.85 respectively consistent with moderately severe arterial occlusive disease. Left lower extremity posterior tibialis and dorsalis pedis ankle-brachial index is 0.39 and 0.53 respectively are consistent with severe arterial occlusive disease. HPI Consult Data Date of Consult: 02/20/23 HPI Narrative Reason for Consultation: Osteomyelitis, left foot, osteomyelitis right foot HPI Narrative: DARREN SANDOVAL, is a 82 F who presents to [facility] emergency department after following up with Dr. Munoz in private office. During the patient's clinical exam today there showed concern for worsening infection to the bilateral lower extremity. The patient was treated by an outside provider with 2 rounds of oral antibiotics, failed treatment and presented today with worsening infection left greater than right. At the time of office there was excisional debridement down to bone and expression of purulence was also noted. 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 She also has extensive history of open heart surgery as well as stroke back in July 2022. Noninvasive vascular studies were obtained today in the hospital show evidence of moderate or severe disease to bilateral lower extremity. There still is a concern for amputating the patient's digit at this time however we will make sure that vascular surgery is involved with the patient's care for possible endoscopic revascularization with Dr. Philippe. Dr. Philippe PA has been updated on the case. Podiatry was consulted for concerns of worsening infection and the need for surgical intervention. [facility] Medical History (Updated 02/20/23 @ 18:[address] Joshua Munoz, EUSEBIO) Abdominal pain Acute ischemic stroke Arthritis Back pain Bilateral leg pain Breast lump in female Cardiology follow-up encounter Cataracts, bilateral Chronic atrial fibrillation CKD (chronic kidney disease) Colovaginal fistula Colovesical fistula Controlled type 2 diabetes mellitus with hyperglycemia Delayed wound healing Diabetes Dietary restriction Diverticulitis large intestine Diverticulosis Heart failure High blood pressure High cholesterol History of diverticulitis History of echocardiogram History of edema History of heart attack HLD (hyperlipidemia) Ileostomy in place Kidney stones Loss of hearing Non-smoker Open wound Osteoarthritis Peripheral arterial disease Rheumatoid arthritis Shortness of breath on exertion Type 2 diabetes mellitus with diabetic polyneuropathy Ulcer of right foot with necrosis of bone Ulcer of right lower extremity with muscle involvement without evidence of necrosis Unspecified protein-calorie malnutrition Wears glasses Home Medications glyburide 5 mg tablet 2.5 mg PO DAILY 07/04/22 [History Last Taken Unknown] acetaminophen 325 mg tablet 650 mg (2 x 325 mg) PO Q6H PRN PRN Pain 1-10 Or Fe teto>100.7 #0 tabs 08/13/22 [Rx Last Taken Unknown] amlodipine 5 mg tablet 5 mg PO DAILY #0 tabs 08/13/22 [Rx Last Taken Unknown] apixaban 5 mg tablet 5 mg PO BID #30 tabs 08/13/22 [Rx Last Taken Unknown] insulin glargine 100 unit/mL (3 mL) subcutaneous pen (Lantus Solostar U-100 Insulin) 20 unit (0.2 mL) subcut QPM #15 mL 08/13/22 [Rx Last Taken Unknown] insulin lispro 100 unit/mL subcutaneous pen (Humalog KwikPen (U-100) Insulin) See Protocol subcut TIDAC #0 mL 08/13/22 [Rx Last Taken Unknown] Allergy/AdvReac Type Severity Reaction Status Date / Time adhesive Allergy Unknown Verified 08/11/22 13:33 bacitracin zinc Allergy Rash Verified 08/11/22 13:33 [From Neosporin ([id number])] metronidazole Allergy ALLERGY Verified 08/11/22 13:33 neomycin sulfate Allergy Rash Verified 08/11/22 13:33 [From Neosporin ([id number])] polymyxin B Allergy Rash Verified 08/11/22 13:33 [From Neosporin ([id number])] prednisolone acetate, Allergy ALLERGY Verified 08/11/22 13:33 micronized simvastatin Allergy ALLERGY Verified 08/11/22 13:33 tramadol [From Ultram] Allergy ALLERGY Verified 08/11/22 13:33 amoxicillin [From Augmentin] AdvReac Nausea/Vom/ Verified 08/11/22 13:33 Diarrhea atorvastatin calcium AdvReac Pain in Verified 08/11/22 13:33 [From Lipitor] joints clavulanic acid AdvReac Nausea/Vom/ Verified 08/11/22 13:33 [From Augmentin] Diarrhea fenofibrate nanocrystallized AdvReac Upset Verified 08/11/22 13:33 [From Tricor] Stomach flurbiprofen AdvReac Upset Verified 08/11/22 13:33 Stomach gemfibrozil AdvReac Upset Verified 08/11/22 13:33 Stomach glipizide [From Glucotrol] AdvReac Upset Verified 08/11/22 13:33 Stomach pravastatin AdvReac Pain in Verified 08/11/22 13:33 joints Family History (Updated 02/20/23 @ 18:[address] Joshua Munoz DPM) Mother Diabetes Father Hypertension CVA (cerebral vascular accident) Brother Lung cancer Sister Breast cancer COPD (chronic obstructive pulmonary disease) Other Peripheral arterial disease Surgical History History of appendectomy History of cholecystectomy History of heart bypass surgery History of knee replacement History of partial colectomy (~05/2021) Hx of colonoscopy S/P CABG (coronary artery bypass graft) S/P hysterectomy Social History household members: family housing: longterm Smoking Status: Never smoker alcohol intake: current alcohol intake frequency: other substance use type: does not use additional social history: USES [employer] Physical Exam Narrative Vascular: DP and PT pulses are faintly palpable. CFT is brisk to the bilateral lower extremity. Nonpitting edema appreciated to the bilateral lower extremity. Skin temperature great is warm to warm from proximal ankle to distal digits. Evidence of increased warmth appreciated to the bilateral digits. Neurological: Light touch intact. Protective sensation is absent. Patient does not respond to painful stimuli. Dermatological:Evidence of full-thickness ulceration with probe to bone to the left second digit. There is concern for progressive osteomyelitis. There is also evidence of eschar and concern for underlying osteomyelitis to the right second digit. Dactylitis appreciated to the left second digit. Evidence of healed incision status post first ray amputation with no sign of surgical wound dehiscence. Musculoskeletal: No pain on palpation to bilateral lower extremity. No pain with calf pression. Lab / Micro Data 02/20/23 10:25 02/20/23 10:25 Labs: Laboratory Results - last 24 hr 02/20/23 10:25: WBC 14.3 H, RBC 5.52 H, Hgb 16.2 H, Hct 49.0 H, MCV 88.8, MCH 29.3, MCHC 33.1, RDW Std Deviation 44.8 H, RDW Coeff of Monique 13.9, Plt Count 238, MPV 11.0, Immature Gran % (Auto) 1.000 H, Neut % (Auto) 62.3, Lymph % (Auto) 24.8, [place] % (Auto) 9.9, Eos % (Auto) 1.2, Baso % (Auto) 0.8, Absolute Neuts (auto) 8.9 H, Absolute Lymphs (auto) 3.54, Nucleated RBC % 0, Polychromasia 14.3, ESR 64 H, Sodium 133 L, Potassium 4.1, Chloride 105, Carbon Dioxide 22.0, Anion Gap 6, BUN 21 H, Creatinine 1.51 H, Est GFR (MDRD) Af Amer 42 L, Est GFR (MDRD) Non-Af 35 L, BUN/Creatinine Ratio 13.9, Glucose 331 H, Calcium 9.3, C- React Prot Ext Range 38.40 H 02/20/23 16:17: POC Glucose 185 H Rhythm Strip Rhythm Strip: A-fib Rate: 100 Ectopy: None Imagaing Radiology Impression Foot X-Ray 02/20/23 10:04 IMPRESSION: Charcot deformity of the midfoot. Prior amputation of the great toe and third toe. Diffuse soft tissue swelling. Electronically Signed: Cuco Manuel MD at 11:13 EST , Foot X-Ray 02/20/23 10:06 IMPRESSION: Soft tissue swelling. Vascular calcification. Prior amputation of the mid and distal portion of the first metatarsal and great toe. Erosive changes seen in the distal portion of the distal pharynx of the second toe with overlying soft tissue swelling suggestive of osteomyelitis. Electronically Signed: Cuco Manuel MD at 11:11 EST , Extremity Arterial Study 02/20/23 13:09 Interpretation Summary Technically difficult examination due to limitation of areas that can be studied. Right posterior tibial and dorsalis pedis ankle-brachial indices are abnormal at 0.68 and 0.85 respectively with monophasic and biphasic Doppler waveforms consistent with moderately severe arterial occlusive disease. Abnormal left lower extremity posterior tibialis and dorsalis pedis ankle- brachial indices of 0.39 and 0.53 respectively with monophasic waveforms at each site consistent with severe arterial occlusive disease. Ordering Physician: Joshua Munoz Referring Physician: Юлия Jean-Baptiste Performed By: Bridgett Nguyen RVT
--- NOTE | 2023-02-20 18:11 | PCM.OPRPT ---
Problems Associated Problem List Diagnoses (1) Osteomyelitis of second toe of left foot: (2) Diabetes mellitus with diabetic polyneuropathy: (3) 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: Report of Operation Date of Procedure: 02/20/23 Pre-Operative Diagnosis: 1. Osteomyelitis, second digit, left foot 2. Dry gangrene, second digit, right foot 3. Diabetes mellitus type 2 with peripheral neuropathy history of amputations Post-Operative Diagnosis: 1. Osteomyelitis, second digit, left foot 2. Dry gangrene, second digit, right foot 3. Diabetes mellitus type 2 with peripheral neuropathy history of amputations Surgery/Procedure Performed:: 1. Partial excision of bone, second digit, left foot 2. Partial excision of bone, second digit, right foot 3. Advancement flap closure, left foot 4. Advancement flap closure, right foot Description of Surgical Findings:: 1. Evidence of periosteal reaction appreciated to the distal phalanx, second digit, left foot 2. Evidence of periosteal reaction appreciated to the distal phalanx, second digit, right foot 3. Advancement flap closure with excellent reapproximation with suture, bilateral foot Surgeon: Joshua Munoz sales office assistant: None Type of Anesthesia: Local Anesthesiologist: Dipak Ch Special Medications: None Specimen's removed: 1. Second digit, left foot 2. Second digit, right foot Drains: None Estimated Blood Loss (mL): 30 mL Fluids Replaced: Per anesthesia Description of Procedure: Indications For Operation: Mrs. Vargas is a 82-year-old diabetic female who was admitted to [facility] for concern of worsening bone infection to the bilateral lower extremity. Patient admits to being a diabetic with a past amputations to the bilateral lower extremity. Patient was seen by an outside provider and failed 2 rounds of oral antibiotics. She was seen today in private office after thorough examination and discussion the patient was educated to present to the emergency department for admission to the hospital to perform procedure as noted above under local anesthesia. Due to nature of the patient's worsening infection it had been necessary at this time to send the patient to the hospital to be admitted under medicine, get IV antibiotics, noninvasive vascular studies, consultation for vascular surgery as well as perform bilateral seconded amputation with flap closure under local anesthesia to help relieve her constant pain and worsening infection. The nature of the problem, anticipated procedures, postop recovery/convalences and risk/complications include but not limited to infection, wound healing complications, hypertrophic scarring, numbness, tingling, chronic pain, CRPS, over and under correction, recurrence of deformity, DVT and or PE and the need for further surgery have been discussed in great detail with the patient. All questions have been answered to the patient's satisfaction. There are no guarantees given as to the outcome of the procedure. Description of Procedure: The patient was brought into the operating room and placed on the operating table in supine position. The bilateral lower extremity was blocked using approximately 20 cc (10 cc to each extremity) of one-to-one mixture of 1% Xylocaine plain with 0.5% Marcaine plain. No tourniquet was used. Next, bilateral lower extremity was prepped and draped in normal aseptic manner. Next, a timeout was then undertaken verifying the correct patient, extremity, visibility of preoperative markings, availability of the equipment. Next, attention was directed to the left lower extremity, second digit. Using a sterile skin marker the incision was marked to the level of the second metatarsal phalangeal joint and over the second digit. Using a #15 blade a full-thickness lesion down to bone was carried out along the incision marking. Continued blunt dissection was carefully done to help release all soft tissue structures around the second digit bones. Partial excision of bone was carried out and all 3 bones from the second digit were removed without incident. Bone samples were taken from the left second digit and passed the back table to be sent off for pathology and microbiology culture and sensitivity. Continue undermining was carried out proximally to allow for advancement Flap closure. There showed no evidence of loss of bone architecture to the second metatarsal and showed evidence of good integrity when palpated with a [place]. Incision was flushed with copious oz of warm saline. This the skin was remodeled for advancement flap closure and the deep layer was reapproximated with 3-0 Vicryl in buried suture technique. The skin was reapproximated with advancement flap closure and again remodeled and closed with 4-0 nylon in simple interrupted suture technique. Next, attention was directed to the right lower extremity, second digit. Using a sterile skin marker the incision was marked to the level of the second metatarsal phalangeal joint and over the second digit. Using a #15 blade a full-thickness lesion down to bone was carried out along the incision marking. Continued blunt dissection was carefully done to help release all soft tissue structures around the second digit bones. Partial excision of bone was carried out and all 3 bones from the second digit were removed without incident. Bone samples were taken from the right second digit and passed the back table to be sent off for pathology and microbiology culture and sensitivity. Continue undermining was carried out proximally to allow for advancement Flap closure. There showed no evidence of loss of bone architecture to the second metatarsal and showed evidence of good integrity when palpated with a [place]. Incision was flushed with copious oz of warm saline. This the skin was remodeled for advancement flap closure and the deep layer was reapproximated with 3-0 Vicryl in buried suture technique. The skin was reapproximated with advancement flap closure and again remodeled and closed with 4-0 nylon in simple interrupted suture technique. Bilateral incisions were dressed with Betadine soaked Adaptic, dry sterile dressing and a light single layer [place] compression bandage was donned. The patient tolerated the procedure and anesthesia well and apparent satisfactory condition and was transported to the PACU for further monitoring prior to discharge back to the floor. Vital signs stable and vascular status intact to all digits bilateral. Post Operative Plan: Weightbearing: Partial weightbearing to heel with surgical shoe and assistance to bilateral lower extremity Antibiotics: Meropenem per medicine DVT Prophylaxis: Heparin 5000 units Q12 Mosher: None Dressing: Betadine soaked Adaptic, dry sterile dressing and a light single layer [place] compression bandage, bilateral X-Rays: Post-operative films taken on the operating room. Pain Medication: Tylenol, oxycodone Follow-up: Patient will follow-up [address] Munoz in private office. Grafts/Implants Used: None Complications None Admit VTE Documentation VTE Present on Admission: Yes VTE Mechan Device Prophylaxis: SCD's VTE Pharm Prophylaxis ordered?: Yes
[2023-02-20] MEDS: Bupivacaine Mpf 0.5% 30 ML VIAL (19:05)
--- NOTE | 2023-02-20 19:05 | RAD_ITS ---
STUDY: X-RAY RIGHT FOOT, THIRD TOE REASON FOR EXAM: Female, 82 years old. 3RD TOE AMPUTATION TECHNIQUE: 2 view(s) of the toe were obtained. COMPARISON: 02/20/2023 FINDINGS: 4 seconds of fluoroscopy of the second digit was utilized operating room during the interpretation and a single image is submitted for interpretation.. RAD/Toe(s) Min 2 Views IMPRESSION: Fluoroscopy during indication the second digit. Electronically Signed: Roel Perez MD at 23:14 EST ,
--- NOTE | 2023-02-20 19:05 | RAD_ITS ---
STUDY: X-RAY LEFT FOOT, SECOND TOE REASON FOR EXAM: Female, 82 years old. 2ND TOE AMPUTATION TECHNIQUE: 2 view(s) of the toe were obtained. COMPARISON: None. FINDINGS: 4 seconds of fluoroscopy of the second digit was utilized operating room during interpretation of a single image is submitted for interpretation.. RAD/Toe(s) Min 2 Views IMPRESSION: Fluoroscopy during second toe amputation. Electronically Signed: Roel Perez MD at 23:13 EST ,
[2023-02-20] MEDS: Heparin Injection (Vial) 5,000 UNIT/ML VIAL 5000 UNIT SC (21:45)
[2023-02-20] MEDS: 0.9% Saline Lock 10 ML Syringe IV (21:53)
[2023-02-20 22:27] LABS: Bedside Glucose 186 mg/dL (74-106)
[2023-02-21 00:02] VITALS: BP 137/69; PULSE 88; RESP 18; TEMP 36.8; O2SAT 98
[2023-02-21 05:13] VITALS: BP 129/71; PULSE 77; RESP 18; TEMP 36.8; O2SAT 99
[2023-02-21] MEDS: Meropenem 1 GM in 0.9% Normal Saline (100mL MB+) 100 ML IV ×2 (05:26→22:42)
[2023-02-21 06:20] LABS: Absolute Lymphocyte Count 2.51 X10^3/uL (0.83-4.51); Absolute Neutrophil Count 5.2 X10^3/uL (2.0-7.7); Basophil# 0.05 X10^3/uL; Basophil% 0.5 % (0-1); Eosinophil# 0.17 X10^3/uL; Eosinophils% 1.9 % (0-5); Hematocrit 41.2 % (37-47); Hemoglobin 13.4 g/dL (12.0-15.0); Lymphocyte # 2.51 X10^3/ul (0.83-4.51); Lymphocyte % 27.5 % (19-41); Mean Corp Hgb Conc 32.5 g/dL (32-36); Mean Corpuscular Hgb 28.9 pg (27.0-32.0); Mean Corpuscular Volume 88.8 fL (81-99); Mean Platelet Vol. 10.7 fl (6.2-12.0); NRBC Flagged by Analyzer 0 % (0-5); Neutrophil # 5.24 X10^3/uL (2.7-7.7); Neutrophil % 57.4 % (47-70); Platelet Count 176 K/mm3 (150-450); RBC Distribution Width CV 13.7 % (11.6-14.6); RBC Distribution Width SD 44.8 fl (35.1-43.9); Red Blood Count 4.64 M/mm3 (4.2-5.4); White Blood Count 9.1 K/mm3 (4.4-11.0)
[2023-02-21 07:17] LABS: Anion Gap 5 (5-15); BUN 16 mg/dL (7-18); BUN/Creat Ratio 13.1 RATIO (10-20); Calcium,Total 8.5 mg/dL (8.5-10.1); Chloride 109 mmol/L (98-107); Creatinine, Serum 1.22 mg/dL (0.55-1.02); EST Glomerular Filtration Rate 45 mL/min (>60); Est Glom Filt Rate - Afr Amer 54 mL/min (>60); Glucose 99 mg/dL (74-106); Potassium 3.9 mmol/L (3.5-5.1); Sodium Level 137 mmol/L (136-145)
[2023-02-21 07:27] LABS: Bedside Glucose 112 mg/dL (74-106)
--- NOTE | 2023-02-21 08:04 | PCM.PN.HOSP ---
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 He felt that the patient should be admitted to the hospital for further treatment including surgical debridement and possible amputation of her toes. Vital signs on presentation were demonstrated temperature of 97.5, heart rate was 111, blood pressure was 167/124 with repeat at 180/83, respiratory rate was 20 and oxygen saturations were 100% on room air. Her CBC showed a leukocytosis with a white count of 14.3 but no left shift. Her ESR was elevated at 64. Her chemistry panel showed elevated serum creatinine 1.51 with a baseline of 1.25-1.45. Her serum glucose was markedly elevated at 331 and her CRP was 38.4. She failed outpatient antibiotics twice. She was started on antibiotics and seen and evaluated by Dr. Munoz who took her for partial excision of bone of the second digit of bilateral feet as well as advanced flap closure of bilateral feet on 02/20/2023. 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 Patient has multiple allergies to antibiotics and have was therefore started on meropenem. Patient currently is denying any pain. States she would like to go home soon as possible however the dimension quarry supervisor did not think she be ready to early next week. Awaiting vascular and infectious disease consults. Objective Data Objective Data Vital Signs: Vital Signs Temp Pulse Resp BP Pulse Ox O2 Del Method 98.2 F 77 18 129/71 H 99 Room Air 02/21/23 05:13 02/21/23 05:13 02/21/23 05:13 02/21/23 05:13 02/21/23 05:13 02/21/23 05:13 Oxygen Delivery Method Room Air Weight: 78.075 kg Body Mass Index (BMI) 29.5 Intake & Output: Intake and Output for Last 24 Hours 02/19/23 02/20/23 02/21/23 23:59 23:59 23:59 Intake Total 1168 / 1168 Output Total 875 / 875 800 / 800 Balance 293 / 293 -800 / -800 Lab / Micro Data 02/21/23 05:58 02/21/23 05:58 Labs: Laboratory Results - last 24 hr 02/20/23 10:25: WBC 14.3 H, RBC 5.52 H, Hgb 16.2 H, Hct 49.0 H, MCV 88.8, MCH 29.3, MCHC 33.1, RDW Std Deviation 44.8 H, RDW Coeff of Monique 13.9, Plt Count 238, MPV 11.0, Immature Gran % (Auto) 1.000 H, Neut % (Auto) 62.3, Lymph % (Auto) 24.8, [place] % (Auto) 9.9, Eos % (Auto) 1.2, Baso % (Auto) 0.8, Absolute Neuts (auto) 8.9 H, Absolute Lymphs (auto) 3.54, Nucleated RBC % 0, Polychromasia 14.3, ESR 64 H, Sodium 133 L, Potassium 4.1, Chloride 105, Carbon Dioxide 22.0, Anion Gap 6, BUN 21 H, Creatinine 1.51 H, Est GFR (MDRD) Af Amer 42 L, Est GFR (MDRD) Non-Af 35 L, BUN/Creatinine Ratio 13.9, Glucose 331 H, Calcium 9.3, C-React Prot Ext Range 38.40 H 02/20/23 16:17: POC Glucose 185 H 02/20/23 21:38: POC Glucose 186 H 02/21/23 05:58: WBC 9.1, RBC 4.64, Hgb 13.4, Hct 41.2, MCV 88.8, MCH 28.9, MCHC 32.5, RDW Std Deviation 44.8 H, RDW Coeff of Monique 13.7, Plt Count 176, MPV 10.7, Immature Gran % (Auto) 0.700, Neut % (Auto) 57.4, Lymph % (Auto) 27.5, [place] % (Auto) 12.0 H, Eos % (Auto) 1.9, Baso % (Auto) 0.5, Absolute Neuts (auto) 5.2, Absolute Lymphs (auto) 2.51, Nucleated RBC % 0, Sodium 137, Potassium 3.9, Chloride 109 H, Carbon Dioxide 23.0, Anion Gap 5, BUN 16, Creatinine 1.22 H, Estim Creat Clear Calc 30.70, Est GFR (MDRD) Af Amer 54 L, Est GFR (MDRD) Non-Af 45 L, BUN/Creatinine Ratio 13.1, Glucose 99, Calcium 8.5 02/21/23 06:01: POC Glucose 112 H Radiography Diagnostic Testing: Radiology Impression Foot X-Ray 02/20/23 10:04 IMPRESSION: Charcot deformity of the midfoot. Prior amputation of the great toe and third toe. Diffuse soft tissue swelling. Electronically Signed: Cuco Manuel MD at 11:13 EST , Foot X-Ray 02/20/23 10:06 IMPRESSION: Soft tissue swelling. Vascular calcification. Prior amputation of the mid and distal portion of the first metatarsal and great toe. Erosive changes seen in the distal portion of the distal pharynx of the second toe with overlying soft tissue swelling suggestive of osteomyelitis. Electronically Signed: Cuco Manuel MD at 11:11 EST , Extremity Arterial Study 02/20/23 13:09 Interpretation Summary Technically difficult examination due to limitation of areas that can be studied. Right posterior tibial and dorsalis pedis ankle-brachial indices are abnormal at 0.68 and 0.85 respectively with monophasic and biphasic Doppler waveforms consistent with moderately severe arterial occlusive disease. Abnormal left lower extremity posterior tibialis and dorsalis pedis ankle-brachial indices of 0.39 and 0.53 respectively with monophasic waveforms at each site consistent with severe arterial occlusive disease. Ordering Physician: Joshua Munoz Referring Physician: Юлия Jean-Baptiste Performed By: Bridgett Nguyen RVT Toe X-Ray 02/20/23 19:05 IMPRESSION: Fluoroscopy during second toe amputation. Electronically Signed: Roel Perez MD at 23:13 EST Reading Location ID and State: [id number] / [employer] Tel , Service support , Toe X-Ray 02/20/23 19:05 IMPRESSION: Fluoroscopy during indication the second digit. Electronically Signed: Roel Perez MD at 23:14 EST , Rhythm Strip Rhythm Strip: A-fib Rate: 100 Ectopy: None Physical Exam Const alert, oriented x3, no apparent distress and well nourished; Negative for average body habitus Constitutional Narrative: Overweight, elderly, white female, lying in bed, appears comfortable and nontoxic HEENT head/scalp atraumatic and moist oral mucous membranes HEENT Narrative: Dentures in place, Mallampati 2-3, no thrush Head and Scalp: normocephalic Resp normal respiratory effort, no retractions, no use of accessory muscles and clear to auscultation bilaterally Auscultation: Negative for rales, rhonchi or wheezes Cardio regular rate, S1 normal heart sound, S2 normal heart sound, no murmurs, no rub, no gallops and no clicks; Negative for regular rhythm Cardio Narrative: Irregular irregular rhythm with controlled rate GI normal to inspection, nondistended, normoactive bowel sounds, soft to palpation and non-tender Extremity no clubbing, cyanosis or edema Extremity Narrative: Bilateral lower extremities with postoperative dressings in place-Dressings are clean and dry Neuro oriented x3, moves all extremities and no focal motor deficits Neuro Narrative: Sig skin decree sensation bilateral lower extremities, generalized weakness noted Sensorium / Orientation: awake, alert, oriented to person, oriented to place and oriented to time Speech: speech normal Psych affect normal Psych Narrative: Very pleasant, eye contact is good, patient interacts appropriately Assessment & Plan Assessment/Plan (1) Peripheral arterial disease: (2) Diabetes mellitus with diabetic polyneuropathy: (3) Dry gangrene: (4) Osteomyelitis of second toe of left foot: (5) 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: PLAN: Plan Diabetic/neuropathic foot infections and osteomyelitis of the second digit on bilateral lower extremities -Postop day 1 second digit resections with flaps done by podiatry -Continue IV antibiotics as ordered with meropenem and await intraoperative cultures/preoperative cultures -Patient with previous MRSA infection and therefore we will add vancomycin -Vascular studies have been done previously and notes of severe vascular disease -Vascular consultation is pending -Continue to hold Xarelto until okay from podiatry/vascular surgery standpoint to reinitiate -She is anticoagulated for chronic atrial fibrillation -Consult infectious diseases patient has multiple allergies to antibiotics to assist with discharge planning biotics -Wound care consultation Peripheral vascular disease -Markedly abnormal PVRs -Vascular surgery consultation is pending -Start aspirin 81 mg daily DM-2 -Appears to be uncontrolled -Check hemoglobin A1c -Restart home basal insulin and continue to monitor blood sugars for additional needs -SSI -Accu-Cheks -Hold home oral agents CKD stage IIIb -Baseline serum creatinine appears to be between 1.25 and 1.45 -Current serum creatinine 1.22 -Continue to monitor -Avoid nephrotoxins as able CAD/HTN/HPL -Previous history of CABG -Patient not on statin therapy secondary to allergies -Continue him on low-dose pain monitor blood pressure Persistent atrial fibrillation -Apixaban on hold until okay to reinitiate from podiatry and vascular surgery -Rate appears to be controlled without any rate controlling medications -Monitor Peripheral neuropathy -Secondary above -If patient complains of pain could consider initiation of gabapentin Obesity -Recommend weight loss -Complicates treatment, prognosis, outcomes VTE prophylaxis -Continue subcu heparin -Increase from twice daily to 3 times daily with BMI of 29.5 CODE STATUS -Currently noted is full code however unverified -Patient has been DNR CCA hiar for intubation previously -Have to verify Charges/Coding Visit Charges Inpatient E&M: 47696 Subs Hosp L2
[2023-02-21 09:25] VITALS: BP 149/64; PULSE 89; RESP 17; TEMP 36.7; O2SAT 97
[2023-02-21] MEDS: Menthol/Lanolin/Calamine/Znox 113 GM Tube 1 APPLIC TOPICAL ×2 (09:27→22:45)
[2023-02-21] MEDS: Juven (unflavored) Packet 1 PACKET PO ×2 (09:27→17:03)
[2023-02-21] MEDS: Heparin Injection (Vial) 5,000 UNIT/ML VIAL 5000 UNIT SC ×2 (09:28→22:58)
[2023-02-21] MEDS: amLODIPine 5 MG Tablet PO (09:28)
[2023-02-21] MEDS: Vancomycin HCl 1,250 MG in 0.9% Normal Saline (250mL Bag) 250 ML 167 MG IV (09:46)
--- NOTE | 2023-02-21 10:34 | PCM.RX.CS ---
Consult Antibiotic Management Pharmacy has been consulted to manage selected antiobiotic: Vancomycin Type of Intervention Type of Consult: New start Suspected Infection Suspected Infection: Skin/Soft tissue and Osteomyelitis Labs Labs: Sodium 137 mmol/L (136-145) 02/21/23 05:58 Potassium 3.9 mmol/L (3.5-5.1) 02/21/23 05:58 Chloride 109 mmol/L (98-107) H 02/21/23 05:58 Carbon Dioxide 23.0 mmol/L (21.0-32.0) 02/21/23 05:58 Anion Gap 5 (5-15) 02/21/23 05:58 BUN 16 mg/dL (7-18) 02/21/23 05:58 Creatinine 1.22 mg/dL (0.55-1.02) H 02/21/23 05:58 Est GFR (MDRD) Af Amer 54 mL/min (>60) L 02/21/23 05:58 Est GFR (MDRD) Non-Af 45 mL/min (>60) L 02/21/23 05:58 BUN/Creatinine Ratio 13.1 RATIO (10-20) 02/21/23 05:58 Glucose 99 mg/dL (74-106) 02/21/23 05:58 Dosing Weight Weight used for dosin kg Estimated Creatinine Clearance Estimated Creatinine Clearance: 35.9ML/MIN Goal Trough Goal Trough: 15-20 mcg/mL Pharmacy Plan for Drug Dosing Pharmacy Plan for Drug Dosing: Give standard (15mg/kg) initial dose of 1250mg IV x1 as ordered, then continue with 1000mg q24h. WIll check a trough before the 3rd total dose. The patient's CrCl of 35.9ml/min was calculated using an adjusted body weight. Pharmacy Service will continue to monitor and adjust dosing as required. Follow-Up Labs Follow-Up Labs: Trough: Vancomycin Date/Time Labs Ordered Labs to be done on [date and time ordered]: 02/23 79
[2023-02-21 10:37] LABS: Hemoglobin A1c 10.6 % (3.8-5.6)
[2023-02-21] MEDS: 0.9% Normal Saline (1000mL) 1,000 ML 80 ML IV (10:59)
[2023-02-21] MEDS: Insulin Lispro 100 UNIT/ML INSULN.PEN SC ×3 (10:59→22:57)
[2023-02-21 11:26] LABS: Bedside Glucose 253 mg/dL (74-106)
--- NOTE | 2023-02-21 13:19 | CON.PCM.SX_ITS ---
Assessment & Plan Assessment/Plan (1) Peripheral arterial disease: (2) Diabetes mellitus with diabetic polyneuropathy: (3) Non-pressure chronic ulcer of other part of left foot with necrosis of bone: PLAN: Plan Arterial studies revealed L GERMAN 0.39 (PT)/0.53(DP) with monophasic waveforms and R GERMAN 0.68(PT)/(0.85DP) and mono/biphasic waveforms. She had L and R 2nd digit amputation yesterday evening by Dr. Munoz. Recommend left lower extremity angiogram with CO2 to reduce dye burden to see if any improvement can be made to her LLE inflow. Discussed the procedure including risks, benefits, and recovery with patient and her daughters. All questions were addressed. They are agreeable to proceed. She is currently scheduled in the [facility] Friday at 8AM with Dr. Philippe. Eliquis currently on hold following surgery with podiatry. If restarted, will need to hold 2 doses prior to angiogram. Continue ASA 81mg daily. Will continue to follow. HPI Consult Data Date of Consult: 02/21/23 HPI Narrative HPI Narrative: DARREN SANDOVAL, is a 82 F who presented to the [facility] ER on 02/20/23 with diabetic wounds on bilateral 2nd toes with concern for underlying osteomyelitis. XR in the ED did show evidence of osteomyelitis in the L 2nd toe. She had WBC 14.3 and elevated CRP. She was started on IV ertapenem due to her allergies and admitted for further management. Dr. Munoz performed amputation of bilateral 2nd toes on 02/20. LEAS was obtained which revealed severe PAD for which we are consulted. She is not the best historian, her daughters were at bedside and supplemented history. She currently resides at [place]. These toe wounds had been present for a few months and progressively worsening. She had been on at least 2 rounds of antibiotics as an outpatient prior to presentation. Unsure what caused the wounds, her family thinks possibly friction in her shoes as patient is always moving her feet even when sitting. She has a known history of PAD with prior toe amputations and multiple prior bilateral lower extremity endovascular revascularizations, most recently angioplasty of R anterior tibial in 2020 prior to a R 1st toe amputation due to wounds which did ultimately heal. She takes Eliquis for Afib, prior to this admission does not appear that she was on an antiplatelet. She does not tolerate statins. She denies claudication or rest pain. She has significant peripheral neuropathy in bilateral upper and lower extremities secondary to diabetes. She had ischemic CVA with R [employer]COME [employer] CONSULTANT infarcts determined to be embolic from Afib in 07/2022. She was not on any anticoagulation or antiplatelet agents. Following that, she was initiated on Eliquis. Carotid artery disease was also identified, but not felt to be contributory. She has residual left-sided weakness and mobility is quite limited. As noted, she is a poorly controlled diabetic with A1c 10.6 today. Medical history is otherwise significant for CKD IIIb, CAD s/p CABG. [facility] Medical History Abdominal pain Acute ischemic stroke Arthritis Back pain Bilateral leg pain Breast lump in female Cardiology follow-up encounter Cataracts, bilateral Chronic atrial fibrillation CKD (chronic kidney disease) Colovaginal fistula Colovesical fistula Controlled type 2 diabetes mellitus with hyperglycemia Delayed wound healing Diabetes Dietary restriction Diverticulitis large intestine Diverticulosis Heart failure High blood pressure High cholesterol History of diverticulitis History of echocardiogram History of edema History of heart attack HLD (hyperlipidemia) Ileostomy in place Kidney stones Loss of hearing Non-smoker Open wound Osteoarthritis Peripheral arterial disease Rheumatoid arthritis Shortness of breath on exertion Type 2 diabetes mellitus with diabetic polyneuropathy Ulcer of right foot with necrosis of bone Ulcer of right lower extremity with muscle involvement without evidence of necrosis Unspecified protein-calorie malnutrition Wears glasses Home Medications glyburide 5 mg tablet 2.5 mg PO DAILY 07/04/22 [History Last Taken Unknown] acetaminophen 325 mg tablet 650 mg (2 x 325 mg) PO Q6H PRN PRN Pain 1-10 Or Fe teto>100.7 #0 tabs 08/13/22 [Rx Last Taken Unknown] amlodipine 5 mg tablet 5 mg PO DAILY #0 tabs 08/13/22 [Rx Last Taken Unknown] apixaban 5 mg tablet 5 mg PO BID #30 tabs 08/13/22 [Rx Last Taken Unknown] insulin glargine 100 unit/mL (3 mL) subcutaneous pen (Lantus Solostar U-100 Insulin) 20 unit (0.2 mL) subcut QPM #15 mL 08/13/22 [Rx Last Taken Unknown] insulin lispro 100 unit/mL subcutaneous pen (Humalog KwikPen (U-100) Insulin) See Protocol subcut TIDAC #0 mL 08/13/22 [Rx Last Taken Unknown] Allergy/AdvReac Type Severity Reaction Status Date / Time adhesive Allergy Unknown Verified 08/11/22 13:33 bacitracin zinc Allergy Rash Verified 08/11/22 13:33 [From Neosporin ([id number])] metronidazole Allergy ALLERGY Verified 08/11/22 13:33 neomycin sulfate Allergy Rash Verified 08/11/22 13:33 [From Neosporin ([id number])] polymyxin B Allergy Rash Verified 08/11/22 13:33 [From Neosporin ([id number])] prednisolone acetate, Allergy ALLERGY Verified 08/11/22 13:33 micronized simvastatin Allergy ALLERGY Verified 08/11/22 13:33 tramadol [From Ultram] Allergy ALLERGY Verified 08/11/22 13:33 amoxicillin [From Augmentin] AdvReac Nausea/Vom/ Verified 08/11/22 13:33 Diarrhea atorvastatin calcium AdvReac Pain in Verified 08/11/22 13:33 [From Lipitor] joints clavulanic acid AdvReac Nausea/Vom/ Verified 08/11/22 13:33 [From Augmentin] Diarrhea fenofibrate nanocrystallized AdvReac Upset Verified 08/11/22 13:33 [From Tricor] Stomach flurbiprofen AdvReac Upset Verified 08/11/22 13:33 Stomach gemfibrozil AdvReac Upset Verified 08/11/22 13:33 Stomach glipizide [From Glucotrol] AdvReac Upset Verified 08/11/22 13:33 Stomach pravastatin AdvReac Pain in Verified 08/11/22 13:33 joints Family History Mother Diabetes Father Hypertension CVA (cerebral vascular accident) Brother Lung cancer Sister Breast cancer COPD (chronic obstructive pulmonary disease) Other Peripheral arterial disease Surgical History History of appendectomy History of cholecystectomy History of heart bypass surgery History of knee replacement History of partial colectomy (~05/2021) Hx of colonoscopy S/P CABG (coronary artery bypass graft) S/P hysterectomy Social History household members: family housing: residential Smoking Status: Never smoker alcohol intake: current alcohol intake frequency: other substance use type: does not use additional social history: USES [employer]IR[employer] Physical Exam Const alert, oriented x3 and no apparent distress General Appearance: cooperative HEENT head/scalp atraumatic and external nose normal Eyes EOMs intact bilaterally General Eye: normal appearance of both eyes Neck General: normal visual inspection Resp normal respiratory effort and no retractions Effort and Inspection: able to speak in complete sentences Cardio Rate: regular rate Rhythm: regular rhythm Extremity General Extremity: Negative for edema Skin Wound Narrative: Bilateral foot surgical dressings in place, did not remove for exam. No drainage or bleeding noted through the dressings. Neuro moves all extremities and no focal motor deficits Speech: speech normal Psych mental status grossly normal and affect normal Appearance: grossly normal Lab / Micro Data 02/21/23 05:58 02/21/23 05:58 Labs: Laboratory Results - last 24 hr 02/20/23 10:25: Polychromasia 14.3, ESR 64 H 02/20/23 16:17: POC Glucose 185 H 02/20/23 21:38: POC Glucose 186 H 02/21/23 05:58: WBC 9.1, RBC 4.64, Hgb 13.4, Hct 41.2, MCV 88.8, MCH 28.9, MCHC 32.5, RDW Std Deviation 44.8 H, RDW Coeff of Monqiue 13.7, Plt Count 176, MPV 10.7, Immature Gran % (Auto) 0.700, Neut % (Auto) 57.4, Lymph % (Auto) 27.5, [place] % (Auto) 12.0 H, Eos % (Auto) 1.9, Baso % (Auto) 0.5, Absolute Neuts (auto) 5.2, Absolute Lymphs (auto) 2.51, Nucleated RBC % 0, Sodium 137, Potassium 3.9, Chloride 109 H, Carbon Dioxide 23.0, Anion Gap 5, BUN 16, Creatinine 1.22 H, Estim Creat Clear Calc 30.70, Est GFR (MDRD) Af Amer 54 L, Est GFR (MDRD) Non-Af 45 L, BUN/Creatinine Ratio 13.1, Glucose 99, Hemoglobin A1c 10.6 H, Calcium 8.5 02/21/23 06:01: POC Glucose 112 H 12/01/23 10:58: POC Glucose 253 H Micro: Microbiology 02/20/23 19:35 Bone - 2nd Metatarsal Bone Gram Stain - Final 02/20/23 19:35 Bone - 2nd Metatarsal Bone Wound Culture - Preliminary No growth-Final to follow 02/20/23 19:30 Bone - 2nd Metatarsal Bone Gram Stain - Final 02/20/23 Unknown Wound - Right Foot Gram Stain - Final Rhythm Strip Rhythm Strip: A-fib Rate: 100 Ectopy: None Imagaing Radiology Impression Extremity Arterial Study 02/20/23 13:09 Interpretation Summary Technically difficult examination due to limitation of areas that can be st udied. Right posterior tibial and dorsalis pedis ankle-brachial indices are abnormal at 0.68 and 0.85 respectively with monophasic and biphasic Doppler waveforms consistent with moderately severe arterial occlusive disease. Abnormal left lower extremity posterior tibialis and dorsalis pedis ankle- brachial indices of 0.39 and 0.53 respectively with monophasic waveforms at each site consistent with severe arterial occlusive disease. Ordering Physician: Joshua Munoz Referring Physician: Юлия Jean-Baptiste Performed By: Bridgett Nguyen RVT Toe X-Ray 02/20/23 19:05 IMPRESSION: Fluoroscopy during second toe amputation. Electronically Signed: Roel Perez MD at 23:13 EST Reading Location ID and State: [id number] / [employer] Tel , Service support , Toe X-Ray 02/20/23 19:05 IMPRESSION: Fluoroscopy during indication the second digit. Electronically Signed: Roel Perez MD at 23:14 EST Reading Location ID and State: [id number] / [employer] Tel , Service support , Charges/Coding Visit Charges Inpatient E&M: 61247 Init Hosp L2
--- NOTE | 2023-02-21 14:13 | PCM.CONS.GEN ---
Assessment & Plan Assessment/Plan (1) Diabetes mellitus with diabetic polyneuropathy: (2) Osteomyelitis of second toe of left foot: PLAN: Infected 2nd toes on both feet, now s/p amputation bilaterally 02/20/[address] Munoz. Surg cx pending, on empiric vanc/cheyenne. Will follow thank you HPI Consult Data Date of Consult: 02/21/23 HPI Narrative Reason for Consultation: osteo HPI Narrative: DARREN SANDOVAL, is a 82 F who presented with several weeks bilateral 2nd toe swelling, redness, drainage. No pain, no fever. Was on some po abx at [facility] recently without improvement. Saw podiatry, sent to hospital. Taken to OR 02/20 for bilat toe amp. Feeling ok today, no n/v/d. Family at bedside provided additional history. Full ROS performed and neg except as noted above. [facility] Medical History Abdominal pain Acute ischemic stroke Arthritis Back pain Bilateral leg pain Breast lump in female Cardiology follow-up encounter Cataracts, bilateral Chronic atrial fibrillation CKD (chronic kidney disease) Colovaginal fistula Colovesical fistula Controlled type 2 diabetes mellitus with hyperglycemia Delayed wound healing Diabetes Dietary restriction Diverticulitis large intestine Diverticulosis Heart failure High blood pressure High cholesterol History of diverticulitis History of echocardiogram History of edema History of heart attack HLD (hyperlipidemia) Ileostomy in place Kidney stones Loss of hearing Non-smoker Open wound Osteoarthritis Peripheral arterial disease Rheumatoid arthritis Shortness of breath on exertion Type 2 diabetes mellitus with diabetic polyneuropathy Ulcer of right foot with necrosis of bone Ulcer of right lower extremity with muscle involvement without evidence of necrosis Unspecified protein-calorie malnutrition Wears glasses Home Medications glyburide 5 mg tablet 2.5 mg PO DAILY 07/04/22 [History Last Taken Unknown] acetaminophen 325 mg tablet 650 mg (2 x 325 mg) PO Q6H PRN PRN Pain 1-10 Or Fever>100.7 #0 tabs 08/13/22 [Rx Last Taken Unknown] amlodipine 5 mg tablet 5 mg PO DAILY #0 tabs 08/13/22 [Rx Last Taken Unknown] apixaban 5 mg tablet 5 mg PO BID #30 tabs 08/13/22 [Rx Last Taken Unknown] insulin glargine 100 unit/mL (3 mL) subcutaneous pen (Lantus Solostar U-100 Insulin) 20 unit (0.2 mL) subcut QPM #15 mL 08/13/22 [Rx Last Taken Unknown] insulin lispro 100 unit/mL subcutaneous pen (Humalog KwikPen (U-100) Insulin) See Protocol subcut TIDAC #0 mL 08/13/22 [Rx Last Taken Unknown] Allergy/AdvReac Type Severity Reaction Status Date / Time adhesive Allergy Unknown Verified 08/11/22 13:33 bacitracin zinc Allergy Rash Verified 08/11/22 13:33 [From Neosporin ([id number])] metronidazole Allergy ALLERGY Verified 08/11/22 13:33 neomycin sulfate Allergy Rash Verified 08/11/22 13:33 [From Neosporin ([id number])] polymyxin B Allergy Rash Verified 08/11/22 13:33 [From Neosporin ([id number])] prednisolone acetate, Allergy ALLERGY Verified 08/11/22 13:33 micronized simvastatin Allergy ALLERGY Verified 08/11/22 13:33 tramadol [From Ultram] Allergy ALLERGY Verified 08/11/22 13:33 amoxicillin [From Augmentin] AdvReac Nausea/Vom/ Verified 08/11/22 13:33 Diarrhea atorvastatin calcium AdvReac Pain in Verified 08/11/22 13:33 [From Lipitor] joints clavulanic acid AdvReac Nausea/Vom/ Verified 08/11/22 13:33 [From Augmentin] Diarrhea fenofibrate nanocrystallized AdvReac Upset Verified 08/11/22 13:33 [From Tricor] Stomach flurbiprofen AdvReac Upset Verified 08/11/22 13:33 Stomach gemfibrozil AdvReac Upset Verified 08/11/22 13:33 Stomach glipizide [From Glucotrol] AdvReac Upset Verified 08/11/22 13:33 Stomach pravastatin AdvReac Pain in Verified 08/11/22 13:33 joints Family History Mother Diabetes Father Hypertension CVA (cerebral vascular accident) Brother Lung cancer Sister Breast cancer COPD (chronic obstructive pulmonary disease) Other Peripheral arterial disease Surgical History History of appendectomy History of cholecystectomy History of heart bypass surgery History of knee replacement History of partial colectomy (~05/2021) Hx of colonoscopy S/P CABG (coronary artery bypass graft) S/P hysterectomy Social History household members: family housing: [facility] Smoking Status: Never smoker alcohol intake: current alcohol intake frequency: other substance use type: does not use additional social history: USES [employer] Physical Exam Const alert and no apparent distress General Appearance: cooperative HEENT normocephalic and head/scalp atraumatic Eyes PERRL and EOMs intact bilaterally Neck supple and No nodes Resp normal air movement and clear to auscultation bilaterally Cardio regular rate and regular rhythm GI soft to palpation, non-tender and non-distended Extremity General Extremity: Negative for edema Skin Skin Narrative: reviewed photos, both feet wrapped Neuro CN's II-XII intact bilaterally Lab / Micro Data Attestation: I reviewed the patient's lab results. 02/21/23 05:58 02/21/23 05:58 Labs: Laboratory Results - last 24 hr 02/20/23 16:17: POC Glucose 185 H 02/20/23 21:38: POC Glucose 186 H 02/21/23 05:58: WBC 9.1, RBC 4.64, Hgb 13.4, Hct 41.2, MCV 88.8, MCH 28.9, MCHC 32.5, RDW Std Deviation 44.8 H, RDW Coeff of Monique 13.7, Plt Count 176, MPV 10.7, Immature Gran % (Auto) 0.700, Neut % (Auto) 57.4, Lymph % (Auto) 27.5, [place] % (Auto) 12.0 H, Eos % (Auto) 1.9, Baso % (Auto) 0.5, Absolute Neuts (auto) 5.2, Absolute Lymphs (auto) 2.51, Nucleated RBC % 0, Sodium 137, Potassium 3.9, Chloride 109 H, Carbon Dioxide 23.0, Anion Gap 5, BUN 16, Creatinine 1.22 H, Estim Creat Clear Calc 30.70, Est GFR (MDRD) Af Amer 54 L, Est GFR (MDRD) Non-Af 45 L, BUN/Creatinine Ratio 13.1, Glucose 99, Hemoglobin A1c 10.6 H, Calcium 8.5 02/21/23 06:01: POC Glucose 112 H 02/21/23 10:58: POC Glucose 253 H Micro: Microbiology 02/20/23 19:35 Bone - 2nd Metatarsal Bone Gram Stain - Final 02/20/23 19:35 Bone - 2nd Metatarsal Bone Wound Culture - Preliminary No growth-Final to follow 02/20/23 19:30 Bone - 2nd Metatarsal Bone Gram Stain - Final 02/20/23 Unknown Wound - Right Foot Gram Stain - Final Rhythm Strip Rhythm Strip: A-fib Rate: 100 Ectopy: None Imagaing Radiology Impression Extremity Arterial Study 02/20/23 13:09 Interpretation Summary Technically difficult examination due to limitation of areas that can be studied. Right posterior tibial and dorsalis pedis ankle-brachial indices are abnormal at 0.68 and 0.85 respectively with monophasic and biphasic Doppler waveforms consistent with moderately severe arterial occlusive disease. Abnormal left lower extremity posterior tibialis and dorsalis pedis ankle-brachial indices of 0.39 and 0.53 respectively with monophasic waveforms at each site consistent with severe arterial occlusive disease. Ordering Physician: Joshua Munoz Referring Physician: Юлия Jean-Baptiste Performed By: Bridgett Nguyen Aicha Toe X-Ray 02/20/23 19:05 IMPRESSION: Fluoroscopy during second toe amputation. Electronically Signed: Roel Perez MD at 23:13 EST , Toe X-Ray 02/20/23 19:05 IMPRESSION: Fluoroscopy during indication the second digit. Electronically Signed: Roel Perez MD at 23:14 EST ,
[2023-02-21 14:15] VITALS: BP 155/91; PULSE 100; RESP 18; TEMP 36.9; O2SAT 96
--- NOTE | 2023-02-21 16:10 | CASEMGMT ---
Social Work Pt has a Health Care Power of Regional Education Coordinator on EMR naming her daughter Kaitlyn Walton. SW placed copy on pt chart. SW met with pt who confirms Kaitlyn is HCPOA. Pt states she has not completed a living will and is not interested in completing at this time. VIKTORIA Benitez
--- NOTE | 2023-02-21 16:12 | CASEMGMT ---
Social Work SW met with pt and introduced self and role of SW. Pt confirms she has been admitted from [facility] and has staff who is able to assist her. Pt plans to return to [place] at time of discharge. Phone call to [facility] who is able to accept pt back when medically ready. . Pt's dgt Xochilt will provide transportation. Plan: Return to [facility] when medically ready VIKTORIA Benitez
--- NOTE | 2023-02-21 16:24 | CHAPLAIN ---
Type of Pastoral Visit _x__ Initial Visit ___ Follow-up Visit ___ On-call Visit ___ General Patient Visit ___ Spiritual Assessment ___ Family Conference ___ Bereavement ___ Rapid Response ___ Code Blue ___ Other (describe below) Pastoral Care Referral From ___ Patient _x__ Family ___ Nurse ___ Physician ___ Bulb Inspector ___ A And P Mechanic ___ Other (describe below) Sacrament/Intervention _x__ Active listening ___ Anointing ___ Taoism ___ Bereavement ___ Communion ___ Trish exploration ___ _x__ Life review ___ Prayer ___ Reconciliation ___ Sacrament of Sick _x__ Supportive presence ___ Wedding ___ Other (describe below) Pastoral Comments several family members are with the patient in the room including her spouse; patient states that she is doing as expected and has no concerns; interacted with the family members and discovered that spouse is living with the daughter while the patient/his is now at [place] which is a hard adjustment with emotional difficulty; offered support
--- NOTE | 2023-02-21 16:56 | PCM.PN.SRG ---
Subjective Subjective Order is a 82-year-old diabetic female seen at bedside today for dressing changes to the bilateral lower extremity. Patient is postoperative day 1, status post partial excision of bone second digit with advancement flap closure, bilateral lower extremity. Patient denies any pain to the operative site. She has left her postoperative dressing clean dry and intact. She is working with all modalities for her postoperative care. She is grateful for her care.She denies any trauma. Denies constitutional symptoms. No other pedal complaints at this time. Objective Data Objective Data Vital Signs: Vital Signs Temp Pulse Resp BP Pulse Ox O2 Del Method 98.5 F 100 18 155/91 H 96 Room Air 02/21/23 14:15 02/21/23 14:15 02/21/23 14:15 02/21/23 14:15 02/21/23 14:15 02/21/23 14:15 Oxygen Delivery Method Room Air Weight: 78.075 kg Body Mass Index (BMI) 29.5 Intake & Output: Intake and Output for Last 24 Hours 02/19/23 02/20/23 02/21/23 23:59 23:59 23:59 Intake Total 1168 / 1168 1635 / 1635 Output Total 875 / 875 1325 / 1325 Balance 293 / 293 310 / 310 Lab / Micro Data Attestation: I reviewed the patient's lab results. 02/21/23 05:58 02/21/23 05:58 Labs: Laboratory Results - last 24 hr 02/20/23 16:17: POC Glucose 185 H 02/20/23 21:38: POC Glucose 186 H 02/21/23 05:58: WBC 9.1, RBC 4.64, Hgb 13.4, Hct 41.2, MCV 88.8, MCH 28.9, MCHC 32.5, RDW Std Deviation 44.8 H, RDW Coeff of Monique 13.7, Plt Count 176, MPV 10.7, Immature Gran % (Auto) 0.700, Neut % (Auto) 57.4, Lymph % (Auto) 27.5, [place] % (Auto) 12.0 H, Eos % (Auto) 1.9, Baso % (Auto) 0.5, Absolute Neuts (auto) 5.2, Absolute Lymphs (auto) 2.51, Nucleated RBC % 0, Sodium 137, Potassium 3.9, Chloride 109 H, Carbon Dioxide 23.0, Anion Gap 5, BUN 16, Creatinine 1.22 H, Estim Creat Clear Calc 30.70, Est GFR (MDRD) Af Amer 54 L, Est GFR (MDRD) Non-Af 45 L, BUN/Creatinine Ratio 13.1, Glucose 99, Hemoglobin A1c 10.6 H, Calcium 8.5 02/21/23 06:01: POC Glucose 112 H 02/21/23 10:58: POC Glucose 253 H Micro: Microbiology 02/20/23 19:35 Bone - 2nd Metatarsal Bone Gram Stain - Final 02/20/23 19:35 Bone - 2nd Metatarsal Bone Wound Culture - Preliminary No growth-Final to follow 02/20/23 19:30 Bone - 2nd Metatarsal Bone Gram Stain - Final 02/20/23 Unknown Wound - Right Foot Gram Stain - Final Radiography Diagnostic Testing: Radiology Impression Toe X-Ray 02/20/23 19:05 IMPRESSION: Fluoroscopy during second toe amputation. Electronically Signed: Roel Perez MD at 23:13 EST Reading Location ID and State: [employer] Tel , Service support , Toe X-Ray 02/20/23 19:05 IMPRESSION: Fluoroscopy during indication the second digit. Electronically Signed: Roel Perez MD at 23:14 EST Reading Location ID and State: [employer] Tel , Service support , Rhythm Strip Rhythm Strip: A-fib Rate: 100 Ectopy: None Physical Exam Narrative Neurovascular status is unchanged. Nonpitting edema appreciated to the bilateral lower extremity at the level of the amputation site. Right foot incisions are well coapted with suture. Evidence of sanguinous drainage. No malodor. No probe to bone. No evidence of surgical wound dehiscence. No sign of infection. Left foot incision is well coapted with suture. Evidence of light sanguinous drainage. No malodor. No probe to bone. No evidence of surgical wound dehiscence. No sign of infection. Both incisions show no evidence of duskiness or concern for dry gangrene. No pain to palpation to both incisions. No pain with calf compression. Const oriented x3 and no apparent distress Assessment & Plan Assessment/Plan (1) Osteomyelitis of second toe of left foot: PLAN: Patient was examined evaluated. All findings were discussed with the patient. All questions were answered to the patient's satisfaction. Patient is postoperative day 1 status post bilateral partial excision of bone second digit with advancement flap closure. DOS: 02/20/2023. Patient is recovering well. Both dressings were changed at bedside today. Both incisions were dressed with Betadine soaked Adaptic, dry sterile dressing and a single layer Lizarraga compression bandage was donned to the right lower extremity as well as a light single layer Lizarraga compression bandage was donned to the left lower extremity. WBC: 14.3 -> 9.1 POC Glu: 253 Wound Cx: Gm(+) rods Sx Cx: Gm(+) rods Path: Pending Medicine: On board, medical management, Vascular: Recommends left lower extremity angiogram with CO2 to reduce dye burden to see if any improvement can be made to the left lower extremity inflow. Procedure has been discussed with the patient with all risk and benefits answered. Patient and family are agreeable to move forward with procedure. Patient will be scheduled for Systems Project Manager Friday at [address] Philippe. Infectious disease: On board, IV antibiotics empiric treatment vancomycin and meropenem Podiatry will continue to follow patient while she is in house. Patient is recovering well from surgery. Please reach out to Dr. Munoz with any questions or concerns. Thank you for letting be involved in the patient's care! (2) Non-pressure chronic ulcer of other part of left foot with necrosis of bone: (3) 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: (4) Dry gangrene: (5) Peripheral arterial disease:
--- NOTE | 2023-02-21 17:07 | NURSING ---
Dr. Munoz recently here and changed drswilberto's and wanted pillows under pts ankles. pillow under ankles at this time to elevate off of bed.
[2023-02-21 17:26] LABS: Bedside Glucose 299 mg/dL (74-106)
[2023-02-21] MEDS: 0.9% Normal Saline (250mL Bag) 250 ML 15 ML IV (22:42)
[2023-02-21 22:46] VITALS: BP 161/62; PULSE 92; RESP 22; TEMP 37; O2SAT 94
[2023-02-21] MEDS: Insulin Glargine-YFGN 100 UNIT/ML Pen 20 UNIT SC (22:57)
[2023-02-22] MEDS: 0.9% Normal Saline (1000mL) 1,000 ML 80 ML IV
[2023-02-22 00:28] LABS: Bedside Glucose 292 mg/dL (74-106)
[2023-02-22 02:06] VITALS: BP 138/75; PULSE 91; RESP 20; TEMP 36.9; O2SAT 94
[2023-02-22 06:16] VITALS: BP 153/78; PULSE 83; RESP 18; TEMP 36.8; O2SAT 97
[2023-02-22 06:41] LABS: Bedside Glucose 145 mg/dL (74-106)
[2023-02-22 08:56] LABS: Absolute Lymphocyte Count 1.82 X10^3/uL (0.83-4.51); Absolute Neutrophil Count 6.2 X10^3/uL (2.0-7.7); Basophil# 0.05 X10^3/uL; Basophil% 0.5 % (0-1); Eosinophil# 0.12 X10^3/uL; Eosinophils% 1.3 % (0-5); Hematocrit 40.1 % (37-47); Hemoglobin 13.2 g/dL (12.0-15.0); Lymphocyte # 1.82 X10^3/ul (0.83-4.51); Mean Corp Hgb Conc 32.9 g/dL (32-36); Mean Corpuscular Hgb 29.3 pg (27.0-32.0); Mean Corpuscular Volume 88.9 fL (81-99); Mean Platelet Vol. 11.2 fl (6.2-12.0); Monocyte# 1.33 X10^3/uL; Monocyte% 13.9 % (0-10); NRBC Flagged by Analyzer 0 % (0-5); Neutrophil # 6.17 X10^3/uL (2.7-7.7); Neutrophil % 64.4 % (47-70); Platelet Count 141 K/mm3 (150-450); RBC Distribution Width CV 13.6 % (11.6-14.6); RBC Distribution Width SD 44.5 fl (35.1-43.9); Red Blood Count 4.51 M/mm3 (4.2-5.4); White Blood Count 9.6 K/mm3 (4.4-11.0)
[2023-02-22 09:33] LABS: Anion Gap 6 (5-15); BUN 27 mg/dL (7-18); BUN/Creat Ratio 21.8 RATIO (10-20); Calcium,Total 8.7 mg/dL (8.5-10.1); Chloride 110 mmol/L (98-107); Creatinine, Serum 1.24 mg/dL (0.55-1.02); EST Glomerular Filtration Rate 44 mL/min (>60); Est Glom Filt Rate - Afr Amer 53 mL/min (>60); Estimated Creatinine Clearance 30.21 ml/min; Glucose 146 mg/dL (74-106); Potassium 3.7 mmol/L (3.5-5.1); Sodium Level 139 mmol/L (136-145)
[2023-02-22] MEDS: Vancomycin IV 1,000 MG/200 ML BAG 200 MG IV (09:41)
[2023-02-22] MEDS: Juven (unflavored) Packet 1 PACKET PO ×2 (09:45→16:54)
[2023-02-22] MEDS: Aspirin 81 MG TAB.CHEW PO (09:47)
[2023-02-22] MEDS: amLODIPine 5 MG Tablet PO (09:47)
[2023-02-22] MEDS: Menthol/Lanolin/Calamine/Znox 113 GM Tube 1 APPLIC TOPICAL ×2 (09:47→22:37)
[2023-02-22] MEDS: Heparin Injection (Vial) 5,000 UNIT/ML VIAL 5000 UNIT SC (09:47)
[2023-02-22] MEDS: Meropenem 1 GM in 0.9% Normal Saline (100mL MB+) 100 ML IV ×2 (09:57→22:40)
[2023-02-22 10:10] VITALS: BP 171/85; PULSE 93; RESP 18; TEMP 36.8; O2SAT 99
[2023-02-22 11:33] LABS: Bedside Glucose 319 mg/dL (74-106)
[2023-02-22] MEDS: Insulin Lispro 100 UNIT/ML INSULN.PEN SC ×3 (11:38→22:37)
--- NOTE | 2023-02-22 13:26 | PCM.PN.HOSP ---
Reason for Visit Reason for Visit: Bilateral lower extremity diabetic foot infection Subjective Subjective No issues overnight. Patient states she feels well. Plan is for vascular study on Friday therefore we are holding and apixaban. Objective Data Objective Data Vital Signs: Vital Signs Temp Pulse Resp BP Pulse Ox O2 Del Method 98.2 F 93 18 171/85 H 99 Room Air 02/22/23 10:10 02/22/23 10:10 02/22/23 10:10 02/22/23 10:10 02/22/23 10:10 02/22/23 10:10 Oxygen Delivery Method Room Air Weight: 78.075 kg Body Mass Index (BMI) 29.5 Intake & Output: Intake and Output for Last 24 Hours 02/20/23 02/21/23 02/22/23 23:59 23:59 23:59 Intake Total 1168 / 1168 3035 / 3035 680 / 680 Output Total 875 / 875 1775 / 1975 800 / 800 Balance 293 / 293 1260 / 1060 -120 / -120 Lab / Micro Data 02/22/23 08:24 02/22/23 08:24 Labs: Laboratory Results - last 24 hr 02/21/23 17:01: POC Glucose 299 H 02/21/23 22:55: POC Glucose 292 H 02/22/23 06:15: POC Glucose 145 H 02/22/23 08:24: WBC 9.6, RBC 4.51, Hgb 13.2, Hct 40.1, MCV 88.9, MCH 29.3, MCHC 32.9, RDW Std Deviation 44.5 H, RDW Coeff of Monique 13.6, Plt Count 141 L, MPV 11.2, Immature Gran % (Auto) 0.900, Neut % (Auto) 64.4, Lymph % (Auto) 19.0, [place] % (Auto) 13.9 H, Eos % (Auto) 1.3, Baso % (Auto) 0.5, Absolute Neuts (auto) 6.2, Absolute Lymphs (auto) 1.82, Nucleated RBC % 0, Sodium 139, Potassium 3.7, Chloride 110 H, Carbon Dioxide 23.0, Anion Gap 6, BUN 27 H, Creatinine 1.24 H, Estim Creat Clear Calc 30.21, Est GFR (MDRD) Af Amer 53 L, Est GFR (MDRD) Non-Af 44 L, BUN/Creatinine Ratio 21.8 H, Glucose 146 H, Calcium 8.7 02/22/23 11:15: POC Glucose 319 H Micro: Microbiology 02/20/23 19:35 Bone - 2nd Metatarsal Bone Gram Stain - Final 02/20/23 19:35 Bone - 2nd Metatarsal Bone Wound Culture - Preliminary No growth-Final to follow 02/20/23 19:30 Bone - 2nd Metatarsal Bone Gram Stain - Final 02/20/23 Unknown Wound - Right Foot Gram Stain - Final Rhythm Strip Rhythm Strip: A-fib Rate: 100 Ectopy: None Physical Exam Const alert, oriented x3, no apparent distress and well nourished; Negative for average body habitus Constitutional Narrative: Overweight, elderly, white female, lying in bed, appears comfortable and nontoxic, nursing is at bedside HEENT normocephalic, head/scalp atraumatic and moist oral mucous membranes HEENT Narrative: Very mild hearing loss Resp normal respiratory effort, no retractions, no use of accessory muscles and clear to auscultation bilaterally Auscultation: Negative for rales, rhonchi or wheezes Cardio regular rate, S1 normal heart sound, S2 normal heart sound, no murmurs, no rub, no gallops and no clicks; Negative for regular rhythm Cardio Narrative: Irregular irregular rhythm with controlled rate GI normal to inspection, nondistended, normoactive bowel sounds, soft to palpation and non-tender Extremity no clubbing, cyanosis or edema Extremity Narrative: Bilateral lower extremities with postoperative dressings in place-Dressings are clean and dry Neuro oriented x3, moves all extremities and no focal motor deficits Neuro Narrative: Significantly decreased sensation bilateral lower extremities, generalized weakness noted Speech: speech normal Psych affect normal Psych Narrative: Very pleasant, eye contact is good, patient interacts appropriately Assessment & Plan Assessment/Plan (1) Peripheral arterial disease: (2) Diabetes mellitus with diabetic polyneuropathy: (3) Dry gangrene: (4) Osteomyelitis of second toe of left foot: (5) 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: PLAN: Plan Diabetic/neuropathic foot infections and osteomyelitis of the second digit on bilateral lower extremities -Postop day 2 second digit resections with flaps done by podiatry -Preoperative and intraoperative cultures are pending -Continue meropenem and vancomycin -Vascular studies have been done previously and notes of severe vascular disease -Plan is for arteriogram on Friday -Continue to hold Xarelto until okay from podiatry/vascular surgery standpoint to reinitiate -She is anticoagulated for chronic atrial fibrillation -Infectious diseases following -Wound care is following Peripheral vascular disease -Markedly abnormal PVRs -Vascular surgery following with plans for arteriogram on Friday -Continue aspirin 81 mg daily DM-2 -Appears to be uncontrolled -Hemoglobin A1c is 10.6 on 02/21/2023 -Continue home basal insulin at 20 units at bedtime as fasting blood sugars appear to be well-controlled -Prandial blood sugars are markedly elevated so we will add 10 units 3 times daily to start with as well as sliding scale -Accu-Cheks -Hold home oral agents CKD stage IIIb -Baseline serum creatinine appears to be between 1.25 and 1.45 -Current serum creatinine 1.24 -Continue to monitor -Avoid nephrotoxins as able CAD/HTN/HPL -Previous history of CABG -Patient not on statin therapy secondary to allergies -Continue home amlodipine -Blood pressure remains markedly elevated above goal -Add lisinopril 20 mg daily and continue to monitor Persistent atrial fibrillation -Apixaban on hold until okay to reinitiate from podiatry and vascular surgery -Rate appears to be controlled without any rate controlling medications -Monitor Peripheral neuropathy -Secondary above -If patient complains of pain could consider initiation of gabapentin Obesity -Recommend weight loss -Complicates treatment, prognosis, outcomes VTE prophylaxis -Continue subcu heparin -Increase from twice daily to 3 times daily with BMI of 29.5 CODE STATUS -Currently noted is full code however unverified -Patient has been DNR [facility] [place] for intubation previously -Have to verify Charges/Coding Visit Charges Inpatient E&M: 39520 Subs Hosp L3
[2023-02-22 15:05] VITALS: BP 189/96; PULSE 99; RESP 18; TEMP 37.7; O2SAT 99
[2023-02-22] MEDS: Lisinopril 20 MG Tablet PO (15:07)
[2023-02-22 16:33] LABS: Bedside Glucose 299 mg/dL (74-106)
[2023-02-22] MEDS: Insulin Lispro 100 UNIT/ML INSULN.PEN 10 UNIT SC (16:52)
[2023-02-22 22:27] VITALS: BP 118/55; PULSE 93; RESP 18; TEMP 37; O2SAT 93
[2023-02-22] MEDS: Insulin Glargine-YFGN 100 UNIT/ML Pen 20 UNIT SC (22:36)
[2023-02-22] MEDS: 0.9% Normal Saline (250mL Bag) 250 ML 15 ML IV (22:49)
[2023-02-22 23:01] LABS: Bedside Glucose 237 mg/dL (74-106)
[2023-02-23] VITALS (7 sets, daily range): BP systolic 122–140; BP diastolic 57–69; PULSE 64–97; RESP 14–22; TEMP 36.5–36.9; O2SAT 92–100
[2023-02-23] MEDS: Juven (unflavored) Packet 1 PACKET PO ×2 (08:22→17:10)
[2023-02-23] MEDS: Menthol/Lanolin/Calamine/Znox 113 GM Tube 1 APPLIC TOPICAL ×2 (08:22→22:56)
[2023-02-23] MEDS: Enoxaparin 40 MG/0.4 ML Syringe SC (08:23)
[2023-02-23] MEDS: Aspirin 81 MG TAB.CHEW PO (08:23)
[2023-02-23] MEDS: Lisinopril 20 MG Tablet PO (08:23)
[2023-02-23] MEDS: amLODIPine 5 MG Tablet PO (08:23)
[2023-02-23] MEDS: Insulin Lispro 100 UNIT/ML INSULN.PEN SC ×4 (08:25→22:58)
[2023-02-23] MEDS: Insulin Lispro 100 UNIT/ML INSULN.PEN 10 UNIT SC (08:26)
[2023-02-23 08:33] LABS: Bedside Glucose 155 mg/dL (74-106)
--- NOTE | 2023-02-23 09:09 | PCM.PN.SRG ---
Subjective Subjective Patient seen this morning resting, eating breakfast. Her family is at bedside. She reports she is feeling fine today. She denies any SOB, CP, new/worsening pain in her lower extremities, N/V, F/C. Podiatry notes indicate surgical site satisfactory, dressings are C/D/I today. Objective Data Objective Data Vital Signs: Vital Signs Temp Pulse Resp BP Pulse Ox O2 Del Method 98.5 F 85 15 127/57 H 97 Room Air 02/23/23 08:14 02/23/23 08:14 02/23/23 08:14 02/23/23 08:14 02/23/23 08:14 02/23/23 08:29 Oxygen Delivery Method Room Air Weight: 172 lb 2.014 oz Body Mass Index (BMI) 29.5 Intake & Output: Intake and Output for Last 24 Hours 02/21/23 02/22/23 02/23/23 23:59 23:59 23:59 Intake Total 3035 / 3035 2410 / 2410 120 / 120 Output Total 1775 / 1975 1300 / 1300 450 / 450 Balance 1260 / 1060 1110 / 1110 -330 / -330 Lab / Micro Data 02/22/23 08:24 02/22/23 08:24 Labs: Laboratory Results - last 24 hr 02/22/23 08:24: Sodium 139, Potassium 3.7, Chloride 110 H, Carbon Dioxide 23.0, Anion Gap 6, BUN 27 H, Creatinine 1.24 H, Estim Creat Clear Calc 30.21, Est GFR (MDRD) Af Amer 53 L, Est GFR (MDRD) Non-Af 44 L, BUN/Creatinine Ratio 21.8 H, Glucose 146 H, Calcium 8.7 02/22/23 11:15: POC Glucose 319 H 02/22/23 16:05: POC Glucose 299 H 02/22/23 22:31: POC Glucose 237 H 02/23/23 08:12: POC Glucose 155 H Micro: Microbiology 02/20/23 19:35 Bone - 2nd Metatarsal Bone Gram Stain - Final 02/20/23 19:35 Bone - 2nd Metatarsal Bone Wound Culture - Preliminary Corynebacterium striatum 02/20/23 19:30 Bone - 2nd Metatarsal Bone Gram Stain - Final 02/20/23 19:30 Bone - 2nd Metatarsal Bone Wound Culture - Preliminary Corynebacterium striatum 02/20/23 19:30 Bone - 2nd Metatarsal Bone Anaerobic Culture - Preliminary Checking for anaerobes, further studies to follow. 02/20/23 Unknown Wound - Right Foot Gram Stain - Final 02/20/23 Unknown Wound - Right Foot Wound Culture - Preliminary Serratia marcescens Gram positive ryan 02/20/23 Unknown Wound - Right Foot Anaerobic Culture - Preliminary Checking for anaerobes, further studies to follow. Rhythm Strip Rhythm Strip: A-fib Rate: 100 Ectopy: None Physical Exam Const alert, oriented x3 and no apparent distress General Appearance: cooperative HEENT head/scalp atraumatic and external nose normal Eyes EOMs intact bilaterally General Eye: normal appearance of both eyes Neck General: normal visual inspection Resp normal respiratory effort and no retractions Effort and Inspection: able to speak in complete sentences Auscultation: wheezes Cardio Rate: regular rate Rhythm: Negative for regular rhythm Extremity General Extremity: Negative for edema Skin Wound Narrative: Bilateral foot surgical dressings in place, did not remove for exam. No drainage or bleeding noted through the dressings. Neuro moves all extremities and no focal motor deficits Speech: speech normal Psych mental status grossly normal and affect normal Appearance: grossly normal Assessment & Plan Assessment/Plan (1) Peripheral arterial disease: (2) Diabetes mellitus with diabetic polyneuropathy: (3) Non-pressure chronic ulcer of other part of left foot with necrosis of bone: PLAN: Plan Arterial studies revealed L GERMAN 0.39 (PT)/0.53(DP) with monophasic waveforms and R GERMAN 0.68(PT)/(0.85DP) and mono/biphasic waveforms. She had L and R 2nd digit amputation 02/[address] Munoz. Patient and her family remain agreeable to proceed with LLE angiogram possible intervention. Procedure is scheduled for 8 AM tomorrow in the color laboratory technician. Charges/Coding Visit Charges Inpatient E&M: 65498 Subs Hosp L2
[2023-02-23 10:04] LABS: Vancomycin, Trough Level 14.5 ug/mL (5.0-15.0)
[2023-02-23] MEDS: Meropenem 1 GM in 0.9% Normal Saline (100mL MB+) 100 ML IV ×2 (10:27→22:54)
[2023-02-23] MEDS: Vancomycin Trough/Random Due 1 LAB MC ×2 (10:28)
[2023-02-23] MEDS: Vancomycin IV 1,000 MG/200 ML BAG 200 MG IV (10:53)
[2023-02-23] MEDS: Insulin Lispro 100 UNIT/ML INSULN.PEN 14 UNIT SC ×2 (11:57→17:09)
[2023-02-23 12:38] LABS: Bedside Glucose 270 mg/dL (74-106)
--- NOTE | 2023-02-23 13:04 | PCM.RX.CS ---
Consult Antibiotic Management Pharmacy has been consulted to manage selected antiobiotic: Vancomycin Type of Intervention Type of Consult: Follow-up Suspected Infection Suspected Infection: Osteomyelitis Prior Doses of Antibiotics Prior Doses of Antibiotics Received/Current Regimen: Received 1250mg iv x 1 as initial dose followed by 1000mg iv q24h and has received 1 dose. Labs Labs: Sodium 139 mmol/L (136-145) 02/22/23 08:24 Potassium 3.7 mmol/L (3.5-5.1) 02/22/23 08:24 Chloride 110 mmol/L (98-107) H 02/22/23 08:24 Carbon Dioxide 23.0 mmol/L (21.0-32.0) 02/22/23 08:24 Anion Gap 6 (5-15) 02/22/23 08:24 BUN 27 mg/dL (7-18) H 02/22/23 08:24 Creatinine 1.24 mg/dL (0.55-1.02) H 02/22/23 08:24 Est GFR (MDRD) Af Amer 53 mL/min (>60) L 02/22/23 08:24 Est GFR (MDRD) Non-Af 44 mL/min (>60) L 02/22/23 08:24 BUN/Creatinine Ratio 21.8 RATIO (10-20) H 02/22/23 08:24 Glucose 146 mg/dL (74-106) H 02/22/23 08:24 Vancomycin Trough 14.5 ug/mL (5.0-15.0) 02/23/23 09:16 Microbiology Microbiology: Microbiology 02/20/23 19:35 Bone - 2nd Metatarsal Bone Gram Stain - Final 02/20/23 19:35 Bone - 2nd Metatarsal Bone Wound Culture - Preliminary Corynebacterium striatum 02/20/23 19:30 Bone - 2nd Metatarsal Bone Gram Stain - Final 02/20/23 19:30 Bone - 2nd Metatarsal Bone Wound Culture - Preliminary Corynebacterium striatum 02/20/23 19:30 Bone - 2nd Metatarsal Bone Anaerobic Culture - Preliminary Checking for anaerobes, further studies to follow. 02/20/23 Unknown Wound - Right Foot Gram Stain - Final 02/20/23 Unknown Wound - Right Foot Wound Culture - Preliminary Serratia marcescens Gram positive ryan 02/20/23 Unknown Wound - Right Foot Anaerobic Culture - Preliminary Checking for anaerobes, further studies to follow. Dosing Weight Weight used for dosin kg Estimated Creatinine Clearance Estimated Creatinine Clearance: 35ml/min Goal Trough Goal Trough: 15-20 mcg/mL Pharmacy Plan for Drug Dosing Pharmacy Plan for Drug Dosing: Trough today 14.5 at ~24hrs post dose. Recommend continuing same dose with another trough before 3rd dose. Pharmacy Service will continue to monitor and adjust dosing as required. Follow-Up Labs Follow-Up Labs: Trough: Vancomycin (12.5.23 0930 before 1000 dose)
--- NOTE | 2023-02-23 13:30 | PCM.PN.HOSP ---
Reason for Visit Reason for Visit: Diabetic Foot Infection Subjective Subjective Is complaining of some cramping in her left leg that has been an ongoing issue since she had her stroke several years ago. Nursing placed a hot pack on it and she states that this has made a difference. She remains on antibiotics and plan is for angio gram tomorrow on her leg with her vascular disease. Objective Data Objective Data Vital Signs: Vital Signs Temp Pulse Resp BP Pulse Ox O2 Del Method 98.5 F 64 20 H 127/57 H 97 Room Air 02/23/23 08:14 02/23/23 09:32 02/23/23 09:32 02/23/23 08:14 02/23/23 08:14 02/23/23 08:29 Oxygen Delivery Method Room Air Weight: 78.075 kg Body Mass Index (BMI) 29.5 Intake & Output: Intake and Output for Last 24 Hours 02/21/23 02/22/23 02/23/23 23:59 23:59 23:59 Intake Total 3035 / 3035 2410 / 2410 670 / 670 Output Total 1775 / 1975 1300 / 1300 950 / 950 Balance 1260 / 1060 1110 / 1110 -280 / -280 Lab / Micro Data 02/22/23 08:24 02/22/23 08:24 Labs: Laboratory Results - last 24 hr 02/22/23 16:05: POC Glucose 299 H 02/22/23 22:31: POC Glucose 237 H 02/23/23 08:12: POC Glucose 155 H 02/23/23 09:16: Vancomycin Trough 14.5 02/23/23 11:55: POC Glucose 270 H Micro: Microbiology 02/20/23 19:35 Bone - 2nd Metatarsal Bone Gram Stain - Final 02/20/23 19:35 Bone - 2nd Metatarsal Bone Wound Culture - Preliminary Corynebacterium striatum 02/20/23 19:30 Bone - 2nd Metatarsal Bone Gram Stain - Final 02/20/23 19:30 Bone - 2nd Metatarsal Bone Wound Culture - Preliminary Corynebacterium striatum 02/20/23 19:30 Bone - 2nd Metatarsal Bone Anaerobic Culture - Preliminary Checking for anaerobes, further studies to follow. 02/20/23 Unknown Wound - Right Foot Gram Stain - Final 02/20/23 Unknown Wound - Right Foot Wound Culture - Preliminary Serratia marcescens Gram positive ryan 02/20/23 Unknown Wound - Right Foot Anaerobic Culture - Preliminary Checking for anaerobes, further studies to follow. Rhythm Strip Rhythm Strip: A-fib Rate: 100 Ectopy: None Physical Exam Const alert, oriented x3, no apparent distress and well nourished Constitutional Narrative: Overweight, [place], elderly, white female, lying in bed, family at bedside, patient appears comfortable nontoxic Neuro oriented x3, moves all extremities and no focal motor deficits Psych affect normal Psych Narrative: Eye contact is good, patient is very pleasant Assessment & Plan Assessment/Plan (1) Peripheral arterial disease: (2) Diabetes mellitus with diabetic polyneuropathy: (3) Dry gangrene: (4) 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: (5) Osteomyelitis of second toe of left foot: PLAN: Plan Diabetic/neuropathic foot infections and osteomyelitis of the second digit on bilateral lower extremities -Postop day 3 second digit resections with flaps done by podiatry -Cultures thus far showing corynebacterium and Serratia -Continue meropenem and vancomycin and await ID input tomorrow -Vascular studies have been done previously and notes of severe vascular disease -Plan is for arteriogram tomorrow -Continue to hold Xarelto until okay from podiatry/vascular surgery standpoint to reinitiate -She is anticoagulated for chronic atrial fibrillation -Infectious diseases following -Wound care is following Peripheral vascular disease -Markedly abnormal PVRs -Vascular surgery following with plans for arteriogram tomorrow -Continue aspirin 81 mg daily DM-2 -Appears to be uncontrolled -Hemoglobin A1c is 10.6 on 02/21/2023 -Continue home basal insulin but increase from 20 to 26 units at bedtime as her fasting sugar was 247 today -Prandial blood sugars also remain elevated so we will increase from 10 to 14 units 3 times daily -Accu-Cheks -Hold home oral agents CKD stage IIIb -Baseline serum creatinine appears to be between 1.25 and 1.45 -Current serum creatinine 1.24 -Continue to monitor -Avoid nephrotoxins as able CAD/HTN/HPL -Previous history of CABG -Patient not on statin therapy secondary to allergies -Continue home amlodipine -Blood pressure remains markedly elevated above goal -Continue added lisinopril Persistent atrial fibrillation -Apixaban on hold until okay to reinitiate from podiatry and vascular surgery -Rate appears to be controlled without any rate controlling medications -Monitor Peripheral neuropathy -Secondary above -If patient complains of pain could consider initiation of gabapentin Obesity -Recommend weight loss -Complicates treatment, prognosis, outcomes VTE prophylaxis -Continue 3 times daily subcu heparin CODE STATUS -Currently noted is full code however unverified Charges/Coding Visit Charges Inpatient E&M: 78693 Subs Hosp L1
[2023-02-23 17:25] LABS: Bedside Glucose 169 mg/dL (74-106)
[2023-02-23] MEDS: 0.9% Saline Lock 10 ML Syringe IV (22:54)
[2023-02-23] MEDS: Insulin Glargine-YFGN 100 UNIT/ML Pen 26 UNIT SC (22:59)
[2023-02-23 23:41] LABS: Bedside Glucose 220 mg/dL (74-106)
[2023-02-24 03:10] VITALS: BP 129/63; PULSE 90; RESP 20; TEMP 36.9; O2SAT 94
[2023-02-24 06:52] VITALS: BP 143/72; PULSE 71; RESP 20; TEMP 36.8; O2SAT 94
[2023-02-24] MEDS: 0.9% Saline Lock 10 ML Syringe IV (06:55)
[2023-02-24 07:22] LABS: Absolute Neutrophil Count 4.7 X10^3/uL (2.0-7.7); Basophil# 0.03 X10^3/uL; Basophil% 0.4 % (0-1); Eosinophil# 0.14 X10^3/uL; Eosinophils% 1.7 % (0-5); Hematocrit 37.2 % (37-47); Hemoglobin 12.3 g/dL (12.0-15.0); Lymphocyte % 22.9 % (19-41); Mean Corp Hgb Conc 33.1 g/dL (32-36); Mean Corpuscular Hgb 29.7 pg (27.0-32.0); Mean Corpuscular Volume 89.9 fL (81-99); Mean Platelet Vol. 11.1 fl (6.2-12.0); Monocyte# 1.45 X10^3/uL; Monocyte% 17.4 % (0-10); NRBC Flagged by Analyzer 0 % (0-5); Neutrophil # 4.68 X10^3/uL (2.7-7.7); Neutrophil % 56.3 % (47-70); Platelet Count 151 K/mm3 (150-450); RBC Distribution Width CV 13.9 % (11.6-14.6); RBC Distribution Width SD 45.2 fl (35.1-43.9); Red Blood Count 4.14 M/mm3 (4.2-5.4); White Blood Count 8.3 K/mm3 (4.4-11.0)
[2023-02-24 07:55] LABS: Anion Gap 5 (5-15); BUN 51 mg/dL (7-18); BUN/Creat Ratio 32.9 RATIO (10-20); Calcium,Total 9.1 mg/dL (8.5-10.1); Chloride 111 mmol/L (98-107); Creatinine, Serum 1.55 mg/dL (0.55-1.02); EST Glomerular Filtration Rate 34 mL/min (>60); Est Glom Filt Rate - Afr Amer 41 mL/min (>60); Estimated Creatinine Clearance 24.16 ml/min; Glucose 169 mg/dL (74-106); Potassium 4.2 mmol/L (3.5-5.1); Sodium Level 136 mmol/L (136-145)
--- NOTE | 2023-02-24 07:59 | WOUNDNOTE ---
Pt is currently off the unit for an angiogram.
--- NOTE | 2023-02-24 08:36 | PCM.PN.SRG ---
Subjective Subjective Mr. Drew is a 82-year-old diabetic female with attempts at bedside today for bilateral dressing changes. Patient was off to [facility] with Dr. Philippe for intervention. According to nursing, no acute events overnight over the weekend. Patient is doing well. POD # 4 status post bilateral partial excision of bone second digit with advancement flap closure. DOS: 02/20/2023. Objective Data Objective Data Vital Signs: Vital Signs Temp Pulse Resp BP Pulse Ox O2 Del Method 98.2 F 71 20 H 143/72 H 94 Room Air 02/24/23 06:52 02/24/23 06:52 02/24/23 06:52 02/24/23 06:52 02/24/23 06:52 02/24/23 06:52 Oxygen Delivery Method Room Air Weight: 78.075 kg Body Mass Index (BMI) 29.5 Intake & Output: Intake and Output for Last 24 Hours 02/22/23 02/23/23 02/24/23 23:59 23:59 23:59 Intake Total 2410 / 2410 1502.5 / 1502.5 120 / 120 Output Total 1300 / 1300 2275 / 2275 700 / 700 Balance 1110 / 1110 -772.5 / -772.5 -580 / -580 Lab / Micro Data 02/24/23 07:05 02/24/23 07:05 Labs: Laboratory Results - last 24 hr 02/23/23 09:16: Vancomycin Trough 14.5 02/23/23 11:55: POC Glucose 270 H 02/23/23 17:07: POC Glucose 169 H 02/23/23 22:38: POC Glucose 220 H 02/24/23 07:05: WBC 8.3, RBC 4.14 L, Hgb 12.3, Hct 37.2, MCV 89.9, MCH 29.7, MCHC 33.1, RDW Std Deviation 45.2 H, RDW Coeff of Monique 13.9, Plt Count 151, MPV 11.1, Immature Gran % (Auto) 1.300 H, Neut % (Auto) 56.3, Lymph % (Auto) 22.9, [place] % (Auto) 17.4 H, Eos % (Auto) 1.7, Baso % (Auto) 0.4, Absolute Neuts (auto) 4.7, Absolute Lymphs (auto) 1.90, Nucleated RBC % 0, Sodium 136, Potassium 4.2, Chloride 111 H, Carbon Dioxide 20.0 L, Anion Gap 5, BUN 51 H, Creatinine 1.55 H, Estim Creat Clear Calc 24.16, Est GFR (MDRD) Af Amer 41 L, Est GFR (MDRD) Non-Af 34 L, BUN/Creatinine Ratio 32.9 H, Glucose 169 H, Calcium 9.1 Micro: Microbiology 02/20/23 19:35 Bone - 2nd Metatarsal Bone Gram Stain - Final 02/20/23 19:35 Bone - 2nd Metatarsal Bone Wound Culture - Preliminary Corynebacterium striatum 02/20/23 19:35 Bone - 2nd Metatarsal Bone Anaerobic Culture - Final No anaerobic bacteria isolated. 02/20/23 Unknown Wound - Right Foot Gram Stain - Final 02/20/23 Unknown Wound - Right Foot Wound Culture - Final Serratia marcescens Corynebacterium striatum 02/20/23 Unknown Wound - Right Foot Anaerobic Culture - Final No anaerobic bacteria isolated. 02/20/23 19:30 Bone - 2nd Metatarsal Bone Gram Stain - Final 02/20/23 19:30 Bone - 2nd Metatarsal Bone Wound Culture - Preliminary Corynebacterium striatum 02/20/23 19:30 Bone - 2nd Metatarsal Bone Anaerobic Culture - Final No anaerobic bacteria isolated. Rhythm Strip Rhythm Strip: A-fib Rate: 100 Ectopy: None Physical Exam Narrative Unable to obtain patient was off floor. Assessment & Plan Assessment/Plan (1) Non-pressure chronic ulcer of other part of left foot with necrosis of bone: PLAN: At the time of bedside interview and bilateral foot dressing changes. Patient was off with vascular surgery to the [facility] for intervention. POD # 4 status post bilateral partial excision of bone second digit with advancement flap closure. DOS: 02/20/2023. Dressing change orders given to wound care nurse. Betadine soaked Adaptic to incision sites bilateral, 4 x 4, Kerlix wrap, single-layer Colten. Wound Cx: S. marcescens, C. strostum Sx Cx: C. strostum, [facility] will send out Cx for susceptibility. Path: Pending Medicine: On board, medical management Vascular: On board Podiatry will continue to follow patient while she is in house. Susceptibility for microbiology organisms will take a few days per microbiology. Podiatry is okay for patient to discharge back to her facility once cleared by medicine and vascular teams. The organism in question as well as infected bone was completely removed during the time of operation to bilateral feet. I will personally follow-up with culture and facilitate a prescription with the patient's nursing facility once cultures return. Please reach out to Dr. Munoz with any questions or concerns. Thank you for letting me be involved in the patient's care. (2) Dry gangrene: (3) 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: PLAN: Continue strict glucose control while the patient is in house. (4) Peripheral arterial disease:
--- NOTE | 2023-02-24 09:50 | CASEMGMT ---
Addendum entered by Alexia Mcgee 02/24/23 12:30: Social Work TONIA spoke w/playground attendant, the orders are in for the wound care, pt needs dressing changes every three days, and pt can be discharged today. TONIA faxed it to [facility], spoke w/the Dir of nursing Ariadne, she states will probably set pt up with [facility] rather than [facility]. TONIA let physician know, will d/c pt today. JOO Nichols Addendum entered by Alexia Mcgee 02/24/23 12:21: Social Work JAYA Ron left a message back and stated pt can return as long as does not need IVs, and also inquired about pt's wound care. TONIA spoke w/Verito, playground attendant, she is reaching out to the doctor to find out how often dressing changes are needed. TONIA called Ariadne back, SW let her know that pt does not need IV's, and we are just trying to find out the frequency of dressing changes. As per Ariadne, they will refer pt to [facility], just to put in orders. SW to let physician know, faxed podiatry note. JOO Nichols Original Note: Social Work TONIA reviewed chart, pt is needing a lot of assist in PT. TONIA faxed PT/OT notes to [facility] to see if pt is okay to return. TONIA called and spoke with the JAYA Ron, asked her to review the therapy notes to see if they can take pt back. She also asked about pt's wound care. TONIA will check into this and let her know. JOO Nichols
--- NOTE | 2023-02-24 10:12 | OP.PCM_ITS ---
Report of Operation Date of Procedure: 02/24/23 Pre-Operative Diagnosis: atherosclerosis with ulceration, bilateral lower extre mities Post-Operative Diagnosis: same Surgery/Procedure Performed:: aortogram, left lower extremity angiogram IVUS left peroneal/TP trunk, SFA/popliteal arteries atherectomy/angioplasty left popliteal artery Surgeon: Dipak Philippe Type of Anesthesia: Local and Sedation,Conscious Estimated Blood Loss (mL): 7 Description of Procedure: HPI: Patient is an 82-year-old female who presented with bilateral lower extremity digit wounds. She has a history of prior digit amputation as well as previous lower extremity interventions. Her noninvasive vascular studies revealed significant occlusive disease on the left lower extremity with mild to moderate on the right. She is taken now for angiogram with possible invention of the left lower extremity. Description of procedure: Upon obtaining form consent and verification correct patient procedure site patient taken to the [facility] where she was positioned prepped and draped in usual sterile fashion. Time was performed conscious sedation administered with Versed and fentanyl. Skin overlying the right common femoral artery was anesthetized with 1% lidocaine the vessel accessed under ultrasound guidance with a micropuncture needle wire. This was then exchanged out for micropuncture sheath through which hand-injection femoral angiogram was performed revealing satisfactory placement with no extravasation or dissection. Through the micropuncture sheath Bentson wire was advanced and the micropuncture sheath exchanged for short 6 Solomon Islander sheath. Over the Bentson wire Omni Flush catheter was advanced into the abdominal aorta and a digital subtraction aorta gram pelvic angiogram with CO2 was performed. We then navigated into the contralateral iliac system advancing our catheter into the distal external iliac artery. From this position further subtraction CO2 angiography of the left lower extremity was performed. In order to better visualize the infrapopliteal vessels we utilized a Bentson wire and angled glide catheter to navigate into the superficial femoral artery advancing our catheter into the popliteal artery. From this position further CO2 and contrast imaging was obtained. This revealed total occlusion of the P2 and P3 segments of the popliteal artery. This also revealed tibial disease however the peroneal artery was the dominant runoff to the foot continuous without significant atherosclerosis. It was felt that treatment of the popliteal lesion would provide enough improvement in perfusion to heal the toe amputation site so the Bentson wire was readvanced and the glide catheter and short 6 [place]er sheath were exchanged out for a long 6 x 65 Terumo destination sheath was advanced and positioned in the distal SFA. The patient was in heparinized allowed circuit for 3 minutes and serial ACT's utilized for heparin dosing. Next using a straight quick cross catheter and a command 18 wire we engaged the lesion and were able to traverse while staying within true lumen advancing our wire and catheter ultimately into the peroneal artery. The wire was then withdrawn and hand-injection angiography via the catheter confirmed placement within the true lumen of the peroneal artery. The Sun [employer] wire was then advanced to the catheter and the catheter then withdrawn. Next a intravascular sound probe was advanced over the wire and recorded pullback performed of the peroneal artery, tibioperoneal trunk artery, popliteal artery, SFA. This revealed accurate reference vessel sizing as well as further define the extent and severity of the disease. There was total occlusion in the P2 and P3 popliteal segment but also the P1 segment had 2 focal areas of greater than 50% stenosis. Is felt the treatment of the entirety of the length of the popliteal artery was warranted and a Spaces 2 Host [place] rotational atherectomy device was brought in the field prepped for manufactures instructions. This was then engaged across the entirety of the length of the lesion for 2 passes. After completion of the atherectomy device withdrawn and hand-injection angiography confirmed satisfactory luminal gain with no extravasation or dissection. Next a Michelle balloon 5 x 120 was advanced over the wire to the distal extent of the lesion and inflated to sub-nominal and then deflated and pulled into the more proximal segment lesion and inflated to nominal. The balloon was then deflated withdrawn and a 6 x 120 michelle balloon was advanced over the wire and positioned in the proximal half of the lesion and inflated to nominal and then deflated withdrawn. Repeat angiography confirmed satisfactory lesion response with no extravasation dissection no residual stenosis. There was what appeared to be spasm in the peroneal artery so verapamil and nitro were infused via the sheath. Repeat imaging confirmed improvement in the spasm with return to normal lumen size of the tibial vessels. Next a Andujar Niru Germán 5 x 120 drug-coated angioplasty was advanced to the distal end of the lesion and inflated to nominal for 1 minute then deflated withdrawn. A second Andujar Niru Germán 6 x 120 was next advanced into the proximal segment inflated nominal for a minute and then deflated withdrawn. Repeat imaging revealed satisfactory result of the SFA popliteal intervention with no extravasation no dissection. There was again some mild spasm in the peroneal artery so the wire was withdrawn in the hopes that this would resolve itself. The long 6 [place] Islander sheath and exchanged out for short 6 [place] Islander sheath and a minx closure device was deployed followed by 2 minutes of manual pressure. The patient was taken the recovery room for bedrest prior to return to the [facility]. Radiographic interpretation: Abdominal aorta normal caliber with scattered diffuse calcification but no stenosis Right common and external iliac arteries patent with scattered diffuse calcification and tortuosity but no stenosis. Left common and external iliac arteries patent with scattered diffuse calcification but no stenosis. Common artery patent with no significant atherosclerosis or stenosis. Profundofemoral artery poorly visualized due to CO2 utilization. Superficial femoral artery patent with mild diffuse atherosclerosis but no stenosis. Popliteal artery with 2 areas of high-grade stenosis proximally in the P1 segment followed by total occlusion of the P2 P3 segments. All these were resolved with satisfactory appearance after intervention. Tibioperoneal trunk patent with mild scattered calcification but no stenosis. Posterior tibial artery totally occluded at origin with no reconstitution. Peroneal artery patent with no significant atherosclerosis or stenosis, patent continues to the foot. Filling of all foot vessels via the peroneal artery. Anterior tibial artery patent at origin with moderate calcified atherosclerosis proximally with total occlusion in the midportion of the lower leg.
[2023-02-24] MEDS: Insulin Lispro 100 UNIT/ML INSULN.PEN 14 UNIT SC (13:08)
[2023-02-24] MEDS: Insulin Lispro 100 UNIT/ML INSULN.PEN SC (13:09)
[2023-02-24 13:16] LABS: ACT Activated Clotting Time 250 sec (74-137)
[2023-02-24 14:07] LABS: Bedside Glucose 162 mg/dL (74-106)
[2023-02-24] MEDS: Vancomycin IV 1,000 MG/200 ML BAG 200 MG IV (14:25)
--- NOTE | 2023-02-24 14:26 | DS.PCM_ITS ---
Providers Date of Admission: 02/20/23 Date of Discharge: 02/24/23 Primary Care Physician: Юлия Jean-Baptiste DO Consultations 02/20/23 13:47 Consult: Podiatry Routine Consulting Provider: Joshua Munoz Reason for Consult: neuropathic foot wounds EMERGENT Consult: No MD Notified: Yes Date Notified: 02/20/23 Time Notified: 11:37 Method of Notification: Verbal 02/21/23 06:14 Consult: Onc/Wound/sound editor Routine Comment: Reason for Consult:: B/L feet, abdomen 02/21/23 08:14 Consult: Vascular Surgery Routine Consulting Provider: Dipak Philippe Reason for Consult: PVD and foot infections EMERGENT Consult: No MD Notified: Yes Date Notified: 02/21/23 Time Notified: 11:14 Method of Notification: can operator 02/21/23 08:18 Consult: Infectious Disease Routine Consulting Provider: Loki Rico Reason for Consult: osteo with multiple abx allergies EMERGENT Consult: No MD Notified: Yes Date Notified: 02/21/23 Time Notified: 11:13 Method of Notification: Answering Service Reason For Visit: NEUROPATHIC FOOT INFECTION Diagnosis Discharge Diagnosis (1) Non-pressure chronic ulcer of other part of left foot with necrosis of bone: Status: Chronic Code(s): L97.524 - Non-pressure chronic ulcer of other part of left foot with necrosis of bone (2) Dry gangrene: Status: Acute Code(s): I96 - Gangrene, not elsewhere classified (3) 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: Status: Acute Code(s): E11.628 - Type 2 diabetes mellitus with other skin complications; L08.9 - Local infection of the skin and subcutaneous tissue, unspecified (4) Peripheral arterial disease: Status: Acute Code(s): I73.9 - Peripheral vascular disease, unspecified Medications at Discharge Home Medications glyburide 5 mg tablet 2.5 mg PO DAILY 07/04/22 acetaminophen 325 mg tablet 650 mg (2 x 325 mg) PO Q6H PRN PRN Pain 1-10 Or Fever>100.7 #0 tabs 08/13/22 amlodipine 5 mg tablet 5 mg PO DAILY #0 tabs 08/13/22 apixaban 5 mg tablet 5 mg PO BID #30 tabs 08/13/22 insulin lispro 100 unit/mL subcutaneous pen (Humalog KwikPen (U-100) Insulin) See Protocol subcut TIDAC #0 mL 08/13/22 ciprofloxacin HCl 250 mg tablet 250 mg PO BID #10 tabs 02/24/23 clindamycin HCl 300 mg capsule 300 mg PO TID #15 caps 02/24/23 clopidogrel 75 mg tablet (Plavix) 75 mg PO DAILY #30 tabs 02/24/23 insulin glargine-yfgn 100 unit/mL (3 mL) subcutaneous pen 26 unit (0.26 mL) subcut QPM #0 mL 02/24/23 lisinopril 20 mg tablet 20 mg PO DAILY #30 tabs 02/24/23 Hospital Course Operations - (aortogram, left lower extremity angiogram IVUS left peroneal/TP trunk, SFA/popliteal arteries atherectomy/angioplasty left popliteal artery/bilateral second digit resection with flap closure) Procedures - (PVRs) Summary of Care Provided Minutes Spent on Discharge: 39 Hospital Course: Mrs. Vargas is an Hoahaoism 82-year-old white female presented emergency department at [facility] on 02/20/2023 after being sent in for evaluation of bilateral second toe foot infections by her custom motorcycle painter Dr. Munoz. He felt that the patient should be admitted to the hospital for further treatment including surgical debridement and possible amputation of her toes. Vital signs on presentation were demonstrated temperature of 97.5, heart rate was 111, blood pressure was 167/124 with repeat at 180/83, respiratory rate was 20 and oxygen saturations were 100% on room air. Her CBC showed a leukocytosis with a white count of 14.3 but no left shift. Her ESR was elevated at 64. Her chemistry panel showed elevated serum creatinine 1.51 with a baseline of 1.25-1.45. Her serum glucose was markedly elevated at 331 and her CRP was 38.4. She failed outpatient antibiotics twice prior to presenting. She was started on antibiotics and seen and evaluated by Dr. Munoz who took her for partial excision of bone of the second digit of bilateral feet as well as advanced flap closure of bilateral feet on 02/20/2023. She is noted to have moderately severe arterial occlusive disease in bilateral lower extremity and vascular surgery was consulted. She was maintained on meropenem throughout her hospital course and transition to Cipro and clindamycin for another 5 days at the request of infectious disease at the time of discharge. Prescriptions for these medications were sent to her local pharmacy. Medications were renally dosed. With regards to her vascular disease she was taken to surgery on 02/24/2023 at which time an aortogram, left lower extremity angiogram, IVUS of the left peroneal/TP trunk and SFA/popliteal arteries with atherectomy and angioplasty were performed of the popliteal artery. Per discussion with vascular surgery they wanted her transition off of aspirin and start Plavix 75 mg daily and felt that she could restart her Eliquis tomorrow on 02/25/2023 and it from his standpoint she was stable for discharge. I discussed the case with infectious disease and they recommended the above. Her hemoglobin A1c was found to be 10.6 so we did adjust her insulin regimen some. We also added lisinopril 20 mg daily as she has had blood pressures fairly consistently elevated blood pressures above goal. Her blood pressures did improve with the addition of the lisinopril. She will follow-up with podiatry as an outpatient and they recommended ongoing wound care with Betadine soaked Adaptic to the incision sites bilaterally with 4 x 4 Curlex wrap and a singular layer of Colten bandage to be placed every 3 days. Physical and Occupational Therapy evaluated the patient during her hospital stay and did not feel that she needed ongoing care. The plan is to return back to [place] in [facility] where she will receive home health care. She will need to follow-up with Dr. Philippe from vascular surgery for possible further intervention within the next [address] Morfin's office will make an appointment with her as an outpatient. She was discharged back to her facility in stable condition on 02/24/2023. Patient will need a follow-up basic metabolic profile in 5 to 7 days to reevaluate her renal function with the addition of lisinopril and contrast utilization during her hospital course. Discharge diagnoses: Bilateral second digit diabetic/neuropathic foot infection/osteomyelitis Peripheral vascular disease [id number] Hypertension-uncontrolled CKD stage IIIb CAD Hypertension Hyperlipidemia Persistent atrial fibrillation Peripheral neuropathy Obesity Physical Exam Const alert, oriented x3, no apparent distress and well nourished; Negative for average body habitus Constitutional Narrative: Overweight, Hoahaoism, elderly, white female, lying in bed, family at bedside, patient appears comfortable nontoxic General Appearance: cooperative, comfortable, well kempt and well developed Orientation / Consciousness: awake, oriented to person, oriented to place and oriented to time Exam Limitations: no limitations Nutritional Appearance: overweight HEENT normocephalic, head/scalp atraumatic and moist oral mucous membranes HEENT Narrative: Moderate hearing loss, dentition is poor, Mallampati is 2, no thrush Eyes PERRL, EOMs intact bilaterally and conjunctivae normal Eyes Narrative: No scleral icterus Neck no lymphadenopathy and supple Neck Narrative: Trachea midline, no thyroid enlargement Resp normal respiratory effort, no retractions, no use of accessory muscles and clear to auscultation bilaterally Auscultation: Negative for rales, rhonchi or wheezes Cardio regular rate, S1 normal heart sound, S2 normal heart sound, no murmurs, no rub, no gallops and no clicks; Negative for regular rhythm Cardio Narrative: Irregular irregular rhythm with controlled rate GI normal to inspection, nondistended, normoactive bowel sounds, soft to palpation and non-tender GI Narrative: There are several well-healed scars noted over the anterior abdominal wall on the midline Extremity no clubbing, cyanosis or edema Extremity Narrative: Bilateral lower extremities with postoperative dressings in place-Dressings are clean and dry Skin no rashes or lesions noted, skin turgor normal and no jaundice Neuro oriented x3, CN's II-XII intact bilaterally, moves all extremities and no focal motor deficits Neuro Narrative: Significantly decreased sensation bilateral lower extremities, generalized weakness noted Sensorium / Orientation: awake, alert, oriented to person, oriented to place and oriented to time Speech: speech normal Psych affect normal Psych Narrative: Eye contact is good, patient is very pleasant Weight / BMI Weight Weight: 78.075 kg Body Mass Index (BMI) 29.5 ABG / Lab / Microbiology Data 02/24/23 07:05 02/24/23 07:05 Laboratory: Laboratory Results - last 24 hr 02/23/23 17:07: POC Glucose 169 H 02/23/23 22:38: POC Glucose 220 H 02/24/23 07:05: WBC 8.3, RBC 4.14 L, Hgb 12.3, Hct 37.2, MCV 89.9, MCH 29.7, MCHC 33.1, RDW Std Deviation 45.2 H, RDW Coeff of Monique 13.9, Plt Count 151, MPV 11.1, Immature Gran % (Auto) 1.300 H, Neut % (Auto) 56.3, Lymph % (Auto) 22.9, Sutter % (Auto) 17.4 H, Eos % (Auto) 1.7, Baso % (Auto) 0.4, Absolute Neuts (auto) 4.7, Absolute Lymphs (auto) 1.90, Nucleated RBC % 0, Sodium 136, Potassium 4.2, Chloride 111 H, Carbon Dioxide 20.0 L, Anion Gap 5, BUN 51 H, Creatinine 1.55 H, Estim Creat Clear Calc 24.16, Est GFR (MDRD) Af Amer 41 L, Est GFR (MDRD) Non-Af 34 L, BUN/Creatinine Ratio 32.9 H, Glucose 169 H, Calcium 9.1 02/24/23 09:15: Activated Clotting Time 250 H 02/24/23 13:04: POC Glucose 162 H Microbiology: Microbiology 02/20/23 19:35 Bone - 2nd Metatarsal Bone Gram Stain - Final 02/20/23 19:35 Bone - 2nd Metatarsal Bone Wound Culture - Preliminary Corynebacterium striatum 02/20/23 19:35 Bone - 2nd Metatarsal Bone Anaerobic Culture - Final No anaerobic bacteria isolated. 02/20/23 19:30 Bone - 2nd Metatarsal Bone Gram Stain - Final 02/20/23 19:30 Bone - 2nd Metatarsal Bone Wound Culture - Final Corynebacterium striatum 02/20/23 19:30 Bone - 2nd Metatarsal Bone Anaerobic Culture - Final No anaerobic bacteria isolated. 02/20/23 Unknown Wound - Right Foot Gram Stain - Final 02/20/23 Unknown Wound - Right Foot Wound Culture - Final Serratia marcescens Corynebacterium striatum 02/20/23 Unknown Wound - Right Foot Anaerobic Culture - Final No anaerobic bacteria isolated. D/C Instructions Discharge Diet: Low fat / Low cholesterol and 1600 Calorie Control Diet Discharge Activity: Use Walker and - (sponge bath for now) Meaningful Use Info Meaningful Use Diagnoses (Choose all that apply): None applicable Discharge Plan Admission Admit Date/Time: 02/20/23 11:30 Primary Reason for Your Visit: Bilateral lower extremity diabetic foot infections/osteomyelitis Attending Provider: Jillian Nj Primary Care Provider: Юлия Jean-Baptiste Consulting Providers: Joshua Munoz; Loki Rico; Dipak Philippe Instructions Additional Instructions / Restrictions: 1. Please see attached sheet for dressing change instructions 2. Home health care to be ordered to include nursing and physical therapy 3. Please obtain a complete blood count and basic metabolic profile in the next 5 days Discharge Orders/Prescriptions Prescriptions: New lisinopril 20 mg Tablet 20 mg PO DAILY Qty: 30 1RF insulin glargine-yfgn 100 unit/mL (3 mL) Insulin Pen 26 unit subcut QPM Qty: 0 0RF clopidogrel [Plavix] 75 mg tablet 75 mg PO DAILY Qty: 30 1RF clindamycin HCl 300 mg capsule 300 mg PO TID Qty: 15 0RF ciprofloxacin HCl 250 mg tablet 250 mg PO BID Qty: 10 0RF Continued glyburide 5 mg Tablet 2.5 mg PO DAILY acetaminophen 325 mg Tablet 650 mg PO Q6H PRN PRN (Reason: Pain 1-10 Or Fever>100.7) Qty: 0 0RF amlodipine 5 mg Tablet 5 mg PO DAILY Qty: 0 0RF insulin lispro [Humalog KwikPen Insulin] 100 unit/mL Insulin Pen See Protocol subcut TIDAC Qty: 0 0RF Protocol: 3. Sliding Scale Insulin Med Dosing Condition: 150-189 mg/dl = 1 unit Condition: 190-229 mg/dl = 2 units Condition: 230-269 mg/dl = 3 units Condition: 270-309 mg/dl = 4 units Condition: 310-349 mg/dl = 5 units Condition: 350-399 mg/dl = 6 units Condition: 400-449 mg/dl = 7 units Condition: Greater than 449 call physician Protocol Text: - Use for Total Daily Dose of Insulin 37-55 units - Obsese, infected, or steroid patients MEDIUM DOSING ALGORITHIM Held apixaban 5 mg tablet 5 mg PO BID Qty: 30 0RF Hold Instructions: Resume on 02/25/23. Rx Instructions: start 08/18/2022. Discontinued insulin glargine [Lantus Solostar U-100 Insulin] 100 unit/mL (3 mL) insulin pen 20 unit subcut QPM Qty: 15 0RF Referrals / Follow Up: Dipak Philippe MD [Med Staff - Active Staff] - Within 2 Weeks Joshua Munoz DPM [Med Staff - Active Staff] - See Referral Note (Dr. Munoz's office is to call) Юлия Jean-Baptiste DO [Primary Care Provider] - Within 1 Week Disposition Disposition (needs filled in before D/C Order can be placed): Assisted Living Charges/Coding Visit Charges Inpatient E&M: 14221 Disch Hosp >30min
[2023-02-24 14:28] VITALS: BP 154/80; PULSE 87; RESP 16; TEMP 37.3; O2SAT 98
--- NOTE | 2023-02-24 15:03 | PHA.DC_ITS ---
Pharmacy [facility] Service has performed discharge medication reconciliation and counseling for this patient. The patient's discharge medication list was reviewed for discrepancies and discrepancies were resolved. The patient was counseled on the following discharge medications and changes in medications for homegoing were reviewed. The Reason for Use, instructions for use, and potential side effects were reviewed for all new medications. The patient's questions regarding all of their medications were answered. 1. Ciprofloxacin 250 mg PO BID x 5 days 2. Clindamycin 300 mg PO TID x 5 days 3. Clopidogrel 75 mg PO daily 4. Lantus 26 units QPM (dose increase) 5. Lisinopril 20 mg PO daily The patient was able to verbally demonstrate an understanding of their discharge medications. Medications at Discharge Home Medications glyburide 5 mg tablet 2.5 mg PO DAILY 07/04/22 acetaminophen 325 mg tablet 650 mg (2 x 325 mg) PO Q6H PRN PRN Pain 1-10 Or Fever>100.7 #0 tabs 08/13/22 amlodipine 5 mg tablet 5 mg PO DAILY #0 tabs 08/13/22 apixaban 5 mg tablet 5 mg PO BID #30 tabs 08/13/22 insulin lispro 100 unit/mL subcutaneous pen (Humalog KwikPen (U-100) Insulin) See Protocol subcut TIDAC #0 mL 08/13/22 ciprofloxacin HCl 250 mg tablet 250 mg PO BID #10 tabs 02/24/23 clindamycin HCl 300 mg capsule 300 mg PO TID #15 caps 02/24/23 clopidogrel 75 mg tablet (Plavix) 75 mg PO DAILY #30 tabs 02/24/23 insulin glargine-yfgn 100 unit/mL (3 mL) subcutaneous pen 26 unit (0.26 mL) subcut QPM #0 mL 02/24/23 lisinopril 20 mg tablet 20 mg PO DAILY #30 tabs 02/24/23
[2023-02-24] MEDS: Lisinopril 20 MG Tablet PO (15:04)
[2023-02-24] MEDS: amLODIPine 5 MG Tablet PO (15:04)
--- NOTE | 2023-02-24 15:15 | CASEMGMT ---
Social Work - Discharge Note Received notice patient is slated for discharge today. collection systems worker Alexia Mcgee worked with [facility] DON today, to ensure assisted living can take patient back with current level of care needs. Met with patient and daughter Xochilt today, to review plan for discharge and communications with the assisted living. Patient and daughter agreeable with plan to return to [facility]. Daughter asked about transportation to [facility], as does not feel able to get patient into the car. Discussed that as patient is showing assist of 2 for transfers, this would be appropriate to arrange for ambulance transport. Patient and daughter agreeable. Arranged [facility] at 1700 today. Faxed discharge instructions to confirmed fax at [phone], however fax continued to show error. After 3rd attempt at faxing, faxing did go through. Daughter picking up medications from [facility]. [facility] setting up skilled home health care for nursing and PT. No other services requested or indicated. Note, when this screen writer in room, the patient talkative, reflective on life experiences including the aging process. Patient tearful intermittently; this screen writer offered supportive listening, reflection, and encouragement. Encouraged patient to take one day at a time. Patient appearing sad with aging process and medical complications over the last couple of years, though was able to talk of some positivity in making friendships since living at [facility]. Plan: Return to [facility] living, Skilled home health with [facility] being arranged for nursing and therapy as per [facility] staff. -SCOTT Dunaway
--- NOTE | 2023-02-24 15:40 | WOUNDNOTE ---
wound photo: right foot
--- NOTE | 2023-02-24 15:41 | WOUNDNOTE ---
wound photo: left foot
--- NOTE | 2023-02-24 15:45 | WOUNDNOTE ---
Ileostomy appliance changed. stoma is pink and moist. peristomal skin is intact. applied a new 2 piece flat Rodriguez appliance with a small amount of stoma paste. pt tolerated well.
[2023-02-24] MEDS: Acetaminophen 325 MG Tablet 650 MG PO (16:45)
[2023-02-24] MEDS: oxyCODONE 5 MG Tablet PO (16:45)
--- NOTE | 2023-02-24 17:05 | NURSING ---
[facility] here to pepper picker pt via cot.
== END 2023-02-24 17:00 | disposition home or self-care (01) | DRG 629 ==
LOC: ED 11:28 → MS3 11:45
PROVIDERS: Podiatrist Foot & Ankle Surgery; Admitting Provider Internal Medicine; Emergency Provider Emergency Medicine; PCP Family Medicine; Visit Provider Internal Medicine
PROC: 0QBQ0ZZ Excision of Right Toe Phalanx, Open Approach (ICD-10-PCS; principal; 2023-02-20 16:00)
DX: E11.69 Type 2 diabetes mellitus with other specified complication (principal); I13.0 Hypertensive heart and chronic kidney disease with heart failure and stage 1 through stage 4 chronic kidney disease, or unspecified chronic kidney disease; I96 Gangrene, not elsewhere classified; I48.20 Chronic atrial fibrillation, unspecified; M86.8X7 Other osteomyelitis, ankle and foot; E11.610 Type 2 diabetes mellitus with diabetic neuropathic arthropathy; E11.42 Type 2 diabetes mellitus with diabetic polyneuropathy; E11.22 Type 2 diabetes mellitus with diabetic chronic kidney disease; L03.031 Cellulitis of right toe; E11.621 Type 2 diabetes mellitus with foot ulcer; I50.9 Heart failure, unspecified; E11.51 Type 2 diabetes mellitus with diabetic peripheral angiopathy without gangrene; F03.90 Unspecified dementia, unspecified severity, without behavioral disturbance, psychotic disturbance, mood disturbance, and anxiety; N18.32 Chronic kidney disease, stage 3b; L97.524 Non-pressure chronic ulcer of other part of left foot with necrosis of bone; Z79.4 Long term (current) use of insulin; E78.5 Hyperlipidemia, unspecified; I25.10 Atherosclerotic heart disease of native coronary artery without angina pectoris; E66.9 Obesity, unspecified; L03.032 Cellulitis of left toe; Z79.2 Long term (current) use of antibiotics; Z82.3 Family history of stroke; Z66 Do not resuscitate; Z79.01 Long term (current) use of anticoagulants; Z79.82 Long term (current) use of aspirin; Z68.29 Body mass index [BMI] 29.0-29.9, adult
CPT/HCPCS: 36200; 36245; 36415; 37225; 37252; 37253; 73630; 73660; 75625; 75710; 76000; 76937; 80048; 80202; 82962; 83036; 85025; 85347; 85652; 86140; 87070; 87075; 87077; 87101; 87102; 87186; 87205; 87206; 88305; 88311; 93005; 93923; 94640; 97110; 97162; 97166; 97530; 97535; 97802; 99152; 99153; 99284; C1724; C1753; C1760; C1769; C1894; C2623; J2185; J7030; J7040; J7050; J7120; A4216; C1887

== ENCOUNTER → 2023-04-03 | Outpatient (CLI) | payer SELFPAY, OTHER ==
--- NOTE | 2023-04-03 14:45 | ADUL_ITS ---
Reason For Study: S/P Lt popliteal intervention Left Velocities Ext Iliac Artery, dist = 115 cm./sec. Common Femoral Artery, mid = 140.3 cm./sec. Supf. Femoral Artery, prox = 186.4 cm./sec. Supf. Femoral Artery, mid = 89.3 cm./sec. Supf. Femoral Artery, dist = 66.2 cm./sec. Profunda Femoral Artery = 85.7 cm./sec. Popliteal Artery, proximal, = 60 cm./sec. Popliteal Artery, mid = 80.9 cm./sec. Popliteal Artery, distal = 102.1 cm./sec. IMPREGNATION OPERATOR, No flow. IMPREGNATION OPERATOR, ankle, 23.5 cm/sec. PeroA, prox, No flow. Peroneal Artery, mid = 102.1 cm./sec. Peroneal Artery,dist. = 94.8 cm./sec. Ant.Tibial Artery, prox = 33.9 cm./sec. Ant Tibial Artery, mid = 73.6 cm./sec. Ant. Tibial Artery, distal = 74.7 cm./sec. DPA, 56.4 cm/sec. Procedure Exam performed in department. VL/US Art Duplex Unilat Lower Ext Interpretation Summary Patent left popliteal artery intervention with normal velocieis. Posterior tibial artery with no flow visualized until ankle where it is monopha sic Proximal peroneal artery with no flow visualized with preserved waveforms at mi d and distal. Ordering Physician: Dipak Philippe Referring Physician: Юлия Jean-Baptiste Performed By: Bridgett Nguyen RVT
--- NOTE | 2023-04-03 14:45 | ART_ITS ---
Reason For Study: S/P Lt popliteal intervention Procedure A bilateral lower extremity continuous wave Doppler with analog waveform analysis and ankle brachial indexes. Left Segmental Pressures Left brachial= 172mmHg. Left posterior tibial artery = 172mmHg. Left dorsalis pedis artery = 174mmHg. The left dorsalis pedis waveforms are biphasic. The left posterior tibial artery waveforms are biphasic. Right Segmental Pressures Right brachial= 174mmHg. Right posterior tibial artery = 107mmHg. Right dorsalis pedis artery = 170mmHg. The right dorsalis pedis waveforms are biphasic. The right posterior tibial artery waveforms are biphasic. Indices The right ankle brachial index by the dorsalis pedis is 0.98. The right ankle brachial index by the posterior tibial artery is 0.61. The left ankle brachial index by the dorsalis pedis is 1.00. The left ankle brachial index by the posterior tibial artery is 0.99. VL/Ankle Brachial Index Interpretation Summary Right GERMAN 0.98, mild arterial insufficiency. Doppler/PVR waveforms of the right ankle mildly diminished at rest. Left GERMAN 1, normal. Doppler/PVR waveforms of the left ankle mildly diminshed at rest. Ordering Physician: Dipak Philippe Referring Physician: Юлия Jean-Baptiste Performed By: Bridgett Nguyen RVT
== END | disposition home or self-care (01) ==
LOC: CVS 14:44
PROVIDERS: PCP Family Medicine; Referring Provider Surgery Trauma Surgery; Visit Provider Surgery Trauma Surgery
DX: I70.263 Atherosclerosis of native arteries of extremities with gangrene, bilateral legs (principal)
CPT/HCPCS: 93922; 93926

== ENCOUNTER 2023-05-16 12:13 | Inpatient (IN) | payer OTHER, SELFPAY ==
[2023-05-16] VITALS (7 sets, daily range): BP systolic 141–177; BP diastolic 75–120; PULSE 68–99; RESP 14–27; TEMP 36.4–36.9; O2SAT 98–100; BMI 31.8
[2023-05-16] MEDS: Cefazolin 1 GM/50 ML BAG IV (16:00)
--- NOTE | 2023-05-16 16:03 | EDS_ITS ---
HPI History of Present Illness HPI Narrative: Patient presents with redness and swelling to her right ring finger that has been getting worse over the past 2 weeks. Patient is on antibiotics but this has not been helping. Patient describes her pain as dull. Patient states nothing makes it better nothing makes it worse. Patient states she did have outpatient x-rays that did not show any evidence of osteomyelitis. Patient denies any fevers or chills. Patient denies any paresthesias or weakness. Patient denies any trauma or injury. Chief Complaint: Wound Informant: patient Onset/Context/Timing Onset: Weeks (2) Context: Gradual Onset Timing: Continuous Quality of Pain: Dull Location: Right ring finger Worsened by: Nothing Relieved by: Nothing PFSH PFSH Medical History (Updated 05/16/23 @ 19:[address] Dipak Fuentes, DO) Abdominal pain Acute ischemic stroke Afib Arthritis Back pain Bilateral leg pain Breast lump in female Cardiology follow-up encounter Cataracts, bilateral Cellulitis Chronic atrial fibrillation CKD (chronic kidney disease) Colovaginal fistula Colovesical fistula Controlled type 2 diabetes mellitus with hyperglycemia Delayed wound healing Diabetes Diabetes mellitus with diabetic polyneuropathy Dietary restriction Diverticulitis large intestine Diverticulosis Heart failure High blood pressure High cholesterol History of diverticulitis History of echocardiogram History of edema History of heart attack HLD (hyperlipidemia) Ileostomy in place Kidney stones Loss of hearing Non-smoker Open wound Osteoarthritis Osteomyelitis of second toe of left foot Peripheral arterial disease Rheumatoid arthritis Shortness of breath on exertion Type 2 diabetes mellitus with diabetic polyneuropathy 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 Ulcer of right foot with necrosis of bone Ulcer of right lower extremity with muscle involvement without evidence of necrosis Unspecified protein-calorie malnutrition Wears glasses Home Medications amlodipine 5 mg tablet 5 mg PO DAILY #0 tabs 08/13/22 [Rx Last Taken Unknown] apixaban 5 mg tablet 5 mg PO BID #30 tabs 08/13/22 [Rx Last Taken Unknown] insulin glargine-yfgn 100 unit/mL (3 mL) subcutaneous pen 26 unit (0.26 mL) subcut QPM #0 mL 02/24/23 [Rx Last Taken Unknown] loperamide 2 mg tablet 2 mg PO Q3H PRN loose stool 03/20/23 [History Last Taken Unknown] clopidogrel 75 mg tablet (Plavix) 75 mg PO DAILY #30 tabs 03/26/23 [Rx Last Taken Unknown] acetaminophen 325 mg tablet 650 mg PO Q6H PRN Pain 1-10 Or Fever>100.7 05/16/23 [History Last Taken Unknown] aluminum-mag hydroxide-simethicone 200 mg-200 mg-20 mg/5 mL oral susp (Advanced Antacid-Antigas) 30 ml PO Q6H PRN indigestion 05/16/23 [History Last Taken Unknown] carbamide peroxide 6.5 % ear drops (Ear Drops (carbamide peroxide)) 4 drp otic (ear) BID CERUMEN IMPACTION 05/16/23 [History Last Taken Unknown] dextromethorphan-guaifenesin 10 mg-100 mg/5 mL oral liquid (Tussin DM) 10 ml PO Q4H PRN cough 05/16/23 [History Last Taken Unknown] dextrose 15 gram/33 gram oral gel packet (Dex4 Glucose) 15 g PO PRN BLOOD SUGAR <70 05/16/23 [History Last Taken Unknown] insulin lispro 100 unit/mL subcutaneous pen (Humalog KwikPen (U-100) Insulin) See Protocol subcut ACHS 05/16/23 [History Last Taken Unknown] lisinopril 10 mg tablet 10 mg PO DAILY 05/16/23 [History Last Taken Unknown] magnesium hydroxide 400 mg/5 mL oral suspension (Milk of Magnesia) 30 ml PO DAILY PRN constipation 05/16/23 [History Last Taken Unknown] pyrithione zinc 1 % shampoo (Dandruff Shampoo (pyrithione zinc)) 1 applic topical PRN DRY ITCHY SCALP 05/16/23 [History Last Taken Unknown] sodium phosphates 19 gram-7 gram/118 mL enema (Pimqq-Lg-Wdb Enema) 118 ml NC DAILY PRN constipation 05/16/23 [History Last Taken Unknown] sulfamethoxazole 800 mg-trimethoprim 160 mg tablet 1 tab PO BID RIGHT 4TH DIGIT INFECTION 05/16/23 [History Last Taken Unknown] Allergy/AdvReac Type Severity Reaction Status Date / Time adhesive Allergy Unknown Verified 05/16/23 12:16 bacitracin zinc Allergy Rash Verified 05/16/23 12:16 [From Neosporin ([id number])] metronidazole Allergy ALLERGY Verified 05/16/23 12:16 neomycin sulfate Allergy Rash Verified 05/16/23 12:16 [From Neosporin ([id number])] polymyxin B Allergy Rash Verified 05/16/23 12:16 [From Neosporin ([id number])] prednisolone acetate, Allergy ALLERGY Verified 05/16/23 12:16 micronized simvastatin Allergy ALLERGY Verified 05/16/23 12:16 tramadol [From Ultram] Allergy ALLERGY Verified 05/16/23 12:16 amoxicillin [From Augmentin] AdvReac Nausea/Vom/ Verified 05/16/23 12:16 Diarrhea atorvastatin calcium AdvReac Pain in Verified 05/16/23 12:16 [From Lipitor] joints clavulanic acid AdvReac Nausea/Vom/ Verified 03/20/23 15:10 [From Augmentin] Diarrhea fenofibrate nanocrystallized AdvReac Upset Verified 05/16/23 12:16 [From Tricor] Stomach flurbiprofen AdvReac Upset Verified 05/16/23 12:16 Stomach gemfibrozil AdvReac Upset Verified 05/16/23 12:16 Stomach glipizide [From Glucotrol] AdvReac Upset Verified 05/16/23 12:16 Stomach pravastatin AdvReac Pain in Verified 05/16/23 12:16 joints Family History Mother Diabetes Father Hypertension CVA (cerebral vascular accident) Brother Lung cancer Sister Breast cancer COPD (chronic obstructive pulmonary disease) Other Peripheral arterial disease Surgical History History of appendectomy History of cholecystectomy History of heart bypass surgery History of knee replacement History of partial colectomy (~05/2021) Hx of colonoscopy S/P CABG (coronary artery bypass graft) S/P hysterectomy Social History household members: family housing: penitentiary Smoking Status: Never smoker alcohol intake: current alcohol intake frequency: other substance use type: does not use additional social history: USES ASPIRIN ROS ROS ED Constitutional Constitutional ED: Denies chills or fever(s) Eyes Eyes: Denies blurry vision or change in vision ENT ENT ED: Denies rhinorrhea or sore throat Cardiovascular Cardiovascular: Denies chest pain or palpitations Respiratory/Chest Respiratory/Chest: Reports cough; Denies dyspnea Gastrointestinal Gastrointestinal: Denies nausea or vomiting Genitourinary Genitourinary ED: Denies dysuria or hematuria Musculoskeletal Musculoskeletal: Denies back pain or neck pain Integumentary Denies abscess or rash Neurologic Neurologic: Denies headache(s) or weakness Allergic/Immunologic Allergic/Immunologic ED: Denies mouth swelling or urticaria EXAM Physical Exam Const Vital Signs: 05/16/23 12:14 Temperature 98.4 F Temperature Source Temporal Pulse Rate 90 Respiratory Rate 16 Blood Pressure 175/76 H Blood Pressure Mean 109 Pulse Ox 99 Oxygen Delivery Method Room Air Positive well nourished, well developed and obese General Appearance ED: well developed and NAD Nutritional Appearance: obese HEENT Reports moist mucous membranes Neck full ROM and supple Extremity Extremity Narrative: There is edema, erythema, and warmth over the right ring finger. There are few vesicles noted on the dorsal aspect of the middle phalanx. There is no discharge or drainage noted. There is no erythematous streaking noted. There is an area of erythema and warmth over the dorsal aspect of the right mid forearm. Range of motion was slightly limited in all motions of the right ring finger secondary to pain. Sensation was intact to light touch in all digits. Capillary refill was less than 2 seconds in all digits. Neuro oriented x3, CN's II-XII intact bilaterally, moves all extremities, no focal motor deficits and no sensory deficits noted Sensorium / Orientation: alert Motor Exam: strength 5/5 throughout Psych mental status grossly normal MDM MDM MDM Narrative Medical decision making narrative: Differential diagnosis includes osteomyelitis, cellulitis, and tenosynovitis. X-rays of the right ring finger will be obtained to assess for osteomyelitis. CBC will be obtained to assess for leukocytosis and anemia. Basic metabolic profile will be obtained to assess for electrolyte abnormality and renal function. Serum lactate will be obtained to assess for sepsis. Blood cultures will be obtained to assess for sepsis. Lab Data Attestation: I reviewed the patient's lab results. Lab results narrative: CBC was reviewed. There is mild leukocytosis of 12.0. Basic metabolic profile was reviewed. Potassium was elevated at 6.3. There is some hemolysis noted. Because of this, potassium was repeated and was 5.7. BUN was 56 and creatinine was 2.73. These are increased from previous results. Sodium was 133 and chloride was 110. CO2 was 16. Anion gap was normal. Lactate was reviewed and was normal at 1.1. Radiography Diagnostic Testing: X-rays of the right ring finger were obtained. There are 3 views. On my independent interpretation, there is no evidence of osteomyelitis. There is no acute fracture. There is a hyperflexion deformity of the distal phalanx. Radiologist also interpreted the x-ray and agrees. EKG Initial EKG: Attestation: I personally reviewed and interpreted this EKG as follows: Interpretation: Atrial Fibrillation (99) and Non-Specific ST Changes Comments: EKG was obtained because of the hyperkalemia. On my independent interpretation shows atrial fibrillation with a rate of 99. [employer] [place] was normal at 82 ms. QTc interval was normal at 438 ms. [place] was normal at 44. There are nonspecific ST T wave changes. There is no evidence of peaked T waves. Prior EKG tracings: available for review Prior: Unchanged (02/20/2023) Treatment and Re-Evaluation Narrative: Patient was given a dose of Ancef here. Patient was given calcium gluconate, dextrose, and insulin for her hyperkalemia. Patient was given IV fluids. Telehand consult was obtained. They recommended transfer to [facility] for hand surgery. Case was discussed with the hospitalist for admission. She was in to evaluate the patient and agrees that the patient would probably require surgery. Case was discussed with orthopedics here, Dr. Cruz. He also felt that the patient would need to be transferred if the patient would require surgery. Results were discussed with the patient and family. They would prefer to be transferred to a closer facility such as [place] or [facility]. Case was discussed with [facility]. They are not accepting transfer patients at this time. Case was discussed with hand surgeon at [facility]. She recommended admitting the patient to medical service. Case was discussed with Dr. Muhammad at [facility]. He recommended repeating the potassium prior to transfer. This was ordered and was slightly improved at 5.6. Patient was given a repeat dose of calcium, insulin, and glucose. Patient will be transferred when a bed becomes available. Patient and family understand and are agreeable with the plan. All questions were answered. Critical Care Time Critical Care Time: Yes Critical care time (excluding procedures): 30-74 minutes (45), Including time spent:, Discussing w/Patient &/or Family/Brokerage Coordinator, Discussing w/Consultants, Arranging Admission or Transfer and Performing Direct Patient Care at Bedside Discharge Plan Triage Chief Complaint: Wound ED Provider: Dipak Fuentes Dx/Rx/DC Orders Clinical Impression: Cellulitis of right ring finger, Acute kidney injury, Hyperkalemia Prescriptions: No Action loperamide 2 mg tablet 2 mg PO Q3H PRN (Reason: loose stool) Rx Instructions: administer 2 tablets at first loose stool, then administer 1 tablet every 3 hours as needed after each loose stool until symptoms controlled; do not exceed 8 mg per 24 hrs clopidogrel [Plavix] 75 mg tablet 75 mg PO DAILY Qty: 30 4RF amlodipine 5 mg Tablet 5 mg PO DAILY Qty: 0 0RF apixaban 5 mg tablet 5 mg PO BID Qty: 30 0RF Hold Instructions: Resume on 02/25/23. Rx Instructions: start 08/18/2022. insulin glargine-yfgn 100 unit/mL (3 mL) Insulin Pen 26 unit subcut QPM Qty: 0 0RF sulfamethoxazole-trimethoprim 800-160 mg tablet 1 tab PO BID Rx Instructions: START DATE: 05/12/23 Ear Drops (carbamide peroxide) 6.5 % drops 4 drp otic (ear) BID Rx Instructions: INSTILL 4 DROPS INTO RIGHT EAR TWICE DAILY NEEDED FOR 4 DAYS, THEN IRRIGATE ON WITH WARM WATER Rbnrr-Uq-Yic Enema 19-7 gram/118 mL enema 118 ml NC DAILY PRN (Reason: constipation) dextrose [Dex4 Glucose] 15 gram/33 gram gel in packet 15 g PO PRN lisinopril 10 mg tablet 10 mg PO DAILY magnesium hydroxide [Milk of Magnesia] 400 mg/5 mL suspension 30 ml PO DAILY PRN (Reason: constipation) alum-mag hydroxide-simeth [Advanced Antacid-Antigas] 200-200-20 mg/5 mL suspension 30 ml PO Q6H PRN (Reason: indigestion) Rx Instructions: NOTIFY PROVIDER IF GIVEN MORE THAN 2 DOSES IN A 24 HOUR PERIOD Dandruff Shampoo (pyrithione) 1 % shampoo 1 applic topical PRN Rx Instructions: APPLY TWICE A WEEK dextromethorphan-guaifenesin [Tussin DM] 10-100 mg/5 mL liquid 10 ml PO Q4H PRN (Reason: cough) Rx Instructions: NOTIFY PROVIDER IF COUGH PERSISTS FOR 48 HOURS acetaminophen 325 mg Tablet 650 mg PO Q6H PRN (Reason: Pain 1-10 Or Fever>100.7) insulin lispro [Humalog KwikPen Insulin] 100 unit/mL Insulin Pen See Protocol subcut [facility] Protocol: 6. Sliding Scale Insulin Custom Condition: mg/dl range Dose/Route: Number of Units Condition: 150-199 Dose/Route: 4 UNITS Condition: 200-249 Dose/Route: 6 UNITS Condition: 250-299 Dose/Route: 8 UNITS Condition: 300-349 Dose/Route: 10 UNITS Condition: 350-400 Dose/Route: 12 UNITS Condition: 400+ Dose/Route: CALL PCP Protocol Text: Custom Sliding Scale Primary Care Provider: Юлия Jean-Baptiste Referrals: Юлия Jean-Baptiste, [Primary Care Provider] - Disposition Disposition: Acute Care Hospital Discharge Location: [facility]
[2023-05-16 16:04] LABS: Absolute Lymphocyte Count 2.11 X10^3/uL (0.83-4.51); Absolute Neutrophil Count 7.8 X10^3/uL (2.0-7.7); Basophil# 0.13 X10^3/uL; Basophil% 1.1 % (0-1); Eosinophil# 0.26 X10^3/uL; Eosinophils% 2.2 % (0-5); Hematocrit 39.8 % (37-47); Lymphocyte # 2.11 X10^3/ul (0.83-4.51); Lymphocyte % 17.6 % (19-41); Mean Corp Hgb Conc 32.7 g/dL (32-36); Mean Corpuscular Hgb 30.1 pg (27.0-32.0); Mean Corpuscular Volume 92.1 fL (81-99); Mean Platelet Vol. 10.2 fl (6.2-12.0); Monocyte# 1.33 X10^3/uL; Monocyte% 11.1 % (0-10); NRBC Flagged by Analyzer 0 % (0-5); Neutrophil # 7.84 X10^3/uL (2.7-7.7); Neutrophil % 65.3 % (47-70); Platelet Count 266 K/mm3 (150-450); RBC Distribution Width CV 13.4 % (11.6-14.6); RBC Distribution Width SD 45.8 fl (35.1-43.9); Red Blood Count 4.32 M/mm3 (4.2-5.4)
--- NOTE | 2023-05-16 16:05 | RAD_ITS ---
INDICATION: Infected right fourth digit EXAMINATION/TECHNIQUE: X-RAY - RIGHT HAND XR Fingers Min 2 Views 3 VIEWS COMPARISON: 06/10/2017 FINDINGS: SOFT TISSUES: Diffuse soft tissue swelling of the fourth digit. Small radiodense foreign bodies in the distal soft tissues fourth digit and lateral to the fourth middle phalanx. BONES/JOINTS: No acute fracture. Hyperflexion angulation of the fourth distal phalanx at the DIP joint. No sclerotic or destructive changes observed. RAD/Finger(s) Min 2 Views IMPRESSION: Hyperflexion angulation of the fourth distal phalanx without acute fracture or destructive cortical lesion. Electronically Signed: Ang Lugo MD at 17:06 EST ,
[2023-05-16 16:34] LABS: Anion Gap 7 (5-15); BUN 56 mg/dL (7-18); BUN/Creat Ratio 20.5 RATIO (10-20); Calcium,Total 9.3 mg/dL (8.5-10.1); Chloride 110 mmol/L (98-107); Creatinine, Serum 2.73 mg/dL (0.55-1.02); EST Glomerular Filtration Rate 18 mL/min (>60); Est Glom Filt Rate - Afr Amer 21 mL/min (>60); Estimated Creatinine Clearance 16.68 ml/min; Glucose 197 mg/dL (74-106); Potassium 6.3 mmol/L (3.5-5.1); Sodium Level 133 mmol/L (136-145)
[2023-05-16 16:50] LABS: Lactic Acid 1.1 mmol/L (0.4-1.9)
[2023-05-16 17:44] LABS: Potassium 5.7 mmol/L (3.5-5.1)
--- NOTE | 2023-05-16 19:28 | EKG12_ITS ---
Test Reason : DYSRHYTHMIA Blood Pressure : / mmHG Vent. Rate : 099 BPM Atrial Rate : 000 BPM P-R Int : 000 ms QRS Dur : 082 ms QT Int : 342 ms P-R-T Axes : 000 044 151 degrees QTc Int : 438 ms Atrial fibrillation Septal infarct , age undetermined Abnormal ECG Confirmed by SARA HUTTON, PERCY ([id number]), graphic editor PRIYANKA VUONG ([id number]) on 05/19/2023 9:35:11 AM Referred By: Confirmed By:PERCY RUIZ MD
--- NOTE | 2023-05-16 19:31 | HP.PCM.HOS_ITS ---
HPI - General General Date of Admission: 05/16/23 Date of Service: 05/16/23 Chief Complaint: R Ring finger worsening redness, edema despite outpatient abx. HPI Narrative The patient is an 82 y/o F w/ PMHx: Obesity, OA, PAF, Hx CVA, HTN, HLD, Diabetes mellitus type II with chronic neuropathy w/ Hx diabetic wounds, Rheumatoid arthritis, PAD, CAD s/p CABG who presents to the [facility] ED on 05/16/23 with history of redness and swelling to the right finger that been worsening over the last 2 weeks recently on antibiotics however it has not been helping she notes with ongoing dull throbbing pain with outpatient plain films with no evidence of os teomyelitis nor any recent fevers or chills nor any paresthesias but given ongoing nonimproving discomfort, swelling and redness prompted ED evaluation. She denies any trauma or injury to the finger. She currently rates the discomfort in her finger 5 out of 10 in severity. Workup in the ED included T98.4, heart rate 90, BP 175/76, respiratory rate 16, 99% on room air, CBC with WBC 12, and 113, platelets 266 with left shift, BMP with sodium 133, potassium initially 6.3 noted to be slightly hemolyzed with repeat 5.7, chloride 110, Comvax at 16, anion gap 7, BUN/creatinine 56/2.73, glucose 197, lactic acid 1.1, plain film of the right fourth digit with hyperflexion angulation of the fourth distal phalanx without any acute fracture or destructive cortical lesion, blood culture x 2 pending per ED. In the ED patient administered Ancef. Discussed patient status and appearance with application counselor orthopedic surgeon who requested tele-ortho hand consultation with [facility] and admission to [facility] only if felt no surgery necessary. [facility] Medical History (Updated 05/17/23 @ 00:[address] Alondra Blanchard MD) Arthritis Breast lump in female CAD (coronary artery disease) Cataracts, bilateral Chronic atrial fibrillation CKD (chronic kidney disease), stage III Colovesical fistula Diabetes mellitus with diabetic polyneuropathy Diverticulosis Heart failure High blood pressure High cholesterol History of diverticulitis History of heart attack HLD (hyperlipidemia) Ileostomy in place Kidney stones Loss of hearing Non-smoker Open wound Osteoarthritis Osteomyelitis of second toe of left foot Peripheral arterial disease Rheumatoid arthritis Type 2 diabetes mellitus with diabetic polyneuropathy 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 Ulcer of right foot with necrosis of bone Ulcer of right lower extremity with muscle involvement without evidence of necrosis Unspecified protein-calorie malnutrition Wears glasses Home Medications amlodipine 5 mg tablet 5 mg PO DAILY #0 tabs 08/13/22 [Rx Last Taken Unknown] apixaban 5 mg tablet 5 mg PO BID #30 tabs 08/13/22 [Rx Last Taken Unknown] insulin glargine-yfgn 100 unit/mL (3 mL) subcutaneous pen 26 unit (0.26 mL) subcut QPM #0 mL 02/24/23 [Rx Last Taken Unknown] loperamide 2 mg tablet 2 mg PO Q3H PRN loose stool 03/20/23 [History Last Taken Unknown] clopidogrel 75 mg tablet (Plavix) 75 mg PO DAILY #30 tabs 03/26/23 [Rx Last Taken Unknown] acetaminophen 325 mg tablet 650 mg PO Q6H PRN Pain 1-10 Or Fever>100.7 05/16/23 [History Last Taken Unknown] aluminum-mag hydroxide-simethicone 200 mg-200 mg-20 mg/5 mL oral susp (Advanced Antacid-Ant[place]as) 30 ml PO Q6H PRN indigestion 05/16/23 [History Last Taken Unknown] carbamide peroxide 6.5 % ear drops (Ear Drops (carbamide peroxide)) 4 drp otic (ear) BID CERUMEN IMPACTION 05/16/23 [History Last Taken Unknown] dextromethorphan-guaifenesin 10 mg-100 mg/5 mL oral liquid (Tussin DM) 10 ml PO Q4H PRN cough 05/16/23 [History Last Taken Unknown] dextrose 15 gram/33 gram oral gel packet (Dex4 Glucose) 15 g PO PRN BLOOD SUGAR <70 05/16/23 [History Last Taken Unknown] insulin lispro 100 unit/mL subcutaneous pen (Humalog KwikPen (U-100) Insulin) See Protocol subcut ACHS 05/16/23 [History Last Taken Unknown] lisinopril 10 mg tablet 10 mg PO DAILY 05/16/23 [History Last Taken Unknown] magnesium hydroxide 400 mg/5 mL oral suspension (Milk of Magnesia) 30 ml PO DAILY PRN constipation 05/16/23 [History Last Taken Unknown] pyrithione zinc 1 % shampoo (Dandruff Shampoo (pyrithione zinc)) 1 applic topical PRN DRY ITCHY SCALP 05/16/23 [History Last Taken Unknown] sodium phosphates 19 gram-7 gram/118 mL enema (Fscke-Sa-Nhs Enema) 118 ml PA DAILY PRN constipation 05/16/23 [History Last Taken Unknown] sulfamethoxazole 800 mg-trimethoprim 160 mg tablet 1 tab PO BID RIGHT 4TH DIGIT INFECTION 05/16/23 [History Last Taken Unknown] Allergy/AdvReac Type Severity Reaction Status Date / Time adhesive Allergy Unknown Verified 05/16/23 12:16 bacitracin zinc Allergy Rash Verified 05/16/23 12:16 [From Neosporin ([id number])] metronidazole Allergy ALLERGY Verified 05/16/23 12:16 neomycin sulfate Allergy Rash Verified 05/16/23 12:16 [From Neosporin ([id number])] polymyxin B Allergy Rash Verified 05/16/23 12:16 [From Neosporin ([id number])] prednisolone acetate, Allergy ALLERGY Verified 05/16/23 12:16 micronized simvastatin Allergy ALLERGY Verified 05/16/23 12:16 tramadol [From Ultram] Allergy ALLERGY Verified 05/16/23 12:16 amoxicillin [From Augmentin] AdvReac Nausea/Vom/ Verified 05/16/23 12:16 Diarrhea atorvastatin calcium AdvReac Pain in Verified 05/16/23 12:16 [From Lipitor] joints clavulanic acid AdvReac Nausea/Vom/ Verified 03/20/23 15:10 [From Augmentin] Diarrhea fenofibrate nanocrystallized AdvReac Upset Verified 05/16/23 12:16 [From Tricor] Stomach flurbiprofen AdvReac Upset Verified 05/16/23 12:16 Stomach gemfibrozil AdvReac Upset Verified 05/16/23 12:16 Stomach glipizide [From Glucotrol] AdvReac Upset Verified 05/16/23 12:16 Stomach pravastatin AdvReac Pain in Verified 05/16/23 12:16 joints Family History Mother Diabetes Father Hypertension CVA (cerebral vascular accident) Brother Lung cancer Sister Breast cancer COPD (chronic obstructive pulmonary disease) Other Peripheral arterial disease Surgical History History of appendectomy History of cholecystectomy History of heart bypass surgery History of knee replacement History of partial colectomy (~05/2021) Hx of colonoscopy S/P CABG (coronary artery bypass graft) S/P hysterectomy Social History household members: family housing: [facility] Smoking Status: Never smoker alcohol intake: current alcohol intake frequency: other substance use type: does not use additional social history: USES ASPIRIN ROS ROS Narrative Admission Review of Systems: CONSTITUTIONAL: No weight loss, fever, chills, + weakness or fatigue. HEENT: Eyes: No visual loss, blurred vision, double vision or yellow sclerae. Ears, Nose, Throat: No hearing loss, sneezing, congestion, runny nose or sore throat. SKIN: No rash or itching, lesions, wounds except + notable right hand ring finger swelling, necrotic tip, erythema steadily worsening. CARDIOVASCULAR: No chest pain, chest pressure or chest discomfort, palpitations, edema, orthopnea, syncopal events. RESPIRATORY: No shortness of breath, cough or sputum, wheezing, hemoptysis. GASTROINTESTINAL: + anorexia. No nausea, vomiting or diarrhea, abdominal pain, melena, BRBPR. GENITOURINARY: No dysuria, frequency, urgency or retention. NEUROLOGICAL: + History of CVA. No headache, dizziness, syncope, paralysis, change in bowel or bladder control, seizure. MUSCULOSKELETAL: + muscle, back pain, joint pain or stiffness. HEMATOLOGIC: No anemia+ easy bleeding/bruising. LYMPHATICS: No enlarged nodes. No history of splenectomy. PSYCHIATRIC: No history of depression or anxiety. ENDOCRINOLOGIC: No reports of sweating, cold or heat intolerance. No polyuria or polydipsia. ALLERGIES: No history of asthma, hives, eczema or rhinitis. Vital Signs Vital Signs Vital Signs: 05/16/23 12:14 05/16/23 16:56 05/16/23 17:00 Temperature 98.4 F 98.2 F Temperature Source Temporal Temporal Pulse Rate 90 68 74 Respiratory Rate 16 16 16 Blood Pressure 175/76 H 153/77 H 141/91 H Blood Pressure Mean 109 102 107 Pulse Ox 99 98 Oxygen Delivery Method Room Air Room Air 05/16/23 18:00 05/16/23 18:30 Temperature 98 F 97.6 F L Temperature Source Temporal Temporal Pulse Rate 78 79 Respiratory Rate 16 14 Blood Pressure 177/120 H 165/106 H Blood Pressure Mean 139 125 Pulse Ox 98 100 Oxygen Delivery Method Weight Weight: 185 lb 9.6 oz Body Mass Index (BMI) 31.8 Physical Exam Narrative Physical Examination: General: Awake, alert, oriented x 3 and cooperative, seated upright in the ED bed, fatigued. Skin: Normal color, normal turgor, no icterus, no cyanosis except for notable occasional staged ecchymoses, bilateral lower extremity venous stasis skin changes, significant right hand ring finger significant swelling, erythema, tenderness to palpation as well as necrotic tip. HEENT: AT/NC, EOMI, PERRLA, dry MM, no carotid bruits or JVD noted however thickened neck makes evaluation difficult. Lungs: Mildly diminished, greater bases, proper effort, no rales, ronchi or wheezing. Heart: Irregular; no gallop, rub audible. Abdomen: Soft, obese, NTTP, ND, mildly hyperactive BS, no appreciated HSM. Extremities: No cyanosis, no clubbing, see skin. Neurological: Patient awake, alert, oriented as noted, cognitive function intact; pupils equally reactive to light and accommodation, cranial nerves grossly normal, moving all 4 extremities spontaneously, strength severely globally decreased. Psychiatric: Affect appears flat, fatigued, no acute evidence of depressive or anxiety feelings. Results Lab / Micro Data 05/16/23 15:45 05/16/23 23:24 Labs: Laboratory Results - last 24 hr 05/16/23 15:45: WBC 12.0 H, RBC 4.32, Hgb 13.0, Hct 39.8, MCV 92.1, MCH 30.1, MCHC 32.7, RDW Std Deviation 45.8 H, RDW Coeff of Monique 13.4, Plt Count 266, MPV 10.2, Immature Gran % (Auto) 2.700 H, Neut % (Auto) 65.3, Lymph % (Auto) 17.6 L, [place] % (Auto) 11.1 H, Eos % (Auto) 2.2, Baso % (Auto) 1.1 H, Absolute Neuts (auto) 7.8 H, Absolute Lymphs (auto) 2.11, Nucleated RBC % 0, Sodium 133 L, Potassium 6.3 H*, Chloride 110 H, Carbon Dioxide 16.0 L, Anion Gap 7, BUN 56 H, Creatinine 2.73 H, Estim Creat Clear Calc 16.68, Est GFR (MDRD) Af Amer 21 L, Est GFR (MDRD) Non-Af 18 L, BUN/Creatinine Ratio 20.5 H, Glucose 197 H, Lactic Acid 1.1, Calcium 9.3 05/16/23 16:54: Potassium Cancelled 05/16/23 17:24: Potassium 5.7 H Imaging Radiology Impression Finger X-Ray 05/16/23 16:05 IMPRESSION: Hyperflexion angulation of the fourth distal phalanx without acute fracture or destructive cortical lesion. Electronically Signed: Ang Lugo MD at 17:06 EST , Assessment & Plan Assessment/Plan (1) Cellulitis: PLAN: Plan The patient is an 82 y/o F w/ PMHx: Obesity, OA, PAF, Hx CVA, HTN, HLD, Diabetes mellitus type II with chronic neuropathy w/ Hx diabetic wounds, Rheumatoid arthritis, PAD, CAD s/p CABG who presents to the [facility] ED on 05/16/23 with history of redness and swelling to the right finger that been worsening over the last 2 weeks recently on antibiotics however it has not been helping she notes with ongoing dull throbbing pain with outpatient plain films with no evidence of osteomyelitis nor any recent fevers or chills nor any paresthesias but given ongoing nonimproving discomfort, swelling and redness prompted ED evaluation. #1. Right Ring Finger Cellulitis, Failed outpatient abx therapy: If Tele-[facility] Hand feels no surgery necessary per discussion with [facility] Orthopedic surgery would then plan to admit to PCU given mild hyperkalemia concurrently as noted, maintain on IV vanc and zosyn given diabetic status, appearance, not improved with outpatient abx, continue affected extremity elevation above heart when seated and in bed, monitor erythema outline with VS checks, if onset drainage will obtain wound Cx and Wound MRSA, wound continue orthopedic surgery involvement. PT/OT/CM consultation for discharge planning. #2. Acute kidney injury: Secondary to possibly her acute presentation with infection as well as nephrotoxic medication and poor intake. Admission BUN/Cr 56/2.73, prior baseline creatinine noted to be primarily 1.2-1.5. Will hydrate, hold nephrotoxic medications and repeat chemistry in AM. If no improvement would plan FeNa assessment. #3. Hyperkalemia, mild: Admission potassium initially 6.3 however slightly hemolyzed, repeat 5.7, will initiate hyperkalemic protocol and repeat level this evening and in a.m. as well. #4. Hypertension: Continue home regimen including amlodipine, holding lisin opril given acute kidney injury, PRN hydralazine. #5. PAD: Will continue patient home: Apixaban, Plavix, holding lisinopril, not on beta-charlie therapy, per current list on statin therapy but clarifying. #6. CAD: Status post CABG, will continue apixaban, Plavix, not on beta-charlie therapy, holding lisinopril given acute kidney injury, not on statin therapy per current list but clarifying. #7. History CVA: Will continue patient home apixaban, Plavix, not on statin therapy, continue hypertensive regimen with adjustments given acute kidney injury as noted. #8. PAF: We will continue patient home apixaban regimen, not on rate or rhythm agent for current list but clarifying. #9. Diabetes mellitus type II with hyperglycemia with with chronic neuropathy and diabetic wound history: Hold oral home regimen, hemoglobin A1c requested given presentation, nutrition consultation for education and teaching concurrently ADA diet, accu checks w/ ISS. #10. Obesity: Weight loss and lifestyle changes encouraged. #11. DVT prophylaxis: Continue patient home apixaban regimen. #12. CODE status: Patient KAVYA is her daughter Kaitlyn, living will is not in place. Discussed CODE status at length including difference between FULL code, DNR-CCA and DNR-CC status. Following discussions about the differences in these status, requested DNR-CCA, no intubation status. Advanced Care Planning Face to Face Time: 16 minutes. Charges/Coding Visit Charges Inpatient E&M: 36744 Init Hosp L3 Procedures Hospitalists Procedures: 31794 Advncd Care Plan 30 Min
[2023-05-16] MEDS: Dextrose 50%-Water 25 GM/50 ML DISP.SYRIN IV (20:06)
[2023-05-16] MEDS: Sodium Bicarbonate 150 MEQ in Dextrose 5%-Water (1000mL Bag) 1,000 ML 250 MEQ IV (20:06)
[2023-05-16] MEDS: 0.9% Normal Saline (1000mL) 1,000 ML 1000 ML IV (20:08)
[2023-05-16] MEDS: Calcium Gluconate IV 3 GM in Syringe 1 EACH IV (20:08)
[2023-05-16] MEDS: Insulin Lispro 10 UNIT in Syringe 0 ML 6 UNIT IV (20:09)
[2023-05-16] MEDS: Ondansetron 4 MG/2 ML Vial IV (20:13)
[2023-05-16 23:39] LABS: Potassium 5.6 mmol/L (3.5-5.1)
[2023-05-17] VITALS (11 sets, daily range): BP systolic 134–168; BP diastolic 58–90; PULSE 79–115; RESP 15–21; TEMP 35.9–36.9; O2SAT 96–100; BMI 31.2
[2023-05-17] MEDS: Dextrose 50%-Water 25 GM/50 ML DISP.SYRIN IV (00:16)
[2023-05-17] MEDS: Calcium Gluconate IV 3 GM in Syringe 1 EACH IV (00:17)
[2023-05-17] MEDS: Insulin Lispro 10 UNIT in Syringe 0 ML 6 UNIT IV (00:20)
[2023-05-17] MEDS: Albuterol 2.5 MG/3 ML VIAL.NEB. INHALATION ×3 (01:16→13:11)
[2023-05-17 01:28] LABS: Blood Gas Specimen Type VEN; O2 Delivery Device Room Air; SITE Not entered; VBG BASE EXCESS -12 mmol/L (-1.0-3.5); VBG Bicarbonate 15 mmol/L (22-26); VBG PO2 68 mmHg (25-40); VBG SO2 92 % (50-70); VBG TCO2 16 mmol/L (23-33); VBG pCO2 29.1 mmHg (41-51); VBG pH 7.31 (7.32-7.42)
--- NOTE | 2023-05-17 01:34 | CPS ---
Additional x1 Albuterol given to pt. in ER as well
[2023-05-17] MEDS: Sodium Polystyrene Sulfonate 15 GM/60 ML UDC PO (02:41)
[2023-05-17 03:40] LABS: Potassium 5.1 mmol/L (3.5-5.1)
[2023-05-17 05:22] LABS: Erythrocyte Sedimentation Rate 62 mm/hr (0-30)
[2023-05-17 05:23] LABS: Anion Gap 6 (5-15); BUN 42 mg/dL (7-18); BUN/Creat Ratio 19.4 RATIO (10-20); Calcium,Total 9.8 mg/dL (8.5-10.1); Chloride 111 mmol/L (98-107); Creatinine, Serum 2.16 mg/dL (0.55-1.02); EST Glomerular Filtration Rate 23 mL/min (>60); Est Glom Filt Rate - Afr Amer 28 mL/min (>60); Estimated Creatinine Clearance 21.08 ml/min; Glucose 299 mg/dL (74-106); Potassium 5.3 mmol/L (3.5-5.1); Sodium Level 135 mmol/L (136-145)
--- OUTSIDE RECORDS SUMMARY | 2023-05-17 05:35 | XMS RPT_ITS | CCD ---
Demographics Address [address] [address] Preferred Language en Marital Status Single Hinduism Affiliation Unknown Race White Ethnic Group Not or Lati no Author Name Unknown Address [address] [place] [address] Organization [facility] Care Team Providers Care Certified Welder Name Role Phone Rashid Ortiz Unavailable Makenna HUTTON, Kelsy Primary Care Provider HINA SWEENEY MD Consulting Unavailable HINA SWEENEY MD Referring Unavailable LACEY MATTHEWS MD Admitting Unavailable LACEY MATTHEWS MD Primary Care Unavailable LACEY MATTHEWS MD Attending Unavailable PROVIDER, UNKNOWN Consulting Unavailable PROVIDER, UNKNOWN Consulting Unavailable PROVIDER, UNKNOWN Consulting Unavailable LATOUHINA Olea MD Consulting Unavailable LATOUFHINA MD Attending Unavailable LATOUHINA Olea MD Admitting Unavailable LATHINA ZHU MD Primary Care Unavailable PROVIDER, UNKNOWN Consulting Unavailable PROVIDER, UNKNOWN Consulting Unavailable PROVIDER, UNKNOWN Consulting Unavailable LATOUHINA Olea MD Consulting Unavailable LATOUHINA Olea MD Attending Unavailable LATHINA ZHU MD Admitting Unavailable HINA SWEENEY MD Primary Care Unavailable PROVIDER, UNKNOWN Consulting Unavailable PROVIDER, UNKNOWN Consulting Unavailable PROVIDER, UNKNOWN Consulting Unavailable Allergies Allergy Classification Reported Allergen(s) Allergy Type Date of Onset Reaction(s) Facility (9 sources) atorvastatin Drug Allergy 5 Intolerance [facility] Work Phone: (9 sources) bacitracin / neomycin / polymyxin b Drug Allergy 5 [facility] Work Phone: (9 sources) Fenofibrate Drug Allergy 5 Intolerance [facility] Work Phone: (9 sources) Flurbiprofen Drug Allergy 0 GI Upset [facility] (9 sources) Gemfibrozil Drug Allergy 5 GI Upset [facility] Work Phone: (9 sources) glipiZIDE Drug Allergy 5 GI Upset [facility] Work Phone: (9 sources) metroNIDAZOLE Drug Allergy 5 GI Upset [facility] (9 sources) Pravastatin Drug Allergy 6 Intolerance [facility] (9 sources) Simvastatin Drug Allergy 5 Intolerance [facility] (9 sources) traMADol Drug Allergy 7 GI Upset [facility] (9 sources) ADHESIVE TAPE [Other] Propensity to adverse reactions 5 [facility] Work Phone: (1 source) Adhesive agent; Translations: [ADHESIVE] Propensity to adverse reactions (disorder) [facility] (1 source) Amoxicillin Drug Allergy [facility] (1 source) atorvastatin Drug Allergy [facility] (1 source) Bacitracin Drug Allergy [facility] (1 source) Clavulanate Drug Allergy [facility] (1 source) Fenofibrate Drug Allergy [facility] (1 source) Flurbiprofen Drug Allergy [facility] (1 source) Gemfibrozil Drug Allergy [facility] (1 source) glipiZIDE Drug Allergy [facility] (1 source) metroNIDAZOLE Drug Allergy [facility] (1 source) Neomycin Drug Allergy [facility] (1 source) Pravastatin Drug Allergy [facility] (1 source) prednisoLONE Drug Allergy [facility] (1 source) Simvastatin Drug Allergy [facility] (1 source) traMADol Drug Allergy [facility] (1 source) POLYMYXIN B Drug allergy (disorder) [facility] (1 source) 10/04/2022 (+) MRSA SCREEN NARES; Translations: [10/04/2022 (+) MRSA SCREEN NARES] Propensity to adverse reactions (disorder) [facility] Medications Completed/Discontinued Medications Medication Drug Class(es) Dates Sig (Normalized) Sig (Original) amLODIPine 5 mg oral tablet (9 sources) Dihydropyridine Calcium Channel Joselito Start: 10-20-2020 take 2 tablets by mouth once daily amLODIPine (NORVASC) 5 mg tablet Indications: Essential hypertension Take 2 tablets by mouth once daily. 180 tablet 2 10/20/2020 Active Problems Active Problems Problem Classification Problem Date Documented Date Episodic/Chronic Acute cerebrovascular disease (2 sources) Occlusion and stenosis of unspecified cerebral artery; Translations: [Cerebral infarction, unspecified] Onset: 08-14-2022 Chronic Cardiac dysrhythmias (1 source) Paroxysmal atrial fibrillation; Translations: [Paroxysmal atrial fibrillation] Onset: 08-14-2022 Chronic Chronic kidney disease (9 sources) Chronic kidney disease stage 3B ; Translations: [Stage 3b chronic kidney disease] Onset: 04-23-2021 04-23-2021 Chronic Chronic kidney disease (1 source) Chronic kidney disease; Translations: [Chronic kidney disease, stage 3 unspecified] Onset: 10-05-2022 Complication of device; implant or graft (9 sources) Coronary arteriosclerosis following coronary artery bypass graft; Translations: [Atherosclerosis of coronary artery bypass graft(s) without angina pectoris] Onset: 05-20-2016 05-20-2016 Chronic Congestive heart failure; nonhypertensive (10 sources) Chronic diastolic heart failure; Translations: [Chronic diastolic (congestive) heart failure] Onset: 12-31-2017 12-31-2017 Chronic Coronary atherosclerosis and other heart disease (1 source) Atherosclerotic heart disease of [place] coronary artery without angina pectoris; Translations: [Atherosclerotic heart disease of [place] coronary artery without angina pectoris] Onset: 10-05-2022 Chronic Diabetes mellitus with complications (20 sources) Nonproliferative retinopathy due to diabetes mellitus; Translations: [Type 2 diabetes mellitus with mild nonproliferative diabetic retinopathy without macular edema, unspecified eye] Onset: 01-21-2011 03-19-2021 Chronic Diabetes mellitus without complication (1 source) Type 2 diabetes mellitus without complication; Translations: [Type 2 diabetes mellitus without complications] Chronic Disorders of lipid metabolism (1 source) Hyperlipidemia, unspecified; Translations: [Hyperlipidemia, unspecified] Onset: 10-05-2022 Chronic Diverticulosis and diverticulitis (9 sources) Diverticulitis; Translations: [Diverticulitis of intestine, part unspecified, without perforation or abscess without bleeding] Onset: 06-22-2014 06-22-2014 Chronic Essential hypertension (9 sources) Essential hypertension; Translations: [Essential (primary) hypertension] Onset: 09-16-2016 09-16-2016 Chronic Hypertension with complications and secondary hypertension (1 source) Hypertensive heart and chronic kidney disease with heart failure and stage 1 through stage 4 chronic kidney disease, or unspecified chronic kidney disease; Translations: [Hypertensive heart and chronic kidney disease with heart failure and stage 1 through stage 4 chronic kidney disease, or unspecified chronic kidney disease] Onset: 10-05-2022 Chronic Infective arthritis and osteomyelitis (except that caused by tuberculosis or sexually transmitted disease) (1 source) Osteomyelitis, unspecified; Translations: [Osteomyelitis, unspecified] Onset: 10-05-2022 Chronic Nutritional deficiencies (1 source) Unspecified protein-calorie malnutrition; Translations: [Unspecified protein-calorie malnutrition] Onset: 10-05-2022 Chronic Occlusion or stenosis of precerebral arteries (9 sources) Right carotid artery stenosis; Translations: [Occlusion and stenosis of right carotid artery] Onset: 06-21-2016 06-21-2016 Chronic Osteoarthritis (18 sources) Localized, primary osteoarthritis; Translations: [Unilateral primary osteoarthritis, unspecified knee] Onset: 02-08-2005 09-16-2016 Chronic Other connective tissue disease (9 sources) History of total knee arthroplasty; Translations: [Presence of right artificial knee joint] Onset: 03-12-2017 03-12-2017 Chronic Other nutritional; endocrine; and metabolic disorders (1 source) Hypomagnesemia; Translations: [Hypomagnesemia] Chronic Peripheral and visceral atherosclerosis (10 sources) Peripheral vascular disease; Translations: [Peripheral vascular disease, unspecified] Onset: 06-19-2014 06-19-2014 Chronic Rheumatoid arthritis and related disease (1 source) Rheumatoid arthritis, unspecified; Translations: [Rheumatoid arthritis, unspecified] Onset: 10-05-2022 Chronic Unclassified (1 source) Acidosis, unspecified; Translations: [Acidosis, unspecified] Onset: 10-05-2022 Unclassified (1 source) Chronic atrial fibrillation, unspecified; Translations: [Chronic atrial fibrillation, unspecified] Onset: 10-05-2022 Past or Other Problems Problem Classification Problem Date Documented Da te Episodic/Chronic Bacterial infection; unspecified site (1 source) Personal history of Methicillin resistant Staphylococcus aureus infection; Translations: [Personal history of Methicillin resistant Staphylococcus aureus infection] Onset: 10-05-2022 Episodic Coronary atherosclerosis and other heart disease (1 source) Presence of aortocoronary bypass graft; Translations: [Presence of aortocoronary bypass graft] Onset: 10-05-2022 Episodic Fluid and electrolyte disorders (1 source) Hypo-osmolality and hyponatremia; Translations: [Hypo-osmolality and hyponatremia] Onset: 10-05-2022 Episodic Genitourinary symptoms and ill-defined conditions (1 source) Other difficulties with micturition; Translations: [Other difficulties with micturition] Onset: 08-14-2022 Episodic Other aftercare (1 source) rodent exterminator (current) use of insulin; Translations: [half-way (current) use of insulin] Onset: 10-05-2022 Episodic Other aftercare (1 source) rodent exterminator (current) use of anticoagulants; Translations: [half-way (current) use of anticoagulants] Onset: 10-05-2022 Episodic Other aftercare (1 source) Other fpc (current) drug therapy; Translations: [Other long term care social worker (current) drug therapy] Onset: 08-14-2022 Episodic Other circulatory disease (1 source) Personal history of transient ischemic attack (TIA), and cerebral infarction without residual deficits; Translations: [Personal history of transient ischemic attack (TIA), and cerebral infarction without residual deficits] Onset: 10-05-2022 Episodic Other nutritional; endocrine; and metabolic disorders (1 source) Body mass index (BMI) 29.0-29.9, adult; Translations: [Body mass index [BMI] 29.0-29.9, adult] Onset: 10-05-2022 Episodic Other screening for suspected conditions (not mental disorders or infectious disease) (9 sources) Mammography abnormal; Translations: [Other abnormal and inconclusive findings on diagnostic imaging of breast] Onset: 09-27-2011 09-27-2011 Episodic Residual codes; unclassified (2 sources) Localized edema; Translations: [Localized edema] Onset: 10-05-2022 Episodic Residual codes; unclassified (1 source) Do not resuscitate; Translations: [Do not resuscitate] Onset: 10-05-2022 Episodic Skin and subcutaneous tissue infections (1 source) Cellulitis of right upper limb; Translations: [Cellulitis of right upper limb] Onset: 10-05-2022 Episodic Results Test Name Value Interpretation Reference Range Facil ity Encounters Encounter Date Encounter Type Care Provider Facility Start: 03-24-2023 ambulatory HINA HUTTON [facility] Start: 10-05-2022 End: 10-08-2022 Evaluation and management of inpatient HINA HUTTON [facility] Start: 08-14-2022 End: 03-23-2023 ambulatory HINA HUTTON [facility] Start: 12-13-2021 Telephone encounter Kelsy aguayo MD Work Phone: [facility] [place] Procedures Date Procedure Procedure Detail Performing Clinician Start: 02-02-2018 Adult depression screening assessment Kelsy Mensah MD Work Phone: Plan of Treatment Date Care Activity Detail Author Start: 07-24-2022 SERUM CREATININE SERUM CREATININE Cl [facility] Start: 05-30-2022 BP CONTROLLED (<130/80) BP CONTROLLE D (<130/80) [facility] Start: 04-23-2022 ANNUAL PCP TEAM FACILITY COORDINATOR YANA DISEASE VISIT ANNUAL PCP TEAM CHRONIC DISEASE VISIT [facility] Start: 11-22-[address] [facility] Start: 10-21-2021 Hemoglobin A1c/Hemoglobin.total in Blood HBA1C [facility] Start: 09-29-2021 3 comp foot exam completed DIABETIC FOOT EXAM [facility] Start: 08-02-2021 HEMOGLOBIN/HEMATOCRIT HEMOGLOBIN/HEM ATOCRIT [facility] Start: 08-02-2021 Hepatitis B surface antibody level LDL CHOLESTEROL [facility] Start: 03-24-2021 ADVANCE DIRECTIVE DISCUSSION ADVANCE DIRECTIVE DISCUSSION [facility] Start: 03-24-2021 DEPRESSION ASSESSMENT DEPRESSION ASS ESSMENT [facility] Start: 10-13-2019 Hepatitis C antibody , confirmatory test DILATED RETINAL EXAM [facility] Start: 02-02-2019 Adult depression scr eening assessment DEPRESSION SCREENING [facility] Start: 05-11-2018 Urine microalbumin profile DTAP,TDAP ,TD (3 - Tdap) [facility] Start: 2005 BONE DENSITY BONE DENSITY [facility] Start: 1990 SHINGRIX VACCINE (1 of 2) RAMOS GRIX VACCINE (1 of 2) [facility] Start: 1945 COVID-19 VACCINE (#1) COVID-19 VACCI NE (#1) [facility] Start: 06-20-1941 COVID-19 VACCINE (#1) COVID-19 VACCI NE (#1) [facility] Immunizations Immunization Date Immunization Notes Care Provider Muna paiz 02-02-2020 influenza, seasonal, injectable, preservative free Kelsy Mensah MD Work Phone: [facility] 01-20-2019 influenza, high dose seasonal, preservative-free Kelsy Mensah MD Work Phone: [facility] Work Phone: 02-18-2018 influenza, high dose seasonal, preservative-free Kelsy Mensah MD Work Phone: [facility] Work Phone: 12-26-2016 influenza, seasonal, injectable, preservative free Kelsy Mensah MD Work Phone: [facility] 05-20-2016 pneumococcal conjuga te vaccine, 13 valent Kelsy Mensah MD Work Phone: [facility] Work Phone: 01-15-2016 influenza, high dose seasonal, preservative-free Kelsy Mensah MD Work Phone: [facility] 01-06-2015 influenza, high dose seasonal, preservative-free Kelsy Mensah MD Work Phone: [facility] 01-18-2014 influenza, seasonal, injectable, preservative free Kelsy Mensah MD Work Phone: [facility] 01-10-2014 influenza, seasonal, injectable Kelsy Mensah MD Work Phone: [facility] 01-05-2014 influenza, seasonal, injectable Kelsy Mensah MD Work Phone: [facility] 01-20-2013 influenza virus vacc ine, unspecified formulation Kelsy Mensah MD Work Phone: [facility] 01-09-2010 influenza virus vacc ine, whole virus Kelsy Mensah MD Work Phone: [facility] 01-17-2009 influenza virus vacc ine, whole virus Kelsy Mensah MD Work Phone: [facility] 11-22-2008 pneumococcal polysaccharide vaccine, 23 valent Kelsy Mensah MD Work Phone: [facility] 05-11-2008 diphtheria and tetan us toxoids, adsorbed for pediatric use Kelsy Mensah MD Work Phone: [facility] Work Phone: 02-09-2008 influenza virus vacc ine, whole virus Kelsy Mensah MD Work Phone: [facility] 01-26-2007 influenza virus vacc ine, unspecified formulation Kelsy Mensah MD Work Phone: [facility] Work Phone: 01-26-2007 pneumococcal polysaccharide vaccine, 23 valent Kelsy Mensah MD Work Phone: [facility] Work Phone: 03-04-2001 pneumococcal polysaccharide vaccine, 23 valent Kelsy Mensah MD Work Phone: [facility] Work Phone: 11-02-1990 diphtheria and tetan us toxoids, adsorbed for pediatric use Kelsy Mensah MD Work Phone: [facility] Work Phone: Payers Date Payer Category Payer Unknown [id number] 1940 Unknown [id number] 1940 Unknown [id number] Unknown 75 Social History Date Type Detail Facility Start: 02-15-2013 Tobacco smoking stat us [facility] Never smoked tobacco [facility] Start: 04-23-2021 End: 05-30-2021 Alcohol intake Current non-drinker of alcohol (finding) [facility] Start: 1940 Sex Assigned At Not on file [facility] Start: 07-13-2021 End: 07-23-2021 Exposure to SARS-CoV-2 (event) Unable to assess [facility] Work Phone: Start: 02-15-2013 Tobacco use and exposure Smokeless tobacco non-user [facility] Clinical Notes 02-28-2014 to 10-09-2022 Telephone Encounter - Gisella Belcher RN - 12/17/2021 11:21 AM EDTTelephone Encounter - Kiki Young FIXTURE REPAIRER FABRICATOR - 12/14/2021 12:50 PM EDTTelephone Encounter - Ariadne Harrison FIXTURE REPAIRER FABRICATOR - 09/21/2021 2:53 PM EDT Note Date & Type Note Facility 10-09-2022 Note . MICRO - Microbiology PROCEDURE: Blood Culture (bacterial) [*1] SOURCE: Blood BODY SITE: COLLECTED DATE/TIME: 10/04/2022 11:57 EDT RECEIVED DATE/TIME: 10/04/2022 20:14 EDT START DATE/TIME: 10/04/2022 20:14 EDT FREE TEXT SOURCE: FINAL REPORTS Final Report [] Verified Date/Time/Personnel: 10/09/2022 20:59 EDT Blood Culture: No Growth at 5 days. PRELIMINARY REPORTS Preliminary Report [] Verified Date/Time/Personnel: 10/04/2022 20:59 EDT Culture has been received in lab and is no growth to date. Routine cultures are held for 5 days. Performing Locations *1: This test was performed at: [facility], [address] [place] [address], [facility] , [facility] ([place]) 10-09-2022 Note . MICRO - Microbiology PROCEDURE: Blood Culture (bacterial) [*1] SOURCE: Blood BODY SITE: COLLECTED DATE/TIME: 10/04/2022 12:02 EDT RECEIVED DATE/TIME: 10/04/2022 19:21 EDT START DATE/TIME: 10/04/2022 19:21 EDT FREE TEXT SOURCE: FINAL REPORTS Final Report [] Verified Date/Time/Personnel: 10/09/2022 19:59 EDT Blood Culture: No Growth at 5 days. PRELIMINARY REPORTS Preliminary Report [] Verified Date/Time/Personnel: 10/04/2022 19:59 EDT Culture has been received in lab and is no growth to date. Routine cultures are held for 5 days. Performing Locations *1: This test was performed at: [facility], [address] [place] [address], [id number] , [facility] ([place]) 10-08-2022 Note [place] PROGRESS NOTE NAME ACCOUNT SEX AGE ADMIT DISCHARGE PT MED. RECORD# NUMBER DATE DATE TYPE DARREN SANDOVAL [id number] F 81 10/04/22 2 J [id number] ROOM: [facility] DATE OF : 1940 DICTATING PHYSICIAN: Jerod Patterson DATE OF SERVICE: October 06, 2022 SUBJECTIVE: She does feel better. Her hand has less pain. She is able to move her right middle finger. She is afebrile. Update from nursing staff. OBJECTIVE: VITAL SIGNS: Blood pressure 139/70, heart rate 94, respirations 18, temperature 98.2, oxygen saturation 93% on room air. GENERAL: Well-nourished, well-developed pleasant female in no acute distress. Alert and cooperative. HEENT: Unremarkable. NECK: Supple. LUNGS: Normal respiratory effort. Equal lung expansion. MUSCULOSKELETAL: Right hand has decreased swelling on the posterior aspect. She has full range of motion of all digits. NEUROLOGIC: She is alert, able to answer questions appropriately. Speech is clear. DIAGNOSTIC DATA: Laboratory data; white count 12.1, hemoglobin 12.9, hematocrit 38.2. Sodium 134. BUN 39, creatinine 1.62. Blood sugar 227. Hemoglobin A1c 9.5%. ASSESSMENT AND PLAN: 1. Severe cellulitis right hand with attention to the right middle finger, possible osteomyelitis, which she has risk factors including uncontrolled diabetes mellitus type 2, severe rheumatoid arthritis, history of MRSA infection, amputation as well as peripheral vascular disease. She is on IV Zosyn. She received a dose of vancomycin. I will add the dose of vancomycin while waiting to rule out MRSA. PICC line has been placed without any apparent complications and MRI has been scheduled for tomorrow. I did discuss with her if osteomyelitis is ruled out I would recommend 2 weeks of IV antibiotics and if it does confirm osteomyelitis she may need 6 weeks of IV antibiotics and further intervention. 2. Uncontrolled diabetes mellitus type 2. Chacetus was increased. I will stop glyburide and monitor glucoscans with sliding insulin scale. She may need further mealtime coverage depending on her readings. 3. Peripheral vascular disease, complicating factor. 4. Severe rheumatoid arthritis, complicating factor. 5. History of cerebrovascular accident with paroxysmal atrial fibrillation on anticoagulation with Eliquis. Will adjust for kidney function. 6. Chronic kidney disease Stage III, has remained unchanged. 7. Hyponatremia, improved. 8. Above was discussed with patient. All of her questions were answered. She verbalized understanding of the plan. Page 1 of 2 DARREN SANDOVAL Progress Note DARREN SANDOVAL : 1940 I evaluated the patient myself the above E&M is done by me Julian patterson MD Dictated by lorrie Grimes for Dr. Patterson 10/06/22 10:47 JOB #: [id number] Transcribed By: dimitry 10/06/22 11:25 Electronically signed by: E-Sign: JEROD PATTERSON MD 10/08/22 14:48 Page 2 of 2 DARREN SANDOVAL Progress Note [facility] 10-08-2022 Note [place] HISTORY & PHYSICAL NAME ACCOUNT SEX AGE ADMIT DISCHARGE PT MED. RECORD# NUMBER DATE DATE TYPE DARREN SANDOVAL [id number] F 81 10/04/22 2 [id number] ROOM: [facility] DATE OF : [birth year] DICTATING PHYSICIAN: Jerod Patterson HISTORY OF PRESENT ILLNESS: This is an 81-year-old female with multiple chronic medical problems, including uncontrolled diabetes mellitus type 2 with insulin regimen, chronic kidney disease, coronary artery disease, and stroke. She was at [facility], and she stated that her right middle finger was red for about a week. The staff wanted to take the dressing off, as she was told to keep it open to air. It was red, warm and swollen. She was sent to the Emergency Room. She denied any fever or chills. She does have multiple medication allergies. Some of them are intolerances in the past. She had notable cellulitis. She has severe rheumatoid arthritis with nodes as a complicating factor and elevated blood sugars. X-ray was completed with possible osteomyelitis. She was admitted on IV Zosyn. She has not had an adverse reactions. Upon evaluation, family was in the room. She is a good historian as well as family helping with that. PAST MEDICAL HISTORY: According to her records: (1) Cerebral infarction with left hemiparesis. (2) Diabetes mellitus type 2 with hyperglycemia, uncontrolled, on an insulin regimen with last hemoglobin A1c of 8.8%. (3) Diabetic neuropathy secondary to diabetes. (4) Protein calorie malnutrition. (5) Right middle cerebral artery stenosis. (6) Coronary artery disease with previous CABG. (7) Angina. (8) Paroxysmal atrial fibrillation. (9) Peripheral vascular disease. (10) Congestive heart failure with no echocardiogram available for review. (11) Diverticulosis. (12) Recurrent bowel obstructions in the past requiring colostomy. (13) Hyperlipidemia. (14) Severe rheumatoid arthritis. (15) Poly-osteoarthritis. (16) Hypertension. (17) Chronic kidney disease, stage III. (18) Bilateral cataracts. (19) Ileostomy. (20) Abdominal wound. (21) Ventral hernia. 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 PAST SURGICAL HISTORY: (1) Cholecystectomy. (2) CABG x4 vessels. (3) Multiple digit surgeries/amputations. (4) Abdominal hernia repair. (5) Tumor removed from the left arm. (6) Appendectomy. (7) Colostomy. (8) Total abdominal hysterectomy. MEDICATIONS: Current medications according to her records: (1) Acetaminophen 650 mg every 6 hours p.r.n. (2) Amlodipine 5 mg daily. (3) Eliquis 5 mg twice daily. (4) Glyburide 2.5 mg twice daily. (5) NovoLog sliding scale with breakfast, lunch and supper. (6) Lantus 25 units subcutaneously q.p.m. ALLERGIES: Some of these are intolerances in the past and include amoxicillin, atorvastatin, bacitracin, clavulanic acid, fenofibrate, flurbiprofen, gemfibrozil, glipizide, metronidazole, neomycin, polymyxin-B, pravastatin, prednisolone, simvastatin, tramadol, and adhesive. Page 1 of 4 DARREN SANDOVAL History & Physical DARREN SANDOVAL :1940 FAMILY HISTORY: Father with CVA. Mother ; she had diabetes and heart disease. SOCIAL HISTORY: She is Christianity. She is currently at [employer]. She does not smoke nor drink alcohol. She has a supportive family. She has 2 daughters. Her son is . She has 10 grandchildren and 5 great-grandchildren. REVIEW OF SYSTEMS: She denies any headache or acute visual changes. No recent weight changes. No fever or chills. No headache. No chest pain. No shortness of breath. No abdominal pain. She does have a colostomy. No bowel or bladder changes that she is aware of. She has had some discomfort and redness in her right hand. PHYSICAL EXAMINATION GENERAL APPEARANCE: The patient was lying in bed in no acute distress. She is an alert, pleasant, cooperative, well-nourished, well-developed female. VITAL SIGNS: Blood pressure is 141/85, heart rate 82, respirations 16, temperature 97.9, and oxygen saturation 96% on room air. Weight is 159 pounds with a BMI of 29.15. HEENT: Normocephalic and atraumatic. PERRLA. Conjunctivae are not injected. External pinna with no lesions. Nares are patent. Mouth and throat with no erythema and no exudates. NECK: Supple. No JVD. LUNGS: Normal respiratory effort, equal lung expansion, and clear to auscultation bilaterally. HEART: Regular rate and rhythm. ABDOMEN: Positive bowel sounds, soft. She does have a colostomy in place. There is stool in the bag and a reducible ventral hernia. EXTREMITIES: No pitting edema. 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 She has a total of 7 toes. No open areas or erythema. Her hands have notable large nodes and deformity from rheumatoid arthritis. She has several amputations. Her right hand on the dorsal surface is erythematous, swollen and red. Her right middle finger is swollen, erythematous and warm. (more content not included)... [facility] 12-17-2021 Miscellaneous Notes Xochilt returns call and provider message given. Xochilt reports that daughter (Kaitlyn) schedules all of patient's appointments and will call back to schedule. Gisella Belcher RN Left a message for Xochilt (helps set up apts for pt) to call the office and ask to speak to a nurse. Kiki Young LPN Patient needs in office visit to be seen as she has not been evaluated in 8 months. Thank you Mariposa Carroll APRN.TOOTIE FYI: Bridgett with [facility] called and states pt has revoked hospice because pt feeling well and does not need this at this time. Kiki Young LPN documented in this encounter [facility] 11-07-2021 Miscellaneous Notes Bridgett @ [facility] calling to say [facility] did not receive faxed orders of CBC, HgbA1c and CMP. Re-faxed to . She will notify patient. Kiki Blum RN documented in this encounter [facility] 09-26-2021 Miscellaneous Notes Called and let Kike- [facility] know provider put Lantus through for Pt. Kike, [facility], reports patient has 1 1/2 pen left. Asking pcp to send lantus Rx to [facility]. Reports patient is taking 10 units if fasting is less than 150 and 16 units if fasting is greater than 150. Pended Rx. Kiley, daughter called, she has questions, please call her at: [phone]. Per daughter she is on her last insulin pen. Relayed message that the hospice nurse needs to speak to our office. left message for hospice nurse to call back to let us know if patient has had hypoglycemic episodes? Ariadne Harrison LPN Agreed Please let us know if she has symptoms of hypoglycemia Calling in today to get a prescription for Lantus Pens to be sent to [facility]. Insulin Glargine (Lantus Solostar U-100 Insulin) 100 UNITS/ML Pen 10 units if blood sugar is under 150 16 units if blood sugar is over 150 Any question please call Hospice. Reba Young Pss documented in this encounter [facility] 09-21-2021 Miscellaneous Notes Left message for Kike at [facility]. Ariadne Harrison LPN Would appreciate the magnesium lab Kike- [facility] called and is notified of providers message and instructions. She voices understanding. States they can always draw a Magnesium and drop it off. Cristina Jo RN Ok to take all the supplements except we may need a magnesium supplement to see if if is ok to cont on mag at 500. I am ordering that, she can check mag when ever she comes around here Kike at [facility] contacted to verify vitemains that patient is taking. Per Kike, patient has told her that she is taking the following vitamins once daily: Magnesium 500mg Vit D3 1000 units Fish Oil 500mg Vit C 500mg Multivitamin Please contact Kike at [phone] to let her know if patient should continue to take these vitamins with current renal impairment. Thank you. I missed the fact that she is on hospice Keti, Thanks for the input Can you ask kike to give us a list of all of patients medications? I am not sure of her medication list including her vitamins. Thank you. Kike with [facility] calling and has been updated on Dr. Mensah's recommendation for patient to take Lantus 16 units daily at bedtime daily. Kike also updated that patient has declined Pharmacy referral at this time. Kike requesting to also ask Dr. Mensah if it is okay for patient to continue taking her vitamins as prescribed due to renal impairments at this time? Patient currently only taking vitamins and prn medications at this time. Please call Kike at [phone]. Thank you. Her sugars are high over all I will set her up with our Pharmacist to help control her sugars. For now I would go up to taking 16 units of lantus at night time for sure Kike reporting patient's BS readings: fasting, 2 hours after breakfast, 2 hours after lunch, 2 hours after dinner: 6-3: 163, 263, 352, 250: 10 unit(s) lantus 6-4: 231, 275, 378, 375: 10 unit(s) lantus 6-5: 258, none, 389, 385: 10 unit(s) lantus 6-6: 166, 239, 359, 389: 10 unit(s) 6-7: 220, 310, 325, 365: 12 unit(s) 6-8: 272, 265, 355, 295: 10 unit(s) 6-9: 189, 193, 358, none: Kike doesn't know if patient took lantus this night. Reports patient takes lantus on her own, doctor didn't order it, and Hospice doesn't order insulin. Hospice does not cover insulin. Family is willing to pay for it. Reports patient started it on her own somtime in July. Please phone Kike with advise on patient's lantus dosing since patient is taking it on her own (see 08-16 telephone encounter). documented in this encounter [facility] 09-20-2021 Miscellaneous Notes Phoned Kike, and given provider's message below with verbalized understanding. I think what the patient is doing with insulin is good., To cont the same, At this time I dont think there is need for a clinical pharmacist Kike @ [facility] calling to let PCP know patient is self adjusting Lantus Insulin dose. She is supposed to take 16 Units daily at bedtime. Per Kike, if fasting AM blood sugar is greater than 150 patient takes 16 Units. If fasting blood sugar is less than 150 she only takes 10 Units. Patient says she is willing to talk to a clinical pharmacist about DM if she can schedule a virtual visit. Best to schedule through daughter Kaitlyn, [place] # [phone]. Kiki Blum RN documented in this encounter [facility] 09-06-2021 Miscellaneous Notes Noted below. Hospice nurse has been in contact with PCP office regarding medications and below message. Please see other encounter from 09/04. Santiago JimenezD, BCACP Primary Care Clinical Pharmacist [facility] Spoke with pt. regarding New referral. Pt. declined to schedule apt at this time. Pt. stated she is receiving hospice care and that the nurse has taken away all her medication. Pt. only taking her vitamins. Pt. can be reached with questions at [phone] . documented in this encounter [facility] 08-22-2021 Miscellaneous Notes Bridgett notified. I would like for to have a log of blood sugar level, checked 4 times a day, Fasting, and 2 hours after bf, Lunch and dinner and then I can tell what she should do for lantus dosing Bridgett from [facility] calling and asking about patient's Lantus orders. Patient has 3 Lantus pens and has been injecting herself when patient feels like she needs it. Patient sometimes gives herself Lantus at night, sometimes she doesn't. Patient also adjusts her dose to what she thinks she needs. Bridgett asking if provider can write instructions for Lantus as well as parameters when patient should be giving herself Lantus. Patient's fasting blood sugar was 162. Patient checks her sugars pretty regularly. Patient admitted herself into [facility] due to Kidney Function on 07/28/2021. Patient is only on comfort medications at this time. Catalytic Converter Operator had taken her off of all her blood pressure medications. Please review and advise, and give Bridgett a call back, Laura Lizarraga RN documented in this encounter [facility] 08-09-2021 Miscellaneous Notes Awaiting response from patient or Hospice. Does patient need a referral or anything from us? Thank you Mariposa Carroll APRN.TOOTIE Per a Wait List Message, patient is going to Hospice. Please contact patient to see if they need a referral/records transfer to facilitate this. Upcoming appointments cancelled. Laura Mckoy documented in this encounter [facility] 04-25-2021 Miscellaneous Notes Patient's daughter returned call and given provider's message below and will inform patient. Adrian King RN Left message for patient's daughter to call back to get information from pcp and call to speak with triage nurse. Ariadne Harrison LPN ----- Message from Mariposa Carroll APRN.CNP sent at 04/25/2021 10:54 AM EST ----- Please let patient know that her urine culture showed mixed bacteria which can be seen when the urine sample was not completely a clean catch and was possibly contaminated. With the symptoms she was experiencing, I would like her to complete the current antibiotic as prescribed, and follow up for any new or persisting symptoms. Thank you Mariposa Carroll APRN.CHIEF SPECIALIST LEED documented in this encounter [facility] documented as of this encounter (statuses as of 08/15/2021) [facility] History of Past illness Narrative* Problem Noted Date Resolved Date Type II or unspecified type diabetes mellitus with neurological manifestations, not stated as uncontrolled(250.60) 02/28/2014 06/07/2015 Diabetes mellitus with neuropathy 05/24/2013 02/28/2014 Hypertension 11/05/2010 09/16/2016 Overview: 06/26/2016: Home BP Cuff Validated. Home BP: 164/59 Office BP: 172/58 Last Assessment & Plan: Takes her medication regularly, currently high but might come down. Elevated liver enzymes 07/02/2010 1 Viral warts, unspecified 014 Jaundice 11/06/2010 documented as of this encounter (statuses as of 08/22/2021) [facility] History of Past illness Narrative* Problem Noted Date Resolved Date Type II or unspecified type diabetes mellitus with neurological manifestations, not stated as uncontrolled(250.60) 02/28/2014 06/07/2015 Diabetes mellitus with neuropathy 05/24/2013 02/28/2014 Hypertension 11/05/2010 09/16/2016 Overview: 06/26/2016: Home BP Cuff Validated. Home BP: 164/59 Office BP: 172/58 Last Assessment & Plan: Takes her medication regularly, currently high but might come down. Elevated liver enzymes 07/02/2010 1 Viral warts, unspecified 014 Jaundice 11/06/2010 documented as of this encounter (statuses as of 09/06/2021) [facility] History of Past illness Narrative* Problem Noted Date Resolved Date Type II or unspecified type diabetes mellitus with neurological manifestations, not stated as uncontrolled(250.60) 02/28/2014 06/07/2015 Diabetes mellitus with neuropathy 05/24/2013 02/28/2014 Hypertension 11/05/2010 09/16/2016 Overview: 06/26/2016: Home BP Cuff Validated. Home BP: 164/59 Office BP: 172/58 Last Assessment & Plan: Takes her medication regularly, currently high but might come down. Elevated liver enzymes 07/02/2010 1 Viral warts, unspecified 014 Jaundice 11/06/2010 documented as of this encounter (statuses as of 09/20/2021) [facility] History of Past illness Narrative* Problem Noted Date Resolved Date Type II or unspecified type diabetes mellitus with neurological manifestations, not stated as uncontrolled(250.60) 02/28/2014 06/07/2015 Diabetes mellitus with neuropathy 05/24/2013 02/28/2014 Hypertension 11/05/2010 09/16/2016 Overview: 06/26/2016: Home BP Cuff Validated. Home BP: 164/59 Office BP: 172/58 Last Assessment & Plan: Takes her medication regularly, currently high but might come down. Elevated liver enzymes 07/02/2010 1 Viral warts, unspecified 014 Jaundice 11/06/2010 documented as of this encounter (statuses as of 09/26/2021) [facility] History of Past illness Narrative* Problem Noted Date Resolved Date Type II or unspecified type diabetes mellitus with neurological manifestations, not stated as uncontrolled(250.60) 02/28/2014 06/07/2015 Diabetes mellitus with neuropathy 05/24/2013 02/28/2014 Hypertension 11/05/2010 09/16/2016 Overview: 06/26/2016: Home BP Cuff Validated. Home BP: 164/59 Office BP: 172/58 Last Assessment & Plan: Takes her medication regularly, currently high but might come down. Elevated liver enzymes 07/02/2010 1 Viral warts, unspecified 014 Jaundice 11/06/2010 documented as of this encounter (statuses as of 11/07/2021) [facility] History of Past illness Narrative* Problem Noted Date Resolved Date Type II or unspecified type diabetes mellitus with neurological manifestations, not stated as uncontrolled(250.60) 02/28/2014 06/07/2015 Diabetes mellitus with neuropathy 05/24/2013 02/28/2014 Hypertension 11/05/2010 09/16/2016 Overview: 06/26/2016: Home BP Cuff Validated. Home BP: 164/59 Office BP: 172/58 Last Assessment & Plan: Takes her medication regularly, currently high but might come down. Elevated liver enzymes 07/02/2010 1 Viral warts, unspecified 014 Jaundice 11/06/2010 documented as of this encounter (statuses as of 12/19/2021) [facility] History of Past illness Narrative* Problem Noted Date Resolved Date Type II or unspecified type diabetes mellitus with neurological manifestations, not stated as uncontrolled(250.60) 02/28/2014 06/07/2015 Diabetes mellitus with neuropathy 05/24/2013 02/28/2014 Hypertension 11/05/2010 09/16/2016 Overview: 06/26/2016: Home BP Cuff Validated. Home BP: 164/59 Office BP: 172/58 Last Assessment & Plan: Takes her medication regularly, currently high but might come down. Elevated liver enzymes 07/02/2010 1 Viral warts, unspecified 014 Jaundice 11/06/2010 documented as of this encounter (statuses as of 01/30/2022) [facility] History of Past illness Narrative* Problem Noted Date Resolved Date Type II or unspecified type diabetes mellitus with neurological manifestations, not stated as uncontrolled(250.60) 02/28/2014 06/07/2015 Diabetes mellitus with neuropathy 05/24/2013 02/28/2014 Hypertension 11/05/2010 09/16/2016 Overview: 06/26/2016: Home BP Cuff Validated. Home BP: 164/59 Office BP: 172/58 Last Assessment & Plan: Takes her medication regularly, currently high but might come down. 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, not stated as uncontrolled documented in this encounter [facility]* Diagnosis Controlled type 2 diabetes mellitus without complication, without long-term current use of insulin (HCC)- Primary Hypomagnesemia Disorders of magnesium metabolism documented in this encounter [facility] Advance Directives No Advanced Directives Records FoundDocuments on File Type Date Recorded 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 Advance Directive(s) Summary Purpose Family History No Family History Records FoundNo Family History Records FoundNo Family History Records Found Additional Source Comments Source Comments (unrecognize d section and content) In the event this informatio n is protected by the Federal Confidentiality of Alcohol and Drug Abuse Patient Records regulations: The Federal rules restrict any use of the information to criminally investigate or prosecute any alcohol or drug abuse patient.[facility] the event this information is protected by the Federal Confidentiality of Alcohol and Drug Abuse Patient Records regulations: The Federal rules restrict any use of the information to criminally investigate or prosecute any alcohol or drug abuse patient.[facility] the event this information is protected by the Federal Confidentiality of Alcohol and Drug Abuse Patient Records regulations: The Federal rules restrict any use of the information to criminally investigate or prosecute any alcohol or drug abuse patient.[facility] the event this information is protected by the Federal Confidentiality of Alcohol and Drug Abuse Patient Records regulations: The Federal rules restrict any use of the information to criminally investigate or prosecute any alcohol or drug abuse patient.[facility] the event this information is protected by the Federal Confidentiality of Alcohol and Drug Abuse Patient Records regulations: The Federal rules restrict any use of the information to criminally investigate or prosecute any alcohol or drug abuse patient.[facility] the event this information is protected by the Federal Confidentiality of Alcohol and Drug Abuse Patient Records regulations: The Federal rules restrict any use of the information to criminally investigate or prosecute any alcohol or drug abuse patient.[facility] the event this information is protected by the Federal Confidentiality of Alcohol and Drug Abuse Patient Records regulations: The Federal rules restrict any use of the information to criminally investigate or prosecute any alcohol or drug abuse patient.[facility] the event this information is protected by the Federal Confidentiality of Alcohol and Drug Abuse Patient Records regulations: The Federal rules restrict any use of the information to criminally investigate or prosecute any alcohol or drug abuse patient.[facility] the event this information is protected by the Federal Confidentiality of Alcohol and Drug Abuse Patient Records regulations: The Federal rules restrict any use of the information to criminally investigate or prosecute any alcohol or drug abuse patient.[facility] Reason for Visit (unrecogniz ed section and content) Reason Comments Patient Update from Hospice Reason Comments New Pharmacy Med-Review Reason Comments Prescription Refills Reason Comments Faxed lab orders Reason Comments [facility] Reason Comments BS readings Medication Update Reason Comments Results Care Teams (unrecognized sec tion and content) Certified Welder Relationship Specialty Start Date End Date Kelsy Mensah MD [address] [place] [place] [address] PCP - General Internal Medicine 05/24/16 Rashid Ortiz [address] [place] [address] Physician Cardiology 09/15/15 Certified Welder Relationship Specialty Start Date End Date Kelsy Mensah MD [address] [place] [place] [address] PCP - General Internal Medicine 05/24/16 Rashid Ortiz [address] [place] [address] Physician Cardiology 09/15/15 Certified Welder Relationship Specialty Start Date End Date Kelsy Mensah MD [address] [place] [place] [address] PCP - General Internal Medicine 05/24/16 Rashid Ortiz [address] [place] [address] Physician Cardiology 09/15/15 Certified Welder Relationship Specialty Start Date End Date Kelsy Mensah MD [address] [place] [place] [address] PCP - General Internal Medicine 05/24/16 Rashid Ortiz [address] [place] [address] Physician Cardiology 09/15/15 Certified Welder Relationship Specialty Start Date End Date Kelsy Mensah MD [address] [place] [place] [address] PCP - General Internal Medicine 05/24/16 Rashid Ortiz [address] [place] [address] Physician Cardiology 09/15/15 Certified Welder Relationship Specialty Start Date End Date Kelsy Mensah MD [address] [place] [address] PCP - General Internal Medicine 05/24/16 Rashid Ortiz [address] [place] [address] [address] [place] [address] Physician Cardiology 09/15/15 INFORMATION SOURCE (unrecogn ized section and content) DATE CREATED AUTHOR AUTHOR'S ORGANIZ ATION 12/01/2022 [facility] DATE CREATED AUTHOR AUTHOR'S ORGANIZ ATION 03/25/2023 [facility] FOR RECORDS PERTAINING TO PATIENTS WHO ARE OR HAVE BEEN ENROLLED IN A CHEMICAL DEPENDENCY/SUBSTANCEABUSE PROGRAM, SOME INFORMATION MAY BE OMITTED. This clinical summary was aggregated from multiple sources. Caution should be exercised in using it in the provision of clinical care. This summary normalizes information from multiple sources, and as a consequence, information in this document may materially change the coding, format and clinical context of patient data. In addition, data may be omitted in some cases. CLINICAL DECISIONS SHOULD BE BASED ON THE PRIMARY CLINICAL RECORDS. [employer] provides no warranty or guarantee of the accuracy or completeness of information in this document.
--- OUTSIDE RECORDS SUMMARY | 2023-05-17 05:57 | XMS RPT_ITS | CCD ---
Demographics Address [address] [address] Preferred Language en Marital Status Single Jainism Affiliation Unknown Race White Ethnic Group Not or Lati no Author Name Unknown Address [address] [place] [address] Organization [facility] Care Team Providers Care Glue Mixer Name Role Phone Rashid Ortiz Unavailable Makenna [...] (9 sources) atorvastatin Drug Allergy 5 Intolerance [facility] Work Phone: (9 sources) bacitracin / neomycin / polymyxin b Drug Allergy 5 [facility] Work Phone: (9 sources) Fenofibrate Drug Allergy 5 Intolerance [facility] Work Phone: (9 sources) Flurbiprofen Drug Allergy 0 GI Upset [facility] (9 sources) Gemfibrozil Drug Allergy 5 GI Upset [facility] Work Phone: (9 sources) glipiZIDE Drug Allergy 5 GI Upset [facility] Work Phone: (9 sources) metroNIDAZOLE Drug Allergy 5 GI Upset [facility] (9 sources) Pravastatin Drug Allergy 6 Intolerance [facility] (9 sources) Simvastatin Drug Allergy 5 Intolerance [facility] (9 sources) traMADol Drug Allergy 7 GI Upset [facility] (9 sources) ADHESIVE TAPE [Other] Propensity to adverse reactions 5 [facility] Work Phone: (1 source) Adhesive agent; Translations: [ADHESIVE] Propensity to adverse reactions (disorder) [facility] (1 source) Amoxicillin Drug Allergy [facility] (1 source) atorvastatin Drug Allergy [facility] (1 source) Bacitracin Drug Allergy [facility] (1 source) Clavulanate Drug Allergy [facility] (1 source) Fenofibrate Drug Allergy [facility] (1 source) Flurbiprofen Drug Allergy [facility] (1 source) Gemfibrozil Drug Allergy [facility] (1 source) glipiZIDE Drug Allergy [facility] (1 source) metroNIDAZOLE Drug Allergy [facility] (1 source) Neomycin Drug Allergy [facility] (1 source) Pravastatin Drug Allergy [facility] (1 source) prednisoLONE Drug Allergy [facility] (1 source) Simvastatin Drug Allergy [facility] (1 source) traMADol Drug Allergy [facility] (1 source) POLYMYXIN B Drug allergy (disorder) [facility] (1 source) 10/04/2022 (+) MRSA SCREEN NARES; Translations: [10/04/2022 (+) MRSA SCREEN NARES] Propensity to adverse reactions (disorder) [facility] Medications Completed/Discontinued Medications Medication Drug [...] disease (1 source) Atherosclerotic heart disease [place] coronary artery without angina pectoris; Translations: [Atherosclerotic heart disease [place] coronary artery without angina pectoris] Onset: 10-05-2022 [...] Onset: 08-14-2022 Episodic Other aftercare (1 source) extermination inspector (current) use of insulin; Translations: [alf (current) use of insulin] Onset: 10-05-2022 Episodic Other aftercare (1 source) extermination inspector (current) use of anticoagulants; Translations: [alf (current) use of anticoagulants] Onset: 10-05-2022 Episodic Other aftercare (1 source) Other residential (current) drug therapy; Translations: [Other rodent exterminator (current) drug therapy] Onset: 08-14-2022 Episodic Other [...] Provider Facility Start: 03-24-2023 ambulatory HINA HUTTON [facility] Start: 10-05-2022 End: 10-08-2022 Evaluation and management of inpatient HINA HUTTON [facility] Start: 08-14-2022 End: 03-23-2023 ambulatory HINA HUTTON [facility] Start: 12-13-2021 Telephone encounter Kelsy aguayo MD Work Phone: Internal Medicine [place] Procedures Date Procedure Procedure Detail Performing Clinician Start: 02-02-2018 Adult depression screening assessment Kelsy Mensah MD Work Phone: Plan of Treatment Date Care Activity Detail Author Start: 07-24-2022 SERUM CREATININE SERUM CREATININE Cl [facility] Start: 05-30-2022 BP CONTROLLED (<130/80) BP CONTROLLE D (<130/80) [facility] Start: 04-23-2022 ANNUAL PCP TEAM TOOL TROUBLE SHOOTER YANA DISEASE VISIT ANNUAL PCP TEAM CHRONIC DISEASE VISIT [facility] Start: 11-22-2021 Influenza vaccination C [facility] Start: 10-21-2021 Hemoglobin A1c/Hemoglobin.total in Blood HBA1C [facility] Start: 09-29-2021 3 comp foot exam completed DIABETIC FOOT EXAM [facility] Start: 08-02-2021 HEMOGLOBIN/HEMATOCRIT HEMOGLOBIN/HEM ATOCRIT [facility] Start: 08-02-2021 Hepatitis B surface antibody level LDL CHOLESTEROL [facility] Start: 03-24-2021 ADVANCE DIRECTIVE DISCUSSION ADVANCE DIRECTIVE DISCUSSION [facility] Start: 03-24-2021 DEPRESSION ASSESSMENT DEPRESSION ASS ESSMENT [facility] Start: 10-13-2019 Hepatitis C antibody , confirmatory test DILATED RETINAL EXAM [facility] Start: 02-02-2019 Adult depression scr eening assessment DEPRESSION SCREENING [facility] Start: 05-11-2018 Urine microalbumin profile DTAP,TDAP ,TD (3 - Tdap) [facility] Start: 2005 BONE DENSITY BONE DENSITY [facility] Start: 1990 SHINGRIX VACCINE (1 of 2) RAMOS GRIX VACCINE (1 of 2) [facility] Start: 1945 COVID-19 VACCINE (#1) COVID-19 VACCI NE (#1) [facility] Start: 06-20-1941 COVID-19 VACCINE (#1) COVID-19 VACCI NE (#1) [facility] Immunizations Immunization Date Immunization Notes Care Provider Muna paiz 02-02-2020 influenza, seasonal, injectable, preservative free Kelsy Mensah MD Work Phone: [facility] 01-20-2019 influenza, high dose seasonal, preservative-free Kelsy Mensah MD Work Phone: [facility] Work Phone: 02-18-2018 influenza, high dose seasonal, preservative-free Kelsy Mensah MD Work Phone: [facility] Work Phone: 12-26-2016 influenza, seasonal, injectable, preservative free Kelsy Mensah MD Work Phone: [facility] 05-20-2016 pneumococcal conjuga te vaccine, 13 valent Kelsy Mensah MD Work Phone: [facility] Work Phone: 01-15-2016 influenza, high dose seasonal, preservative-free Kelsy Mensah MD Work Phone: [facility] 01-06-2015 influenza, high dose seasonal, preservative-free Kelsy Mensah MD Work Phone: [facility] 01-18-2014 influenza, seasonal, injectable, preservative free Kelsy Mensah MD Work Phone: [facility] 01-10-2014 influenza, seasonal, injectable Kelsy Mensah MD Work Phone: [facility] 01-05-2014 influenza, seasonal, injectable Kelsy Mensah MD Work Phone: [facility] 01-20-2013 influenza virus vacc ine, unspecified formulation Kelsy Mensah MD Work Phone: [facility] 01-09-2010 influenza virus vacc ine, whole virus Kelsy Mensah MD Work Phone: [facility] 01-17-2009 influenza virus vacc ine, whole virus Kelsy Mensah MD Work Phone: [facility] 11-22-2008 pneumococcal polysaccharide vaccine, 23 valent Kelsy Mensah MD Work Phone: [facility] 05-11-2008 diphtheria and tetan us toxoids, adsorbed for pediatric use Kelsy Mensah MD Work Phone: [facility] Work Phone: 02-09-2008 influenza virus vacc ine, whole virus Kelsy Mensah MD Work Phone: [facility] 01-26-2007 influenza virus vacc ine, unspecified formulation Kelsy Mensah MD Work Phone: [facility] Work Phone: 01-26-2007 pneumococcal polysaccharide vaccine, 23 valent Kelsy Mensah MD Work Phone: [facility] Work Phone: 03-04-2001 pneumococcal polysaccharide vaccine, 23 valent Kelsy Mensah MD Work Phone: [facility] Work Phone: 11-02-1990 diphtheria and tetan us toxoids, adsorbed for pediatric use Kelsy Mensah MD Work Phone: [facility] Work Phone: Payers Date Payer Category Payer Unknown [id number] 1940 Unknown [id number] 1940 Unknown [id number] Unknown 75 Social History Date Type Detail Facility Start: 02-15-2013 Tobacco smoking stat us NEIS Never smoked tobacco [facility] Start: 04-23-2021 End: 05-30-2021 Alcohol intake Current non-drinker of alcohol (finding) [facility] Start: 1940 Sex Assigned At Not on file C [facility] Start: 07-13-2021 End: 07-23-2021 Exposure to SARS-CoV-2 (event) Unable to assess [facility] Work Phone: Start: 02-15-2013 Tobacco use and exposure Smokeless tobacco non-user [facility] Clinical Notes 02-28-2014 to 10-09-2022 Telephone Encounter - Gisella Belcher RN - 12/17/2021 11:21 AM EDTTelephone Encounter - Kiki Young PAINT TECHNICIAN - 12/14/2021 12:50 PM EDTTelephone Encounter - Ariadne Harrison PAINT TECHNICIAN - 09/21/2021 2:53 PM EDT Note Date [...] Locations *1: This test was performed at: [facility], [address] [place] [address], [facility] , [facility] ([place]) 10-09-2022 Note . MICRO - Microbiology PROCEDURE: [...] Locations *1: This test was performed at: [facility], [address] [place] [address], [id number] , [facility] ([place]) 10-08-2022 Note [facility] PROGRESS NOTE NAME ACCOUNT SEX AGE ADMIT DISCHARGE PT MED. RECORD# NUMBER DATE DATE TYPE DARREN SANDOVAL [id number] F 81 10/04/22 2 J [id number] ROOM: [facility] DATE OF : 1940 DICTATING PHYSICIAN: Jerod [...] for Dr. Patterson 10/06/22 10:47 JOB #: [id number] Transcribed By: dimitry 10/06/22 11:25 Electronically signed by: E-Sign: JEROD PATTERSON MD 10/08/22 14:48 Page 2 of 2 DARREN SANDOVAL Progress Note [facility] 10-08-2022 Note [facility] HISTORY & PHYSICAL NAME ACCOUNT SEX AGE ADMIT DISCHARGE PT MED. RECORD# NUMBER DATE DATE TYPE DARREN SANDOVAL [id number] F 81 10/04/22 2 [id number] ROOM: [facility] DATE OF : 40 DICTATING PHYSICIAN: Jerod Patterson HISTORY OF PRESENT ILLNESS: This is an 81-year-old female with multiple chronic medical problems, including uncontrolled diabetes mellitus type 2 with insulin regimen, chronic kidney disease, coronary artery disease, and stroke. She was at [facility], and she stated that her right middle [...] and heart disease. SOCIAL HISTORY: She is Yarsanism. She is currently at [facility]. She does not smoke nor drink alcohol. [...] erythematous and warm. (more content not included)... [facility] 12-17-2021 Miscellaneous Notes Xochilt returns call [...] in 8 months. Thank you Mariposa Carroll APRN.OTOTIE FYI: Bridgett with [facility] called and states pt has revoked hospice because pt feeling well and does not need this at this time. Kiki Young LPN documented in this encounter [facility] 11-07-2021 Miscellaneous Notes Bridgett @ [facility] calling to say [facility] did not receive faxed orders of CBC, HgbA1c and CMP. Re-faxed to . She will notify patient. Kiki Blum RN documented in this encounter [facility] 09-26-2021 Miscellaneous Notes Called and let Kike- [facility] know provider put Lantus through for Pt. Kike, [facility], reports patient has 1 1/2 pen left. Asking pcp to send lantus Rx to [facility]. Reports patient is taking 10 units if fasting is less than 150 and 16 units if fasting is greater than 150. Pended Rx. Kiley, daughter called, she has questions, please call her at: [phone]. Per daughter she is on her last [...] Lantus Pens to be sent to [facility]. Insulin Glargine (Lantus Solostar U-100 Insulin) 100 UNITS/ML Pen 10 units if blood sugar is under 150 16 units if blood sugar is over 150 Any question please call Hospice. Reba Young Pss documented in this encounter [facility] 09-21-2021 Miscellaneous Notes Left message for Kike at [facility]. Ariadne Harrison LPN Would appreciate the magnesium lab Kike- [facility] called and is notified of [...] ever she comes around here Kike at [facility] contacted to verify vitemains that patient is taking. Per Kike, patient has told her that she is taking the following vitamins once daily: Magnesium 500mg Vit D3 1000 units Fish Oil 500mg Vit C 500mg Multivitamin Please contact Kike at [phone] to let her know if patient should continue to take these vitamins with current renal impairment. Thank you. I missed the fact that she is on hospice Keti, Thanks for the input Can you ask kike to give us a list of all of patients medications? I am not sure of her medication list including her vitamins. Thank you. Kike with [facility] calling and has been updated on Dr. [...] at this time. Please call Kike at [phone]. Thank you. Her sugars are high over [...] 08-16 telephone encounter). documented in this encounter [facility] 09-20-2021 Miscellaneous Notes Phoned Kike, and given provider's message below with verbalized understanding. I think what the patient is doing with insulin is good., To cont the same, At this time I dont think there is need for a clinical pharmacist Kike @ [facility] calling to let PCP know patient is [...] to schedule through daughter Kaitlyn, [place] # [phone]. Kiki Blum RN documented in this encounter [facility] 09-06-2021 Miscellaneous Notes Noted below. Hospice nurse has been in contact with PCP office regarding medications and below message. Please see other encounter from 09/04. Santiago JimenezD, BCACP Primary Care Clinical Pharmacist [facility] Spoke with pt. regarding New referral. Pt. declined to schedule apt at this time. Pt. stated she is receiving hospice care and that the nurse has taken away all her medication. Pt. only taking her vitamins. Pt. can be reached with questions at [phone] . documented in this encounter [facility] 08-22-2021 Miscellaneous Notes Bridgett notified. I would like for to have a log of blood sugar level, checked 4 times a day, Fasting, and 2 hours after bf, Lunch and dinner and then I can tell what she should do for lantus dosing Bridgett from [facility] calling and asking about patient's Lantus [...] only on comfort medications at this time. Correctional Security Officer had taken her off of all her blood pressure medications. Please review and advise, and give Bridgett a call back, Laura Lizarraga RN documented in this encounter [facility] 08-09-2021 Miscellaneous Notes Awaiting response from patient or Hospice. Does patient need a referral or anything from us? Thank you Mariposa Carroll APRN.TOOTIE Per a Wait List Message, patient is going to Hospice. Please contact patient to see if they need a referral/records transfer to facilitate this. Upcoming appointments cancelled. Laura Mckoy documented in this encounter [facility] 04-25-2021 Miscellaneous Notes Patient's daughter returned call [...] or persisting symptoms. Thank you Mariposa Carroll APRN.PRENATAL GENETIC COUNSELOR documented in this encounter [facility] documented as of this encounter (statuses as of 08/15/2021) [facility] History of Past illness Narrative* Problem Noted [...] of this encounter (statuses as of 08/22/2021) [facility] History of Past illness Narrative* Problem Noted [...] of this encounter (statuses as of 09/06/2021) [facility] History of Past illness Narrative* Problem Noted [...] of this encounter (statuses as of 09/20/2021) [facility] History of Past illness Narrative* Problem Noted [...] of this encounter (statuses as of 09/26/2021) [facility] History of Past illness Narrative* Problem Noted [...] of this encounter (statuses as of 11/07/2021) [facility] History of Past illness Narrative* Problem Noted [...] of this encounter (statuses as of 12/19/2021) [facility] History of Past illness Narrative* Problem Noted [...] of this encounter (statuses as of 01/30/2022) [facility] History of Past illness Narrative* Problem Noted [...] of this encounter (statuses as of 02/05/2022) [facility] Diagnosis Type II diabetes mellitus with neurological manifestations (HCC) Type II or unspecified type diabetes mellitus with neurological manifestations, not stated as uncontrolled documented in this encounter [facility]* Diagnosis Controlled type 2 diabetes mellitus without complication, without long-term current use of insulin (HCC)- Primary Hypomagnesemia Disorders of magnesium metabolism documented in this encounter [facility] Advance Directives No Advanced Directives Records FoundDocuments on File Type Date Recorded 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 Advance Directive(s) Summary Purpose Family [...] or prosecute any alcohol or drug abuse patient.[facility] the event this information is protected by the Federal Confidentiality of Alcohol and Drug Abuse Patient Records regulations: The Federal rules restrict any use of the information to criminally investigate or prosecute any alcohol or drug abuse patient.[facility] the event this information is protected by the Federal Confidentiality of Alcohol and Drug Abuse Patient Records regulations: The Federal rules restrict any use of the information to criminally investigate or prosecute any alcohol or drug abuse patient.[facility] the event this information is protected by the Federal Confidentiality of Alcohol and Drug Abuse Patient Records regulations: The Federal rules restrict any use of the information to criminally investigate or prosecute any alcohol or drug abuse patient.[facility] the event this information is protected by the Federal Confidentiality of Alcohol and Drug Abuse Patient Records regulations: The Federal rules restrict any use of the information to criminally investigate or prosecute any alcohol or drug abuse patient.[facility] Hospital[facility] the event this information is protected by the Federal Confidentiality of Alcohol and Drug Abuse Patient Records regulations: The Federal rules restrict any use of the information to criminally investigate or prosecute any alcohol or drug abuse patient.[facility] Hospital[facility] the event this information is protected by the Federal Confidentiality of Alcohol and Drug Abuse Patient Records regulations: The Federal rules restrict any use of the information to criminally investigate or prosecute any alcohol or drug abuse patient.[facility] Hospital[facility] the event this information is protected by the Federal Confidentiality of Alcohol and Drug Abuse Patient Records regulations: The Federal rules restrict any use of the information to criminally investigate or prosecute any alcohol or drug abuse patient.[facility] Hospital[facility] the event this information is protected by the Federal Confidentiality of Alcohol and Drug Abuse Patient Records regulations: The Federal rules restrict any use of the information to criminally investigate or prosecute any alcohol or drug abuse patient.[facility] Reason for Visit (unrecogniz ed section and content) Reason Comments Patient Update from Hospice Reason Comments New Pharmacy Med-Review Reason Comments Prescription Refills Reason Comments Faxed lab orders Reason Comments [facility] Reason Comments BS readings Medication Update Reason Comments Results Care Teams (unrecognized sec tion and content) Glue Mixer Relationship Specialty Start Date End Date Kelsy Mensah MD [address] [place] [address] PCP - General Internal Medicine 05/24/16 Rashid Ortiz [address] [place] [address] Physician Cardiology 09/15/15 Glue Mixer Relationship Specialty Start Date End Date Kelsy Mensah MD [address] [place] [address] PCP - General Internal Medicine 05/24/16 Rashid Ortiz [address] [place] [address] Physician Cardiology 09/15/15 Glue Mixer Relationship Specialty Start Date End Date Kelsy Mensah MD [address] [place] [address] PCP - General Internal Medicine 05/24/16 Rashid Ortiz [address] [place] [address] Physician Cardiology 09/15/15 Glue Mixer Relationship Specialty Start Date End Date Kelsy Mensah MD [address] [place] [address] PCP - General Internal Medicine 05/24/16 Rashid Ortiz [address] [place] [address] Physician Cardiology 09/15/15 Glue Mixer Relationship Specialty Start Date End Date Kelsy Mensah MD [address] [place] [address] PCP - General Internal Medicine 05/24/16 Rashid Ortiz [address] [place] [address] Physician Cardiology 09/15/15 Glue Mixer Relationship Specialty Start Date End Date Kelsy Mensah MD [address] [place] [address] PCP - General Internal Medicine 05/24/16 Rashid Ortiz [address] [address] [address] [place] [address] Physician Cardiology 09/15/15 INFORMATION SOURCE (unrecogn ized section and content) DATE CREATED AUTHOR AUTHOR'S ORGANIZ ATION 12/01/2022 [facility] DATE CREATED AUTHOR AUTHOR'S ORGANIZ ATION 03/25/2023 [facility] FOR RECORDS PERTAINING TO PATIENTS WHO ARE [...] BE BASED ON THE PRIMARY CLINICAL RECORDS. [employer] provides no warranty or guarantee of the accuracy or completeness of information in this document.
--- OUTSIDE RECORDS SUMMARY | 2023-05-17 05:59 | XMS RPT_ITS | CCD ---
Demographics Address [address] [address] Preferred Language en Marital Status Single Protestant Affiliation Unknown Race White Ethnic Group Not or Lati no Author Name Unknown Address [address] [place] [address] Organization [facility] Care Team Providers Care Oracle Applications Developer Name Role Phone Rashid Ortiz Unavailable Makenna [...] (9 sources) atorvastatin Drug Allergy 5 Intolerance [facility] Work Phone: (9 sources) bacitracin / neomycin / polymyxin b Drug Allergy 5 [facility] Work Phone: (9 sources) Fenofibrate Drug Allergy 5 Intolerance [facility] Work Phone: (9 sources) Flurbiprofen Drug Allergy 0 GI Upset [facility] (9 sources) Gemfibrozil Drug Allergy 5 GI Upset [facility] Work Phone: (9 sources) glipiZIDE Drug Allergy 5 GI Upset [facility] Work Phone: (9 sources) metroNIDAZOLE Drug Allergy 5 GI Upset [facility] (9 sources) Pravastatin Drug Allergy 6 Intolerance [facility] (9 sources) Simvastatin Drug Allergy 5 Intolerance [facility] (9 sources) traMADol Drug Allergy 7 GI Upset [facility] (9 sources) ADHESIVE TAPE [Other] Propensity to adverse reactions 5 [facility] Work Phone: (1 source) Adhesive agent; Translations: [ADHESIVE] Propensity to adverse reactions (disorder) [facility] (1 source) Amoxicillin Drug Allergy [facility] (1 source) atorvastatin Drug Allergy [facility] (1 source) Bacitracin Drug Allergy [facility] (1 source) Clavulanate Drug Allergy [facility] (1 source) Fenofibrate Drug Allergy [facility] (1 source) Flurbiprofen Drug Allergy [facility] (1 source) Gemfibrozil Drug Allergy [facility] (1 source) glipiZIDE Drug Allergy [facility] (1 source) metroNIDAZOLE Drug Allergy [facility] (1 source) Neomycin Drug Allergy [facility] (1 source) Pravastatin Drug Allergy [facility] (1 source) prednisoLONE Drug Allergy [facility] (1 source) Simvastatin Drug Allergy [facility] (1 source) traMADol Drug Allergy [facility] (1 source) POLYMYXIN B Drug allergy (disorder) [facility] (1 source) 10/04/2022 (+) MRSA SCREEN NARES; Translations: [10/04/2022 (+) MRSA SCREEN NARES] Propensity to adverse reactions (disorder) [facility] Medications Completed/Discontinued Medications Medication Drug [...] disease (1 source) Atherosclerotic heart disease of [place] coronary artery without angina pectoris; Translations: [Atherosclerotic heart disease of [place] coronary artery without angina pectoris] Onset: 10-05-2022 [...] 08-14-2022 Episodic Other aftercare (1 source) extermination supervisor (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) use of insulin; Translations: [longterm (current) use of insulin] Onset: 10-05-2022 Episodic Other aftercare (1 source) extermination supervisor (current) use of anticoagulants; Translations: [longterm (current) use of anticoagulants] Onset: 10-05-2022 Episodic Other aftercare (1 source) Other detention (current) drug therapy; Translations: [Other petroleum terminal plant operator (current) drug therapy] Onset: 08-14-2022 Episodic Other [...] Provider Facility Start: 03-24-2023 ambulatory HINA HUTTON [facility] Start: 10-05-2022 End: 10-08-2022 Evaluation and management of inpatient HINA HUTTON [facility] Start: 08-14-2022 End: 03-23-2023 ambulatory HINA HUTTON [facility] Start: 12-13-2021 Telephone encounter Kelsy aguayo MD Work Phone: Internal Medicine [place] Procedures Date Procedure Procedure Detail Performing Clinician Start: 02-02-2018 Adult depression screening assessment Kelsy Mensah MD Work Phone: Plan of Treatment Date Care Activity Detail Author Start: 07-24-2022 SERUM CREATININE SERUM CREATININE [facility] Start: 05-30-2022 BP CONTROLLED (<130/80) BP CONTROLLE D (<130/80) [facility] Start: 04-23-2022 ANNUAL PCP TEAM DIRECTOR PATIENT ACCOUNTING YANA DISEASE VISIT ANNUAL PCP TEAM CHRONIC DISEASE VISIT [facility] Start: 11-22-2021 Influenza vaccination C [facility] Start: 10-21-2021 Hemoglobin A1c/Hemoglobin.total in Blood HBA1C [facility] Start: 09-29-2021 3 comp foot exam completed DIABETIC FOOT EXAM [facility] Start: 08-02-2021 HEMOGLOBIN/HEMATOCRIT HEMOGLOBIN/HEM ATOCRIT [facility] Start: 08-02-2021 Hepatitis B surface antibody level LDL CHOLESTEROL [facility] Start: 03-24-2021 ADVANCE DIRECTIVE DISCUSSION ADVANCE DIRECTIVE DISCUSSION [facility] Start: 03-24-2021 DEPRESSION ASSESSMENT DEPRESSION ASS ESSMENT [facility] Start: 10-13-2019 Hepatitis C antibody , confirmatory test DILATED RETINAL EXAM [facility] Start: 02-02-2019 Adult depression scr eening assessment DEPRESSION SCREENING [facility] Start: 05-11-2018 Urine microalbumin profile DTAP,TDAP ,TD (3 - Tdap) [facility] Start: 2005 BONE DENSITY BONE DENSITY [facility] Start: 1990 SHINGRIX VACCINE (1 of 2) RAMOS GRIX VACCINE (1 of 2) [facility] Start: 1945 COVID-19 VACCINE (#1) COVID-19 VACCI NE (#1) [facility] Start: 06-20-1941 COVID-19 VACCINE (#1) COVID-19 VACCI NE (#1) [facility] Immunizations Immunization Date Immunization Notes Care Provider Muna paiz 02-02-2020 influenza, seasonal, injectable, preservative free Kelsy Mensah MD Work Phone: [facility] 01-20-2019 influenza, high dose seasonal, preservative-free Kelsy Mensah MD Work Phone: [facility] Work Phone: 02-18-2018 influenza, high dose seasonal, preservative-free Kelsy Mensah MD Work Phone: [facility] Work Phone: 12-26-2016 influenza, seasonal, injectable, preservative free Kelsy Mensah MD Work Phone: [facility] 05-20-2016 pneumococcal conjuga te vaccine, 13 valent Kelsy Mensah MD Work Phone: [facility] Work Phone: 01-15-2016 influenza, high dose seasonal, preservative-free Kelsy Mensah MD Work Phone: [facility] 01-06-2015 influenza, high dose seasonal, preservative-free Kelsy Mensah MD Work Phone: [facility] 01-18-2014 influenza, seasonal, injectable, preservative free Kelsy Mensah MD Work Phone: [facility] 01-10-2014 influenza, seasonal, injectable Kelsy Mensah MD Work Phone: [facility] 01-05-2014 influenza, seasonal, injectable Kelsy Mensah MD Work Phone: [facility] 01-20-2013 influenza virus vacc ine, unspecified formulation Kelsy Mensah MD Work Phone: [facility] 01-09-2010 influenza virus vacc ine, whole virus Kelsy Mensah MD Work Phone: [facility] 01-17-2009 influenza virus vacc ine, whole virus Kelsy Mensah MD Work Phone: [facility] 11-22-2008 pneumococcal polysaccharide vaccine, 23 valent Kelsy Mensah MD Work Phone: [facility] 05-11-2008 diphtheria and tetan us toxoids, adsorbed for pediatric use Kelsy Mensah MD Work Phone: [facility] Work Phone: 02-09-2008 influenza virus vacc ine, whole virus Kelsy Mensah MD Work Phone: [facility] 01-26-2007 influenza virus vacc ine, unspecified formulation Kelsy Mensah MD Work Phone: [facility] Work Phone: 01-26-2007 pneumococcal polysaccharide vaccine, 23 valent Kelsy Mensah MD Work Phone: [facility] Work Phone: 03-04-2001 pneumococcal polysaccharide vaccine, 23 valent Kelsy Mensah MD Work Phone: [facility] Work Phone: 11-02-1990 diphtheria and tetan us toxoids, adsorbed for pediatric use Kelsy Mensah MD Work Phone: [facility] Work Phone: Payers Date Payer Category Payer Unknown [id number] 1940 Unknown [id number] 1940 Unknown [id number] Unknown 75 Social History Date Type Detail Facility Start: 02-15-2013 Tobacco smoking stat us TXIS Never smoked tobacco [facility] Start: 04-23-2021 End: 05-30-2021 Alcohol intake Current non-drinker of alcohol (finding) [facility] Start: 1940 Sex Assigned At Not on file [facility] Start: 07-13-2021 End: 07-23-2021 Exposure to SARS-CoV-2 (event) Unable to assess [facility] Work Phone: Start: 02-15-2013 Tobacco use and exposure Smokeless tobacco non-user [facility] Clinical Notes 02-28-2014 to 10-09-2022 Telephone Encounter - Gisella Belcher RN - 12/17/2021 11:21 AM EDTTelephone Encounter - Kiki Young CONSTRUCTION PLANT OPERATOR - 12/14/2021 12:50 PM EDTTelephone Encounter - Ariadne Harrison CONSTRUCTION PLANT OPERATOR - 09/21/2021 2:53 PM EDT Note Date [...] This test was performed at: [facility] [place], [address] [place] [address], [facility] , [facility] ([place]) 10-09-2022 Note . MICRO - Microbiology PROCEDURE: [...] This test was performed at: [facility] [place], [address] [place] [address], [id number] , [facility] ([place]) 10-08-2022 Note [facility] PROGRESS NOTE NAME ACCOUNT SEX AGE ADMIT DISCHARGE PT MED. RECORD# NUMBER DATE DATE TYPE DARREN SANDOVAL [id number] F 81 10/04/22 2 J [id number] ROOM: [facility] DATE OF : 1940 DICTATING PHYSICIAN: Jerod [...] for Dr. Patterson 10/06/22 10:47 JOB #: [id number] Transcribed By: dimitry 10/06/22 11:25 Electronically signed by: E-Sign: JEROD PATTERSON MD 10/08/22 14:48 Page 2 of 2 DARREN SANDOVAL Progress Note [facility] 10-08-2022 Note [facility] HISTORY & PHYSICAL NAME ACCOUNT SEX AGE ADMIT DISCHARGE PT MED. RECORD# NUMBER DATE DATE TYPE DARREN SANODVAL [id number] F 81 10/04/22 2 [id number] ROOM: [facility] DATE OF : 40 DICTATING PHYSICIAN: Jerod Patterson HISTORY OF PRESENT ILLNESS: This is an 81-year-old female with multiple chronic medical problems, including uncontrolled diabetes mellitus type 2 with insulin regimen, chronic kidney disease, coronary artery disease, and stroke. She was at [employer], and she stated that her right middle [...] and heart disease. SOCIAL HISTORY: She is Gnosticist. She is currently at [employer]. She does not smoke nor drink alcohol. [...] erythematous and warm. (more content not included)... [facility] 12-17-2021 Miscellaneous Notes Xochilt returns call [...] Kiki Young LPN documented in this encounter [facility] 11-07-2021 Miscellaneous Notes Bridgett @ [facility] calling to say [facility] did not receive faxed orders of CBC, HgbA1c and CMP. Re-faxed to . She will notify patient. Kiki Blum RN documented in this encounter [facility] 09-26-2021 Miscellaneous Notes Called and let Kike- [facility] know provider put Lantus through for Pt. Kike, [facility], reports patient has 1 1/2 pen left. Asking pcp to send lantus Rx to [facility]. Reports patient is taking 10 units if fasting is less than 150 and 16 units if fasting is greater than 150. Pended Rx. Kiley, daughter called, she has questions, please call her at: [phone]. Per daughter she is on her last [...] Reba Young Pss documented in this encounter [facility] 09-21-2021 Miscellaneous Notes Left message for Kike at [facility]. Ariadne Harrison LPN Would appreciate the magnesium lab Kike- [facility] called and is notified of providers message [...] she comes around here Kike at [facility] contacted to verify vitemains that patient is taking. Per Kike, patient has told her that she is taking the following vitamins once daily: Magnesium 500mg Vit D3 1000 units Fish Oil 500mg Vit C 500mg Multivitamin Please contact Kike at [phone] to let her know if patient should continue to take these vitamins with current renal impairment. Thank you. I missed the fact that she is on hospice Keti, Thanks for the input Can you ask kike to give us a list of all of patients medications? I am not sure of her medication list including her vitamins. Thank you. Kike with [facility] calling and has been updated on Dr. [...] at this time. Please call Kike at [phone]. Thank you. Her sugars are high over [...] 08-16 telephone encounter). documented in this encounter [facility] 09-20-2021 Miscellaneous Notes Phoned Kike, and given provider's message below with verbalized understanding. I think what the patient is doing with insulin is good., To cont the same, At this time I dont think there is need for a clinical pharmacist Kike @ [facility] calling to let PCP know patient [...] to schedule through daughter Kaitlyn, [place] # [phone]. Kiki Blum RN documented in this encounter [facility] 09-06-2021 Miscellaneous Notes Noted below. Hospice nurse has been in contact with PCP office regarding medications and below message. Please see other encounter from 09/04. Santiago JimenezD, BCACP Primary Care Clinical Pharmacist [facility] Spoke with pt. regarding New referral. Pt. declined to schedule apt at this time. Pt. stated she is receiving hospice care and that the nurse has taken away all her medication. Pt. only taking her vitamins. Pt. can be reached with questions at [phone] . documented in this encounter [facility] 08-22-2021 Miscellaneous Notes Bridgett notified. I would like for to have a log of blood sugar level, checked 4 times a day, Fasting, and 2 hours after bf, Lunch and dinner and then I can tell what she should do for lantus dosing Bridgett from [facility] calling and asking about patient's Lantus [...] only on comfort medications at this time. Pearl Glue Operator had taken her off of all her blood pressure medications. Please review and advise, and give Bridgett a call back, Laura Lizarraga RN documented in this encounter [facility] 08-09-2021 Miscellaneous Notes Awaiting response from patient or Hospice. Does patient need a referral or anything from us? Thank you Mariposa Carroll APRN.TOOTIE Per a Wait List Message, patient is going to Hospice. Please contact patient to see if they need a referral/records transfer to facilitate this. Upcoming appointments cancelled. Laura Mckoy documented in this encounter [facility] 04-25-2021 Miscellaneous Notes Patient's daughter returned [...] or persisting symptoms. Thank you Mariposa Carroll APRN.CHILD PROTECTIVE INVESTIGATOR documented in this encounter [facility] documented as of this encounter (statuses as of 08/15/2021) [facility] History of Past illness Narrative* Problem [...] of this encounter (statuses as of 08/22/2021) [facility] History of Past illness Narrative* Problem [...] of this encounter (statuses as of 09/06/2021) [facility] History of Past illness Narrative* Problem [...] of this encounter (statuses as of 09/20/2021) [facility] History of Past illness Narrative* Problem [...] of this encounter (statuses as of 09/26/2021) [facility] History of Past illness Narrative* Problem [...] of this encounter (statuses as of 11/07/2021) [facility] History of Past illness Narrative* Problem [...] of this encounter (statuses as of 12/19/2021) [facility] History of Past illness Narrative* Problem [...] of this encounter (statuses as of 01/30/2022) [facility] History of Past illness Narrative* Problem [...] of this encounter (statuses as of 02/05/2022) [facility] Diagnosis Type II diabetes mellitus with neurological manifestations (HCC) Type II or unspecified type diabetes mellitus with neurological manifestations, not stated as uncontrolled documented in this encounter [facility]* Diagnosis Controlled type 2 diabetes mellitus without complication, without long-term current use of insulin (HCC)- Primary Hypomagnesemia Disorders of magnesium metabolism documented in this encounter [facility] Advance Directives No Advanced Directives Records FoundDocuments on File Type Date Recorded Patient Customer Sales Distributor Expl anation Advance Directive(s) Summary Purpose Family [...] or prosecute any alcohol or drug abuse patient.[facility] the event this information is protected by the Federal Confidentiality of Alcohol and Drug Abuse Patient Records regulations: The Federal rules restrict any use of the information to criminally investigate or prosecute any alcohol or drug abuse patient.[facility] the event this information is protected by the Federal Confidentiality of Alcohol and Drug Abuse Patient Records regulations: The Federal rules restrict any use of the information to criminally investigate or prosecute any alcohol or drug abuse patient.[facility] the event this information is protected by the Federal Confidentiality of Alcohol and Drug Abuse Patient Records regulations: The Federal rules restrict any use of the information to criminally investigate or prosecute any alcohol or drug abuse patient.[facility] the event this information is protected by the Federal Confidentiality of Alcohol and Drug Abuse Patient Records regulations: The Federal rules restrict any use of the information to criminally investigate or prosecute any alcohol or drug abuse patient.[facility] the event this information is protected by the Federal Confidentiality of Alcohol and Drug Abuse Patient Records regulations: The Federal rules restrict any use of the information to criminally investigate or prosecute any alcohol or drug abuse patient.[facility] the event this information is protected by the Federal Confidentiality of Alcohol and Drug Abuse Patient Records regulations: The Federal rules restrict any use of the information to criminally investigate or prosecute any alcohol or drug abuse patient.[facility] the event this information is protected by the Federal Confidentiality of Alcohol and Drug Abuse Patient Records regulations: The Federal rules restrict any use of the information to criminally investigate or prosecute any alcohol or drug abuse patient.[facility] the event this information is protected by the Federal Confidentiality of Alcohol and Drug Abuse Patient Records regulations: The Federal rules restrict any use of the information to criminally investigate or prosecute any alcohol or drug abuse patient.[facility] Reason for Visit (unrecogniz ed section and content) Reason Comments Patient Update from Hospice Reason Comments New Pharmacy Med-Review Reason Comments Prescription Refills Reason Comments Faxed lab orders Reason Comments [facility] Reason Comments BS readings Medication Update Reason Comments Results Care Teams (unrecognized sec tion and content) Oracle Applications Developer Relationship Specialty Start Date End Date Kelsy Mensah MD [address] [place] [address] PCP - General Internal Medicine 05/24/16 Rashid Ortiz [address] [place] [address] Physician Cardiology 09/15/15 Oracle Applications Developer Relationship Specialty Start Date End Date Kelsy Mensah MD [address] [place] [address] PCP - General Internal Medicine 05/24/16 Rashid Ortiz [address] [place] [address] Physician Cardiology 09/15/15 Oracle Applications Developer Relationship Specialty Start Date End Date Kelsy Mensah MD [address] [place] [address] PCP - General Internal Medicine 05/24/16 Rashid Ortiz [address] [place] [address] Physician Cardiology 09/15/15 Oracle Applications Developer Relationship Specialty Start Date End Date Kelsy Mensah MD [address] [place] [address] PCP - General Internal Medicine 05/24/16 Rashid Ortiz [address] [place] [address] Physician Cardiology 09/15/15 Oracle Applications Developer Relationship Specialty Start Date End Date Kelsy Mensah MD [address] [place] [address] PCP - General Internal Medicine 05/24/16 Rashid Ortiz [address] [place] [address] Physician Cardiology 09/15/15 Oracle Applications Developer Relationship Specialty Start Date End Date Kelsy Mensah MD [address] [place] [address] PCP - General Internal Medicine 05/24/16 Rashid Ortiz [address] [place] [address] [address] [place] [address] Physician Cardiology 09/15/15 INFORMATION SOURCE (unrecogn ized section and content) DATE CREATED AUTHOR AUTHOR'S ORGANIZ ATION 12/01/2022 [facility] DATE CREATED AUTHOR AUTHOR'S ORGANIZ ATION 03/25/2023 [facility] FOR RECORDS PERTAINING TO PATIENTS WHO ARE [...] BE BASED ON THE PRIMARY CLINICAL RECORDS. [employer] provides no warranty or guarantee of the accuracy or completeness of information in this document.
[2023-05-17] MEDS: 0.9% Normal Saline (1000mL) 1,000 ML 100 ML IV (06:55)
[2023-05-17] MEDS: Insulin Lispro 100 UNIT/ML INSULN.PEN SC ×2 (06:59→11:15)
[2023-05-17] MEDS: Piperacil/Tazobactam 3.375 GM in 0.9% Normal Saline (50mL MB+) 50 ML IV ×2 (07:05→13:53)
[2023-05-17] MEDS: Vancomycin HCl 2,000 MG in 0.9% Normal Saline (500mL Bag) 500 ML 250 MG IV (07:58)
[2023-05-17] MEDS: 0.9% Saline Lock 10 ML Syringe IV (07:58)
[2023-05-17 08:14] LABS: Bedside Glucose 255 mg/dL (74-106)
[2023-05-17] MEDS: Carbamide Peroxide 15 ML Bottle 4 DRP OTIC (09:18)
[2023-05-17] MEDS: Glucerna Shake 120 ML LIQUID PO ×2 (09:18→11:15)
[2023-05-17] MEDS: Clopidogrel Bisulfate 75 MG Tablet PO (09:18)
[2023-05-17] MEDS: amLODIPine 5 MG Tablet PO (09:18)
--- NOTE | 2023-05-17 09:21 | PCM.RX.CS ---
Consult Antibiotic Management Pharmacy has been consulted to manage selected antibiotic: Vancomycin Type of Intervention Type of Consult: New start Labs Labs: Sodium 135 mmol/L (136-145) L 05/17/23 04:58 Potassium 5.3 mmol/L (3.5-5.1) H 05/17/23 04:58 Chloride 111 mmol/L (98-107) H 05/17/23 04:58 Carbon Dioxide 18.0 mmol/L (21.0-32.0) L 05/17/23 04:58 Anion Gap 6 (5-15) 05/17/23 04:58 BUN 42 mg/dL (7-18) H 05/17/23 04:58 Creatinine 2.16 mg/dL (0.55-1.02) H 05/17/23 04:58 Est GFR (MDRD) Af Amer 28 mL/min (>60) L 05/17/23 04:58 Est GFR (MDRD) Non-Af 23 mL/min (>60) L 05/17/23 04:58 BUN/Creatinine Ratio 19.4 RATIO (10-20) 05/17/23 04:58 Glucose 299 mg/dL (74-106) H 05/17/23 04:58 Pharmacy Plan for Drug Dosing Pharmacy Plan for Drug Dosing: NEW START IV VANCOMYCIN Consulting Physician: Lo Indication: cellulitis Goal Trough: 15-20 mg/dl SrCr: 2.16 mg/dL CrCl: 20.9 ml/min Comments: received 2000mg loading dose 05/17/23 @ 0758 Vancomycin Dose: Hesitant to start scheduled dose at the CrCl is only 20 and the patient is 82. Will order a random level in 24 hours and dose by level at this time. Pending Level: 05/18/23 @ 0800 - random Pharmacy Service will continue to monitor and adjust dosing as required.
[2023-05-17 10:37] LABS: International Normalized Ratio 1.3; Prothrombin Time (Protime)PT. 16.1 SECONDS (11.7-14.9)
[2023-05-17 10:38] LABS: Partial Thromboplast Time 40.6 Seconds (24.1-36.2)
[2023-05-17] MEDS: HEPARIN/D5w 25,000 UNITS 25,000 UNITS/250 ML IV.SOLN. 12 UNITS CONT INF (10:56)
[2023-05-17 11:39] LABS: Bedside Glucose 302 mg/dL (74-106)
--- NOTE | 2023-05-17 12:18 | CONS.ORTHO ---
HPI Consult Data Date of Consult: 05/17/23 HPI Narrative HPI Narrative: DARERN SANDOVAL, is a 82 F who presents to be history of right ring finger swelling and redness. This was treated on an outpatient basis with oral antibiotics. She however continued to worsen and presented to the ED yesterday. I was paged last night to discuss her care. I had requested hand consultation which was performed through [facility] telehealth. Decision was made to transfer the patient to tertiary care. However since bed availability was not confirmed, patient has been admitted here in [facility] waiting for the transfer. I evaluated the patient today. She says that she has significant numbness in all her fingers and toes due to the diabetic neuropathy that she has had for many decades. Her numbness is so severe that even on the left ring finger she touched a hot object and developed a blister recently. Her right ring finger is red and swollen for the last 2 weeks and is only worsened despite the oral antibiotics. She denies any significant trauma. She has rheumatoid arthritis and has developed multiple small joint involvement with deformities. She is denies that over the last 2 weeks she has been unable to flex her right ring finger at the interphalangeal and MCP joints. She denies any fevers. [facility] Medical History (Updated 05/17/23 @ 12:[address] Francis Cruz MD) Arthritis Breast lump in female CAD (coronary artery disease) Cataracts, bilateral Chronic atrial fibrillation CKD (chronic kidney disease), stage III Colovesical fistula Diabetes mellitus with diabetic polyneuropathy Diverticulosis Heart failure High blood pressure High cholesterol History of diverticulitis History of heart attack HLD (hyperlipidemia) Ileostomy in place Kidney stones Loss of hearing Non-smoker Open wound Osteoarthritis Osteomyelitis of second toe of left foot Peripheral arterial disease Rheumatoid arthritis Type 2 diabetes mellitus with diabetic polyneuropathy 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 Ulcer of right foot with necrosis of bone Ulcer of right lower extremity with muscle involvement without evidence of necrosis Unspecified protein-calorie malnutrition Wears glasses Home Medications amlodipine 5 mg tablet 5 mg PO DAILY #0 tabs 08/13/22 [Rx Last Taken Unknown] apixaban 5 mg tablet 5 mg PO BID #30 tabs 08/13/22 [Rx Last Taken Unknown] insulin glargine-yfgn 100 unit/mL (3 mL) subcutaneous pen 26 unit (0.26 mL) subcut QPM #0 mL 12/04/23 [Rx Last Taken Unknown] loperamide 2 mg tablet 2 mg PO Q3H PRN loose stool 03/20/23 [History Last Taken Unknown] clopidogrel 75 mg tablet (Plavix) 75 mg PO DAILY #30 tabs 03/26/23 [Rx Last Taken Unknown] acetaminophen 325 mg tablet 650 mg PO Q6H PRN Pain 1-10 Or Fever>100.7 05/16/23 [History Last Taken Unknown] aluminum-mag hydroxide-simethicone 200 mg-200 mg-20 mg/5 mL oral susp (Advanced Antacid-Antigas) 30 ml PO Q6H PRN indigestion 05/16/23 [History Last Taken Unknown] carbamide peroxide 6.5 % ear drops (Ear Drops (carbamide peroxide)) 4 drp otic (ear) BID CERUMEN IMPACTION 05/16/23 [History Last Taken Unknown] dextromethorphan-guaifenesin 10 mg-100 mg/5 mL oral liquid (Tussin DM) 10 ml PO Q4H PRN cough 05/16/23 [History Last Taken Unknown] dextrose 15 gram/33 gram oral gel packet (Dex4 Glucose) 15 g PO PRN BLOOD SUGAR <70 05/16/23 [History Last Taken Unknown] insulin lispro 100 unit/mL subcutaneous pen (Humalog KwikPen (U-100) Insulin) See Protocol subcut ACHS 05/16/23 [History Last Taken Unknown] lisinopril 10 mg tablet 10 mg PO DAILY 05/16/23 [History Last Taken Unknown] magnesium hydroxide 400 mg/5 mL oral suspension (Milk of Magnesia) 30 ml PO DAILY PRN constipation 05/16/23 [History Last Taken Unknown] pyrithione zinc 1 % shampoo (Dandruff Shampoo (pyrithione zinc)) 1 applic topical PRN DRY ITCHY SCALP 05/16/23 [History Last Taken Unknown] sodium phosphates 19 gram-7 gram/118 mL enema (Mxbon-Ye-Uma Enema) 118 ml OR DAILY PRN constipation 05/16/23 [History Last Taken Unknown] sulfamethoxazole 800 mg-trimethoprim 160 mg tablet 1 tab PO BID RIGHT 4TH DIGIT INFECTION 05/16/23 [History Last Taken Unknown] Allergy/AdvReac Type Severity Reaction Status Date / Time adhesive Allergy Unknown Verified 05/16/23 12:16 bacitracin zinc Allergy Rash Verified 05/16/23 12:16 [From Neosporin ([id number])] metronidazole Allergy ALLERGY Verified 05/16/23 12:16 neomycin sulfate Allergy Rash Verified 05/16/23 12:16 [From Neosporin ([id number])] polymyxin B Allergy Rash Verified 05/16/23 12:16 [From Neosporin ([id number])] prednisolone acetate, Allergy ALLERGY Verified 05/16/23 12:16 micronized simvastatin Allergy ALLERGY Verified 05/16/23 12:16 tramadol [From Ultram] Allergy ALLERGY Verified 05/16/23 12:16 amoxicillin [From Augmentin] AdvReac Nausea/Vom/ Verified 05/16/23 12:16 Diarrhea atorvastatin calcium AdvReac Pain in Verified 05/16/23 12:16 [From Lipitor] joints clavulanic acid AdvReac Nausea/Vom/ Verified 03/20/23 15:10 [From Augmentin] Diarrhea fenofibrate nanocrystallized AdvReac Upset Verified 05/16/23 12:16 [From Tricor] Stomach flurbiprofen AdvReac Upset Verified 05/16/23 12:16 Stomach gemfibrozil AdvReac Upset Verified 05/16/23 12:16 Stomach glipizide [From Glucotrol] AdvReac Upset Verified 05/16/23 12:16 Stomach pravastatin AdvReac Pain in Verified 05/16/23 12:16 joints Family History Mother Diabetes Father Hypertension CVA (cerebral vascular accident) Brother Lung cancer Sister Breast cancer COPD (chronic obstructive pulmonary disease) Other Peripheral arterial disease Surgical History History of appendectomy History of cholecystectomy History of heart bypass surgery History of knee replacement History of partial colectomy (~05/2021) Hx of colonoscopy S/P CABG (coronary artery bypass graft) S/P hysterectomy Social History household members: family housing: custodial Smoking Status: Never smoker alcohol intake: current alcohol intake frequency: other substance use type: does not use additional social history: USES [employer] Vital Signs Vital Signs Vital Signs: 05/16/23 16:56 05/16/23 17:00 05/16/23 18:00 Temperature 98.2 F 98 F Temperature Source Temporal Temporal Pulse Rate 68 74 78 Respiratory Rate 16 16 16 Respiratory Effort Respiratory Depth Respiratory Pattern Blood Pressure 153/77 H 141/91 H 177/120 H Blood Pressure Mean 102 107 139 Blood Pressure Source Blood Pressure Position Blood Pressure Location Pulse Ox 98 98 Oxygen Delivery Method Room Air 05/16/23 18:30 05/16/23 21:32 05/16/23 21:32 Temperature 97.6 F L 98 F Temperature Source Temporal Temporal Pulse Rate 79 98 98 Respiratory Rate 14 19 H 19 H Respiratory Effort Respiratory Depth Respiratory Pattern Blood Pressure 165/106 H 166/75 H 166/75 H Blood Pressure Mean 125 105 105 Blood Pressure Source Blood Pressure Position Blood Pressure Location Pulse Ox 100 Oxygen Delivery Method 05/16/23 23:15 05/16/23 23:15 05/17/23 00:22 Temperature 98 F 98 F Temperature Source Temporal Temporal Pulse Rate 99 99 94 Respiratory Rate 27 H 27 H 21 H Respiratory Effort Respiratory Depth Respiratory Pattern Blood Pressure 166/83 H 166/83 H 168/81 H Blood Pressure Mean 110 110 110 Blood Pressure Source Blood Pressure Position Blood Pressure Location Pulse Ox 98 98 Oxygen Delivery Method Room Air 05/17/23 01:16 05/17/23 01:00 05/17/23 01:00 Temperature 98.4 F 98.4 F Temperature Source Temporal Oral Pulse Rate 107 H 102 H 102 H Respiratory Rate 20 H 18 18 Respiratory Effort Respiratory Depth Respiratory Pattern Normal Blood Pressure 155/90 H 155/90 H Blood Pressure Mean 111 111 Blood Pressure Source Blood Pressure Position Blood Pressure Location Pulse Ox 99 99 Oxygen Delivery Method Room Air Room Air 05/17/23 02:00 05/17/23 03:00 05/17/23 03:00 Temperature 98.2 F 98.2 F 98.2 F Temperature Source Temporal Temporal Temporal Pulse Rate 101 H 94 104 H Respiratory Rate 15 16 16 Respiratory Effort Respiratory Depth Respiratory Pattern Blood Pressure 148/62 H 150/85 H 150/85 H Blood Pressure Mean 90 106 106 Blood Pressure Source Blood Pressure Position Blood Pressure Location Pulse Ox 100 99 99 Oxygen Delivery Method Room Air Room Air Room Air 05/17/23 05:55 05/17/23 05:24 05/17/23 06:05 Temperature 98.1 F 98 F 96.6 F L Temperature Source Temporal Pulse Rate 98 79 95 Respiratory Rate 16 18 16 Respiratory Effort Respiratory Depth Respiratory Pattern Blood Pressure 134/67 H 134/79 H 157/80 H Blood Pressure Mean 89 97 105 Blood Pressure Source Monitor Blood Pressure Position Supine Blood Pressure Location Left Arm Pulse Ox 96 96 100 Oxygen Delivery Method Room Air 05/17/23 06:30 05/17/23 08:59 05/17/23 09:10 Temperature 98.5 F Temperature Source Oral Pulse Rate 96 Respiratory Rate 16 Respiratory Effort Normal Non-Labored Normal Non-Labored Respiratory Depth Normal Normal Respiratory Pattern Normal Normal Blood Pressure 149/58 H Blood Pressure Mean 88 Blood Pressure Source Monitor Blood Pressure Position Semi-Fowlers Blood Pressure Location Right Arm Pulse Ox 97 Oxygen Delivery Method Room Air Room Air Room Air Weight Weight: 181 lb 14.102 oz Body Mass Index (BMI) 31.2 Physical Exam Narrative Examination of the right hand shows swelling throughout the right ring finger up to the MCP joint. There is redness and warmth that tracks both dorsally and volar. Dorsally it goes up to the distal third of the metacarpal level. On the volar aspect as well there is erythema that goes into the palm somewhat proximal to the area of the A1 ashia. Deep palpation in the palmar spaces that does not seem to show tenderness however this may be difficult to assess because of the patient's severe numbness in the entire hand. Passive flexion of the MCP and PIP joints are possible. DIP joint cannot be palpated or moved due to the swelling. There is fluctuant swelling in the distal aspect along with necrotic eschar at the fingertip. A small skin break over the dorsal aspect of the distal tip is noted. No purulence swelling expressed, however patient says that some purulence was noticed over the last 2 weeks. She has had multiple toe and partial finger amputations in the past. Lab / Micro Data 05/16/23 15:45 05/17/23 04:58 Labs: Laboratory Results - last 24 hr 05/16/23 15:45: WBC 12.0 H, RBC 4.32, Hgb 13.0, Hct 39.8, MCV 92.1, MCH 30.1, MCHC 32.7, RDW Std Deviation 45.8 H, RDW Coeff of Monique 13.4, Plt Count 266, MPV 10.2, Immature Gran % (Auto) 2.700 H, Neut % (Auto) 65.3, Lymph % (Auto) 17.6 L, [place] % (Auto) 11.1 H, Eos % (Auto) 2.2, Baso % (Auto) 1.1 H, Absolute Neuts (auto) 7.8 H, Absolute Lymphs (auto) 2.11, Nucleated RBC % 0, Sodium 133 L, Potassium 6.3 H*, Chloride 110 H, Carbon Dioxide 16.0 L, Anion Gap 7, BUN 56 H, Creatinine 2.73 H, Estim Creat Clear Calc 16.68, Est GFR (MDRD) Af Amer 21 L, Est GFR (MDRD) Non-Af 18 L, BUN/Creatinine Ratio 20.5 H, Glucose 197 H, Lactic Acid 1.1, Calcium 9.3 05/16/23 16:54: Potassium Cancelled 05/16/23 17:24: Potassium 5.7 H 05/16/23 23:24: Potassium 5.6 H 05/17/23 01:38: Potassium 5.1 05/17/23 04:58: ESR 62 H, Sodium 135 L, Potassium 5.3 H, Chloride 111 H, Carbon Dioxide 18.0 L, Anion Gap 6, BUN 42 H, Creatinine 2.16 H, Estim Creat Clear Calc 21.08, Est GFR (MDRD) Af Amer 28 L, Est GFR (MDRD) Non-Af 23 L, BUN/Creatinine Ratio 19.4, Glucose 299 H, Calcium 9.8, C-React Prot Ext Range 38.30 H 05/17/23 06:47: POC Glucose 255 H 05/17/23 10:18: PT 16.1 H, INR 1.3, APTT 40.6 H 05/17/23 11:13: POC Glucose 302 H ABG Data ABG results: ABG 05/17/23 01:25 Specimen Type PANCHO Sample Site Not entered VBG pH 7.31 L VBG pO2 68 H VBG HCO3 15 L VBG Total CO2 16 L VBG O2 Sat (Calc) 92 H VBG Base Excess -12 L POC Mix VBG pCO2 Pt Tmp 29.1 L O2 Delivery Device Room Air Imaging Radiology Impression Finger X-Ray 05/16/23 16:05 IMPRESSION: Hyperflexion angulation of the fourth distal phalanx without acute fracture or destructive cortical lesion. Electronically Signed: Ang Lugo MD at 17:06 EST Reading Location ID and State: Replaced by [facility] / [place] Tel , Service support , Assessment & Plan Assessment/Plan (1) Cellulitis of right ring finger: (2) Rheumatoid arthritis: QUALIFIERS: Rheumatoid arthritis location: hand Rheumatoid factor presence: unspecified presence Laterality: right Qualified Code(s): M06.9 - Rheumatoid arthritis, unspecified (3) Neuropathy, diabetic: QUALIFIERS: Diabetes mellitus type: type 2 Diabetes mellitus complication detail: diabetic polyneuropathy Qualified Code(s): E11.42 - Type 2 diabetes mellitus with diabetic polyneuropathy PLAN: Plan I reviewed the x-rays done in the ER last night. No evidence of osteomyelitis noticed on these x-rays. There is a mallet finger, likely chronic deformity of her ring finger associated with her rheumatoid arthritis. Patient has severe diabetic neuropathy and is unable to feel tenderness in the area of the erythema. The erythema encompasses circumferentially throughout the ring finger and is also started to go onto the palmar aspect. Flexor tenosynovitis and deep palmar space infection cannot be ruled out because of her neuropathy. Distal ischemic eschar may suggest associated diabetic vasculopathy. I discussed in detail with the patient about her infection. I am concerned that Proximal spread of infection into the palmar space is likely. This will need prompt attention and evaluation by a hand surgeon at a tertiary center. This will require debridement surgically by hand surgeon. Possibility of need for amputation was also discussed. Urgent transfer to tertiary care is recommended. I reached out to Dr. Leiva to discuss these findings and the urgent need for transfer. Charges/Coding Visit Charges Inpatient E&M: 21966 Init Hosp L3
--- NOTE | 2023-05-17 13:04 | PCM.PN.HOSP ---
Reason for Visit Reason for Visit: Diagnoses Type 2 diabetes mellitus with diabetic polyneuropathy (05/16/23) Cellulitis of right finger (05/16/23) Cellulitis, unspecified (05/16/23) Rheumatoid arthritis, unspecified (05/16/23) Objective Data Objective Data Vital Signs: Vital Signs Temp Pulse Resp BP Pulse Ox O2 Del Method 98.5 F 96 16 149/58 H 97 Room Air 05/17/23 09:10 05/17/23 09:10 05/17/23 09:10 05/17/23 09:10 05/17/23 09:10 05/17/23 09:10 Oxygen Delivery Method Room Air Weight: 82.5 kg Body Mass Index (BMI) 31.2 Intake & Output: Intake and Output for Last 24 Hours 05/15/23 05/16/23 05/17/23 23:59 23:59 23:59 Intake Total 1080 / 1080 1770 / 1770 Output Total 300 / 300 Balance 1080 / 1080 1470 / 1470 Lab / Micro Data 05/16/23 15:45 05/17/23 04:58 Labs: Laboratory Results - last 24 hr 05/16/23 15:45: WBC 12.0 H, RBC 4.32, Hgb 13.0, Hct 39.8, MCV 92.1, MCH 30.1, MCHC 32.7, RDW Std Deviation 45.8 H, RDW Coeff of Monique 13.4, Plt Count 266, MPV 10.2, Immature Gran % (Auto) 2.700 H, Neut % (Auto) 65.3, Lymph % (Auto) 17.6 L, [place] % (Auto) 11.1 H, Eos % (Auto) 2.2, Baso % (Auto) 1.1 H, Absolute Neuts (auto) 7.8 H, Absolute Lymphs (auto) 2.11, Nucleated RBC % 0, Sodium 133 L, Potassium 6.3 H*, Chloride 110 H, Carbon Dioxide 16.0 L, Anion Gap 7, BUN 56 H, Creatinine 2.73 H, Estim Creat Clear Calc 16.68, Est GFR (MDRD) Af Amer 21 L, Est GFR (MDRD) Non-Af 18 L, BUN/Creatinine Ratio 20.5 H, Glucose 197 H, Lactic Acid 1.1, Calcium 9.3 05/16/23 16:54: Potassium Cancelled 05/16/23 17:24: Potassium 5.7 H 05/16/23 23:24: Potassium 5.6 H 05/17/23 01:38: Potassium 5.1 05/17/23 04:58: ESR 62 H, Sodium 135 L, Potassium 5.3 H, Chloride 111 H, Carbon Dioxide 18.0 L, Anion Gap 6, BUN 42 H, Creatinine 2.16 H, Estim Creat Clear Calc 21.08, Est GFR (MDRD) Af Amer 28 L, Est GFR (MDRD) Non-Af 23 L, BUN/Creatinine Ratio 19.4, Glucose 299 H, Calcium 9.8, C-React Prot Ext Range 38.30 H 05/17/23 06:47: POC Glucose 255 H 05/17/23 10:18: PT 16.1 H, INR 1.3, APTT 40.6 H 05/17/23 11:13: POC Glucose 302 H ABG Data ABG results: ABG 05/17/23 01:25 Specimen Type PANCHO Sample Site Not entered VBG pH 7.31 L VBG pO2 68 H VBG HCO3 15 L VBG Total CO2 16 L VBG O2 Sat (Calc) 92 H VBG Base Excess -12 L POC Mix VBG pCO2 Pt Tmp 29.1 L O2 Delivery Device Room Air Radiography Diagnostic Testing: Radiology Impression Finger X-Ray 05/16/23 16:05 IMPRESSION: Hyperflexion angulation of the fourth distal phalanx without acute fracture or destructive cortical lesion. Electronically Signed: Ang Lugo MD at 17:06 EST ,
[2023-05-17] MEDS: Acetaminophen 325 MG Tablet 650 MG PO (14:02)
--- NOTE | 2023-05-17 14:21 | DCINST_ITS ---
Discharge Instructions Diet Discharge Diet: No restrictions Activity Discharge Activity: No Restrictions Weight Bearing Status: Weight bearing as tolerated Follow Up Care Test Results: Test results from this visit will be discussed in further detail at your follow- up appointment, if applicable. Discharge Plan Admission Admit Date/Time: 05/16/23 20:05 Primary Reason for Your Visit: hand infection Attending Provider: Laurent Leiva Primary Care Provider: Юлия Jean-Baptiste Consulting Providers: Francis Cruz; Alondra Blanchard Discharge Orders/Prescriptions Prescriptions: New heparin (porcine) 5,000 unit/mL Solution 0 unit IV UD PRN (Reason: dose adjustment) Qty: 0 0RF oxycodone 5 mg Tablet 2.5 mg PO Q4H PRN PRN (Reason: Pain Score 4-10) Qty: 0 0RF heparin (porcine) in 5 % dex 25,000 unit/250 mL(100 unit/mL) Parenteral Solution 25,000 unit continuous IV infusion .[id number] Qty: 0 0RF Protocol: Heparin Dosage Nomogram: WEIGHT BASED Condition: Patient Weight (kgs): STANDARD PROTOCOL Dose/Route: Initial Heparin Bolus (Vial: 5000 units/ml) Instruction: Initial Heparin Infusion Rate (25,000 units/250ml D5W) Condition: <50.9kg Dose/Route: 3,500 units (0.7 ml) Instruction: 700 units/hr Condition: 51-60.9 kg Dose/Route: 4,000 units (0.8 ml Instruction: 800 units/hr Condition: 61-70.9 kg Dose/Route: 4,500 units (0.9 ml) Instruction: 1000 units/hr Condition: 71-80.9 kg Dose/Route: 5,000 units (1 ml) Instruction: 1100 units/hr Condition: 81-91 kg Dose/Route: 6,000 units (1.2 ml) Instruction: 1200 units/hr Condition: 92-102 kg Dose/Route: 7,500 units (1.5 ml) Instruction: 1400 units/hr Condition: 103-114 kg Dose/Route: 8,000 units (1.6 ml) Instruction: 1500 units/hr Condition: 115-128 kg Dose/Route: 9,500 units (1.9 ml) Instruction: 1600 units/hr Condition: 129-136 kg Dose/Route: 10,500 units (2.1 ml) Instruction: 1700 units/hr Condition: 137-148 kg Dose/Route: 11,000 units (2.2 ml) Instruction: 1800 units/hr Condition: 149-159 kg Dose/Route: 12,000 units (2.4 ml) Instruction: 1900 units/hr Condition: 160-170 kg Dose/Route: 13,000 units (2.6 ml) Instruction: 2000 units/hr Condition: 171-182 kg Dose/Route: 14,000 units (2.8 ml) Instruction: 2100 units/hr Condition: >182 kg Dose/Route: 15,000 units (3 ml) Instruction: 2200 units/hr Protocol Text: HEPARIN DOSAGE ADJUSTMENT NOMOGRAM Heparin Weight Based: STANDARD PROTOCOL aPTT: <41 Bolus w/Heparin: 3,000 units Stop Heparin infusion: 0 Rate change (units/hr): Increase 200 units (+2ml/hr) Repeat aPTT: 6 hours after rate change aPTT: 41-54 Bolus w/Heparin: 1,000 units Stop Heparin infusion: 0 Rate change (units/hr): Increase 100 units (+1ml/hr) Repeat aPTT: 6 hours after rate change aPTT: 55-79 *GOAL* NOTE: aPTT is NOT at goal therapy unless TWO consecutive aPTT levels are w/in goal range -- Bolus w/Heparin: 0 Stop Heparin infusion: 0 Rate change (units/hr): 0 Repeat aPTT: 6 hours after a aPTT results, unless second aPTT in a row in goal and therapy has ran >24 hours, then next morning aPTT: 80-92 Bolus w/Heparin: 0 Stop Heparin infusion: 0 Rate change (units/hr): Decrease 100 units (-1 ml/hr) Repeat aPTT: 6 hours after rate change aPTT: 93-104 Bolus w/Heparin: 0 Stop Heparin infusion: 1 hour Rate change (units/hr): Decrease 200 units (-2 ml/hr) Repeat aPTT: 6 hours after rate change aPTT: >104 Bolus w/Heparin: 0 Stop Heparin infusion: 2 hours Rate change (units/hr): Decrease 300 units (-3 ml/hr) Repeat aPTT: 6 hours after rate change Is an initial BOLUS dose to be given? No Continued loperamide 2 mg tablet 2 mg PO Q3H PRN (Reason: loose stool) Rx Instructions: administer 2 tablets at first loose stool, then administer 1 tablet every 3 hours as needed after each loose stool until symptoms controlled; do not exceed 8 mg per 24 hrs amlodipine 5 mg Tablet 5 mg PO DAILY Qty: 0 0RF insulin glargine-yfgn 100 unit/mL (3 mL) Insulin Pen 26 unit subcut QPM Qty: 0 0RF Ear Drops (carbamide peroxide) 6.5 % drops 4 drp otic (ear) BID Rx Instructions: INSTILL 4 DROPS INTO RIGHT EAR TWICE DAILY NEEDED FOR 4 DAYS, THEN IRRIGATE ON 5TH DATE WITH WARM WATER [id number] Enema 19-7 gram/118 mL enema 118 ml MI DAILY PRN (Reason: constipation) dextrose [Dex4 Glucose] 15 gram/33 gram gel in packet 15 g PO PRN magnesium hydroxide [Milk of Magnesia] 400 mg/5 mL suspension 30 ml PO DAILY PRN (Reason: constipation) alum-mag hydroxide-simeth [Advanced Antacid-Antigas] 200-200-20 mg/5 mL suspension 30 ml PO Q6H PRN (Reason: indigestion) Rx Instructions: NOTIFY PROVIDER IF GIVEN MORE THAN 2 DOSES IN A 24 HOUR PERIOD Dandruff Shampoo (pyrithione) 1 % shampoo 1 applic topical PRN Rx Instructions: APPLY TWICE A WEEK dextromethorphan-guaifenesin [Tussin DM] 10-100 mg/5 mL liquid 10 ml PO Q4H PRN (Reason: cough) Rx Instructions: NOTIFY PROVIDER IF COUGH PERSISTS FOR 48 HOURS acetaminophen 325 mg Tablet 650 mg PO Q6H PRN (Reason: Pain 1-10 Or Fever>100.7) insulin lispro [Humalog KwikPen Insulin] 100 unit/mL Insulin Pen See Protocol subcut ACHS Protocol: 6. Sliding Scale Insulin Custom Condition: mg/dl range Dose/Route: Number of Units Condition: 150-199 Dose/Route: 4 UNITS Condition: 200-249 Dose/Route: 6 UNITS Condition: 250-299 Dose/Route: 8 UNITS Condition: 300-349 Dose/Route: 10 UNITS Condition: 350-400 Dose/Route: 12 UNITS Condition: 400+ Dose/Route: CALL PCP Protocol Text: Custom Sliding Scale Held clopidogrel [Plavix] 75 mg tablet 75 mg PO DAILY Qty: 30 4RF Hold Instructions: Resume on 05/23/23. apixaban 5 mg tablet 5 mg PO BID Qty: 30 0RF Hold Instructions: Resume on 05/23/23. Rx Instructions: start 08/18/2022. lisinopril 10 mg tablet 10 mg PO DAILY Hold Instructions: Resume on 05/23/23. Discontinued sulfamethoxazole-trimethoprim 800-160 mg tablet 1 tab PO BID Rx Instructions: START DATE: 05/12/23 Referrals / Follow Up: Юлия Jean-Baptiste DO [Primary Care Provider] - Disposition Disposition (needs filled in before D/C Order can be placed): [facility]
--- NOTE | 2023-05-17 14:25 | PCM.DC.SUM ---
Providers Date of Admission: 05/16/23 Date of Discharge: 05/17/23 Primary Care Physician: Юлия Jean-Baptiste DO Consultations 05/17/23 06:19 Consult: Orthopedics Routine Consulting Provider: Francis Cruz Reason for Consult: R ring finger cellulitis, necrosis, awaiting Tertiary bed EMERGENT Consult: No MD Notified: Yes Date Notified: 05/17/23 Time Notified: 04:38 Method of Notification: ED Physician Initiated Reason For Visit: FINGER/HAND CELLULITIS/WOUND, ALEISHA, HYPERK Diagnosis Discharge Diagnosis (1) Cellulitis of right ring finger: Status: Acute Code(s): L03.011 - Cellulitis of right finger (2) Rheumatoid arthritis: Status: Chronic Code(s): M06.9 - Rheumatoid arthritis, unspecified Qualifiers: Laterality: right Rheumatoid arthritis location: hand Rheumatoid factor presence: unspecified presence Qualified Code(s): M06.9 - Rheumatoid arthritis, unspecified (3) Neuropathy, diabetic: Status: Acute Code(s): E11.40 - Type 2 diabetes mellitus with diabetic neuropathy, unspecified Qualifiers: Diabetes mellitus complication detail: diabetic polyneuropathy Diabetes mellitus type: type 2 Qualified Code(s): E11.42 - Type 2 diabetes mellitus with diabetic polyneuropathy Medications at Discharge Home Medications amlodipine 5 mg tablet 5 mg PO DAILY #0 tabs 08/13/22 apixaban 5 mg tablet 5 mg PO BID #30 tabs 08/13/22 insulin glargine-yfgn 100 unit/mL (3 mL) subcutaneous pen 26 unit (0.26 mL) subcut QPM #0 mL 02/24/23 loperamide 2 mg tablet 2 mg PO Q3H PRN loose stool 03/20/23 clopidogrel 75 mg tablet (Plavix) 75 mg PO DAILY #30 tabs 03/26/23 acetaminophen 325 mg tablet 650 mg PO Q6H PRN Pain 1-10 Or Fever>100.7 05/16/23 aluminum-mag hydroxide-simethicone 200 mg-200 mg-20 mg/5 mL oral susp (Advanced Antacid-Antigas) 30 ml PO Q6H PRN indigestion 05/16/23 carbamide peroxide 6.5 % ear drops (Ear Drops (carbamide peroxide)) 4 drp otic (ear) BID CERUMEN IMPACTION 05/16/23 dextromethorphan-guaifenesin 10 mg-100 mg/5 mL oral liquid (Tussin DM) 10 ml PO Q4H PRN cough 05/16/23 dextrose 15 gram/33 gram oral gel packet (Dex4 Glucose) 15 g PO PRN BLOOD SUGAR <70 05/16/23 insulin lispro 100 unit/mL subcutaneous pen (Humalog KwikPen (U-100) Insulin) See Protocol subcut ACHS 05/16/23 lisinopril 10 mg tablet 10 mg PO DAILY 05/16/23 magnesium hydroxide 400 mg/5 mL oral suspension (Milk of Magnesia) 30 ml PO DAILY PRN constipation 05/16/23 pyrithione zinc 1 % shampoo (Dandruff Shampoo (pyrithione zinc)) 1 applic topical PRN DRY ITCHY SCALP 05/16/23 sodium phosphates 19 gram-7 gram/118 mL enema (Urprv-Em-Qvl Enema) 118 ml IA DAILY PRN constipation 05/16/23 heparin (porcine) 25,000 unit/250 mL (100 unit/mL) in dextrose 5 % IV 25,000 unit continuous IV infusion .[id number] #0 mL 05/17/23 heparin (porcine) 5,000 unit/mL injection solution 0 unit (0 mL) IV UD PRN dose adjustment #0 mL 05/17/23 oxycodone 5 mg tablet 2.5 mg (1/2 x 5 mg) PO Q4H PRN PRN Pain Score 4-10 #0 tabs 05/17/23 Hospital Course Operations None Procedures - (Finger x-ray) Summary of Care Provided Minutes Spent on Discharge: 35 Hospital Course: Patient is an 82-year-old female who presented to [facility] ED on 05/16/2023 for a right 4th finger infection. 1. Right ring finger cellulitis, history of severe diabetic neuropathy in hands and feet - Orthopedics followed. Xrays on admit showed no evidence of osteomyelitis. However, patient noted to have spread of infection to palmar surface of hand on 05/[address] Cruz noted that flexor tenosynovitis and deep palmar space infection could not be ruled out given her severe neuropathy. Recommendation from Dr. Cruz was for urgent transfer to tertiary facility for surgical debridement by hand surgeon. Patient transferred to [facility] in [place] on afternoon of 05/17. Continued IV vancomycin and IV Zosyn on discharge. 2. ALEISHA - Cr 2.73 on admit, baseline Cr 1.2-1.5. Presumed prerenal in setting of cellulitis as noted above. Cr improved to 2.16 on hospital day 2 (day of discharge) after IV fluids. Continue daily BMP and monitor UOP. 3. Mild hyperkalemia - K 6.3 on admit, no EKG changes noted. Suspected secondary to ALEISHA. Improved to 5.3 by hospital day 2 with medical management. 4. Paroxysmal Afib - On home Eliquis and Plavix. Continued heparin drip on transfer, last dose of Plavix on morning of 05/17. 5. HTN - Home lisinopril held given ALEISHA as noted above. Chronic medical conditions: - CAD s/p CABG, PAD, h/o of CVA: Continue heparin drip, holding Plavix on transfer for suspected procedure. Not on home statin for unclear reason. - DM2: Home oral regimen held, sliding scale insulin while inpatient. - Obesity: BMI 31 on admit. Complicated hospital course, care and prognosis. Total clinical time spent by myself addressing the patient's discharge needs: 35 minutes. Physical Exam Const alert, oriented x3, no apparent distress, healthy appearing and well nourished General Appearance: cooperative and comfortable HEENT normocephalic, head/scalp atraumatic, hearing grossly normal bilaterally, nasal mucous membranes and turbinates normal and moist oral mucous membranes Eyes PERRL, EOMs intact bilaterally and conjunctivae normal Neck full ROM, no lymphadenopathy and supple Lymph Lymphatic: no lymphadenopathy noted Chest inspection of chest normal Resp normal respiratory effort, normal air movement, no use of accessory muscles and clear to auscultation bilaterally Cardio regular rate, regular rhythm, no murmurs and peripheral pulses 2+ throughout GI normal to inspection, nondistended, normoactive bowel sounds, soft to palpation, non-tender and non-distended Back/Spine normal ROM Extremity no pedal edema Extremity Narrative: Right 4th finger infection spreading to palm noted. Neuro no focal motor deficits and no sensory deficits noted Speech: speech normal Psych mental status grossly normal Weight / BMI Weight Weight: 82.5 kg Body Mass Index (BMI) 31.2 ABG / Lab / Microbiology Data 05/16/23 15:45 05/17/23 04:58 Laboratory: Laboratory Results - last 24 hr 05/16/23 15:45: WBC 12.0 H, RBC 4.32, Hgb 13.0, Hct 39.8, MCV 92.1, MCH 30.1, MCHC 32.7, RDW Std Deviation 45.8 H, RDW Coeff of Monique 13.4, Plt Count 266, MPV 10.2, Immature Gran % (Auto) 2.700 H, Neut % (Auto) 65.3, Lymph % (Auto) 17.6 L, [place] % (Auto) 11.1 H, Eos % (Auto) 2.2, Baso % (Auto) 1.1 H, Absolute Neuts (auto) 7.8 H, Absolute Lymphs (auto) 2.11, Nucleated RBC % 0, Sodium 133 L, Potassium 6.3 H*, Chloride 110 H, Carbon Dioxide 16.0 L, Anion Gap 7, BUN 56 H, Creatinine 2.73 H, Estim Creat Clear Calc 16.68, Est GFR (MDRD) Af Amer 21 L, Est GFR (MDRD) Non-Af 18 L, BUN/Creatinine Ratio 20.5 H, Glucose 197 H, Lactic Acid 1.1, Calcium 9.3 05/16/23 16:54: Potassium Cancelled 05/16/23 17:24: Potassium 5.7 H 05/16/23 23:24: Potassium 5.6 H 05/17/23 01:38: Potassium 5.1 05/17/23 04:58: ESR 62 H, Sodium 135 L, Potassium 5.3 H, Chloride 111 H, Carbon Dioxide 18.0 L, Anion Gap 6, BUN 42 H, Creatinine 2.16 H, Estim Creat Clear Calc 21.08, Est GFR (MDRD) Af Amer 28 L, Est GFR (MDRD) Non-Af 23 L, BUN/Creatinine Ratio 19.4, Glucose 299 H, Calcium 9.8, C-React Prot Ext Range 38.30 H 05/17/23 06:47: POC Glucose 255 H 05/17/23 10:18: PT 16.1 H, INR 1.3, APTT 40.6 H 05/17/23 11:13: POC Glucose 302 H ABG: ABG 05/17/23 01:25 Specimen Type PANCHO Sample Site Not entered VBG pH 7.31 L VBG pO2 68 H VBG HCO3 15 L VBG Total CO2 16 L VBG O2 Sat (Calc) 92 H VBG Base Excess -12 L POC Mix VBG pCO2 Pt Tmp 29.1 L O2 Delivery Device Room Air Radiography Diagnostic Testing: Radiology Impression Finger X-Ray 05/16/23 16:05 IMPRESSION: Hyperflexion angulation of the fourth distal phalanx without acute fracture or destructive cortical lesion. Electronically Signed: Ang Lugo MD at 17:06 EST , D/C Instructions Discharge Diet: No restrictions Weight Bearing Status: Weight bearing as tolerated Meaningful Use Info Meaningful Use Diagnoses (Choose all that apply): None applicable Discharge Plan Admission Admit Date/Time: 05/16/23 20:05 Primary Reason for Your Visit: hand infection Attending Provider: Laurent Leiva Primary Care Provider: Юлия Jean-Baptiste Consulting Providers: Francis Cruz; Alondra Blanchard Discharge Orders/Prescriptions Prescriptions: New heparin (porcine) 5,000 unit/mL Solution 0 unit IV UD PRN (Reason: dose adjustment) Qty: 0 0RF oxycodone 5 mg Tablet 2.5 mg PO Q4H PRN PRN (Reason: Pain Score 4-10) Qty: 0 0RF heparin (porcine) in 5 % dex 25,000 unit/250 mL(100 unit/mL) Parenteral Solution 25,000 unit continuous IV infusion .[id number] Qty: 0 0RF Protocol: Heparin Dosage Nomogram: WEIGHT BASED Condition: Patient Weight (kgs): STANDARD PROTOCOL Dose/Route: Initial Heparin Bolus (Vial: 5000 units/ml) Instruction: Initial Heparin Infusion Rate (25,000 units/250ml D5W) Condition: <50.9kg Dose/Route: 3,500 units (0.7 ml) Instruction: 700 units/hr Condition: 51-60.9 kg Dose/Route: 4,000 units (0.8 ml Instruction: 800 units/hr Condition: 61-70.9 kg Dose/Route: 4,500 units (0.9 ml) Instruction: 1000 units/hr Condition: 71-80.9 kg Dose/Route: 5,000 units (1 ml) Instruction: 1100 units/hr Condition: 81-91 kg Dose/Route: 6,000 units (1.2 ml) Instruction: 1200 units/hr Condition: 92-102 kg Dose/Route: 7,500 units (1.5 ml) Instruction: 1400 units/hr Condition: 103-114 kg Dose/Route: 8,000 units (1.6 ml) Instruction: 1500 units/hr Condition: 115-128 kg Dose/Route: 9,500 units (1.9 ml) Instruction: 1600 units/hr Condition: 129-136 kg Dose/Route: 10,500 units (2.1 ml) Instruction: 1700 units/hr Condition: 137-148 kg Dose/Route: 11,000 units (2.2 ml) Instruction: 1800 units/hr Condition: 149-159 kg Dose/Route: 12,000 units (2.4 ml) Instruction: 1900 units/hr Condition: 160-170 kg Dose/Route: 13,000 units (2.6 ml) Instruction: 2000 units/hr Condition: 171-182 kg Dose/Route: 14,000 units (2.8 ml) Instruction: 2100 units/hr Condition: >182 kg Dose/Route: 15,000 units (3 ml) Instruction: 2200 units/hr Protocol Text: HEPARIN DOSAGE ADJUSTMENT NOMOGRAM Heparin Weight Based: STANDARD PROTOCOL aPTT: <41 Bolus w/Heparin: 3,000 units Stop Heparin infusion: 0 Rate change (units/hr): Increase 200 units (+2ml/hr) Repeat aPTT: 6 hours after rate change aPTT: 41-54 Bolus w/Heparin: 1,000 units Stop Heparin infusion: 0 Rate change (units/hr): Increase 100 units (+1ml/hr) Repeat aPTT: 6 hours after rate change aPTT: 55-79 *GOAL* NOTE: aPTT is NOT at goal therapy unless TWO consecutive aPTT levels are w/in goal range -- Bolus w/Heparin: 0 Stop Heparin infusion: 0 Rate change (units/hr): 0 Repeat aPTT: 6 hours after a aPTT results, unless second aPTT in a row in goal and therapy has ran >24 hours, then next morning aPTT: 80-92 Bolus w/Heparin: 0 Stop Heparin infusion: 0 Rate change (units/hr): Decrease 100 units (-1 ml/hr) Repeat aPTT: 6 hours after rate change aPTT: 93-104 Bolus w/Heparin: 0 Stop Heparin infusion: 1 hour Rate change (units/hr): Decrease 200 units (-2 ml/hr) Repeat aPTT: 6 hours after rate change aPTT: >104 Bolus w/Heparin: 0 Stop Heparin infusion: 2 hours Rate change (units/hr): Decrease 300 units (-3 ml/hr) Repeat aPTT: 6 hours after rate change Is an initial BOLUS dose to be given? No Continued loperamide 2 mg tablet 2 mg PO Q3H PRN (Reason: loose stool) Rx Instructions: administer 2 tablets at first loose stool, then administer 1 tablet every 3 hours as needed after each loose stool until symptoms controlled; do not exceed 8 mg per 24 hrs amlodipine 5 mg Tablet 5 mg PO DAILY Qty: 0 0RF insulin glargine-yfgn 100 unit/mL (3 mL) Insulin Pen 26 unit subcut QPM Qty: 0 0RF Ear Drops (carbamide peroxide) 6.5 % drops 4 drp otic (ear) BID Rx Instructions: INSTILL 4 DROPS INTO RIGHT EAR TWICE DAILY NEEDED FOR 4 DAYS, THEN IRRIGATE ON WITH WARM WATER [id number] Enema 19-7 gram/118 mL enema 118 ml IA DAILY PRN (Reason: constipation) dextrose [Dex4 Glucose] 15 gram/33 gram gel in packet 15 g PO PRN magnesium hydroxide [Milk of Magnesia] 400 mg/5 mL suspension 30 ml PO DAILY PRN (Reason: constipation) alum-mag hydroxide-simeth [Advanced Antacid-Antigas] 200-200-20 mg/5 mL suspension 30 ml PO Q6H PRN (Reason: indigestion) Rx Instructions: NOTIFY PROVIDER IF GIVEN MORE THAN 2 DOSES IN A 24 HOUR PERIOD Dandruff Shampoo (pyrithione) 1 % shampoo 1 applic topical PRN Rx Instructions: APPLY TWICE A WEEK dextromethorphan-guaifenesin [Tussin DM] 10-100 mg/5 mL liquid 10 ml PO Q4H PRN (Reason: cough) Rx Instructions: NOTIFY PROVIDER IF COUGH PERSISTS FOR 48 HOURS acetaminophen 325 mg Tablet 650 mg PO Q6H PRN (Reason: Pain 1-10 Or Fever>100.7) insulin lispro [Humalog KwikPen Insulin] 100 unit/mL Insulin Pen See Protocol subcut ACHS Protocol: 6. Sliding Scale Insulin Custom Condition: mg/dl range Dose/Route: Number of Units Condition: 150-199 Dose/Route: 4 UNITS Condition: 200-249 Dose/Route: 6 UNITS Condition: 250-299 Dose/Route: 8 UNITS Condition: 300-349 Dose/Route: 10 UNITS Condition: 350-400 Dose/Route: 12 UNITS Condition: 400+ Dose/Route: CALL PCP Protocol Text: Custom Sliding Scale Held clopidogrel [Plavix] 75 mg tablet 75 mg PO DAILY Qty: 30 4RF Hold Instructions: Resume on 05/23/23. apixaban 5 mg tablet 5 mg PO BID Qty: 30 0RF Hold Instructions: Resume on 05/23/23. Rx Instructions: start 08/18/2022. lisinopril 10 mg tablet 10 mg PO DAILY Hold Instructions: Resume on 05/23/23. Discontinued sulfamethoxazole-trimethoprim 800-160 mg tablet 1 tab PO BID Rx Instructions: START DATE: 05/12/23 Referrals / Follow Up: Юлия Jean-Baptiste DO [Primary Care Provider] - Disposition Disposition (needs filled in before D/C Order can be placed): Acute Care Hospital Charges/Coding Visit Charges Inpatient E&M: 61284 Disch Hosp >30min
--- NOTE | 2023-05-17 15:19 | NURSING ---
1519 Report called to Nurse Soila @ [facility].
[2023-05-17 17:27] LABS: Partial Thromboplast Time 131.5 Seconds (24.1-36.2)
== END 2023-05-17 17:43 | disposition short-term general hospital (02) | DRG 603 ==
LOC: ED 22:52 → PCU 05-17 05:53
PROVIDERS: Emergency Medicine; Admitting Provider Family Medicine; Emergency Provider Emergency Medicine; PCP Family Medicine; Visit Provider Hospitalist
DX: L03.011 Cellulitis of right finger (principal); I13.0 Hypertensive heart and chronic kidney disease with heart failure and stage 1 through stage 4 chronic kidney disease, or unspecified chronic kidney disease; N17.9 Acute kidney failure, unspecified; E11.42 Type 2 diabetes mellitus with diabetic polyneuropathy; E11.22 Type 2 diabetes mellitus with diabetic chronic kidney disease; I50.9 Heart failure, unspecified; N18.30 Chronic kidney disease, stage 3 unspecified; E11.51 Type 2 diabetes mellitus with diabetic peripheral angiopathy without gangrene; Z79.4 Long term (current) use of insulin; E11.65 Type 2 diabetes mellitus with hyperglycemia; I48.0 Paroxysmal atrial fibrillation; M06.9 Rheumatoid arthritis, unspecified; Z93.2 Ileostomy status; E87.5 Hyperkalemia; E78.00 Pure hypercholesterolemia, unspecified; I25.10 Atherosclerotic heart disease of native coronary artery without angina pectoris; E66.9 Obesity, unspecified; Z79.02 Long term (current) use of antithrombotics/antiplatelets; Z86.73 Personal history of transient ischemic attack (TIA), and cerebral infarction without residual deficits; Z95.1 Presence of aortocoronary bypass graft; Z79.899 Other long term (current) drug therapy; Z90.49 Acquired absence of other specified parts of digestive tract; Z90.710 Acquired absence of both cervix and uterus; Z68.31 Body mass index [BMI] 31.0-31.9, adult
CPT/HCPCS: 36415; 73140; 80048; 82803; 82962; 83605; 84132; 85025; 85610; 85652; 85730; 86140; 87040; 93005; 94640; 97162; 97165; 99284; J7030; J7040; J7050; A4216; J0612; J2405